=== PATIENT | male | born 1960 | race Caucasian/White ===

== ENCOUNTER 2024-06-04 14:09 | Observation (INO) | payer MEDICARE, MEDICAID, SELFPAY ==
[2024-06-04] VITALS (9 sets, daily range): BP systolic 122–136; BP diastolic 70–78; PULSE 68–94; TEMP 36.4–36.7; O2SAT 66–99; BMI 31.4; BMI 32.5
--- NOTE | 2024-06-04 14:24 | US_ITS ---
The [address] [address] Patient Name: ROD KAYE MRN: [id number] date: 1960 Sex: M Assigned Patient Location: ED.MAIN Current Patient Location: ER Accession/Order Number: [id number] Exam Date: 06/04/2024 14:30 Report Date: 06/04/2024 15:52 At the request of: FANNIE PEDRO Procedure: US renal bladder EXAMINATION: US renal bladder HISTORY: kidney stone hx flank pain us kidney and bladder COMPARISON: No relevant comparison available. TECHNIQUE: Ultrasound examination was performed of the kidneys and urinary bladder. FINDINGS: RIGHT KIDNEY: Moderate hydronephrosis. Moderate cortical thinning, 6 mm in thickness. Contain several nonobstructing small stones. Thinly septated, slightly complex 4.1 cm cyst projecting from mid body. Color Doppler demonstrates blood flow within the kidney. Kidney: 12.4 x 5.1 x 7.0 cm LEFT KIDNEY: Contains a nonobstructing 3 mm stone. Normal parenchymal echogenicity. Color Doppler demonstrates blood flow within the kidney. Kidney: 11.2 x 4.8 x 6.0 cm BLADDER: No visible wall thickening, mass, or calculi. URETERAL JETS: No right ureteral jet. Visualized on left. US/US renal bladder IMPRESSION: 1. Moderate right hydronephrosis and absence of a right ureteral jet within the urinary bladder suggests ureteral obstruction. 2. Bilateral nephrolithiasis. Electronically authenticated by: ALFREDO LEWIS Date: 06/04/2024 15:52
[2024-06-04] MEDS: KETOROLAC TROMETHAMINE 30 MG/ML VIAL IVP (14:33)
[2024-06-04] MEDS: ONDANSETRON PF 4 MG/2 ML VIAL IV (14:34)
[2024-06-04] MEDS: FAMOTIDINE/PF 20 MG/2 ML VIAL IV (14:34)
[2024-06-04] MEDS: 0.9 % SODIUM CHLORIDE 1,000 ML 1000 ML IV (14:34)
[2024-06-04 14:43] LABS: Basophils Percent Auto 0.3 % (0.2-2.0); Eosinophils Absolute Auto 0.1 10^3/uL (0.0-0.7); Eosinophils Percent Auto 0.6 % (0.9-7.0); Hematocrit 45.5 % (42.0-54.0); Hemoglobin 14.9 g/dL (14.0-18.0); Immature Granulocytes Abs Auto 0.04 10^3/uL (0.00-0.03); Immature Granulocytes Pct Auto 0.3 % (0.0-0.5); Lymphocytes Absolute Auto 1.9 10^3/uL (1.2-3.8); Lymphocytes Percent Auto 13.8 % (20.5-60.0); Mean Corpuscular HGB Conc 32.7 g/dL (29.9-35.2); Mean Corpuscular Hemoglobin 30.3 pg (25.9-34.0); Mean Corpuscular Volume 92.7 fL (80.0-94.0); Monocytes Absolute Auto 1.2 10^3/uL (0.3-0.8); Monocytes Percent Auto 8.2 % (1.7-12.0); Neutrophils Absolute Auto 10.7 10^3/uL (1.4-6.5); Neutrophils Percent Auto 76.8 % (43.0-75.0); Platelet Count 256 10^3/uL (150-450); Red Blood Count 4.91 10^6/uL (4.70-6.10); Red Cell Distribution Width 14.2 % (11.0-15.0)
--- NOTE | 2024-06-04 14:44 | ED.GENADUL1 ---
HPI HPI - General Adult General Chief complaint: Abdominal Pain Stated complaint: LOWER BACK PAIN Time Seen by Provider: 06/04/24 14:13 Source: patient Mode of arrival: ambulance Limitations: no limitations History of Present Illness HPI narrative: Patient is coming to the ER with 3 days history of right lower back pain as well as flank pain that radiating to the front of his abdomen. Patient mentioned that he have a history of kidney stone he usually follow-up with Dr. Heath but this been a while He denies any blood in urine, he mentioned he have some nausea denying any vomiting No history of trauma or fall Related Data Home Medications ?Medication ?Instructions ?Recorded ?Confirmed alprazolam 0.5 mg tablet 0.5 mg PO TID PRN anxiety 06/04/24 06/04/24 amlodipine 5 mg tablet 5 mg PO DAILY 06/04/24 06/04/24 aspirin 81 mg tablet,delayed 81 mg PO DAILY 06/04/24 06/04/24 release canagliflozin 100 mg tablet 100 mg PO DAILY 06/04/24 06/04/24 (Invokana) ergocalciferol (vitamin D2) 1,250 1,250 mcg PO QWEEK 06/04/24 06/04/24 mcg (50,000 unit) capsule glimepiride 1 mg tablet 1 mg PO DAILY 06/04/24 06/04/24 hydrocodone 5 mg-acetaminophen 325 1 tab PO Q4H PRN pain 06/04/24 06/04/24 mg tablet losartan 100 mg tablet 100 mg PO DAILY 06/04/24 06/04/24 omeprazole 20 mg capsule,delayed 20 mg PO DAILY 06/04/24 06/04/24 release propranolol 80 mg capsule,24 80 mg PO Q24H 06/04/24 06/04/24 hr,extended release semaglutide 14 mg tablet (Rybelsus) 14 mg PO DAILY 06/04/24 06/04/24 Allergies Allergy/AdvReac Type Severity Reaction Status Date / Time No Known Drug Allergies Allergy Verified 06/04/24 14:12 Opioid HPI Opioid Management Most Recent Opioid Data: Last Pain Scale 8 06/04/24 16:53 Last MAR Pain Assessment 06/04/24 16:53 Review of Systems ROS Status of ROS 10 or more systems reviewed and unremarkable except as noted in history and below [facility] Medical History (Updated 06/04/24 @ 16:38 by Amy Pelaez MD) History of diabetes mellitus ?Z86.39 - Personal history of other endocrine, nutritional and metabolic disease (ICD-10) History of hypertension ?Z86.79 - Personal history of other diseases of the circulatory system (ICD-10) History of kidney stones ?Z87.442 - Personal history of urinary calculi (ICD-10) Exam Narrative Exam Narrative: Nurses notes and vital signs reviewed and patient is not hypoxic. General: Well-appearing and in no apparent distress. Skin: Warm, dry, no pallor noted. No rash. Head: Normocephalic, atraumatic. Neck: Supple, non-tender. Eye: Pupils are equal, round and EOMI. No scleral icterus. Ears, Nose, Mouth, and Throat: TM are clear, no nasal mucosal hypertrophy. Oral mucosa is moist, no posterior oropharynx erythema, uvula is mid-line Cardiovascular: Regular Rate and Rhythm without murmur, gallop or rub. Respiratory: No accessory muscle use or respiratory distress. Lungs are clear to auscultation, no wheezing, rales or rhonchi Chest Wall: no tenderness Back: No midline thoracic or lumbar vertebral tenderness. Right CVA tenderness Musculoskeletal: normal ROM, no calf or popliteal tenderness, no lower extremity edema/swelling GI: Abdomen is soft, non-distended. Normal bowel sounds. No masses appreciated. No tenderness to palpation. No rebound, guarding, or rigidity noted. Neurological: A&O x4. No cranial nerve dysfunction observed. No truncal ataxia. Moves all extremities. Sensation intact. Psychiatric: Cooperative and interactive. Normal mood and affect. Constitutional Vital Signs, click to edit/add: Last Vital Signs Temp 98.1 F 06/04/24 14:12 Pulse 77 06/04/24 16:55 Resp 16 06/04/24 16:55 BP 131/70 06/04/24 16:55 Pulse Ox 97 06/04/24 16:55 O2 Del Method Room Air 06/04/24 16:55 Course Vital Signs Vital signs: Vital Signs Temperature 98.1 F 06/04/24 14:12 Pulse Rate 79 06/04/24 14:12 Respiratory Rate 20 06/04/24 14:12 Blood Pressure 136/70 06/04/24 14:12 Pulse Oximetry 96 06/04/24 14:12 Oxygen Delivery Method Room Air 06/04/24 14:12 Temperature 98.1 F 06/04/24 14:12 Pulse Rate 77 06/04/24 16:55 Respiratory Rate 16 06/04/24 16:55 Blood Pressure 131/70 06/04/24 16:55 Pulse Oximetry 97 06/04/24 16:55 Oxygen Delivery Method Room Air 06/04/24 16:55 Medical Decision Making MDM Narrative Medical decision making narrative: The patient CBC shows mild leukocytosis mostly is reactive Chemistry shows a chronic kidney disease although the patient mentioned that he does have a history of chronic kidney disease with no specific stage The patient pain was controlled with morphine 4 mg IV but it not enough and we have to give him Dilaudid 0.5 mg Ultrasound of the kidney that was done because the CAT scan is down shows hydronephrosis moderate on the right side I spoke with Dr. Shi after obtaining an ultrasound and explained to him that the patient have intractable pain specially that he was using Percocet at home with no effect of that on his pain In addition to the patient history of chronic kidney disease we want to make sure that there is no further damage with an immediate evaluation by urology And the plan was to admit under the hospitalist care Patient case was discussed with Dr. Ordaz and he agreed on admitting the patient Lab Data Labs: Lab Results 06/04/24 06/04/24 Range/Units 14:35 15:48 WBC 14.0 H (4.0-11.0) 10^3/uL RBC 4.91 (4.70-6.10) 10^6/uL Hgb 14.9 (14.0-18.0) g/dL Hct 45.5 (42.0-54.0) % MCV 92.7 (80.0-94.0) fL MCH 30.3 (25.9-34.0) pg MCHC 32.7 (29.9-35.2) g/dL RDW 14.2 (11.0-15.0) % Plt Count 256 (150-450) 10^3/uL MPV 10.0 (9.5-13.5) fL Neut % (Auto) 76.8 H (43.0-75.0) % Lymph % (Auto) 13.8 L (20.5-60.0) % [place] % (Auto) 8.2 (1.7-12.0) % Eos % (Auto) 0.6 L (0.9-7.0) % Baso % (Auto) 0.3 (0.2-2.0) % Neut # (Auto) 10.7 H (1.4-6.5) 10^3/uL Lymph # (Auto) 1.9 (1.2-3.8) 10^3/uL [place] # (Auto) 1.2 H (0.3-0.8) 10^3/uL Eos # (Auto) 0.1 (0.0-0.7) 10^3/uL Baso # (Auto) 0.0 (0.0-0.1) 10^3/uL Abs Immat Gran (auto) 0.04 H (0.00-0.03) 10^3/uL Imm/Tot Granulo (auto) 0.3 (0.0-0.5) % Sodium 141 (136-145) mmol/L Potassium 4.1 (3.5-5.1) mmol/L Chloride 108 H (98-107) mmol/L Carbon Dioxide 16.9 L (21.0-32.0) mmol/L Anion Gap 20.2 BUN 24.0 H (7.0-18.0) mg/dL Creatinine 1.91 H (0.70-1.30) mg/dL Est GFR ( Amer) 43 L (>=60) Est GFR (Non-Af Amer) 36 L (>=60) BUN/Creatinine Ratio 12.6 Glucose 153 H (74-106) mg/dL Calcium 9.1 (8.5-10.1) mg/dL Total Bilirubin 0.6 (0.2-1.0) mg/dL AST 16 (15-37) U/L ALT 31 (16-63) U/L Alkaline Phosphatase 112 (46-116) U/L Total Protein 7.3 (6.4-8.2) g/dL Albumin 3.7 (3.4-5.0) g/dL Globulin 3.6 g/dL Albumin/Globulin Ratio 1.0 Urine Color Yellow (YELLOW) Urine Clarity Clear (CLEAR) Urine pH 5.5 (5.0-9.0) Ur Specific [place] 1.025 (1.005-1.025) Urine Protein Trace (NEG/TRACE) mg/dL Urine Glucose (UA) >=1000 A (NEGATIVE) mg/dL Urine Ketones Negative (NEGATIVE) mg/dL Urine Occult Blood Moderate A (NEGATIVE) Urine Nitrite Negative (NEGATIVE) Urine Bilirubin Negative (NEGATIVE) Urine Urobilinogen 1.0 (0.2-1.0) EU/dL Ur Leukocyte Esterase Negative (NEGATIVE) Urine RBC 10-20 A (0-2) #/HPF Urine WBC 0-2 A (NONE SEEN) #/HPF Ur Squamous Epith Cells Rare (NONE/RARE) #/LPF Urine Crystals None seen (None Seen) #/HPF Urine Bacteria Trace A (NONE SEEN) #/HPF Urine Casts Seen A (NONE SEEN) #/LPF Hyaline Casts Rare Urine Mucus Trace A (NONE SEEN) Ur Culture Indicated? No Discharge Plan Discharge Chief Complaint: Abdominal Pain Clinical Impression: Intractable abdominal pain Hydronephrosis Qualifiers: Hydronephrosis type: with renal calculous obstruction Qualified Code(s): N13.2 - Hydronephrosis with renal and ureteral calculous obstruction CKD (chronic kidney disease) Qualifiers: Chronic kidney disease stage: unspecified stage Qualified Code(s): N18.9 - Chronic kidney disease, unspecified Patient Disposition: Admitted As Inpatient Time of Disposition Decision: 16:38
[2024-06-04 15:05] LABS: Alanine Aminotransferase 31 U/L (16-63); Albumin Level 3.7 g/dL (3.4-5.0); Alkaline Phosphatase 112 U/L (46-116); Anion Gap 20.2; Aspartate Amino Transferase 16 U/L (15-37); BUN Creatinine Ratio 12.6; Bilirubin Total 0.6 mg/dL (0.2-1.0); Calcium 9.1 mg/dL (8.5-10.1); Carbon Dioxide 16.9 mmol/L (21.0-32.0); Chloride 108 mmol/L (98-107); Estimated GFR (African America 43 (>=60); Estimated GFR (Non-African Ame 36 (>=60); Globulin 3.6 g/dL; Glucose 153 mg/dL (74-106); Potassium 4.1 mmol/L (3.5-5.1); Sodium 141 mmol/L (136-145); Total Protein 7.3 g/dL (6.4-8.2)
[2024-06-04] MEDS: MORPHINE SULFATE 4 MG/ML VIAL IV (15:13)
[2024-06-04 15:55] LABS: Bilirubin Urine NEGATIVE (NEGATIVE); Blood Urine MODERATE (NEGATIVE); Clarity Urine CLEAR (CLEAR); Color Urine YELLOW (YELLOW); Glucose Urine UA >=1000 mg/dL (NEGATIVE); Ketones Urine NEGATIVE (NEGATIVE); Leukocyte Esterase Urine NEGATIVE (NEGATIVE); Nitrite Urine NEGATIVE (NEGATIVE); Protein Urine TRACE mg/dL (NEG/TRACE); Specific Gravity Urine 1.025 (1.005-1.025); pH Urine 5.5 (5.0-9.0)
[2024-06-04 15:56] LABS: Urine Microscopic Indicated YES
[2024-06-04 16:11] LABS: Bacteria Urine TRACE #/HPF (NONE SEEN); Crystals Seen? None Seen #/HPF (None Seen); Mucus Urine TRACE (NONE SEEN); Squamous Epithelial Cell Urine RARE #/LPF (NONE/RARE); WBC Urine 0-2 #/HPF (NONE SEEN)
[2024-06-04 16:12] LABS: Cast Seen? SEEN #/LPF (NONE SEEN); Hyaline Casts Urine RARE; Urine Culture Indicated NO
[2024-06-04] MEDS: HYDROMORPHONE HCL 0.5 MG/0.5 ML SYRINGE IV ×2 (16:53→21:02)
--- NOTE | 2024-06-04 18:19 | P.HP_ITS ---
HPI H&P: HPI History of Present Illness Chief complaint: Low Back Pain,Rt Hydronephoris,Chronic Kidney Dis Narrative: Patient presented to the emergency room with right flank pain. He does have a history of nephrolithiasis. He has had lithotripsy on the left side in the past. He had a known stone in the right side. Started having increasing pain consistent with his passing a kidney stone. He states the kidney stone on the right side is 13 mm in size. In ER patient had ultrasound, unable to do CT due to equipment malfunction, ultrasound does confirm the hydronephrosis which is likely result of him trying to pass the large kidney stone. Patient admitted for surgical intervention tomorrow. When I saw patient in the emergency room, he was fairly comfortable and but had already been medicated with significant pain medications. Described his long history of nephrolithiasis. Also has a history of chronic kidney disease stage IV-his creatinine in ER really not too bad for stage IV. Patient will be admitted for workup and treatment of the nephrolithiasis. Opioid HPI Opioid Management Most Recent Pain and Opioid Data: Last Pain Scale 8 06/04/24 16:53 Last MAR Pain Assessment 06/04/24 16:53 Last ORT Total Score 6 06/04/24 18:31 Last ORT Risk Category Moderate Risk 06/04/24 18:31 Review of Systems ROS Status of ROS 10 or more systems reviewed and unremark able except as noted in history and below PFSH PFSH Medical History (Updated 06/04/24 @ 18:22 by Marisol Lacey) Hyperlipidemia ?E78.5 - Hyperlipidemia, unspecified (ICD-10) Chronic kidney disease (CKD) ?N18.9 - Chronic kidney disease, unspecified (ICD-10) CVA (cerebral vascular accident) ?I63.9 - Cerebral infarction, unspecified (ICD-10) History of diabetes mellitus ?Z86.39 - Personal history of other endocrine, nutritional and metabolic disease (ICD-10) History of hypertension ?Z86.79 - Personal history of other diseases of the circulatory system (ICD-10) History of kidney stones ?Z87.442 - Personal history of urinary calculi (ICD-10) Surgical History (Updated 06/04/24 @ 18:22 by Marisol Lacey) H/O lithotripsy ?Z98.890 - Other specified postprocedural states (ICD-10) Family History (Updated 06/04/24 @ 18:24 by Marisol Lacey) Brother Family history of diabetes mellitus Social History (Updated 06/04/24 @ 18:25 by Marisol Lacey) Within the past year, how often did you have a drink containing alcohol: never Within the past year, how often did you have six or more drinks on one occasion: never Score interpretation: A score less than 4 is consistent with normal alcohol consumption. Smoking status: Former smoker Non-prescribed substance use: denies use Previous occupational history: disability Highest level of school completed/degree received: Bachelor's degree Are you now , , , , never or living with a partner: In a typical week, how many times do you talk on the telephone with family, friends, or neighbors: never How often do you get together with friends or relatives: never How often do you attend yazidi or yarsanism services: never Do you belong to any clubs or organizations such as yazidi groups unions, [email or web address] or athletic groups, or school groups: no Total score: 0 Score interpretation: A score of less than or equal to 1 indicates the most socially isolated. Little interest or pleasure in doing things: not at all Feeling down, depressed, or hopeless: not at all Feel stressed/tense/nervous/anxious/difficulty sleeping: not at all Gender Identity: male Meds Home Medications and Allergies Home Medications ?Medication ?Instructions ?Recorded ?Confirmed ?Type alprazolam 0.5 mg tablet 0.5 mg PO TID PRN anxiety 06/04/24 06/04/24 History amlodipine 5 mg tablet 5 mg PO DAILY 06/04/24 06/04/24 History aspirin 81 mg tablet,delayed 81 mg PO DAILY 06/04/24 06/04/24 History release atorvastatin 40 mg tablet 40 mg PO .qhs 06/04/24 06/04/24 History canagliflozin 100 mg tablet 100 mg PO DAILY 06/04/24 06/04/24 History (Invokana) ergocalciferol (vitamin D2) 1,250 1,250 mcg PO QWEEK 06/04/24 06/04/24 History mcg (50,000 unit) capsule glimepiride 1 mg tablet 1 mg PO DAILY 06/04/24 06/04/24 History hydrocodone 5 mg-acetaminophen 325 2 tab PO Q4H PRN pain 06/04/24 06/04/24 History mg tablet losartan 100 mg tablet 100 mg PO DAILY 06/04/24 06/04/24 History omeprazole 20 mg capsule,delayed 20 mg PO DAILY 06/04/24 06/04/24 History release propranolol 80 mg capsule,24 80 mg PO Q24H 06/04/24 06/04/24 History hr,extended release semaglutide 14 mg tablet (Rybelsus) 14 mg PO DAILY 06/04/24 06/04/24 History Allergies Allergy/AdvReac Type Severity Reaction Status Date / Time No Known Drug Allergies Allergy Verified 06/04/24 14:12 Exam Constitutional Vital Signs, click to edit/add: Last Vital Signs Temp 98.1 F 06/04/24 14:12 Pulse 77 06/04/24 16:55 Resp 16 06/04/24 16:55 BP 131/70 06/04/24 16:55 Pulse Ox 97 06/04/24 16:55 O2 Del Method Room Air 06/04/24 16:55 Documenting provider has reviewed patient's vital signs: yes Common normals: no apparent distress (No distress, he had been medicated already) Chest Common normals: inspection of chest normal Respiratory Common normals: normal respiratory effort and no retractions Cardio Common normals: regular rate, regular rhythm and S1 normal heart sound GI Common normals: Normal to inspection, nondistended, normoactive bowel sounds present Neuro Common normals: oriented x3, CN's II-XII intact bilaterally and moves all extremities Results Labs Labs: Short CBC 06/04/24 Range/Units 14:35 WBC 14.0 H (4.0-11.0) 10^3/uL Hgb 14.9 (14.0-18.0) g/dL Hct 45.5 (42.0-54.0) % Plt Count 256 (150-450) 10^3/uL BMP 06/04/24 14:35 Sodium 141 Potassium 4.1 Chloride 108 H Carbon Dioxide 16.9 L BUN 24.0 H Creatinine 1.91 H Glucose 153 H Calcium 9.1 Liver Function 06/04/24 Range/Units 14:35 Total Bilirubin 0.6 (0.2-1.0) mg/dL AST 16 (15-37) U/L ALT 31 (16-63) U/L Alkaline Phosphatase 112 (46-116) U/L Albumin 3.7 (3.4-5.0) g/dL Urine 06/04/24 Range/Units 15:48 Urine Color Yellow (YELLOW) Urine Clarity Clear (CLEAR) Urine pH 5.5 (5.0-9.0) Ur Specific [place] 1.025 (1.005-1.025) Urine Protein Trace (NEG/TRACE) mg/dL Urine Glucose (UA) >=1000 A (NEGATIVE) mg/dL Assessment and Plan Assessment and Plan (1) Intractable abdominal pain: (2) CKD (chronic kidney disease): Qualifiers: Chronic kidney disease stage: unspecified stage Qualified Code(s): N18.9 - Chronic kidney disease, unspecified (3) Hydronephrosis: Qualifiers: Hydronephrosis type: with renal calculous obstruction Qualified Code(s): N13.2 - Hydronephrosis with renal and ureteral calculous obstruction Plan Admission findings: Leukocytosis and elevated BUN and creatinine, probably at his baseline, intractable right flank pain secondary to nephrolithiasis which is resulted in moderate hydronephrosis-IV fluids, Levsin, Flomax, consultation to urology for likely intervention tomorrow. Nephrolithiasis-plan as outlined above Leukocytosis-this may be pain related, but with significant hydronephrosis will start patient on antibiotics pending blood and urine cultures. Check lactate Chronic kidney disease stage IV-his creatinine is actually pretty good for that. Monitor daily. Hypertension-continue with home medications NIDDM-insulin sliding scale holding diabetes medications tonight as he will be n.p.o. at midnight History of CVA with resultant right-sided weakness-much improved from previous this is about 5 years ago Admission status: Patient with current history of nephrolithiasis. Likely surgical intervention tomorrow. Likely discharge home tomorrow. With medically necessary treatment only spanning 1 midnight. Observation status.
[2024-06-04 18:40] LABS: Lactate/Lactic Acid 1.9 mmol/L (0.4-2.0)
[2024-06-04] MEDS: TRAMADOL HCL 50 MG TABLET PO (19:38)
[2024-06-04] MEDS: LACTATED RINGER'S SOLUTION 1,000 ML 100 ML IV (19:38)
[2024-06-04 20:18] LABS: Glucometer 126 mg/dL (74-106)
[2024-06-04] MEDS: CEFTRIAXONE 1,000 MG in 0.9 % SODIUM CHLORIDE 50 ML 100 MG IV (21:01)
[2024-06-04] MEDS: ALPRAZOLAM 0.5 MG TABLET PO (21:02)
[2024-06-04] MEDS: TAMSULOSIN HCL 0.4 MG CAPSULE PO (21:02)
[2024-06-04] MEDS: HYOSCYAMINE SULFATE 0.125 MG TAB.SUBL 0.25 MG SL (21:02)
[2024-06-04] MEDS: ATORVASTATIN CALCIUM 40 MG TABLET PO (21:02)
[2024-06-05] VITALS (20 sets, daily range): BP systolic 111–137; BP diastolic 66–87; PULSE 62–97; TEMP 36.6–36.8; O2SAT 91–97
--- NOTE | 2024-06-05 | FL_ITS ---
[address] [address] Patient Name: ROD KAYE MRN: [id number] date: 1960 Sex: M Assigned Patient Location: [place] Current Patient Location: [place] Accession/Order Number: [id number] Exam Date: 06/05/2024 12:30 Report Date: 06/16/2024 08:18 At the request of: LEXA ANAYA Procedure: FL fluoroscopy <1hr NON-READ EXAM: FL fluoroscopy <1hr NON-READ HISTORY: TECHNIQUE: FINDINGS: Please see Operative Report. Electronically authenticated by: RADIOLOGIST NO Date: 06/16/2024 08:18
[2024-06-05] MEDS: HYDROMORPHONE HCL 0.5 MG/0.5 ML SYRINGE IV ×2 (01:07→08:21)
[2024-06-05 05:41] LABS: Basophils Absolute Auto 0.1 10^3/uL (0.0-0.1); Basophils Percent Auto 0.5 % (0.2-2.0); Eosinophils Absolute Auto 0.2 10^3/uL (0.0-0.7); Eosinophils Percent Auto 1.7 % (0.9-7.0); Hematocrit 43.1 % (42.0-54.0); Hemoglobin 13.4 g/dL (14.0-18.0); Immature Granulocytes Abs Auto 0.02 10^3/uL (0.00-0.03); Immature Granulocytes Pct Auto 0.2 % (0.0-0.5); Lymphocytes Absolute Auto 2.7 10^3/uL (1.2-3.8); Lymphocytes Percent Auto 29.6 % (20.5-60.0); Mean Corpuscular HGB Conc 31.1 g/dL (29.9-35.2); Mean Corpuscular Hemoglobin 30.5 pg (25.9-34.0); Mean Platelet Volume 10.2 fL (9.5-13.5); Monocytes Percent Auto 10.5 % (1.7-12.0); Neutrophils Absolute Auto 5.3 10^3/uL (1.4-6.5); Neutrophils Percent Auto 57.5 % (43.0-75.0); Platelet Count 165 10^3/uL (150-450); Red Cell Distribution Width 14.4 % (11.0-15.0); White Blood Count 9.3 10^3/uL (4.0-11.0)
[2024-06-05 05:56] LABS: Alanine Aminotransferase 23 U/L (16-63); Albumin Globulin Ratio 0.9; Albumin Level 3.1 g/dL (3.4-5.0); Alkaline Phosphatase 92 U/L (46-116); Anion Gap 16.1; Aspartate Amino Transferase 14 U/L (15-37); BUN Creatinine Ratio 12.2; Bilirubin Total 0.3 mg/dL (0.2-1.0); Calcium 8.4 mg/dL (8.5-10.1); Carbon Dioxide 20.3 mmol/L (21.0-32.0); Chloride 110 mmol/L (98-107); Estimated GFR (African America 42 (>=60); Estimated GFR (Non-African Ame 34 (>=60); Globulin 3.3 g/dL; Glucose 110 mg/dL (74-106); Potassium 4.4 mmol/L (3.5-5.1); Sodium 142 mmol/L (136-145); Total Protein 6.4 g/dL (6.4-8.2)
[2024-06-05] MEDS: LACTATED RINGER'S SOLUTION 1,000 ML 100 ML IV (06:05)
[2024-06-05] MEDS: HYOSCYAMINE SULFATE 0.125 MG TAB.SUBL 0.25 MG SL (06:06)
[2024-06-05] MEDS: OMEPRAZOLE 20 MG CAPSULE.DR PO (06:06)
[2024-06-05] MEDS: ALPRAZOLAM 0.5 MG TABLET PO (06:10)
[2024-06-05 07:36] LABS: Glucometer 101 mg/dL (74-106)
--- NOTE | 2024-06-05 08:19 | P.DS_ITS ---
DS: Providers Provider Date of admission: 06/04/24 18:05 Primary care physician: GANGA HERNANDEZ Consults: 06/04/24 16:35 Consult to Urology Routine Consulting Provider: Norris Shi Reason for consultation: hydronephrosis Has provider been notified: Yes 06/04/24 18:13 Consult to Pharmacy Routine Consulting Provider: Reason for consultation: Please [place] me when Med Rec is Updated Has provider been notified: No Consult to Urology Routine Consulting Provider: Norris Shi Reason for consultation: Kidney stone Has provider been notified: Yes DS: Diagnosis Discharge Diagnosis (1) Intractable abdominal pain: (2) CKD (chronic kidney disease): Qualifiers: Chronic kidney disease stage: unspecified stage Qualified Code(s): N18.9 - Chronic kidney disease, unspecified (3) Hydronephrosis: Qualifiers: Hydronephrosis type: with renal calculous obstruction Qualified Code(s): N13.2 - Hydronephrosis with renal and ureteral calculous obstruction Plan Admission findings: Leukocytosis and elevated BUN and creatinine, probably at his baseline, intractable right flank pain secondary to nephrolithiasis which is resulted in moderate hydronephrosis-IV fluids, Levsin, Flomax, consultation to urology for likely intervention today Nephrolithiasis-plan as outlined above Leukocytosis-resolved at dc Chronic kidney disease stage IV-his creatinine is actually pretty good for that. Monitor daily. Hypertension-continue with home medications NIDDM-insulin sliding scale holding diabetes medications tonight as he will be n.p.o. at midnight History of CVA with resultant right-sided weakness-much improved from previous this is about 5 years ago Admission status: Patient with current history of nephrolithiasis. Likely surgical intervention tomorrow. Likely discharge home tomorrow. With medically necessary treatment only spanning 1 midnight. Observation status. DS: Summary Hospital Course Hospital Course: Admission findings: Leukocytosis and elevated BUN and creatinine, probably at his baseline, intractable right flank pain secondary to nephrolithiasis which is resulted in moderate hydronephrosis-treated overnight with IV fluids, we did start IV antibiotics secondary to the significant leukocytosis with left shift, he received Rocephin, CT scan today did show a 10 mm obstructing stone. Plan is for surgical intervention later today. If stable after that procedure and no further testing necessary from a urology standpoint, he will be discharged to home in improving condition. Medications see list. Follow-up with his PCP within the next week. Time Spent with Patient Time attestation: Total time spent providing and/or coordinating discharge services: Exam Constitutional Vital Signs, click to edit/add: Last Vital Signs Temp 98.2 F 06/05/24 07:36 Pulse 80 06/05/24 07:36 Resp 16 06/05/24 07:36 BP 137/81 06/05/24 07:36 Pulse Ox 96 06/05/24 07:36 O2 Del Method Room Air 06/05/24 07:36 Documenting provider has reviewed patient's vital signs: yes Common normals: no apparent distress (Received pain medications about 5 hours ago) Chest Common normals: inspection of chest normal Respiratory Common normals: normal respiratory effort and no retractions Cardio Common normals: regular rate, regular rhythm and S1 normal heart sound GI Common normals: Normal to inspection, nondistended, normoactive bowel sounds present Neuro Common normals: oriented x3, CN's II-XII intact bilaterally and moves all extremities DS: Data Data Completed and Pending Labs on day of discharge: Labs from last 24 hours 06/05/24 06/05/24 06/04/24 07:35 05:29 20:17 WBC 9.3 RBC 4.40 L Hgb 13.4 L Hct 43.1 MCV 98.0 H MCH 30.5 MCHC 31.1 RDW 14.4 Plt Count 165 MPV 10.2 Neut % (Auto) 57.5 Lymph % (Auto) 29.6 [place] % (Auto) 10.5 Eos % (Auto) 1.7 Baso % (Auto) 0.5 Neut # (Auto) 5.3 Lymph # (Auto) 2.7 [place] # (Auto) 1.0 H Eos # (Auto) 0.2 Baso # (Auto) 0.1 Abs Immat Gran (auto) 0.02 Imm/Tot Granulo (auto) 0.2 Sodium 142 Potassium 4.4 Chloride 110 H Carbon Dioxide 20.3 L Anion Gap 16.1 BUN 24.0 H Creatinine 1.96 H Est GFR ( Amer) 42 L Est GFR (Non-Af Amer) 34 L BUN/Creatinine Ratio 12.2 Glucose 110 H Lactate Calcium 8.4 L Total Bilirubin 0.3 AST 14 L ALT 23 Alkaline Phosphatase 92 Total Protein 6.4 Albumin 3.1 L Globulin 3.3 Albumin/Globulin Ratio 0.9 Urine Color Urine Clarity Urine pH Ur Specific [place] Urine Protein Urine Glucose (UA) Urine Ketones Urine Occult Blood Urine Nitrite Urine Bilirubin Urine Urobilinogen Ur Leukocyte Esterase Urine RBC Urine WBC Ur Squamous Epith Cells Urine Crystals Urine Bacteria Urine Casts Hyaline Casts Urine Mucus Ur Culture Indicated? POC Glucose 101 126 H 06/04/24 06/04/24 15:48 14:35 WBC 14.0 H RBC 4.91 Hgb 14.9 Hct 45.5 MCV 92.7 MCH 30.3 MCHC 32.7 RDW 14.2 Plt Count 256 MPV 10.0 Neut % (Auto) 76.8 H Lymph % (Auto) 13.8 L [place] % (Auto) 8.2 Eos % (Auto) 0.6 L Baso % (Auto) 0.3 Neut # (Auto) 10.7 H Lymph # (Auto) 1.9 [place] # (Auto) 1.2 H Eos # (Auto) 0.1 Baso # (Auto) 0.0 Abs Immat Gran (auto) 0.04 H Imm/Tot Granulo (auto) 0.3 Sodium 141 Potassium 4.1 Chloride 108 H Carbon Dioxide 16.9 L Anion Gap 20.2 BUN 24.0 H Creatinine 1.91 H Est GFR ( Amer) 43 L Est GFR (Non-Af Amer) 36 L BUN/Creatinine Ratio 12.6 Glucose 153 H Lactate 1.9 Calcium 9.1 Total Bilirubin 0.6 AST 16 ALT 31 Alkaline Phosphatase 112 Total Protein 7.3 Albumin 3.7 Globulin 3.6 Albumin/Globulin Ratio 1.0 Urine Color Yellow Urine Clarity Clear Urine pH 5.5 Ur Specific [place] 1.025 Urine Protein Trace Urine Glucose (UA) >=1000 A Urine Ketones Negative Urine Occult Blood Moderate A Urine Nitrite Negative Urine Bilirubin Negative Urine Urobilinogen 1.0 Ur Leukocyte Esterase Negative Urine RBC 10-20 A Urine WBC 0-2 A Ur Squamous Epith Cells Rare Urine Crystals None seen Urine Bacteria Trace A Urine Casts Seen A Hyaline Casts Rare Urine Mucus Trace A Ur Culture Indicated? No POC Glucose Discharge Plan Discharge Disposition: Home, Self-Care Discharge Medications: Continued alprazolam 0.5 mg tablet 0.5 mg PO TID PRN (Reason: anxiety) amlodipine 5 mg tablet 5 mg PO DAILY hydrocodone-acetaminophen 5-325 mg tablet 2 tab PO Q4H PRN (Reason: pain) glimepiride 1 mg tablet 1 mg PO DAILY omeprazole 20 mg capsule,delayed release(DR/EC) 20 mg PO DAILY Rybelsus 14 mg tablet 14 mg PO DAILY ergocalciferol (vitamin D2) 1,250 mcg (50,000 unit) capsule 1,250 mcg PO QWEEK Invokana 100 mg tablet 100 mg PO DAILY propranolol 80 mg capsule,extended release 24 hr 80 mg PO Q24H losartan 100 mg tablet 100 mg PO DAILY aspirin 81 mg tablet,delayed release (DR/EC) 81 mg PO DAILY atorvastatin 40 mg tablet 40 mg PO .[facility] Print Language: Hungarian Forms: Portal Instructions
--- NOTE | 2024-06-05 08:20 | CT_ITS ---
[address] [address] Patient Name: ROD KAYE MRN: [id number] date: 1960 Sex: M Assigned Patient Location: [place] Current Patient Location: Accession/Order Number: [id number] Exam Date: 06/05/2024 08:35 Report Date: 06/05/2024 09:09 At the request of: LEXA ANAYA Procedure: CT abdomen pelvis wo con EXAMINATION: CT abdomen pelvis wo con HISTORY: Dr Shi requested for kidney stone COMPARISON: No relevant comparison available. TECHNIQUE: Axial, Coronal, and Sagittal images were obtained without and/or with IV contrast as indicated by examination type. Dose reduction techniques were achieved by using automated exposure control and/or adjustment of mA and/or kV according to patient size and/or use of iterative reconstruction technique. FINDINGS: LUNG BASES: Thick curvilinear stranding within posterior left lung base favoring scarring or discoid atelectasis. LIVER: No enlargement, atrophy, suspicious density, or significant focal lesion. BILIARY: No dilatation or calcification. PANCREAS: No lesion, fluid collection, or abnormal duct dilatation. SPLEEN: No enlargement or focal lesion. ADRENALS: No mass or enlargement. KIDNEYS: Moderate dilation of right renal pelvis, calyces, and proximal ureter secondary to an obstructing 10 x 10 x 7 mm stone within mid ureter. Additional small nonobstructing stones bilaterally. Complex 4.7 cm cyst within right kidney. BOWEL/MESENTERY: No visible mass, obstruction, or bowel wall thickening. AORTA/VASCULAR: No aneurysm or dissection. RETROPERITONEUM: No mass or adenopathy. LYMPH NODES: No adenopathy. URINARY BLADDER: No visible focal wall thickening, lesion, or calculus. PELVIC ORGANS: No visible mass. Pelvic organs appropriate for patient age. ABDOMINAL WALL: No mass or hernia. BONES: No bony lesion or fracture. OTHER: Negative. CT/CT abdomen pelvis wo con IMPRESSION: 1. Moderate right hydronephrosis secondary to an obstructing 10 x 10 x 7 mm stone within the mid ureter. 2. Thinly septated complex cyst within right kidney, 4.4 cm. Consider follow-up CT abdomen with IV contrast for further evaluation. Electronically authenticated by: ALFREDO LEWIS Date: 06/05/2024 09:09
[2024-06-05] MEDS: PROPRANOLOL HCL 80 MG CAP.24H PO (08:21)
--- NOTE | 2024-06-05 08:43 | CM.NOTE ---
Rounds made with Dr. Ordaz, consult to Dr. Shi and planned OR today. Dr. Ordaz txt Dr. Shi for OR time and waiting response. Pt possible discharge this evening after procedure.
--- OUTSIDE RECORDS SUMMARY | 2024-06-05 08:47 | XMS_ITS | CCD ---
Author Organization [facility] Inform ion Partnership [facility] Care Team Providers Care Media Arts Professor Name Role Phone DR ALFREDO LEWIS Consulting Unavailable LISETTE, DR CHANG Attending Unavailable LISETTE, DR CHANG Admitting [facility] CULVER Primary Care Unavailable LISETTE, DR CHANG Consulting Unavailable DENIZ FAN Consulting Unavailable Mart Henry Unavailable [facility], . Primary Care Physician [phone] [facility] Primary Care Provider [phone] MD Mart Henry Attending Provider [phone] DO Terell Amor Jr Attending Provider DO César Arreaga Emergency Provider MD Ganga Hernandez Primary Care Provider MD Mark Anthony Heath Attending Provider MD Zheng Iraheta Attending Provider [facility] Primary Care Provider MD Mart Henry Attending Provider [phone] Brandon Castañeda Unavailable MD Ganga Hernandez Primary Care Provider MD Zheng Iraheta Attending Provider DO Spike Estrada Emergency Provider MD Shaila Bowen Admit Provider MD Shaila Bowen Attending Provider [phone] DO Mikey Rose Other Provider DO Terell Amor Jr Attending Provider MD Ganga Hernandez Primary Care Provider MD Mark Anthony Heath Attending Provider DO Spike Estrada Emergency Provider Unavailab Ganga Ramirez Unavailable MD Ganga Hernandez Primary Care Provider [phone] MD Deniz Lacey Emergency Provider MD Lilia Bowers Admit Provider MD Lilia Bowers Attending Provider MARIA EUGENIA Evans Other Provider Unavailable DO Lars Jefferson Other Provider MD Nilo Mcbride Other Provider MD Demarco Justin Other Provider MD Joann Hopson Other Provider MD Kenny Alexander Other Provider CYDNEY Balbuena Other Provider MD Sarita Johnson Other Provider MD Caitlin Doammed Naruht Other Provider MD Sandy Hamilton Other Provider Juan [facility] Jeanne Guzman Other Provider [phone] MD Roxy Sandoval Other Provider MD Mark Anthony Heath Attending Provider [phone] DEMARCO JEFFERSON Attending Unavailable Dr. Ganga Hernandez Primary Care Unavailab DEMARCO Sierra Attending Unavailable Dr. Ganga Hernandez Primary Care Unavailab Mark Anthony Still Attending Unavailable Mark Anthony HEATH Attending Unavailable Mark Anthony HEATH Attending Unavailable MD Ganga Hernandez Primary Care Provider MD Mark Anthony Heath Attending Provider DO César Arreaga Emergency Provider MD Shaila Bowen Admit Provider MD Shaila Bowen Attending Provider DO Mikey Rose Other Provider DO Jose Merino Emergency Provider David, Dr. Ganga Everett Primary Care Unavailab sanna Jefferson, Dr. Demarco Bauer Attending Wallowava ilchayito Hernandez, Dr. Ganga Everett Primary Care Unavailab sanna Jefferson, Dr. Demarco Bauer Attending Wall[place]ava ilchayito Hernandez, Dr. Ganga Everett Primary Care Unavailab sanna Jefferson, Dr. Demarco Bauer Referring Unava ilable Cook, Mark Anthony Child Admitting Unavailable Cook, Mark Anthony Child Attending Unavailable Hill, Ganga Primary Care Unavailable Cook, Mark Anthony P Admitting Unavailable Cook, Mark Anthony P Attending Unavailable [place], Ganga Primary Care Unavailable Jessi, Shaila Attending Unavailable [place], Ganga Primary Care Unavailable Mikey Rose Consulting Unavailable Wasnaseem, Shaila Admitting Unavailable Cook, Mark Anthony Child Admitting Unavailable Cook, Mark Anthony Child Attending Unavailable [place], Ganga Primary Care Unavailable Mary, Jose Caputo Admitting Unavailable Mary, Jose Caputo Attending Unavailable David, Ganga Primary Care Unavailable DAVID, GANGA Guzman Attending Unavailable GRAFTON, GANGA Guzman Referring Unavailable GRAFTON, GANGA Guzman Attending Unavailable GRAFTON, GANGA Guzman Attending Unavailable GRAFTON, GANGA Guzman Referring Unavailable Allergies Allergy Classification Reported Allergen(s) Allergy Type Date of Onset Reaction(s) Facility (1 source) No Known Medication Allergies; Translations: [No Known Medication Allergies] Propensity to adverse reactions (disorder) [facility] Repository Medications Current Medications Medication Drug Class(es) Dates Sig (Normalized) Sig (Original) acetaminophen 325 mg / HYDROcodone bitartrate 5 mg oral tablet (20 sources) Opioid Agonist Start: 10-02-2022 take 1 tablet by mouth twice daily Hydrocodone-Aceta minophen Active 1 TAB PO Twice daily October 02, 2022 12:00am Hip pain Start: 08-30-2022 take 1 tablet by macario th twice daily as needed HYDROcodone-Acetaminophen 5-325 MG 1 tab let as needed orally twice daily for 30 days G89.29 Chronic pain Aug, Active Start: 07-26-2022 End: 10-02-2022 take 1 tablet by mouth every six hours Hydrocodone-Acetaminophen Discontinued 1 TAB PO Q6H 28 7 July 26, 2022 October 02, 2022 1:11pm Start: 05-19-2022 End: 10-01-2022 take 1 tablet by mouth every four to six hours Hydrocodone-Acetaminophen Discontinued 1 TAB PO EVERY 4-6 HOURS 10 3 May 24, 2022 June 15, 2022 11:56am acetaminophen 325 mg / oxyCODONE hydrochloride 5 mg oral tablet (1 source) Opioid Agonist Start: 05-22-2022 End: 05-25-2022 take 1 tablet by mouth every four hours for pain acetaminophen-oxycodone 325 mg-5 mg oral tablet 1 tab(s), Oral, q4hr for pain for 3 day(s), 12 tab(s), Refill(s) 0, N20.0, [facility] [id number], 182, cm, 05/22/22 11:13:00 EDT, Height/Length Dosing, 114, kg, 05/22/22 11:13:00 EDT, Weight Dosing Start Date: 05/22/22 Stop Date: 05/25/22 Status: Ordered ALPRAZolam 0.5 mg oral tablet (3 sources) Benzodiazepine Start: 06-07-2023 take 0.5 mg by mouth every eight hours Alprazolam Active 0.5 MG PO Q8H June 07, 2023 12:00am amitriptyline hydrochloride 25 mg oral tablet (6 sources) Tricyclic Antidepressant Amitriptyline HCl 25 MG Oral for 30 Active amLODIPine 5 mg oral tablet (20 sources) Dihydropyridine Calcium Channel Irena Start: 02-22-2021 take 5 mg by mouth once daily in the morning Amlodipine Active 5 MG PO Every morning February 22, 2021 12:00am aspirin 81 mg oral tablet (20 sources) Platelet Aggregation Inhibitor, Nonsteroidal Anti-inflammatory Drug Start: 10-02-2022 take 81 mg by mouth once daily in the morning Aspirin Active 81 MG PO Every morning October 02, 2022 1:00am Start: 10-31-2020 take 1 tablet by macario th once daily aspirin 81 mg oral tablet 1 tab, Oral, Daily, Blood Thinner Start Date: 10/31/20 Status: Ordered Start: 11-06-2018 End: 05-24-2022 take 81 mg by mouth once daily Aspirin Discontinued 81 MG PO Daily November 06, 2018 1:00am May 24, 2022 1:00pm atorvastatin 40 mg oral tablet (20 sources) HMG-CoA Reductase Inhibitor Start: 11-06-2018 End: 07-12-2022 take 1 tablet by mouth once daily in the evening Atorvastatin (Lipitor) 40 mg tablet Active 40 MG PO Every evening July 12, 2022 1:24pm Start: 11-04-2018 End: 11-06-2018 take 10 mg by mouth once daily Atorvastatin Discontinu ed 10 MG PO Daily November 04, 2018 1:00am November 06, 2018 2:03pm busPIRone hydrochloride 15 mg oral tablet (4 sources) Start: 06-07-2023 take 15 mg by mouth twice daily Buspirone Active 15 MG PO Twice daily June 07, 2023 12:00am take 1 tablet by mouth twice michaela ly busPIRone HCl - 7.5 MG Oral Tablet Take 1 tablet twice daily Quantity: 0 Refills: 0 Ordered: 11-Apr-2023 DO Active Celebrate Multivitamin oral capsule (1 source) Start: 10-31-2020 take 1 capsule by mouth once daily Celebrate Multivitamin oral capsule 1 cap(s), Oral, Daily, Prophylaxis Start Date: 10/31/20 Status: Ordered methylPREDNISolone 4 mg oral tablet (2 sources) Corticosteroid Start: 04-19-2022 Medrol (Luis Miguel) 4 MG as directed Orally for 6 days Mar, Active 24 hr propranolol hydrochloride 80 mg extended release oral capsule (5 sources) beta-Adrenergic Irena Start: 07-13-2023 End: 07-24-2023 take 80 mg by mouth once daily Propranolol Active 80 MG PO Daily July 24, 2023 12:00am Rybelsus (1 source) Rybelsus Active semaglutide 7 mg oral tablet (5 sources) Start: 02-05-2023 take 1 tablet by mouth once daily Semaglutide (Rybelsus) 7 mg Tablet Active 7 MG PO Daily February 05, 2023 12:00am Completed/Discontinued Medications Medication Drug Class(es) Dates Sig (Normalized) Sig (Original) acetaminophen 500 mg oral tablet (15 sources) Start: 11-08-2018 End: 05-11-2019 take 1000 mg by mouth every six hours Acetaminophen Discontinued 1000 MG PO Q6H 0 November 08, 2018 1:00am May 11, 2019 5:35pm canagliflozin 100 mg oral tablet (20 sources) Sodium-Glucose Cotransporter 2 Inhibitor Start: 05-07-2022 End: 06-07-2023 Canagliflozin (Invokana) 100 mg tablet Discontinued MG TABLET June 07, 2023 12:00am June 07, 2023 1:49pm cephalexin 500 mg oral capsule (20 sources) Cephalosporin Antibacterial Start: 05-19-2022 End: 06-15-2022 take 500 mg by mouth twice daily Cephalexin Discontinued 500 MG PO Twice daily 14 7 May 19, 2022 12:00am June 15, 2022 11:56am Start: 03-16-2021 End: 05-07-2022 take 500 mg by mouth three times daily Cephalexin Discontinued 500 MG PO Three times daily March 16, 2021 12:00am May 07, 2022 1:33pm ciprofloxacin 500 mg oral tablet (20 sources) Quinolone Antimicrobial Start: 06-15-2022 End: 07-12-2022 take 1 tablet by mouth every two hours Ciprofloxacin Hcl (Cipro) 500 mg tablet Discontinued 500 MG PO Q12H June 15, 2022 12:00am July 12, 2022 1:24pm administer dose at least 2 hrs before/6 hrs after dairy products, calcium, zinc, and/or iron-containing products Start: 06-15-2022 take 1 tablet by macario th every two hours Ciprofloxacin Hcl (Cipro) 500 mg tablet Active 500 MG PO Q12H June 15, 2022 12:00am administer dose at least 2 hrs before/6 hrs after dairy products, calcium, zinc, and/or iron-containing products Start: 06-15-2022 take 1 tablet by macario th every two hours Ciprofloxacin Hcl (Cipro) 500 mg tablet Active 500 MG PO Q12H June 15, 2022 12:00am administer dose at least 2 hrs before/6 hrs after dairy products, calcium, zinc, and/or iron-containing products Start: 06-15-2022 take 1 tablet by macario th every two hours Ciprofloxacin Hcl (Cipro) 500 mg tablet Active 500 MG PO Q12H June 15, 2022 12:00am administer dose at least 2 hrs before/6 hrs after dairy products, calcium, zinc, and/or iron-containing products Start: 05-24-2022 End: 06-15-2022 take 1 tablet by mouth every two hours Ciprofloxacin Hcl (Cipro) 500 mg tablet Discontinued 500 MG PO Q12H May 24, 2022 12:00am June 15, 2022 11:56am administer dose at least 2 hrs before/6 hrs after dairy products, calcium, zinc, and/or iron-containing products cyclobenzaprine hydrochloride 10 mg oral tablet (20 sources) Muscle Relaxant Start: 03-16-2021 End: 05-07-2022 take 10 mg by mouth three times daily Cyclobenzaprine Discontinued 10 MG PO Three times daily March 16, 2021 12:00am May 07, 2022 1:34pm Start: 02-22-2021 End: 02-23-2021 take 5 mg by mouth once daily at bedtime Cyclobenzaprine Discontinued 5 MG PO Daily at bedtime February 22, 2021 12:00am February 23, 2021 1:02pm escitalopram 20 mg oral tablet (1 source) Serotonin Reuptake Inhibitor take 1 tablet by mouth once daily Lexapro 20 MG Oral Tablet TAKE 1 TABLET DAILY. Quantity: 0 Refills: 0 Ordered: 11-Apr-2023 DO Active ketorolac tromethamine 10 mg oral tablet (15 sources) Nonsteroidal Anti-inflammatory Drug, Cyclooxygenase Inhibitor Start: 05-19-20 End: 06-15-20 take 10 mg by mouth every eight hours Ketorolac Discontinued 10 MG PO Q8H May 19, 2022 12:00am June 15, 2022 11:56am LORazepam 0.5 mg oral tablet (1 source) Benzodiazepine take 1-2 tablets by mouth every eight hours LORazepam 0.5 MG Oral Tablet TAKE 1 - 2 TABLETS EVERY 8 HOURS Quantity: 0 Refills: 0 Ordered: 11-Apr-2023 DO Active losartan potassium 100 mg oral tablet (20 sources) Angiotensin 2 Receptor Irena Start: 10-19-20 End: 06-07-20 take 100 mg by mouth once daily in the morning Losartan Discontinued 100 MG PO Every morning October 02, 2022 1:00am June 07, 2023 1:48pm Start: 11-08-2018 End: 10-02-2022 take 100 mg by mouth once daily Losartan Discontinued 100 MG PO Daily May 07, 2022 1:35pm October 02, 2022 1:11pm Start: 11-04-2018 End: 11-08-2018 take 50 mg by mouth once daily Losartan Discontinued 5 0 MG PO Daily November 04, 2018 1:00am November 08, 2018 11:07am Magnesium (15 sources) Start: 03-09-2021 End: 05-07-2022 take 250 mg by mouth once daily Magnesium Discontinued 250 MG PO Daily March 08, 2021 11:00pm May 07, 2022 12:34pm Start: 03-09-2021 End: 05-07-2022 take 250 mg by mouth once daily Magnesium Discontinued 250 MG PO Daily March 09, 2021 12:00am May 07, 2022 1:34pm meloxicam 15 mg oral tablet (15 sources) Nonsteroidal Anti-inflammatory Drug Start: 05-11-2019 End: 02-22-2021 take 15 mg by mouth once daily Meloxicam Discontinued 15 MG PO Daily May 11, 2019 12:00am February 22, 2021 10:02pm metFORMIN hydrochloride 500 mg oral tablet (20 sources) Biguanide Start: 05-07-2022 End: 05-07-2022 take 1000 mg by mouth twice daily Metformin Discontinued 1000 MG PO Twice daily May 07, 2022 1:35pm May 07, 2022 1:36pm Start: 05-07-2022 End: 02-05-2023 take 1000 mg by mouth once daily in the morning Metformin Discontinued 1000 MG PO Every morning May 07, 2022 12:00am February 05, 2023 6:51pm Start: 05-07-2022 take 1000 mg by mout h twice daily Metformin Active 1000 MG PO Twice daily May 06, 2022 11:00pm Start: 11-04-2018 End: 05-07-2022 take 500 mg by mouth twice daily Metformin Discontinued 500 MG PO Twice daily 60 November 08, 2018 11:06am May 07, 2022 1:35pm Multivitamin preparation (15 sources) Start: 03-09-2021 End: 10-02-2022 take 1 tablet by mouth once daily Multivitamin Discontinued 1 TAB PO Daily March 09, 2021 12:00am October 02, 2022 1:12pm Start: 03-09-2021 End: 10-02-2022 take 1 tablet by mouth once daily Multivitamin Discontinued 1 TAB PO Daily March 08, 2021 11:00pm October 02, 2022 12:12pm Start: 03-09-2021 take 1 tablet by macario th once daily Multivitamin Active 1 TAB PO Daily March 08, 2021 11:00pm Start: 03-09-2021 take 1 tablet by macario th once daily Multivitamin Active 1 TAB PO Daily March 09, 2021 12:00am ondansetron 4 mg oral tablet (15 sources) Serotonin-3 Receptor Antagonist Start: 05-19-2022 End: 07-12-2022 Ondansetron Hcl Discontinued 4 MG PO every 6 to 8 hours May 19, 2022 12:00am July 12, 2022 1:25pm oxybutynin chloride 5 mg oral tablet (15 sources) Cholinergic Muscarinic Antagonist Start: 05-24-2022 End: 07-12-2022 take 5 mg by mouth twice daily Oxybutynin Chloride Discontinued 5 MG PO Twice daily May 24, 2022 12:00am July 12, 2022 1:25pm Start: 05-24-2022 take 5 mg by mouth twice daily Oxybutynin Chloride Active 5 MG PO Twice daily May 24, 2022 12:00am oxyCODONE hydrochloride 5 mg oral capsule (15 sources) Opioid Agonist Start: 03-16-2021 End: 07-12-2022 take 5-10 mg by mouth every six hours Oxycodone Discontinued 5 - 10 MG PO Q6H 40 March 16, 2021 July 12, 2022 1:25pm pramipexole dihydrochloride 0.125 mg oral tablet (15 sources) Nonergot Dopamine Agonist Start: 02-23-2021 End: 05-07-2022 take 0.125 mg by mouth once daily at bedtime Pramipexole Discontinued 0.125 MG PO Daily at bedtime February 23, 2021 12:00am May 07, 2022 1:35pm Prednisone (15 sources) Start: 03-16-2021 End: 05-07-2022 Prednisone Discontinued 1 dose pk PO per package directions March 15, 2021 11:00pm May 07, 2022 12:35pm take 4 tabs for 3 days then take 3 tabs for 3 days then take 2 tabs for 3 days then take 1 tab for 3 days Start: 03-16-2021 End: 05-07-2022 Prednisone Discontinued 1 do se pk PO per package directions March 16, 2021 12:00am May 07, 2022 1:35pm take 4 tabs for 3 days then take 3 tabs for 3 days then take 2 tabs for 3 days then take 1 tab for 3 days pregabalin 25 mg oral capsule (7 sources) Start: 10-02-2022 End: 02-05-2023 take 25 mg by mouth at bedtime Pregabalin Discontinued 25 MG PO Bedtime October 02, 2022 1:00am February 05, 2023 6:51pm tamsulosin hydrochloride 0.4 mg oral capsule (15 sources) alpha-Adrenerg ic Irena Start: 05-19-2022 End: 05-24-2022 take 1 capsule by mouth once Tamsulosin (Flomax) 0.4 mg capsule Discontinued 0.4 MG PO Once May 19, 2022 12:00am May 24, 2022 10:34am Problems Active Problems Problem Classification Problem Date Documented Date Episodic/Chronic Abdominal pain (16 sources) Flank pain; Translations: [Unspecified abdominal pain] 10-19-2020 Episodic Acute cerebrovascular disease (1 source) Cerebrovascular accident 10-31-2020 Chronic Chronic kidney disease (16 sources) Chronic kidney disease; Translations: [Chronic kidney disease, unspecified] Onset: 07-11-2023 02-23-2022 Chronic Conditions associated with dizziness or vertigo (20 sources) Benign paroxysmal positional vertigo; Translations: [Benign paroxysmal vertigo, unspecified ear] 02-23-2021 Episodic Diabetes mellitus without complication (20 sources) Diabetes mellitus; Translations: [Type 2 diabetes mellitus] Onset: 02-13-2023 10-19-2020 Chronic Disorders of lipid metabolism (20 sources) Hyperlipidemia; Translations: [Hyperlipidemia, unspecified] Onset: 02-13-2023 10-19-2020 Chronic Epilepsy; convulsions (15 sources) Seizure; Translations: [Unspecified convulsions] 11-06-2018 Episodic Essential hypertension (20 sources) Hypertensive disorder; Translations: [Essential (primary) hypertension] Onset: 02-13-2023 10-31-2020 Chronic Genitourinary symptoms and ill-defined conditions (2 sources) Microscopic hematuria; Translations: [Asymptomatic microscopic hematuria] Onset: 05-22-2022 Episodic Headache; including migraine (3 sources) Migraine; Translations: [Migraine without aura, not intractable, without status migrainosus] Onset: 07-11-2023 07-13-2023 Chronic Headache; including migraine (20 sources) Frequent headache; Translations: [Headache] 10-19-2020 Episodic Nonspecific chest pain (20 sources) Chest pain; Translations: [Chest pain, unspecified] Onset: 02-13-2023 02-23-2022 Episodic Osteoarthritis (8 sources) Arthropathy of left hip joint; Translations: [Unilateral primary osteoarthritis, left hip] Chronic Other aftercare (1 source) Long-term current use of anticoagulant; Translations: [detention (current) use of anticoagulants] Onset: 05-22-2022 Episodic Other circulatory disease (15 sources) History of transient ischemic attack; Translations: [Personal history of transient ischemic attack (TIA), and cerebral infarction without residual deficits] 02-22-2021 Episodic Other circulatory disease (1 source) Personal history of transient ischemic attack (TIA), and cerebral infarction without residual deficits; Translations: [Personal history of transient ischemic attack (TIA), and cerebral infarction without residual deficits] 02-06-2023 Episodic Other connective tissue disease (15 sources) Monoparesis - leg; Translations: [Other symptoms and signs involving the musculoskeletal system] 02-22-2021 Episodic Other fractures (5 sources) Compression fracture of lumbar spine; Translations: [Wedge compression fracture of first lumbar vertebra, initial encounter for closed fracture] Episodic Other nervous system disorders (3 sources) Chronic pain; Translations: [Other chronic pain] Chronic Other nervous system disorders (2 sources) Other chronic pain Chronic Other nervous system disorders (15 sources) Difficulty talking; Translations: [Unspecified speech disturbances] 05-11-2019 Episodic Other nervous system disorders (9 sources) Acute postoperative pain; Translations: [Other acute postprocedural pain] 07-26-2022 Episodic Other nervous system disorders (4 sources) Unspecified speech disturbances; Translations: [Other speech disturbance] 10-01-2022 Episodic Other non-traumatic joint disorders (4 sources) Pain in left hip; Translations: [PAIN IN LEFT HIP] Onset: 08-29-2021 Episodic Other non-traumatic joint disorders (1 source) Other specified joint disorders, left hip; Translations: [OTHER SPECIFIED JOINT D/O LEFT HIP] Onset: 09-04-2021 Episodic Other nutritional; endocrine; and metabolic disorders (1 source) Obesity; Translations: [Obesity, unspecified] Chronic Residual codes; unclassified (17 sources) Altered mental status; Translations: [Altered mental status, unspecified] 05-11-2019 Episodic Residual codes; unclassified (8 sources) Confusional state; Translations: [Disorientation, unspecified] 10-01-2022 Episodic Residual codes; unclassified (4 sources) Disorientation, unspecified; Translations: [Unspecified psychosis] 10-01-2022 Episodic Screening and history of mental health and substance abuse codes (2 sources) Ex-smoker; Translations: [Personal history of tobacco use] 10-19-2020 Episodic Comment on above: Quit 1999; Spondylosis; intervertebral disc disorders; other back problems (20 sources) Inflammation of sacroiliac joint; Translations: [Sacroiliitis, not elsewhere classified] Onset: 09-26-2021 Resolved: 04-19-2022 Chronic Spondylosis; intervertebral disc disorders; other back problems (14 sources) Lumbago with sciatica; Translations: [Lumbago with sciatica, left side] Onset: 04-19-2022 Resolved: 04-19-2022 Episodic Transient cerebral ischemia (20 sources) Transient cerebral ischemia; Translations: [Transient cerebral ischemic attack, unspecified] Onset: 07-11-2023 11-05-2018 Chronic Unclassified (1 source) Asymptomatic microscopic hematuria 10-19-2020 Unclassified (1 source) Encounter for preprocedural laboratory examination; Translations: [Encounter for preprocedural laboratory examination] Onset: 06-07-2023 Past or Other Problems Problem Classification Problem Date Documented Da te Episodic/Chronic Calculus of urinary tract (20 sources) Kidney stone; Translations: [Calculus of kidney] Onset: 05-22-2022 Episodic Other fractures (1 source) Wedge compression fracture of first lumbar vertebra, initial encounter for closed fracture Onset: 04-19-2022 Resolved: 04-19-2022 Episodic Residual codes; unclassified (8 sources) Altered mental status, unspecified; Translations: [Altered mental status] Onset: 07-24-2023 10-01-2022 Episodic Syncope (9 sources) Syncope; Translations: [Syncope and collapse] Onset: 07-11-2023 07-11-2023 Episodic Unclassified (1 source) Left-sided low back pain without sciatica, unspecified chronicity M54.50 Onset: 06-08-2022 Resolved: 06-08-2022 Results Test Name Value Interpretation Reference Range Facility Activated partial thrombopla stin time (aPTT) in platelet poor plasma by coagulation aOrdered By: Jose Merino on 07-24-2023 aPTT Coag (PPP) [Time] 28.7 s 25.1-36.5 [facility] Comment on above: A hematocrit value g reater than 55% may lead to inaccurate results in coagulation testing. Patients having hematocrit values >55% require a special collection tube for coagulation studies. Please contact the laboratory at [phone] for redraw instructions. Alanine aminotransferase [En zymatic activity/volume] in Serum or PlasmaOrdered By: Jose Merino on 07-24-2023 ALT [Catalytic activity/Vol] 15 U/L 7-52 [facility] Albumin [Mass/volume] in Ser um or Plasma by Bromocresol green (BCG) dye binding methoOrdered By: Jose Merino on 07-24-2023 Albumin BCG dye [Mass/Vol] 4.2 g/dL 3.5-5.7 [facility] Alkaline phosphatase [Enzyma tic activity/volume] in Serum or PlasmaOrdered By: Jose Merino on 07-24-2023 ALP [Catalytic activity/Vol] 91 U/L 34-104 [facility] Ammoniaon 07-24-2023 Ammonia (P) [Moles/Vol] 31 umol/L Normal 11-35 [facility] Comment on above: Result Comment: PERF ORMED BY: [place] [address] PATHOLOGIST [employer] RADHA CARR M.D. Performed By: #### L IPID, BMP, LDLD, MG, CBCNO #### [address] Ammonia [Moles/volume] in Pl asmaOrdered By: Jose Merino on 07-24-2023 Ammonia (P) [Moles/Vol] 31 umol/L 11-35 [facility] Aspartate aminotransferase [ Enzymatic activity/volume] in Serum or PlasmaOrdered By: Jose Merino on 07-24-2023 AST [Catalytic activity/Vol] 12 U/L 13-39 [facility] Basophils Auto (Bld) [#/Vol] Ordered By: Jose Merino on 07-24-2023 Basophils (Bld) [#/Vol] 0.0 10*3/uL 0.0-0.2 [facility] Basophils/100 WBC Auto (Bld) Ordered By: Jose Merino on 07-24-2023 Basophils/100 WBC (Bld) 0.5 % . [facility] Bilirubin Test strip Ql (U)O rdered By: Jose Merino on 07-24-2023 Bilirubin Ql (U) Negative Negative [facility] [facility] Bil[facility].total [Mass/volume ] in Serum or PlasmaOrdered By: Jose Merino on 07-24-2023 Bilirubin [Mass/Vol] 0.5 mg/dL 0.3-1.[address] [facility] [address] head/brain wo conon 07-24 CT head/brain wo con [facility] [place] [address] CT Scan Report Signed Patient: Rod Mathias MR#: [id number] 1426 : 1960 Acct:[id number] Age/Sex: 62 / M ADM Date: 07/24/23 Loc: ER Room: Type: PRE ER Attending Dr: Copies to: Jose Merino DO Ordering Provider: Jose Merino DO Date of Service: 07/24/23 CT/CT head/brain wo con: altered mental status CT BRAIN WITHOUT CONTRAST: CLINICAL HISTORY: Altered mental status. Headache. Fall 3 days in a row. COMPARISON: None TECHNIQUE: Contiguous axial unenhanced images were obtained through the brain. This CT exam was performed using one or more following dose reduction techniques: Automated exposure control, adjustment of the mA and/or kV according to patient size, or use of iterative reconstruction technique. FINDINGS: There is no evidence of midline shift, intra or extra-axial fluid collection, hemorrhage or CT evidence of stroke. Posterior fossa appears unremarkable. Visualized intraorbital contents demonstrate no acute findings. Visualized paranasal sinuses are clear. The surrounding soft tissues are normal. CT/CT head/brain wo con IMPRESSION: NO ACUTE INTRACRANIAL ABNORMALITY. Impression dictated by: Gwyn Fischer Jr., D.O.07/24/2023 9:06 AM Dictation Location: [place] [address] Transcribed By: [facility] 07/24/23905 Dictated By: Gwyn Fischer Jr, DO 07/24/23901 Signed By: 07/24/23905 Normal [facility] Calcium [Mass/volume] in Ser um or PlasmaOrdered By: Jose Merino on 07-24-2023 Calcium [Mass/Vol] 9.2 mg/dL 8.6-10.3 [facility] Carbon dioxide, total [Moles /volume] in Serum or PlasmaOrdered By: Jose Merino on 07-24-2023 CO2 [Moles/Vol] 18.5 mmol/L 21.0-31.0 [facility] Chloride [Moles/volume] in S ayanna or PlasmaOrdered By: Jose Merino on 07-24-2023 Chloride [Moles/Vol] 113 mmol/L 98-107 [facility] Color Auto (U)Ordered By: Newton Merino on 07-24-2023 Color (U) Yellow Yellow [facility] Complete Blood Count Auto Di ffon 07-24-2023 Basophils (Bld) [#/Vol] 0.0 10*3/uL Normal 0.0-0.2 [facility] Comment on above: Result Comment: PERF ORMED BY: [place] [address] PATHOLOGIST [employer] RADHA CARR M.D. Performed By: #### L IPID, BMP, LDLD, MG, CBCNO #### [facility] [address] [place] [address] [place] Basophils/100 WBC (Bld) 0.5 % Normal . [facility] Comment on above: Performed By: #### L IPID, BMP, LDLD, MG, CBCNO #### [facility] [address] [place] [address] [place] Eosinophils (Bld) [#/Vol] 0.1 10*3/uL Normal 0.0-0.45 [facility] Comment on above: Performed By: #### L IPID, BMP, LDLD, MG, CBCNO #### [address] Eosinophils/100 WBC (Bld) 1.2 % Normal . [facility] Comment on above: Performed By: #### L IPID, BMP, LDLD, MG, CBCNO #### [address] Erythrocyte distribution width (RBC) [Ratio] 13.7 % Normal 12.0-14.8 [facility] Comment on above: Performed By: #### L IPID, BMP, LDLD, MG, CBCNO #### [address] Hematocrit (Bld) [Volume fraction] 40.4 % Normal 38.8-50.0 [facility] Comment on above: Performed By: #### L IPID, BMP, LDLD, MG, CBCNO #### [address] Hemoglobin (Bld) [Mass/Vol] 13.6 g/dL Normal 13.0-17.0 [facility] Comment on above: Performed By: #### L IPID, BMP, LDLD, MG, CBCNO #### [address] Lymphocytes (Bld) [#/Vol] 3.2 10*3/uL Normal 1.00-4.8 [facility] Comment on above: Performed By: #### L IPID, BMP, LDLD, MG, CBCNO #### [address] Lymphocytes/100 WBC (Bld) 38.5 % Normal . [facility] Comment on above: Performed By: #### L IPID, BMP, LDLD, MG, CBCNO #### [address] MCH (RBC) [Entitic mass] 30.8 pg Normal 27.5-35.2 [facility] Comment on above: Performed By: #### L IPID, BMP, LDLD, MG, CBCNO #### [address] MCV (RBC) [Entitic vol] 91.6 fL Normal 83.5-101 [facility] Comment on above: Performed By: #### L IPID, BMP, LDLD, MG, CBCNO #### [address] Mean Corpuscular HGB Conc 33.7 g/dL Normal 32.5-35.6 [facility] Comment on above: Performed By: #### L IPID, BMP, LDLD, MG, CBCNO #### [address] Monocytes (Bld) [#/Vol] 0.8 10*3/uL Normal 0.0-0.8 [facility] Comment on above: Performed By: #### L IPID, BMP, LDLD, MG, CBCNO #### [address] Monocytes/100 WBC (Bld) 18.16 % Normal 0.00-20.00 [facility] Comment on above: Performed By: #### L IPID, BMP, LDLD, MG, CBCNO #### [address] Monocytes/100 WBC (Bld) 9.7 % Normal . [facility] Comment on above: Performed By: #### L IPID, BMP, LDLD, MG, CBCNO #### [address] Neutrophils (Bld) [#/Vol] 4.2 10*3/uL Normal 1.8-7.7 [facility] Comment on above: Performed By: #### L IPID, BMP, LDLD, MG, CBCNO #### [address] Neutrophils/100 WBC (Bld) 50.1 % Normal . [facility] Comment on above: Performed By: #### L IPID, BMP, LDLD, MG, CBCNO #### [address] NRBC% 0.0 /100{WBC} Normal 0-0.5 [facility] Comment on above: Performed By: #### L IPID, BMP, LDLD, MG, CBCNO #### [address] Platelet mean volume (Bld) [Entitic vol] 8.5 fL Normal 6.6-10.1 [facility] Comment on above: Performed By: #### L IPID, BMP, LDLD, MG, CBCNO #### [address] Platelets (Bld) [#/Vol] 222 10*3/uL Normal 150-450 [facility] Comment on above: Performed By: #### L IPID, BMP, LDLD, MG, CBCNO #### [address] RBC (Bld) [#/Vol] 4.41 10*6/uL Normal 3.90-5.60 [facility] Comment on above: Performed By: #### L IPID, BMP, LDLD, MG, CBCNO #### [address] WBC (Bld) [#/Vol] 8.4 10*3/uL Normal 4.1-10.5 [facility] Comment on above: Performed By: #### L IPID, BMP, LDLD, MG, CBCNO #### [address] Comprehensive Metabolic Pane jerrod 07-24-2023 Albumin [Mass/Vol] 4.2 g/dL Normal 3.5-5.7 [facility] Comment on above: Performed By: #### L IPID, BMP, LDLD, MG, CBCNO #### [address] Albumin/Globulin [Mass ratio] 1.5 {ratio} Normal [facility] Comment on above: Performed By: #### L IPID, BMP, LDLD, MG, CBCNO #### [facility] [address] [place] [address] ALP [Catalytic activity/Vol] 91 U/L Normal 34-104 [facility] Comment on above: Performed By: #### L IPID, BMP, LDLD, MG, CBCNO #### [address] ALT [Catalytic activity/Vol] 15 U/L Normal 7-52 [facility] Comment on above: Performed By: #### L IPID, BMP, LDLD, MG, CBCNO #### [address] Anion gap [Moles/Vol] 11.5 mmol/L Normal 6.0-15.0 [facility] Comment on above: Performed By: #### L IPID, BMP, LDLD, MG, CBCNO #### [address] AST [Catalytic activity/Vol] 12 U/L Low 13-39 [facility] Comment on above: Performed By: #### L IPID, BMP, LDLD, MG, CBCNO #### [address] Bilirubin [Mass/Vol] 0.5 mg/dL Normal 0.3-1.0 [facility] Comment on above: Performed By: #### L IPID, BMP, LDLD, MG, CBCNO #### [address] Calcium [Mass/Vol] 9.2 mg/dL Normal 8.6-10.3 [facility] Comment on above: Performed By: #### L IPID, BMP, LDLD, MG, CBCNO #### [place] [address] [place] Chloride [Moles/Vol] 113 mmol/L High 98-107 [facility] Comment on above: Performed By: #### L IPID, BMP, LDLD, MG, CBCNO #### [place] [address] [place] CO2 [Moles/Vol] 18.5 mmol/L Low 21.0-31.0 [facility] Comment on above: Performed By: #### L IPID, BMP, LDLD, MG, CBCNO #### [address] Creatinine [Mass/Vol] 1.46 mg/dL High 0.70-1.30 [facility] Comment on above: Performed By: #### L IPID, BMP, LDLD, MG, CBCNO #### [place] [address] [place] Creatinine Clr Calc Pharmacy 62.55 Normal [facility] Comment on above: Performed By: #### L IPID, BMP, LDLD, MG, CBCNO #### [address] GFR/1.73 sq M.predicted MDRD (S/P/Bld) [Vol rate/Area] 53.370 mL/min/{1.73_m2} Normal [facility] Comment on above: Performed By: #### L IPID, BMP, LDLD, MG, CBCNO #### [address] Globulin (S) [Mass/Vol] 2.8 g/dL Normal [facility] Comment on above: Performed By: #### L IPID, BMP, LDLD, MG, CBCNO #### [address] Glucose [Mass/Vol] 182 mg/dL High 70-100 [facility] Comment on above: Result Comment: [facility] Glucose Reference Range is dependent on time and content of last meal. Glucose of more than 200 mg/dL in a nonstressed, ambulatory subject supports the diagnosis of Diabetes Mellitus. ADA recommended reference range Performed By: #### L IPID, BMP, LDLD, MG, CBCNO #### [address] Potassium [Moles/Vol] 4.0 mmol/L Normal 3.5-5.1 [facility] Comment on above: Performed By: #### L IPID, BMP, LDLD, MG, CBCNO #### [facility] [address] [place] [address] [place] Protein [Mass/Vol] 7.0 g/dL Normal 6.4-8.9 [facility] Comment on above: Performed By: #### L IPID, BMP, LDLD, MG, CBCNO #### [facility] [address] [place] [address] [place] Sodium [Moles/Vol] 139 mmol/L Normal 136-145 [facility] Comment on above: Performed By: #### L IPID, BMP, LDLD, MG, CBCNO #### [address] Urea nitrogen [Mass/Vol] 24 mg/dL Normal 7-25 [facility] Comment on above: Performed By: #### L IPID, BMP, LDLD, MG, CBCNO #### [address] Creatine Kinaseon 07-24-2023 CK [Catalytic activity/Vol] 73 U/L Normal 30-223 [facility] Comment on above: Performed By: #### L IPID, BMP, LDLD, MG, CBCNO #### [address] Creatine kinase [Enzymatic a ctivity/volume] in Serum or PlasmaOrdered By: Jose Merino on 07-24-2023 CK [Catalytic activity/Vol] 73 U/L 30-223 [facility] Creatinine [Mass/volume] in Serum or PlasmaOrdered By: Jose Merino on 07-24-2023 Creatinine [Mass/Vol] 1.46 mg/dL 0.70-1.30 [facility] ECG 12 lead ECGon 07-24-2023 ECG 12 lead ECG [facility] [place] [address] Electrocardiograph Report Signed Patient: Rod Mathias MR#: [id number] 1426 : 1960 Acct:[id number] Age/Sex: 62 / M ADM Date: 07/24/23 Loc: ER Room: Type: DEP ER Attending Dr: Ordering Provider: Jose Merino DO Date of Service: 07/24/2302/10/818 ECG/ECG 12 lead ECG: Altered Mental Status Copies to: Test Reason : Blood Pressure : 162/075 mmHG Vent. Rate : 064 BPM Atrial Rate : 064 BPM P-R Int : 186 ms QRS Dur : 090 ms QT Int : 390 ms P-R-T Axes : 056 032 043 degrees QTc Int : 402 ms Normal sinus rhythm Confirmed by Jose MERINO DO ([id number]) on 07/24/2023 1:16:48 PM Referred By: Electronically Signed By:Jose MERINO DO Transcribed By: MUS Signed By Jose Merino DO 1 1316 Normal [facility] Eosinophils Auto (Bld) [#/Vo l]Ordered By: Jose Merino on 07-24-2023 Eosinophils (Bld) [#/Vol] 0.1 10*3/uL 0.0-0.45 [facility] Eosinophils/100 WBC Auto (Bl d)Ordered By: Jose Merino on 07-24-2023 Eosinophils/100 WBC (Bld) 1.2 % . [facility] Erythrocyte distribution wid th Auto (RBC) [Ratio]Ordered By: Jose Merino on 07-24-2023 Erythrocyte distribution width (RBC) [Ratio] 13.7 % 12.0-14.8 [facility] Ethanol [Mass/volume] in Ser um or PlasmaOrdered By: Jose Merino on 07-24-2023 Ethanol [Mass/Vol] mg/dL [facility] Ethanol [Mass/Vol] TNP [facility] Comment on above: Test not performed Ethyl Alcohol Profileon Ethanol [Mass/Vol] mg/dL Normal [facility] Comment on above: Performed By: #### L IPID, BMP, LDLD, MG, CBCNO #### [address] Percent Ethanol Not performed Normal [facility] Comment on above: Result Comment: PERF ORMED BY: [place] [address] PATHOLOGIST [employer] LEAD RADHA CARR M.D. Performed By: #### L IPID, BMP, LDLD, MG, CBCNO #### [address] Globulin Calc (S) [Mass/Vol] Ordered By: Jose Merino on 07-24-2023 Globulin (S) [Mass/Vol] 2.8 g/dL [facility] Glucose Glucometer (BldC) [M ass/Vol]Ordered By: Jose Merino on 07-24-2023 Glucose [Mass/Vol] 220 mg/dL [facility] Comment on above: Random Glucose Refer ence Range is dependent on time and content of last meal. Glucose of more than 200 mg/dL in a nonstressed, ambulatory subject supports the diagnosis of Diabetes Mellitus. Glucose Poct Glucometerson 1 Commemt1 Glu2: Cleaned Meter Normal [facility] Comment on above: Result Comment: PERF ORMED BY: [place] [address] PATHOLOGIST [employer] LEAD RADHA CARR M.D. Performed By: #### G LULS #### Point of Care testing , Glucose [Mass/Vol] 220 mg/dL Normal [facility] Comment on above: Result Comment: [facility] om Glucose Reference Range is dependent on time and content of last meal. Glucose of more than 200 mg/dL in a nonstressed, ambulatory subject supports the diagnosis of Diabetes Mellitus. Performed By: #### G LULS #### Point of Care testing , Glucose [Mass/volume] in Ser um or PlasmaOrdered By: Jose Merino on 07-24-2023 Glucose [Mass/Vol] 182 mg/dL 70-100 [facility] Comment on above: ADA recommended refe rence rangeRandom Glucose Reference Range is dependent on time and content of last meal. Glucose of more than 200 mg/dL in a nonstressed, ambulatory subject supports the diagnosis of Diabetes Mellitus. Hematocrit Auto (Bld) [Volum e fraction]Ordered By: Jose Merino on 07-24-2023 Hematocrit (Bld) [Volume fraction] 40.4 % 38.8-50.0 [facility] Hemoglobin [Mass/volume] in BloodOrdered By: Jose Merino on 07-24-2023 Hemoglobin (Bld) [Mass/Vol] 13.6 g/dL 13.0-17.0 [facility] INR in Platelet poor plasma by Coagulation assayOrdered By: Jose Merino on 07-24-2023 INR Coag (PPP) [Relative time] 0.9 {INR} [facility] Comment on above: INR Therapeutic Rang e A) Pre- and Peroperative OAT started two weeks before surgery. NOT HIP SURGERY: 1.5 - 2.5 HIP SURGERY: 2 - 3B) Primary and secondary prevention of venous THROMBOSIS: 2 - 3C) Active venous thrombosis, pulmonary embolismand prevention of recurrent venous thrombosis: 2 - 3D) Prevention of arterial thromboembolismincluding patients with mechanical heart valves: 3 - 4.5 Ketones Auto test strip (U) [Mass/Vol]Ordered By: Jose Merino on 07-24-2023 Ketones (U) [Mass/Vol] Negative Negative Fi [facility] - Chemistry and C hemistry - challengeOrdered By: Jose Merino on 07-24-2023 CO2 [Moles/Vol] 23.4 mmol/L 24.0-29.0 [facility] HCO3 (Bld) [Moles/Vol] 21.9 mmol/L 23.0-29.0 [facility] Leukocytes [#/volume] correc deesan for nucleated erythrocytes in Blood by Automated counOrdered By: Jose Merino on 07-24-2023 WBC corrected for nucl RBC Auto (Bld) [#/Vol] 8.4 10*3/uL 4.1-10.5 [facility] Lymphocytes Auto (Bld) [#/Vo l]Ordered By: Jose Merino on 07-24-2023 Lymphocytes (Bld) [#/Vol] 3.2 10*3/uL 1.00-4.8 [facility] Lymphocytes/100 WBC Auto (Bl d)Ordered By: Jose Merino on 07-24-2023 Lymphocytes/100 WBC (Bld) 38.5 % . [facility] MCH Auto (RBC) [Entitic mass ]Ordered By: Jose Merino on 07-24-2023 MCH (RBC) [Entitic mass] 30.8 pg 27.5-35.2 [facility] MCHC Auto (RBC) [Mass/Vol]Or dered By: Jose Merino on 07-24-2023 MCHC (RBC) [Mass/Vol] 33.7 g/dL 32.5-35.6 [facility] MCV Auto (RBC) [Entitic vol] Ordered By: Jose Merino on 07-24-2023 MCV (RBC) [Entitic vol] 91.6 fL 83.5-101 [facility] Monocyte distribution width [Entitic volume] in Blood by AutomatedOrdered By: Jose Merino on 07-24-2023 Monocyte distribution width Auto (Bld) [Entitic vol] 18.16 % 0.00-20.00 [facility] Monocytes Auto (Bld) [#/Vol] Ordered By: Jose Merino on 07-24-2023 Monocytes (Bld) [#/Vol] 0.8 10*3/uL 0.0-0.8 [facility] Monocytes/100 WBC Auto (Bld) Ordered By: Jose Merino on 07-24-2023 Monocytes/100 WBC (Bld) 9.7 % . [facility] Neutrophils Auto (Bld) [#/Vo l]Ordered By: Jose Merino on 07-24-2023 Neutrophils (Bld) [#/Vol] 4.2 10*3/uL 1.8-7.7 [facility] Neutrophils/100 WBC Auto (Bl d)Ordered By: Jose Merino on 07-24-2023 Neutrophils/100 WBC (Bld) 50.1 % . [facility] Nitrite Test strip Ql (U)Ord ered By: Jose Merino on 07-24-2023 Nitrite Ql (U) Negative Negative [facility] No Panel InformationOrdered By: Jose Merino on 07-24-2023 Blood Gas Critical Value See comment [facility] Comment on above: Critical Value mcdowell d on: 07/24/2023 at 10:43 Blood Gas Sample Site Venous [facility] FiO2 na % [facility] Venous Blood Base Excess -5.4 mmol/L -3.0-3.0 [facility] Venous Blood Oxygen Saturation 35.3 % 73.0-76.0 [facility] Venous Blood Partial Pressure CO2 48.8 mm[Hg] 38.0-50.0 [facility] Venous Blood Partial Pressure O2 22.5 mm[Hg] 35.0-45.0 [facility] Venous Blood pH 7.27 7.32-7.43 [facility] Estimated GFR (CKD-EPI) 53.370 mL/Min [facility] Creatinine Clearance (Chem 62.55 [facility] Bedside Glucose Comment Glu2: cleaned meter [facility] Nucleated erythrocytes [Pres ence] in Blood by Automated countOrdered By: Jose Merino on 07-24-2023 Nucleated RBC Auto Ql (Bld) 0.0 /100{WBC} 0-0.5 [facility] Partial Thromboplastin Timeo n 07-24-2023 aPTT Coag (Bld) [Time] 28.7 s Normal 25.1-36.5 [facility] Comment on above: Result Comment: A he matocrit value greater than 55% may lead to inaccurate results in coagulation testing. Patients having hematocrit values >55% require a special collection tube for coagulation studies. Please contact the laboratory at [phone] for redraw instructions. PERFORMED BY: [place] [address] PATHOLOGIST [employer] RADHA CARR M.D. Performed By: #### L IPID, BMP, LDLD, MG, CBCNO #### [facility] [address] [place] [address] Platelet mean volume Auto (B ld) [Entitic vol]Ordered By: Jose Merino on 07-24-2023 Platelet mean volume (Bld) [Entitic vol] 8.5 fL 6.6-10.1 [facility] Platelets Auto (Bld) [#/Vol] Ordered By: Jose Merino on 07-24-2023 Platelets (Bld) [#/Vol] 222 10*3/uL 150-450 [facility] Potassium [Moles/volume] in Serum or PlasmaOrdered By: Jose Merino on 07-24-2023 Potassium [Moles/Vol] 4.0 mmol/L 3.5-5.1 [facility] Prolactinon 07-24-2023 Prolactin 5.59 ng/mL Normal 2.64-13.13 [facility] Comment on above: Result Comment: PERF ORMED BY: [facility] [address] [place] [address] PATHOLOGIST [employer] RADHA CARR M.D. Performed By: #### L IPID, BMP, LDLD, MG, CBCNO #### [facility] [address] [place] [id number] [facility] Prolactin [Mass/volume] in S ayanna or PlasmaOrdered By: Jose Merino on 07-24-2023 Prolactin [Mass/Vol] 5.59 ng/mL 2.64-13.13 [facility] Protein Auto test strip (U) [Mass/Vol]Ordered By: Jose Merino on 07-24-2023 Protein (U) [Mass/Vol] Negative Negative Fi [facility] Protein [Mass/volume] in Ser um or PlasmaOrdered By: Jose Merino on 07-24-2023 Protein [Mass/Vol] 7.0 g/dL 6.4-8.9 [facility] Prothrombin Time INRon 07-24 INR Coag (PPP) [Relative time] 0.9 {INR} Normal [facility] Comment on above: Result Comment: INR Therapeutic Range A) Pre- and Peroperative OAT started two weeks before surgery. NOT HIP SURGERY: 1.5 - 2.5 HIP SURGERY: 2 - 3 B) Primary and secondary prevention of venous THROMBOSIS: 2 - 3 C) Active venous thrombosis, pulmonary embolism and prevention of recurrent venous thrombosis: 2 - 3 D) Prevention of arterial thromboembolism including patients with mechanical heart valves: 3 - 4.5 Performed By: #### L IPID, BMP, LDLD, MG, CBCNO #### [facility] [address] [place] [address] [facility] PT Coag (PPP) [Time] 11.3 s Normal 9.0-12.9 [facility] Comment on above: Result Comment: A he matocrit value greater than 55% may lead to inaccurate results in coagulation testing. Patients having hematocrit values >55% require a special collection tube for coagulation studies. Please contact the laboratory at [phone] for redraw instructions. Performed By: #### L IPID, BMP, LDLD, MG, CBCNO #### [facility] [address] Prothrombin time (PT)Ordered By: Jose Merino on 07-24-2023 PT Coag (PPP) [Time] 11.3 s 9.0-12.9 [facility] Comment on above: A hematocrit value g reater than 55% may lead to inaccurate results in coagulation testing. Patients having hematocrit values >55% require a special collection tube for coagulation studies. Please contact the laboratory at [phone] for redraw instructions. RBC Auto (Bld) [#/Vol]Ordere d By: Jose Merino on 07-24-2023 RBC (Bld) [#/Vol] 4.41 10*6/uL 3.90-5.60 [facility] Serum or plasma albumin/glob ulin mass ratioOrdered By: Jose Merino on 07-24-2023 Albumin/Globulin [Mass ratio] 1.5 {ratio} [facility] Serum or plasma anion gap de terminationOrdered By: Jose Merino on 07-24-2023 Anion gap [Moles/Vol] 11.5 mmol/L 6.0-15.0 [facility] Sodium [Moles/volume] in Ser um or PlasmaOrdered By: Jose Merino on 07-24-2023 Sodium [Moles/Vol] 139 mmol/L 136-145 [facility] Specific gravity Auto test s trip (U) [Rel density]Ordered By: Jose Merino on 07-24-2023 Specific gravity (U) [Rel density] 1.025 1.001-1.030 [facility] Thyroid Stimulating Hormoneo n 07-24-2023 TSH Qn 1.75 m[IU]/L Normal 0.45-5.33 [facility] Comment on above: Result Comment: PERF ORMED BY: [facility] [address] [place] [address] PATHOLOGIST [employer] RADHA CARR M.D. Performed By: #### L IPID, BMP, LDLD, MG, CBCNO #### [facility] [address] [place] [address] Thyrotropin [Units/volume] i n Serum or PlasmaOrdered By: Jose Merino on 07-24-2023 TSH Qn 1.75 m[IU]/L 0.45-5.33 [facility] Troponin I High Sensitivityo n 07-24-2023 Troponin I High Sensitivity 4.0 pg/mL Normal 0.0-20.0 [facility] Comment on above: Result Comment: PERF ORMED BY: [place] [address] PATHOLOGIST [employer] RADHA CARR M.D. Performed By: #### L IPID, BMP, LDLD, MG, CBCNO #### [address] Troponin I.cardiac [Mass/vol ume] in Serum or Plasma by Detection limit <= 0.01 ng/Ordered By: Jose Merino on 07-24-2023 Troponin I.cardiac DL <= 0.01 ng/mL [Mass/Vol] 4.0 pg/mL 0.0-20.0 [facility] Urea nitrogen [Mass/volume] in Serum or PlasmaOrdered By: Jose Merino on 07-24-2023 Urea nitrogen [Mass/Vol] 24 mg/dL 05-14 [facility] Urinalysison 07-24-2023 Appearance (U) Clear Normal Clear [facility] Comment on above: Order Comment: Name Collection Type:: Clean-Voided Midstream Performed By: #### U A #### [address] Bilirubin,Urine Negative Normal Negative [facility] Comment on above: Order Comment: Name Collection Type:: Clean-Voided Midstream Performed By: #### U A #### [address] Color (U) Yellow Normal Yellow [facility] Comment on above: Order Comment: Name Collection Type:: Clean-Voided Midstream Performed By: #### U A #### [address] Glucose Ql (U) >=1000 High Normal [facility] Comment on above: Order Comment: Name Collection Type:: Clean-Voided Midstream Performed By: #### U A #### [address] Ketones Ql (U) Negative Normal Negative [facility] Comment on above: Order Comment: Name Collection Type:: Clean-Voided Midstream Performed By: #### U A #### [address] Leukocyte esterase Test strip Ql (U) Negative Normal Negative [facility] Comment on above: Order Comment: Name Collection Type:: Clean-Voided Midstream Performed By: #### U A #### [address] Nitrite,Urine Negative Normal Negative [facility] Comment on above: Order Comment: Name Collection Type:: Clean-Voided Midstream Performed By: #### U A #### [address] Occult Blood,Urine Negative Normal Negative [facility] Comment on above: Order Comment: Name Collection Type:: Clean-Voided Midstream Result Comment: PERF ORMED BY: [place] [address] PATHOLOGIST [employer] LEAD RADHA CARR M.D. Performed By: #### U A #### [address] pH (U) 5.5 [pH] Normal 5.0-9.0 [facility] Comment on above: Order Comment: Name Collection Type:: Clean-Voided Midstream Performed By: #### U A #### [address] Protein,Urine Negative Normal Negative [facility] Comment on above: Order Comment: Name Collection Type:: Clean-Voided Midstream Performed By: #### U A #### [address] Specificy [place],Urine 1.025 Normal 1.001-1.030 [facility] Comment on above: Order Comment: Name Collection Type:: Clean-Voided Midstream Performed By: #### U A #### [facility] [address] [place] [address] Urobilinogen,Urine Normal Normal Normal [facility] Comment on above: Order Comment: Name Collection Type:: Clean-Voided Midstream Performed By: #### U A #### [facility] [address] [place] [address] Urine clarity by refractomet ry automatedOrdered By: Jose Merino on 07-24-2023 Clarity Refractometry automated (U) Clear Clear [facility] Urine glucose measurement by automated test strip (mass/volume)Ordered By: Jose Merino on 07-24-2023 Glucose Auto test strip (U) [Mass/Vol] >=1000 mg/dL Normal [facility] Urine hemoglobin detection b y automated test stripOrdered By: Jose Merino on 07-24-2023 Hemoglobin Auto test strip Ql (U) Negative Negative [facility] Urine leukocyte esterase det ection by automated test stripOrdered By: Jose Merino on 07-24-2023 Leukocyte esterase Auto test strip Ql (U) Negative Negative [facility] Urobilinogen Auto test strip (U) [Mass/Vol]Ordered By: Jose Merino on 07-24-2023 Urobilinogen (U) [Mass/Vol] Normal mg/dL Normal [facility] Venous Blood Gason CO2 [Moles/Vol] 23.4 mmol/L Low 24.0-29.0 [facility] Comment on above: Performed By: #### U A #### [facility] [address] [place] [address] HCO3 (Bld) [Moles/Vol] 21.9 mmol/L Low 23.0-29.0 [facility] Comment on above: Performed By: #### U A #### [address] Respiratory Critical Normal [facility] Comment on above: Result Comment: Crit ical Value called on: 07/24/2023 at 10:43 PERFORMED BY: [place] [address] PATHOLOGIST [employer] LEAD RADHA CARR M.D. Performed By: #### U A #### [address] VBG Base Excess -5.4 mmol/L Low -3.0-3.0 [facility] Comment on above: Performed By: #### U A #### [address] VBG Draw Site Venous Normal [facility] Comment on above: Performed By: #### U A #### [address] VBG Frac Inspired O2 Normal [facility] Comment on above: Performed By: #### U A #### [address] VBG Oxygen Saturation 35.3 % Off scale low 73.0-76.0 [facility] Comment on above: Performed By: #### U A #### [address] VBG PCO2 48.8 mm[Hg] Normal 38.0-50.0 [facility] Comment on above: Performed By: #### U A #### [address] VBG PH Venous PH 7.27 Low 7.32-7.43 [facility] Comment on above: Performed By: #### U A #### [address] VBG PO2 22.5 mm[Hg] Low 35.0-45.0 [facility] Comment on above: Performed By: #### U A #### [address] WBC Auto (Bld) [#/Vol]Ordere d By: Jose Merino on 07-24-2023 WBC (Bld) [#/Vol] 8.4 10*3/uL 4.1-10.5 [facility] XR chest 2V*on 07-24-2023 XR chest 2V* [facility] [place] [address] [place] [id number] XRay Report Signed Patient: Rod Mathias MR#: [id number] 1426 : 1960 Acct:[id number] Age/Sex: 62 / M ADM Date: 07/24/23 Loc: ER Room: Type: PRE ER Attending Dr: Copies to: Jose Merino DO Ordering Provider: Jose Merino DO Date of Service: 07/24/23 XR/XR chest 2V*: Altered Mental Status Chest 2 views CLINICAL HISTORY: Headache and confusion unsteadiness COMPARISON: Chest 07/11/2023 FINDINGS: Heart normal size. Lungs are clear. No free air. XR/XR chest 2V* IMPRESSION: NO ACUTE CARDIOPULMONARY ABNORMALITY. Impression dictated by: Gwyn Fischer Jr., D.O.07/24/2023 9:07 AM Dictation Location: [place] [address] Transcribed By: [facility] 07/24/23906 Dictated By: Gwyn Fischer Jr, DO 07/24/23906 Signed By: 07/24/23906 Normal [facility] pH Auto test strip (U)Ordere d By: Jose Merino on 07-24-2023 pH (U) 5.5 [pH] 5.0-9.0 [facility] Basic Metabolic Panelon 09-2 Anion gap [Moles/Vol] 11.8 mmol/L Normal 6.0-15.0 [facility] Comment on above: Performed By: #### L IPID, BMP, LDLD, MG, CBCNO #### [facility] [address] [place] [address] [place] Calcium [Mass/Vol] 8.8 mg/dL Normal 8.6-10.3 [facility] Comment on above: Performed By: #### L IPID, BMP, LDLD, MG, CBCNO #### [facility] [address] [place] [id number] [place] Chloride [Moles/Vol] 111 mmol/L High 98-107 [facility] Comment on above: Performed By: #### L IPID, BMP, LDLD, MG, CBCNO #### [address] CO2 [Moles/Vol] 21.3 mmol/L Normal 21.0-31.0 [facility] Comment on above: Performed By: #### L IPID, BMP, LDLD, MG, CBCNO #### [address] Creatinine [Mass/Vol] 1.61 mg/dL High 0.70-1.30 [facility] Comment on above: Performed By: #### L IPID, BMP, LDLD, MG, CBCNO #### [address] Creatinine Clr Calc Pharmacy 57.55 Normal [facility] Comment on above: Result Comment: PERF ORMED BY: [place] [address] PATHOLOGIST [employer] LEAD RADHA CARR M.D. Performed By: #### L IPID, BMP, LDLD, MG, CBCNO #### [address] GFR/1.73 sq M.predicted MDRD (S/P/Bld) [Vol rate/Area] 47.459 mL/min/{1.73_m2} Normal [facility] Comment on above: Performed By: #### L IPID, BMP, LDLD, MG, CBCNO #### [address] Glucose [Mass/Vol] 146 mg/dL High 70-100 [facility] Comment on above: Result Comment: [facility] Glucose Reference Range is dependent on time and content of last meal. Glucose of more than 200 mg/dL in a nonstressed, ambulatory subject supports the diagnosis of Diabetes Mellitus. ADA recommended reference range Performed By: #### L IPID, BMP, LDLD, MG, CBCNO #### [place] [address] [place] Potassium [Moles/Vol] 4.1 mmol/L Normal 3.5-5.1 [facility] Comment on above: Performed By: #### L IPID, BMP, LDLD, MG, CBCNO #### [facility] [address] [place] [address] [place] Sodium [Moles/Vol] 140 mmol/L Normal 136-145 [facility] Comment on above: Performed By: #### L IPID, BMP, LDLD, MG, CBCNO #### [facility] [address] [place] [address] [place] Urea nitrogen [Mass/Vol] 18 mg/dL Normal 7-25 [facility] Comment on above: Performed By: #### L IPID, BMP, LDLD, MG, CBCNO #### [facility] [address] [place] [address] [place] Calcium [Mass/volume] in Ser um or PlasmaOrdered By: Shaila Bowen on 07-13-2023 Calcium [Mass/Vol] 8.8 mg/dL 8.6-10.3 [facility] Carbon dioxide, total [Moles /volume] in Serum or PlasmaOrdered By: Shaila Bowen on 07-13-2023 CO2 [Moles/Vol] 21.3 mmol/L 21.0-31.0 [facility] Chloride [Moles/volume] in S ayanna or PlasmaOrdered By: Shaila Bowen on 07-13-2023 Chloride [Moles/Vol] 111 mmol/L 98-107 [facility] Creatinine [Mass/volume] in Serum or PlasmaOrdered By: Shaila Bowen on 07-13-2023 Creatinine [Mass/Vol] 1.61 mg/dL 0.70-1.30 [facility] Erythrocyte distribution wid th Auto (RBC) [Ratio]Ordered By: Shaila Bowen on 07-13-2023 Erythrocyte distribution width (RBC) [Ratio] 14.2 % 12.0-14.8 [facility] Glucose Glucometer (BldC) [M ass/Vol]Ordered By: Shaila Bowen on 07-13-2023 Glucose [Mass/Vol] 200 mg/dL [facility] Comment on above: Random Glucose Refer ence Range is dependent on time and content of last meal. Glucose of more than 200 mg/dL in a nonstressed, ambulatory subject supports the diagnosis of Diabetes Mellitus. Glucose Poct Glucometerson 0 07-13-2023 Commemt1 Glu2: Cleaned Meter Normal [facility] Comment on above: Result Comment: PERF ORMED BY: [place] [address] PATHOLOGIST [employer] LEAD RADHA CARR M.D. Performed By: #### U A #### [place] [address] [place] Glucose [Mass/Vol] 200 mg/dL Normal [facility] Comment on above: Result Comment: [facility] om Glucose Reference Range is dependent on time and content of last meal. Glucose of more than 200 mg/dL in a nonstressed, ambulatory subject supports the diagnosis of Diabetes Mellitus. Performed By: #### U A #### [address] Commemt1 Glu2: Cleaned Meter Normal [facility] Comment on above: Result Comment: PERF ORMED BY: [place] [address] PATHOLOGIST [employer] LE[employer] RADHA CARR M.D. Performed By: #### L IPID, BMP, LDLD, MG, CBCNO #### [place] [address] [place] Glucose [Mass/Vol] 200 mg/dL Normal [facility] Comment on above: Result Comment: [facility] om Glucose Reference Range is dependent on time and content of last meal. Glucose of more than 200 mg/dL in a nonstressed, ambulatory subject supports the diagnosis of Diabetes Mellitus. Performed By: #### L IPID, BMP, LDLD, MG, CBCNO #### [facility] [address] [place] [id number] [place] Glucose [Mass/volume] in Ser um or PlasmaOrdered By: Shaila Bowen on 07-13-2023 Glucose [Mass/Vol] 146 mg/dL 70-100 [facility] Comment on above: ADA recommended refe rence rangeRandom Glucose Reference Range is dependent on time and content of last meal. Glucose of more than 200 mg/dL in a nonstressed, ambulatory subject supports the diagnosis of Diabetes Mellitus. Hematocrit Auto (Bld) [Volum e fraction]Ordered By: Shaila Bowen on 07-13-2023 Hematocrit (Bld) [Volume fraction] 39.9 % 38.8-50.0 [facility] Hemoglobin [Mass/volume] in BloodOrdered By: Shaila Bowen on 07-13-2023 Hemoglobin (Bld) [Mass/Vol] 13.5 g/dL 13.0-17.0 [facility] Hemogram CBC Without Diffon 07-13-2023 Erythrocyte distribution width (RBC) [Ratio] 14.2 % Normal 12.0-14.8 [facility] Comment on above: Performed By: #### L IPID, BMP, LDLD, MG, CBCNO #### [address] Hematocrit (Bld) [Volume fraction] 39.9 % Normal 38.8-50.0 [facility] Comment on above: Performed By: #### L IPID, BMP, LDLD, MG, CBCNO #### [address] Hemoglobin (Bld) [Mass/Vol] 13.5 g/dL Normal 13.0-17.0 [facility] Comment on above: Performed By: #### L IPID, BMP, LDLD, MG, CBCNO #### [address] MCH (RBC) [Entitic mass] 31.4 pg Normal 27.5-35.2 [facility] Comment on above: Performed By: #### L IPID, BMP, LDLD, MG, CBCNO #### [address] MCV (RBC) [Entitic vol] 92.7 fL Normal 83.5-101 [facility] Comment on above: Performed By: #### L IPID, BMP, LDLD, MG, CBCNO #### [address] Mean Corpuscular HGB Conc 33.9 g/dL Normal 32.5-35.6 [facility] Comment on above: Performed By: #### L IPID, BMP, LDLD, MG, CBCNO #### [address] Platelet mean volume (Bld) [Entitic vol] 7.8 fL Normal 6.6-10.1 [facility] Comment on above: Result Comment: PERF ORMED BY: [place] [address] PATHOLOGIST [employer] LE[employer] RADHA CARR M.D. Performed By: #### L IPID, BMP, LDLD, MG, CBCNO #### [address] Platelets (Bld) [#/Vol] 194 10*3/uL Normal 150-450 [facility] Comment on above: Performed By: #### L IPID, BMP, LDLD, MG, CBCNO #### [address] RBC (Bld) [#/Vol] 4.31 10*6/uL Normal 3.90-5.60 [facility] Comment on above: Performed By: #### L IPID, BMP, LDLD, MG, CBCNO #### [address] WBC (Bld) [#/Vol] 6.6 10*3/uL Normal 4.1-10.5 [facility] Comment on above: Performed By: #### L IPID, BMP, LDLD, MG, CBCNO #### [address] Leukocytes [#/volume] correc desean for nucleated erythrocytes in Blood by Automated counOrdered By: Shaila Bowen on 07-13-2023 WBC corrected for nucl RBC Auto (Bld) [#/Vol] 6.6 10*3/uL 4.1-10.5 [facility] MCH Auto (RBC) [Entitic mass ]Ordered By: Shaila Bowen on 07-13-2023 MCH (RBC) [Entitic mass] 31.4 pg 27.5-35.2 [facility] MCHC Auto (RBC) [Mass/Vol]Or dered By: Shaila Bowen on 07-13-2023 MCHC (RBC) [Mass/Vol] 33.9 g/dL 32.5-35.6 [facility] MCV Auto (RBC) [Entitic vol] Ordered By: Shaila Bowen on 07-13-2023 MCV (RBC) [Entitic vol] 92.7 fL 83.5-101 [facility] No Panel InformationOrdered By: Shaila Bowen on 07-13-2023 Bedside Glucose Comment Glu2: cleaned meter [facility] Estimated GFR (CKD-EPI) 47.459 mL/Min [facility] Creatinine Clearance (Chem 57.55 [facility] Platelet mean volume Auto (B ld) [Entitic vol]Ordered By: Shaila Bowen on 07-13-2023 Platelet mean volume (Bld) [Entitic vol] 7.8 fL 6.6-10.1 [facility] Platelets Auto (Bld) [#/Vol] Ordered By: Shaila Bowen on 07-13-2023 Platelets (Bld) [#/Vol] 194 10*3/uL 150-450 [facility] Potassium [Moles/volume] in Serum or PlasmaOrdered By: Shaila Bowen on 07-13-2023 Potassium [Moles/Vol] 4.1 mmol/L 3.5-5.1 [facility] RBC Auto (Bld) [#/Vol]Ordere d By: Shaila Bowen on 07-13-2023 RBC (Bld) [#/Vol] 4.31 10*6/uL 3.90-5.60 [facility] Serum or plasma anion gap de terminationOrdered By: Shaila Bowen on 07-13-2023 Anion gap [Moles/Vol] 11.8 mmol/L 6.0-15.0 [facility] Sodium [Moles/volume] in Ser um or PlasmaOrdered By: Shaila Bowen on 07-13-2023 Sodium [Moles/Vol] 140 mmol/L 136-145 [facility] Urea nitrogen [Mass/volume] in Serum or PlasmaOrdered By: Shaila Bowen on 07-13-2023 Urea nitrogen [Mass/Vol] 18 mg/dL 7-25 [facility] Ammoniaon 07-12-2023 Ammonia (P) [Moles/Vol] 27 umol/L Normal [facility] Comment on above: Result Comment: PERF ORMED BY: [place] [address] PATHOLOGIST [employer] LE[employer] RADHA CARR M.D. Performed By: #### L IPID, BMP, LDLD, MG, CBCNO #### [facility] [address] [place] [address] [place] Ammonia [Moles/volume] in Pl asmaOrdered By: Leydimelchor Melanievicente on 07-12-2023 Ammonia (P) [Moles/Vol] 27 umol/L [facility] Basic Metabolic Panelon 06-22 Anion gap [Moles/Vol] 10.5 mmol/L Normal 6.0-15.0 [facility] Comment on above: Performed By: #### L IPID, BMP, LDLD, MG, CBCNO #### [facility] [address] [place] [address] [place] Calcium [Mass/Vol] 8.7 mg/dL Normal 8.6-10.3 [facility] Comment on above: Performed By: #### L IPID, BMP, LDLD, MG, CBCNO #### [facility] [address] [place] [address] [place] Chloride [Moles/Vol] 111 mmol/L High 98-107 [facility] Comment on above: Performed By: #### L IPID, BMP, LDLD, MG, CBCNO #### [facility] [address] [place] [address] [place] CO2 [Moles/Vol] 22.5 mmol/L Normal 21.0-31.0 [facility] Comment on above: Performed By: #### L IPID, BMP, LDLD, MG, CBCNO #### [address] Creatinine [Mass/Vol] 1.58 mg/dL High 0.70-1.30 [facility] Comment on above: Performed By: #### L IPID, BMP, LDLD, MG, CBCNO #### [place] [address] [place] Creatinine Clr Calc Pharmacy 58.64 Normal [facility] Comment on above: Performed By: #### L IPID, BMP, LDLD, MG, CBCNO #### [place] [address] [place] GFR/1.73 sq M.predicted MDRD (S/P/Bld) [Vol rate/Area] 48.543 mL/min/{1.73_m2} Normal [facility] Comment on above: Performed By: #### L IPID, BMP, LDLD, MG, CBCNO #### [address] Glucose [Mass/Vol] 203 mg/dL High 70-100 [facility] Comment on above: Result Comment: [facility] Glucose Reference Range is dependent on time and content of last meal. Glucose of more than 200 mg/dL in a nonstressed, ambulatory subject supports the diagnosis of Diabetes Mellitus. ADA recommended reference range Performed By: #### L IPID, BMP, LDLD, MG, CBCNO #### [address] Potassium [Moles/Vol] 4.0 mmol/L Normal 3.5-5.1 [facility] Comment on above: Performed By: #### L IPID, BMP, LDLD, MG, CBCNO #### [place] [address] [place] Sodium [Moles/Vol] 140 mmol/L Normal 136-145 [facility] Comment on above: Performed By: #### L IPID, BMP, LDLD, MG, CBCNO #### [facility] [address] [place] [address] [place] Urea nitrogen [Mass/Vol] 17 mg/dL Normal 7-25 [facility] Comment on above: Performed By: #### L IPID, BMP, LDLD, MG, CBCNO #### [facility] [address] Cholesterol [Mass/volume] in Serum or PlasmaOrdered By: Shaila Bowen on 07-12-2023 Cholesterol [Mass/Vol] 197 mg/dL 140-200 [facility] Comment on above: Chol less than 200 m g/dl low riskChol 201-239 mg/dl borderline riskChol 240 mg/dl and greater high risk Cholesterol in LDL Calc [Mas s/Vol]Ordered By: Shaila Bowen on 07-12-2023 Cholesterol in LDL [facility]Mass/Vol] [facility] on [facility]: Test not performed Cholesterol in LDL [Mass/vol ume] in Serum or PlasmaOrdered By: Shaila Bowen on 07-12-2023 Cholesterol in LDL [Mass/Vol] 117 mg/dL 0-100 [facility] Comment on above: LDL ATP III CLASSIFI CATIONLDL less than 100 mg/dL OptimalLDL 100-129 mg/dL Near or above optimalLDL 130-159 mg/dL Borderline highLDL 160-189 mg/dL HighLDL greater than 189 mg/dL Very high Cholesterol in VLDL Calc [Ma ss/Vol]Ordered By: Shaila Bowen on 07-12-2023 Cholesterol in VLDL [Mass/Vol] 87 mg/dL [facility] ECH echo transthoracicon ECH echo transthoracic [facility] [address] [place] [address] [place] [address] Echocardiogram Signed Patient: Rod Mathias MR#: [id number] 1426 : 1960 Acct:[id number] Age/Sex: 62 / M ADM Date: 07/11/23 Loc: Room: [address] [place] [address] Type: ADM INOo Attending Dr: Shaila Bowen MD Ordering Provider: Shaila Bowen MD Date of Service: 07/11/23 ECH/ECH echo transthoracic: with agitated saline Copies to: Nilo Mcbride MD, [facility] Shaila Bowen MD Weight: 235 lb Performed By: Wanda Oconnell RDCS BSA: 2.3 m2 BP: 105/60 mmHg HR: 73 Reason For Study: AMS. History: CKD. DM. CVA. TIA. HTN. HLD. Interpretation Summary Ejection Fraction = 55-60%. The left ventricular size, thickness and function are normal The left ventricular wall motion is normal. Normal transthoracic echocardiogram. Procedure/Quality: A two-dimensional transthoracic echocardiogram with color flow and Doppler was performed. The study was technically good in quality. Left Ventricle: The left ventricular size, thickness and function are normal. Ejection Fraction = 55-60%. The left ventricular wall motion is normal. Left Atrium: The left atrium appears normal in size. The atrial septum appears normal. Right Atrium: The right atrium appears normal in size. Right Ventricle: The right ventricular size, thickness and function are normal. Aortic Valve: The aortic valve is normal in structure and function. No aortic regurgitation is present. Mitral Valve: The mitral valve is normal in structure and function. There is no mitral regurgitation noted. Tricuspid Valve: The tricuspid valve is normal in structure and function. No tricuspid regurgitation. Pulmonic Valve: The pulmonic valve is normal in structure and function. Arteries: The aortic root is normal size. Pericardium/Pleura: No pericardial effusion seen. There is no pleural effusion. IVC/Hepatic Viens: The inferior vena cava is normal in size, with a normal collapsibility index. Miscellaneous: No thrombus, vegetation or mass is seen. Measurements with Normals IVSd: 1.4 cm (0.7-1.1 cm)LVIDd: 4.1 cm (3.7-5.4 cm) LVPWd: 1.1 cm (0.7-1.1 cm)LVIDs: 2.6 cm (2.3-3.6 cm) LA dimension: 4.3 cm (2.3-4.0 cm)Ao root diam: 3.6 cm(2.0-3.6 cm) asc Aorta Diam: 3.1 cm(2.1-3.4cm) Doppler with Normals LV V1 max: 89.5 cm/sec (0.7-1.7m/s)MV E max lamar: 104.0 cm/sec(0.8-1.3m/s) MV A max lamar: 99.0 cm/sec(0.0-0.0m/s) MV E/A: 1.1 (<1.5) MMode/2D Measurements Calculations TAPSE: 2.9 cm FS: 36.4 % Ao root area: LVOT diam: 2.2 cm RV S Lamar: EDV(Teich): 9.9 cm2 LVOT area: 3.7 cm2 19.3 cm/sec 73.4 ml ESV(Teich): 24.5 ml EF(Teich): 66.7 % __ LVLd ap4: 8.0 cm SV(MOD-sp4): LAV(MOD-sp4): LA A2 area: 17.6 cm2 EDV(MOD-sp4): 53.5 ml 40.7 ml 96.7 ml LAV(MOD-sp2): LA A4 area: 15.8 cm2 LVLs ap4: 6.6 cm 46.2 ml LA length (vol): ESV(MOD-sp4): 4.8 cm 43.2 ml LA vol: 49.4 ml EF(MOD-sp4): 55.3 % LA vol index: 21.9 ml/m2 Doppler Measurements Calculations MV dec time: E/E' lat: 11.9 MV dec slope: Ao V2 max: 0.18 sec E/E' med: 11.1 127.9 cm/sec 589.4 cm/sec2 Ao max P.5 mmHg Ao mean P.0 mmHg Ao V2 mean: 95.9 cm/sec Ao V2 VTI: 25.3 cm ARCHIE(I,D): 2.7 cm2 ARCHIE(V,D): 2.6 cm2 __ LV V1 max PG: RAP systole: 3.2 mmHg 3.0 mmHg LV V1 mean P.0 mmHg LV V1 mean: 67.8 cm/sec LV V1 VTI: 18.1 cm Electronically signed by: NILO MCBRIDE MD, [facility] on 07/12/2023 02:06 PM Transcribed By: VERÓNICA Performed At: 07/12/23 0912 Signed By: Nilo Mcbride MD, [facility] 07/12/23 1406 Normal [facility] Glucose Poct Glucometerson 0 07-12-2023 Glucose [Mass/Vol] 160 mg/dL Normal [facility] Comment on above: Result Comment: [facility] om Glucose Reference Range is dependent on time and content of last meal. Glucose of more than 200 mg/dL in a nonstressed, ambulatory subject supports the diagnosis of Diabetes Mellitus. PERFORMED BY: [place] [address] PATHOLOGIST [employer] LEAD RADHA CARR M.D. Performed By: #### G LULS #### Point of Care testing , Commemt1 Glu2: Cleaned Meter Normal [facility] Comment on above: Result Comment: PERF ORMED BY: [place] [address] PATHOLOGIST [employer] LEAD RADHA CARR M.D. Performed By: #### G LULS #### Point of Care testing , Glucose [Mass/Vol] 158 mg/dL Normal [facility] Comment on above: Result Comment: [facility] Glucose Reference Range is dependent on time and content of last meal. Glucose of more than 200 mg/dL in a nonstressed, ambulatory subject supports the diagnosis of Diabetes Mellitus. Performed By: #### G LULS #### Point of Care testing , Commemt1 Glu2: Cleaned Meter Normal [facility] Comment on above: Result Comment: PERF ORMED BY: [place] [id number] PATHOLOGIST [employer] LEAD RADHA CARR M.D. Performed By: #### G LULS #### Point of Care testing , Performed By: #### L IPID, BMP, LDLD, MG, CBCNO #### [address] Glucose [Mass/Vol] 219 mg/dL Normal [facility] Comment on above: Result Comment: [facility] om Glucose Reference Range is dependent on time and content of last meal. Glucose of more than 200 mg/dL in a nonstressed, ambulatory subject supports the diagnosis of Diabetes Mellitus. Performed By: #### G ANAMIKA #### Point of Care testing , Glucose [Mass/Vol] 207 mg/dL Normal [facility] Comment on above: Result Comment: [facility] om Glucose Reference Range is dependent on time and content of last meal. Glucose of more than 200 mg/dL in a nonstressed, ambulatory subject supports the diagnosis of Diabetes Mellitus. Performed By: #### L IPID, BMP, LDLD, MG, CBCNO #### [address] Hemogram CBC Without Diffon 07-12-2023 Erythrocyte distribution width (RBC) [Ratio] 14.0 % Normal 12.0-14.8 [facility] Comment on above: Performed By: #### L IPID, BMP, LDLD, MG, CBCNO #### [address] Hematocrit (Bld) [Volume fraction] 40.7 % Normal 38.8-50.0 [facility] Comment on above: Performed By: #### L IPID, BMP, LDLD, MG, CBCNO #### [address] Hemoglobin (Bld) [Mass/Vol] 13.3 g/dL Normal 13.0-17.0 [facility] Comment on above: Performed By: #### L IPID, BMP, LDLD, MG, CBCNO #### [place] [address] [place] MCH (RBC) [Entitic mass] 30.6 pg Normal 27.5-35.2 [facility] Comment on above: Performed By: #### L IPID, BMP, LDLD, MG, CBCNO #### [place] [address] [place] MCV (RBC) [Entitic vol] 93.5 fL Normal 83.5-101 [facility] Comment on above: Performed By: #### L IPID, BMP, LDLD, MG, CBCNO #### [address] Mean Corpuscular HGB Conc 32.7 g/dL Normal 32.5-35.6 [facility] Comment on above: Performed By: #### L IPID, BMP, LDLD, MG, CBCNO #### [address] Platelet mean volume (Bld) [Entitic vol] 8.0 fL Normal 6.6-10.1 [facility] Comment on above: Result Comment: PERF ORMED BY: [place] [address] PATHOLOGIST [employer] LEAD RADHA CARR M.D. Performed By: #### L IPID, BMP, LDLD, MG, CBCNO #### [address] Platelets (Bld) [#/Vol] 192 10*3/uL Normal 150-450 [facility] Comment on above: Performed By: #### L IPID, BMP, LDLD, MG, CBCNO #### [address] RBC (Bld) [#/Vol] 4.35 10*6/uL Normal 3.90-5.60 [facility] Comment on above: Performed By: #### L IPID, BMP, LDLD, MG, CBCNO #### [address] WBC (Bld) [#/Vol] 6.8 10*3/uL Normal 4.1-10.5 [facility] Comment on above: Performed By: #### L IPID, BMP, LDLD, MG, CBCNO #### [address] LDL Cholesterol Measuredon 0 07-12-2023 LDL Cholesterol Measured 117 mg/dL High 0-100 [facility] Comment on above: Result Comment: LDL ATP III CLASSIFICATION LDL less than 100 mg/dL Optimal LDL 100-129 mg/dL Near or above optimal LDL 130-159 mg/dL Borderline high LDL 160-189 mg/dL High LDL greater than 189 mg/dL Very high PERFORMED BY: [place] [address] PATHOLOGIST [employer] LEAD RADHA CARR M.D. Performed By: #### L IPID, BMP, LDLD, MG, CBCNO #### [place] [id number] [facility] Lipid Panelon 07-12-2023 Cholesterol [Mass/Vol] 197 mg/dL Normal 140-200 [facility] Comment on above: Result Comment: Chol less than 200 mg/dl low risk Chol 201-239 mg/dl borderline risk Chol 240 mg/dl and greater high risk Performed By: #### L IPID, BMP, LDLD, MG, CBCNO #### [address] Cholesterol in HDL [Mass/Vol] 41 mg/dL Normal 23-92 [facility] Comment on above: Result Comment: HDL CHOL ATP-III CLASSIFICATION Cardiovascular Risk HDL > or equal to 60 mg/dL LOW HDL < 40 mg/dL HIGH Performed By: #### L IPID, BMP, LDLD, MG, CBCNO #### [address] Cholesterol.total/Chol esterol in HDL [Mass ratio] 4.8 {ratio} Normal <5.0 [facility] Comment on above: Result Comment: PERF ORMED BY: [place] [address] PATHOLOGIST [employer] LEAD RADHA CARR M.D. Performed By: #### L IPID, BMP, LDLD, MG, CBCNO #### [place] [id number] [place] LDL Cholesterol,Calculated Not performed Normal 0-100 [facility] Comment on above: Performed By: #### L IPID, BMP, LDLD, MG, CBCNO #### [facility] [address] Triglyceride w/Reflex 438 mg/dL High 0-149 [facility] Comment on above: Result Comment: TRIG ATP III CLASSIFICATION TRIG less than 150 mg/dL Normal TRIG 150-199 mg/dL Borderline high TRIG 200-500 mg/dL High TRIG greater than 500 mg/dL Very high Standard traceable to the Center for Disease Conrtrol and Prevention (CDC) test method. If the triglyceride result is greater than 400, LDLC and related calculations cannot be calculated and resulted. Performed By: #### L IPID, BMP, LDLD, MG, CBCNO #### [facility] [address] VLDL CHOLESTEROL 87 mg/dL Normal [facility] Comment on above: Performed By: #### L IPID, BMP, LDLD, MG, CBCNO #### [facility] [address] MR head/brain wo/w conon MR head/brain wo/w con [facility] [place] [address] [place] [address] MRI Report Signed Patient: Rod Mathias MR#: [id number] 1426 : 1960 Acct:[id number] Age/Sex: 62 / M ADM Date: 07/11/23 Loc: Room: [address] [place] [address] Type: ADM INOo Attending Dr: Shaila Bowen MD Copies to: DO Shaila Ovalle MD Ordering Provider: Mikey Rose DO Date of Service: 07/12/23 MR/MR head/brain wo/w con: syncope, right hemiparesis, brain fog MRI BRAIN WITHOUT AND WITH INTRAVENOUS CONTRAST CLINICAL DATA: Patient woke up on the floor yesterday. Syncope and confusion. Loss of balance, memory issues and right-sided numbness. COMPARISON: CT 07/11/2023 and MRI 10/02/2022 Multiecho, multiplanar imaging of the brain was performed before and after intravenous administration of 20 mL of ProHance. There is mild atrophy. The ventricles are normal in size and position. A few tiny foci of increased T2 and FLAIR signal are again seen within the white matter, unchanged from the comparison. There are no developing areas of abnormal signal intensity or enhancement within the supra or infratentorial brain. There is no restricted diffusion to suggest a recent ischemic event. No extra-axial collections or mass effect are seen. No midline abnormalities are noted. The imaged paranasal sinuses are clear. MR/MR head/brain wo/w con IMPRESSION: MINIMAL NONSPECIFIC WHITE MATTER CHANGE, SIMILAR TO THE PRIOR. NO ACUTE INTRACRANIAL FINDINGS. Impression dictated by: Angelica Bar M.D.07/12/2023 8:10 PM Dictation Location: [place] [address] Transcribed By: [facility] 07/12/232009 Dictated By: Angelica Bar MD 07/12/231958 Signed By: 07/12/232009 Normal [facility] Magnesiumon 07-12-2023 Magnesium [Mass/Vol] 2.1 mg/dL Normal 1.9-2.7 [facility] Comment on above: Performed By: #### L IPID, BMP, LDLD, MG, CBCNO #### [facility] [address] Magnesium [Mass/volume] in S ayanna or PlasmaOrdered By: Shaila Bowen on 07-12-2023 Magnesium [Mass/Vol] 2.1 mg/dL 1.9-2.7 [facility] Serum or plasma high density lipoprotein (HDL) cholesterol measurementOrdered By: Shaila Bowen on 07-12-2023 Cholesterol in HDL [Mass/Vol] 41 mg/dL [facility] Comment on above: HDL CHOL ATP-III CLA SSIFICATION Cardiovascular RiskHDL > or equal to 60 mg/dL LOWHDL < 40 mg/dL HIGH Serum or plasma total choles terol/high density lipoprotein (HDL) cholesterol mass ratOrdered By: Shaila Bowen on 07-12-2023 Cholesterol.total/Chol esterol in HDL [Mass ratio] 4.8 {ratio} <5.0 [facility] Triglyceride [Mass/volume] i n Serum or PlasmaOrdered By: Shaila Bowen on 07-12-2023 Triglyceride [Mass/Vol] 438 mg/dL 0-149 [facility] Comment on above: If the triglyceride result is greater than 400, LDLC and related calculations cannot be calculated and resulted.TRIG ATP III CLASSIFICATIONTRIG less than 150 mg/dL NormalTRIG 150-199 mg/dL Borderline highTRIG 200-500 mg/dL High TRIG greater than 500 mg/dL Very highStandard traceable to the Center for Disease Conrtrol and Prevention (CDC) test method. US carotid doppler BIon 06-22 US carotid doppler BI [facility] [place] [address] [place] [address] Ultrasound Report Signed Patient: Rod Mathias MR#: [id number] 1426 : 1960 Acct:[id number] Age/Sex: 62 / M ADM Date: 07/11/23 Loc: Room: [address] [place] [address] Type: ADM INOo Attending Dr: Shaila Bowen MD Ordering Provider: Shaila Bowen MD Date of Service: 07/11/23 US/US carotid doppler BI: syncope Copies to: Shaila Bowen MD CAROTID DUPLEX INDICATION: Syncope numbness and tingling. PROCEDURE: Color-flow duplex scanning is used to interrogate the extracranial carotid arterial system, as well as both vertebral arteries. The proximal right internal carotid artery shows a highest peak systolic velocity of 91.8 cm/s with an end-diastolic velocity of 21.7 cm/s . The mid internal carotid artery measures 88.3 cm/s peak systolic with an end-diastolic velocity of 22.4 cm/s . The distal segment measures 42.7 cm/s peak systolic with an end diastolic velocity of 13 cm/s . The velocities of the right common carotid artery are 131 cm/s peak systolic and 18 cm/s end- diastolic proximally and 92.5 cm/s peak systolic and 17.5 cm/s end-diastolic distally. The peak systolic velocity ratio of the internal to the common carotid artery is 0.99 . The right external carotid artery measures 117 cm/s peak systolic. The right vertebral artery is patent at 34.1 cm/s peak systolic and with antegrade flow. The proximal left internal carotid artery shows a highest peak systolic velocity of 77.7 cm/s with an end-diastolic velocity of 16.8 cm/s . The mid internal carotid artery measures 59 cm/s peak systolic with an end-diastolic velocity of 19.9 cm/s . The distal segment measures 55.3 cm/s peak systolic with an end diastolic velocity of 13.7 cm/s . The velocities of the left common carotid artery are 113 cm/s peak systolic and 18.9 cm/s end-diastolic proximally and 93.9 cm/s peak systolic and 15.4 cm/s end-diastolic distally. The peak systolic velocity ratio of the internal to the common carotid artery is 0.83 . The left external carotid artery measures 160 cm/s peak systolic. The left vertebral artery is patent at 35.1 cm/s peak systolic with antegrade flow. US/US carotid doppler BI IMPRESSION: NO HEMODYNAMICALLY SIGNIFICANT STENOSIS OF EITHER EXTRACRANIAL INTERNAL CAROTID ARTERY. BOTH VERTEBRAL ARTERIES ARE PATENT WITH ANTEGRADE FLOW. Impression dictated by: Arun Collier MD07/12/2023 10:17 AM Dictation Location: [facility] Tech: Candy Chatterjee Transcribed By: [facility] 07/12/23 1017 Dictated By: Arun Collier MD 07/12/23 1017 Signed By: 07/12/23 1017 Normal [facility] Activated partial thrombopla stin time (aPTT) in platelet poor plasma by coagulation aOrdered By: César Arreaga on 07-11-2023 aPTT Coag (PPP) [Time] 28.5 s 25.1-36.5 [facility] Comment on above: A hematocrit value g reater than 55% may lead to inaccurate results in coagulation testing. Patients having hematocrit values >55% require a special collection tube for coagulation studies. Please contact the laboratory at [phone] for redraw instructions. Alanine aminotransferase [En zymatic activity/volume] in Serum or PlasmaOrdered By: César Arreaga on 07-11-2023 ALT [Catalytic activity/Vol] 18 U/L 7-52 [facility] Albumin [Mass/volume] in Ser um or Plasma by Bromocresol green (BCG) dye binding methoOrdered By: César Arreaga on 07-11-2023 Albumin BCG dye [Mass/Vol] 4.7 g/dL 3.5-5.7 [facility] Alkaline phosphatase [Enzyma tic activity/volume] in Serum or PlasmaOrdered By: César Arreaga on 07-11-2023 ALP [Catalytic activity/Vol] 94 U/L 34-104 [facility] Arterial Blood Gason 023 ABG Base Excess -4.6 mmol/L Low -3.0-3.0 [facility] Comment on above: Performed By: #### A BG #### Point of Care testing , ABG Frac Inspired O2 21 % Normal [facility] Comment on above: Performed By: #### A BG #### Point of Care testing , ABG Oxygen Content 8.7 mmol/L Normal 6.6-9.7 [facility] Comment on above: Performed By: #### A BG #### Point of Care testing , ABG Oxygen Saturation 95.7 % Normal 95.0-100.0 [facility] Comment on above: Performed By: #### A BG #### Point of Care testing , ABG PCO2 33.2 mm[Hg] Low 35.0-45.0 [facility] Comment on above: Performed By: #### A BG #### Point of Care testing , ABG PH 7.39 Normal 7.35-7.45 [facility] Comment on above: Performed By: #### A BG #### Point of Care testing , ABG PO2 77.1 mm[Hg] Low 80.0-100.0 [facility] Comment on above: Performed By: #### A BG #### Point of Care testing , CO2 [Moles/Vol] 20.4 mmol/L Low 23.0-27.0 [facility] Comment on above: Performed By: #### A BG #### Point of Care testing , HCO3 (Bld) [Moles/Vol] 19.4 mmol/L Low 23.0-29.0 [facility] Comment on above: Performed By: #### A BG #### Point of Care testing , Respiratory Critical Normal [facility] Comment on above: Result Comment: Crit ical Value called on: 07/11/2023 at 18:36 PERFORMED BY: [place] [address] PATHOLOGIST [employer] LEAD RADHA CARR M.D. Performed By: #### A BG #### Point of Care testing , VBG Draw Site Left Radial Normal [facility] Comment on above: Performed By: #### A BG #### Point of Care testing , Aspartate aminotransferase [ Enzymatic activity/volume] in Serum or PlasmaOrdered By: César Arreaga on 07-11-2023 AST [Catalytic activity/Vol] 15 U/L 13-39 [facility] B-Type Natriuretic Peptideon 07-11-2023 Natriuretic peptide B (Bld) [Mass/Vol] 10.0 pg/mL Normal 5-100 [facility] Comment on above: Result Comment: PERF ORMED BY: [place] [address] PATHOLOGIST [employer] LEAD RADHA CARR M.D. Performed By: #### U A #### [address] Bacterial blood cultureOrder ed By: César Arreaga on 07-11-2023 Bacteria identified Cx Nom (Bld) NO GROWTH 5 DAYS [facility] Basic Metabolic Panelon 06-22 Anion gap [Moles/Vol] 15.1 mmol/L High 6.0-15.0 [facility] Comment on above: Performed By: #### L IPID, BMP, LDLD, MG, CBCNO #### [facility] [address] [place], [place] [id number] [facility] Calcium [Mass/Vol] 9.7 mg/dL Normal 8.6-10.3 [facility] Comment on above: Performed By: #### L IPID, BMP, LDLD, MG, CBCNO #### [facility] [address] [place] [address] [place] Chloride [Moles/Vol] 107 mmol/L Normal 98-107 [facility] Comment on above: Performed By: #### L IPID, BMP, LDLD, MG, CBCNO #### [address] CO2 [Moles/Vol] 23.0 mmol/L Normal 21.0-31.0 [facility] Comment on above: Performed By: #### L IPID, BMP, LDLD, MG, CBCNO #### [place] [address] [place] Creatinine [Mass/Vol] 1.50 mg/dL High 0.70-1.30 [facility] Comment on above: Performed By: #### L IPID, BMP, LDLD, MG, CBCNO #### [place] [address] [place] Creatinine Clr Calc Pharmacy 61.83 Normal [facility] Comment on above: Result Comment: PERF ORMED BY: [place] [address] PATHOLOGIST [employer] LEAD RADHA CARR M.D. Performed By: #### L IPID, BMP, LDLD, MG, CBCNO #### [place] [address] [place] GFR/1.73 sq M.predicted MDRD (S/P/Bld) [Vol rate/Area] 51.666 mL/min/{1.73_m2} Normal [facility] Comment on above: Performed By: #### L IPID, BMP, LDLD, MG, CBCNO #### [place] [address] [place] Glucose [Mass/Vol] 172 mg/dL High 70-100 [facility] Comment on above: Result Comment: [facility] Glucose Reference Range is dependent on time and content of last meal. Glucose of more than 200 mg/dL in a nonstressed, ambulatory subject supports the diagnosis of Diabetes Mellitus. ADA recommended reference range Performed By: #### L IPID, BMP, LDLD, MG, CBCNO #### [place] [address] [place] Potassium [Moles/Vol] 4.1 mmol/L Normal 3.5-5.1 [facility] Comment on above: Performed By: #### L IPID, BMP, LDLD, MG, CBCNO #### [facility] [address] Sodium [Moles/Vol] 141 mmol/L Normal 136-145 [facility] Comment on above: Performed By: #### L IPID, BMP, LDLD, MG, CBCNO #### [facility] [address] Urea nitrogen [Mass/Vol] 15 mg/dL Normal 7-25 [facility] Comment on above: Performed By: #### L IPID, BMP, LDLD, MG, CBCNO #### [facility] [address] Basophils Auto (Bld) [#/Vol] Ordered By: César Arreaga on 07-11-2023 Basophils (Bld) [#/Vol] 0.1 10*3/uL 0.0-0.2 [facility] Basophils/100 WBC Auto (Bld) Ordered By: César Arreaga on 07-11-2023 Basophils/100 WBC (Bld) 0.7 % . [facility] Bilirubin Test strip Ql (U)O rdered By: César Arreaga on 07-11-2023 Bilirubin Ql (U) Negative Negative [facility] Bilirubin.direct [Mass/volum e] in Serum or PlasmaOrdered By: César Arreaga on 07-11-2023 Bilirubin.direct [Mass/Vol] 0.10 mg/dL 0.03-0.18 [facility] Bilirubin.total [Mass/volume ] in Serum or PlasmaOrdered By: César Arreaga on 07-11-2023 Bilirubin [Mass/Vol] 0.6 mg/dL 0.3-1.0 [facility] Blood Cultureon 07-11-2023 Bacteria identified Cx Nom (Bld) MARIA EUGENIA Rosa Notified AB 2048 NO GROWTH 5 DAYS PERFORMED BY: [place] [address] PATHOLOGIST [employer] LEAD RADHA CARR M.D. Normal [facility] Comment on above: Performed By: #### L IPID, BMP, LDLD, MG, CBCNO #### [facility] [address] Bacteria identified Cx Nom (Bld) NO GROWTH 5 DAYS PERFORMED BY: [place] [address] PATHOLOGIST SAL[employer] LEAD RADHA Choi [facility] Comment on above: Performed By: #### L IPID, BMP, LDLD, MG, CBCNO #### [facility] [address] COVID CepheidOrdered By: Ashley Arreaga on 07-11-2023 SARS-CoV-2 (COVID-19) Ab IA Ql Negative Negative [facility] Comment on above: This is a duplicate Cepheid Xpert Xpress CoV-2/Flu/RSV Plus RNA by RT-PCR result to be used for statistical tracking purpose only. SARS-CoV-2 (COVID-19) RNA ANGÉLICA+probe Ql (Unsp spec) [facility] COVID-19 / Flu A/B / RSV PCR on 07-11-2023 SARS-CoV-2 (COVID-19) RNA ANGÉLICA+probe Ql (Unsp spec) COVID-19 Cepheid Result Negative for SARS-CoV-2 RNA by RT-PCR Flu A Cepheid Result Negative for Flu A RNA by RT-PCR Flu B Cepheid Result Negative for Flu B RNA by RT-PCR RSV Cepheid Result Negative for RSV RNA by RT-PCR COVID19 Blank Space -- Reference: Negative COVID19 Blank Space -- Cepheid Disclaimer The Cepheid Xpert Xpress CoV-2/Flu/RSV Plus has Cepheid Disclaimer not been FDA cleared or approved; this test has Cepheid Disclaimer been authorized by FDA under an EUA for use by Cepheid Disclaimer authorized laboratories; this test has been Cepheid Disclaimer authorized only for the simultaneous qualitative Cepheid Disclaimer detection and differentiation of nucleic acids from Cepheid Disclaimer SARS-CoV-2, influenza A, influenza B, and Cepheid Disclaimer respiratory syncytial virus (RSV), and not for any Cepheid Disclaimer other viruses or pathogens; and this test is only Cepheid Disclaimer authorized for the duration of the declaration that Cepheid Disclaimer circumstances exist justifying the authorization of Cepheid Disclaimer emergency use of in vitro diagnostic tests for Cepheid Disclaimer detection and/or diagnosis of COVID-19 under Cepheid Disclaimer Section 564(b)(1) of the Act, 21 U.S.C. 360bbb- Cepheid Disclaimer 3(b)(1), unless the authorization is terminated or Cepheid Disclaimer revoked sooner. PERFORMED BY: [place] [address] PATHOLOGIST SAL[employer] LEAD RADHA CARR M.D. [place] [facility] Comment on above: Performed By: #### L IPID, BMP, LDLD, MG, CBCNO #### [address] head/brain wo conon 07-11 CT head/brain wo con [facility] [place] [address] CT Scan Report Signed Patient: Rod Mathias MR#: [id number] 1426 : 1960 Acct:[id number] Age/Sex: 62 / M ADM Date: 07/11/23 Loc: ER Room: Type: [facility] ER Attending Dr: Copies to: César Arreaga DO Ordering Provider: César Arreaga DO Date of Service: 07/11/23 CT/CT head/brain wo con: syncope CT head/brain wo con 07/11/2023 4:39 PM SIGNS AND SYMPTOMS: Found down, headache, confusion TECHNIQUE:Multi-detector CT axial slices of the brain were obtained without IV contrast. CT was performed with one or more of the following dose reduction techniques: Automated exposure control, adjustment of the mA and/or kV according to patient size, or use of iterative reconstruction technique. COMPARISON: 10/01/2022. FINDINGS: There is no shift of the midline structures, acute intracranial bleeding, mass effects, or evidence of acute ischemia. The ventricular system is normal in size. The brainstem and the cerebellum are unremarkable. The visualized intraorbital contents, the visualized paranasal sinuses, and the infratemporal soft tissues show no acute abnormality. The osseous structures in the skull base and the calvarium show no abnormality. CT/CT head/brain wo con IMPRESSION: No acute intracranial pathology. No significant interval change. Impression dictated by: Darien Roldan M.D.07/11/2023 5:32 PM Dictation Location: [place] [address] Transcribed By: THADDEUS 07/11/231731 Dictated By: Darien Roldan II, MD 07/11/231727 Signed By: 07/11/231731 Normal [facility] Cepheid COVID PCR Negativeon 07-11-2023 SARS-CoV-2 (COVID-19) RNA ANGÉLICA+probe Ql (Unsp spec) Negative Normal Negative [facility] Comment on above: Result Comment: This is a duplicate CepMapMyIDid Xpert Xpress CoV-2/Flu/RSV Plus RNA by RT-PCR result to be used for statistical tracking purpose only. PERFORMED BY: [place] [address] PATHOLOGIST [employer] LEAD RADHA CARR M.D. Performed By: #### L IPID, BMP, LDLD, MG, CBCNO #### [address] Color Auto (U)Ordered By: Luis Arreaga on 07-11-2023 Color (U) Yellow Yellow [facility] Complete Blood Count Auto Di ffon 07-11-2023 Basophils (Bld) [#/Vol] 0.1 10*3/uL Normal 0.0-0.2 [facility] Comment on above: Result Comment: PERF ORMED BY: [place] [address] PATHOLOGIST [employer] LE[employer] RADHA CARR M.D. Performed By: #### U A #### [place] [address] [place] Basophils/100 WBC (Bld) 0.7 % Normal . [facility] Comment on above: Performed By: #### U A #### [address] Eosinophils (Bld) [#/Vol] 0.1 10*3/uL Normal 0.0-0.45 [facility] Comment on above: Performed By: #### U A #### [address] Eosinophils/100 WBC (Bld) 1.0 % Normal . [facility] Comment on above: Performed By: #### U A #### [address] Erythrocyte distribution width (RBC) [Ratio] 14.3 % Normal 12.0-14.8 [facility] Comment on above: Performed By: #### U A #### [address] Hematocrit (Bld) [Volume fraction] 44.8 % Normal 38.8-50.0 [facility] Comment on above: Performed By: #### U A #### [address] Hemoglobin (Bld) [Mass/Vol] 14.9 g/dL Normal 13.0-17.0 [facility] Comment on above: Performed By: #### U A #### [place] [address] [place] Lymphocytes (Bld) [#/Vol] 2.4 10*3/uL Normal 1.00-4.8 [facility] Comment on above: Performed By: #### U A #### [place] [address] [place] Lymphocytes/100 WBC (Bld) 27.5 % Normal . [facility] Comment on above: Performed By: #### U A #### [place] [address] MCH (RBC) [Entitic mass] 30.8 pg Normal 27.5-35.2 [facility] Comment on above: Performed By: #### U A #### [address] MCV (RBC) [Entitic vol] 92.8 fL Normal 83.5-101 [facility] Comment on above: Performed By: #### U A #### [address] Mean Corpuscular HGB Conc 33.2 g/dL Normal 32.5-35.6 [facility] Comment on above: Performed By: #### U A #### [address] Monocytes (Bld) [#/Vol] 0.7 10*3/uL Normal 0.0-0.8 [facility] Comment on above: Performed By: #### U A #### [address] Monocytes/100 WBC (Bld) 16.92 % Normal 0.00-20.00 [facility] Comment on above: Performed By: #### U A #### [address] Monocytes/100 WBC (Bld) 8.1 % Normal . [facility] Comment on above: Performed By: #### U A #### [address] Neutrophils (Bld) [#/Vol] 5.6 10*3/uL Normal 1.8-7.7 [facility] Comment on above: Performed By: #### U A #### [address] Neutrophils/100 WBC (Bld) 62.7 % Normal . [facility] Comment on above: Performed By: #### U A #### [address] NRBC% 0.1 /100{WBC} Normal 0-0.5 [facility] Comment on above: Performed By: #### U A #### [facility] [address] Platelet mean volume (Bld) [Entitic vol] 8.5 fL Normal 6.6-10.1 [facility] Comment on above: Performed By: #### U A #### [facility] [address] [place] [address] [place] Platelets (Bld) [#/Vol] 222 10*3/uL Normal 150-450 [facility] Comment on above: Performed By: #### U A #### [facility] [address] [place] [address] [place] RBC (Bld) [#/Vol] 4.83 10*6/uL Normal 3.90-5.60 [facility] Comment on above: Performed By: #### U A #### [address] WBC (Bld) [#/Vol] 8.9 10*3/uL Normal 4.1-10.5 [facility] Comment on above: Performed By: #### U A #### [place] [address] [place] Creatine Kinaseon 07-11-2023 CK [Catalytic activity/Vol] 69 U/L Normal 30-223 [facility] Comment on above: Performed By: #### U A #### [address] Creatine kinase [Enzymatic a ctivity/volume] in Serum or PlasmaOrdered By: César Arreaga on 07-11-2023 CK [Catalytic activity/Vol] 69 U/L 30-223 [facility] ECG 12 lead ECGon 07-11-2023 ECG 12 lead ECG [facility] [place] [address] Electrocardiograph Report Signed Patient: Rod Mathias MR#: [id number] 1426 : 1960 Acct:[id number] Age/Sex: 62 / M ADM Date: 07/11/23 Loc: Room: [address] [place] [address] Type: ADM INOo Attending Dr: Shaila Bowen MD Ordering Provider: César Arreaga DO Date of Service: 07/11/23 ECG/ECG 12 lead ECG: CHEST PAIN Copies to: Test Reason : Blood Pressure : 147/079 mmHG Vent. Rate : 081 BPM Atrial Rate : 081 BPM P-R Int : 154 ms QRS Dur : 084 ms QT Int : 364 ms P-R-T Axes : 039 033 057 degrees QTc Int : 422 ms Normal sinus rhythm Cannot rule out Anterior infarct , age undetermined Abnormal ECG When compared with ECG of 06-FEB-2023 07:04, Nonspecific T wave abnormality now evident in Anterior leads Confirmed by César Arreaga DO ([id number]) on 07/11/2023 7:47:31 PM Referred By: Electronically Signed By:César Arreaga DO Transcribed By: MUS Signed By César Arreaga DO 1948 Normal [facility] Eosinophils Auto (Bld) [#/Vo l]Ordered By: César Arreaga on 07-11-2023 Eosinophils (Bld) [#/Vol] 0.1 10*3/uL 0.0-0.45 [facility] Eosinophils/100 WBC Auto (Bl d)Ordered By: César Arreaga on 07-11-2023 Eosinophils/100 WBC (Bld) 1.0 % . [facility] Folate [Mass/volume] in Seru m or PlasmaOrdered By: Shaila Bowen on 07-11-2023 Folate [Mass/Vol] 20.1 ng/mL >5.9 [facility] Comment on above: Folate reference ran ge: >5.9 ng/mlThe WHO technical consultation on folate and vitamin [id number] has determined that folate concentrations lessthan 4 ng/ml are considered deficient. Globulin Calc (S) [Mass/Vol] Ordered By: César Arreaga on 07-11-2023 Globulin (S) [Mass/Vol] 3.1 g/dL [facility] Glucose Poct Glucometerson 0 07-11-2023 Commemt1 Glu2: Cleaned Meter Normal [facility] Comment on above: Result Comment: PERF ORMED BY: [place] [address] PATHOLOGIST [employer] LEAD RADHA CARR M.D. Performed By: #### G ANAMIKA #### Point of Care testing , Glucose [Mass/Vol] 181 mg/dL Normal [facility] Comment on above: Result Comment: [facility] Glucose Reference Range is dependent on time and content of last meal. Glucose of more than 200 mg/dL in a nonstressed, ambulatory subject supports the diagnosis of Diabetes Mellitus. Performed By: #### G ANAMIKA #### Point of Care testing , Hepatic Panelon 07-11-2023 Albumin [Mass/Vol] 4.7 g/dL Normal 3.5-5.7 [facility] Comment on above: Performed By: #### L IPID, BMP, LDLD, MG, CBCNO #### [place] [address] [place] Albumin/Globulin [Mass ratio] 1.5 {ratio} Normal [facility] Comment on above: Performed By: #### L IPID, BMP, LDLD, MG, CBCNO #### [place] [address] [place] ALP [Catalytic activity/Vol] 94 U/L Normal 34-104 [facility] Comment on above: Performed By: #### L IPID, BMP, LDLD, MG, CBCNO #### [place] [address] [place] ALT [Catalytic activity/Vol] 18 U/L Normal 7-52 [facility] Comment on above: Performed By: #### L IPID, BMP, LDLD, MG, CBCNO #### [place] [address] [place] AST [Catalytic activity/Vol] 15 U/L Normal 13-39 [facility] Comment on above: Performed By: #### L IPID, BMP, LDLD, MG, CBCNO #### [place] [address] [place] Bilirubin [Mass/Vol] 0.6 mg/dL Normal 0.3-1.0 [facility] Comment on above: Performed By: #### L IPID, BMP, LDLD, MG, CBCNO #### [facility] [address] Bilirubin,Indirect 0.5 mg/dL Normal [facility] Comment on above: Performed By: #### L IPID, BMP, LDLD, MG, CBCNO #### [address] Bilirubin.indirect [Mass/Vol] 0.10 mg/dL Normal 0.03-0.18 [facility] Comment on above: Performed By: #### L IPID, BMP, LDLD, MG, CBCNO #### [address] Globulin (S) [Mass/Vol] 3.1 g/dL Normal [facility] Comment on above: Performed By: #### L IPID, BMP, LDLD, MG, CBCNO #### [address] Protein [Mass/Vol] 7.8 g/dL Normal 6.4-8.9 [facility] Comment on above: Performed By: #### L IPID, BMP, LDLD, MG, CBCNO #### [address] INR in Platelet poor plasma by Coagulation assayOrdered By: César Arreaga on 07-11-2023 INR Coag (PPP) [Relative time] 0.9 {INR} [facility] Comment on above: INR Therapeutic Rang e A) Pre- and Peroperative OAT started two weeks before surgery. NOT HIP SURGERY: 1.5 - 2.5 HIP SURGERY: 2 - 3B) Primary and secondary prevention of venous THROMBOSIS: 2 - 3C) Active venous thrombosis, pulmonary embolismand prevention of recurrent venous thrombosis: 2 - 3D) Prevention of arterial thromboembolismincluding patients with mechanical heart valves: 3 - 4.5 Ketones Auto test strip (U) [Mass/Vol]Ordered By: César Arreaga on 07-11-2023 Ketones (U) [Mass/Vol] Negative Negative [facility] - Chemistry and C hemistry - challengeOrdered By: César Arreaga on 07-11-2023 CO2 [Moles/Vol] 20.4 mmol/L 23.0-27.0 [facility] HCO3 (Bld) [Moles/Vol] 19.4 mmol/L 23.0-29.0 [facility] Lactate [Moles/volume] in Se rum or PlasmaOrdered By: César Arreaga on 07-11-2023 Lactate [Moles/Vol] 1.7 mmol/L 0.5-2.2 [facility] Lactic Acidon 07-11-2023 Lactate [Moles/Vol] 1.7 mmol/L Normal 0.5-2.2 [facility] Comment on above: Result Comment: PERF ORMED BY: [facility] [address] [place] [address] PATHOLOGIST [employer] LEAD RADHA CARR M.D. Performed By: #### L IPID, BMP, LDLD, MG, CBCNO #### [facility] [address] Lymphocytes Auto (Bld) [#/Vo l]Ordered By: César Arreaga on 07-11-2023 Lymphocytes (Bld) [#/Vol] 2.4 10*3/uL 1.00-4.8 [facility] Lymphocytes/100 WBC Auto (Bl d)Ordered By: César Arreaga on 07-11-2023 Lymphocytes/100 WBC (Bld) 27.5 % . [facility] Monocyte distribution width [Entitic volume] in Blood by AutomatedOrdered By: César Arreaga on 07-11-2023 Monocyte distribution width Auto (Bld) [Entitic vol] 16.92 % 0.00-20.00 [facility] Monocytes Auto (Bld) [#/Vol] Ordered By: César Arreaga on 07-11-2023 Monocytes (Bld) [#/Vol] 0.7 10*3/uL 0.0-0.8 [facility] Monocytes/100 WBC Auto (Bld) Ordered By: César Arreaga on 07-11-2023 Monocytes/100 WBC (Bld) 8.1 % . [facility] Natriuretic peptide B [Mass/ Vol]Ordered By: César Arreaga on 07-11-2023 Natriuretic peptide B (Bld) [Mass/Vol] 10.0 pg/mL 5-100 [facility] Neutrophils Auto (Bld) [#/Vo l]Ordered By: César Arreaga on 07-11-2023 Neutrophils (Bld) [#/Vol] 5.6 10*3/uL 1.8-7.7 [facility] Neutrophils/100 WBC Auto (Bl d)Ordered By: César Arreaga on 07-11-2023 Neutrophils/100 WBC (Bld) 62.7 % . [facility] Nitrite Test strip Ql (U)Ord ered By: César Arreaga on 07-11-2023 Nitrite Ql (U) Negative Negative [facility] No Panel InformationOrdered By: César Arreaga on 07-11-2023 Arterial Blood Base Excess -4.6 mmol/L -3.0-3.0 [facility] Arterial Blood Oxygen Content 8.7 mmol/L 6.6-9.7 [facility] Arterial Blood Oxygen Saturation 95.7 % 95.0-100.0 [facility] Arterial Blood Partial Pressure CO2 33.2 mm[Hg] 35.0-45.0 [facility] Arterial Blood Partial Pressure O2 77.1 mm[Hg] 80.0-100.0 [facility] Arterial Blood pH 7.39 7.35-7.45 [facility] Blood Gas Critical Value See comment [facility] Comment on above: Critical Value mcdowell d on: 07/11/2023 at 18:36 Blood Gas Sample Site Left radial [facility] FiO2 21 % [facility] Nucleated erythrocytes [Pres ence] in Blood by Automated countOrdered By: César Arreaga on 07-11-2023 Nucleated RBC Auto Ql (Bld) 0.1 /100{WBC} 0-0.5 [facility] Partial Thromboplastin Timeo n 07-11-2023 aPTT Coag (Bld) [Time] 28.5 s Normal 25.1-36.5 [facility] Comment on above: Result Comment: A he matocrit value greater than 55% may lead to inaccurate results in coagulation testing. Patients having hematocrit values >55% require a special collection tube for coagulation studies. Please contact the laboratory at [phone] for redraw instructions. PERFORMED BY: [address] [address] PATHOLOGIST [employer] LEAD RADHA CARR M.D. Performed By: #### U A #### [facility] [address] [place] [address] Protein Auto test strip (U) [Mass/Vol]Ordered By: César Arreaga on 07-11-2023 Protein (U) [Mass/Vol] Negative Negative [facility] Protein [Mass/volume] in Ser um or PlasmaOrdered By: César Arreaga on 07-11-2023 Protein [Mass/Vol] 7.8 g/dL 6.4-8.9 [facility] Prothrombin Time INRon 07-11 INR Coag (PPP) [Relative time] 0.9 {INR} Normal [facility] Comment on above: Result Comment: INR Therapeutic Range A) Pre- and Peroperative OAT started two weeks before surgery. NOT HIP SURGERY: 1.5 - 2.5 HIP SURGERY: 2 - 3 B) Primary and secondary prevention of venous THROMBOSIS: 2 - 3 C) Active venous thrombosis, pulmonary embolism and prevention of recurrent venous thrombosis: 2 - 3 D) Prevention of arterial thromboembolism including patients with mechanical heart valves: 3 - 4.5 Performed By: #### U A #### [facility] [address] [place], [place] [id number] [facility] PT Coag (PPP) [Time] 10.8 s Normal 9.0-12.9 [facility] Comment on above: Result Comment: A he matocrit value greater than 55% may lead to inaccurate results in coagulation testing. Patients having hematocrit values >55% require a special collection tube for coagulation studies. Please contact the laboratory at [phone] for redraw instructions. Performed By: #### U A #### [address] [address] [facility] Prothrombin time (PT)Ordered By: César Arreaga on 07-11-2023 PT Coag (PPP) [Time] 10.8 s 9.0-12.9 [facility] Comment on above: A hematocrit value g reater than 55% may lead to inaccurate results in coagulation testing. Patients having hematocrit values >55% require a special collection tube for coagulation studies. Please contact the laboratory at [phone] for redraw instructions. Serum or plasma albumin/glob ulin mass ratioOrdered By: César Arreaga on 07-11-2023 Albumin/Globulin [Mass ratio] 1.5 {ratio} [facility] Serum or plasma non-glucuron idated bilirubin measurement (mass/volume)Ordered By: César Arreaga on 07-11-2023 Bilirubin.indirect [Mass/Vol] 0.5 mg/dL [facility] Specific gravity Auto test s trip (U) [Rel density]Ordered By: César Arreaga on 07-11-2023 Specific gravity (U) [Rel density] 1.025 1.001-1.030 [facility] Thyroid Stimulating Hormoneo n 07-11-2023 TSH Qn 1.15 m[IU]/L Normal 0.45-5.33 [facility] Comment on above: Order Comment: Comme nt add on Comment Add on Result Comment: PERF ORMED BY: [place] [address] PATHOLOGIST [employer] RADHA CARR M.D. Performed By: #### L IPID, BMP, LDLD, MG, CBCNO #### [facility] [address] [place] [address] Thyrotropin [Units/volume] i n Serum or PlasmaOrdered By: Shaila Bowen on 07-11-2023 TSH Qn 1.15 m[IU]/L 0.45-5.33 [facility] Troponin I High Sensitivityo n 07-11-2023 Troponin I High Sensitivity 7.9 pg/mL Normal 0.0-20.0 [facility] Comment on above: Result Comment: PERF ORMED BY: [facility] [address] [place] [address] PATHOLOGIST [employer] LE[employer] RADHA CARR M.D. Performed By: #### U A #### [address] Troponin I.cardiac [Mass/vol ume] in Serum or Plasma by Detection limit <= 0.01 ng/Ordered By: César Arreaga on 07-11-2023 Troponin I.cardiac DL <= 0.01 ng/mL [Mass/Vol] 7.9 pg/mL 0.0-20.0 [facility] Urinalysison 07-11-2023 Appearance (U) Clear Normal Clear [facility] Comment on above: Order Comment: Name Collection Type:: Clean-Voided Midstream Performed By: #### L IPID, BMP, LDLD, MG, CBCNO #### [address] Bilirubin,Urine Negative Normal Negative [facility] Comment on above: Order Comment: Name Collection Type:: Clean-Voided Midstream Performed By: #### L IPID, BMP, LDLD, MG, CBCNO #### [address] Color (U) Yellow Normal Yellow [facility] Comment on above: Order Comment: Name Collection Type:: Clean-Voided Midstream Performed By: #### L IPID, BMP, LDLD, MG, CBCNO #### [address] Glucose Ql (U) >=1000 High Normal [facility] Comment on above: Order Comment: Name Collection Type:: Clean-Voided Midstream Performed By: #### L IPID, BMP, LDLD, MG, CBCNO #### [address] Ketones Ql (U) Negative Normal Negative [facility] Comment on above: Order Comment: Name Collection Type:: Clean-Voided Midstream Performed By: #### L IPID, BMP, LDLD, MG, CBCNO #### [address] Leukocyte esterase Test strip Ql (U) Negative Normal Negative [facility] Comment on above: Order Comment: Name Collection Type:: Clean-Voided Midstream Performed By: #### L IPID, BMP, LDLD, MG, CBCNO #### [address] Nitrite,Urine Negative Normal Negative [facility] Comment on above: Order Comment: Name Collection Type:: Clean-Voided Midstream Performed By: #### L IPID, BMP, LDLD, MG, CBCNO #### [address] Occult Blood,Urine Negative Normal Negative [facility] Comment on above: Order Comment: Name Collection Type:: Clean-Voided Midstream Result Comment: PERF ORMED BY: [place] [address] PATHOLOGIST [employer] RADHA CARR M.D. Performed By: #### L IPID, BMP, LDLD, MG, CBCNO #### [address] pH (U) 5.5 [pH] Normal 5.0-9.0 [facility] Comment on above: Order Comment: Name Collection Type:: Clean-Voided Midstream Performed By: #### L IPID, BMP, LDLD, MG, CBCNO #### [address] Protein,Urine Negative Normal Negative [facility] Comment on above: Order Comment: Name Collection Type:: Clean-Voided Midstream Performed By: #### L IPID, BMP, LDLD, MG, CBCNO #### [address] Specificy [place],Urine 1.025 Normal 1.001-1.030 [facility] Comment on above: Order Comment: Name Collection Type:: Clean-Voided Midstream Performed By: #### L IPID, BMP, LDLD, MG, CBCNO #### [address] Urobilinogen,Urine Normal Normal Normal [facility] Comment on above: Order Comment: Name Collection Type:: Clean-Voided Midstream Performed By: #### L IPID, BMP, LDLD, MG, CBCNO #### [facility] [address] Urine clarity by refractomet ry automatedOrdered By: César Arreaga on 07-11-2023 Clarity Refractometry automated (U) Clear Clear [facility] Urine glucose measurement by automated test strip (mass/volume)Ordered By: César Arreaga on 07-11-2023 Glucose Auto test strip (U) [Mass/Vol] >=1000 mg/dL Normal [facility] Urine hemoglobin detection b y automated test stripOrdered By: César Arreaga on 07-11-2023 Hemoglobin Auto test strip Ql (U) Negative Negative [facility] Urine leukocyte esterase det ection by automated test stripOrdered By: César Arreaga on 07-11-2023 Leukocyte esterase Auto test strip Ql (U) Negative Negative [facility] Urobilinogen Auto test strip (U) [Mass/Vol]Ordered By: César Arreaga on 07-11-2023 Urobilinogen (U) [Mass/Vol] Normal mg/dL Normal [facility] Vit. B12/Folate Profileon Cobalamin (Vitamin B12) [Mass/Vol] 206 pg/mL Normal 180-914 [facility] Comment on above: Order Comment: Trang nt add on Comment Add on Performed By: #### L IPID, BMP, LDLD, MG, CBCNO #### [facility] [address] Folate 20.1 ng/mL Normal >5.9 [facility] Comment on above: Order Comment: Commsudhir nt add on Comment Add on Result Comment: Lavern te reference range: >5.9 ng/ml The WHO technical consultation on folate and vitamin b12 deficiencies has determined that folate concentrations less than 4 ng/ml are considered deficient. Performed By: #### L IPID, BMP, LDLD, MG, CBCNO #### [facility] [address] [place] [address] [place] Vitamin B12 ser/plasOrdered By: Shaila Bowen on 07-11-2023 Cobalamin (Vitamin B12) [Mass/Vol] 206 pg/mL 180-914 [facility] WBC Auto (Bld) [#/Vol]Ordere d By: César Arreaga on 07-11-2023 WBC (Bld) [#/Vol] 8.9 10*3/uL 4.1-10.5 [facility] XR chest 1V portableon 07-11 XR chest 1V portable [facility] Main [address] [address] XRay Report Signed Patient: Rod Mathias MR#: [id number] 1426 : 1960 Acct:[id number] Age/Sex: 62 / M ADM Date: 07/11/23 Loc: Room: [address] [place] [address] Type: ADM INOo Attending Dr: Shaila Bowen MD Copies to: DO Shaila Parr MD Ordering Provider: César Arreaga DO Date of Service: 07/11/23 XR/XR chest 1V portable: CHEST PAIN XR chest 1V portable 07/11/2023 5:54 PM SIGNS AND SYMPTOMS: Confusion, found down, shortness of breath PROTOCOL: Frontal radiograph of the chest COMPARISON: 02/05/2023 FINDINGS: The trachea is midline. There is cardiomegaly. There is mild perihilar vascular prominence. There is no focal consolidation. There is anterior fusion of the lower cervical spine. The bony thorax is intact. XR/XR chest 1V portable IMPRESSION: There is cardiomegaly. There is mild perihilar vascular prominence. This may represent sequelae of congestive heart failure or volume overload. There is no focal consolidation. Impression dictated by: Darien Roldan M.D.07/11/2023 8:41 PM Dictation Location: [place] [address] Transcribed By: [facility] 07/11/232040 Dictated By: Darien Roldan II, MD 07/11/232038 Signed By: 07/11/232040 Normal [facility] pH Auto test strip (U)Ordere d By: César Arreaga on 07-11-2023 pH (U) 5.5 [pH] 5.0-9.0 [facility] Lab Reportson 06-10-2023 Lab Reports [id number]:127 Normal [facility] Lab Reports [id number]:127 Normal [facility] Activated partial thrombopla stin time (aPTT) in platelet poor plasma by coagulation aOrdered By: Mark Anthony Heath on 06-07-2023 aPTT Coag (PPP) [Time] 30.6 s 25.1-36.5 [facility] Basic Metabolic Panelon 05-21 Anion gap [Moles/Vol] 15.0 mmol/L Normal 6.0-15.0 [facility] Comment on above: Performed By: #### L IPID, BMP, LDLD, MG, CBCNO #### [address] Calcium [Mass/Vol] 9.6 mg/dL Normal 8.6-10.3 [facility] Comment on above: Result Comment: PERF ORMED BY: [place] [address] PATHOLOGIST [employer] LEAD RADHA CARR M.D. Performed By: #### L IPID, BMP, LDLD, MG, CBCNO #### [facility] [address] [place] [address] [place] Chloride [Moles/Vol] 106 mmol/L Normal 98-107 [facility] Comment on above: Performed By: #### L IPID, BMP, LDLD, MG, CBCNO #### [facility] [address] [place] [id number] [place] CO2 [Moles/Vol] 22.5 mmol/L Normal 21.0-31.0 [facility] Comment on above: Performed By: #### L IPID, BMP, LDLD, MG, CBCNO #### [facility] [address] [place] [address] [place] Creatinine [Mass/Vol] 1.52 mg/dL High 0.70-1.30 [facility] Comment on above: Performed By: #### L IPID, BMP, LDLD, MG, CBCNO #### [address] GFR/1.73 sq M.predicted MDRD (S/P/Bld) [Vol rate/Area] 50.852 mL/min/{1.73_m2} Normal [facility] Comment on above: Performed By: #### L IPID, BMP, LDLD, MG, CBCNO #### [address] Glucose [Mass/Vol] 185 mg/dL High 70-100 [facility] Comment on above: Result Comment: [facility] Glucose Reference Range is dependent on time and content of last meal. Glucose of more than 200 mg/dL in a nonstressed, ambulatory subject supports the diagnosis of Diabetes Mellitus. ADA recommended reference range Performed By: #### L IPID, BMP, LDLD, MG, CBCNO #### [address] Potassium [Moles/Vol] 4.5 mmol/L Normal 3.5-5.1 [facility] Comment on above: Performed By: #### L IPID, BMP, LDLD, MG, CBCNO #### [address] Sodium [Moles/Vol] 139 mmol/L Normal 136-145 [facility] Comment on above: Performed By: #### L IPID, BMP, LDLD, MG, CBCNO #### [address] Urea nitrogen [Mass/Vol] 16 mg/dL Normal 7-25 [facility] Comment on above: Performed By: #### L IPID, BMP, LDLD, MG, CBCNO #### [address] Basophils Auto (Bld) [#/Vol] Ordered By: Mark Anthony Heath on 06-07-2023 Basophils (Bld) [#/Vol] 0.1 10*3/uL 0.0-0.2 [facility] Basophils/100 WBC Auto (Bld) Ordered By: Mark Anthony Heath on 06-07-2023 Basophils/100 WBC (Bld) 0.5 % . [facility] Calcium [Mass/volume] in Ser um or PlasmaOrdered By: Mark Anthony Heath on 06-07-2023 Calcium [Mass/Vol] 9.6 mg/dL 8.6-10.3 [facility] Carbon dioxide, total [Moles /volume] in Serum or PlasmaOrdered By: Mark Anthony Heath on 06-07-2023 CO2 [Moles/Vol] 22.5 mmol/L 21.0-31.0 [facility] Chloride [Moles/volume] in S ayanna or PlasmaOrdered By: Mark Anthony Heath on 06-07-2023 Chloride [Moles/Vol] 106 mmol/L 98-107 [facility] Complete Blood Count Auto Di ffon 06-07-2023 Basophils (Bld) [#/Vol] 0.1 10*3/uL Normal 0.0-0.2 [facility] Comment on above: Result Comment: PERF ORMED BY: [place] [address] PATHOLOGIST [employer] RADHA CARR M.D. Performed By: #### L IPID, BMP, LDLD, MG, CBCNO #### [address] Basophils/100 WBC (Bld) 0.5 % Normal . [facility] Comment on above: Performed By: #### L IPID, BMP, LDLD, MG, CBCNO #### [facility] [address] Eosinophils (Bld) [#/Vol] 0.1 10*3/uL Normal 0.0-0.45 [facility] Comment on above: Performed By: #### L IPID, BMP, LDLD, MG, CBCNO #### [facility] [address] [place] [address] [place] Eosinophils/100 WBC (Bld) 0.5 % Normal . [facility] Comment on above: Performed By: #### L IPID, BMP, LDLD, MG, CBCNO #### [address] Erythrocyte distribution width (RBC) [Ratio] 13.8 % Normal 12.0-14.8 [facility] Comment on above: Performed By: #### L IPID, BMP, LDLD, MG, CBCNO #### [address] Hematocrit (Bld) [Volume fraction] 43.2 % Normal 38.8-50.0 [facility] Comment on above: Performed By: #### L IPID, BMP, LDLD, MG, CBCNO #### [address] Hemoglobin (Bld) [Mass/Vol] 14.5 g/dL Normal 13.0-17.0 [facility] Comment on above: Performed By: #### L IPID, BMP, LDLD, MG, CBCNO #### [address] Lymphocytes (Bld) [#/Vol] 2.2 10*3/uL Normal 1.00-4.8 [facility] Comment on above: Performed By: #### L IPID, BMP, LDLD, MG, CBCNO #### [address] Lymphocytes/100 WBC (Bld) 18.4 % Normal . [facility] Comment on above: Performed By: #### L IPID, BMP, LDLD, MG, CBCNO #### [address] MCH (RBC) [Entitic mass] 30.8 pg Normal 27.5-35.2 [facility] Comment on above: Performed By: #### L IPID, BMP, LDLD, MG, CBCNO #### [address] MCV (RBC) [Entitic vol] 92.0 fL Normal 83.5-101 [facility] Comment on above: Performed By: #### L IPID, BMP, LDLD, MG, CBCNO #### [address] Mean Corpuscular HGB Conc 33.5 g/dL Normal 32.5-35.6 [facility] Comment on above: Performed By: #### L IPID, BMP, LDLD, MG, CBCNO #### [address] Monocytes (Bld) [#/Vol] 0.7 10*3/uL Normal 0.0-0.8 [facility] Comment on above: Performed By: #### L IPID, BMP, LDLD, MG, CBCNO #### [address] Monocytes/100 WBC (Bld) 5.9 % Normal . [facility] Comment on above: Performed By: #### L IPID, BMP, LDLD, MG, CBCNO #### [address] Neutrophils (Bld) [#/Vol] 9.0 10*3/uL High 1.8-7.7 [facility] Comment on above: Performed By: #### L IPID, BMP, LDLD, MG, CBCNO #### [address] Neutrophils/100 WBC (Bld) 74.7 % Normal . [facility] Comment on above: Performed By: #### L IPID, BMP, LDLD, MG, CBCNO #### [address] NRBC% 0.1 /100{WBC} Normal 0-0.5 [facility] Comment on above: Performed By: #### L IPID, BMP, LDLD, MG, CBCNO #### [address] Platelet mean volume (Bld) [Entitic vol] 8.5 fL Normal 6.6-10.1 [facility] Comment on above: Performed By: #### L IPID, BMP, LDLD, MG, CBCNO #### [address] [address] [place] Platelets (Bld) [#/Vol] 232 10*3/uL Normal 150-450 [facility] Comment on above: Performed By: #### L IPID, BMP, LDLD, MG, CBCNO #### [facility] [address] RBC (Bld) [#/Vol] 4.70 10*6/uL Normal 3.90-5.60 [facility] Comment on above: Performed By: #### L IPID, BMP, LDLD, MG, CBCNO #### [facility] [address] WBC (Bld) [#/Vol] 12.0 10*3/uL High 4.1-10.5 [facility] Comment on above: Performed By: #### L IPID, BMP, LDLD, MG, CBCNO #### [facility] [address] Creatinine [Mass/volume] in Serum or PlasmaOrdered By: Mark Anthony Heath on 06-07-2023 Creatinine [Mass/Vol] 1.52 mg/dL 0.70-1.30 [facility] Eosinophils Auto (Bld) [#/Vo l]Ordered By: Mark Anthony Heath on 06-07-2023 Eosinophils (Bld) [#/Vol] 0.1 10*3/uL 0.0-0.45 [facility] Eosinophils/100 WBC Auto (Bl d)Ordered By: Mark Anthony Heath on 06-07-2023 Eosinophils/100 WBC (Bld) 0.5 % . [facility] Erythrocyte distribution wid th Auto (RBC) [Ratio]Ordered By: Mark Anthony Heath on 06-07-2023 Erythrocyte distribution width (RBC) [Ratio] 13.8 % 12.0-14.8 [facility] Glucose [Mass/volume] in Ser um or PlasmaOrdered By: Mark Anthony Heath on 06-07-2023 Glucose [Mass/Vol] 185 mg/dL 70-100 [facility] Comment on above: ADA recommended refe rence rangeRandom Glucose Reference Range is dependent on time and content of last meal. Glucose of more than 200 mg/dL in a nonstressed, ambulatory subject supports the diagnosis of Diabetes Mellitus. Hematocrit Auto (Bld) [Volum e fraction]Ordered By: Mark Anthony Heath on 06-07-2023 Hematocrit (Bld) [Volume fraction] 43.2 % 38.8-50.0 [facility] Hemoglobin [Mass/volume] in BloodOrdered By: Mark Anthony Heath on 06-07-2023 Hemoglobin (Bld) [Mass/Vol] 14.5 g/dL 13.0-17.0 [facility] INR in Platelet poor plasma by Coagulation assayOrdered By: Mark Anthony Heath on 06-07-2023 INR Coag (PPP) [Relative time] 1.0 {INR} [facility] Comment on above: INR Therapeutic Rang e A) Pre- and Peroperative OAT started two weeks before surgery. NOT HIP SURGERY: 1.5 - 2.5 HIP SURGERY: 2 - 3B) Primary and secondary prevention of venous THROMBOSIS: 2 - 3C) Active venous thrombosis, pulmonary embolismand prevention of recurrent venous thrombosis: 2 - 3D) Prevention of arterial thromboembolismincluding patients with mechanical heart valves: 3 - 4.5 Laboratory - CoagulationOrde red By: Mark Anthony Heath on 06-07-2023 PT Coag (PPP) [Time] 11.3 s 9.0-12.9 [facility] Leukocytes [#/volume] correc desean for nucleated erythrocytes in Blood by Automated counOrdered By: Mark Anthony Heath on 06-07-2023 WBC corrected for nucl RBC Auto (Bld) [#/Vol] 12.0 10*3/uL 4.1-10.5 [facility] Lymphocytes Auto (Bld) [#/Vo l]Ordered By: Mark Anthony Heath on 06-07-2023 Lymphocytes (Bld) [#/Vol] 2.2 10*3/uL 1.00-4.8 [facility] Lymphocytes/100 WBC Auto (Bl d)Ordered By: Mark Anthony Heath on 06-07-2023 Lymphocytes/100 WBC (Bld) 18.4 % . [facility] MCH Auto (RBC) [Entitic mass ]Ordered By: Mark Anthony Heath on 06-07-2023 MCH (RBC) [Entitic mass] 30.8 pg 27.5-35.2 [facility] MCHC Auto (RBC) [Mass/Vol]Or dered By: Mark Anthony Heath on 06-07-2023 MCHC (RBC) [Mass/Vol] 33.5 g/dL 32.5-35.6 [facility] MCV Auto (RBC) [Entitic vol] Ordered By: Mark Anthony Heath on 06-07-2023 MCV (RBC) [Entitic vol] 92.0 fL 83.5-101 [facility] Monocytes Auto (Bld) [#/Vol] Ordered By: Mark Anthony Heath on 06-07-2023 Monocytes (Bld) [#/Vol] 0.7 10*3/uL 0.0-0.8 [facility] Monocytes/100 WBC Auto (Bld) Ordered By: Mark Anthony Heath on 06-07-2023 Monocytes/100 WBC (Bld) 5.9 % . [facility] Neutrophils Auto (Bld) [#/Vo l]Ordered By: Mark Anthony Heath on 06-07-2023 Neutrophils (Bld) [#/Vol] 9.0 10*3/uL 1.8-7.7 [facility] Neutrophils/100 WBC Auto (Bl d)Ordered By: Mark Anthony Heath on 06-07-2023 Neutrophils/100 WBC (Bld) 74.7 % . [facility] No Panel InformationOrdered By: Mark Anthony Heath on 06-07-2023 Estimated GFR (CKD-EPI) 50.852 mL/Min [facility] Creatinine Clearance (Chem N/A [facility] Nucleated erythrocytes [Pres ence] in Blood by Automated countOrdered By: Mark Anthony Heath on 06-07-2023 Nucleated RBC Auto Ql (Bld) 0.1 /100{WBC} 0-0.5 [facility] Partial Thromboplastin Timeo n 06-07-2023 aPTT Coag (Bld) [Time] 30.6 s Normal 25.1-36.5 [facility] Comment on above: Result Comment: PERF ORMED BY: [facility] [address] [place] [address] PATHOLOGIST [employer] LEAD RADHA CARR M.D. Performed By: #### L IPID, BMP, LDLD, MG, CBCNO #### [facility] [address] Platelet mean volume Auto (B ld) [Entitic vol]Ordered By: Mark Anthony Heath on 06-07-2023 Platelet mean volume (Bld) [Entitic vol] 8.5 fL 6.6-10.1 [facility] Platelets Auto (Bld) [#/Vol] Ordered By: Mark Anthony Heath on 06-07-2023 Platelets (Bld) [#/Vol] 232 10*3/uL 150-450 [facility] Potassium [Moles/volume] in Serum or PlasmaOrdered By: Mark Anthony Heath on 06-07-2023 Potassium [Moles/Vol] 4.5 mmol/L 3.5-5.1 [facility] Prothrombin Time INRon 06-07 INR Coag (PPP) [Relative time] 1.0 {INR} Normal [facility] Comment on above: Result Comment: INR Therapeutic Range A) Pre- and Peroperative OAT started two weeks before surgery. NOT HIP SURGERY: 1.5 - 2.5 HIP SURGERY: 2 - 3 B) Primary and secondary prevention of venous THROMBOSIS: 2 - 3 C) Active venous thrombosis, pulmonary embolism and prevention of recurrent venous thrombosis: 2 - 3 D) Prevention of arterial thromboembolism including patients with mechanical heart valves: 3 - 4.5 Performed By: #### L IPID, BMP, LDLD, MG, CBCNO #### [facility] [address] PT Coag (PPP) [Time] 11.3 s Normal 9.0-12.9 [facility] Comment on above: Performed By: #### L IPID, BMP, LDLD, MG, CBCNO #### [facility] [address] RBC Auto (Bld) [#/Vol]Ordere d By: Mark Anthony Heath on 06-07-2023 RBC (Bld) [#/Vol] 4.70 10*6/uL 3.90-5.60 [facility] Serum or plasma anion gap de terminationOrdered By: Mark Anthony Heath on 06-07-2023 Anion gap [Moles/Vol] 15.0 mmol/L 6.0-15.0 [facility] Sodium [Moles/volume] in Ser um or PlasmaOrdered By: Mark Anthony Heath on 06-07-2023 Sodium [Moles/Vol] 139 mmol/L 136-145 [facility] Urea nitrogen [Mass/volume] in Serum or PlasmaOrdered By: Mark Anthony Heath on 06-07-2023 Urea nitrogen [Mass/Vol] 16 mg/dL 7-25 [facility] WBC Auto (Bld) [#/Vol]Ordere d By: Mark Anthony Heath on 06-07-2023 WBC (Bld) [#/Vol] 12.0 10*3/uL 4.1-10.5 [facility] Office Visit (Cardiology)on 04-11-2023 Follow-up visit Diagnoses/Problems Assessed Chest pain (786.50) (R07.9) Normal cardiac stress test (V72.85) HTN (hypertension) (401.9) (I10) Mixed hyperlipidemia (272.2) (E78.2) Diabetes (250.00) (E11.9) Former smoker (V15.82) (Z87.891) Quit 1999 Class 1 obesity with body mass index (BMI) of 31.0 to 31.9 in adult (278.00,V85.31) (E66.9,Z68.31) Orders Class 1 obesity with body mass index (BMI) of 31.0 to 31.9 in adult Healthy Weight Tips; Status:Complete; Done: [id number] Some eating tips that can help you lose weight.; Status:Complete; Done: [id number] SocHx: Former smoker Tobacco Use Screening; Status:Complete; Done: [id number] Patient Instructions Please bring all medicines, vitamins, and herbal supplements with you when you come to the office. Prescriptions will not be filled unless you are compliant with your follow up appointments or have a follow up appointment scheduled as per instruction of your physician. Refills should be requested at the time of your visit. Follow up as needed only Chief Complaint ROD MATHIAS is being seen for mpx results/[facility] d/c 02/06. Patient is a 62-year-old gentleman here for follow-up following recent stress testing. He was seen in consultation in the hospital in January, ruled out for NV, had low CATHERINE risk score; has underlying comorbidities that include hypertension, hyperlipidemia and diabetes. Stress perfusion imaging was normal. He feels a lot better now with appropriate antianxiety therapy Recommendations: Continue primary prevention, will follow-up as needed Surgical History Problems History of Cyst excision History of Hernia repair History of Lithotripsy History of Neck surgery History of Tonsillectomy Current Meds Medication NameInstruction amLODIPine Besylate 5 MG Oral TabletTAKE 1 TABLET DAILY. Aspirin 81 MG Oral Tablet Delayed ReleaseTAKE 1 TABLET DAILY. Atorvastatin Calcium 40 MG Oral TabletTAKE 1 TABLET AT BEDTIME. busPIRone HCl - 7.5 MG Oral TabletTake 1 tablet twice daily Invokana 100 MG Oral TabletTAKE 1 TABLET BY MOUTH ONCE DAILY 30 MINS BEFORE BREAKFAST Lexapro 20 MG Oral TabletTAKE 1 TABLET DAILY. LORazepam 0.5 MG Oral TabletTAKE 1 - 2 TABLETS EVERY 8 HOURS Losartan Potassium 100 MG Oral TabletTAKE 1 TABLET DAILY. Rybelsus 7 MG Oral TabletTake 1 tablet daily Updated medications with list from Marion Nuno MA Allergies Medication No Known Drug Allergies Recorded By: Nu Nuno; 04/11/2023 11:20:19 AM Social History Problems Caffeine use (V49.89) (Z78.9) Occasional coffee Former smoker (V15.82) (Z87.891) Quit 1999 No alcohol use No illicit drug use Review of Systems Constitutional: not feeling tired. Cardiovascular: no intermittent leg claudication and as noted in HPI. Respiratory: no cough and no shortness of breath. Gastrointestinal: no change in bowel habits and no blood in stools. Integumentary: no skin rashes. Neurological: no seizures and no frequent falls. All other systems have been reviewed and are negative for complaint. Vitals Vital Signs Recorded: 11Apr2023 11:24AM Heart Rate66, L Radial Urykzldk729, LUE, Sitting Mrndctbwl11, LUE, Sitting Height5 ft 10.5 in Tirjis281 lb BMI Ustocydyca13.4 kg/m2 BSA Calculated2.19 Tobacco Useb) No PHQ-2 #1. Over the last 2 weeks have you felt down, depressed or hopeless? (If yes, answer PHQ-9 below)No PHQ-2 #2. Over the last 2 weeks have you felt little interest or pleasure in doing things? (If yes, answer PHQ-9 below)No Falls Screening (Age 18+)a) No falls within the last year Physical Exam Constitutional: alert and in no acute distress. Neck: neck is supple, symmetric, trachea midline, no masses and no thyromegaly . Pulmonary: no increased work of breathing or signs of respiratory distress and lungs clear to auscultation. Cardiovascular: carotid pulses 2+ bilaterally with no bruit , JVP was normal, no thrills , regular rhythm, normal S1 and S2, no murmurs , pedal pulses 2+ bilaterally and no edema . Abdomen: abdomen non-tender, no masses and no hepatomegaly . Skin: skin warm and dry, normal skin turgor . Psychiatric judgment and insight is normal and oriented to person, place and time . Signatures Electronically signed by : Demarco Jefferson DO; Apr 11 2023 12:32PM EST (Author) Normal [facility] Tobacco Screening.on 023 Adult depression screening assessment [facility] Work Phone: Fall risk assessment a) No falls within the last year [facility] [employer] julianne 250 DO Work Phone: Tobacco use status [facility] b) No [facility] [employer] julianne 250 DO Work Phone: RAD - CT Reporton 04-08-2023 RAD - CT Report [id number]:127 Normal [facility] CT abdomen pelvis wo conon 0 04-04-2023 CT abdomen pelvis wo con [facility] [place] [address] [place] [address] CT Scan Report Signed Patient: Rod Mathias MR#: [id number] : 1960 Acct:[id number] Age/Sex: 62 / M ADM Date: 04/04/23 Loc: [facility] Room: Type: [facility] Attending Dr: Mark Anthony Heath MD Copies to: Mark Anthony Heath MD Ordering Provider: Mark Anthony Heath MD Date of Service: 04/04/23 CT/CT abdomen pelvis wo con: KIDNEY STONE ABDOMEN AND PELVIS WITHOUT CONTRAST COMPARISON: 05/19/2022 CLINICAL DATA: Follow-up kidney stones. Spiral images were obtained through the abdomen and pelvis without contrast. This CT exam was performed using one or more following dose reduction techniques: Automated exposure control, a djustment of the mA and/or kV according to patient size, or use of iterative reconstruction technique. Limited cuts through the lung bases show no contributory findings. Assessment of the intra-abdominal organs is slightly limited by the absence of contrast. No calcified gallstones are visualized. No intrahepatic masses are seen. The spleen, pancreas and adrenal glands show no acute findings. There is bilateral perinephric fibrofatty stranding. There are renal hypodensities measuring up to 3.5 cm in size which are not fully evaluated without contrast though are probably cysts. There is a nodule with associated calcification at the anterior left kidney which is unchanged. A cyst seen adjacent to it previously has resolved. A punctate stone is present at the midpole of the left kidney. There are 3 punctate stones at the right kidney and a larger stone within the renal pelvis on that side measuring 9 mm. No hydronephrosis is visualized. No ureteral dilatation or stones are noted. There is atherosclerotic plaque at the aorta and iliac arteries. Tiny lymph nodes are seen. No ascites is visualized. The small bowel loops are not distended. Stool is seen throughout the co jerrod. Degenerative changes are visualized at the spine and SI joints. Images through the pelvis show normal caliber small bowel loops. No appendiceal inflammation is present. There is a small amount of distal colonic stool. There is still an under distended segment of rectosigmoid colon with apparent wall thickening. No diverticular disease is noted. The urinary bladder is not well-distended and the wall appears thickened. The prostate is mildly prominent and contains calcification. There is a patulous left inguinal ring containing fat. No ascites is noted. CT/CT abdomen pelvis wo con IMPRESSION: BILATERAL NEPHROLITHIASIS. NO OBSTRUCTIVE UROPATHY. BILATERAL SIMPLE CYSTS AND A STABLE CYST WITH CALCIFIED WALL OF THE LEFT. UNDER DISTENDED BLADDER, LIMITING EVALUATION. MILD PROSTATE HYPERTROPHY. Impression dictated by: Angelica Bar M.D.04/04/2023 12:03 PM Dictation Location: [place] [address] Transcribed By: [facility] 04/04/23 1203 Dictated By: Angelica Bar MD 04/04/23 1153 Signed By: 04/04/23 1203 Normal [facility] [place] 03-13-2023 Screens [id number]:127 Normal [facility] Patient Educationon 03-12-20 Patient Education Nephrology Dietary Guidelines to Help Prevent Kidney Stones Kidney stones are deposits of minerals and salts that form inside your kidneys. Your risk of developing kidney stones may be greater depending on your diet, your lifestyle, the medicines you take, and whether you have certain medical conditions. Most people can lower their chances of developing kidney stones by following the instructions below. Your dietitian may give you more specific instructions depending on your overall health and the type of kidney stones you tend to develop. What are tips for following this plan? Reading food labels ? Choose foods with no salt added or low-salt labels. Limit your salt (sodium) intake to less than 1,500 mg a day. ? Choose foods with calcium for each meal and snack. Try to eat about 300 mg of calcium at each meal. Foods that contain 200?500 mg of calcium a serving include: ? 8 oz (237 mL) of milk, [id number] milk, and calcium-fortifiedfruit juice. Calcium-fortified means that calcium has been added to these drinks. ? 8 oz (237 mL) of kefir, yogurt, and soy yogurt. ? 4 oz (114 g) of tofu. ? 1 oz (28 g) of cheese. ? 1 cup (150 g) of dried figs. ? 1 cup (91 g) of cooked broccoli. ? One 3 oz (85 g) can of sardines or mackerel. Most people need 1,000?1,500 mg of calcium a day. Talk to your dietitian about how much calcium is recommended for you. Shopping ? Buy plenty of fresh fruits and vegetables. Most people do not need to avoid fruits and vegetables, even if these foods contain nutrients that may contribute to kidney stones. ? When shopping for convenience foods, choose: ? Whole pieces of fruit. ? Pre-made salads with dressing on the side. ? Low-fat fruit and yogurt smoothies. ? Avoid buying frozen meals or prepared deli foods. These can be high in sodium. ? Look for foods with live cultures, such as yogurt and kefir. ? Choose high-fiber grains, such as whole-wheat breads, oat bran, and wheat cereals. Cooking ? Do not add salt to food when cooking. Place a salt shaker on the table and allow each person to add his or her own salt to taste. ? Use vegetable protein, such as beans, textured vegetable protein (TVP), or tofu, instead of meat in pasta, casseroles, and soups. Meal planning ? Eat less salt, if told by your dietitian. To do this: ? Avoid eating processed or pre-made food. ? Avoid eating fast food. ? Eat less animal protein, including cheese, meat, poultry, or fish, if told by your dietitian. To do this: ? Limit the number of times you have meat, poultry, fish, or cheese each week. Eat a diet free of meat at least 2 days a week. ? Eat only one serving each day of meat, poultry, fish, or seafood. ? When you prepare animal protein, cut pieces into small portion sizes. For most meat and fish, one serving is about the size of the palm of your hand. ? Eat at least five servings of fresh fruits and vegetables each day. To do this: ? Keep fruits and vegetables on hand for snacks. ? Eat one piece of fruit or a handful of berries with breakfast. ? Have a salad and fruit at lunch. ? Have two kinds of vegetables at dinner. ? Limit foods that are high in a substance called oxalate. These include: ? Spinach (cooked), rhubarb, beets, sweet potatoes, and [place] chard. ? Peanuts. ? Potato chips, [place] of [place] fries, and baked potatoes with skin on. ? Nuts and nut products. ? Chocolate. ? If you regularly take a diuretic medicine, make sure to eat at least 1 or 2 servings of fruits or vegetables that are high in potassium each day. These include: ? Avocado. ? Banana. ? Sevier, prune, carrot, or tomato juice. ? Baked potato. ? Cabbage. ? Beans and split peas. Lifestyle ? Drink enough fluid to keep your urine pale yellow. This is the most important thing you can do. Spread your fluid intake throughout the day. ? If you drink alcohol: ? Limit how much you use to: ? 0?1 drink a day for women who are not . ? 0?2 drinks a day for men. ? Be aware of how much alcohol is in your drink. In the [place] one drink equals one 12 oz bottle of beer (355 mL), one 5 oz glass of wine (148 mL), or one 1? oz glass of hard liquor (44 mL). ? Lose weight if told by your health care provider. Work with your dietitian to find an eating plan and weight loss strategies that work best for you. General information ? Talk to your health care provider and dietitian about taking daily supplements. You may be told the following depending on your health and the cause of your kidney stones: ? Not to take supplements with vitamin C. ? To take a calcium supplement. ? To take a daily probiotic supplement. ? To take other supplements such as magnesium, fish oil, or vitamin B6. ? Take bhmq-xwf-mmuohyu and prescription medicines only as told by your health care provider. These include supplements. What foods should I limit? Limit your in (more content not included)... Normal [facility] Urology Office/Clinic Noteon 03-12-2023 Urology Office/Clinic Note Chief Complaint 5m f/u with [facility] Staff Rod is a 62 y/o male here for a 6 month f/u w/Renal US. Renal US done 12/12/2022 showed Anechoic cyst are noted measuring up to 3 cm in the greatest dimension. There is a hypoechoic focus in the superior pole measuring up to 1 cm which may represent a fat-containing lesion in the supratentorial prior CT. Cysto/ Lt retrograde pyelogram/Lt double J stent placement under fluoroscopic guidance/ESWL Lt ureteral calculus done 05/24/22. Previous DX: asymptomatic microscopic hematuria, flank pain, frequent urination, kidney stone, weak urinary stream. Dysuria: denies Incomplete bladder emptying: denies- pt feels he empties well Hematuria: _ Frequency: _ Urgency: _ Nocturia: _ Stream: weak stream in morning, ongoing for a long time. imrpoves throughout the day Leaking: pt denies Post void dripping: pt denies Wearing pads/ Depends: _ Urge incontinence: _pt denies Stress incontinence: _ Incontinence without Sensory Awareness: _ Abdominal pain: _ Flank pain: _ Sexual complaints: _ History of Present Illness Tests reviewed: reviewed UA, ANDRE. I have reviewed the previous health record information and history for this patient from Dr. Heath. I have reviewed and verified the staff HPI to be accurate for this encounter. There have been no associated fever, chills, flank pain, or blood in the urine. Denies any urinary infections since last encounter. Review of Systems ROS - Provider Constitutional: denies weight loss, denies hot flashes. Eyes: denies eye problems. Gastrointestinal: denies nausea, denies vomiting. Cardiovascular: denies chest pain or angina. Integumentary: no dryness Musculoskeletal: denies musculoskeletal symptoms. ENMT: denies otolaryngeal symptoms. Respiratory: no shortness of breath. Heme/Lymph: denies easy bleeding tendency, denies easy bruising tendency. Psychiatric: no confusion, no anxiety. Genitourinary: See HPI. Physical Exam Vitals & Measurements BP: 132/78 HT: 72 in HT: 182 cm WT: 101.4 kg WT: 223.08 lb BMI: 30.61 General Appearance: alert, no distress, well nourished, well developed male. Genitourinary: normal scrotum, normal testes, normal urethra, normal epididymis, normal vas deferens/spermatic cord. Flank Pain: none. Bladder: nonpalpable. Assessment/Plan 1. Kidney stone (N20.0: Calculus of kidney) CT AP wo con 05/19/22 - Obstructing 8 x 5 mm proximal left ureteral stone w/moderate hydronephrosis. 14 x 9 mm R renal pelvis calculus is slightly larger from prior exam. Bilateral punctate nonobstructing renal caluli. KUB 05/21/22 - 8 mm left mid ureteral stone, right renal calculus and bilateral nephrolithiasis. Cysto, L RGP, L stent placement, L ESWL 05/24/22. KUB 06/04/22 - Adequate position of L renal stent. Similar R renal calculus. Cysto, L stent removal, L URS, L RGP 06/15/22. KUB 06/15/22 - L Sided ureteral stent is in place with questionable calculus involving the proximal aspect of the L ureteral stent measuring 4 mm. R renal calculus unchanged. Moderate stool. ANDRE 12/12/22 - No stones noted. Reviewed US findings with pt. Explained that typically USs will visualize stones that large thought it is possible for them to miss large stones. Discussed CT to check for stone since previous image noted large stone. Pt agrees to proceed with CT. Follow up after CT AP wo con or sooner if needed. Pt understands and agrees with plan. 2. BPH with obstruction/lower urinary tract symptoms (N40.1: Benign prostatic hyperplasia with lower urinary tract symptoms) UA today negative for blood and infection. IPSS 6 (3 straining). Not taking any BPH meds. Most bothersome sx is weak stream in the morning. Discussed oral medications management which would be a lifelong maintenance drug vs outlet obstruction procedure. Pt not interested in starting alpha irena due to possible SE of retrograde ejaculation. Discussed different treatment options for bladder outlet obstruction including operative interventions such as TURP, versus less invasive options such as Rezum or Urolift, depending on prostate size and shape. Educational pamphlets provided. 3. Renal cyst (N28.1: Cyst of kidney, acquired) CT AP wo con 05/19/22 - Stable 3.8 cm R renal cyst. Stable 3 cm L renal cyst with region of wall calcification. KUB 05/24/22 - Calcified cyst of the midpole of the left kidney. ANDRE 12/12/22 - Right: Anechoic cyst are noted measuring up to 3 cm in the greatest dimension. There is a hypoechoic focus in the superior pole measuring up to 1 cm which may represent a fat-containing lesion in the supratentorial prior CT. Left: There is a shadowing echogenic focus near the inferior pole collecting system which may represent the previous partially calcified cortical cyst. Reviewed US findings with pt. Overall this patient has the history of kidney stones. The ultrasound obtained in November of this year demonstrated the complex cyst on the left and this needs ariana (more content not included)... Normal [facility] Comment on above: Result Comment: Elec tronically Signed By: Mark Anthony HEATH MD\.br\Date and Time Signed: 03/12/23 10:25 EDT\.br\Electronically Co-Signed By: Nathalie Edwards\.br\Date and Time Co-Signed: 03/12/23 10:23 EDT [facility] CARDIAC STRESS/REST INJE CTIONon 02-13-2023 [facility] CARDIAC STRESS/REST INJECTION Patient Name: ROD CUELLAR STUDY: MYOCARDIAL PERFUSION STRESS TEST WITH EXERCISE CONVERTED TO LEXISCAN Performing facility: [facility], [address] [place] [address], [address], [address] Provider: Teresa Jefferson DO, [facility] PCP: Dr. Zi Hernandez Supervising provider: Joann Hopson MD INDICATION: Chest Pain; Diabetes HTN Hyperlipidemia HISTORY: Gender: M; Age: 62 y/o ; Height: 0 cm; Weight: 0 kg. High Cholesterol; HTN; Diabetes; Chest Pain; Currently smoking. COMPARISON: No comparison. ACCESSION NUMBER(S): [id number]; [id number]; [id number] ORDERING CLINICIAN: DEMARCO JEFFERSON TECHNIQUE: TWO DAY protocol. Stress injection: Date: 02-13-23, 35.6 mCi of Myoview IV at 20 seconds after rapid injection of Lexiscan. Rest injection: Date: 02-14-23, 35.6 mCi of Myoview IV at rest. The patient had a rapid injection of 0.4mg of Lexiscan IV over 10 seconds. Imaging was performed by gated tomographic technique. STRESS TEST DATA: Resting heart rate was 74 BPM. Resting blood pressure was 124/76 mmHg. The patient exercised using a Esteban exercise protocol. 3:00 minutes exercised. 75% of MPHR achieved for age. 4.60 METS achieved. Maximum heart rate was 115 BPM. Maximum blood pressure was 144/82 mmHg. DTS 3. TREADMILL TEST TERMINATED DUE TO: Dyspnea. Test converted to Lexiscan. TEST TERMINATED DUE TO: Protocol completed. FINDINGS: STRESS TEST RESULTS: Resting electrocardiogram revealed normal sinus rhythm. The patient had no significant ECG changes with maximal stress. The patient did not have chest pains/symptoms during the procedure. There was a normal recovery phase. There were no significant dysrhythmias. Patient did not achieve 85% MPHR so test was immediately converted to Lexiscan. LEXISCAN INFUSION: The patient had a rapid injection of 0.4 mg of Lexiscan IV over 10 seconds. Resting electrocardiogram revealed normal sinus rhythm. The patient had no significant ECG changes with maximal stress. The patient did not have chest pains/symptoms during the procedure. There was a normal recovery phase. There were no significant dysrhythmias. IMAGING RESULTS: Image quality was good. Rest and stress tomographic images were reviewed and revealed normal perfusion without evidence of ischemia, myocardial infarction, or left ventricular dilatation with stress. Overall left ventricular systolic function appeared to be normal without regional wall motion abnormalities. LV ejection fraction was 78 %. TID is 0.8 and is normal. There was no evidence of attenuation artifact. IMPRESSION: Normal combined limited exercise/Lexiscan Myoview cardiac perfusion imaging stress test. No evidence of ischemia or myocardial infarction by perfusion imaging. Normal left ventricular systolic function, ejection fraction 78 %. No exercise provoked significant ischemic ECG changes or chest pain symptoms. No previous studies are available for comparison. Electronically signed by: NILO MCBRIDE MD Normal [facility] No Panel Informationon 02-13 Normal -[facility] Heart-Sandu julianne 250 DO Work Phone: Basophils Auto (Bld) [#/Vol] Ordered By: Lilia Bowers on 02-06-2023 Basophils (Bld) [#/Vol] 0.0 10*3/uL 0.0-0.2 [facility] Basophils/100 WBC Auto (Bld) Ordered By: Lilia Bowers on 02-06-2023 Basophils/100 WBC (Bld) 0.5 % . [facility] Calcium [Mass/volume] in Ser um or PlasmaOrdered By: Lilia Bowers on 02-06-2023 Calcium [Mass/Vol] 8.4 mg/dL 8.6-10.3 [facility] Carbon dioxide, total [Moles /volume] in Serum or PlasmaOrdered By: Lilia Bowers on 02-06-2023 CO2 [Moles/Vol] 21.0 mmol/L 21.0-31.0 [facility] Chloride [Moles/volume] in S ayanna or PlasmaOrdered By: Lilia Hoe on 02-06-2023 Chloride [Moles/Vol] 110 mmol/L 98-107 [facility] Cholesterol [Mass/volume] in Serum or PlasmaOrdered By: Lilia Bowers on 02-06-2023 Cholesterol [Mass/Vol] 146 mg/dL 140-200 [facility] Comment on above: Chol less than 200 m g/dl low riskChol 201-239 mg/dl borderline riskChol 240 mg/dl and greater high risk Cholesterol in LDL Calc [Mas s/Vol]Ordered By: Lilia Bowers on 02-06-2023 Cholesterol in LDL [Mass/Vol] 66 mg/dL 0-100 [facility] Comment on above: LDL ATP III CLASSIFI CATIONLDL less than 100 mg/dL OptimalLDL 100-129 mg/dL Near or above optimalLDL 130-159 mg/dL Borderline highLDL 160-189 mg/dL HighLDL greater than 189 mg/dL Very high Cholesterol in VLDL Calc [Ma ss/Vol]Ordered By: Lilia Bowers on 02-06-2023 Cholesterol in VLDL [Mass/Vol] 43 mg/dL [facility] Creatinine [Mass/volume] in Serum or PlasmaOrdered By: Lilia Bowers on 02-06-2023 Creatinine [Mass/Vol] 1.43 mg/dL 0.70-1.30 [facility] Eosinophils Auto (Bld) [#/Vo l]Ordered By: Lilia Bowers on 02-06-2023 Eosinophils (Bld) [#/Vol] 0.1 10*3/uL 0.0-0.45 [facility] Eosinophils/100 WBC Auto (Bl d)Ordered By: Lilia Bowers on 02-06-2023 Eosinophils/100 WBC (Bld) 1.0 % . [facility] Erythrocyte distribution wid th Auto (RBC) [Ratio]Ordered By: Lilia Bowers on 02-06-2023 Erythrocyte distribution width (RBC) [Ratio] 14.0 % 12.0-14.8 [facility] Glucose Glucometer (BldC) [M ass/Vol]Ordered By: Lilia Bowers on 02-06-2023 Glucose [Mass/Vol] 136 mg/dL [facility] Comment on above: Random Glucose Refer ence Range is dependent on time and content of last meal. Glucose of more than 200 mg/dL in a nonstressed, ambulatory subject supports the diagnosis of Diabetes Mellitus. Glucose [Mass/volume] in Ser um or PlasmaOrdered By: Lilia Bowers on 02-06-2023 Glucose [Mass/Vol] 123 mg/dL 70-100 [facility] Comment on above: ADA recommended refe rence rangeRandom Glucose Reference Range is dependent on time and content of last meal. Glucose of more than 200 mg/dL in a nonstressed, ambulatory subject supports the diagnosis of Diabetes Mellitus. Hematocrit Auto (Bld) [Volum e fraction]Ordered By: Lilia Bowers on 02-06-2023 Hematocrit (Bld) [Volume fraction] 40.0 % 38.8-50.0 [facility] Hemoglobin [Mass/volume] in BloodOrdered By: Lilia Bowers on 02-06-2023 Hemoglobin (Bld) [Mass/Vol] 13.3 g/dL 13.0-17.0 [facility] Leukocytes [#/volume] correc desean for nucleated erythrocytes in Blood by Automated counOrdered By: Lilia Bowers on 02-06-2023 WBC corrected for nucl RBC Auto (Bld) [#/Vol] 8.4 10*3/uL 4.1-10.5 [facility] Lymphocytes Auto (Bld) [#/Vo l]Ordered By: Lilia Bowers on 02-06-2023 Lymphocytes (Bld) [#/Vol] 3.4 10*3/uL 1.00-4.8 [facility] Lymphocytes/100 WBC Auto (Bl d)Ordered By: Lilia Bowers on 02-06-2023 Lymphocytes/100 WBC (Bld) 40.8 % . [facility] MCH Auto (RBC) [Entitic mass ]Ordered By: Lilia Bowers on 02-06-2023 MCH (RBC) [Entitic mass] 30.0 pg 27.5-35.2 [facility] MCHC Auto (RBC) [Mass/Vol]Or dered By: Lilia Bowers on 02-06-2023 MCHC (RBC) [Mass/Vol] 33.3 g/dL 32.5-35.6 [facility] MCV Auto (RBC) [Entitic vol] Ordered By: Lilia Bowers on 02-06-2023 MCV (RBC) [Entitic vol] 90.1 fL 83.5-101 [facility] Monocytes Auto (Bld) [#/Vol] Ordered By: Lilia Bowers on 02-06-2023 Monocytes (Bld) [#/Vol] 0.8 10*3/uL 0.0-0.8 [facility] Monocytes/100 WBC Auto (Bld) Ordered By: Lilia Bowers on 02-06-2023 Monocytes/100 WBC (Bld) 9.0 % . [facility] Neutrophils Auto (Bld) [#/Vo l]Ordered By: Lilia Bowers on 02-06-2023 Neutrophils (Bld) [#/Vol] 4.1 10*3/uL 1.8-7.7 [facility] Neutrophils/100 WBC Auto (Bl d)Ordered By: Lilia Bowers on 02-06-2023 Neutrophils/100 WBC (Bld) 48.7 % . [facility] No Panel InformationOrdered By: Lilia Bowers on 02-06-2023 Bedside Glucose Comment Glu2: cleaned meter [facility] Estimated GFR (CKD-EPI) 54.715 mL/Min [facility] Creatinine Clearance (Chem 63.51 [facility] Nucleated erythrocytes [Pres ence] in Blood by Automated countOrdered By: Lilia Bowers on 02-06-2023 Nucleated RBC Auto Ql (Bld) 0.1 /100{WBC} 0-0.5 [facility] Platelet mean volume Auto (B ld) [Entitic vol]Ordered By: Lilia Bowers on 02-06-2023 Platelet mean volume (Bld) [Entitic vol] 8.2 fL 6.6-10.1 [facility] Platelets Auto (Bld) [#/Vol] Ordered By: Lilia Bowers on 02-06-2023 Platelets (Bld) [#/Vol] 207 10*3/uL 150-450 [facility] Potassium [Moles/volume] in Serum or PlasmaOrdered By: Lilia Bowers on 02-06-2023 Potassium [Moles/Vol] 4.0 mmol/L 3.5-5.1 [facility] RBC Auto (Bld) [#/Vol]Ordere d By: Lilia Bowers on 02-06-2023 RBC (Bld) [#/Vol] 4.44 10*6/uL 3.90-5.60 [facility] Serum or plasma anion gap de terminationOrdered By: Lilia Bowers on 02-06-2023 Anion gap [Moles/Vol] TNP [facility] Comment on above: Test not performed Serum or plasma high density lipoprotein (HDL) cholesterol measurementOrdered By: Lilia Bowers on 02-06-2023 Cholesterol in HDL [Mass/Vol] 36 mg/dL 29-71 [facility] Comment on above: HDL CHOL ATP-III CLA SSIFICATION Cardiovascular RiskHDL > or equal to 60 mg/dL LOWHDL < 40 mg/dL HIGH Serum or plasma total choles terol/high density lipoprotein (HDL) cholesterol mass ratOrdered By: Lilia Bowers on 02-06-2023 Cholesterol.total/Chol esterol in HDL [Mass ratio] 4.1 {ratio} <5.0 [facility] Sodium [Moles/volume] in Ser um or PlasmaOrdered By: Lilia Bowers on 02-06-2023 Sodium [Moles/Vol] 138 mmol/L 136-145 [facility] Triglyceride [Mass/volume] i n Serum or PlasmaOrdered By: Lilia Bowers on 02-06-2023 Triglyceride [Mass/Vol] 218 mg/dL 0-149 [facility] Comment on above: TRIG ATP III CLASSIF ICATIONTRIG less than 150 mg/dL NormalTRIG 150-199 mg/dL Borderline highTRIG 200-500 mg/dL High TRIG greater than 500 mg/dL Very highStandard traceable to the Center for Disease Conrtrol and Prevention (CDC) test method. Troponin I.cardiac [Mass/vol ume] in Serum or Plasma by Detection limit <= 0.01 ng/Ordered By: Lilia Bowers on 02-06-2023 Troponin I.cardiac DL <= 0.01 ng/mL [Mass/Vol] 5.6 pg/mL 0.0-20.0 [facility] Urea nitrogen [Mass/volume] in Serum or PlasmaOrdered By: Lilia Bowers on 02-06-2023 Urea nitrogen [Mass/Vol] 15 mg/dL 7-25 [facility] WBC Auto (Bld) [#/Vol]Ordere d By: Lilia Bowers on 02-06-2023 WBC (Bld) [#/Vol] 8.4 10*3/uL 4.1-10.5 [facility] Alanine aminotransferase [En zymatic activity/volume] in Serum or PlasmaOrdered By: Deniz Lacey on 02-05-2023 ALT [Catalytic activity/Vol] 18 U/L 7-52 [facility] Albumin [Mass/volume] in Ser um or Plasma by Bromocresol green (BCG) dye binding methoOrdered By: Deniz Lacey on 02-05-2023 Albumin BCG dye [Mass/Vol] 4.9 g/dL 3.5-5.7 [facility] Alkaline phosphatase [Enzyma tic activity/volume] in Serum or PlasmaOrdered By: Deniz Lacey on 02-05-2023 ALP [Catalytic activity/Vol] 72 U/L 34-104 [facility] Aspartate aminotransferase [ Enzymatic activity/volume] in Serum or PlasmaOrdered By: Deniz Lacey on 02-05-2023 AST [Catalytic activity/Vol] 16 U/L 13-39 [facility] Bilirubin.total [Mass/volume ] in Serum or PlasmaOrdered By: Deniz Lacey on 02-05-2023 Bilirubin [Mass/Vol] 0.9 mg/dL 0.3-1.0 [facility] Creatine kinase [Enzymatic a ctivity/volume] in Serum or PlasmaOrdered By: Deniz Lacey on 02-05-2023 CK [Catalytic activity/Vol] 64 U/L 30-223 [facility] Globulin Calc (S) [Mass/Vol] Ordered By: Deniz Lacey on 02-05-2023 Globulin (S) [Mass/Vol] 3.2 g/dL [facility] Magnesium [Mass/volume] in S ayanna or PlasmaOrdered By: Lilia Bowers on 02-05-2023 Magnesium [Mass/Vol] 1.9 mg/dL 1.9-2.7 [facility] Monocyte distribution width [Entitic volume] in Blood by AutomatedOrdered By: Deniz Lacey on 02-05-2023 Monocyte distribution width Auto (Bld) [Entitic vol] 20.55 % 0.00-20.00 [facility] Comment on above: For adults in ED, MD W > 20.0 may be associated with a higher risk of sepsis during the first 12 hrs of hospital admission Natriuretic peptide B [Mass/ Vol]Ordered By: Deniz Lacey on 02-05-2023 Natriuretic peptide B (Bld) [Mass/Vol] 15.0 pg/mL 5-100 [facility] Protein [Mass/volume] in Ser um or PlasmaOrdered By: Deniz Lacey on 02-05-2023 Protein [Mass/Vol] 8.1 g/dL 6.4-8.9 [facility] Serum or plasma albumin/glob ulin mass ratioOrdered By: Deniz Lacey on 02-05-2023 Albumin/Globulin [Mass ratio] 1.5 {ratio} [facility] RAD - Ultrasound Reporton RAD - Ultrasound Report [id number] Normal [facility] Reminderson 12-14-2022 Reminders - From: Lisandra Garcia MA (EU - Recallperla Heath) To: [employer]la Heath; Sent: 06/28/2022 15:33:44 EDT Show up: 06/28/2022 15:34:00 EDT Subject: Ambulatory Reminder Reminder/Recall From: Bonita Ruiz To: SafetyWebperla Heath; Sent: 06/28/2022 11:22:57 EDT Subject: Recall: Renal US Nov 2022 Due Date/Time: 11/21/2022 11:22:00 EST Caller Name: LEYDI MATHIASLOIsabelle Alcantar; Caller Number: Anthony , M Schedule repeat testing. Test: Renal ultrasound Test due in: 6 months( Needs prior to office appt 12/11/22 ) Tried to call patient, phone went right to a VM that was not sat up yet. tried to contact patient again, no VM sat up From: Bonita Ruiz (ZAC - Esthela Heath) To: Lisandra Garcia MA; Sent: 12/04/2022 15:42:17 EST ! Show up: 12/04/2022 15:42:00 EST Tried calling patient phone went right to VM that has not been sat up yet. letter sent. renal us in patients chart Normal [facility] Provider Letteron 12-07-2022 Provider Letter (Inserted Image. Anya ble to display) December 07, 2022 [address] [place] [address] ROD MATHIAS 1960 Dear Kristi BustamanteMey, We have been trying to reach you with no success. It is important that you return our call regarding your upcoming appointment with Dr. Heath and the need to have a renal us before that visit upon receiving this letter. Also, at the time of your call, please provide us with your current information. Thank you for your prompt attention to this matter. Sincerely, [facility] [address], [address] [place] [address] Normal [facility] XR Spine Lumbar 4+ Views*on 11-02-2022 XR Spine Lumbar 4+ Views* HISTORY: Low back pain with radiculopathy. COMPARISON: None available TECHNIQUE: AP, lateral, bilateral oblique views of the lumbar spine and AP and lateral coned-down views of the lumbosacral junction FINDINGS: Lumbar vertebral body heights are maintained. Mild intervertebral disc height loss at L5-S1. Facet arthropathy of the mid and lower lumbar spine with suspected neuroforaminal stenosis at L4-5 and L5-S1. Mild multilevel degenerative endplate spurring. No spondylolysis or spondylolisthesis. No acute fracture or malalignment. Sacroiliac joints appear normal. IMPRESSION: Degenerative changes of the lumbar spine. Report reported and signed by Ganga Olsen on 11/02/2022 1158 Normal [facility] Glucose mean value [Mass/vol ume] in Blood Estimated from glycated hemoglobinOrdered By: Terell Amor on 10-08-2022 Average glucose Estimated from glycated hemoglobin (Bld) [Mass/Vol] 194 mg/dL [facility] Hemoglobin A1c percentageOrd ered By: Terell Amor on 10-08-2022 HbA1c (Bld) [Mass fraction] 8.4 % 4.3-5.6 [facility] Comment on above: Increased risk for d iabetes: 5.7 - 6.4diabetes: >6.4glycemic control for adults with diabetes: <7.0 Basophils Auto (Bld) [#/Vol] Ordered By: Pam Singh on 10-03-2022 Basophils (Bld) [#/Vol] 0.0 10*3/uL 0.0-0.2 [facility] Basophils/100 WBC Auto (Bld) Ordered By: Pam Singh on 10-03-2022 Basophils/100 WBC (Bld) 0.3 % . [facility] Creatinine and Glomerular fi ltration rate.predicted panel (S/P/Bld)Ordered By: Pam Singh on 10-03-2022 Creatinine [Mass/Vol] 1.48 mg/dL 0.64-1.27 [facility] Eosinophils Auto (Bld) [#/Vo l]Ordered By: Pam Singh on 10-03-2022 Eosinophils (Bld) [#/Vol] 0.2 10*3/uL 0.0-0.45 [facility] Eosinophils/100 WBC Auto (Bl d)Ordered By: Pam Singh on 10-03-2022 Eosinophils/100 WBC (Bld) 1.5 % . [facility] Erythrocyte distribution wid th Auto (RBC) [Ratio]Ordered By: Pam Singh on 10-03-2022 Erythrocyte distribution width (RBC) [Ratio] 14.8 % 12.0-14.8 [facility] Estimated glomerular filtrat ion rate (GFR) non- AmericanOrdered By: Pam Singh on 10-03-2022 GFR/1.73 sq M.predicted among non-blacks MDRD (S/P/Bld) [Vol rate/Area] 48 mL/Min [facility] Glucose Glucometer (BldC) [M ass/Vol]Ordered By: Shaila Bowen on 10-03-2022 Glucose [Mass/Vol] 171 mg/dL [facility] Comment on above: Random Glucose Refer ence Range is dependent on time and content of last meal. Glucose of more than 200 mg/dL in a nonstressed, ambulatory subject supports the diagnosis of Diabetes Mellitus. Hematocrit Auto (Bld) [Volum e fraction]Ordered By: Pam Singh on 10-03-2022 Hematocrit (Bld) [Volume fraction] 42.1 % 38.8-50.0 [facility] Hemoglobin [Mass/volume] in BloodOrdered By: Pam Singh on 10-03-2022 Hemoglobin (Bld) [Mass/Vol] 14.2 g/dL 13.0-17.0 [facility] Leukocytes [#/volume] correc desean for nucleated erythrocytes in Blood by Automated counOrdered By: Pam Singh on 10-03-2022 WBC corrected for nucl RBC Auto (Bld) [#/Vol] 10.1 10*3/uL 4.1-10.5 [facility] Lymphocytes Auto (Bld) [#/Vo l]Ordered By: Pam Singh on 10-03-2022 Lymphocytes (Bld) [#/Vol] 2.9 10*3/uL 1.00-4.8 [facility] Lymphocytes/100 WBC Auto (Bl d)Ordered By: Pam Singh on 10-03-2022 Lymphocytes/100 WBC (Bld) 28.4 % . [facility] MCH Auto (RBC) [Entitic mass ]Ordered By: Pam Singh on 10-03-2022 MCH (RBC) [Entitic mass] 30.3 pg 27.5-35.2 [facility] MCHC Auto (RBC) [Mass/Vol]Or dered By: Pam Singh on 10-03-2022 MCHC (RBC) [Mass/Vol] 33.6 g/dL 32.5-35.6 [facility] MCV Auto (RBC) [Entitic vol] Ordered By: Pam Singh on 10-03-2022 MCV (RBC) [Entitic vol] 90.0 fL 83.5-101 [facility] Monocytes Auto (Bld) [#/Vol] Ordered By: Pam Singh on 10-03-2022 Monocytes (Bld) [#/Vol] 0.9 10*3/uL 0.0-0.8 [facility] Monocytes/100 WBC Auto (Bld) Ordered By: Pam Singh on 10-03-2022 Monocytes/100 WBC (Bld) 8.6 % . [facility] Neutrophils Auto (Bld) [#/Vo l]Ordered By: Pam Singh on 10-03-2022 Neutrophils (Bld) [#/Vol] 6.2 10*3/uL 1.8-7.7 [facility] Neutrophils/100 WBC Auto (Bl d)Ordered By: Pam Singh on 10-03-2022 Neutrophils/100 WBC (Bld) 61.2 % . [facility] No Panel InformationOrdered By: Pam Singh on 10-03-2022 Estimated GFR () 58 mL/Min [facility] Comment on above: GFR estimated refere nce range: According to KDOQI guidelines, <60 ml/min/1.73m2 is sufficient to diagnose a patient with chronic kidney disease. Pharmacy Creatinine Clearance (Chem 61.84 [facility] Nucleated erythrocytes [Pres ence] in Blood by Automated countOrdered By: Pam Singh on 10-03-2022 Nucleated RBC Auto Ql (Bld) 0.2 /100{WBC} 0-0.5 [facility] Platelet mean volume Auto (B ld) [Entitic vol]Ordered By: Pam Singh on 10-03-2022 Platelet mean volume (Bld) [Entitic vol] 8.5 fL 6.6-10.1 [facility] Platelets Auto (Bld) [#/Vol] Ordered By: Pam Singh on 10-03-2022 Platelets (Bld) [#/Vol] 249 10*3/uL 150-450 [facility] RBC Auto (Bld) [#/Vol]Ordere d By: Pam Singh on 10-03-2022 RBC (Bld) [#/Vol] 4.68 10*6/uL 3.90-5.60 [facility] Serum or plasma anion gap de terminationOrdered By: Pam Singh on 10-03-2022 Anion gap [Moles/Vol] 10.8 mmol/L 6.0-15.0 [facility] Serum or plasma calcium lucius urement (mass/volume)Ordered By: Pam Singh on 10-03-2022 Calcium [Mass/Vol] 9.2 mg/dL 8.2-10.2 [facility] Serum or plasma chloride shira surement (moles/volume)Ordered By: Pam Singh on 10-03-2022 Chloride [Moles/Vol] 108 mmol/L 95-114 [facility] Serum or plasma glucose lucius urement (mass/volume)Ordered By: Pam Singh on 10-03-2022 Glucose [Mass/Vol] 152 mg/dL 70-100 [facility] Comment on above: ADA recommended refe rence rangeRandom Glucose Reference Range is dependent on time and content of last meal. Glucose of more than 200 mg/dL in a nonstressed, ambulatory subject supports the diagnosis of Diabetes Mellitus. Serum or plasma potassium me asurement (moles/volume)Ordered By: Pam Singh on 10-03-2022 Potassium [Moles/Vol] 4.0 mmol/L 3.5-5.1 [facility] Serum or plasma sodium measu rement (moles/volume)Ordered By: Pam Singh on 10-03-2022 Sodium [Moles/Vol] 136 mmol/L 136-146 [facility] Serum or plasma total carbon dioxide measurement (moles/volume)Ordered By: Pam Singh on 10-03-2022 CO2 [Moles/Vol] 21.2 mmol/L 22.0-30.0 [facility] Serum or plasma urea nitroge n measurement (mass/volume)Ordered By: Pam Singh on 10-03-2022 Urea nitrogen [Mass/Vol] 23 mg/dL 9-23 [facility] Urine culture routineOrdered By: Spike Estrada on 10-03-2022 Bacteria identified Cx Nom (U) No Growth 2 Days [facility] WBC Auto (Bld) [#/Vol]Ordere d By: Pam Singh on 10-03-2022 WBC (Bld) [#/Vol] 10.1 10*3/uL 4.1-10.5 [facility] Cholesterol [Mass/volume] in Serum or PlasmaOrdered By: Pam Singh on 10-02-2022 Cholesterol [Mass/Vol] 156 mg/dL 140-200 [facility] Comment on above: Chol less than 200 m g/dl low riskChol 201-239 mg/dl borderline riskChol 240 mg/dl and greater high risk Cholesterol in LDL Calc [Mas s/Vol]Ordered By: Pam Singh on 10-02-2022 Cholesterol in LDL [Mass/Vol] 78 mg/dL 0-100 [facility] Comment on above: LDL ATP III CLASSIFI CATIONLDL less than 100 mg/dL OptimalLDL 100-129 mg/dL Near or above optimalLDL 130-159 mg/dL Borderline highLDL 160-189 mg/dL HighLDL greater than 189 mg/dL Very high Cholesterol in VLDL Calc [Ma ss/Vol]Ordered By: Pam Singh on 10-02-2022 Cholesterol in VLDL [Mass/Vol] 37 mg/dL [facility] Glucose Glucometer (BldC) [M ass/Vol]Ordered By: Shaila Bowen on 10-02-2022 Glucose [Mass/Vol] 122 mg/dL [facility] Comment on above: Random Glucose Refer ence Range is dependent on time and content of last meal. Glucose of more than 200 mg/dL in a nonstressed, ambulatory subject supports the diagnosis of Diabetes Mellitus. Serum or plasma high density lipoprotein (HDL) cholesterol measurementOrdered By: Pam Singh on 10-02-2022 Cholesterol in HDL [Mass/Vol] 41 mg/dL 29-71 [facility] Comment on above: HDL CHOL ATP-III CLA SSIFICATION Cardiovascular RiskHDL > or equal to 60 mg/dL LOWHDL < 40 mg/dL HIGH Serum or plasma total choles terol/high density lipoprotein (HDL) cholesterol mass ratOrdered By: Pam Singh on 10-02-2022 Cholesterol.total/Chol esterol in HDL [Mass ratio] 3.8 {ratio} <5.0 [facility] Triglyceride [Mass/volume] i n Serum or PlasmaOrdered By: Pam Singh on 10-02-2022 Triglyceride [Mass/Vol] 187 mg/dL 35-149 [facility] Comment on above: TRIG ATP III CLASSIF ICATIONTRIG less than 150 mg/dL NormalTRIG 150-199 mg/dL Borderline highTRIG 200-500 mg/dL High TRIG greater than 500 mg/dL Very highStandard traceable to the Center for Disease Conrtrol and Prevention (CDC) test method. Troponin I.cardiac [Mass/vol ume] in Serum or Plasma by High sensitivity methodOrdered By: Shaila Bowen on 10-02-2022 Troponin I.cardiac High sensitivity method [Mass/Vol] 6 pg/mL 0-20 [facility] Amphetamine Screen Ql (U)Ord ered By: Spike Estrada on 10-01-2022 Amphetamines Ql (U) Negative Negative [facility] Automated erythrocytes count in urine sediment (number/area)Ordered By: Spike Estrada on 10-01-2022 RBC Auto (Urine sed) [#/Area] None seen [HPF] 0-4 [facility] Automated leukocytes count i n urine sediment (number/area)Ordered By: Spike Estrada on 10-01-2022 WBC Auto (Urine sed) [#/Area] 0-1 [HPF] 0-4 [facility] Barbiturates [Presence] in U rineOrdered By: Spike Estrada on 10-01-2022 Barbiturates Ql (U) Negative Negative [facility] Basophils Auto (Bld) [#/Vol] Ordered By: Spike Estrada on 10-01-2022 Basophils (Bld) [#/Vol] 0.1 10*3/uL 0.0-0.2 [facility] Basophils/100 WBC Auto (Bld) Ordered By: Spike Estrada on 10-01-2022 Basophils/100 WBC (Bld) 0.6 % . [facility] Benzodiazepines [Presence] i n UrineOrdered By: Spike Estrada on 10-01-2022 Benzodiazepines Ql (U) Positive Negative [facility] Bilirubin Test strip Ql (U)O rdered By: Spike Estrada on 10-01-2022 Bilirubin Ql (U) Negative Negative [facility] Body fluid albumin measureme nt (mass/volume)Ordered By: Spike Estrada on 10-01-2022 Albumin (Body fld) [Mass/Vol] 4.3 g/dL 3.2-5.5 [facility] COVID CepheidOrdered By: Lorna Estrada on 10-01-2022 SARS-CoV-2 (COVID-19) Ab IA Ql Negative Negative [facility] Comment on above: This is a duplicate [employer] Xpert Xpress CoV-2/Flu/RSV Plus RNA by RT-PCR result to be used for statistical tracking purpose only. SARS-CoV-2 (COVID-19) RNA ANGÉLICA+probe Ql (Unsp spec) [facility] SARS-CoV-2 (COVID-19) RNA ANGÉLICA+probe Ql (Unsp spec) [facility] Cannabinoids [Presence] in U rine by Screen methodOrdered By: Spike Estrada on 10-01-2022 Cannabinoids Screen Ql (U) Negative Negative [facility] Comment on above: These are unconfirme d results and should not be used for legal purposes. Drug Cut-Off Concentration: AMPH 1000 ng/mL CAMI 200 ng/mL AAMIR 200 ng/mL COCM 300 ng/mL OP 300 ng/mL PCP 25 ng/mL THC 20 ng/mL Color Auto (U)Ordered By: Meir Estrada on 10-01-2022 Color (U) Yellow Yellow [facility] Creatinine and Glomerular fi ltration rate.predicted panel (S/P/Bld)Ordered By: Spike Estrada on 10-01-2022 Creatinine [Mass/Vol] 1.56 mg/dL 0.64-1.27 [facility] Eosinophils Auto (Bld) [#/Vo l]Ordered By: Spike Estrada on 10-01-2022 Eosinophils (Bld) [#/Vol] 0.1 10*3/uL 0.0-0.45 [facility] Eosinophils/100 WBC Auto (Bl d)Ordered By: Spike Estrada on 10-01-2022 Eosinophils/100 WBC (Bld) 0.4 % . [facility] Erythrocyte distribution wid th Auto (RBC) [Ratio]Ordered By: Spike Estrada on 10-01-2022 Erythrocyte distribution width (RBC) [Ratio] 15.2 % 12.0-14.8 [facility] Estimated glomerular filtrat ion rate (GFR) non- AmericanOrdered By: Spike Estrada on 10-01-2022 GFR/1.73 sq M.predicted among non-blacks MDRD (S/P/Bld) [Vol rate/Area] 45 mL/Min [facility] Folate [Mass/volume] in Seru m or PlasmaOrdered By: Shaila Bowen on 10-01-2022 Folate [Mass/Vol] ng/mL >5.9 [facility] Comment on above: Folate reference ran ge: >5.9 ng/mlThe WHO technical consultation on folate and vitamin [id number] has determined that folate concentrations lessthan 4 ng/ml are considered deficient. Globulin Calc (S) [Mass/Vol] Ordered By: Spike Estrada on 10-01-2022 Globulin (S) [Mass/Vol] 4.4 g/dL [facility] Hematocrit Auto (Bld) [Volum e fraction]Ordered By: Spike Estrada on 10-01-2022 Hematocrit (Bld) [Volume fraction] 44.6 % 38.8-50.0 [facility] Hemoglobin [Mass/volume] in BloodOrdered By: Spike Estrada on 10-01-2022 Hemoglobin (Bld) [Mass/Vol] 14.6 g/dL 13.0-17.0 [facility] Ketones Auto test strip (U) [Mass/Vol]Ordered By: Spike Estrada on 10-01-2022 Ketones (U) [Mass/Vol] Negative Negative [facility] Laboratory - Chemistry and C hemistry - challengeOrdered By: Shaila Bowen on 10-01-2022 Cobalamin (Vitamin B12) [Mass/Vol] 358 pg/mL 180-914 [facility] - Drug toxicology Ordered By: Spike Estrada on 10-01-2022 Opiates Ql (U) Positive Negative [facility] - UrinalysisOrder ed By: Spike Estrada on 10-01-2022 Hyaline casts LM Ql (Urine sed) 0-8 [LPF] 0-8 [facility] Leukocytes [#/volume] correc desean for nucleated erythrocytes in Blood by Automated counOrdered By: Spike Estrada on 10-01-2022 WBC corrected for nucl RBC Auto (Bld) [#/Vol] 11.3 10*3/uL 4.1-10.5 [facility] Lymphocytes Auto (Bld) [#/Vo l]Ordered By: Spike Estrada on 10-01-2022 Lymphocytes (Bld) [#/Vol] 2.2 10*3/uL 1.00-4.8 [facility] Lymphocytes/100 WBC Auto (Bl d)Ordered By: Spike Estrada on 10-01-2022 Lymphocytes/100 WBC (Bld) 19.6 % . [facility] MCH Auto (RBC) [Entitic mass ]Ordered By: Spike Estrada on 10-01-2022 MCH (RBC) [Entitic mass] 29.7 pg 27.5-35.2 [facility] MCHC Auto (RBC) [Mass/Vol]Or dered By: Spike Estrada on 10-01-2022 MCHC (RBC) [Mass/Vol] 32.7 g/dL 32.5-35.6 [facility] MCV Auto (RBC) [Entitic vol] Ordered By: Spike Estrada on 10-01-2022 MCV (RBC) [Entitic vol] 90.8 fL 83.5-101 [facility] Monocyte distribution width [Entitic volume] in Blood by AutomatedOrdered By: Spike Estrada on 10-01-2022 Monocyte distribution width Auto (Bld) [Entitic vol] 20.76 % 0.00-20.00 [facility] Comment on above: For adults in ED, MD W > 20.0 may be associated with a higher risk of sepsis during the first 12 hrs of hospital admission Monocytes Auto (Bld) [#/Vol] Ordered By: Spike Estrada on 10-01-2022 Monocytes (Bld) [#/Vol] 0.6 10*3/uL 0.0-0.8 [facility] Monocytes/100 WBC Auto (Bld) Ordered By: Spike Estrada on 10-01-2022 Monocytes/100 WBC (Bld) 5.4 % . [facility] Neutrophils Auto (Bld) [#/Vo l]Ordered By: Spike Estrada on 10-01-2022 Neutrophils (Bld) [#/Vol] 8.3 10*3/uL 1.8-7.7 [facility] Neutrophils/100 WBC Auto (Bl d)Ordered By: Spike Estrada on 10-01-2022 Neutrophils/100 WBC (Bld) 74.0 % . [facility] Nitrite Test strip Ql (U)Ord ered By: Spike Estarda on 10-01-2022 Nitrite Ql (U) Negative Negative [facility] No Panel InformationOrdered By: Spike Estrada on 10-01-2022 Estimated GFR () 54 mL/Min [facility] Comment on above: GFR estimated refere nce range: According to KDOQI guidelines, <60 ml/min/1.73m2 is sufficient to diagnose a patient with chronic kidney disease. Pharmacy Creatinine Clearance (Chem N/A [facility] Bedside Glucose Comment Glu2: cleaned meter [facility] Nucleated erythrocytes [Pres ence] in Blood by Automated countOrdered By: Spike Estrada on 10-01-2022 Nucleated RBC Auto Ql (Bld) 0.1 /100{WBC} 0-0.5 [facility] Phencyclidine Screen Ql (U)O rdered By: Spike Estrada on 10-01-2022 Phencyclidine Ql (U) Negative Negative [facility] Platelet mean volume Auto (B ld) [Entitic vol]Ordered By: Spike Estrada on 10-01-2022 Platelet mean volume (Bld) [Entitic vol] 8.2 fL 6.6-10.1 [facility] Platelets Auto (Bld) [#/Vol] Ordered By: Spike Estrada on 10-01-2022 Platelets (Bld) [#/Vol] 285 10*3/uL 150-450 [facility] Protein Auto test strip (U) [Mass/Vol]Ordered By: Spike Estrada on 10-01-2022 Protein (U) [Mass/Vol] Trace mg/dL Negative [facility] Protein [Mass/volume] in Ser um or PlasmaOrdered By: Spike Estrada on 10-01-2022 Protein [Mass/Vol] 8.7 g/dL 6.1-7.9 [facility] RBC Auto (Bld) [#/Vol]Ordere d By: Spike Estrada on 10-01-2022 RBC (Bld) [#/Vol] 4.91 10*6/uL 3.90-5.60 [facility] Serum or plasma alanine padilla otransferase measurement without P-5'-P (enzymatic activiOrdered By: Spike Estrada on 10-01-2022 ALT No additional P-5'-P [Catalytic activity/Vol] 27 U/L 1060 [facility] Serum or plasma albumin/glob ulin mass ratioOrdered By: Spike Estrada on 10-01-2022 Albumin/Globulin [Mass ratio] 1.0 {ratio} [facility] Serum or plasma alkaline stefani sphatase measurement (enzymatic activity/volume)Ordered By: Spike Estrada on 10-01-2022 ALP [Catalytic activity/Vol] 87 U/L 32-92 [facility] Serum or plasma anion gap de terminationOrdered By: Spike Estrada on 10-01-2022 Anion gap [Moles/Vol] 15.0 mmol/L 6.0-15.0 [facility] Serum or plasma aspartate am inotransferase measurement (enzymatic activity/volume)Ordered By: Spike Estrada on 10-01-2022 AST [Catalytic activity/Vol] 21 U/L 10-42 [facility] Serum or plasma calcium lucius urement (mass/volume)Ordered By: Spike Estrada on 10-01-2022 Calcium [Mass/Vol] 10.0 mg/dL 8.2-10.2 [facility] Serum or plasma chloride shira surement (moles/volume)Ordered By: Spike Estrada on 10-01-2022 Chloride [Moles/Vol] 104 mmol/L 95-114 [facility] Serum or plasma ethanol lucius urement (mass/volume)Ordered By: Spike Estrada on 10-01-2022 Ethanol [Mass/Vol] mg/dL [facility] Ethanol [Mass/Vol] TNP [facility] Comment on above: Test not performed Serum or plasma glucose lucius urement (mass/volume)Ordered By: Spike Estrada on 10-01-2022 Glucose [Mass/Vol] 152 mg/dL 70-100 [facility] Comment on above: ADA recommended refe rence rangeRandom Glucose Reference Range is dependent on time and content of last meal. Glucose of more than 200 mg/dL in a nonstressed, ambulatory subject supports the diagnosis of Diabetes Mellitus. Serum or plasma potassium me asurement (moles/volume)Ordered By: Spike Estrada on 10-01-2022 Potassium [Moles/Vol] 4.4 mmol/L 3.5-5.1 [facility] Serum or plasma sodium measu rement (moles/volume)Ordered By: Spike Estrada on 10-01-2022 Sodium [Moles/Vol] 136 mmol/L 136-146 [facility] Serum or plasma total biliru bin measurement (mass/volume)Ordered By: Spike Estrada on 10-01-2022 Bilirubin [Mass/Vol] 0.8 mg/dL 0.3-1.2 [facility] Serum or plasma total carbon dioxide measurement (moles/volume)Ordered By: Spike Estrada on 10-01-2022 CO2 [Moles/Vol] 21.4 mmol/L 22.0-30.0 [facility] Serum or plasma urea nitroge n measurement (mass/volume)Ordered By: Spike Estrada on 10-01-2022 Urea nitrogen [Mass/Vol] 22 mg/dL 9-23 [facility] Specific gravity Auto test s trip (U) [Rel density]Ordered By: Spike Estrada on 10-01-2022 Specific gravity (U) [Rel density] 1.026 1.001-1.030 [facility] Squamous epithelial cells de tection in urine sediment by light microscopyOrdered By: Spike Estrada on 10-01-2022 Epithelial cells.squamous LM Ql (Urine sed) None seen [HPF] 0-2 [facility] TSH DL <= 0.005 mIU/L QnOrde red By: Shaila Bowen on 10-01-2022 TSH Qn 0.91 m[IU]/L 0.45-5.33 [facility] Troponin I.cardiac [Mass/vol ume] in Serum or Plasma by High sensitivity methodOrdered By: Pam Singh on 10-01-2022 Troponin I.cardiac High sensitivity method [Mass/Vol] 5 pg/mL 0-20 [facility] Urine bacteria detection by automated methodOrdered By: Spike Estrada on 10-01-2022 Bacteria Auto Ql (U) None seen None Seen [facility] Urine clarity by refractomet ry automatedOrdered By: Spike Estrada on 10-01-2022 Clarity Refractometry automated (U) Clear Clear [facility] Urine cocaine detectionOrder ed By: Spike Estrada on 10-01-2022 Cocaine Ql (U) Negative Negative [facility] Urine culture routineOrdered By: Spike Estrada on 10-01-2022 Bacteria identified Cx Nom (U) No Growth 2 Days [facility] Urine glucose measurement by automated test strip (mass/volume)Ordered By: Spike Estrada on 10-01-2022 Glucose Auto test strip (U) [Mass/Vol] >=1000 mg/dL Normal [facility] Urine hemoglobin detection b y automated test stripOrdered By: Spike Estrada on 10-01-2022 Hemoglobin Auto test strip Ql (U) Negative Negative [facility] Urine leukocyte esterase det ection by automated test stripOrdered By: Spike Estrada on 10-01-2022 Leukocyte esterase Auto test strip Ql (U) Negative Negative [facility] Urobilinogen Auto test strip (U) [Mass/Vol]Ordered By: Spike Estrada on 10-01-2022 Urobilinogen (U) [Mass/Vol] Normal mg/dL Normal [facility] WBC Auto (Bld) [#/Vol]Ordere d By: Spike Estrada on 10-01-2022 WBC (Bld) [#/Vol] 11.3 10*3/uL 4.1-10.5 [facility] pH Auto test strip (U)Ordere d By: Spike Estrada on 10-01-2022 pH (U) 5.5 [pH] 5.0-9.0 [facility] Glucose Glucometer (BldC) [M ass/Vol]Ordered By: Zheng Iraheta on 07-26-2022 Glucose [Mass/Vol] 135 mg/dL [facility] Comment on above: Random Glucose Refer ence Range is dependent on time and content of last meal. Glucose of more than 200 mg/dL in a nonstressed, ambulatory subject supports the diagnosis of Diabetes Mellitus. No Panel InformationOrdered By: Zheng Iraheta on 07-26-2022 Bedside Glucose Comment Glu2: cleaned meter [facility] COVID-19 Positive/NegativeOr dered By: Zheng Iraheta on 07-24-2022 SARS-CoV-2 (COVID-19) N gene ANGÉLICA+probe Ql (Resp) Negative Negative [facility] Comment on above: Testing for SARS-CoV -2 by RT-PCRThis test was developed and its performance characteristics determined by [facility] [employer] and validated at the [facility]. This test has not been FDA cleared or approved. This test has been authorized by FDA under an Emergency Use Authorization (EUA). This test has been validated in accordance with the FDA's Guidance Document (Policy for Diagnostics Testing in Laboratories Certified to Perform High Complexity Testing under CLIA prior to Emergency Use Authorization for Coronavirus Disease-2019 during the Public Health Emergency) issued on January 21, 2020. This test is only authorized for the duration of time the declaration that circumstances exist justifying the authorization of the emergency use of in vitro diagnostic tests for detection of SARS-CoV-2 virus and/or diagnosis of COVID-19 infection under section 564(b)(1) of the Act, 21 U.S.C. 360bbb-3(b)(1), unless the authorization is terminated or revoked sooner. Basophils Auto (Bld) [#/Vol] Ordered By: Zheng Iraheta on 07-12-2022 Basophils (Bld) [#/Vol] 0.1 10*3/uL 0.0-0.2 [facility] Basophils/100 WBC Auto (Bld) Ordered By: Zheng Iraheta on 07-12-2022 Basophils/100 WBC (Bld) 0.5 % . [facility] Blood hemoglobin measurement (mass/volume)Ordered By: Zheng Iraheta on 07-12-2022 Hemoglobin (Bld) [Mass/Vol] 14.3 g/dL 13.0-17.0 [facility] Blood leukocytes automated c ount (number/volume)Ordered By: Zheng Iraheta on 07-12-2022 WBC (Bld) [#/Vol] 11.4 10*3/uL 4.5-11.0 [facility] Creatinine and Glomerular fi ltration rate.predicted panel (S/P/Bld)Ordered By: Zheng Iraheta on 07-12-2022 Creatinine [Mass/Vol] 1.56 mg/dL 0.64-1.27 [facility] Eosinophils Auto (Bld) [#/Vo l]Ordered By: Zheng Iraheta on 07-12-2022 Eosinophils (Bld) [#/Vol] 0.1 10*3/uL 0.0-0.45 [facility] Eosinophils/100 WBC Auto (Bl d)Ordered By: Zheng Iraheta on 07-12-2022 Eosinophils/100 WBC (Bld) 1.1 % . [facility] Erythrocyte distribution wid th Auto (RBC) [Ratio]Ordered By: Zhneg Iraheta on 07-12-2022 Erythrocyte distribution width (RBC) [Ratio] 14.5 % 12.0-14.8 [facility] Estimated glomerular filtrat ion rate (GFR) non- AmericanOrdered By: Zheng Iraheta on 07-12-2022 GFR/1.73 sq M.predicted among non-blacks MDRD (S/P/Bld) [Vol rate/Area] 45 mL/Min [facility] Hematocrit Auto (Bld) [Volum e fraction]Ordered By: Zheng Iraheta on 07-12-2022 Hematocrit (Bld) [Volume fraction] 43.4 % 38.8-50.0 [facility] Laboratory - Hematology and Cell countsOrdered By: Zheng Iraheta on 07-12-2022 Nucleated RBC/100 WBC (Bld) [Ratio] 0.1 % 0-0.5 [facility] Lymphocytes Auto (Bld) [#/Vo l]Ordered By: Zheng Iraheta on 07-12-2022 Lymphocytes (Bld) [#/Vol] 2.6 10*3/uL 1.00-4.8 [facility] Lymphocytes/100 WBC Auto (Bl d)Ordered By: Zheng Iraheta on 07-12-2022 Lymphocytes/100 WBC (Bld) 22.9 % . [facility] MCH Auto (RBC) [Entitic mass ]Ordered By: Zheng Iraheta on 07-12-2022 MCH (RBC) [Entitic mass] 30.1 pg 27.5-35.2 [facility] MCHC Auto (RBC) [Mass/Vol]Or dered By: Zheng Iraheta on 07-12-2022 MCHC (RBC) [Mass/Vol] 33.0 g/dL 32.5-35.6 [facility] MCV Auto (RBC) [Entitic vol] Ordered By: Zheng Iraheta on 07-12-2022 MCV (RBC) [Entitic vol] 91.1 fL 83.5-101 [facility] Monocytes Auto (Bld) [#/Vol] Ordered By: Zheng Iraheta on 07-12-2022 Monocytes (Bld) [#/Vol] 0.9 10*3/uL 0.0-0.8 [facility] Monocytes/100 WBC Auto (Bld) Ordered By: Zheng Iraheta on 07-12-2022 Monocytes/100 WBC (Bld) 8.0 % . [facility] Neutrophils Auto (Bld) [#/Vo l]Ordered By: Zheng Iraheta on 07-12-2022 Neutrophils (Bld) [#/Vol] 7.7 10*3/uL 1.8-7.7 [facility] Neutrophils/100 WBC Auto (Bl d)Ordered By: Zheng Iraheta on 07-12-2022 Neutrophils/100 WBC (Bld) 67.5 % . [facility] No Panel InformationOrdered By: Zheng Iraheta on 07-12-2022 Estimated GFR () 55 mL/Min [facility] Comment on above: GFR estimated refere nce range: According to KDOQI guidelines, <60 ml/min/1.73m2 is sufficient to diagnose a patient with chronic kidney disease. Pharmacy Creatinine Clearance (Chem N/A [facility] Platelet mean volume Auto (B ld) [Entitic vol]Ordered By: Zheng Iraheta on 07-12-2022 Platelet mean volume (Bld) [Entitic vol] 8.4 fL 6.6-10.1 [facility] Platelets Auto (Bld) [#/Vol] Ordered By: Zheng Iraheta on 07-12-2022 Platelets (Bld) [#/Vol] 314 10*3/uL 150-450 [facility] RBC Auto (Bld) [#/Vol]Ordere d By: Zheng Iraheta on 07-12-2022 RBC (Bld) [#/Vol] 4.76 10*6/uL 3.90-5.60 [facility] Serum or plasma anion gap de terminationOrdered By: Zheng Iraheta on 07-12-2022 Anion gap [Moles/Vol] 15.8 mmol/L 6.0-15.0 [facility] Serum or plasma calcium lucius urement (mass/volume)Ordered By: Zheng Iraheta on 07-12-2022 Calcium [Mass/Vol] 10.0 mg/dL 8.2-10.2 [facility] Serum or plasma chloride shira surement (moles/volume)Ordered By: Zheng Iraheta on 07-12-2022 Chloride [Moles/Vol] 106 mmol/L 95-114 [facility] Serum or plasma glucose lucius urement (mass/volume)Ordered By: Zheng Iraheta on 07-12-2022 Glucose [Mass/Vol] 120 mg/dL 70-100 [facility] Comment on above: ADA recommended refe rence range Random Glucose Reference Range is dependent on time and content of last meal. Glucose of more than 200 mg/dL in a nonstressed, ambulatory subject supports the diagnosis of Diabetes Mellitus. ADA recommended refe rence rangeRandom Glucose Reference Range is dependent on time and content of last meal. Glucose of more than 200 mg/dL in a nonstressed, ambulatory subject supports the diagnosis of Diabetes Mellitus. Serum or plasma potassium me asurement (moles/volume)Ordered By: Zheng Iraheta on 07-12-2022 Potassium [Moles/Vol] 5.5 mmol/L 3.5-5.1 [facility] Serum or plasma sodium measu rement (moles/volume)Ordered By: Zheng Iraheta on 07-12-2022 Sodium [Moles/Vol] 139 mmol/L 136-146 [facility] Serum or plasma total carbon dioxide measurement (moles/volume)Ordered By: Zheng Iraheta on 07-12-2022 CO2 [Moles/Vol] 22.7 mmol/L 22.0-30.0 [facility] Serum or plasma urea nitroge n measurement (mass/volume)Ordered By: Zheng Iraheta on 07-12-2022 Urea nitrogen [Mass/Vol] 21 mg/dL 07-13 [facility] Reminderson 06-28-2022 Reminders - From: Lisandra Garcia MA (EU - Recalls Kumar) To: EU - Recalls Kumar; Sent: 06/28/2022 15:32:50 EDT Show up: 06/28/2022 15:33:00 EDT Subject: Ambulatory Reminder Reminder/Recall From: Bonita Ruiz To: EU - Recallperla Heath; Sent: 06/28/2022 11:22:57 EDT Subject: Recall: Renal US Nov 2022 Due Date/Time: 11/21/2022 11:22:00 EST Caller Name: ROD MATHIAS; Caller Number: Anthony , Arley Schedule repeat testing. Test: Renal ultrasound Test due in: 6 months( Needs prior to office appt 12/11/22 ) Normal [facility] Operative Reporton Operative Report [id number]#[id number]:127 Normal [facility] RAD - MISCon 06-18-2022 RAD - MISC [id number]#[id number]:127 Normal [facility] RAD - MISCon 06-17-2022 RAD - MISC [id number]#[id number]:127 Normal [facility] Glucose Glucometer (BldC) [M ass/Vol]Ordered By: Mark Anthony Heath on 06-15-2022 Glucose [Mass/Vol] 121 mg/dL [facility] Comment on above: Random Glucose Refer ence Range is dependent on time and content of last meal. Glucose of more than 200 mg/dL in a nonstressed, ambulatory subject supports the diagnosis of Diabetes Mellitus. No Panel InformationOrdered By: Mark Anthony Heath on 06-15-2022 Bedside Glucose Comment Glu2: cleaned meter [facility] Lab Reportson 06-14-2022 Lab Reports [id number]#[id number]:127 Normal [facility] COVID-19 Positive/NegativeOr dered By: Mark Anthony Heath on 06-13-2022 SARS-CoV-2 (COVID-19) N gene ANGÉLICA+probe Ql (Resp) Negative Negative [facility] Comment on above: Testing for SARS-CoV -2 by RT-PCR This test was developed and its performance characteristics determined by [employer] ([employer] and validated at the [facility]. This test has not been FDA cleared or approved. This test has been authorized by FDA under an Emergency Use Authorization (EUA). This test has been validated in accordance with the FDA's Guidance Document (Policy for Diagnostics Testing in Laboratories Certified to Perform High Complexity Testing under CLIA prior to Emergency Use Authorization for Coronavirus Disease-2019 during the Public Health Emergency) issued on January 21, 2020. This test is only authorized for the duration of time the declaration that circumstances exist justifying the authorization of the emergency use of in vitro diagnostic tests for detection of SARS-CoV-2 virus and/or diagnosis of COVID-19 infection under section 564(b)(1) of the Act, 21 U.S.C. 360bbb-3(b)(1), unless the authorization is terminated or revoked sooner. Testing for SARS-CoV -2 by RT-PCRThis test was developed and its performance characteristics determined by [employer] ([employer] and validated at the [facility]. This test has not been FDA cleared or approved. This test has been authorized by FDA under an Emergency Use Authorization (EUA). This test has been validated in accordance with the FDA's Guidance Document (Policy for Diagnostics Testing in Laboratories Certified to Perform High Complexity Testing under CLIA prior to Emergency Use Authorization for Coronavirus Disease-2019 during the Public Health Emergency) issued on January 21, 2020. This test is only authorized for the duration of time the declaration that circumstances exist justifying the authorization of the emergency use of in vitro diagnostic tests for detection of SARS-CoV-2 virus and/or diagnosis of COVID-19 infection under section 564(b)(1) of the Act, 21 U.S.C. 360bbb-3(b)(1), unless the authorization is terminated or revoked sooner. Glucose Glucometer (BldC) [M ass/Vol]Ordered By: Mark Anthony Heath on 05-24-2022 Glucose [Mass/Vol] 128 mg/dL [facility] Comment on above: Random Glucose Refer ence Range is dependent on time and content of last meal. Glucose of more than 200 mg/dL in a nonstressed, ambulatory subject supports the diagnosis of Diabetes Mellitus. COVID-19 Positive/NegativeOr dered By: Mark Anthony Heath on 05-22-2022 SARS-CoV-2 (COVID-19) N gene ANGÉLICA+probe Ql (Resp) Negative Negative [facility] Comment on above: Testing for SARS-CoV -2 by RT-PCR This test was developed and its performance characteristics determined by [employer] ([employer] and validated at the [facility]. This test has not been FDA cleared or approved. This test has been authorized by FDA under an Emergency Use Authorization (EUA). This test has been validated in accordance with the FDA's Guidance Document (Policy for Diagnostics Testing in Laboratories Certified to Perform High Complexity Testing under CLIA prior to Emergency Use Authorization for Coronavirus Disease-2019 during the Public Health Emergency) issued on January 21, 2020. This test is only authorized for the duration of time the declaration that circumstances exist justifying the authorization of the emergency use of in vitro diagnostic tests for detection of SARS-CoV-2 virus and/or diagnosis of COVID-19 infection under section 564(b)(1) of the Act, 21 U.S.C. 360bbb-3(b)(1), unless the authorization is terminated or revoked sooner. Testing for SARS-CoV -2 by RT-PCRThis test was developed and its performance characteristics determined by [employer] ([employer] and validated at the [facility]. This test has not been FDA cleared or approved. This test has been authorized by FDA under an Emergency Use Authorization (EUA). This test has been validated in accordance with the FDA's Guidance Document (Policy for Diagnostics Testing in Laboratories Certified to Perform High Complexity Testing under CLIA prior to Emergency Use Authorization for Coronavirus Disease-2019 during the Public Health Emergency) issued on January 21, 2020. This test is only authorized for the duration of time the declaration that circumstances exist justifying the authorization of the emergency use of in vitro diagnostic tests for detection of SARS-CoV-2 virus and/or diagnosis of COVID-19 infection under section 564(b)(1) of the Act, 21 U.S.C. 360bbb-3(b)(1), unless the authorization is terminated or revoked sooner. Albumin [Mass/volume] in Ser um or PlasmaOrdered By: César Arreaga on 05-19-2022 Albumin [Mass/Vol] 4.1 g/dL 3.2-5.5 [facility] Automated epithelial cells c ount in urine sediment (number/area)Ordered By: César Arreaga on 05-19-2022 Epithelial cells Auto (Urine sed) [#/Area] 1-2 [HPF] 0-2 [facility] Automated erythrocytes count in urine sediment (number/area)Ordered By: César Arreaga on 05-19-2022 RBC Auto (Urine sed) [#/Area] 3-4 [HPF] 0-4 [facility] Automated leukocytes count i n urine sediment (number/area)Ordered By: César Arreaga on 05-19-2022 WBC Auto (Urine sed) [#/Area] None seen [HPF] 0-4 [facility] Basophils Auto (Bld) [#/Vol] Ordered By: César Arreaga on 05-19-2022 Basophils (Bld) [#/Vol] 0.1 10*3/uL 0.0-0.2 [facility] Basophils/100 WBC Auto (Bld) Ordered By: César Arreaga on 05-19-2022 Basophils/100 WBC (Bld) 0.5 % . [facility] Bilirubin Auto test strip Ql (U)Ordered By: César Arreaga on 05-19-2022 Bilirubin Ql (U) Negative Negative [facility] Blood hemoglobin measurement (mass/volume)Ordered By: César Arreaga on 05-19-2022 Hemoglobin (Bld) [Mass/Vol] 14.2 g/dL 13.0-17.0 [facility] Blood leukocytes automated c ount (number/volume)Ordered By: César Arreaga on 05-19-2022 WBC (Bld) [#/Vol] 10.4 10*3/uL 4.5-11.0 [facility] Creatinine and Glomerular fi ltration rate.predicted panel (S/P/Bld)Ordered By: César Arreaga on 05-19-2022 Creatinine [Mass/Vol] 1.62 mg/dL 0.64-1.27 [facility] Eosinophils Auto (Bld) [#/Vo l]Ordered By: César Arreaga on 05-19-2022 Eosinophils (Bld) [#/Vol] 0.1 10*3/uL 0.0-0.45 [facility] Eosinophils/100 WBC Auto (Bl d)Ordered By: César Arreaga on 05-19-2022 Eosinophils/100 WBC (Bld) 1.3 % . [facility] Erythrocyte distribution wid th Auto (RBC) [Ratio]Ordered By: César Arreaga on 05-19-2022 Erythrocyte distribution width (RBC) [Ratio] 15.2 % 12.0-14.8 [facility] Estimated glomerular filtrat ion rate (GFR) non- AmericanOrdered By: César Arreaga on 05-19-2022 GFR/1.73 sq M.predicted among non-blacks MDRD (S/P/Bld) [Vol rate/Area] 43 mL/Min [facility] Globulin Calc (S) [Mass/Vol] Ordered By: César Arreaga on 05-19-2022 Globulin (S) [Mass/Vol] 3.2 g/dL [facility] Hematocrit Auto (Bld) [Volum e fraction]Ordered By: César Arreaga on 05-19-2022 Hematocrit (Bld) [Volume fraction] 42.6 % 38.8-50.0 [facility] Ketones Auto test strip (U) [Mass/Vol]Ordered By: César Arreaga on 05-19-2022 Ketones (U) [Mass/Vol] Trace Negative [facility] Laboratory - Hematology and Cell countsOrdered By: César Arreaga on 05-19-2022 Nucleated RBC/100 WBC (Bld) [Ratio] 0.0 % 0-0.5 [facility] Lymphocytes Auto (Bld) [#/Vo l]Ordered By: César Arreaga on 05-19-2022 Lymphocytes (Bld) [#/Vol] 4.3 10*3/uL 1.00-4.8 [facility] Lymphocytes/100 WBC Auto (Bl d)Ordered By: César Arreaga on 05-19-2022 Lymphocytes/100 WBC (Bld) 40.8 % . [facility] MCH Auto (RBC) [Entitic mass ]Ordered By: César Arreaga on 05-19-2022 MCH (RBC) [Entitic mass] 30.4 pg 27.5-35.2 [facility] MCHC Auto (RBC) [Mass/Vol]Or dered By: César Arreaga on 05-19-2022 MCHC (RBC) [Mass/Vol] 33.3 g/dL 32.5-35.6 [facility] MCV Auto (RBC) [Entitic vol] Ordered By: César Arreaga on 05-19-2022 MCV (RBC) [Entitic vol] 91.3 fL 83.5-101 [facility] Monocytes Auto (Bld) [#/Vol] Ordered By: César Arreaga on 05-19-2022 Monocytes (Bld) [#/Vol] 0.8 10*3/uL 0.0-0.8 [facility] Monocytes/100 WBC Auto (Bld) Ordered By: César Arreaga on 05-19-2022 Monocytes/100 WBC (Bld) 7.8 % . [facility] Neutrophils Auto (Bld) [#/Vo l]Ordered By: César Arreaga on 05-19-2022 Neutrophils (Bld) [#/Vol] 5.2 10*3/uL 1.8-7.7 [facility] Neutrophils/100 WBC Auto (Bl d)Ordered By: César Arreaga on 05-19-2022 Neutrophils/100 WBC (Bld) 49.6 % . [facility] No Panel InformationOrdered By: César Arreaga on 05-19-2022 Estimated GFR () 52 mL/Min [facility] Comment on above: GFR estimated refere nce range: According to KDOQI guidelines, <60 ml/min/1.73m2 is sufficient to diagnose a patient with chronic kidney disease. Pharmacy Creatinine Clearance (Chem 55.27 [facility] Platelet mean volume Auto (B ld) [Entitic vol]Ordered By: César Arreaga on 05-19-2022 Platelet mean volume (Bld) [Entitic vol] 8.3 fL 6.6-10.1 [facility] Platelets Auto (Bld) [#/Vol] Ordered By: César Arreaga on 05-19-2022 Platelets (Bld) [#/Vol] 287 10*3/uL 150-450 [facility] Protein Auto test strip (U) [Mass/Vol]Ordered By: César Arreaga on 05-19-2022 Protein (U) [Mass/Vol] Trace mg/dL Negative [facility] Protein [Mass/volume] in Ser um or PlasmaOrdered By: César Arreaga on 05-19-2022 Protein [Mass/Vol] 7.3 g/dL 6.1-7.9 [facility] RBC Auto (Bld) [#/Vol]Ordere d By: César Arreaga on 05-19-2022 RBC (Bld) [#/Vol] 4.66 10*6/uL 3.90-5.60 [facility] Serum or plasma alanine padilla otransferase measurement without P-5'-P (enzymatic activiOrdered By: César Arreaga on 05-19-2022 ALT No additional P-5'-P [Catalytic activity/Vol] 23 U/L 10-60 [facility] Serum or plasma albumin/glob ulin mass ratioOrdered By: César Arreaga on 05-19-2022 Albumin/Globulin [Mass ratio] 1.3 {ratio} [facility] Serum or plasma alkaline stefani sphatase measurement (enzymatic activity/volume)Ordered By: César Arreaga on 05-19-2022 ALP [Catalytic activity/Vol] 80 U/L 32-92 [facility] Serum or plasma aspartate am inotransferase measurement (enzymatic activity/volume)Ordered By: César Arreaga on 05-19-2022 AST [Catalytic activity/Vol] 22 U/L 10-42 [facility] Serum or plasma calcium lucius urement (mass/volume)Ordered By: César Arreaga on 05-19-2022 Calcium [Mass/Vol] 9.6 mg/dL 8.2-10.2 [facility] Serum or plasma chloride shira surement (moles/volume)Ordered By: César Arreaga on 05-19-2022 Chloride [Moles/Vol] 102 mmol/L 95-114 [facility] Serum or plasma glucose lucius urement (mass/volume)Ordered By: César Arreaga on 05-19-2022 Glucose [Mass/Vol] 150 mg/dL 70-100 [facility] Comment on above: ADA recommended refe rence range Random Glucose Reference Range is dependent on time and content of last meal. Glucose of more than 200 mg/dL in a nonstressed, ambulatory subject supports the diagnosis of Diabetes Mellitus. ADA recommended refe rence rangeRandom Glucose Reference Range is dependent on time and content of last meal. Glucose of more than 200 mg/dL in a nonstressed, ambulatory subject supports the diagnosis of Diabetes Mellitus. Serum or plasma potassium me asurement (moles/volume)Ordered By: César Arreaga on 05-19-2022 Potassium [Moles/Vol] 3.7 mmol/L 3.5-5.1 [facility] Serum or plasma sodium measu rement (moles/volume)Ordered By: César Arreaga on 05-19-2022 Sodium [Moles/Vol] 139 mmol/L 136-146 [facility] Serum or plasma total biliru bin measurement (mass/volume)Ordered By: César Arreaga on 05-19-2022 Bilirubin [Mass/Vol] 0.8 mg/dL 0.3-1.2 [facility] Serum or plasma total carbon dioxide measurement (moles/volume)Ordered By: César Arreaga on 05-19-2022 CO2 [Moles/Vol] 22.8 mmol/L 22.0-30.0 [facility] Serum or plasma urea nitroge n measurement (mass/volume)Ordered By: César Arreaga on 05-19-2022 Urea nitrogen [Mass/Vol] 17 mg/dL 9 [facility] Urine appearanceOrdered By: César Arreaga on 05-19-2022 Appearance (U) Clear Clear [facility] Urine bacteria detection by automated methodOrdered By: César Arreaga on 05-19-2022 Bacteria Auto Ql (U) Rare None Seen [facility] Urine colorOrdered By: César Arreaga on 05-19-2022 Color (U) Yellow Yellow [facility] Urine glucose measurement by automated test strip (mass/volume)Ordered By: César Arreaga on 05-19-2022 Glucose Auto test strip (U) [Mass/Vol] >=1000 mg/dL Normal [facility] Urine hemoglobin detection b y automated test stripOrdered By: César Arreaga on 05-19-2022 Hemoglobin Auto test strip Ql (U) 2+ Negative [facility] Urine leukocyte esterase det ection by automated test stripOrdered By: César Arreaga on 05-19-2022 Leukocyte esterase Auto test strip Ql (U) Negative Negative [facility] Urine nitrite detection by a utomated test stripOrdered By: César Arreaga on 05-19-2022 Nitrite Auto test strip Ql (U) Negative Negative [facility] Urobilinogen Auto test strip (U) [Mass/Vol]Ordered By: César Arreaga on 05-19-2022 Urobilinogen (U) [Mass/Vol] Normal mg/dL Normal [facility] pH Auto test strip (U)Ordere d By: César Arreaga on 05-19-2022 pH (U) 1.025 [pH] 1.001-1.030 [facility] pH (U) 5.5 [pH] 5.0-9.0 [facility] Automated erythrocytes count in urine sediment (number/area)Ordered By: Terell Amor on 05-07-2022 RBC Auto (Urine sed) [#/Area] 0-1 [HPF] 0-4 [facility] Automated leukocytes count i n urine sediment (number/area)Ordered By: Terell Amor on 05-07-2022 WBC Auto (Urine sed) [#/Area] 0-1 [HPF] 0-4 [facility] Basophils Auto (Bld) [#/Vol] Ordered By: Terell Amor on 05-07-2022 Basophils (Bld) [#/Vol] 0.0 10*3/uL 0.0-0.2 [facility] Basophils/100 WBC Auto (Bld) Ordered By: Terell Amor on 05-07-2022 Basophils/100 WBC (Bld) 0.3 % . [facility] Bilirubin Test strip Ql (U)O rdered By: Terell Amor on 05-07-2022 Bilirubin Ql (U) Negative Negative [facility] Blood hemoglobin measurement (mass/volume)Ordered By: Terell Amor on 05-07-2022 Hemoglobin (Bld) [Mass/Vol] 14.3 g/dL 13.0-17.0 [facility] Blood leukocytes automated c ount (number/volume)Ordered By: Terell Amor on 05-07-2022 WBC (Bld) [#/Vol] 12.1 10*3/uL 4.5-11.0 [facility] Color Auto (U)Ordered By: Valeriano Amor on 05-07-2022 Color (U) Yellow Yellow [facility] Creatinine and Glomerular fi ltration rate.predicted panel (S/P/Bld)Ordered By: Terell Amor on 05-07-2022 Creatinine [Mass/Vol] 1.50 mg/dL 0.64-1.27 [facility] Eosinophils Auto (Bld) [#/Vo l]Ordered By: Terell Amor on 05-07-2022 Eosinophils (Bld) [#/Vol] 0.1 10*3/uL 0.0-0.45 [facility] Eosinophils/100 WBC Auto (Bl d)Ordered By: Terell Amor on 05-07-2022 Eosinophils/100 WBC (Bld) 0.5 % . [facility] Erythrocyte distribution wid th Auto (RBC) [Ratio]Ordered By: Terell Amor on 05-07-2022 Erythrocyte distribution width (RBC) [Ratio] 15.1 % 12.0-14.8 [facility] Estimated glomerular filtrat ion rate (GFR) non- AmericanOrdered By: Terell Amor on 05-07-2022 GFR/1.73 sq M.predicted among non-blacks MDRD (S/P/Bld) [Vol rate/Area] 47 mL/Min [facility] Glucose mean value [Mass/vol ume] in Blood Estimated from glycated hemoglobinOrdered By: Terell Amor on 05-07-2022 Average glucose Estimated from glycated hemoglobin (Bld) [Mass/Vol] 154 mg/dL [facility] Hematocrit Auto (Bld) [Volum e fraction]Ordered By: Terell Amor on 05-07-2022 Hematocrit (Bld) [Volume fraction] 44.1 % 38.8-50.0 [facility] Hemoglobin A1c percentageOrd ered By: Terell Amor on 05-07-2022 HbA1c (Bld) [Mass fraction] 7.0 % 4.3-5.6 [facility] Comment on above: Increased risk for d iabetes: 5.7 - 6.4 diabetes: >6.4 glycemic control for adults with diabetes: <7.0 Increased risk for d iabetes: 5.7 - 6.4diabetes: >6.4glycemic control for adults with diabetes: <7.0 Ketones Auto test strip (U) [Mass/Vol]Ordered By: Terell Amor on 05-07-2022 Ketones (U) [Mass/Vol] 1+ Negative [facility] Laboratory - Hematology and Cell countsOrdered By: Terell Amor on 05-07-2022 Nucleated RBC/100 WBC (Bld) [Ratio] 0.1 % 0-0.5 [facility] Laboratory - UrinalysisOrder ed By: Terell Amor on 05-07-2022 Hyaline casts LM Ql (Urine sed) 0-8 [LPF] 0-8 [facility] Lymphocytes Auto (Bld) [#/Vo l]Ordered By: Terell Amor on 05-07-2022 Lymphocytes (Bld) [#/Vol] 2.5 10*3/uL 1.00-4.8 [facility] Lymphocytes/100 WBC Auto (Bl d)Ordered By: Terell Amor on 05-07-2022 Lymphocytes/100 WBC (Bld) 20.6 % . [facility] MCH Auto (RBC) [Entitic mass ]Ordered By: Terell Amor on 05-07-2022 MCH (RBC) [Entitic mass] 29.8 pg 27.5-35.2 [facility] MCHC Auto (RBC) [Mass/Vol]Or dered By: Terell Amor on 05-07-2022 MCHC (RBC) [Mass/Vol] 32.5 g/dL 32.5-35.6 [facility] MCV Auto (RBC) [Entitic vol] Ordered By: Terell Amor on 05-07-2022 MCV (RBC) [Entitic vol] 91.6 fL 83.5-101 [facility] Monocytes Auto (Bld) [#/Vol] Ordered By: Terell Amor on 05-07-2022 Monocytes (Bld) [#/Vol] 0.9 10*3/uL 0.0-0.8 [facility] Monocytes/100 WBC Auto (Bld) Ordered By: Terell Amor on 05-07-2022 Monocytes/100 WBC (Bld) 7.4 % . [facility] Neutrophils Auto (Bld) [#/Vo l]Ordered By: Terell Amor on 05-07-2022 Neutrophils (Bld) [#/Vol] 8.6 10*3/uL 1.8-7.7 [facility] Neutrophils/100 WBC Auto (Bl d)Ordered By: Terell Amor on 05-07-2022 Neutrophils/100 WBC (Bld) 71.2 % . [facility] Nitrite Test strip Ql (U)Ord ered By: Terell Amor on 05-07-2022 Nitrite Ql (U) Negative Negative [facility] No Panel InformationOrdered By: Terell Amor on 05-07-2022 Estimated GFR () 57 mL/Min [facility] Comment on above: GFR estimated refere nce range: According to KDOQI guidelines, <60 ml/min/1.73m2 is sufficient to diagnose a patient with chronic kidney disease. Pharmacy Creatinine Clearance (Chem N/A [facility] Platelet mean volume Auto (B ld) [Entitic vol]Ordered By: Terell Amor on 05-07-2022 Platelet mean volume (Bld) [Entitic vol] 8.9 fL 6.6-10.1 [facility] Platelets Auto (Bld) [#/Vol] Ordered By: Terell Amor on 05-07-2022 Platelets (Bld) [#/Vol] 233 10*3/uL 150-450 [facility] Protein Auto test strip (U) [Mass/Vol]Ordered By: Terell Amor on 05-07-2022 Protein (U) [Mass/Vol] 30 mg/dL Negative [facility] RBC Auto (Bld) [#/Vol]Ordere d By: Terell Amor on 05-07-2022 RBC (Bld) [#/Vol] 4.81 10*6/uL 3.90-5.60 [facility] Serum or plasma calcium lucius urement (mass/volume)Ordered By: Terell Amor on 05-07-2022 Calcium [Mass/Vol] 9.7 mg/dL 8.2-10.2 [facility] Serum or plasma chloride shira surement (moles/volume)Ordered By: Terell Amor on 05-07-2022 Chloride [Moles/Vol] 104 mmol/L 95-114 [facility] Serum or plasma glucose lucius urement (mass/volume)Ordered By: Terell Amor on 05-07-2022 Glucose [Mass/Vol] 99 mg/dL 70-100 [facility] Comment on above: ADA recommended refe rence range Random Glucose Reference Range is dependent on time and content of last meal. Glucose of more than 200 mg/dL in a nonstressed, ambulatory subject supports the diagnosis of Diabetes Mellitus. ADA recommended refe rence rangeRandom Glucose Reference Range is dependent on time and content of last meal. Glucose of more than 200 mg/dL in a nonstressed, ambulatory subject supports the diagnosis of Diabetes Mellitus. Serum or plasma potassium me asurement (moles/volume)Ordered By: Terell Amor on 05-07-2022 Potassium [Moles/Vol] 4.5 mmol/L 3.5-5.1 [facility] Serum or plasma sodium measu rement (moles/volume)Ordered By: Terell Amor on 05-07-2022 Sodium [Moles/Vol] 134 mmol/L 136-146 [facility] Serum or plasma total carbon dioxide measurement (moles/volume)Ordered By: Terell Amor on 05-07-2022 CO2 [Moles/Vol] 17.6 mmol/L 22.0-30.0 [facility] Serum or plasma urea nitroge n measurement (mass/volume)Ordered By: Terell Amor on 05-07-2022 Urea nitrogen [Mass/Vol] 19 mg/dL 9-23 [facility] Specific gravity Auto test s trip (U) [Rel density]Ordered By: Terell Amor on 05-07-2022 Specific gravity (U) [Rel density] 1.027 1.001-1.030 [facility] Squamous epithelial cells de tection in urine sediment by light microscopyOrdered By: Terell Amor on 05-07-2022 Epithelial cells.squamous LM Ql (Urine sed) None seen [HPF] 0-2 [facility] Urine bacteria detection by automated methodOrdered By: Terell Amor on 05-07-2022 Bacteria Auto Ql (U) None seen None Seen [facility] Urine clarity by refractomet ry automatedOrdered By: Terell Amor on 05-07-2022 Clarity Refractometry automated (U) Clear Clear [facility] Urine glucose measurement by automated test strip (mass/volume)Ordered By: Terell Amor on 05-07-2022 Glucose Auto test strip (U) [Mass/Vol] >=1000 mg/dL Normal [facility] Urine hemoglobin detection b y automated test stripOrdered By: Terell Amor on 05-07-2022 Hemoglobin Auto test strip Ql (U) Negative Negative [facility] Urine leukocyte esterase det ection by automated test stripOrdered By: Terell Amor on 05-07-2022 Leukocyte esterase Auto test strip Ql (U) Negative Negative [facility] Urobilinogen Auto test strip (U) [Mass/Vol]Ordered By: Terell Amor on 05-07-2022 Urobilinogen (U) [Mass/Vol] Normal mg/dL Normal [facility] pH Auto test strip (U)Ordere d By: Terell Amor on 05-07-2022 pH (U) 5.0 [pH] 5.0-9.0 [facility] MRI HIP LT WO CONon 08-30-20 MRI HIP LT WO CON EXAM: MRI LEFT HIP W ITH CONTRAST/MRI ARTHROGRAM LEFT HIP. COMPARISON: Pelvis and hip x-rays from 07/31/2021. HISTORY: Left hip impingement syndrome and left hip pain. TECHNIQUE: Multiplanar and multisequence imaging of the pelvis and left hip was performed after administration of intra-articular dilute gadolinium into the left hip joint. FINDINGS: The left hip joint is distended with dilute gadolinium. There is some contrast within the soft tissues anteriorly related to arthrogram technique. There is no sacral fracture. The pelvic bones are intact including the pubic rami. There is no MRI evidence of avascular necrosis involving the femoral heads. No femoral stress fracture is identified. Mild to moderate degenerative change/osteoarthritis involves the articular cartilage loss, joint space narrowing and spurring. There is a focal tear of the anterosuperior labrum on the left with a probable tear of the superior labrum on the right seen on the large rdwrp-so-ablu STIR images. No paralabral cyst is evident. The hamstring tendon origin from the ischial tuberosity appears intact bilaterally. The iliopsoas tendons insert normally onto the lesser trochanter bilaterally. The gluteal tendon attachment onto the greater trochanter is intact bilaterally. No acute abnormality is identified involving visualized intrapelvic structures. There is moderate to severe degenerative disc disease at L5-S1 with the lumbar spine incompletely evaluated on this study. IMPRESSION: 1. No acute bony abnormality involving the pelvis or hips. 2. Mild to moderate degenerative change/osteoarthritis involves the hips bilaterally. 3. There is a focal tear of the anterosuperior labrum on the left and a probable small tear of the superior labrum on the right. No paralabral cyst is evident. 4. There is moderate to severe degenerative disc disease at L5-S1 with the lumbar spine incompletely evaluated on this study. Electronically authenticated by: DENIZ FAN Date: 2021-08-30 14:51 Normal [facility] XR ARTHRO HIP LT EXPon 08-30 XR ARTHRO HIP LT EXP EXAMINATION: XR ART HRO HIP LT EXP HISTORY: Disorder of hip joint COMPARISON: No relevant comparison available. TECHNIQUE: An arthrogram was performed under fluoroscopic guidance using non-ionic contrast material in the usual sterile manner after obtaining informed consent. Standard level fluoroscopic mode of operation utilized. FINDINGS: JOINT: Left hip NEEDLE: 25 gauge, 3.5 spinal needle. MEDICATION: Approximately 10 mL injected into joint space consisting of a mixture of 5 cc normal saline, 5 cc Omnipaque-300, 5 cc 1% Xylocaine and 0.2 cc Dotarem. TECHNIQUE: Anterior approach under fluoroscopic guidance. CLINICAL: Decreased pain following the injection (8/10 preinjection; 4/10 post injection). COMPLICATIONS: None. BONES: No fracture, significant osseous degenerative changes, or visible bone lesion. BURSA: No visible extension of contrast into the subacromial-subdeltoid bursa at this time. OTHER: Negative. IMPRESSION: 1. Technically successful arthrogram without complication. 2. Please see separate MRI arthrogram report. Electronically authenticated by: ALFREDO LEWIS Date: 2021-08-30 08:29 Normal [facility] Vital Signs Date Time Vital Sign Value Performing Clinician Facility 07-24-2023 11:45-0400 Diastolic blood pressure 86 mm[Hg] MD Ganga Hernandez Work Phone: [facility] 07-24-2023 11:45-0400 Heart rate 65 /min MD Ganga Hernandez Work Phone: [facility] 07-24-2023 11:45-0400 Respiratory rate 20 /min MD Ganga Hernandez Work Phone: [facility] 07-24-2023 11:45-0400 SaO2% (BldA) [Mass fraction] 97 % MD Ganga Hernandez Work Phone: [facility] 07-24-2023 11:45-0400 Systolic blood pressure 147 mm[Hg] MD Ganga Hernandez Work Phone: [facility] 07-24-2023 08:17-0400 Body height 177.8 cm MD Ganga Hernandez Work Phone: [facility] 07-24-2023 08:17-0400 Body temperature 97.2 [degF] MD Ganga Hernandez Work Phone: [facility] 07-24-2023 08:17-0400 Body weight 106.8 kg MD Ganga Hernandez Work Phone: [facility] 07-13-2023 15:13-0400 Body temperature 97.8 [degF] MD Ganga Hernandez Work Phone: [facility] 07-13-2023 15:13-0400 Diastolic blood pressure 83 mm[Hg] MD Ganga Hernandez Work Phone: [facility] 07-13-2023 15:13-0400 Heart rate 77 /min MD Ganga Hernandez Work Phone: [facility] 07-13-2023 15:13-0400 Respiratory rate 16 /min MD Ganga Hernandez Work Phone: [facility] 07-13-2023 15:13-0400 SaO2% (BldA) [Mass fraction] 95 % MD Ganga Hernandez Work Phone: [facility] 07-13-2023 15:13-0400 Systolic blood pressure 132 mm[Hg] MD Ganga Hernandez Work Phone: [facility] 07-12-2023 11:15-0400 Body height 180.34 cm MD Ganga Hernandez Work Phone: [facility] 07-12-2023 05:57-0400 Body weight 106.5 kg MD Ganga Hernandez Work Phone: [facility] 06-07-2023 13:17-0400 Body height 180.34 cm MD Ganga Hernandez Work Phone: [facility] 06-07-2023 13:17-0400 Body temperature 98.5 [degF] MD Ganga Hernadnez Work Phone: [facility] 06-07-2023 13:17-0400 Body weight 106 kg MD Ganga Hernandez Work Phone: [facility] 06-07-2023 13:17-0400 Diastolic blood pressure 81 mm[Hg] MD Ganga Hernandez Work Phone: [facility] 06-07-2023 13:17-0400 Heart rate 72 /min MD Ganga Hernandez Work Phone: [facility] 06-07-2023 13:17-0400 SaO2% (BldA) [Mass fraction] 99 % MD Ganga Hernandez Work Phone: [facility] 06-07-2023 13:17-0400 Systolic blood pressure 132 mm[Hg] MD Ganga Hernandez Work Phone: [facility] 04-11-2023 11:24-0400 Body height 179.07 cm Ganga Thomas Hernandez Work Phone: [facility] [address] DO Work Phone: 04-11-2023 11:24-0400 Body mass index (BMI) [Ratio] 31.4 kg/m2 Ganga Guzman David Work Phone: [facility] [address] DO Work Phone: 04-11-2023 11:24-0400 Body surface area Derived from formula 2.19 m2 Ganga Thomas Hernandez Work Phone: [facility] [address] DO Work Phone: 04-11-2023 11:24-0400 Body weight 100.7 kg Ganga Thomas Hernandez Work Phone: [facility] [address] DO Work Phone: 04-11-2023 11:24-0400 Diastolic blood pressure 72 mm[Hg] Ganga Hernandez Work Phone: [facility] [facility] DO Work Phone: 04-11-2023 11:24-0400 Heart rate 66 /min Ganga Hernandez Work Phone: [facility] [address] DO Work Phone: 04-11-2023 11:24-0400 Systolic blood pressure 122 mm[Hg] Ganga Hernandez Work Phone: [facility] [facility] DO Work Phone: 02-06-2023 16:00-0400 Diastolic blood pressure 77 mm[Hg] MD Ganga Hernandez Work Phone: [facility] 02-06-2023 16:00-0400 Heart rate 71 /min MD Ganga Hernandez Work Phone: [facility] 02-06-2023 16:00-0400 Respiratory rate 18 /min MD Ganga Hernandez Work Phone: [facility] 02-06-2023 16:00-0400 SaO2% (BldA) [Mass fraction] 94 % MD Ganga Hernandez Work Phone: [facility] 02-06-2023 16:00-0400 Systolic blood pressure 131 mm[Hg] MD Ganga Hernandez Work Phone: [facility] 02-06-2023 11:44-0400 Body temperature 98.1 [degF] MD Ganga Hernandez Work Phone: [facility] 02-06-2023 03:28-0400 Body weight 105.6 kg MD Ganga Hernandez Work Phone: [facility] 02-05-2023 21:02-0400 Body height 177.8 cm MD Ganga Hernandez Work Phone: [facility] 10-11-2022 16:00-0500 Body height 180.34 cm Brandon Castañeda Other [facility] [employer] Other 10-11-2022 16:00-0500 Body mass index (BMI) [Ratio] 33.05 kg/m2 Brandon Castañeda Other [facility] [employer] Other 10-11-2022 16:00-0500 Body weight 107.5 kg Brandon Castañeda Other [facility] [employer] Other 10-11-2022 16:00-0500 Diastolic blood pressure 70 mm[Hg] Brandon Castañeda Other [employer] Other 10-11-2022 16:00-0500 SaO2% (BldA) [Mass fraction] 96 % Brandon Castañeda Other [facility] [employer] Other 10-11-2022 16:00-0500 Systolic blood pressure 132 mm[Hg] Brandon Castañeda Other [facility] [employer] Other 10-08-2022 10:33-0500 Body height 180.34 cm MD Ganga Hernandez Work Phone: [facility] 10-08-2022 10:33-0500 Body weight 108.3 kg MD Ganga Hernandez Work Phone: [facility] 10-08-2022 10:33-0500 Diastolic blood pressure 75 mm[Hg] MD Ganga Hernandez Work Phone: [facility] 10-08-2022 10:33-0500 Heart rate 68 /min MD Ganga Hernandez Work Phone: [facility] 10-08-2022 10:33-0500 Respiratory rate 18 /min MD Gagna Hernandez Work Phone: [facility] 10-08-2022 10:33-0500 SaO2% (BldA) [Mass fraction] 96 % MD Ganga Hernandez Work Phone: [facility] 10-08-2022 10:33-0500 Systolic blood pressure 123 mm[Hg] MD Ganga Hernandez Work Phone: [facility] 10-03-2022 19:57-0500 Body temperature 97.8 [degF] MD Ganga Hernandez Work Phone: [facility] 10-03-2022 19:57-0500 Diastolic blood pressure 90 mm[Hg] MD Ganga Hernandez Work Phone: [facility] 10-03-2022 19:57-0500 Heart rate 76 /min MD Ganga Hernandez Work Phone: [facility] 10-03-2022 19:57-0500 Respiratory rate 16 /min MD Ganga Hernandez Work Phone: [facility] 10-03-2022 19:57-0500 SaO2% (BldA) [Mass fraction] 98 % MD Ganga Hernandez Work Phone: [facility] 10-03-2022 19:57-0500 Systolic blood pressure 159 mm[Hg] MD Ganga Hernandez Work Phone: [facility] 10-03-2022 05:44-0500 Body weight 103.8 kg MD Ganga Hernandez Work Phone: [facility] 10-02-2022 15:59-0500 Body height 180.34 cm MD Ganga Hernandez Work Phone: [facility] 10-02-2022 01:52-0500 Body height 180.34 cm MD Ganga Hernandez Work Phone: [facility] 10-02-2022 01:52-0500 Body temperature 97.6 [degF] MD Ganga Hernandez Work Phone: [facility] 10-02-2022 01:52-0500 Body weight 105.9 kg MD Ganga Hernandez Work Phone: [facility] 10-02-2022 01:52-0500 Diastolic blood pressure 89 mm[Hg] MD Ganga Hernandez Work Phone: [facility] 10-02-2022 01:52-0500 Heart rate 77 /min MD Ganga Hernandez Work Phone: [facility] 10-02-2022 01:52-0500 Respiratory rate 16 /min MD Ganga Hernandez Work Phone: [facility] 10-02-2022 01:52-0500 SaO2% (BldA) [Mass fraction] 98 % MD Ganga Hernandez Work Phone: [facility] 10-02-2022 01:52-0500 Systolic blood pressure 169 mm[Hg] MD Ganga Hernandez Work Phone: [facility] 08-29-2022 14:00-0500 Body height 180.34 cm Brandon Castañeda Other [facility] [employer] Other 08-29-2022 14:00-0500 Body mass index (BMI) [Ratio] 32.35 kg/m2 Brandondaniel Castañeda Other [employer] Other 08-29-2022 14:00-0500 Body weight 105.24 kg Brandon Castañeda Other [employer] Other 08-29-2022 14:00-0500 Diastolic blood pressure 70 mm[Hg] Brandon Castañeda Other [employer] Other 08-29-2022 14:00-0500 SaO2% (BldA) [Mass fraction] 98 % Brandon Castañeda Other [employer] Other 08-29-2022 14:00-0500 Systolic blood pressure 110 mm[Hg] Brandon Castañeda Other [employer] Other 07-26-2022 12:25-0400 Diastolic blood pressure 85 mm[Hg] Services [employer] Work Phone: [facility] 07-26-2022 12:25-0400 Heart rate 79 /min Services [facility] [employer] Work Phone: [facility] 07-26-2022 12:25-0400 Respiratory rate 14 /min [facility] Work Phone: [facility] 07-26-2022 12:25-0400 SaO2% (BldA) [Mass fraction] 95 % [facility] Work Phone: [facility] 07-26-2022 12:25-0400 Systolic blood pressure 139 mm[Hg] [facility] Work Phone: [facility] 07-26-2022 10:54-0400 Body temperature 97.9 [degF] [facility] Work Phone: [facility] 07-26-2022 10:54-0400 Inhaled oxygen flow rate 10 L/min [facility] Work Phone: [facility] 07-26-2022 08:34-0400 Body height 180.34 cm [facility] Work Phone: [facility] 07-26-2022 08:34-0400 Body mass index (BMI) [Ratio] 30.7 kg/m2 [facility] Work Phone: [facility] 07-26-2022 08:34-0400 Body weight 99.79 kg [facility] Work Phone: [facility] 06-15-2022 15:15-0400 Diastolic blood pressure 75 mm[Hg] [facility] Work Phone: [facility] 06-15-2022 15:15-0400 Heart rate 82 /min [facility] Work Phone: [facility] 06-15-2022 15:15-0400 Respiratory rate 20 /min [facility] Work Phone: [facility] 06-15-2022 15:15-0400 SaO2% (BldA) [Mass fraction] 95 % [facility] Work Phone: [facility] 06-15-2022 15:15-0400 Systolic blood pressure 115 mm[Hg] [facility] Work Phone: [facility] 06-15-2022 14:49-0400 Body height 177.8 cm [facility] Work Phone: [facility] 06-15-2022 14:49-0400 Body mass index (BMI) [Ratio] 31.5 kg/m2 [facility] Work Phone: [facility] 06-15-2022 14:49-0400 Body weight 99.79 kg [facility] Work Phone: [facility] 06-15-2022 14:45-0400 Inhaled oxygen flow rate 8 L/min Services [facility] Work Phone: [facility] 06-15-2022 11:59-0400 Body temperature 98.1 [degF] [facility] [employer] Work Phone: [facility] 06-08-2022 10:20-0400 Body height 180.34 cm Mart Henry Other [employer] Other 06-08-2022 10:20-0400 Body mass index (BMI) [Ratio] 33.89 kg/m2 Mart Henry Other [employer] Other 06-08-2022 10:20-0400 Body weight 110.22 kg Mart Henry Other [employer] Other 05-24-2022 13:38-0400 Diastolic blood pressure 80 mm[Hg] Services [facility] [facility] Work Phone: [facility] 05-24-2022 13:38-0400 Heart rate 70 /min Services [facility] Work Phone: [facility] 05-24-2022 13:38-0400 Respiratory rate 16 /min Services [employer] [facility] Work Phone: [facility] 05-24-2022 13:38-0400 SaO2% (BldA) [Mass fraction] 95 % [facility] Work Phone: [facility] 05-24-2022 13:38-0400 Systolic blood pressure 130 mm[Hg] Services [employer] [facility] Work Phone: [facility] 05-24-2022 12:27-0400 Body height 182.88 cm [facility] [employer] Work Phone: [facility] 05-24-2022 12:27-0400 Body mass index (BMI) [Ratio] 30.2 kg/m2 [facility] Work Phone: [facility] 05-24-2022 12:27-0400 Body weight 101 kg [facility] Work Phone: [facility] 05-24-2022 10:23-0400 Body temperature 98.3 [degF] [facility] [employer] Work Phone: [facility] 05-22-2022 11:10-0400 Blood Pressure Location [facility] 05-22-2022 11:10-0400 Diastolic blood pressure 81 mm[Hg] Mark Anthony [facility] [facility] 05-22-2022 11:10-0400 Heart rate 71 /min Mark Anthony [facility] [facility] 05-22-2022 11:10-0400 Systolic blood pressure 141 mm[Hg] Mark Anthony [employer] [facility] 05-19-2022 09:14-0400 Diastolic blood pressure 70 mm[Hg] [facility] Work Phone: [facility] 05-19-2022 09:14-0400 Heart rate 66 /min [facility] [employer] Work Phone: [facility] 05-19-2022 09:14-0400 Respiratory rate 18 /min [facility] [employer] Work Phone: [facility] 05-19-2022 09:14-0400 SaO2% (BldA) [Mass fraction] 95 % [facility] [employer] Work Phone: [facility] 05-19-2022 09:14-0400 Systolic blood pressure 136 mm[Hg] [facility] [employer] Work Phone: [facility] 05-19-2022 07:28-0400 Body height 177.8 cm [facility] [employer] Work Phone: [facility] 05-19-2022 07:28-0400 Body weight 99.79 kg [facility] [employer] Work Phone: [facility] 05-19-2022 07:27-0400 Body temperature 97.5 [degF] [facility] [employer] Work Phone: [facility] 04-19-2022 11:40-0400 Body height 180.34 cm Mart Henry Other [employer] Other 04-19-2022 11:40-0400 Body mass index (BMI) [Ratio] 33.94 kg/m2 Mart Henry Other [employer] Other 04-19-2022 11:40-0400 Body weight 110.41 kg Mart Henry Other [employer] Other 09-26-2021 15:40-0500 Body height 180.34 cm Mart Henry Other [facility] Other 09-26-2021 15:40-0500 Body mass index (BMI) [Ratio] 33.47 kg/m2 Mart Henry Other [employer] Other 09-26-2021 15:40-0500 Body weight 108.86 kg Mart Henry Other [facility] Other 09-26-2021 15:40-0500 Diastolic blood pressure 68 mm[Hg] Mart Henry Other [employer] Other 09-26-2021 15:40-0500 Systolic blood pressure 129 mm[Hg] Mart Henry Other [employer] Other Encounters Encounter Date Encounter Type Care Provider Facility Start: 03-04-2024 End: 03-04-2024 ambulatory GANGA HERNANDEZ Not Available Start: 02-20-2024 End: 02-20-2024 ambulatory GANGA HERNANDEZ Not Available Start: 11-11-2023 End: 11-11-2023 ambulatory GANGA HERNANDEZ Not Available Start: 07-24-2023 End: 07-24-2023 Emergency department patient visit Jose Merino Facility:[facility] Start: 07-24-2023 End: 07-24-2023 Emergency department patient visit MD Ganga Hernandez Work Phone: [facility] Work Phone: Start: 07-11-[address] Ganga Hernandez Facility:[id number] Start: 07-11-2023 End: 07-13-2023 ambulatory Shaila Bowen Facility:[facility] Start: 07-11-2023 End: 07-13-2023 Evaluation and management of inpatient MD Ganga Hernandez Work Phone: [facility] [place] [address] Surgical Work Phone: Start: 07-11-2023 End: 07-13-2023 observation encounter MD Ganga Hernandez Work Phone: [facility] Work Phone: Start: 06-21-2023 End: 06-21-2023 ambulatory Mark Anthony HEATH Facility:[facility] Start: 06-21-2023 End: 06-21-2023 Departed Referred MD Ganga Hernandez Work Phone: [facility] [place] Start: 06-07-2023 End: 06-07-2023 ambulatory Mark Anthony Heath Facility:[facility] Start: 06-07-2023 End: 06-07-2023 Patient encounter procedure MD Ganga Hernandez Work Phone: [id number] Work Phone: Start: 04-11-2023 Office outpatient vi sit 15 minutes Ganga Hernandez Work Phone: [facility] [address] DO Work Phone: Start: 04-11-[address] Demarco Jefferson Facility: Start: 04-04-2023 End: 04-04-2023 ambulatory Mark Anthony Heath Facility:[facility] Start: 04-04-2023 End: 04-04-2023 ambulatory MD Ganga Hernandez Work Phone: [facility] Work Phone: Start: 04-04-2023 End: 04-04-2023 Patient encounter procedure MD Ganga Hernandez Work Phone: [facility]-CT [address] Work Phone: Start: 03-12-2023 End: 03-13-2023 ambulatory Mark Anthony Mateusz HEATH Facility: [place] Start: 02-15-2023 Chart Update Ganga Hernandez Work Phone: [facility]-[place] 250 DO Work Phone: Start: 02-14-2023 ambulatory DEMARCO JEFFERSON Facilit y:[id number] Start: 02-13-2023 ambulatory DEMARCO JEFFERSON Facilit y:[id number] Start: 02-08-2023 Telephone encounter Demarco magallon DO Work Phone: [facility]-[place] 250 DO Work Phone: Start: 02-06-[address] Ganga Hernandez Facility:[id number] Start: 02-05-2023 End: 02-06-2023 Evaluation and management of inpatient MD Ganga Hernandez Work Phone: [facility]-3 [place] [facility] Work Phone: Start: 12-12-2022 End: 12-12-2022 ambulatory MD Ganga Hernandez Work Phone: [facility] Work Phone: Start: 12-12-2022 End: 12-12-2022 Patient encounter procedure MD Ganga Hernandez Work Phone: [facility]-Ultrasound [place] Work Phone: Start: 10-25-2022 End: 10-25-2022 ambulatory MD Ganga Hernandez Work Phone: [facility] Work Phone: Start: 10-25-2022 End: 10-25-2022 Departed Referred MD Ganga Hernandez Work Phone: [facility]-Surgery Center [place] Start: 10-11-2022 End: 10-11-2022 ambulatory Brandon Castañeda Other [employer] Other Start: 10-11-2022 Office outpatient vi sit 25 minutes Brandon Castañeda [facility] Start: 10-08-2022 End: 10-08-2022 ambulatory MD Ganga Hernandez Work Phone: [facility] Work Phone: Start: 10-08-2022 End: 10-08-2022 Patient encounter procedure MD Ganga Hernandez Work Phone: [facility] Start: 10-01-[address] Ganga Hernandez Facilit y:[id number] Start: 10-01-2022 End: 10-03-2022 Evaluation and management of inpatient MD Ganga Hernandez Work Phone: [facility]-3 [place] [facility] Start: 08-30-2022 End: 08-30-2022 ambulatory Brandon Castañeda Other [employer] Other Start: 08-30-2022 Telephone encounter Brandon Castañeda [facility] Start: 08-29-2022 End: 08-29-2022 ambulatory Brandon Castañeda Other [employer] Other Start: 08-29-2022 Office consultation new/estab patient 60 min Brandon Castañeda [facility] Start: 07-26-2022 End: 07-26-2022 Admission to same day surgery center Services [place] Work Phone: [facility]Surgery [facility] [place] Start: 07-26-2022 End: 07-26-2022 ambulatory Services [place] Work Phone: [facility] [employer] Work Phone: Start: 07-24-2022 End: 07-24-2022 ambulatory Services [place] Work Phone: [facility] [employer] Work Phone: Start: 07-24-2022 End: 07-24-2022 Patient encounter procedure Services [place] Work Phone: [facility]-Surgical Testing Start: 07-12-2022 End: 07-12-2022 Patient encounter procedure Services [place] Work Phone: [facility]-Surgical Testing Start: 06-15-2022 End: 06-16-2022 ambulatory Mark Anthony HEATH Facility::[id number] Start: 06-15-2022 End: 06-15-2022 Admission to same day surgery center Services [place] Work Phone: [facility]-Surgery [facility] Start: 06-13-2022 End: 06-13-2022 Patient encounter procedure Services Family [place] Work Phone: [facility]-Surgical Testing Start: 06-08-2022 End: 06-08-2022 ambulatory Mart Henry Other [employer] [employer] Other Start: 06-08-2022 Office outpatient vi sit 15 minutes Mart Henry [facility] Neurosurgery Start: 06-04-2022 End: 06-04-2022 Patient encounter procedure Services [place] Work Phone: [facility]-XRay [facility] Start: 05-24-2022 End: 05-24-2022 Admission to same day surgery center Services [place] Work Phone: [facility]-Surgery Center [facility] Start: 05-22-2022 End: 05-22-2022 Patient encounter procedure Services [place] Work Phone: [facility]-Surgical Testing Start: 05-22-2022 End: 05-22-2022 Patient encounter procedure Mark Anthony Child KUMAR [facility] [place] Start: 05-21-2022 End: 05-21-2022 Patient encounter procedure Services [place] Phone: [facility] Start: 05-19-2022 End: 05-19-2022 Emergency department patient visit Services [place] Phone: [facility]-Emergency Room Start: 05-07-2022 End: 05-07-2022 Patient encounter procedure Services [place] Phone: [facility]-Surgical Testing Start: 05-02-2022 End: 05-02-2022 Patient encounter procedure Services [place] Phone: [facility]-MRI [address] Start: 04-19-2022 End: 04-19-2022 ambulatory Mart Henry Other [employer] Other Start: 04-19-2022 Office outpatient vi sit 15 minutes Mart Henry [facility] Neurosurgery Start: 04-19-2022 End: 04-19-2022 Patient encounter procedure Services [place] Phone: [facility] Start: 09-26-2021 End: 09-26-2021 ambulatory Mart Henry Other [employer] [employer] Other Start: 09-26-2021 Office outpatient vi sit 15 minutes Mart Carl [facility] Neurosurgery Start: 08-29-2021 End: 08-29-[address] ALFREDO LEWIS Facility:H1 Cardiovascular stres s test abnormal Ganga Hernandez Work Phone: -[facility] 250 DO Work Phone: Procedures Date Procedure Procedure Detail Performing Clinician Start: 07-24-2023 CT of head without contrast MD Ganga Hernandez Work Phone: Start: 07-24-2023 Plain chest X-ray MD Quiana Hernandez Work Phone: Start: 07-12-2023 MRI of head MD Ganga Hernandez Work Phone: Start: 07-11-2023 Plain chest X-ray MD Quiana Hernandez Work Phone: Start: 07-11-2023 CT of head without contrast MD Ganga Hernandez Work Phone: Start: 07-11-2023 Blood culture for ba cteria, including anaerobic screen MD Ganga Hernandez Work Phone: Start: 07-11-2023 SARS-CoV-2, Influenz a & RSV (PCR) MD Ganga Hernandez Work Phone: Start: 07-11-2023 Doppler ultrasonogra phy of bilateral carotid arteries MD Ganga Hernandez Work Phone: Start: 04-04-2023 CT of abdomen and pe lvis without contrast MD Ganga Hernandez Work Phone: Start: 02-05-2023 Plain chest X-ray MD Quiana Hernandez Work Phone: Start: 12-12-2022 Ultrasonography of b ilateral kidneys MD Ganga Hernandez Work Phone: Start: 10-08-2022 Plain X-ray of left hip MD Ganga Hernandez Work Phone: Start: 10-02-2022 MR angiography of he ad with contrast MD Ganga Hernandez Work Phone: Start: 10-02-2022 Magnetic resonance angiography of neck without contrast MD Ganga Hernandez Work Phone: Start: 10-01-2022 Doppler ultrasonogra phy of bilateral carotid arteries MD Ganga Hernandez Work Phone: Start: 10-01-2022 CT of head without contrast MD Ganag Hernandez Work Phone: Start: 10-01-2022 Plain chest X-ray MD Quiana Hernandez Work Phone: Start: 10-01-2022 SARS-CoV-2, Influenz a & RSV (PCR) MD Ganga Hernandez Work Phone: Start: 10-01-2022 Urine culture MD Ganga Hernandez Work Phone: Start: 07-26-2022 Local excision Services [place] Phone: Start: 07-26-2022 Repair of umbilical hernia Services [place] Phone: Start: 06-15-2022 Cystoscopy Services [facility] [place] Work Phone: Start: 06-15-2022 Diagnostic radiograp hy of abdomen Services [place] Phone: Start: 06-04-2022 Diagnostic radiograp hy of abdomen Services [place] Phone: Start: 05-24-2022 Extracorporeal shock wave lithotripsy Services [place] Phone: Start: 05-24-2022 Diagnostic radiograp hy of abdomen Services [place] Work Phone: Start: 05-21-2022 Diagnostic radiograp hy of abdomen Services [place] Phone: Start: 05-19-2022 CT of abdomen and pe lvis without contrast Services [place] Phone: Start: 05-02-2022 MR lumbar spine wo con Services [place] Phone: Start: 04-19-2022 X-ray of lumbar spin e, four views Services [place] Phone: Start: 10-21-2016 Extracorporeal shock wave lithotripsy of calculus of kidney Mark Anthony HEATH Excision of cyst Ganga artis Work Phone: Hernia repair Ganga Hernandez Work Phone: Lithotripsy Ganga Hernandez Work Phone: Procedure on neck Ganga feliciano Work Phone: Tonsillectomy Ganga Hernandez Work Phone: Urine culture Ganga David Work Phone: Plan of Treatment Date Care Activity Detail Author Start: 07-13-2023 [facility] Start: 07-11-2023 Referral to neurologist [facility] Start: 07-11-2023 Hospital admission [facility] Start: 07-11-2023 Blood culture for ba cteria, including anaerobic screen Blood Culture [facility] Start: 06-21-2023 Extracorporeal shock wave lithotripsy OR Kidney ECSWL Single W/Cysto/Retro (Right) [facility] Start: 04-11-2023 FUV, Provider: Demarco Jefferson, Status: Pen, Time: 11:20 AM FUV, Provider: Demarco Jefferson, Status: Pen, Time: 11:20 AM [facility] 250 DO Work Phone: Start: 02-14-2023 REST ONLY, Provider: VIBHA PRESTONI NUCLEAR 01,[id number], Status: Pen, Time: 12:30 PM REST ONLY, Provider: VIBHA HHVI NUCLEAR 01,[id number], Status: Pen, Time: 12:30 PM [facility] 250 DO Work Phone: Start: 02-13-2023 STRESSNUC2, Provider : VIBHA HHVI NUCLEAR 01,[id number], Status: Pen, Time: 1:00 PM STRESSNUC2, Provider: VIBHA HHVI NUCLEAR 01,[id number], Status: Pen, Time: 1:00 PM [facility] 250 DO Work Phone: Start: 02-06-2023 [facility] Start: 02-05-2023 Referral to filling winder [facility] Start: 02-05-2023 Hospital admission [facility] Start: 10-25-2022 Revision of left tot al hip arthroplasty OR Total Hip Arthro MIS/Revision (Left) [facility] Start: 10-03-2022 Blood chemistry [facility] Start: 10-03-2022 End: 10-03-2022 [facility] Start: 10-02-2022 MR angiography of he ad with contrast MR angio MR brain wo/w con [facility] Start: 10-02-2022 MRI of neck vessels MR angio neck w con [facility] Start: 10-02-2022 Blood chemistry [facility] Start: 10-02-2022 [facility] Start: 10-01-2022 Physical therapy procedure [facility] Start: 10-01-2022 Referral to occupati onal therapist [facility] Start: 10-01-2022 Referral to speech a nd language therapy service [facility] Start: 10-01-2022 Doppler ultrasonogra phy of bilateral carotid arteries US carotid doppler BI [facility] Start: 10-01-2022 US.doppler Carotid a rteries - bilateral [facility] Start: 10-01-2022 Referral to neurologist [facility] Start: 07-26-2022 [facility] Start: 07-26-2022 End: 07-26-2022 [facility] Start: 07-24-2022 [facility] Start: 06-15-2022 End: 06-15-2022 [facility] Start: 06-15-2022 Cystoscopy OR Cysto/Retro/Stent/St one/Holmium Laser (Left) [facility] Start: 06-15-2022 Diagnostic radiograp hy of abdomen XR KUB [facility] Start: 06-15-2022 End: 06-15-2022 Admission to same day surgery center Departed Surgical Day Care [facility]-Surgery Center [place] Start: 06-13-2022 End: 06-13-2022 Patient encounter procedure Departed Clinical [facility] Start: 06-04-2022 Diagnostic radiograp hy of abdomen XR KUB [facility] Start: 06-04-2022 End: 06-04-2022 Patient encounter procedure Departed Clinical [facility] Ctr-XRay [facility] Start: 05-24-2022 [facility] Start: 05-24-2022 Extracorporeal shock wave lithotripsy OR Kidney ECSWL Single W/Cysto/Retro (Left) [facility] Start: 05-24-2022 Revision of left tot al hip arthroplasty OR Total Hip Arthro MIS/Revision (Left) [facility] Start: 05-24-2022 Diagnostic radiograp hy of abdomen XR KUB [facility] Start: 05-24-2022 End: 05-24-2022 Admission to same day surgery center Departed Surgical Day Care [facility] Anion gap measurement [facility] Work Phone: Bacteria identified in Urine by Culture [facility] Basophils [#/volume] in Blood by Automated count [facility] Work Phone: Basophils/100 leukoc ytes in Blood by Automated count [facility] Work Phone: Calcium [Mass/volume ] in Serum or Plasma [facility] Work Phone: Calculated LDL pelon sterol level [facility] Work Phone: Carbon dioxide, tota l [Moles/volume] in Serum or Plasma [facility] Work Phone: Chloride [Moles/volu me] in Serum or Plasma [facility] Work Phone: Cholesterol [Mass/vo lume] in Serum or Plasma [facility] Work Phone: Cholesterol in HDL [Mass/volume] in Serum or Plasma [facility] Work Phone: Cholesterol.total/Ch olester ol in HDL [Mass Ratio] in Serum or Plasma [facility] Work Phone: Creatinine and Glome rular filtration rate.predicted panel - Serum, Plasma or Blood [facility] Work Phone: Eosinophils [#/volum e] in Blood [facility] Work Phone: Eosinophils/100 leuk ocytes in Blood by Automated count [facility] Work Phone: Erythrocyte distribu tion width [Ratio] by Automated count [facility] Work Phone: Erythrocytes [#/volu me] in Blood [facility] Work Phone: Glucose [Mass/volume ] in Serum or Plasma [facility] Work Phone: Hematocrit [Volume Fraction] of Blood [facility] Work Phone: Hemoglobin [Mass/vol ume] in Blood [facility] Work Phone: Leukocytes [#/volume ] corrected for nucleated erythrocytes in Blood by Automated coun [facility] Work Phone: Leukocytes [#/volume ] in Blood [facility] Work Phone: Lymphocytes [#/volum e] in Blood by Automated count [facility] Work Phone: Lymphocytes/100 leuk ocytes in Blood by Automated count [facility] Work Phone: MCH [Entitic mass] b y Automated count [facility] Work Phone: MCHC [Mass/volume] b y Automated count [facility] Work Phone: MCV [Entitic volume] by Automated count [facility] Work Phone: Measurement of renal function [facility] Work Phone: Monocytes [#/volume] in Blood by Automated count [facility] Work Phone: Monocytes/100 leukoc ytes in Blood by Automated count [facility] Work Phone: Neutrophils [#/volum e] in Blood by Automated count [facility] Work Phone: Neutrophils/100 leuk ocytes in Blood by Automated count [facility] Work Phone: Nucleated erythrocyt es [Presence] in Blood by Automated count [facility] Work Phone: Patient Education [facility] Work Phone: Patient referral [facility] Work Phone: Platelet mean volume [Entitic volume] in Blood by Automated count [facility] Work Phone: Platelets [#/volume] in Blood [facility] Work Phone: Potassium [Moles/vol ume] in Serum or Plasma [facility] Work Phone: SARS-CoV-2 (COVID-19 ) N gene [Presence] in Respiratory specimen by ANGÉLICA with probe detection [facility] Work Phone: Sodium [Moles/volume ] in Serum or Plasma [facility] Work Phone: Triglyceride [Mass/v olume] in Serum or Plasma [facility] Work Phone: Troponin I.cardiac [Mass/volume] in Serum or Plasma by High sensitivity method [facility] Work Phone: Urea nitrogen [Mass/ volume] in Serum or Plasma [facility] Work Phone: VLDL cholesterol measurement [facility] Work Phone: Immunizations Immunization Date Immunization Notes Care Provider Fa maryana 09-20-2021 COVID-19 mRNA, Comirnaty (Pfizer) Services [facility] Work Phone: [facility] 03-23-2021 COVID-19 mRNA-1273 (Moderna) Services [facility] Work Phone: [facility] 02-23-2021 COVID-19 mRNA-1273 (Moderna) Services [facility] Work Phone: [facility] 10-21-2020 SARS-CoV-2 (COVID-19 ) [id number] vaccine Mark Anthony HEATH [facility] Comment on above: Result Comment: 3 [facility] Payers Date Payer Category Payer Medicare [id number] 2023 Self-pay [id number] 1961 Medicaid [id number] 1961 Medicare [id number] 1960 Unknown [id number] 2.16.84 [id number] 1958 Unknown [id number] 2.16.8 [id number] 1958 Unknown [id number] 2.16.8 [id number] 1958 Unknown [id number] 2.16.8 40.1.556247.3.579.2.727 1958 Unknown [id number] 2.16.8 40.1.303362.3.579.2.727 1958 Unknown [id number] 2.16. 840.1.554306.3.579.2.356 1958 Unknown [id number] 2.16. 840.1.594366.3.579.2.356 1958 Unknown [id number] 2.16. 840.1.890363.3.579.2.356 1958 Unknown [id number] 2.16. 840.1.625870.3.579.2.356 1958 Unknown [id number] 2.16.84 0.1.620422.3.579.2.1259 1958 Unknown [id number] 2.16.84 0.1.373468.3.579.2.1259 1958 Unknown [id number] 2.16.84 0.1.174297.3.579.2.1259 Medicaid [place] [employer] [id number] Medicaid Unknown MMO [id number] Unknown [place] BC/BS [id number] Unknown [id number] Unknown Unknown [id number] 2.16.8 40.1.288931.3.579.2.531 Unknown [id number] 2.16.8 40.1.088798.3.579.2.531 Unknown [id number] 2.16.8 40.1.277924.3.579.2.531 Unknown [id number] 2.16.8 40.1.092744.3.579.2.531 Unknown [id number] 2.16.8 40.1.510965.3.579.2.531 Social History Date Type Detail Facility Sex Assigned At [facility] Other Start: 10-19-2020 End: 02-06-2023 Tobacco smoking status Ex-smoker (finding) [facility] Work Phone: Tobacco smoking status Never [facility] [place] Start: 1960 Sex Assigned At Male [facility] Start: 10-01-2022 End: 07-24-2023 Tobacco smoking status NHIS Never smoked tobacco (finding) [facility] No alcohol use No alcohol use [facility]-[place] 250 DO Work Phone: Comment on above: Occasional coffee; Quit 1999; Medical Equipment Procedure Code Equipment Code Equipment Original Text Equipment Identifier Dates Repair, hernia, umbilical Abdominal hernia surgical mesh, composite-polymer ()[id number] FDA Start: 07-26-2022 Extracorporeal shockwave lithotripsy (ESWL) with cystoscopic insertion of urinary glenn Polymeric ureteral stent ()[id number] FDA Start: 05-24-2022 Spinal fixation plate, non-bioabsorbable ()[id number] FDA Start: 03-15-2021 Spinal fixation plate, non-bioabsorbable ()[id number] FDA Start: 03-15-2021 Spinal fixation plate, non-bioabsorbable ()[id number] FDA Start: 03-15-2021 Intervertebral-b o dy internal spinal fixation system ()[id number] FDA Start: 03-15-2021 Goals Date Patient Goal Desired Activity /State Functional Status Date Assessment Result Facility 07-13-2023 Functional status Patient at [facility] Work Phone: 02-06-2023 Functional status Patient at [facility] Work Phone: 10-03-2022 Functional status Patient at [facility] Work Phone: 10-02-2022 Functional status Patient at [facility] Work Phone: 05-22-2022 Functional Status N/A [facility] Mental Status Date Assessment Result Facility 07-13-2023 Cognitive function Cognitive Sta tus Patient at Baseline [facility] Work Phone: 02-06-2023 Cognitive function Cognitive Sta tus Patient at Baseline [facility] Work Phone: 10-03-2022 Cognitive function Cognitive Sta tus Patient at Baseline [facility] Work Phone: 10-02-2022 Cognitive function Cognitive Sta tus Patient Not at Baseline [facility] Work Phone: Clinical Notes 09-26-2021 to 07-13-2023 Note Date & Type Note Facility 07-13-2023 Progress note Note Date/Time July 13, 2023 12:02pm [facility] [address] [place], [place] [id number] Neurology Progress Note Signed Patient: Rod Mathias MR#: [id number] : 1960 Acct:[id number] Age/Sex: 62 / M Adm Date: 3 Loc: 4N Room: [address] [place] [address] Type: ADM INOo Attending Dr: Shaila Bowen MD Copies to: ~ Date of Service: 07/13/2023 Exam Physical Exam Vital Signs: Temp Pulse Resp BP Pulse Ox O2 Del Method 98.2 F 75 14 121/76 95 Room Air 07/13/23 07:47 07/13/23 07:47 07/13/23 07:47 07/13/23 07:47 07/13/23 07:47 07/13/23 03:19 Objective Vital Signs Vital Signs: Vital Signs - 24 hr 07/12/23 16:37 07/12/23 19:45 07/12/23 23:24 Temperature 98.1 F 97.8 F 98.3 F Pulse Rate 76 73 70 Respiratory Rate 14 18 17 Blood Pressure 135/77 121/74 151/78 H 02 Sat by Pulse Oximetry 95 95 94 L Oxygen Delivery Method Room Air Room Air Room Air 07/13/23 03:19 07/13/23 07:47 Temperature 98.2 F 98.2 F Pulse Rate 70 75 Respiratory Rate 17 14 Blood Pressure 111/67 121/76 02 Sat by Pulse Oximetry 97 95 Oxygen Delivery Method Room Air Labs 07/13/23 04:51 07/13/23 04:51 Therapy Recommendations Therapy Recommendations: OT Recommendations OT Recommended Discharge Home,Home with Outpatient Location OT Recommended Services at Physical Therapy Discharge PT Recommendations PT Recommended Discharge Home Location Assessment/Plan (1) TIA (transient ischemic attack): Assessment/Problem Details: CONSULT REASON: Possible syncope SUBJECTIVE: He is feeling much better on his feet since yesterday. Is able to ambulate without much difficulty. No presyncope. Right side of his body still feels different than his left, but same as it chronically does. No significant headaches. He feels much better and says he is ready to get out of here. He isfrustrated with the lack of any definitive diagnosis. I told him to do some Internet searching about atypical migraine auras because I think that may be themost likely sort of issue left that could contribute to prolonged episodes of brain fog, during which she complains of headaches. Otherwise he does not get headaches. EXAMINATION: Well-kempt. No distress. No deformities or trauma. Normal spinal curvature. Limbs seem well-perfused. No significant edema. Normal work of breathing. Visualized skin is generally intact and without lesions. Affect normal. Patient is alert and generally oriented. Attention seems mildly impaired. Speech is fluent and nondysarthric. Pupils are equal and reactive. Ocular motility is full. No nystagmus. Facial sensation is normal. Hearing is normal. Facial strength is normal. Tongue is midline. Muscle bulk, tone, and strength are normal. No tremors. Reflexes mildly hyperactive throughout and hehas bilateral Cece signs. Vibratory sensation is diminished in the right upper and right lower extremity. No limb dysmetria with [id number] testing. DATA REVIEW: -CT head without any acute intracranial process -EKG normal sinus rhythm 81 bpm -Labs reviewed -MRI brain from October 02, 2022 shows no evidence of any acute or chronic or remote ischemia, same with February 23, 2021, November 18, 2020. MRA with normal vertebrobasilar system -MRI from November 05, 2018 for facial droop showed a tiny nonacute possible chronic lacunar infarction in right thalamus. He presented at that time with headache, abnormal speech, right-sided leg weakness, left-sided facial numbness. -Orthostatic vital signs are negative -Routine EEG July 12, 2023 normal -Carotid Doppler study is normal -MRI brain with and without contrast from July 12, 2023 unremarkable for any acute process ASSESSMENT: 1. Syncope? Unwitnessed. He does not remember what happened, just came to on the floor with his trying to wake him up. Has a lot of other potentially associated symptoms. Feels foggy or like he is having trouble thinking or conversing. Had a severe posterior throbbing headache. Continues to feel off balance when upright. EEG is normal, as it was before. I do not suspect he hasa seizure disorder. 2. He says he has a history of stroke based on an MRI from October 2018 that showed a punctate focus of FLAIR hyperintensity in the right thalamus. I am notsure if that represents a minuscule chronic lacunar infarction or is just a nonspecific white matter change. That thalamus looks unremarkable in later studies. He says he has persistent right-sided hemiparesis since that stroke, which anatomically does not make sense, and objectively I cannot find any strength deficits on that right side. Some of his symptoms may have an elusive cause, such as atypical migraine auras, and I would give consideration to some functional symptoms as well. 3. Imbalance has resolved. Yesterday when he was symptomatic, his Romberg is negative despite a lot of swaying that might be somewhat exaggerated. 3. Episodes of fogginess or difficulty thinking, sometimes with throbbing headaches. Complicated migraine auras? PLAN: 1. We discussed options for migraine preventative medications. We decided on propranolol 80 mg extended release daily. Side effects were discussed. 2. Follow-up in outpatient neurology clinic for ongoing management of what seems like might be an atypical migraine aura issue 3. Okay for discharge Code(s): G45.9 - Transient cerebral ischemic attack, unspecified Status: Acute Documented By: Mikey Rose DO 07/13/23 1200 Signed By: <Electronically signed by Mikey Rose DO> 07/13/23 1401 [facility] Work Phone: 1(786) 728-481809-22-2023 Progress note Author Shaila Bowen [facility] July 12, 2023 6:48pm Note Date/Time July 12, 2023 6:42pm [facility] [address] [place] [address] Hospitalist Progress Note Signed Patient: Rod Mathias MR#: [id number] : 1960 Acct:[id number] Age/Sex: 62 / M Adm Date: 3 Loc: 4N Room: 4F9491-0 Type: ADM INOo Attending Dr: Shaila Bowen MD Copies to: ~ Date of Service: 07/12/2023 Subjective Subjective Narrative: Assessment And Plan 62M with PMH of HTN, DM, HLD, CVA/TIA, CKD, chronic back pain, h/o Suspected atypical migraine, bilateral nephrolithiasis. who presented with AMS and admitted for the evaluation and treatment Acute Encephalopathy he still feel little bit confused the patient presents with acute confusional state after syncope. ABG shows no hypercapnia urinalysis is not suggestive for UTI CXR suggestive for HF but no focal consolidation. No sign of infection CT brain shows no acute intracranial process Ammonia wnl Lipid panel ( LDL 117, Triglyceride 438 ) EEG is normal Unclear cause. Agree with MRI neurology recommendation appreciated supportive and treatment of the underlying condition Syncopal episode the characteristic of the syncope is unclear . he was found on the floor by his . basilar migraine is possibility. other causes can't be ruled out EKG ED shows NSR@ 81 bpm no acute changes Echocardiography is Normal carotid duplex ultrasound shows no significant stenosis in both extracranial internal carotid artery Orthostatic vitals negative for Orthostatic hypotension Telemetry DM sliding scale insulin and accuchecks. A1c 8.4 last year Invokana hypoglycemia protocol. INTERVAL HPI:?As Above, Pt resting in bed. feeling little better but he still feel confused with headache Chronic diseases:?Unless mentioned Above, Essential home medications have been continued.? DVT Px:?Addressed Disposition:?To be determined Plan of care Discussed with:?the medical team, the patient Exam Physical Exam Vital Signs: Temp Pulse Resp BP Pulse Ox O2 Del Method 36.7 C 76 14 135/77 95 Room Air 07/12/23 16:37 07/12/23 16:37 07/12/23 16:37 07/12/23 16:37 07/12/23 16:37 07/12/23 16:37 Narrative: GEN: Pleasant, Cooperative, Not in acute distress. LUNGS: CTA CV: S1S2 nl, ? M/R/G ABD: Soft, ND, NT, + BS EXT: No edema in LE bilaterally, no calf muscle tenderness. NEURO: ? FND PSYCH: nl affect, AOx3. Objective Lab Results 07/12/23 05:46 07/12/23 05:45 Microbiology Results Microbiology 07/11/23 16:53 Blood - Left Antecubital Blood Culture - Preliminary No Growth 1 Day 07/11/23 16:53 Nasopharyngeal SARS-CoV-2, Influenza & RSV (PCR) - Final Meds Allergies and Active Meds Allergies No Known Allergies Allergy (Verified 07/11/23 16:48) Active Meds: Active Medications Generic Name Dose Route Start Last Admin Trade Name Freq PRN Reason Stop Dose Admin Acetaminophen 650 mg 07/11/23 20:05 07/12/23 11:10 Acetaminophen 325 Mg Tablet PO 07/10/24 20:04 650 mg Q6H PRN Administration Pain 1-5 or fever Hydrocodone Bitart/Acetaminophen 1 - 2 tab 07/11/23 20:04 07/12/23 18:07 Hydrocodone/Acetaminophen 5-325 Mg Tablet PO 2 tab Q4H PRN Administration Pain Alprazolam 0.5 mg 07/11/23 20:04 07/12/23 18:17 Alprazolam 0.5 Mg Tablet PO 01/07/24 20:03 0.5 mg Q8H PRN Administration Anxiety Amlodipine Besylate 5 mg 07/12/23 09:00 07/12/23 09:14 Amlodipine 5 Mg Tablet PO 07/11/24 08:59 5 mg QAM PEEWEE Administration Aspirin 81 mg 07/12/23 09:00 07/12/23 09:14 Aspirin 81 Mg Tablet. PO 07/11/24 08:59 81 mg QAM PEEWEE Administration Atorvastatin Calcium 40 mg 07/11/23 21:00 07/11/23 21:48 Atorvastatin 40 Mg Tablet PO 07/10/24 20:59 40 mg QPM PEEWEE Administration Buspirone HCl 15 mg 07/11/23 21:00 07/12/23 09:14 Buspirone 15 Mg Tablet PO 07/10/24 20:59 15 mg BID PEEWEE Administration Canagliflozin 100 mg 07/12/23 09:00 07/12/23 09:14 Canagliflozin 100 Mg Tablet PO 07/11/24 08:59 100 mg QAM PEEWEE Administration Dextrose 0 gm 07/12/23 00:27 Dextrose 50% In Water 25 Gm/50 Ml Syringe IV-PUSH 07/11/24 00:26 PRN PRN Hypoglycemia Glucose 0 gm 07/12/23 00:27 Dextrose 40% Gel 15 Gm Tube PO 07/11/24 00:26 PRN PRN Hypoglycemia Heparin Sodium (Porcine) 5,000 unit 07/11/23 09:00 07/12/23 09:14 Heparin 5,000 Unit/Ml Vial SUBCUT 07/10/24 08:59 5,000 unit BID PEEWEE Administration Insulin Aspart 0 units 07/12/23 08:00 07/12/23 16:49 Insulin Aspart 300 Units/3 Ml Insuln.Pen SUBCUT 07/11/24 07:59 1 units TID.WM.HS PEEWEE Administration Protocol Losartan Potassium 100 mg 07/12/23 09:00 07/12/23 09:14 Losartan 50 Mg Tablet PO 07/11/24 08:59 100 mg DAILY PEEWEE Administration Ondansetron HCl 4 mg 07/11/23 20:05 Ondansetron 4 Mg/2 Ml Vial IV-PUSH 07/10/24 20:04 Q6H PRN Nausea And Vomiting Potassium Chloride 40 meq 07/11/23 20:05 Potassium Chloride Er 20 Meq Tab.Er.Prt PO 07/10/24 20:04 DAILY PRN Hypokalemia Sodium Chloride 0 ml 07/11/23 16:47 07/11/23 18:47 Sodium Chloride 0.9 % 10 Ml Syringe IV-PUSH 07/10/24 16:46 10 ml PRN PRN Administration Flush Documented By: Shaila Bowen MD 07/12/23 1836 Signed By: <Electronically signed by Shaila Bowen MD> 07/12/[address] [facility] Work Phone: 1(840) 774-381509-22-2023 Consult note Author Mikey Rose [facility] July 12, 2023 3:35pm Note Date/Time July 12, 2023 12:20pm [facility] [address] [place] [address] Neurology Consult Note Signed Patient: Amadou Mathiasn Ortiz MR#: [id number] : 1960 Acct:[id number] Age/Sex: 62 / M Adm Date: 3 Loc: 4N Room: 8Y8420-9 Type: ADM INOo Attending Dr: Shaila Bowen MD Copies to: DO Shaila Ovalle MD Robert L Hill, MD~ HPI Consult Date: 07/12/23 Reproduction Machine Loader: Mikey Rose DO 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 History of TIA (transient ischemic attack) Hx of renal calculi Hyperlipidemia Hypertension Numbness and tingling of leg janice Restless legs Surgical History H/O hernia repair Hx of cervical spine surgery anterior Hx of cystoscopy stone basket Hx of lithotripsy Family History Brother Diabetes Mother HTN (hypertension) Father Medical history unknown Social History Smoking Status: Never smoker Tobacco Type: cigarettes Substance Use Type: None Substance Abuse Comment: occasional social alcohol use Meds Medications and Allergies Allergies No Known Allergies Allergy (Verified 07/11/23 16:48) Home Medications amlodipine 5 mg tablet 5 mg PO QAM htn 02/22/21 [History Confirmed 07/11/23] canagliflozin 100 mg tablet (Invokana) 100 mg PO QAM DM 05/07/22 [History Confirmed 07/11/23] atorvastatin 40 mg tablet (Lipitor) 40 mg PO QPM hyperlipidemia 07/12/22 [History Confirmed 07/11/23] aspirin 81 mg capsule 81 mg PO QAM 10/02/22 [History Confirmed 07/11/23] hydrocodone 5 mg-acetaminophen 325 mg tablet 1 - 2 tab PO Q4-6H PRN Pain 10/02/22 [History Confirmed 07/11/23] semaglutide 7 mg tablet (Rybelsus) 7 mg PO DAILY DM 02/05/23 [History Confirmed 07/11/23] alprazolam 0.5 mg tablet 0.5 mg PO Q8H PRN Anxiety 06/07/23 [History Confirmed 07/11/23] buspirone 15 mg tablet 15 mg PO BID 06/07/23 [History Confirmed 07/11/23] losartan 100 mg tablet 100 mg PO DAILY 06/07/23 [History Confirmed 07/11/23] Exam Physical Exam Vital Signs: Temp Pulse Resp BP Pulse Ox O2 Del Method 97.5 F L 73 14 132/74 95 Room Air 07/12/23 11:29 07/12/23 11:29 07/12/23 11:29 07/12/23 11:29 07/12/23 11:29 07/12/23 11:29 Results Laboratory Findings 07/12/23 05:46 07/12/23 05:45 Lab Results: Ammonia 27 umol/L (11-35) 07/12/23 05:46 Diagnostic Findings Imaging/Impressions: ITS Impressions Carotid Doppler Study 07/11/23 05:00 IMPRESSION: NO HEMODYNAMICALLY SIGNIFICANT STENOSIS OF EITHER EXTRACRANIAL INTERNAL CAROTID ARTERY. BOTH VERTEBRAL ARTERIES ARE PATENT WITH ANTEGRADE FLOW. Impression dictated by: Arun Coliler MD07/12/2023 10:17 AM Dictation Location: [facility] 07/11/23 16:38 IMPRESSION: No acute intracranial pathology. No significant interval change. Impression dictated by: Darien Roldan M.D.07/11/2023 5:32 PM Dictation Location: [place] [address] Chest X-Ray 07/11/23 16:39 IMPRESSION: There is cardiomegaly. There is mild perihilar vascular prominence. This may represent sequelae of congestive heart failure or volume overload. There is no focal consolidation. Impression dictated by: Darien Roldan M.D.07/11/2023 8:41 PM Dictation Location: [place] [address] Assessment/Plan (1) TIA (transient ischemic attack): Assessment/Problem Details: CONSULT REASON: Possible syncope HPI: 62-year-old man with history of stroke with residual right hemiparesis and atypical migraine. Came to the emergency department yesterday complaining of possible syncope. He says he simply woke up on the floor. He says he was confused and not oriented to the events of earlier in the day. He had a bilateral throbbing headache. Home medications include aspirin 81 mg daily. Hestill feels foggy. Feels like he is having a hard time participating in conversation. Feels very off balance when upright. Feels like he needs to holdonto things. He was evaluated by neurology back in October 2018 for acute onset of confusion,left facial paresthesias, right-sided weakness, lightheadedness, and blurred vision. He reported confusional spells. MRI was without explanatory lesion. There was a minuscule focus of hyperintensity in the right thalamus that was thought to possibly represent a tiny chronic lacunar infarction. Routine EEG was normal. He was evaluated by neurology back in February 2021 for room spinning vertigo and right lower extremity weakness. MRI of the brain was without any explanatory findings. I evaluated him back in September 2022 for persistent left face and left hemibodyparesthesias suspected to be cerebral in origin, but without any causative lesion on MRI. Imaging at that time appeared to show a tiny chronic right thalamic lacunar infarction that his symptoms could not be attributed to (too minuscule to cause his symptoms and appeared chronic while his symptoms were acute). At that time he was also having confusion or fogginess. EXAMINATION: Well-kempt. No distress. No deformities or trauma. Normal spinal curvature. Limbs seem well-perfused. No significant edema. Normal work of breathing. Visualized skin is generally intact and without lesions. Affect normal. Patient is alert and generally oriented. Attention seems mildly impaired. Speech is fluent and nondysarthric. Pupils are equal and reactive. Ocular motility is full. No nystagmus. Facial sensation is normal. Hearing is normal. Facial strength is normal. Tongue is midline. Muscle bulk, tone, and strength are normal. No tremors. Reflexes mildly hyperactive throughout and hehas bilateral Cece signs. Vibratory sensation is diminished in the right upper and right lower extremity. No limb dysmetria with [id number] testing. Romberg negative but he has exaggerating swaying. DATA REVIEW: -CT head without any acute intracranial process -EKG normal sinus rhythm 81 bpm -Labs reviewed -MRI brain from October 02, 2022 shows no evidence of any acute or chronic or remote ischemia, same with February 23, 2021, November 18, 2020. MRA with normal vertebrobasilar system -MRI from November 05, 2018 for facial droop showed a tiny nonacute possible chronic lacunar infarction in right thalamus. He presented at that time with headache, abnormal speech, right-sided leg weakness, left-sided facial numbness. -Orthostatic vital signs are negative -Routine EEG July 12, 2023 normal -Carotid Doppler study is normal ASSESSMENT: 1. Syncope? Unwitnessed. He does not remember what happened, just came to on the floor with his trying to wake him up. Has a lot of other potentially associated symptoms. Feels foggy or like he is having trouble thinking or conversing. Had a severe posterior throbbing headache. Continues to feel off balance when upright. EEG is normal, as it was before. I do not suspect he hasa seizure disorder. 2. He says he has a history of stroke based on an MRI from October 2018 that showed a punctate focus of FLAIR hyperintensity in the right thalamus. I am notsure if that represents a minuscule chronic lacunar infarction or is just a nonspecific white matter change. That thalamus looks unremarkable in later studies. He says he has persistent right-sided hemiparesis since that stroke, which anatomically does not make sense, and objectively I cannot find any strength deficits on that right side. Some of his symptoms may have an elusive cause, such as atypical migraine auras, and I would give consideration to some functional symptoms as well. 3. Imbalance. Romberg is negative despite a lot of swaying that might be somewhat exaggerated. 3. Episodes of fogginess or difficulty thinking, sometimes with throbbing headaches. Complicated migraine auras? PLAN: 1. I feel like we are unlikely to have a definitive answer as to what happened at his home, or why he has intermittent brain fog, subjective hemiparesis despite any explanatory brain lesion, or intermittent focal paresthesias. 2. MRI brain with and without contrast 3. Further recommendations to follow Code(s): G45.9 - Transient cerebral ischemic attack, unspecified Status: Acute Documented By: Mikey Rose DO 07/12/23 1215 Signed By: <Electronically signed by Mikey Rose DO> 07/12/23 3129 [facility] Work Phone: 1(151) 898-136609-22-2023 History and physical note Author Shaila Bowen [facility] July 12, 2023 12:47am Note Date/Time July 11, 2023 8:11pm [facility] [address] [place] [address] Hospitalist H&P Signed Patient: Rod Mathias MR#: [id number] : 1960 Acct:[id number] Age/Sex: 62 / M Adm Date: 3 Loc: 4N Room: [address] [place] [address] Type: ADM INOo Attending Dr: Shaila Bowen MD Copies to: MD Ganga Thomas MD~ HPI DATE OF EXAMINATION: 07/11/23 HISTORY OF PRESENT ILLNESS: This is a pleasant 62M with PMH of HTN, DM, HLD, CVA/TIA, CKD, chronic back pain, h/o Suspected atypical migraine, bilateral nephrolithiasis. who presentedwith AMS and admitted for the evaluation and treatment The patient reported that he does not recall the specifics of his incident, but believes he may have fallen. He experienced a bilateral throbbing headache, which has since improved. He denies having any chest pain, vision changes, weakness, numbness, slurred speech, fever, or chills. He was discovered on the floor by his . At that time, he was confused but his mental status has sincereturned to a state closely resembling his baseline. ROS: Ten Systems reviewed with the patient, all negative except what stated above and chronic back pain Assessment And Plan Acute Encephalopathy the patient presents with acute confusional state after syncope that resolved now ABG shows no hypercapnia urinalysis is not suggestive for UTI CXR suggestive for HF but no focal consolidation. No sign of infection CT brain shows no acute intracranial process Ammonia Unclear cause. basilar migraine is possibility . favor consulting neurology supportive and treatment of the underlying condition Syncopal episode the characteristic of the syncope is unclear . he was found on the floor by his . basilar migraine is possibility. other causes can't be ruled out EKG ED (i personally reviewed it) shows NSR@ 81 bpm no acute changes Echocardiography Telemetry Orthostatic vitals carotid duplex ultrasound neurology eval DM sliding scale insulin and accuchecks. A1c 8.4 last year Invokana hypoglycemia protocol. Chronic diseases:?Unless mentioned Above, Essential home medications have been continued.? DVT Px:?Addressed Code Status: FULL, discussed with patient Plan of care Discussed with:?the medical team, the patient 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 History of TIA (transient ischemic attack) Hx of renal calculi Hyperlipidemia Hypertension Numbness and tingling of leg janice Restless legs Surgical History H/O hernia repair Hx of cervical spine surgery anterior Hx of cystoscopy stone basket Hx of lithotripsy Family History Brother Diabetes Mother HTN (hypertension) Father Medical history unknown Social History Smoking Status: Never smoker Tobacco Type: cigarettes Substance Use Type: None Substance Abuse Comment: occasional social alcohol use Meds Medications and Allergies Allergies No Known Allergies Allergy (Verified 07/11/23 16:48) Home Medications amlodipine 5 mg tablet 5 mg PO QAM htn 02/22/21 [History Confirmed 07/11/23] canagliflozin 100 mg tablet (Invokana) 100 mg PO QAM DM 05/07/22 [History Confirmed 07/11/23] atorvastatin 40 mg tablet (Lipitor) 40 mg PO QPM hyperlipidemia 07/12/22 [History Confirmed 07/11/23] aspirin 81 mg capsule 81 mg PO QAM 10/02/22 [History Confirmed 07/11/23] hydrocodone 5 mg-acetaminophen 325 mg tablet 1 - 2 tab PO Q4-6H PRN Pain 10/02/22 [History Confirmed 07/11/23] semaglutide 7 mg tablet (Rybelsus) 7 mg PO DAILY DM 02/05/23 [History Confirmed 07/11/23] alprazolam 0.5 mg tablet 0.5 mg PO Q8H PRN Anxiety 06/07/23 [History Confirmed 07/11/23] buspirone 15 mg tablet 15 mg PO BID 06/07/23 [History Confirmed 07/11/23] losartan 100 mg tablet 100 mg PO DAILY 06/07/23 [History Confirmed 07/11/23] Exam Physical Exam Vital Signs: Temp Pulse Resp BP Pulse Ox O2 Del Method 36.6 C 80 24 138/81 94 L Room Air 07/11/23 19:58 07/11/23 19:58 07/11/23 19:58 07/11/23 19:58 07/11/23 19:58 07/11/23 19:58 Narrative: GEN: Pleasant, Cooperative, Not in acute distress. NECK: Supple, ? JVD LUNGS: CTA. normal respiratory effort. CV: S1S2 nl, ? M/R/G ABD: Soft, ND, NT, + BS, ? rebound/guarding, ?CVA tenderness, ? HSM EXT: No edema in LE bilaterally, no calf muscle tenderness. NEURO: ? FND, CN II-XII (intact), Motor Strength (5/5 RUE, 5/5 LUE, 5/5 RLE, 5/5LLE) , Sensation (Intact to soft touch), rapid alternating movements and finger to nose test normal and symmetric. PSYCH: nl affect, ? hallucinations, nl speech, AOx3. Results Lab Results Labs: Laboratory Last Values Corrected WBC 8.9 X10E3/uL (4.1-10.5) 07/11/23 16:53 Uncorrected WBC Count 8.9 x10E3/uL (4.1-10.5) 07/11/23 16:53 RBC 4.83 X10E6/uL (3.90-5.60) 07/11/23 16:53 Hgb 14.9 g/dL (13.0-17.0) 07/11/23 16:53 Hct 44.8 % (38.8-50.0) 07/11/23 16:53 MCV 92.8 fl (83.5-101) 07/11/23 16:53 MCH 30.8 pg (27.5-35.2) 07/11/23 16:53 MCHC 33.2 g/dL (32.5-35.6) 07/11/23 16:53 RDW 14.3 % (12.0-14.8) 07/11/23 16:53 Plt Count 222 x10E3/uL (150-450) 07/11/23 16:53 MPV 8.5 fl (6.6-10.1) 07/11/23 16:53 Neut % (Auto) 62.7 % (.) 07/11/23 16:53 Lymph % (Auto) 27.5 % (.) 07/11/23 16:53 [place] % (Auto) 8.1 % (.) 07/11/23 16:53 Eos % (Auto) 1.0 % (.) 07/11/23 16:53 Baso % (Auto) 0.7 % (.) 07/11/23 16:53 Nucleat RBC Rel Count 0.1 /100 WBC (0-0.5) 07/11/23 16:53 Neut # (Auto) 5.6 x10E3/uL (1.8-7.7) 07/11/23 16:53 Lymph # (Auto) 2.4 x10E3/uL (1.00-4.8) 07/11/23 16:53 [place] # (Auto) 0.7 x10E3/uL (0.0-0.8) 07/11/23 16:53 Eos # (Auto) 0.1 x10E3/uL (0.0-0.45) 07/11/23 16:53 Baso # (Auto) 0.1 x10E3/uL (0.0-0.2) 07/11/23 16:53 Monocyte Dist Width 16.92 % (0.00-20.00) 07/11/23 16:53 PT 10.8 Seconds (9.0-12.9) 07/11/23 16:53 INR 0.9 07/11/23 16:53 APTT 28.5 Seconds (25.1-36.5) 07/11/23 16:53 Sample Site Left radial 07/11/23 18:34 ABG pH 7.39 (7.35-7.45) 07/11/23 18:34 ABG pCO2 33.2 mmHg (35.0-45.0) L 07/11/23 18:34 ABG pO2 77.1 mmHg (80.0-100.0) L 07/11/23 18:34 ABG HCO3 19.4 mmol/L (23.0-29.0) L 07/11/23 18:34 ABG Total CO2 20.4 mmol/L (23.0-27.0) L 07/11/23 18:34 ABG O2 Saturation 95.7 % (95.0-100.0) 07/11/23 18:34 ABG O2 Content 8.7 mmol/L (6.6-9.7) 07/11/23 18:34 ABG Base Excess -4.6 mmol/L (-3.0-3.0) L 07/11/23 18:34 FiO2 21 % 07/11/23 18:34 Critical Value 07/11/23 18:34 PHA Creatinine Clear 61.83 07/11/23 16:53 Sodium 141 mmol/L (136-145) 07/11/23 16:53 Potassium 4.1 mmol/L (3.5-5.1) 07/11/23 16:53 Chloride 107 mmol/L (98-107) 07/11/23 16:53 Carbon Dioxide 23.0 mmol/L (21.0-31.0) 07/11/23 16:53 Anion Gap 15.1 mEq/L (6.0-15.0) H 07/11/23 16:53 BUN 15 mg/dL (7-25) 07/11/23 16:53 Creatinine 1.50 mg/dL (0.70-1.30) H 07/11/23 16:53 Est GFR (CKD-EPI) 51.666 mL/Min 07/11/23 16:53 Glucose 172 mg/dL (70-100) H 07/11/23 16:53 POC Glucose 181 mg/dl 07/11/23 16:48 POC Glucose Comment Glu2: cleaned meter 07/11/23 16:48 Lactic Acid 1.7 mmol/L (0.5-2.2) 07/11/23 16:53 Calcium 9.7 mg/dL (8.6-10.3) 07/11/23 16:53 Total Bilirubin 0.6 mg/dl (0.3-1.0) 07/11/23 16:53 Direct Bilirubin 0.10 mg/dL (0.03-0.18) 07/11/23 16:53 Indirect Bilirubin 0.5 mg/dL 07/11/23 16:53 AST 15 U/L (13-39) 07/11/23 16:53 ALT 18 U/L (7-52) 07/11/23 16:53 Alkaline Phosphatase 94 U/L (34-104) 07/11/23 16:53 Total Creatine Kinase 69 U/L (30-223) 07/11/23 16:53 Troponin I High Sens 7.9 pg/mL (0.0-20.0) 07/11/23 16:53 B-Natriuretic Peptide 10.0 pg/mL (5-100) 07/11/23 16:53 Total Protein 7.8 gm/dL (6.4-8.9) 07/11/23 16:53 Albumin 4.7 gm/dL (3.5-5.7) 07/11/23 16:53 Globulin 3.1 gm/dL 07/11/23 16:53 Albumin/Globulin Ratio 1.5 07/11/23 16:53 SARS-CoV-2 Rap RNA(RT-PCR) Negative (Negative) 07/11/23 16:53 Microbiology Results Micro: Microbiology - Results from entire visit 07/11/23 16:53 Nasopharyngeal SARS-CoV-2, Influenza & RSV (PCR) - Final ABG Interpretation ABG results: 07/11/23 18:34 ABG pH 7.39 ABG pCO2 33.2 L ABG pO2 77.1 L ABG HCO3 19.4 L ABG Total CO2 20.4 L ABG O2 Saturation 95.7 ABG O2 Content 8.7 ABG Base Excess -4.6 L Assessment & Plan IP vs OBS Justification Based on differential dx, clinical care plan, and risk of adverse events, if untreated, in my clinical judgement this patient requires an acute care setting as: OBSERVATION because of an expectation of an under 2 midnight stay. Estimated length of stay (# of days): 1 Documented By: Shaila Bowen MD 07/11/232009 Signed By: <Electronically signed by Shaila Bowen MD> 07/12/23 0047 [facility] [facility] Work Phone: 1(232) 554-963312-22-2022 Evaluation note* Encounter Date Diagnosis Assessment Notes Treatment Notes Treatment Clinical Notes Sep, Arthritis of lumbosacral spine (ICD-10 - M47.817) 62 year old male here for follow up to discuss chronic pain. He voices complaints of left hip pain. He rates his pain 10/10 today. He states his pain has significantly increased in the last 3 weeks. He feels his pain is negatively impacting his activities of daily living. He continues taking Winters and is requesting a refill of this today. He states he was scheduled for hip replacement surgery next month, however this may need to be re-scheduled depending on his blood glucose levels. Anatomy of spine as well as different treatment options were discussed in detail with patient in regards to patients condition. Patient feels low back pain is tolerable in comparison to his left hip pain and does not wish to proceed with injections for low back pain at this time. I encouraged the patient to continue taking medications as prescribed and I will refill his Winters as he feels this provides an element of relief. Sep, Arthropathy of left hip (ICD-10 - M16.12) Proceed with left hip replacement if applicable. In the meantime, he can continue with medications as prescribed. Sep, Lumbar radiculopathy (ICD-10 - M54.16) If his pain persists or worsens, we can consider other interventional options in the future as patient is unable to proceed with steroid injections at this time. Sep, Lumbar degenerative disc disease (ICD-10 - M51.36) Continue with current treatment plan. Sep, Other chronic pain (ICD-10 - G89.29) Patient has continued need for Winters. OARRS report processed and reviewed and shows no violations. Patient was educated on the risks and benefits of long term care administrator opioid use. Winters was refilled today, opioid risk assessment was done as well as pill count. Patient is compliant with opioid medication. The patient denies any opioid related side effects. [facility] Other 11-10-2022 Evaluation note* Encounter Date Diagnosis Assessment Notes Treatment Notes Treatment Clinical Notes Aug, Arthritis of lumbosacral spine (ICD-10 - M47.817) [facility] Other 11-09-2022 Evaluation note* Encounter Date Diagnosis Assessment Notes Treatment Notes Treatment Clinical Notes Aug, Arthritis of lumbosacral spine (ICD-10 - M47.817) 61 y/o male here with complaints of left hip pain with radiation into the groin. He states his pain started at least 1 year ago. He notes he was scheduled for a left hip replacement last year however it has been postponed due to other family issues. He notes he is now scheduled for the left hip replacement on October 25 and is unable to proceed with any steroid injections 3 months prior to surgery. He also voices complaints of low back pain with radiation down the left lower extremity to the foot. He states low back pain is secondary to a fracture which he states he is to follow up with Dr Henry for after treating his hip with Dr Amor. He feels pain negatively impacts his daily activities and sleeping pattern. Prior to examining the patient, I independently reviewed office notes from referring provider, Dr Amor. Pertinent imaging were reviewed and discussed in detail with the patient which showed degenerative disc disease and arthritis in the lower back. Anatomy of spine as well as different treatment options were discussed in detail with patient in regards to patients condition. If his pain persists or worsens, we can consider a bilateral lumbar facet medial branch nerve block under fluoroscopic guidance to treat his low back pain as he is unable to proceed with steroids at this time. Risks and benefits of procedure explained to patient; patient verbalizes understanding. Naida feels low back pain is tolerable in comparison to his left hip pain and does not wish to proceed at this time. In the meantime, I will prescribe Winters twice daily as he feels this provides an element of relief. Aug, Arthropathy of left hip (ICD-10 - M16.12) Proceed with left hip replacement. In the meantime, he can continue with medications as prescribed. Aug, Lumbar radiculopathy (ICD-10 - M54.16) If his pain persists or worsens, we can consider other interventional options in the future as patient is unable to proceed with steroid injections at this time. Aug, Lumbar degenerative disc disease (ICD-10 - M51.36) Continue with current treatment plan. Aug, Other chronic pain (ICD-10 - G89.29) Patient has continued need for Winters. OARRS report processed and reviewed and shows no violations. Patient was educated on the risks and benefits of long term care administrator opioid use. Winters was prescribed today. Opioid contract was signed with Dr Castañeda and explained to the patient in detail, patient verbalizes an understanding. Opioid risk assessment was done. The patient denies any opioid related side effects in the past. UDS performed through [facility] today, will await confirmatory results. Aug, Other Medical deci keaton making shows a new problem to me with further workup planned or suggested with the potential for extensive treatment options that were considered with the most applicable given this patient's situation as noted above. Treatment options considered include a combination of physical therapy approaches, pharmacologic management, and interventional procedures. Those most applicable to the patient were discussed at this time. Risk of complications and/or morbidity and mortality is high given that acute and chronic pain poses a threat to life and bodily function if undertreated, poorly treated or with failure to maintain adequate treatment and timely followup. Given the serious and fluctuating nature of pain with extensive consideration for whenever pain changes, there always remains the possibility of prolonged functional impairment requiring constant patient reassessment and high-level medical decision making. The amount and complexity of data reviewed is high given that patient labs, radiology reports, and other test were obtained, reviewed and summarized as applicable from the physician portal and/or outside medical records. Pertinent positive and negative findings were considered in medical decision-making. [facility] Other 10-01-2022 History general Narrative - Reported* Type Description Date Medical History Hypertension Medical History hyperlipidemia Medical History diabetes mallitus Surgical History Kidneys Surgical History ACDF-Doctor Henry Surgical History umbilical hernia repair 07/2022 Hospitalization History See Above Hospitalization History TIA, HTN, HPL, DMII 050 03/10 [facility] Other 10-01-2022 History general Narrative - Reported* Type Description Date Medical History Hypertension Medical History hyperlipidemia Medical History diabetes mallitus Surgical History Kidneys Surgical History ACDF-Doctor Henry Surgical History umbilical hernia repair 07/2022 Hospitalization History See Above Hospitalization History TIA, HTN, HPL, DMII 050 03/10 Hospitalization History TIA 09/2022 [facility] Other 09-22-2022 NoteHISTORY: Bone density screening COMPARISON: None. PROCEDURE: Imaging of the lumbar spine and bilateral hips was obtained for bone density evaluation. FINDINGS: REGION BMD (g/cm??) YOUNG ADULT T-SCORE AGE-MATCHED Z-SCORE LEFT NECK 0.969 0.3 1.3 RIGHT NECK 1.035 0.8 1.8 LUMBAR (L1-L4) 1.3 1.9 2.6 The mean BMD and corresponding T-score listed above indicates: Normal Bone Mass and places the patient at no significant risk for fracture. This information can serve as a baseline with which to compare future studies. Recommend follow-up exam in 2 years, sooner as clinically necessary. FRAX score not reported due to normal bone density. Comment: The T-score is the primary focus of the interpretation of a patient???s bone mineral density measurement. The T-score is the number of standard deviations and individual is above or below the mean value for a young female having normal bone mass. The WHO defines osteoporosis based on the T-score value: +1.0 to -0.9 : Normal bone mass -1.0 to -2.5 : Osteopenia and thus may be at future risk of fracture. -2.6 to -5.0 : Osteoporosis and at significantly increased risk of fracture. IMPRESSION: NORMAL BONE MASS : TWO YEAR FOLLOW-UP RECOMMENDED Report reported and signed by Amol Vogt on 07/12/2022 [facility]19-[facility] Evaluation note* Encounter Date Diagnosis Assessment Notes Treatment Notes Treatment Clinical Notes May, Left-sided low back pain without sciatica, unspecified chronicity (ICD-10 - M54.50) The brace did not help this patient with his pain and an MRI was independently reviewed and subsequently shows no bone edema whatsoever around L1, meaning there is probably no acute fracture. His back has gotten better overall but still bothers him on occasion. Normally we would recommend pain management at this time but because of his ongoing nephrolithiasis and stenting is not a good idea to proceed with pain management at the moment. If his renal issues clear and he desires pain management in the future I will gladly give him a referral, I told him just to call the office and we will send a referral for him.. [facility] Other 08-02-2022 Hospital Discharge instructions Patient Education 05/22/2022 11:25:55 Dietary Guidelines to Help Prevent Kidney Stones Dietary Guidelines to Help Prevent Kidney Stones Kidney stones are deposits of minerals and salts that form inside your kidneys. Your risk of developing kidney stones may be greater depending on your diet, your lifestyle, the medicines you take, and whether you have certain medical conditions. Most people can reduce their chances of developing kidney stones by following the instructions below. Depending on your overall health and the type of kidney stones you tend to develop, your dietitian may give you more specific instructions. What are tips for following this plan? Reading food labels Choose foods with no salt added or low-salt labels. Limit your sodium intake to less than 1500 mg per day. Choose foods with calcium for each meal and snack. Try to eat about 300 mg of calcium at each meal.Foods that contain 200 500 mg of calcium per serving include: ?8 oz (237 ml) of milk, fortified nondairy milk, and fortified fruit juice. ?8 oz (237 ml) of kefir, yogurt, and soy yogurt. ?4 oz (118 ml) of tofu. ?1 oz of cheese. ?1 cup (300 g) of dried figs. ?1 cup (91 g) of cooked broccoli. ?1 3 oz can of sardines or mackerel. Most people need 1000 to 1500 mg of calcium each day. Talk to your dietitian about how much calciumis recommended for you. Shopping Buy plenty of fresh fruits and vegetables. Most people do not need to avoid fruits and vegetables, even if they contain nutrients that may contribute to kidney stones. When shopping for convenience foods, choose: ?Whole pieces of fruit. ?Premade salads with dressing on the side. ?Low-fat fruit and yogurt smoothies. Avoid buying frozen meals or prepared deli foods. Look for foods with live cultures, such as yogurt and kefir. Cooking Do not add salt to food when cooking. Place a salt shaker on the table and allow each person to addhis or her own salt to taste. Use vegetable protein, such as beans, textured vegetable protein (TVP), or tofu instead of meat in pasta, casseroles, and soups. Meal planning Eat less salt, if told by your dietitian. To do this: ?Avoid eating processed or premade food. ?Avoid eating fast food. Eat less animal protein, including cheese, meat, poultry, or fish, if told by your dietitian. To dothis: ?Limit the number of times you have meat, poultry, fish, or cheese each week. Eat a diet free of meat at least 2 days a week. ?Eat only one serving each day of meat, poultry, fish, or seafood. ?When you prepare animal protein, cut pieces into small portion sizes. For most meat and fish, one serving is about the size of one deck of cards. Eat at least 5 servings of fresh fruits and vegetables each day. To do this: ?Keep fruits and vegetables on hand for snacks. ?Eat 1 piece of fruit or a handful of berries with breakfast. ?Have a salad and fruit at lunch. ?Have two kinds of vegetables at dinner. Limit foods that are high in a substance called oxalate. These include: ?Spinach. ?Rhubarb. ?Beets. ?Potato chips and [place] fries. ?Nuts. If you regularly take a diuretic medicine, make sure to eat at least 1 2 fruits or vegetables high in potassium each day. These include: ?Avocado. ?Banana. ?Sevier, prune, carrot, or tomato juice. ?Baked potato. ?Cabbage. ?Beans and split peas. General instructions Drink enough fluid to keep your urine clear or pale yellow. This is the most important thing you can do. Talk to your health care provider and dietitian about taking daily supplements. Depending on your health and the cause of your kidney stones, you may be advised: ?Not to take supplements with vitamin C. ?To take a calcium supplement. ?To take a daily probiotic supplement. ?To take other supplements such as magnesium, fish oil, or vitamin B6. Take all medicines and supplements as told by your health care provider. Limit alcohol intake to no more than 1 drink a day for non women and 2 drinks a day for men. One drink equals 12 oz of beer, 5 oz of wine, or 1 oz of hard liquor. Lose weight if told by your health care provider. Work with your dietitian to find strategies and an eating plan that works best for you. What foods are not recommended? Limit your intake of the following foods, or as told by your dietitian. Talk to your dietitian about specific foods you should avoid based on the type of kidney stones and your overall health. Grains Breads. Bagels. Rolls. Baked goods. Salted crackers. Cereal. Pasta. Vegetables Spinach. Rhubarb. Beets. Canned vegetables. Pickles. Olives. Meats and other protein foods Nuts. Nut butters. Large portions of meat, poultry, or fish. Salted or cured meats. Deli meats. Hotdogs. Sausages. Dairy Cheese. Beverages Regular soft drinks. Regular vegetable juice. Seasonings and other foods Seasoning blends with salt. Salad dressings. Canned soups. Soy sauce. Ketchup. Barbecue sauce. Canned pasta sauce. Casseroles. Pizza. Lasagna. Frozen meals. Potato chips. Ukrainian fries. Summary You can reduce your risk of kidney stones by making changes to your diet. The most important thing you can do is drink enough fluid. You should drink enough fluid to keep your urine clear or pale yellow. Ask your health care provider or dietitian how much protein from animal sources you should eat eachday, and also how much salt and calcium you should have each day. This information is not intended to replace advice given to you by your health care provider. Make sure you discuss any questions you have with your health care provider. Document Released: 02/01/2012 Document Revised: 01/27/2020 Document Reviewed: 09/17/2017 [employer] Patient Education 2020 [employer]. Follow Up Care 05/21/2022 14:04:05 With:KUMAR HAYS, Mark Anthony Child, URL Address: [address] [place] [address]- When: Unknown [facility] 06-30-2022 Evaluation note* Encounter Date Diagnosis Assessment Notes Treatment Notes Treatment Clinical Notes Mar, Cervical disc disorder at C5-C6 level with myelopathy (ICD-10 - M50.022) Mar, Lumbago with sciatica, right side (ICD-10 - M54.41) This gentleman has percussible pain in the upper lumbar or thoracolumbar region. I have ordered an AP and lateral lumbar x-ray he should be getting that shortly we will let him know what it shows I have also started him on a Medrol Dosepak. It is possible this patient has a compression fracture. Follow-up will be determined by the x-ray. I did follow-up with this x-ray which shows a possible compression fracture at L1 or L2 when compared to the previous CT. I think this patient should be fitted with a TLSO brace and undergo an MRI of the lumbar spine and then follow-up with me. The TLSO brace will be dispensed to reduce pain by restricting mobility of the trunk and to support the spinal muscles and/or spine. The brace will be needed for atleast 3 months and is needed so that patient may be up and around so that he may accomplish his ADL's and remain in an upright position, without the risk of leaning forward and risk of increased falls. Mar, Lumbago with sciatica, left side (ICD-10 - M54.42) Mar, Compression fracture of L1 vertebra, initial encounter (ICD-10 - S32.010A) [facility] Other 12-07-2021 Evaluation note* Encounter Date Diagnosis Assessment Notes Treatment Notes Treatment Clinical Notes Sep, Cervical disc disorder at C5-C6 level with myelopathy (ICD-10 - M50.022) I have independently reviewed his most recent x-ray of the cervical spine with flexion-extension views and compared it to the x-ray of the cervical spine on 05/02/2021 there has been slight subsidence and collapse of the graft he appears to have a cervical fusion at that level. The patient has had a good surgical outcome he is happy with his course he will follow up with me on an as-needed basis in the future. [facility] Other evaluation + Plan note No data available for this section [facility] Evaluation noteNo assessment information available [facility] Work Phone: Evaluation note* Diagnosis Onset Date Resolution Status Altered mental status acute Chest pain acute Confusion acute Dizziness acute Headache acute Speaking difficulty acute [facility] Work Phone: Evaluation note* Diagnosis Onset Date Resolution Status Altered mental status acute Chest pain acute Confusion acute Dizziness acute Headache acute Speaking difficulty acute TIA (transient ischemic attack) acute [facility] Work Phone: Evaluation note* Diagnosis Onset Date Resolution Status Chest pain acute Diabetes mellitus, type II a cute History of TIAs acute Hyperlipidemia acute Hypertension acute [facility] Work Phone: Evaluation note* Diagnosis Onset Date Resolution Status Altered mental status acute Syncope acute TIA (transient ischemic attack) acute [facility] Work Phone: History general Narrative - Reported* Type Description Date Medical History Hypertension Medical History hyperlipidemia Medical History diabetes mallitus Surgical History Kidneys Surgical History ACDF-Doctor Henry Hospitalization History See Above Hospitalization History TIA, HTN, HPL, DMII 05/0 03/10 [facility] Other Hospital Discharge instructions Additional Instructions 1. No driving if taking narcotic pain medication. 2. No lifting more than 20 pounds for 3 weeks. 3. After 2 days, can remove top dressing and may shower.[facility] Work Phone: Hospital Discharge instructions Additional Instructions If your symptoms return/worsen or you develop any further concerns or symptoms please see your doctor or return to the emergency department immediately.[facility] Work Phone: Progress note No data available for this section [facility] Summary Purpose Family History No Family History Records Found Relationship Condition Age at Onset Recorded Date/T bailey brother Diabetes mellitus Unknown Not Specified Hypertension Unknown Relationship Condition Age at Onset Recorded Date/T bailey brother Diabetes mellitus Unknown Not Specified Hypertension Unknown father Medical history unknown Unknown Advance Directives No Advanced Directives Records Found Advance Directive Response Recorded Date/ Time Advance Directives No November 04, 2018 10:35pm Advance Directive Response Recorded Date/ Time Advance Directives No November 04, 2018 9:35pm Reason for Referral Reason TLSO Diagnosis 1 Compression fracture of L1 vertebra, initial encounter (S32.010A) Referral Organization [facility] u[facility]urgery Referring Provider First Name Mart Referring Provider Last Name Carl Referring Provider Specialty Neurologica l Surgery [facility]. Referred Address [address] [place], [place],[address] Referred Provider Specialty DME Referral Priority Routine Chief Complaint and Reason for Visit Chief Complaint M54.41 M54.42 s32.010a DJD back and groin pain nausea kidney stones DJD DJD n20.0 Urethral Stone Urethral Stone Chief Complaint M54.41 M54.42 s32.010a DJD back and groin pain nausea kidney stones DJD DJD n20.0 Urethral Stone Urethral Stone Umbilical Hernia, Right Shoulder Mass Chief Complaint s32.010a DJD back and groin pain nausea kidney stones DJD DJD n20.0 Urethral Stone Urethral Stone Umbilical Hernia, Right Shoulder Mass Umbilical Hernia, Right Shoulder Mass Chief Complaint s32.010a DJD back and groin pain nausea kidney stones DJD DJD n20.0 Urethral Stone Urethral Stone Umbilical Hernia, Right Shoulder Mass Umbilical Hernia, Right Shoulder Mass Umbilical Hernia, Right Shoulder Mass Chief Complaint Umbilical Hernia, Ri ght Shoulder Mass Umbilical Hernia, Right Shoulder Mass Umbilical Hernia, Right Shoulder Mass dizzy confused Reason for Visit Altered mental statu s Chest pain Confusion Dizziness Headache Speaking difficulty Chief Complaint Umbilical Hernia, Ri ght Shoulder Mass Umbilical Hernia, Right Shoulder Mass Umbilical Hernia, Right Shoulder Mass dizzy confused DJD Reason for Visit Altered mental statu s Chest pain Confusion Dizziness Headache Speaking difficulty TIA (transient ischemic attack) Chief Complaint dizzy confused DJD Kidney stones Reason for Visit Altered mental statu s Chest pain Confusion Dizziness Headache Speaking difficulty TIA (transient ischemic attack) Chief Complaint dizzy confused DJD DJD Kidney stones Reason for Visit Altered mental statu s Chest pain Confusion Dizziness Headache Speaking difficulty TIA (transient ischemic attack) Chief Complaint sob n20.0 Reason for Visit Chest pain Diabetes mellitus, type II History of TIAs Hyperlipidemia Hypertension Chief Complaint Kidney Stone Syncope Reason for Visit Altered mental statu s Syncope TIA (transient ischemic attack) Chief Complaint Kidney Stone Syncope ams Reason for Visit Altered mental statu s Syncope TIA (transient ischemic attack) Chief Complaint Kidney Stone Kidney Stone Syncope ams Reason for Visit Altered mental statu s Syncope TIA (transient ischemic attack) Chief Complaint * ROD MATHIAS is being seen for mpx results/[facility]. * Patient is a 62-year-old gentleman here for follow-up following recent stress testing. He was seen in consultation in the hospital in January, ruled out for NV, had low CATHERINE risk score; has underlying comorbidities that include hypertension, hyperlipidemia and diabetes. Stress perfusion imaging was no rmal. He feels a lot better now with appropriate antianxiety therapy * Recommendations: Continue primary prevention, will follow-up as needed Additional Source Comments (unrecognized sect ion and content) No Status Records FoundNo Status Records FoundNo Status Records FoundNo Status Records FoundNo Status Records FoundNo Status Records FoundNo Status Records FoundNo Status Records Found INFORMATION SOURCE (unrecogn ized section and content) DATE CREATED AUTHOR 09/04/2021 [facility] DATE CREATED AUTHOR AUTHOR'S ORGANIZ ATION 11/02/2022 [facility] dical Specialist DATE CREATED AUTHOR AUTHOR'S ORGANIZ ATION 04/12/2023 [employer] DATE CREATED AUTHOR AUTHOR'S ORGANIZ ATION 04/27/2023 [facility] DATE CREATED AUTHOR AUTHOR'S ORGANIZ ATION 06/10/[address] [facility] Center DATE CREATED AUTHOR AUTHOR'S ORGANIZ ATION 08/02/2023 [facility] DATE CREATED AUTHOR AUTHOR'S ORGANIZ ATION 02/20/2024 [facility] DATE CREATED AUTHOR AUTHOR'S ORGANIZ ATION 03/06/2024 [facility] dical Specialists EPIC REASON FOR VISIT (unrecogniz ed section and content) 6 months po ACDFback painMRI L/S resultsREF BY DR AMOR FOR LEFT HIP OSTEOARTHRITISNo Informationincrease hip pain Care Team (unrecognized sect ion and content) Team Status: Inactive Member Role Status Eloy Hernandez MD Primary Care Provider Active Makr Anthony Heath MD Attending Provider Active Team Status: Inactive Member Role Status [facility] Primary Care Provider Active Terell Amor Jr, DO Attending Provider Active Team Status: Inactive Member Role Status [facility] Primary Care Provider Active César Arreaga DO Emergency Provider Active Team Status: Inactive Member Role Status [facility] Primary Care Provider Active Mart Henry MD Attending Provider Active Team Status: Active Member Role Status Eloy Hernandez MD Primary Care Provider Active Team Status: Inactive Member Role Status Eloy Hernandez MD Primary Care Provider Active Zheng Iraheta MD Attending Provider Active Team Status: Active Member Role Status Eloy Hernandez MD Primary Care Provider Active Spike Estrada , DO Emergency Provider Active Sayra Hutchinson , DO RES Active Shaila Bowen MD Admit Provider, Attending Provider Active Team Status: Inactive Member Role Status Eloy Hernandez MD Primary Care Provider Active Spike Estrada , DO Emergency Provider Active Sayra Hutchinson , DO RES Active Shaila Bowen MD Admit Provider, Attending Provider Active Mikey Rose , DO Other Provider Active Team Status: Inactive Member Role Status Eloy Hernandez MD Primary Care Provider Active Terell Amor Jr DO Attending Provider Active Team Status: Inactive Member Role Status Eloy Hernandez MD Primary Care Provider Active Deniz Lacey MD Emergency Provider Active Lilia Bowers MD Admit Provider, Attending Provide r Active Ingrid Evans RN Other Provider Active Lars Jefferson DO Other Provider Active Nilo Mcbride MD Other Provider Active Demarco Justin MD Other Provider Active Joann Hopson MD Other Provider Active Kenny Alexander MD Other Provider Active Crystal Lacey APRN Other Provider Active Sarita Johnson MD Other Provider Active Ira Do MD Other Provider Active Sandy Hamilton MD Other Provider Active Jeanne Martinez [facility] Other Provider Active Roxy Sandoval MD Other Provider Active Team Status: Inactive Member Role Status Eloy Arreaga , Emergency Provider Active Ganga Hernandez MD Primary Care Provider Active Shaila Bowen MD Admit Provider, Attending Provider Active Mikey Rose , Other Provider Active Team Status: Inactive Member Role Status Eloy Hernandez MD Primary Care Provider Active Jose Merino DO Emergency Provider Active FOR RECORDS PERTAINING TO PATIENTS WHO ARE OR HAVE BEEN ENROLLED IN A CHEMICAL DEPENDENCY/SUBSTANCEABUSE PROGRAM, SOME INFORMATION MAY BE OMITTED. This clinical summary was aggregated from multiple sources. Caution should be exercised in using it in the provision of clinical care. This summary normalizes information from multiple sources, and as a consequence, information in this document may materially change the coding, format and clinical context of patient data. In addition, data may be omitted in some cases. CLINICAL DECISIONS SHOULD BE BASED ON THE PRIMARY CLINICAL RECORDS. [facility] provides no warranty or guarantee of the accuracy or completeness of information in this document.
--- NOTE | 2024-06-05 09:13 | CM.NOTE ---
Medicare Outpatient Observation Notice discussed with pt, pt verbalizes understanding and signs paper. Original given to pt and copy placed on pt's chart.
--- NOTE | 2024-06-05 09:41 | ECG_ITS ---
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
[2024-06-05 11:23] LABS: Glucometer 100 mg/dL (74-106)
[2024-06-05] MEDS: FAMOTIDINE/PF 20 MG/2 ML VIAL IV (12:06)
--- NOTE | 2024-06-05 12:41 | PM.CN ---
Consult Note: HPI Data of Consult Patient: known to practice within the last 3 years Consult date: 06/05/24 Requesting Physician: Max Ordaz MD Primary Care Provider: GANGA HERNANDEZ Consult Narrative Reason for consult: Obstructing right ureteral calculus Narrative: This gentleman has a history of stones and he began experiencing acute right flank pain 4 days ago. It radiated across his right side down to his right sided testicle. Initially it was mild to moderate. It came and went for the next few days until yesterday it became severe. He also experienced gross hematuria. He did not experience any shaking chills or fevers at home. He had a renal ultrasound which showed right hydronephrosis. He then had a CT scan which showed a 1 cm right mid to proximal ureteral calculus with ipsilateral hydronephrosis. His white count was mildly elevated at 14,000. He was put on antibiotics. Overnight his white count has normalized. His creatinine is 1.9. I do not have a prior baseline but I presume this is elevated. Urology was consulted for the above reasons. Upon questioning him further he states that he has passed numerous stones over the years. He had left sided ESWL done with Dr. Heath in the past. He knew he had a right sided stone within the kidney but decided not to do anything about it. He denies having completed a full stone metabolic workup in the past. cc:: CC: Max Ordaz MD Review of Systems ROS Status of ROS 10 or more systems reviewed and unremarkable except as noted in history and below PFSH PFS Medical History Hyperlipidemia ?E78.5 - Hyperlipidemia, unspecified (ICD-10) Chronic kidney disease (CKD) ?N18.9 - Chronic kidney disease, unspecified (ICD-10) CVA (cerebral vascular accident) ?I63.9 - Cerebral infarction, unspecified (ICD-10) History of diabetes mellitus ?Z86.39 - Personal history of other endocrine, nutritional and metabolic disease (ICD-10) History of hypertension ?Z86.79 - Personal history of other diseases of the circulatory system (ICD-10) History of kidney stones ?Z87.442 - Personal history of urinary calculi (ICD-10) Surgical History H/O lithotripsy ?Z98.890 - Other specified postprocedural states (ICD-10) Family History Brother Family history of diabetes mellitus Social History Within the past year, how often did you have a drink containing alcohol: never Within the past year, how often did you have six or more drinks on one occasion: never Score interpretation: A score less than 4 is consistent with normal alcohol consumption. Smoking status: Former smoker Non-prescribed substance use: denies use Previous occupational history: disability Highest level of school completed/degree received: Bachelor's degree Are you now , , , , never or living with a partner: In a typical week, how many times do you talk on the telephone with family, friends, or neighbors: never How often do you get together with friends or relatives: never How often do you attend congregational or hinduism services: never Do you belong to any clubs or organizations such as congregational groups unions, [employer] or athletic groups, or school groups: no Total score: 0 Score interpretation: A score of less than or equal to 1 indicates the most socially isolated. Little interest or pleasure in doing things: not at all Feeling down, depressed, or hopeless: not at all Feel stressed/tense/nervous/anxious/difficulty sleeping: not at all Gender Identity: male Meds Home Medications and Allergies Home Medications ?Medication ?Instructions ?Recorded ?Confirmed ?Type alprazolam 0.5 mg tablet 0.5 mg PO TID PRN anxiety 06/04/24 06/04/24 History amlodipine 5 mg tablet 5 mg PO DAILY 06/04/24 06/04/24 History aspirin 81 mg tablet,delayed 81 mg PO DAILY 06/04/24 06/04/24 History release atorvastatin 40 mg tablet 40 mg PO .qhs 06/04/24 06/04/24 History canagliflozin 100 mg tablet 100 mg PO DAILY 06/04/24 06/04/24 History (Invokana) ergocalciferol (vitamin D2) 1,250 1,250 mcg PO QWEEK 06/04/24 06/04/24 History mcg (50,000 unit) capsule glimepiride 1 mg tablet 1 mg PO DAILY 06/04/24 06/04/24 History hydrocodone 5 mg-acetaminophen 325 2 tab PO Q4H PRN pain 06/04/24 06/04/24 History mg tablet losartan 100 mg tablet 100 mg PO DAILY 06/04/24 06/04/24 History omeprazole 20 mg capsule,delayed 20 mg PO DAILY 06/04/24 06/04/24 History release propranolol 80 mg capsule,24 80 mg PO Q24H 06/04/24 06/04/24 History hr,extended release semaglutide 14 mg tablet (Rybelsus) 14 mg PO DAILY 06/04/24 06/04/24 History Allergies Allergy/AdvReac Type Severity Reaction Status Date / Time No Known Drug Allergies Allergy Verified 06/04/24 14:12 Exam Narrative Exam Narrative: He is resting comfortably in bed. He is in no acute distress. Afebrile vital signs are stable. Abdomen is obese soft and tender in the right CVA and right lower quadrant. No masses are palpable. External genitalia are unremarkable. Constitutional Vital Signs, click to edit/add: Last Vital Signs Temp 98.2 F 06/05/24 07:36 Pulse 80 06/05/24 07:36 Resp 16 06/05/24 07:36 BP 137/81 06/05/24 07:36 Pulse Ox 96 06/05/24 10:05 O2 Del Method Room Air 06/05/24 10:05 Results Labs Labs: Short CBC 06/04/24 06/05/24 Range/Units 14:35 05:29 WBC 14.0 H 9.3 (4.0-11.0) 10^3/uL Hgb 14.9 13.4 L (14.0-18.0) g/dL Hct 45.5 43.1 (42.0-54.0) % Plt Count 256 165 (150-450) 10^3/uL BMP 06/04/24 06/05/24 14:35 05:29 Sodium 141 142 Potassium 4.1 4.4 Chloride 108 H 110 H Carbon Dioxide 16.9 L 20.3 L BUN 24.0 H 24.0 H Creatinine 1.91 H 1.96 H Glucose 153 H 110 H Calcium 9.1 8.4 L Liver Function 06/04/24 06/05/24 Range/Units 14:35 05:29 Total Bilirubin 0.6 0.3 (0.2-1.0) mg/dL AST 16 14 L (15-37) U/L ALT 31 23 (16-63) U/L Alkaline Phosphatase 112 92 (46-116) U/L Albumin 3.7 3.1 L (3.4-5.0) g/dL Urine 06/04/24 Range/Units 15:48 Urine Color Yellow (YELLOW) Urine Clarity Clear (CLEAR) Urine pH 5.5 (5.0-9.0) Ur Specific [place] 1.025 (1.005-1.025) Urine Protein Trace (NEG/TRACE) mg/dL Urine Glucose (UA) >=1000 A (NEGATIVE) mg/dL Assessment and Plan Assessment and Plan (1) Ureteral calculus, right: Assessment and Plan: This diabetic gentleman has a 1 cm right mid to proximal ureteral calculus causing pain, leukocytosis and possible WILD. He needs to get unobstructed. I am semiurgently adding him onto the OR schedule this afternoon. He has signed an informed consent for cystoscopy and right stent placement. After he cools down and decompresses for a week or 2 we will bring him back and he will undergo ureteroscopic laser lithotripsy and possible stent removal. Over 30 minutes of clinical time was spent talking with the ER doctor, the nursing staff, the patient and reviewing his films and chart. Thank you for letting me take part in his care. (2) Hydronephrosis concurrent with and due to calculi of kidney and ureter: Assessment and Plan: His hydronephrosis should resolve once he gets stented. (3) History of kidney stones: Assessment and Plan: He has passed many over the years.
--- NOTE | 2024-06-05 12:51 | PM.URSON ---
Urology Surgery Operative Note Operative Note Procedure Date: 06/05/24 Time Out Performed: yes Pre-op Diagnosis: Obstructing right ureteral calculus Post-op Diagnosis: same as pre-op Procedures performed: 1. Cystoscopy. 2. Right stent placement 6 Macanese variable length. Anesthesia: GETA Primary Surgeon: Norris Shi Complications: None Findings: Faintly visible large right proximal ureteral calculus. Specimens: None Drains: 6 Macanese variable length right ureteral stent Indications for Procedures: This gentleman has a 1 cm obstructing mid to proximal right ureteral calculus causing leukocytosis, pain and possible WILD. He is diabetic. He now presents for cystoscopy and right stent placement. He has signed an informed consent for these procedures after risks were explained. Detailed description of Procedure: The patient was brought to the operating room and placed on the operating room table in the supine position. SCDs were placed on the lower extremities and turned on and functioning during the entire case. Timeout was done by all parties in the room. We all agreed upon the patient's identification and the planned procedures for this patient. Genn. anesthesia was then administered. The patient was then repositioned into the modified dorsal lithotomy position. All pressure points were satisfactorily padded. Genitalia were sterilely prepped and draped in usual fashion. I started by passing a 22 Macanese Olympus cystoscope per urethra and into the bladder. The anterior urethra was normal. The prostatic urethra showed bilobar obstruction. Panendoscopy in the bladder revealed moderate trabeculation. No evidence of any tumors or stones were noted. While using fluoroscopy I could barely see a stone in the mid to proximal right ureter region. I then passed a Glidewire through the scope and cannulated the right ureter and was able to get the wire beyond the stone into the kidney. There was an E flux of cloudy urine coming down from the ureter into the bladder. I then slid a 6 Macanese variable length ureteral stent over the wire up the ureter and into the right kidney. The wire was removed and there were good curls in the kidney and in the bladder. There was a high-pressure E flux of cloudy urine now coming down through and around the stent into the bladder. The bladder was drained of its contents and the scope was then removed. The anesthetic was then reversed. [facility] and wheeled to PACU in stable condition.
--- NOTE | 2024-06-05 13:19 | PC.NURSE ---
upon transferring patient back to the med surg floor... patient states he needed to go to the bathroom so we are maksim n the bathroom.[id number]
--- NOTE | 2024-06-08 14:36 | CM.DCFOLLOWU ---
1st attempt 06/08/24
--- NOTE | 2024-06-09 14:48 | CM.DCFOLLOWU ---
Person spoke with: Vickey How are you feeling? Much better How is your pain? still having a little pain Did you understand your discharge instructions? Yes Do you have any questions about your discharge instructions? No Were you given any prescriptions at discharge? Yes Were you able to get your prescriptions filled? Yes Do you understand how to take your medications as ordered? Yes Do you have any questions about your follow up appointment and do you plan to keep your follow up appointment? Dr. Nascimento's office did not call me for appt. I called them and left a message this AM waiting call back Is there anything else that you would like to discuss? No Questions/Comments/Concerns/Other:
== END 2024-06-05 15:20 | disposition home or self-care (01) ==
LOC: ER 16:38 → MS 06-05 08:38
PROVIDERS: Urology; Admitting Provider Family Medicine; Emergency Provider Emergency Medicine; PCP Internal Medicine; Visit Provider Family Medicine
PROC: (CPT 52332; principal; 2024-06-05 12:00)
DX: N13.2 Hydronephrosis with renal and ureteral calculous obstruction (principal); E11.22 Type 2 diabetes mellitus with diabetic chronic kidney disease; N18.4 Chronic kidney disease, stage 4 (severe); D72.829 Elevated white blood cell count, unspecified; I12.9 Hypertensive chronic kidney disease with stage 1 through stage 4 chronic kidney disease, or unspecified chronic kidney disease; I69.351 Hemiplegia and hemiparesis following cerebral infarction affecting right dominant side; Z87.442 Personal history of urinary calculi; Z87.891 Personal history of nicotine dependence; E66.9 Obesity, unspecified; Z68.32 Body mass index [BMI] 32.0-32.9, adult
CPT/HCPCS: 52332; 36415; 74176; 76000; 76770; 80053; 81001; 82948; 83605; 85025; 87086; 87150; 87186; 93005; 94761; 96365; 96375; 96376; 99285; G0378; J0696; J1100; J1170; J1885; J2250; J2270; J2405; J2704; J3010

== ENCOUNTER 2024-06-18 04:23 | Emergency (ER) | payer MEDICARE, MEDICAID, SELFPAY ==
[2024-06-18 04:23] VITALS: BP 158/96; PULSE 69; TEMP 36.4; O2SAT 97; BMI 33.5
--- NOTE | 2024-06-18 05:21 | CT_ITS ---
[address] [address] Patient Name: ROD KAYE MRN: [facility]:[id number] date: 1960 Sex: M Assigned Patient Location: ER Current Patient Location: ED.MAIN Accession/Order Number: [id number] Exam Date: 06/18/2024 05:30 Report Date: 06/18/2024 06:42 At the request of: ZAIDA KING Procedure: CT abdomen pelvis wo con EXAM: CT abdomen pelvis wo con HISTORY: right flank pain/stent in place COMPARISON: CT abdomen/pelvis dated 06/05/2024. TECHNIQUE: Routine CT abdomen/pelvis without intravenous contrast. Dose reduction techniques were achieved by using automated exposure control and/or adjustment of mA and/or kV according to patient size and/or use of iterative reconstruction technique. FINDINGS: Right kidney: There is a right ureteral double-J stent extending from the right renal pelvis to the urinary bladder. Stable 9.1 x 9.0 cm calculus within the mid right ureter (L5 level). The pelvocaliectasis and hydroureter seen on the previous examination are no longer present. Stable nonobstructive calculi within the right renal pelvis measuring 2.9 mm, 3.4 mm and 1.5 mm. Stable 4.1 cm right renal cyst measuring 2 Hounsfield units. Stable mild cortical scarring along the contour of the right kidney. Mild stranding density within the right perinephric space, stable to slightly less prominent. Left kidney: Stable moderate cortical scarring along the contour of the left kidney. Stable 1 cm peripherally calcified nodule projecting from the anterolateral margin lower pole of the left kidney. Stable 2.2 mm nonobstructive left renal calculus. Urinary bladder: Ureteral stent however otherwise unremarkable. Lung bases: No acute findings. Solid organs: The liver, gallbladder, biliary tree, pancreas, spleen and bilateral adrenal glands are unremarkable. Bowel: Nonobstructive bowel gas pattern with a large amount of stool within the colon. The colon and appendix are unremarkable. The distal esophagus, stomach and small bowel are unremarkable. Inflammation: There is no free air, free fluid or abscess. Vasculature: Moderate atheromatous calcification abdominal aorta and iliac arteries. Mild atheromatous calcification distal descending thoracic aorta. Moderate atheromatous calcification splenic artery. Mild atheromatous calcification origin of both main renal arteries. The IVC is unremarkable. Lymphadenopathy: There are no pathologically enlarged lymph nodes. Pelvis: The prostate gland is mildly to moderately enlarged. There are a few pelvic phleboliths. Small amount of fat extending into the left inguinal canal. Musculoskeletal: Degenerative changes spine and bilateral hips. CT/CT abdomen pelvis wo con IMPRESSION: There is a right ureteral double-J stent extending from the right renal pelvis to the urinary bladder. Stable 9.1 x 9.0 cm calculus within the mid right ureter (L5 level). The pelvocaliectasis and hydroureter seen on the previous examination are no longer present. Stable nonobstructive calculi within the right renal pelvis measuring 2.9 mm, 3.4 mm and 1.5 mm. Stable 4.1 cm right renal cyst measuring 2 Hounsfield units. Stable 1 cm peripherally calcified nodule projecting from the anterolateral margin lower pole of the left kidney. Stable 2.2 mm nonobstructive left renal calculus. There is no free air, free fluid or abscess. Nonobstructive bowel gas pattern with a large amount of stool within the colon. Atherosclerotic disease as described in the body the report. The prostate gland is mildly to moderately enlarged. Correlate with the clinical exam and PSA level. Electronically authenticated by: DAMIEN CYO Date: 06/18/2024 06:42
--- NOTE | 2024-06-18 05:22 | ED_ITS ---
HPI - Abdominal Pain General Chief Complaint: Abdominal Pain Stated Complaint: flank pain Time Seen by Provider: 06/18/24 05:01 Source: patient Mode of arrival: ambulance Limitations: no limitations History of Present Illness HPI narrative: right ureteral stent placed 06/05. Now presents complaining of increased pain right CVA to his right testes. Also starting to have some pain on the left side. No fever, nausea, vomiting or hematuria lithotripsy reportedly scheduled for 06/25/24 Related Data Home Medications ?Medication ?Instructions ?Recorded ?Confirmed alprazolam 0.5 mg tablet 0.5 mg PO TID PRN anxiety 06/04/24 06/04/24 amlodipine 5 mg tablet 5 mg PO DAILY 06/04/24 06/04/24 aspirin 81 mg tablet,delayed 81 mg PO DAILY 06/04/24 06/04/24 release atorvastatin 40 mg tablet 40 mg PO .qhs 06/04/24 06/04/24 canagliflozin 100 mg tablet 100 mg PO DAILY 06/04/24 06/04/24 (Invokana) ergocalciferol (vitamin D2) 1,250 1,250 mcg PO QWEEK 06/04/24 06/04/24 mcg (50,000 unit) capsule glimepiride 1 mg tablet 1 mg PO DAILY 06/04/24 06/04/24 hydrocodone 5 mg-acetaminophen 325 2 tab PO Q4H PRN pain 06/04/24 06/04/24 mg tablet losartan 100 mg tablet 100 mg PO DAILY 06/04/24 06/04/24 omeprazole 20 mg capsule,delayed 20 mg PO DAILY 06/04/24 06/04/24 release propranolol 80 mg capsule,24 80 mg PO Q24H 06/04/24 06/04/24 hr,extended release semaglutide 14 mg tablet (Rybelsus) 14 mg PO DAILY 06/04/24 06/04/24 Previous Rx's ?Medication ?Instructions ?Recorded cephalexin 500 mg capsule 500 mg PO BID 7 days #14 caps 06/05/24 solifenacin 10 mg tablet (Vesicare) 10 mg PO DAILY #30 tabs 06/05/24 Allergies Allergy/AdvReac Type Severity Reaction Status Date / Time No Known Drug Allergies Allergy Verified 06/18/24 04:25 Review of Systems ROS Status of ROS 10 or more systems reviewed and unremark able except as noted in history and below PFSH PFSH Medical History Hyperlipidemia ?E78.5 - Hyperlipidemia, unspecified (ICD-10) Chronic kidney disease (CKD) ?N18.9 - Chronic kidney disease, unspecified (ICD-10) CVA (cerebral vascular accident) ?I63.9 - Cerebral infarction, unspecified (ICD-10) History of diabetes mellitus ?Z86.39 - Personal history of other endocrine, nutritional and metabolic disease (ICD-10) History of hypertension ?Z86.79 - Personal history of other diseases of the circulatory system (ICD- 10) History of kidney stones ?Z87.442 - Personal history of urinary calculi (ICD-10) Surgical History H/O lithotripsy ?Z98.890 - Other specified postprocedural states (ICD-10) Family History Brother Family history of diabetes mellitus Social History Within the past year, how often did you have a drink containing alcohol: never Within the past year, how often did you have six or more drinks on one occasion: never Score interpretation: A score less than 4 is consistent with normal alcohol consumption. Smoking status: Former smoker Non-prescribed substance use: denies use Previous occupational history: disability Highest level of school completed/degree received: Bachelor's degree Are you now , , , , never or living with a partner: In a typical week, how many times do you talk on the telephone with family, friends, or neighbors: never How often do you get together with friends or relatives: never How often do you attend samaritan or faith services: never Do you belong to any clubs or organizations such as samaritan groups unions, fraternal or athletic groups, or school groups: no Total score: 0 Score interpretation: A score of less than or equal to 1 indicates the most socially isolated. Little interest or pleasure in doing things: not at all Feeling down, depressed, or hopeless: not at all Feel stressed/tense/nervous/anxious/difficulty sleeping: not at all Gender Identity: male Exam Constitutional Vital Signs, click to edit/add: Last Vital Signs Temp 97.6 F 06/18/24 04:23 Pulse 69 06/18/24 04:23 Resp 18 06/18/24 04:23 BP 158/96 H 06/18/24 04:23 Pulse Ox 97 06/18/24 04:23 O2 Del Method Room Air 06/18/24 04:23 Common normals: no apparent distress, average body habitus, oriented x3, no limitations, healthy appearing, alert and well nourished [facility] Common normals: normocephalic and head/scalp atraumatic Eye Common normals: EOMs intact bilaterally and conjunctivae normal Respiratory Common normals: normal respiratory effort, no retractions, no use of accessory muscles and clear to auscultation bilaterally Cardio Common normals: regular rate, regular rhythm, S1 normal heart sound and S2 nor mal heart sound GI Common normals: Normal to inspection, nondistended, normoactive bowel sounds present, soft to palpation and non-tender Other: testes normal and nontender Extremity Common normals: normal to inspection and full ROM Neuro Common normals: oriented x3, moves all extremities and no focal motor deficits Psych Appearance: grossly normal Course Vital Signs Vital signs: Vital Signs Temperature 97.6 F 06/18/24 04:23 Pulse Rate 69 06/18/24 04:23 Respiratory Rate 18 06/18/24 04:23 Blood Pressure 158/96 H 06/18/24 04:23 Pulse Oximetry 97 06/18/24 04:23 Oxygen Delivery Method Room Air 06/18/24 04:23 Temperature 97.6 F 06/18/24 04:23 Pulse Rate 69 06/18/24 04:23 Respiratory Rate 18 06/18/24 04:23 Blood Pressure 158/96 H 06/18/24 04:23 Pulse Oximetry 97 06/18/24 04:23 Oxygen Delivery Method Room Air 06/18/24 04:23 MDM - Abdominal Pain MDM Narrative Medical decision making narrative: patient presents complaining or pain right CVA radiating into his right testes. more pain of the testes than his back. Had a stent placed 06/05/[address] Shi. No systemic symptoms. Exam of genitalia unremarkable. Patient medicated with Toradol and baclofen. Labs and CT ordered . CT with findings of stent in place and no hydronephrosis. Pyridium also added to see if it helps his pain. Care transferred to oncoming physician at change of shift Lab Data Labs: Lab Results 06/18/24 06/18/24 Range/Units 04:39 04:45 WBC 10.2 (4.0-11.0) 10^3/uL RBC 4.85 (4.70-6.10) 10^6/uL Hgb 15.0 (14.0-18.0) g/dL Hct 45.9 (42.0-54.0) % MCV 94.6 H (80.0-94.0) fL MCH 30.9 (25.9-34.0) pg MCHC 32.7 (29.9-35.2) g/dL RDW 14.5 (11.0-15.0) % Plt Count 256 (150-450) 10^3/uL MPV 10.0 (9.5-13.5) fL Neut % (Auto) 44.1 (43.0-75.0) % Lymph % (Auto) 44.4 (20.5-60.0) % [place] % (Auto) 9.1 (1.7-12.0) % Eos % (Auto) 1.7 (0.9-7.0) % Baso % (Auto) 0.4 (0.2-2.0) % Neut # (Auto) 4.5 (1.4-6.5) 10^3/uL Lymph # (Auto) 4.5 H (1.2-3.8) 10^3/uL [place] # (Auto) 0.9 H (0.3-0.8) 10^3/uL Eos # (Auto) 0.2 (0.0-0.7) 10^3/uL Baso # (Auto) 0.0 (0.0-0.1) 10^3/uL Abs Immat Gran (auto) 0.03 (0.00-0.03) 10^3/uL Imm/Tot Granulo (auto) 0.3 (0.0-0.5) % Sodium 141 (136-145) mmol/L Potassium 3.7 (3.5-5.1) mmol/L Chloride 105 (98-107) mmol/L Carbon Dioxide 24.6 (21.0-32.0) mmol/L Anion Gap 15.1 BUN 21.0 H (7.0-18.0) mg/dL Creatinine 1.83 H (0.70-1.30) mg/dL Est GFR ( Amer) 45 L (>=60) Est GFR (Non-Af Amer) 37 L (>=60) BUN/Creatinine Ratio 11.5 Glucose 145 H (74-106) mg/dL Calcium 8.8 (8.5-10.1) mg/dL Urine Color Lt. yellow (YELLOW) Urine Clarity Clear (CLEAR) Urine pH 5.5 (5.0-9.0) Ur Specific [place] 1.025 (1.005-1.025) Urine Protein Trace (NEG/TRACE) mg/dL Urine Glucose (UA) >=1000 A (NEGATIVE) mg/dL Urine Ketones Negative (NEGATIVE) mg/dL Urine Occult Blood Small A (NEGATIVE) Urine Nitrite Negative (NEGATIVE) Urine Bilirubin Negative (NEGATIVE) Urine Urobilinogen 1.0 (0.2-1.0) EU/dL Ur Leukocyte Esterase Negative (NEGATIVE) Urine RBC 10-20 A (0-2) #/HPF Urine WBC 5-10 A (NONE SEEN) #/HPF Ur Squamous Epith Cells Rare (NONE/RARE) #/LPF Urine Crystals None seen (None Seen) #/HPF Urine Bacteria Trace A (NONE SEEN) #/HPF Urine Casts None seen (NONE SEEN) #/LPF Urine Mucus None seen (NONE SEEN) Ur Culture Indicated? Yes Imaging Data Abdominal x-ray: Radiologist's impression: ITS Impressions Abdomen/Pelvis CT 06/18/24 05:21 IMPRESSION: There is a right ureteral double-J stent extending from the right renal pelvis to the urinary bladder. Stable 9.1 x 9.0 cm calculus within the mid right ureter (L5 level). The pelvocaliectasis and hydroureter seen on the previous examination are no longer present. Stable nonobstructive calculi within the right renal pelvis measuring 2.9 mm, 3.4 mm and 1.5 mm. Stable 4.1 cm right renal cyst measuring 2 Hounsfield units. Stable 1 cm peripherally calcified nodule projecting from the anterolateral margin lower pole of the left kidney. Stable 2.2 mm nonobstructive left renal calculus. There is no free air, free fluid or abscess. Nonobstructive bowel gas pattern with a large amount of stool within the colon. Atherosclerotic disease as described in the body the report. The prostate gland is mildly to moderately enlarged. Correlate with the clinical exam and PSA level. Electronically authenticated by: DAMIEN COY Date: 06/18/2024 06:42 Discharge Plan Discharge Patient Disposition: Still a Patient
[2024-06-18 05:27] LABS: Basophils Percent Auto 0.4 % (0.2-2.0); Eosinophils Absolute Auto 0.2 10^3/uL (0.0-0.7); Eosinophils Percent Auto 1.7 % (0.9-7.0); Hematocrit 45.9 % (42.0-54.0); Immature Granulocytes Abs Auto 0.03 10^3/uL (0.00-0.03); Immature Granulocytes Pct Auto 0.3 % (0.0-0.5); Lymphocytes Absolute Auto 4.5 10^3/uL (1.2-3.8); Lymphocytes Percent Auto 44.4 % (20.5-60.0); Mean Corpuscular HGB Conc 32.7 g/dL (29.9-35.2); Mean Corpuscular Hemoglobin 30.9 pg (25.9-34.0); Mean Corpuscular Volume 94.6 fL (80.0-94.0); Monocytes Absolute Auto 0.9 10^3/uL (0.3-0.8); Monocytes Percent Auto 9.1 % (1.7-12.0); Neutrophils Absolute Auto 4.5 10^3/uL (1.4-6.5); Neutrophils Percent Auto 44.1 % (43.0-75.0); Platelet Count 256 10^3/uL (150-450); Red Blood Count 4.85 10^6/uL (4.70-6.10); Red Cell Distribution Width 14.5 % (11.0-15.0); White Blood Count 10.2 10^3/uL (4.0-11.0)
[2024-06-18 05:28] LABS: Bilirubin Urine NEGATIVE (NEGATIVE); Blood Urine SMALL (NEGATIVE); Clarity Urine CLEAR (CLEAR); Color Urine LT. YELLOW (YELLOW); Glucose Urine UA >=1000 mg/dL (NEGATIVE); Ketones Urine NEGATIVE (NEGATIVE); Leukocyte Esterase Urine NEGATIVE (NEGATIVE); Nitrite Urine NEGATIVE (NEGATIVE); Protein Urine TRACE mg/dL (NEG/TRACE); Specific Gravity Urine 1.025 (1.005-1.025); Urine Microscopic Indicated YES; pH Urine 5.5 (5.0-9.0)
[2024-06-18 05:32] LABS: Anion Gap 15.1; BUN Creatinine Ratio 11.5; Calcium 8.8 mg/dL (8.5-10.1); Carbon Dioxide 24.6 mmol/L (21.0-32.0); Chloride 105 mmol/L (98-107); Estimated GFR (African America 45 (>=60); Estimated GFR (Non-African Ame 37 (>=60); Glucose 145 mg/dL (74-106); Potassium 3.7 mmol/L (3.5-5.1); Sodium 141 mmol/L (136-145)
[2024-06-18 05:35] LABS: Bacteria Urine TRACE #/HPF (NONE SEEN); Cast Seen? NONE SEEN #/LPF (NONE SEEN); Crystals Seen? None Seen #/HPF (None Seen); Mucus Urine NONE SEEN (NONE SEEN); Squamous Epithelial Cell Urine RARE #/LPF (NONE/RARE); Urine Culture Indicated YES
[2024-06-18] MEDS: ONDANSETRON PF 4 MG/2 ML VIAL IV (05:39)
[2024-06-18] MEDS: KETOROLAC TROMETHAMINE 30 MG/ML VIAL IVP (05:39)
--- OUTSIDE RECORDS SUMMARY | 2024-06-18 06:21 | XMS_ITS | CCD ---
Author Organization 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 Primary Care Physician [phone] [facility] Primary Care Provider MD Mart Henry Attending Provider [phone] DO Terell Amor Jr Attending Provider DO César Arreaga Emergency Provider MD Ganga Hernandez Primary Care Provider MD Mark Anthony Naylor Attending Provider [phone] MD Zheng Iraheta Attending Provider [facility] Primary Care Provider MD Mart Henry Attending Provider GarryBrandon Unavailable MD Ganga Hernandez Primary Care Provider [phone] MD Zheng Iraheta Attending Provider DO Spike Estrada Emergency Provider [phone] MD Shaila Bowen Admit Provider [phone] MD Shaila Bowen Attending Provider [phone] DO Mikey Rose Other Provider DO Terell Amor Jr Attending Provider MD Ganga Hernandez Primary Care Provider MD Mark Anthony Naylor Attending Provider DO Spike Estrada Emergency Provider Unavailab Ganga Ramirez Unavailable MD Ganga Hernandez Primary Care Provider MD Deniz Lacey Emergency Provider MD Lilia Bowers Admit Provider MD Lilia Bowers Attending Provider [phone] MARIA EUGENIA Evans Other Provider Unavailable DO Lars Galicia Other Provider MD Nilo Roach Other Provider MD Demarco Justinrick Other Provider MD Joann Hopson Other Provider MD Kenny Alexander Other Provider CYDNEY Balbuena Other Provider MD Sarita Johnson Other Provider MD Ira Do Najerodríguez Other Provider MD Sandy Hamilton Other Provider Juan [facility] Jeanne Guzman Other Provider MD Roxy Sandoval Other Provider MD Mark Anthony Naylor Attending Provider [phone] DEMARCO GALICIA Attending Unavailable Dr. Ganga Hernandez Primary Care Unavailab DEMARCO Sierra Attending Unavailable Dr. Ganga Hernandez Primary Care Unavailab MD Ganga Ramirez Primary Care Provider MD Mark Anthony Naylor Attending Provider [phone] DO César Arreaga Emergency Provider [phone] MD Shaila Bowen Admit Provider MD Shaila Bowen Attending Provider DO Mikey Rose Other Provider DO Jose Hernandez Emergency Provider [phone] Ganga Everett Primary Care Unavailab sanna Galicia, Dr. Demarco Bauer Attending [place] ilable David, Dr. Ganga Everett Primary Care Unavailab sanna Galicia, Dr. Demarco Bauer Attending [place] il[place] David, Dr. Ganga Everett Primary Care Unavailab sanna Galicia, Dr. Demarco Bauer Referring Unava ilable Cook, Mark Anthony Child Admitting Unavailable Cook, Mark Anthony Child Attending Unavailable Hill, Ganga Primary Care Unavailable Cook, Mark Anthony P Admitting Unavailable Cook, Mark Anthony P Attending Unavailable Hill, Ganga Primary Care Unavailable Wasnaseem, Shaila Attending Unavailable Hill, Ganga Primary Care Unavailable Mikey Rose Consulting Unavailable Wassovicente, Shaila Admitting Unavailable Cook, Mark Anthony P Admitting Unavailable Cook, Mark Anthony P Attending Unavailable Hill, Ganga Primary Care Unavailable Kecat, Jose Caputo Admitting Unavailable Keister, Jose Caputo Attending Unavailable Hill, Ganga Primary Care Unavailable HILL, GANGA Guzman Attending Unavailable HILL, GANGA Guzman Referring Unavailable HILL, GANGA Guzman Attending Unavailable HILL, GANGA Guzman Attending Unavailable HILL, GANGA Guzman Referring Unavailable COOK, Mark Anthony Child Attending Unavailable CARLTON, Norris Street Attending Unavailable VINCENT, Norris Street Attending Unavailable VINCENT, Norris Street Referring Unavailable Allergies Allergy Classification Reported Allergen(s) Allergy Type Date of Onset Reaction(s) Facility (1 source) No Known Medication Allergies; Translations: [No Known Medication Allergies] Propensity to adverse reactions (disorder) [facility] Repository Medications Current Medications Medication Drug Class(es) [...] 3 day(s), 12 tab(s), Refill(s) 0, N20.0, [facility] [id number], 182, cm, 05/22/22 11:13:00 EDT, Height/Length Dosing, [...] oral tablet (20 sources) Dihydropyridine Calcium Channel Ada Start: 02-22-2021 take 5 mg by mouth [...] extended release oral capsule (5 sources) beta-Adrenergic Ada Start: 07-13-2023 End: 07-24-2023 take 80 mg [...] oral tablet (20 sources) Angiotensin 2 Receptor Ada Start: 10-19-20 End: 06-07-20 take 100 mg [...] mg oral capsule (15 sources) alpha-Adrenerg ic Ada Start: 05-19-2022 End: 05-24-2022 take 1 capsule [...] source) Long-term current use of anticoagulant; 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 Patients having hematocrit values >55% require a special collection tube for coagulation studies. Please contact the laboratory at [phone] for redraw instructions. Alanine aminotransferase [En zymatic activity/volume] in Serum or PlasmaOrdered By: Jose Hernandez on 07-24-2023 ALT [Catalytic activity/Vol] 15 U/L 7-[address] [facility] Albumin [Mass/volume] in Ser um or Plasma by Bromocresol green (BCG) dye binding methoOrdered By: Jose Hernandez on 07-24-2023 Albumin BCG dye [Mass/Vol] 4.2 g/dL 3.5-5.[address] [facility] Alkaline phosphatase [Enzyma tic activity/volume] in Serum or PlasmaOrdered By: Jose Hernandez on 07-24-2023 ALP [Catalytic activity/Vol] 91 U/L 34-[address] [facility] Ammoniaon 07-24-2023 Ammonia (P) [Moles/Vol] 31 umol/L Normal 11-35 [facility] Comment on above: Result Comment: PERF ORMED BY: [place] [address] PATHOLOGIST SOFT WORK CIGAR MACHINE OPERATOR RADHA ACRR M.D. Performed By: #### L IPID, BMP, LDLD, MG, CBCNO #### [address] Ammonia [Moles/volume] in Pl asmaOrdered By: Jose Hernandez on 07-24-2023 Ammonia (P) [Moles/Vol] 31 umol/L 11-[address] [facility] Aspartate aminotransferase [ Enzymatic activity/volume] in Serum or PlasmaOrdered By: Jose Hernandez on 07-24-2023 AST [Catalytic activity/Vol] 12 U/L 13-[address] [facility] Basophils Auto (Bld) [#/Vol] Ordered By: Jose Hernandez on 07-24-2023 Basophils (Bld) [#/Vol] 0.0 10*3/uL 0.0-0.[address] [facility] Basophils/100 WBC Auto (Bld) Ordered By: Jose Hernandez on 07-24-2023 Basophils/100 WBC (Bld) 0.5 % . [facility] Bilirubin Test strip Ql (U)O rdered By: Jose Hernandez on 07-24-2023 Bilirubin Ql (U) Negative Negative [facility] Bilirubin.total [Mass/volume ] in Serum or PlasmaOrdered By: Jose Hernandez on 07-24-2023 Bilirubin [Mass/Vol] 0.5 mg/dL 0.3-1.0 [facility] CT head/brain wo conon 07-24 CT head/brain wo [place] [address] CT Scan Report Signed Patient: Rod Mathias MR#: [id number] : 1960 Acct:[id number] Age/Sex: 62 / M ADM Date: 07/24/23 Loc: ER Room: Type: PRE ER Attending Dr: Copies to: Jose Hernandez DO Ordering Provider: Jose Hernandez DO Date of Service: 07/24/23 CT/CT head/brain [...] Fischer Jr., D.O.07/24/2023 9:06 AM Dictation Location: [place] [address] Transcribed By: [facility] 07/24/23905 Dictated By: Gwyn Fischer Jr, DO 07/24/23901 Signed By: 07/24/23905 Normal [facility] Calcium [Mass/volume] in Ser um or PlasmaOrdered By: Jose Hernandez on 07-24-2023 Calcium [Mass/Vol] 9.2 mg/dL 8.6-10.3 [facility] Carbon dioxide, total [Moles /volume] in Serum or PlasmaOrdered By: Jose Hernandez on 07-24-2023 CO2 [Moles/Vol] 18.5 mmol/L 21.0-31.0 [facility] Chloride [Moles/volume] in S ayanna or PlasmaOrdered By: Jose Hernandez on 07-24-2023 Chloride [Moles/Vol] 113 mmol/L 98-107 [facility] Color Auto (U)Ordered By: Newton Hernandez on 07-24-2023 Color (U) Yellow Yellow [facility] Complete Blood Count Auto Di ffon 07-24-2023 Basophils (Bld) [#/Vol] 0.0 10*3/uL Normal 0.0-0.2 [facility] Comment on above: Result Comment: PERF ORMED BY: [place] [address] PATHOLOGIST SOFT WORK CIGAR MACHINE OPERATOR RADHA CARR M.D. Performed By: #### L IPID, BMP, LDLD, MG, CBCNO #### [facility] [address] [place] [address] [place] Basophils/100 WBC (Bld) 0.5 % Normal . [facility] Comment on above: Performed By: #### L IPID, BMP, LDLD, MG, CBCNO #### [facility] [address] [place] [address] [place] Eosinophils (Bld) [#/Vol] 0.1 10*3/uL Normal 0.0-0.45 [facility] Comment on above: Performed By: #### L IPID, BMP, LDLD, MG, CBCNO #### [address] Eosinophils/100 WBC (Bld) 1.2 % Normal . [facility] Comment on above: Performed By: #### L IPID, BMP, LDLD, MG, CBCNO #### [address] Erythrocyte distribution width (RBC) [Ratio] 13.7 % Normal 12.0-14.8 [facility] Comment on above: Performed By: #### L IPID, BMP, LDLD, MG, CBCNO #### [address] Hematocrit (Bld) [Volume fraction] 40.4 % Normal 38.8-50.0 [facility] Comment on above: Performed By: #### L IPID, BMP, LDLD, MG, CBCNO #### [address] Hemoglobin (Bld) [Mass/Vol] 13.6 g/dL Normal 13.0-17.0 [facility] Comment on above: Performed By: #### L IPID, BMP, LDLD, MG, CBCNO #### [address] Lymphocytes (Bld) [#/Vol] 3.2 10*3/uL Normal 1.00-4.8 [facility] Comment on above: Performed By: #### L IPID, BMP, LDLD, MG, CBCNO #### [address] Lymphocytes/100 WBC (Bld) 38.5 % Normal . [facility] Comment on above: Performed By: #### L IPID, BMP, LDLD, MG, CBCNO #### [address] MCH (RBC) [Entitic mass] 30.8 pg Normal 27.5-35.2 [facility] Comment on above: Performed By: #### L IPID, BMP, LDLD, MG, CBCNO #### [address] MCV (RBC) [Entitic vol] 91.6 fL Normal 83.5-101 [facility] Comment on above: Performed By: #### L IPID, BMP, LDLD, MG, CBCNO #### [address] Mean Corpuscular HGB Conc 33.7 g/dL Normal 32.5-35.6 [facility] Comment on above: Performed By: #### L IPID, BMP, LDLD, MG, CBCNO #### [address] Monocytes (Bld) [#/Vol] 0.8 10*3/uL Normal 0.0-0.8 [facility] Comment on above: Performed By: #### L IPID, BMP, LDLD, MG, CBCNO #### [address] Monocytes/100 WBC (Bld) 18.16 % Normal 0.00-20.00 [facility] Comment on above: Performed By: #### L IPID, BMP, LDLD, MG, CBCNO #### [address] Monocytes/100 WBC (Bld) 9.7 % Normal . [facility] Comment on above: Performed By: #### L IPID, BMP, LDLD, MG, CBCNO #### [address] Neutrophils (Bld) [#/Vol] 4.2 10*3/uL Normal 1.8-7.7 [facility] Comment on above: Performed By: #### L IPID, BMP, LDLD, MG, CBCNO #### [address] Neutrophils/100 WBC (Bld) 50.1 % Normal . [facility] Comment on above: Performed By: #### L IPID, BMP, LDLD, MG, CBCNO #### [address] NRBC% 0.0 /100{WBC} Normal 0-0.5 [facility] Comment on above: Performed By: #### L IPID, BMP, LDLD, MG, CBCNO #### [address] Platelet mean volume (Bld) [Entitic vol] 8.5 fL Normal 6.6-10.1 [facility] Comment on above: Performed By: #### L IPID, BMP, LDLD, MG, CBCNO #### [address] Platelets (Bld) [#/Vol] 222 10*3/uL Normal 150-450 [facility] Comment on above: Performed By: #### L IPID, BMP, LDLD, MG, CBCNO #### [address] RBC (Bld) [#/Vol] 4.41 10*6/uL Normal 3.90-5.60 [facility] Comment on above: Performed By: #### L IPID, BMP, LDLD, MG, CBCNO #### [address] WBC (Bld) [#/Vol] 8.4 10*3/uL Normal 4.1-10.5 [facility] Comment on above: Performed By: #### L IPID, BMP, LDLD, MG, CBCNO #### [address] Comprehensive Metabolic Pane jerrod 07-24-2023 Albumin [Mass/Vol] 4.2 g/dL Normal 3.5-5.7 [facility] Comment on above: Performed By: #### L IPID, BMP, LDLD, MG, CBCNO #### [address] Albumin/Globulin [Mass ratio] 1.5 {ratio} Normal [facility] Comment on above: Performed By: #### L IPID, BMP, LDLD, MG, CBCNO #### [address] ALP [Catalytic activity/Vol] 91 U/L Normal 34-104 [facility] Comment on above: Performed By: #### L IPID, BMP, LDLD, MG, CBCNO #### [address] ALT [Catalytic activity/Vol] 15 U/L Normal 7-52 [facility] Comment on above: Performed By: #### L IPID, BMP, LDLD, MG, CBCNO #### [address] Anion gap [Moles/Vol] 11.5 mmol/L Normal 6.0-15.0 [facility] Comment on above: Performed By: #### L IPID, BMP, LDLD, MG, CBCNO #### [address] AST [Catalytic activity/Vol] 12 U/L Low 13-39 [facility] Comment on above: Performed By: #### L IPID, BMP, LDLD, MG, CBCNO #### [address] Bilirubin [Mass/Vol] 0.5 mg/dL Normal 0.3-1.0 [facility] Comment on above: Performed By: #### L IPID, BMP, LDLD, MG, CBCNO #### [address] Calcium [Mass/Vol] 9.2 mg/dL Normal 8.6-10.3 [facility] Comment on above: Performed By: #### L IPID, BMP, LDLD, MG, CBCNO #### [place] [address] [place] Chloride [Moles/Vol] 113 mmol/L High 98-107 [facility] Comment on above: Performed By: #### L IPID, BMP, LDLD, MG, CBCNO #### [place] [address] [place] CO2 [Moles/Vol] 18.5 mmol/L Low 21.0-31.0 [facility] Comment on above: Performed By: #### L IPID, BMP, LDLD, MG, CBCNO #### [address] Creatinine [Mass/Vol] 1.46 mg/dL High 0.70-1.30 [facility] Comment on above: Performed By: #### L IPID, BMP, LDLD, MG, CBCNO #### [place] [address] [place] Creatinine Clr Calc Pharmacy 62.55 Normal [facility] Comment on above: Performed By: #### L IPID, BMP, LDLD, MG, CBCNO #### [place] [address] [place] GFR/1.73 sq M.predicted MDRD (S/P/Bld) [Vol rate/Area] 53.370 mL/min/{1.73_m2} Normal [facility] Comment on above: Performed By: #### L IPID, BMP, LDLD, MG, CBCNO #### [address] Globulin (S) [Mass/Vol] 2.8 g/dL Normal [facility] Comment on above: Performed By: #### L IPID, BMP, LDLD, MG, CBCNO #### [address] Glucose [Mass/Vol] 182 mg/dL High 70-100 [facility] Comment on above: Result Comment: [place] Glucose Reference Range is dependent on time and content of last meal. Glucose of more than 200 mg/dL in a nonstressed, ambulatory subject supports the diagnosis of Diabetes Mellitus. ADA recommended reference range Performed By: #### L IPID, BMP, LDLD, MG, CBCNO #### [address] Potassium [Moles/Vol] 4.0 mmol/L Normal 3.5-5.1 [facility] Comment on above: Performed By: #### L IPID, BMP, LDLD, MG, CBCNO #### [facility] [address] [place] [address] [place] Protein [Mass/Vol] 7.0 g/dL Normal 6.4-8.9 [facility] Comment on above: Performed By: #### L IPID, BMP, LDLD, MG, CBCNO #### [place] [address] [place] Sodium [Moles/Vol] 139 mmol/L Normal 136-145 [facility] Comment on above: Performed By: #### L IPID, BMP, LDLD, MG, CBCNO #### [address] Urea nitrogen [Mass/Vol] 24 mg/dL Normal 7-25 [facility] Comment on above: Performed By: #### L IPID, BMP, LDLD, MG, CBCNO #### [place] [address] [place] Creatine Kinaseon 07-24-2023 CK [Catalytic activity/Vol] 73 U/L Normal 30-223 [facility] Comment on above: Performed By: #### L IPID, BMP, LDLD, MG, CBCNO #### [address] Creatine kinase [Enzymatic a ctivity/volume] in Serum or PlasmaOrdered By: Jose Hernandez on 07-24-2023 CK [Catalytic activity/Vol] 73 U/L 30-[address] [facility] Creatinine [Mass/volume] in Serum or PlasmaOrdered By: Jose Hernandez on 07-24-2023 Creatinine [Mass/Vol] 1.46 mg/dL 0.70-1.30 [facility] ECG 12 lead ECGon 07-24-2023 ECG 12 lead ECG [facility] [place] [address] Electrocardiograph Report Signed Patient: Rod Mathias MR#: [id number] : 1960 Acct:[id number] Age/Sex: 62 / M ADM Date: 07/24/23 Loc: ER Room: Type: DEP ER Attending Dr: Ordering Provider: Jose Hernandez DO Date of Service: 07/24/2302/10/818 ECG/ECG 12 [...] ms Normal sinus rhythm Confirmed by Jose HERNANDEZ DO ([id number]) on 07/24/2023 1:16:48 PM Referred By: Electronically Signed By:Jose HERNANDEZ DO Transcribed By: MUS Signed By Jose Hernandez DO 1 1316 Normal [facility] Eosinophils Auto (Bld) [#/Vo l]Ordered By: Jose Hernandez on 07-24-2023 Eosinophils (Bld) [#/Vol] 0.1 10*3/uL 0.0-0.[address] [facility] Eosinophils/100 WBC Auto (Bl d)Ordered By: Jose Hernandez on 07-24-2023 Eosinophils/100 WBC (Bld) 1.2 % . [facility] Erythrocyte distribution wid th Auto (RBC) [Ratio]Ordered By: Jose Hernandez on 07-24-2023 Erythrocyte distribution width (RBC) [Ratio] 13.7 % 12.0-14.[address] [facility] Ethanol [Mass/volume] in Ser um or PlasmaOrdered By: Jose Hernandez on 07-24-2023 Ethanol [Mass/Vol] mg/dL [facility] Ethanol [Mass/Vol] TNP [facility] Comment on above: Test not performed Ethyl Alcohol Profileon Ethanol [Mass/Vol] mg/dL Normal [facility] Comment on above: Performed By: #### L IPID, BMP, LDLD, MG, CBCNO #### [address] Percent Ethanol Not performed Normal [facility] Comment on above: Result Comment: PERF ORMED BY: [place] [address] PATHOLOGIST SOFT WORK CIGAR MACHINE OPERATOR RADHA CARR M.D. Performed By: #### L IPID, BMP, LDLD, MG, CBCNO #### [address] Globulin Calc (S) [Mass/Vol] Ordered By: Jose Hernandez on 07-24-2023 Globulin (S) [Mass/Vol] 2.8 g/dL [facility] Glucose Glucometer (BldC) [M ass/Vol]Ordered By: Jose Hernandez on 07-24-2023 Glucose [Mass/Vol] 220 mg/dL [facility] Comment on above: Random Glucose Refer ence Range is dependent on time and content of last meal. Glucose of more than 200 mg/dL in a nonstressed, ambulatory subject supports the diagnosis of Diabetes Mellitus. Glucose Poct Glucometerson 1 Commemt1 Glu2: Cleaned Meter Normal [facility] Comment on above: Result Comment: PERF ORMED BY: [place] [address] PATHOLOGIST SOFT WORK CIGAR MACHINE OPERATOR RADHA CARR M.D. Performed By: #### G LULS #### Point of Care testing , Glucose [Mass/Vol] 220 mg/dL Normal [facility] Comment on above: Result Comment: [place] om Glucose Reference Range is dependent on time and content of last meal. Glucose of more than 200 mg/dL in a nonstressed, ambulatory subject supports the diagnosis of Diabetes Mellitus. Performed By: #### G LULS #### Point of Care testing , Glucose [Mass/volume] in Ser um or PlasmaOrdered By: Jose Hernandez on 07-24-2023 Glucose [Mass/Vol] 182 mg/dL 70-100 [facility] Comment on above: ADA recommended refe rence rangeRandom Glucose Reference Range is dependent on time and content of last meal. Glucose of more than 200 mg/dL in a nonstressed, ambulatory subject supports the diagnosis of Diabetes Mellitus. Hematocrit Auto (Bld) [Volum e fraction]Ordered By: Jose Hernandez on 07-24-2023 Hematocrit (Bld) [Volume fraction] 40.4 % 38.8-50.[address] [facility] Hemoglobin [Mass/volume] in BloodOrdered By: Jose Hernandez on 07-24-2023 Hemoglobin (Bld) [Mass/Vol] 13.6 g/dL 13.0-17.[address] [facility] INR in Platelet poor plasma by Coagulation assayOrdered By: Jose Hernandez on 07-24-2023 INR Coag (PPP) [Relative time] 0.9 {INR} [facility] Comment on above: INR Therapeutic Rang [...] Auto test strip (U) [Mass/Vol]Ordered By: Jose Hernandez on 07-24-2023 Ketones (U) [Mass/Vol] Negative Negative Fi [facility] - Chemistry and C hemistry - challengeOrdered By: Jose Hernandez on 07-24-2023 CO2 [Moles/Vol] 23.4 mmol/L 24.0-29.0 [facility] HCO3 (Bld) [Moles/Vol] 21.9 mmol/L 23.0-29.0 [facility] Leukocytes [#/volume] correc desean for nucleated erythrocytes in Blood by Automated counOrdered By: Jose Hernandez on 07-24-2023 WBC corrected for nucl RBC Auto (Bld) [#/Vol] 8.4 10*3/uL 4.1-10.[address] [facility] Lymphocytes Auto (Bld) [#/Vo l]Ordered By: Jose Hernandez on 07-24-2023 Lymphocytes (Bld) [#/Vol] 3.2 10*3/uL 1.00-4.[address] [facility] Lymphocytes/100 WBC Auto (Bl d)Ordered By: Jose Hernandez on 07-24-2023 Lymphocytes/100 WBC (Bld) 38.5 % . [facility] MCH Auto (RBC) [Entitic mass ]Ordered By: Jose Hernandez on 07-24-2023 MCH (RBC) [Entitic mass] 30.8 pg 27.5-35.[address] [facility] MCHC Auto (RBC) [Mass/Vol]Or dered By: Jose Hernandez on 07-24-2023 MCHC (RBC) [Mass/Vol] 33.7 g/dL 32.5-35.6 [facility] MCV Auto (RBC) [Entitic vol] Ordered By: Jose Hernandez on 07-24-2023 MCV (RBC) [Entitic vol] 91.6 fL 83.5-[address] [facility] Monocyte distribution width [Entitic volume] in Blood by AutomatedOrdered By: Jose Hernandez on 07-24-2023 Monocyte distribution width Auto (Bld) [Entitic vol] 18.16 % 0.00-20.[address] [facility] Monocytes Auto (Bld) [#/Vol] Ordered By: Jose Hernandez on 07-24-2023 Monocytes (Bld) [#/Vol] 0.8 10*3/uL 0.0-0.[address] [facility] Monocytes/100 WBC Auto (Bld) Ordered By: Jose Hernandez on 07-24-2023 Monocytes/100 WBC (Bld) 9.7 % . [facility] Neutrophils Auto (Bld) [#/Vo l]Ordered By: Jose Hernandez on 07-24-2023 Neutrophils (Bld) [#/Vol] 4.2 10*3/uL 1.8-7.[address] [facility] Neutrophils/100 WBC Auto (Bl d)Ordered By: Jose Hernandez on 07-24-2023 Neutrophils/100 WBC (Bld) 50.1 % . [facility] Nitrite Test strip Ql (U)Ord ered By: Jose Hernandez on 07-24-2023 Nitrite Ql (U) Negative Negative [facility] No Panel InformationOrdered By: Jose Hernandez on 07-24-2023 Blood Gas Critical Value See comment [facility] Comment on above: Critical Value mcdowell d on: 07/24/2023 at 10:43 Blood Gas Sample Site Venous [facility] FiO2 na % [facility] Venous Blood Base Excess -5.4 mmol/L -3.0-3.[address] [facility] Venous Blood Oxygen Saturation 35.3 % 73.0-76.[address] [facility] Venous Blood Partial Pressure CO2 48.8 mm[Hg] 38.0-50.[address] [facility] Venous Blood Partial Pressure O2 22.5 mm[Hg] 35.0-45.[address] [facility] Venous Blood pH 7.27 7.32-7.[address] [facility] Estimated GFR (CKD-EPI) 53.370 mL/Min [facility] Creatinine Clearance (Chem 62.[address] [facility] Bedside Glucose Comment Glu2: cleaned meter [facility] Nucleated erythrocytes [Pres ence] in Blood by Automated countOrdered By: Jose Hernandez on 07-24-2023 Nucleated RBC Auto Ql (Bld) 0.0 /100{WBC} 0-0.[address] [facility] Partial Thromboplastin Timeo n 07-24-2023 aPTT Coag (Bld) [Time] 28.7 s Normal 25.1-36.5 [facility] Comment on above: Result Comment: A he matocrit value greater than 55% may lead to inaccurate results in coagulation testing. Patients having hematocrit values >55% require a special collection tube for coagulation studies. Please contact the laboratory at [phone] for redraw instructions. PERFORMED BY: [place] [address] PATHOLOGIST SOFT WORK CIGAR MACHINE OPERATOR RADHA CARR M.D. Performed By: #### L IPID, BMP, LDLD, MG, CBCNO #### [address] Platelet mean volume Auto (B ld) [Entitic vol]Ordered By: Jose Hernandez on 07-24-2023 Platelet mean volume (Bld) [Entitic vol] 8.5 fL 6.6-10.[address] [facility] Platelets Auto (Bld) [#/Vol] Ordered By: Jose Hernandez on 07-24-2023 Platelets (Bld) [#/Vol] 222 10*3/uL 150-[address] [facility] Potassium [Moles/volume] in Serum or PlasmaOrdered By: Jose Hernandez on 07-24-2023 Potassium [Moles/Vol] 4.0 mmol/L 3.5-5.1 [facility] Prolactinon 10-04-2023 Prolactin 5.59 ng/mL Normal 2.64-13.13 [facility] Comment on above: Result Comment: PERF ORMED BY: [facility] [address] [place] [address] PATHOLOGIST SOFT WORK CIGAR MACHINE OPERATOR RADHA CARR M.D. Performed By: #### L IPID, BMP, LDLD, MG, CBCNO #### [facility] [address] [place] [id number] [facility] Prolactin [Mass/volume] in S ayanna or PlasmaOrdered By: Jose Hernandez on 07-24-2023 Prolactin [Mass/Vol] 5.59 ng/mL 2.64-13.13 [facility] Protein Auto test strip (U) [Mass/Vol]Ordered By: Jose Hernandez on 07-24-2023 Protein (U) [Mass/Vol] Negative Negative Fi [facility] Protein [Mass/volume] in Ser um or PlasmaOrdered By: Jose Hernandez on 07-24-2023 Protein [Mass/Vol] 7.0 g/dL 6.4-8.9 [facility] Prothrombin Time INRon 07-24 INR Coag (PPP) [Relative time] 0.9 {INR} Normal [facility] Comment on above: Result Comment: [...] L IPID, BMP, LDLD, MG, CBCNO #### [facility] [address] [place] [id number] [facility] PT Coag (PPP) [Time] 11.3 s Normal 9.0-12.9 [facility] Comment on above: Result Comment: A he matocrit value greater than 55% may lead to inaccurate results in coagulation testing. Patients having hematocrit values >55% require a special collection tube for coagulation studies. Please contact the laboratory at [phone] for redraw instructions. Performed By: #### L IPID, BMP, LDLD, MG, CBCNO #### [place] [id number] [facility] Prothrombin time (PT)Ordered By: Jose Hernandez on 07-24-2023 PT Coag (PPP) [Time] 11.3 s 9.0-12.9 [facility] Comment on above: A hematocrit value g reater than 55% may lead to inaccurate results in coagulation testing. Patients having hematocrit values >55% require a special collection tube for coagulation studies. Please contact the laboratory at [phone] for redraw instructions. RBC Auto (Bld) [#/Vol]Ordere d By: Jose Hernandez on 07-24-2023 RBC (Bld) [#/Vol] 4.41 10*6/uL 3.90-5.60 [facility] Serum or plasma albumin/glob ulin mass ratioOrdered By: Jose Hernandez on 07-24-2023 Albumin/Globulin [Mass ratio] 1.5 {ratio} [facility] Serum or plasma anion gap de terminationOrdered By: Jose Hernandez on 07-24-2023 Anion gap [Moles/Vol] 11.5 mmol/L 6.0-15.0 [facility] Sodium [Moles/volume] in Ser um or PlasmaOrdered By: Jose Hernandez on 07-24-2023 Sodium [Moles/Vol] 139 mmol/L 136-145 [facility] Specific gravity Auto test s trip (U) [Rel density]Ordered By: Jose Hernandez on 07-24-2023 Specific gravity (U) [Rel density] 1.025 1.001-1.[address] [facility] Thyroid Stimulating Hormoneo n 07-24-2023 TSH Qn 1.75 m[IU]/L Normal 0.45-5.33 [facility] Comment on above: Result Comment: PERF ORMED BY: [facility] [address] [place] [address] PATHOLOGIST SOFT WORK CIGAR MACHINE OPERATOR RADHA CARR M.D. Performed By: #### L IPID, BMP, LDLD, MG, CBCNO #### [facility] [address] Thyrotropin [Units/volume] i n Serum or PlasmaOrdered By: Jose Hernandez on 07-24-2023 TSH Qn 1.75 m[IU]/L 0.45-5.[address] [facility] Troponin I High Sensitivityo n 07-24-2023 Troponin I High Sensitivity 4.0 pg/mL Normal 0.0-20.0 [facility] Comment on above: Result Comment: PERF ORMED BY: [place] [address] PATHOLOGIST SOFT WORK CIGAR MACHINE OPERATOR RADHA CARR M.D. Performed By: #### L IPID, BMP, LDLD, MG, CBCNO #### [address] Troponin I.cardiac [Mass/vol ume] in Serum or Plasma by Detection limit <= 0.01 ng/Ordered By: Jose Hernandez on 07-24-2023 Troponin I.cardiac DL <= 0.01 ng/mL [Mass/Vol] 4.0 pg/mL 0.0-20.[address] [facility] Urea nitrogen [Mass/volume] in Serum or PlasmaOrdered By: Jose Hernandez on 07-24-2023 Urea nitrogen [Mass/Vol] 24 mg/dL 05-[address] [facility] Urinalysison 07-24-2023 Appearance (U) Clear Normal Clear [facility] Comment on above: Order Comment: Name Collection Type:: Clean-Voided Midstream Performed By: #### U A #### [address] Bilirubin,Urine Negative Normal Negative [facility] Comment on above: Order Comment: Name Collection Type:: Clean-Voided Midstream Performed By: #### U A #### [address] Color (U) Yellow Normal Yellow [facility] Comment on above: Order Comment: Name Collection Type:: Clean-Voided Midstream Performed By: #### U A #### [place] [address] [place] Glucose Ql (U) >=1000 High Normal [facility] Comment on above: Order Comment: Name Collection Type:: Clean-Voided Midstream Performed By: #### U A #### [address] Ketones Ql (U) Negative Normal Negative [facility] Comment on above: Order Comment: Name Collection Type:: Clean-Voided Midstream Performed By: #### U A #### [address] Leukocyte esterase Test strip Ql (U) Negative Normal Negative [facility] Comment on above: Order Comment: Name Collection Type:: Clean-Voided Midstream Performed By: #### U A #### [address] Nitrite,Urine Negative Normal Negative [facility] Comment on above: Order Comment: Name Collection Type:: Clean-Voided Midstream Performed By: #### U A #### [address] Occult Blood,Urine Negative Normal Negative [facility] Comment on above: Order Comment: Name Collection Type:: Clean-Voided Midstream Result Comment: PERF ORMED BY: [place] [address] PATHOLOGIST SOFT WORK CIGAR MACHINE OPERATOR RADHA CARR M.D. Performed By: #### U A #### [address] pH (U) 5.5 [pH] Normal 5.0-9.0 [facility] Comment on above: Order Comment: Name Collection Type:: Clean-Voided Midstream Performed By: #### U A #### [address] Protein,Urine Negative Normal Negative [facility] Comment on above: Order Comment: Name Collection Type:: Clean-Voided Midstream Performed By: #### U A #### [address] [place],Urine 1.025 Normal 1.001-1.030 [facility] Comment on above: Order Comment: Name Collection Type:: Clean-Voided Midstream Performed By: #### U A #### [facility] [address] [place] [address] Urobilinogen,Urine Normal Normal Normal [facility] Comment on above: Order Comment: Name Collection Type:: Clean-Voided Midstream Performed By: #### U A #### [facility] [address] [place] [address] Urine clarity by refractomet ry automatedOrdered By: Jose Hernandez on 07-24-2023 Clarity Refractometry automated (U) Clear Clear [facility] Urine glucose measurement by automated test strip (mass/volume)Ordered By: Jose Hernandez on 07-24-2023 Glucose Auto test strip (U) [Mass/Vol] >=1000 mg/dL Normal [facility] Urine hemoglobin detection b y automated test stripOrdered By: Jose Hernandez on 07-24-2023 Hemoglobin Auto test strip Ql (U) Negative Negative [facility] Urine leukocyte esterase det ection by automated test stripOrdered By: Jose Hernandez on 07-24-2023 Leukocyte esterase Auto test strip Ql (U) Negative Negative [facility] Urobilinogen Auto test strip (U) [Mass/Vol]Ordered By: Jose Hernandez on 07-24-2023 Urobilinogen (U) [Mass/Vol] Normal mg/dL Normal [facility] Venous Blood Gason CO2 [Moles/Vol] 23.4 mmol/L Low 24.0-29.0 [facility] Comment on above: Performed By: #### U A #### [facility] [address] [place] [address] HCO3 (Bld) [Moles/Vol] 21.9 mmol/L Low 23.0-29.0 [facility] Comment on above: Performed By: #### U A #### [address] Respiratory Critical Normal [facility] Comment on above: Result Comment: Crit ical Value called on: 07/24/2023 at 10:43 PERFORMED BY: [place] [address] PATHOLOGIST SOFT WORK CIGAR MACHINE OPERATOR RADHA CARR M.D. Performed By: #### U A #### [address] VBG Base Excess -5.4 mmol/L Low -3.0-3.0 [facility] Comment on above: Performed By: #### U A #### [address] VBG Draw Site Venous Normal [facility] Comment on above: Performed By: #### U A #### [address] VBG Frac Inspired O2 Normal [facility] Comment on above: Performed By: #### U A #### [address] VBG Oxygen Saturation 35.3 % Off scale low 73.0-76.0 [facility] Comment on above: Performed By: #### U A #### [address] VBG PCO2 48.8 mm[Hg] Normal 38.0-50.0 [facility] Comment on above: Performed By: #### U A #### [address] VBG PH Venous PH 7.27 Low 7.32-7.43 [facility] Comment on above: Performed By: #### U A #### [address] VBG PO2 22.5 mm[Hg] Low 35.0-45.0 [facility] Comment on above: Performed By: #### U A #### [address] WBC Auto (Bld) [#/Vol]Ordere d By: Jose Hernandez on 07-24-2023 WBC (Bld) [#/Vol] 8.4 10*3/uL 4.1-10.5 [facility] XR chest 2V*on 07-24-2023 XR chest 2V* [facility] [place] [address] [place] [id number] XRay Report Signed Patient: Rod Mathias MR#: [id number] : 1960 Acct:[id number] Age/Sex: 62 / M ADM Date: 07/24/23 Loc: ER Room: Type: PRE ER Attending Dr: Copies to: Jose Hernandez DO Ordering Provider: Jose Hernandez DO Date of Service: 07/24/23 XR/XR chest 2V*: Altered Mental Status Chest 2 views CLINICAL HISTORY: Headache and confusion unsteadiness COMPARISON: Chest 07/11/2023 FINDINGS: Heart normal size. Lungs are clear. No free air. XR/XR chest 2V* IMPRESSION: NO ACUTE CARDIOPULMONARY ABNORMALITY. Impression dictated by: Gwyn Fischer Jr., D.O.07/24/2023 9:07 AM Dictation Location: [place] [address] Transcribed By: [facility] 07/24/23906 Dictated By: Gwyn Fischer Jr, DO 07/24/23906 Signed By: 07/24/23 09 Normal [facility] pH Auto test strip (U)Ordere d By: Jose Hernandez on 07-24-2023 pH (U) 5.5 [pH] 5.0-9.[address] [facility] Basic Metabolic Panelon 09-2 Anion gap [Moles/Vol] 11.8 mmol/L Normal 6.0-15.0 [facility] e [facility] Comment on above: Performed By: #### L IPID, BMP, LDLD, MG, CBCNO #### [facility] [address] [place] [address] [place] Calcium [Mass/Vol] 8.8 mg/dL Normal 8.6-10.3 [facility] Comment on above: Performed By: #### L IPID, BMP, LDLD, MG, CBCNO #### [facility] [address] [place] [id number] [place] Chloride [Moles/Vol] 111 mmol/L High 98-107 [facility] Comment on above: Performed By: #### L IPID, BMP, LDLD, MG, CBCNO #### [address] CO2 [Moles/Vol] 21.3 mmol/L Normal 21.0-31.0 [facility] Comment on above: Performed By: #### L IPID, BMP, LDLD, MG, CBCNO #### [address] Creatinine [Mass/Vol] 1.61 mg/dL High 0.70-1.30 [facility] Comment on above: Performed By: #### L IPID, BMP, LDLD, MG, CBCNO #### [address] Creatinine Clr Calc Pharmacy 57.55 Normal [facility] Comment on above: Result Comment: PERF ORMED BY: [place] [address] PATHOLOGIST SOFT WORK CIGAR MACHINE OPERATOR RADHA CARR M.D. Performed By: #### L IPID, BMP, LDLD, MG, CBCNO #### [address] GFR/1.73 sq M.predicted MDRD (S/P/Bld) [Vol rate/Area] 47.459 mL/min/{1.73_m2} Normal [facility] Comment on above: Performed By: #### L IPID, BMP, LDLD, MG, CBCNO #### [address] Glucose [Mass/Vol] 146 mg/dL High 70-100 [facility] Comment on above: Result Comment: [place] Glucose Reference Range is dependent on time and content of last meal. Glucose of more than 200 mg/dL in a nonstressed, ambulatory subject supports the diagnosis of Diabetes Mellitus. ADA recommended reference range Performed By: #### L IPID, BMP, LDLD, MG, CBCNO #### [place] [address] [place] Potassium [Moles/Vol] 4.1 mmol/L Normal 3.5-5.1 [facility] Comment on above: Performed By: #### L IPID, BMP, LDLD, MG, CBCNO #### [facility] [address] Sodium [Moles/Vol] 140 mmol/L Normal 136-145 [facility] Comment on above: Performed By: #### L IPID, BMP, LDLD, MG, CBCNO #### [facility] [address] Urea nitrogen [Mass/Vol] 18 mg/dL Normal 7-25 [facility] Comment on above: Performed By: #### L IPID, BMP, LDLD, MG, CBCNO #### [facility] [address] Calcium [Mass/volume] in Ser um or PlasmaOrdered By: Shaila Bowen on 07-13-2023 Calcium [Mass/Vol] 8.8 mg/dL 8.6-10.3 [facility] Carbon dioxide, total [Moles /volume] in Serum or PlasmaOrdered By: Shaila Bowen on 07-13-2023 CO2 [Moles/Vol] 21.3 mmol/L 21.0-31.0 [facility] Chloride [Moles/volume] in S ayanna or PlasmaOrdered By: Shaila Bowen on 07-13-2023 Chloride [Moles/Vol] 111 mmol/L 98-107 [facility] Creatinine [Mass/volume] in Serum or PlasmaOrdered By: Shaila Bowen on 07-13-2023 Creatinine [Mass/Vol] 1.61 mg/dL 0.70-1.30 [facility] Erythrocyte distribution wid th Auto (RBC) [Ratio]Ordered By: Shaila Bowen on 07-13-2023 Erythrocyte distribution width (RBC) [Ratio] 14.2 % 12.0-14.[address] [facility] Glucose Glucometer (BldC) [M ass/Vol]Ordered By: Shaila Bowen on 07-13-2023 Glucose [Mass/Vol] 200 mg/dL [facility] Comment on above: Random Glucose Refer ence Range is dependent on time and content of last meal. Glucose of more than 200 mg/dL in a nonstressed, ambulatory subject supports the diagnosis of Diabetes Mellitus. Glucose Poct Glucometerson 0 07-13-2023 Commemt1 Glu2: Cleaned Meter Normal [facility] Comment on above: Result Comment: PERF ORMED BY: [place] [address] PATHOLOGIST SOFT WORK CIGAR MACHINE OPERATOR RADHA CARR M.D. Performed By: #### U A #### [place] [address] [place] Glucose [Mass/Vol] 200 mg/dL Normal [facility] Comment on above: Result Comment: [place] om Glucose Reference Range is dependent on time and content of last meal. Glucose of more than 200 mg/dL in a nonstressed, ambulatory subject supports the diagnosis of Diabetes Mellitus. Performed By: #### U A #### [address] Commemt1 Glu2: Cleaned Meter Normal [facility] Comment on above: Result Comment: PERF ORMED BY: [place] [address] PATHOLOGIST SOFT WORK CIGAR MACHINE OPERATOR RADHA CARR M.D. Performed By: #### L IPID, BMP, LDLD, MG, CBCNO #### [place] [id number] [place] Glucose [Mass/Vol] 200 mg/dL Normal [facility] Comment on above: Result Comment: [place] Glucose Reference Range is dependent on time and content of last meal. Glucose of more than 200 mg/dL in a nonstressed, ambulatory subject supports the diagnosis of Diabetes Mellitus. Performed By: #### L IPID, BMP, LDLD, MG, CBCNO #### [facility] [address] [place] [id number] [place] Glucose [Mass/volume] in Ser um or PlasmaOrdered By: Shaila Bowen on 07-13-2023 Glucose [Mass/Vol] 146 mg/dL 70-100 [facility] Comment on above: ADA recommended refe rence rangeRandom Glucose Reference Range is dependent on time and content of last meal. Glucose of more than 200 mg/dL in a nonstressed, ambulatory subject supports the diagnosis of Diabetes Mellitus. Hematocrit Auto (Bld) [Volum e fraction]Ordered By: Shaila Bowen on 07-13-2023 Hematocrit (Bld) [Volume fraction] 39.9 % 38.8-50.[address] [facility] Hemoglobin [Mass/volume] in BloodOrdered By: hSaila Bowen on 07-13-2023 Hemoglobin (Bld) [Mass/Vol] 13.5 g/dL 13.0-17.[address] [facility] Hemogram CBC Without Diffon 07-13-2023 Erythrocyte distribution width (RBC) [Ratio] 14.2 % Normal 12.0-14.8 [facility] Comment on above: Performed By: #### L IPID, BMP, LDLD, MG, CBCNO #### [address] Hematocrit (Bld) [Volume fraction] 39.9 % Normal 38.8-50.0 [facility] Comment on above: Performed By: #### L IPID, BMP, LDLD, MG, CBCNO #### [address] Hemoglobin (Bld) [Mass/Vol] 13.5 g/dL Normal 13.0-17.0 [facility] Comment on above: Performed By: #### L IPID, BMP, LDLD, MG, CBCNO #### [address] MCH (RBC) [Entitic mass] 31.4 pg Normal 27.5-35.2 [facility] Comment on above: Performed By: #### L IPID, BMP, LDLD, MG, CBCNO #### [address] MCV (RBC) [Entitic vol] 92.7 fL Normal 83.5-101 [facility] Comment on above: Performed By: #### L IPID, BMP, LDLD, MG, CBCNO #### [address] Mean Corpuscular HGB Conc 33.9 g/dL Normal 32.5-35.6 [facility] Comment on above: Performed By: #### L IPID, BMP, LDLD, MG, CBCNO #### [address] Platelet mean volume (Bld) [Entitic vol] 7.8 fL Normal 6.6-10.1 [facility] Comment on above: Result Comment: PERF ORMED BY: [place] [address] PATHOLOGIST SOFT WORK CIGAR MACHINE OPERATOR RADHA CARR M.D. Performed By: #### L IPID, BMP, LDLD, MG, CBCNO #### [address] Platelets (Bld) [#/Vol] 194 10*3/uL Normal 150-450 [facility] Comment on above: Performed By: #### L IPID, BMP, LDLD, MG, CBCNO #### [address] RBC (Bld) [#/Vol] 4.31 10*6/uL Normal 3.90-5.60 [facility] Comment on above: Performed By: #### L IPID, BMP, LDLD, MG, CBCNO #### [address] WBC (Bld) [#/Vol] 6.6 10*3/uL Normal 4.1-10.5 [facility] Comment on above: Performed By: #### L IPID, BMP, LDLD, MG, CBCNO #### [address] Leukocytes [#/volume] correc desean for nucleated erythrocytes in Blood by Automated counOrdered By: Shaila Bowen on 07-13-2023 WBC corrected for nucl RBC Auto (Bld) [#/Vol] 6.6 10*3/uL 4.1-10.[address] [facility] MCH Auto (RBC) [Entitic mass ]Ordered By: Shaila Bowen on 07-13-2023 MCH (RBC) [Entitic mass] 31.4 pg 27.5-35.[address] [facility] MCHC Auto (RBC) [Mass/Vol]Or dered By: Shaila Bowen on 07-13-2023 MCHC (RBC) [Mass/Vol] 33.9 g/dL 32.5-35.6 [facility] MCV Auto (RBC) [Entitic vol] Ordered By: Shaila Bowen on 07-13-2023 MCV (RBC) [Entitic vol] 92.7 fL 83.5-[address] [facility] No Panel InformationOrdered By: Shaila Bowen on 07-13-2023 Bedside Glucose Comment Glu2: cleaned meter [facility] Estimated GFR (CKD-EPI) 47.459 mL/Min [facility] Creatinine Clearance (Chem 57.[address] [facility] Platelet mean volume Auto (B ld) [Entitic vol]Ordered By: Shaila Bowen on 07-13-2023 Platelet mean volume (Bld) [Entitic vol] 7.8 fL 6.6-10.[address] [facility] Platelets Auto (Bld) [#/Vol] Ordered By: Shaila Bowen on 07-13-2023 Platelets (Bld) [#/Vol] 194 10*3/uL 150-[address] [facility] Potassium [Moles/volume] in Serum or PlasmaOrdered By: Shaila Bowen on 07-13-2023 Potassium [Moles/Vol] 4.1 mmol/L 3.5-5.1 [facility] RBC Auto (Bld) [#/Vol]Ordere d By: Shaila Bowen on 07-13-2023 RBC (Bld) [#/Vol] 4.31 10*6/uL 3.90-5.60 [facility] Serum or plasma anion gap de terminationOrdered By: Shaila Bowen on 07-13-2023 Anion gap [Moles/Vol] 11.8 mmol/L 6.0-15.0 [facility] Sodium [Moles/volume] in Ser um or PlasmaOrdered By: Ashleybarbiekenroy Bowen on 07-13-2023 Sodium [Moles/Vol] 140 mmol/L 136-145 [facility] Urea nitrogen [Mass/volume] in Serum or PlasmaOrdered By: Shaila Bowen on 07-13-2023 Urea nitrogen [Mass/Vol] 18 mg/dL 7-[address] [facility] Ammoniaon 07-12-2023 Ammonia (P) [Moles/Vol] 27 umol/L Normal [facility] Comment on above: Result Comment: PERF ORMED BY: [place] [address] PATHOLOGIST SOFT WORK CIGAR MACHINE OPERATOR RADHA CARR M.D. Performed By: #### L IPID, BMP, LDLD, MG, CBCNO #### [facility] [address] [place] [address] [place] Ammonia [Moles/volume] in Pl asmaOrdered By: Ashleymelchor Melanievicente on 07-12-2023 Ammonia (P) [Moles/Vol] 27 umol/L [facility] Basic Metabolic Panelon 06-22 Anion gap [Moles/Vol] 10.5 mmol/L Normal 6.0-15.0 [facility] Comment on above: Performed By: #### L IPID, BMP, LDLD, MG, CBCNO #### [facility] [address] [place] [address] [place] Calcium [Mass/Vol] 8.7 mg/dL Normal 8.6-10.3 [facility] Comment on above: Performed By: #### L IPID, BMP, LDLD, MG, CBCNO #### [facility] [address] [place] [address] [place] Chloride [Moles/Vol] 111 mmol/L High 98-107 [facility] Comment on above: Performed By: #### L IPID, BMP, LDLD, MG, CBCNO #### [facility] [address] [place] [address] [place] CO2 [Moles/Vol] 22.5 mmol/L Normal 21.0-31.0 [facility] Comment on above: Performed By: #### L IPID, BMP, LDLD, MG, CBCNO #### [address] Creatinine [Mass/Vol] 1.58 mg/dL High 0.70-1.30 [facility] Comment on above: Performed By: #### L IPID, BMP, LDLD, MG, CBCNO #### [place] [address] [place] Creatinine Clr Calc Pharmacy 58.64 Normal [facility] Comment on above: Performed By: #### L IPID, BMP, LDLD, MG, CBCNO #### [place] [address] [place] GFR/1.73 sq M.predicted MDRD (S/P/Bld) [Vol rate/Area] 48.543 mL/min/{1.73_m2} Normal [facility] Comment on above: Performed By: #### L IPID, BMP, LDLD, MG, CBCNO #### [address] Glucose [Mass/Vol] 203 mg/dL High 70-100 [facility] Comment on above: Result Comment: [place] Glucose Reference Range is dependent on time and content of last meal. Glucose of more than 200 mg/dL in a nonstressed, ambulatory subject supports the diagnosis of Diabetes Mellitus. ADA recommended reference range Performed By: #### L IPID, BMP, LDLD, MG, CBCNO #### [address] Potassium [Moles/Vol] 4.0 mmol/L Normal 3.5-5.1 [facility] Comment on above: Performed By: #### L IPID, BMP, LDLD, MG, CBCNO #### [place] [address] [place] Sodium [Moles/Vol] 140 mmol/L Normal 136-145 [facility] Comment on above: Performed By: #### L IPID, BMP, LDLD, MG, CBCNO #### [facility] [address] [place] [address] [place] Urea nitrogen [Mass/Vol] 17 mg/dL Normal 7-25 [facility] Comment on above: Performed By: #### L IPID, BMP, LDLD, MG, CBCNO #### [facility] [address] Cholesterol [Mass/volume] in Serum or PlasmaOrdered By: Shaila Bowen on 07-12-2023 Cholesterol [Mass/Vol] 197 mg/dL 140-200 [facility] Comment on above: Chol less than 200 m g/dl low riskChol 201-239 mg/dl borderline riskChol 240 mg/dl and greater high risk Cholesterol in LDL Calc [Mas s/Vol]Ordered By: Shaila Bowen on 07-12-2023 Cholesterol in [facility]Mass[facility]Vol] [facility] Test not performed Cholesterol in LDL [Mass/vol ume] in Serum or PlasmaOrdered By: Shaila Bowen on 07-12-2023 Cholesterol in LDL [Mass/Vol] 117 mg/dL 0-[address] [facility] Comment on above: LDL ATP III CLASSIFI CATIONLDL less than 100 mg/dL OptimalLDL 100-129 mg/dL Near or above optimalLDL 130-159 mg/dL Borderline highLDL 160-189 mg/dL HighLDL greater than 189 mg/dL Very high Cholesterol in VLDL Calc [Ma ss/Vol]Ordered By: Shaila Bowen on 07-12-2023 Cholesterol in VLDL [Mass/Vol] 87 mg/dL [facility] ECH echo transthoracicon ECH echo transthoracic [facility] Main [place] [address] [place] [address] Echocardiogram Signed Patient: Rod Mathias MR#: [id number] 1426 : 1960 Acct:[id number] Age/Sex: 62 / M ADM Date: 07/11/23 Loc: Room: [address] [place] [address] Type: ADM INOo Attending Dr: Shaila Bowen MD Ordering Provider: Shaila Bowen MD Date of Service: 07/11/23 ECH/ECH echo transthoracic: with agitated saline Copies to: Nilo Roach MD, [facility] Shaila Bowen MD Weight: 235 lb Performed [...] 67.8 cm/sec LV V1 VTI: 18.1 cm Transcribed By: VERÓNICA Performed At: 07/12/23 0912 Signed By: Nilo Roach MD, [facility] 07/12/23 1406 Normal [facility] Glucose Poct Glucometerson 0 07-12-2023 Glucose [Mass/Vol] 160 mg/dL Normal [facility] Comment on above: Result Comment: [place] Glucose Reference Range is dependent on time and content of last meal. Glucose of more than 200 mg/dL in a nonstressed, ambulatory subject supports the diagnosis of Diabetes Mellitus. PERFORMED BY: [place] [address] PATHOLOGIST SOFT WORK CIGAR MACHINE OPERATOR RADHA CARR M.D. Performed By: #### G LULS #### Point of Care testing , Commemt1 Glu2: Cleaned Meter Normal [facility] Comment on above: Result Comment: PERF ORMED BY: [place] [address] PATHOLOGIST SOFT WORK CIGAR MACHINE OPERATOR RADHA CARR M.D. Performed By: #### G LULS #### Point of Care testing , Glucose [Mass/Vol] 158 mg/dL Normal [facility] Comment on above: Result Comment: [place] Glucose Reference Range is dependent on time and content of last meal. Glucose of more than 200 mg/dL in a nonstressed, ambulatory subject supports the diagnosis of Diabetes Mellitus. Performed By: #### G LULS #### Point of Care testing , Commemt1 Glu2: Cleaned Meter Normal [facility] Comment on above: Result Comment: PERF ORMED BY: [place] [id number] PATHOLOGIST SOFT WORK CIGAR MACHINE OPERATOR RADHA CARR M.D. Performed By: #### G LULS #### Point of Care testing , Performed By: #### L IPID, BMP, LDLD, MG, CBCNO #### [address] Glucose [Mass/Vol] 219 mg/dL Normal [facility] Comment on above: Result Comment: [place] om Glucose Reference Range is dependent on time and content of last meal. Glucose of more than 200 mg/dL in a nonstressed, ambulatory subject supports the diagnosis of Diabetes Mellitus. Performed By: #### G ANAMIKA #### Point of Care testing , Glucose [Mass/Vol] 207 mg/dL Normal [facility] Comment on above: Result Comment: [place] om Glucose Reference Range is dependent on time and content of last meal. Glucose of more than 200 mg/dL in a nonstressed, ambulatory subject supports the diagnosis of Diabetes Mellitus. Performed By: #### L IPID, BMP, LDLD, MG, CBCNO #### [address] Hemogram CBC Without Diffon 07-12-2023 Erythrocyte distribution width (RBC) [Ratio] 14.0 % Normal 12.0-14.8 [facility] Comment on above: Performed By: #### L IPID, BMP, LDLD, MG, CBCNO #### [address] Hematocrit (Bld) [Volume fraction] 40.7 % Normal 38.8-50.0 [facility] Comment on above: Performed By: #### L IPID, BMP, LDLD, MG, CBCNO #### [address] Hemoglobin (Bld) [Mass/Vol] 13.3 g/dL Normal 13.0-17.0 [facility] Comment on above: Performed By: #### L IPID, BMP, LDLD, MG, CBCNO #### [place] [address] [place] MCH (RBC) [Entitic mass] 30.6 pg Normal 27.5-35.2 [facility] Comment on above: Performed By: #### L IPID, BMP, LDLD, MG, CBCNO #### [place] [address] [place] MCV (RBC) [Entitic vol] 93.5 fL Normal 83.5-101 [facility] Comment on above: Performed By: #### L IPID, BMP, LDLD, MG, CBCNO #### [address] Mean Corpuscular HGB Conc 32.7 g/dL Normal 32.5-35.6 [facility] Comment on above: Performed By: #### L IPID, BMP, LDLD, MG, CBCNO #### [address] Platelet mean volume (Bld) [Entitic vol] 8.0 fL Normal 6.6-10.1 [facility] Comment on above: Result Comment: PERF ORMED BY: [place] [address] PATHOLOGIST SOFT WORK CIGAR MACHINE OPERATOR RADHA CARR M.D. Performed By: #### L IPID, BMP, LDLD, MG, CBCNO #### [address] Platelets (Bld) [#/Vol] 192 10*3/uL Normal 150-450 [facility] Comment on above: Performed By: #### L IPID, BMP, LDLD, MG, CBCNO #### [address] RBC (Bld) [#/Vol] 4.35 10*6/uL Normal 3.90-5.60 [facility] Comment on above: Performed By: #### L IPID, BMP, LDLD, MG, CBCNO #### [address] WBC (Bld) [#/Vol] 6.8 10*3/uL Normal 4.1-10.5 [facility] Comment on above: Performed By: #### L IPID, BMP, LDLD, MG, CBCNO #### [address] LDL Cholesterol Measuredon 0 07-12-2023 LDL Cholesterol Measured 117 mg/dL High 0-100 [facility] Comment on above: Result Comment: LDL ATP III CLASSIFICATION LDL less than 100 mg/dL Optimal LDL 100-129 mg/dL Near or above optimal LDL 130-159 mg/dL Borderline high LDL 160-189 mg/dL High LDL greater than 189 mg/dL Very high PERFORMED BY: [address] [address] PATHOLOGIST SOFT WORK CIGAR MACHINE OPERATOR RADHA CARR M.D. Performed By: #### L IPID, BMP, LDLD, MG, CBCNO #### [place] [id number] [facility] Lipid Panelon 07-12-2023 Cholesterol [Mass/Vol] 197 mg/dL Normal 140-200 [facility] Comment on above: Result Comment: Chol less than 200 mg/dl low risk Chol 201-239 mg/dl borderline risk Chol 240 mg/dl and greater high risk Performed By: #### L IPID, BMP, LDLD, MG, CBCNO #### [address] Cholesterol in HDL [Mass/Vol] 41 mg/dL Normal 23-92 [facility] Comment on above: Result Comment: HDL CHOL ATP-III CLASSIFICATION Cardiovascular Risk HDL > or equal to 60 mg/dL LOW HDL < 40 mg/dL HIGH Performed By: #### L IPID, BMP, LDLD, MG, CBCNO #### [place] [id number] [facility] Cholesterol.total/Chol esterol in HDL [Mass ratio] 4.8 {ratio} Normal <5.0 [facility] Comment on above: Result Comment: PERF ORMED BY: [place] [address] PATHOLOGIST SOFT WORK CIGAR MACHINE OPERATOR RADHA CARR M.D. Performed By: #### L IPID, BMP, LDLD, MG, CBCNO #### [place] [id number] [facility] LDL Cholesterol,Calculated Not performed Normal 0-100 [facility] Comment on above: Performed By: #### L IPID, BMP, LDLD, MG, CBCNO #### [facility] [address] Triglyceride w/Reflex 438 mg/dL High 0-149 [facility] Comment on above: Result Comment: [...] L IPID, BMP, LDLD, MG, CBCNO #### [facility] [address] VLDL CHOLESTEROL 87 mg/dL Normal [facility] Comment on above: Performed By: #### L IPID, BMP, LDLD, MG, CBCNO #### [facility] [address] MR head/brain wo/w conon MR head/brain wo/w con [facility] Main [place] [address] [place] [address] MRI Report Signed Patient: Rod Mathias MR#: [id number] 1426 : 1960 Acct:[id number] Age/Sex: 62 / M ADM Date: 07/11/23 Loc: Room: [address] [place] [address] Type: ADM INOo Attending Dr: Shaila Bowen [...] Angelica Bar M.D.07/12/2023 8:10 PM Dictation Location: [place] [address] Transcribed By: [facility] 07/12/232009 Dictated By: Angelica Bar MD 07/12/231958 Signed By: 07/12/232009 Normal [facility] Magnesiumon 07-12-2023 Magnesium [Mass/Vol] 2.1 mg/dL Normal 1.9-2.7 [facility] Comment on above: Performed By: #### L IPID, BMP, LDLD, MG, CBCNO #### [facility] [address] [place] [address] Magnesium [Mass/volume] in S ayanna or PlasmaOrdered By: Shaila Bowen on 07-12-2023 Magnesium [Mass/Vol] 2.1 mg/dL 1.9-2.7 [facility] Serum or plasma high density lipoprotein (HDL) cholesterol measurementOrdered By: Shaila Bowen on 07-12-2023 Cholesterol in HDL [Mass/Vol] 41 mg/dL [facility] Comment on above: HDL CHOL ATP-III CLA SSIFICATION Cardiovascular RiskHDL > or equal to 60 mg/dL LOWHDL < 40 mg/dL HIGH Serum or plasma total choles terol/high density lipoprotein (HDL) cholesterol mass ratOrdered By: Shaila Bowen on 07-12-2023 Cholesterol.total/Chol esterol in HDL [Mass ratio] 4.8 {ratio} <5.[address] [facility] Triglyceride [Mass/volume] i n Serum or PlasmaOrdered By: Shaila Bowen on 07-12-2023 Triglyceride [Mass/Vol] 438 mg/dL 0-[address] [facility] Comment on above: If the triglyceride [...] doppler BIon 06-22 US carotid doppler BI [facility] Main [place] [address] [place] [address] Ultrasound Report Signed Patient: Rod Mathias MR#: [id number] 1426 : 1960 Acct:[id number] Age/Sex: 62 / M ADM Date: 07/11/23 Loc: 4N Room: 4T9514-0 Type: ADM INOo Attending Dr: Shaila Bowen [...] Arun Collier MD07/12/2023 10:17 AM Dictation Location: [place] [address] Tech: Candy Chatterjee Transcribed By: [facility] 07/12/23 1017 Dictated By: Arun Collier MD 07/12/23 1017 Signed By: 07/12/23 1017 Normal [facility] Activated partial thrombopla stin time (aPTT) in platelet poor plasma by coagulation aOrdered By: César Arreaga on 07-11-2023 aPTT Coag (PPP) [Time] 28.5 s 25.1-36.5 [facility] Comment on above: A hematocrit value g reater than 55% may lead to inaccurate results in coagulation testing. Patients having hematocrit values >55% require a special collection tube for coagulation studies. Please contact the laboratory at [phone] for redraw instructions. Alanine aminotransferase [En zymatic activity/volume] in Serum or PlasmaOrdered By: César Arreaga on 07-11-2023 ALT [Catalytic activity/Vol] 18 U/L 7-[address] [facility] Albumin [Mass/volume] in Ser um or Plasma by Bromocresol green (BCG) dye binding methoOrdered By: César Arreaga on 07-11-2023 Albumin BCG dye [Mass/Vol] 4.7 g/dL 3.5-5.[address] [facility] Alkaline phosphatase [Enzyma tic activity/volume] in Serum or PlasmaOrdered By: César Arreaga on 07-11-2023 ALP [Catalytic activity/Vol] 94 U/L 34-[address] [facility] Arterial Blood Gason 023 ABG Base Excess -4.6 mmol/L Low -3.0-3.0 [facility] Comment on above: Performed By: #### A BG #### Point of Care testing , ABG Frac Inspired O2 21 % Normal [facility] Comment on above: Performed By: #### A BG #### Point of Care testing , ABG Oxygen Content 8.7 mmol/L Normal 6.6-9.7 [facility] Comment on above: Performed By: #### A BG #### Point of Care testing , ABG Oxygen Saturation 95.7 % Normal 95.0-100.0 [facility] Comment on above: Performed By: #### A BG #### Point of Care testing , ABG PCO2 33.2 mm[Hg] Low 35.0-45.0 [facility] Comment on above: Performed By: #### A BG #### Point of Care testing , ABG PH 7.39 Normal 7.35-7.45 [facility] Comment on above: Performed By: #### A BG #### Point of Care testing , ABG PO2 77.1 mm[Hg] Low 80.0-100.0 [facility] Comment on above: Performed By: #### A BG #### Point of Care testing , CO2 [Moles/Vol] 20.4 mmol/L Low 23.0-27.0 [facility] Comment on above: Performed By: #### A BG #### Point of Care testing , HCO3 (Bld) [Moles/Vol] 19.4 mmol/L Low 23.0-29.0 [facility] Comment on above: Performed By: #### A BG #### Point of Care testing , Respiratory Critical Normal [facility] Comment on above: Result Comment: Crit ical Value called on: 07/11/2023 at 18:36 PERFORMED BY: [place] [address] PATHOLOGIST SOFT WORK CIGAR MACHINE OPERATOR RADHA CARR M.D. Performed By: #### A BG #### Point of Care testing , VBG Draw Site Left Radial Normal [facility] Comment on above: Performed By: #### A BG #### Point of Care testing , Aspartate aminotransferase [ Enzymatic activity/volume] in Serum or PlasmaOrdered By: César Arreaga on 07-11-2023 AST [Catalytic activity/Vol] 15 U/L 13-[address] [facility] B-Type Natriuretic Peptideon 07-11-2023 Natriuretic peptide B (Bld) [Mass/Vol] 10.0 pg/mL Normal 5-100 [facility] Comment on above: Result Comment: PERF ORMED BY: [place] [address] PATHOLOGIST SOFT WORK CIGAR MACHINE OPERATOR RADHA CARR M.D. Performed By: #### U A #### [address] Bacterial blood cultureOrder ed By: César Arreaga on 07-11-2023 Bacteria identified Cx Nom (Bld) NO GROWTH [address] [facility] Basic Metabolic Panelon 06-22 Anion gap [Moles/Vol] 15.1 mmol/L High 6.0-15.0 [facility] Comment on above: Performed By: #### L IPID, BMP, LDLD, MG, CBCNO #### [facility] [address] [place] [address] Calcium [Mass/Vol] 9.7 mg/dL Normal 8.6-10.3 [facility] Comment on above: Performed By: #### L IPID, BMP, LDLD, MG, CBCNO #### [place] [id number] [facility] Chloride [Moles/Vol] 107 mmol/L Normal 98-107 [facility] Comment on above: Performed By: #### L IPID, BMP, LDLD, MG, CBCNO #### [place] [address] [place] CO2 [Moles/Vol] 23.0 mmol/L Normal 21.0-31.0 [facility] Comment on above: Performed By: #### L IPID, BMP, LDLD, MG, CBCNO #### [place] [address] [place] Creatinine [Mass/Vol] 1.50 mg/dL High 0.70-1.30 [facility] Comment on above: Performed By: #### L IPID, BMP, LDLD, MG, CBCNO #### [place] [address] [place] Creatinine Clr Calc Pharmacy 61.83 Normal [facility] Comment on above: Result Comment: PERF ORMED BY: [place] [address] PATHOLOGIST SOFT WORK CIGAR MACHINE OPERATOR RADHA CARR M.D. Performed By: #### L IPID, BMP, LDLD, MG, CBCNO #### [place] [address] [place] GFR/1.73 sq M.predicted MDRD (S/P/Bld) [Vol rate/Area] 51.666 mL/min/{1.73_m2} Normal [facility] Comment on above: Performed By: #### L IPID, BMP, LDLD, MG, CBCNO #### [place] [address] [place] Glucose [Mass/Vol] 172 mg/dL High 70-100 [facility] Comment on above: Result Comment: [place] Glucose Reference Range is dependent on time and content of last meal. Glucose of more than 200 mg/dL in a nonstressed, ambulatory subject supports the diagnosis of Diabetes Mellitus. ADA recommended reference range Performed By: #### L IPID, BMP, LDLD, MG, CBCNO #### [facility] [address] [place] [address] [place] Potassium [Moles/Vol] 4.1 mmol/L Normal 3.5-5.1 [facility] Comment on above: Performed By: #### L IPID, BMP, LDLD, MG, CBCNO #### [facility] [address] Sodium [Moles/Vol] 141 mmol/L Normal 136-145 [facility] Comment on above: Performed By: #### L IPID, BMP, LDLD, MG, CBCNO #### [facility] [address] Urea nitrogen [Mass/Vol] 15 mg/dL Normal 7-25 [facility] Comment on above: Performed By: #### L IPID, BMP, LDLD, MG, CBCNO #### [facility] [address] Basophils Auto (Bld) [#/Vol] Ordered By: César Arreaga on 07-11-2023 Basophils (Bld) [#/Vol] 0.1 10*3/uL 0.0-0.[address] [facility] Basophils/100 WBC Auto (Bld) Ordered By: César Arreaga on 07-11-2023 Basophils/100 WBC (Bld) 0.7 % . [facility] Bilirubin Test strip Ql (U)O rdered By: César Arreaga on 07-11-2023 Bilirubin Ql (U) Negative Negative [facility] Bilirubin.direct [Mass/volum e] in Serum or PlasmaOrdered By: César Arreaga on 07-11-2023 Bilirubin.direct [Mass/Vol] 0.10 mg/dL 0.03-0.[address] [facility] Bilirubin.total [Mass/volume ] in Serum or PlasmaOrdered By: César Arreaga on 07-11-2023 Bilirubin [Mass/Vol] 0.6 mg/dL 0.3-1.0 [facility] Blood Cultureon 07-11-2023 Bacteria identified Cx Nom (Bld) MARIA EUGENIA Rosa Notified AB 2048 NO GROWTH 5 DAYS PERFORMED BY: [place] [address] PATHOLOGIST SOFT WORK CIGAR MACHINE OPERATOR RADHA CARR M.D. Normal [facility] Comment on above: Performed By: #### L IPID, BMP, LDLD, MG, CBCNO #### [facility] [address] Bacteria identified Cx Nom (Bld) NO GROWTH 5 DAYS PERFORMED BY: [facility] [address] [facility] [place] [address] PATHOLOGIST SOFT WORK CIGAR MACHINE OPERATOR RADHA Choi [facility] Comment on above: Performed By: #### L IPID, BMP, LDLD, MG, CBCNO #### [facility] [address] COVID CepheidOrdered By: Ashley Arreaga on 07-11-2023 SARS-CoV-2 (COVID-19) Ab IA Ql Negative Negative [facility] Comment on above: This is a duplicate Cepheid Xpert Xpress CoV-2/Flu/RSV Plus RNA by RT-PCR result to be used for statistical tracking purpose only. SARS-CoV-2 (COVID-19) RNA ANGÉLICA+probe Ql (Unsp spec) [facility] COVID-19 / Flu A/B / RSV [...] or Cepheid Disclaimer revoked sooner. PERFORMED BY: [place] [address] PATHOLOGIST SOFT WORK CIGAR MACHINE OPERATOR RADHA CARR M.D. [place] [facility] Comment on above: Performed By: #### L IPID, BMP, LDLD, MG, CBCNO #### [address] head/brain wo conon 07-11 CT head/brain wo [place] [address] CT Scan Report Signed Patient: Rod Mathias MR#: [id number] 1426 : 1960 Acct:[id number] Age/Sex: 62 / M ADM Date: 07/11/23 Loc: ER Room: Type: [facility] ER Attending Dr: Copies to: César [...] Darien Roldan M.D.07/11/2023 5:32 PM Dictation Location: [place] [address] Transcribed By: THADDEUS 07/11/23 173 Dictated By: Darien Roldan II, MD 07/11/231727 Signed By: 07/11/23 173 Normal [facility] Cepheid COVID PCR Negativeon 07-11-2023 SARS-CoV-2 (COVID-19) RNA ANGÉLICA+probe Ql (Unsp spec) Negative Normal Negative [facility] Comment on above: Result Comment: This is a duplicate CepRollerscootid Xpert Xpress CoV-2/Flu/RSV Plus RNA by RT-PCR result to be used for statistical tracking purpose only. PERFORMED BY: [place] [address] PATHOLOGIST SOFT WORK CIGAR MACHINE OPERATOR RADHA CARR M.D. Performed By: #### L IPID, BMP, LDLD, MG, CBCNO #### [address] Color Auto (U)Ordered By: Luis Arreaga on 07-11-2023 Color (U) Yellow Yellow [facility] Complete Blood Count Auto Di ffon 07-11-2023 Basophils (Bld) [#/Vol] 0.1 10*3/uL Normal 0.0-0.2 [facility] Comment on above: Result Comment: PERF ORMED BY: [place] [address] PATHOLOGIST SOFT WORK CIGAR MACHINE OPERATOR RADHA CARR M.D. Performed By: #### U A #### [place] [address] [place] Basophils/100 WBC (Bld) 0.7 % Normal . [facility] Comment on above: Performed By: #### U A #### [address] Eosinophils (Bld) [#/Vol] 0.1 10*3/uL Normal 0.0-0.45 [facility] Comment on above: Performed By: #### U A #### [address] Eosinophils/100 WBC (Bld) 1.0 % Normal . [facility] Comment on above: Performed By: #### U A #### [address] Erythrocyte distribution width (RBC) [Ratio] 14.3 % Normal 12.0-14.8 [facility] Comment on above: Performed By: #### U A #### [address] Hematocrit (Bld) [Volume fraction] 44.8 % Normal 38.8-50.0 [facility] Comment on above: Performed By: #### U A #### [address] Hemoglobin (Bld) [Mass/Vol] 14.9 g/dL Normal 13.0-17.0 [facility] Comment on above: Performed By: #### U A #### [place] [address] [place] Lymphocytes (Bld) [#/Vol] 2.4 10*3/uL Normal 1.00-4.8 [facility] Comment on above: Performed By: #### U A #### [place] [address] [place] Lymphocytes/100 WBC (Bld) 27.5 % Normal . [facility] Comment on above: Performed By: #### U A #### [address] [address] [place] MCH (RBC) [Entitic mass] 30.8 pg Normal 27.5-35.2 [facility] Comment on above: Performed By: #### U A #### [address] MCV (RBC) [Entitic vol] 92.8 fL Normal 83.5-101 [facility] Comment on above: Performed By: #### U A #### [address] Mean Corpuscular HGB Conc 33.2 g/dL Normal 32.5-35.6 [facility] Comment on above: Performed By: #### U A #### [address] Monocytes (Bld) [#/Vol] 0.7 10*3/uL Normal 0.0-0.8 [facility] Comment on above: Performed By: #### U A #### [address] Monocytes/100 WBC (Bld) 16.92 % Normal 0.00-20.00 [facility] Comment on above: Performed By: #### U A #### [address] Monocytes/100 WBC (Bld) 8.1 % Normal . [facility] Comment on above: Performed By: #### U A #### [address] Neutrophils (Bld) [#/Vol] 5.6 10*3/uL Normal 1.8-7.7 [facility] Comment on above: Performed By: #### U A #### [address] Neutrophils/100 WBC (Bld) 62.7 % Normal . [facility] Comment on above: Performed By: #### U A #### [address] NRBC% 0.1 /100{WBC} Normal 0-0.5 [facility] Comment on above: Performed By: #### U A #### [facility] [address] [place] [id number] [place] Platelet mean volume (Bld) [Entitic vol] 8.5 fL Normal 6.6-10.1 [facility] Comment on above: Performed By: #### U A #### [facility] [address] [place] [id number] [place] Platelets (Bld) [#/Vol] 222 10*3/uL Normal 150-450 [facility] Comment on above: Performed By: #### U A #### [facility] [address] [place] [address] [place] RBC (Bld) [#/Vol] 4.83 10*6/uL Normal 3.90-5.60 [facility] Comment on above: Performed By: #### U A #### [facility] [address] [place] [address] [place] WBC (Bld) [#/Vol] 8.9 10*3/uL Normal 4.1-10.5 [facility] Comment on above: Performed By: #### U A #### [facility] [address] [place] [address] [place] Creatine Kinaseon 07-11-2023 CK [Catalytic activity/Vol] 69 U/L Normal 30-223 [facility] Comment on above: Performed By: #### U A #### [place] [address] [place] Creatine kinase [Enzymatic a ctivity/volume] in Serum or PlasmaOrdered By: César Arreaga on 07-11-2023 CK [Catalytic activity/Vol] 69 U/L 30-[address] [facility] ECG 12 lead ECGon 07-11-2023 ECG 12 lead ECG [facility] [place] [address] [place] [address] Electrocardiograph Report Signed Patient: Rod Mathias MR#: [id number] 1426 : 1960 Acct:[id number] Age/Sex: 62 / M ADM Date: 07/11/23 Loc: Room: [address] [place] [address] Type: ADM INOo Attending Dr: Shaila Bowen [...] Anterior leads Confirmed by César Arreaga DO ([id number]) on 07/11/2023 7:47:31 PM Referred By: Electronically Signed By:César Arreaga DO Transcribed By: MUS Signed By César Arreaga DO 1946 Normal [facility] Eosinophils Auto (Bld) [#/Vo l]Ordered By: César Arreaga on 07-11-2023 Eosinophils (Bld) [#/Vol] 0.1 10*3/uL 0.0-0.[address] [facility] Eosinophils/100 WBC Auto (Bl d)Ordered By: César Arreaga on 07-11-2023 Eosinophils/100 WBC (Bld) 1.0 % . [facility] Folate [Mass/volume] in Seru m or PlasmaOrdered By: Shaila Bowen on 07-11-2023 Folate [Mass/Vol] 20.1 ng/mL >5.9 [facility] Comment on above: Folate reference ran ge: >5.9 ng/mlThe WHO technical consultation on folate and vitamin [id number] has determined that folate concentrations lessthan 4 ng/ml are considered deficient. Globulin Calc (S) [Mass/Vol] Ordered By: César Arreaga on 07-11-2023 Globulin (S) [Mass/Vol] 3.1 g/dL [facility] Glucose Poct Glucometerson 0 07-11-2023 Commemt1 Glu2: Cleaned Meter Normal [facility] Comment on above: Result Comment: PERF ORMED BY: [place] [address] PATHOLOGIST SOFT WORK CIGAR MACHINE OPERATOR RADHA CARR M.D. Performed By: #### G ANAMIKA #### Point of Care testing , Glucose [Mass/Vol] 181 mg/dL Normal [facility] Comment on above: Result Comment: [facility] Glucose Reference Range is dependent on time and content of last meal. Glucose of more than 200 mg/dL in a nonstressed, ambulatory subject supports the diagnosis of Diabetes Mellitus. Performed By: #### G ANAMIKA #### Point of Care testing , Hepatic Panelon 07-11-2023 Albumin [Mass/Vol] 4.7 g/dL Normal 3.5-5.7 [facility] Comment on above: Performed By: #### L IPID, BMP, LDLD, MG, CBCNO #### [place] [address] [place] Albumin/Globulin [Mass ratio] 1.5 {ratio} Normal [facility] Comment on above: Performed By: #### L IPID, BMP, LDLD, MG, CBCNO #### [place] [address] [place] ALP [Catalytic activity/Vol] 94 U/L Normal 34-104 [facility] Comment on above: Performed By: #### L IPID, BMP, LDLD, MG, CBCNO #### [place] [address] [place] ALT [Catalytic activity/Vol] 18 U/L Normal 7-52 [facility] Comment on above: Performed By: #### L IPID, BMP, LDLD, MG, CBCNO #### [place] [address] [place] AST [Catalytic activity/Vol] 15 U/L Normal 13-39 [facility] Comment on above: Performed By: #### L IPID, BMP, LDLD, MG, CBCNO #### [place] [address] [place] Bilirubin [Mass/Vol] 0.6 mg/dL Normal 0.3-1.0 [facility] Comment on above: Performed By: #### L IPID, BMP, LDLD, MG, CBCNO #### [address] Bilirubin,Indirect 0.5 mg/dL Normal [facility] Comment on above: Performed By: #### L IPID, BMP, LDLD, MG, CBCNO #### [facility] [address] Bilirubin.indirect [Mass/Vol] 0.10 mg/dL Normal 0.03-0.18 [facility] Comment on above: Performed By: #### L IPID, BMP, LDLD, MG, CBCNO #### [address] Globulin (S) [Mass/Vol] 3.1 g/dL Normal [facility] Comment on above: Performed By: #### L IPID, BMP, LDLD, MG, CBCNO #### [address] Protein [Mass/Vol] 7.8 g/dL Normal 6.4-8.9 [facility] Comment on above: Performed By: #### L IPID, BMP, LDLD, MG, CBCNO #### [address] INR in Platelet poor plasma by Coagulation assayOrdered By: César Arreaga on 07-11-2023 INR Coag (PPP) [Relative time] 0.9 {INR} [facility] Comment on above: INR Therapeutic Rang [...] on 07-11-2023 Ketones (U) [Mass/Vol] Negative Negative [facility] Laboratory - Chemistry and C hemistry - challengeOrdered By: César Arreaga on 07-11-2023 CO2 [Moles/Vol] 20.4 mmol/L 23.0-27.0 [facility] HCO3 (Bld) [Moles/Vol] 19.4 mmol/L 23.0-29.0 [facility] Lactate [Moles/volume] in Se rum or PlasmaOrdered By: César Arreaga on 07-11-2023 Lactate [Moles/Vol] 1.7 mmol/L 0.5-2.2 [facility] Lactic Acidon 07-11-2023 Lactate [Moles/Vol] 1.7 mmol/L Normal 0.5-2.2 [facility] Comment on above: Result Comment: PERF ORMED BY: [facility] [address] [place] [address] PATHOLOGIST SOFT WORK CIGAR MACHINE OPERATOR RADHA CARR M.D. Performed By: #### L IPID, BMP, LDLD, MG, CBCNO #### [facility] [address] Lymphocytes Auto (Bld) [#/Vo l]Ordered By: César Arreaga on 07-11-2023 Lymphocytes (Bld) [#/Vol] 2.4 10*3/uL 1.00-4.[address] [facility] Lymphocytes/100 WBC Auto (Bl d)Ordered By: César Arreaga on 07-11-2023 Lymphocytes/100 WBC (Bld) 27.5 % . [facility] Monocyte distribution width [Entitic volume] in Blood by AutomatedOrdered By: César Arreaga on 07-11-2023 Monocyte distribution width Auto (Bld) [Entitic vol] 16.92 % 0.00-20.[address] [facility] Monocytes Auto (Bld) [#/Vol] Ordered By: César Arreaga on 07-11-2023 Monocytes (Bld) [#/Vol] 0.7 10*3/uL 0.0-0.[address] [facility] Monocytes/100 WBC Auto (Bld) Ordered By: César Arreaga on 07-11-2023 Monocytes/100 WBC (Bld) 8.1 % . [facility] Natriuretic peptide B [Mass/ Vol]Ordered By: César Arreaga on 07-11-2023 Natriuretic peptide B (Bld) [Mass/Vol] 10.0 pg/mL 5-[address] [facility] Neutrophils Auto (Bld) [#/Vo l]Ordered By: César Arreaga on 07-11-2023 Neutrophils (Bld) [#/Vol] 5.6 10*3/uL 1.8-7.[address] [facility] Neutrophils/100 WBC Auto (Bl d)Ordered By: César Arreaga on 07-11-2023 Neutrophils/100 WBC (Bld) 62.7 % . [facility] Nitrite Test strip Ql (U)Ord ered By: César Arreaga on 07-11-2023 Nitrite Ql (U) Negative Negative [facility] No Panel InformationOrdered By: César Arreaga on 07-11-2023 Arterial Blood Base Excess -4.6 mmol/L -3.0-3.[address] [facility] Arterial Blood Oxygen Content 8.7 mmol/L 6.6-9.[address] [facility] Arterial Blood Oxygen Saturation 95.7 % 95.0-100.[address] [facility] Arterial Blood Partial Pressure CO2 33.2 mm[Hg] 35.0-45.[address] [facility] Arterial Blood Partial Pressure O2 77.1 mm[Hg] 80.0-100.[address] [facility] Arterial Blood pH 7.39 7.35-7.45 [facility] Blood Gas Critical Value See comment [facility] Comment on above: Critical Value mcdowell d on: 07/11/2023 at 18:36 Blood Gas Sample Site Left radial [facility] FiO2 21 % [facility] Nucleated erythrocytes [Pres ence] in Blood by Automated countOrdered By: César Arreaga on 07-11-2023 Nucleated RBC Auto Ql (Bld) 0.1 /100{WBC} 0-0.[address] [facility] Partial Thromboplastin Timeo n 07-11-2023 aPTT Coag (Bld) [Time] 28.5 s Normal 25.1-36.5 [facility] Comment on above: Result Comment: A he matocrit value greater than 55% may lead to inaccurate results in coagulation testing. Patients having hematocrit values >55% require a special collection tube for coagulation studies. Please contact the laboratory at [phone] for redraw instructions. PERFORMED BY: [address] [address] PATHOLOGIST SOFT WORK CIGAR MACHINE OPERATOR RADHA CARR M.D. Performed By: #### U A #### [facility] [address] [place] [address] Protein Auto test strip (U) [Mass/Vol]Ordered By: César Arreaga on 07-11-2023 Protein (U) [Mass/Vol] Negative Negative [facility] Protein [Mass/volume] in Ser um or PlasmaOrdered By: César Arreaga on 07-11-2023 Protein [Mass/Vol] 7.8 g/dL 6.4-8.9 [facility] Prothrombin Time INRon 07-11 INR Coag (PPP) [Relative time] 0.9 {INR} Normal [facility] Comment on above: Result Comment: [...] 4.5 Performed By: #### U A #### [facility] [address] [place], [place] [id number] [facility] PT Coag (PPP) [Time] 10.8 s Normal 9.0-12.9 [facility] Comment on above: Result Comment: A he matocrit value greater than 55% may lead to inaccurate results in coagulation testing. Patients having hematocrit values >55% require a special collection tube for coagulation studies. Please contact the laboratory at [phone] for redraw instructions. Performed By: #### U A #### [address] [address] [facility] Prothrombin time (PT)Ordered By: César Arreaga on 07-11-2023 PT Coag (PPP) [Time] 10.8 s 9.0-12.9 [facility] Comment on above: A hematocrit value g reater than 55% may lead to inaccurate results in coagulation testing. Patients having hematocrit values >55% require a special collection tube for coagulation studies. Please contact the laboratory at [phone] for redraw instructions. Serum or plasma albumin/glob ulin mass ratioOrdered By: César Arreaga on 07-11-2023 Albumin/Globulin [Mass ratio] 1.5 {ratio} [facility] Serum or plasma non-glucuron idated bilirubin measurement (mass/volume)Ordered By: César Arreaga on 07-11-2023 Bilirubin.indirect [Mass/Vol] 0.5 mg/dL [facility] Specific gravity Auto test s trip (U) [Rel density]Ordered By: César Arreaga on 07-11-2023 Specific gravity (U) [Rel density] 1.025 1.001-1.[address] [facility] Thyroid Stimulating Hormoneo n 07-11-2023 TSH Qn 1.15 m[IU]/L Normal 0.45-5.33 [facility] Comment on above: Order Comment: Comme nt add on Comment Add on Result Comment: PERF ORMED BY: [place] [address] PATHOLOGIST SOFT WORK CIGAR MACHINE OPERATOR RADHA CARR M.D. Performed By: #### L IPID, BMP, LDLD, MG, CBCNO #### [facility] [address] [place], [place] [address] [facility] Thyrotropin [Units/volume] i n Serum or PlasmaOrdered By: Shaila Bowen on 07-11-2023 TSH Qn 1.15 m[IU]/L 0.45-5.[address] [facility] Troponin I High Sensitivityo n 07-11-2023 Troponin I High Sensitivity 7.9 pg/mL Normal 0.0-20.0 [facility] Comment on above: Result Comment: PERF ORMED BY: [address] [address] PATHOLOGIST SOFT WORK CIGAR MACHINE OPERATOR RADHA CARR M.D. Performed By: #### U A #### [facility] [address] Troponin I.cardiac [Mass/vol ume] in Serum or Plasma by Detection limit <= 0.01 ng/Ordered By: César Arreaga on 07-11-2023 Troponin I.cardiac DL <= 0.01 ng/mL [Mass/Vol] 7.9 pg/mL 0.0-20.[address] [facility] Urinalysison 07-11-2023 Appearance (U) Clear Normal Clear [facility] Comment on above: Order Comment: Name Collection Type:: Clean-Voided Midstream Performed By: #### L IPID, BMP, LDLD, MG, CBCNO #### [address] Bilirubin,Urine Negative Normal Negative [facility] Comment on above: Order Comment: Name Collection Type:: Clean-Voided Midstream Performed By: #### L IPID, BMP, LDLD, MG, CBCNO #### [address] Color (U) Yellow Normal Yellow [facility] Comment on above: Order Comment: Name Collection Type:: Clean-Voided Midstream Performed By: #### L IPID, BMP, LDLD, MG, CBCNO #### [address] Glucose Ql (U) >=1000 High Normal [facility] Comment on above: Order Comment: Name Collection Type:: Clean-Voided Midstream Performed By: #### L IPID, BMP, LDLD, MG, CBCNO #### [address] Ketones Ql (U) Negative Normal Negative [facility] Comment on above: Order Comment: Name Collection Type:: Clean-Voided Midstream Performed By: #### L IPID, BMP, LDLD, MG, CBCNO #### [address] Leukocyte esterase Test strip Ql (U) Negative Normal Negative [facility] Comment on above: Order Comment: Name Collection Type:: Clean-Voided Midstream Performed By: #### L IPID, BMP, LDLD, MG, CBCNO #### [address] Nitrite,Urine Negative Normal Negative [facility] Comment on above: Order Comment: Name Collection Type:: Clean-Voided Midstream Performed By: #### L IPID, BMP, LDLD, MG, CBCNO #### [address] Occult Blood,Urine Negative Normal Negative [facility] Comment on above: Order Comment: Name Collection Type:: Clean-Voided Midstream Result Comment: PERF ORMED BY: [place] [address] PATHOLOGIST SOFT WORK CIGAR MACHINE OPERATOR RADHA CARR M.D. Performed By: #### L IPID, BMP, LDLD, MG, CBCNO #### [address] pH (U) 5.5 [pH] Normal 5.0-9.0 [facility] Comment on above: Order Comment: Name Collection Type:: Clean-Voided Midstream Performed By: #### L IPID, BMP, LDLD, MG, CBCNO #### [address] Protein,Urine Negative Normal Negative [facility] Comment on above: Order Comment: Name Collection Type:: Clean-Voided Midstream Performed By: #### L IPID, BMP, LDLD, MG, CBCNO #### [address] [place],Urine 1.025 Normal 1.001-1.030 [facility] Comment on above: Order Comment: Name Collection Type:: Clean-Voided Midstream Performed By: #### L IPID, BMP, LDLD, MG, CBCNO #### [address] Urobilinogen,Urine Normal Normal Normal [facility] Comment on above: Order Comment: Name Collection Type:: Clean-Voided Midstream Performed By: #### L IPID, BMP, LDLD, MG, CBCNO #### [facility] [address] Urine clarity by refractomet ry automatedOrdered By: César Arreaga on 07-11-2023 Clarity Refractometry automated (U) Clear Clear [facility] Urine glucose measurement by automated test strip (mass/volume)Ordered By: César Arreaga on 07-11-2023 Glucose Auto test strip (U) [Mass/Vol] >=1000 mg/dL Normal [facility] Urine hemoglobin detection b y automated test stripOrdered By: César Arreaga on 07-11-2023 Hemoglobin Auto test strip Ql (U) Negative Negative [facility] Urine leukocyte esterase det ection by automated test stripOrdered By: César Arreaga on 07-11-2023 Leukocyte esterase Auto test strip Ql (U) Negative Negative [facility] Urobilinogen Auto test strip (U) [Mass/Vol]Ordered By: César Arreaga on 07-11-2023 Urobilinogen (U) [Mass/Vol] Normal mg/dL Normal [facility] Vit. B12/Folate Profileon Cobalamin (Vitamin B12) [Mass/Vol] 206 pg/mL Normal 180-914 [facility] Comment on above: Order Comment: Commsudhir nt add on Comment Add on Performed By: #### L IPID, BMP, LDLD, MG, CBCNO #### [facility] [address] Folate 20.1 ng/mL Normal >5.9 [facility] Comment on above: Order Comment: Commsudhir nt add on Comment Add on Result Comment: Lavern te reference range: >5.9 ng/ml The WHO technical consultation on folate and vitamin b12 deficiencies has determined that folate concentrations less than 4 ng/ml are considered deficient. Performed By: #### L IPID, BMP, LDLD, MG, CBCNO #### [facility] [address] [place] [address] [place] Vitamin B12 ser/plasOrdered By: Shaila Bowen on 07-11-2023 Cobalamin (Vitamin B12) [Mass/Vol] 206 pg/mL 180-[address] [facility] WBC Auto (Bld) [#/Vol]Ordere d By: César Arreaga on 07-11-2023 WBC (Bld) [#/Vol] 8.9 10*3/uL 4.1-10.5 [facility] XR chest 1V portableon 07-11 XR chest 1V portable [facility] [place] [address] [place] [id number] XRay Report Signed Patient: Rod Mathias MR#: [id number] 1426 : 1960 Acct:[id number] Age/Sex: 62 / M ADM Date: 07/11/23 Loc: Room: [address] [place] [address] Type: ADM INOo Attending Dr: Shaila oBwen MD Copies to: DO Shaila Parr MD [...] Darien Roldan M.D.07/11/2023 8:41 PM Dictation Location: [place] [address] Transcribed By: [facility] 07/11/232040 Dictated By: Darien Roldan II, MD 07/11/232038 Signed By: 07/11/232040 Normal [facility] pH Auto test strip (U)Ordere d By: César Arreaga on 07-11-2023 pH (U) 5.5 [pH] 5.0-9.[address] [facility] Activated partial thrombopla stin time (aPTT) in platelet poor plasma by coagulation aOrdered By: Mark Anthony Naylor on 06-07-2023 aPTT Coag (PPP) [Time] 30.6 s 25.1-36.5 [facility] Basic Metabolic Panelon 05-21 Anion gap [Moles/Vol] 15.0 mmol/L Normal 6.0-15.0 [facility] Comment on above: Performed By: #### L IPID, BMP, LDLD, MG, CBCNO #### [address] Calcium [Mass/Vol] 9.6 mg/dL Normal 8.6-10.3 [facility] Comment on above: Result Comment: PERF ORMED BY: [place] [address] PATHOLOGIST SOFT WORK CIGAR MACHINE OPERATOR RADHA CARR M.D. Performed By: #### L IPID, BMP, LDLD, MG, CBCNO #### [address] Chloride [Moles/Vol] 106 mmol/L Normal 98-107 [facility] Comment on above: Performed By: #### L IPID, BMP, LDLD, MG, CBCNO #### [address] CO2 [Moles/Vol] 22.5 mmol/L Normal 21.0-31.0 [facility] Comment on above: Performed By: #### L IPID, BMP, LDLD, MG, CBCNO #### [address] Creatinine [Mass/Vol] 1.52 mg/dL High 0.70-1.30 [facility] Comment on above: Performed By: #### L IPID, BMP, LDLD, MG, CBCNO #### [place] [address] [place] GFR/1.73 sq M.predicted MDRD (S/P/Bld) [Vol rate/Area] 50.852 mL/min/{1.73_m2} Normal [facility] Comment on above: Performed By: #### L IPID, BMP, LDLD, MG, CBCNO #### [facility] [address] [place] [address] [place] Glucose [Mass/Vol] 185 mg/dL High 70-100 [facility] Comment on above: Result Comment: [facility] Glucose Reference Range is dependent on time and content of last meal. Glucose of more than 200 mg/dL in a nonstressed, ambulatory subject supports the diagnosis of Diabetes Mellitus. ADA recommended reference range Performed By: #### L IPID, BMP, LDLD, MG, CBCNO #### [facility] [address] Potassium [Moles/Vol] 4.5 mmol/L Normal 3.5-5.1 [facility] Comment on above: Performed By: #### L IPID, BMP, LDLD, MG, CBCNO #### [facility] [address] [place] [address] [place] Sodium [Moles/Vol] 139 mmol/L Normal 136-145 [facility] Comment on above: Performed By: #### L IPID, BMP, LDLD, MG, CBCNO #### [facility] [address] [place] [address] [place] Urea nitrogen [Mass/Vol] 16 mg/dL Normal 7-25 [facility] Comment on above: Performed By: #### L IPID, BMP, LDLD, MG, CBCNO #### [facility] [address] [place] [address] [place] Basophils Auto (Bld) [#/Vol] Ordered By: Mark Anthony Naylor on 06-07-2023 Basophils (Bld) [#/Vol] 0.1 10*3/uL 0.0-0.[address] [facility] Basophils/100 WBC Auto (Bld) Ordered By: Mark Anthony Naylor on 06-07-2023 Basophils/100 WBC (Bld) 0.5 % . [facility] Calcium [Mass/volume] in Ser um or PlasmaOrdered By: Mark Anthony Naylro on 06-07-2023 Calcium [Mass/Vol] 9.6 mg/dL 8.6-10.3 [facility] Carbon dioxide, total [Moles /volume] in Serum or PlasmaOrdered By: Mark Anthony Naylor on 06-07-2023 CO2 [Moles/Vol] 22.5 mmol/L 21.0-31.0 [facility] Chloride [Moles/volume] in S ayanna or PlasmaOrdered By: Mark Anthony Naylor on 06-07-2023 Chloride [Moles/Vol] 106 mmol/L 98-107 [facility] Complete Blood Count Auto Di ffon 06-07-2023 Basophils (Bld) [#/Vol] 0.1 10*3/uL Normal 0.0-0.2 [facility] Comment on above: Result Comment: PERF ORMED BY: [place] [address] PATHOLOGIST SOFT WORK CIGAR MACHINE OPERATOR RADHA CARR M.D. Performed By: #### L IPID, BMP, LDLD, MG, CBCNO #### [address] Basophils/100 WBC (Bld) 0.5 % Normal . [facility] Comment on above: Performed By: #### L IPID, BMP, LDLD, MG, CBCNO #### [address] Eosinophils (Bld) [#/Vol] 0.1 10*3/uL Normal 0.0-0.45 [facility] Comment on above: Performed By: #### L IPID, BMP, LDLD, MG, CBCNO #### [address] Eosinophils/100 WBC (Bld) 0.5 % Normal . [facility] Comment on above: Performed By: #### L IPID, BMP, LDLD, MG, CBCNO #### [address] Erythrocyte distribution width (RBC) [Ratio] 13.8 % Normal 12.0-14.8 [facility] Comment on above: Performed By: #### L IPID, BMP, LDLD, MG, CBCNO #### [address] [place] [address] [place] Hematocrit (Bld) [Volume fraction] 43.2 % Normal 38.8-50.0 [facility] Comment on above: Performed By: #### L IPID, BMP, LDLD, MG, CBCNO #### [address] Hemoglobin (Bld) [Mass/Vol] 14.5 g/dL Normal 13.0-17.0 [facility] Comment on above: Performed By: #### L IPID, BMP, LDLD, MG, CBCNO #### [address] Lymphocytes (Bld) [#/Vol] 2.2 10*3/uL Normal 1.00-4.8 [facility] Comment on above: Performed By: #### L IPID, BMP, LDLD, MG, CBCNO #### [address] Lymphocytes/100 WBC (Bld) 18.4 % Normal . [facility] Comment on above: Performed By: #### L IPID, BMP, LDLD, MG, CBCNO #### [address] MCH (RBC) [Entitic mass] 30.8 pg Normal 27.5-35.2 [facility] Comment on above: Performed By: #### L IPID, BMP, LDLD, MG, CBCNO #### [address] MCV (RBC) [Entitic vol] 92.0 fL Normal 83.5-101 [facility] Comment on above: Performed By: #### L IPID, BMP, LDLD, MG, CBCNO #### [address] Mean Corpuscular HGB Conc 33.5 g/dL Normal 32.5-35.6 [facility] Comment on above: Performed By: #### L IPID, BMP, LDLD, MG, CBCNO #### [place] [address] [place] Monocytes (Bld) [#/Vol] 0.7 10*3/uL Normal 0.0-0.8 [facility] Comment on above: Performed By: #### L IPID, BMP, LDLD, MG, CBCNO #### [facility] [address] Monocytes/100 WBC (Bld) 5.9 % Normal . [facility] Comment on above: Performed By: #### L IPID, BMP, LDLD, MG, CBCNO #### [address] Neutrophils (Bld) [#/Vol] 9.0 10*3/uL High 1.8-7.7 [facility] Comment on above: Performed By: #### L IPID, BMP, LDLD, MG, CBCNO #### [address] Neutrophils/100 WBC (Bld) 74.7 % Normal . [facility] Comment on above: Performed By: #### L IPID, BMP, LDLD, MG, CBCNO #### [place] [address] [place] NRBC% 0.1 /100{WBC} Normal 0-0.5 [facility] Comment on above: Performed By: #### L IPID, BMP, LDLD, MG, CBCNO #### [place] [address] [place] Platelet mean volume (Bld) [Entitic vol] 8.5 fL Normal 6.6-10.1 [facility] Comment on above: Performed By: #### L IPID, BMP, LDLD, MG, CBCNO #### [place] [address] [place] Platelets (Bld) [#/Vol] 232 10*3/uL Normal 150-450 [facility] Comment on above: Performed By: #### L IPID, BMP, LDLD, MG, CBCNO #### [place] [address] [place] RBC (Bld) [#/Vol] 4.70 10*6/uL Normal 3.90-5.60 [facility] Comment on above: Performed By: #### L IPID, BMP, LDLD, MG, CBCNO #### [facility] [address] WBC (Bld) [#/Vol] 12.0 10*3/uL High 4.1-10.5 [facility] Comment on above: Performed By: #### L IPID, BMP, LDLD, MG, CBCNO #### [facility] [address] Creatinine [Mass/volume] in Serum or PlasmaOrdered By: Mark Anthony Naylor on 06-07-2023 Creatinine [Mass/Vol] 1.52 mg/dL 0.70-1.30 [facility] Eosinophils Auto (Bld) [#/Vo l]Ordered By: Mark Anthony Naylor on 06-07-2023 Eosinophils (Bld) [#/Vol] 0.1 10*3/uL 0.0-0.[address] [facility] Eosinophils/100 WBC Auto (Bl d)Ordered By: Mark Anthony Naylor on 06-07-2023 Eosinophils/100 WBC (Bld) 0.5 % . [facility] Erythrocyte distribution wid th Auto (RBC) [Ratio]Ordered By: Mark Anthony Naylor on 06-07-2023 Erythrocyte distribution width (RBC) [Ratio] 13.8 % 12.0-14.[address] [facility] Glucose [Mass/volume] in Ser um or PlasmaOrdered By: Mark Anthony Naylor on 06-07-2023 Glucose [Mass/Vol] 185 mg/dL 70-100 [facility] Comment on above: ADA recommended refe rence rangeRandom Glucose Reference Range is dependent on time and content of last meal. Glucose of more than 200 mg/dL in a nonstressed, ambulatory subject supports the diagnosis of Diabetes Mellitus. Hematocrit Auto (Bld) [Volum e fraction]Ordered By: Mark Anthony Naylor on 06-07-2023 Hematocrit (Bld) [Volume fraction] 43.2 % 38.8-50.[address] [facility] Hemoglobin [Mass/volume] in BloodOrdered By: Mark Anthony Naylor on 06-07-2023 Hemoglobin (Bld) [Mass/Vol] 14.5 g/dL 13.0-17.[address] [facility] INR in Platelet poor plasma by Coagulation assayOrdered By: Mark Anthony Naylor on 06-07-2023 INR Coag (PPP) [Relative time] 1.0 {INR} [facility] Comment on above: INR Therapeutic Rang [...] Laboratory - CoagulationOrde red By: Mark Anthony Naylor on 06-07-2023 PT Coag (PPP) [Time] 11.3 s 9.0-12.9 [facility] Leukocytes [#/volume] correc desean for nucleated erythrocytes in Blood by Automated counOrdered By: Mark Anthony Naylor on 06-07-2023 WBC corrected for nucl RBC Auto (Bld) [#/Vol] 12.0 10*3/uL 4.1-10.[address] [facility] Lymphocytes Auto (Bld) [#/Vo l]Ordered By: Mark Anthony Naylor on 06-07-2023 Lymphocytes (Bld) [#/Vol] 2.2 10*3/uL 1.00-4.[address] [facility] Lymphocytes/100 WBC Auto (Bl d)Ordered By: Mark Anthony Naylor on 06-07-2023 Lymphocytes/100 WBC (Bld) 18.4 % . [facility] MCH Auto (RBC) [Entitic mass ]Ordered By: Mark Anthony Naylor on 06-07-2023 MCH (RBC) [Entitic mass] 30.8 pg 27.5-35.[address] [facility] MCHC Auto (RBC) [Mass/Vol]Or dered By: Mark Anthony Naylor on 06-07-2023 MCHC (RBC) [Mass/Vol] 33.5 g/dL 32.5-35.6 [facility] MCV Auto (RBC) [Entitic vol] Ordered By: Mark Anthony Naylro on 06-07-2023 MCV (RBC) [Entitic vol] 92.0 fL 83.5-[address] [facility] Monocytes Auto (Bld) [#/Vol] Ordered By: Mark Anthony Naylor on 06-07-2023 Monocytes (Bld) [#/Vol] 0.7 10*3/uL 0.0-0.[address] [facility] Monocytes/100 WBC Auto (Bld) Ordered By: Mark Anthony Naylor on 06-07-2023 Monocytes/100 WBC (Bld) 5.9 % . [facility] Neutrophils Auto (Bld) [#/Vo l]Ordered By: Mark Anthony Naylor on 06-07-2023 Neutrophils (Bld) [#/Vol] 9.0 10*3/uL 1.8-7.[address] [facility] Neutrophils/100 WBC Auto (Bl d)Ordered By: Mark Anthony Naylor on 06-07-2023 Neutrophils/100 WBC (Bld) 74.7 % . [facility] No Panel InformationOrdered By: Mark Anthony Naylor on 06-07-2023 Estimated GFR (CKD-EPI) 50.852 mL/Min [facility] Creatinine Clearance (Chem N/A [facility] Nucleated erythrocytes [Pres ence] in Blood by Automated countOrdered By: Mark Anthony Naylor on 06-07-2023 Nucleated RBC Auto Ql (Bld) 0.1 /100{WBC} 0-0.[address] [facility] Partial Thromboplastin Timeo n 06-07-2023 aPTT Coag (Bld) [Time] 30.6 s Normal 25.1-36.5 [facility] Comment on above: Result Comment: PERF ORMED BY: [place] [address] PATHOLOGIST SOFT WORK CIGAR MACHINE OPERATOR RADHA CARR M.D. Performed By: #### L IPID, BMP, LDLD, MG, CBCNO #### [address] Platelet mean volume Auto (B ld) [Entitic vol]Ordered By: Mark Anthony Naylor on 06-07-2023 Platelet mean volume (Bld) [Entitic vol] 8.5 fL 6.6-10.[address] [facility] Platelets Auto (Bld) [#/Vol] Ordered By: Mark Anthony Naylor on 06-07-2023 Platelets (Bld) [#/Vol] 232 10*3/uL 150-[address] [facility] Potassium [Moles/volume] in Serum or PlasmaOrdered By: Mark Anthony Naylor on 06-07-2023 Potassium [Moles/Vol] 4.5 mmol/L 3.5-5.1 [facility] Prothrombin Time INRon 06-07 INR Coag (PPP) [Relative time] 1.0 {INR} Normal [facility] Comment on above: Result Comment: [...] L IPID, BMP, LDLD, MG, CBCNO #### [facility] [address] PT Coag (PPP) [Time] 11.3 s Normal 9.0-12.9 [facility] Comment on above: Performed By: #### L IPID, BMP, LDLD, MG, CBCNO #### [facility] [address] RBC Auto (Bld) [#/Vol]Ordere d By: Mark Anthony Naylor on 06-07-2023 RBC (Bld) [#/Vol] 4.70 10*6/uL 3.90-5.60 [facility] Serum or plasma anion gap de terminationOrdered By: Mark Anthony Naylor on 06-07-2023 Anion gap [Moles/Vol] 15.0 mmol/L 6.0-15.0 [facility] Sodium [Moles/volume] in Ser um or PlasmaOrdered By: Mark Anthony Naylor on 06-07-2023 Sodium [Moles/Vol] 139 mmol/L 136-145 [facility] Urea nitrogen [Mass/volume] in Serum or PlasmaOrdered By: Mark Anthony Naylor on 06-07-2023 Urea nitrogen [Mass/Vol] 16 mg/dL 7-[address] [facility] WBC Auto (Bld) [#/Vol]Ordere d By: Mark Anthony Naylor on 06-07-2023 WBC (Bld) [#/Vol] 12.0 10*3/uL 4.1-10.5 [facility] Office Visit (Cardiology)on 04-11-2023 Follow-up visit Diagnoses/Problems [...] in adult Healthy Weight Tips; Status:Complete; Done: [id number] Some eating tips that can help you lose weight.; Status:Complete; Done: [id number] SocHx: Former smoker Tobacco Use Screening; Status:Complete; Done: [id number] Patient Instructions Please bring all medicines, vitamins, [...] ROD MATHIAS is being seen for mpx results/[facility] d/c 02/06. Patient is a 62-year-old gentleman here for follow-up following recent stress testing. He was seen in consultation in the hospital in January, ruled out for NM, had low CATHERINE risk score; has underlying [...] Recorded: 11Apr2023 11:24AM Heart Rate66, L Radial Iwnxgfde782, LUE, Sitting Lszhehhby87, LUE, Sitting Height5 ft 10.5 in Cctmex485 lb BMI Uzfaxvkabu15.4 kg/m2 BSA Calculated2.19 Tobacco Useb) No PHQ-2 [...] . Signatures Electronically signed by : Demarco Galicia DO; Apr 11 2023 12:32PM EST (Author) Normal [employer] Tobacco Screening.on 023 Adult depression screening assessment No -[facility]-Feedsky[employer] julianne 250 DO Work Phone: Fall risk assessment a) No falls within the last year [facility] [employer] julianne 250 DO Work Phone: Tobacco use status CPHS b) No -[facility]-Sandu julianne 250 DO Work Phone: CT abdomen pelvis wo conon 0 04-04-2023 CT abdomen pelvis wo con [facility] [place] [address] [place] [address] CT Scan Report Signed Patient: Rod Mathias MR#: [id number] : 1960 Acct:[id number] Age/Sex: 62 / M ADM Date: 04/04/23 Loc: [facility] Room: Type: [facility] Attending Dr: Mark Anthony Naylor MD Copies to: Mark Anthony Naylor MD Ordering Provider: Mark Anthony Naylor MD Date of Service: 04/04/23 CT/CT abdomen [...] Angelica Bar M.D.04/04/2023 12:03 PM Dictation Location: [place] [address] Transcribed By: [facility] 04/04/23 1203 Dictated By: Angelica Bar MD 04/04/23 1153 Signed By: 04/04/23 1203 Normal [facility] CARDIAC STRESS/REST INJE CTIONon 02-13-2023 [facility] CARDIAC STRESS/REST INJECTION Patient Name: ROD CUELLAR STUDY: MYOCARDIAL PERFUSION STRESS TEST WITH EXERCISE CONVERTED TO LEXISCAN Performing facility: [facility], [address] [place] [address], [address], [place], [place] [address] Provider: Teresa Galicia DO, FACC PCP: Dr. Zi Hernandez Supervising provider: Joann Hopson MD INDICATION: Chest Pain; Diabetes HTN Hyperlipidemia HISTORY: Gender: M; Age: 62 y/o ; Height: 0 cm; Weight: 0 kg. High Cholesterol; HTN; Diabetes; Chest Pain; Currently smoking. COMPARISON: No comparison. ACCESSION NUMBER(S): [id number]; [id number]; [id number] ORDERING CLINICIAN: DEMARCO GALICIA TECHNIQUE: TWO DAY protocol. Stress injection: Date: [...] available for comparison. Electronically signed by: NILO ROACH MD Normal [facility] No Panel Informationon 02-13 Normal [facility] Heart-Sandu julianne 250 DO Work Phone: Basophils Auto (Bld) [#/Vol] Ordered By: Lilia Bowers on 02-06-2023 Basophils (Bld) [#/Vol] 0.0 10*3/uL 0.0-0.[address] [facility] Basophils/100 WBC Auto (Bld) Ordered By: iLlia Bowers on 02-06-2023 Basophils/100 WBC (Bld) 0.5 % . [facility] Calcium [Mass/volume] in Ser um or PlasmaOrdered By: Lilia Bowers on 02-06-2023 Calcium [Mass/Vol] 8.4 mg/dL 8.6-10.3 [facility] Carbon dioxide, total [Moles /volume] in Serum or PlasmaOrdered By: Lilia Bowers on 02-06-2023 CO2 [Moles/Vol] 21.0 mmol/L 21.0-31.0 [facility] Chloride [Moles/volume] in S ayanna or PlasmaOrdered By: Lilia Bowers on 02-06-2023 Chloride [Moles/Vol] 110 mmol/L 98-107 [facility] Cholesterol [Mass/volume] in Serum or PlasmaOrdered By: Lilia Bowers on 02-06-2023 Cholesterol [Mass/Vol] 146 mg/dL 140-200 [facility] Comment on above: Chol less than 200 m g/dl low riskChol 201-239 mg/dl borderline riskChol 240 mg/dl and greater high risk Cholesterol in LDL Calc [Mas s/Vol]Ordered By: Lilia Bowers on 02-06-2023 Cholesterol in LDL [Mass/Vol] 66 mg/dL 0-[address] [facility] Comment on above: LDL ATP III CLASSIFI CATIONLDL less than 100 mg/dL OptimalLDL 100-129 mg/dL Near or above optimalLDL 130-159 mg/dL Borderline highLDL 160-189 mg/dL HighLDL greater than 189 mg/dL Very high Cholesterol in VLDL Calc [Ma ss/Vol]Ordered By: Lilia Bowers on 02-06-2023 Cholesterol in VLDL [Mass/Vol] 43 mg/dL [facility] Creatinine [Mass/volume] in Serum or PlasmaOrdered By: Lilia Bowers on 02-06-2023 Creatinine [Mass/Vol] 1.43 mg/dL 0.70-1.30 [facility] Eosinophils Auto (Bld) [#/Vo l]Ordered By: Lilia Bowers on 02-06-2023 Eosinophils (Bld) [#/Vol] 0.1 10*3/uL 0.0-0.[address] [facility] Eosinophils/100 WBC Auto (Bl d)Ordered By: Lilia Bowers on 02-06-2023 Eosinophils/100 WBC (Bld) 1.0 % . [facility] Erythrocyte distribution wid th Auto (RBC) [Ratio]Ordered By: Lilia Bowers on 02-06-2023 Erythrocyte distribution width (RBC) [Ratio] 14.0 % 12.0-14.[address] [facility] Glucose Glucometer (BldC) [M ass/Vol]Ordered By: Lilia Bowers on 02-06-2023 Glucose [Mass/Vol] 136 mg/dL [facility] Comment on above: Random Glucose Refer ence Range is dependent on time and content of last meal. Glucose of more than 200 mg/dL in a nonstressed, ambulatory subject supports the diagnosis of Diabetes Mellitus. Glucose [Mass/volume] in Ser um or PlasmaOrdered By: Lliia Bowers on 02-06-2023 Glucose [Mass/Vol] 123 mg/dL 70-100 [facility] Comment on above: ADA recommended refe rence rangeRandom Glucose Reference Range is dependent on time and content of last meal. Glucose of more than 200 mg/dL in a nonstressed, ambulatory subject supports the diagnosis of Diabetes Mellitus. Hematocrit Auto (Bld) [Volum e fraction]Ordered By: Lilia Bowers on 02-06-2023 Hematocrit (Bld) [Volume fraction] 40.0 % 38.8-50.[address] [facility] Hemoglobin [Mass/volume] in BloodOrdered By: Lilia Bowers on 02-06-2023 Hemoglobin (Bld) [Mass/Vol] 13.3 g/dL 13.0-17.[address] [facility] Leukocytes [#/volume] correc desean for nucleated erythrocytes in Blood by Automated counOrdered By: Lilia Bowers on 02-06-2023 WBC corrected for nucl RBC Auto (Bld) [#/Vol] 8.4 10*3/uL 4.1-10.[address] [facility] Lymphocytes Auto (Bld) [#/Vo l]Ordered By: Lilia Bowers on 02-06-2023 Lymphocytes (Bld) [#/Vol] 3.4 10*3/uL 1.00-4.[address] [facility] Lymphocytes/100 WBC Auto (Bl d)Ordered By: Lilia Bowers on 02-06-2023 Lymphocytes/100 WBC (Bld) 40.8 % . [facility] MCH Auto (RBC) [Entitic mass ]Ordered By: Lilia Bowers on 02-06-2023 MCH (RBC) [Entitic mass] 30.0 pg 27.5-35.[address] [facility] MCHC Auto (RBC) [Mass/Vol]Or dered By: Lilia Bowers on 02-06-2023 MCHC (RBC) [Mass/Vol] 33.3 g/dL 32.5-35.6 [facility] MCV Auto (RBC) [Entitic vol] Ordered By: Lilia Bowers on 02-06-2023 MCV (RBC) [Entitic vol] 90.1 fL 83.5-[address] [facility] Monocytes Auto (Bld) [#/Vol] Ordered By: Lilia Bowers on 02-06-2023 Monocytes (Bld) [#/Vol] 0.8 10*3/uL 0.0-0.[address] [facility] Monocytes/100 WBC Auto (Bld) Ordered By: Lilia Bowers on 02-06-2023 Monocytes/100 WBC (Bld) 9.0 % . [facility] Neutrophils Auto (Bld) [#/Vo l]Ordered By: Lilia Bowers on 02-06-2023 Neutrophils (Bld) [#/Vol] 4.1 10*3/uL 1.8-7.[address] [facility] Neutrophils/100 WBC Auto (Bl d)Ordered By: Lilia Bowers on 02-06-2023 Neutrophils/100 WBC (Bld) 48.7 % . [facility] No Panel InformationOrdered By: Lilia Bowers on 02-06-2023 Bedside Glucose Comment Glu2: cleaned meter [facility] Estimated GFR (CKD-EPI) 54.715 mL/Min [facility] Creatinine Clearance (Chem 63.[address] [facility] Nucleated erythrocytes [Pres ence] in Blood by Automated countOrdered By: Lilia Bowers on 02-06-2023 Nucleated RBC Auto Ql (Bld) 0.1 /100{WBC} 0-0.[address] [facility] Platelet mean volume Auto (B ld) [Entitic vol]Ordered By: Lilia Bowers on 02-06-2023 Platelet mean volume (Bld) [Entitic vol] 8.2 fL 6.6-10.[address] [facility] Platelets Auto (Bld) [#/Vol] Ordered By: Lilia Bowers on 02-06-2023 Platelets (Bld) [#/Vol] 207 10*3/uL 150-[address] [facility] Potassium [Moles/volume] in Serum or PlasmaOrdered By: Lilia Bowers on 02-06-2023 Potassium [Moles/Vol] 4.0 mmol/L 3.5-5.1 [facility] RBC Auto (Bld) [#/Vol]Ordere d By: Lilia Bowers on 02-06-2023 RBC (Bld) [#/Vol] 4.44 10*6/uL 3.90-5.60 [facility] [facility] Serum or plasma anion gap de terminationOrdered By: Lilia Bowers on 02-06-2023 Anion gap [Moles/Vol] TNP [facility] Comment on above: Test not performed Serum or plasma high density lipoprotein (HDL) cholesterol measurementOrdered By: Lilia Bowers on 02-06-2023 Cholesterol in HDL [Mass/Vol] 36 mg/dL 29-[address] [facility] Comment on above: HDL CHOL ATP-III CLA SSIFICATION Cardiovascular RiskHDL > or equal to 60 mg/dL LOWHDL < 40 mg/dL HIGH Serum or plasma total choles terol/high density lipoprotein (HDL) cholesterol mass ratOrdered By: Lilia Bowers on 02-06-2023 Cholesterol.total/Chol esterol in HDL [Mass ratio] 4.1 {ratio} <5.[address] [facility] Sodium [Moles/volume] in Ser um or PlasmaOrdered By: Lilia Bowers on 02-06-2023 Sodium [Moles/Vol] 138 mmol/L 136-145 [facility] Triglyceride [Mass/volume] i n Serum or PlasmaOrdered By: Lilia Bowers on 02-06-2023 Triglyceride [Mass/Vol] 218 mg/dL 0-[address] [facility] Comment on above: TRIG ATP III [...] ng/mL [Mass/Vol] 5.6 pg/mL 0.0-20.[address] [facility] Urea nitrogen [Mass/volume] in Serum or PlasmaOrdered By: Lilia Bowers on 02-06-2023 Urea nitrogen [Mass/Vol] 15 mg/dL 7-[address] [facility] WBC Auto (Bld) [#/Vol]Ordere d By: Lilia Bowers on 02-06-2023 WBC (Bld) [#/Vol] 8.4 10*3/uL 4.1-10.5 [facility] Alanine aminotransferase [En zymatic activity/volume] in Serum or PlasmaOrdered By: Deniz Lacey on 02-05-2023 ALT [Catalytic activity/Vol] 18 U/L 7-[address] [facility] Albumin [Mass/volume] in Ser um or Plasma by Bromocresol green (BCG) dye binding methoOrdered By: Deniz Lacey on 02-05-2023 Albumin BCG dye [Mass/Vol] 4.9 g/dL 3.5-5.[address] [facility] Alkaline phosphatase [Enzyma tic activity/volume] in Serum or PlasmaOrdered By: Deniz Lacey on 02-05-2023 ALP [Catalytic activity/Vol] 72 U/L 34-[address] [facility] Aspartate aminotransferase [ Enzymatic activity/volume] in Serum or PlasmaOrdered By: Deniz Lacey on 02-05-2023 AST [Catalytic activity/Vol] 16 U/L 13-[address] [facility] Bilirubin.total [Mass/volume ] in Serum or PlasmaOrdered By: Deniz Lacey on 02-05-2023 Bilirubin [Mass/Vol] 0.9 mg/dL 0.3-1.0 [facility] Creatine kinase [Enzymatic a ctivity/volume] in Serum or PlasmaOrdered By: Deniz Lacey on 02-05-2023 CK [Catalytic activity/Vol] 64 U/L 30-[address] [facility] Globulin Calc (S) [Mass/Vol] Ordered By: Deniz Lacey on 02-05-2023 Globulin (S) [Mass/Vol] 3.2 g/dL [facility] Magnesium [Mass/volume] in S ayanna or PlasmaOrdered By: Lilia Bowers on 02-05-2023 Magnesium [Mass/Vol] 1.9 mg/dL 1.9-2.7 [facility] Monocyte distribution width [Entitic volume] in Blood by AutomatedOrdered By: Deniz Lacey on 02-05-2023 Monocyte distribution width Auto (Bld) [Entitic vol] 20.55 % 0.00-20.[address] [facility] Comment on above: For adults in ED, MD W > 20.0 may be associated with a higher risk of sepsis during the first 12 hrs of hospital admission Natriuretic peptide B [Mass/ Vol]Ordered By: Deniz Lacey on 02-05-2023 Natriuretic peptide B (Bld) [Mass/Vol] 15.0 pg/mL 5-[address] [facility] Protein [Mass/volume] in Ser um or PlasmaOrdered By: Deniz Lacey on 02-05-2023 Protein [Mass/Vol] 8.1 g/dL 6.4-8.9 [facility] Serum or plasma albumin/glob ulin mass ratioOrdered By: Deniz Lacey on 02-05-2023 Albumin/Globulin [Mass ratio] 1.5 {ratio} [facility] XR Spine Lumbar 4+ Views*on 11-02-2022 XR [...] by Ganga Olsen on 11/02/2022 1158 Normal [facility] Glucose mean value [Mass/vol ume] in Blood Estimated from glycated hemoglobinOrdered By: Terell Amor on 10-08-2022 Average glucose Estimated from glycated hemoglobin (Bld) [Mass/Vol] 194 mg/dL [facility] Hemoglobin A1c percentageOrd ered By: Terell Amor on 10-08-2022 HbA1c (Bld) [Mass fraction] 8.4 % 4.3-5.[address] [facility] Comment on above: Increased risk for d iabetes: 5.7 - 6.4diabetes: >6.4glycemic control for adults with diabetes: <7.0 Basophils Auto (Bld) [#/Vol] Ordered By: Pam Singh on 10-03-2022 Basophils (Bld) [#/Vol] 0.0 10*3/uL 0.0-0.[address] [facility] Basophils/100 WBC Auto (Bld) Ordered By: Pam Singh on 10-03-2022 Basophils/100 WBC (Bld) 0.3 % . [facility] Creatinine and Glomerular fi ltration rate.predicted panel (S/P/Bld)Ordered By: Pam Singh on 10-03-2022 Creatinine [Mass/Vol] 1.48 mg/dL 0.64-1.27 [facility] Eosinophils Auto (Bld) [#/Vo l]Ordered By: Pam Singh on 10-03-2022 Eosinophils (Bld) [#/Vol] 0.2 10*3/uL 0.0-0.[address] [facility] Eosinophils/100 WBC Auto (Bl d)Ordered By: Pam Singh on 10-03-2022 Eosinophils/100 WBC (Bld) 1.5 % . [facility] Erythrocyte distribution wid th Auto (RBC) [Ratio]Ordered By: Pam Singh on 10-03-2022 Erythrocyte distribution width (RBC) [Ratio] 14.8 % 12.0-14.[address] [facility] Estimated glomerular filtrat ion rate (GFR) non- AmericanOrdered By: Pam Singh on 10-03-2022 GFR/1.73 sq M.predicted among non-blacks MDRD (S/P/Bld) [Vol rate/Area] 48 mL/Min [facility] Glucose Glucometer (BldC) [M ass/Vol]Ordered By: Shaila Bowen on 10-03-2022 Glucose [Mass/Vol] 171 mg/dL [facility] Comment on above: Random Glucose Refer ence Range is dependent on time and content of last meal. Glucose of more than 200 mg/dL in a nonstressed, ambulatory subject supports the diagnosis of Diabetes Mellitus. Hematocrit Auto (Bld) [Volum e fraction]Ordered By: Pam Singh on 10-03-2022 Hematocrit (Bld) [Volume fraction] 42.1 % 38.8-50.[address] [facility] Hemoglobin [Mass/volume] in BloodOrdered By: Pam Singh on 10-03-2022 Hemoglobin (Bld) [Mass/Vol] 14.2 g/dL 13.0-17.[address] [facility] Leukocytes [#/volume] correc desean for nucleated erythrocytes in Blood by Automated counOrdered By: Pam Singh on 10-03-2022 WBC corrected for nucl RBC Auto (Bld) [#/Vol] 10.1 10*3/uL 4.1-10.[address] [facility] Lymphocytes Auto (Bld) [#/Vo l]Ordered By: Pam Singh on 10-03-2022 Lymphocytes (Bld) [#/Vol] 2.9 10*3/uL 1.00-4.[address] [facility] Lymphocytes/100 WBC Auto (Bl d)Ordered By: Pam Singh on 10-03-2022 Lymphocytes/100 WBC (Bld) 28.4 % . [facility] MCH Auto (RBC) [Entitic mass ]Ordered By: Pam Singh on 10-03-2022 MCH (RBC) [Entitic mass] 30.3 pg 27.5-35.[address] [facility] MCHC Auto (RBC) [Mass/Vol]Or dered By: Pam Singh on 10-03-2022 MCHC (RBC) [Mass/Vol] 33.6 g/dL 32.5-35.6 [facility] MCV Auto (RBC) [Entitic vol] Ordered By: Pam Singh on 10-03-2022 MCV (RBC) [Entitic vol] 90.0 fL 83.5-[address] [facility] Monocytes Auto (Bld) [#/Vol] Ordered By: Pam Singh on 10-03-2022 Monocytes (Bld) [#/Vol] 0.9 10*3/uL 0.0-0.[address] [facility] Monocytes/100 WBC Auto (Bld) Ordered By: Pam Singh on 10-03-2022 Monocytes/100 WBC (Bld) 8.6 % . [facility] Neutrophils Auto (Bld) [#/Vo l]Ordered By: Pam Singh on 10-03-2022 Neutrophils (Bld) [#/Vol] 6.2 10*3/uL 1.8-7.[address] [facility] Neutrophils/100 WBC Auto (Bl d)Ordered By: Pam Singh on 10-03-2022 Neutrophils/100 WBC (Bld) 61.2 % . [facility] No Panel InformationOrdered By: Pam Singh on 10-03-2022 Estimated GFR () 58 mL/Min [facility] Comment on above: GFR estimated refere nce range: According to KDOQI guidelines, <60 ml/min/1.73m2 is sufficient to diagnose a patient with chronic kidney disease. Pharmacy Creatinine Clearance (Chem 61.[address] [facility] Nucleated erythrocytes [Pres ence] in Blood by Automated countOrdered By: Pam Singh on 10-03-2022 Nucleated RBC Auto Ql (Bld) 0.2 /100{WBC} 0-0.[address] [facility] Platelet mean volume Auto (B ld) [Entitic vol]Ordered By: Pam Singh on 10-03-2022 Platelet mean volume (Bld) [Entitic vol] 8.5 fL 6.6-10.[address] [facility] Platelets Auto (Bld) [#/Vol] Ordered By: Pam Singh on 10-03-2022 Platelets (Bld) [#/Vol] 249 10*3/uL 150-[address] [facility] RBC Auto (Bld) [#/Vol]Ordere d By: Pam Singh on 10-03-2022 RBC (Bld) [#/Vol] 4.68 10*6/uL 3.90-5.60 [facility] Serum or plasma anion gap de terminationOrdered By: Pam Singh on 10-03-2022 Anion gap [Moles/Vol] 10.8 mmol/L 6.0-15.0 [facility] Serum or plasma calcium lucius urement (mass/volume)Ordered By: Pam Singh on 10-03-2022 Calcium [Mass/Vol] 9.2 mg/dL 8.2-10.2 [facility] Serum or plasma chloride shira surement (moles/volume)Ordered By: Pam Singh on 10-03-2022 Chloride [Moles/Vol] 108 mmol/L 95-114 [facility] Serum or plasma glucose lucius urement (mass/volume)Ordered By: Pam Singh on 10-03-2022 Glucose [Mass/Vol] 152 mg/dL 70-100 [facility] Comment on above: ADA recommended refe rence rangeRandom Glucose Reference Range is dependent on time and content of last meal. Glucose of more than 200 mg/dL in a nonstressed, ambulatory subject supports the diagnosis of Diabetes Mellitus. Serum or plasma potassium me asurement (moles/volume)Ordered By: Pam Singh on 10-03-2022 Potassium [Moles/Vol] 4.0 mmol/L 3.5-5.1 [facility] Serum or plasma sodium measu rement (moles/volume)Ordered By: Pam Singh on 10-03-2022 Sodium [Moles/Vol] 136 mmol/L 136-146 [facility] Serum or plasma total carbon dioxide measurement (moles/volume)Ordered By: Pam Singh on 10-03-2022 CO2 [Moles/Vol] 21.2 mmol/L 22.0-30.0 [facility] Serum or plasma urea nitroge n measurement (mass/volume)Ordered By: Pam Singh on 10-03-2022 Urea nitrogen [Mass/Vol] 23 mg/dL 9-[address] [facility] Urine culture routineOrdered By: Spike Estrada on 10-03-2022 Bacteria identified Cx Nom (U) No Growth [address] [facility] WBC Auto (Bld) [#/Vol]Ordere d By: Pam Singh on 10-03-2022 WBC (Bld) [#/Vol] 10.1 10*3/uL 4.1-10.5 [facility] Cholesterol [Mass/volume] in Serum or PlasmaOrdered By: Pam Singh on 10-02-2022 Cholesterol [Mass/Vol] 156 mg/dL 140-200 [facility] Comment on above: Chol less than 200 m g/dl low riskChol 201-239 mg/dl borderline riskChol 240 mg/dl and greater high risk Cholesterol in LDL Calc [Mas s/Vol]Ordered By: Pam Singh on 10-02-2022 Cholesterol in LDL [Mass/Vol] 78 mg/dL 0-[address] [facility] Comment on above: LDL ATP III CLASSIFI CATIONLDL less than 100 mg/dL OptimalLDL 100-129 mg/dL Near or above optimalLDL 130-159 mg/dL Borderline highLDL 160-189 mg/dL HighLDL greater than 189 mg/dL Very high Cholesterol in VLDL Calc [Ma ss/Vol]Ordered By: Pam Singh on 10-02-2022 Cholesterol in VLDL [Mass/Vol] 37 mg/dL [facility] Glucose Glucometer (BldC) [M ass/Vol]Ordered By: Shaila Bowen on 10-02-2022 Glucose [Mass/Vol] 122 mg/dL [facility] Comment on above: Random Glucose Refer ence Range is dependent on time and content of last meal. Glucose of more than 200 mg/dL in a nonstressed, ambulatory subject supports the diagnosis of Diabetes Mellitus. Serum or plasma high density lipoprotein (HDL) cholesterol measurementOrdered By: Pam Singh on 10-02-2022 Cholesterol in HDL [Mass/Vol] 41 mg/dL 29-[address] [facility] Comment on above: HDL CHOL ATP-III CLA SSIFICATION Cardiovascular RiskHDL > or equal to 60 mg/dL LOWHDL < 40 mg/dL HIGH Serum or plasma total choles terol/high density lipoprotein (HDL) cholesterol mass ratOrdered By: Pam Singh on 10-02-2022 Cholesterol.total/Chol esterol in HDL [Mass ratio] 3.8 {ratio} <5.[address] [facility] Triglyceride [Mass/volume] i n Serum or PlasmaOrdered By: Pam Singh on 10-02-2022 Triglyceride [Mass/Vol] 187 mg/dL 35-[address] [facility] Comment on above: TRIG ATP III [...] method [Mass/Vol] 6 pg/mL 0-[address] [facility] Amphetamine Screen Ql (U)Ord ered By: Spike Estrada on 10-01-2022 Amphetamines Ql (U) Negative Negative [facility] Automated erythrocytes count in urine sediment (number/area)Ordered By: Spike Estrada on 10-01-2022 RBC Auto (Urine sed) [#/Area] None seen [HPF] 0-[address] [facility] Automated leukocytes count i n urine sediment (number/area)Ordered By: Spike Estrada on 10-01-2022 WBC Auto (Urine sed) [#/Area] 0-1 [HPF] 0-[address] [facility] Barbiturates [Presence] in U rineOrdered By: Spike Estrada on 10-01-2022 Barbiturates Ql (U) Negative Negative [facility] Basophils Auto (Bld) [#/Vol] Ordered By: Spike Estrada on 10-01-2022 Basophils (Bld) [#/Vol] 0.1 10*3/uL 0.0-0.[address] [facility] Basophils/100 WBC Auto (Bld) Ordered By: Spike Estrada on 10-01-2022 Basophils/100 WBC (Bld) 0.6 % . [facility] Benzodiazepines [Presence] i n UrineOrdered By: Spike Estrada on 10-01-2022 Benzodiazepines Ql (U) Positive Negative [facility] Bilirubin Test strip Ql (U)O rdered By: Spike Estrada on 10-01-2022 Bilirubin Ql (U) Negative Negative [facility] Body fluid albumin measureme nt (mass/volume)Ordered By: Spike Estrada on 10-01-2022 Albumin (Body fld) [Mass/Vol] 4.3 g/dL 3.2-5.[address] [facility] COVID CepheidOrdered By: Meiro mary beth Estrada on 10-01-2022 SARS-CoV-2 (COVID-19) Ab IA Ql Negative Negative [facility] Comment on above: This is a duplicate CepRollerscootid Xpert Xpress CoV-2/Flu/RSV Plus RNA by RT-PCR result to be used for statistical tracking purpose only. SARS-CoV-2 (COVID-19) RNA ANGÉLICA+probe Ql (Unsp spec) [facility] SARS-CoV-2 (COVID-19) RNA ANGÉLICA+probe Ql (Unsp spec) [facility] Cannabinoids [Presence] in U rine by Screen methodOrdered By: Spike Estrada on 10-01-2022 Cannabinoids Screen Ql (U) Negative Negative [facility] Comment on above: These are unconfirme d results and should not be used for legal purposes. Drug Cut-Off Concentration: AMPH 1000 ng/mL CAMI 200 ng/mL AAMIR 200 ng/mL COCM 300 ng/mL OP 300 ng/mL PCP 25 ng/mL THC 20 ng/mL Color Auto (U)Ordered By: Meir Estrada on 10-01-2022 Color (U) Yellow Yellow [facility] Creatinine and Glomerular fi ltration rate.predicted panel (S/P/Bld)Ordered By: Spike Estrada on 10-01-2022 Creatinine [Mass/Vol] 1.56 mg/dL 0.64-1.27 [facility] Eosinophils Auto (Bld) [#/Vo l]Ordered By: Spike Estrada on 10-01-2022 Eosinophils (Bld) [#/Vol] 0.1 10*3/uL 0.0-0.[address] [facility] Eosinophils/100 WBC Auto (Bl d)Ordered By: Spike Estrada on 10-01-2022 Eosinophils/100 WBC (Bld) 0.4 % . [facility] Erythrocyte distribution wid th Auto (RBC) [Ratio]Ordered By: Spike Estrada on 10-01-2022 Erythrocyte distribution width (RBC) [Ratio] 15.2 % 12.0-14.[address] [facility] Estimated glomerular filtrat ion rate (GFR) non- AmericanOrdered By: Spike Estrada on 10-01-2022 GFR/1.73 sq M.predicted among non-blacks MDRD (S/P/Bld) [Vol rate/Area] 45 mL/Min [facility] Folate [Mass/volume] in Seru m or PlasmaOrdered By: Shaila Bowen on 10-01-2022 Folate [Mass/Vol] ng/mL >5.9 [facility] Comment on above: Folate reference ran ge: >5.9 ng/mlThe WHO technical consultation on folate and vitamin [id number] has determined that folate concentrations lessthan 4 ng/ml are considered deficient. Globulin Calc (S) [Mass/Vol] Ordered By: Spike Estrada on 10-01-2022 Globulin (S) [Mass/Vol] 4.4 g/dL [facility] Hematocrit Auto (Bld) [Volum e fraction]Ordered By: Spike Estrada on 10-01-2022 Hematocrit (Bld) [Volume fraction] 44.6 % 38.8-50.[address] [facility] Hemoglobin [Mass/volume] in BloodOrdered By: Spike Estrada on 10-01-2022 Hemoglobin (Bld) [Mass/Vol] 14.6 g/dL 13.0-17.[address] [facility] Ketones Auto test strip (U) [Mass/Vol]Ordered By: Spike Estrada on 10-01-2022 Ketones (U) [Mass/Vol] Negative Negative [facility] Laboratory - Chemistry and C hemistry - challengeOrdered By: Shaila Bowen on 10-01-2022 Cobalamin (Vitamin B12) [Mass/Vol] 358 pg/mL 180-[address] [facility] Laboratory - Drug toxicology Ordered By: Spike Estrada on 10-01-2022 Opiates Ql (U) Positive Negative [facility] Laboratory - UrinalysisOrder ed By: Spike Estrada on 10-01-2022 Hyaline casts LM Ql (Urine sed) 0-8 [LPF] 0-[address] [facility] Leukocytes [#/volume] correc desean for nucleated erythrocytes in Blood by Automated counOrdered By: Spike Estrada on 10-01-2022 WBC corrected for nucl RBC Auto (Bld) [#/Vol] 11.3 10*3/uL 4.1-10.[address] [facility] Lymphocytes Auto (Bld) [#/Vo l]Ordered By: Spike Estrada on 10-01-2022 Lymphocytes (Bld) [#/Vol] 2.2 10*3/uL 1.00-4.[address] [facility] Lymphocytes/100 WBC Auto (Bl d)Ordered By: Spike Estrada on 10-01-2022 Lymphocytes/100 WBC (Bld) 19.6 % . [facility] MCH Auto (RBC) [Entitic mass ]Ordered By: Spike Estrada on 10-01-2022 MCH (RBC) [Entitic mass] 29.7 pg 27.5-35.[address] [facility] MCHC Auto (RBC) [Mass/Vol]Or dered By: Spike Estrada on 10-01-2022 MCHC (RBC) [Mass/Vol] 32.7 g/dL 32.5-35.6 [facility] MCV Auto (RBC) [Entitic vol] Ordered By: Spike Estrada on 10-01-2022 MCV (RBC) [Entitic vol] 90.8 fL 83.5-[address] [facility] Monocyte distribution width [Entitic volume] in Blood by AutomatedOrdered By: Spike Estrada on 10-01-2022 Monocyte distribution width Auto (Bld) [Entitic vol] 20.76 % 0.00-20.[address] [facility] Comment on above: For adults in ED, MD W > 20.0 may be associated with a higher risk of sepsis during the first 12 hrs of hospital admission Monocytes Auto (Bld) [#/Vol] Ordered By: Spike Estrada on 10-01-2022 Monocytes (Bld) [#/Vol] 0.6 10*3/uL 0.0-0.[address] [facility] Monocytes/100 WBC Auto (Bld) Ordered By: Spike Estrada on 10-01-2022 Monocytes/100 WBC (Bld) 5.4 % . [facility] Neutrophils Auto (Bld) [#/Vo l]Ordered By: Spike Estrada on 10-01-2022 Neutrophils (Bld) [#/Vol] 8.3 10*3/uL 1.8-7.[address] [facility] Neutrophils/100 WBC Auto (Bl d)Ordered By: Spike Esrtada on 10-01-2022 Neutrophils/100 WBC (Bld) 74.0 % . [facility] Nitrite Test strip Ql (U)Ord ered By: Spike Estrada on 10-01-2022 Nitrite Ql (U) Negative Negative [facility] No Panel InformationOrdered By: Spike Estrada on 10-01-2022 Estimated GFR () 54 mL/Min [facility] Comment on above: GFR estimated refere nce range: According to KDOQI guidelines, <60 ml/min/1.73m2 is sufficient to diagnose a patient with chronic kidney disease. Pharmacy Creatinine Clearance (Chem N/A [facility] Bedside Glucose Comment Glu2: cleaned meter [facility] Nucleated erythrocytes [Pres ence] in Blood by Automated countOrdered By: Spike Estrada on 10-01-2022 Nucleated RBC Auto Ql (Bld) 0.1 /100{WBC} 0-0.[address] [facility] Phencyclidine Screen Ql (U)O rdered By: Spike Estrada on 10-01-2022 Phencyclidine Ql (U) Negative Negative [facility] Platelet mean volume Auto (B ld) [Entitic vol]Ordered By: Spike Estrada on 10-01-2022 Platelet mean volume (Bld) [Entitic vol] 8.2 fL 6.6-10.[address] [facility] Platelets Auto (Bld) [#/Vol] Ordered By: Spike Estrada on 10-01-2022 Platelets (Bld) [#/Vol] 285 10*3/uL 150-[address] [facility] Protein Auto test strip (U) [Mass/Vol]Ordered By: Spike Etsrada on 10-01-2022 Protein (U) [Mass/Vol] Trace mg/dL Negative [facility] Protein [Mass/volume] in Ser um or PlasmaOrdered By: Spike Estrada on 10-01-2022 Protein [Mass/Vol] 8.7 g/dL 6.1-7.9 [facility] RBC Auto (Bld) [#/Vol]Ordere d By: Spike Estrada on 10-01-2022 RBC (Bld) [#/Vol] 4.91 10*6/uL 3.90-5.60 [facility] Serum or plasma alanine padilla otransferase measurement without P-5'-P (enzymatic activiOrdered By: Spike Estrada on 10-01-2022 ALT No additional P-5'-P [Catalytic activity/Vol] 27 U/L 10-[address] [facility] Serum or plasma albumin/glob ulin mass ratioOrdered By: Spike Estrada on 10-01-2022 Albumin/Globulin [Mass ratio] 1.0 {ratio} [facility] Serum or plasma alkaline stefani sphatase measurement (enzymatic activity/volume)Ordered By: Spike Estrada on 10-01-2022 ALP [Catalytic activity/Vol] 87 U/L 32-[address] [facility] Serum or plasma anion gap de terminationOrdered By: Spike Estrada on 10-01-2022 Anion gap [Moles/Vol] 15.0 mmol/L 6.0-15.0 [facility] Serum or plasma aspartate am inotransferase measurement (enzymatic activity/volume)Ordered By: Spike Estrada on 10-01-2022 AST [Catalytic activity/Vol] 21 U/L 10-[address] [facility] Serum or plasma calcium lucius urement (mass/volume)Ordered By: Spike Estrada on 10-01-2022 Calcium [Mass/Vol] 10.0 mg/dL 8.2-10.2 [facility] Serum or plasma chloride shira surement (moles/volume)Ordered By: Spike Estrada on 10-01-2022 Chloride [Moles/Vol] 104 mmol/L 95-114 [facility] Serum or plasma ethanol lucius urement (mass/volume)Ordered By: Spike Estrada on 10-01-2022 Ethanol [Mass/Vol] mg/dL [facility] Ethanol [Mass/Vol] TNP [facility] Comment on above: Test not performed Serum or plasma glucose lucius urement (mass/volume)Ordered By: Spike Estrada on 10-01-2022 Glucose [Mass/Vol] 152 mg/dL 70-100 [facility] Comment on above: ADA recommended refe rence rangeRandom Glucose Reference Range is dependent on time and content of last meal. Glucose of more than 200 mg/dL in a nonstressed, ambulatory subject supports the diagnosis of Diabetes Mellitus. Serum or plasma potassium me asurement (moles/volume)Ordered By: Spike Estrada on 10-01-2022 Potassium [Moles/Vol] 4.4 mmol/L 3.5-5.1 [facility] Serum or plasma sodium measu rement (moles/volume)Ordered By: Spike Estrada on 10-01-2022 Sodium [Moles/Vol] 136 mmol/L 136-146 [facility] Serum or plasma total biliru bin measurement (mass/volume)Ordered By: Spike Estrada on 10-01-2022 Bilirubin [Mass/Vol] 0.8 mg/dL 0.3-1.2 [facility] Serum or plasma total carbon dioxide measurement (moles/volume)Ordered By: Spike Estrada on 10-01-2022 CO2 [Moles/Vol] 21.4 mmol/L 22.0-30.0 [facility] [facility] Serum or plasma urea nitroge n measurement (mass/volume)Ordered By: Spike Estrada on 10-01-2022 Urea nitrogen [Mass/Vol] 22 mg/dL 9- [facility] Specific gravity Auto test s trip (U) [Rel density]Ordered By: Spike Estrada on 10-01-2022 Specific gravity (U) [Rel density] 1.026 1.001-1.[address] [facility] Squamous epithelial cells de tection in urine sediment by light microscopyOrdered By: Spike Estrada on 10-01-2022 Epithelial cells.squamous LM Ql (Urine sed) None seen [HPF] 0-[address] [facility] TSH DL <= 0.005 mIU/L QnOrde red By: Shaila Bowen on 10-01-2022 TSH Qn 0.91 m[IU]/L 0.45-5.[address] [facility] Troponin I.cardiac [Mass/vol ume] in Serum or Plasma by High sensitivity methodOrdered By: Pam Singh on 10-01-2022 Troponin I.cardiac High sensitivity method [Mass/Vol] 5 pg/mL 0-[address] [facility] Urine bacteria detection by automated methodOrdered By: Spike Estrada on 10-01-2022 Bacteria Auto Ql (U) None seen None Seen [facility] [place] Urine clarity by refractomet ry automatedOrdered By: Spike Estrada on 10-01-2022 Clarity Refractometry automated (U) Clear Clear [facility] Urine cocaine detectionOrder ed By: Spike Estrada on 10-01-2022 Cocaine Ql (U) Negative Negative [facility] Urine culture routineOrdered By: Spike Estrada on 10-01-2022 Bacteria identified Cx Nom (U) No Growth [address] [facility] Urine glucose measurement by automated test strip (mass/volume)Ordered By: Spike Estrada on 10-01-2022 Glucose Auto test strip (U) [Mass/Vol] >=1000 mg/dL Normal [facility] Urine hemoglobin detection b y automated test stripOrdered By: Spike Estrada on 10-01-2022 Hemoglobin Auto test strip Ql (U) Negative Negative [facility] Urine leukocyte esterase det ection by automated test stripOrdered By: Spike Estrada on 10-01-2022 Leukocyte esterase Auto test strip Ql (U) Negative Negative [facility] Urobilinogen Auto test strip (U) [Mass/Vol]Ordered By: Spike Estrada on 10-01-2022 Urobilinogen (U) [Mass/Vol] Normal mg/dL Normal [facility] WBC Auto (Bld) [#/Vol]Ordere d By: Spike Estrada on 10-01-2022 WBC (Bld) [#/Vol] 11.3 10*3/uL 4.1-10.5 [facility] pH Auto test strip (U)Ordere d By: Spike Estrada on 10-01-2022 pH (U) 5.5 [pH] 5.0-9.[address] [facility] Glucose Glucometer (BldC) [M ass/Vol]Ordered By: Zheng Iraheta on 07-26-2022 Glucose [Mass/Vol] 135 mg/dL [facility] Comment on above: Random Glucose Refer ence Range is dependent on time and content of last meal. Glucose of more than 200 mg/dL in a nonstressed, ambulatory subject supports the diagnosis of Diabetes Mellitus. No Panel InformationOrdered By: Zheng Iraheta on 07-26-2022 Bedside Glucose Comment Glu2: cleaned meter [facility] COVID-19 Positive/NegativeOr dered By: Zheng Iraheta on 07-24-2022 SARS-CoV-2 (COVID-19) N gene ANGÉLICA+probe Ql (Resp) Negative Negative [facility] Comment on above: Testing for SARS-CoV -2 by RT-PCRThis test was developed and its performance characteristics determined by [employer] ([employer]) and validated at the [facility]. This test has not been FDA [...] (Bld) [#/Vol] 0.1 10*3/uL 0.0-0.[address] [facility] Basophils/100 WBC Auto (Bld) Ordered By: Zheng Iraheta on 07-12-2022 Basophils/100 WBC (Bld) 0.5 % . [facility] Blood hemoglobin measurement (mass/volume)Ordered By: Zheng Iraheta on 07-12-2022 Hemoglobin (Bld) [Mass/Vol] 14.3 g/dL 13.0-17.[address] [facility] Blood leukocytes automated c ount (number/volume)Ordered By: Zheng Iraheta on 07-12-2022 WBC (Bld) [#/Vol] 11.4 10*3/uL 4.5-11.0 [facility] Creatinine and Glomerular fi ltration rate.predicted panel (S/P/Bld)Ordered By: Zheng Iraheta on 07-12-2022 Creatinine [Mass/Vol] 1.56 mg/dL 0.64-1.27 [facility] Eosinophils Auto (Bld) [#/Vo l]Ordered By: Zheng Iraheta on 07-12-2022 Eosinophils (Bld) [#/Vol] 0.1 10*3/uL 0.0-0.[address] [facility] Eosinophils/100 WBC Auto (Bl d)Ordered By: Zheng Iraheta on 07-12-2022 Eosinophils/100 WBC (Bld) 1.1 % . [facility] Erythrocyte distribution wid th Auto (RBC) [Ratio]Ordered By: Zheng Iraheta on 07-12-2022 Erythrocyte distribution width (RBC) [Ratio] 14.5 % 12.0-14.[address] [facility] Estimated glomerular filtrat ion rate (GFR) non- AmericanOrdered By: Zheng Iraheta on 07-12-2022 GFR/1.73 sq M.predicted among non-blacks MDRD (S/P/Bld) [Vol rate/Area] 45 mL/Min [facility] Hematocrit Auto (Bld) [Volum e fraction]Ordered By: Zheng Iraheta on 07-12-2022 Hematocrit (Bld) [Volume fraction] 43.4 % 38.8-50.[address] [facility] Laboratory - Hematology and Cell countsOrdered By: Zheng Iraheta on 07-12-2022 Nucleated RBC/100 WBC (Bld) [Ratio] 0.1 % 0-0.[address] [facility] Lymphocytes Auto (Bld) [#/Vo l]Ordered By: Zheng Iraheta on 07-12-2022 Lymphocytes (Bld) [#/Vol] 2.6 10*3/uL 1.00-4.[address] [facility] Lymphocytes/100 WBC Auto (Bl d)Ordered By: Zheng Iraheta on 07-12-2022 Lymphocytes/100 WBC (Bld) 22.9 % . [facility] MCH Auto (RBC) [Entitic mass ]Ordered By: Zheng Iraheta on 07-12-2022 MCH (RBC) [Entitic mass] 30.1 pg 27.5-35.[address] [facility] MCHC Auto (RBC) [Mass/Vol]Or dered By: Zheng Iraheta on 07-12-2022 MCHC (RBC) [Mass/Vol] 33.0 g/dL 32.5-35.6 [facility] MCV Auto (RBC) [Entitic vol] Ordered By: Zheng Iraheta on 07-12-2022 MCV (RBC) [Entitic vol] 91.1 fL 83.5-[address] [facility] Monocytes Auto (Bld) [#/Vol] Ordered By: Zheng Iraheta on 07-12-2022 Monocytes (Bld) [#/Vol] 0.9 10*3/uL 0.0-0.[address] [facility] Monocytes/100 WBC Auto (Bld) Ordered By: Zheng Iraheta on 07-12-2022 Monocytes/100 WBC (Bld) 8.0 % . [facility] Neutrophils Auto (Bld) [#/Vo l]Ordered By: Zheng Iraheta on 07-12-2022 Neutrophils (Bld) [#/Vol] 7.7 10*3/uL 1.8-7.[address] [facility] Neutrophils/100 WBC Auto (Bl d)Ordered By: Zheng Iraheta on 07-12-2022 Neutrophils/100 WBC (Bld) 67.5 % . [facility] No Panel InformationOrdered By: Zheng Iraehta on 07-12-2022 Estimated GFR () 55 mL/Min [facility] Comment on above: GFR estimated refere nce range: According to KDOQI guidelines, <60 ml/min/1.73m2 is sufficient to diagnose a patient with chronic kidney disease. Pharmacy Creatinine Clearance (Chem N/A [facility] Platelet mean volume Auto (B ld) [Entitic vol]Ordered By: Zheng Iraheta on 07-12-2022 Platelet mean volume (Bld) [Entitic vol] 8.4 fL 6.6-10.[address] [facility] Platelets Auto (Bld) [#/Vol] Ordered By: Zheng Iraheta on 07-12-2022 Platelets (Bld) [#/Vol] 314 10*3/uL 150-[address] [facility] RBC Auto (Bld) [#/Vol]Ordere d By: Zheng Iraheta on 07-12-2022 RBC (Bld) [#/Vol] 4.76 10*6/uL 3.90-5.60 [facility] Serum or plasma anion gap de terminationOrdered By: Zheng Iraheta on 07-12-2022 Anion gap [Moles/Vol] 15.8 mmol/L 6.0-15.0 [facility] Serum or plasma calcium lucius urement (mass/volume)Ordered By: Zheng Iraheta on 07-12-2022 Calcium [Mass/Vol] 10.0 mg/dL 8.2-10.2 [facility] Serum or plasma chloride shira surement (moles/volume)Ordered By: Zheng Iraheta on 07-12-2022 Chloride [Moles/Vol] 106 mmol/L 95-114 [facility] Serum or plasma glucose lucius urement (mass/volume)Ordered By: Zheng Iraheta on 07-12-2022 Glucose [Mass/Vol] 120 mg/dL 70-100 [facility] Comment on above: ADA recommended refe [...] on 07-12-2022 Potassium [Moles/Vol] 5.5 mmol/L 3.5-5.1 [facility] Serum or plasma sodium measu rement (moles/volume)Ordered By: Zheng Iraheta on 07-12-2022 Sodium [Moles/Vol] 139 mmol/L 136-146 [facility] Serum or plasma total carbon dioxide measurement (moles/volume)Ordered By: Zheng rIaheta on 07-12-2022 CO2 [Moles/Vol] 22.7 mmol/L 22.0-30.0 [facility] Serum or plasma urea nitroge n measurement (mass/volume)Ordered By: Zheng Iraheta on 07-12-2022 Urea nitrogen [Mass/Vol] 21 mg/dL 07-[address] [facility] Glucose Glucometer (BldC) [M ass/Vol]Ordered By: Mark Anthony Naylor on 06-15-2022 Glucose [Mass/Vol] 121 mg/dL [facility] Comment on above: Random Glucose Refer ence Range is dependent on time and content of last meal. Glucose of more than 200 mg/dL in a nonstressed, ambulatory subject supports the diagnosis of Diabetes Mellitus. No Panel InformationOrdered By: Mark Anthony Kumar on 06-15-2022 Bedside Glucose Comment Glu2: cleaned meter [facility] COVID-19 Positive/NegativeOr dered By: Mark Anthony Kumar on 06-13-2022 SARS-CoV-2 (COVID-19) N gene ANGÉLICA+probe Ql (Resp) Negative Negative [facility] Comment on above: Testing for SARS-CoV -2 by RT-PCR This test was developed and its performance characteristics determined by [employer] ([employer]) and validated at the [facility]. This test has not been FDA [...] developed and its performance characteristics determined by [employer] ([employer]) and validated at the [facility]. This test has not been FDA [...] Glucometer (BldC) [M ass/Vol]Ordered By: Mark Anthony Kumar on 05-24-2022 Glucose [Mass/Vol] 128 mg/dL [facility] Comment on above: Random Glucose Refer ence Range is dependent on time and content of last meal. Glucose of more than 200 mg/dL in a nonstressed, ambulatory subject supports the diagnosis of Diabetes Mellitus. COVID-19 Positive/NegativeOr dered By: Mark Anthony Naylor on 05-22-2022 SARS-CoV-2 (COVID-19) N gene ANGÉLICA+probe Ql (Resp) Negative Negative [facility] Comment on above: Testing for SARS-CoV -2 by RT-PCR This test was developed and its performance characteristics determined by [employer] ([employer]) and validated at the [facility]. This test has not been FDA [...] developed and its performance characteristics determined by [employer] ([employer]) and validated at the [facility]. This test has not been FDA [...] on 05-19-2022 Albumin [Mass/Vol] 4.1 g/dL 3.2-5.5 [facility] Automated epithelial cells c ount in urine sediment (number/area)Ordered By: César Arreaga on 05-19-2022 Epithelial cells Auto (Urine sed) [#/Area] 1-2 [HPF] 0-[address] [facility] Automated erythrocytes count in urine sediment (number/area)Ordered By: César Arreaga on 05-19-2022 RBC Auto (Urine sed) [#/Area] 3-4 [HPF] 0-[address] [facility] Automated leukocytes count i n urine sediment (number/area)Ordered By: César Arreaga on 05-19-2022 WBC Auto (Urine sed) [#/Area] None seen [HPF] 0-[address] [facility] Basophils Auto (Bld) [#/Vol] Ordered By: César Arreaga on 05-19-2022 Basophils (Bld) [#/Vol] 0.1 10*3/uL 0.0-0.[address] [facility] Basophils/100 WBC Auto (Bld) Ordered By: César Arreaga on 05-19-2022 Basophils/100 WBC (Bld) 0.5 % . [facility] Bilirubin Auto test strip Ql (U)Ordered By: César Arreaga on 05-19-2022 Bilirubin Ql (U) Negative Negative [facility] Blood hemoglobin measurement (mass/volume)Ordered By: César Arreaga on 05-19-2022 Hemoglobin (Bld) [Mass/Vol] 14.2 g/dL 13.0-17.[address] [facility] Blood leukocytes automated c ount (number/volume)Ordered By: César Arreaga on 05-19-2022 WBC (Bld) [#/Vol] 10.4 10*3/uL 4.5-11.0 [facility] Creatinine and Glomerular fi ltration rate.predicted panel (S/P/Bld)Ordered By: César Arreaga on 05-19-2022 Creatinine [Mass/Vol] 1.62 mg/dL 0.64-1.27 [facility] Eosinophils Auto (Bld) [#/Vo l]Ordered By: César Arreaga on 05-19-2022 Eosinophils (Bld) [#/Vol] 0.1 10*3/uL 0.0-0.[address] [facility] Eosinophils/100 WBC Auto (Bl d)Ordered By: César Arreaga on 05-19-2022 Eosinophils/100 WBC (Bld) 1.3 % . [facility] Erythrocyte distribution wid th Auto (RBC) [Ratio]Ordered By: César Arreaga on 05-19-2022 Erythrocyte distribution width (RBC) [Ratio] 15.2 % 12.0-14.[address] [facility] Estimated glomerular filtrat ion rate (GFR) non- AmericanOrdered By: César Arreaga on 05-19-2022 GFR/1.73 sq M.predicted among non-blacks MDRD (S/P/Bld) [Vol rate/Area] 43 mL/Min [facility] Globulin Calc (S) [Mass/Vol] Ordered By: César Arreaga on 05-19-2022 Globulin (S) [Mass/Vol] 3.2 g/dL [facility] Hematocrit Auto (Bld) [Volum e fraction]Ordered By: César Arreaga on 05-19-2022 Hematocrit (Bld) [Volume fraction] 42.6 % 38.8-50.[address] [facility] Ketones Auto test strip (U) [Mass/Vol]Ordered By: César Arreaga on 05-19-2022 Ketones (U) [Mass/Vol] Trace [facility] and Cell countsOrdered By: César Arreaga on 05-19-2022 Nucleated RBC/100 WBC (Bld) [Ratio] 0.0 % 0-0.[address] [facility] Lymphocytes Auto (Bld) [#/Vo l]Ordered By: César Arreaga on 05-19-2022 Lymphocytes (Bld) [#/Vol] 4.3 10*3/uL 1.00-4.[address] [facility] Lymphocytes/100 WBC Auto (Bl d)Ordered By: César Arreaga on 05-19-2022 Lymphocytes/100 WBC (Bld) 40.8 % . [facility] MCH Auto (RBC) [Entitic mass ]Ordered By: César Arreaga on 05-19-2022 MCH (RBC) [Entitic mass] 30.4 pg 27.5-35.[address] [facility] MCHC Auto (RBC) [Mass/Vol]Or dered By: César Arreaga on 05-19-2022 MCHC (RBC) [Mass/Vol] 33.3 g/dL 32.5-35.6 [facility] MCV Auto (RBC) [Entitic vol] Ordered By: César Arreaga on 05-19-2022 MCV (RBC) [Entitic vol] 91.3 fL 83.5-[address] [facility] Monocytes Auto (Bld) [#/Vol] Ordered By: César Arreaga on 05-19-2022 Monocytes (Bld) [#/Vol] 0.8 10*3/uL 0.0-0.[address] [facility] Monocytes/100 WBC Auto (Bld) Ordered By: César Arreaga on 05-19-2022 Monocytes/100 WBC (Bld) 7.8 % . [facility] Neutrophils Auto (Bld) [#/Vo l]Ordered By: César Arreaga on 05-19-2022 Neutrophils (Bld) [#/Vol] 5.2 10*3/uL 1.8-7.[address] [facility] Neutrophils/100 WBC Auto (Bl d)Ordered By: César Arreaga on 05-19-2022 Neutrophils/100 WBC (Bld) 49.6 % . [facility] No Panel InformationOrdered By: César Arreaga on 05-19-2022 Estimated GFR () 52 mL/Min [facility] Comment on above: GFR estimated refere nce range: According to KDOQI guidelines, <60 ml/min/1.73m2 is sufficient to diagnose a patient with chronic kidney disease. Pharmacy Creatinine Clearance (Chem 55.[address] [facility] Platelet mean volume Auto (B ld) [Entitic vol]Ordered By: César Arreaga on 05-19-2022 Platelet mean volume (Bld) [Entitic vol] 8.3 fL 6.6-10.[address] [facility] Platelets Auto (Bld) [#/Vol] Ordered By: César Arreaga on 05-19-2022 Platelets (Bld) [#/Vol] 287 10*3/uL 150-[address] [facility] Protein Auto test strip (U) [Mass/Vol]Ordered By: César Arreaga on 05-19-2022 Protein (U) [Mass/Vol] Trace mg/dL Negative [facility] Protein [Mass/volume] in Ser um or PlasmaOrdered By: César Arreaga on 05-19-2022 Protein [Mass/Vol] 7.3 g/dL 6.1-7.9 [facility] RBC Auto (Bld) [#/Vol]Ordere d By: César Arreaga on 05-19-2022 RBC (Bld) [#/Vol] 4.66 10*6/uL 3.90-5.60 [facility] Serum or plasma alanine padilla otransferase measurement without P-5'-P (enzymatic activiOrdered By: César Arreaga on 05-19-2022 ALT No additional P-5'-P [Catalytic activity/Vol] 23 U/L 10-[address] [facility] Serum or plasma albumin/glob ulin mass ratioOrdered By: César Arreaga on 05-19-2022 Albumin/Globulin [Mass ratio] 1.3 {ratio} [facility] Serum or plasma alkaline stefani sphatase measurement (enzymatic activity/volume)Ordered By: César Arreaga on 05-19-2022 ALP [Catalytic activity/Vol] 80 U/L 32-[address] [facility] Serum or plasma aspartate am inotransferase measurement (enzymatic activity/volume)Ordered By: César Arreaga on 05-19-2022 AST [Catalytic activity/Vol] 22 U/L 10-[address] [facility] Serum or plasma calcium lucius urement (mass/volume)Ordered By: César Arreaga on 05-19-2022 Calcium [Mass/Vol] 9.6 mg/dL 8.2-10.2 [facility] Serum or plasma chloride shira surement (moles/volume)Ordered By: César Arreaga on 05-19-2022 Chloride [Moles/Vol] 102 mmol/L 95-114 [facility] Serum or plasma glucose lucius urement (mass/volume)Ordered By: César Arreaga on 05-19-2022 Glucose [Mass/Vol] 150 mg/dL 70-100 [facility] Comment on above: ADA recommended refe [...] on 05-19-2022 Potassium [Moles/Vol] 3.7 mmol/L 3.5-5.1 [facility] Serum or plasma sodium measu rement (moles/volume)Ordered By: César Arreaga on 05-19-2022 Sodium [Moles/Vol] 139 mmol/L 136-146 [facility] Serum or plasma total biliru bin measurement (mass/volume)Ordered By: César Arreaga on 05-19-2022 Bilirubin [Mass/Vol] 0.8 mg/dL 0.3-1.2 [facility] Serum or plasma total carbon dioxide measurement (moles/volume)Ordered By: César Arreaga on 05-19-2022 CO2 [Moles/Vol] 22.8 mmol/L 22.0-30.0 [facility] Serum or plasma urea nitroge n measurement (mass/volume)Ordered By: César Arreaga on 05-19-2022 Urea nitrogen [Mass/Vol] 17 mg/dL 9-[address] [facility] Urine appearanceOrdered By: César Arreaga on 05-19-2022 Appearance (U) Clear Clear [facility] Urine bacteria detection by automated methodOrdered By: César Arreaga on 05-19-2022 Bacteria Auto Ql (U) Rare None Seen [facility] Urine colorOrdered By: César Arreaga on 05-19-2022 Color (U) Yellow Yellow [facility] Urine glucose measurement by automated test strip (mass/volume)Ordered By: César Arreaga on 05-19-2022 Glucose Auto test strip (U) [Mass/Vol] >=1000 mg/dL Normal [facility] Urine hemoglobin detection b y automated test stripOrdered By: César Arreaga on 05-19-2022 Hemoglobin Auto test strip Ql (U) 2+ Negative [facility] Urine leukocyte esterase det ection by automated test stripOrdered By: César Arreaga on 05-19-2022 Leukocyte esterase Auto test strip Ql (U) Negative Negative [facility] Urine nitrite detection by a utomated test stripOrdered By: César Arreaga on 05-19-2022 Nitrite Auto test strip Ql (U) Negative Negative [facility] Urobilinogen Auto test strip (U) [Mass/Vol]Ordered By: César Arreaga on 05-19-2022 Urobilinogen (U) [Mass/Vol] Normal mg/dL Normal [facility] pH Auto test strip (U)Ordere d By: César Arreaga on 05-19-2022 pH (U) 1.025 [pH] 1.001-1.[address] [facility] pH (U) 5.5 [pH] 5.0-9.[address] [facility] Automated erythrocytes count in urine sediment (number/area)Ordered By: Terell Amor on 05-07-2022 RBC Auto (Urine sed) [#/Area] 0-1 [HPF] 0-[address] [facility] Automated leukocytes count i n urine sediment (number/area)Ordered By: Terell Amor on 05-07-2022 WBC Auto (Urine sed) [#/Area] 0-1 [HPF] 0-[address] [facility] Basophils Auto (Bld) [#/Vol] Ordered By: Terell Amor on 05-07-2022 Basophils (Bld) [#/Vol] 0.0 10*3/uL 0.0-0.[address] [facility] Basophils/100 WBC Auto (Bld) Ordered By: Terell Amor on 05-07-2022 Basophils/100 WBC (Bld) 0.3 % . [facility] Bilirubin Test strip Ql (U)O rdered By: Terell Amor on 05-07-2022 Bilirubin Ql (U) Negative Negative [facility] Blood hemoglobin measurement (mass/volume)Ordered By: Terell Amor on 05-07-2022 Hemoglobin (Bld) [Mass/Vol] 14.3 g/dL 13.0-17.[address] [facility] Blood leukocytes automated c ount (number/volume)Ordered By: Terell Amor on 05-07-2022 WBC (Bld) [#/Vol] 12.1 10*3/uL 4.5-11.0 [facility] Color Auto (U)Ordered By: Valeriano Amor on 05-07-2022 Color (U) Yellow Yellow [facility] Creatinine and Glomerular fi ltration rate.predicted panel (S/P/Bld)Ordered By: Terell Amor on 05-07-2022 Creatinine [Mass/Vol] 1.50 mg/dL 0.64-1.27 [facility] Eosinophils Auto (Bld) [#/Vo l]Ordered By: Terell Amor on 05-07-2022 Eosinophils (Bld) [#/Vol] 0.1 10*3/uL 0.0-0.[address] [facility] Eosinophils/100 WBC Auto (Bl d)Ordered By: Terell Amor on 05-07-2022 Eosinophils/100 WBC (Bld) 0.5 % . [facility] Erythrocyte distribution wid th Auto (RBC) [Ratio]Ordered By: Terell Amor on 05-07-2022 Erythrocyte distribution width (RBC) [Ratio] 15.1 % 12.0-14.[address] [facility] Estimated glomerular filtrat ion rate (GFR) non- AmericanOrdered By: Terell Amor on 05-07-2022 GFR/1.73 sq M.predicted among non-blacks MDRD (S/P/Bld) [Vol rate/Area] 47 mL/Min [facility] Glucose mean value [Mass/vol ume] in Blood Estimated from glycated hemoglobinOrdered By: Terell Amor on 05-07-2022 Average glucose Estimated from glycated hemoglobin (Bld) [Mass/Vol] 154 mg/dL [facility] Hematocrit Auto (Bld) [Volum e fraction]Ordered By: Terell Amor on 05-07-2022 Hematocrit (Bld) [Volume fraction] 44.1 % 38.8-50.[address] [facility] Hemoglobin A1c percentageOrd ered By: Terell Amor on 05-07-2022 HbA1c (Bld) [Mass fraction] 7.0 % 4.3-5.[address] [facility] Comment on above: Increased risk for d iabetes: 5.7 - 6.4 diabetes: >6.4 glycemic control for adults with diabetes: <7.0 Increased risk for d iabetes: 5.7 - 6.4diabetes: >6.4glycemic control for adults with diabetes: <7.0 Ketones Auto test strip (U) [Mass/Vol]Ordered By: Terell Amor on 05-07-2022 Ketones (U) [Mass/Vol] 1+ Negative [facility] - Hematology and Cell countsOrdered By: Terell Amor on 05-07-2022 Nucleated RBC/100 WBC (Bld) [Ratio] 0.1 % 0-0.[address] [facility] Laboratory - UrinalysisOrder ed By: Terell Amor on 05-07-2022 Hyaline casts LM Ql (Urine sed) 0-8 [LPF] 0-[address] [facility] Lymphocytes Auto (Bld) [#/Vo l]Ordered By: Terell Amor on 05-07-2022 Lymphocytes (Bld) [#/Vol] 2.5 10*3/uL 1.00-4.[address] [facility] Lymphocytes/100 WBC Auto (Bl d)Ordered By: Terell Amor on 05-07-2022 Lymphocytes/100 WBC (Bld) 20.6 % . [facility] MCH Auto (RBC) [Entitic mass ]Ordered By: Terell Amor on 05-07-2022 MCH (RBC) [Entitic mass] 29.8 pg 27.5-35.[address] [facility] MCHC Auto (RBC) [Mass/Vol]Or dered By: Terell Amor on 05-07-2022 MCHC (RBC) [Mass/Vol] 32.5 g/dL 32.5-35.6 [facility] MCV Auto (RBC) [Entitic vol] Ordered By: Terell Amor on 05-07-2022 MCV (RBC) [Entitic vol] 91.6 fL 83.5-[address] [facility] Monocytes Auto (Bld) [#/Vol] Ordered By: Terell Amor on 05-07-2022 Monocytes (Bld) [#/Vol] 0.9 10*3/uL 0.0-0.[address] [facility] Monocytes/100 WBC Auto (Bld) Ordered By: Terell Amor on 05-07-2022 Monocytes/100 WBC (Bld) 7.4 % . [facility] Neutrophils Auto (Bld) [#/Vo l]Ordered By: Terell Amor on 05-07-2022 Neutrophils (Bld) [#/Vol] 8.6 10*3/uL 1.8-7.[address] [facility] Neutrophils/100 WBC Auto (Bl d)Ordered By: Terell Amor on 05-07-2022 Neutrophils/100 WBC (Bld) 71.2 % . [facility] Nitrite Test strip Ql (U)Ord ered By: Terell Amor on 05-07-2022 Nitrite Ql (U) Negative Negative [facility] No Panel InformationOrdered By: Terell Amor on 05-07-2022 Estimated GFR () 57 mL/Min [facility] Comment on above: GFR estimated refere nce range: According to KDOQI guidelines, <60 ml/min/1.73m2 is sufficient to diagnose a patient with chronic kidney disease. Pharmacy Creatinine Clearance (Chem N/A [facility] Platelet mean volume Auto (B ld) [Entitic vol]Ordered By: Terell Amor on 05-07-2022 Platelet mean volume (Bld) [Entitic vol] 8.9 fL 6.6-10.[address] [facility] Platelets Auto (Bld) [#/Vol] Ordered By: Terell Amor on 05-07-2022 Platelets (Bld) [#/Vol] 233 10*3/uL 150-[address] [facility] Protein Auto test strip (U) [Mass/Vol]Ordered By: Terell Amor on 05-07-2022 Protein (U) [Mass/Vol] 30 mg/dL Negative [facility] RBC Auto (Bld) [#/Vol]Ordere d By: Terell Amor on 05-07-2022 RBC (Bld) [#/Vol] 4.81 10*6/uL 3.90-5.60 [facility] Serum or plasma calcium lucius urement (mass/volume)Ordered By: Terell Amor on 05-07-2022 Calcium [Mass/Vol] 9.7 mg/dL 8.2-10.2 [facility] Serum or plasma chloride shira surement (moles/volume)Ordered By: Terell Amor on 05-07-2022 Chloride [Moles/Vol] 104 mmol/L 95-114 [facility] Serum or plasma glucose lucius urement (mass/volume)Ordered By: Terell Amor on 05-07-2022 Glucose [Mass/Vol] 99 mg/dL 70-100 [facility] Comment on above: ADA recommended refe [...] on 05-07-2022 Potassium [Moles/Vol] 4.5 mmol/L 3.5-5.1 [facility] Serum or plasma sodium measu rement (moles/volume)Ordered By: Terell Amor on 05-07-2022 Sodium [Moles/Vol] 134 mmol/L 136-146 [facility] Serum or plasma total carbon dioxide measurement (moles/volume)Ordered By: Terell Amor on 05-07-2022 CO2 [Moles/Vol] 17.6 mmol/L 22.0-30.0 [facility] Serum or plasma urea nitroge n measurement (mass/volume)Ordered By: Terell Amor on 05-07-2022 Urea nitrogen [Mass/Vol] 19 mg/dL 9-[address] [facility] Specific gravity Auto test s trip (U) [Rel density]Ordered By: Terell Amor on 05-07-2022 Specific gravity (U) [Rel density] 1.027 1.001-1.[address] [facility] Squamous epithelial cells de tection in urine sediment by light microscopyOrdered By: Terell Amor on 05-07-2022 Epithelial cells.squamous LM Ql (Urine sed) None seen [HPF] 0-[address] [facility] Urine bacteria detection by automated methodOrdered By: Terell Amor on 05-07-2022 Bacteria Auto Ql (U) None seen None Seen [facility] Urine clarity by refractomet ry automatedOrdered By: Terell Amor on 05-07-2022 Clarity Refractometry automated (U) Clear Clear [facility] Urine glucose measurement by automated test strip (mass/volume)Ordered By: Terell Amor on 05-07-2022 Glucose Auto test strip (U) [Mass/Vol] >=1000 mg/dL Normal [facility] Urine hemoglobin detection b y automated test stripOrdered By: Terell Amor on 05-07-2022 Hemoglobin Auto test strip Ql (U) Negative Negative [facility] Urine leukocyte esterase det ection by automated test stripOrdered By: Terell Amor on 05-07-2022 Leukocyte esterase Auto test strip Ql (U) Negative Negative [facility] Urobilinogen Auto test strip (U) [Mass/Vol]Ordered By: Terell Amor on 05-07-2022 Urobilinogen (U) [Mass/Vol] Normal mg/dL Normal [facility] pH Auto test strip (U)Ordere d By: Terell Amor on 05-07-2022 pH (U) 5.0 [pH] 5.0-9.[address] [facility] MRI HIP LT WO CONon 08-30-20 21 MRI HIP LT WO CON EXAM: MRI [...] on the right seen on the large [id number] STIR images. No paralabral cyst is evident. [...] by: DENIZ FAN Date: 2021-08-30 14:51 Normal [facility] XR ARTHRO HIP LT EXPon 08-30 XR [...] by: ALFREDO LEWIS Date: 2021-08-30 08:29 Normal [facility] Vital Signs Date Time Vital Sign Value Performing Clinician Facility 07-24-2023 11:45-0400 Diastolic blood pressure 86 mm[Hg] MD Ganga Hernandez Work Phone: [facility] 07-24-2023 11:45-0400 Heart rate 65 /min MD Ganga Hernandez Work Phone: [facility] 07-24-2023 11:45-0400 Respiratory rate 20 /min MD Ganga Hernandez Work Phone: [facility] 07-24-2023 11:45-0400 SaO2% (BldA) [Mass fraction] 97 % MD Ganga Hernandez Work Phone: [facility] 07-24-2023 11:45-0400 Systolic blood pressure 147 mm[Hg] MD Ganga Hernandez Work Phone: [facility] 07-24-2023 08:17-0400 Body height 177.8 cm MD Ganga Hernandez Work Phone: [facility] 07-24-2023 08:17-0400 Body temperature 97.2 [degF] MD Ganga Hernandez Work Phone: [facility] 07-24-2023 08:17-0400 Body weight 106.8 kg MD Ganga Hernandez Work Phone: [facility] 07-13-2023 15:13-0400 Body temperature 97.8 [degF] MD Ganga Hernandez Work Phone: [facility] 07-13-2023 15:13-0400 Diastolic blood pressure 83 mm[Hg] MD Ganga Hernandez Work Phone: [facility] 07-13-2023 15:13-0400 Heart rate 77 /min MD Ganga Hernandez Work Phone: [facility] 07-13-2023 15:13-0400 Respiratory rate 16 /min MD Ganga Hernandez Work Phone: [facility] 07-13-2023 15:13-0400 SaO2% (BldA) [Mass fraction] 95 % MD Ganga Hernandez Work Phone: [facility] 07-13-2023 15:13-0400 Systolic blood pressure 132 mm[Hg] MD Ganga Hernandez Work Phone: [facility] 07-12-2023 11:15-0400 Body height 180.34 cm MD Ganga Hernandez Work Phone: [facility] 07-12-2023 05:57-0400 Body weight 106.5 kg MD Ganga Hernandez Work Phone: [facility] 06-07-2023 13:17-0400 Body height 180.34 cm MD Ganga Hernandez Work Phone: [facility] 06-07-2023 13:17-0400 Body temperature 98.5 [degF] MD Ganga Hernandez Work Phone: [facility] 06-07-2023 13:17-0400 Body weight 106 kg MD Ganga Hernandez Work Phone: [facility] 06-07-2023 13:17-0400 Diastolic blood pressure 81 mm[Hg] MD Ganga Hernandez Work Phone: [facility] 06-07-2023 13:17-0400 Heart rate 72 /min MD Ganga Hernandez Work Phone: [facility] 06-07-2023 13:17-0400 SaO2% (BldA) [Mass fraction] 99 % MD Ganga Hernandez Work Phone: [facility] 06-07-2023 13:17-0400 Systolic blood pressure 132 mm[Hg] MD Ganga Hernandez Work Phone: [facility] 04-11-2023 11:24-0400 Body height 179.07 cm Ganga Guzman David Work Phone: [facility] [address] DO Work Phone: 04-11-2023 11:24-0400 Body mass index (BMI) [Ratio] 31.4 kg/m2 Ganga Hernandez Work Phone: [facility] [address] DO Work Phone: 04-11-2023 11:24-0400 Body surface area Derived from formula 2.19 m2 Ganga Guzman David Work Phone: [facility] [address] DO Work Phone: 04-11-2023 11:24-0400 Body weight 100.7 kg Ganga Hernandez Work Phone: [facility] [address] DO Work Phone: 04-11-2023 11:24-0400 Diastolic blood pressure 72 mm[Hg] Ganga Guzman David Work Phone: [facility] [address] DO Work Phone: 04-11-2023 11:24-0400 Heart rate 66 /min Ganga Guzman David Work Phone: [facility] [address] DO Work Phone: 04-11-2023 11:24-0400 Systolic blood pressure 122 mm[Hg] Ganga Hernandez Work Phone: [facility] [address] DO Work Phone: 02-06-2023 16:00-0400 Diastolic blood pressure 77 mm[Hg] MD Ganga Hernandez Work Phone: [facility] 02-06-2023 16:00-0400 Heart rate 71 /min MD Ganga Hernandez Work Phone: [facility] 02-06-2023 16:00-0400 Respiratory rate 18 /min MD Ganga Hernandez Work Phone: [facility] 02-06-2023 16:00-0400 SaO2% (BldA) [Mass fraction] 94 % MD Ganga Hernandez Work Phone: [facility] 02-06-2023 16:00-0400 Systolic blood pressure 131 mm[Hg] MD Ganga Hernandez Work Phone: [facility] 02-06-2023 11:44-0400 Body temperature 98.1 [degF] MD Ganga Hernandez Work Phone: [facility] 02-06-2023 03:28-0400 Body weight 105.6 kg MD Ganga Hernandez Work Phone: [facility] 02-05-2023 21:02-0400 Body height 177.8 cm MD Ganga Hernandez Work Phone: [facility] 10-11-2022 16:00-0500 Body height 180.34 cm Brandon Castañeda Other [employer] [facility] [employer] Other 10-11-2022 16:00-0500 Body mass index (BMI) [Ratio] 33.05 kg/m2 Brandon Castañeda Other [employer] Other 10-11-2022 16:00-0500 Body weight 107.5 kg Brandon Castañeda Other [employer] Other 10-11-2022 16:00-0500 Diastolic blood pressure 70 mm[Hg] Brandon Castañeda Other [employer] Other 10-11-2022 16:00-0500 SaO2% (BldA) [Mass fraction] 96 % Brandon Castañeda Other [facility] [employer] Other 10-11-2022 16:00-0500 Systolic blood pressure 132 mm[Hg] Brandon Castañeda Other [facility] [employer] Other 10-08-2022 10:33-0500 Body height 180.34 cm MD Ganga Hernandez Work Phone: [facility] 10-08-2022 10:33-0500 Body weight 108.3 kg MD Ganga Hernandze Work Phone: [facility] 10-08-2022 10:33-0500 Diastolic blood pressure 75 mm[Hg] MD Ganga Hernandez Work Phone: [facility] 10-08-2022 10:33-0500 Heart rate 68 /min MD Ganga Hernandez Work Phone: [facility] 10-08-2022 10:33-0500 Respiratory rate 18 /min MD Ganga Hernandez Work Phone: [facility] 10-08-2022 10:33-0500 SaO2% (BldA) [Mass fraction] 96 % MD Ganga Hernandez Work Phone: [facility] 10-08-2022 10:33-0500 Systolic blood pressure 123 mm[Hg] MD Ganga Hernandez Work Phone: [facility] 10-03-2022 19:57-0500 Body temperature 97.8 [degF] MD Ganga Hernandez Work Phone: [facility] 10-03-2022 19:57-0500 Diastolic blood pressure 90 mm[Hg] MD Ganga Hernandez Work Phone: [facility] 10-03-2022 19:57-0500 Heart rate 76 /min MD Ganga Hernandez Work Phone: [facility] 10-03-2022 19:57-0500 Respiratory rate 16 /min MD Ganga Hernandez Work Phone: [facility] 10-03-2022 19:57-0500 SaO2% (BldA) [Mass fraction] 98 % MD Ganga Hernandez Work Phone: [facility] 10-03-2022 19:57-0500 Systolic blood pressure 159 mm[Hg] MD Ganga Hernandez Work Phone: [facility] 10-03-2022 05:44-0500 Body weight 103.8 kg MD Ganga Hernandez Work Phone: [facility] 10-02-2022 15:59-0500 Body height 180.34 cm MD Ganga Hernandez Work Phone: [facility] 10-02-2022 01:52-0500 Body height 180.34 cm MD Ganga Hernandez Work Phone: [facility] 10-02-2022 01:52-0500 Body temperature 97.6 [degF] MD Ganga Hernandez Work Phone: [facility] 10-02-2022 01:52-0500 Body weight 105.9 kg MD Ganga Hernandez Work Phone: [facility] 10-02-2022 01:52-0500 Diastolic blood pressure 89 mm[Hg] MD Ganga Hernandez Work Phone: [facility] 10-02-2022 01:52-0500 Heart rate 77 /min MD Ganga Hernandez Work Phone: [facility] 10-02-2022 01:52-0500 Respiratory rate 16 /min MD Ganga Hernandez Work Phone: [facility] 10-02-2022 01:52-0500 SaO2% (BldA) [Mass fraction] 98 % MD Ganga Hernandez Work Phone: [facility] 10-02-2022 01:52-0500 Systolic blood pressure 169 mm[Hg] MD Ganga Hernandez Work Phone: [facility] 08-29-2022 14:00-0500 Body height 180.34 cm Brandon Castañeda Other [employer] Other 08-29-2022 14:00-0500 Body mass index (BMI) [Ratio] 32.35 kg/m2 Brandon Castañeda Other [employer] Other 08-29-2022 14:00-0500 Body weight 105.24 kg Brandon Castañeda Other [employer] Other 08-29-2022 14:00-0500 Diastolic blood pressure 70 mm[Hg] Brandon Castañeda Other [employer] Other 08-29-2022 14:00-0500 SaO2% (BldA) [Mass fraction] 98 % Brandon Castañeda Other [employer] Other 08-29-2022 14:00-0500 Systolic blood pressure 110 mm[Hg] Brandon Castañeda Other [employer] Other 07-26-2022 12:25-0400 Diastolic blood pressure 85 mm[Hg] [facility] [employer] Work Phone: [facility] 07-26-2022 12:25-0400 Heart rate 79 /min [facility] Work Phone: [facility] 07-26-2022 12:25-0400 Respiratory rate 14 /min [facility] [employer] [facility] Work Phone: [facility] 07-26-2022 12:25-0400 SaO2% (BldA) [Mass fraction] 95 % [facility] Work Phone: [facility] 07-26-2022 12:25-0400 Systolic blood pressure 139 mm[Hg] [facility] Work Phone: [facility] 07-26-2022 10:54-0400 Body temperature 97.9 [degF] [facility] Work Phone: [facility] 07-26-2022 10:54-0400 Inhaled oxygen flow rate 10 L/min [facility] Work Phone: [facility] 07-26-2022 08:34-0400 Body height 180.34 cm [facility] Work Phone: [facility] 07-26-2022 08:34-0400 Body mass index (BMI) [Ratio] 30.7 kg/m2 [facility] Work Phone: [facility] 07-26-2022 08:34-0400 Body weight 99.79 kg [facility] Work Phone: [facility] 06-15-2022 15:15-0400 Diastolic blood pressure 75 mm[Hg] [facility] Work Phone: [facility] 06-15-2022 15:15-0400 Heart rate 82 /min [facility] Work Phone: [facility] 06-15-2022 15:15-0400 Respiratory rate 20 /min [facility] Work Phone: [facility] 06-15-2022 15:15-0400 SaO2% (BldA) [Mass fraction] 95 % [facility] Work Phone: [facility] 06-15-2022 15:15-0400 Systolic blood pressure 115 mm[Hg] [facility] Work Phone: [facility] 06-15-2022 14:49-0400 Body height 177.8 cm [facility] Work Phone: [facility] 06-15-2022 14:49-0400 Body mass index (BMI) [Ratio] 31.5 kg/m2 [facility] Work Phone: [facility] 06-15-2022 14:49-0400 Body weight 99.79 kg [facility] Work Phone: [facility] 06-15-2022 14:45-0400 Inhaled oxygen flow rate 8 L/min [facility] [employer] [facility] Work Phone: [facility] 06-15-2022 11:59-0400 Body temperature 98.1 [degF] Services [employer] Work Phone: [facility] 06-08-2022 10:20-0400 Body height 180.34 cm Mart Henry Other [employer] Other 06-08-2022 10:20-0400 Body mass index (BMI) [Ratio] 33.89 kg/m2 Mart Henry Other [employer] Other 06-08-2022 10:20-0400 Body weight 110.22 kg Mart Henry Other [employer] Other 05-24-2022 13:38-0400 Diastolic blood pressure 80 mm[Hg] Services [employer] [facility] Work Phone: [facility] 05-24-2022 13:38-0400 Heart rate 70 /min [facility] [employer] Work Phone: [facility] 05-24-2022 13:38-0400 Respiratory rate 16 /min [facility] [employer] Work Phone: [facility] 05-24-2022 13:38-0400 SaO2% (BldA) [Mass fraction] 95 % Services [facility] Work Phone: [facility] 05-24-2022 13:38-0400 Systolic blood pressure 130 mm[Hg] Services [employer] [facility] Work Phone: [facility] 05-24-2022 12:27-0400 Body height 182.88 cm [facility] [employer] Work Phone: [facility] 05-24-2022 12:27-0400 Body mass index (BMI) [Ratio] 30.2 kg/m2 [facility] [employer] Work Phone: [facility] 05-24-2022 12:27-0400 Body weight 101 kg [facility] Work Phone: [facility] 05-24-2022 10:23-0400 Body temperature 98.3 [degF] [facility] Work Phone: [facility] 05-22-2022 11:10-0400 Blood Pressure Location Mark Anthony NAYLOR [facility] 05-22-2022 11:10-0400 Diastolic blood pressure 81 mm[Hg] Mark Anthony NAYLOR [facility] 05-22-2022 11:10-0400 Heart rate 71 /min Mark Anthony NAYLOR [facility] 05-22-2022 11:10-0400 Systolic blood pressure 141 mm[Hg] Mark Anthony NAYLOR [facility] 05-19-2022 09:14-0400 Diastolic blood pressure 70 mm[Hg] [facility] Work Phone: [facility] 05-19-2022 09:14-0400 Heart rate 66 /min [facility] Work Phone: [facility] 05-19-2022 09:14-0400 Respiratory rate 18 /min [facility] Work Phone: [facility] 05-19-2022 09:14-0400 SaO2% (BldA) [Mass fraction] 95 % [facility] Work Phone: [facility] 05-19-2022 09:14-0400 Systolic blood pressure 136 mm[Hg] [facility] [employer] Work Phone: [facility] 05-19-2022 07:28-0400 Body height 177.8 cm [facility] [employer] Work Phone: [facility] 05-19-2022 07:28-0400 Body weight 99.79 kg [facility] [employer] Work Phone: [facility] 05-19-2022 07:27-0400 Body temperature 97.5 [degF] Services [employer] Work Phone: [facility] 04-19-2022 11:40-0400 Body height 180.34 cm Mart Henry Other [employer] Other 04-19-2022 11:40-0400 Body mass index (BMI) [Ratio] 33.94 kg/m2 Mart Henry Other [employer] Other 04-19-2022 11:40-0400 Body weight 110.41 kg Mart Henry Other [employer] Other 09-26-2021 15:40-0500 Body height 180.34 cm Mart Henry Other [employer] Other 09-26-2021 15:40-0500 Body mass index (BMI) [Ratio] 33.47 kg/m2 Mart Henry Other [employer] Other 09-26-2021 15:40-0500 Body weight 108.86 kg Mart Henry Other [employer] Other 09-26-2021 15:40-0500 Diastolic blood pressure 68 mm[Hg] Mart Henry Other [employer] Other 09-26-2021 15:40-0500 Systolic blood pressure 129 mm[Hg] Mart Henry Other [employer] Other Encounters Encounter Date Encounter Type Care Provider Facility Start: 07-02-2024 ambulatory Norris VINCENT Facili ty:[id number] Start: 06-05-2024 End: 06-05-2024 ambulatory Norris VINCENT Facility:[id number] Start: 03-04-2024 End: 03-04-2024 ambulatory GANGA HERNANDEZ Not Available Start: 02-20-2024 End: 02-20-2024 ambulatory GANGA Thomas DAVID Not Available Start: 11-11-2023 End: 11-11-2023 ambulatory GANGA Guzman DAVID Not Available Start: 07-24-2023 End: 07-24-2023 Emergency department patient visit Jose Hernandez Facility:[facility] Start: 07-24-2023 End: 07-24-2023 Emergency department patient visit MD Ganga Hernandez Work Phone: [facility] Work Phone: Start: 07-11-[address] Ganga Hernandez Facility:[id number] Start: 07-11-2023 End: 07-13-2023 ambulatory Shaila Sandeepnaseem Facility:[facility] Start: 07-11-2023 End: 07-13-2023 Evaluation and management of inpatient MD Ganga Hernandez Work Phone: [address] [facility] Work Phone: Start: 07-11-2023 End: 07-13-2023 observation encounter MD Ganga Hernandez Work Phone: [facility] Work Phone: Start: 06-21-2023 End: 06-21-2023 ambulatory MD Ganga Hernandez Work Phone: [facility] Work Phone: Start: 06-21-2023 End: 06-21-2023 Departed Referred MD Ganga Hernandez Work Phone: [facility] [place] [address] [place] Start: 06-21-2023 ambulatory Mark Anthony NAYLOR Facility :[facility] Start: 06-07-2023 End: 06-07-2023 ambulatory Mark Anthony Naylor Facility:[facility] Start: 06-07-2023 End: 06-07-2023 Patient encounter procedure MD Ganga Hernandez Work Phone: [facility] Work Phone: Start: 04-11-2023 Office outpatient vi sit 15 minutes Ganga Hernandez Work Phone: [facility] [address] DO Work Phone: Start: 04-11-[address] Demarco Galicia Facility: Start: 04-04-2023 End: 04-04-2023 ambulatory Mark Anthony Naylor Facility:[facility] Start: 04-04-2023 End: 04-04-2023 ambulatory MD Ganga Hernandez Work Phone: [facility] Work Phone: Start: 04-04-2023 End: 04-04-2023 Patient encounter procedure MD Ganga Hernandez Work Phone: [facility] [address] Work Phone: Start: 02-15-2023 Chart Update Ganga Hernandez Work Phone: [facility] [address] DO Work Phone: Start: 02-14-2023 ambulatory DEMARCO GALICIA Facilit y:[id number] Start: 02-13-2023 ambulatory DEMARCO GALICIA Facilit y:[id number] Start: 02-08-2023 Telephone encounter Demarco magallon DO Work Phone: [facility] [address] DO Work Phone: Start: 02-06-[address] Ganga Hernandez Facility:[id number] Start: 02-05-2023 End: 02-06-2023 Evaluation and management of inpatient MD Ganga Hernandez Work Phone: [facility] Work Phone: Start: 12-12-2022 End: 12-12-2022 ambulatory MD Ganga Hernandez Work Phone: [facility] Work Phone: Start: 12-12-2022 End: 12-12-2022 Patient encounter procedure MD Ganga Hernandez Work Phone: [facility]Ul[facility]ound [place] Work Phone: Start: 10-25-2022 End: 10-25-2022 ambulatory MD Ganga Hernandez Work Phone: [facility] Work Phone: Start: 10-25-2022 End: 10-25-2022 Departed Referred MD Ganga Hernandez Work Phone: [facility] [place] Start: 10-11-2022 End: 10-11-2022 ambulatory Brandon Castañeda Other [employer] Other Start: 10-11-2022 Office outpatient vi sit 25 minutes Brandondaniel Castañeda [facility] Start: 10-08-2022 End: 10-08-2022 ambulatory MD Ganga Hernandez Work Phone: [facility] Work Phone: Start: 10-08-2022 End: 10-08-2022 Patient encounter procedure MD Ganga Hernandez Work Phone: [facility]-Swb-Vehjlrjx Testing Start: 10-01-[address] Ganga Hernandez Facilit [id number] Start: 10-01-2022 End: 10-03-2022 Evaluation and management of inpatient MD Ganga Hernandez Work Phone: [facility] Start: 08-30-2022 End: 08-30-2022 ambulatory Brandon Castañeda Other [employer] Other Start: 08-30-2022 Telephone encounter Brandondaniel Castañeda [facility] Start: 08-29-2022 End: 08-29-2022 ambulatory Brandondaniel Castañeda Other [employer] Other Start: 08-29-2022 Office consultation new/estab patient 60 min Brandon Castañeda [facility] Start: 07-26-2022 End: 07-26-2022 Admission to same day surgery center Services [facility] Work Phone: [facility]Surgery [place] Start: 07-26-2022 End: 07-26-2022 ambulatory Services [facility] Work Phone: [facility] Work Phone: Start: 07-24-2022 End: 07-24-2022 ambulatory Services [facility] Work Phone: [facility] Work Phone: Start: 07-24-2022 End: 07-24-2022 Patient encounter procedure Services [facility] Work Phone: [facility]-Pre-Surgical Testing Start: 07-12-2022 End: 07-12-2022 Patient encounter procedure Services [facility] Work Phone: [facility] Ygx-Kcu-Amgtccrl Testing Start: 06-15-2022 End: 06-15-2022 Admission to same day surgery center [facility] Start: 06-13-2022 End: 06-13-2022 Patient encounter procedure Services [facility] Work Phone: [facility]-Pre-Surgical Testing Start: 06-08-2022 End: 06-08-2022 ambulatory Mart Henry Other [facility] [employer] Other Start: 06-08-2022 Office outpatient vi sit 15 minutes Mart Henry [facility] Start: 06-04-2022 End: 06-04-2022 Patient encounter procedure Services [facility] Work Phone: [facility]-XRay [place] Start: 05-24-2022 End: 05-24-2022 Admission to same day surgery center Services [facility] [place] Start: 05-22-2022 End: 05-22-2022 Patient encounter procedure Services [facility] Work Phone: [facility]-Pre-Surgical Testing Start: 05-22-2022 End: 05-22-2022 Patient encounter procedure Mark Anthony NAYLOR [facility] Start: 05-21-2022 End: 05-21-2022 Patient encounter procedure Services [facility] Work Phone: [facility]XRay [place] Start: 05-19-2022 End: 05-19-2022 Emergency department patient visit Services [facility] Work Phone: [facility]-Emergency Room Start: 05-07-2022 End: 05-07-2022 Patient encounter procedure Services [employer] Phone: [facility]-Pre-Surgical Testing Start: 05-02-2022 End: 05-02-2022 Patient encounter procedure Services [facility] Work Phone: [facility]-MRI [address] Start: 04-19-2022 End: 04-19-2022 ambulatory Mart Henry Other [facility] [employer] Other Start: 04-19-2022 Office outpatient vi sit 15 minutes Mart Henry [facility] Neurosurgery Start: 04-19-2022 End: 04-19-2022 Patient encounter procedure Services [facility] Work Phone: [facility]XRay [facility] Start: 09-26-2021 End: 09-26-2021 ambulatory Mart Henry Other [facility] [employer] Other Start: 09-26-2021 Office outpatient vi sit 15 minutes Mart Henry [facility] Neurosurgery Start: 08-29-2021 End: 08-29-[address] ALFREDO LEWIS Facility:H1 Cardiovascular stres s test abnormal Ganga Hernandez Work Phone: [facility] Heart-[facility] 250 DO Work Phone: Procedures Date Procedure [...] 10-01-2022 CT of head without contrast MD Ganga Hernandez Work Phone: Start: 10-01-2022 Plain chest X-ray MD Quiana Hernandez Work Phone: Start: 10-01-2022 SARS-CoV-2, Influenz a & RSV (PCR) MD Ganga Hernandez Work Phone: Start: 10-01-2022 Urine culture MD Ganga Hernandez Work Phone: Start: 07-26-2022 Local excision Services [facility] Work Phone: Start: 07-26-2022 Repair of umbilical hernia Services [facility] Work Phone: Start: 06-15-2022 Cystoscopy Services [facility] Work Phone: Start: 06-15-2022 Diagnostic radiograp hy of abdomen Services [employer] Phone: Start: 06-04-2022 Diagnostic radiograp hy of abdomen Services [employer] Phone: Start: 05-24-2022 Extracorporeal shock wave lithotripsy Services [facility] Work Phone: Start: 05-24-2022 Diagnostic radiograp hy of abdomen Services [employer] Phone: Start: 05-21-2022 Diagnostic radiograp hy of abdomen Services [employer] Phone: Start: 05-19-2022 CT of abdomen and pe lvis without contrast Services [employer] Phone: Start: 05-02-2022 MR lumbar spine wo con Services [facility] Work Phone: Start: 04-19-2022 X-ray of lumbar spin e, four views Services [employer] Phone: Start: 10-21-2016 Extracorporeal shock wave lithotripsy of calculus of kidney Mark Anthony NAYLOR Excision of cyst Ganga artis Work Phone: Hernia repair Ganga Hernandez Work Phone: Lithotripsy Ganga Hernandez Work Phone: Procedure on neck Ganga feliciano Work Phone: Tonsillectomy Ganga Hernandez Work Phone: Urine culture MD Ganga Hernandez Work Phone: Plan of Treatment Date Care Activity Detail Author Start: 07-13-[address] [facility] Start: 07-11-2023 Referral to neurologist [facility] Start: 07-11-2023 Hospital admission [facility] Start: 07-11-2023 Blood culture for ba cteria, including anaerobic screen Blood Culture [facility] Start: 06-21-2023 Extracorporeal shock wave lithotripsy OR Kidney ECSWL Single W/Cysto/Retro (Right) [facility] Start: 04-11-2023 FUV, Provider: Demarco Galicia, Status: Pen, Time: 11:20 AM FUV, Provider: Demarco Galicia, Status: Pen, Time: 11:20 AM [facility] [employer] 250 DO Work Phone: Start: 02-14-2023 REST ONLY, Provider: VIBHA HHVI NUCLEAR 01,[id number], Status: Pen, Time: 12:30 PM REST ONLY, Provider: VIBHA HHVI NUCLEAR 01,[id number], Status: Pen, Time: 12:30 PM [facility] 250 DO Work Phone: Start: 02-13-2023 STRESSNUC2, Provider : VIBHA HHVI NUCLEAR 01,[id number], Status: Pen, Time: 1:00 PM STRESSNUC2, Provider: VIBHA HHVI NUCLEAR 01,[id number], Status: Pen, Time: 1:00 PM [facility] 250 DO Work Phone: Start: 02-06-[address] [facility] Start: 02-05-2023 Referral to microbiology supervisor [facility] Start: 02-05-2023 Hospital admission [facility] Start: 10-25-2022 Revision of left tot al hip arthroplasty OR Total Hip Arthro MIS/Revision (Left) [facility] Start: 10-03-2022 Blood chemistry [facility] Start: 10-03-2022 End: 10-03-[address] [facility] Start: 10-02-2022 MR angiography of he ad with contrast MR angio MR brain wo/w con [facility] Start: 10-02-2022 MRI of neck vessels MR angio neck w con [facility] Start: 10-02-2022 Blood chemistry [facility] Start: 10-02-[address] [facility] Start: 10-01-2022 Physical therapy procedure [facility] Start: 10-01-2022 Referral to occupati onal therapist [facility] Start: 10-01-2022 Referral to speech a nd language therapy service [facility] Start: 10-01-2022 Doppler ultrasonogra phy of bilateral carotid arteries US carotid doppler BI [facility] Start: 10-01-2022 US.doppler Carotid a rteries - bilateral [facility] Start: 10-01-2022 Referral to neurologist [facility] Start: 07-26-[address] [facility] Start: 07-26-2022 End: 07-26-[address] [facility] Start: 07-24-[address] [facility] Start: 06-15-2022 End: 06-15-[address] [facility] Start: 06-15-2022 Cystoscopy OR Cysto/Retro/Stent/St one/Holmium Laser (Left) [facility] Start: 06-15-2022 Diagnostic radiograp hy of abdomen XR [facility] Start: 06-15-2022 End: 06-15-2022 Admission to same day surgery center Departed Surgical Day Care [facility] [place] Start: 06-13-2022 End: 06-13-2022 Patient encounter procedure Departed Clinical [facility] Testing Start: 06-04-2022 Diagnostic radiograp hy of abdomen XR [facility] Start: 06-04-2022 End: 06-04-2022 Patient encounter procedure Departed Clinical [facility]XRay [place] Start: 05-24-[address] [facility] Start: 05-24-2022 Extracorporeal shock wave lithotripsy OR Kidney ECSWL Single W/Cysto/Retro (Left) [facility] Start: 05-24-2022 Revision of left tot al hip arthroplasty OR Total Hip Arthro MIS/Revision (Left) [facility] Start: 05-24-2022 Diagnostic radiograp hy of abdomen XR KUB [facility] Start: 05-24-2022 End: 05-24-2022 Admission to same day surgery center Departed Surgical Day Care [facility] [place] Anion gap measurement [facility] Work Phone: Bacteria identified in Urine by Culture [facility] Basophils [#/volume] in Blood by Automated count [facility] Work Phone: Basophils/100 leukoc ytes in Blood by Automated count [facility] Work Phone: Calcium [Mass/volume ] in Serum or Plasma [facility] Work Phone: Calculated LDL pelon sterol level [facility] Work Phone: Carbon dioxide, tota l [Moles/volume] in Serum or Plasma [facility] Work Phone: Chloride [Moles/volu me] in Serum or Plasma [facility] Work Phone: Cholesterol [Mass/vo lume] in Serum or Plasma [facility] Work Phone: Cholesterol in HDL [Mass/volume] in Serum or Plasma [facility] Work Phone: Cholesterol.total/Ch olester ol in HDL [Mass Ratio] in Serum or Plasma [facility] Work Phone: Creatinine and Glome rular filtration rate.predicted panel - Serum, Plasma or Blood [facility] Work Phone: Eosinophils [#/volum e] in Blood [facility] Work Phone: Eosinophils/100 leuk ocytes in Blood by Automated count [facility] Work Phone: Erythrocyte distribu tion width [Ratio] by Automated count [facility] Work Phone: Erythrocytes [#/volu me] in Blood [facility] Work Phone: Glucose [Mass/volume ] in Serum or Plasma [facility] Work Phone: Hematocrit [Volume Fraction] of Blood [facility] Work Phone: Hemoglobin [Mass/vol ume] in Blood [facility] Work Phone: Leukocytes [#/volume ] corrected for nucleated erythrocytes in Blood by Automated coun [facility] Work Phone: Leukocytes [#/volume ] in Blood [facility] Work Phone: Lymphocytes [#/volum e] in Blood by Automated count [facility] Work Phone: Lymphocytes/100 leuk ocytes in Blood by Automated count [facility] Work Phone: MCH [Entitic mass] b y Automated count [facility] Work Phone: MCHC [Mass/volume] b y Automated count [facility] Work Phone: MCV [Entitic volume] by Automated count [facility] Work Phone: Measurement of renal function [facility] Work Phone: Monocytes [#/volume] in Blood by Automated count [facility] Work Phone: Monocytes/100 leukoc ytes in Blood by Automated count [facility] Work Phone: Neutrophils [#/volum e] in Blood by Automated count [facility] Work Phone: Neutrophils/100 leuk ocytes in Blood by Automated count [facility] Work Phone: Nucleated erythrocyt es [Presence] in Blood by Automated count [facility] Work Phone: Patient Education [facility] Work Phone: Patient referral [facility] Work Phone: Platelet mean volume [Entitic volume] in Blood by Automated count [facility] Work Phone: Platelets [#/volume] in Blood [facility] Work Phone: Potassium [Moles/vol ume] in Serum or Plasma [facility] Work Phone: SARS-CoV-2 (COVID-19 ) N gene [Presence] in Respiratory specimen by ANGÉLICA with probe detection [facility] Work Phone: Sodium [Moles/volume ] in Serum or Plasma [facility] Work Phone: Triglyceride [Mass/v olume] in Serum or Plasma [facility] Work Phone: Troponin I.cardiac [Mass/volume] in Serum or Plasma by High sensitivity method [facility] Work Phone: Urea nitrogen [Mass/ volume] in Serum or Plasma [facility] Work Phone: VLDL cholesterol measurement [facility] Work Phone: Immunizations Immunization Date Immunization Notes Care Provider Sohan mijares 09-20-2021 COVID-19 mRNA, Comirnaty (Pfizer) [facility] Work Phone: [facility] 03-23-2021 COVID-19 mRNA-1273 (Moderna) [facility] Work Phone: [facility] 02-23-2021 COVID-19 mRNA-1273 (Moderna) [facility] Work Phone: [facility] 10-21-2020 SARS-CoV-2 (COVID-19 ) mRNA-1273 vaccine Mark Anthony NAYLOR [facility] [place] Comment on above: Result Comment: 3 hi ccines Payers Date Payer Category Payer Medicare [id number] 2023 Self-pay [id number] 1961 Medicaid [id number] 1961 Medicare [id number] 1960 Unknown [id number] 2.16.84 [id number] 1958 Unknown [id number] 2.16.8 [id number] 1958 Unknown [id number] 2.16.8 40.1.043973.3.579.2.1068 1958 Unknown [id number] 2.16. 840.1.521090.3.579.2.356 1958 Unknown [id number] 2.16. 840.1.490581.3.579.2.356 1958 Unknown [id number] 2.16. 840.1.126085.3.579.2.356 1958 Unknown [id number] 2.16. 840.1.872756.3.579.2.356 1958 Unknown [id number] 2.16.84 0.1.667818.3.579.2.1259 1958 Unknown [id number] 2.16.84 0.1.694891.3.579.2.1259 1958 Unknown [id number] 2.16.84 0.1.409793.3.579.2.1259 1958 Unknown [id number] 2.16.8 40.1.577806.3.579.2.727 Medicaid [place] [employer] [id number] Medicaid Unknown MMO [id number] Unknown [place] BC/BS [id number] Unknown [id number] Unknown Unknown [id number] 2.16.8 40.1.909572.3.579.2.531 Unknown [id number] 2.16.8 40.1.040400.3.579.2.531 Unknown [id number] 2.16.8 40.1.165502.3.579.2.531 Unknown [id number] 2.16.8 40.1.624076.3.579.2.531 Unknown [id number] 2.16.8 40.1.579558.3.579.2.531 Social History Date Type Detail Facility Sex Assigned At [facility] [employer] Other Start: 10-19-2020 End: 02-06-2023 Tobacco smoking status Ex-smoker (finding) [facility] Work Phone: Tobacco smoking status Never [facility] Start: 1960 Sex Assigned At Male F [facility] Start: 10-01-2022 End: 07-24-2023 Tobacco smoking status NHIS Never smoked tobacco (finding) [facility] No alcohol use No alcohol use [facility] 250 DO Work Phone: Comment on above: Occasional coffee; Quit 1999; Medical Equipment Procedure Code Equipment Code Equipment Original Text Equipment Identifier Dates Repair, hernia, umbilical Abdominal hernia surgical mesh, composite-polymer ()[id number] FDA Start: 07-26-2022 Extracorporeal shockwave lithotripsy (ESWL) with cystoscopic insertion of urinary glenn Polymeric ureteral stent ()[id number] FDA Start: 05-24-2022 Spinal fixation plate, non-bioabsorbable ()[id number] FDA Start: 03-15-2021 Spinal fixation plate, non-bioabsorbable ()[id number] FDA Start: 03-15-2021 Spinal fixation plate, non-bioabsorbable ()[id number] FDA Start: 03-15-2021 Intervertebral-b o dy internal spinal fixation system ()[id number] FDA Start: 03-15-2021 Goals Date Patient Goal Desired Activity /State Functional Status Date Assessment Result Facility 07-13-2023 Functional status Patient at Baseline [facility] Work Phone: 02-06-2023 Functional status Patient at Baseline [facility] Work Phone: 10-03-2022 Functional status Patient at Baseline [facility] Work Phone: 10-02-2022 Functional status Patient at Baseline [facility] Work Phone: 05-22-2022 Functional Status N/A [facility] Mental Status Date Assessment Result Facility 07-13-2023 Cognitive function Cognitive Sta tus Patient at Baseline [facility] Work Phone: 02-06-2023 Cognitive function Cognitive Sta tus Patient at Baseline [facility] Work Phone: 10-03-2022 Cognitive function Cognitive Sta tus Patient at Baseline [facility] Work Phone: 10-02-2022 Cognitive function Cognitive Sta tus Patient Not at Baseline [facility] Work Phone: Clinical Notes 09-26-2021 to 07-13-2023 Note Date & Type Note Facility 07-13-2023 Progress note Note Date/Time July 13, 2023 12:02pm [facility] [address] [place] [address] Neurology Progress Note Signed Patient: Rod Mathias MR#: [id number] : 1960 Acct:[id number] Age/Sex: 62 / M Adm Date: 3 Loc: 4N Room: 9R9682-6 Type: ADM INOo Attending Dr: Shaila Bowen [...] right lower extremity. No limb dysmetria with ahvweu-dyda-qmjxlg testing. DATA REVIEW: -CT head without any [...] signed by Mikey Rose DO> 07/13/23 1401 [facility] Work Phone: 1(552) 841-210409-22-2023 Progress note Author Shaila Bowen [facility] July 12, 2023 6:48pm Note Date/Time July 12, 2023 6:42pm [facility] [address] [place] [address] Hospitalist Progress Note Signed Patient: Rod Mathias MR#: [id number] : 1960 Acct:[id number] Age/Sex: 62 / M Adm Date: 3 Loc: 4N Room: [address] [place] [address] Type: ADM INOo Attending Dr: Shaila Bowen [...] Dose Route Start Last Admin Trade Name Oscar PRN Reason Stop Dose Admin Acetaminophen 650 [...] Flush Documented By: Shaila Bowen MD 07/12/23 183 Signed By: <Electronically signed by Shaila Bwoen MD> 07/12/23 1848 [facility] Work Phone: 1(243) 701-205009-22-2023 Consult note Author Mikey Rose [facility] July 12, 2023 3:35pm Note Date/Time July 12, 2023 12:20pm [facility] [address] [place] [address] Neurology Consult Note Signed Patient: Rod Mathias MR#: [id number] : 1960 Acct:[id number] Age/Sex: 62 / M Adm Date: 3 Loc: 4N Room: [address] [place] [address] Type: ADM INOo Attending Dr: Shaila Bowen MD Copies to: DO Shaila Ovalle MD Robert L Hill, MD~ HPI Consult Date: 07/12/23 Desizing Machine Back Tender: Mikey Rose DO [facility] Medical History Arthritis hips Back pain was [...] Arun Collier MD07/12/2023 10:17 AM Dictation Location: [facility] 07/11/23 16:38 IMPRESSION: No acute intracranial pathology. No significant interval change. Impression dictated by: Darien Roldan M.D.07/11/2023 5:32 PM Dictation Location: [place] [address] Chest X-Ray 07/11/23 16:39 IMPRESSION: There is cardiomegaly. There is mild perihilar vascular prominence. This may represent sequelae of congestive heart failure or volume overload. There is no focal consolidation. Impression dictated by: Darien Roldan M.D.07/11/2023 8:41 PM Dictation Location: [place] [address] Assessment/Plan (1) TIA (transient ischemic attack): Assessment/Problem [...] right lower extremity. No limb dysmetria with aksjbq-pits-guhgpq testing. Romberg negative but he has exaggerating [...] <Electronically signed by Mikey Rose DO> 07/12/23 1535 [facility] Work Phone: 1(595) 563-476709-22-2023 History and physical note Author Shaila Bowen [facility] July 12, 2023 12:47am Note Date/Time July 11, 2023 8:11pm [facility] [address] [place] [address] Hospitalist H&P Signed Patient: Rod Mathias MR#: [id number] : 1960 Acct:[id number] Age/Sex: 62 / M Adm Date: 3 Loc: 4N Room: [address] [place] [address] Type: ADM INOo Attending Dr: Shaila Bowen [...] care Discussed with:?the medical team, the patient [facility] Medical History Arthritis hips Back pain was [...] % (Auto) 27.5 % (.) 07/11/23 16:53 [place] % (Auto) 8.1 % (.) 07/11/23 16:53 Eos % (Auto) 1.0 % (.) 07/11/23 16:53 Baso % (Auto) 0.7 % (.) 07/11/23 16:53 Nucleat RBC Rel Count 0.1 /100 WBC (0-0.5) 07/11/23 16:53 Neut # (Auto) 5.6 x10E3/uL (1.8-7.7) 07/11/23 16:53 Lymph # (Auto) 2.4 x10E3/uL (1.00-4.8) 07/11/23 16:53 [place] # (Auto) 0.7 x10E3/uL (0.0-0.8) 07/11/23 16:53 [...] signed by Shaila Bowen MD> 07/12/23 0047 [facility] Work Phone: 1(382) 127-472512-22-2022 Evaluation note* Encounter Date Diagnosis Assessment Notes [...] activities of daily living. He continues taking Beulah and is requesting a refill of this [...] as prescribed and I will refill his Beulah as he feels this provides an element [...] - G89.29) Patient has continued need for Beulah. OARRS report processed and reviewed and shows no violations. Patient was educated on the risks and benefits of detention opioid use. Beulah was refilled today, opioid risk assessment was done as well as pill count. Patient is compliant with opioid medication. The patient denies any opioid related side effects. [employer] Other 11-10-2022 Evaluation note* Encounter Date Diagnosis Assessment Notes Treatment Notes Treatment Clinical Notes Aug, Arthritis of lumbosacral spine (ICD-10 - M47.817) [employer] Other 11-09-2022 Evaluation note* Encounter Date Diagnosis [...] time. In the meantime, I will prescribe Beulah twice daily as he feels this provides [...] - G89.29) Patient has continued need for Beulah. OARRS report processed and reviewed and shows no violations. 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 Beulah was prescribed today. Opioid contract was signed with Dr Castañeda and explained to the patient in detail, patient verbalizes an understanding. Opioid risk assessment was done. The patient denies any opioid related side effects in the past. UDS performed through [facility] today, will await confirmatory results. Aug, Other [...] negative findings were considered in medical decision-making. [employer] Other 10-01-2022 History general Narrative - Reported* Type Description Date Medical History Hypertension Medical History hyperlipidemia Medical History diabetes mallitus Surgical History Kidneys Surgical History ACDF-Doctor Henry Surgical History umbilical hernia repair 07/2022 Hospitalization History See Above Hospitalization History TIA, HTN, HPL, DMII 05/0 03/10 [facility] Other 10-01-2022 History general Narrative - Reported* Type Description Date Medical History Hypertension Medical History hyperlipidemia Medical History diabetes mallitus Surgical History Kidneys Surgical History ACDF-Doctor Henry Surgical History umbilical hernia repair 07/2022 Hospitalization History See Above Hospitalization History TIA, HTN, HPL, DMII 050 03/10 Hospitalization History TIA 09/2022 [facility] Other 09-22-2022 NoteHISTORY: Bone density screening COMPARISON: [...] and signed by Amol Vogt on 07/12/2022 [id number] Evaluation note* Encounter Date Diagnosis Assessment Notes [...] we will send a referral for him.. [facility] Other 08-02-2022 Hospital Discharge instructions Patient Education [...] include: ?Spinach. ?Rhubarb. ?Beets. ?Potato chips and yakut fries. ?Nuts. If you regularly take a diuretic medicine, make sure to eat at least 1 2 fruits or vegetables high in potassium each day. These include: ?Avocado. ?Banana. ?[place], prune, carrot, or tomato juice. ?Baked potato. [...] Casseroles. Pizza. Lasagna. Frozen meals. Potato chips. [place] Citizen fries. Summary You can reduce your risk [...] 02/01/2012 Document Revised: 01/27/2020 Document Reviewed: 09/17/2017 [employer] Patient Education 2020 [employer]. Follow Up Care 05/21/2022 14:04:05 With:KUMAR HAYS, Mark Anthony Child, URL Address: [facility] [address] [place] [address]- When: Unknown [facility] [id number] Evaluation note* Encounter Date Diagnosis Assessment Notes [...] L1 vertebra, initial encounter (ICD-10 - S32.010A) [facility] Other 12-07-2021 Evaluation note* Encounter Date Diagnosis [...] on an as-needed basis in the future. [facility] Other evaluation + Plan note No data available for this section [facility] Evaluation noteNo assessment information available [facility] Work Phone: Evaluation note* Diagnosis Onset Date Resolution Status Altered mental status acute Chest pain acute Confusion acute Dizziness acute Headache acute Speaking difficulty acute [facility] Work Phone: Evaluation note* Diagnosis Onset Date Resolution Status Altered mental status acute Chest pain acute Confusion acute Dizziness acute Headache acute Speaking difficulty acute TIA (transient ischemic attack) acute [facility] Work Phone: Evaluation note* Diagnosis Onset Date Resolution Status Chest pain acute Diabetes mellitus, type II a cute History of TIAs acute Hyperlipidemia acute Hypertension acute [facility] Work Phone: Evaluation note* Diagnosis Onset Date Resolution Status Altered mental status acute Syncope acute TIA (transient ischemic attack) acute [facility] Work Phone: History general Narrative - Reported* Type Description Date Medical History Hypertension Medical History hyperlipidemia Medical History diabetes mallitus Surgical History Kidneys Surgical History ACDF-Doctor Henry Hospitalization History See Above Hospitalization History TIA, HTN, HPL, DMII 050 03/10 [facility] [employer] Other Hospital Discharge instructions Additional Instructions 1. No driving if taking narcotic pain medication. 2. No lifting more than 20 pounds for 3 weeks. 3. After 2 days, can remove top dressing and may shower.[facility] Work Phone: Hospital Discharge instructions Additional Instructions If your symptoms return/worsen or you develop any further concerns or symptoms please see your doctor or return to the emergency department immediately.[facility] Work Phone: Progress note No data available for this section [facility] Summary Purpose Family History No Family History [...] L1 vertebra, initial encounter (S32.010A) Referral Organization [facility] Referring Provider First Name Mart Referring Provider Last Name Carl Referring Provider Specialty Neurologica l Surgery [facility] Referred Address [address] [place], [place],[address] Referred Provider Specialty DME Referral Priority Routine [...] ROD MATHIAS is being seen for mpx results/[facility] [place] d/c 02/06. * Patient is a 62-year-old gentleman here for follow-up following recent stress testing. He was seen in consultation in the hospital in January, ruled out for NM, had low CATHERINE risk score; has underlying [...] DATE CREATED AUTHOR AUTHOR'S ORGANIZ ATION 11/02/2022 [facility] Special[facility] DATE CREATED AUTHOR AUTHOR'S ORGANIZ ATION 04/12/2023 [employer] DATE CREATED AUTHOR AUTHOR'S ORGANIZ ATION 04/27/2023 [facility] DATE CREATED AUTHOR AUTHOR'S ORGANIZ ATION 08/02/2023 [facility] DATE CREATED AUTHOR AUTHOR'S ORGANIZ ATION 02/20/[address] [facility] DATE CREATED AUTHOR AUTHOR'S ORGANIZ ATION 03/06/2024 [facility] Specialists EPIC DATE CREATED AUTHOR AUTHOR'S ORGANIZ ATION 06/13/2024 [facility] REASON FOR VISIT (unrecogniz ed section and content) 6 months po ACDFback painMRI L/S resultsREF BY DR AMOR FOR LEFT HIP OSTEOARTHRITISNo Informationincrease hip pain Care Team (unrecognized sect ion and content) Team Status: Inactive Member Role Status Eloy Hernandez MD Primary Care Provider Active Mark Anthony Naylor MD Attending Provider Active Team Status: Inactive Member Role Status On License Of [facility] Primary Care Provider Active Terell Amor Jr, DO Attending Provider Active Team Status: Inactive Member Role Status On License Of [facility] Primary Care Provider Active César Arreaga DO Emergency Provider Active Team Status: Inactive Member Role Status On License Of [facility] Primary Care Provider Active Mart Henry MD Attending Provider Active Team Status: Active Member Role Status Eloy Hernandez MD Primary Care Provider Active Team Status: Inactive Member Role Status Eloy Hernandez MD Primary Care Provider Active Zheng Iraheta MD Attending Provider Active Team Status: Active Member Role Status Eloy Hernandez MD Primary Care Provider Active Spike Estrada DO Emergency Provider Active Sayra Hutchinson DO RES Active Shaila Bowen MD Admit Provider, Attending Provider Active Team Status: Inactive Member Role Status Eloy Hernandez MD Primary Care Provider Active Spike Estrada DO Emergency Provider Active Sayra Hutchinson DO RES Active Shaila Bowen MD Admit Provider, Attending Provider Active Mikey Rose , DO Other Provider Active Team Status: Inactive Member Role Status Eloy Hernandez MD Primary Care Provider Active Terell Amor Jr, DO Attending Provider Active Team Status: Inactive Member Role Status Eloy Hernandez MD Primary Care Provider Active Deniz Lacey MD Emergency Provider Active Lilia Bowers MD Admit Provider, Attending Provide r Active Ingrid Evans RN Other Provider Active Lars Galicia , DO Other Provider Active Nilo Roach MD Other Provider Active Demarco Justin MD Other Provider Active Joann Hopson MD Other Provider Active Kenny Alexander MD Other Provider Active Crystal Lacey APRN Other Provider Active Sarita Johnson MD Other Provider Active Ira Do MD Other Provider Active Sandy Hamilton MD Other Provider Active Jeanne Martinez , [facility] Other Provider Active Roxy Sandoval MD Other Provider Active Team Status: Inactive Member Role Status Dates César Arreaga , DO Emergency Provider Active Ganga Hernandez MD Primary Care Provider Active Shaila Bowen MD Admit Provider, Attending Provider Active Mikey Rose , DO Other Provider Active Team Status: Inactive Member Role Status Eloy Hernandez MD Primary Care Provider Active Jose Hernandez , DO Emergency Provider Active FOR RECORDS PERTAINING [...] BE BASED ON THE PRIMARY CLINICAL RECORDS. [facility] [employer] provides no warranty or guarantee of the accuracy or completeness of information in this document.
[2024-06-18] MEDS: BACLOFEN 10 MG TABLET 20 MG PO (07:00)
[2024-06-18] MEDS: PHENAZOPYRIDINE 100 MG TABLET 200 MG PO (07:00)
[2024-06-18 07:03] VITALS: BP 132/74; PULSE 59; O2SAT 94
[2024-06-18 07:33] LABS: Amphetamine Screen Urine NEGATIVE (NEGATIVE); Barbiturates Screen Urine NEGATIVE (NEGATIVE); Benzodiazepines Screen Urine POSITIVE (NEGATIVE); Cannabinoid Screen Urine NEGATIVE (NEGATIVE); Cocaine Screen Urine NEGATIVE (NEGATIVE); Methadone Screen Urine NEGATIVE (NEGATIVE); Methamphetamines Screen Urine NEGATIVE (NEGATIVE); Opiate Screen Urine POSITIVE (NEGATIVE); Oxycodone Screen Urine NEGATIVE (NEGATIVE); Phencyclidine Screen Urine NEGATIVE (NEGATIVE); Tricyclic Antidepressant Urine NEGATIVE (NEGATIVE)
[2024-06-18 07:34] LABS: Buprenorphine Screen Urine NEGATIVE (NEGATIVE)
[2024-06-18] MEDS: MORPHINE SULFATE 2 MG/ML SYRINGE IV (07:58)
== END 2024-06-18 09:14 | disposition home or self-care (01) ==
PROVIDERS: Emergency Medicine; Emergency Provider Internal Medicine; PCP Internal Medicine
DX: N20.0 Calculus of kidney (principal); M54.9 Dorsalgia, unspecified; G89.29 Other chronic pain; Z87.891 Personal history of nicotine dependence; Z96.0 Presence of urogenital implants
CPT/HCPCS: 36415; 74176; 80048; 80307; 81001; 85025; 87086; 87150; 87186; 96374; 96375; 99284; J1885; J2270; J2405

== ENCOUNTER 2024-06-24 14:41 | Outpatient (OUT) | payer MEDICARE, MEDICAID, SELFPAY | END 2024-06-24 14:42 | disposition home or self-care (01) | LOC: PST 14:42 | PROVIDERS: PCP Internal Medicine; Visit Provider Urology | DX: Z01.818 Encounter for other preprocedural examination (principal); N20.1 Calculus of ureter ==

== ENCOUNTER 2024-06-30 07:14 | Day surgery (SDC) | payer MEDICARE, MEDICAID, SELFPAY ==
[2024-06-30] VITALS (9 sets, daily range): BP systolic 130–168; BP diastolic 76–95; PULSE 71–103; TEMP 36.2; O2SAT 93–97; BMI 33.3
--- OUTSIDE RECORDS SUMMARY | 2024-06-30 07:20 | XMS_ITS | CCD ---
Author Organization [facility] [place] [facility] Care Team Providers Care Research Spec Name Role Phone DR ALFREDO LEWIS Consulting Unavailable LISETTE, DR CHANG Attending Unavailable LISETTE, DR CHANG Admitting [facility] CULVER Primary Care Unavailable LISETTE, DR CHANG Consulting Unavailable DENIZ FAN Consulting Unavailable Mart Henry Unavailable [facility], . Primary Care Physician [phone] [facility] Primary Care Provider [phone] MD Mart Henry Attending Provider DO Terell Amor Jr Attending Provider DO César Arreaga Emergency Provider MD Ganga Hernandez Primary Care Provider [phone] MD Mark Anthony Naylor Attending Provider MD Zheng Iraheta Attending Provider [facility] Primary Care Provider MD Mart Henry Attending Provider GarryBrandon Unavailable MD Ganga Hernandez Primary Care Provider MD Zheng Iraheta Attending Provider DO Spike Estrada Emergency Provider [phone] MD Shaila Bowen Admit Provider MD Shaila Bowen Attending Provider DO Mikey Rose Other Provider DO Terell Amor Jr Attending Provider MD Ganga Hernandez Primary Care Provider MD Mark Anthony Naylor Attending Provider [phone] DO Spike Estrada Emergency Provider Unavailab Ganga Ramirez Unavailable MD Ganga Hernandez Primary Care Provider [phone] MD Deniz Lacey Emergency Provider MD Lilia [...] Provider MD Sandy Hamilton Other Provider [facility] Jeanne Guzman Other Provider MD Roxy Sandoval Other Provider MD Mark Anthony Naylor Attending Provider DEMARCO GALICIA Attending Unavailable Dr. Ganga Hernandez Primary Care Unavailab DEMARCO Sierra Attending Unavailable Dr. Ganga Hernandez Primary Care Unavailab MD Ganga Ramirez Primary Care Provider MD Mark Anthony Naylor Attending Provider [phone] DO César Arreaga Emergency Provider [phone] MD Shaila Bowen Admit Provider MD Shaila Bowen Attending Provider [phone] DO Mikey Rose Other Provider DO Jose Hernandez Emergency Provider Edil Dr. Ganga Everett Primary Care Unavailab sanna Galicia, Dr. Demarco Bauer Attending Sullivanva ilable Edil, Dr. Ganga Everett Primary Care Unavailab sanna Galicia, Dr. Demarco Bauer Attending Sullivanva waable Edil, Dr. Ganga Everett Primary Care Unavailab sanna Galicia, Dr. Demarco Bauer Referring Unava ilable Kumar, Mark Anthony Child Admitting Unavailable Cook, Mark Anthony Child Attending Unavailable Hill, Ganga Primary Care Unavailable Cook, Mark Anthony P Admitting Unavailable Cook, Mark Anthony P Attending Unavailable Hill, Ganga Primary Care Unavailable Wasnaseem, Shaila Attending Unavailable Hill, Ganga Primary Care Unavailable Mikey Rose Consulting Unavailable Wassouf, Shaila Admitting Unavailable Cook, Mark Anthony P Admitting Unavailable Cook, Mark Anthony P Attending Unavailable Hill, Ganga Primary Care Unavailable Kecat, Jose Caputo Admitting Unavailable Kecat, Jose Caputo Attending Unavailable Hill, Ganga Primary Care Unavailable HILL, GANGA Guzman Attending Unavailable HILL, GANGA Guzman Referring Unavailable HILL, GANGA Guzman Attending Unavailable HILL, GANGA Guzman Attending Unavailable HILL, GANGA Guzman Referring Unavailable ANUJ HAWK Attending Unavailable KUMAR, Mark Anthony Child Attending Unavailable VINCENT, Norris Street Attending Unavailable VINCENT, Norris Street Attending Unavailable VINCENT, Norris R Referring Unavailable Allergies Allergy Classification Reported Allergen(s) Allergy Type Date of Onset Reaction(s) Facility (1 source) No Known Medication Allergies; Translations: [No Known Medication Allergies] Propensity to adverse reactions (disorder) [facility] Repository Medications Current Medications Medication [...] Hydrocodone-Acetaminophen Discontinued 1 TAB PO Q6H 28 July 26, 2022 October 02, 2022 1:11pm Start: 05-19-2022 End: 10-01-2022 take 1 tablet by mouth every four to six hours Hydrocodone-Acetaminophen Discontinued 1 TAB PO EVERY 4-6 HOURS 10 May 24, 2022 June 15, 2022 11:56am acetaminophen 325 mg / oxyCODONE hydrochloride 5 mg oral tablet (1 source) Opioid Agonist Start: 05-22-2022 End: 05-25-2022 take 1 tablet by mouth every four hours for pain acetaminophen-oxycodone 325 mg-5 mg oral tablet 1 tab(s), Oral, q4hr for pain for 3 day(s), 12 tab(s), Refill(s) 0, N20.0, [facility] [id number], 182, cm, 05/22/22 11:13:00 EDT, Height/Length Dosing, [...] source) Long-term current use of anticoagulant; Translations: [gem cutter (current) use of anticoagulants] Onset: 05-22-2022 Episodic [...] use] 10-19-2020 Episodic Comment on above: Quit 2000; Spondylosis; intervertebral disc disorders; other back problems [...] aPTT Coag (PPP) [Time] 28.7 s 25.1-36.5 [facility] Comment on above: A hematocrit value g reater than 55% may lead to inaccurate results in coagulation testing. Patients having hematocrit values >55% require a special collection tube for coagulation studies. Please contact the laboratory at [phone] for redraw instructions. Alanine aminotransferase [En zymatic activity/volume] in Serum or PlasmaOrdered By: Jose Hernandez on 07-24-2023 ALT [Catalytic activity/Vol] 15 U/L 7-52 [facility] Albumin [Mass/volume] in Ser um or Plasma by Bromocresol green (BCG) dye binding methoOrdered By: Jose Hernandez on 07-24-2023 Albumin BCG dye [Mass/Vol] 4.2 g/dL 3.5-5.7 [facility] Alkaline phosphatase [Enzyma tic activity/volume] in Serum or PlasmaOrdered By: Jose Hernandez on 07-24-2023 ALP [Catalytic activity/Vol] 91 U/L 34-104 [facility] Ammoniaon 07-24-2023 Ammonia (P) [Moles/Vol] 31 umol/L Normal 11-35 [facility] Comment on above: Result Comment: PERF ORMED BY: [place] [address] PATHOLOGIST DIRECTOR [employer]CHIT[employer]URE RADHA CARR M.D. Performed By: #### L IPID, BMP, LDLD, MG, CBCNO #### [address] Ammonia [Moles/volume] in Pl asmaOrdered By: Jose Hernandez on 07-24-2023 Ammonia (P) [Moles/Vol] 31 umol/L 11-35 [facility] Aspartate aminotransferase [ Enzymatic activity/volume] in Serum or PlasmaOrdered By: Jose Hernandez on 07-24-2023 AST [Catalytic activity/Vol] 12 U/L 13-39 [facility] Basophils Auto (Bld) [#/Vol] Ordered By: Jose Hernandez on 07-24-2023 Basophils (Bld) [#/Vol] 0.0 10*3/uL 0.0-0.2 [facility] Basophils/100 WBC Auto (Bld) Ordered By: Jose Hernandez on 07-24-2023 Basophils/100 WBC (Bld) 0.5 % . [facility] Bilirubin Test strip Ql (U)O rdered By: Jose Hernandez on 07-24-2023 Bilirubin Ql (U) Negative Negative [facility] Bilirubin.total [Mass/volume ] in Serum or PlasmaOrdered By: Jose Hernandez on 07-24-2023 Bilirubin [Mass/Vol] 0.5 mg/dL 0.3-1.[address] [facility] CT head/brain wo conon 07-24 CT head/[place] [address] CT Scan Report Signed Patient: Rod Mathias MR#: [id number] 1426 : 1960 Acct:[id number] Age/Sex: 62 / M ADM Date: 07/24/23 [...] Fischer Jr., D.O.07/24/2023 9:06 AM Dictation Location: [place] [address] Transcribed By: [facility] 07/24/23905 Dictated By: Gwyn Fischer Jr, DO 07/24/23901 Signed By: 07/24/23905 Normal [facility] Calcium [Mass/volume] in Ser um or PlasmaOrdered By: Jose Hernandez on 07-24-2023 Calcium [Mass/Vol] 9.2 mg/dL 8.6-10.3 [facility] Carbon dioxide, total [Moles /volume] in Serum or PlasmaOrdered By: Jose Hernandez on 07-24-2023 CO2 [Moles/Vol] 18.5 mmol/L 21.0-31.0 [facility] Chloride [Moles/volume] in S ayanna or PlasmaOrdered By: Jose Hernandez on 07-24-2023 Chloride [Moles/Vol] 113 mmol/L 98-107 [facility] Color Auto (U)Ordered By: Newton Hernandez on 07-24-2023 Color (U) Yellow Yellow [facility] Complete Blood Count Auto Di ffon 07-24-2023 Basophils (Bld) [#/Vol] 0.0 10*3/uL Normal 0.0-0.2 [facility] Comment on above: Result Comment: PERF ORMED BY: [place] [address] PATHOLOGIST DIRECTOR [employer] ARCHITECTURE RADHA CARR M.D. Performed By: #### L IPID, BMP, LDLD, MG, CBCNO #### [facility] [address] [place] [address] [place] Basophils/100 WBC (Bld) 0.5 % Normal . [facility] Comment on above: Performed By: #### L IPID, BMP, LDLD, MG, CBCNO #### [facility] [address] [place] [address] [place] Eosinophils (Bld) [#/Vol] 0.1 10*3/uL Normal 0.0-0.45 [facility] Comment on above: Performed By: #### L IPID, BMP, LDLD, MG, CBCNO #### [address] Eosinophils/100 WBC (Bld) 1.2 % Normal . [facility] Comment on above: Performed By: #### L IPID, BMP, LDLD, MG, CBCNO #### [address] Erythrocyte distribution width (RBC) [Ratio] 13.7 % Normal 12.0-14.8 [facility] Comment on above: Performed By: #### L IPID, BMP, LDLD, MG, CBCNO #### [address] Hematocrit (Bld) [Volume fraction] 40.4 % Normal 38.8-50.0 [facility] Comment on above: Performed By: #### L IPID, BMP, LDLD, MG, CBCNO #### [address] Hemoglobin (Bld) [Mass/Vol] 13.6 g/dL Normal 13.0-17.0 [facility] Comment on above: Performed By: #### L IPID, BMP, LDLD, MG, CBCNO #### [address] Lymphocytes (Bld) [#/Vol] 3.2 10*3/uL Normal 1.00-4.8 [facility] Comment on above: Performed By: #### L IPID, BMP, LDLD, MG, CBCNO #### [address] Lymphocytes/100 WBC (Bld) 38.5 % Normal . [facility] Comment on above: Performed By: #### L IPID, BMP, LDLD, MG, CBCNO #### [address] MCH (RBC) [Entitic mass] 30.8 pg Normal 27.5-35.2 [facility] Comment on above: Performed By: #### L IPID, BMP, LDLD, MG, CBCNO #### [address] MCV (RBC) [Entitic vol] 91.6 fL Normal 83.5-101 [facility] Comment on above: Performed By: #### L IPID, BMP, LDLD, MG, CBCNO #### [address] Mean Corpuscular HGB Conc 33.7 g/dL Normal 32.5-35.6 [facility] Comment on above: Performed By: #### L IPID, BMP, LDLD, MG, CBCNO #### [address] Monocytes (Bld) [#/Vol] 0.8 10*3/uL Normal 0.0-0.8 [facility] Comment on above: Performed By: #### L IPID, BMP, LDLD, MG, CBCNO #### [address] Monocytes/100 WBC (Bld) 18.16 % Normal 0.00-20.00 [facility] Comment on above: Performed By: #### L IPID, BMP, LDLD, MG, CBCNO #### [address] Monocytes/100 WBC (Bld) 9.7 % Normal . [facility] Comment on above: Performed By: #### L IPID, BMP, LDLD, MG, CBCNO #### [address] Neutrophils (Bld) [#/Vol] 4.2 10*3/uL Normal 1.8-7.7 [facility] Comment on above: Performed By: #### L IPID, BMP, LDLD, MG, CBCNO #### [address] Neutrophils/100 WBC (Bld) 50.1 % Normal . [facility] Comment on above: Performed By: #### L IPID, BMP, LDLD, MG, CBCNO #### [address] NRBC% 0.0 /100{WBC} Normal 0-0.5 [facility] Comment on above: Performed By: #### L IPID, BMP, LDLD, MG, CBCNO #### [address] Platelet mean volume (Bld) [Entitic vol] 8.5 fL Normal 6.6-10.1 [facility] Comment on above: Performed By: #### L IPID, BMP, LDLD, MG, CBCNO #### [address] Platelets (Bld) [#/Vol] 222 10*3/uL Normal 150-450 [facility] Comment on above: Performed By: #### L IPID, BMP, LDLD, MG, CBCNO #### [address] RBC (Bld) [#/Vol] 4.41 10*6/uL Normal 3.90-5.60 [facility] Comment on above: Performed By: #### L IPID, BMP, LDLD, MG, CBCNO #### [address] WBC (Bld) [#/Vol] 8.4 10*3/uL Normal 4.1-10.5 [facility] Comment on above: Performed By: #### L IPID, BMP, LDLD, MG, CBCNO #### [address] Comprehensive Metabolic Pane jerrod 07-24-2023 Albumin [Mass/Vol] 4.2 g/dL Normal 3.5-5.7 [facility] Comment on above: Performed By: #### L IPID, BMP, LDLD, MG, CBCNO #### [address] Albumin/Globulin [Mass ratio] 1.5 {ratio} Normal [facility] Comment on above: Performed By: #### L IPID, BMP, LDLD, MG, CBCNO #### [address] ALP [Catalytic activity/Vol] 91 U/L Normal 34-104 [facility] Comment on above: Performed By: #### L IPID, BMP, LDLD, MG, CBCNO #### [address] ALT [Catalytic activity/Vol] 15 U/L Normal 7-52 [facility] Comment on above: Performed By: #### L IPID, BMP, LDLD, MG, CBCNO #### [address] Anion gap [Moles/Vol] 11.5 mmol/L Normal 6.0-15.0 [facility] Comment on above: Performed By: #### L IPID, BMP, LDLD, MG, CBCNO #### [address] AST [Catalytic activity/Vol] 12 U/L Low 13-39 [facility] Comment on above: Performed By: #### L IPID, BMP, LDLD, MG, CBCNO #### [address] Bilirubin [Mass/Vol] 0.5 mg/dL Normal 0.3-1.0 [facility] Comment on above: Performed By: #### L IPID, BMP, LDLD, MG, CBCNO #### [address] Calcium [Mass/Vol] 9.2 mg/dL Normal 8.6-10.3 [facility] Comment on above: Performed By: #### L IPID, BMP, LDLD, MG, CBCNO #### [address] Chloride [Moles/Vol] 113 mmol/L High 98-107 [facility] Comment on above: Performed By: #### L IPID, BMP, LDLD, MG, CBCNO #### [address] [address] [place] CO2 [Moles/Vol] 18.5 mmol/L Low 21.0-31.0 [facility] Comment on above: Performed By: #### L IPID, BMP, LDLD, MG, CBCNO #### [address] Creatinine [Mass/Vol] 1.46 mg/dL High 0.70-1.30 [facility] Comment on above: Performed By: #### L IPID, BMP, LDLD, MG, CBCNO #### [address] Creatinine Clr Calc Pharmacy 62.55 Normal [facility] Comment on above: Performed By: #### L IPID, BMP, LDLD, MG, CBCNO #### [address] GFR/1.73 sq M.predicted MDRD (S/P/Bld) [Vol rate/Area] 53.370 mL/min/{1.73_m2} Normal [facility] Comment on above: Performed By: #### L IPID, BMP, LDLD, MG, CBCNO #### [address] Globulin (S) [Mass/Vol] 2.8 g/dL Normal [facility] Comment on above: Performed By: #### L IPID, BMP, LDLD, MG, CBCNO #### [address] Glucose [Mass/Vol] 182 mg/dL High 70-100 [facility] Comment on above: Result Comment: [place] Glucose Reference Range is dependent on time and content of last meal. Glucose of more than 200 mg/dL in a nonstressed, ambulatory subject supports the diagnosis of Diabetes Mellitus. ADA recommended reference range Performed By: #### L IPID, BMP, LDLD, MG, CBCNO #### [address] Potassium [Moles/Vol] 4.0 mmol/L Normal 3.5-5.1 [facility] Comment on above: Performed By: #### L IPID, BMP, LDLD, MG, CBCNO #### [place] [address] [place] Protein [Mass/Vol] 7.0 g/dL Normal 6.4-8.9 [facility] Comment on above: Performed By: #### L IPID, BMP, LDLD, MG, CBCNO #### [place] [address] [place] Sodium [Moles/Vol] 139 mmol/L Normal 136-145 [facility] Comment on above: Performed By: #### L IPID, BMP, LDLD, MG, CBCNO #### [place] [address] [place] Urea nitrogen [Mass/Vol] 24 mg/dL Normal 7-25 [facility] Comment on above: Performed By: #### L IPID, BMP, LDLD, MG, CBCNO #### [address] Creatine Kinaseon 07-24-2023 CK [Catalytic activity/Vol] 73 U/L Normal 30-223 [facility] Comment on above: Performed By: #### L IPID, BMP, LDLD, MG, CBCNO #### [address] Creatine kinase [Enzymatic a ctivity/volume] in Serum or PlasmaOrdered By: Jose Hernandez on 07-24-2023 CK [Catalytic activity/Vol] 73 U/L 30-223 [facility] Creatinine [Mass/volume] in Serum or PlasmaOrdered By: Jose Hernandez on 07-24-2023 Creatinine [Mass/Vol] 1.46 mg/dL 0.70-1.30 [facility] ECG 12 lead ECGon 07-24-2023 ECG 12 lead ECG [facility] [place] [address] [place] [address] Electrocardiograph Report Signed Patient: Rod Mathias MR#: [id number] 1426 : 1960 Acct:[id number] Age/Sex: 62 / M ADM Date: 07/24/23 Loc: ER Room: Type: [facility] ER Attending Dr: Ordering Provider: Jose Hernandez [...] sinus rhythm Confirmed by Jose HERNANDEZ DO ([id number]) on 07/24/2023 1:16:48 PM Referred By: Electronically Signed By:Jose HERNANDEZ DO Transcribed By: MUS Signed By Jose Hernandez DO 1 1316 Normal [facility] Eosinophils Auto (Bld) [#/Vo l]Ordered By: Jose Hernandez on 07-24-2023 Eosinophils (Bld) [#/Vol] 0.1 10*3/uL 0.0-0.45 [facility] Eosinophils/100 WBC Auto (Bl d)Ordered By: Jose Hernandez on 07-24-2023 Eosinophils/100 WBC (Bld) 1.2 % . [facility] Erythrocyte distribution wid th Auto (RBC) [Ratio]Ordered By: Jose Hernandez on 07-24-2023 Erythrocyte distribution width (RBC) [Ratio] 13.7 % 12.0-14.8 [facility] Ethanol [Mass/volume] in Ser um or PlasmaOrdered By: Jose Hernandez on 07-24-2023 Ethanol [Mass/Vol] mg/dL [facility] Ethanol [Mass/Vol] TNP [facility] Comment on above: Test not performed Ethyl Alcohol Profileon Ethanol [Mass/Vol] mg/dL Normal [facility] Comment on above: Performed By: #### L IPID, BMP, LDLD, MG, CBCNO #### [address] Percent Ethanol Not performed Normal [facility] Comment on above: Result Comment: PERF ORMED BY: [place] [address] PATHOLOGIST DIRECTOR [employer] ARCHITECTURE RADHA CARR M.D. Performed By: #### L IPID, BMP, LDLD, MG, CBCNO #### [address] Globulin Calc (S) [Mass/Vol] Ordered By: Jose Hernandez on 07-24-2023 Globulin (S) [Mass/Vol] 2.8 g/dL [facility] Glucose Glucometer (BldC) [M ass/Vol]Ordered By: Jose Hernandez on 07-24-2023 Glucose [Mass/Vol] 220 mg/dL [facility] Comment on above: Random Glucose Refer ence Range is dependent on time and content of last meal. Glucose of more than 200 mg/dL in a nonstressed, ambulatory subject supports the diagnosis of Diabetes Mellitus. Glucose Poct Glucometerson 1 Commemt1 Glu2: Cleaned Meter Normal [facility] Comment on above: Result Comment: PERF ORMED BY: [place] [address] PATHOLOGIST DIRECTOR [employer]TER[employer] DATA ARCHITECTURE RADHA CARR M.D. Performed By: #### G LULS #### Point of Care testing , Glucose [Mass/Vol] 220 mg/dL Normal [facility] Comment on above: Result Comment: [place] om Glucose Reference Range is dependent on time and content of last meal. Glucose of more than 200 mg/dL in a nonstressed, ambulatory subject supports the diagnosis of Diabetes Mellitus. Performed By: #### G LULS #### Point of Care testing , Glucose [Mass/volume] in Ser um or PlasmaOrdered By: Jose Hernandez on 07-24-2023 Glucose [Mass/Vol] 182 mg/dL 70-100 [facility] Comment on above: ADA recommended refe rence rangeRandom Glucose Reference Range is dependent on time and content of last meal. Glucose of more than 200 mg/dL in a nonstressed, ambulatory subject supports the diagnosis of Diabetes Mellitus. Hematocrit Auto (Bld) [Volum e fraction]Ordered By: Jose Hernandez on 07-24-2023 Hematocrit (Bld) [Volume fraction] 40.4 % 38.8-50.0 [facility] Hemoglobin [Mass/volume] in BloodOrdered By: Jose Hernandez on 07-24-2023 Hemoglobin (Bld) [Mass/Vol] 13.6 g/dL 13.0-17.0 [facility] INR in Platelet poor plasma by Coagulation assayOrdered By: Jose Hernandez on 07-24-2023 INR Coag (PPP) [Relative time] 0.9 {INR} [facility] Comment on above: INR Therapeutic Rang e [...] 07-24-2023 Ketones (U) [Mass/Vol] Negative Negative Fi [facility] Laboratory - Chemistry and C hemistry - challengeOrdered By: Jose Hernandez on 07-24-2023 CO2 [Moles/Vol] 23.4 mmol/L 24.0-29.0 [facility] HCO3 (Bld) [Moles/Vol] 21.9 mmol/L 23.0-29.0 [facility] Leukocytes [#/volume] correc desean for nucleated erythrocytes in Blood by Automated counOrdered By: Jose Hernandez on 07-24-2023 WBC corrected for nucl RBC Auto (Bld) [#/Vol] 8.4 10*3/uL 4.1-10.5 [facility] Lymphocytes Auto (Bld) [#/Vo l]Ordered By: Jose Hernandez on 07-24-2023 Lymphocytes (Bld) [#/Vol] 3.2 10*3/uL 1.00-4.8 [facility] Lymphocytes/100 WBC Auto (Bl d)Ordered By: Jose Hernandez on 07-24-2023 Lymphocytes/100 WBC (Bld) 38.5 % . [facility] MCH Auto (RBC) [Entitic mass ]Ordered By: Jose Hernandez on 07-24-2023 MCH (RBC) [Entitic mass] 30.8 pg 27.5-35.2 [facility] MCHC Auto (RBC) [Mass/Vol]Or dered By: Jose Hernandez on 07-24-2023 MCHC (RBC) [Mass/Vol] 33.7 g/dL 32.5-35.6 [facility] MCV Auto (RBC) [Entitic vol] Ordered By: Jose Hernandez on 07-24-2023 MCV (RBC) [Entitic vol] 91.6 fL 83.5-101 [facility] Monocyte distribution width [Entitic volume] in Blood by AutomatedOrdered By: Jose Hernandez on 07-24-2023 Monocyte distribution width Auto (Bld) [Entitic vol] 18.16 % 0.00-20.00 [facility] Monocytes Auto (Bld) [#/Vol] Ordered By: Jose Hernandez on 07-24-2023 Monocytes (Bld) [#/Vol] 0.8 10*3/uL 0.0-0.8 [facility] Monocytes/100 WBC Auto (Bld) Ordered By: Jose Hernandez on 07-24-2023 Monocytes/100 WBC (Bld) 9.7 % . [facility] Neutrophils Auto (Bld) [#/Vo l]Ordered By: Jose Hernandez on 07-24-2023 Neutrophils (Bld) [#/Vol] 4.2 10*3/uL 1.8-7.7 [facility] Neutrophils/100 WBC Auto (Bl d)Ordered By: Jose Hernandez on 07-24-2023 Neutrophils/100 WBC (Bld) 50.1 % . [facility] Nitrite Test strip Ql (U)Ord ered By: Jose Hernandez on 07-24-2023 Nitrite Ql (U) Negative Negative [facility] No Panel InformationOrdered By: Jose Hernandez on 07-24-2023 Blood Gas Critical Value See comment [facility] Comment on above: Critical Value mcdowell d on: 07/24/2023 at 10:43 Blood Gas Sample Site Venous [facility] FiO2 na % [facility] Venous Blood Base Excess -5.4 mmol/L -3.0-3.0 [facility] Venous Blood Oxygen Saturation 35.3 % 73.0-76.0 [facility] Venous Blood Partial Pressure CO2 48.8 mm[Hg] 38.0-50.0 [facility] Venous Blood Partial Pressure O2 22.5 mm[Hg] 35.0-45.0 [facility] Venous Blood pH 7.27 7.32-7.43 [facility] Estimated GFR (CKD-EPI) 53.370 mL/Min [facility] Creatinine Clearance (Chem 62.55 [facility] Bedside Glucose Comment Glu2: cleaned meter [facility] Nucleated erythrocytes [Pres ence] in Blood by Automated countOrdered By: Jose Hernandez on 07-24-2023 Nucleated RBC Auto Ql (Bld) 0.0 /100{WBC} 0-0.5 [facility] Partial Thromboplastin Timeo n 07-24-2023 aPTT Coag (Bld) [Time] 28.7 s Normal 25.1-36.5 [facility] Comment on above: Result Comment: A he matocrit value greater than 55% may lead to inaccurate results in coagulation testing. Patients having hematocrit values >55% require a special collection tube for coagulation studies. Please contact the laboratory at [phone] for redraw instructions. PERFORMED BY: [place] [address] PATHOLOGIST DIRECTOR [employer] ARCHITECTURE RADHA CARR M.D. Performed By: #### L IPID, BMP, LDLD, MG, CBCNO #### [address] Platelet mean volume Auto (B ld) [Entitic vol]Ordered By: Jose Hernandez on 07-24-2023 Platelet mean volume (Bld) [Entitic vol] 8.5 fL 6.6-10.1 [facility] Platelets Auto (Bld) [#/Vol] Ordered By: Jose Hernandez on 07-24-2023 Platelets (Bld) [#/Vol] 222 10*3/uL 150-450 [facility] Potassium [Moles/volume] in Serum or PlasmaOrdered By: Jose Hernandez on 07-24-2023 Potassium [Moles/Vol] 4.0 mmol/L 3.5-5.1 [facility] Prolactinon 07-24-2023 Prolactin 5.59 ng/mL Normal 2.64-13.13 [facility] Comment on above: Result Comment: PERF ORMED BY: [place] [address] PATHOLOGIST DIRECTOR [employer]TER[employer] DATA ARCHITECTURE RADHA CARR M.D. Performed By: #### L IPID, BMP, LDLD, MG, CBCNO #### [facility] [address] Prolactin [Mass/volume] in S ayanna or PlasmaOrdered By: Jose Hernandez on 07-24-2023 Prolactin [Mass/Vol] 5.59 ng/mL 2.64-13.13 [facility] Protein Auto test strip (U) [Mass/Vol]Ordered By: Jose Hernandez on 07-24-2023 Protein (U) [Mass/Vol] Negative Negative Fi [facility] Protein [Mass/volume] in Ser um or PlasmaOrdered By: Jose Hernandez on 07-24-2023 Protein [Mass/Vol] 7.0 g/dL 6.4-8.9 [facility] Prothrombin Time INRon 07-24 INR Coag (PPP) [Relative time] 0.9 {INR} Normal [facility] Comment on above: Result Comment: [...] L IPID, BMP, LDLD, MG, CBCNO #### [facility] [address] [place] [id number] [place] PT Coag (PPP) [Time] 11.3 s Normal 9.0-12.9 [facility] Comment on above: Result Comment: A he matocrit value greater than 55% may lead to inaccurate results in coagulation testing. Patients having hematocrit values >55% require a special collection tube for coagulation studies. Please contact the laboratory at [phone] for redraw instructions. Performed By: #### L IPID, BMP, LDLD, MG, CBCNO #### [place] [id number] [facility] Prothrombin time (PT)Ordered By: Jose Hernandez on 07-24-2023 PT Coag (PPP) [Time] 11.3 s 9.0-12.9 [facility] Comment on above: A hematocrit value g reater than 55% may lead to inaccurate results in coagulation testing. Patients having hematocrit values >55% require a special collection tube for coagulation studies. Please contact the laboratory at [phone] for redraw instructions. RBC Auto (Bld) [#/Vol]Ordere d By: Jose Hernandez on 07-24-2023 RBC (Bld) [#/Vol] 4.41 10*6/uL 3.90-5.60 [facility] Serum or plasma albumin/glob ulin mass ratioOrdered By: Jose Hernandez on 07-24-2023 Albumin/Globulin [Mass ratio] 1.5 {ratio} [facility] Serum or plasma anion gap de terminationOrdered By: Jose Hernandez on 07-24-2023 Anion gap [Moles/Vol] 11.5 mmol/L 6.0-15.0 [facility] Sodium [Moles/volume] in Ser um or PlasmaOrdered By: Jose Hernandez on 07-24-2023 Sodium [Moles/Vol] 139 mmol/L 136-145 [facility] Specific gravity Auto test s trip (U) [Rel density]Ordered By: Jose Hernandez on 07-24-2023 Specific gravity (U) [Rel density] 1.025 1.001-1.030 [facility] Thyroid Stimulating Hormoneo n 07-24-2023 TSH Qn 1.75 m[IU]/L Normal 0.45-5.33 [facility] Comment on above: Result Comment: PERF ORMED BY: [facility] [address] [place] [address] PATHOLOGIST DIRECTOR [employer]TER[employer] ARCHITECTURE RADHA CARR M.D. Performed By: #### L IPID, BMP, LDLD, MG, CBCNO #### [address] Thyrotropin [Units/volume] i n Serum or PlasmaOrdered By: Jose Hernandez on 07-24-2023 TSH Qn 1.75 m[IU]/L 0.45-5.33 [facility] Troponin I High Sensitivityo n 07-24-2023 Troponin I High Sensitivity 4.0 pg/mL Normal 0.0-20.0 [facility] Comment on above: Result Comment: PERF ORMED BY: [place] [address] PATHOLOGIST DIRECTOR ENTER[employer]ISE DATA ARCHITECTURE RADHA CARR M.D. Performed By: #### L IPID, BMP, LDLD, MG, CBCNO #### [place] [address] [place] Troponin I.cardiac [Mass/vol ume] in Serum or Plasma by Detection limit <= 0.01 ng/Ordered By: Jose Hernandez on 07-24-2023 Troponin I.cardiac DL <= 0.01 ng/mL [Mass/Vol] 4.0 pg/mL 0.0-20.0 [facility] Urea nitrogen [Mass/volume] in Serum or PlasmaOrdered By: Jose Hernandez on 07-24-2023 Urea nitrogen [Mass/Vol] 24 mg/dL 7 [facility] Urinalysison 07-24-2023 Appearance (U) Clear Normal Clear [facility] Comment on above: Order Comment: Name Collection Type:: Clean-Voided Midstream Performed By: #### U A #### [address] Bilirubin,Urine Negative Normal Negative [facility] Comment on above: Order Comment: Name Collection Type:: Clean-Voided Midstream Performed By: #### U A #### [address] Color (U) Yellow Normal Yellow [facility] Comment on above: Order Comment: Name Collection Type:: Clean-Voided Midstream Performed By: #### U A #### [address] Glucose Ql (U) >=1000 High Normal [facility] Comment on above: Order Comment: Name Collection Type:: Clean-Voided Midstream Performed By: #### U A #### [address] Ketones Ql (U) Negative Normal Negative [facility] Comment on above: Order Comment: Name Collection Type:: Clean-Voided Midstream Performed By: #### U A #### [address] Leukocyte esterase Test strip Ql (U) Negative Normal Negative [facility] Comment on above: Order Comment: Name Collection Type:: Clean-Voided Midstream Performed By: #### U A #### [place] [address] [place] Nitrite,Urine Negative Normal Negative [facility] Comment on above: Order Comment: Name Collection Type:: Clean-Voided Midstream Performed By: #### U A #### [place] [address] [place] Occult Blood,Urine Negative Normal Negative [facility] Comment on above: Order Comment: Name Collection Type:: Clean-Voided Midstream Result Comment: PERF ORMED BY: [place] [address] PATHOLOGIST DIRECTOR ENTER[employer] DATA ARCHITECTURE RADHA CARR M.D. Performed By: #### U A #### [place] [address] [place] pH (U) 5.5 [pH] Normal 5.0-9.0 [facility] Comment on above: Order Comment: Name Collection Type:: Clean-Voided Midstream Performed By: #### U A #### [place] [address] [place] Protein,Urine Negative Normal Negative [facility] Comment on above: Order Comment: Name Collection Type:: Clean-Voided Midstream Performed By: #### U A #### [place] [address] [place] Specificy [place],Urine 1.025 Normal 1.001-1.030 [facility] Comment on above: Order Comment: Name Collection Type:: Clean-Voided Midstream Performed By: #### U A #### [address] Urobilinogen,Urine Normal Normal Normal [facility] Comment on above: Order Comment: Name Collection Type:: Clean-Voided Midstream Performed By: #### U A #### [address] Urine clarity by refractomet ry automatedOrdered By: Jose Hernandez on 07-24-2023 Clarity Refractometry automated (U) Clear Clear [facility] Urine glucose measurement by automated test strip (mass/volume)Ordered By: Jose Hernandez on 07-24-2023 Glucose Auto test strip (U) [Mass/Vol] >=1000 mg/dL Normal [facility] Urine hemoglobin detection b y automated test stripOrdered By: Jose Hernandez on 07-24-2023 Hemoglobin Auto test strip Ql (U) Negative Negative [facility] Urine leukocyte esterase det ection by automated test stripOrdered By: Jose Hernandez on 07-24-2023 Leukocyte esterase Auto test strip Ql (U) Negative Negative [facility] Urobilinogen Auto test strip (U) [Mass/Vol]Ordered By: Jose Hernandez on 07-24-2023 Urobilinogen (U) [Mass/Vol] Normal mg/dL Normal [facility] Venous Blood Gason CO2 [Moles/Vol] 23.4 mmol/L Low 24.0-29.0 [facility] Comment on above: Performed By: #### U A #### [address] HCO3 (Bld) [Moles/Vol] 21.9 mmol/L Low 23.0-29.0 [facility] Comment on above: Performed By: #### U A #### [address] Respiratory Critical Normal [facility] Comment on above: Result Comment: Crit ical Value called on: 07/24/2023 at 10:43 PERFORMED BY: [place] [address] PATHOLOGIST DIRECTOR ENTER[employer] DATA ARCHITECTURE RADHA CARR M.D. Performed By: #### U A #### [address] VBG Base Excess -5.4 mmol/L Low -3.0-3.0 [facility] Comment on above: Performed By: #### U A #### [address] VBG Draw Site Venous Normal [facility] Comment on above: Performed By: #### U A #### [address] VBG Frac Inspired O2 Normal [facility] Comment on above: Performed By: #### U A #### [address] VBG Oxygen Saturation 35.3 % Off scale low 73.0-76.0 [facility] Comment on above: Performed By: #### U A #### [address] VBG PCO2 48.8 mm[Hg] Normal 38.0-50.0 [facility] Comment on above: Performed By: #### U A #### [address] VBG PH Venous PH 7.27 Low 7.32-7.43 [facility] Comment on above: Performed By: #### U A #### [address] VBG PO2 22.5 mm[Hg] Low 35.0-45.0 [facility] Comment on above: Performed By: #### U A #### [address] WBC Auto (Bld) [#/Vol]Ordere d By: Jose Hernandez on 07-24-2023 WBC (Bld) [#/Vol] 8.4 10*3/uL 4.1-10.5 [facility] XR chest 2V*on 07-24-2023 XR chest 2V* [facility] [place] [address] [place], [place] [id number] XRay Report Signed Patient: Rod Mathias MR#: [id number] 1426 : 1960 Acct:[id number] Age/Sex: 62 / M ADM Date: 07/24/23 [...] Fischer Jr., D.O.07/24/2023 9:07 AM Dictation Location: [place] [address] Transcribed By: [facility] 07/24/23906 Dictated By: Gwyn Fischer Jr, DO 07/24/23906 Signed By: 07/24/23 09 Normal [facility] pH Auto test strip (U)Ordere d By: Jose Hernandez on 07-24-2023 pH (U) 5.5 [pH] 5.0-9.0 [facility] Basic Metabolic Panelon - Anion gap [Moles/Vol] 11.8 mmol/L Normal 6.0-15.0 [facility] Comment on above: Performed By: #### L IPID, BMP, LDLD, MG, CBCNO #### [facility] [address] [place] [id number] [place] Calcium [Mass/Vol] 8.8 mg/dL Normal 8.6-10.3 [facility] Comment on above: Performed By: #### L IPID, BMP, LDLD, MG, CBCNO #### [facility] [address] [place] [id number] [place] Chloride [Moles/Vol] 111 mmol/L High 98-107 [facility] Comment on above: Performed By: #### L IPID, BMP, LDLD, MG, CBCNO #### [address] CO2 [Moles/Vol] 21.3 mmol/L Normal 21.0-31.0 [facility] Comment on above: Performed By: #### L IPID, BMP, LDLD, MG, CBCNO #### [address] Creatinine [Mass/Vol] 1.61 mg/dL High 0.70-1.30 [facility] Comment on above: Performed By: #### L IPID, BMP, LDLD, MG, CBCNO #### [address] Creatinine Clr Calc Pharmacy 57.55 Normal [facility] Comment on above: Result Comment: PERF ORMED BY: [place] [address] PATHOLOGIST DIRECTOR ENTERPRISE DATA ARCHITECTURE RADHA CARR M.D. Performed By: #### L IPID, BMP, LDLD, MG, CBCNO #### [address] GFR/1.73 sq M.predicted MDRD (S/P/Bld) [Vol rate/Area] 47.459 mL/min/{1.73_m2} Normal [facility] Comment on above: Performed By: #### L IPID, BMP, LDLD, MG, CBCNO #### [address] Glucose [Mass/Vol] 146 mg/dL High 70-100 [facility] Comment on above: Result Comment: [place] Glucose Reference Range is dependent on time and content of last meal. Glucose of more than 200 mg/dL in a nonstressed, ambulatory subject supports the diagnosis of Diabetes Mellitus. ADA recommended reference range Performed By: #### L IPID, BMP, LDLD, MG, CBCNO #### [address] Potassium [Moles/Vol] 4.1 mmol/L Normal 3.5-5.1 [facility] Comment on above: Performed By: #### L IPID, BMP, LDLD, MG, CBCNO #### [facility] [address] Sodium [Moles/Vol] 140 mmol/L Normal 136-145 [facility] Comment on above: Performed By: #### L IPID, BMP, LDLD, MG, CBCNO #### [facility] [address] Urea nitrogen [Mass/Vol] 18 mg/dL Normal 7-25 [facility] Comment on above: Performed By: #### L IPID, BMP, LDLD, MG, CBCNO #### [facility] [address] Calcium [Mass/volume] in Ser um or PlasmaOrdered By: Shaila Bowen on 07-13-2023 Calcium [Mass/Vol] 8.8 mg/dL 8.6-10.3 [facility] Carbon dioxide, total [Moles /volume] in Serum or PlasmaOrdered By: Shaila Bowen on 07-13-2023 CO2 [Moles/Vol] 21.3 mmol/L 21.0-31.0 [facility] Chloride [Moles/volume] in S ayanna or PlasmaOrdered By: Shaila Bowen on 07-13-2023 Chloride [Moles/Vol] 111 mmol/L 98-107 [facility] Creatinine [Mass/volume] in Serum or PlasmaOrdered By: Shaila Bowen on 07-13-2023 Creatinine [Mass/Vol] 1.61 mg/dL 0.70-1.30 [facility] Erythrocyte distribution wid th Auto (RBC) [Ratio]Ordered By: Shaila Bowen on 07-13-2023 Erythrocyte distribution width (RBC) [Ratio] 14.2 % 12.0-14.8 [facility] Glucose Glucometer (BldC) [M ass/Vol]Ordered By: Shaila Bowen on 07-13-2023 Glucose [Mass/Vol] 200 mg/dL [facility] Comment on above: Random Glucose Refer ence Range is dependent on time and content of last meal. Glucose of more than 200 mg/dL in a nonstressed, ambulatory subject supports the diagnosis of Diabetes Mellitus. Glucose Poct Glucometerson 0 07-13-2023 Commemt1 Glu2: Cleaned Meter Normal [facility] Comment on above: Result Comment: PERF ORMED BY: [place] [address] PATHOLOGIST DIRECTOR ENTERPRISE DATA ARCHITECTURE RADHA CARR M.D. Performed By: #### U A #### [place] [address] [place] Glucose [Mass/Vol] 200 mg/dL Normal [facility] Comment on above: Result Comment: [place] om Glucose Reference Range is dependent on time and content of last meal. Glucose of more than 200 mg/dL in a nonstressed, ambulatory subject supports the diagnosis of Diabetes Mellitus. Performed By: #### U A #### [place] [id number] [facility] Commemt1 Glu2: Cleaned Meter Normal [facility] Comment on above: Result Comment: PERF ORMED BY: [place] [address] PATHOLOGIST DIRECTOR ENTERPRISE DATA ARCHITECTURE RADHA CARR M.D. Performed By: #### L IPID, BMP, LDLD, MG, CBCNO #### [place] [id number] [place] Glucose [Mass/Vol] 200 mg/dL Normal [facility] Comment on above: Result Comment: [place] om Glucose Reference Range is dependent on time and content of last meal. Glucose of more than 200 mg/dL in a nonstressed, ambulatory subject supports the diagnosis of Diabetes Mellitus. Performed By: #### L IPID, BMP, LDLD, MG, CBCNO #### [facility] [address] [place] [id number] [place] Glucose [Mass/volume] in Ser um or PlasmaOrdered By: Shaila Bowen on 07-13-2023 Glucose [Mass/Vol] 146 mg/dL 70-100 [facility] Comment on above: ADA recommended refe rence rangeRandom Glucose Reference Range is dependent on time and content of last meal. Glucose of more than 200 mg/dL in a nonstressed, ambulatory subject supports the diagnosis of Diabetes Mellitus. Hematocrit Auto (Bld) [Volum e fraction]Ordered By: Shaila Bowen on 07-13-2023 Hematocrit (Bld) [Volume fraction] 39.9 % 38.8-50.0 [facility] Hemoglobin [Mass/volume] in BloodOrdered By: Shaila Bowen on 07-13-2023 Hemoglobin (Bld) [Mass/Vol] 13.5 g/dL 13.0-17.0 [facility] Hemogram CBC Without Diffon 07-13-2023 Erythrocyte distribution width (RBC) [Ratio] 14.2 % Normal 12.0-14.8 [facility] Comment on above: Performed By: #### L IPID, BMP, LDLD, MG, CBCNO #### [address] Hematocrit (Bld) [Volume fraction] 39.9 % Normal 38.8-50.0 [facility] Comment on above: Performed By: #### L IPID, BMP, LDLD, MG, CBCNO #### [address] Hemoglobin (Bld) [Mass/Vol] 13.5 g/dL Normal 13.0-17.0 [facility] Comment on above: Performed By: #### L IPID, BMP, LDLD, MG, CBCNO #### [address] MCH (RBC) [Entitic mass] 31.4 pg Normal 27.5-35.2 [facility] Comment on above: Performed By: #### L IPID, BMP, LDLD, MG, CBCNO #### [address] MCV (RBC) [Entitic vol] 92.7 fL Normal 83.5-101 [facility] Comment on above: Performed By: #### L IPID, BMP, LDLD, MG, CBCNO #### [address] Mean Corpuscular HGB Conc 33.9 g/dL Normal 32.5-35.6 [facility] Comment on above: Performed By: #### L IPID, BMP, LDLD, MG, CBCNO #### [address] Platelet mean volume (Bld) [Entitic vol] 7.8 fL Normal 6.6-10.1 [facility] Comment on above: Result Comment: PERF ORMED BY: [place] [address] PATHOLOGIST DIRECTOR ENTERPRISE DATA ARCHITECTURE RADHA CARR M.D. Performed By: #### L IPID, BMP, LDLD, MG, CBCNO #### [address] Platelets (Bld) [#/Vol] 194 10*3/uL Normal 150-450 [facility] Comment on above: Performed By: #### L IPID, BMP, LDLD, MG, CBCNO #### [address] RBC (Bld) [#/Vol] 4.31 10*6/uL Normal 3.90-5.60 [facility] Comment on above: Performed By: #### L IPID, BMP, LDLD, MG, CBCNO #### [address] WBC (Bld) [#/Vol] 6.6 10*3/uL Normal 4.1-10.5 [facility] Comment on above: Performed By: #### L IPID, BMP, LDLD, MG, CBCNO #### [address] Leukocytes [#/volume] correc desean for nucleated erythrocytes in Blood by Automated counOrdered By: Shaila Bowen on 07-13-2023 WBC corrected for nucl RBC Auto (Bld) [#/Vol] 6.6 10*3/uL 4.1-10.5 [facility] MCH Auto (RBC) [Entitic mass ]Ordered By: Shaila Bowen on 07-13-2023 MCH (RBC) [Entitic mass] 31.4 pg 27.5-35.2 [facility] MCHC Auto (RBC) [Mass/Vol]Or dered By: Shaila Bowen on 07-13-2023 MCHC (RBC) [Mass/Vol] 33.9 g/dL 32.5-35.6 [facility] MCV Auto (RBC) [Entitic vol] Ordered By: Shaila Bowen on 07-13-2023 MCV (RBC) [Entitic vol] 92.7 fL 83.5-101 [facility] No Panel InformationOrdered By: Shaila Bowen on 07-13-2023 Bedside Glucose Comment Glu2: cleaned meter [facility] Estimated GFR (CKD-EPI) 47.459 mL/Min [facility] Creatinine Clearance (Chem 57.55 [facility] Platelet mean volume Auto (B ld) [Entitic vol]Ordered By: Shaila Bowen on 07-13-2023 Platelet mean volume (Bld) [Entitic vol] 7.8 fL 6.6-10.1 [facility] Platelets Auto (Bld) [#/Vol] Ordered By: Shaila Bowen on 07-13-2023 Platelets (Bld) [#/Vol] 194 10*3/uL 150-450 [facility] Potassium [Moles/volume] in Serum or PlasmaOrdered By: Shaila Bowen on 07-13-2023 Potassium [Moles/Vol] 4.1 mmol/L 3.5-5.1 [facility] RBC Auto (Bld) [#/Vol]Ordere d By: Shaila Bowen on 07-13-2023 RBC (Bld) [#/Vol] 4.31 10*6/uL 3.90-5.60 [facility] Serum or plasma anion gap de terminationOrdered By: Shaila Bowen on 07-13-2023 Anion gap [Moles/Vol] 11.8 mmol/L 6.0-15.0 [facility] Sodium [Moles/volume] in Ser um or PlasmaOrdered By: Ashleymelchor Sandeepsovicente on 07-13-2023 Sodium [Moles/Vol] 140 mmol/L 136-145 [facility] Urea nitrogen [Mass/volume] in Serum or PlasmaOrdered By: Ashleywakenroy Wassovicente on 07-13-2023 Urea nitrogen [Mass/Vol] 18 mg/dL 7-25 [facility] Ammoniaon 07-12-2023 Ammonia (P) [Moles/Vol] 27 umol/L Normal [facility] Comment on above: Result Comment: PERF ORMED BY: [place] [address] PATHOLOGIST DIRECTOR ENTERPRISE DATA ARCHITECTURE RADHA CARR M.D. Performed By: #### L IPID, BMP, LDLD, MG, CBCNO #### [facility] [address] [place] [address] [place] Ammonia [Moles/volume] in Pl asmaOrdered By: Shaila Melanievicente on 07-12-2023 Ammonia (P) [Moles/Vol] 27 umol/L [facility] Basic Metabolic Panelon 06-22 Anion gap [Moles/Vol] 10.5 mmol/L Normal 6.0-15.0 [facility] Comment on above: Performed By: #### L IPID, BMP, LDLD, MG, CBCNO #### [facility] [address] [place] [address] [place] Calcium [Mass/Vol] 8.7 mg/dL Normal 8.6-10.3 [facility] Comment on above: Performed By: #### L IPID, BMP, LDLD, MG, CBCNO #### [facility] [address] [place] [address] [place] Chloride [Moles/Vol] 111 mmol/L High 98-107 [facility] Comment on above: Performed By: #### L IPID, BMP, LDLD, MG, CBCNO #### [place] [address] [place] CO2 [Moles/Vol] 22.5 mmol/L Normal 21.0-31.0 [facility] Comment on above: Performed By: #### L IPID, BMP, LDLD, MG, CBCNO #### [address] Creatinine [Mass/Vol] 1.58 mg/dL High 0.70-1.30 [facility] Comment on above: Performed By: #### L IPID, BMP, LDLD, MG, CBCNO #### [place] [address] [place] Creatinine Clr Calc Pharmacy 58.64 Normal [facility] Comment on above: Performed By: #### L IPID, BMP, LDLD, MG, CBCNO #### [place] [address] [place] GFR/1.73 sq M.predicted MDRD (S/P/Bld) [Vol rate/Area] 48.543 mL/min/{1.73_m2} Normal [facility] Comment on above: Performed By: #### L IPID, BMP, LDLD, MG, CBCNO #### [address] Glucose [Mass/Vol] 203 mg/dL High 70-100 [facility] Comment on above: Result Comment: [facility] Glucose Reference Range is dependent on time and content of last meal. Glucose of more than 200 mg/dL in a nonstressed, ambulatory subject supports the diagnosis of Diabetes Mellitus. ADA recommended reference range Performed By: #### L IPID, BMP, LDLD, MG, CBCNO #### [address] Potassium [Moles/Vol] 4.0 mmol/L Normal 3.5-5.1 [facility] Comment on above: Performed By: #### L IPID, BMP, LDLD, MG, CBCNO #### [place] [address] [place] Sodium [Moles/Vol] 140 mmol/L Normal 136-145 [facility] Comment on above: Performed By: #### L IPID, BMP, LDLD, MG, CBCNO #### [facility] [address] [place] [address] [place] Urea nitrogen [Mass/Vol] 17 mg/dL Normal 7-25 [facility] Comment on above: Performed By: #### L IPID, BMP, LDLD, MG, CBCNO #### [facility] [address] [place] [address] [place] Cholesterol [Mass/volume] in Serum or PlasmaOrdered By: Shaila Bowen on 07-12-2023 Cholesterol [Mass/Vol] 197 mg/dL 140-200 [facility] Comment on above: Chol less than 200 m g/dl low riskChol 201-239 mg/dl borderline riskChol 240 mg/dl and greater high risk Cholesterol in LDL Calc [Mas s/Vol]Ordered By: Shaila Bowen on 07-12-2023 Cholesterol in LDL [Mass/Vol] TNP [facility] Comment on above: Test not performed Cholesterol in LDL [Mass/vol ume] in Serum or PlasmaOrdered By: Shaila Bowen on 07-12-2023 Cholesterol in LDL [Mass/Vol] 117 mg/dL 0-100 [facility] Comment on above: LDL ATP III CLASSIFI CATIONLDL less than 100 mg/dL OptimalLDL 100-129 mg/dL Near or above optimalLDL 130-159 mg/dL Borderline highLDL 160-189 mg/dL HighLDL greater than 189 mg/dL Very high Cholesterol in VLDL Calc [Ma ss/Vol]Ordered By: Shaila Bowen on 07-12-2023 Cholesterol in VLDL [Mass/Vol] 87 mg/dL [facility] ECH echo transthoracicon ECH echo transthoracic [facility] [place] [address] [place] [address] Echocardiogram Signed Patient: Rod Mathias MR#: [id number] 1426 : 1960 Acct:[id number] Age/Sex: 62 / M ADM Date: 07/11/23 Loc: Room: [address] [place] [address] Type: ADM INOo Attending Dr: Shaila Bowen MD Ordering Provider: Shaila Bowen MD Date of Service: 07/11/23 ECH/ECH echo transthoracic: with agitated saline Copies to: Nilo Roach MD, [facility] Shaila Bowen MD Weight: 235 lb Performed By: Wanda Oconnell DMITRIY BSA: 2.3 m2 BP: 105/60 mmHg HR: [...] V2 VTI: 25.3 cm ARCHIE(I,D): 2.7 cm2 ARCHEI(V,D): 2.6 cm2 __ LV V1 max PG: RAP systole: 3.2 mmHg 3.0 mmHg LV V1 mean P.0 mmHg LV V1 mean: 67.8 cm/sec LV V1 VTI: 18.1 cm Transcribed By: VERÓNICA Performed At: 07/12/23 0912 Signed By: Nilo Roach MD, [facility] 07/12/23 1406 Normal [facility] Glucose Poct Glucometerson 0 07-12-2023 Glucose [Mass/Vol] 160 mg/dL Normal [facility] Comment on above: Result Comment: [place] om Glucose Reference Range is dependent on time and content of last meal. Glucose of more than 200 mg/dL in a nonstressed, ambulatory subject supports the diagnosis of Diabetes Mellitus. PERFORMED BY: [place] [address] PATHOLOGIST DIRECTOR [employer]TERPRISE DATA ARCHITECTURE RADHA CARR M.D. Performed By: #### G LULS #### Point of Care testing , Commemt1 Glu2: Cleaned Meter Normal [facility] Comment on above: Result Comment: PERF ORMED BY: [place] [address] PATHOLOGIST DIRECTOR ENTERPRISE DATA ARCHITECTURE RADHA CARR M.D. Performed By: #### G LULS #### Point of Care testing , Glucose [Mass/Vol] 158 mg/dL Normal [facility] Comment on above: Result Comment: [place] Glucose Reference Range is dependent on time and content of last meal. Glucose of more than 200 mg/dL in a nonstressed, ambulatory subject supports the diagnosis of Diabetes Mellitus. Performed By: #### G LULS #### Point of Care testing , Commemt1 Glu2: Cleaned Meter Normal [facility] Comment on above: Result Comment: PERF ORMED BY: [place] [address] PATHOLOGIST DIRECTOR ENTERPRISE DATA ARCHITECTURE RADHA CARR M.D. Performed By: #### G LULS #### Point of Care testing , Performed By: #### L IPID, BMP, LDLD, MG, CBCNO #### [address] Glucose [Mass/Vol] 219 mg/dL Normal [facility] Comment on above: Result Comment: [place] om Glucose Reference Range is dependent on time and content of last meal. Glucose of more than 200 mg/dL in a nonstressed, ambulatory subject supports the diagnosis of Diabetes Mellitus. Performed By: #### G LULS #### Point of Care testing , Glucose [Mass/Vol] 207 mg/dL Normal [facility] Comment on above: Result Comment: [place] om Glucose Reference Range is dependent on time and content of last meal. Glucose of more than 200 mg/dL in a nonstressed, ambulatory subject supports the diagnosis of Diabetes Mellitus. Performed By: #### L IPID, BMP, LDLD, MG, CBCNO #### [address] Hemogram CBC Without Diffon 07-12-2023 Erythrocyte distribution width (RBC) [Ratio] 14.0 % Normal 12.0-14.8 [facility] Comment on above: Performed By: #### L IPID, BMP, LDLD, MG, CBCNO #### [address] Hematocrit (Bld) [Volume fraction] 40.7 % Normal 38.8-50.0 [facility] Comment on above: Performed By: #### L IPID, BMP, LDLD, MG, CBCNO #### [address] Hemoglobin (Bld) [Mass/Vol] 13.3 g/dL Normal 13.0-17.0 [facility] Comment on above: Performed By: #### L IPID, BMP, LDLD, MG, CBCNO #### [address] MCH (RBC) [Entitic mass] 30.6 pg Normal 27.5-35.2 [facility] Comment on above: Performed By: #### L IPID, BMP, LDLD, MG, CBCNO #### [address] [address] [place] MCV (RBC) [Entitic vol] 93.5 fL Normal 83.5-101 [facility] Comment on above: Performed By: #### L IPID, BMP, LDLD, MG, CBCNO #### [address] Mean Corpuscular HGB Conc 32.7 g/dL Normal 32.5-35.6 [facility] Comment on above: Performed By: #### L IPID, BMP, LDLD, MG, CBCNO #### [address] Platelet mean volume (Bld) [Entitic vol] 8.0 fL Normal 6.6-10.1 [facility] Comment on above: Result Comment: PERF ORMED BY: [place] [address] PATHOLOGIST DIRECTOR ENTERPRISE DATA ARCHITECTURE RADHA CARR M.D. Performed By: #### L IPID, BMP, LDLD, MG, CBCNO #### [address] Platelets (Bld) [#/Vol] 192 10*3/uL Normal 150-450 [facility] Comment on above: Performed By: #### L IPID, BMP, LDLD, MG, CBCNO #### [address] RBC (Bld) [#/Vol] 4.35 10*6/uL Normal 3.90-5.60 [facility] Comment on above: Performed By: #### L IPID, BMP, LDLD, MG, CBCNO #### [address] WBC (Bld) [#/Vol] 6.8 10*3/uL Normal 4.1-10.5 [facility] Comment on above: Performed By: #### L IPID, BMP, LDLD, MG, CBCNO #### [address] LDL Cholesterol Measuredon 0 07-12-2023 LDL Cholesterol Measured 117 mg/dL High 0-100 [facility] Comment on above: Result Comment: LDL ATP III CLASSIFICATION LDL less than 100 mg/dL Optimal LDL 100-129 mg/dL Near or above optimal LDL 130-159 mg/dL Borderline high LDL 160-189 mg/dL High LDL greater than 189 mg/dL Very high PERFORMED BY: [place] [address] PATHOLOGIST DIRECTOR ENTERPRISE DATA ARCHITECTURE RADHA CARR M.D. Performed By: #### L IPID, BMP, LDLD, MG, CBCNO #### [facility] [address] [place] [address] [facility] Lipid Panelon 07-12-2023 Cholesterol [Mass/Vol] 197 mg/dL Normal 140-200 [facility] Comment on above: Result Comment: Chol less than 200 mg/dl low risk Chol 201-239 mg/dl borderline risk Chol 240 mg/dl and greater high risk Performed By: #### L IPID, BMP, LDLD, MG, CBCNO #### [facility] [address] [place] [id number] [facility] Cholesterol in HDL [Mass/Vol] 41 mg/dL Normal 23-92 [facility] Comment on above: Result Comment: HDL CHOL ATP-III CLASSIFICATION Cardiovascular Risk HDL > or equal to 60 mg/dL LOW HDL < 40 mg/dL HIGH Performed By: #### L IPID, BMP, LDLD, MG, CBCNO #### [place] [id number] [facility] Cholesterol.total/Chol esterol in HDL [Mass ratio] 4.8 {ratio} Normal <5.0 [facility] Comment on above: Result Comment: PERF ORMED BY: [place] [address] PATHOLOGIST DIRECTOR ENTERPRISE DATA ARCHITECTURE RADHA CARR M.D. Performed By: #### L IPID, BMP, LDLD, MG, CBCNO #### [facility] [address] [place] [address] [place] LDL Cholesterol,Calculated Not performed Normal 0-100 [facility] Comment on above: Performed By: #### L IPID, BMP, LDLD, MG, CBCNO #### [facility] [address] Triglyceride w/Reflex 438 mg/dL High 0-149 [facility] Comment on above: Result Comment: [...] L IPID, BMP, LDLD, MG, CBCNO #### [facility] [address] VLDL CHOLESTEROL 87 mg/dL Normal [facility] Comment on above: Performed By: #### L IPID, BMP, LDLD, MG, CBCNO #### [facility] [address] MR head/brain wo/w conon MR head/brain wo/w con [facility] Main [place] [address] [place] [address] MRI Report Signed Patient: Rod Mathias MR#: [id number] 1426 : 1960 Acct:[id number] Age/Sex: 62 / M ADM Date: 07/11/23 Loc: Room: [address] [place] [address] Type: ADM INOo Attending Dr: Shaila Bowen [...] Angelica Bar M.D.07/12/2023 8:10 PM Dictation Location: [place] [address] Transcribed By: [facility] 07/12/232009 Dictated By: Angelica Bar MD 07/12/231958 Signed By: 07/12/232009 Normal [facility] Magnesiumon 07-12-2023 Magnesium [Mass/Vol] 2.1 mg/dL Normal 1.9-2.7 [facility] Comment on above: Performed By: #### L IPID, BMP, LDLD, MG, CBCNO #### [address] Magnesium [Mass/volume] in S ayanna or PlasmaOrdered By: Shaila Bowen on 07-12-2023 Magnesium [Mass/Vol] 2.1 mg/dL 1.9-2.7 [facility] Serum or plasma high density lipoprotein (HDL) cholesterol measurementOrdered By: Shaila Bowen on 07-12-2023 Cholesterol in HDL [Mass/Vol] 41 mg/dL 23- [facility] Comment on above: HDL CHOL ATP-III CLA SSIFICATION Cardiovascular RiskHDL > or equal to 60 mg/dL LOWHDL < 40 mg/dL HIGH Serum or plasma total choles terol/high density lipoprotein (HDL) cholesterol mass ratOrdered By: Shaila Bowen on 07-12-2023 Cholesterol.total/Chol esterol in HDL [Mass ratio] 4.8 {ratio} <5.0 [facility] Triglyceride [Mass/volume] i n Serum or PlasmaOrdered By: Shaila Bowen on 07-12-2023 Triglyceride [Mass/Vol] 438 mg/dL 0-149 [facility] Comment on above: If the triglyceride result is greater than 400, LDLC and related calculations cannot be calculated and resulted.TRIG ATP III CLASSIFICATIONTRIG less than 150 mg/dL NormalTRIG 150-199 mg/dL Borderline highTRIG 200-500 mg/dL High TRIG greater than 500 mg/dL Very highStandard traceable to the Center for Disease Conrtrol and Prevention (CDC) test method. US carotid doppler BIon 06-22 US carotid doppler BI [facility] Main [place] [address] [place] [address] Ultrasound Report Signed Patient: Rod Mathias MR#: [id number] 1426 : 1960 Acct:[id number] Age/Sex: 62 / M ADM Date: 07/11/23 Loc: Room: [address] [place] [address] Type: ADM INOo Attending Dr: Shaila Bowen [...] Arun Collier MD07/12/2023 10:17 AM Dictation Location: [facility]- Tech: Candy Chatterjee Transcribed By: [facility] 07/12/23 1017 Dictated By: Arun Collier MD 07/12/23 1017 Signed By: 07/12/23 1017 Normal [facility] Activated partial thrombopla stin time (aPTT) in platelet poor plasma by coagulation aOrdered By: César Arreaga on 07-11-2023 aPTT Coag (PPP) [Time] 28.5 s 25.1-36.5 [facility] Comment on above: A hematocrit value g reater than 55% may lead to inaccurate results in coagulation testing. Patients having hematocrit values >55% require a special collection tube for coagulation studies. Please contact the laboratory at [phone] for redraw instructions. Alanine aminotransferase [En zymatic activity/volume] in Serum or PlasmaOrdered By: César Arreaga on 07-11-2023 ALT [Catalytic activity/Vol] 18 U/L 7-52 [facility] Albumin [Mass/volume] in Ser um or Plasma by Bromocresol green (BCG) dye binding methoOrdered By: César Arreaga on 07-11-2023 Albumin BCG dye [Mass/Vol] 4.7 g/dL 3.5-5.7 [facility] Alkaline phosphatase [Enzyma tic activity/volume] in Serum or PlasmaOrdered By: César Arreaga on 07-11-2023 ALP [Catalytic activity/Vol] 94 U/L 34-104 [facility] Arterial Blood Gason 023 ABG Base Excess -4.6 mmol/L Low -3.0-3.0 [facility] Comment on above: Performed By: #### A BG #### Point of Care testing , ABG Frac Inspired O2 21 % Normal [facility] Comment on above: Performed By: #### A BG #### Point of Care testing , ABG Oxygen Content 8.7 mmol/L Normal 6.6-9.7 [facility] Comment on above: Performed By: #### A BG #### Point of Care testing , ABG Oxygen Saturation 95.7 % Normal 95.0-100.0 [facility] Comment on above: Performed By: #### A BG #### Point of Care testing , ABG PCO2 33.2 mm[Hg] Low 35.0-45.0 [facility] Comment on above: Performed By: #### A BG #### Point of Care testing , ABG PH 7.39 Normal 7.35-7.45 [facility] Comment on above: Performed By: #### A BG #### Point of Care testing , ABG PO2 77.1 mm[Hg] Low 80.0-100.0 [facility] Comment on above: Performed By: #### A BG #### Point of Care testing , CO2 [Moles/Vol] 20.4 mmol/L Low 23.0-27.0 [facility] Comment on above: Performed By: #### A BG #### Point of Care testing , HCO3 (Bld) [Moles/Vol] 19.4 mmol/L Low 23.0-29.0 [facility] Comment on above: Performed By: #### A BG #### Point of Care testing , Respiratory Critical Normal [facility] Comment on above: Result Comment: Crit ical Value called on: 07/11/2023 at 18:36 PERFORMED BY: [place] [id number] PATHOLOGIST DIRECTOR ENTERPRISE DATA ARCHITECTURE RADHA CARR M.D. Performed By: #### A BG #### Point of Care testing , VBG Draw Site Left Radial Normal [facility] Comment on above: Performed By: #### A BG #### Point of Care testing , Aspartate aminotransferase [ Enzymatic activity/volume] in Serum or PlasmaOrdered By: César Arreaga on 07-11-2023 AST [Catalytic activity/Vol] 15 U/L 13-39 [facility] B-Type Natriuretic Peptideon 07-11-2023 Natriuretic peptide B (Bld) [Mass/Vol] 10.0 pg/mL Normal 5-100 [facility] Comment on above: Result Comment: PERF ORMED BY: [place] [address] PATHOLOGIST DIRECTOR ENTERPRISE DATA ARCHITECTURE RADHA CARR M.D. Performed By: #### U A #### [address] Bacterial blood cultureOrder ed By: César Arreaga on 07-11-2023 Bacteria identified Cx Nom (Bld) NO GROWTH 5 DAYS [facility] Basic Metabolic Panelon 06-22 Anion gap [Moles/Vol] 15.1 mmol/L High 6.0-15.0 [facility] Comment on above: Performed By: #### L IPID, BMP, LDLD, MG, CBCNO #### [facility] [address] [place] [address] [place] Calcium [Mass/Vol] 9.7 mg/dL Normal 8.6-10.3 [facility] Comment on above: Performed By: #### L IPID, BMP, LDLD, MG, CBCNO #### [facility] [address] [place] [id number] [place] Chloride [Moles/Vol] 107 mmol/L Normal 98-107 [facility] Comment on above: Performed By: #### L IPID, BMP, LDLD, MG, CBCNO #### [facility] [address] [place] [address] [place] CO2 [Moles/Vol] 23.0 mmol/L Normal 21.0-31.0 [facility] Comment on above: Performed By: #### L IPID, BMP, LDLD, MG, CBCNO #### [place] [address] [place] Creatinine [Mass/Vol] 1.50 mg/dL High 0.70-1.30 [facility] Comment on above: Performed By: #### L IPID, BMP, LDLD, MG, CBCNO #### [place] [address] [place] Creatinine Clr Calc Pharmacy 61.83 Normal [facility] Comment on above: Result Comment: PERF ORMED BY: [place] [address] PATHOLOGIST DIRECTOR ENTERPRISE DATA ARCHITECTURE RADHA CARR M.D. Performed By: #### L IPID, BMP, LDLD, MG, CBCNO #### [place] [address] [place] GFR/1.73 sq M.predicted MDRD (S/P/Bld) [Vol rate/Area] 51.666 mL/min/{1.73_m2} Normal [facility] Comment on above: Performed By: #### L IPID, BMP, LDLD, MG, CBCNO #### [place] [address] [place] Glucose [Mass/Vol] 172 mg/dL High 70-100 [facility] Comment on above: Result Comment: [place] Glucose Reference Range is dependent on time and content of last meal. Glucose of more than 200 mg/dL in a nonstressed, ambulatory subject supports the diagnosis of Diabetes Mellitus. ADA recommended reference range Performed By: #### L IPID, BMP, LDLD, MG, CBCNO #### [place] [address] [place] Potassium [Moles/Vol] 4.1 mmol/L Normal 3.5-5.1 [facility] Comment on above: Performed By: #### L IPID, BMP, LDLD, MG, CBCNO #### [facility] [address] Sodium [Moles/Vol] 141 mmol/L Normal 136-145 [facility] Comment on above: Performed By: #### L IPID, BMP, LDLD, MG, CBCNO #### [facility] [address] Urea nitrogen [Mass/Vol] 15 mg/dL Normal 7-25 [facility] Comment on above: Performed By: #### L IPID, BMP, LDLD, MG, CBCNO #### [facility] [address] Basophils Auto (Bld) [#/Vol] Ordered By: César Arreaga on 07-11-2023 Basophils (Bld) [#/Vol] 0.1 10*3/uL 0.0-0.2 [facility] Basophils/100 WBC Auto (Bld) Ordered By: César Arreaga on 07-11-2023 Basophils/100 WBC (Bld) 0.7 % . [facility] Bilirubin Test strip Ql (U)O rdered By: César Arreaga on 07-11-2023 Bilirubin Ql (U) Negative Negative [facility] Bilirubin.direct [Mass/volum e] in Serum or PlasmaOrdered By: César Arreaga on 07-11-2023 Bilirubin.direct [Mass/Vol] 0.10 mg/dL 0.03-0.18 [facility] Bilirubin.total [Mass/volume ] in Serum or PlasmaOrdered By: César Arreaga on 07-11-2023 Bilirubin [Mass/Vol] 0.6 mg/dL 0.3-1.0 [facility] Blood Cultureon 07-11-2023 Bacteria identified Cx Nom (Bld) MARIA EUGENIA Rosa Notified AB 2048 NO GROWTH 5 DAYS PERFORMED BY: [place] [address] PATHOLOGIST DIRECTOR ENTERPRISE DATA ARCHITECTURE RADHA CARR M.D. Normal [facility] Comment on above: Performed By: #### L IPID, BMP, LDLD, MG, CBCNO #### [facility] [address] Bacteria identified Cx Nom (Bld) NO GROWTH 5 DAYS PERFORMED BY: [place] [address] PATHOLOGIST DIRECTOR ENTERPRISE DATA ARCHITECTURE RADHA CARR M.D. Normal [facility] Comment on above: Performed By: #### L IPID, BMP, LDLD, MG, CBCNO #### [facility] [address] COVID CepheidOrdered By: Ashley Arreaga on 07-11-2023 SARS-CoV-2 (COVID-19) Ab IA Ql Negative Negative [facility] Comment on above: This is a duplicate Cepheid Xpert Xpress CoV-2/Flu/RSV Plus RNA by RT-PCR result to be used for statistical tracking purpose only. SARS-CoV-2 (COVID-19) RNA ANGÉLICA+probe Ql (Unsp spec) [facility] COVID-19 / Flu A/B / RSV PCR [...] or Cepheid Disclaimer revoked sooner. PERFORMED BY: [place] [address] PATHOLOGIST DIRECTOR ENTERPRISE DATA ARCHITECTURE RADHA CARR M.D. [place] [facility] Comment on above: Performed By: #### L IPID, BMP, LDLD, MG, CBCNO #### [address] head/brain wo conon 07-11 CT head/brain wo con [facility] [address] CT Scan Report Signed Patient: Rod Mathias MR#: [id number] 1426 : 1960 Acct:[id number] Age/Sex: 62 / M ADM Date: 07/11/23 Loc: ER Room: Type: [facility] ER Attending Dr: Copies to: César [...] Darien Roldan M.D.07/11/2023 5:32 PM Dictation Location: [place] [address] Transcribed By: [facility] 07/11/23 173 Dictated By: Darien Roldan II, MD 07/11/23 1728 Signed By: 07/11/23 173 Normal [facility] Cepheid COVID PCR Negativeon 07-11-2023 SARS-CoV-2 (COVID-19) RNA ANGÉLICA+probe Ql (Unsp spec) Negative Normal Negative [facility] Comment on above: Result Comment: This is a duplicate CepZhou Heiyaid Xpert Xpress CoV-2/Flu/RSV Plus RNA by RT-PCR result to be used for statistical tracking purpose only. PERFORMED BY: [place] [address] PATHOLOGIST DIRECTOR ENTERPRISE DATA ARCHITECTURE RADHA CARR M.D. Performed By: #### L IPID, BMP, LDLD, MG, CBCNO #### [place] [id number] [facility] Color Auto (U)Ordered By: Luis Arreaga on 07-11-2023 Color (U) Yellow Yellow [facility] Complete Blood Count Auto Di ffon 07-11-2023 Basophils (Bld) [#/Vol] 0.1 10*3/uL Normal 0.0-0.2 [facility] Comment on above: Result Comment: PERF ORMED BY: [place] [address] PATHOLOGIST DIRECTOR ENTERPRISE DATA ARCHITECTURE RADHA CARR M.D. Performed By: #### U A #### [place] [address] [place] Basophils/100 WBC (Bld) 0.7 % Normal . [facility] Comment on above: Performed By: #### U A #### [place] [address] [place] Eosinophils (Bld) [#/Vol] 0.1 10*3/uL Normal 0.0-0.45 [facility] Comment on above: Performed By: #### U A #### [address] Eosinophils/100 WBC (Bld) 1.0 % Normal . [facility] Comment on above: Performed By: #### U A #### [address] Erythrocyte distribution width (RBC) [Ratio] 14.3 % Normal 12.0-14.8 [facility] Comment on above: Performed By: #### U A #### [address] Hematocrit (Bld) [Volume fraction] 44.8 % Normal 38.8-50.0 [facility] Comment on above: Performed By: #### U A #### [address] Hemoglobin (Bld) [Mass/Vol] 14.9 g/dL Normal 13.0-17.0 [facility] Comment on above: Performed By: #### U A #### [place] [address] [place] Lymphocytes (Bld) [#/Vol] 2.4 10*3/uL Normal 1.00-4.8 [facility] Comment on above: Performed By: #### U A #### [place] [address] [place] Lymphocytes/100 WBC (Bld) 27.5 % Normal . [facility] Comment on above: Performed By: #### U A #### [address] MCH (RBC) [Entitic mass] 30.8 pg Normal 27.5-35.2 [facility] Comment on above: Performed By: #### U A #### [address] MCV (RBC) [Entitic vol] 92.8 fL Normal 83.5-101 [facility] Comment on above: Performed By: #### U A #### [address] Mean Corpuscular HGB Conc 33.2 g/dL Normal 32.5-35.6 [facility] Comment on above: Performed By: #### U A #### [address] Monocytes (Bld) [#/Vol] 0.7 10*3/uL Normal 0.0-0.8 [facility] Comment on above: Performed By: #### U A #### [address] Monocytes/100 WBC (Bld) 16.92 % Normal 0.00-20.00 [facility] Comment on above: Performed By: #### U A #### [address] Monocytes/100 WBC (Bld) 8.1 % Normal . [facility] Comment on above: Performed By: #### U A #### [address] Neutrophils (Bld) [#/Vol] 5.6 10*3/uL Normal 1.8-7.7 [facility] Comment on above: Performed By: #### U A #### [address] Neutrophils/100 WBC (Bld) 62.7 % Normal . [facility] Comment on above: Performed By: #### U A #### [address] NRBC% 0.1 /100{WBC} Normal 0-0.5 [facility] Comment on above: Performed By: #### U A #### [facility] [address] Platelet mean volume (Bld) [Entitic vol] 8.5 fL Normal 6.6-10.1 [facility] Comment on above: Performed By: #### U A #### [facility] [address] [place] [address] [place] Platelets (Bld) [#/Vol] 222 10*3/uL Normal 150-450 [facility] Comment on above: Performed By: #### U A #### [address] RBC (Bld) [#/Vol] 4.83 10*6/uL Normal 3.90-5.60 [facility] Comment on above: Performed By: #### U A #### [address] WBC (Bld) [#/Vol] 8.9 10*3/uL Normal 4.1-10.5 [facility] Comment on above: Performed By: #### U A #### [place] [address] [place] Creatine Kinaseon 07-11-2023 CK [Catalytic activity/Vol] 69 U/L Normal 30-223 [facility] Comment on above: Performed By: #### U A #### [place] [address] [place] Creatine kinase [Enzymatic a ctivity/volume] in Serum or PlasmaOrdered By: César Arreaga on 07-11-2023 CK [Catalytic activity/Vol] 69 U/L 30-223 [facility] ECG 12 lead ECGon 07-11-2023 ECG 12 lead ECG [facility] [place] [address] [place] [address] Electrocardiograph Report Signed Patient: Rod Mathias MR#: [id number] 1426 : 1960 Acct:[id number] Age/Sex: 62 / M ADM Date: 07/11/23 Loc: Room: 3A7150-4 Type: ADM INOo Attending Dr: Shaila Bowen [...] Anterior leads Confirmed by César Arreaga DO ([id number]) on 07/11/2023 7:47:31 PM Referred By: Electronically Signed By:César Arreaga DO Transcribed By: MUS Signed By César Arreaga DO 1946 Normal [facility] Eosinophils Auto (Bld) [#/Vo l]Ordered By: César Arreaga on 07-11-2023 Eosinophils (Bld) [#/Vol] 0.1 10*3/uL 0.0-0.45 [facility] Eosinophils/100 WBC Auto (Bl d)Ordered By: César Arreaga on 07-11-2023 Eosinophils/100 WBC (Bld) 1.0 % . [facility] Folate [Mass/volume] in Seru m or PlasmaOrdered By: Shaila Bowen on 07-11-2023 Folate [Mass/Vol] 20.1 ng/mL >5.9 [facility] Comment on above: Folate reference ran ge: >5.9 ng/mlThe WHO technical consultation on folate and vitamin [id number] has determined that folate concentrations lessthan 4 ng/ml are considered deficient. Globulin Calc (S) [Mass/Vol] Ordered By: César Arreaga on 07-11-2023 Globulin (S) [Mass/Vol] 3.1 g/dL [facility] Glucose Poct Glucometerson 0 07-11-2023 Commemt1 Glu2: Cleaned Meter Normal [facility] Comment on above: Result Comment: PERF ORMED BY: [place] [address] PATHOLOGIST DIRECTOR ENTERPRISE DATA ARCHITECTURE RADHA CARR M.D. Performed By: #### G ANAMIKA #### Point of Care testing , Glucose [Mass/Vol] 181 mg/dL Normal [facility] Comment on above: Result Comment: [facility] Glucose Reference Range is dependent on time and content of last meal. Glucose of more than 200 mg/dL in a nonstressed, ambulatory subject supports the diagnosis of Diabetes Mellitus. Performed By: #### G ANAMIKA #### Point of Care testing , Hepatic Panelon 07-11-2023 Albumin [Mass/Vol] 4.7 g/dL Normal 3.5-5.7 [facility] Comment on above: Performed By: #### L IPID, BMP, LDLD, MG, CBCNO #### [place] [address] [place] Albumin/Globulin [Mass ratio] 1.5 {ratio} Normal [facility] Comment on above: Performed By: #### L IPID, BMP, LDLD, MG, CBCNO #### [place] [address] [place] ALP [Catalytic activity/Vol] 94 U/L Normal 34-104 [facility] Comment on above: Performed By: #### L IPID, BMP, LDLD, MG, CBCNO #### [place] [address] [place] ALT [Catalytic activity/Vol] 18 U/L Normal 7-52 [facility] Comment on above: Performed By: #### L IPID, BMP, LDLD, MG, CBCNO #### [place] [address] [place] AST [Catalytic activity/Vol] 15 U/L Normal 13-39 [facility] Comment on above: Performed By: #### L IPID, BMP, LDLD, MG, CBCNO #### [place] [address] [place] Bilirubin [Mass/Vol] 0.6 mg/dL Normal 0.3-1.0 [facility] Comment on above: Performed By: #### L IPID, BMP, LDLD, MG, CBCNO #### [address] Bilirubin,Indirect 0.5 mg/dL Normal [facility] Comment on above: Performed By: #### L IPID, BMP, LDLD, MG, CBCNO #### [address] Bilirubin.indirect [Mass/Vol] 0.10 mg/dL Normal 0.03-0.18 [facility] Comment on above: Performed By: #### L IPID, BMP, LDLD, MG, CBCNO #### [address] Globulin (S) [Mass/Vol] 3.1 g/dL Normal [facility] Comment on above: Performed By: #### L IPID, BMP, LDLD, MG, CBCNO #### [address] Protein [Mass/Vol] 7.8 g/dL Normal 6.4-8.9 [facility] Comment on above: Performed By: #### L IPID, BMP, LDLD, MG, CBCNO #### [address] INR in Platelet poor plasma by Coagulation assayOrdered By: César Arreaga on 07-11-2023 INR Coag (PPP) [Relative time] 0.9 {INR} [facility] Comment on above: INR Therapeutic Rang e [...] on 07-11-2023 Ketones (U) [Mass/Vol] Negative Negative [facility] Laboratory - Chemistry and C hemistry - challengeOrdered By: César Arreaga on 07-11-2023 CO2 [Moles/Vol] 20.4 mmol/L 23.0-27.0 [facility] HCO3 (Bld) [Moles/Vol] 19.4 mmol/L 23.0-29.0 [facility] Lactate [Moles/volume] in Se rum or PlasmaOrdered By: César Arreaga on 07-11-2023 Lactate [Moles/Vol] 1.7 mmol/L 0.5-2.2 [facility] Lactic Acidon 07-11-2023 Lactate [Moles/Vol] 1.7 mmol/L Normal 0.5-2.2 [facility] Comment on above: Result Comment: PERF ORMED BY: [place] [address] PATHOLOGIST DIRECTOR [employer]CH[employer] RADHA CARR M.D. Performed By: #### L IPID, BMP, LDLD, MG, CBCNO #### [address] Lymphocytes Auto (Bld) [#/Vo l]Ordered By: César Arreaga on 07-11-2023 Lymphocytes (Bld) [#/Vol] 2.4 10*3/uL 1.00-4.8 [facility] Lymphocytes/100 WBC Auto (Bl d)Ordered By: César Arreaga on 07-11-2023 Lymphocytes/100 WBC (Bld) 27.5 % . [facility] Monocyte distribution width [Entitic volume] in Blood by AutomatedOrdered By: César Arreaga on 07-11-2023 Monocyte distribution width Auto (Bld) [Entitic vol] 16.92 % 0.00-20.00 [facility] Monocytes Auto (Bld) [#/Vol] Ordered By: César Arreaga on 07-11-2023 Monocytes (Bld) [#/Vol] 0.7 10*3/uL 0.0-0.8 [facility] Monocytes/100 WBC Auto (Bld) Ordered By: César Arreaga on 07-11-2023 Monocytes/100 WBC (Bld) 8.1 % . [facility] Natriuretic peptide B [Mass/ Vol]Ordered By: César Arreaga on 07-11-2023 Natriuretic peptide B (Bld) [Mass/Vol] 10.0 pg/mL 5-100 [facility] Neutrophils Auto (Bld) [#/Vo l]Ordered By: César Arreaga on 07-11-2023 Neutrophils (Bld) [#/Vol] 5.6 10*3/uL 1.8-7.7 [facility] Neutrophils/100 WBC Auto (Bl d)Ordered By: César Arreaga on 07-11-2023 Neutrophils/100 WBC (Bld) 62.7 % . [facility] Nitrite Test strip Ql (U)Ord ered By: César Arreaga on 07-11-2023 Nitrite Ql (U) Negative Negative [facility] No Panel InformationOrdered By: César Arreaga on 07-11-2023 Arterial Blood Base Excess -4.6 mmol/L -3.0-3.0 [facility] Arterial Blood Oxygen Content 8.7 mmol/L 6.6-9.7 [facility] Arterial Blood Oxygen Saturation 95.7 % 95.0-100.0 [facility] Arterial Blood Partial Pressure CO2 33.2 mm[Hg] 35.0-45.0 [facility] Arterial Blood Partial Pressure O2 77.1 mm[Hg] 80.0-100.0 [facility] Arterial Blood pH 7.39 7.35-7.45 [facility] Blood Gas Critical Value See comment [facility] Comment on above: Critical Value mcdowell d on: 07/11/2023 at 18:36 Blood Gas Sample Site Left radial [facility] FiO2 21 % [facility] Nucleated erythrocytes [Pres ence] in Blood by Automated countOrdered By: César Arreaga on 07-11-2023 Nucleated RBC Auto Ql (Bld) 0.1 /100{WBC} 0-0.5 [facility] Partial Thromboplastin Timeo n 07-11-2023 aPTT Coag (Bld) [Time] 28.5 s Normal 25.1-36.5 [facility] Comment on above: Result Comment: A he matocrit value greater than 55% may lead to inaccurate results in coagulation testing. Patients having hematocrit values >55% require a special collection tube for coagulation studies. Please contact the laboratory at [phone] for redraw instructions. PERFORMED BY: [place] [id number] PATHOLOGIST DIRECTOR [employer]CH[employer] RADHA CARR M.D. Performed By: #### U A #### [place] [id number] [facility] Protein Auto test strip (U) [Mass/Vol]Ordered By: César Arreaga on 07-11-2023 Protein (U) [Mass/Vol] Negative Negative [facility] Protein [Mass/volume] in Ser um or PlasmaOrdered By: César Arreaga on 07-11-2023 Protein [Mass/Vol] 7.8 g/dL 6.4-8.9 [facility] Prothrombin Time INRon 07-11 INR Coag (PPP) [Relative time] 0.9 {INR} Normal [facility] Comment on above: Result Comment: [...] 4.5 Performed By: #### U A #### [place] [id number] [facility] PT Coag (PPP) [Time] 10.8 s Normal 9.0-12.9 [facility] Comment on above: Result Comment: A he matocrit value greater than 55% may lead to inaccurate results in coagulation testing. Patients having hematocrit values >55% require a special collection tube for coagulation studies. Please contact the laboratory at [phone] for redraw instructions. Performed By: #### U A #### [address] [address] [facility] Prothrombin time (PT)Ordered By: César Arreaga on 07-11-2023 PT Coag (PPP) [Time] 10.8 s 9.0-12.9 [facility] Comment on above: A hematocrit value g reater than 55% may lead to inaccurate results in coagulation testing. Patients having hematocrit values >55% require a special collection tube for coagulation studies. Please contact the laboratory at [phone] for redraw instructions. Serum or plasma albumin/glob ulin mass ratioOrdered By: César Arreaga on 07-11-2023 Albumin/Globulin [Mass ratio] 1.5 {ratio} [facility] Serum or plasma non-glucuron idated bilirubin measurement (mass/volume)Ordered By: César Arreaga on 07-11-2023 Bilirubin.indirect [Mass/Vol] 0.5 mg/dL [facility] Specific gravity Auto test s trip (U) [Rel density]Ordered By: César Arreaga on 07-11-2023 Specific gravity (U) [Rel density] 1.025 1.001-1.030 [facility] Thyroid Stimulating Hormoneo n 07-11-2023 TSH Qn 1.15 m[IU]/L Normal 0.45-5.33 [facility] Comment on above: Order Comment: Comme nt add on Comment Add on Result Comment: PERF ORMED BY: [place] [address] PATHOLOGIST DIRECTOR [employer]CH[employer]URE RADHA CARR M.D. Performed By: #### L IPID, BMP, LDLD, MG, CBCNO #### [address] Thyrotropin [Units/volume] i n Serum or PlasmaOrdered By: Shaila Bowen on 07-11-2023 TSH Qn 1.15 m[IU]/L 0.45-5.33 [facility] Troponin I High Sensitivityo n 07-11-2023 Troponin I High Sensitivity 7.9 pg/mL Normal 0.0-20.0 [facility] Comment on above: Result Comment: PERF ORMED BY: [facility] [address] [place] [address] PATHOLOGIST DIRECTOR [employer]CH[employer] RADHA CARR M.D. Performed By: #### U A #### [address] Troponin I.cardiac [Mass/vol ume] in Serum or Plasma by Detection limit <= 0.01 ng/Ordered By: César Arreaga on 07-11-2023 Troponin I.cardiac DL <= 0.01 ng/mL [Mass/Vol] 7.9 pg/mL 0.0-20.0 [facility] Urinalysison 07-11-2023 Appearance (U) Clear Normal Clear [facility] Comment on above: Order Comment: Name Collection Type:: Clean-Voided Midstream Performed By: #### L IPID, BMP, LDLD, MG, CBCNO #### [address] Bilirubin,Urine Negative Normal Negative [facility] Comment on above: Order Comment: Name Collection Type:: Clean-Voided Midstream Performed By: #### L IPID, BMP, LDLD, MG, CBCNO #### [address] Color (U) Yellow Normal Yellow [facility] Comment on above: Order Comment: Name Collection Type:: Clean-Voided Midstream Performed By: #### L IPID, BMP, LDLD, MG, CBCNO #### [address] Glucose Ql (U) >=1000 High Normal [facility] Comment on above: Order Comment: Name Collection Type:: Clean-Voided Midstream Performed By: #### L IPID, BMP, LDLD, MG, CBCNO #### [address] Ketones Ql (U) Negative Normal Negative [facility] Comment on above: Order Comment: Name Collection Type:: Clean-Voided Midstream Performed By: #### L IPID, BMP, LDLD, MG, CBCNO #### [address] Leukocyte esterase Test strip Ql (U) Negative Normal Negative [facility] Comment on above: Order Comment: Name Collection Type:: Clean-Voided Midstream Performed By: #### L IPID, BMP, LDLD, MG, CBCNO #### [address] Nitrite,Urine Negative Normal Negative [facility] Comment on above: Order Comment: Name Collection Type:: Clean-Voided Midstream Performed By: #### L IPID, BMP, LDLD, MG, CBCNO #### [address] Occult Blood,Urine Negative Normal Negative [facility] Comment on above: Order Comment: Name Collection Type:: Clean-Voided Midstream Result Comment: PERF ORMED BY: [place] [address] PATHOLOGIST DIRECTOR [employer] ARCHITECTURE RADHA CARR M.D. Performed By: #### L IPID, BMP, LDLD, MG, CBCNO #### [address] pH (U) 5.5 [pH] Normal 5.0-9.0 [facility] Comment on above: Order Comment: Name Collection Type:: Clean-Voided Midstream Performed By: #### L IPID, BMP, LDLD, MG, CBCNO #### [address] Protein,Urine Negative Normal Negative [facility] Comment on above: Order Comment: Name Collection Type:: Clean-Voided Midstream Performed By: #### L IPID, BMP, LDLD, MG, CBCNO #### [address] Specificy [place],Urine 1.025 Normal 1.001-1.030 [facility] Comment on above: Order Comment: Name Collection Type:: Clean-Voided Midstream Performed By: #### L IPID, BMP, LDLD, MG, CBCNO #### [address] Urobilinogen,Urine Normal Normal Normal [facility] Comment on above: Order Comment: Name Collection Type:: Clean-Voided Midstream Performed By: #### L IPID, BMP, LDLD, MG, CBCNO #### [facility] [address] Urine clarity by refractomet ry automatedOrdered By: César Arreaga on 07-11-2023 Clarity Refractometry automated (U) Clear Clear [facility] Urine glucose measurement by automated test strip (mass/volume)Ordered By: César Arreaga on 07-11-2023 Glucose Auto test strip (U) [Mass/Vol] >=1000 mg/dL Normal [facility] Urine hemoglobin detection b y automated test stripOrdered By: César Arreaga on 07-11-2023 Hemoglobin Auto test strip Ql (U) Negative Negative [facility] Urine leukocyte esterase det ection by automated test stripOrdered By: César Arreaga on 07-11-2023 Leukocyte esterase Auto test strip Ql (U) Negative Negative [facility] Urobilinogen Auto test strip (U) [Mass/Vol]Ordered By: César Arreaga on 07-11-2023 Urobilinogen (U) [Mass/Vol] Normal mg/dL Normal [facility] Vit. B12/Folate Profileon Cobalamin (Vitamin B12) [Mass/Vol] 206 pg/mL Normal 180-914 [facility] Comment on above: Order Comment: Trang dietz add on Comment Add on Performed By: #### L IPID, BMP, LDLD, MG, CBCNO #### [facility] [address] Folate 20.1 ng/mL Normal >5.9 [facility] Comment on above: Order Comment: Trang nt add on Comment Add on Result Comment: [place] te reference range: >5.9 ng/ml The WHO technical consultation on folate and vitamin b12 deficiencies has determined that folate concentrations less than 4 ng/ml are considered deficient. Performed By: #### L IPID, BMP, LDLD, MG, CBCNO #### [facility] [address] Vitamin B12 ser/plasOrdered By: Shaila Bowen on 07-11-2023 Cobalamin (Vitamin B12) [Mass/Vol] 206 pg/mL 180-914 [facility] WBC Auto (Bld) [#/Vol]Ordere d By: César Arreaga on 07-11-2023 WBC (Bld) [#/Vol] 8.9 10*3/uL 4.1-10.5 [facility] XR chest 1V portableon 07-11 XR chest 1V portable [place] [address] XRay Report Signed Patient: Rod Mathias MR#: [id number] : 1960 Acct:[id number] Age/Sex: 62 / M ADM Date: 07/11/23 Loc: Room: [address] [place] [address] Type: ADM INOo Attending Dr: Shaila Bowen [...] Darien Roldan M.D.07/11/2023 8:41 PM Dictation Location: [place] [address] Transcribed By: [facility] 07/11/232040 Dictated By: Darien Roldan II, MD 07/11/232038 Signed By: 07/11/232040 Normal [facility] pH Auto test strip (U)Ordere d By: César Arreaga on 07-11-2023 pH (U) 5.5 [pH] 5.0-9.0 [facility] Activated partial thrombopla stin time (aPTT) in platelet poor plasma by coagulation aOrdered By: Mark Anthony Naylor on 06-07-2023 aPTT Coag (PPP) [Time] 30.6 s 25.1-36.5 [facility] Basic Metabolic Panelon 05-21 Anion gap [Moles/Vol] 15.0 mmol/L Normal 6.0-15.0 [facility] Comment on above: Performed By: #### L IPID, BMP, LDLD, MG, CBCNO #### [address] Calcium [Mass/Vol] 9.6 mg/dL Normal 8.6-10.3 [facility] Comment on above: Result Comment: PERF ORMED BY: [place] [address] PATHOLOGIST DIRECTOR [employer] ARCHITECTURE RADHA CARR M.D. Performed By: #### L IPID, BMP, LDLD, MG, CBCNO #### [address] Chloride [Moles/Vol] 106 mmol/L Normal 98-107 [facility] Comment on above: Performed By: #### L IPID, BMP, LDLD, MG, CBCNO #### [address] CO2 [Moles/Vol] 22.5 mmol/L Normal 21.0-31.0 [facility] Comment on above: Performed By: #### L IPID, BMP, LDLD, MG, CBCNO #### [place] [address] [place] Creatinine [Mass/Vol] 1.52 mg/dL High 0.70-1.30 [facility] Comment on above: Performed By: #### L IPID, BMP, LDLD, MG, CBCNO #### [place] [address] [place] GFR/1.73 sq M.predicted MDRD (S/P/Bld) [Vol rate/Area] 50.852 mL/min/{1.73_m2} Normal [facility] Comment on above: Performed By: #### L IPID, BMP, LDLD, MG, CBCNO #### [facility] [address] Glucose [Mass/Vol] 185 mg/dL High 70-100 [facility] Comment on above: Result Comment: [place] Glucose Reference Range is dependent on time and content of last meal. Glucose of more than 200 mg/dL in a nonstressed, ambulatory subject supports the diagnosis of Diabetes Mellitus. ADA recommended reference range Performed By: #### L IPID, BMP, LDLD, MG, CBCNO #### [facility] [address] Potassium [Moles/Vol] 4.5 mmol/L Normal 3.5-5.1 [facility] Comment on above: Performed By: #### L IPID, BMP, LDLD, MG, CBCNO #### [facility] [address] [place] [address] [place] Sodium [Moles/Vol] 139 mmol/L Normal 136-145 [facility] Comment on above: Performed By: #### L IPID, BMP, LDLD, MG, CBCNO #### [facility] [address] Urea nitrogen [Mass/Vol] 16 mg/dL Normal 7-25 [facility] Comment on above: Performed By: #### L IPID, BMP, LDLD, MG, CBCNO #### [facility] [address] [place] [address] [place] Basophils Auto (Bld) [#/Vol] Ordered By: Mark Anthony Naylor on 06-07-2023 Basophils (Bld) [#/Vol] 0.1 10*3/uL 0.0-0.2 [facility] Basophils/100 WBC Auto (Bld) Ordered By: Mark Anthony Naylor on 06-07-2023 Basophils/100 WBC (Bld) 0.5 % . [facility] Calcium [Mass/volume] in Ser um or PlasmaOrdered By: Mark Anthony Naylor on 06-07-2023 Calcium [Mass/Vol] 9.6 mg/dL 8.6-10.3 [facility] Carbon dioxide, total [Moles /volume] in Serum or PlasmaOrdered By: Mark Anthony Naylor on 06-07-2023 CO2 [Moles/Vol] 22.5 mmol/L 21.0-31.0 [facility] Chloride [Moles/volume] in S ayanna or PlasmaOrdered By: Mark Anthony Naylor on 06-07-2023 Chloride [Moles/Vol] 106 mmol/L 98-107 [facility] Complete Blood Count Auto Di ffon 06-07-2023 Basophils (Bld) [#/Vol] 0.1 10*3/uL Normal 0.0-0.2 [facility] Comment on above: Result Comment: PERF ORMED BY: [place] [address] PATHOLOGIST DIRECTOR [employer]TER[employer] ARCHITECTURE RADHA CARR M.D. Performed By: #### L IPID, BMP, LDLD, MG, CBCNO #### [address] Basophils/100 WBC (Bld) 0.5 % Normal . [facility] Comment on above: Performed By: #### L IPID, BMP, LDLD, MG, CBCNO #### [address] Eosinophils (Bld) [#/Vol] 0.1 10*3/uL Normal 0.0-0.45 [facility] Comment on above: Performed By: #### L IPID, BMP, LDLD, MG, CBCNO #### [address] Eosinophils/100 WBC (Bld) 0.5 % Normal . [facility] Comment on above: Performed By: #### L IPID, BMP, LDLD, MG, CBCNO #### [address] Erythrocyte distribution width (RBC) [Ratio] 13.8 % Normal 12.0-14.8 [facility] Comment on above: Performed By: #### L IPID, BMP, LDLD, MG, CBCNO #### [address] Hematocrit (Bld) [Volume fraction] 43.2 % Normal 38.8-50.0 [facility] Comment on above: Performed By: #### L IPID, BMP, LDLD, MG, CBCNO #### [address] Hemoglobin (Bld) [Mass/Vol] 14.5 g/dL Normal 13.0-17.0 [facility] Comment on above: Performed By: #### L IPID, BMP, LDLD, MG, CBCNO #### [address] Lymphocytes (Bld) [#/Vol] 2.2 10*3/uL Normal 1.00-4.8 [facility] Comment on above: Performed By: #### L IPID, BMP, LDLD, MG, CBCNO #### [address] Lymphocytes/100 WBC (Bld) 18.4 % Normal . [facility] Comment on above: Performed By: #### L IPID, BMP, LDLD, MG, CBCNO #### [address] MCH (RBC) [Entitic mass] 30.8 pg Normal 27.5-35.2 [facility] Comment on above: Performed By: #### L IPID, BMP, LDLD, MG, CBCNO #### [address] MCV (RBC) [Entitic vol] 92.0 fL Normal 83.5-101 [facility] Comment on above: Performed By: #### L IPID, BMP, LDLD, MG, CBCNO #### [address] Mean Corpuscular HGB Conc 33.5 g/dL Normal 32.5-35.6 [facility] Comment on above: Performed By: #### L IPID, BMP, LDLD, MG, CBCNO #### [address] Monocytes (Bld) [#/Vol] 0.7 10*3/uL Normal 0.0-0.8 [facility] Comment on above: Performed By: #### L IPID, BMP, LDLD, MG, CBCNO #### [address] Monocytes/100 WBC (Bld) 5.9 % Normal . [facility] Comment on above: Performed By: #### L IPID, BMP, LDLD, MG, CBCNO #### [address] Neutrophils (Bld) [#/Vol] 9.0 10*3/uL High 1.8-7.7 [facility] Comment on above: Performed By: #### L IPID, BMP, LDLD, MG, CBCNO #### [address] Neutrophils/100 WBC (Bld) 74.7 % Normal . [facility] Comment on above: Performed By: #### L IPID, BMP, LDLD, MG, CBCNO #### [address] NRBC% 0.1 /100{WBC} Normal 0-0.5 [facility] Comment on above: Performed By: #### L IPID, BMP, LDLD, MG, CBCNO #### [address] Platelet mean volume (Bld) [Entitic vol] 8.5 fL Normal 6.6-10.1 [facility] Comment on above: Performed By: #### L IPID, BMP, LDLD, MG, CBCNO #### [place] [address] [place] Platelets (Bld) [#/Vol] 232 10*3/uL Normal 150-450 [facility] Comment on above: Performed By: #### L IPID, BMP, LDLD, MG, CBCNO #### [place] [address] [place] RBC (Bld) [#/Vol] 4.70 10*6/uL Normal 3.90-5.60 [facility] Comment on above: Performed By: #### L IPID, BMP, LDLD, MG, CBCNO #### [facility] [address] WBC (Bld) [#/Vol] 12.0 10*3/uL High 4.1-10.5 [facility] Comment on above: Performed By: #### L IPID, BMP, LDLD, MG, CBCNO #### [facility] [address] Creatinine [Mass/volume] in Serum or PlasmaOrdered By: Mark Anthony Naylor on 06-07-2023 Creatinine [Mass/Vol] 1.52 mg/dL 0.70-1.30 [facility] Eosinophils Auto (Bld) [#/Vo l]Ordered By: Mark Anthony Naylor on 06-07-2023 Eosinophils (Bld) [#/Vol] 0.1 10*3/uL 0.0-0.45 [facility] Eosinophils/100 WBC Auto (Bl d)Ordered By: Mark Anthony Naylor on 06-07-2023 Eosinophils/100 WBC (Bld) 0.5 % . [facility] Erythrocyte distribution wid th Auto (RBC) [Ratio]Ordered By: Mark Anthony Naylor on 06-07-2023 Erythrocyte distribution width (RBC) [Ratio] 13.8 % 12.0-14.8 [facility] Glucose [Mass/volume] in Ser um or PlasmaOrdered By: Mark Anthony Naylor on 06-07-2023 Glucose [Mass/Vol] 185 mg/dL 70-100 [facility] Comment on above: ADA recommended refe rence rangeRandom Glucose Reference Range is dependent on time and content of last meal. Glucose of more than 200 mg/dL in a nonstressed, ambulatory subject supports the diagnosis of Diabetes Mellitus. Hematocrit Auto (Bld) [Volum e fraction]Ordered By: Mark Anthony Naylor on 06-07-2023 Hematocrit (Bld) [Volume fraction] 43.2 % 38.8-50.0 [facility] Hemoglobin [Mass/volume] in BloodOrdered By: Mark Anthony Naylor on 06-07-2023 Hemoglobin (Bld) [Mass/Vol] 14.5 g/dL 13.0-17.0 [facility] INR in Platelet poor plasma by Coagulation assayOrdered By: Mark Anthony Naylor on 06-07-2023 INR Coag (PPP) [Relative time] 1.0 {INR} [facility] Comment on above: INR Therapeutic Rang e [...] PT Coag (PPP) [Time] 11.3 s 9.0-12.9 [facility] Leukocytes [#/volume] correc desean for nucleated erythrocytes in Blood by Automated counOrdered By: Mark Anthony Naylor on 06-07-2023 WBC corrected for nucl RBC Auto (Bld) [#/Vol] 12.0 10*3/uL 4.1-10.5 [facility] Lymphocytes Auto (Bld) [#/Vo l]Ordered By: Mark Anthony Naylor on 06-07-2023 Lymphocytes (Bld) [#/Vol] 2.2 10*3/uL 1.00-4.8 [facility] Lymphocytes/100 WBC Auto (Bl d)Ordered By: Mark Anthony Naylor on 06-07-2023 Lymphocytes/100 WBC (Bld) 18.4 % . [facility] MCH Auto (RBC) [Entitic mass ]Ordered By: Mark Anthony Naylor on 06-07-2023 MCH (RBC) [Entitic mass] 30.8 pg 27.5-35.2 [facility] MCHC Auto (RBC) [Mass/Vol]Or dered By: Mark Anthony Naylor on 06-07-2023 MCHC (RBC) [Mass/Vol] 33.5 g/dL 32.5-35.6 [facility] MCV Auto (RBC) [Entitic vol] Ordered By: Mark Anthony Naylor on 06-07-2023 MCV (RBC) [Entitic vol] 92.0 fL 83.5-101 [facility] Monocytes Auto (Bld) [#/Vol] Ordered By: Mark Anthony Kumar on 06-07-2023 Monocytes (Bld) [#/Vol] 0.7 10*3/uL 0.0-0.8 [facility] Monocytes/100 WBC Auto (Bld) Ordered By: Mark Anthony Naylor on 06-07-2023 Monocytes/100 WBC (Bld) 5.9 % . [facility] Neutrophils Auto (Bld) [#/Vo l]Ordered By: Mark Anthony Naylor on 06-07-2023 Neutrophils (Bld) [#/Vol] 9.0 10*3/uL 1.8-7.7 [facility] Neutrophils/100 WBC Auto (Bl d)Ordered By: Mark Anthony Naylor on 06-07-2023 Neutrophils/100 WBC (Bld) 74.7 % . [facility] No Panel InformationOrdered By: Mark Anthony Naylor on 06-07-2023 Estimated GFR (CKD-EPI) 50.852 mL/Min [facility] Creatinine Clearance (Chem N/A [facility] Nucleated erythrocytes [Pres ence] in Blood by Automated countOrdered By: Mark Anthonymarquise Naylor on 06-07-2023 Nucleated RBC Auto Ql (Bld) 0.1 /100{WBC} 0-0.5 [facility] Partial Thromboplastin Timeo n 06-07-2023 aPTT Coag (Bld) [Time] 30.6 s Normal 25.1-36.5 Th e [facility] Comment on above: Result Comment: PERF ORMED BY: [place] [address] PATHOLOGIST DIRECTOR [employer]CHITECTURE RADHA CARR M.D. Performed By: #### L IPID, BMP, LDLD, MG, CBCNO #### [address] Platelet mean volume Auto (B ld) [Entitic vol]Ordered By: Mark Anthony Naylor on 06-07-2023 Platelet mean volume (Bld) [Entitic vol] 8.5 fL 6.6-10.1 [facility] Platelets Auto (Bld) [#/Vol] Ordered By: Mark Anthony Naylor on 06-07-2023 Platelets (Bld) [#/Vol] 232 10*3/uL 150-450 [facility] Potassium [Moles/volume] in Serum or PlasmaOrdered By: Mark Anthony Naylor on 06-07-2023 Potassium [Moles/Vol] 4.5 mmol/L 3.5-5.1 [facility] Prothrombin Time INRon 06-07 INR Coag (PPP) [Relative time] 1.0 {INR} Normal [facility] Comment on above: Result Comment: [...] L IPID, BMP, LDLD, MG, CBCNO #### [facility] [address] PT Coag (PPP) [Time] 11.3 s Normal 9.0-12.9 [facility] Comment on above: Performed By: #### L IPID, BMP, LDLD, MG, CBCNO #### [facility] [address] RBC Auto (Bld) [#/Vol]Ordere d By: Mark Anthony Naylor on 06-07-2023 RBC (Bld) [#/Vol] 4.70 10*6/uL 3.90-5.60 [facility] Serum or plasma anion gap de terminationOrdered By: Mark Anthony Naylor on 06-07-2023 Anion gap [Moles/Vol] 15.0 mmol/L 6.0-15.0 [facility] Sodium [Moles/volume] in Ser um or PlasmaOrdered By: Mark Anthony Naylor on 06-07-2023 Sodium [Moles/Vol] 139 mmol/L 136-145 [facility] Urea nitrogen [Mass/volume] in Serum or PlasmaOrdered By: Mark Anthony Naylor on 06-07-2023 Urea nitrogen [Mass/Vol] 16 mg/dL 7-25 [facility] WBC Auto (Bld) [#/Vol]Ordere d By: Mark Anthony Naylor on 06-07-2023 WBC (Bld) [#/Vol] 12.0 10*3/uL 4.1-10.5 [facility] Office Visit (Cardiology)on 04-11-2023 Follow-up visit Diagnoses/Problems [...] in adult Healthy Weight Tips; Status:Complete; Done: [id number] Some eating tips that can help you lose weight.; Status:Complete; Done: [id number] SocHx: Former smoker Tobacco Use Screening; Status:Complete; Done: [id number] Patient Instructions Please bring all medicines, vitamins, [...] ROD MATHIAS is being seen for mpx results/[facility] d/c 02/06. Patient is a 62-year-old gentleman here for follow-up following recent stress testing. He was seen in consultation in the hospital in January, ruled out for DE, had low CATHERINE risk score; has underlying [...] Recorded: 11Apr2023 11:24AM Heart Rate66, L Radial Nkfqvyne012, LUE, Sitting Mymecoqbz85, LUE, Sitting Height5 ft 10.5 in Vgavlj271 lb BMI Jpwqzrdcrh11.4 kg/m2 BSA Calculated2.19 Tobacco Useb) No PHQ-2 [...] Apr 11 2023 12:32PM EST (Author) Normal [facility] Tobacco Screening.on 023 Adult depression screening assessment No [facility] LS9 julianne 250 DO Work Phone: Fall risk assessment a) No falls within the last year [facility] Jingdongy 250 DO Work Phone: Tobacco use status [facility] b) No [facility] julianne 250 DO Work Phone: CT abdomen pelvis wo conon 0 04-04-2023 CT abdomen pelvis wo con [facility] [place] [address] [place] [address] CT Scan Report Signed Patient: Rod Mathias MR#: [id number] : 1960 Acct:[id number] Age/Sex: 62 / M ADM Date: 04/04/23 Loc: [facility] Room: Type: [facility] Attending Dr: Mark Anthony Naylor MD Copies [...] Angelica Bar M.D.04/04/2023 12:03 PM Dictation Location: [place] [address] Transcribed By: [facility] 04/04/23 1203 Dictated By: Angelica Bar MD 04/04/23 1153 Signed By: 04/04/23 1203 Normal [facility] CARDIAC STRESS/REST INJE CTIONon 02-13-2023 [facility] CARDIAC STRESS/REST INJECTION Patient Name: ROD CUELLAR STUDY: MYOCARDIAL PERFUSION STRESS TEST WITH EXERCISE CONVERTED TO LEXISCAN Performing facility: [facility], [address] [place] [address], [address], [address] Provider: [facility] Galicia [facility] PCP: Dr. Zi Hernandez Supervising provider: Joann Hopson MD INDICATION: Chest Pain; Diabetes HTN Hyperlipidemia HISTORY: Gender: M; Age: 62 y/o ; Height: 0 cm; Weight: 0 kg. High Cholesterol; HTN; Diabetes; Chest Pain; Currently smoking. COMPARISON: No comparison. ACCESSION NUMBER(S): [id number]; [id number]; [id number] ORDERING CLINICIAN: DEMARCO GALICIA TECHNIQUE: TWO DAY [...] Electronically signed by: NILO ROACH MD Normal [facility] No Panel Informationon 02-13 Normal [facility] julianne 250 DO Work Phone: Basophils Auto (Bld) [#/Vol] Ordered By: Lilia Bowers on 02-06-2023 Basophils (Bld) [#/Vol] 0.0 10*3/uL 0.0-0.2 [facility] Basophils/100 WBC Auto (Bld) Ordered By: Lilia Bowers on 02-06-2023 Basophils/100 WBC (Bld) 0.5 % . [facility] Calcium [Mass/volume] in Ser um or PlasmaOrdered By: Lilia Bowers on 02-06-2023 Calcium [Mass/Vol] 8.4 mg/dL 8.6-10.3 [facility] Carbon dioxide, total [Moles /volume] in Serum or PlasmaOrdered By: Lilia Bowers on 02-06-2023 CO2 [Moles/Vol] 21.0 mmol/L 21.0-31.0 [facility] Chloride [Moles/volume] in S ayanna or PlasmaOrdered By: Lilia Bowers on 02-06-2023 Chloride [Moles/Vol] 110 mmol/L 98-107 [facility] Cholesterol [Mass/volume] in Serum or PlasmaOrdered By: Lilia Bowers on 02-06-2023 Cholesterol [Mass/Vol] 146 mg/dL 140-200 [facility] Comment on above: Chol less than 200 m g/dl low riskChol 201-239 mg/dl borderline riskChol 240 mg/dl and greater high risk Cholesterol in LDL Calc [Mas s/Vol]Ordered By: Lilia Bowers on 02-06-2023 Cholesterol in LDL [Mass/Vol] 66 mg/dL 0-100 [facility] Comment on above: LDL ATP III CLASSIFI CATIONLDL less than 100 mg/dL OptimalLDL 100-129 mg/dL Near or above optimalLDL 130-159 mg/dL Borderline highLDL 160-189 mg/dL HighLDL greater than 189 mg/dL Very high Cholesterol in VLDL Calc [Ma ss/Vol]Ordered By: Lilia Bowers on 02-06-2023 Cholesterol in VLDL [Mass/Vol] 43 mg/dL [facility] Creatinine [Mass/volume] in Serum or PlasmaOrdered By: Lilia Bowers on 02-06-2023 Creatinine [Mass/Vol] 1.43 mg/dL 0.70-1.30 [facility] Eosinophils Auto (Bld) [#/Vo l]Ordered By: Lilia Bowers on 02-06-2023 Eosinophils (Bld) [#/Vol] 0.1 10*3/uL 0.0-0.45 [facility] Eosinophils/100 WBC Auto (Bl d)Ordered By: Lilia Bowers on 02-06-2023 Eosinophils/100 WBC (Bld) 1.0 % . [facility] Erythrocyte distribution wid th Auto (RBC) [Ratio]Ordered By: Lilia Bowers on 02-06-2023 Erythrocyte distribution width (RBC) [Ratio] 14.0 % 12.0-14.8 [facility] Glucose Glucometer (BldC) [M ass/Vol]Ordered By: Lilia Bowers on 02-06-2023 Glucose [Mass/Vol] 136 mg/dL [facility] Comment on above: Random Glucose Refer ence Range is dependent on time and content of last meal. Glucose of more than 200 mg/dL in a nonstressed, ambulatory subject supports the diagnosis of Diabetes Mellitus. Glucose [Mass/volume] in Ser um or PlasmaOrdered By: Lilia Bowers on 02-06-2023 Glucose [Mass/Vol] 123 mg/dL 70-100 [facility] Comment on above: ADA recommended refe rence rangeRandom Glucose Reference Range is dependent on time and content of last meal. Glucose of more than 200 mg/dL in a nonstressed, ambulatory subject supports the diagnosis of Diabetes Mellitus. Hematocrit Auto (Bld) [Volum e fraction]Ordered By: Lilia Bowers on 02-06-2023 Hematocrit (Bld) [Volume fraction] 40.0 % 38.8-50.0 [facility] Hemoglobin [Mass/volume] in BloodOrdered By: Lilia Bowers on 02-06-2023 Hemoglobin (Bld) [Mass/Vol] 13.3 g/dL 13.0-17.0 [facility] Leukocytes [#/volume] correc desean for nucleated erythrocytes in Blood by Automated counOrdered By: Lilia Bowers on 02-06-2023 WBC corrected for nucl RBC Auto (Bld) [#/Vol] 8.4 10*3/uL 4.1-10.5 [facility] Lymphocytes Auto (Bld) [#/Vo l]Ordered By: Lilia Bowers on 02-06-2023 Lymphocytes (Bld) [#/Vol] 3.4 10*3/uL 1.00-4.8 [facility] Lymphocytes/100 WBC Auto (Bl d)Ordered By: Lilia Boewrs on 02-06-2023 Lymphocytes/100 WBC (Bld) 40.8 % . [facility] MCH Auto (RBC) [Entitic mass ]Ordered By: Lilia Bowers on 02-06-2023 MCH (RBC) [Entitic mass] 30.0 pg 27.5-35.2 [facility] MCHC Auto (RBC) [Mass/Vol]Or dered By: Lilia Bowers on 02-06-2023 MCHC (RBC) [Mass/Vol] 33.3 g/dL 32.5-35.6 [facility] MCV Auto (RBC) [Entitic vol] Ordered By: Lilia Bowers on 02-06-2023 MCV (RBC) [Entitic vol] 90.1 fL 83.5-101 [facility] Monocytes Auto (Bld) [#/Vol] Ordered By: Lilia Bowers on 02-06-2023 Monocytes (Bld) [#/Vol] 0.8 10*3/uL 0.0-0.8 [facility] Monocytes/100 WBC Auto (Bld) Ordered By: Lilia Bowers on 02-06-2023 Monocytes/100 WBC (Bld) 9.0 % . [facility] Neutrophils Auto (Bld) [#/Vo l]Ordered By: Lilia Bowers on 02-06-2023 Neutrophils (Bld) [#/Vol] 4.1 10*3/uL 1.8-7.7 [facility] Neutrophils/100 WBC Auto (Bl d)Ordered By: Lilia Bowers on 02-06-2023 Neutrophils/100 WBC (Bld) 48.7 % . [facility] No Panel InformationOrdered By: Lilia Bowers on 02-06-2023 Bedside Glucose Comment Glu2: cleaned meter [facility] Estimated GFR (CKD-EPI) 54.715 mL/Min [facility] Creatinine Clearance (Chem 63.51 [facility] Nucleated erythrocytes [Pres ence] in Blood by Automated countOrdered By: Lilia Bowers on 02-06-2023 Nucleated RBC Auto Ql (Bld) 0.1 /100{WBC} 0-0.5 [facility] Platelet mean volume Auto (B ld) [Entitic vol]Ordered By: Lilia Bowers on 02-06-2023 Platelet mean volume (Bld) [Entitic vol] 8.2 fL 6.6-10.1 [facility] Platelets Auto (Bld) [#/Vol] Ordered By: Lilia Bowers on 02-06-2023 Platelets (Bld) [#/Vol] 207 10*3/uL 150-450 [facility] Potassium [Moles/volume] in Serum or PlasmaOrdered By: Lilia Bowers on 02-06-2023 Potassium [Moles/Vol] 4.0 mmol/L 3.5-5.1 [facility] RBC Auto (Bld) [#/Vol]Ordere d By: Lilia Bowers on 02-06-2023 RBC (Bld) [#/Vol] 4.44 10*6/uL 3.90-5.60 [facility] Serum or plasma anion gap de terminationOrdered By: Lilia Bowers on 02-06-2023 Anion gap [Moles/Vol] TNP [facility] Comment on above: Test not performed Serum or plasma high density lipoprotein (HDL) cholesterol measurementOrdered By: Lilia Bowers on 02-06-2023 Cholesterol in HDL [Mass/Vol] 36 mg/dL 29-71 [facility] Comment on above: HDL CHOL ATP-III CLA SSIFICATION Cardiovascular RiskHDL > or equal to 60 mg/dL LOWHDL < 40 mg/dL HIGH Serum or plasma total choles terol/high density lipoprotein (HDL) cholesterol mass ratOrdered By: Lilia Bowers on 02-06-2023 Cholesterol.total/Chol esterol in HDL [Mass ratio] 4.1 {ratio} <5.0 [facility] Sodium [Moles/volume] in Ser um or PlasmaOrdered By: Lilia Bowers on 02-06-2023 Sodium [Moles/Vol] 138 mmol/L 136-145 [facility] Triglyceride [Mass/volume] i n Serum or PlasmaOrdered By: Lilia Bowers on 02-06-2023 Triglyceride [Mass/Vol] 218 mg/dL 0-149 [facility] Comment on above: TRIG ATP III CLASSIF [...] <= 0.01 ng/mL [Mass/Vol] 5.6 pg/mL 0.0-20.0 [facility] Urea nitrogen [Mass/volume] in Serum or PlasmaOrdered By: Lilia Bowers on 02-06-2023 Urea nitrogen [Mass/Vol] 15 mg/dL 7-25 [facility] WBC Auto (Bld) [#/Vol]Ordere d By: Lilia Bowers on 02-06-2023 WBC (Bld) [#/Vol] 8.4 10*3/uL 4.1-10.5 [facility] Alanine aminotransferase [En zymatic activity/volume] in Serum or PlasmaOrdered By: Deniz Lacey on 02-05-2023 ALT [Catalytic activity/Vol] 18 U/L 7-52 [facility] Albumin [Mass/volume] in Ser um or Plasma by Bromocresol green (BCG) dye binding methoOrdered By: Deniz Lacey on 02-05-2023 Albumin BCG dye [Mass/Vol] 4.9 g/dL 3.5-5.7 [facility] Alkaline phosphatase [Enzyma tic activity/volume] in Serum or PlasmaOrdered By: Deniz Lacey on 02-05-2023 ALP [Catalytic activity/Vol] 72 U/L 34-104 [facility] Aspartate aminotransferase [ Enzymatic activity/volume] in Serum or PlasmaOrdered By: Deniz Lacey on 02-05-2023 AST [Catalytic activity/Vol] 16 U/L 13-39 [facility] Bilirubin.total [Mass/volume ] in Serum or PlasmaOrdered By: Deniz Lacey on 02-05-2023 Bilirubin [Mass/Vol] 0.9 mg/dL 0.3-1.0 [facility] Creatine kinase [Enzymatic a ctivity/volume] in Serum or PlasmaOrdered By: Deniz Lacey on 02-05-2023 CK [Catalytic activity/Vol] 64 U/L 30-223 [facility] Globulin Calc (S) [Mass/Vol] Ordered By: Deniz Lacey on 02-05-2023 Globulin (S) [Mass/Vol] 3.2 g/dL [facility] Magnesium [Mass/volume] in S ayanna or PlasmaOrdered By: Lilia Bowers on 02-05-2023 Magnesium [Mass/Vol] 1.9 mg/dL 1.9-2.7 [facility] Monocyte distribution width [Entitic volume] in Blood by AutomatedOrdered By: Deniz Lacey on 02-05-2023 Monocyte distribution width Auto (Bld) [Entitic vol] 20.55 % 0.00-20.00 [facility] Comment on above: For adults in ED, MD W > 20.0 may be associated with a higher risk of sepsis during the first 12 hrs of hospital admission Natriuretic peptide B [Mass/ Vol]Ordered By: Deniz Lacey on 02-05-2023 Natriuretic peptide B (Bld) [Mass/Vol] 15.0 pg/mL 5-100 [facility] Protein [Mass/volume] in Ser um or PlasmaOrdered By: Deniz Lacey on 02-05-2023 Protein [Mass/Vol] 8.1 g/dL 6.4-8.9 [facility] Serum or plasma albumin/glob ulin mass ratioOrdered By: Deniz Lacey on 02-05-2023 Albumin/Globulin [Mass ratio] 1.5 {ratio} [facility] XR Spine Lumbar 4+ Views*on [...] by Ganga Olsen on 11/02/2022 1158 Normal [facility] Specialist Glucose mean value [Mass/vol ume] in Blood Estimated from glycated hemoglobinOrdered By: Terell Amor on 10-08-2022 Average glucose Estimated from glycated hemoglobin (Bld) [Mass/Vol] 194 mg/dL [facility] Hemoglobin A1c percentageOrd ered By: Terell Amor on 10-08-2022 HbA1c (Bld) [Mass fraction] 8.4 % 4.3-5.6 [facility] Comment on above: Increased risk for d iabetes: 5.7 - 6.4diabetes: >6.4glycemic control for adults with diabetes: <7.0 Basophils Auto (Bld) [#/Vol] Ordered By: Pam Singh on 10-03-2022 Basophils (Bld) [#/Vol] 0.0 10*3/uL 0.0-0.2 [facility] Basophils/100 WBC Auto (Bld) Ordered By: Pam Singh on 10-03-2022 Basophils/100 WBC (Bld) 0.3 % . [facility] Creatinine and Glomerular fi ltration rate.predicted panel (S/P/Bld)Ordered By: Pam Singh on 10-03-2022 Creatinine [Mass/Vol] 1.48 mg/dL 0.64-1.27 [facility] Eosinophils Auto (Bld) [#/Vo l]Ordered By: Pam Singh on 10-03-2022 Eosinophils (Bld) [#/Vol] 0.2 10*3/uL 0.0-0.45 [facility] Eosinophils/100 WBC Auto (Bl d)Ordered By: Pam Singh on 10-03-2022 Eosinophils/100 WBC (Bld) 1.5 % . [facility] Erythrocyte distribution wid th Auto (RBC) [Ratio]Ordered By: Pam Singh on 10-03-2022 Erythrocyte distribution width (RBC) [Ratio] 14.8 % 12.0-14.8 [facility] Estimated glomerular filtrat ion rate (GFR) non- AmericanOrdered By: Pam Singh on 10-03-2022 GFR/1.73 sq M.predicted among non-blacks MDRD (S/P/Bld) [Vol rate/Area] 48 mL/Min [facility] Glucose Glucometer (BldC) [M ass/Vol]Ordered By: Shaila Bowen on 10-03-2022 Glucose [Mass/Vol] 171 mg/dL [facility] Comment on above: Random Glucose Refer ence Range is dependent on time and content of last meal. Glucose of more than 200 mg/dL in a nonstressed, ambulatory subject supports the diagnosis of Diabetes Mellitus. Hematocrit Auto (Bld) [Volum e fraction]Ordered By: Pam Singh on 10-03-2022 Hematocrit (Bld) [Volume fraction] 42.1 % 38.8-50.0 [facility] Hemoglobin [Mass/volume] in BloodOrdered By: Pam Singh on 10-03-2022 Hemoglobin (Bld) [Mass/Vol] 14.2 g/dL 13.0-17.0 [facility] Leukocytes [#/volume] correc desean for nucleated erythrocytes in Blood by Automated counOrdered By: Pam Singh on 10-03-2022 WBC corrected for nucl RBC Auto (Bld) [#/Vol] 10.1 10*3/uL 4.1-10.5 [facility] Lymphocytes Auto (Bld) [#/Vo l]Ordered By: Pam Singh on 10-03-2022 Lymphocytes (Bld) [#/Vol] 2.9 10*3/uL 1.00-4.8 [facility] Lymphocytes/100 WBC Auto (Bl d)Ordered By: Pam Singh on 10-03-2022 Lymphocytes/100 WBC (Bld) 28.4 % . [facility] MCH Auto (RBC) [Entitic mass ]Ordered By: Pam Singh on 10-03-2022 MCH (RBC) [Entitic mass] 30.3 pg 27.5-35.2 [facility] MCHC Auto (RBC) [Mass/Vol]Or dered By: Pam Singh on 10-03-2022 MCHC (RBC) [Mass/Vol] 33.6 g/dL 32.5-35.6 [facility] MCV Auto (RBC) [Entitic vol] Ordered By: Pam Singh on 10-03-2022 MCV (RBC) [Entitic vol] 90.0 fL 83.5-101 [facility] Monocytes Auto (Bld) [#/Vol] Ordered By: Pam Singh on 10-03-2022 Monocytes (Bld) [#/Vol] 0.9 10*3/uL 0.0-0.8 [facility] Monocytes/100 WBC Auto (Bld) Ordered By: Pam Singh on 10-03-2022 Monocytes/100 WBC (Bld) 8.6 % . [facility] Neutrophils Auto (Bld) [#/Vo l]Ordered By: Pam Singh on 10-03-2022 Neutrophils (Bld) [#/Vol] 6.2 10*3/uL 1.8-7.7 [facility] Neutrophils/100 WBC Auto (Bl d)Ordered By: Pam Singh on 10-03-2022 Neutrophils/100 WBC (Bld) 61.2 % . [facility] No Panel InformationOrdered By: Pam Singh on 10-03-2022 Estimated GFR () 58 mL/Min [facility] Comment on above: GFR estimated refere nce range: According to KDOQI guidelines, <60 ml/min/1.73m2 is sufficient to diagnose a patient with chronic kidney disease. Pharmacy Creatinine Clearance (Chem 61.84 [facility] Nucleated erythrocytes [Pres ence] in Blood by Automated countOrdered By: Pam Singh on 10-03-2022 Nucleated RBC Auto Ql (Bld) 0.2 /100{WBC} 0-0.5 [facility] Platelet mean volume Auto (B ld) [Entitic vol]Ordered By: Pam Singh on 10-03-2022 Platelet mean volume (Bld) [Entitic vol] 8.5 fL 6.6-10.1 [facility] Platelets Auto (Bld) [#/Vol] Ordered By: Pam Singh on 10-03-2022 Platelets (Bld) [#/Vol] 249 10*3/uL 150-450 [facility] RBC Auto (Bld) [#/Vol]Ordere d By: Pam Singh on 10-03-2022 RBC (Bld) [#/Vol] 4.68 10*6/uL 3.90-5.60 [facility] Serum or plasma anion gap de terminationOrdered By: Pam Singh on 10-03-2022 Anion gap [Moles/Vol] 10.8 mmol/L 6.0-15.0 [facility] Serum or plasma calcium lucius urement (mass/volume)Ordered By: Pam Singh on 10-03-2022 Calcium [Mass/Vol] 9.2 mg/dL 8.2-10.2 [facility] Serum or plasma chloride shira surement (moles/volume)Ordered By: Pam iSngh on 10-03-2022 Chloride [Moles/Vol] 108 mmol/L 95-114 [facility] Serum or plasma glucose lucius urement (mass/volume)Ordered By: Pam Singh on 10-03-2022 Glucose [Mass/Vol] 152 mg/dL 70-100 [facility] Comment on above: ADA recommended refe rence rangeRandom Glucose Reference Range is dependent on time and content of last meal. Glucose of more than 200 mg/dL in a nonstressed, ambulatory subject supports the diagnosis of Diabetes Mellitus. Serum or plasma potassium me asurement (moles/volume)Ordered By: Pam Singh on 10-03-2022 Potassium [Moles/Vol] 4.0 mmol/L 3.5-5.1 [facility] Serum or plasma sodium measu rement (moles/volume)Ordered By: Pam Singh on 10-03-2022 Sodium [Moles/Vol] 136 mmol/L 136-146 [facility] Serum or plasma total carbon dioxide measurement (moles/volume)Ordered By: Pam Singh on 10-03-2022 CO2 [Moles/Vol] 21.2 mmol/L 22.0-30.0 [facility] Serum or plasma urea nitroge n measurement (mass/volume)Ordered By: Pam Singh on 10-03-2022 Urea nitrogen [Mass/Vol] 23 mg/dL 9-23 [facility] Urine culture routineOrdered By: Spike Estrada on 10-03-2022 Bacteria identified Cx Nom (U) No Growth 2 Days [facility] WBC Auto (Bld) [#/Vol]Ordere d By: Pam Singh on 10-03-2022 WBC (Bld) [#/Vol] 10.1 10*3/uL 4.1-10.5 [facility] Cholesterol [Mass/volume] in Serum or PlasmaOrdered By: Pam Singh on 10-02-2022 Cholesterol [Mass/Vol] 156 mg/dL 140-200 [facility] Comment on above: Chol less than 200 m g/dl low riskChol 201-239 mg/dl borderline riskChol 240 mg/dl and greater high risk Cholesterol in LDL Calc [Mas s/Vol]Ordered By: Pam Singh on 10-02-2022 Cholesterol in LDL [Mass/Vol] 78 mg/dL 0-100 [facility] Comment on above: LDL ATP III CLASSIFI CATIONLDL less than 100 mg/dL OptimalLDL 100-129 mg/dL Near or above optimalLDL 130-159 mg/dL Borderline highLDL 160-189 mg/dL HighLDL greater than 189 mg/dL Very high Cholesterol in VLDL Calc [Ma ss/Vol]Ordered By: Pma Singh on 10-02-2022 Cholesterol in VLDL [Mass/Vol] 37 mg/dL [facility] Glucose Glucometer (BldC) [M ass/Vol]Ordered By: Shaila Bowen on 10-02-2022 Glucose [Mass/Vol] 122 mg/dL [facility] Comment on above: Random Glucose Refer ence Range is dependent on time and content of last meal. Glucose of more than 200 mg/dL in a nonstressed, ambulatory subject supports the diagnosis of Diabetes Mellitus. Serum or plasma high density lipoprotein (HDL) cholesterol measurementOrdered By: Pam Singh on 10-02-2022 Cholesterol in HDL [Mass/Vol] 41 mg/dL 29-71 [facility] Comment on above: HDL CHOL ATP-III CLA SSIFICATION Cardiovascular RiskHDL > or equal to 60 mg/dL LOWHDL < 40 mg/dL HIGH Serum or plasma total choles terol/high density lipoprotein (HDL) cholesterol mass ratOrdered By: Pam Singh on 10-02-2022 Cholesterol.total/Chol esterol in HDL [Mass ratio] 3.8 {ratio} <5.0 [facility] Triglyceride [Mass/volume] i n Serum or PlasmaOrdered By: Pam Singh on 10-02-2022 Triglyceride [Mass/Vol] 187 mg/dL 35-149 [facility] Comment on above: TRIG ATP III CLASSIF [...] High sensitivity method [Mass/Vol] 6 pg/mL 0-20 [facility] Amphetamine Screen Ql (U)Ord ered By: Spike Estrada on 10-01-2022 Amphetamines Ql (U) Negative Negative [facility] Automated erythrocytes count in urine sediment (number/area)Ordered By: Spike Estrada on 10-01-2022 RBC Auto (Urine sed) [#/Area] None seen [HPF] 0-4 [facility] Automated leukocytes count i n urine sediment (number/area)Ordered By: Spike Estrada on 10-01-2022 WBC Auto (Urine sed) [#/Area] 0-1 [HPF] 0-4 [facility] Barbiturates [Presence] in U rineOrdered By: Spike Estrada on 10-01-2022 Barbiturates Ql (U) Negative Negative [facility] Basophils Auto (Bld) [#/Vol] Ordered By: Spike Estrada on 10-01-2022 Basophils (Bld) [#/Vol] 0.1 10*3/uL 0.0-0.2 [facility] Basophils/100 WBC Auto (Bld) Ordered By: Spike Estrada on 10-01-2022 Basophils/100 WBC (Bld) 0.6 % . [facility] Benzodiazepines [Presence] i n UrineOrdered By: Spike Estrada on 10-01-2022 Benzodiazepines Ql (U) Positive Negative [facility] Bilirubin Test strip Ql (U)O rdered By: Spike Estrada on 10-01-2022 Bilirubin Ql (U) Negative Negative [facility] Body fluid albumin measureme nt (mass/volume)Ordered By: Spike Estrada on 10-01-2022 Albumin (Body fld) [Mass/Vol] 4.3 g/dL 3.2-5.5 [facility] COVID CepheidOrdered By: oLrna Estrada on 10-01-2022 SARS-CoV-2 (COVID-19) Ab IA Ql Negative Negative [facility] Comment on above: This is a duplicate [employer] Xpert Xpress CoV-2/Flu/RSV Plus RNA by RT-PCR result to be used for statistical tracking purpose only. SARS-CoV-2 (COVID-19) RNA ANGÉLICA+probe Ql (Unsp spec) [facility] SARS-CoV-2 (COVID-19) RNA ANGÉLICA+probe Ql (Unsp spec) [facility] Cannabinoids [Presence] in U rine by Screen methodOrdered By: Spike Estrada on 10-01-2022 Cannabinoids Screen Ql (U) Negative Negative [facility] Comment on above: These are unconfirme d results and should not be used for legal purposes. Drug Cut-Off Concentration: AMPH 1000 ng/mL CAMI 200 ng/mL AAMIR 200 ng/mL COCM 300 ng/mL OP 300 ng/mL PCP 25 ng/mL THC 20 ng/mL Color Auto (U)Ordered By: Meir Estrada on 10-01-2022 Color (U) Yellow Yellow [facility] Creatinine and Glomerular fi ltration rate.predicted panel (S/P/Bld)Ordered By: Spike Estrada on 10-01-2022 Creatinine [Mass/Vol] 1.56 mg/dL 0.64-1.27 [facility] Eosinophils Auto (Bld) [#/Vo l]Ordered By: Spike Estrada on 10-01-2022 Eosinophils (Bld) [#/Vol] 0.1 10*3/uL 0.0-0.45 [facility] Eosinophils/100 WBC Auto (Bl d)Ordered By: Spike Estrada on 10-01-2022 Eosinophils/100 WBC (Bld) 0.4 % . [facility] Erythrocyte distribution wid th Auto (RBC) [Ratio]Ordered By: Spike Estrada on 10-01-2022 Erythrocyte distribution width (RBC) [Ratio] 15.2 % 12.0-14.8 [facility] Estimated glomerular filtrat ion rate (GFR) non- AmericanOrdered By: Spike Estrada on 10-01-2022 GFR/1.73 sq M.predicted among non-blacks MDRD (S/P/Bld) [Vol rate/Area] 45 mL/Min [facility] Folate [Mass/volume] in Seru m or PlasmaOrdered By: Shaila Bowen on 10-01-2022 Folate [Mass/Vol] ng/mL >5.9 [facility] Comment on above: Folate reference ran ge: >5.9 ng/mlThe WHO technical consultation on folate and vitamin [id number] has determined that folate concentrations lessthan 4 ng/ml are considered deficient. Globulin Calc (S) [Mass/Vol] Ordered By: Spike Estrada on 10-01-2022 Globulin (S) [Mass/Vol] 4.4 g/dL [facility] Hematocrit Auto (Bld) [Volum e fraction]Ordered By: Spike Estrada on 10-01-2022 Hematocrit (Bld) [Volume fraction] 44.6 % 38.8-50.0 [facility] Hemoglobin [Mass/volume] in BloodOrdered By: Spike Estrada on 10-01-2022 Hemoglobin (Bld) [Mass/Vol] 14.6 g/dL 13.0-17.0 [facility] Ketones Auto test strip (U) [Mass/Vol]Ordered By: Spike Estrada on 10-01-2022 Ketones (U) [Mass/Vol] Negative Negative Fi [facility] Laboratory - Chemistry and C hemistry - challengeOrdered By: Shaila Bowen on 10-01-2022 Cobalamin (Vitamin B12) [Mass/Vol] 358 pg/mL 180-914 [facility] Laboratory - Drug toxicology Ordered By: Spike Estrada on 10-01-2022 Opiates Ql (U) Positive Negative [facility] Laboratory - UrinalysisOrder ed By: Spike Estrada on 10-01-2022 Hyaline casts LM Ql (Urine sed) 0-8 [LPF] 0-8 [facility] Leukocytes [#/volume] correc desean for nucleated erythrocytes in Blood by Automated counOrdered By: Spike Estrada on 10-01-2022 WBC corrected for nucl RBC Auto (Bld) [#/Vol] 11.3 10*3/uL 4.1-10.5 [facility] Lymphocytes Auto (Bld) [#/Vo l]Ordered By: Spike Estrada on 10-01-2022 Lymphocytes (Bld) [#/Vol] 2.2 10*3/uL 1.00-4.8 [facility] Lymphocytes/100 WBC Auto (Bl d)Ordered By: Spike Estrada on 10-01-2022 Lymphocytes/100 WBC (Bld) 19.6 % . [facility] MCH Auto (RBC) [Entitic mass ]Ordered By: Spike Estrada on 10-01-2022 MCH (RBC) [Entitic mass] 29.7 pg 27.5-35.2 [facility] MCHC Auto (RBC) [Mass/Vol]Or dered By: Spike Estrada on 10-01-2022 MCHC (RBC) [Mass/Vol] 32.7 g/dL 32.5-35.6 [facility] MCV Auto (RBC) [Entitic vol] Ordered By: Spike Estrada on 10-01-2022 MCV (RBC) [Entitic vol] 90.8 fL 83.5-101 [facility] Monocyte distribution width [Entitic volume] in Blood by AutomatedOrdered By: Spike Estrada on 10-01-2022 Monocyte distribution width Auto (Bld) [Entitic vol] 20.76 % 0.00-20.00 [facility] Comment on above: For adults in ED, MD W > 20.0 may be associated with a higher risk of sepsis during the first 12 hrs of hospital admission Monocytes Auto (Bld) [#/Vol] Ordered By: Spike Estrada on 10-01-2022 Monocytes (Bld) [#/Vol] 0.6 10*3/uL 0.0-0.8 [facility] Monocytes/100 WBC Auto (Bld) Ordered By: Spike Estrada on 10-01-2022 Monocytes/100 WBC (Bld) 5.4 % . [facility] Neutrophils Auto (Bld) [#/Vo l]Ordered By: Spike Estrada on 10-01-2022 Neutrophils (Bld) [#/Vol] 8.3 10*3/uL 1.8-7.7 [facility] Neutrophils/100 WBC Auto (Bl d)Ordered By: Spike Estrada on 10-01-2022 Neutrophils/100 WBC (Bld) 74.0 % . [facility] Nitrite Test strip Ql (U)Ord ered By: Spike Estrada on 10-01-2022 Nitrite Ql (U) Negative Negative [facility] No Panel InformationOrdered By: Spike Estrada on 10-01-2022 Estimated GFR () 54 mL/Min [facility] Comment on above: GFR estimated refere nce range: According to KDOQI guidelines, <60 ml/min/1.73m2 is sufficient to diagnose a patient with chronic kidney disease. Pharmacy Creatinine Clearance (Chem N/A [facility] Bedside Glucose Comment Glu2: cleaned meter [facility] Nucleated erythrocytes [Pres ence] in Blood by Automated countOrdered By: Spike Estrada on 10-01-2022 Nucleated RBC Auto Ql (Bld) 0.1 /100{WBC} 0-0.5 [facility] Phencyclidine Screen Ql (U)O rdered By: Spike Estrada on 10-01-2022 Phencyclidine Ql (U) Negative Negative [facility] Platelet mean volume Auto (B ld) [Entitic vol]Ordered By: Spike Estrada on 10-01-2022 Platelet mean volume (Bld) [Entitic vol] 8.2 fL 6.6-10.1 [facility] Platelets Auto (Bld) [#/Vol] Ordered By: Spike Estrada on 10-01-2022 Platelets (Bld) [#/Vol] 285 10*3/uL 150-450 [facility] Protein Auto test strip (U) [Mass/Vol]Ordered By: Spike Estrada on 10-01-2022 Protein (U) [Mass/Vol] Trace mg/dL Negative [facility] Protein [Mass/volume] in Ser um or PlasmaOrdered By: Spike Estrada on 10-01-2022 Protein [Mass/Vol] 8.7 g/dL 6.1-7.9 [facility] RBC Auto (Bld) [#/Vol]Ordere d By: Spike Estrada on 10-01-2022 RBC (Bld) [#/Vol] 4.91 10*6/uL 3.90-5.60 [facility] Serum or plasma alanine padilla otransferase measurement without P-5'-P (enzymatic activiOrdered By: Spike Estrada on 10-01-2022 ALT No additional P-5'-P [Catalytic activity/Vol] 27 U/L 10-60 [facility] Serum or plasma albumin/glob ulin mass ratioOrdered By: Spike Estrada on 10-01-2022 Albumin/Globulin [Mass ratio] 1.0 {ratio} [facility] Serum or plasma alkaline setfani sphatase measurement (enzymatic activity/volume)Ordered By: Spike Estrada on 10-01-2022 ALP [Catalytic activity/Vol] 87 U/L 32-92 [facility] Serum or plasma anion gap de terminationOrdered By: Spike Estrada on 10-01-2022 Anion gap [Moles/Vol] 15.0 mmol/L 6.0-15.0 [facility] Serum or plasma aspartate am inotransferase measurement (enzymatic activity/volume)Ordered By: Spike Estrada on 10-01-2022 AST [Catalytic activity/Vol] 21 U/L 10-42 [facility] Serum or plasma calcium lucius urement (mass/volume)Ordered By: Spike Estrada on 10-01-2022 Calcium [Mass/Vol] 10.0 mg/dL 8.2-10.2 [facility] Serum or plasma chloride shira surement (moles/volume)Ordered By: Spike Estrada on 10-01-2022 Chloride [Moles/Vol] 104 mmol/L 95-114 [facility] Serum or plasma ethanol lucius urement (mass/volume)Ordered By: Spike Estrada on 10-01-2022 Ethanol [Mass/Vol] mg/dL [facility] Ethanol [Mass/Vol] TNP [facility] Comment on above: Test not performed Serum or plasma glucose lucius urement (mass/volume)Ordered By: Spike Estrada on 10-01-2022 Glucose [Mass/Vol] 152 mg/dL 70-100 [facility] Comment on above: ADA recommended refe rence rangeRandom Glucose Reference Range is dependent on time and content of last meal. Glucose of more than 200 mg/dL in a nonstressed, ambulatory subject supports the diagnosis of Diabetes Mellitus. Serum or plasma potassium me asurement (moles/volume)Ordered By: Spike Estrada on 10-01-2022 Potassium [Moles/Vol] 4.4 mmol/L 3.5-5.1 [facility] Serum or plasma sodium measu rement (moles/volume)Ordered By: Spike Estrada on 10-01-2022 Sodium [Moles/Vol] 136 mmol/L 136-146 [facility] Serum or plasma total biliru bin measurement (mass/volume)Ordered By: Spike Estrada on 10-01-2022 Bilirubin [Mass/Vol] 0.8 mg/dL 0.3-1.2 [facility] Serum or plasma total carbon dioxide measurement (moles/volume)Ordered By: Spike Estrada on 10-01-2022 CO2 [Moles/Vol] 21.4 mmol/L 22.0-30.0 [facility] Serum or plasma urea nitroge n measurement (mass/volume)Ordered By: Spike Estrada on 10-01-2022 Urea nitrogen [Mass/Vol] 22 mg/dL 9- [facility] Specific gravity Auto test s trip (U) [Rel density]Ordered By: Spike Estrada on 10-01-2022 Specific gravity (U) [Rel density] 1.026 1.001-1.030 [facility] Squamous epithelial cells de tection in urine sediment by light microscopyOrdered By: Spike Estrada on 10-01-2022 Epithelial cells.squamous LM Ql (Urine sed) None seen [HPF] 0-2 [facility] TSH DL <= 0.005 mIU/L QnOrde red By: Shaila Bowen on 10-01-2022 TSH Qn 0.91 m[IU]/L 0.45-5.33 [facility] Troponin I.cardiac [Mass/vol ume] in Serum or Plasma by High sensitivity methodOrdered By: Pam Singh on 10-01-2022 Troponin I.cardiac High sensitivity method [Mass/Vol] 5 pg/mL 0-20 [facility] Urine bacteria detection by automated methodOrdered By: Spike Estrada on 10-01-2022 Bacteria Auto Ql (U) None seen None Seen [facility] Urine clarity by refractomet ry automatedOrdered By: Spike Estrada on 10-01-2022 Clarity Refractometry automated (U) Clear Clear [facility] Urine cocaine detectionOrder ed By: Spike Estrada on 10-01-2022 Cocaine Ql (U) Negative Negative [facility] Urine culture routineOrdered By: Spike Estrada on 10-01-2022 Bacteria identified Cx Nom (U) No Growth 2 Days [facility] Urine glucose measurement by automated test strip (mass/volume)Ordered By: Spike Estrada on 10-01-2022 Glucose Auto test strip (U) [Mass/Vol] >=1000 mg/dL Normal [facility] Urine hemoglobin detection b y automated test stripOrdered By: Spike Estrada on 10-01-2022 Hemoglobin Auto test strip Ql (U) Negative Negative [facility] Urine leukocyte esterase det ection by automated test stripOrdered By: Spike Estrada on 10-01-2022 Leukocyte esterase Auto test strip Ql (U) Negative Negative [facility] Urobilinogen Auto test strip (U) [Mass/Vol]Ordered By: Spike Estrada on 10-01-2022 Urobilinogen (U) [Mass/Vol] Normal mg/dL Normal [facility] WBC Auto (Bld) [#/Vol]Ordere d By: Spike Estrada on 10-01-2022 WBC (Bld) [#/Vol] 11.3 10*3/uL 4.1-10.5 [facility] pH Auto test strip (U)Ordere d By: Spike Estrada on 10-01-2022 pH (U) 5.5 [pH] 5.0-9.0 [facility] Glucose Glucometer (BldC) [M ass/Vol]Ordered By: Zheng Iraheta on 07-26-2022 Glucose [Mass/Vol] 135 mg/dL [facility] Comment on above: Random Glucose Refer ence Range is dependent on time and content of last meal. Glucose of more than 200 mg/dL in a nonstressed, ambulatory subject supports the diagnosis of Diabetes Mellitus. No Panel InformationOrdered By: Zheng Iraheta on 07-26-2022 Bedside Glucose Comment Glu2: cleaned meter [facility] COVID-19 Positive/NegativeOr dered By: Zheng Iraheta on 07-24-2022 SARS-CoV-2 (COVID-19) N gene ANGÉLICA+probe Ql (Resp) Negative Negative [facility] Comment on above: Testing for SARS-CoV -2 by RT-PCRThis test was developed and its performance characteristics determined by [employer] ([employer]) and validated at the [facility]. This test has not been FDA cleared [...] 07-12-2022 Basophils (Bld) [#/Vol] 0.1 10*3/uL 0.0-0.2 [facility] Basophils/100 WBC Auto (Bld) Ordered By: Zheng Iraheta on 07-12-2022 Basophils/100 WBC (Bld) 0.5 % . [facility] Blood hemoglobin measurement (mass/volume)Ordered By: Zheng Iraheta on 07-12-2022 Hemoglobin (Bld) [Mass/Vol] 14.3 g/dL 13.0-17.0 [facility] Blood leukocytes automated c ount (number/volume)Ordered By: Zheng Iraheta on 07-12-2022 WBC (Bld) [#/Vol] 11.4 10*3/uL 4.5-11.0 [facility] Creatinine and Glomerular fi ltration rate.predicted panel (S/P/Bld)Ordered By: Zheng Iraheta on 07-12-2022 Creatinine [Mass/Vol] 1.56 mg/dL 0.64-1.27 [facility] Eosinophils Auto (Bld) [#/Vo l]Ordered By: Zheng Iraheta on 07-12-2022 Eosinophils (Bld) [#/Vol] 0.1 10*3/uL 0.0-0.45 [facility] Eosinophils/100 WBC Auto (Bl d)Ordered By: Zheng Iraheta on 07-12-2022 Eosinophils/100 WBC (Bld) 1.1 % . [facility] Erythrocyte distribution wid th Auto (RBC) [Ratio]Ordered By: Zheng Iraheta on 07-12-2022 Erythrocyte distribution width (RBC) [Ratio] 14.5 % 12.0-14.8 [facility] Estimated glomerular filtrat ion rate (GFR) non- AmericanOrdered By: Zheng Iraheta on 07-12-2022 GFR/1.73 sq M.predicted among non-blacks MDRD (S/P/Bld) [Vol rate/Area] 45 mL/Min [facility] Hematocrit Auto (Bld) [Volum e fraction]Ordered By: Zheng Iraheta on 07-12-2022 Hematocrit (Bld) [Volume fraction] 43.4 % 38.8-50.0 [facility] Laboratory - Hematology and Cell countsOrdered By: Zheng Iraheta on 07-12-2022 Nucleated RBC/100 WBC (Bld) [Ratio] 0.1 % 0-0.5 [facility] Lymphocytes Auto (Bld) [#/Vo l]Ordered By: Zheng Iraheta on 07-12-2022 Lymphocytes (Bld) [#/Vol] 2.6 10*3/uL 1.00-4.8 [facility] Lymphocytes/100 WBC Auto (Bl d)Ordered By: Zheng Iraheta on 07-12-2022 Lymphocytes/100 WBC (Bld) 22.9 % . [facility] MCH Auto (RBC) [Entitic mass ]Ordered By: Zheng Iraheta on 07-12-2022 MCH (RBC) [Entitic mass] 30.1 pg 27.5-35.2 [facility] MCHC Auto (RBC) [Mass/Vol]Or dered By: Zheng Iraheta on 07-12-2022 MCHC (RBC) [Mass/Vol] 33.0 g/dL 32.5-35.6 [facility] MCV Auto (RBC) [Entitic vol] Ordered By: Zheng Iraheta on 07-12-2022 MCV (RBC) [Entitic vol] 91.1 fL 83.5-101 [facility] Monocytes Auto (Bld) [#/Vol] Ordered By: Zheng Iraheta on 07-12-2022 Monocytes (Bld) [#/Vol] 0.9 10*3/uL 0.0-0.8 [facility] Monocytes/100 WBC Auto (Bld) Ordered By: Zheng Iraheta on 07-12-2022 Monocytes/100 WBC (Bld) 8.0 % . [facility] Neutrophils Auto (Bld) [#/Vo l]Ordered By: Zheng Iraheta on 07-12-2022 Neutrophils (Bld) [#/Vol] 7.7 10*3/uL 1.8-7.7 [facility] Neutrophils/100 WBC Auto (Bl d)Ordered By: Zheng Iraheta on 07-12-2022 Neutrophils/100 WBC (Bld) 67.5 % . [facility] No Panel InformationOrdered By: Zheng Iraheta on 07-12-2022 Estimated GFR () 55 mL/Min [facility] Comment on above: GFR estimated refere nce range: According to KDOQI guidelines, <60 ml/min/1.73m2 is sufficient to diagnose a patient with chronic kidney disease. Pharmacy Creatinine Clearance (Chem N/A [facility] Platelet mean volume Auto (B ld) [Entitic vol]Ordered By: Zheng Iraheta on 07-12-2022 Platelet mean volume (Bld) [Entitic vol] 8.4 fL 6.6-10.1 [facility] Platelets Auto (Bld) [#/Vol] Ordered By: Zheng Iraheta on 07-12-2022 Platelets (Bld) [#/Vol] 314 10*3/uL 150-450 [facility] RBC Auto (Bld) [#/Vol]Ordere d By: Zheng Iraheta on 07-12-2022 RBC (Bld) [#/Vol] 4.76 10*6/uL 3.90-5.60 [facility] Serum or plasma anion gap de terminationOrdered By: Zheng Iraheta on 07-12-2022 Anion gap [Moles/Vol] 15.8 mmol/L 6.0-15.0 [facility] Serum or plasma calcium lucius urement (mass/volume)Ordered By: Zheng Iraheta on 07-12-2022 Calcium [Mass/Vol] 10.0 mg/dL 8.2-10.2 [facility] Serum or plasma chloride shira surement (moles/volume)Ordered By: Zheng Iraheta on 07-12-2022 Chloride [Moles/Vol] 106 mmol/L 95-114 [facility] Serum or plasma glucose lucius urement (mass/volume)Ordered By: Zheng Iraheta on 07-12-2022 Glucose [Mass/Vol] 120 mg/dL 70-100 [facility] Comment on above: ADA recommended refe rence [...] on 07-12-2022 Potassium [Moles/Vol] 5.5 mmol/L 3.5-5.1 [facility] Serum or plasma sodium measu rement (moles/volume)Ordered By: Zheng Iraheta on 07-12-2022 Sodium [Moles/Vol] 139 mmol/L 136-146 [facility] Serum or plasma total carbon dioxide measurement (moles/volume)Ordered By: Zheng Iraheta on 07-12-2022 CO2 [Moles/Vol] 22.7 mmol/L 22.0-30.0 [facility] Serum or plasma urea nitroge n measurement (mass/volume)Ordered By: Zheng Iraheta on 07-12-2022 Urea nitrogen [Mass/Vol] 21 mg/dL 9-23 [facility] Glucose Glucometer (BldC) [M ass/Vol]Ordered By: Mark Anthony Naylor on 06-15-2022 Glucose [Mass/Vol] 121 mg/dL [facility] Comment on above: Random Glucose Refer ence Range is dependent on time and content of last meal. Glucose of more than 200 mg/dL in a nonstressed, ambulatory subject supports the diagnosis of Diabetes Mellitus. No Panel InformationOrdered By: Mark Anthony Naylor on 06-15-2022 Bedside Glucose Comment Glu2: cleaned meter [facility] COVID-19 Positive/NegativeOr dered By: Mark Anthonymarquise Naylor on 06-13-2022 SARS-CoV-2 (COVID-19) N gene ANGÉLICA+probe Ql (Resp) Negative Negative [facility] Comment on above: Testing for SARS-CoV -2 by RT-PCR This test was developed and its performance characteristics determined by [employer] ([employer]) and validated at the [facility]. This test has not been FDA cleared [...] developed and its performance characteristics determined by [employer] ([employer]) and validated at the [facility]. This test has not been FDA cleared [...] [M ass/Vol]Ordered By: Mark Anthony Naylor on 05-24-2022 Glucose [Mass/Vol] 128 mg/dL [facility] Comment on above: Random Glucose Refer ence Range is dependent on time and content of last meal. Glucose of more than 200 mg/dL in a nonstressed, ambulatory subject supports the diagnosis of Diabetes Mellitus. COVID-19 Positive/NegativeOr dered By: Mark Anthony Naylor on 05-22-2022 SARS-CoV-2 (COVID-19) N gene ANGÉLICA+probe Ql (Resp) Negative Negative [facility] Comment on above: Testing for SARS-CoV -2 by RT-PCR This test was developed and its performance characteristics determined by [employer] ([employer]) and validated at the [facility]. This test has not been FDA cleared [...] developed and its performance characteristics determined by [employer] ([employer]) and validated at the [facility]. This test has not been FDA cleared [...] on 05-19-2022 Albumin [Mass/Vol] 4.1 g/dL 3.2-5.5 [facility] Automated epithelial cells c ount in urine sediment (number/area)Ordered By: César Arreaga on 05-19-2022 Epithelial cells Auto (Urine sed) [#/Area] 1-2 [HPF] 0-2 [facility] Automated erythrocytes count in urine sediment (number/area)Ordered By: César Arreaga on 05-19-2022 RBC Auto (Urine sed) [#/Area] 3-4 [HPF] 0-4 [facility] Automated leukocytes count i n urine sediment (number/area)Ordered By: César Arreaga on 05-19-2022 WBC Auto (Urine sed) [#/Area] None seen [HPF] 0-4 [facility] Basophils Auto (Bld) [#/Vol] Ordered By: César Arreaga on 05-19-2022 Basophils (Bld) [#/Vol] 0.1 10*3/uL 0.0-0.2 [facility] Basophils/100 WBC Auto (Bld) Ordered By: César Arreaga on 05-19-2022 Basophils/100 WBC (Bld) 0.5 % . [facility] Bilirubin Auto test strip Ql (U)Ordered By: César Arreaga on 05-19-2022 Bilirubin Ql (U) Negative Negative [facility] Blood hemoglobin measurement (mass/volume)Ordered By: César Arreaga on 05-19-2022 Hemoglobin (Bld) [Mass/Vol] 14.2 g/dL 13.0-17.0 [facility] Blood leukocytes automated c ount (number/volume)Ordered By: César Arreaga on 05-19-2022 WBC (Bld) [#/Vol] 10.4 10*3/uL 4.5-11.0 [facility] Creatinine and Glomerular fi ltration rate.predicted panel (S/P/Bld)Ordered By: César Arreaga on 05-19-2022 Creatinine [Mass/Vol] 1.62 mg/dL 0.64-1.27 [facility] Eosinophils Auto (Bld) [#/Vo l]Ordered By: César Arreaga on 05-19-2022 Eosinophils (Bld) [#/Vol] 0.1 10*3/uL 0.0-0.45 [facility] Eosinophils/100 WBC Auto (Bl d)Ordered By: César Arreaga on 05-19-2022 Eosinophils/100 WBC (Bld) 1.3 % . [facility] Erythrocyte distribution wid th Auto (RBC) [Ratio]Ordered By: César Arreaga on 05-19-2022 Erythrocyte distribution width (RBC) [Ratio] 15.2 % 12.0-14.8 [facility] Estimated glomerular filtrat ion rate (GFR) non- AmericanOrdered By: César Arreaga on 05-19-2022 GFR/1.73 sq M.predicted among non-blacks MDRD (S/P/Bld) [Vol rate/Area] 43 mL/Min [facility] Globulin Calc (S) [Mass/Vol] Ordered By: César Arreaga on 05-19-2022 Globulin (S) [Mass/Vol] 3.2 g/dL [facility] Hematocrit Auto (Bld) [Volum e fraction]Ordered By: César Arreaga on 05-19-2022 Hematocrit (Bld) [Volume fraction] 42.6 % 38.8-50.0 [facility] Ketones Auto test strip (U) [Mass/Vol]Ordered By: César Arreaga on 05-19-2022 Ketones (U) [Mass/Vol] Trace Negative [facility] and Cell countsOrdered By: César Arreaga on 05-19-2022 Nucleated RBC/100 WBC (Bld) [Ratio] 0.0 % 0-0.5 [facility] Lymphocytes Auto (Bld) [#/Vo l]Ordered By: César Arreaga on 05-19-2022 Lymphocytes (Bld) [#/Vol] 4.3 10*3/uL 1.00-4.8 [facility] Lymphocytes/100 WBC Auto (Bl d)Ordered By: César Arreaga on 05-19-2022 Lymphocytes/100 WBC (Bld) 40.8 % . [facility] MCH Auto (RBC) [Entitic mass ]Ordered By: César Arreaga on 05-19-2022 MCH (RBC) [Entitic mass] 30.4 pg 27.5-35.2 [facility] MCHC Auto (RBC) [Mass/Vol]Or dered By: César Arreaga on 05-19-2022 MCHC (RBC) [Mass/Vol] 33.3 g/dL 32.5-35.6 [facility] MCV Auto (RBC) [Entitic vol] Ordered By: César Arreaga on 05-19-2022 MCV (RBC) [Entitic vol] 91.3 fL 83.5-101 [facility] Monocytes Auto (Bld) [#/Vol] Ordered By: César Arreaga on 05-19-2022 Monocytes (Bld) [#/Vol] 0.8 10*3/uL 0.0-0.8 [facility] Monocytes/100 WBC Auto (Bld) Ordered By: César Arreaga on 05-19-2022 Monocytes/100 WBC (Bld) 7.8 % . [facility] Neutrophils Auto (Bld) [#/Vo l]Ordered By: César Arreaga on 05-19-2022 Neutrophils (Bld) [#/Vol] 5.2 10*3/uL 1.8-7.7 [facility] Neutrophils/100 WBC Auto (Bl d)Ordered By: César Arreaga on 05-19-2022 Neutrophils/100 WBC (Bld) 49.6 % . [facility] No Panel InformationOrdered By: César Arreaga on 05-19-2022 Estimated GFR () 52 mL/Min [facility] Comment on above: GFR estimated refere nce range: According to KDOQI guidelines, <60 ml/min/1.73m2 is sufficient to diagnose a patient with chronic kidney disease. Pharmacy Creatinine Clearance (Chem 55.27 [facility] Platelet mean volume Auto (B ld) [Entitic vol]Ordered By: César Arreaga on 05-19-2022 Platelet mean volume (Bld) [Entitic vol] 8.3 fL 6.6-10.1 [facility] Platelets Auto (Bld) [#/Vol] Ordered By: César Arreaga on 05-19-2022 Platelets (Bld) [#/Vol] 287 10*3/uL 150-450 [facility] Protein Auto test strip (U) [Mass/Vol]Ordered By: César Arreaga on 05-19-2022 Protein (U) [Mass/Vol] Trace mg/dL Negative [facility] [facility] Protein [Mass/volume] in Ser um or PlasmaOrdered By: César Arreaga on 05-19-2022 Protein [Mass/Vol] 7.3 g/dL 6.1-7.9 [facility] RBC Auto (Bld) [#/Vol]Ordere d By: César Arreaga on 05-19-2022 RBC (Bld) [#/Vol] 4.66 10*6/uL 3.90-5.60 [facility] Serum or plasma alanine padilla otransferase measurement without P-5'-P (enzymatic activiOrdered By: César Arreaga on 05-19-2022 ALT No additional P-5'-P [Catalytic activity/Vol] 23 U/L 10-60 [facility] Serum or plasma albumin/glob ulin mass ratioOrdered By: César Arreaga on 05-19-2022 Albumin/Globulin [Mass ratio] 1.3 {ratio} [facility] Serum or plasma alkaline stefani sphatase measurement (enzymatic activity/volume)Ordered By: César Arreaga on 05-19-2022 ALP [Catalytic activity/Vol] 80 U/L 32-92 [facility] Serum or plasma aspartate am inotransferase measurement (enzymatic activity/volume)Ordered By: César Arreaga on 05-19-2022 AST [Catalytic activity/Vol] 22 U/L 10-42 [facility] Serum or plasma calcium lucius urement (mass/volume)Ordered By: César Arreaga on 05-19-2022 Calcium [Mass/Vol] 9.6 mg/dL 8.2-10.2 [facility] Serum or plasma chloride shira surement (moles/volume)Ordered By: César Arreaga on 05-19-2022 Chloride [Moles/Vol] 102 mmol/L 95-114 [facility] Serum or plasma glucose lucius urement (mass/volume)Ordered By: César Arreaga on 05-19-2022 Glucose [Mass/Vol] 150 mg/dL 70-100 [facility] Comment on above: ADA recommended refe rence [...] on 05-19-2022 Potassium [Moles/Vol] 3.7 mmol/L 3.5-5.1 [facility] Serum or plasma sodium measu rement (moles/volume)Ordered By: César Arreaga on 05-19-2022 Sodium [Moles/Vol] 139 mmol/L 136-146 [facility] Serum or plasma total biliru bin measurement (mass/volume)Ordered By: César Arreaga on 05-19-2022 Bilirubin [Mass/Vol] 0.8 mg/dL 0.3-1.2 [facility] Serum or plasma total carbon dioxide measurement (moles/volume)Ordered By: César Arreaga on 05-19-2022 CO2 [Moles/Vol] 22.8 mmol/L 22.0-30.0 [facility] Serum or plasma urea nitroge n measurement (mass/volume)Ordered By: César Arreaga on 05-19-2022 Urea nitrogen [Mass/Vol] 17 mg/dL 9-23 [facility] Urine appearanceOrdered By: César Arreaga on 05-19-2022 Appearance (U) Clear Clear [facility] Urine bacteria detection by automated methodOrdered By: César Arreaga on 05-19-2022 Bacteria Auto Ql (U) Rare None Seen [facility] Urine colorOrdered By: César Arreaga on 05-19-2022 Color (U) Yellow Yellow [facility] Urine glucose measurement by automated test strip (mass/volume)Ordered By: César Arreaga on 05-19-2022 Glucose Auto test strip (U) [Mass/Vol] >=1000 mg/dL Normal [facility] Urine hemoglobin detection b y automated test stripOrdered By: César Arreaga on 05-19-2022 Hemoglobin Auto test strip Ql (U) 2+ Negative [facility] Urine leukocyte esterase det ection by automated test stripOrdered By: César Arreaga on 05-19-2022 Leukocyte esterase Auto test strip Ql (U) Negative Negative [facility] Urine nitrite detection by a utomated test stripOrdered By: César Arreaga on 05-19-2022 Nitrite Auto test strip Ql (U) Negative Negative [facility] Urobilinogen Auto test strip (U) [Mass/Vol]Ordered By: César Arreaga on 05-19-2022 Urobilinogen (U) [Mass/Vol] Normal mg/dL Normal [facility] pH Auto test strip (U)Ordere d By: César Arreaga on 05-19-2022 pH (U) 1.025 [pH] 1.001-1.030 [facility] pH (U) 5.5 [pH] 5.0-9.0 [facility] Automated erythrocytes count in urine sediment (number/area)Ordered By: Terell Amor on 05-07-2022 RBC Auto (Urine sed) [#/Area] 0-1 [HPF] 0-4 [facility] Automated leukocytes count i n urine sediment (number/area)Ordered By: Terell Amor on 05-07-2022 WBC Auto (Urine sed) [#/Area] 0-1 [HPF] 0-4 [facility] Basophils Auto (Bld) [#/Vol] Ordered By: Terell Amor on 05-07-2022 Basophils (Bld) [#/Vol] 0.0 10*3/uL 0.0-0.2 [facility] Basophils/100 WBC Auto (Bld) Ordered By: Terell Amor on 05-07-2022 Basophils/100 WBC (Bld) 0.3 % . [facility] Bilirubin Test strip Ql (U)O rdered By: Terell Amor on 05-07-2022 Bilirubin Ql (U) Negative Negative [facility] Blood hemoglobin measurement (mass/volume)Ordered By: Terell Amor on 05-07-2022 Hemoglobin (Bld) [Mass/Vol] 14.3 g/dL 13.0-17.0 [facility] Blood leukocytes automated c ount (number/volume)Ordered By: Terell Amor on 05-07-2022 WBC (Bld) [#/Vol] 12.1 10*3/uL 4.5-11.0 [facility] Color Auto (U)Ordered By: Valeriano Amor on 05-07-2022 Color (U) Yellow Yellow [facility] Creatinine and Glomerular fi ltration rate.predicted panel (S/P/Bld)Ordered By: Terell Amor on 05-07-2022 Creatinine [Mass/Vol] 1.50 mg/dL 0.64-1.27 [facility] Eosinophils Auto (Bld) [#/Vo l]Ordered By: Terell Amor on 05-07-2022 Eosinophils (Bld) [#/Vol] 0.1 10*3/uL 0.0-0.45 [facility] Eosinophils/100 WBC Auto (Bl d)Ordered By: Terell Amor on 05-07-2022 Eosinophils/100 WBC (Bld) 0.5 % . [facility] Erythrocyte distribution wid th Auto (RBC) [Ratio]Ordered By: Terell Amor on 05-07-2022 Erythrocyte distribution width (RBC) [Ratio] 15.1 % 12.0-14.8 [facility] Estimated glomerular filtrat ion rate (GFR) non- AmericanOrdered By: Terell Amor on 05-07-2022 GFR/1.73 sq M.predicted among non-blacks MDRD (S/P/Bld) [Vol rate/Area] 47 mL/Min [facility] Glucose mean value [Mass/vol ume] in Blood Estimated from glycated hemoglobinOrdered By: Terell Amor on 05-07-2022 Average glucose Estimated from glycated hemoglobin (Bld) [Mass/Vol] 154 mg/dL [facility] Hematocrit Auto (Bld) [Volum e fraction]Ordered By: Terell Amor on 05-07-2022 Hematocrit (Bld) [Volume fraction] 44.1 % 38.8-50.0 [facility] Hemoglobin A1c percentageOrd ered By: Terell Amor on 05-07-2022 HbA1c (Bld) [Mass fraction] 7.0 % 4.3-5.6 [facility] Comment on above: Increased risk for d iabetes: 5.7 - 6.4 diabetes: >6.4 glycemic control for adults with diabetes: <7.0 Increased risk for d iabetes: 5.7 - 6.4diabetes: >6.4glycemic control for adults with diabetes: <7.0 Ketones Auto test strip (U) [Mass/Vol]Ordered By: Terell Amor on 05-07-2022 Ketones (U) [Mass/Vol] 1+ Negative [facility] Laboratory - Hematology and Cell countsOrdered By: Terell Amor on 05-07-2022 Nucleated RBC/100 WBC (Bld) [Ratio] 0.1 % 0-0.5 [facility] Laboratory - UrinalysisOrder ed By: Terell Amor on 05-07-2022 Hyaline casts LM Ql (Urine sed) 0-8 [LPF] 0-8 [facility] Lymphocytes Auto (Bld) [#/Vo l]Ordered By: Terell Amor on 05-07-2022 Lymphocytes (Bld) [#/Vol] 2.5 10*3/uL 1.00-4.8 [facility] Lymphocytes/100 WBC Auto (Bl d)Ordered By: Terell Amor on 05-07-2022 Lymphocytes/100 WBC (Bld) 20.6 % . [facility] MCH Auto (RBC) [Entitic mass ]Ordered By: Terell Amor on 05-07-2022 MCH (RBC) [Entitic mass] 29.8 pg 27.5-35.2 [facility] MCHC Auto (RBC) [Mass/Vol]Or dered By: Terell Amor on 05-07-2022 MCHC (RBC) [Mass/Vol] 32.5 g/dL 32.5-35.6 [facility] MCV Auto (RBC) [Entitic vol] Ordered By: Terell Amor on 05-07-2022 MCV (RBC) [Entitic vol] 91.6 fL 83.5-101 [facility] Monocytes Auto (Bld) [#/Vol] Ordered By: Terell Amor on 05-07-2022 Monocytes (Bld) [#/Vol] 0.9 10*3/uL 0.0-0.8 [facility] Monocytes/100 WBC Auto (Bld) Ordered By: Terell Amor on 05-07-2022 Monocytes/100 WBC (Bld) 7.4 % . [facility] Neutrophils Auto (Bld) [#/Vo l]Ordered By: Terell Amor on 05-07-2022 Neutrophils (Bld) [#/Vol] 8.6 10*3/uL 1.8-7.7 [facility] Neutrophils/100 WBC Auto (Bl d)Ordered By: Terell Amor on 05-07-2022 Neutrophils/100 WBC (Bld) 71.2 % . [facility] Nitrite Test strip Ql (U)Ord ered By: Terell Amor on 05-07-2022 Nitrite Ql (U) Negative Negative [facility] No Panel InformationOrdered By: Terell Amor on 05-07-2022 Estimated GFR () 57 mL/Min [facility] Comment on above: GFR estimated refere nce range: According to KDOQI guidelines, <60 ml/min/1.73m2 is sufficient to diagnose a patient with chronic kidney disease. Pharmacy Creatinine Clearance (Chem N/A [facility] Platelet mean volume Auto (B ld) [Entitic vol]Ordered By: Terell Amor on 05-07-2022 Platelet mean volume (Bld) [Entitic vol] 8.9 fL 6.6-10.1 [facility] Platelets Auto (Bld) [#/Vol] Ordered By: Terell Amor on 05-07-2022 Platelets (Bld) [#/Vol] 233 10*3/uL 150-450 [facility] Protein Auto test strip (U) [Mass/Vol]Ordered By: Terell Amor on 05-07-2022 Protein (U) [Mass/Vol] 30 mg/dL Negative [facility] RBC Auto (Bld) [#/Vol]Ordere d By: Terell Amor on 05-07-2022 RBC (Bld) [#/Vol] 4.81 10*6/uL 3.90-5.60 [facility] Serum or plasma calcium lucius urement (mass/volume)Ordered By: Terell Amor on 05-07-2022 Calcium [Mass/Vol] 9.7 mg/dL 8.2-10.2 [facility] Serum or plasma chloride shira surement (moles/volume)Ordered By: Terell Amor on 05-07-2022 Chloride [Moles/Vol] 104 mmol/L 95-114 [facility] Serum or plasma glucose lucius urement (mass/volume)Ordered By: Terell Amor on 05-07-2022 Glucose [Mass/Vol] 99 mg/dL 70-100 [facility] Comment on above: ADA recommended refe rence [...] on 05-07-2022 Potassium [Moles/Vol] 4.5 mmol/L 3.5-5.1 [facility] Serum or plasma sodium measu rement (moles/volume)Ordered By: Terell Amor on 05-07-2022 Sodium [Moles/Vol] 134 mmol/L 136-146 [facility] Serum or plasma total carbon dioxide measurement (moles/volume)Ordered By: Terell Amor on 05-07-2022 CO2 [Moles/Vol] 17.6 mmol/L 22.0-30.0 [facility] Serum or plasma urea nitroge n measurement (mass/volume)Ordered By: Terell Amor on 05-07-2022 Urea nitrogen [Mass/Vol] 19 mg/dL 9-23 [facility] Specific gravity Auto test s trip (U) [Rel density]Ordered By: Terell Amor on 05-07-2022 Specific gravity (U) [Rel density] 1.027 1.001-1.030 [facility] Squamous epithelial cells de tection in urine sediment by light microscopyOrdered By: Terell Amor on 05-07-2022 Epithelial cells.squamous LM Ql (Urine sed) None seen [HPF] 0-2 [facility] Urine bacteria detection by automated methodOrdered By: Terell Amor on 05-07-2022 Bacteria Auto Ql (U) None seen None Seen [facility] Urine clarity by refractomet ry automatedOrdered By: Terell Amor on 05-07-2022 Clarity Refractometry automated (U) Clear Clear [facility] Urine glucose measurement by automated test strip (mass/volume)Ordered By: Terell Amor on 05-07-2022 Glucose Auto test strip (U) [Mass/Vol] >=1000 mg/dL Normal [facility] Urine hemoglobin detection b y automated test stripOrdered By: Terell Amor on 05-07-2022 Hemoglobin Auto test strip Ql (U) Negative Negative [facility] Urine leukocyte esterase det ection by automated test stripOrdered By: Terell Amor on 05-07-2022 Leukocyte esterase Auto test strip Ql (U) Negative Negative [facility] Urobilinogen Auto test strip (U) [Mass/Vol]Ordered By: Terell Amor on 05-07-2022 Urobilinogen (U) [Mass/Vol] Normal mg/dL Normal [facility] pH Auto test strip (U)Ordere d By: Terell Amor on 05-07-2022 pH (U) 5.0 [pH] 5.0-9.0 [facility] MRI HIP LT WO CONon 08-30-20 21 [...] on the right seen on the large bwgin-me-xdro STIR images. No paralabral cyst is evident. [...] by: DENIZ FAN Date: 2021-08-30 14:51 Normal [facility] XR ARTHRO HIP LT EXPon 08-30 XR [...] by: ALFREDO LEWIS Date: 2021-08-30 08:29 Normal [facility] Vital Signs Date Time Vital Sign Value Performing Clinician Facility 07-24-2023 11:45-0400 Diastolic blood pressure 86 mm[Hg] MD Ganga Hernandez Work Phone: [facility] 07-24-2023 11:45-0400 Heart rate 65 /min MD Ganga Hernandez Work Phone: [facility] 07-24-2023 11:45-0400 Respiratory rate 20 /min MD Ganga Hernandez Work Phone: [facility] 07-24-2023 11:45-0400 SaO2% (BldA) [Mass fraction] 97 % MD Ganga Hernandez Work Phone: [facility] 07-24-2023 11:45-0400 Systolic blood pressure 147 mm[Hg] MD Ganga Hernandez Work Phone: [facility] 07-24-2023 08:17-0400 Body height 177.8 cm MD Ganga Hernandez Work Phone: [facility] 07-24-2023 08:17-0400 Body temperature 97.2 [degF] MD Ganga Hernandez Work Phone: [facility] 07-24-2023 08:17-0400 Body weight 106.8 kg MD Ganga Hernandez Work Phone: [facility] 07-13-2023 15:13-0400 Body temperature 97.8 [degF] MD Ganga Hernandez Work Phone: [facility] 07-13-2023 15:13-0400 Diastolic blood pressure 83 mm[Hg] MD Ganga Hernandez Work Phone: [facility] 07-13-2023 15:13-0400 Heart rate 77 /min MD Ganga Hernandez Work Phone: [facility] 07-13-2023 15:13-0400 Respiratory rate 16 /min MD Ganga Hernandez Work Phone: [facility] 07-13-2023 15:13-0400 SaO2% (BldA) [Mass fraction] 95 % MD Ganga Hernandez Work Phone: [facility] 07-13-2023 15:13-0400 Systolic blood pressure 132 mm[Hg] MD Ganga Hernandez Work Phone: [facility] 07-12-2023 11:15-0400 Body height 180.34 cm MD Ganga Hernandez Work Phone: [facility] 07-12-2023 05:57-0400 Body weight 106.5 kg MD Ganga Hernandez Work Phone: [facility] 06-07-2023 13:17-0400 Body height 180.34 cm MD Ganga Hernandez Work Phone: [facility] 06-07-2023 13:17-0400 Body temperature 98.5 [degF] MD Ganga Hernandez Work Phone: [facility] 06-07-2023 13:17-0400 Body weight 106 kg MD Ganga Hernandez Work Phone: [facility] 06-07-2023 13:17-0400 Diastolic blood pressure 81 mm[Hg] MD Ganga Hernandez Work Phone: [facility] 06-07-2023 13:17-0400 Heart rate 72 /min MD Ganga Hernandze Work Phone: [facility] 06-07-2023 13:17-0400 SaO2% (BldA) [Mass fraction] 99 % MD Ganga Hernandez Work Phone: [facility] 06-07-2023 13:17-0400 Systolic blood pressure 132 mm[Hg] MD Ganga Hernandez Work Phone: [facility] 04-11-2023 11:24-0400 Body height 179.07 cm Ganga Guzman Edil Work Phone: [facility] [address] DO Work Phone: 04-11-2023 11:24-0400 Body mass index (BMI) [Ratio] 31.4 kg/m2 Ganga Guzman Edil Work Phone: [facility] 250 DO Work Phone: 04-11-2023 11:24-0400 Body surface area Derived from formula 2.19 m2 Ganga Guzman Edil Work Phone: [facility] 250 DO Work Phone: 04-11-2023 11:24-0400 Body weight 100.7 kg Ganga Hernandez Work Phone: [facility] 250 DO Work Phone: 04-11-2023 11:24-0400 Diastolic blood pressure 72 mm[Hg] Ganga Guzman Edil Work Phone: [facility] 250 DO Work Phone: 04-11-2023 11:24-0400 Heart rate 66 /min Ganga Guzman Edil Work Phone: [facility] [facility] DO Work Phone: 04-11-2023 11:24-0400 Systolic blood pressure 122 mm[Hg] Ganga Hernandez Work Phone: [facility] DO Work Phone: 02-06-2023 16:00-0400 Diastolic blood pressure 77 mm[Hg] MD Ganga Hernandez Work Phone: [facility] 02-06-2023 16:00-0400 Heart rate 71 /min MD Ganga Hernandez Work Phone: [facility] 02-06-2023 16:00-0400 Respiratory rate 18 /min MD Ganga Hernandez Work Phone: [facility] 02-06-2023 16:00-0400 SaO2% (BldA) [Mass fraction] 94 % MD Ganga Hernandez Work Phone: [facility] 02-06-2023 16:00-0400 Systolic blood pressure 131 mm[Hg] MD Ganga Hernandez Work Phone: [facility] 02-06-2023 11:44-0400 Body temperature 98.1 [degF] MD Ganga Hernandez Work Phone: [facility] 02-06-2023 03:28-0400 Body weight 105.6 kg MD Ganga Hernandez Work Phone: [facility] 02-05-2023 21:02-0400 Body height 177.8 cm MD Ganga Hernandez Work Phone: [facility] 10-11-2022 16:00-0500 Body height 180.34 cm Brandon Castañeda Other [employer] [facility] [employer] Other 10-11-2022 16:00-0500 Body mass index (BMI) [Ratio] 33.05 kg/m2 Brandon Castañeda Other [employer] Other 10-11-2022 16:00-0500 Body weight 107.5 kg Brandon Castañeda Other [employer] Other 10-11-2022 16:00-0500 Diastolic blood pressure 70 mm[Hg] Brandon Castañeda Other [employer] Other 10-11-2022 16:00-0500 SaO2% (BldA) [Mass fraction] 96 % Brandon Castañeda Other [facility] [employer] Other 10-11-2022 16:00-0500 Systolic blood pressure 132 mm[Hg] Brandon Castañeda Other [facility] [employer] Other 10-08-2022 10:33-0500 Body height 180.34 cm MD Ganga Hernandez Work Phone: [facility] 10-08-2022 10:33-0500 Body weight 108.3 kg MD Ganga Hernandez Work Phone: [facility] 10-08-2022 10:33-0500 Diastolic blood pressure 75 mm[Hg] MD Ganga Hernandez Work Phone: [facility] 10-08-2022 10:33-0500 Heart rate 68 /min MD Ganga Hernandez Work Phone: [facility] 10-08-2022 10:33-0500 Respiratory rate 18 /min MD Ganga Hernandez Work Phone: [facility] 10-08-2022 10:33-0500 SaO2% (BldA) [Mass fraction] 96 % MD Ganga Hernandez Work Phone: [facility] 10-08-2022 10:33-0500 Systolic blood pressure 123 mm[Hg] MD Ganga Hernandez Work Phone: [facility] 10-03-2022 19:57-0500 Body temperature 97.8 [degF] MD Ganga Hernandez Work Phone: [facility] 10-03-2022 19:57-0500 Diastolic blood pressure 90 mm[Hg] MD Ganga Hernandez Work Phone: [facility] 10-03-2022 19:57-0500 Heart rate 76 /min MD Ganga Hernandez Work Phone: [facility] 10-03-2022 19:57-0500 Respiratory rate 16 /min MD Ganga Hernandez Work Phone: [facility] 10-03-2022 19:57-0500 SaO2% (BldA) [Mass fraction] 98 % MD Ganga Hernandez Work Phone: [facility] 10-03-2022 19:57-0500 Systolic blood pressure 159 mm[Hg] MD Ganga Hernandez Work Phone: [facility] 10-03-2022 05:44-0500 Body weight 103.8 kg MD Ganga Hernandez Work Phone: [facility] 10-02-2022 15:59-0500 Body height 180.34 cm MD Ganga Hernandez Work Phone: [facility] 10-02-2022 01:52-0500 Body height 180.34 cm MD Ganga Hernandez Work Phone: [facility] 10-02-2022 01:52-0500 Body temperature 97.6 [degF] MD Ganga Hernandez Work Phone: [facility] 10-02-2022 01:52-0500 Body weight 105.9 kg MD Ganga Hernandez Work Phone: [facility] 10-02-2022 01:52-0500 Diastolic blood pressure 89 mm[Hg] MD Ganga Hernandez Work Phone: [facility] 10-02-2022 01:52-0500 Heart rate 77 /min MD Ganga Hernandez Work Phone: [facility] 10-02-2022 01:52-0500 Respiratory rate 16 /min MD Ganga Hernandez Work Phone: [facility] 10-02-2022 01:52-0500 SaO2% (BldA) [Mass fraction] 98 % MD Ganga Hernandez Work Phone: [facility] 10-02-2022 01:52-0500 Systolic blood pressure 169 mm[Hg] MD Ganga Hernandez Work Phone: [facility] 08-29-2022 14:00-0500 Body height 180.34 cm Brandon Castañeda Other [employer] Other 08-29-2022 14:00-0500 Body mass index (BMI) [Ratio] 32.35 kg/m2 Brandon Castañeda Other [employer] Other 08-29-2022 14:00-0500 Body weight 105.24 kg Brandon Castañeda Other [employer] Other 08-29-2022 14:00-0500 Diastolic blood pressure 70 mm[Hg] Brandon Castañeda Other [employer] Other 08-29-2022 14:00-0500 SaO2% (BldA) [Mass fraction] 98 % Brandon Castañeda Other [employer] Other 08-29-2022 14:00-0500 Systolic blood pressure 110 mm[Hg] Brandon Castañeda Other [employer] Other 07-26-2022 12:25-0400 Diastolic blood pressure 85 mm[Hg] [facility] Work Phone: [facility] 07-26-2022 12:25-0400 Heart rate 79 /min [facility] Work Phone: [facility] 07-26-2022 12:25-0400 Respiratory rate 14 /min [facility] Work Phone: [facility] 07-26-2022 12:25-0400 SaO2% (BldA) [Mass fraction] 95 % [facility] Work Phone: [facility] 07-26-2022 12:25-0400 Systolic blood pressure 139 mm[Hg] [facility] Work Phone: [facility] 07-26-2022 10:54-0400 Body temperature 97.9 [degF] [facility] Work Phone: [facility] 07-26-2022 10:54-0400 Inhaled oxygen flow rate 10 L/min [facility] Work Phone: [facility] 07-26-2022 08:34-0400 Body height 180.34 cm [facility] Work Phone: [facility] 07-26-2022 08:34-0400 Body mass index (BMI) [Ratio] 30.7 kg/m2 [facility] Work Phone: [facility] 07-26-2022 08:34-0400 Body weight 99.79 kg [facility] Work Phone: [facility] 06-15-2022 15:15-0400 Diastolic blood pressure 75 mm[Hg] [facility] Work Phone: [facility] 06-15-2022 15:15-0400 Heart rate 82 /min [facility] Work Phone: [facility] 06-15-2022 15:15-0400 Respiratory rate 20 /min [facility] Work Phone: [facility] 06-15-2022 15:15-0400 SaO2% (BldA) [Mass fraction] 95 % [facility] Work Phone: [facility] 06-15-2022 15:15-0400 Systolic blood pressure 115 mm[Hg] [facility] Work Phone: [facility] 06-15-2022 14:49-0400 Body height 177.8 cm [facility] Work Phone: [facility] 06-15-2022 14:49-0400 Body mass index (BMI) [Ratio] 31.5 kg/m2 [facility] Work Phone: [facility] 06-15-2022 14:49-0400 Body weight 99.79 kg [facility] Work Phone: [facility] 06-15-2022 14:45-0400 Inhaled oxygen flow rate 8 L/min [facility] Work Phone: [facility] 06-15-2022 11:59-0400 Body temperature 98.1 [degF] [facility] Work Phone: [facility] 06-08-2022 10:20-0400 Body height 180.34 cm Mart Henry Other [employer] Other 06-08-2022 10:20-0400 Body mass index (BMI) [Ratio] 33.89 kg/m2 Mart Henry Other [employer] Other 06-08-2022 10:20-0400 Body weight 110.22 kg Mart Henry Other [employer] Other 05-24-2022 13:38-0400 Diastolic blood pressure 80 mm[Hg] [facility] Work Phone: [facility] 05-24-2022 13:38-0400 Heart rate 70 /min [facility] [employer] Work Phone: [facility] 05-24-2022 13:38-0400 Respiratory rate 16 /min [facility] [employer] Work Phone: [facility] 05-24-2022 13:38-0400 SaO2% (BldA) [Mass fraction] 95 % [facility] [employer] Work Phone: [facility] 05-24-2022 13:38-0400 Systolic blood pressure 130 mm[Hg] [facility] [employer] Work Phone: [facility] 05-24-2022 12:27-0400 Body height 182.88 cm [facility] [employer] Work Phone: [facility] 05-24-2022 12:27-0400 Body mass index (BMI) [Ratio] 30.2 kg/m2 [facility] [employer] Work Phone: [facility] 05-24-2022 12:27-0400 Body weight 101 kg [facility] Work Phone: [facility] 05-24-2022 10:23-0400 Body temperature 98.3 [degF] [facility] Work Phone: [facility] 05-22-2022 11:10-0400 Blood Pressure Location Mark Anthony NAYLOR [facility] 05-22-2022 11:10-0400 Diastolic blood pressure 81 mm[Hg] Mark Anthony NAYLOR [facility] 05-22-2022 11:10-0400 Heart rate 71 /min [facility] 05-22-2022 11:10-0400 Systolic blood pressure 141 mm[Hg] Mark Anthony NAYLOR [facility] 05-19-2022 09:14-0400 Diastolic blood pressure 70 mm[Hg] Services [employer] Work Phone: [facility] 05-19-2022 09:14-0400 Heart rate 66 /min Services [facility] Work Phone: [facility] 05-19-2022 09:14-0400 Respiratory rate 18 /min [facility] Work Phone: [facility] 05-19-2022 09:14-0400 SaO2% (BldA) [Mass fraction] 95 % Services [facility] Work Phone: [facility] 05-19-2022 09:14-0400 Systolic blood pressure 136 mm[Hg] Services [facility] Work Phone: [facility] 05-19-2022 07:28-0400 Body height 177.8 cm [facility] Work Phone: [facility] 05-19-2022 07:28-0400 Body weight 99.79 kg Services [facility] Work Phone: [facility] 05-19-2022 07:27-0400 Body temperature 97.5 [degF] Services [facility] Work Phone: [facility] 04-19-2022 11:40-0400 Body height 180.34 cm Mart Henry Other [employer] Other 04-19-2022 11:40-0400 Body mass index (BMI) [Ratio] 33.94 kg/m2 Mart Henry Other [employer] Other 04-19-2022 11:40-0400 Body weight 110.41 kg Mart Henry Other [employer] Other 09-26-2021 15:40-0500 Body height 180.34 cm Mart Henry Other [employer] Other 09-26-2021 15:40-0500 Body mass index (BMI) [Ratio] 33.47 kg/m2 Mart Henry Other [employer] Other 09-26-2021 15:40-0500 Body weight 108.86 kg Mart Henry Other [employer] Other 09-26-2021 15:40-0500 Diastolic blood pressure 68 mm[Hg] Mart Henry Other [employer] Other 09-26-2021 15:40-0500 Systolic blood pressure 129 mm[Hg] Mart Henry Other [employer] Other Encounters Encounter Date Encounter Type Care Provider Facility Start: 07-02-2024 ambulatory Norris VINCENT Facili ty:[id number] Start: 06-17-2024 End: 06-17-2024 ambulatory ANUJ HAWK Not Available Start: 06-05-2024 End: 06-05-2024 ambulatory Norris VINCENT Facility:[id number] Start: 03-04-2024 End: 03-04-2024 ambulatory GANGA HERNANDEZ Not Available Start: 02-20-2024 End: 02-20-2024 ambulatory GANGA HERNANDEZ Not Available Start: 11-11-2023 End: 11-11-2023 ambulatory GANGA HERNANDEZ Not Available Start: 07-24-2023 End: 07-24-2023 Emergency department patient visit Jose Hernandez Facility:[facility] Start: 07-24-2023 End: 07-24-2023 Emergency department patient visit MD Ganga Hernandez Work Phone: [facility]-Emergency Room Work Phone: Start: 07-11-[address] Ganga Hernandez Facility:[id number] Start: 07-11-2023 End: 07-13-2023 ambulatory Shaila Bowen Facility:[facility] Start: 07-11-2023 End: 07-13-2023 Evaluation and management of inpatient MD Ganga Hernandez Work Phone: [facility]-[address] [place] [address] Surgical Work Phone: Start: 07-11-2023 End: 07-13-2023 observation encounter MD Ganga Hernandez Work Phone: [facility] Ctr Work Phone: Start: 06-21-2023 End: 06-21-2023 ambulatory MD Ganga Hernandez Work Phone: [facility] Work Phone: Start: 06-21-2023 End: 06-21-2023 Departed Referred MD Ganga Hernandez Work Phone: [facility]-Surgery [facility] [place] Start: 06-21-2023 ambulatory Mark Anthony NAYLOR Facility :[facility] Start: 06-07-2023 End: 06-07-2023 ambulatory Mark Anthonymarquise Naylor Facility:[facility] Start: 06-07-2023 End: 06-07-2023 Patient encounter procedure MD Ganga Hernandez Work Phone: [facility] Ylb-Oyc-Prgbbzig Testing Work Phone: Start: 04-11-2023 Office outpatient vi sit 15 minutes Ganga Hernandez Work Phone: [facility]-[place] 250 DO Work Phone: Start: 04-11-[address] Demarco Galicia Facility: Start: 04-04-2023 End: 04-04-2023 ambulatory Mark Anthony Naylor Facility:[facility] Start: 04-04-2023 End: 04-04-2023 ambulatory MD Ganga Hernandez Work Phone: [facility] Ctr Work Phone: Start: 04-04-2023 End: 04-04-2023 Patient encounter procedure MD Ganga Hernandez Work Phone: [facility] Ctr-[address] Work Phone: Start: 02-15-2023 Chart Update Ganga Hernandez Work Phone: [facility] 250 DO Work Phone: Start: 02-14-2023 ambulatory DEMARCO GALICIA Facilit y:[id number] Start: 02-13-2023 ambulatory DEMARCO GALCIIA Facilit y:[id number] Start: 02-08-2023 Telephone encounter Demarco magallon DO Work Phone: [facility] 250 DO Work Phone: Start: 02-06-[address] Ganga Hernandez Facility:[id number] Start: 02-05-2023 End: 02-06-2023 Evaluation and management of inpatient MD Ganga Hernandez Work Phone: [facility]-[address] [place] [facility] Work Phone: Start: 12-12-2022 End: 12-12-2022 ambulatory MD Ganga Hernandez Work Phone: [facility] Work Phone: Start: 12-12-2022 End: 12-12-2022 Patient encounter procedure MD Ganga Hernandez Work Phone: [facility]-Ultrasound [place] Work Phone: Start: 10-25-2022 End: 10-25-2022 ambulatory MD Ganga Hernandez Work Phone: [facility] Work Phone: Start: 10-25-2022 End: 10-25-2022 Departed Referred MD Ganga Hernandez Work Phone: [facility]-Surgery [facility] [place] Start: 10-11-2022 End: 10-11-2022 ambulatory Brandon Castañeda Other [employer] Other Start: 10-11-2022 Office outpatient vi sit 25 minutes Brandon Castañeda [facility] Start: 10-08-2022 End: 10-08-2022 ambulatory MD Ganga Hernandez Work Phone: [facility] Work Phone: Start: 10-08-2022 End: 10-08-2022 Patient encounter procedure MD Ganga Hernandez Work Phone: [facility] Ggp-Scp-Xkeldsos Testing Start: 10-01-[address] Ganga Hernandez Facilit y:[id number] Start: 10-01-2022 End: 10-03-2022 Evaluation and management of inpatient MD Ganga Hernandez Work Phone: [facility] Start: 08-30-2022 End: 08-30-2022 ambulatory Brandon Castañeda Other [employer] Other Start: 08-30-2022 Telephone encounter Brandon Castañeda [facility] Start: 08-29-2022 End: 08-29-2022 ambulatory Brandon Castañeda Other [facility] [employer] Other Start: 08-29-2022 Office consultation new/estab patient 60 min Brandon Castañeda [facility] Start: 07-26-2022 End: 07-26-2022 Admission to same day surgery center [facility] [employer] Work Phone: [facility]-Surgery [facility] [place] Start: 07-26-2022 End: 07-26-2022 ambulatory [facility] Work Phone: [facility] Work Phone: Start: 07-24-2022 End: 07-24-2022 ambulatory [facility] Work Phone: [facility] Work Phone: Start: 07-24-2022 End: 07-24-2022 Patient encounter procedure [facility] Work Phone: [facility] Tjt-Jen-Xmgcbyfa Testing Start: 07-12-2022 End: 07-12-2022 Patient encounter procedure [facility] Work Phone: [facility] Hlv-Aap-Etbloudh Testing Start: 06-15-2022 End: 06-15-2022 Admission to same day surgery center Services [employer] Phone: [facility]-Surgery [facility] Start: 06-13-2022 End: 06-13-2022 Patient encounter procedure [facility] Work Phone: [facility] Lod-Irg-Fwghlqcr Testing Start: 06-08-2022 End: 06-08-2022 ambulatory Mart Henry Other [employer] Other Start: 06-08-2022 Office outpatient vi sit 15 minutes Mart Henry [facility] Neurosurgery Start: 06-04-2022 End: 06-04-2022 Patient encounter procedure [facility] Work Phone: [facility] Ctr-XRay [place] Start: 05-24-2022 End: 08-04-2022 Admission to same day surgery center [facility] Work Phone: [facility]-Surgery [facility] [place] Start: 05-22-2022 End: 05-22-2022 Patient encounter procedure Services [employer] Phone: [facility]-Pre-Surgical Testing Start: 05-22-2022 End: 05-22-2022 Patient encounter procedure Mark Anthony Mateusz KUMAR [facility] Start: 05-21-2022 End: 05-21-2022 Patient encounter procedure [facility] [employer] [place] [facility] Start: 05-19-2022 End: 05-19-2022 Emergency department patient visit Services [employer] Phone: [facility]-Emergency Room Start: 05-07-2022 End: 05-07-2022 Patient encounter procedure Services [employer] Phone: [facility]-Pre-Surgical Testing Start: 05-02-2022 End: 05-02-2022 Patient encounter procedure Services [employer] Phone: [facility]-MRI [address] Start: 04-19-2022 End: 04-19-2022 ambulatory Mart Henry Other [employer] Other Start: 04-19-2022 Office outpatient vi sit 15 minutes Mart Henry [facility] Start: 04-19-2022 End: 04-19-2022 Patient encounter procedure [facility] [employer] [place] [facility] Start: 09-26-2021 End: 09-26-2021 ambulatory Mart Henry Other [employer] Other Start: 09-26-2021 Office outpatient vi sit 15 minutes Mart Henry [facility] Neurosurgery Start: 08-29-2021 End: 08-29-[address] ALFREDO LEWIS Facility:H1 Cardiovascular stres s test abnormal Ganga L Hill Work Phone: [facility] 250 DO Work Phone: Procedures Date Procedure [...] Work Phone: Start: 07-26-2022 Local excision [facility] Work Phone: Start: 07-26-2022 Repair of umbilical hernia Services [employer] Phone: Start: 06-15-2022 Cystoscopy Services [facility] Work Phone: Start: 06-15-2022 Diagnostic radiograp hy of abdomen [facility] [employer] Phone: Start: 06-04-2022 Diagnostic radiograp hy of abdomen [facility] [employer] Phone: Start: 05-24-2022 Extracorporeal shock wave lithotripsy [facility] [employer] [place] Phone: Start: 05-24-2022 Diagnostic radiograp hy of abdomen [facility] [employer] Phone: Start: 05-21-2022 Diagnostic radiograp hy of abdomen [facility] [employer] Phone: Start: 05-19-2022 CT of abdomen and pe lvis without contrast [facility] [employer] Phone: Start: 05-02-2022 MR lumbar spine wo con [facility] [employer] Phone: Start: 04-19-2022 X-ray of lumbar spin e, four views [facility] [employer] Phone: Start: 10-21-2016 Extracorporeal shock wave lithotripsy of calculus of kidney Mark Anthony NAYLOR Excision of cyst Ganga artis Work Phone: Hernia repair Ganga Hernandez Work Phone: Lithotripsy Ganga Hernandez Work Phone: Procedure on neck Ganga feliciano Work Phone: Tonsillectomy Ganga Hernandez Work Phone: Urine culture Ganga Edil Work Phone: Plan of Treatment Date Care Activity Detail Author Start: 07-13-2023 [facility] Start: 07-11-2023 Referral to neurologist [facility] Start: 07-11-2023 Hospital admission [facility] Start: 07-11-2023 Blood culture for ba cteria, including anaerobic screen Blood Culture [facility] Start: 06-21-2023 Extracorporeal shock wave lithotripsy OR Kidney ECSWL Single W/Cysto/Retro (Right) [facility] Start: 04-11-2023 FUV, Provider: Demarco Galicia, Status: Pen, Time: 11:20 AM FUV, Provider: Demarco Galicia, Status: Pen, Time: 11:[address] [facility] Q-go-[place] 250 DO Work Phone: Start: 02-14-2023 REST ONLY, Provider: VIBHA HHVI NUCLEAR 01,[id number], Status: Pen, Time: 12:30 PM REST ONLY, Provider: VIBHA HHVI NUCLEAR 01,[id number], Status: Pen, Time: 12:[address] [facility] 250 DO Work Phone: Start: 02-13-2023 STRESSNUC2, Provider : VIBHA HHVI NUCLEAR 01,[id number], Status: Pen, Time: 1:00 PM STRESSNUC2, Provider: VIBHA HHVI NUCLEAR 01,[id number], Status: Pen, Time: 1:[address] 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 [facility] Start: 02-05-2023 Hospital admission [facility] Start: 10-25-2022 Revision of left tot al hip arthroplasty OR Total Hip Arthro MIS/Revision (Left) [facility] Start: 10-03-2022 Blood chemistry [facility] Start: 10-03-2022 End: 10-03-2022 [facility] Start: 10-02-2022 MR angiography of he ad with contrast MR angio MR brain wo/w con [facility] Start: 10-02-2022 MRI of neck vessels MR angio neck w con [facility] Start: 10-02-2022 Blood chemistry [facility] Start: 10-02-2022 [facility] Start: 10-01-2022 Physical therapy procedure [facility] Start: 10-01-2022 Referral to occupati onal therapist [facility] Start: 10-01-2022 Referral to speech a nd language therapy service [facility] Start: 10-01-2022 Doppler ultrasonogra phy of bilateral carotid arteries US carotid doppler BI [facility] Start: 10-01-2022 US.doppler Carotid a rteries - bilateral [facility] Start: 10-01-2022 Referral to neurologist [facility] Start: 07-26-2022 [facility] Start: 07-26-2022 End: 07-26-2022 [facility] Start: 07-24-2022 [facility] Start: 06-15-2022 End: 06-15-2022 [facility] Start: 06-15-2022 Cystoscopy OR Cysto/Retro/Stent/St one/Holmium Laser (Left) [facility] Start: 06-15-2022 Diagnostic radiograp hy of abdomen XR [facility] Start: 06-15-2022 End: 06-15-2022 Admission to same day surgery center Departed Surgical Day Care [facility] C[facility]-Surgery [facility] [place] Start: 06-13-2022 End: 06-13-2022 Patient encounter procedure Departed Clinical [facility] Hsk-Knq-Nzepdkra Testing Start: 06-04-2022 Diagnostic radiograp hy of abdomen XR KUB [facility] Start: 06-04-2022 End: 06-04-2022 Patient encounter procedure Departed Clinical [facility] Ctr-XRay [place] Start: 05-24-2022 [facility] Start: 05-24-2022 Extracorporeal shock wave lithotripsy OR Kidney ECSWL Single W/Cysto/Retro (Left) [facility] Start: 05-24-2022 Revision of left tot al hip arthroplasty OR Total Hip Arthro MIS/Revision (Left) [facility] Start: 05-24-2022 Diagnostic radiograp hy of abdomen XR KUB [facility] Start: 05-24-2022 End: 05-24-2022 Admission to same day surgery center Departed Surgical Day Care [facility] Ctr-Surgery Center [facility] Anion gap measurement [facility] Work Phone: Bacteria identified in Urine by Culture [facility] Basophils [#/volume] in Blood by Automated count [facility] Work Phone: Basophils/100 leukoc ytes in Blood by Automated count [facility] Work Phone: Calcium [Mass/volume ] in Serum or Plasma [facility] Work Phone: Calculated LDL pelon sterol level [facility] Work Phone: Carbon dioxide, tota l [Moles/volume] in Serum or Plasma [facility] Work Phone: Chloride [Moles/volu me] in Serum or Plasma [facility] Work Phone: Cholesterol [Mass/vo lume] in Serum or Plasma [facility] Work Phone: Cholesterol in HDL [Mass/volume] in Serum or Plasma [facility] Work Phone: Cholesterol.total/Ch olester ol in HDL [Mass Ratio] in Serum or Plasma [facility] Work Phone: Creatinine and Glome rular filtration rate.predicted panel - Serum, Plasma or Blood [facility] Work Phone: Eosinophils [#/volum e] in Blood [facility] Work Phone: Eosinophils/100 leuk ocytes in Blood by Automated count [facility] Work Phone: Erythrocyte distribu tion width [Ratio] by Automated count [facility] Work Phone: Erythrocytes [#/volu me] in Blood [facility] Work Phone: Glucose [Mass/volume ] in Serum or Plasma [facility] Work Phone: Hematocrit [Volume Fraction] of Blood [facility] Work Phone: Hemoglobin [Mass/vol ume] in Blood [facility] Work Phone: Leukocytes [#/volume ] corrected for nucleated erythrocytes in Blood by Automated coun [facility] Work Phone: Leukocytes [#/volume ] in Blood [facility] Work Phone: Lymphocytes [#/volum e] in Blood by Automated count [facility] Work Phone: Lymphocytes/100 leuk ocytes in Blood by Automated count [facility] Work Phone: MCH [Entitic mass] b y Automated count [facility] Work Phone: MCHC [Mass/volume] b y Automated count [facility] Work Phone: MCV [Entitic volume] by Automated count [facility] Work Phone: Measurement of renal function [facility] Work Phone: Monocytes [#/volume] in Blood by Automated count [facility] Work Phone: Monocytes/100 leukoc ytes in Blood by Automated count [facility] Work Phone: Neutrophils [#/volum e] in Blood by Automated count [facility] Work Phone: Neutrophils/100 leuk ocytes in Blood by Automated count [facility] Work Phone: Nucleated erythrocyt es [Presence] in Blood by Automated count [facility] Work Phone: Patient Education [facility] Work Phone: Patient referral [facility] Work Phone: Platelet mean volume [Entitic volume] in Blood by Automated count [facility] Work Phone: Platelets [#/volume] in Blood [facility] Work Phone: Potassium [Moles/vol ume] in Serum or Plasma [facility] Work Phone: SARS-CoV-2 (COVID-19 ) N gene [Presence] in Respiratory specimen by ANGÉLICA with probe detection [facility] Work Phone: Sodium [Moles/volume ] in Serum or Plasma [facility] Work Phone: Triglyceride [Mass/v olume] in Serum or Plasma [facility] Work Phone: Troponin I.cardiac [Mass/volume] in Serum or Plasma by High sensitivity method [facility] Work Phone: Urea nitrogen [Mass/ volume] in Serum or Plasma [facility] Work Phone: VLDL cholesterol measurement [facility] Work Phone: Immunizations Immunization Date Immunization Notes Care Provider Sohan mijares 09-20-2021 COVID-19 mRNA, Comirnaty (Pfizer) Services [facility] Work Phone: [facility] 03-23-2021 COVID-19 mRNA-1273 (Moderna) Services [facility] Work Phone: [facility] 02-23-2021 COVID-19 mRNA-1273 (Moderna) Services [facility] Work Phone: [facility] 10-21-2020 SARS-CoV-2 (COVID-19 ) mRNA-1273 vaccine Mark Anthony NAYLOR [facility] [place] Comment on above: Result Comment: 3 [facility] Payers Date Payer Category Payer Medicare [id number] 2023 Self-pay [id number] 1961 Medicaid [id number] 1961 Medicare [id number] 1960 Unknown [id number] 2.16.84 [id number] 1958 Unknown [id number] 2.16.8 [id number] 1958 Unknown [id number] 2.16.8 40.1.442960.3.579.2.1068 1958 Unknown [id number] 2.16. 840.1.353021.3.579.2.356 1958 Unknown [id number] 2.16. 840.1.421855.3.579.2.356 1958 Unknown [id number] 2.16. 840.1.839900.3.579.2.356 1958 Unknown [id number] 2.16. 840.1.204240.3.579.2.356 1958 Unknown [id number] 2.16.84 0.1.196325.3.579.2.1259 1958 Unknown [id number] 2.16.84 0.1.409073.3.579.2.1259 1958 Unknown [id number] 2.16.84 0.1.168696.3.579.2.1259 1958 Unknown [id number] 2.16.84 0.1.938680.3.579.2.1259 1958 Unknown [id number] 2.16.8 40.1.944302.3.579.2.727 Medicaid [facility] [id number] [facility] [id number] Medicaid Unknown MMO [id number] Unknown [place] BC/BS [id number] Unknown [id number] Unknown Unknown [id number] 2.16.8 40.1.175420.3.579.2.531 Unknown [id number] 2.16.8 40.1.073212.3.579.2.531 Unknown [id number] 2.16.8 40.1.496604.3.579.2.531 Unknown [id number] 2.16.8 40.1.471845.3.579.2.531 Unknown [id number] 2.16.8 40.1.488876.3.579.2.531 Social History Date Type Detail Facility Sex Assigned At [facility] [employer] Other Start: 10-19-2020 End: 02-06-2023 Tobacco smoking status Ex-smoker (finding) [facility] Work Phone: Tobacco smoking status Never [facility] Start: 1960 Sex Assigned At Male F [facility] Start: 10-01-2022 End: 07-24-2023 Tobacco smoking status NHIS Never smoked tobacco (finding) [facility] No alcohol use No alcohol use [facility] [facility] DO Work Phone: Comment on above: Occasional coffee; Quit 1999; Medical Equipment Procedure Code Equipment Code Equipment Original Text Equipment Identifier Dates Repair, hernia, umbilical Abdominal hernia surgical mesh, composite-polymer ()[id number] FDA Start: 07-26-2022 Extracorporeal shockwave lithotripsy (ESWL) with cystoscopic insertion of urinary glenn Polymeric ureteral stent ()[id number] FDA Start: 05-24-2022 Spinal fixation plate, non-bioabsorbable ()[id number] FDA Start: 03-15-2021 Spinal fixation plate, non-bioabsorbable ()[id number] FDA Start: 03-15-2021 Spinal fixation plate, non-bioabsorbable ()[id number] FDA Start: 03-15-2021 Intervertebral-b o dy internal spinal fixation system ()[id number] FDA Start: 03-15-2021 Goals Date Patient Goal Desired Activity /State Functional Status Date Assessment Result Facility 07-13-2023 Functional status Patient at Baseline [facility] Work Phone: 02-06-2023 Functional status Patient at Baseline [facility] Work Phone: 10-03-2022 Functional status Patient at Baseline [facility] Work Phone: 10-02-2022 Functional status Patient at Baseline [facility] Work Phone: 05-22-2022 Functional Status N/A [facility] Mental Status Date Assessment Result Facility 07-13-2023 Cognitive function Cognitive Sta tus Patient at Baseline [facility] Work Phone: 02-06-2023 Cognitive function Cognitive Sta tus Patient at Baseline [facility] Work Phone: 10-03-2022 Cognitive function Cognitive Sta tus Patient at Baseline [facility] Work Phone: 10-02-2022 Cognitive function Cognitive Sta tus Patient Not at Baseline [facility] Work Phone: Clinical Notes 09-26-2021 to 07-13-2023 Note Date & Type Note Facility 07-13-2023 Progress note Note Date/Time July 13, 2023 12:02pm [facility] [address] [place] [address] Neurology Progress Note Signed Patient: Rod Mathias MR#: [id number] : 1960 Acct:[id number] Age/Sex: 62 / M Adm Date: 3 Loc: Room: [address] [place] [address] Type: ADM INOo Attending Dr: Shaila Bowen [...] right lower extremity. No limb dysmetria with qbhuxk-wfpd-lemmyj testing. DATA REVIEW: -CT head without any [...] ischemic attack, unspecified Status: Acute Documented By: Mkiey Rose DO 07/13/23 1200 Signed By: <Electronically signed by Mikey Rose DO> 07/13/23 1401 [facility] Work Phone: [phone] [id number] Progress note Author Shaila Bowen [facility] July 12, 2023 6:48pm Note Date/Time July 12, 2023 6:42pm [facility] [address] [place] [address] Hospitalist Progress Note Signed Patient: Rod Mathias MR#: [id number] : 1960 Acct:[id number] Age/Sex: 62 / M Adm Date: 3 Loc: 4N Room: [address] [place] [address] Type: ADM Mckeon Attending Dr: Shaila Bowen MD Copies to: [...] Administration Flush Documented By: Shaila Bowen MD 07/12/231835 Signed By: <Electronically signed by Shaila Bowen MD> 07/12/238 [facility] Work Phone: 1(197) 827-443309-22-2023 Consult note Author Mikey Rose [facility] July 12, 2023 3:35pm Note Date/Time July 12, 2023 12:20pm [facility] [address] [place] [address] Neurology Consult Note Signed Patient: Rod Mathias MR#: [id number] : 1960 Acct:[id number] Age/Sex: 62 / M Adm Date: 3 Loc: 4N Room: [address] [place] [address] Type: ADM INOo Attending Dr: Shaila Bowen MD Copies to: DO Shaila Ovalle MD Robert L Hill, MD~ HPI Consult Date: 07/12/23 Manager Background: Mikey Rose DO [facility] Medical History Arthritis hips Back pain was [...] Arun Collier MD07/12/2023 10:17 AM Dictation Location: [place] [address] 07/11/23 16:38 IMPRESSION: No acute intracranial pathology. No significant interval change. Impression dictated by: Darien Roldan M.D.07/11/2023 5:32 PM Dictation Location: [place] [address] Chest X-Ray 07/11/23 16:39 IMPRESSION: There is cardiomegaly. There is mild perihilar vascular prominence. This may represent sequelae of congestive heart failure or volume overload. There is no focal consolidation. Impression dictated by: Darien Roldan M.D.07/11/2023 8:41 PM Dictation Location: [place] [address] Assessment/Plan (1) TIA (transient ischemic attack): Assessment/Problem [...] right lower extremity. No limb dysmetria with avstfr-ggkd-xrswtf testing. Romberg negative but he has exaggerating [...] signed by Mikey Rose DO> 07/12/23 1535 [facility] Work Phone: 1(443) 554-576209-22-2023 History and physical note Author Shaila Bowen [facility] July 12, 2023 12:47am Note Date/Time July 11, 2023 8:11pm [facility] [address] [place] [address] Hospitalist H&P Signed Patient: Rod Mathias MR#: [id number] : 1960 Acct:[id number] Age/Sex: 62 / M Adm Date: 3 Loc: 4N Room: 8D6395-1 Type: ADM INOo Attending Dr: Shaila Bowen [...] care Discussed with:?the medical team, the patient [facility] Medical History Arthritis hips Back pain was [...] % (Auto) 27.5 % (.) 07/11/23 16:53 Stafford % (Auto) 8.1 % (.) 07/11/23 16:53 Eos % (Auto) 1.0 % (.) 07/11/23 16:53 Baso % (Auto) 0.7 % (.) 07/11/23 16:53 Nucleat RBC Rel Count 0.1 /100 WBC (0-0.5) 07/11/23 16:53 Neut # (Auto) 5.6 x10E3/uL (1.8-7.7) 07/11/23 16:53 Lymph # (Auto) 2.4 x10E3/uL (1.00-4.8) 07/11/23 16:53 Stafford # (Auto) 0.7 x10E3/uL (0.0-0.8) 07/11/23 16:53 [...] signed by Shaila Bowen MD> 07/12/23 0047 [facility] Work Phone: 1(373) 363-914112-22-2022 Evaluation note* Encounter Date Diagnosis Assessment Notes [...] activities of daily living. He continues taking [place] and is requesting a refill of this [...] as prescribed and I will refill his [place] as he feels this provides an element [...] - G89.29) Patient has continued need for [place]. OARRS report processed and reviewed and shows no violations. Patient was educated on the risks and benefits of half-way opioid use. [place] was refilled today, opioid risk assessment was done as well as pill count. Patient is compliant with opioid medication. The patient denies any opioid related side effects. [employer] Other 11-10-2022 Evaluation note* Encounter Date Diagnosis Assessment Notes Treatment Notes Treatment Clinical Notes Aug, Arthritis of lumbosacral spine (ICD-10 - M47.817) [employer] Other 11-09-2022 Evaluation note* Encounter Date Diagnosis [...] time. In the meantime, I will prescribe [place] twice daily as he feels this provides [...] - G89.29) Patient has continued need for [place]. OARRS report processed and reviewed and shows no violations. Patient was educated on the risks and benefits of half-way opioid use. [place] was prescribed today. Opioid contract was signed with Dr Castañeda and explained to the patient in detail, patient verbalizes an understanding. Opioid risk assessment was done. The patient denies any opioid related side effects in the past. UDS performed through [employer] today, will await confirmatory results. Aug, Other [...] negative findings were considered in medical decision-making. [employer] Other 10-01-2022 History general Narrative - Reported* Type Description Date Medical History Hypertension Medical History hyperlipidemia Medical History diabetes mallitus Surgical History Kidneys Surgical History ACDF-Doctor Henry Surgical History umbilical hernia repair 07/2022 Hospitalization History See Above Hospitalization History TIA, HTN, HPL, DMII 05/0 03/10 [employer] Other 10-01-2022 History general Narrative - Reported* Type Description Date Medical History Hypertension Medical History hyperlipidemia Medical History diabetes mallitus Surgical History Kidneys Surgical History ACDF-Doctor Henry Surgical History umbilical hernia repair 07/2022 Hospitalization History See Above Hospitalization History TIA, HTN, HPL, DMII 05/0 03/10 Hospitalization History TIA 09/2022 [employer] Other 09-22-2022 NoteHISTORY: Bone density screening COMPARISON: [...] and signed by Amol Vogt on 07/12/2022 1336[facility]08-19-2022 Evaluation note* Encounter Date Diagnosis Assessment [...] we will send a referral for him.. [employer] Other 08-02-2022 Hospital Discharge instructions Patient Education [...] include: ?Spinach. ?Rhubarb. ?Beets. ?Potato chips and turkish fries. ?Nuts. If you regularly take a diuretic medicine, make sure to eat at least 1 2 fruits or vegetables high in potassium each day. These include: ?Avocado. ?Banana. ?[place], prune, carrot, or tomato juice. ?Baked potato. [...] Casseroles. Pizza. Lasagna. Frozen meals. Potato chips. Malaysian fries. Summary You can reduce your risk [...] 02/01/2012 Document Revised: 01/27/2020 Document Reviewed: 09/17/2017 [employer] Patient Education 2020 [employer]. Follow Up Care 05/21/2022 14:04:05 With:KUMAR HAYS, Mark Anthony Child, URL Address: [address] [place], [place] [id number]- When: Unknown [facility] [id number] Evaluation note* Encounter Date Diagnosis Assessment Notes [...] L1 vertebra, initial encounter (ICD-10 - S32.010A) [employer] Other 12-07-2021 Evaluation note* Encounter Date Diagnosis [...] on an as-needed basis in the future. [employer] Other evaluation + Plan note No data available for this section [facility] Evaluation noteNo assessment information available [facility] Work Phone: Evaluation note* Diagnosis Onset Date Resolution Status Altered mental status acute Chest pain acute Confusion acute Dizziness acute Headache acute Speaking difficulty acute [facility] Work Phone: Evaluation note* Diagnosis Onset Date Resolution Status Altered mental status acute Chest pain acute Confusion acute Dizziness acute Headache acute Speaking difficulty acute TIA (transient ischemic attack) acute [facility] Work Phone: Evaluation note* Diagnosis Onset Date Resolution Status Chest pain acute Diabetes mellitus, type II a cute History of TIAs acute Hyperlipidemia acute Hypertension acute [facility] Work Phone: Evaluation note* Diagnosis Onset Date Resolution Status Altered mental status acute Syncope acute TIA (transient ischemic attack) acute [facility] Work Phone: History general Narrative - Reported* Type Description Date Medical History Hypertension Medical History hyperlipidemia Medical History diabetes mallitus Surgical History Kidneys Surgical History ACDF-Doctor Carl Hospitalization History See Above Hospitalization History TIA, HTN, HPL, DMII 03/10 [facility] [employer] Other Hospital Discharge instructions Additional Instructions 1. No driving if taking narcotic pain medication. 2. No lifting more than 20 pounds for 3 weeks. 3. After 2 days, can remove top dressing and may shower.[facility] Work Phone: Hospital Discharge instructions Additional Instructions If your symptoms return/worsen or you develop any further concerns or symptoms please see your doctor or return to the emergency department immediately.[facility] Work Phone: Progress note No data available for this section [facility] Summary Purpose Family History No Family History [...] L1 vertebra, initial encounter (S32.010A) Referral Organization [facility] Ne urosurgery Referring Provider First Name Mart Referring Provider Last Name Carl Referring Provider Specialty Neurologica l Surgery Referred Organization [facility] [employer]. Referred Address [address] [place], [place],[address] Referred Provider Specialty DME Referral Priority Routine [...] ROD MATHIAS is being seen for mpx results/[facility] d/c 02/06. * Patient is a 62-year-old gentleman here for follow-up following recent stress testing. He was seen in consultation in the hospital in January, ruled out for DE, had low CATHERINE risk score; has underlying [...] and content) DATE CREATED AUTHOR 09/04/2021 [facility] DATE CREATED AUTHOR AUTHOR'S ORGANIZ ATION 11/02/2022 [facility] dical Specialist DATE CREATED AUTHOR AUTHOR'S ORGANIZ ATION 04/12/2023 [employer] DATE CREATED AUTHOR AUTHOR'S ORGANIZ ATION 04/27/2023 [facility] DATE CREATED AUTHOR AUTHOR'S ORGANIZ ATION 08/02/2023 [facility] DATE CREATED AUTHOR AUTHOR'S ORGANIZ ATION 02/20/[address] [facility] DATE CREATED AUTHOR AUTHOR'S ORGANIZ ATION 06/19/2024 [facility] dical Specialists EPIC DATE CREATED AUTHOR AUTHOR'S ORGANIZ ATION 06/20/2024 [facility] REASON FOR VISIT (unrecogniz ed section and content) 6 months po ACDFback painMRI L/S resultsREF BY DR AMOR FOR LEFT HIP OSTEOARTHRITISNo Informationincrease hip pain Care Team (unrecognized sect ion and content) Team Status: Inactive Member Role Status Eloy Hernandez MD Primary Care Provider Active Mark Anthony Naylor MD Attending Provider Active Team Status: Inactive Member Role Status [facility] Primary Care Provider Active Terell Amor Jr, DO Attending Provider Active Team Status: Inactive Member Role Status [facility] Primary Care Provider Active César Arreaga DO Emergency Provider Active Team Status: Inactive Member Role Status [facility] Primary Care Provider Active Mart Henry MD Attending Provider Active Team Status: Active Member Role Status Eloy Hernandez MD Primary Care Provider Active Team Status: Inactive Member Role Status Eloy Hernandez MD Primary Care Provider Active Zheng Iraheta MD Attending Provider Active Team Status: Active Member Role Status Eloy Hernandez MD Primary Care Provider Active Spike J Estrada , DO Emergency Provider Active Sayra [...] Hernandez MD Primary Care Provider Active Deniz Lacye MD Emergency Provider Active Lilia Bowers MD Admit Provider, Attending Provide r Active Ingrid Evans RN Other Provider Active Lars Galicia , Other Provider Active Nilo Roach MD Other Provider Active Demarco Justin MD Other Provider Active Joann Hopson MD Other Provider Active Kenny Alexander MD Other Provider Active Crystal Lacey APRN Other Provider Active Sarita Johnson MD Other Provider Active Ira Do MD Other Provider Active Sandy Hamilton MD Other Provider Active Jeanne Martinez , [facility] Other Provider Active Roxy Sandoval MD Other Provider Active Team Status: Inactive Member Role Status Eloy Arreaga , DO Emergency Provider Active Ganga Hernandez MD Primary Care Provider Active Shaila Bowen MD Admit Provider, Attending Provider Active Mikey Rose , DO Other Provider Active Team Status: Inactive Member Role Status Eloy Hernandez MD Primary Care Provider Active Jose Hernandez , Emergency Provider Active FOR RECORDS PERTAINING TO [...] BE BASED ON THE PRIMARY CLINICAL RECORDS. [facility]. provides no warranty or guarantee of the accuracy or completeness of information in this document.
[2024-06-30 07:42] LABS: INR 1.02; Prothrombin Time 10.8 sec (9.0-11.6)
[2024-06-30] MEDS: LACTATED RINGER'S SOLUTION 1,000 ML 50 ML IV (07:57)
[2024-06-30] MEDS: CEFAZOLIN SODIUM 1 GM/50 ML D5W PREMIX IV (07:58)
--- NOTE | 2024-06-30 09:18 | P.URON_ITS ---
Urology Surgery Operative Note Operative Note Procedure Date: 06/30/24 Time Out Performed: yes Pre-op Diagnosis: Right ureteral calculus; status post right stent placement Post-op Diagnosis: same as pre-op Procedures performed: 1. Cystoscopy. 2. Right stent change to 6 Guamanian variable length. 3. Right ureteroscopy. 4. Thulium laser lithotripsy of a large right ureteral calculus. 5. Stone fragment basket extraction. Anesthesia: General-LMA Primary Surgeon: Norris Shi Complications: None Estimated blood loss (mL): 5 Findings: Large right ureteral calculus at L5. Specimens: Right ureteral calculus fragments Drains: 6 Guamanian variable length right ureteral stent Indications for Procedures: This gentleman had a large right ureteral calculus obstructing him. He was stented several weeks ago. He now presents for definitive ureteroscopic stone manipulation and possible right stent change. He has signed an informed consent after risks were explained. Detailed description of Procedure: The patient was brought to the operating room and placed on the operating room table in the supine position. SCDs were placed on the lower extremities and turned on and functioning during the entire case. Timeout was done by all parties in the room. We all agreed upon the patient's identification and the planned procedures for this patient. Genn. anesthesia was then administered. The patient was then repositioned into the modified dorsal lithotomy position. All pressure points were satisfactorily padded. Genitalia were sterilely prepped and draped in usual fashion. I started by passing a 22 Guamanian Olympus cystoscope per urethra and into the bladder. Anterior urethra was normal. Prostatic urethra showed trilobar obstruction. Panendoscopy in the bladder revealed no tumors. The stent was not encrusted. Flexible grasping forceps was passed and the end of the stent was grasped. The end of the stent was brought out the urethral meatus. I then slid a Glidewire through the stent up into the kidney and remove the old stent. I then passed a 10/12 ureteral access sheath over the wire and up to the L5 position. I could feel the stone grinding on the tip of the access sheath. The wire and stylette were then removed. I then passed a flexible ureteroscope through the access sheath and right into the ureter and got right to this very large stone. A 270 ? laser fiber was used and passed through the scope and made contact with the stone. The thulium laser was placed at the first 6 W then 8 W in the fragmenting mode. I steadily fragmented this large stone. A 0 tip nitinol basket was used to extract pieces and these were all sent for analysis. I went up and down the ureter numerous times until it was free of stone. The Glidewire was passed up the access sheath into the kidney and the scope and access sheath were then removed. The cystoscope was backloaded over the wire and passed into the bladder. A new 6 Guamanian variable length stent was passed over the wire up to the kidney. The wire was removed and there were good curls in the kidney and in the bladder. T he bladder was drained of its contents and the scope was then removed. He was then transferred to a rla fayette bed and wheeled to PACU in stable condition.
[2024-07-09 16:11] LABS: Calcium Oxalate Monohydrate 60 % (.); Size 5x3 mm (.); Uric Acid 40 % (.)
== END 2024-06-30 10:36 | disposition home or self-care (01) ==
PROVIDERS: PCP Internal Medicine; Visit Provider Urology
PROC: (CPT 00918; principal; 2024-06-30 08:00)
DX: N20.1 Calculus of ureter (principal); Z86.73 Personal history of transient ischemic attack (TIA), and cerebral infarction without residual deficits; E78.5 Hyperlipidemia, unspecified; Z79.84 Long term (current) use of oral hypoglycemic drugs; Z87.891 Personal history of nicotine dependence; N18.9 Chronic kidney disease, unspecified; I12.9 Hypertensive chronic kidney disease with stage 1 through stage 4 chronic kidney disease, or unspecified chronic kidney disease; E11.22 Type 2 diabetes mellitus with diabetic chronic kidney disease
CPT/HCPCS: 00918; 52356; 36415; 74420; 82365; 85610; 85730; 99999; J0690; J2405; J2704; J3010

== ENCOUNTER 2025-08-13 20:07 | Emergency (ER) | payer MEDICARE, MEDICAID, SELFPAY ==
--- OUTSIDE RECORDS SUMMARY | 2024-03-27 11:00 | XMS_ITS ---
Author Organization [facility] Address [address] [place] [address] Care Team Providers Care Personal Financial Representative Name Role Phone Brady Mederos Primary Care Provider [phone] Eugenia Matthew [phone] REASON FOR VISIT PROPHY / EXAM / BWX Encounters Encounter Location Date Provider Diagnosis [facility] [address] [place] [address] 03/27/2024 Eugenia Romo Plan Of Treatment No Information Progress Notes * ROD KAYE KDOB: [birth year] (64 yo M)Acc No.[id number]:03/27/2024 Patient:?MIKKI ROD Alcantar :?Eugenia RomoDOB:1960???Age:63 Y???Sex:Male Date:03/27/2024hone:[phone]:[id number] [address] [id number] Pcp:Brady Mederos Subjective: * Chief Complaints: * P ROPHY / EXAM / BWX * Electronic signature of Eugenia Romo on 08/13/2025 at 08:19 PM EDTSign off status: Pending * Provider: Ortiz Romo Date: 0 03/27/2024 Generated for Printing/Faxing/eTransmitting on:?08/13/2025 08:19 PM EDT
--- OUTSIDE RECORDS SUMMARY | 2024-06-11 10:00 | XMS_ITS ---
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 Name Role Phone None, Unknown or Primary Care Provider Unavailab Sofya Cummings Unavailable [phone] REASON FOR VISIT bm bm 6mo fbse Encounters Encounter Location Date Provider Diagnosis [facility] [place] [address] 06/11/2024 Sofya James Plan Of Treatment No Information Progress Notes * MIKKIAshleyamaDOB: 8 (64 yo M)Acc No.[id number]:06/11/2024 UNLOCKED PROGRESS NOTE Established Patient: Mary ZHENG :?Sofya James DNP, JULIANE-CDOB:1960???Age: 63 Y???Sex:MaleDate:06/11/2024hone:[phone]:[place], [place]-[id number]:Unknown or None Subjective: * Chief Complaints: * 1 . Bm bm 6mo fbse. * Medical History: Objective: * Vitals: Assessment: Plan: * Treatment: * * Electronic signature of Sofya James DNP on 08/13/2025 at 08:17 PM EDTSign off status: PendingVisit Status:?N/S (No-Show) * Provider: Anthony James DNP, JULIANE-C Date: 0 06/11/2024 Generated for Printing/Faxing/eTransmitting on:?08/13/2025 08:17 PM EDT
--- OUTSIDE RECORDS SUMMARY | 2024-07-10 05:45 | XMS_ITS ---
Author Organization [facility] Servic es Address [address] [place] [address] Care Team Providers Care Fig Washer Name Role Phone Brady Mederos Primary Care Provider Soo Monson [phone] REASON FOR VISIT CHIPPED TEETH Encounters Encounter Location Date Provider Diagnosis [facility] [address] [place] [address] 07/10/2024 Soo Monson Plan Of Treatment No Information Progress Notes * ROD KAYE KDOB: [birth year] (64 yo M)Acc No.[id number]:07/10/2024 Patient:?ROD KAYE :?Soo Monson DDSDOB:1960???Age:63 Y ???Sex:MaleDate:07/10/2024hone:[phone]:[address]OLDAN [id number]:Brady Mederos Subjective: * Chief Complaints: * C HIPPED TEETH Billing Information: * Procedure Codes: * Electronic signature of Soo Monson DDS on 08/13/2025 at 08:17 PM EDTSign off status: Pending * Provider: Patito Monson DDS Date: 0 07/10/2024 Generated for Printing/Faxing/eTransmitting on:?08/13/2025 08:17 PM EDT
--- OUTSIDE RECORDS SUMMARY | 2024-08-10 10:15 | XMS_ITS ---
Author Organization [facility] Serv[facility] es Address [address] [place] [address] Care Team Providers Care Duck Operator Name Role Phone Brady Mederos Primary Care Provider Soo Monson [phone] REASON FOR VISIT CHIPPED TEETH Encounters Encounter Location Date Provider Diagnosis [facility] [address] [place] [address] 08/10/2024 Soo Monson Plan Of Treatment No Information Progress Notes * ROD KAYE KDOB: [birth year] (64 yo M)Acc No.[id number]:08/10/2024 Patient:?ROD KAYE :?Soo Monson DDSDOB:1960???Age:63 Y ???Sex:MaleDate:08/10/2024hone:[phone]:159 [address] ROLDAN [id number]:Brady Mederos Subjective: * Chief Complaints: * C HIPPED TEETH Billing Information: * Procedure Codes: * Electronic signature of Soo Monson DDS on 08/13/2025 at 08:18 PM EDTSign off status: Pending * Provider: Patito Monson DDS Date: Generated for Printing/Faxing/eTransmitting on:?08/13/2025 08:18 PM EDT
[2025-08-13 20:08] VITALS: BP 107/66; PULSE 71; TEMP 36.6; O2SAT 97; BMI 32.1
--- NOTE | 2025-08-13 20:14 | CT_ITS ---
The [address] [address] Patient Name: ROD KAYE MRN: [facility]:[id number] date: 1960 Sex: M Assigned Patient Location: ER Current Patient Location: .MAIN Accession/Order Number: [id number] Exam Date: 08/13/2025 20:24 Report Date: 08/13/2025 20:51 At the request of: ZAIDA KING MD Procedure: CT abdomen pelvis wo con CT ABDOMEN AND PELVIS WITHOUT INTRAVENOUS CONTRAST: CLINICAL HISTORY: right renal colic COMPARISON: 06/18/2024 TECHNIQUE: Spiral images were obtained through the abdomen and pelvis without intravenous contrast. This CT exam was performed using one or more following dose reduction techniques: Automated exposure control, adjustment of the mA and/or kV according to patient size, or use of iterative reconstruction technique. FINDINGS: Lung Bases: [Hypoventilatory changes. Trace pericardial fluid versus pericardial thickening.] Organs:Mildly distended gallbladder 5 cm. Otherwise liver, spleen, adrenals and pancreas are unremarkable. Right-sided hydroureter noted likely caused by a right ureteral vesicle junction calculus which measures 4 x 3 mm. Additional right-sided calculi up to 1 cm size, nonobstructive. Left-sided calculi noted up to 2 mm in size, nonobstructive. No left-sided hydronephrosis. Otherwise bilateral renal cystic lesions.[ GI: Mild to moderate in stool the colon. No bowel obstruction. No CT findings acute appendicitis. Distal colonic diverticulosis noted.[ Pelvis:[Minimal bladder wall thickening. Right ureterovesical junction calculus noted. Small fat-containing inguinal hernias.] Peritoneum/Retroperitoneum:Moderate plaque involving the nonaneurysmal aorta. No free air. No free fluid.[ Abd wall/Bones:Degenerative changes lumbar spine and both hips. No suspicious osseous lesion.[Prior umbilical herniorrhaphy noted. CT/CT abdomen pelvis wo con IMPRESSION: Right-sided hydroureter caused by a 4 mm calculus at level of the right ureterovesical junction/trigone. Additional bilateral calculi identified nonobstructive up to one centimeters in greatest size on the right. Impression dictated by: Ruiz Man M.D. 08/13/2025 8:51 PM Dictation Location: [place] [address] Electronically authenticated by: [id number] Y Date: 08/13/2025 20:51
--- NOTE | 2025-08-13 20:14 | ED.ABDPAIN1 ---
HPI - Abdominal Pain General Chief Complaint: Abdominal Pain Stated Complaint: Flank Pain Time Seen by Provider: 08/13/25 20:08 Source: patient Mode of arrival: ambulance History of Present Illness HPI narrative: past history kidney stones. Acute onset of pain right flank. Pain associated with recurrent nausea and vomiting. Pain lasted a couple of hours and then resolved by the time Squad arrived to his home. He wanted to come in and get checked out. No symptoms currently. No fever, dysuria or hematuria Related Data Home Medications ?Medication ?Instructions ?Recorded ?Confirmed alprazolam 0.5 mg tablet 0.5 mg PO TID PRN anxiety 06/04/24 08/13/25 amlodipine 5 mg tablet 5 mg PO DAILY 06/04/24 08/13/25 aspirin 81 mg tablet,delayed 81 mg PO DAILY 06/04/24 08/13/25 release canagliflozin 100 mg tablet 100 mg PO DAILY 06/04/24 06/30/24 (Invokana) glimepiride 1 mg tablet 1 mg PO DAILY 06/04/24 08/13/25 hydrocodone 5 mg-acetaminophen 325 2 tab PO Q4H PRN pain 06/04/24 08/13/25 mg tablet losartan 100 mg tablet 100 mg PO DAILY 06/04/24 08/13/25 semaglutide 14 mg tablet (Rybelsus) 14 mg PO DAILY 06/04/24 08/13/25 rosuvastatin 10 mg tablet 10 mg PO QPM 08/13/25 08/13/25 Allergies Allergy/AdvReac Type Severity Reaction Status Date / Time No Known Drug Allergies Allergy Verified 06/29/24 14:12 Review of Systems ROS Status of ROS 10 or more systems reviewed and unremarkable except as noted in history and below [facility] Medical History (Updated 08/13/25 @ 22:28 by Isma Red MD) Kidney stones ?N20.0 - Calculus of kidney (ICD-10) Diabetes ?E11.9 - Type 2 diabetes mellitus without complications (ICD-10) Intractable abdominal pain ?R10.9 - Unspecified abdominal pain (ICD-10) CKD (chronic kidney disease) ?N18.9 - Chronic kidney disease, unspecified (ICD-10) Hydronephrosis ?N13.30 - Unspecified hydronephrosis (ICD-10) Hyperlipidemia ?E78.5 - Hyperlipidemia, unspecified (ICD-10) Chronic kidney disease (CKD) ?N18.9 - Chronic kidney disease, unspecified (ICD-10) CVA (cerebral vascular accident) ?I63.9 - Cerebral infarction, unspecified (ICD-10) History of diabetes mellitus ?Z86.39 - Personal history of other endocrine, nutritional and metabolic disease (ICD-10) History of hypertension ?Z86.79 - Personal history of other diseases of the circulatory system (ICD-10) History of kidney stones ?Z87.442 - Personal history of urinary calculi (ICD-10) Surgical History (Updated 06/24/24 @ 14:50 by Gissel Singleton RN) H/O cystoscopy ?Z98.890 - Other specified postprocedural states (ICD-10) H/O umbilical hernia repair ?Z98.890 - Other specified postprocedural states (ICD-10) ?Z87.19 - Personal history of other diseases of the digestive system (ICD-10) H/O neck surgery ?Z98.890 - Other specified postprocedural states (ICD-10) H/O lithotripsy ?Z98.890 - Other specified postprocedural states (ICD-10) Family History (Updated 06/24/24 @ 14:51 by Gissel Singleton RN) Brother Family history of diabetes mellitus Other Family history of hypertension Social History Within the past year, how often did you have a drink containing alcohol: never Within the past year, how often did you have six or more drinks on one occasion: never Score interpretation: A score less than 4 is consistent with normal alcohol consumption. Smoking status: Former smoker Non-prescribed substance use: denies use Previous occupational history: disability Highest level of school completed/degree received: Bachelor's degree Are you now , , , , never or living with a partner: In a typical week, how many times do you talk on the telephone with family, friends, or neighbors: never How often do you get together with friends or relatives: never How often do you attend sabianist or methodist services: never Do you belong to any clubs or organizations such as sabianist groups unions, fraternal or athletic groups, or school groups: no Total score: 0 Score interpretation: A score of less than or equal to 1 indicates the most socially isolated. Little interest or pleasure in doing things: not at all Feeling down, depressed, or hopeless: not at all Feel stressed/tense/nervous/anxious/difficulty sleeping: not at all Gender Identity: male Exam Constitutional Vital Signs, click to edit/add: Last Vital Signs Temp 97.8 F 08/13/25 20:08 Pulse 71 08/13/25 20:08 Resp 16 08/13/25 20:08 BP 107/66 08/13/25 20:08 Pulse Ox 97 08/13/25 20:08 O2 Del Method Room Air 08/13/25 20:08 Common normals: no apparent distress, average body habitus, oriented x3, no limitations, healthy appearing, alert and well nourished HENMT Common normals: normocephalic and head/scalp atraumatic Eye Common normals: PERRL and EOMs intact bilaterally Respiratory Common normals: normal respiratory effort, no retractions, no use of accessory muscles and clear to auscultation bilaterally Cardio Common normals: regular rate, regular rhythm, S1 normal heart sound and S2 normal heart sound GI Common normals: Normal to inspection, nondistended, normoactive bowel sounds present and soft to palpation Extremity Common normals: normal to inspection and full ROM Neuro Common normals: oriented x3, CN's II-XII intact bilaterally, moves all extremities and no focal motor deficits Psych Appearance: grossly normal Course Vital Signs Vital signs: Vital Signs Temperature 97.8 F 08/13/25 20:08 Pulse Rate 71 08/13/25 20:08 Respiratory Rate 16 08/13/25 20:08 Blood Pressure 107/66 08/13/25 20:08 Pulse Oximetry 97 08/13/25 20:08 Oxygen Delivery Method Room Air 08/13/25 20:08 Temperature 97.8 F 08/13/25 20:08 Pulse Rate 71 08/13/25 20:08 Respiratory Rate 16 08/13/25 20:08 Blood Pressure 107/66 08/13/25 20:08 Pulse Oximetry 97 08/13/25 20:08 Oxygen Delivery Method Room Air 08/13/25 20:08 MDM - Abdominal Pain MDM Narrative Medical decision making narrative: patient presents with acute right renal colic. asymptomatic by the time he arrived to the ER. Known history of CKD stage III. CT with evidence of right hydronephrosis and 4mm stone at right UVJ. Patient did pass the stone while in the department. Labs return with mildly elevated lactic at 2.3. UA with evidence of dehydration and trace leukocytes and moderate bacteria. nursing not able to establish IV. patient afebrile in no distress. Advised to drink plenty of fluids and to follow up with his doctor regarding his known renal disease. Provided a prescription of keflex and urine culture pending. Discharged home asymptomatic Lab Data Labs: Lab Results 08/13/25 08/13/25 Range/Units 20:28 20:35 WBC 12.1 H (4.0-11.0) 10^3/uL RBC 4.64 L (4.70-6.10) 10^6/uL Hgb 15.3 (14.0-18.0) g/dL Hct 46.4 (42.0-54.0) % MCV 100.0 H (80.0-94.0) fL MCH 33.0 (25.9-34.0) pg MCHC 33.0 (29.9-35.2) g/dL RDW 14.3 (11.0-15.0) % Plt Count 273 (150-450) 10^3/uL MPV 9.6 (9.5-13.5) fL Neut % (Auto) 73.2 (43.0-75.0) % Lymph % (Auto) 19.0 L (20.5-60.0) % [place] % (Auto) 6.5 (1.7-12.0) % Eos % (Auto) 0.7 L (0.9-7.0) % Baso % (Auto) 0.3 (0.2-2.0) % Neut # (Auto) 8.8 H (1.4-6.5) 10^3/uL Lymph # (Auto) 2.3 (1.2-3.8) 10^3/uL [place] # (Auto) 0.8 (0.3-0.8) 10^3/uL Eos # (Auto) 0.1 (0.0-0.7) 10^3/uL Baso # (Auto) 0.0 (0.0-0.1) 10^3/uL Abs Immat Gran (auto) 0.04 H (0.00-0.03) 10^3/uL Imm/Tot Granulo (auto) 0.3 (0.0-0.5) % Sodium 135 L (136-145) mmol/L Potassium 4.3 (3.5-5.1) mmol/L Chloride 103 (98-107) mmol/L Carbon Dioxide 19.6 L (21.0-32.0) mmol/L Anion Gap 16.7 BUN 24.0 H (7.0-18.0) mg/dL Creatinine 2.05 H (0.70-1.30) mg/dL Est GFR ( Amer) 40 L (>=60 mL/min/1.73m^2) Est GFR (Non-Af Amer) 33 L (>=60 mL/min/1.73m^2) BUN/Creatinine Ratio 11.7 Glucose 158 H (74-106) mg/dL Lactate 2.3 H* (0.4-2.0) mmol/L Calcium 9.2 (8.5-10.1) mg/dL Total Bilirubin 0.6 (0.2-1.0) mg/dL AST 15 (15-37) U/L ALT 23 (16-63) U/L Alkaline Phosphatase 138 H (46-116) U/L Troponin I High Sens 4.9 (4.0-76.1) pg/mL Total Protein 8.2 (6.4-8.2) g/dL Albumin 3.9 (3.4-5.0) g/dL Globulin 4.3 g/dL Albumin/Globulin Ratio 0.9 Lipase 74.0 (16.0-77.0) U/L Urine Color Dk. yellow (YELLOW) Urine Clarity Cloudy A (CLEAR) Urine pH 5.5 (5.0-9.0) Ur Specific [place] 1.025 (1.005-1.025) Urine Protein 100 A (NEG/TRACE) mg/dL Urine Glucose (UA) Negative (NEGATIVE) mg/dL Urine Ketones Trace A (NEGATIVE) mg/dL Urine Occult Blood Large A (NEGATIVE) Urine Nitrite Negative (NEGATIVE) Urine Bilirubin Moderate A (NEGATIVE) Urine Urobilinogen 1.0 (0.2-1.0) EU/dL Ur Leukocyte Esterase Trace A (NEGATIVE) Urine RBC >100 A (0-2) #/HPF Urine WBC 2-5 A (NONE SEEN) #/HPF Ur Squamous Epith Cells Rare (NONE/RARE) #/LPF Urine Crystals None seen (None Seen) #/HPF Urine Bacteria Moderate A (NONE SEEN) #/HPF Urine Casts Seen A (NONE SEEN) #/LPF Hyaline Casts Rare Urine Mucus Trace A (NONE SEEN) Ur Culture Indicated? [place]-[facility] [place] Plan Discharge Chief Complaint: Abdominal Pain Clinical Impression: Ureteral calculus, right, Acute UTI, Chronic kidney disease (CKD) Patient Disposition: Home, Self-Care Prescriptions / Home Meds: No Action rosuvastatin 10 mg tablet 10 mg PO QPM alprazolam 0.5 mg tablet 0.5 mg PO TID PRN (Reason: anxiety) amlodipine 5 mg tablet 5 mg PO DAILY hydrocodone-acetaminophen 5-325 mg tablet 2 tab PO Q4H PRN (Reason: pain) glimepiride 1 mg tablet 1 mg PO DAILY Rybelsus 14 mg tablet 14 mg PO DAILY Invokana 100 mg tablet 100 mg PO DAILY losartan 100 mg tablet 100 mg PO DAILY aspirin 81 mg tablet,delayed release (DR/EC) 81 mg PO DAILY Print Language: Korean Instructions: Urinary Tract Infection in Men (ED), Renal Colic (ED), Diabetic Kidney Disease (ED) Additional Instructions: drink plenty of fluids and follow up with your doctor next week for recheck Referrals: GANGA HERNANDEZ [Primary Care Provider, Internal Medicine] - 1 week
--- OUTSIDE RECORDS SUMMARY | 2025-08-13 20:18 | XMS_ITS | Clinical Summary ---
Author Organization [facility] Address [address] [place] [address] Phone Care Team Providers Care Hybrid Technologist Name Role Phone Kamron Solo MD Primary Care Provider Social History Tobacco UseTypesPacks/DayYears UsedDateSmoking Tobacco: Never AssessedSex and Gender InformationValueDate RecordedSex Assigned at BirthNot on fileLegal Sex Male09/15/2022 3:22 AM ESTGender IdentityNot on fileSexual OrientationNot on file Last Filed Vital Signs Vital SignReadingTime TakenCommentsBlood Gxbmhkun776/7206 11:24 AM EDT Xeqfi5158 11:24 AM EDTTemperature--Respiratory Rate--Oxygen Saturation-- Inhaled Oxygen Concentration--Jtiiau500 kg (222 lb)04/11/2023 11:24 AM EDTHeight 179.1 cm (5' 10.5 )04/11/2023 11:24 AM EDTBody Mass Index31.406 11:24 AM EDT Plan of Treatment Health MaintenanceDue DateLast DoneCommentsCT Wwvtvsbsztkg1958Colonoscopy 1958Colorectal Cancer Pptwkvsnv1958FIT-DNA (Cologuard)1958FIT 1958Lipid Panel1958 1422Zpagexcuksejo1958Yearly Adult Physical 1958MMR Vaccines (1 of 1 - Standard series)1959Hepatitis C Screening 1976DTaP/Tdap/Td Vaccines (1 - Tdap)1980PSA Prostate Cancer Qoiwemros48/21/2008Pneumococcal Vaccine (1 of 1 - PCV)2008Zoster Vaccines (1 of 2)2008Influenza Vaccine (#1)2025OVID-19 Vaccine ( - 2024- season)2025RSV High Risk: (Elderly (60+) or Population) (1 - 1- dose 75+ series)2033HIB VaccinesAged OutNo longer eligible based on patient's age to complete this topicHPV VaccinesAged OutNo longer eligible based on patient's age to complete this topicHepatitis A VaccinesAged OutNo longer eligible based on patient's age to complete this topicHepatitis B VaccinesAged OutNo longer eligible based on patient's age to complete this topicIPV Vaccines Aged OutNo longer eligible based on patient's age to complete this topic Meningococcal VaccineAged OutNo longer eligible based on patient's age to complete this topicRotavirus VaccinesAged OutNo longer eligible based on patient's age to complete this topic Care Teams Team MemberRelationshipSpecialtyStart DateEnd Kamron Solo MD [address] [place] [address] [facility]02/13/23
--- OUTSIDE RECORDS SUMMARY | 2025-08-13 20:18 | XMS_ITS | Patient Health Record ---
Author Organization [facility] [place] Address [address] [place] [address] Care Team Providers Care Harness Tier Name Role Phone None, Unknown or Primary Care Provider Unavailab le Reason For Referral No Information Problems Problem Type SNOMED Code ICD Code Onset Dates Problem Status W/U Status Risk Notes Problem Leukocytosis (523854505) Leukocytosis (D7 2.829) ActiveconfirmedProblemEssential hypertension (36381077)BP (high blood pressure) (I10)ActiveconfirmedProblemDiabetes mellitus (68825691)Diabetes mellitus (E11.9) ActiveconfirmedProblemChronic kidney disease stage 4 (945447983)Acute worsening of stage 4 chronic kidney disease (N18.4)Activeconfirmed Plan Of Treatment No Information Insurance Providers Payer Name Payer Address Payer Phone Subscriber Number Group Number Insured Name Patient Relationship to Insured Coverage Start Date Coverage End Date [employer] ADV PLAN [address] [place] [phone] [id number] [facility] Mathias Self - patient is the insured 4 MEDICAID [place] [address] OFF[place], [place] [id number] [id number], MarlinSelf - patient is the insured
--- OUTSIDE RECORDS SUMMARY | 2025-08-13 20:18 | XMS_ITS | Encounter Summary ---
Author Organization [facility] Address [address] [place] [address] Care Team Providers Care Territory Supervisor Name Role Phone Kamron Solo MD Primary Care Provider Jeanne Perdue Unavailable Mart Henry MD Unavailable Jr. Terell Amor DO Unavailable Kamron Solo MD Unavailable [phone] Mark Anthony Heath MD Unavailable [phone] Reason for Visit * ReasonOnset DateCommentsMed Fscefj5308/12/2025 Encounter Details DateTypeDepartmentCare Team (Latest Contact Info)Svycxqexieh19/23/2025Telephone [facility] [address] [place] [address] Jeanne Perdue LSW [address] [place] [address] Med Refill Social History Tobacco UseTypesPacks/DayYears UsedDateSmoking Tobacco: FormerCigarettes 10/21/1979 - 10/21/1999Smokeless Tobacco: NeverAlcohol UseStandard Drinks/Week CommentsNot Currently0 (1 standard drink = 0.6 oz pure alcohol)caffeine: coffee 1 cup a dayAUDIT-CAnswerDate RecordedQ1: How often do you have a drink containing alcohol?Never05/02/2024Q2: How many drinks containing alcohol do you have on a typical day when you are drinking?Patient does not drink02/20/2024Q3: How often do you have six or more drinks on one occasion?Never02/20/2024HQ-2 AnswerDate RecordedPatient Health Questionnaire-2 Foypc808Sex and Gender InformationValueDate RecordedSex Assigned at HhnduSsdk68/07/2023 11:31 AM EDT Legal BlfPptm1501/02/2023 11:19 PM EDTGender WskgqslpWxfr51/07/2023 11:31 AM EDT Sexual ZildrnelwpvGtcoiqn52/07/2023 11:31 AM EDTdocumented as of this encounter Progress Notes * SHEBA Ernst - 08/12/2025 3:16 PM EDT Pt requesting refill order on Xanax. Next visit is 08/18. documented in this encounter Plan of Treatment DateTypeDepartmentCare Team (Latest Contact Info)Bumwokpypjg14/29/2025 1:00 PM EDTOffice Visit [facility] [address] [place] [address] documented as of this encounter Visit Diagnoses Not on filedocumented in this encounter Care Teams Team MemberRelationshipSpecialtyStart DateEnd Date Kamron Solo MD [address] [place] [address] PCP - GeneralInternal Medicine04/29/23 Kamron Solo MD [address] [place] [address] PCP - Carlos SMITH/11/13 Jeanne Perdue LSW [address] [place] [address] Social WorkerFamily Mfpesjhx20/12/23 Mart Henry MD [address] [place] [address], [address] [place] [address] Referring PhysicianNeurosurgery02/20/24 Jr. Terell Amor DO [address] [facility] [address] [place] [address] Referring PhysicianOrthopaedic Surgery02/20/24 Mark Anthony Heath MD [address] [place] [address] Referring PhysicianUrology06/17/24 [facility] Ophthalmology02/20/24documented as of this encounter
--- OUTSIDE RECORDS SUMMARY | 2025-08-13 20:18 | XMS_ITS | Encounter Summary ---
Author Organization [facility] Address [address] [place] [address] Care Team Providers Care Health Sanitarian Name Role Phone Kamron Solo MD Primary Care Provider Jeanne Perdue Unavailable Mart Henry MD Unavailable Jr. Terell Amor DO Unavailable [phone] Kamron Solo MD Unavailable [phone] Mark Anthony Heath MD Unavailable [phone] Encounter Details DateTypeDepartmentCare Team (Latest Contact Info)Dyueitpikdg97/17/2025Patient Outreach [facility] [address] [place] [address] Jeanne Perdue, [employer] [address] [facility] [address] [place] [address] Social History Tobacco UseTypesPacks/DayYears UsedDateSmoking Tobacco: FormerCigarettes 10/21/1979 - 10/21/1999Smokeless Tobacco: NeverAlcohol UseStandard Drinks/Week CommentsNot Currently0 (1 standard drink = 0.6 oz pure alcohol)caffeine: coffee 1 cup a dayAUDIT-CAnswerDate RecordedQ1: How often do you have a drink containing alcohol?Never02/20/2024Q2: How many drinks containing alcohol do you have on a typical day when you are drinking?Patient does not drink02/20/2024Q3: How often do you have six or more drinks on one occasion?Never4PHQ-2 AnswerDate RecordedPatient Health Questionnaire-2 Phgze768Sex and Gender InformationValueDate RecordedSex Assigned at QumfrElyd84/07/2023 11:31 AM EDT Legal QkhRkvn9601/02/2023 11:19 PM EDTGender UlsgjrxdNoqn40/07/2023 11:31 AM EDT Sexual CuxaioxbmcaQjhywfn95/07/2023 11:31 AM EDTdocumented as of this encounter Progress Notes * SHEBA Ernst - 08/06/2025 3:17 PM EDT Call received from pt who is currently at [facility] to have lab work completed. microbiology quality control technician is with him in the background. She advised they need clarification on 2 of his Lab orders. The GEORGE and the Immunoglobin free. She also advised they need verbal to do the labs, as they are ordered for [facility].Will reach out to nurse for assistance and call back. Requesting some call his cell phone. <August 06, 2025, 15:27 - SHEBA Ernst> Pt calls again. States he as to leave and cannot wait any longer. He has a lunch truck driver waiting on him. Pt will call again next week (will be out of town until ). We will try to get this clarified before his appt. <August 11, 2025, 09:06 - SHEBA Ernst> Spoke with Maryjane at [facility] lab to discuss the 2 labs that need clarified. The GEORGE and the Immunoglobulin free. These 2 lab orders dont fully translate into their system. The choices for the GEORGE are: - Screen IFA with Reflex to Tite and Pattern -GEORGE Multiplex with Reflex to 11 Antibody [place] -GEORGE [place] (GEORGE, IFA with Reflex to Titer and Pattern, and Reflex to 11 Ab [place]) Choice for the Immunoglobulin are: -Raymer/Lambda Light Chains, Free with Ratio <August 11, 2025, 10:28 - SHEBA Ernst>new orders faxed to [facility]. * Kamron Solo MD - 08/06/2025 3:17 PM EDT I just reordered for [facility] so see if it went through electronically to them or if we need to fax the paper copy. Thanks! * SHEBA Ernst - 08/06/2025 3:17 PM EDT Call from pt regarding lab orders. Notified him all orders have been re-ordered to [facility]. Pt plans to have these completed tomorrow. Discussed upcoming appt on Saturday. Pt requests a refill order on Xanax. Will create encounter for Dr. Solo. No other concerns noted. Spoke with Maryjane at [facility] to confirm all lab orders are good. documented in this encounter Plan of Treatment DateTypeDepartmentCare Team (Latest Contact Info)Bybepporocb54/29/2025 1:00 PM EDTOffice Visit [facility] [address] [place] [address] NameTypePriorityAssociated DiagnosesOrder ScheduleC-reactive proteinLabRoutine Arthritis Expected: 08/12/2025 (Approximate), Expires: 11/10/2025omprehensive metabolic panelLabRoutine Stage 3a chronic kidney disease ([facility]) Expected: 08/12/2025 (Approximate), Expires: 11/10/2025Hemoglobin a1c with eag LabRoutine Type 2 diabetes mellitus with diabetic nephropathy, without long-term current use of insulin (HCC) Expected: 08/12/2025 (Approximate), Expires: 11/10/2025Lipid panelLabRoutine Pure hypercholesterolemia Expected: 08/12/2025 (Approximate), Expires: 11/10/2025PSALabRoutine Prostate cancer screening Expected: 08/12/2025 (Approximate), Expires: 11/10/2025Rheumatoid factorLab Routine Arthritis Expected: 08/12/2025 (Approximate), Expires: 11/10/2025Sedimentation rate, automatedLabRoutine Arthritis Expected: 08/12/2025 (Approximate), Expires: 11/10/2025Immunoglobulin free LT chains bloodLabRoutine Stage 3a chronic kidney disease ([facility]) Monoclonal paraproteinemia Expected: 08/12/2025 (Approximate), Expires: 11/10/2025Protein, total and protein electrophoresis with immunofixationLabRoutine Stage 3a chronic kidney disease ([facility]) Monoclonal paraproteinemia Expected: 08/12/2025 (Approximate), Expires: 11/10/2025TSHLabRoutine Fatigue, unspecified type Expected: 08/12/2025 (Approximate), Expires: 11/10/2025NALabRoutine Stage 3a chronic kidney disease ([facility]-HCC) Expected: 08/12/2025 (Approximate), Expires: 11/10/2025documented as of this encounter Visit Diagnoses Diagnosis Stage 3a chronic kidney disease ([facility])- Primary Type 2 diabetes mellitus with diabetic nephropathy, without long-term current use of insulin (HCC) Arthritis Unspecified arthropathy, site unspecified Pure hypercholesterolemia Prostate cancer screening Special screening for malignant neoplasm of prostate Fatigue, unspecified type Monoclonal paraproteinemia documented in this encounter Care Teams Team MemberRelationshipSpecialtyStart DateEnd Date Kamron Solo MD [address] [place] [address] PCP - GeneralInternal Medicine04/29/23 Kamron Solo MD [address] [place] [address] PCP - Carlos SMITH01/20/24 Jeanne Perdue LSW [address] [place] [address] Social WorkerFamily Dkgxummq72/12/23 Mart Henry MD [address] [place] [address], [address] [place] [address] Referring PhysicianNeurosurgery02/20/24 Jr. Terell Amor DO [address] [facility] [address] [place] [address] Referring PhysicianOrthopaedic Surgery02/20/24 Mark Anthony Heath MD [address] [place] [address] Referring PhysicianUrology06/17/24 [facility] Ophthalmology02/20/24documented as of this encounter
--- OUTSIDE RECORDS SUMMARY | 2025-08-13 20:18 | XMS_ITS | Clinical Summary ---
Author Organization [facility] Address [address] [place] [address] Care Team Providers Care [employer] Fitness Instructor Name Role Phone Kamron Solo MD Primary Care Provider Jeanne PerdueW Unavailable [phone] Mart Henry MD Unavailable Jr. Terell Amor DO Unavailable [phone] Kamron Solo MD Unavailable [phone] Mark Anthony Heath MD Unavailable [phone] Allergies Active AllergyReactionsCriticalityNoted UjsxMhbgaluzWrjzbxxdsSkqhcQto75/02/2024 Lower extremity edema Lisinopril-RrzvdbwktewrtymswzoWemawc18/27/2018 Other Reaction(s): Other foggy-headed , out of sorts MikjyqjtaFcr34/07/2023 Other Reaction(s): fatigue Medications MedicationSigDispense QuantityRefillsLast FilledStart DateEnd DateStatus ASPIRIN 81 MG chewable tablet 1 (one) time each day at the same time.Active propranolol LA (Inderal LA) 80 MG 24 hr capsule Indications:Atypical migraineTake 1 capsule (80 mg) by mouth in the morning. 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)Take 1 tablet (14 mg) by mouth in the morning. Take before meals. 90 tablet 5Active rosuvastatin (Crestor) 10 MG tablet Indications:History of TIA (transient ischemic attack)Take 1 tablet (10 mg) by mouth Daily At bedtime. 90 tablet 5Active HYDROcodone-acetaminophen ([place]) 5-325 MG tablet Indications:Primary osteoarthritis involving multiple jointsTake 1-2 tablets by mouth every 4 (four) hours if needed for severe pain 120 tablet 5Active ALPRAZolam (Xanax) 0.5 MG tablet Indications:MEGAN (generalized anxiety disorder),AnxietyTake 1 tablet (0.5 mg) by mouth every 8 (eight) hours if needed for anxiety 90 tablet 5Active ALPRAZolam (Xanax) 0.5 MG tablet Indications:MEGAN (generalized anxiety disorder),AnxietyTake 1 tablet (0.5 mg) by mouth every 8 (eight) hours if needed for anxiety 90 tablet /Discontinued(Reorder) HYDROcodone-acetaminophen ([place]) 5-325 MG tablet Indications:Primary osteoarthritis involving multiple jointsTake 1-2 tablets by mouth every 4 (four) hours if needed for severe pain 120 tablet /Discontinued(Reorder) Active Problems ProblemNoted DateDiagnosed DateGastroesophageal reflux disease without drpcepbvtfw61/07/2025Hyperparathyroidism, acqqmmtmbvs45/01/2024ervical sjousqduvk05/01/2024History of migraine zvtlufekz11/19/2024enal cyst07/31/2023 Benign prostatic hyperplasia without urinary gumcmvmanjd93/24/2023rimary /24/2023eripheral neuropathy due to metabolic awsuhxdi23/24/2023 Primary osteoarthritis involving multiple bdbprm7207/14/2023History of kidney mmrrqd6907/14/2023History of TIA (transient ischemic attack)07/14/2023AD (generalized anxiety disorder)07/14/2023Type 2 diabetes mellitus with diabetic hdyabcrepmd22/10/2023Stage 3a chronic kidney kaflwyq1304/17/2023Restless legs 04/17/2023Monoclonal /28/2023ure hypercholesterolemia 04/17/2023Essential jzkrgipsbhbw33/28/2023egeneration of intervertebral disc of lumbar idhejp7104/17/2023 Resolved Problems ProblemNoted DateDiagnosed DateResolved RnnnTwszqmrujdtjyi75/11/202310/11/2023 Spasm of back rzhlohl99 Encounters DateTypeDepartmentCare WshbZkgvcsnlxfy19/23/2025Refill [facility] [address] [place] [address] Kimberly Olivier LPN MEGAN (generalized anxiety disorder); Urkhznt3108/12/2025Telephone [facility] [address] [place] [address] Jeanne Perdue LSW Med Takujv5708/10/2025Refill [facility] [address] [place] [place] [address] Kamron Solo MD Primary osteoarthritis involving multiple tvtpmx8908/06/2025Patient Outreach [facility] [address] [place] [address] Jeanne Perdue LSW 08/05/2025Patient Outreach [facility] [address] [place] [place] [address] Jeanne Perdue LSW 07/13/[facility] [address] [place] [place] [address] Kamron Solo MD History of TIA (transient ischemic attack)07/13/[facility] [address] [place] [address] Kamron Solo MD Primary osteoarthritis involving multiple umcyxt4207/13/2025[facility] [address] [place] [address] Kamron Solo MD Type 2 diabetes mellitus with diabetic nephropathy, without long-term current use of insulin ([facility])07/09/2025Patient Outreach [facility] [address] [place] [place] [address] Jeanne Perdue, [facility] 06/17/2025Patient Outreach [facility] [address] [place] [address] Jeanne Perdue, [facility] 06/11/2025[facility] [address] [place] [place] [address] Kamron Solo MD History of TIA (transient ischemic attack)06/11/2025[facility] [address] [place] [address] Kamron Solo MD Type 2 diabetes mellitus with diabetic nephropathy, without long-term current use of insulin ([facility]); Primary osteoarthritis involving multiple mrxplm8805/17/2025Patient Outreach [facility] [address] [place] [place] [address] Jeanne Perdue, [facility] 05/16/2025[facility] [address] [place] [address] Kamron Solo MD MEGAN (generalized anxiety disorder) ; Nhxhrwe6605/15/2025[facility] [address] [place] [address] Soraya Soriano NP MEGAN (generalized anxiety disorder)05/15/2025[facility] [address] [facility] [address] [place] [address] Kamron Solo MD Type 2 diabetes mellitus with diabetic nephropathy, without long-term current use of insulin ([facility])05/15/2025[facility] [address] [facility] [address] [place] [address] Kamron Solo MD Primary osteoarthritis involving multiple lnkkkf8505/14/2025[facility] [address] [facility] [address] [place] [address] Kamron Solo MD MEGAN (generalized anxiety disorder) ; Anxietyfrom Last 3 Months Family History Medical HistoryRelationNameCommentsDiabetesBrotherBrotherHypertensionBrother BrotherNo Known ProblemsDaughterNo Known ProblemsFatherHypertensionMotherMother OmtphxwvFbjaEhtluqMhlcihtzIqqajsuOsvrfbvPnnkrbnb7OfgtkjQjqvexojCutrvvWkgkli Social History Tobacco UseTypesPacks/DayYears UsedDateSmoking Tobacco: FormerCigarettes [...] on one occasion?Never02/20/2024HQ-2 AnswerDate RecordedPatient Health Questionnaire-2 Gxcio902Sex and Gender InformationValueDate RecordedSex Assigned at PpzalKuxo67/07/2023 11:31 AM EDT Legal NryMysz8901/02/2023 11:19 PM EDTGender KxepmetaAlqn83/07/2023 11:31 AM EDT Sexual GnbussfdfzwGtzoxqb96/07/2023 11:31 AM EDT Last Filed Vital Signs Vital SignReadingTime TakenCommentsBlood Zibcbcta051/78002/08/2025 1:09 PM EDT Shixh190202/08/2025 1:09 PM POUMhnokixdddf51.3 ??C (97.3 ??F)07/22/2024 2:00 PM EDTRespiratory Rate--Oxygen Dpgiucynek57%02/08/2025 1:09 PM EDTInhaled Oxygen Concentration--Flebhd015 kg (232 lb)02/08/2025 1:09 PM UVIItpjvs874.8 cm (5' 10 )02/08/2025 1:09 PM EDTBody Mass Index33.29002/08/2025 1:09 PM EDT Plan of Treatment DateTypeDepartmentCare Team (Latest Contact Info)Sxkznnknvea84/29/2025 1:00 PM EDTOffice Visit [facility] [address] [place] [address] Health MaintenanceDue DateLast DoneCommentsCT Ncrpmpbgsvog1958Colonoscopy 1958Colorectal Cancer Pgahxqgdh1958FIT-DNA1958FIT1958 FOBT1958Medicare Annual Wellness (AWV)1960 7472Vkrolkxiyfzoh1958 Diabetes: Hemoglobin A1C, 10/28/2024, 08/10/2024, Additional history existsDiabetes: Retinopathy Lonuzlgeg74/04/800694/01/2023, 05/15/2021 Influenza Vaccine (#1)2025Pneumococcal Vaccine: 65+ Years (1 of 2 - PCV) 08/20/2025Postponed from 1977 (Patient Refused)Diabetes: Urine Protein Flcuvdfgl10, 07/26/2023, 07/17/2022, Additional history exists Procedures Procedure NamePriorityDate/TimeAssociated DiagnosisCommentsMICROALBUMIN / CREATININE URINE YYOIECkkebou32/17/2025 9:29 AM EDT HEMOGLOBIN Y1NWwlnuat91/17/2025 9:09 AM EDT COLOR FUNDUS PHOTOGRAPHY - OU - BOTH UJRPHzrrxfl00/26/2021 12:00 PM EDT from Last 3 Months or Most Recently Relevant to Health Maintenance Results * Microalbumin / creatinine urine ratio (02/04/2025 9:29 AM EDT)ComponentValue Ref RangeTest MethodAnalysis TimePerformed AtPathologist SignatureCREATININE, RANDOM ZGSTP40199 - 320 mg/dLQUESTALBUMIN, URINE3.6See Note: mg/dLQUEST Comment: Reference Range: Reference Range Not established ALBUMIN/CREATININE RATIO, RANDOM URINE21<30 mg/g creatQUESTComment: The ADA defines abnormalities in albumin excretion as follows: Albuminuria Category ?Result (mg/g creatinine) Normal to Mildly increased <30 Moderately increased ? 30-299 Severely increased > OR = 300 The ADA recommends that at least two of three specimens collected within a 3-6 month period be abnormal before considering a patient to be within a diagnostic category. Specimen (Source)Anatomical Location / LateralityCollection Method / Volume Collection TimeReceived Time02/04/2025 9:29 AM EDT02/04/2025 2:37 PM EDT Narrative [facility] - 02/05/2025 9:54 AM EDT SPLIT 02/04/2025 FROM [id number] Resulting Agency Comment Performing Organization Information ?Site ID: QPT ?Name: [facility] ?Address: [address] [place] [id number] ?Director: Ji Gutierrez MD Authorizing ProviderResult TypeResult StatusSoraya Soriano NPTIFFANIE URINE ORDERABLESFinal ResultPerforming OrganizationAddressCity/State/ZIP CodePhone Number [facility] * (ABNORMAL) Hemoglobin A1c (02/04/2025 9:09 AM EDT)ComponentValueRef RangeTest MethodAnalysis TimePerformed AtPathologist SignatureHemoglobin A1C6.9(H)<5.7 % QUESTComment: For someone without known diabetes, a hemoglobin A1c value of 6.5% or greater indicates that they may have diabetes and this should be confirmed with a follow-up test. For someone with known diabetes, a value <7% indicates that their diabetes is well controlled and a value greater than or equal to 7% indicates suboptimal control. A1c targets should be individualized based on duration of diabetes, age, comorbid conditions, and other considerations. Currently, no consensus exists regarding use of hemoglobin A1c for diagnosis of diabetes for children. Specimen (Source)Anatomical Location / LateralityCollection Method / Volume Collection TimeReceived Time02/04/2025 9:09 AM EDT02/04/2025 9:13 AM EDT Narrative [facility] - 02/08/2025 12:54 PM EDT PATIENT UNABLE TO VOID; ADVISED TO RETURN FOR COLLECTION. Resulting Agency Comment Performing Organization Information ?Site ID: QPT ?Name: [facility] ?Address: [address] [place] [address], [address] [place] [phone] ?Director: Ji Gutierrez MD Authorizing ProviderResult TypeResult Ines Soriano [facility] BLOOD ORDERABLESFinal ResultPerforming OrganizationAddressCity/State/ZIP CodePhone Number [facility] * Color Fundus Photography - OU - Both Eyes (05/15/2021 12:00 PM EDT)Anatomical RegionLateralityModalityHeadFundus PhotographySpecimen (Source)Anatomical Location / LateralityCollection Method / VolumeCollection TimeReceived Time 05/15/2021 12:00 PM EDT Narrative 05/15/2021 12:00 PM EDT PERFORMED AT [facility] LOCATION:[id number] [facility] Procedure Note CONVERSION, GENERIC - 03/06/2023 PERFORMED AT [facility] LOCATION:[id number] [facility] Authorizing ProviderResult TypeResult J Carlos Solo MDOPHTH PHOTOGRAPHY Final Result from Last 3 Months or Most Recently Relevant to Health Maintenance Insurance Care Teams Team MemberRelationshipSpecialtyStart DateEnd Kamron Solo MD [address] [place] [address] PCP - GeneralInternal Medicine04/29/23 Kamron Solo MD [address] [place] [address] PCP - [place]01/20/24 Jeanne Perdue LSW [address] [place] [address] Social WorkerFamily Oyehnxfj91/12/23 Mart Henry MD [address] [place] [address], [address] [place] [address] Referring PhysicianNeurosurgery02/20/24 Jr. Terell Amor DO [address] [facility] [address] [place] [address] Referring PhysicianOrthopaedic Surgery02/20/24 Mark Anthony Heath MD [address] [place] [address] Referring PhysicianUrology06/17/24 [facility] Ophthalmology02/20/24
--- OUTSIDE RECORDS SUMMARY | 2025-08-13 20:18 | XMS_ITS | Encounter Summary ---
Author Organization [facility] Address [address] [place] [address] Care Team Providers Care Wool Fleece Grader Name Role Phone Kamron Solo MD Primary Care Provider Jeanne Perdue Unavailable Mart Henry MD Unavailable Jr. Terell Amor DO Unavailable [phone] Kamron Solo MD Unavailable [phone] Mark Anthony Heath MD Unavailable [phone] Encounter Details DateTypeDepartmentCare Team (Latest Contact Info)Jxmmqtcbkns94/16/2025Patient Outreach [facility] [address] [address] Jeanne Perdue, WASTE/MATERIALS EXCHANGE SPECIALIST [address] [facility] [address] [place] [address] Social History Tobacco UseTypesPacks/DayYears UsedDateSmoking Tobacco: FormerCigarettes [...] on one occasion?Never02/20/2024HQ-2 AnswerDate RecordedPatient Health Questionnaire-2 Xmoqv844Sex and Gender InformationValueDate RecordedSex Assigned at HgyasQdop72/07/2023 11:31 AM EDT Legal DzpZdlw5801/02/2023 11:19 PM EDTGender LfcifhanNllp48/07/2023 11:31 AM EDT Sexual TzgsdmmqkyfCmkxkwi66/07/2023 11:31 AM EDTdocumented as of this encounter Progress Notes * SHEBA Ernst - 08/05/2025 10:27 AM EDT Monthly outreach completed. Pt reports he has been doing okay. Reports good days and bad days. Admits to feeling more off balance lately and reports some stumbling. Pt reports he did have a fall a month or so ago when getting out of bed too quickly. He now sits for a few minutes before rising. Discussed physical therapy, but pt states he has done this before. Pt also feels he forgets a little more than he did a year ago. He is not concerned about his safety, just says he sometimes forgets hisnighttime meds. Overall he feels he managing well, and he denies any significant changes. Reminded pt of upcoming ov 08/18. He is aware of lab orders, and he would like to have these done at [facility]. Will fax orders. Pt plans to have these done tomorrow morning. He is appreciative of the call. documented in this encounter Plan of Treatment DateTypeDepartmentCare Team (Latest Contact Info)Vyuzbnikhlf64/29/2025 1:00 PM EDTOffice Visit [facility] [place] [facility] [address] [place] [address] documented as of this encounter Visit Diagnoses Diagnosis Stage 3a chronic kidney disease ([facility])- Primary Type 2 diabetes mellitus with diabetic nephropathy, without long-term current use of insulin ([facility]) documented in this encounter Care Teams Team MemberRelationshipSpecialtyStart DateEnd Kamron Solo MD [address] [place] [place] [address] PCP - GeneralInternal Medicine04/29/23 Kamron Solo MD [address] [place] [address] PCP - [place]01/20/24 Jeanne Perdue, WASTE/MATERIALS EXCHANGE SPECIALIST [address] [place] [address] Social WorkerFasaint margaret's hospital for [facility] Xxvfvzsx35/12/23 Mart Henry MD [address] [place] [address], [address] [place] [address] Referring PhysicianNeurosurgery02/20/24 Jr. Terell Aomr DO [address] [facility] [address] [place] [address] Referring PhysicianOrthopaedic Surgery02/20/24 Mark Anthony Heath MD [address] [place] [address] Referring PhysicianUrology06/17/24 Eye Center [facility] Ophthalmology02/20/24documented as of this encounter
--- OUTSIDE RECORDS SUMMARY | 2025-08-13 20:18 | XMS_ITS | Encounter Summary ---
Author Organization [facility] Address [address] [place] [address] Care Team Providers Care Cabin Crew Name Role Phone Kamron Solo MD Primary Care Provider [phone] Jeanne Perdue Unavailable Mart Henry MD Unavailable Jr. Terell Amor DO Unavailable Kamron Solo MD Unavailable [phone] Mark Anthony Heath MD Unavailable [phone] Reason for Visit * ReasonOnset DateCommentsMed Qmpdst2708/12/2025 Encounter Details DateTypeDepartmentCare Team (Latest Contact Info)Bvcnedphjvm48/23/2025Refill [facility] [address] [place] [address] Kimberly Olivier LPN [address] [facility] [address] [place] [address] MEGAN (generalized anxiety disorder); Anxiety Social History Tobacco UseTypesPacks/DayYears UsedDateSmoking Tobacco: FormerCigarettes [...] on one occasion?Never02/20/2024HQ-2 AnswerDate RecordedPatient Health Questionnaire-2 Pkqzl919Sex and Gender InformationValueDate RecordedSex Assigned at QizkwTicr62/07/2023 11:31 AM EDT Legal QjgLndi7401/02/2023 11:19 PM EDTGender RiqocvouJbew40/07/2023 11:31 AM EDT Sexual PnwbyvgwzqcJvscvzr17/07/2023 11:31 AM EDTdocumented as of this encounter Progress Notes * Kimberly Olivier LPN - 08/12/2025 3:32 PM EDT Refill request for Xanax. Last filled 05/17. Next office visit is 08/18. Medication is loaded. documented in this encounter Plan of Treatment DateTypeDepartmentCare Team (Latest Contact Info)Uwyoxcvupvd85/29/2025 1:00 PM EDTOffice Visit [facility] [place] [facility] [address] [facility] [address] [place] [address] documented as of this encounter Visit Diagnoses Diagnosis MEGAN (generalized anxiety disorder) Generalized anxiety disorder Anxiety Anxiety state, unspecified documented in this encounter Care Teams Team MemberRelationshipSpecialtyStart DateEnd Kamron Solo MD [address] [place] [address] PCP - GeneralInternal Medicine04/29/23 Kmaron Solo MD [address] [facility] [address] [place] [address] PCP - Carlos SMITH01/20/24 Jeanne Perdue LSW [address] [facility] [address] [place] [address] Social WorkerFamily Vnbyrknt14/12/23 Mart Henry MD [address] [place] [address], [address] [place] [address] Referring PhysicianNeurosurgery02/20/24 Jr. Terell Amor DO [address] [place] [address] [address] [place] [address] Referring PhysicianOrthopaedic Surgery02/20/24 Mark Anthony Heath MD [address] [place] [address] Referring PhysicianUrology06/17/24 Eye [facility] Ophthalmology02/20/24documented as of this encounter
--- OUTSIDE RECORDS SUMMARY | 2025-08-13 20:18 | XMS_ITS | Encounter Summary ---
Author Organization [facility] Address [address] [place] [address] Care Team Providers Care Embroidery Finisher Name Role Phone Kamron Solo MD Primary Care Provider Jeanne Perdue Unavailable Mart Henry MD Unavailable Jr. Terell Amor DO Unavailable Kamron Solo MD Unavailable [phone] Mark Anthony Heath MD Unavailable [phone] Reason for Visit * ReasonOnset DateCommentsMed Qlvgwi6908/10/2025 Encounter Details DateTypeDepartmentCare Team (Latest Contact Info)Pzohaquojvv51/21/2025Refill [facility] [address] [place] [address] Kamron Solo MD [address] [facility] [address] [place] [address] Primary osteoarthritis involving multiple joints Social History Tobacco UseTypesPacks/DayYears UsedDateSmoking Tobacco: FormerCigarettes [...] on one occasion?Never02/20/2024HQ-2 AnswerDate RecordedPatient Health Questionnaire-2 Urkst337Sex and Gender InformationValueDate RecordedSex Assigned at UlspgLxgo83/07/2023 11:31 AM EDT Legal EjjGcpv5301/02/2023 11:19 PM EDTGender DntrbyzoYaup06/07/2023 11:31 AM EDT Sexual SzmumfwpyurDffwjbf72/07/2023 11:31 AM EDTdocumented as of this encounter Plan of Treatment DateTypeDepartmentCare Team (Latest Contact Info)Cbkyxvnwyeo29/29/2025 1:00 PM EDTOffice Visit [facility] [place] [facility] [address] [place] [address] documented as of this encounter Visit Diagnoses Diagnosis Primary osteoarthritis involving multiple joints documented in this encounter Care Teams Team MemberRelationshipSpecialtyStart DateEnd Date Kamron Solo MD [address] [place] [place] [address] PCP - GeneralInternal Medicine04/29/23 Kamron Solo MD [address] [place] [address] PCP - [place]01/20/24 Jeanne Perdue LSW [address] [place] [address] Social WorkerFaboston home for incurables Okcwvwtb14/12/23 Mart Henry MD [address] [place] [address], [address] [place] [address] Referring PhysicianNeurosurgery02/20/24 Jr. Terell Amor DO [address] [facility] [address] [place] [address] Referring PhysicianOrthopaedic Surgery02/20/24 Mark Anthony Heath MD [address] [place] [address] Referring PhysicianUrology06/17/[address] [facility] Ophthalmology02/20/24documented as of this encounter
--- OUTSIDE RECORDS SUMMARY | 2025-08-13 20:19 | XMS_ITS | CCD ---
Author Organization [facility] Inform ion Partnership [facility] Care Team Providers Care Dementia Program Director Name Role Phone JOSHUA, DR ALFREDO Street Consulting Unavailable LISETTE, DR CHANG Attending Unavailable LISETTE, DR CHANG Admitting Unavailable LUIS, DR CULVER Primary Care Unavailable LISETTE, DR CHANG Consulting Unavailable DENIZ FAN Consulting Unavailable Mart Henry Unavailable [facility], . Primary Care Physician [phone] [facility] Primary Care Provider MD Mart Henry Attending Provider DO Terell Amor Jr Attending Provider DO César Arreaga Emergency Provider [phone] MD Ganga Hernandez Primary Care Provider MD Mark Anthony Heath Attending Provider [phone] MD Zheng Iraheta Attending Provider [facility] Primary Care Provider [phone] MD Mart Henry Attending Provider Brandon Castañeda Unavailable MD Ganga Hernandez Primary Care Provider MD Zheng Iraheta Attending Provider DO Spike Estrada Emergency Provider MD Shaila Bowen Admit Provider MD Shaila Bowen Attending Provider DO Mikey Rose Other Provider DO Terell Amor Jr Attending Provider MD Ganga Hernandez Primary Care Provider [phone] MD Mark Anthony Heath Attending Provider DO Spike Estrada Emergency Provider Unavailab Ganga Ramirez Unavailable MD Ganga Hernandez Primary Care Provider MD Deniz Lacey Emergency Provider [phone] MD Lilia Bowers Admit Provider MD Lilia Bowers Attending Provider MARIA EUGENIA Evans Other Provider Unavailable DO Lars Jefferson Other Provider MD Nilo Roach Other Provider MD Demarco Justinrick Other Provider MD Joann Hopson Other Provider MD Kenny Alexander Other Provider CYDNEY Balbuena Other Provider MD Sarita Johnson Other Provider MD Ira Do Najeeb Other Provider MD Sandy Hamilton Other Provider Juan [facility] Jeanne Guzman Other Provider MD Roxy Sandoval Other Provider MD Mark Anthony Heath Attending Provider DEMARCO JEFFERSON Attending Unavailable Dr. Ganga Hernandez Primary Care Unavailab DEMARCO Sierra Attending Unavailable Dr. Ganga Hernandez Primary Care Unavailab MD Ganga Ramirez Primary Care Provider MD Mark Anthony Heath Attending Provider DO César Arreaga Emergency Provider MD Shaila Bowen Admit Provider MD Shaila Bowen Attending Provider DO Mikey Rose Other Provider DO Jose Hernandez Emergency Provider [phone] Dr. Ganga Hernandez Primary Care Unavailab sanna Jefferson, Dr. Demarco Bauer Attending Anyaco eze Hernandez, [facility], Dr. Demarco Bauer Attending Kim Hernandez, Dr. [facility], Dr. Demarco Bauer Referring MD Ganga Kline Primary Care Provider CYDNEY Mccracken Emergency Provider MD Sen Neri Admit Provider MD Norris Vincent Other Provider MD Mark Anthony Heath Other Provider [phone] MD Rina Henry Other Provider MD Perez Rivera Other Provider [phone] MD Norris Massey Other Provider [phone] MD Hao Coughlin Other Provider MD Kevan Mckee Other Provider [phone] TARA Mabry-C Cynthia Silverio Other Provider [facility]- Zainab Other Provider MD Jonnie Wright P Attending Provider [phone] MD Shaniqua Castro Other Provider MD Ganga Hernandez Primary Care Provider DO Marnie Mccormick Attending Provider [phone] GANGA HERNANDEZ Primary Care Physician Ganga Hernandez MD Primary Care Provider [phone] Jeanne Shukla Unavailable [phone] Mart Henry MD Unavailable Jr. Terell Amor DO Unavailable Ganga Hernandez MD Unavailable Ganga Hernandez MD Unavailable Mark Anthony Heath MD Unavailable MD Shaniqua Duarte Emergency Provider DO Amrik Rojas Admit Provider DO Amrik Rojas Attending Provider Carl HAYS, Mart Unavailable MD [employer] Cadena Attending Provider HILL, YUE C Referring Unavailable HILL, YUE C Primary Care Unavailable HILL, YUE C Referring Unavailable HILL, YUE C Primary Care Unavailable HILL, YUE C Referring Unavailable HILL, YUE C Primary Care Unavailable HILL, YUE C Referring Unavailable HILL, YUE C Primary Care Unavailable HILL, YUE C Referring Unavailable HILL, YUE C Primary Care Unavailable HILL, YUE C Referring Unavailable HILL, YUE C Primary Care Unavailable HILL, YUE C Referring Unavailable HILL, YUE C Primary Care Unavailable HILL, YUE C Referring Unavailable HILL, YUE C Primary Care Unavailable HILL, YUE C Referring Unavailable HILL, YUE C Primary Care Unavailable HILL, YUE C Referring Unavailable HILL, YUE C Primary Care Unavailable HILL, YUE C Referring Unavailable HILL, YUE C Primary Care Unavailable HILL, YUE C Referring Unavailable HILL, YUE C Primary Care Unavailable HILL, YUE C Referring Unavailable HILL, YUE C Primary Care Unavailable HILL, YUE C Referring Unavailable HILL, YUE C Primary Care Unavailable HILL, YUE C Referring Unavailable HILL, YUE C Primary Care Unavailable HILL, YUE C Referring Unavailable HILL, YUE C Primary Care Unavailable HILL, YUE C Referring Unavailable HILL, YUE C Primary Care Unavailable HILL, YUE C Referring Unavailable HILL, YUE C Primary Care Unavailable HILL, YUE C Referring Unavailable HILL, YUE C Primary Care Unavailable HILL, YUE C Referring Unavailable HILL, YUE C Primary Care Unavailable HILL, YUE C Referring Unavailable HILL, YUE C Primary Care Unavailable HILL, YUE C Referring Unavailable HILL, YUE C Primary Care Unavailable HILL, YUE C Referring Unavailable HILL, YUE C Primary Care Unavailable Hill MOI, Yue C Primary Care Provider Carl HAYS, Mart Unavailable Ganga Hernandez MD Unavailable Ganga Hernandez MD Primary Care Provider [phone] Olesya Hutton MD Emergency Provider Qamar HAYS, Maurice Admit Provider Qamar HAYS, Maurice Attending Provider Mikey Rose DO Other Provider Ryan HAYS, Krystle Other Provider Gwyn Dia MD Other Provider Kandy Khalil APRN Other Provider Brian Corado DO Other Provider Amrit Fleming MD Other Provider Norris Vincent Consulting Unavailable Jonnie Wright Attending Unavailable Sen Neri Admitting Unavailable Renfrew, Ganga Primary Care Unavailable Mark Anthony Heath Consulting Unavailable Rina Henry Consulting Unavailable Perez Rivera Consulting Unavailable Norris Massey Consulting Unavailable Hao Coughlin Consulting Unavailable Abel-Kevan Parmar Consulting Unavail able Cynthia Mabry Consulting Unavailable Zainab Gorman Consulting Unavailable Shaniqua Castro Consulting Unavailable Amrik Rojas Admitting UnavailTaqueria Du Attending Unavailable Renfrew, Ganga Primary Care Unavailable Mikey Rose Consulting Unavailable Maurice Foote Admitting Unavailable Maurice Foote Attending Unavailable Renfrew, Ganga Primary Care Unavailable Krystle Davis Consulting Unavailable Gwyn Dia Consulting Unavailable Kandy Khalil Consulting Unavailable Brian Corado Jr Consulting UnavailAmrit Russo Consulting Unavaila ble Ly, Marnie L Admitting Unavailable Ly, Marnie L Attending Unavailable Renfrew, Ganga Primary Care Unavailable Mart Henry MD Unavailable GANGA HERNANDEZ Attending Unavailable GANGA HERNANDEZ Attending Unavailable GANGA HERNANDEZ Attending Unavailable GANGA HERNANDEZ Referring Unavailable SORAYA HAWK Attending Unavailable GANGA HERNANDEZ Referring Unavailable TANJA SULLIVAN Attending Unavailable VAMSHI JIMÉNEZ Attending Unavailable SORAYA HAWK Attending Unavailable GANGA HERNANDEZ Referring Unavailable Jeanne Shukla Unavailable [phone] Mark Anthony HEATH Attending Unavailable Ganga Hernandez MD Primary Care Provider [phone] Mart Henry MD Unavailable Jr. Terell Amor DO Unavailable Mark Anthony Heath MD Unavailable [phone] Allergies Allergy ClassificationReported Allergen(s)Allergy TypeDate of OnsetReaction(s) Facility (20 sources)busPIRoneDrug [id number] Work Phone: (20 sources)hydroCHLOROthiazide / LisinoprilDrug Shyddiv22-27-2025[facility] (20 sources)metFORMINDrug [id number] (1 source)No Known Medication Allergies; Translations: [No Known Medication Allergies]Propensity to adverse reactions (disorder)[facility] Medications Current Medications MedicationDrug Class(es)DatesSig (Normalized)Sig (Original)acetaminophen 325 mg / HYDROcodone bitartrate 5 mg oral tablet (20 sources)Opioid AgonistStart: 79-11-6949qcpm 1-2 tablets by mouth every four hours for painHYDROcodone-acetaminophen (Fortine) 5-325 MG tablet Indications: Primary osteoarthritis involving multiple joints Take 1-2 tablets by mouth every 4 (four) hours if needed for severe pain 120 tablet 08/12/2025 ActiveStart: 05-17-2025 End: 40-57-0980kjmh 1-2 tablets by mouth every four hours for painHYDROcodone- acetaminophen (Fortine) 5-325 MG tablet Indications: Primary osteoarthritis involving multiple joints Take 1-2 tablets by mouth every 4 (four) hours if needed for severe pain 120 tablet 07/13/2025 08/10/2025 Discontinued (Reorder) Start: 04-19-2025 End: 65-89-2505estx 1-2 tablets by mouth every four hours for painHYDROcodone- acetaminophen (Fortine) 5-325 MG tablet Indications: Primary osteoarthritis involving multiple joints Take 1-2 tablets by mouth every 4 (four) hours if needed for severe pain 120 tablet 05/17/2025 ActiveStart: 03-11-2025 End: 27-59-0801evsz 1-2 tablets by mouth every four hours for painHYDROcodone- acetaminophen (Fortine) 5-325 MG tablet Indications: Primary osteoarthritis involving multiple joints Take 1-2 tablets by mouth every 4 (four) hours if needed for severe pain 120 tablet 03/11/2025 04/16/2025 Discontinued (Reorder) Start: 01-08-2025 End: 82-68-1543dpkp 1-2 tablets by mouth every four hours for painHYDROcodone- acetaminophen (Fortine) 5-325 MG tablet Indications: Primary osteoarthritis involving multiple joints Take 1-2 tablets by mouth every 4 (four) hours if needed for severe pain 120 tablet 02/08/2025 ActiveStart: 06-10-2024 End: 65-47-3757bakq 1-2 tablets by mouth every four hours for painHYDROcodone- acetaminophen (Fortine) 5-325 MG tablet Indications: Primary osteoarthritis involving multiple joints Take 1-2 tablets by mouth every 4 (four) hours if needed for severe pain 120 tablet 12/11/2024 ActiveStart: 99-70-2417lnqi 1 tablet by mouth every six hoursacetaminophen-hydrocodone 325 mg-5 mg oral tablet tab(s), Oral, q6hr, Refill(s) 0 Start Date: 03/12/23 Status: OrderedStart: 15-71-7451uqiu 1 tablet by mouth twice dailyHydrocodone-Acetaminophen Active 1 TAB PO Twice daily October 02, 2022 12:00am Hip painStart: 36-46-6527sqwl 1 tablet by mouth twice daily as neededHYDROcodone-Acetaminophen 5-325 MG 1 tablet as needed orally twice daily for 30 days G89.29 Chronicpain Aug, Active Start: 07-26-2022 End: 46-49-1597tfqw 1 tablet by mouth every six hours as needed for pain Hydrocodone-Acetaminophen 5-325 mg tablet Discontinued 1 TAB PO Q6H as needed for pain 28 2021October 02, 2022 1:11pmStart: 05-19-2022 End: 06-33-3379njlr 1 tablet by mouth every four to six hours as needed for pain Hydrocodone-Acetaminophen 5-325 mg tablet Active 1 - 2 TAB PO EVERY 4-6 HOURS as needed for Pain December 31etaminophen 325 mg / oxyCODONE hydrochloride 5 mg oral tablet (1 source)Opioid AgonistStart: 05-22-2022 End: 38-35-4139gybk 1 tablet by mouth every four hours for painacetaminophen- oxycodone 325 mg-5 mg oral tablet 1 tab(s), Oral, q4hr for pain for 3 day(s), 12 tab(s), Refill(s) 0, N20.0, [facility] [id number], 182, cm, 05/22/22 11:13:00 EDT, Height/Length Dosing, 114, kg, 05/22/22 11:13:00 EDT, Weight Dosing Start Date: 05/22/22 Stop Date: 05/25/22 Status: OrderedALPRAZolam 0.5 mg oral tablet (20 sources)BenzodiazepineStart: 01-11-2025 End: 86-59-5597hwub 1 tablet by mouth every eight hours for anxietyALPRAZolam (Xanax) 0.5 MG tablet Indications: MEGAN (generalized anxiety disorder) , Anxiety Take 1 tablet (0.5 mg) by mouth every 8 (eight) hours if needed for anxiety 90 tablet 2 08/12/2025 ActiveStart: 06-07-2023 End: 48-62-7974urjt 1 tablet by mouth every eight hours as needed for anxiety Alprazolam 0.5 mg tablet Active 0.5 MG PO Q8H as needed for Anxiety 9 3 December 31, 2024 2:30pmamitriptyline hydrochloride 25 mg oral tablet (6 sources)Tricyclic AntidepressantAmitriptyline HCl 25 MG Oral for 30 Active amLODIPine 5 mg oral tablet (20 sources)Dihydropyridine Calcium Channel BlockerStart: 87-90-6033udrz 1 tablet by mouth once dailyamLODIPine (Norvasc) 5 MG tablet Indications: Essential hypertension Take 1 tablet (5 mg) by mouth Daily 90 tablet 3 09/15/2024 Activeaspirin 81 mg oral tablet (20 sources)Platelet Aggregation Inhibitor, Nonsteroidal Anti-inflammatory Drug Start: 24-88-0254jrsg 1 capsule by mouth once daily in the morningAspirin 81 mg Capsule Active 81 MG PO Every morning October 02, 2022 1:00amStart: 11-06-2018 End: 73-04-8713hbpz 1 tablet by mouth once dailyAspirin 81 mg Tablet,Delayed Release (Dr/Ec) Discontinued 81 MG PO Daily 30 Brittanie 17th, 2019 1:00am May 24, 2022 1:00pmASPIRIN 81 MG chewable tablet 1 (one) time each day at the same time. Activeatorvastatin 40 mg oral tablet (20 sources)HMG-CoA Reductase InhibitorStart: 69-37-6811jvvi 1 tablet by mouth at bedtimeatorvastatin (Lipitor) 40 MG tablet Indications: Pure hypercholesterolemia (CMS/HCC) Take 1 tablet (40 mg) by mouth at bedtime 90 tablet 3 09/07/2024 ActiveStart: 11-06-2018 End: 97-79-3778tozu 1 tablet by mouth once daily in the eveningAtorvastatin (Lipitor) 40 mg tablet Active 40 MG PO Every evening July 12, 2022 1:24pm Start: 11-04-2018 End: 80-62-4554nmtb 1 tablet by mouth once dailyAtorvastatin 10 mg Tablet Discontinued 10 MG PO Daily November 04, 2018 1:00am November 06, 2018 2:03pm Celebrate Multivitamin oral capsule (4 sources)Start: 70-54-6752aiyx 1 capsule by mouth once dailyCelebrate Multivitamin oral capsule 1 cap(s), Oral, Daily, Prophylaxis Start Date: 10/31/20 Status: Orderedcephalexin 500 mg oral capsule (20 sources)Cephalosporin AntibacterialStart: 06-05-2024 End: 61-10-3182qqys 1 capsule by mouth in the morningcephalexin (Keflex) 500 MG capsule Take 500 mg by mouth in the morning and 500 mg before bedtime. 06/17/2024 DiscontinuedStart: 05-19-2022 End: 68-15-2311hjyz 1 capsule by mouth twice dailyCephalexin 500 mg capsule Discontinued 500 MG PO Twice daily 14 May 19, 2022 12:00am June 15, 2022 11:56amStart: 03-16-2021 End: 84-52-9415sbta 1 capsule by mouth three times dailyCephalexin 500 mg capsule Discontinued 500 MG PO Three times daily March 16, 2021 12:00am May 07, 2022 1:33pmciprofloxacin 500 mg oral tablet (20 sources)Quinolone AntimicrobialStart: 31-29-7661Sxmff 500 mg Tab See Instructions, Take 1 tab day prior to procedure and 1 tab day of procdure - aft erwards, # 2 tab(s), Refills(s) 0, Pharmacy: [id number], 180, cm, 07/21/24 11:26:00EDT, Height/Length Dosing, 111.5, kg, 07/21/24 11:26:00 EDT, Weight Dosing Start Date: 07/30/24 Status: OrderedStart: 06-15-2022 End: 93-82-1824xrsz 1 tablet by mouth every two hoursCiprofloxacin Hcl (Cipro) 500 mg tablet Discontinued 500 MG PO Q12H June 15, 2022 12:00am July 12, 2022 1:24pm administer dose at least 2 hrs before/6 hrs after dairy products, calcium,zinc, and/or iron-containing productsStart: 80-11-5949kxms 1 tablet by mouth every two hoursCiprofloxacin Hcl (Cipro) 500 mg tablet Active 500 MG PO Q12H June 15, 2022 12:00am administer dose at least 2 hrs before/6 hrs after dairy products, calcium, zinc, and/or iron-containing produ ctsStart: 38-12-0788bzaf 1 tablet by mouth every two hoursCiprofloxacin Hcl (Cipro) 500 mg tablet Active 500 MG PO Q12H June 15, 2022 12:00am administer dose at least 2 hrs before/6 hrs after dairy products, calcium, zinc, and/or iron-containing productsStart: 00-32-3655folp 1 tablet by mouth every two hoursCiprofloxacin Hcl (Cipro) 500 mg tablet Active 500 MG PO Q12H June 15, 2022 12:00am administer dose at least 2 hrs before/6 hrs after dairy products, calcium, zinc, and/or iron-containing productsStart: 05-24-2022 End: 73-71-4007abkz 1 tablet by mouth every two hoursCiprofloxacin Hcl (Cipro) 500 mg tablet Discontinued 500 MG PO Q12H May 24, 2022 12:00am June 15, 2022 11:56am administer dose at least 2 hrs before/6 hrs after dairy products, calcium, zinc, and/or iron-containing productsDULoxetine 30 mg delayed release oral capsule (20 sources)Serotonin and Norepinephrine Reuptake InhibitorStart: 10-28-2024 End: 09-04-7731lcdn 1 capsule by mouth once dailyDULoxetine (Cymbalta) [address] capsule Indications: MEGAN (generalized anxiety disorder) TAKE 1 CAPSULE BY MOUTH EVERY DAY; DO NOT CRUSH OR CHEW 30 capsule 3 05/17/2025 Activeergocalciferol 1.25 mg oral capsule (20 sources)Provitamin D2 CompoundStart: 91-74-7216Jwqtymscsmgqns (Vitamin D2) (Vitamin D2) 1,250 mcg (50,000 unit) capsule Active 21830 UNIT PO everyweek August 10, 2024 12:00amStart: 07-15-2024 End: 27-88-1006vqcw 1 capsule by mouth every weekergocalciferol (Vitamin D-2) 1.25 MG (40930 UT) capsule Indications: Vitamin D deficiency Take 1 capsule (1.25 mg) by mouth 1 (one) time per week 12 capsule 2 10/28/2024 ActiveStart: 34-73-6241bqbm 1 capsule by mouth every weekergocalciferol (Vitamin D-2) 1.25 MG (81251 UT) capsule Indications: Vitamin D deficiency Take 1 capsule (1.25 mg) by mouth 1 (one) time per week 12 capsule 2 10/01/2023 Activeescitalopram 20 mg oral tablet (4 sources)Serotonin Reuptake InhibitorStart: 06-09-8134xuob 1 tablet by mouth once dailyLexapro 20 mg Tab 20 mg = 1 tab(s), Oral, Daily, # 30 tab(s), Refills(s) 0 Start Date: 03/12/23 Status: Orderedglimepiride 1 mg oral tablet (20 sources)SulfonylureaStart: 05-07-2024 End: 73-15-4195ttmb 1 tablet by mouth once daily at mealtimeglimepiride (Amaryl) 1 MG tablet Indications: Type 2 diabetes mellitus with diabetic nephropathy, 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) TAKE 1 TABLET BY MOUTH EVERY MORNING WITH A MEAL 270 tablet 05/17/2025 ActiveLORazepam 0.5 mg oral tablet (4 sources)BenzodiazepineStart: 16-74-1260ngeu 2 tablets by mouth every eight hoursAtivan 0.5 mg Tab mg tab(s), Oral, q8hr, Refills(s) 0 Start Date: 03/12/23 Status: Orderedtake 1-2 tablets by mouth every eight hoursLORazepam 0.5 MG Oral Tablet TAKE 1 - 2 TABLETS EVERY 8 HOURS Quantity: 0 Refills: 0 Ordered: 2022 DO Activelosartan potassium 100 mg oral tablet (20 sources)Angiotensin 2 Receptor BlockerStart: 02-13-2231srdm 1 tablet by mouth once daily in the morninglosartan (Cozaar) 100 MG tablet Indications: Essential hypertension TAKE 1 TABLET BY MOUTH EVERY MORNING 100 tablet 3 10/07/2024 ActiveStart: 10-19-2020 End: 42-83-6354mhhd 1 tablet by mouth once daily in the morningLosartan 100 mg tablet Discontinued 100 MG PO Every morning October 02, 2022 1:00am May 1:48pmStart: 11-08-2018 End: 06-94-4604unjd 2 tablets by mouth once dailyLosartan 50 mg tablet Discontinued 100 MG PO Daily May 07, 2022 1:35pm October 02, 2022 1:11pm Start: 11-08-2018 End: 46-63-8931sbln 100 mg by mouth once dailyLosartan Discontinued 100 MG PO Daily May 07, 2022 1:35pm October 02, 2022 1:11pmStart: 11-04-2018 End: 86-38-2221pirz 1 tablet by mouth once dailyLosartan 50 mg Tablet Discontinued 50 MG PO Daily November 04, 2018 1:00am November 08, 2018 11:07am methylPREDNISolone 4 mg oral tablet (2 sources)CorticosteroidStart: 59-35-2193Bwfzct (Luis Miguel) 4 MG as directed Orally for 6 days Mar, Activemultivitamin (THERAGRAN) tablet (20 sources)Start: 97-94-0167elfxfcvygqic (THERAGRAN) tablet Take by mouth. 10/31/2020 Activeomeprazole 20 mg delayed release oral capsule (20 sources)Proton Pump InhibitorStart: 04-21-2024 End: 33-09-3902kujc 1 capsule by mouth once dailyomeprazole (PriLOSEC) [address] capsule Indications: Nausea Take 1 capsule (20 mg) by mouth Daily Donot crush or chew. 30 capsule 5 04/21/2024 10/28/2024 Discontinued (Therapy completed) promethazine hydrochloride 25 mg oral tablet (2 sources)PhenothiazineStart: 07-22-2024 End: 84-15-5470myen 1 tablet by mouth every eight hours for nauseapromethazine (Phenergan) 25 MG tablet Indications: Nausea and vomiting, unspecified vomiting type Take 1 tablet (25 mg) by mouth every 8 (eight) hours if needed for nausea or vomiting for up to 5 days 15 tablet 07/22/2024 07/27/2024 Zcfgcg73 hr propranolol hydrochloride 80 mg extended release oral capsule (20 sources)beta-Adrenergic BlockerStart: 24-58-3707jzdk 1 capsule by mouth every twenty-four hours in the morningpropranolol LA (Inderal LA) 80 MG 24 hr capsule Indications: Atypical migraine Take 1 capsule (80 mg) by mouth in the morning. 90 capsule 3 08/05/2023 ActiveStart: 09-59-3701rpyn 1 tablet by mouth in the morningpropranoloL (INDERAL) 80 mg tablet Take 1 tablet (80 mg total) by mouth in the morning. 07/24/2023 ActiveStart: 07-13-2023 End: 92-07-2624iagp 1 capsule by mouth once dailyPropranolol 80 mg Capsule,Extended Release 24hr Active 80 MG PO Daily July 24, 2023 12:00am rosuvastatin calcium 10 mg oral tablet (11 sources)HMG-CoA Reductase InhibitorStart: 03-31-2025 End: 64-38-4281coud 1 tablet by mouth once daily at bedtimerosuvastatin (Crestor) 10 MG tablet Indications: History of TIA (transient ischemic attack) Take 1 tablet (10 mg) by mouth Daily At bedtime. 90 tablet 3 07/13/2025 Active Rybelsus (1 source)Rybelsus Activesemaglutide 14 mg oral tablet (20 sources)Start: 07-58-7935djqz 1 tablet by mouth before mealtimesemaglutide (Rybelsus) 14 MG tablet Indications: Type 2 diabetes mellitus with diabetic nephropathy, without long-term current use of insulin (HCC) Take 1 tablet (14 mg) by mouth in the morning. Takebefore meals. 90 tablet 3 07/13/2025 Active Start: 84-30-1582sjpz 1 tablet by mouth before mealtimesemaglutide (Rybelsus) 14 MG tablet Indications: Type 2 diabetes mellitus with diabetic nephropathy, without long-term current use of insulin (HCC) Take 1 tablet (14 mg) by mouth in the morning. Takebefore meals. 90 tablet 3 06/11/2025 ActiveStart: 01-21-2025 End: 89-44-7792vbkt 1 tablet by mouth once daily before mealtimeRybelsus 14 MG tablet Indications: Type 2 diabetes mellitus with diabetic nephropathy, without long-term current use of insulin (HCC) TAKE 1 TABLET BY MOUTH EVERY MORNING BEFORE MEALS 210 tablet 01/21/2025 06/11/2025 Discontinued (Reorder)Start: 16-51-4262urrw 1 tablet by mouth before mealtimesemaglutide (Rybelsus) 14 MG tablet Indications: Type 2 diabetes mellitus with diabetic nephropathy, without long-term current use of insulin (CMS/HCC) Take 1 tablet (14 mg) by mouth in the morning. Take before meals. 90 tablet 3 02/10/2024 ActiveStart: 86-85-0545zuqw 1 tablet by mouth once dailyRybelsus 7 mg oral tablet take 1 tablet by mouth once daily for 30 DAYS Start Date: 03/12/23 Status:OrderedSemaglutide (Rybelsus) 7 mg Tablet (6 sources)Start: 02-77-8491ywgk 1 tablet by mouth once dailySemaglutide (Rybelsus) 7 mg Tablet Active 14 MG PO Daily February 05, 2023 12:00amsolifenacin succinate 10 mg oral tablet (8 sources)Cholinergic Muscarinic AntagonistStart: 83-66-7097eblk 1 tablet by mouth once dailysolifenacin (VESIcare) 10 MG tablet Take 10 mg by mouth Daily 06/05/2024 Activevitamin b12 1 mg oral tablet (1 source)Vitamin V96Wgtfi: 68-75-8083tiku 1 tablet by mouth every 30 days Cyanocobalamin (Vitamin B-12) (Vitamin B-12) 1,000 mcg tablet Active 1000 MCG PO Q30D 2 60 December 31, 2024 12:00am Completed/Discontinued Medications MedicationDrug Class(es)DatesSig (Normalized)Sig (Original)acetaminophen 500 mg oral tablet (20 sources)Start: 11-08-2018 End: 01-70-8979Uvqshpnxwjthb 500 mg Tablet Discontinued 1000 MG PO Q6H as needed for Fever > 100.4 F 0 November 08, 2018 1:00am May 11, 2019 5:35pmStart: 11-08-2018 End: 76-26-2710yplt 1000 mg by mouth every six hoursAcetaminophen Discontinued 1000 MG PO Q6H 0 November 08, 2018 1:00am May 11, 2019 5:35pmbusPIRone hydrochloride 15 mg oral tablet (10 sources)Start: 06-07-2023 End: 92-40-3207rivx 1 tablet by mouth twice dailyBuspirone 15 mg tablet Discontinued 15 MG PO Twice daily June 07, 2023 12:00am December 29, 2024 7:12pmtake 1 tablet by mouth twice dailybusPIRone HCl - 7.5 MG Oral Tablet Take 1 tablet twice daily Quantity: 0 Refills: 0 Ordered: 11-Apr-2023 DO Active canagliflozin 100 mg oral tablet (20 sources)Sodium-Glucose Cotransporter 2 InhibitorStart: 05-07-2022 End: 22-67-9064Xaujfbonxfgoc (Invokana) 100 mg tablet Discontinued MG TABLET June 07, 2023 12:00am June 07, 2023 1:49pmcyclobenzaprine hydrochloride 10 mg oral tablet (20 sources)Muscle RelaxantStart: 03-16-2021 End: 09-73-9866ppeo 1 tablet by mouth three times daily as needed for muscle spasmsCyclobenzaprine 10 mg tablet Discontinued 10 MG PO Three times daily as needed for back spasms 40 March 16, 2021 12:00am May 07, 2022 1:34pmStart: 02-22-2021 End: 33-04-8387gglp 1 tablet by mouth once daily at bedtimeCyclobenzaprine 5 mg tablet Discontinued 5 MG PO Daily at bedtime February 22, 2021 12:00am February 23, 2021 1:02pmertapenem 1000 mg injection (11 sources)Penem AntibacterialStart: 07-13-2024 End: 41-34-3152agov 1 g intravenously every twenty-four hoursErtapenem 1 gram Recon Soln Discontinued 1 GM IV Q24H 08 03August 13, 2024 12:00am December 29, 2024 7:13pm End: 83-82-9566ovyt 1 g intravenously once dailyERTAPENEM SODIUM IV Infuse 1 g into a venous catheter Daily 07/23/2024 Expiredertapenem (INVanz) 1,000 mg in sodium chloride 0.9 % 50 mL IVPB (20 sources)Start: 09-03-2024 End: ,000 mg, intravenous, at 120 mL/hr, Administer over 30 Minutes, Once, On Latoya 09/03/24 at 0900, For1 dose, Do not mix with any solutions containing dextrose, Pathogen: ESBL organism, Approved Indication: UTI, Authorizing Service: No ID or personal security specialist at hospital, I acknowledge that anappropriate consult is REQUIRED to use this drug at [facility], [facility] and [facility] per [facility]-approved policy # MM 1.15: YesStart: 09-01-2024 End: ,000 mg, intravenous, at 120 mL/hr, Administer over 30 Minutes, Once, On Sat09/01/24 at 0900, For1 dose, Do not mix with any solutions containing dextrose, Pathogen: ESBL organism, Approved Indication: UTI, Authorizing Service: No ID or personal security specialist at hospital, I acknowledge that anappropriate consult is REQUIRED to use this drug at [facility], [facility] and [facility] per [facility]-approved policy # MM 1.15: YesStart: 08-31-2024 End: ,000 mg, intravenous, at 120 mL/hr, Administer over 30 Minutes, Once, On Sat08/31/24 at 0915, For1 dose, Do not mix with any solutions containing dextrose, Pathogen: ESBL organism, Approved Indication: UTI, Authorizing Service: No ID or personal security specialist at hospital, I acknowledge that anappropriate consult is REQUIRED to use this drug at [facility], [facility] and [facility] per [facility]-approved policy # MM 1.15: YesStart: 08-28-2024 End: ,000 mg, intravenous, at 120 mL/hr, Administer over 30 Minutes, Once, On Sat08/28/24 at 0945, For 1 dose, Do not mix with any solutions containing dextrose, Pathogen: ESBL organism, Approved Indication: UTI, Authorizing Service: No ID or personal security specialist at hospital, I acknowledge that an appropriate consult is REQUIRED to use this drug at [facility], [facility] and [facility] per [facility]-approved policy # MM 1.15: YesStart: 08-27-2024 End: ,000 mg, intravenous, at 120 mL/hr, Administer over 30 Minutes, Once, On Sat08/27/24 at 0900, For 1 dose, Do not mix with any solutions containing dextrose, Pathogen: ESBL organism, Approved Indication: UTI, Authorizing Service: No ID or personal security specialist at hospital, I acknowledge that an appropriate consult is REQUIRED to use this drug at [facility], [facility] and [facility] per [facility]-approved policy # MM 1.15: YesStart: 08-26-2024 End: ,000 mg, intravenous, at 120 mL/hr, Administer over 30 Minutes, Once, On Sat08/26/24 at 0915, For 1 dose, Do not mix with any solutions containing dextrose, Pathogen: ESBL organism, Approved Indication: UTI, Authorizing Service: No ID or personal security specialist at hospital, I acknowledge that an appropriate consult is REQUIRED to use this drug at [facility], [facility] and [facility] per [facility]-approved policy # MM 1.15: YesStart: 08-25-2024 End: ,000 mg, intravenous, at 120 mL/hr, Administer over 30 Minutes, Once, On Sat08/25/24 at 0915, For 1 dose, Do not mix with any solutions containing dextrose, Pathogen: ESBL organism, Approved Indication: UTI, Authorizing Service: No ID or personal security specialist at hospital, I acknowledge that an appropriate consult is REQUIRED to use this drug at [facility], [facility] and [facility] per [facility]-approved policy # MM 1.15: YesStart: 08-24-2024 End: ,000 mg, intravenous, at 120 mL/hr, Administer over 30 Minutes, Once, On Sat08/24/24 at 0930, For 1 dose, Do not mix with any solutions containing dextrose, Pathogen: ESBL organism, Approved Indication: UTI, Authorizing Service: No ID or personal security specialist at hospital, I acknowledge that an appropriate consult is REQUIRED to use this drug at [facility] and [facility] per [facility]-approved policy # MM 1.15: YesStart: 08-21-2024 End: ,000 mg, intravenous, at 120 mL/hr, Administer over 30 Minutes, Once, On Sat08/21/24 at 0900, For 1 dose, Do not mix with any solutions containing dextrose, Pathogen: ESBL organism, Approved Indication: UTI, Authorizing Service: No ID or personal security specialist at hospital, I acknowledge that an appropriate consult is REQUIRED to use this drug at [facility], [facility] and [facility] per [facility]-approved policy # MM 1.15: YesStart: 08-20-2024 End: ,000 mg, intravenous, at 120 mL/hr, Administer over 30 Minutes, Once, On Sat08/20/24 at 0900, For1 dose, Do not mix with any solutions containing dextrose, Pathogen: ESBL organism, Approved Indication: UTI, Authorizing Service: No ID or personal security specialist at hospital, I acknowledge that anappropriate consult is REQUIRED to use this drug at [facility], [facility] and [facility] per [facility]-approved policy # MM 1.15: YesStart: 08-19-2024 End: ,000 mg, intravenous, at 120 mL/hr, Administer over 30 Minutes, Once, On Sat08/19/24 at 0900, For1 dose, Do not mix with any solutions containing dextrose, Pathogen: ESBL organism, Approved Indication: UTI, Authorizing Service: No ID or personal security specialist at hospital, I acknowledge that anappropriate consult is REQUIRED to use this drug at [facility], [facility] and [facility] per [facility]-approved policy # MM 1.15: YesStart: 08-18-2024 End: ,000 mg, intravenous, at 120 mL/hr, Administer over 30 Minutes, Once, On Sat08/18/24 at 0915, For1 dose, Do not mix with any solutions containing dextrose, Pathogen: ESBL organism, Approved Indication: UTI, Authorizing Service: No ID or personal security specialist at hospital, I acknowledge that anappropriate consult is REQUIRED to use this drug at [facility], [facility] and [facility] per [facility]-approved policy # MM 1.15: YesStart: 08-17-2024 End: ,000 mg, intravenous, at 120 mL/hr, Administer over 30 Minutes, Once, On Sat08/17/24 at 0930, For1 dose, Do not mix with any solutions containing dextrose, Pathogen: ESBL organism, Approved Indication: UTI, Authorizing Service: No ID or personal security specialist at hospital, I acknowledge that anappropriate consult is REQUIRED to use this drug at [facility], [facility] and [facility] per [facility]-approved policy # MM 1.15: YesStart: 07-23-2024 End: ,000 mg, intravenous, at 120 mL/hr, Administer over 30 Minutes, Once, On Sat07/23/24 at 0800, For 1 dose, Do not mix with any solutions containing dextrose, Pathogen: ESBL organism, Approved Indication: UTI, Authorizing Service: [facility] 07-22-[facility]24 End: ,000 mg, intravenous, at 120 mL/hr, Administer over 30 Minutes, Once, On Sat07/22/24 at 0900, For 1 dose, Do not mix with any solutions containing dextrose, Pathogen: ESBL organism, Approved Indication: UTI, Authorizing Service: [facility]: 07-21-2024 End: ,000 mg, intravenous, at 120 mL/hr, Administer over 30 Minutes, Once, On Sat07/21/24 at 0900, For 1 dose, Do not mix with any solutions containing dextrose, Pathogen: ESBL organism, Approved Indication: UTI, Authorizing Service: [facility]: 07-20-2024 End: ,000 mg, intravenous, at 120 mL/hr, Administer over 30 Minutes, Once, On Sat07/20/24 at 0845, For 1 dose, Do not mix with any solutions containing dextrose, Pathogen: ESBL organism, Approved Indication: UTI, Authorizing Service: [facility] 07-17-[facility]24 End: ,000 mg, intravenous, at 120 mL/hr, Administer over 30 Minutes, Once, On Sat07/17/24 at 0745, For 1 dose, Do not mix with any solutions containing dextrose, Pathogen: ESBL organism, Approved Indication: UTI, Authorizing Service: [facility]: 07-16-2024 End: ,000 mg, intravenous, at 120 mL/hr, Administer over 30 Minutes, Once, On Sat07/16/24 at 0900, For 1 dose, Do not mix with any solutions containing dextrose, Pathogen: ESBL organism, Approved Indication: UTI, Authorizing Service: [facility]: 07-15-2024 End: ,000 mg, intravenous, at 120 mL/hr, Administer over 30 Minutes, Once, On Sat07/15/24 at 1030, For 1 dose, Do not mix with any solutions containing dextrose, Pathogen: ESBL organism, Approved Indication: UTI, Authorizing Service: [facility] tromethamine 10 mg oral tablet (20 sources)Nonsteroidal Anti-inflammatory Drug, Cyclooxygenase InhibitorStart: 05-19-2022 End: 32-30-4675zyvt 1 tablet by mouth every eight hours as needed for pain Ketorolac 10 mg tablet Discontinued 10 MG PO Q8H as needed for pain May 19, 2022 12:00am June 15, 2022 11:56amMagnesium (20 sources)Start: 03-09-2021 End: 66-13-2531mghu 1 tablet by mouth once dailyMagnesium 250 mg Tablet Discontinued 250 MG PO Daily March 09, 2021 12:00am May 07, 2022 1:34pmStart: 03-09-2021 End: 91-10-9572bbiy 250 mg by mouth once dailyMagnesium Discontinued 250 MG PO Daily March 08, 2021 11:00pm May 07, 2022 12:34pmStart: 03-09-2021 End: 66-36-2209xhgk 250 mg by mouth once dailyMagnesium Discontinued 250 MG PO Daily March 09, 2021 12:00am May 07, 2022 1:34pmmeloxicam 15 mg oral tablet (20 sources)Nonsteroidal Anti-inflammatory DrugStart: 05-11-2019 End: 13-75-0533misf 1 tablet by mouth once dailyMeloxicam 15 mg tablet Discontinued 15 MG PO Daily May 11, 2019 12:00am February 22, 2021 10:02pm metFORMIN hydrochloride 500 mg oral tablet (20 sources)BiguanideStart: 05-07-2022 End: 50-56-1456zguj 2 tablets by mouth twice dailyMetformin 500 mg tablet Discontinued 1000 MG PO Twice daily May 07, 2022 1:35pm May 07, 2022 1 :36pmStart: 05-07-2022 End: 33-60-9454yzsu 1000 mg by mouth twice dailyMetformin Discontinued 1000 MG PO Twice daily May 07, 2022 1:35pm May 07, 2022 1:36pmStart: 05-07-2022 End: 57-47-0673lxok 1 tablet by mouth once daily in the morningMetformin 1,000 mg tablet Discontinued 1000 MG PO Every morning May 07, 2022 12:00am January 6:51pmStart: 71-61-8378yzsn 1000 mg by mouth twice dailyMetformin Active 1000 MG PO Twice daily May 06, 2022 11:00pmStart: 11-04-2018 End: 54-42-2590rdef 1 tablet by mouth twice dailyMetformin 500 mg tablet Discontinued 500 MG PO Twice daily 60 November 08, 2018 11:06am April 1:35pmMultivitamin preparation (19 sources)Start: 03-09-2021 End: 72-15-1636mafz 1 tablet by mouth once dailyMultivitamin Discontinued 1 TAB PO Daily March 09, 2021 12:00am October 02, 2022 1:12pmStart: 03-09-2021 End: 78-42-3803bjtj 1 tablet by mouth once dailyMultivitamin Discontinued 1 TAB PO Daily March 08, 2021 11:00pm October 02, 2022 12:12pmStart: 69-51-6459zmya 1 tablet by mouth once dailyMultivitamin Active 1 TAB PO Daily March 08, 2021 11:00pmStart: 07-74-4580refk 1 tablet by mouth once dailyMultivitamin Active 1 TAB PO Daily March 09, 2021 12:00amMultivitamin Tablet (2 sources)Start: 03-09-2021 End: 73-00-4193apuq 1 tablet by mouth once dailyMultivitamin Tablet Discontinued 1 TAB PO Daily March 09, 2021 12:00am October 02, 2022 1:12pmondansetron 4 mg oral tablet (20 sources)Serotonin-3 Receptor AntagonistStart: 05-19-2022 End: 08-87-7189Hoxmbanxppi Hcl 4 mg tablet Discontinued 4 MG PO every 6 to 8 hours as needed for nausea and vomiting May 19, 2022 12:00am July 12, 2022 1:25pmoxybutynin chloride 5 mg oral tablet (20 sources)Cholinergic Muscarinic AntagonistStart: 05-24-2022 End: 26-08-6031jbgk 1 tablet by mouth twice daily as needed for muscle spasms Oxybutynin Chloride 5 mg tablet Discontinued 5 MG PO Twice daily as needed for bladder spasms May 24, 2022 12:00am July 12, 2022 1:25pmStart: 18-67-7372mbum 5 mg by mouth twice dailyOxybutynin Chloride Active 5 MG PO Twice daily May 24, 2022 12:00amoxyCODONE hydrochloride 5 mg oral capsule (20 sources)Opioid AgonistStart: 03-16-2021 End: 08-33-9009zskz 5-10 mg by mouth every six hours as needed for painOxycodone 5 mg capsule Discontinued 5 - 10 MG PO Q6H as needed for pain 40 March 16, 2021 July 12, 2022 1:25pmpolyethylene glycol 3350 44499 mg powder for oral solution (12 sources)Osmotic LaxativeStart: 07-13-2024 End: 10-22-9931Uysepvqonbbw Glycol 3350 (Healthylax) 17 gram Powder In Packet Discontinued 17 GM PO Daily July 13, 2024 12:00am August 09, 2024 10:08pmpramipexole dihydrochloride 0.125 mg oral tablet (20 sources)Nonergot Dopamine AgonistStart: 02-23-2021 End: 61-40-2725vxaa 1 tablet by mouth once daily at bedtimePramipexole 0.125 mg Tablet Discontinued 0.125 MG PO Daily at bedtime February 23, 2021 12:00am 2021 1:35pmpredniSONE 10 mg oral tablet (20 sources)Start: 03-16-2021 End: 74-95-9261Wujivgjxlp 10 mg tablets,dose pack Discontinued 1 dose pk PO per package directions March 16, 2021 12:00am May 07, 2022 1:35pm take 4 tabs for 3 days then take 3 tabs for 3 days then take 2 tabs for 3 days then take 1 tab for 3 daysStart: 03-16-2021 End: 01-34-4871Wygsrztbiq Discontinued 1 dose pk PO per package directions March 15, 2021 11:00pm May 07, 2022 12:35pm take 4 tabs for 3 days then take 3 tabs for 3 days then take 2 tabs for 3 days then take 1 tab for 3 daysStart: 03-16-2021 End: 91-22-4395Jjeiaglsqz Discontinued 1 dose pk PO per package directions March 16, 2021 12:00am May 07, 2022 1:35pm take 4 tabs for 3 days then take 3 tabs for 3 days then take 2 tabs for 3 days then take 1tab for 3 dayspregabalin 25 mg oral capsule (13 sources)Start: 10-02-2022 End: 27-90-4723pgvk 1 capsule by mouth at bedtime as needed for painPregabalin 25 mg capsule Discontinued 25 MG PO Bedtime as needed for Pain October 02, 2022 1:00am February 05, 2023 6:51pmsaccharomyces boulardii 250 mg oral capsule (3 sources)Start: 08-14-2024 End: 39-64-9820csyc 1 capsule by mouth twice daily at mealtimeSaccharomyces Boulardii 250 mg Capsule Discontinued 250 MG PO Twice daily with meals August 14, 2024 12:00am December 29, 2024 7:39fm250 ml sodium chloride 9 mg/ml prefilled syringe (20 sources)Start: 09-03-2024 End: mL, intravenous, As needed, line care, to lumen(s) as needed before and after each use., Starting on Sat09/03/24 at 0858Start: 08-31-2024 End: mL, intravenous, As needed, port line care, Starting on Sat09/01/24 at 0854Start: mL, intravenous, As needed, line care, to lumen(s) as needed before and after each use., Starting on Sat08/28/24 at 1006 Start: 08-20-2024 End: mL, intravenous, As needed, line care, to lumen(s) as needed before and after each use., Starting on Sat08/21/24 at 0848Start: 08-18-2024 End: mL, intravenous, As needed, port line care, Starting on Sat08/18/24 at 0939Start: 07-21-2024 End: mL, intravenous, As needed, port line care, Starting on Sat07/23/24 at 0752Start: mL, intravenous, As needed, port line care, Starting on Sat07/17/24 at 0736Start: 07-13-2024 End: 37-79-2197fjjs 1 mL intravenously once dailySodium Chloride 0.9 % (Flush) (Normal Saline Flush) syringe Discontinued 10 ML IV Daily 80 July 13, 2024 12:00am August 14, 2024 12:02pmStart: 81-03-4971dvam 1 mL intravenously once dailySodium Chloride 0.9 % (Flush) (Normal Saline Flush) syringe Active 10 ML IV Daily July 13, 2024 12:00amtamsulosin hydrochloride 0.4 mg oral capsule (20 sources)alpha-Adrenergic BlockerStart: 07-13-2024 End: 94-76-9853bfxe 1 capsule by mouth once dailyTamsulosin 0.4 mg Capsule Discontinued 0.4 MG PO Daily July 13, 2024 12:00am December 29, 2024 7:14pmStart: 05-19-2022 End: 96-49-6961wbgg 1 capsule by mouth onceTamsulosin (Flomax) 0.4 mg capsule Discontinued 0.4 MG PO Once May 19, 2022 12:00am May 24, 2022 10:34am Problems Active Problems Problem ClassificationProblemDateDocumented DateEpisodic/ChronicAbdominal pain (20 sources)Flank pain; Translations: [Unspecified abdominal pain]Onset: [id number] on above:Problem List clean-up per request of Phys. EHR CmteAcute cerebrovascular disease (4 sources)Cerebrovascular wdlbuwbu38-55-5643NgpvrohTdkzrjzmqbjumi/social admission (3 sources)Impaired mobility; Translations: [Other reduced mobility]Onset: 255943-61-3687EzrtlzgdQgaklzv disorders (20 sources)Generalized anxiety disorder; Translations: [Generalized anxiety disorder]Onset: 361208-13-8905OadvlvvVjsybnu kidney disease (20 sources)Chronic kidney disease; Translations: [Chronic kidney disease, unspecified]Onset: 383886-88-6381RkyvecrRpuvvpu on above:Problem List clean-up per request of Phys. EHR Cmtestage 3Problem List clean-up per request of Phys. EHR CmteChronic kidney disease (1 source)Chronic kidney disease; Translations: [Chronic kidney disease, stage 3a]Onset: 06-64-7607Hbpfoaiwvy associated with dizziness or vertigo (20 sources)Benign paroxysmal positional vertigo; Translations: [Benign paroxysmal vertigo, unspecified ear]76-68-8530GqkmyisrNllfcrl on above:Problem List clean-up per request of Phys. EHR CmteDiabetes mellitus with complications (20 sources)Renal disorder due to type 2 diabetes mellitus; Translations: [Type 2 diabetes mellitus with diabetic nephropathy]Onset: 842773-07-4876Zevzqqa Diabetes mellitus without complication (20 sources)Diabetes mellitus; Translations: [Type 2 diabetes mellitus]Onset: 924551-17-8078RonxlkdTwdcrkq on above:Problem List clean-up per request of Phys. EHR CmteDisorders of lipid metabolism (20 sources)Hyperlipidemia; Translations: [Hyperlipidemia, unspecified]Onset: 02-13-2023 Resolved: [id number]ob on above:Problem List clean-up per request of Phys. EHR CmteEpilepsy; convulsions (20 sources)Seizure; Translations: [Unspecified convulsions]86-55-4305Xytkbarx Comment on above:Possible seizure activity due to negative MRI. We have performed a EEG in the morning and will await interpretation in the afternoon. Patient continues to have small periods of confusion which are new for him at this time.Problem List clean-up per request of Phys. EHR CmteEsophageal disorders (20 sources)Gastroesophageal reflux disease without esophagitis; Translations: [Gastro-esophageal reflux disease without esophagitis]Onset: 10-27-2024 39-40-8001HibinvrQqfydiqgd hypertension (20 sources)Hypertensive disorder; Translations: [Essential (primary) hypertension]Onset: 230205-06-2855PdmiopzLkahila on above:Problem List clean-up per request of Phys. EHR CmteGenitourinary symptoms and ill-defined conditions (16 sources)Microscopic hematuria; Translations: [Asymptomatic microscopic hematuria]Onset: 72-62-1736MzfwgmjsYfxqwrwq; including migraine (8 sources)Migraine; Translations: [Migraine without aura, not intractable, without status migrainosus]94-01-3893TvubebdWzmxiuv on above:Problem List clean- up per request of Phys. EHR CmteHeadache; including migraine (20 sources)Frequent headache; Translations: [Headache]06-71-1073XsrhsgrmFlbmmlt on above:Problem List clean-up per request of Phys. EHR CmteHyperplasia of prostate (20 sources)Benign prostatic hyperplasia; Translations: [Benign prostatic hyperplasia without lower urinary tract symptoms]Onset: 992927-81-0493 ChronicMalaise and fatigue (11 sources)Fatigue; Translations: [Other fatigue]Onset: EpisodicMiscellaneous mental health disorders (20 sources)Primary insomnia; Translations: [Primary insomnia]Onset: 07-14-2023 42-77-6971DclwkaiJampwx and vomiting (2 sources)Nausea and vomiting; Translations: [Nausea with vomiting, unspecified]50-18-6430BsqailpoTccmewivc of unspecified nature or uncertain behavior (20 sources)Immunosecretory disorder; Translations: [Monoclonal gammopathy] Onset: 076984-34-5509UedazttRegkrhordtf chest pain (20 sources)Chest pain; Translations: [Chest pain, unspecified]Onset: 02-13-2023 22-79-5485JvwucdhwGaxotlo on above:Problem List clean-up per request of Phys. EHR CmteNutritional deficiencies (2 sources)Vitamin D deficiency; Translations: [Vitamin D deficiency, unspecified]97-45-8955KsxtldrIezwiiwxvav deficiencies (3 sources)Cobalamin deficiency; Translations: [Deficiency of other specified B group vitamins]Onset: 716363-74-6078CrqmnkbzMssutjlfoxbbaj (20 sources)Arthropathy of left hip joint; Translations: [Unilateral primary osteoarthritis, left hip]Onset: 16-10-6080QeuyvsaAaofu aftercare (1 source)Long-term current use of anticoagulant; Translations: [parts counterman (current) use of anticoagulants]Onset: 11-35-7041DqlbmujjLjpms aftercare (1 source)Encounter for adjustment and management of vascular access device; Translations: [Encounter for adjustment and management of vascular access device]Onset: 24-68-9739UzdnwmonPwbbq aftercare (20 sources)Patient encounter status; Translations: [Encounter for adjustment and management of vascular accessdevice]Onset: 482536-41-3257TrvwxtamTqbha circulatory disease (4 sources)History of cerebrovascular accident; Translations: [Personal history of transient ischemic attack (TIA), and cerebral infarction without residual deficits]55-74-9663DqbdzhmePyjkzla on above:RIGHT SIDE WEAKERProblem List clean- up per request of Phys. EHR CmteOther connective tissue disease (20 sources)Monoparesis - leg; Translations: [Other symptoms and signs involving the musculoskeletal system]45-87-4942NfskkzfuVydtlfi on above:Problem List clean-up per request of Phys. EHR CmteOther diseases of kidney and ureters (3 sources)Complex renal ncmk78-46-2494QolndrelOkjnj diseases of kidney and ureters (1 source)Urinary tract obstruction; Translations: [Hydronephrosis with renal and ureteral calculous obstruction]Onset: 87-48-2352SgjgmcomRyquw diseases of kidney and ureters (1 source)Acquired renal cyst without neoplastic change; Translations: [Cyst of kidney, acquired]Onset: 03-88-3070RzvfgjrlVlzcz endocrine disorders (20 sources)Hyperparathyroidism; Translations: [Hyperparathyroidism, unspecified]Onset: 206604-56-7389AygxcvxMgzyt fractures (5 sources)Compression fracture of lumbar spine; Translations: [Wedge compression fracture of first lumbar vertebra, initial encounter for closed fracture]EpisodicOther hereditary and degenerative nervous system conditions (20 sources)Restless legs; Translations: [Restless legs syndrome]Onset: 991864-68-6816QxgzrveTvgdq injuries and conditions due to external causes (1 source)Foreign body in bladder; Translations: [Foreign body in bladder, initial encounter]Onset: 05-88-9544NwhafyxcXniek liver diseases (2 sources)Fatty (change of) liver, not elsewhere classified; Translations: [Other chronic nonalcoholic liver disease]82-19-8360ParhcauJqowa nervous system disorders (3 sources)Chronic pain; Translations: [Other chronic pain]ChronicOther nervous system disorders (2 sources)Other chronic painChronicOther nervous system disorders (20 sources)Cervical myelopathy; Translations: [Disease of spinal cord, unspecified]Onset: [id number] nervous system disorders (2 sources)Spinal cord disease; Translations: [Disease of spinal cord, unspecified]30-19-0629MsecyzzQkqjo nervous system disorders (20 sources)Difficulty talking; Translations: [Unspecified speech disturbances] 79-13-5663WgqbtmpnZjwamvt on above:Problem List clean-up per request of Phys. EHR CmteOther nervous system disorders (15 sources)Acute postoperative pain; Translations: [Other acute postprocedural pain]55-12-7563TpkzkosuHozrbjp on above:Problem List clean-up per request of Phys. EHR CmteOther nervous system disorders (4 sources)Unspecified speech disturbances; Translations: [Other speech disturbance]72-73-3489NkcjgvopUnrse non-traumatic joint disorders (4 sources)Pain in left hip; Translations: [PAIN IN LEFT HIP]Onset: 08-29-2021 EpisodicOther non-traumatic joint disorders (1 source)Other specified joint disorders, left hip; Translations: [OTHER SPECIFIED JOINT D/O LEFT HIP]Onset: 87-38-3311PlovdflkHuvmd non-traumatic joint disorders (1 source)Pain in unspecified hip; Translations: [Pain in unspecified hip]Onset: 08-25-0913BghhfnavGfwxw nutritional; endocrine; and metabolic disorders (1 source)Obesity; Translations: [Obesity, unspecified]ChronicOther nutritional; endocrine; and metabolic disorders (20 sources)Peripheral neuropathy due to metabolic disorder; Translations: [Metabolic disorder, unspecified]Onset: 960933-27-2743PmddtxsIozbqwcjzd and visceral atherosclerosis (1 source)Atherosclerosis of aorta; Translations: [Atherosclerosis of aorta] 11-52-6857EpylxjzNjncstrx codes; unclassified (20 sources)Altered mental status; Translations: [Altered mental status, unspecified]50-94-5588ZqbqitqtEjfyrol on above:Problem List clean-up per request of Phys. EHR CmteResidual codes; unclassified (14 sources)Confusional state; Translations: [Disorientation, unspecified] 51-62-1088BtlxijptEsgjmut on above:Problem List clean-up per request of Phys. EHR CmteResidual codes; unclassified (7 sources)Altered mental status, unspecified; Translations: [Altered mental status]22-03-2403BsyxqpodTmtbaxeg codes; unclassified (4 sources)Disorientation, unspecified; Translations: [Unspecified psychosis] 60-16-0438YkwqalivGlckxoyk codes; unclassified (2 sources)Cognitive perceptual pattern; Translations: [Unspecified symptoms and signs involving general sensations and perceptions]84-88-6393XdiclnqlYiemsrde codes; unclassified (2 sources)Unspecified symptoms and signs involving general sensations and perceptions; Translations: [Other symptoms involving nervous and musculoskeletal systems]87-32-5976BqluicqrHggxygwff and history of mental health and substance abuse codes (5 sources)Ex-smoker; Translations: [Personal history of tobacco use]10-19-2020 EpisodicComment on above:Quit 2000;Spondylosis; intervertebral disc disorders; other back problems (20 sources)Inflammation of sacroiliac joint; Translations: [Sacroiliitis, not elsewhere classified]Onset: 09-26-2021 Resolved: 41-88-4207NsqxhewZrvgaja on above:Problem List clean-up per request of Phys. EHR CmteSyncope (20 sources)Syncope; Translations: [Syncope and collapse]87-18-0032Wxcswcuy Comment on above:Problem List clean-up per request of Phys. EHR CmteTransient cerebral ischemia (20 sources)Transient cerebral ischemia; Translations: [Transient cerebral ischemic attack, unspecified]17-38-3251XvrgxsmMgqpfio on above:Problem List clean-up per request of Phys. EHR CmteUnclassified (1 source)Outpatient InfusionOnset: 75-52-1115Jdssnqctlgqk (2 sources)Metabolic dysfunction-associated steatotic liver disease (MASLD) 02-08-2025 Past or Other Problems Problem ClassificationProblemDateDocumented DateEpisodic/ChronicAcute and unspecified renal failure (12 sources)Acute renal failure syndrome; Translations: [Acute kidney failure, unspecified]Onset: 873471-07-5148WmyuyyjjDnpgxambl infection; unspecified site (13 sources)Infection due to ESBL Escherichia coli; Translations: [Other bacterial infections of unspecified site]Onset: 738094-67-1750Rgwdctwr Calculus of urinary tract (20 sources)Kidney stone; Translations: [Calculus of kidney]Onset: 05-22-2022 EpisodicComment on above:Problem List clean-up per request of Phys. EHR Cmte Other circulatory disease (20 sources)History of transient ischemic attack; Translations: [Personal history of transient ischemic attack (TIA), and cerebral infarction without residual deficits]Onset: 522657-37-6386MjpilvkbDxbyiiq on above:Problem List clean-up per request of Phys. EHR CmteOther circulatory disease (4 sources)Personal history of transient ischemic attack (TIA), and cerebral infarction without residual deficits; Translations: [Personal history of transient ischemic attack (TIA), and cerebral infarction without residual deficits]Onset: 681994-76-6001QnfjuyboKllgh diseases of kidney and ureters (20 sources)Cyst of kidney; Translations: [Cyst of kidney, acquired]Onset: 289744-81-9809SosnymidKynsq fractures (1 source)Wedge compression fracture of first lumbar vertebra, initial encounter for closed fractureOnset: 04-19-2022 Resolved: 95-47-0541EhzfdxkiBajxy nervous system disorders (20 sources)H/O: migraine; Translations: [Personal history of other diseases of the nervous system and sense organs]Onset: 534068-65-6614Rbftyjso Septicemia (except in labor) (11 sources)Sepsis; Translations: [Sepsis, unspecified organism]Onset: 476934-58-8327AkchduyvKxrtsenlbwa; intervertebral disc disorders; other back problems (20 sources)Lumbago with sciatica; Translations: [Lumbago with sciatica, left side]Onset: 07-11-2021 Resolved: 41-89-9171DwspttafUtnwlbkvrjrr (4 sources)Asymptomatic microscopic niyypbppt07-93-0306Vrdserkgsanc (1 source)Left-sided low back pain without sciatica, unspecified chronicity M54.50Onset: 06-08-2022 Resolved: 37-33-0971Iprynaxcqgnm (3 sources)Obstructive grvirubrlbuwyk50-19-8079Roqbird tract infections (20 sources)Urinary tract infectious disease; Translations: [Urinary tract infection, site not specified]Onset: 076118-99-8353Hlzxtwew Results Test NameValueInterpretationReference YduccJwcrgfeo00-ayypsqdavqbbdo D3 [Mass/Vol]on 91-09-638432480774-lcoxsiqrzwlwhn D [Mass/Vol]85 ng/mL30 - 100 ng/mLNOMS HealthcareComment on above:Vitamin D Status 25-OH Vitamin D: Deficiency: <20 ng/mL Insufficiency: 20 - 29 ng/mL Optimal: > or = 30 ng/mL For 25-OH Vitamin D testing on patients on D2-supplementation and patients for whom quantitation of D2 and D3 fractions is required, the QuestAssureD() 25-OH VIT D, (D2,D3), LC/MS/MS is recommended: order code 09658 (patients >2yrs). See Note 1 Note 1 For additional information, please refer to http://education.AddMyBest/faq/SHR923 (This link is being provided for informational/ educational purposes only.) CBC W Auto Differential panel (Bld)on 37-64-6710Uqhczmmzq (Bld) [#/Vol]60 10*3/uLNOMS HealthcareBasophils/100 WBC (Bld)0.6 %[facility] HealthcareEosinophils (Bld) [#/Vol]150 10*3/uLNOMS HealthcareEosinophils/100 WBC (Bld)1.5 %[facility] HealthcareErythrocyte distribution width (RBC) [Ratio]13.5 %11.0 - 15.0 %[facility] SystemHematocrit (Bld) [Volume fraction]41.3 %38.5 - 50.0 %[facility] Hemoglobin (Bld) [Mass/Vol]13.9 g/dL13.2 - 17.1 g/dLSaint Luke's Health SystemLymphocytes (Bld) [#/Vol]3390 10*3/uLNOMS HealthcareLymphocytes/100 WBC (Bld)33.9 %[facility] SystemMCH (RBC) [Entitic mass]32 pg27.0 - 33.0 pgNOSaint John's HospitalMCHC (RBC) [Mass/Vol]33.7 g/dL32.0 - 36.0 g/dLNOWI HealthcareComment on above:For adults, a slight decrease in the calculated MCHC value (in the range of 30 to 32 g/dL) is most likely not clinically significant; however, it should be interpreted with caution in correlation with other red cell parameters and the patient's clinical condition. MCV (RBC) [Entitic vol]94.9 fL80.0 - 100.0 fLNOMS HealthcareMonocytes (Bld) [#/Vol]620 10*3/uLNOMS HealthcareMonocytes/100 WBC (Bld)6.2 %[facility] Neutrophils (Bld) [#/Vol]5780 10*3/uLNOMS HealthcareNeutrophils/100 WBC (Bld) 57.8 %NOMS HealthcarePlatelet mean volume (Bld) [Entitic vol]10 fL7.5 - 12.5 fL NOMS HealthcarePlatelets (Bld) [#/Vol]304 10*3/uLNOMS HealthcareRBC (Bld) [#/Vol]4.35 10*6/uLNOMS HealthcareWBC (Bld) [#/Vol]10 10*3/uLNOMS Healthcare Comprehensive metabolic panelon 16-72-4198Dnhcrhr [Mass/Vol]4.4 g/dL3.6 - 5.1 g/dLNOMS HealthcareAlbumin/Globulin [Mass ratio]1.6 {ratio}NOMS HealthcareALP [Catalytic activity/Vol]97 U/L35 - 144 U/LNOMS HealthcareALT [Catalytic activity/Vol]29 U/L9 - 46 U/LNOMS HealthcareAST [Catalytic activity/Vol]23 U/L10 - 35 U/LNOMS HealthcareBilirubin [Mass/Vol]0.8 mg/dL0.2 - 1.2 mg/dLNOMS HealthcareChloride [Moles/Vol]106 mmol/L98 - 110 mmol/LNOMS HealthcareCO2 [Moles/Vol]24 mmol/L20 - 32 mmol/LNOMS HealthcareCreatinine [Mass/Vol]1.39 mg/dL High0.70 - 1.35 mg/dLNOWI HealthcareGFR/1.73 sq M.predicted among non-blacks MDRD (S/P/Bld) [Vol rate/Area]56 mL/min/{1.73_m2}Low> OR = 60 mL/min/1.00q3HAZV HealthcareGlobulin (S) [Mass/Vol]2.7 g/dLNOMS HealthcareGlucose [Mass/Vol]127 mg/gGCodh48 - 99 mg/dLNOWI HealthcareComment on above: Fasting reference interval For someone without known diabetes, a glucose value >125 mg/dL indicates that they may have diabetes and this should be confirmed with a follow-up test. Potassium [Moles/Vol]4.6 mmol/L3.5 - 5.3 mmol/LNOMS HealthcareSodium [Moles/Vol] 139 mmol/L135 - 146 mmol/LNOMS HealthcareUrea nitrogen [Mass/Vol]20 mg/dL7 - 25 mg/dLNOSaint John's HospitalUrea nitrogen/Creatinine [Mass ratio]14 mg/mgSaint Luke's Health System Hemoglobin A1con 85-48-7419WhB3w (Bld) [Mass fraction]6.9 %HighNINF - 5.7 %[facility] SystemComment on above:For someone without known diabetes, a hemoglobin A1c [...] A1c for diagnosis of diabetes for children. Laboratory - Chemistry and Chemistry - challengeon 12-44-2752Hrwypln [Mass/Vol] 9.3 mg/dL8.6 - 10.3 mg/dLACADIA HEALTHCARE HealthcareProtein [Mass/Vol]7.1 g/dL6.1 - 8.1 g/dL [facility] SystemNo Panel Informationon 20-02-2472Dohkfwvbqppfex and review of laboratory resultsAbHenry Ford Macomb HospitalPATIENT UNABLE TO VOID; ADVISED TO RETURN FOR COLLECTION.Bonfire.comSage Memorial HospitalHashCube Organization Information Site ID: QPT Name: [facility] Address: [address] [place] [address], [address] [place] [id number] Director: Ji Gutierrez MDFirstHealthParathyrin.intact and Calcium panelon 05-07-0231Efgrcxlqzl.intact [Mass/Vol]85 pg/lIQpfz04 - 77 pg/mL [facility] SystemComment on above: Interpretive Guide Intact PTH Calcium ------- Normal Parathyroid Normal Normal Hypoparathyroidism Low or Low Normal Low Hyperparathyroidism Primary Normal or High High Secondary High Normal or Low Tertiary High High Non-Parathyroid Hypercalcemia Low or Low Normal High Phosphate [Moles/Vol]on 29-40-7616Xufdwzvhn [Mass/Vol]3.9 mg/dL2.1 - 4.3 mg/dL [facility] SystemProtein, total and protein electrophoresis with immunofixationon 32-20-8918Qmccsfk [Mass/Vol]4.1 g/dL3.8 - 4.8 g/dLSaint Luke's Health SystemAlpha 1 globulin Elph [Mass/Vol]0.3 g/dL0.2 - 0.3 g/dLSaint Luke's Health SystemAlpha 2 globulin Elph [Mass/Vol]1 g/dLHigh0.5 - 0.9 g/dLSaint Luke's Health SystemBeta 1 globulin Elph [Mass/Vol]0.4 g/dL0.4 - 0.6 g/dLSaint Luke's Health SystemBeta 2 globulin Elph [Mass/Vol] 0.4 g/dL0.2 - 0.5 g/dLSaint Luke's Health SystemGamma globulin Elph [Mass/Vol]0.9 g/dL0.8 - 1.7 g/dLSaint Luke's Health SystemInterpretation Immunofixation [Interp][facility] Comment on above:IgG kappa monoclonal band present.Protein Fractions [Interp] [facility] SystemComment on above: Evaluation reveals a restricted band (M-spike) migrating in the gamma globulin region. If not already requested, Immunofixation should be considered. Protein.monoclonal band 1 Elph [Mass/Vol]0.2 g/dLHighNONE DETECTEDSaint Luke's Health SystemMicroalbumin/Creatinine ratio panel (U)on 15-23-0015Jvbkqgx DL <= 20 mg/L (U) [Mass/Vol]3.6 mg/dLSee Note:[facility] SystemComment on above:Reference Range: Reference Range Not established Albumin/Creatinine (U) [Mass ratio]21NINFSaint Luke's Health SystemComment on above: The ADA defines abnormalities in albumin excretion as follows: Albuminuria Category Result (mg/g creatinine) Normal to Mildly increased <30 Moderately increased 30-299 Severely increased > OR = 300 The ADA recommends that at least two of three specimens collected within a 3-6 month period be abnormal before considering a patient to be within a diagnostic category. Creatinine (U) [Mass/Vol]175 mg/dL20 - 320 mg/dLACADIA HEALTHCARE HealthcarePerforming Organization Information Site ID: QPT Name: [facility] Address: [address] , [address] [place] [id number] Director: Ji Gutierrez MDACADIA HEALTHCARE HealthcareNo Panel Informationon 36-84-5617JZLAS 02/04/2025 FROM [id number] HealthcareURINALYSIS MICROSCOPICon 02-05-2025 Epithelial cells.squamous LM.HPF (Urine sed) [#/Area]6-10Abnormal< OR = 5 /HPF NOMS HealthcareInterpretation and review of laboratory resultsAbnormalSaint Luke's Health SystemRB LM.HPF (Urine sed) [#/Area]3-10Abnormal< OR = 2 /HPFACADIA HEALTHCARE HealthcareService comment (Unsp spec) [Interp]NOMS HealthcareComment on above: This urine was analyzed for the presence of WBC, RBC, bacteria, casts, and other formed elements. Only those elements seen were reported. Transitional cells LM.HPF (Urine sed) [#/Area]0-5< OR = 5 /HPFNOWI HealthcareWBC LM.HPF (Urine sed) [#/Area]6-10Abnormal< OR = 5 /HPFACADIA HEALTHCARE HealthcarePerphoenixville hospitalg Organization Information Site ID: QTW Name: [facility] Address: [address] [place] [id number] Director: Selene Street [facility] HealthAlanine aminotransferase [Enzymatic activity/volume] in Serum or PlasmaOrdered By: Maurice Foote on 48-55-7166QZZ [Catalytic activity/Vol]Alanine aminotransferase [Enzymatic activity/volume] in Serum or Plasma7-52[facility] HospitalAlbumin [Mass/volume] in Serum or Plasma by Bromocresol green (BCG) dye binding methoOrdered By: Maurice Foote on 85-47-2514Nkbemba BCG dye [Mass/Vol]Albumin [Mass/volume] in Serum or Plasma by Bromocresol green (BCG) dye binding metho3.5-5.7FUniversity Hospitals TriPoint Medical CenterAlkaline phosphatase [Enzymatic activity/volume] in Serum or PlasmaOrdered By: Maurice Foote on 48-93-3790WOL [Catalytic activity/Vol]Alkaline phosphatase [Enzymatic activity/volume] in Serum or Ayfwpq79-039YdlfnlmngToledo HospitalAspartate aminotransferase [Enzymatic activity/volume] in Serum or PlasmaOrdered By: Maurice Foote on 27-49-1831ELK [Catalytic activity/Vol] Aspartate aminotransferase [Enzymatic activity/volume] in Serum or Lcakhy48-49 [facility] HospitalBasophils Auto (Bld) [#/Vol]Ordered By: Maurice Foote on 42-21-2386Sysaymxce (Bld) [#/Vol]Automated basophil count0.0-0.2 [facility] HospitalBasophils/100 WBC Auto (Bld)Ordered By: Maurice Foote on 51-85-8131Rwffrbjvk/100 WBC (Bld)Automated basophil %.[facility] HospitalBilirubin.total [Mass/volume] in Serum or PlasmaOrdered By: Maurice Foote on 55-73-6518Fbbaildtk [Mass/Vol]Bilirubin.total [Mass/volume] in Serum or Plasma0.3-1.0[facility] HospitalCalcium [Mass/volume] in Serum or PlasmaOrdered By: Maurice Foote on 66-15-4389Tcrvvzu [Mass/Vol]Calcium [Mass/volume] in Serum or PlasmaLow8.6-10.3FUniversity Hospitals TriPoint Medical Center Carbon dioxide, total [Moles/volume] in Serum or PlasmaOrdered By: Maurice Foote on 90-11-8653AW9 [Moles/Vol]Carbon dioxide, total [Moles/volume] in Serum or YplpyfCgk31.0-31.0[facility] HospitalChloride [Moles/volume] in Serum or PlasmaOrdered By: Maurice Foote on 44-77-2238Pjzvdrwg [Moles/Vol]Chloride [Moles/volume] in Serum or YmgyrlIysq20-266SnkxdjxfeToledo Hospital Complete Blood Count Auto Diffon 20-58-4619Kfqqelrxm (Bld) [#/Vol]0.1 10*3/uL Normal0.0-0.2The [facility] Physician GroupComment on above:Result Comment: PERFORMED BY: [facility] [place] [address] PATHOLOGIST MEDICAL LABORATORY SPECIALIST GRACIE OLMOS M.D.Performed By: #### GLULS #### Point of Care testing ,Basophils/100 WBC (Bld)0.7 %Normal.The [facility] Physician GroupComment on above:Performed By: #### GLULS #### Point of Care testing ,Eosinophils (Bld) [#/Vol]0.1 10*3/uLNormal0.0-0.45The [facility] Comment on above:Performed By: #### GLULS #### Point of Care testing ,Eosinophils/100 WBC (Bld)1.7 %Normal.The [facility] Physician GroupComment on above:Performed By: #### GLULS #### Point of Care testing ,Erythrocyte distribution width (RBC) [Ratio]14.1 %Xwtjkb54.0-14.8The [facility] Physician GroupComment on above:Performed By: #### GLULS #### Point of Care testing ,Hematocrit (Bld) [Volume fraction]40.0 %Xainpt32.8-50.0The [facility] Physician GroupComment on above:Performed By: #### GLULS #### Point of Care testing ,Hemoglobin (Bld) [Mass/Vol]13.4 g/uRXexjkl79.0-17.0The [facility] Physician GroupComment on above:Performed By: #### GLULS #### Point of Care testing ,Lymphocytes (Bld) [#/Vol]3.5 10*3/uLNormal1.00-4.8The [facility] Comment on above:Performed By: #### GLULS #### Point of Care testing ,Lymphocytes/100 WBC (Bld)41.4 %Normal.The [facility] Physician GroupComment on above:Performed By: #### GLULS #### Point of Care testing ,MCH (RBC) [Entitic mass]31.5 svIcbuur68.5-35.2The [facility] Comment on above:Performed By: #### GLULS #### Point of Care testing ,MCV (RBC) [Entitic vol]94.2 rPUtzkoq66.5-101The [facility] Comment on above:Performed By: #### GLULS #### Point of Care testing ,Mean Corpuscular HGB Conc33.4 g/pREqkczg98.5-35.6The [facility] Comment on above:Performed By: #### GLULS #### Point of Care testing ,Monocytes (Bld) [#/Vol]0.7 10*3/uLNormal0.0-0.8The [facility] Comment on above:Performed By: #### GLULS #### Point of Care testing ,Monocytes/100 WBC (Bld)7.9 %Normal.The [facility] Physician GroupComment on above:Performed By: #### GLULS #### Point of Care testing ,Neutrophils (Bld) [#/Vol]4.1 10*3/uLNormal1.8-7.7The [facility] Comment on above:Performed By: #### GLULS #### Point of Care testing ,Neutrophils/100 WBC (Bld)48.3 %Normal.The [facility] Physician GroupComment on above:Performed By: #### GLULS #### Point of Care testing ,NRBC%0.1 /100{WBC}Normal0-0.5The [facility] Physician GroupComment on above: Performed By: #### GLULS #### Point of Care testing ,Platelet mean volume (Bld) [Entitic vol]8.0 fLNormal6.6-10.1The [facility] Physician GroupComment on above:Performed By: #### GLULS #### Point of Care testing ,Platelets (Bld) [#/Vol]211 10*3/bIKubebb240-758Ouo [facility] Comment on above:Performed By: #### GLULS #### Point of Care testing ,RBC (Bld) [#/Vol]4.25 10*6/uLNormal3.90-5.60The [facility] Comment on above:Performed By: #### GLULS #### Point of Care testing ,WBC (Bld) [#/Vol]8.5 10*3/uLNormal4.1-10.5The [facility] Physician GroupComment on above:Performed By: #### GLULS #### Point of Care testing ,Comprehensive Metabolic Panelon 27-70-8885Lsdqktu [Mass/Vol]3.8 g/dLNormal 3.5-5.7The [facility] Physician GroupComment on above:Performed By: #### GLULS #### Point of Care testing ,Albumin/Globulin [Mass ratio]1.5 {ratio}NormalThe [facility] Comment on above:Performed By: #### GLULS #### Point of Care testing ,ALP [Catalytic activity/Vol]84 U/NRalycp41-635Xex [facility] Comment on above:Performed By: #### GLULS #### Point of Care testing ,ALT [Catalytic activity/Vol]29 U/LNormal7-52The [facility] Comment on above:Performed By: #### GLULS #### Point of Care testing ,Anion gap [Moles/Vol]10.6 mmol/LNormal6.0-15.0The [facility] Comment on above:Performed By: #### GLULS #### Point of Care testing ,AST [Catalytic activity/Vol]21 U/LHsjxsw11-51Sno [facility] Comment on above:Performed By: #### GLULS #### Point of Care testing ,Bilirubin [Mass/Vol]0.6 mg/dLNormal0.3-1.0The [facility] Physician GroupComment on above:Performed By: #### GLULS #### Point of Care testing ,Calcium [Mass/Vol]8.4 mg/dLLow8.6-10.3The [facility] Physician GroupComment on above:Performed By: #### GLULS #### Point of Care testing ,Chloride [Moles/Vol]114 mmol/HTwxc01-839Lbs [facility] Phys[facility] GroupComment on above:Performed By: #### GLULS #### Point of Care testing ,CO2 [Moles/Vol]19.4 mmol/LLow21.0-31.0The [facility] Physician GroupComment on above:Performed By: #### GLULS #### Point of Care testing ,Creatinine [Mass/Vol]1.46 mg/dLHigh0.70-1.30The [facility] Comment on above:Performed By: #### GLULS #### Point of Care testing ,Creatinine Clr Calc Gjomatwm59.64NoFormerly [facility] Physician GroupComment on above:Result Comment: PERFORMED BY: [facility] [place] [address] PATHOLOGIST MEDICAL LABORATORY SPECIALIST GRACIE OLMOS M.D.Performed By: #### GLULS #### Point of Care testing ,Estimated GFR52.710 mL/MinNoFormerly [facility] Physician GroupComment on above: Performed By: #### GLULS #### Point of Care testing ,Globulin (S) [Mass/Vol]2.6 g/dLUF Health Shands Hospital Physician GroupComment on above:Performed By: #### GLULS #### Point of Care testing ,Glucose [Mass/Vol]108 mg/eQQjdc19-282Wid [facility] Physician GroupComment on above:Result Comment: Random Glucose Reference Range is dependent on time and content of last meal. Glucose of more than 200 mg/dL in a nonstressed, ambulatory subject supports the diagnosis of Diabetes Mellitus. ADA recommended reference rangePerformed By: #### GLULS #### Point of Care testing ,Potassium [Moles/Vol]4.0 mmol/LNormal3.5-5.1The [facility] Comment on above:Performed By: #### GLULS #### Point of Care testing ,Protein [Mass/Vol]6.4 g/dLNormal6.4-8.9The [facility] Physician GroupComment on above:Performed By: #### GLULS #### Point of Care testing ,Sodium [Moles/Vol]140 mmol/VDspakt209-228Hlv [facility] Physician GroupComment on above:Performed By: #### GLULS #### Point of Care testing ,Urea nitrogen [Mass/Vol]20 mg/dLNormal7-25The [facility] Physician GroupComment on above:Performed By: #### GLULS #### Point of Care testing ,Creatinine [Mass/volume] in Serum or PlasmaOrdered By: Maurice Foote on 46-24-5579Wzhlksahau [Mass/Vol]Creatinine [Mass/volume] in Serum or PlasmaHigh 0.70-1.30[facility] HospitalECH echo transthoracicon 49-89-4174UWT echo transthoracicTHE [facility] [place] [address] [place], [place] [id number] Echocardiogram Signed Patient: Rod Mathias MR#: [id number] 1426 : 1960 Acct:[id number] Age/Sex: 64 / M ADM Date: 12/29/24 Loc: Room: [address] [place] [address] Type: ADM INOo Attending Dr: Maurice Foote MD Ordering Provider: Maurice Foote MD Date of Service: 12/29/2409/14/1713 ECH/ECH echo transthoracic: Neuro Symptoms/Deficit Copies to: MD Terell Patel MD Marlon K 12:00 PM Patient Location: : 1960 Gender: Male (MM/DD/YYYY) Age: 64 Years Ordering Physician: Maurice Foote Height: 70.87 in Weight: 241.38 lb Performed By: Wanda Oconnell RDCS BSA: 2.28 m2 BP: 117 / 68 mmHg HR: 60 bpm Reason For Study: Neuro Symptoms/Deficit History: CKD. DM. CVA. TIA. HTN. HLD. + + Interpretation Summary Ejection Fraction = 55-60%. Moderate concentric left ventricular hypertrophy. The left ventricular wall motion is normal. A variety of Doppler measurements indicate normal left ventricular diastolic function. Compared to prior study, changes are noted. LVH is now noted. Procedure/Quality: A two-dimensional transthoracic echocardiogram with color flow, Doppler and injection of contrast agent Definity was performed. The study was technically fair in quality. Left Ventricle: The left ventricular size is normal. Moderate concentric left ventricular hypertrophy. Ejection Fraction = 55-60%. A variety of Doppler measurements indicate normal left ventricular diastolic function. The left ventricular wall motion is normal. Left Atrium: The left atrium appears normal in size. Right Atrium: The right atrium appears normal in size. Right Ventricle: The right ventricle is normal in size and function. Aortic Valve: The aortic valve is normal in structure. No hemodynamically significant valvular aortic stenosis. No aortic regurgitation is present. Mitral Valve: The mitral valve is normal in structure. No significant mitral valve stenosis. There is no mitral regurgitation noted. Tricuspid Valve: The tricuspid valve is not well visualized. No tricuspid regurgitation. Pulmonic Valve: The pulmonic valve is not well visualized. Arteries: The aortic root is normal size. Borderline dilated ascending aorta. Pericardium/Pleura: No pericardial effusion seen. IVC/Hepatic Veins: The inferior vena cava was not visualized during the exam. MMode/2D Measurements Calculations IVSd (0.7-1.1 cm): 1.52 cm LVIDd (3.7-5.4 cm): 3.4 cm LVPWd (0.7-1.1 cm): 1.41 cm LVIDs (2.3-3.6 cm): 2.25 cm LA dimension (2.3-4.0 cm): 4.0 Ao root diam (2.0-3.2 cm): 3.2 cm cm FS: 34.7 % Ao root area: 8.3 cm2 EDV(Teich): 49.1 ml LVOT diam: 1.97 cm ESV(Teich): 17.2 ml LVOT area: 3.0 cm2 EF(Teich): 65.0 % LAV(MOD-sp2): 38.9 ml LAV(MOD-sp4): 47.0 ml LA A2 area: 15.3 cm2 LA A4 area: 18.9 cm2 LA length (vol): 6.3 cm LA vol: 39.1 ml LA vol index: 17.1 ml/m2 Doppler Measurements Calculations MV E max lamar: 79.7 cm/sec Ao V2 max: 108.6 cm/sec MV A max lamar: 68.1 cm/sec Ao max P.7 mmHg MV dec time: 0.16 sec Ao mean P.0 mmHg MV dec slope: 486.7 cm/sec?? Ao V2 mean: 83.6 cm/sec E/E' lat: 10.1 Ao V2 VTI: 21.4 cm E/E' med: 10.5 ARCHIE(I,D): 2.23 cm2 ARCHIE(V,D): 2.11 cm2 LV V1 max: 75.4 cm/sec LV V1 max P.27 mmHg LV V1 mean: 49.4 cm/sec LV V1 mean P.13 mmHg LV V1 VTI: 15.7 cm + + + + + + + : Electronically : : signed by: Terell : : : : Adi : : : : : : on: 12/31/2024, : : 2:24 PM : Transcribed By: VERÓNICA Performed At: 12/31/24 1200 Signed By: Terell Joshi MD 12/31/[address] [place] [address] Physician GroupEosinophils Auto (Bld) [#/Vol]Ordered By: Maurice Foote on 68-13-6777Mhqdfoleygj (Bld) [#/Vol]Automated eosinophil count0.0-0.45[facility] HospitalEosinophils/100 WBC Auto (Bld)Ordered By: Maurice Foote on 62-64-8975Upbgstbwggl/100 WBC (Bld)Automated eosinophil %.[facility] HospitalErythrocyte distribution width Auto (RBC) [Ratio]Ordered By: Maurice Foote on 56-07-1868Cpjibhrykyp distribution width (RBC) [Ratio]Erythrocyte distribution width [Ratio] by Automated count12.0-14.8[facility] HospitalGlobulin Calc (S) [Mass/Vol]Ordered By: Maurice Foote on 92-74-3039Alnjrnhj (S) [Mass/Vol]Serum globulin measurement by calculation (mass/volume)[facility] HospitalGlucose Glucometer (BldC) [Mass/Vol]Ordered By: Maurice Foote on 67-91-9316Iamxouv [Mass/Vol]Capillary blood glucose measurement by glucometer (mass/volume)[facility] HospitalComment on above:Random Glucose Reference Range is dependent on time and content of last meal. Glucose of more than 200 mg/dL in a nonstressed, ambulatory subject supports the diagnosis of Diabetes Mellitus.Glucose Poct Glucometerson 53-98-3517Avryetk [Mass/Vol]137 mg/dLNoFormerly [facility] Physician GroupComment on above:Result Comment: Random Glucose Reference Range is dependent on time and content of last meal. Glucose of more than 200 mg/dL in a nonstressed, ambulatory subject supports the diagnosis of Diabetes Mellitus. PERFORMED BY: [address] [place] [address] PATHOLOGIST MEDICAL LABORATORY SPECIALIST GRACIE OLMOS M.D.Performed By: #### GLULS #### Point of Care testing ,Glucose [Mass/Vol]110 mg/dLNoFormerly [facility] Physician GroupComment on above: Result Comment: Random Glucose Reference Range is dependent on time and content of last meal. Glucose of more than 200 mg/dL in a nonstressed, ambulatory subject supports the diagnosis of Diabetes Mellitus. PERFORMED BY: [facility] [address] [place] [address] PATHOLOGIST MEDICAL LABORATORY SPECIALIST GRACIE OLMOS M.D.Performed By: #### GLULS #### Point of Care testing ,Glucose [Mass/volume] in Serum or PlasmaOrdered By: Maurice Foote on 12-31-2024 Glucose [Mass/Vol]Glucose [Mass/volume] in Serum or FaucdtHdtn90-312ZacgjrcwkToledo HospitalComment on above:ADA recommended reference rangeRandom Glucose Reference Range is dependent on time and content of last meal. Glucose of more than 200 mg/dL in a nonstressed, ambulatory subject supports the diagnosisof Diabetes Mellitus.Hematocrit Auto (Bld) [Volume fraction]Ordered By: Maurice Foote on 70-51-5512Fjeeufxrdg (Bld) [Volume fraction]Hematocrit [Volume Fraction] of Blood by Automated count38.8-50.0[facility] Hemoglobin [Mass/volume] in BloodOrdered By: Maurice Foote on 32-44-0750Hccimhaexe (Bld) [Mass/Vol]Hemoglobin [Mass/volume] in Blood13.0-17.0[facility] HospitalLeukocytes [#/volume] corrected for nucleated erythrocytes in Blood by Automated counOrdered By: Maurice Foote on 89-56-0943QRR corrected for nucl RBC Auto (Bld) [#/Vol]Leukocytes [#/volume] corrected for nucleated erythrocytes in Blood by Automated coun4.1-10.5FUniversity Hospitals TriPoint Medical Center Lymphocytes Auto (Bld) [#/Vol]Ordered By: Maurice Foote on 05-36-8605Nrfkuvgdivv (Bld) [#/Vol]Lymphocytes [#/volume] in Blood by Automated count1.00-4.8[facility] HospitalLymphocytes/100 WBC Auto (Bld)Ordered By: Maurice Foote on 00-25-0849Itlzmffftzm/100 WBC (Bld)Lymphocytes/100 leukocytes in Blood by Automated count.[facility]H Auto (RBC) [Entitic mass] Ordered By: Maurice Foote on 48-87-9060PDO (RBC) [Entitic mass]MCH [Entitic mass] by Automated count27.5-35.2FUniversity Hospitals TriPoint Medical CenterMCHC Auto (RBC) [Mass/Vol]Ordered By: Maurice Foote on 19-07-3838CGCT (RBC) [Mass/Vol]MCHC [Mass/volume] by Automated count32.5-35.6FSt. Charles HospitalV Auto (RBC) [Entitic vol]Ordered By: Maurice Foote on 89-89-9721DWM (RBC) [Entitic vol]MCV [Entitic volume] by Automated count83.5-101T[facility] HospitalMonocytes Auto (Bld) [#/Vol]Ordered By: Maurice Foote on 12-20-1736Saonaheqv (Bld) [#/Vol]Automated blood monocyte count0.0-0.8[facility] HospitalMonocytes/100 WBC Auto (Bld)Ordered By: Maurice Foote on 12-31-2024 Monocytes/100 WBC (Bld)Automated monocyte %.[facility] Neutrophils Auto (Bld) [#/Vol]Ordered By: Maurice Foote on 67-93-9208Frwgtnsjzag (Bld) [#/Vol]Neutrophils [#/volume] in Blood by Automated count1.8-7.7FUniversity Hospitals TriPoint Medical CenterNeutrophils/100 WBC Auto (Bld)Ordered By: Maurice Foote on 02-59-5549Juvziponbkr/100 WBC (Bld)Automated neutrophil %.[facility]edo HospitalNo Panel InformationOrdered By: Maurice Foote on 01-63-2430Kxzkugrxc GFR (CKD-EPI)52.710 mL/MinToledo HospitalPharmacy Creatinine Clearance (Chem62.64T[facility]edo HospitalNucleated erythrocytes [Presence] in Blood by Automated countOrdered By: Maurice Foote on 12-31-2024 Nucleated RBC Auto Ql (Bld)Nucleated erythrocytes [Presence] in Blood by Automated count0-0.5FUniversity Hospitals TriPoint Medical CenterPlatelet mean volume Auto (Bld) [Entitic vol]Ordered By: Maurice Foote on 02-74-6542Oofgfyqu mean volume (Bld) [Entitic vol]Platelet mean volume [Entitic volume] in Blood by Automated count6.6-10.1FUniversity Hospitals TriPoint Medical CenterPlatelets Auto (Bld) [#/Vol] Ordered By: Maurice Foote on 58-23-8459Rcrckcjie (Bld) [#/Vol]Platelets [#/volume] in Blood by Automated gaoaz661-467SjpshpthgToledo HospitalPotassium [Moles/volume] in Serum or PlasmaOrdered By: Maurice Foote on 82-33-3502Xprckdsxx [Moles/Vol]Potassium [Moles/volume] in Serum or Plasma3.5-5.1FUniversity Hospitals TriPoint Medical CenterProtein [Mass/volume] in Serum or PlasmaOrdered By: Maurice Foote on 53-33-2010Uxavpzo [Mass/Vol]Protein [Mass/volume] in Serum or Plasma6.4-8.9 [facility] HospitalRBC Auto (Bld) [#/Vol]Ordered By: aMurice Foote on 78-11-0752HDR (Bld) [#/Vol]Erythrocytes [#/volume] in Blood by Automated count3.90-5.60[facility]ultman Hospitalerum or plasma albumin/globulin mass ratioOrdered By: Maurice Foote on 91-85-8971Bqjhneo/Globulin [Mass ratio] Serum or plasma albumin/globulin mass ratioToledo Hospital Serum or plasma anion gap determinationOrdered By: Maurice Foote on 12-31-2024 Anion gap [Moles/Vol]Serum or plasma anion gap determination6.0-15.0[facility]ultman Hospitalodium [Moles/volume] in Serum or PlasmaOrdered By: Maurice Foote on 19-09-3379Khcnjs [Moles/Vol]Sodium [Moles/volume] in Serum or Plasma 136-145[facility] HospitalUrea nitrogen [Mass/volume] in Serum or PlasmaOrdered By: Maurice Foote on 32-15-0751Ozad nitrogen [Mass/Vol]Urea nitrogen [Mass/volume] in Serum or Plasma7-25[facility] HospitalWBC Auto (Bld) [#/Vol]Ordered By: Maurice Foote on 59-04-7760PRV (Bld) [#/Vol]Leukocytes [#/volume] in Blood by Automated count4.1-10.5FUniversity Hospitals TriPoint Medical Center A1C with Estimated Average Gluon 64-03-3203Vvqbapn [Mass/Vol]148 mg/dLNoFormerly [facility] Physician GroupComment on above:Result Comment: PERFORMED BY: [place] [address] [place] [address] PATHOLOGIST MEDICAL LABORATORY SPECIALIST GRACIE OLMOS M.D.Performed By: #### SCAN CBC, CK, CMP, PT, PTT, HS TROP #### [facility] [address] [place] [address] XZYVxQ1r (Bld) [Mass fraction]6.8 %High4.3-5.6The [facility] Physician GroupComment on above:Result Comment: Increased risk for diabetes: 5.7 - 6.4 diabetes: >6.4 glycemic control for adults with diabetes: <7.0Performed By: #### SCAN CBC, CK, CMP, PT, PTT, HS TROP #### [facility] [address] [place] [id number] USABlood estimated average glucose determination by estimation from glycated hemoglobinOrdered By: Maurice Foote on 86-65-4639Tkqvnfw glucose Estimated from glycated hemoglobin (Bld) [Mass/Vol]Glucose mean value [Mass/volume] in Blood Estimated from glycated hemoglobinToledo HospitalCholesterol [Mass/volume] in Serum or PlasmaOrdered By: Maurice Foote on 85-85-1595Zxbnyqnirjk [Mass/Vol]Cholesterol [Mass/volume] in Serum or Xhktic151-298DweoczrtiToledo HospitalComment on above:Chol less than 200 mg/dl low riskChol 201-239 mg/dl borderline riskChol 240 mg/dl and greater high riskCholesterol in HDL [Mass/volume] in Serum or PlasmaOrdered By: Maurice Foote on 75-94-1542Sxtrtvhxrgt in HDL [Mass/Vol]Serum or plasma high density lipoprotein (HDL) cholesterol cfwqpjvvebf72-75EchwqhaeaToledo Hospital Comment on above:HDL CHOL ATP-III CLASSIFICATION Cardiovascular RiskHDL > or equal to 60 mg/dL LOWHDL < 40 mg/dL HIGHCholesterol in LDL Calc [Mass/Vol] Ordered By: Maurice Foote on 79-00-0657Atazxyzidyr in LDL [Mass/Vol]Cholesterol in LDL [Mass/volume] in Serum or Plasma by calculation0-100T[facility] HospitalComment on above:LDL ATP III CLASSIFICATIONLDL less than 100 mg/dL OptimalLDL 100-129 mg/dL Near or above itfygesLFZ000-783 mg/dL Borderline highLDL 160-189 mg/dL HighLDL greater than 189 mg/dL Very highCholesterol in VLDL Calc [Mass/Vol]Ordered By: Maurice Foote on 72-13-9876Wzoxypuqale in VLDL [Mass/Vol]Cholesterol in VLDL [Mass/volume] in Serum or Plasma by calculation [facility] HospitalComplete Blood Count Auto Diffon 12-30-2024 Basophils (Bld) [#/Vol]0.0 10*3/uLNormal0.0-0.2The [facility] Comment on above:Result Comment: PERFORMED BY: [place] [address] PATHOLOGIST MEDICAL LABORATORY SPECIALIST GRACIE OLMOS M.D.Performed By: #### SCAN CBC, CK, CMP, PT, PTT, HS TROP #### [place] [address] USABasophils/100 WBC (Bld)0.6 %Normal.The [facility] Physician GroupComment on above:Performed By: #### SCAN CBC, CK, CMP, PT, PTT, HS TROP #### [place] [address] USAEosinophils (Bld) [#/Vol]0.1 10*3/uLNormal0.0-0.45The [facility] Physician GroupComment on above:Performed By: #### SCAN CBC, CK, CMP, PT, PTT, HS TROP #### [place] [address] USAEosinophils/100 WBC (Bld)1.8 %Normal.The [facility] Physician GroupComment on above:Performed By: #### SCAN CBC, CK, CMP, PT, PTT, HS TROP #### [place] [address] USAErythrocyte distribution width (RBC) [Ratio]14.5 %Normal 12.0-14.8The [facility] Physician GroupComment on above:Performed By: #### SCAN CBC, CK, CMP, PT, PTT, HS TROP #### [place] [address] USAHematocrit (Bld) [Volume fraction]38.4 %Low38.8-50.0The [facility] Physician GroupComment on above:Performed By: #### SCAN CBC, CK, CMP, PT, PTT, HS TROP #### [place] [address] USAHemoglobin (Bld) [Mass/Vol]13.0 g/qUPortjc28.0-17.0The [facility] Physician GroupComment on above:Performed By: #### SCAN CBC, CK, CMP, PT, PTT, HS TROP #### [place] [address] USALymphocytes (Bld) [#/Vol]3.2 10*3/uLNormal1.00-4.8The [facility] Physician GroupComment on above:Performed By: #### SCAN CBC, CK, CMP, PT, PTT, HS TROP #### [place] [address] USALymphocytes/100 WBC (Bld)41.9 %Normal.The [facility] Physician GroupComment on above:Performed By: #### SCAN CBC, CK, CMP, PT, PTT, HS TROP #### [place] [address] USAMCH (RBC) [Entitic mass]31.5 muHduyuc50.5-35.2The [facility] Physician GroupComment on above:Performed By: #### SCAN CBC, CK, CMP, PT, PTT, HS TROP #### [place] [address] USAMCV (RBC) [Entitic vol]93.0 tJFlgzsi00.5-101The [facility] Physician GroupComment on above:Performed By: #### SCAN CBC, CK, CMP, PT, PTT, HS TROP #### [place] [address] USAMean Corpuscular HGB Conc33.8 g/oWNfdmyw39.5-35.6The [facility] Physician GroupComment on above:Performed By: #### SCAN CBC, CK, CMP, PT, PTT, HS TROP #### [place] [address] USAMonocytes (Bld) [#/Vol]0.6 10*3/uLNormal0.0-0.8The [facility] Physician GroupComment on above:Performed By: #### SCAN CBC, CK, CMP, PT, PTT, HS TROP #### [place] [address] USAMonocytes/100 WBC (Bld)8.3 %Normal.The [facility] Physician GroupComment on above:Performed By: #### SCAN CBC, CK, CMP, PT, PTT, HS TROP #### [place] [address] USANeutrophils (Bld) [#/Vol]3.7 10*3/uLNormal1.8-7.7The [facility] Physician GroupComment on above:Performed By: #### SCAN CBC, CK, CMP, PT, PTT, HS TROP #### [place] [address] USANeutrophils/100 WBC (Bld)47.4 %Normal.The [facility] Physician GroupComment on above:Performed By: #### SCAN CBC, CK, CMP, PT, PTT, HS TROP #### [place] [address] USANRBC%0.1 /100{WBC}Normal0-0.5The [facility] Comment on above:Performed By: #### SCAN CBC, CK, CMP, PT, PTT, HS TROP #### [place] [address] USAPlatelet mean volume (Bld) [Entitic vol]8.2 fLNormal 6.6-10.1The [facility] Physician GroupComment on above:Performed By: #### SCAN CBC, CK, CMP, PT, PTT, HS TROP #### [place] [address] USAPlatelets (Bld) [#/Vol]220 10*3/mZBblrou959-393Yea [facility] Physician GroupComment on above:Performed By: #### SCAN CBC, CK, CMP, PT, PTT, HS TROP #### [place] [id number] USARBC (Bld) [#/Vol]4.13 10*6/uLNormal3.90-5.60The [facility] Physician GroupComment on above:Performed By: #### SCAN CBC, CK, CMP, PT, PTT, HS TROP #### [place] [address] USAWBC (Bld) [#/Vol]7.7 10*3/uLNormal4.1-10.5The [facility] Physician GroupComment on above:Performed By: #### SCAN CBC, CK, CMP, PT, PTT, HS TROP #### [place] [address] USAComprehensive Metabolic Panelon 11-91-1632Jbopaxy [Mass/Vol]3.9 g/dLNormal3.5-5.7The [facility] Physician GroupComment on above: Performed By: #### SCAN CBC, CK, CMP, PT, PTT, HS TROP #### [place] [address] USAAlbumin/Globulin [Mass ratio]1.5 {ratio}NormalThe [facility] Physician GroupComment on above:Performed By: #### SCAN CBC, CK, CMP, PT, PTT, HS TROP #### [place] [address] USAALP [Catalytic activity/Vol]88 U/VAfabqn81-652Ztr [facility] Physician GroupComment on above:Performed By: #### SCAN CBC, CK, CMP, PT, PTT, HS TROP #### [place] [address] USAALT [Catalytic activity/Vol]28 U/LNormal7-52The [facility] Physician GroupComment on above:Performed By: #### SCAN CBC, CK, CMP, PT, PTT, HS TROP #### [place] [address] USAAnion gap [Moles/Vol]10.9 mmol/LNormal6.0-15.0The [facility] Physician GroupComment on above:Performed By: #### SCAN CBC, CK, CMP, PT, PTT, HS TROP #### [facility] [address] [place] [address] USAAST [Catalytic activity/Vol]21 U/NYmkzey35-66Tdr [facility] Physician GroupComment on above:Performed By: #### SCAN CBC, CK, CMP, PT, PTT, HS TROP #### [facility] [address] [place] [address] USABilirubin [Mass/Vol]0.7 mg/dLNormal0.3-1.0The [facility] Physician GroupComment on above:Performed By: #### SCAN CBC, CK, CMP, PT, PTT, HS TROP #### [place] [address] USACalcium [Mass/Vol]8.6 mg/dLNormal8.6-10.3The [facility] Physician GroupComment on above:Performed By: #### SCAN CBC, CK, CMP, PT, PTT, HS TROP #### [place] [address] USAChloride [Moles/Vol]113 mmol/ACwsq41-981Ijb [facility] Physician GroupComment on above:Performed By: #### SCAN CBC, CK, CMP, PT, PTT, HS TROP #### [place] [address] USACO2 [Moles/Vol]20.0 mmol/LLow21.0-31.0The [facility] Physician GroupComment on above:Performed By: #### SCAN CBC, CK, CMP, PT, PTT, HS TROP #### [place] [address] USACreatinine [Mass/Vol]1.47 mg/dLHigh0.70-1.30The [facility] Physician GroupComment on above:Performed By: #### SCAN CBC, CK, CMP, PT, PTT, HS TROP #### [facility] [address] [place] [address] USACreatinine Clr Calc Snnvpjss03.21NormalThe [facility] Physician GroupComment on above:Performed By: #### SCAN CBC, CK, CMP, PT, PTT, HS TROP #### [facility] [address] [place] [address] USAEstimated GFR52.280 mL/MinNormalThe [facility] Physician GroupComment on above:Performed By: #### SCAN CBC, CK, CMP, PT, PTT, HS TROP #### [facility] [address] [place] [address] USAGlobulin (S) [Mass/Vol]2.6 g/dLNormalThe [facility] Physician GroupComment on above:Performed By: #### SCAN CBC, CK, CMP, PT, PTT, HS TROP #### [facility] [address] [place] [address] USAGlucose [Mass/Vol]81 mg/pRXtnozn91-379Mlt [facility] Physician GroupComment on above:Result Comment: Random Glucose Reference Range is dependent on time and content of last meal. Glucose of more than 200 mg/dL in a nonstressed, ambulatory subject supports the diagnosis of Diabetes Mellitus. ADA recommended reference rangePerformed By: #### SCAN CBC, CK, CMP, PT, PTT, HS TROP #### [facility] [address] [place] [address] USAPotassium [Moles/Vol]3.9 mmol/LNormal3.5-5.1The [facility] Physician GroupComment on above:Performed By: #### SCAN CBC, CK, CMP, PT, PTT, HS TROP #### [facility] [address] [place] [address] USAProtein [Mass/Vol]6.5 g/dLNormal6.4-8.9The [facility] Physician GroupComment on above:Performed By: #### SCAN CBC, CK, CMP, PT, PTT, HS TROP #### [facility] [address] [place] [address] USASodium [Moles/Vol]140 mmol/WGbrjdp273-509Eyd [facility] Physician GroupComment on above:Performed By: #### SCAN CBC, CK, CMP, PT, PTT, HS TROP #### [facility] [address] [place] [address] USAUrea nitrogen [Mass/Vol]20 mg/dLNormal7-25The [facility] Physician GroupComment on above:Performed By: #### SCAN CBC, CK, CMP, PT, PTT, HS TROP #### [place] [address] USAGlucose Poct Glucometerson 21-81-9289Ubpthhl [Mass/Vol]111 mg/dLNoFormerly [facility] Physician GroupComment on above:Result Comment: Random Glucose Reference Range is dependent on time and content of last meal. Glucose of more than 200 mg/dL in a nonstressed, ambulatory subject supports the diagnosis of Diabetes Mellitus. PERFORMED BY: [place] [address] PATHOLOGIST MEDICAL LABORATORY SPECIALIST GRACIE OLMOS M.D.Performed By: #### SCAN CBC, CK, CMP, PT, PTT, HS TROP #### [place] [address] USAGlucose [Mass/Vol]140 mg/dLNormHCA Florida Trinity Hospital Physician GroupComment on above:Result Comment: Random Glucose Reference Range is dependent on time and content of last meal. Glucose of more than 200 mg/dL in a nonstressed, ambulatory subject supports the diagnosis of Diabetes Mellitus. PERFORMED BY: [place] [address] PATHOLOGIST MEDICAL LABORATORY SPECIALIST GRACIE OLMOS M.D.Performed By: #### SCAN CBC, CK, CMP, PT, PTT, HS TROP #### [place] [address] USAGlucose [Mass/Vol]138 mg/dLNoFormerly [facility] Physician GroupComment on above:Result Comment: Random Glucose Reference Range is dependent on time and content of last meal. Glucose of more than 200 mg/dL in a nonstressed, ambulatory subject supports the diagnosis of Diabetes Mellitus. PERFORMED BY: [place] [address] PATHOLOGIST MEDICAL LABORATORY SPECIALIST GRACIE OLMOS M.D.Performed By: #### SCAN CBC, CK, CMP, PT, PTT, HS TROP #### [place] [address] USAHemoglobin A1c/Hemoglobin.total in BloodOrdered By: Maurice Foote on 62-88-2203QrZ8h (Bld) [Mass fraction]Hemoglobin A1c percentageHigh 4.3-5.6FUniversity Hospitals TriPoint Medical CenterComment on above:Increased risk for diabetes: 5.7 - 6.4diabetes: >6.4glycemic control for adults with diabetes: &l t;7.0Lipid Panelon 02-80-3734Daacnmxnvzp [Mass/Vol]140 mg/pPToinyy176-432Juf [facility] Physician GroupComment on above:Result Comment: Chol less than 200 mg/dl low risk Chol 201-239 mg/dl borderline risk Chol 240 mg/dl and greater high riskPerformed By: #### SCAN CBC, CK, CMP, PT, PTT, HS TROP #### [facility] [address] [place] [address] USACholesterol in HDL [Mass/Vol]42 mg/eBYegloh46-59Nzo [facility] Physician GroupComment on above:Result Comment: HDL CHOL ATP-III CLASSIFICATION Cardiovascular Risk HDL > or equal to 60 mg/dL LOW HDL < 40 mg/dL HIGHPerformed By: #### SCAN CBC, CK, CMP, PT, PTT, HS TROP #### [facility] [address] [place] [id number] USACholesterol.total/Cholesterol in HDL [Mass ratio]3.3 {ratio}Normal<5.0The Reading HospitalComment on above:Result Comment: PERFORMED BY: [place] [address] PATHOLOGIST MEDICAL LABORATORY SPECIALIST GRACIE OLMOS M.D.Performed By: #### SCAN CBC, CK, CMP, PT, PTT, HS TROP #### [facility] [address] [place] [id number] USALDL Cholesterol,Grhcavqmqb82 mg/dLNormal0-100The [facility] Physician [facility] WesleyComment on above:Result Comment: LDL ATP III CLASSIFICATION LDL less than 100 mg/dL Optimal LDL 100-129 mg/dL Near or above optimal LDL 130-159 mg/dL Borderline high LDL 160-189 mg/dL High LDL greater than 189 mg/dL Very highPerformed By: #### SCAN CBC, CK, CMP, PT, PTT, HS TROP #### [facility] [address] [place] [address] USATriglyceride w/Oretan248 mg/dLHigh0-149The [facility] Physician GroupComment on above:Result Comment: TRIG ATP III CLASSIFICATION TRIG less than 150 mg/dL Normal TRIG 150-199 mg/dL Borderline high TRIG 200-500 mg/dL High TRIG greater than 500 mg/dL Very high Standard traceable to the Center for Disease Conrtrol and Prevention (CDC) test method.Performed By: #### SCAN CBC, CK, CMP, PT, PTT, HS TROP #### [facility] [address] [place] [address] USAVLDL UNFRXCEOXMS81 mg/dLNormalThe [facility] Physician GroupComment on above:Performed By: #### SCAN CBC, CK, CMP, PT, PTT, HS TROP #### [facility] [address] [place] [address] USAMR cervical spine wo conon 76-65-1747RE cervical spine wo [facility] [place] [address] [place] [address] MRI Report Signed Patient: Rod Mathias MR#: [id number] : 1960 Acct:[id number] Age/Sex: 64 / M ADM Date: 12/29/24 Loc: Room: [address] [place] [address] Type: ADM INO Attending Dr: Maurice Foote MD Copies to: DO Maurice Ovalle MD Ordering Provider: Mikey Rose DO Date of Service: 12/30/24 MR/MR cervical spine wo con: hx cerv spinal stenosis w compressive myelopathy MRI Cervical Spine without contrast TECHNIQUE: Multiplanar T1 and T2-weighted imaging of the cervical spine obtained. HISTORY: Worsening right leg weakness. COMPARISON: 12/20/2020 BONY ALIGNMENT: Adequate BONY LESION: None CERVICAL CORD: No significant demyelination. SKULL BASE: unremarkable. PREVERTEBRAL SOFT TISSUES: Unremarkable NASOPHARYNGEAL REGION: unremarkable. VERTEBRAL ARTERIES: unremarkable. POSTSURGICAL CHANGES: None CERVICAL SOFT TISSUES: Unremarkable C1-2 LEVEL: Unremarkable C2-3: Mild midline disc protrusion. Patent central canal and neural foramen. C3-4: Mild disc space narrowing. The midline disc protrusion. The myocardial cord. No cord edema or hemorrhage. Patent neural foramen C4-5: Into space narrowing. Midline disc protrusion. Mild crowding of the cord. C5-6: Cervical spine fusion changes. Patent central canal and neural foramen, focal myelomalacia similar to prior examination. C6-7: Disc space narrowing. Mild diffuse disc bulge. Mild bilateral neural foraminal narrowing. C7-T1: Mild disc space narrowing. Patent central canal and neural foramen. MR/MR cervical spine wo con IMPRESSION: C5-6 postsurgical fusion without complication. 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 Multilevel discovertebral degenerative changes. Patent central canal. No developing new regions of cord edema or hemorrhage. Impression dictated by: Steve Thurston M.D.12/30/2024 9:39 PM Dictation Location: [place] [address] Transcribed By: [facility] 12/30/242138 Dictated By: Steve Thurston DO 12/30/242131 Signed By: 12/30/242138NormHCA Florida Trinity Hospital Physician GroupMagnesiumon 78-49-8806Ntdpmbnhs [Mass/Vol]1.9 mg/dLNormal1.9-2.7The [facility] Physician GroupComment on above: Performed By: #### SCAN CBC, CK, CMP, PT, PTT, HS TROP #### [place] [address] USAMagnesium [Mass/volume] in Serum or PlasmaOrdered By: Maurice Foote on 82-90-8707Ofsyxefhu [Mass/Vol]Magnesium [Mass/volume] in Serum or Plasma1.9-2.7FUniversity Hospitals TriPoint Medical CenterMagnetic resonance imaging report Ordered By: Steve Thurston on 24-97-0534Bjtqk reportTHE [facility]LEVUE [facility] Main [place] [address] [place], [place] [id number] MRI Report Signed Patient: Rod Mathias MR#: [id number] : 1960 Acct:[id number] Age/Sex: 64 / M ADM Date: 5 Loc: 3T Room: [address] [place] [address] Type: ADM INOo Attending Dr: Maurice Foote MD Copies to: DO Maurice Ovalle MD~ Ordering Provider: Mikey Rose DO Date of Service: 12/30/24 MR/MR cervical spine wo con: hx cerv spinal stenosis w compressive myelopathy MRI Cervical Spine without contrast TECHNIQUE: Multiplanar T1 and T2-weighted imaging of the cervical spine obtained. HISTORY: Worsening right leg weakness. COMPARISON: 12/20/2020 BONY ALIGNMENT: Adequate BONY LESION: None CERVICAL CORD: No significant demyelination. SKULL BASE: unremarkable. PREVERTEBRAL SOFT TISSUES: Unremarkable NASOPHARYNGEAL REGION: unremarkable. VERTEBRAL ARTERIES: unremarkable. POSTSURGICAL CHANGES: None CERVICAL SOFT TISSUES: Unremarkable C1-2 LEVEL: Unremarkable C2-3: Mild midline disc protrusion. Patent central canal and neural foramen. C3-4: Mild disc space narrowing. The midline disc protrusion. The myocardial cord. No cord edema orhemorrhage. Patent neural foramen C4-5: Into space narrowing. Midline disc protrusion. Mild crowding of the cord. C5-6: Cervical spine fusion changes. Patent central canal and neural foramen, focal myelomalacia similar to prior examination. C6-7: Disc space narrowing. Mild diffuse disc bulge. Mild bilateral neural foraminal narrowing. C7-T1: Mild disc space narrowing. Patent central canal and neural foramen. MR/MR cervical spine wo con IMPRESSION: C5-6 postsurgical fusion without complication. 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 Multilevel discovertebral degenerative changes. Patent central canal. No developing new regions of cord edema or hemorrhage. Impression dictated by: Steve Thurston M.D.12/30/2024 9:39 PM Dictation Location: [place] [address] Transcribed By: [facility] 12/30/242138 Dictated By: Steve Thurston DO 12/30/242131 Signed By: 12/30/242138 [facility] HospitalPhosphate [Mass/volume] in Serum or Plasma Ordered By: Maurice Foote on 26-34-5124Yqjmjkgcf [Mass/Vol]Phosphate [Mass/volume] in Serum or Plasma2.5-4.5FUniversity Hospitals TriPoint Medical CenterPhosphoruson 93-24-9355Gqjgrzevf [Mass/Vol]3.7 mg/dLNormal2.5-4.5The [facility] Physician GroupComment on above:Performed By: #### SCAN CBC, CK, CMP, PT, PTT, HS TROP #### [facility] [address] [place] [address] USASerum or plasma total cholesterol/high density lipoprotein (HDL) cholesterol mass ratOrdered By: Maurice Foote on 12-30-2024 Cholesterol.total/Cholesterol in HDL [Mass ratio]Serum or plasma total cholesterol/high density lipoprotein (HDL) cholesterol mass rat<5.0T[facility] HospitalThyroid Stimulating Hormoneon 22-44-1811PEJ Qn1.52 m[IU]/LNormal0.45-5.33The [facility] Physician [facility] WesleyComment on above:Result Comment: PERFORMED BY: [address] [place] [id number] PATHOLOGIST MEDICAL LABORATORY SPECIALIST GRACIE OLMOS M.D.Performed By: #### SCAN CBC, CK, CMP, PT, PTT, HS TROP #### [facility] [address] [place] [id number] USAThyrotropin [Units/volume] in Serum or PlasmaOrdered By: Mikey Rose on 87-69-3817QVS QnThyrotropin [Units/volume] in Serum or Plasma 0.45-5.33[facility] HospitalTriglyceride [Mass/volume] in Serum or PlasmaOrdered By: Maurice Foote on 19-37-1330Eezkvyuoeifk [Mass/Vol]Triglyceride [Mass/volume] in Serum or PlasmaHigh0-149[facility] Comment on above:TRIG ATP III CLASSIFICATIONTRIG less than 150 mg/dL NormalTRIG 150-199 mg/dL Borderline highTRIG 200-500 mg/dL High TRIG greater than 500 mg/dL Very highStandard traceable to the Center for Disease Conrtrol and Prevention (CDC) test method.Vitamin B12on 05-95-2473Rwjeqxmdm (Vitamin B12) [Mass/Vol]175 pg/fXJdx426-080Hul [facility] Physician [facility] WesleyComment on above:Performed By: #### SCAN CBC, CK, CMP, PT, PTT, HS TROP #### [facility] [address] [place], [place] [id number] [facility]ICAL CENTERVitamin B12 ser/plasOrdered By: Mikey Rose on 12-30-2024 Cobalamin (Vitamin B12) [Mass/Vol]Vitamin B12 ser/htpvWib450-531XxdnlqbddToledo HospitalAlanine aminotransferase [Enzymatic activity/volume] in Serum or PlasmaOrdered By: Olesya Hutton on 64-09-4516JYZ [Catalytic activity/Vol]Alanine aminotransferase [Enzymatic activity/volume] in Serum or Plasma7-52T[facility] HospitalAlbumin [Mass/volume] in Serum or Plasma by Bromocresol green (BCG) dye binding methoOrdered By: Olesya Hutton on 90-47-1344Gephsba BCG dye [Mass/Vol]Albumin [Mass/volume] in Serum or Plasma by Bromocresol green (BCG) dye binding metho3.5-5.7FUniversity Hospitals TriPoint Medical CenterAlkaline phosphatase [Enzymatic activity/volume] in Serum or PlasmaOrdered By: Olesya Hutton on 45-49-7062TBE [Catalytic activity/Vol]Alkaline phosphatase [Enzymatic activity/volume] in Serum or Crybcc38-789ArfdvutbuToledo HospitalAmphetamine Screen Ql (U)Ordered By: Maurice Foote on 12-86-4091Apdzvpwhgyrx Ql (U)Amphetamines screenNegativeToledo HospitalAspartate aminotransferase [Enzymatic activity/volume] in Serum or PlasmaOrdered By: Olesya Hutton on 95-94-8022MQA [Catalytic activity/Vol]Aspartate aminotransferase [Enzymatic activity/volume] in Serum or Euvpsq55-03JijarlwbnToledo HospitalBarbiturates [Presence] in Urine by Screen methodOrdered By: Maurice Foote on 75-08-5880Hkblvdtlilsq Screen Ql (U)Barbiturates [Presence] in Urine by Screen methodNegativeToledo HospitalBasophils Auto (Bld) [#/Vol]Ordered By: Olesya Hutton on 66-32-5033Twizwgpkr (Bld) [#/Vol] Automated basophil count0.0-0.2FUniversity Hospitals TriPoint Medical CenterBasophils/100 WBC Auto (Bld)Ordered By: Olesya Hutton on 23-26-3205Mtavezjtl/100 WBC (Bld) Automated basophil %.T[facility]edo HospitalBenzodiazepines Screen Ql (U)Ordered By: Maurice Foote on 96-64-0767Slflqknltwpleoc Ql (U)Benzodiazepines [Presence] in Urine by Screen methodHighNegativeToledo HospitalBenzoylecgonine [Presence] in Urine by Screen methodOrdered By: Maurice Foote on 13-10-1032Kuuvzqtfbsniqam Screen Ql (U)Benzoylecgonine [Presence] in Urine by Screen methodNegativeToledo HospitalBilirubin.total [Mass/volume] in Serum or PlasmaOrdered By: Olesya Hutton on 12-29-2024 Bilirubin [Mass/Vol]Bilirubin.total [Mass/volume] in Serum or Plasma0.3-1.0 [facility] HospitalBlood carbon dioxide, total measurement by calculation (moles/volume)Ordered By: Maurice Foote on 96-64-9918XO6 Calc (Bld) [Moles/Vol]Blood carbon dioxide, total measurement by calculation (moles/volume) -T[facility]edo HospitalCOVID Cepheid NegativeOrdered By: Olesya Hutton on 81-69-3369HMMX-CoV-2 (COVID-19) Ab IA QlCOVID CepheidNegative [facility] HospitalComment on above:This is a duplicate Cepheid Xpert Xpress CoV-2/Flu/RSV Plus RNA by RT-PCR result to be used for statistical tracking purpose only.COVID-19 / Flu A/B / RSV PCRon 95-74-9459HQMW-CoV-2 (COVID-19) RNA ANGÉLICA+probe Ql (Unsp spec)COVID-19 Cepheid Result Negative for SARS-CoV-2 RNA by RT-PCR Flu A Cepheid Result Negative for Flu A RNA by RT-PCR Flu B Cepheid Result Negative for Flu B RNA by RT-PCR RSV Cepheid Result Negative for RSV RNA by RT-PCR COVID19 Blank Space Reference: Negative COVID19 Blank Space Cepheid Disclaimer The Cepheid Xpert Xpress CoV-2/Flu/RSV [...] or Cepheid Disclaimer revoked sooner. PERFORMED BY: [place] [address] PATHOLOGIST MEDICAL LABORATORY SPECIALIST GRACIE OLMOS M.D.[facility] Physician GroupComment on above: Performed By: #### GLULS #### Point of Care testing ,CT angio neckon 02-78-0985OF angio neckTHE [place] [address] CT Scan Report Signed Patient: Rod Mathias MR#: [id number] 1426 : 1960 Acct:[id number] Age/Sex: 64 / M ADM Date: 12/29/24 Loc: ER Room: Type: PRE ER Attending Dr: Copies to: Olesya Hutton MD Ordering Provider: Olesya Hutton MD Date of Service: 12/29/24 CT/CT angio head: R sided weakness, lkw 12/28/24 0800 ([id number]) CT/CT angio neck: R sided weakness, lkw 12/28/24 0800 CTA Head and Neck TECHNIQUE: Axial imaging of the head and neck with 2-D and 3-D reconstruction. 90cc of Isovue-370. The CT exam was performed using one or more the following dose reduction techniques: Automated exposure control, adjustment of the MA and/or Kv according to patient size, or use of the iterative reconstruction technique. Stenoses were measured using the NASCET criteria. COMPARISON: None HISTORY: Acute confusion. Right-sided weakness. The visualized aortic arch and great vessels are unremarkable. Subclavian arteries are patent No carotid dissection, critical stenosis or occlusion identified. No vertebral dissection, occlusion or abrupt cut off identified. The carotid siphons and vertebral basilar systems are patent. No intracranial aneurysm, dissection, abrupt cut off or critical stenosis identified.. . 14 mm left thyroid nodule. Additional smaller nodules suspected. C5-6 fixation. Degenerative change of the cervical spine. CT/CT angio head IMPRESSION: No occlusion, critical stenosis or dissection of the extracranial or intracranial circulation. Thyroid nodules measuring up to 14 mm. Impression dictated by: Steve Thurston M.D.12/29/2024 4:29 PM Dictation Location: [place] [address] Transcribed By: [facility] 12/29/24 1629 Dictated By: Steve Thurston DO 12/29/24 1622 Signed By: 12/29/[address] [place] [address] Physician GroupCT head stroke alert [place] 69-55-8977SP head stroke alert wo [facility] [place] [address] [place] [address] CT Scan Report Signed Patient: Rod Mathias MR#: [id number] 1426 : 1960 Acct:[id number] Age/Sex: 64 / M ADM Date: 12/29/24 Loc: ER Room: Type: PRE ER Attending Dr: Copies to: Olesya Hutton MD Ordering Provider: Olesya Hutton MD Date of Service: 12/29/24 CT/CT head stroke alert wo con: stroke Unenhanced head CTstroke standby TECHNIQUE: Contiguous axial imaging of the head. The CT exam was performed using one or more the following dose reduction techniques: Automated exposure control, adjustment of the MA and/or Kv according to patient size, or use of the iterative reconstruction technique. COMPARISON: 07/24/2023 HISTORY: Confusion. Right-sided weakness. VENTRICLES: Within normal limits ATROPHY: None BRAIN PARENCHYMA: Adequate daniels-white matter differentiation identified. HEMORRHAGE: None HERNIATION: No mass effect or herniation INFARCTION: No recent vascular distribution infarction is seen. EXTRA-AXIAL FLUID COLLECTIONS None MIDBRAIN: Unremarkable MARIO: Unremarkable MEDULLA: Unremarkable SINUSES: Unremarkable ORBITS: Grossly unremarkable MASTOIDS: Unremarkable BONY STRUCTURES Intact ADDITIONAL FINDINGS: CT/CT head stroke alert wo con IMPRESSION: No acute findings. Preliminary 3:45 PM 12/29/2024 Impression dictated by: Steve Thurston M.D.12/29/2024 3:48 PM Dictation Location: [place] [address] Transcribed By: [facility] 12/29/24 1548 Dictated By: Steve Thurston DO 12/29/24 1542 Signed By: 12/29/24 1548[facility] Physician GroupCalcium [Mass/volume] in Serum or PlasmaOrdered By: Olesya Hutton on 25-90-8144Ltjrobw [Mass/Vol]Calcium [Mass/volume] in Serum or Plasma8.6-10.3FUniversity Hospitals TriPoint Medical Center Cannabinoids [Presence] in Urine by Screen methodOrdered By: Maurice Foote on 43-90-3106Iipfrbbhidmr Screen Ql (U)Cannabinoids [Presence] in Urine by Screen methodNegativeToledo HospitalComment on above:These are unconfirmed results and should not be used for legal purposes. Drug Cut-Off Concentration: AMPH 1000 ng/mL CAMI 200 ng/mL AAMIR 200 ng/mL COCM 300 ng/mL OP 300 ng/mL PCP 25 ng/mL THC 20 ng/mLCarbon dioxide, total [Moles/volume] in Serum or PlasmaOrdered By: Olesya Hutton on 47-60-4827KD9 [Moles/Vol]Carbon dioxide, total [Moles/volume] in Serum or Rfhmoy06.0-31.0T[facility] HospitalCepheid COVID PCR Negativeon 58-92-3738PTBC-CoV-2 (COVID-19) RNA ANGÉLICA+probe Ql (Unsp spec)NegativeNormalNegativeThe [facility] Physician GroupComment on above:Result Comment: This is a duplicate CepMedicAnimal.comid Xpert Xpress CoV-2/Flu/RSV Plus RNA by RT-PCR result to be used for statistical tracking purpose only. PERFORMED BY: [place] [address] PATHOLOGIST MEDICAL LABORATORY SPECIALIST GRACIE OLMOS M.D.Performed By: #### GLULS #### Point of Care testing ,Chloride (Bld) [Moles/Vol]Ordered By: Maurice Foote on 62-50-2445Brmkvqfl [Moles/Vol]Whole blood chloride ypoddlbfoqo90-841TjckxlgfxToledo HospitalChloride [Moles/volume] in Serum or PlasmaOrdered By: Olesya Hutton on 15-57-2117Cnasaavy [Moles/Vol]Chloride [Moles/volume] in Serum or PlasmaHigh 98-107T[facility] HospitalComprehensive Metabolic Panelon 46-97-6270Exhbktg [Mass/Vol]4.5 g/dLNormal3.5-5.7The [facility] Comment on above:Performed By: #### SCAN CBC, CK, CMP, PT, PTT, HS TROP #### [facility] [address] [place] [address] USAAlbumin/Globulin [Mass ratio]1.4 {ratio}NormalThe [facility] Physician GroupComment on above:Performed By: #### SCAN CBC, CK, CMP, PT, PTT, HS TROP #### [facility] [address] [place] [address] USAALP [Catalytic activity/Vol]96 U/IMcyyfs24-781Pdu [facility] Physician GroupComment on above:Performed By: #### SCAN CBC, CK, CMP, PT, PTT, HS TROP #### [facility] [address] [place] [id number] USAALT [Catalytic activity/Vol]36 U/LNormal7-52The [facility] Physician GroupComment on above:Performed By: #### SCAN CBC, CK, CMP, PT, PTT, HS TROP #### [address] [place] [address] USAAnion gap [Moles/Vol]12.0 mmol/LNormal6.0-15.0The [facility] Physician GroupComment on above:Performed By: #### SCAN CBC, CK, CMP, PT, PTT, HS TROP #### [place] [address] USAAST [Catalytic activity/Vol]25 U/ZDejfpy11-68Nca [facility] Physician GroupComment on above:Performed By: #### SCAN CBC, CK, CMP, PT, PTT, HS TROP #### [place] [address] USABilirubin [Mass/Vol]0.7 mg/dLNormal0.3-1.0The [facility] Physician GroupComment on above:Performed By: #### SCAN CBC, CK, CMP, PT, PTT, HS TROP #### [place] [address] USACalcium [Mass/Vol]9.4 mg/dLNormal8.6-10.3The [facility] Physician GroupComment on above:Performed By: #### SCAN CBC, CK, CMP, PT, PTT, HS TROP #### [place] [address] USAChloride [Moles/Vol]110 mmol/OBimx47-738Duy [facility] Physician GroupComment on above:Performed By: #### SCAN CBC, CK, CMP, PT, PTT, HS TROP #### [place] [address] USACO2 [Moles/Vol]22.2 mmol/MByvygo97.0-31.0The [facility] Physician GroupComment on above:Performed By: #### SCAN CBC, CK, CMP, PT, PTT, HS TROP #### [place] [address] USACreatinine [Mass/Vol]1.74 mg/dLHigh0.70-1.30The [facility] Physician GroupComment on above:Performed By: #### SCAN CBC, CK, CMP, PT, PTT, HS TROP #### [place] [address] USACreatinine Clr Calc Fjpxmuou67.00NoFormerly [facility] Physician GroupComment on above:Result Comment: PERFORMED BY: [place] [address] PATHOLOGIST MEDICAL LABORATORY SPECIALIST GRACIE OLMOS M.D.Performed By: #### SCAN CBC, CK, CMP, PT, PTT, HS TROP #### [place] [address] USAEstimated GFR42.703 mL/MinNoFormerly [facility] Physician [facility] WesleyComment on above:Performed By: #### SCAN CBC, CK, CMP, PT, PTT, HS TROP #### [place] [address] USAGlobulin (S) [Mass/Vol]3.2 g/dLNoFormerly [facility] Physician [facility] WesleyComment on above:Performed By: #### SCAN CBC, CK, CMP, PT, PTT, HS TROP #### [place] [address] USAGlucose [Mass/Vol]136 mg/cTPhrx63-891Uup [facility] Physician GroupComment on above:Result Comment: Random Glucose Reference Range is dependent on time and content of last meal. Glucose of more than 200 mg/dL in a nonstressed, ambulatory subject supports the diagnosis of Diabetes Mellitus. ADA recommended reference rangePerformed By: #### SCAN CBC, CK, CMP, PT, PTT, HS TROP #### [place] [address] USAPotassium [Moles/Vol]4.2 mmol/LNormal3.5-5.1The [facility] Physician GroupComment on above:Performed By: #### SCAN CBC, CK, CMP, PT, PTT, HS TROP #### [place] [address] USAProtein [Mass/Vol]7.7 g/dLNormal6.4-8.9The [facility] Physician GroupComment on above:Performed By: #### SCAN CBC, CK, CMP, PT, PTT, HS TROP #### [address] [place] [address] USASodium [Moles/Vol]140 mmol/DLtrcts000-623Civ [facility] Physician GroupComment on above:Performed By: #### SCAN CBC, CK, CMP, PT, PTT, HS TROP #### [facility] [address] [place] [address] USAUrea nitrogen [Mass/Vol]20 mg/dLNormal7-25The [facility] Physician GroupComment on above:Performed By: #### SCAN CBC, CK, CMP, PT, PTT, HS TROP #### [facility] [address] [place] [address] USACreatine Kinaseon 63-43-0660MR [Catalytic activity/Vol]76 U/ONvvboa34-337Oqv [facility] Physician GroupComment on above:Performed By: #### SCAN CBC, CK, CMP, PT, PTT, HS TROP #### [facility] [address] [place] [address] USACreatine kinase [Enzymatic activity/volume] in Serum or PlasmaOrdered By: Olesya Hutton on 84-23-8627UT [Catalytic activity/Vol] Creatine kinase [Enzymatic activity/volume] in Serum or Jhiruz23-662YgdizixufToledo HospitalCreatinine (Bld) [Mass/Vol]Ordered By: Maurice Foote on 89-59-6968Ivuasfbfgb [Mass/Vol]Whole blood creatinine measurementHigh0.6-1.3 [facility] HospitalComment on above:ER/ESD physician is notified/shown all ISTAT results.Critical values may be confirmed by laboratory testing ifdeemed necessary by ER attending doctor.Creatinine [Mass/volume] in Serum or PlasmaOrdered By: Olesya Hutton on 62-78-6956Dholrvjmbf [Mass/Vol] Creatinine [Mass/volume] in Serum or PlasmaHigh0.70-1.30T[facility] HospitalDrug Screen,Urineon 56-90-4865Aezpvwqtrzt Screen,UrineNegative NormalNegativeThe [facility] Physician GroupComment on above:Performed By: #### SCAN CBC, CK, CMP, PT, PTT, HS TROP #### [facility] [address] [place] [address] USABarbiturate Screen,UrineNegativeNormalNegativeThe [facility] Physician GroupComment on above:Performed By: #### SCAN CBC, CK, CMP, PT, PTT, HS TROP #### [place] [address] USABenzodiazepines Screen,UrinePositiveHighNegativeTri-[facility] Physician GroupComment on above:Performed By: #### SCAN CBC, CK, CMP, PT, PTT, HS TROP #### [place] [address] USACannabinoid Screen,UrineNegativeNormalNegativeThe [facility] Physician GroupComment on above:Result Comment: These are unconfirmed results and should not be used for legal purposes. Drug Cut-Off Concentration: AMPH 1000 ng/mL CAMI 200 ng/mL AAMIR 200 ng/mL COCM 300 ng/mL OP 300 ng/mL PCP 25 ng/mL THC 20 ng/mL PERFORMED BY: [place] [address] PATHOLOGIST MEDICAL LABORATORY SPECIALIST GRACIE OLMOS M.D.Performed By: #### SCAN CBC, CK, CMP, PT, PTT, HS TROP #### [place] [address] USACocaine Screen,UrineNegativeNormalNegativeThe [facility] Physician GroupComment on above:Performed By: #### SCAN CBC, CK, CMP, PT, PTT, HS TROP #### [place] [address] USAOpiate Screen,UrinePositiveHighNegativeThe [facility] Physician GroupComment on above:Performed By: #### SCAN CBC, CK, CMP, PT, PTT, HS TROP #### [place] [address] USAPhencyclidine Screen,UrineNegativeNormalNegativeThe [facility] Physician GroupComment on above:Performed By: #### SCAN CBC, CK, CMP, PT, PTT, HS TROP #### [place] [address] USAECG 12 lead ECGon 68-54-7093LDL 12 lead [facility]GTHE [facility] [place] [address] [place] [address] Electrocardiograph Report Signed Patient: Rod Mathias MR#: [id number] 1426 : 1960 Acct:[id number] Age/Sex: 64 / M ADM Date: 12/29/24 Loc: Room: [address] [place] [address] Type: ADM INOo Attending Dr: Maurice Foote MD Ordering Provider: Olesya Hutton MD Date of Service: 12/29/2409/14/1523 ECG/ECG 12 lead ECG: Neuro Symptoms/Deficit Copies to: Test Reason : Blood Pressure : */* mmHG Vent. Rate : 76 BPM Atrial Rate : 76 BPM P-R Int : 170 ms QRS Dur : 92 ms QT Int : 368 ms P-R-T Axes : 63 35 54 degrees QTcB Int : 414 ms Normal sinus rhythm Incomplete right bundle branch block Nonspecific T wave abnormality Confirmed by Olesya Hutton MD ([id number]) on 12/29/2024 7:14:06 PM Referred By: Electronically Signed By: Olesya Hutton MD Transcribed By: MUS Signed By Olesya Hutton MD 12/19 11/[address] [place] [address] Physician GroupEosinophils Auto (Bld) [#/Vol] Ordered By: Olesya Hutton on 14-17-8605Ofiydgsgual (Bld) [#/Vol]Automated eosinophil count0.0-0.45T[facility]edo HospitalEosinophils/100 WBC Auto (Bld)Ordered By: Olesya Hutton on 98-20-2669Wxvjyghljai/100 WBC (Bld) Automated eosinophil %.T[facility]edo HospitalErythrocyte distribution width Auto (RBC) [Ratio]Ordered By: Oelsya Hutton on 24-06-2590Yqjwqryijqx distribution width (RBC) [Ratio]Erythrocyte distribution width [Ratio] by Automated count12.0-14.8T[facility]edo HospitalErythrocyte morphology finding [Identifier] in BloodOrdered By: Olesya Hutton on 12-15-8386LFA morphology finding Nom (Bld)RBC morphologyNormalToledo HospitalGlobulin Calc (S) [Mass/Vol]Ordered By: Olesya Hutton on 12-29-2024 Globulin (S) [Mass/Vol]Serum globulin measurement by calculation (mass/volume) [facility] HospitalGlucose Glucometer (BldC) [Mass/Vol]Ordered By: Maurice Foote on 49-18-7750Emnsvym [Mass/Vol]Capillary blood glucose measurement by glucometer (mass/volume)Dyft73-492AyukkwclxToledo HospitalGlucose Glucometer (BldC) [Mass/Vol]Ordered By: Olesya Hutton on 40-96-8463Zuyvphr [Mass/Vol]Capillary blood glucose measurement by glucometer (mass/volume) [facility] HospitalComment on above:Random Glucose Reference Range is dependent on time and content of last meal. Glucose of more than 200 mg/dL in a nonstressed, ambulatory subject supports the diagnosis of Diabetes Mellitus.Glucose Poct Glucometerson 13-34-4388Ayjyfam [Mass/Vol]101 mg/dLNormal The [facility] Physician GroupComment on above:Result Comment: Random Glucose Reference Range is dependent on time and content of last meal. Glucose of more than 200 mg/dL in a nonstressed, ambulatory subject supports the diagnosis of Diabetes Mellitus. PERFORMED BY: [address] [place] [address] PATHOLOGIST MEDICAL LABORATORY SPECIALIST GRACIE OLMOS M.D.Performed By: #### GLULS #### Point of Care testing ,Ymfwgst5Vms8: Cleaned MeterNoFormerly [facility] Physician GroupComment on above: Result Comment: PERFORMED BY: [facility] [address] [place] [address] PATHOLOGIST MEDICAL LABORATORY SPECIALIST GRACIE OLMOS M.D.Performed By: #### GLULS #### Point of Care testing ,Glucose [Mass/Vol]134 mg/dLUF Health Shands Hospital Physician GroupComment on above: Result Comment: Random Glucose Reference Range is dependent on time and content of last meal. Glucose of more than 200 mg/dL in a nonstressed, ambulatory subject supports the diagnosis of Diabetes Mellitus.Performed By: #### GLULS #### Point of Care testing ,Glucose [Mass/volume] in Serum or PlasmaOrdered By: Olesya Hutton on 24-82-2894Bfuvadz [Mass/Vol]Glucose [Mass/volume] in Serum or DqtxfcRiha55-271 [facility] HospitalComment on above:ADA recommended reference rangeRandom Glucose Reference Range is dependent on time and content of last meal. Glucose of more than 200 mg/dL in a nonstressed, ambulatory subject supports the diagnosisof Diabetes Mellitus.Hematocrit Auto (Bld) [Volume fraction]Ordered By: Olesya Hutton on 31-93-3416Myohnvhqxv (Bld) [Volume fraction]Hematocrit [Volume Fraction] of Blood by Automated count38.8-50.0 [facility] HospitalHemoglobin Calc (Bld) [Mass/Vol]Ordered By: Maurice Foote on 92-30-1403Lfplcdnjrr (Bld) [Mass/Vol]Blood hemoglobin measurement by calculation (mass/volume)12.0-17.0[facility] Hemoglobin [Mass/volume] in BloodOrdered By: Olesya Hutton on 12-29-2024 Hemoglobin (Bld) [Mass/Vol]Hemoglobin [Mass/volume] in Blood13.0-17.0T[facility] HospitalINR in Platelet poor plasma by Coagulation assayOrdered By: Olesya Hutton on 43-29-9916QXU Coag (PPP) [Relative time]INR in Platelet poor plasma by Coagulation assayToledo HospitalComment on above:INR Therapeutic Range A) Pre- and Peroperative OAT started two weeks before surgery. NOT HIP SURGERY: 1.5 - 2.5 HIP SURGERY: 2 - 3B) Primary and secondary prevention of venous THROMBOSIS: 2 - 3C) Active venous thrombosis, pulmonary embolismand prevention of recurrent venous thrombosis: 2 - 3D) Preve ntion of arterial thromboembolismincluding patients with mechanical heart valves: 3 - 4.5ISTAT ER Chem8+ Panelon 47-82-2795Tarqqoxy [Moles/Vol]109.0 mmol/GQxlukk52-912Ikk [facility] Physician GroupComment on above:Performed By: #### GLULS #### Point of Care testing ,CO2 [Moles/Vol]25 mmol/NTejkwj12-81Mqh [facility] Physician GroupComment on above:Performed By: #### GLULS #### Point of Care testing ,Creatinine [Mass/Vol]1.9 mg/dLHigh0.6-1.3The [facility] Physician GroupComment on above:Result Comment: ER/ESD physician is notified/shown all ISTAT results. Critical values may be confirmed by laboratory testing if deemed necessary by ER attending doctor.Performed By: #### GLULS #### Point of Care testing ,Glucose [Mass/Vol]133 mg/hUKnud23-732Tsy [facility] Physician GroupComment on above:Result Comment: PERFORMED BY: [facility] [place] [address] PATHOLOGIST MEDICAL LABORATORY SPECIALIST GRACIE OLMOS M.D.Performed By: #### GLULS #### Point of Care testing ,Hemoglobin (Bld) [Mass/Vol]15.6 g/cKEjbqrn37.0-17.0The [facility] Physician GroupComment on above:Performed By: #### GLULS #### Point of Care testing ,ISTAT Ionized Calcium1.25 mol/LNormal1.12-1.32The [facility] Comment on above:Performed By: #### GLULS #### Point of Care testing ,Potassium [Moles/Vol]4.4 mmol/LNormal3.5-4.9The [facility] Comment on above:Performed By: #### GLULS #### Point of Care testing ,Sodium [Moles/Vol]144 mmol/KAdwzif956-400Blf [facility] Physician GroupComment on above:Performed By: #### GLULS #### Point of Care testing ,Urea nitrogen [Mass/Vol]25 mg/dLNormal8-26The [facility] Physician GroupComment on above:Performed By: #### GLULS #### Point of Care testing ,ISTAT ER Chem8+ PanelOrdered By: Maurice Foote on 66-70-3844Bmhevmiwcl (Bld) [Volume fraction]46.0 %Khqjrz65.0-51.0[facility]edo HospitalComment on above:Performed By: #### GLULS #### Point of Care testing ,Leukocytes [#/volume] corrected for nucleated erythrocytes in Blood by Automated counOrdered By: Olesya Hutton on 73-22-6765RFB corrected for nucl RBC Auto (Bld) [#/Vol]Leukocytes [#/volume] corrected for nucleated erythrocytes in Blood by Automated counHigh4.1-10.5FUniversity Hospitals TriPoint Medical CenterLymphocytes Auto (Bld) [#/Vol]Ordered By: Olesya Hutton on 17-87-2875Ekjtvyyyzui (Bld) [#/Vol]Lymphocytes [#/volume] in Blood by Automated count1.00-4.8[facility] HospitalLymphocytes/100 WBC Auto (Bld)Ordered By: Olesya Hutton on 11-71-2943Fyxfidxuqqx/100 WBC (Bld)Lymphocytes/100 leukocytes in Blood by Automated count.[facility] HospitalH Auto (RBC) [Entitic mass] Ordered By: Olesya Hutotn on 48-28-8722SPY (RBC) [Entitic mass]MCH [Entitic mass] by Automated count27.5-35.2FUniversity Hospitals TriPoint Medical CenterMCHC Auto (RBC) [Mass/Vol]Ordered By: Olesya Hutton on 04-82-0709BDRB (RBC) [Mass/Vol] MCHC [Mass/volume] by Automated count32.5-35.6FUniversity Hospitals TriPoint Medical Center MCV Auto (RBC) [Entitic vol]Ordered By: Olesya Hutton on 90-01-5088MGB (RBC) [Entitic vol]MCV [Entitic volume] by Automated count83.5-101T[facility]edo HospitalMR head/brain wo conon 38-34-3252ID head/brain wo [facility] [place] [address] MRI Report Signed Patient: Rod Mathias MR#: [id number] : 1960 Acct:[id number] Age/Sex: 64 / M ADM Date: 12/29/24 Loc: 3T Room: [address] [place] [address] Type: ADM INOo Attending Dr: Maurice Foote MD Copies to: Maurice Foote MD Ordering Provider: Maurice Foote MD Date of Service: 12/29/24 MR/MR head/brain wo con: WOrsening Rt sided weakness MRI the Brain without contrast TECHNIQUE: Multiplanar T1 and T2-weighted imaging of the brain. HISTORY: Prior history of stroke. Chronic right-sided deficit. Worsening right- sided weakness. COMPARISON: Unenhanced head CT 12/29/2024 VENTRICLES: Unremarkable BRAIN VOLUME: Adequate volume of brain parenchyma identified. BRAIN PARENCHYMAL SIGNAL INTENSITY: Scattered foci of increased T2/FLAIR signal intensity of the brain parenchyma is consistent with chronic small vessel ischemic changes. BLEED: None MASS EFFECT: No mass effect DIFFUSION RESTRICTION: None GRADIENT ECHO PARENCHYMAL SIGNAL LOSS: None MIDBRAIN: The midbrain structures are unremarkable. MARIO: Unremarkable MEDULLA: Unremarkable INTERNAL AUDITORY CANALS: Unremarkable SINUSES: Unremarkable ORBITS: Grossly unremarkable MASTOIDS: Unremarkable ENHANCEMENT: No contrast enhancement given MR/MR head/brain wo con IMPRESSION: No acute intracranial process. Mild chronic small vessel ischemic changes. Impression dictated by: Steve Thurston M.D.12/29/2024 10:47 PM Dictation Location: [place] [address] Transcribed By: [facility] 12/29/242246 Dictated By: Steve Thurston DO 12/29/242244 Signed By: 12/29/24 2247U[facility] Hospital Physician GroupMagnetic resonance imaging reportOrdered By: Steve Thurston on 44-73-8416Dkrju reportTHE BELLEVUE [facility] Main [place] [address] [place] [address] MRI Report Signed Patient: Rod Mathias MR#: [id number] : 1960 Acct:[id number] Age/Sex: 64 / M ADM Date: 5 Loc: 3T Room: [address] [place] [address] Type: ADM INOo Attending Dr: Maurice Foote MD Copies to: Maurice Foote MD~ Ordering Provider: Maurice Foote MD Date of Service: 12/29/24 MR/MR head/brain wo con: WOrsening Rt sided weakness MRI the Brain without contrast TECHNIQUE: Multiplanar T1 and T2-weighted imaging of the brain. HISTORY: Prior history of stroke. Chronic right-sided deficit. Worsening right- sided weakness. COMPARISON: Unenhanced head CT 12/29/2024 VENTRICLES: Unremarkable BRAIN VOLUME: Adequate volume of brain parenchyma identified. BRAIN PARENCHYMAL SIGNAL INTENSITY: Scattered foci of increased T2/FLAIR signal intensity of the brain parenchyma is consistent with chronic small vessel ischemic changes. BLEED: None MASS EFFECT: No mass effect DIFFUSION RESTRICTION: None GRADIENT ECHO PARENCHYMAL SIGNAL LOSS: None MIDBRAIN: The midbrain structures are unremarkable. MARIO: Unremarkable MEDULLA: Unremarkable INTERNAL AUDITORY CANALS: Unremarkable SINUSES: Unremarkable ORBITS: Grossly unremarkable MASTOIDS: Unremarkable ENHANCEMENT: No contrast enhancement given MR/MR head/brain wo con IMPRESSION: No acute intracranial process. Mild chronic small vessel ischemic changes. Impression dictated by: Steve Thurston M.D.12/29/2024 10:47 PM Dictation Location: [place] [address] Transcribed By: [facility] 12/29/242246 Dictated By: Steve Thurston DO 12/29/242244 Signed By: 12/29/242246 [facility] HospitalMonocyte distribution width [Entitic volume] in Blood by AutomatedOrdered By: Olesya Hutton on 84-10-9451Rumgowji distribution width Auto (Bld) [Entitic vol]Monocyte distribution width [Entitic volume] in Blood by Automated0.00-20.00[facility] HospitalMonocytes Auto (Bld) [#/Vol]Ordered By: Olesya Hutton on 36-71-8280Lwkhscsuh (Bld) [#/Vol] Automated blood monocyte count0.0-0.8[facility] Monocytes/100 WBC Auto (Bld)Ordered By: Olesya Hutton on 12-29-2024 Monocytes/100 WBC (Bld)Automated monocyte %.[facility] Neutrophils Auto (Bld) [#/Vol]Ordered By: Olesya Hutton on 12-29-2024 Neutrophils (Bld) [#/Vol]Neutrophils [#/volume] in Blood by Automated countHigh 1.8-7.7FUniversity Hospitals TriPoint Medical CenterNeutrophils/100 WBC Auto (Bld)Ordered By: Olesya Hutton on 08-83-6580Xhzcfsfvski/100 WBC (Bld)Automated neutrophil %. [facility] HospitalNo Panel InformationOrdered By: Olesya Hutton on 48-95-7780Qvoiuxxiq GFR (CKD-EPI)42.703 mL/MinToledo HospitalPharmacy Creatinine Clearance (Chem53.00[facility] Bedside Glucose CommentGlu2: cleaned meterToledo Hospital Nucleated erythrocytes [Presence] in Blood by Automated countOrdered By: Olesya Hutton on 59-42-8532Dvbuxfdta RBC Auto Ql (Bld)Nucleated erythrocytes [Presence] in Blood by Automated count0-0.5FUniversity Hospitals TriPoint Medical Center Opiates [Presence] in Urine by Screen methodOrdered By: Maurice Foote on 04-59-7732Xnzltii Screen Ql (U)Opiates [Presence] in Urine by Screen methodHigh NegativeToledo HospitalPartial Thromboplastin Timeon 19-07-4705eLBN Coag (Bld) [Time]23.2 sLow25.1-36.5The [facility] Comment on above:Result Comment: A hematocrit value greater than 55% may lead to inaccurate results in coagulation testing. Patients having hematocrit values >55% require a special collection tube for coagulation studies. Please contact the laboratory at [phone] for redraw instructions. PERFORMED BY: [place] [address] PATHOLOGIST MEDICAL LABORATORY SPECIALIST GRACIE OLMOS M.D.Performed By: #### SCAN CBC, CK, CMP, PT, PTT, HS TROP #### [facility] [address] [place] [address] USAPhencyclidine Screen Ql (U)Ordered By: Maurice Foote on 45-71-8272Jabnkgmcfgkno Ql (U)Phencyclidine [Presence] in Urine by Screen method NegativeToledo HospitalPlatelet adequacy [Presence] in Blood by Light microscopyOrdered By: Olesya Hutton on 63-37-5864Iamxehsiv LM Ql (Bld) Platelet adequacy [Presence] in Blood by Light microscopyNoOhioHealth Shelby HospitalPlatelet mean volume Auto (Bld) [Entitic vol]Ordered By: Olesya Hutton on 59-83-0604Rvcjsvvv mean volume (Bld) [Entitic vol]Platelet mean volume [Entitic volume] in Blood by Automated count6.6-10.1FUniversity Hospitals TriPoint Medical CenterPlatelet morphology finding [Identifier] in BloodOrdered By: Olesya Hutton on 82-99-6693Jyhaxipb morphology finding Nom (Bld)Platelet morphology finding [Identifier] in BloodNoOhioHealth Shelby Hospital Platelets Auto (Bld) [#/Vol]Ordered By: Olesya Hutton on 26-11-6127Ludixhmsq (Bld) [#/Vol]Platelets [#/volume] in Blood by Automated rfxoq667-460DvkkfywyaToledo HospitalPotassium (Bld) [Moles/Vol]Ordered By: Maurice Foote on 67-62-7729Oblkrlrny [Moles/Vol]Whole blood potassium measurement3.5-4.9[facility] HospitalPotassium [Moles/volume] in Serum or PlasmaOrdered By: Olesya Hutton on 65-82-6423Nhtvopumd [Moles/Vol]Potassium [Moles/volume] in Serum or Plasma3.5-5.1FUniversity Hospitals TriPoint Medical CenterProtein [Mass/volume] in Serum or PlasmaOrdered By: Olesya Hutton on 61-63-8754Xqmrcsf [Mass/Vol]Protein [Mass/volume] in Serum or Plasma6.4-8.9[facility] Prothrombin Time INRon 27-54-3823DYO Coag (PPP) [Relative time]1.0 {INR}Normal The [facility] Physician GroupComment on above:Result Comment: INR Therapeutic Range A) Pre- and [...] patients with mechanical heart valves: 3 - 4.5Performed By: #### SCAN CBC, CK, CMP, PT, PTT, HS TROP #### [facility] [address] [place] [address] USAPT Coag (PPP) [Time]11.7 sNormal9.0-12.9The [facility] Physician GroupComment on above:Result Comment: A hematocrit value greater than 55% may lead to inaccurate results in coagulation testing. Patients having hematocrit values >55% require a special collection tube for coagulation studies. Please contact the laboratory at [phone] for redraw instructions.Performed By: #### SCAN CBC, CK, CMP, PT, PTT, HS TROP #### [facility] [address] [place] [address] USAProthrombin time (PT)Ordered By: Olesya Hutton on 68-51-0550AX Coag (PPP) [Time]Prothrombin time (PT)9.0-12.9[facility] HospitalComment on above:A hematocrit value greater than 55% may lead to inaccurate results in coagulation testing. Patientshaving hematocrit values >55% require a special collection tube for coagulation studies. Please contact the laboratory at [phone] for redraw instructions.RBC Auto (Bld) [#/Vol]Ordered By: Olesya Hutton on 08-37-0392PIX (Bld) [#/Vol]Erythrocytes [#/volume] in Blood by Automated count3.90-5.60[facility] HospitalRespiratory specimen influenza A virus, influenza B virus, respiratory syncytical virOrdered By: Olesya Hutton on 72-49-6152CTPG-CoV-2 (COVID-19) RNA ANGÉLICA+probe Ql (Unsp spec)Respiratory specimen influenza A virus, influenza B virus, respiratory syncytical virAultman Hospitalcan and CBCon 12-29-2024 Basophils (Bld) [#/Vol]0.1 10*3/uLNormal0.0-0.2The [facility] Comment on above:Performed By: #### SCAN CBC, CK, CMP, PT, PTT, HS TROP #### [facility] [address] [place] [id number] USABasophils/100 WBC (Bld)0.5 %Normal.The [facility] Physician GroupComment on above:Performed By: #### SCAN CBC, CK, CMP, PT, PTT, HS TROP #### [facility] [address] [place] [id number] USAEosinophils (Bld) [#/Vol]0.1 10*3/uLNormal0.0-0.45The [facility] Physician GroupComment on above:Performed By: #### SCAN CBC, CK, CMP, PT, PTT, HS TROP #### [facility] [address] [place] [address] USAEosinophils/100 WBC (Bld)0.6 %Normal.The [facility] Physician GroupComment on above:Performed By: #### SCAN CBC, CK, CMP, PT, PTT, HS TROP #### [place] [address] USAErythrocyte distribution width (RBC) [Ratio]14.3 %Normal 12.0-14.8The [facility] Physician GroupComment on above:Performed By: #### SCAN CBC, CK, CMP, PT, PTT, HS TROP #### [place] [address] USAHematocrit (Bld) [Volume fraction]43.7 %Lutxfu87.8-50.0The [facility] Physician GroupComment on above:Performed By: #### SCAN CBC, CK, CMP, PT, PTT, HS TROP #### [place] [address] USAHemoglobin (Bld) [Mass/Vol]14.5 g/fIWanehs07.0-17.0The [facility] Physician GroupComment on above:Performed By: #### SCAN CBC, CK, CMP, PT, PTT, HS TROP #### [place] [address] USALymphocytes (Bld) [#/Vol]3.2 10*3/uLNormal1.00-4.8The [facility] Physician GroupComment on above:Performed By: #### SCAN CBC, CK, CMP, PT, PTT, HS TROP #### [place] [address] USALymphocytes/100 WBC (Bld)24.4 %Normal.The [facility] Physician GroupComment on above:Performed By: #### SCAN CBC, CK, CMP, PT, PTT, HS TROP #### [place] [address] USAMCH (RBC) [Entitic mass]31.2 cmYyjtpq89.5-35.2The [facility] Physician GroupComment on above:Performed By: #### SCAN CBC, CK, CMP, PT, PTT, HS TROP #### [place] [address] USAMCV (RBC) [Entitic vol]93.9 kVToidiz63.5-101The [facility] Physician GroupComment on above:Performed By: #### SCAN CBC, CK, CMP, PT, PTT, HS TROP #### [place] [address] USAMean Corpuscular HGB Conc33.3 g/xPIgidzi54.5-35.6The [facility] Physician GroupComment on above:Performed By: #### SCAN CBC, CK, CMP, PT, PTT, HS TROP #### [place] [address] USAMonocytes (Bld) [#/Vol]0.8 10*3/uLNormal0.0-0.8The [facility] Physician GroupComment on above:Performed By: #### SCAN CBC, CK, CMP, PT, PTT, HS TROP #### [place] [address] USAMonocytes/100 WBC (Bld)18.13 %Normal0.00-20.00The [facility] Physician GroupComment on above:Performed By: #### SCAN CBC, CK, CMP, PT, PTT, HS TROP #### [place] [address] USAMonocytes/100 WBC (Bld)6.3 %Normal.The [facility] Physician GroupComment on above:Performed By: #### SCAN CBC, CK, CMP, PT, PTT, HS TROP #### [place] [address] USANeutrophils (Bld) [#/Vol]8.9 10*3/uLHigh1.8-7.7The [facility] Physician GroupComment on above:Performed By: #### SCAN CBC, CK, CMP, PT, PTT, HS TROP #### [place] [address] USANeutrophils/100 WBC (Bld)68.2 %Normal.The [facility] Physician GroupComment on above:Performed By: #### SCAN CBC, CK, CMP, PT, PTT, HS TROP #### [address] [address] USANRBC%0.1 /100{WBC}Normal0-0.5The [facility] Comment on above:Performed By: #### SCAN CBC, CK, CMP, PT, PTT, HS TROP #### [place] [address] USAPlatelet EstimateNormalNormalNormHCA Florida Trinity Hospital Physician GroupComment on above:Performed By: #### SCAN CBC, CK, CMP, PT, PTT, HS TROP #### [place] [address] USAPlatelet mean volume (Bld) [Entitic vol]8.3 fLNormal 6.6-10.1The [facility] Physician GroupComment on above:Performed By: #### SCAN CBC, CK, CMP, PT, PTT, HS TROP #### [place] [address] USAPlatelet MorphologyNormalNormalUF Health Shands Hospital Physician [facility] Health WesleyComment on above:Result Comment: PERFORMED BY: [place] [address] PATHOLOGIST MEDICAL LABORATORY SPECIALIST GRACIE OLMOS M.D.Performed By: #### SCAN CBC, CK, CMP, PT, PTT, HS TROP #### [place] [address] USAPlatelets (Bld) [#/Vol]261 10*3/aOVeszwi701-476Zsi [facility] Physician GroupComment on above:Performed By: #### SCAN CBC, CK, CMP, PT, PTT, HS TROP #### [place] [address] USARBC (Bld) [#/Vol]4.66 10*6/uLNormal3.90-5.60The [facility] Physician [facility] WesleyComment on above:Performed By: #### SCAN CBC, CK, CMP, PT, PTT, HS TROP #### [place] [address] USARBC morphology finding Nom (Bld)NormalNormalUF Health Shands Hospital Physician GroupComment on above:Performed By: #### SCAN CBC, CK, CMP, PT, PTT, HS TROP #### [facility] [address] [place] [address] USAWBC (Bld) [#/Vol]13.0 10*3/uLHigh4.1-10.5The [facility] Physician GroupComment on above:Performed By: #### SCAN CBC, CK, CMP, PT, PTT, HS TROP #### [facility] [address] [place] [address] USASerum or plasma albumin/globulin mass ratioOrdered By: Olesya Hutton on 67-30-1203Rrvkjiy/Globulin [Mass ratio]Serum or plasma albumin/globulin mass ratioAultman Hospitalerum or plasma anion gap determinationOrdered By: Olesya Hutton on 57-72-5585Orlbg gap [Moles/Vol]Serum or plasma anion gap determination6.0-15.0Aultman Hospitalodium (Bld) [Moles/Vol]Ordered By: Maurice Foote on 12-29-2024 Sodium [Moles/Vol]Whole blood sodium vlzmgtyudth863-895KtzkgswneAultman Hospitalodium [Moles/volume] in Serum or PlasmaOrdered By: Olesya Hutton on 53-84-1740Pphexd [Moles/Vol]Sodium [Moles/volume] in Serum or Brelwr337-646 [facility] HospitalTroponin I High Sensitivityon 12-29-2024 Troponin I High Kjgdwonrrsl1Htlrjz1-11Htp [facility] Physician GroupComment on above:Result Comment: The Troponin units of report have been changed to meet the Chest Pain Accreditation requirement, element EC5.M1l2. Troponin units are changed from pg/ml to ng/L. Also, the decimal is removed and results are in whole numbers. PERFORMED BY: [place] [address] PATHOLOGIST MEDICAL LABORATORY SPECIALIST GRACIE OLMOS M.D.Performed By: #### SCAN CBC, CK, CMP, PT, PTT, HS TROP #### [facility] [address] [place] [address] USATroponin I.cardiac [Mass/volume] in Serum or Plasma by Detection limit <= 0.01 ng/Ordered By: Olesya Hutton on 78-07-6224Otdrcjit I.cardiac DL <= 0.01 ng/mL [Mass/Vol]Troponin I.cardiac [Mass/volume] in Serum or Plasma by Detection limit <= 0.01 ng/0-20[facility] Comment on above:The Troponin units of report have been changed to meet the Chest Pain Accreditation requirement, element EC5.M1l2. Troponin units are changed from pg/ml to ng/L. Also, the decimal is removed and results are in whole numbers.Urea nitrogen (Bld) [Mass/Vol]Ordered By: Maurice Foote on 88-33-3355Isfa nitrogen [Mass/Vol]Blood urea nitrogen (BUN) measurement in whole blood (mass/volume)8T[facility]edo HospitalUrea nitrogen [Mass/volume] in Serum or PlasmaOrdered By: Olesya Hutton on 58-12-3789Sxcn nitrogen [Mass/Vol]Urea nitrogen [Mass/volume] in Serum or Plasma7T[facility] HospitalWBC Auto (Bld) [#/Vol]Ordered By: Olesya Hutton on 41-09-0099VFU (Bld) [#/Vol]Leukocytes [#/volume] in Blood by Automated countHigh 4.1-10.5FUniversity Hospitals TriPoint Medical CenterWhole blood ionized calcium measurement (moles/volume)Ordered By: Maurice Foote on 47-98-2082Tmzdmio.ionized (Bld) [Moles/Vol]Whole blood ionized calcium measurement (moles/volume)1.12-1.32 [facility] HospitalaPTT in Platelet poor plasma by Coagulation assayOrdered By: Olesya Hutton on 36-85-9328tRQP Coag (PPP) [Time]Activated partial thromboplastin time (aPTT) in platelet poor plasma by coagulation aLow 25.1-36.5FUniversity Hospitals TriPoint Medical CenterComment on above:A hematocrit value greater than 55% may lead to inaccurate results in coagulation testing. Patients having hematocrit values >55% require a special collection tube for coagulation studies. Please contact the laboratory at [phone] for redraw instructions. Laboratory - Hematology and Cell countson 15-01-7059MnF5g (Bld) [Mass fraction] 6.6 %[facility] Informationon 41-42-4812Thctikyebdthxi and review of laboratory resultsNormalMosaic Life Care at St. Joseph HealthcareAutomated basophil % Ordered By: Amrik Rojas on 80-95-2430Xdasobjhv/100 WBC (Bld)0.4 %Normal .[facility] HospitalComment on above:Performed By: #### GLULS #### Point of Care testing ,Automated basophil countOrdered By: Amrik Rojas on 82-87-8203Qobtzmnfa (Bld) [#/Vol]0.0 10*3/uLNormal0.0-0.2FUniversity Hospitals TriPoint Medical CenterComment on above:Result Comment: PERFORMED BY: [facility] [place] [address] PATHOLOGIST MEDICAL LABORATORY SPECIALIST RADHA CARR M.D.Performed By: #### GLULS #### Point of Care testing ,Automated blood monocyte countOrdered By: Amrik Rojas on 08-14-2024 Monocytes (Bld) [#/Vol]1.1 10*3/uLHigh0.0-0.8[facility] Comment on above:Performed By: #### GLULS #### Point of Care testing ,Automated eosinophil %Ordered By: Amrik Rojas on 08-14-2024 Eosinophils/100 WBC (Bld)1.7 %Normal.[facility] HospitalComment on above:Performed By: #### GLULS #### Point of Care testing ,Automated eosinophil countOrdered By: Amrik Rojas on 08-14-2024 Eosinophils (Bld) [#/Vol]0.2 10*3/uLNormal0.0-0.45[facility] HospitalComment on above:Performed By: #### GLULS #### Point of Care testing ,Automated monocyte %Ordered By: Amrik Rojas on 66-48-8896Sdrnfdcix/100 WBC (Bld)11.7 %Normal.[facility] HospitalComment on above: Performed By: #### GLULS #### Point of Care testing ,Automated neutrophil %Ordered By: Amrki Rojas on 08-14-2024 Neutrophils/100 WBC (Bld)54.6 %Normal.[facility] HospitalComment on above:Performed By: #### GLULS #### Point of Care testing ,Basic Metabolic Panelon 19-81-2861Lvskkvxqrz Clr Calc Uxouhcgq56.63NoFormerly [facility] Physician GroupComment on above:Result Comment: PERFORMED BY: [facility] [address] [facility] [place] [address] PATHOLOGIST MEDICAL LABORATORY SPECIALIST RADHA CARR M.D.Performed By: #### GLULS #### Point of Care testing ,GFR/1.73 sq M.predicted MDRD (S/P/Bld) [Vol rate/Area]50.938 mL/min/{1.73_m2} NormalThe [facility] Physician [facility] WesleyComment on above:Performed By: #### GLULS #### Point of Care testing ,Calcium [Mass/volume] in Serum or PlasmaOrdered By: Amrik Rojas on 16-98-9094Nqwqfbd [Mass/Vol]9.5 mg/dLPitman8.6-10.3FUniversity Hospitals TriPoint Medical CenterComment on above:Performed By: #### GLULS #### Point of Care testing ,Capillary blood glucose measurement by glucometer (mass/volume)Ordered By: [employer] on 59-63-7721Lekzyxg [Mass/Vol]129 mg/dLNoOhioHealth Shelby HospitalComment on above:Random Glucose Reference Range is dependent on time and content of last meal. Glucose of more than 200 mg/dL in a nonstressed, ambulatory subject supports the diagnosis of Diabetes Mellitus.Result Comment: Random Glucose Reference Range is dependent on time and content of last meal. Glucose of more than 200 mg/dL in a nonstressed, ambulatory subject supports the diagnosis of Diabetes Mellitus. PERFORMED BY: [facility] [address] [place] [address] PATHOLOGIST MEDICAL LABORATORY SPECIALIST RADHA CARR M.D.Performed By: #### SCAN CBC, CK, CMP, PT, PTT, HS TROP #### [facility] [address] [place] [address] USACarbon dioxide, total [Moles/volume] in Serum or Plasma Ordered By: Amrik Rojas on 68-75-4440QA6 [Moles/Vol]22.0 mmol/LNormal 21.0-31.0T[facility]edo HospitalComment on above:Performed By: #### GLULS #### Point of Care testing ,Chloride [Moles/volume] in Serum or PlasmaOrdered By: Amrik Rojas on 28-38-4950Qrsmsnzg [Moles/Vol]108 mmol/JXlln21-046UgcsnigwjToledo HospitalComment on above:Performed By: #### GLULS #### Point of Care testing ,Complete Blood Count Auto Diffon 04-04-7256Plgn Corpuscular HGB Conc33.4 g/dL Omamaq37.5-35.6The [facility] Physician GroupComment on above:Performed By: #### GLULS #### Point of Care testing ,NRBC%0.1 /100{WBC}Normal0-0.5The [facility] Physician [facility] WesleyComment on above: Performed By: #### GLULS #### Point of Care testing ,Creatinine [Mass/volume] in Serum or PlasmaOrdered By: Amrik Rojas on 55-26-5908Xskqcvowrv [Mass/Vol]1.51 mg/dLHigh0.70-1.30T[facility]edo HospitalComment on above:Performed By: #### GLULS #### Point of Care testing ,Erythrocyte distribution width [Ratio] by Automated countOrdered By: Amrik Rojas on 96-79-2856Okzzyyajyig distribution width (RBC) [Ratio]15.2 %High 12.0-14.8T[facility]edo HospitalComment on above:Performed By: #### GLULS #### Point of Care testing ,Erythrocytes [#/volume] in Blood by Automated countOrdered By: Amrik Rojas on 76-88-7118MGG (Bld) [#/Vol]4.79 10*6/uLNormal3.90-5.60T[facility]edo HospitalComment on above:Performed By: #### GLULS #### Point of Care testing ,Glucose Poct Glucometerson 48-85-3399Fvxlefq [Mass/Vol]112 mg/dLUF Health Shands Hospital Physician GroupComment on above:Result Comment: Random Glucose Reference Range is dependent on time and content of last meal. Glucose of more than 200 mg/dL in a nonstressed, ambulatory subject supports the diagnosis of Diabetes Mellitus. PERFORMED BY: [facility] [address] [place] [address] PATHOLOGIST MEDICAL LABORATORY SPECIALIST RADHA CARR M.D.Performed By: #### GLULS #### Point of Care testing ,Glucose [Mass/volume] in Serum or PlasmaOrdered By: Amrik Rojas on 08-77-1732Cjvoxlp [Mass/Vol]107 mg/bKNrab32-836HrexuvsudToledo Hospital Comment on above:ADA recommended reference rangeRandom Glucose Reference Range is dependent on time and content of last meal. Glucose of more than 200 mg/dL in a nonstressed, ambulatory subject supports the diagnosisof Diabetes Mellitus. Result Comment: Random Glucose Reference Range is dependent on time and content of last meal. Glucose of more than 200 mg/dL in a nonstressed, ambulatory subject supports the diagnosis of Diabetes Mellitus. ADA recommended reference rangePerformed By: #### GLULS #### Point of Care testing ,Hematocrit [Volume Fraction] of Blood by Automated countOrdered By: Amrik Rojas on 12-91-0035Sxnzwdsbcg (Bld) [Volume fraction]43.7 %Dihfqb63.8-50.0 [place] HospitalComment on above:Performed By: #### GLULS #### Point of Care testing ,Hemoglobin [Mass/volume] in BloodOrdered By: Amrik Rojas on 08-14-2024 Hemoglobin (Bld) [Mass/Vol]14.6 g/cIMcaxhr51.0-17.0T[facility]edo HospitalComment on above:Performed By: #### GLULS #### Point of Care testing ,Leukocytes [#/volume] corrected for nucleated erythrocytes in Blood by Automated counOrdered By: Amrik Rojas on 71-57-0887ORG corrected for nucl RBC Auto (Bld) [#/Vol]9.1 10*3/uL4.1-10.5FUniversity Hospitals TriPoint Medical Center Leukocytes [#/volume] in Blood by Automated countOrdered By: Amrik Rojas on 79-02-4305KLU (Bld) [#/Vol]9.1 10*3/uLNormal4.1-10.5FUniversity Hospitals TriPoint Medical CenterComment on above:Performed By: #### GLULS #### Point of Care testing ,Lymphocytes [#/volume] in Blood by Automated countOrdered By: Amrik Rojas on 43-52-5104Pzdcozlmcqp (Bld) [#/Vol]2.9 10*3/uLNormal1.00-4.8 [facility] HospitalComment on above:Performed By: #### GLULS #### Point of Care testing ,Lymphocytes/100 leukocytes in Blood by Automated countOrdered By: Amrik Rojas on 88-81-7538Thbcggczwdj/100 WBC (Bld)31.6 %Normal.T[place]edo HospitalComment on above:Performed By: #### GLULS #### Point of Care testing ,MCH [Entitic mass] by Automated countOrdered By: Amrik Rojas on 24-37-2974ESC (RBC) [Entitic mass]30.5 unIzkilp86.5-35.2FUniversity Hospitals TriPoint Medical CenterComment on above:Performed By: #### GLULS #### Point of Care testing ,MCHC Auto (RBC) [Mass/Vol]Ordered By: Amrik Rojas on 19-02-9194JPPL (RBC) [Mass/Vol]33.4 g/dL32.5-35.6FUniversity Hospitals TriPoint Medical CenterMCV [Entitic volume] by Automated countOrdered By: Amrik Rojas on 02-40-0781FPT (RBC) [Entitic vol]91.3 mXShfjhh15.5-101Firelands Regional Medical CenterComment on above:Performed By: #### GLULS #### Point of Care testing ,Neutrophils [#/volume] in Blood by Automated countOrdered By: Amrik Rojas on 41-82-6917Jpgvneciyba (Bld) [#/Vol]5.0 10*3/uLNormal1.8-7.7 [facility] HospitalComment on above:Performed By: #### GLULS #### Point of Care testing ,No Panel InformationOrdered By: Amrik Rojas on 44-28-5857Wddqrbqjk GFR (CKD-EPI)50.938 mL/MinToledo HospitalPharmacy Creatinine Clearance (Chem59.63Toledo HospitalNucleated erythrocytes [Presence] in Blood by Automated countOrdered By: Amrik Rojas on 41-94-9549Lmbvnirrn RBC Auto Ql (Bld)0.1 /100{WBC}0-0.5FUniversity Hospitals TriPoint Medical CenterPlatelet mean volume [Entitic volume] in Blood by Automated count Ordered By: Amrik Rojas on 47-23-4122Csjrqoot mean volume (Bld) [Entitic vol]8.1 fLNormal6.6-10.1FUniversity Hospitals TriPoint Medical CenterComment on above:Performed By: #### GLULS #### Point of Care testing ,Platelets [#/volume] in Blood by Automated countOrdered By: Amrik Rojas on 06-85-3547Zgykmaura (Bld) [#/Vol]292 10*3/cNDnxusb754-375WbjcoyysfToledo HospitalComment on above:Performed By: #### GLULS #### Point of Care testing ,Potassium [Moles/volume] in Serum or PlasmaOrdered By: Amrik Rojas on 28-38-8432Nidosaiol [Moles/Vol]3.9 mmol/LNormal3.5-5.1FUniversity Hospitals TriPoint Medical CenterComment on above:Performed By: #### GLULS #### Point of Care testing ,Serum or plasma anion gap determinationOrdered By: Amrik Rojas on 74-30-3558Hjvrh gap [Moles/Vol]12.9 mmol/LNormal6.0-15.0T[place]edo HospitalComment on above:Performed By: #### GLULS #### Point of Care testing ,Sodium [Moles/volume] in Serum or PlasmaOrdered By: Amrik Rojas on 94-94-0066Gyjprp [Moles/Vol]139 mmol/IVwtbfn712-998RgdbphmvsToledo HospitalComment on above:Performed By: #### GLULS #### Point of Care testing ,Urea nitrogen [Mass/volume] in Serum or PlasmaOrdered By: Amrik Rojas on 20-55-2847Swlg nitrogen [Mass/Vol]24 mg/dLNormal7-25T[place] HospitalComment on above:Performed By: #### GLULS #### Point of Care testing ,Activated partial thromboplastin time (aPTT) in platelet poor plasma by coagulation aOrdered By: Taqueria Cadena on 90-48-1594qBUY Coag (PPP) [Time]36.1 s 25.1-36.5FUniversity Hospitals TriPoint Medical CenterComment on above:A hematocrit value greater than 55% may lead to inaccurate results in coagulation testing. Patients having hematocrit values >55% require a special collection tube for coagulation studies. Please contact the laboratory at [phone] for redraw instructions. Basic Metabolic Panelon 44-75-0089Cmsro gap [Moles/Vol]12.1 mmol/LNormal6.0-15.0 The [facility] Physician GroupComment on above:Performed By: #### SCAN CBC, CK, CMP, PT, PTT, HS TROP #### [facility] [address] [place] [address] USACalcium [Mass/Vol]9.1 mg/dLNormal8.6-10.3The [facility] Physician GroupComment on above:Performed By: #### SCAN CBC, CK, CMP, PT, PTT, HS TROP #### [facility] [address] [place] [address] USAChloride [Moles/Vol]108 mmol/MJklo09-235Vtk [facility] Physician GroupComment on above:Performed By: #### SCAN CBC, CK, CMP, PT, PTT, HS TROP #### [place] [address] USACO2 [Moles/Vol]23.1 mmol/NJbidkx57.0-31.0The [facility] Physician GroupComment on above:Performed By: #### SCAN CBC, CK, CMP, PT, PTT, HS TROP #### [facility] [address] [place] [address] USACreatinine [Mass/Vol]1.64 mg/dLHigh0.70-1.30The [facility] Physician GroupComment on above:Performed By: #### SCAN CBC, CK, CMP, PT, PTT, HS TROP #### [facility] [address] [place] [address] USACreatinine Clr Calc Nddzxqic01.57NormalThe [facility] Health Physician GroupComment on above:Result Comment: PERFORMED BY: [place] [address] PATHOLOGIST MEDICAL LABORATORY SPECIALIST RADHA CARR M.D.Performed By: #### SCAN CBC, CK, CMP, PT, PTT, HS TROP #### [place] [address] USAGFR/1.73 sq M.predicted MDRD (S/P/Bld) [Vol rate/Area] 46.132 mL/min/{1.73_m2}NormalThe [facility] Physician [facility] WesleyComment on above: Performed By: #### SCAN CBC, CK, CMP, PT, PTT, HS TROP #### [facility] [address] [place] [address] USAGlucose [Mass/Vol]103 mg/aRIqyb96-069Plb [facility] Physician GroupComment on above:Result Comment: Random Glucose Reference Range is dependent on time and content of last meal. Glucose of more than 200 mg/dL in a nonstressed, ambulatory subject supports the diagnosis of Diabetes Mellitus. ADA recommended reference rangePerformed By: #### SCAN CBC, CK, CMP, PT, PTT, HS TROP #### [place] [address] USAPotassium [Moles/Vol]4.2 mmol/LNormal3.5-5.1The [facility] Physician GroupComment on above:Performed By: #### SCAN CBC, CK, CMP, PT, PTT, HS TROP #### [place] [address] USASodium [Moles/Vol]139 mmol/OMheavc638-023Rmw [facility] Physician GroupComment on above:Performed By: #### SCAN CBC, CK, CMP, PT, PTT, HS TROP #### [place] [address] USAUrea nitrogen [Mass/Vol]25 mg/dLNormal7-25The [facility] Physician GroupComment on above:Performed By: #### SCAN CBC, CK, CMP, PT, PTT, HS TROP #### [place] [address] USACoagulation Profileon 68-66-8490mUCT Coag (Bld) [Time]36.1 vGykwdp36.1-36.5The [facility] Physician GroupComment on above:Result Comment: A hematocrit value greater than 55% may lead to inaccurate results in coagulation testing. Patients having hematocrit values >55% require a special collection tube for coagulation studies. Please contact the laboratory at [phone] for redraw instructions. PERFORMED BY: [place] [address] PATHOLOGIST MEDICAL LABORATORY SPECIALIST RADHA CARR M.D.Performed By: #### SCAN CBC, CK, CMP, PT, PTT, HS TROP #### [place] [address] USAComplete Blood Count Auto Diffon 82-21-4070Qerxnaeue (Bld) [#/Vol]0.0 10*3/uLNormal0.0-0.2The [facility] Physician [facility] WesleyComment on above: Result Comment: PERFORMED BY: [place] [address] PATHOLOGIST MEDICAL LABORATORY SPECIALIST RADHA CARR M.D.Performed By: #### BMP, CBC #### [facility] [address] [place] [id number] USABasophils/100 WBC (Bld)0.6 %Normal.The [facility] Physician GroupComment on above:Performed By: #### BMP, CBC #### [place] [address] USAEosinophils (Bld) [#/Vol]0.1 10*3/uLNormal0.0-0.45The [facility] Physician GroupComment on above:Performed By: #### BMP, CBC #### [place] [address] USAEosinophils/100 WBC (Bld)1.7 %Normal.The [facility] Physician GroupComment on above:Performed By: #### BMP, CBC #### [place] [address] USAErythrocyte distribution width (RBC) [Ratio]15.3 %High 12.0-14.8The [facility] Physician GroupComment on above:Performed By: #### BMP, CBC #### [place] [address] USAHematocrit (Bld) [Volume fraction]40.8 %Malxrs37.8-50.0The [facility] Physician GroupComment on above:Performed By: #### BMP, CBC #### [place] [address] USAHemoglobin (Bld) [Mass/Vol]13.7 g/tFOcekbv67.0-17.0The [facility] Physician GroupComment on above:Performed By: #### BMP, CBC #### [place] [id number] USALymphocytes (Bld) [#/Vol]2.8 10*3/uLNormal1.00-4.8The [facility] Physician GroupComment on above:Performed By: #### BMP, CBC #### [place] [id number] USALymphocytes/100 WBC (Bld)38.3 %Normal.The [facility] Physician GroupComment on above:Performed By: #### BMP, CBC #### [facility] [address] (RBC) [Entitic mass]31.1 cfNldccy60.5-35.2The [facility] Physician GroupComment on above:Performed By: #### BMP, CBC #### [facility] [address] [place] [address] USAMCV (RBC) [Entitic vol]92.6 xSQzyzud25.5-101The [facility] Physician GroupComment on above:Performed By: #### BMP, CBC #### [facility] [address] [place] [address] USAMean Corpuscular HGB Conc33.6 g/rUVadzbo66.5-35.6The [facility] Physician GroupComment on above:Performed By: #### BMP, CBC #### [place] [address] USAMonocytes (Bld) [#/Vol]1.3 10*3/uLHigh0.0-0.8The [facility] Physician GroupComment on above:Performed By: #### BMP, CBC #### [facility] [address] [place] [address] USAMonocytes/100 WBC (Bld)17.2 %Normal.The [facility] Physician GroupComment on above:Performed By: #### BMP, CBC #### [place] [address] USANeutrophils (Bld) [#/Vol]3.1 10*3/uLNormal1.8-7.7The [facility] Physician GroupComment on above:Performed By: #### BMP, CBC #### [place] [address] USANeutrophils/100 WBC (Bld)42.2 %Normal.The [facility] Physician GroupComment on above:Performed By: #### BMP, CBC #### [facility] [address] [place] [address] USANRBC%0.1 /100{WBC}Normal0-0.5The [facility] Group Comment on above:Performed By: #### BMP, CBC #### [place] [address] USAPlatelet mean volume (Bld) [Entitic vol]8.2 fLNormal 6.6-10.1The [facility] Physician GroupComment on above:Performed By: #### BMP, CBC #### [place] [address] USAPlatelets (Bld) [#/Vol]252 10*3/bOQugkch140-366Tpl [facility] Physician GroupComment on above:Performed By: #### BMP, CBC #### [place] [address] USARBC (Bld) [#/Vol]4.40 10*6/uLNormal3.90-5.60The [facility] Physician GroupComment on above:Performed By: #### BMP, CBC #### [place] [address] USAWBC (Bld) [#/Vol]7.4 10*3/uLNormal4.1-10.5The [facility] Physician GroupComment on above:Performed By: #### BMP, CBC #### [place] [address] USAGlucose Poct Glucometerson 62-99-3197Zaxpfow [Mass/Vol]127 mg/dLNoFormerly [facility] Physician [facility] WesleyComment on above:Result Comment: Random Glucose Reference Range is dependent on time and content of last meal. Glucose of more than 200 mg/dL in a nonstressed, ambulatory subject supports the diagnosis of Diabetes Mellitus. PERFORMED BY: [place] [address] PATHOLOGIST MEDICAL LABORATORY SPECIALIST RADHA CARR M.D.Performed By: #### GLULS #### Point of Care testing ,Bextgwq2Sym1: Cleaned MeterNoFormerly [facility] Physician [facility] WesleyComment on above: Result Comment: PERFORMED BY: [place] [address] PATHOLOGIST MEDICAL LABORATORY SPECIALIST RADHA CARR M.D.Performed By: #### GLULS #### Point of Care testing ,Glucose [Mass/Vol]159 mg/dLUF Health Shands Hospital Physician GroupComment on above: Result Comment: Random Glucose Reference Range is dependent on time and content of last meal. Glucose of more than 200 mg/dL in a nonstressed, ambulatory subject supports the diagnosis of Diabetes Mellitus.Performed By: #### GLULS #### Point of Care testing ,Paayzjc6Fey6: Cleaned MeterNoFormerly [facility] Physician GroupComment on above: Result Comment: PERFORMED BY: [place] [address] PATHOLOGIST MEDICAL LABORATORY SPECIALIST RADHA CARR M.D.Performed By: #### SCAN CBC, CK, CMP, PT, PTT, HS TROP #### [address] [address] USAGlucose [Mass/Vol]115 mg/dLNoFormerly [facility] Physician GroupComment on above:Result Comment: Random Glucose Reference Range is dependent on time and content of last meal. Glucose of more than 200 mg/dL in a nonstressed, ambulatory subject supports the diagnosis of Diabetes Mellitus.Performed By: #### SCAN CBC, CK, CMP, PT, PTT, HS TROP #### [address] [address] USAGlucose [Mass/Vol]102 mg/dLUF Health Shands Hospital Physician GroupComment on above:Result Comment: Random Glucose Reference Range is dependent on time and content of last meal. Glucose of more than 200 mg/dL in a nonstressed, ambulatory subject supports the diagnosis of Diabetes Mellitus. PERFORMED BY: [address] [address] PATHOLOGIST MEDICAL LABORATORY SPECIALIST RADHA CARR M.D.Performed By: #### SCAN CBC, CK, CMP, PT, PTT, HS TROP #### [address] [address] USAINR in Platelet poor plasma by Coagulation assayOrdered By: Taqueria Cadena on 35-00-2631EAG Coag (PPP) [Relative time]1.1 {INR}Normal [facility] HospitalComment on above:INR Therapeutic Range A) Pre- and Peroperative OAT started two weeks before surgery. NOT HIP SURGERY: 1.5 - 2.5 HIP SURGERY: 2 - 3B) Primary and secondary prevention of venous THROMBOSIS: 2 - 3C) Active venous thrombosis, pulmonary embolismand prevention of recurrent venous thrombosis: 2 - 3D) Prevention of arterial thromboembolismincluding patients with mechanical heart valves: 3 - 4.5Result Comment: INR Therapeutic Range A) Pre- and [...] patients with mechanical heart valves: 3 - 4.5Performed By: #### SCAN CBC, CK, CMP, PT, PTT, HS TROP #### [facility] [address] [place] [address] USANo Panel InformationOrdered By: Taqueria Cadena on 96-61-2637Mjuemvs Glucose CommentGlu2: cleaned meterToledo HospitalProthrombin time (PT)Ordered By: Taqueria Cdaena on 58-66-4911CS Coag (PPP) [Time]12.6 sNormal9.0-12.9T[facility] HospitalComment on above:A hematocrit value greater than 55% may lead to inaccurate results in coagulation testing. Patientshaving hematocrit values >55% require a special collection tube for coagulation studies. Please contact the laboratory at [phone] for redraw instructions.Result Comment: A hematocrit value greater than 55% may lead to inaccurate results in coagulation testing. Patients having hematocrit values >55% require a special collection tube for coagulation studies. Please contact the laboratory at [phone] for redraw instructions.Performed By: #### SCAN CBC, CK, CMP, PT, PTT, HS TROP #### [facility] [address] [place] [address] USAXR chest 1V portableon 79-50-1188DO chest 1V portable [facility] [address] [place] [address] [place] [id number] XRay Report Signed Patient: Rod Mathias MR#: [id number] : 1960 Acct:[id number] Age/Sex: 63 / M ADM Date: 08/09/24 Loc: Room: [address] [place] [address] Type: ADM IN Attending Dr: Taqueria Cadena MD Copies to: Taqueria Cadena MD Ordering Provider: Taqueria Cadena MD Date of Service: 08/13/24 XR/XR chest 1V portable: verify PICC line placement PORTABLE AP ERECT CHEST 1555 hours CLINICAL HISTORY: Right-sided PICC line placement COMPARISON: 07/14/2024 There is a new right-sided PICC line with tip at the cavoatrial junction. There is shallow inspiration. The heart is within normal limits. There is no vascular congestion. The lungs, as visualized, are clear. There is no effusion or pneumothorax. The osseous structures are intact. XR/XR chest 1V portable IMPRESSION: PICC LINE PLACEMENT, DESCRIBED. NO ACUTE FINDINGS Impression dictated by: Angelica Bar M.D.08/13/2024 6:02 PM Dictation Location: [place] [address] Transcribed By: [facility] 08/13/241801 Dictated By: Angelica Bar MD 08/13/241800 Signed By: 08/13/241801NoFormerly [facility] Physician [facility] WesleyBasi Metabolic Panelon 70-93-6422Ffdtf gap [Moles/Vol]12.5 mmol/LNormal6.0-15.0The [facility] Physician GroupComment on above:Performed By: #### SCAN CBC, CK, CMP, PT, PTT, HS TROP #### [facility] [address] [place] [address] USACalcium [Mass/Vol]9.1 mg/dLNormal8.6-10.3The Reading HospitalComment on above:Performed By: #### SCAN CBC, CK, CMP, PT, PTT, HS TROP #### [facility] [address] [place] [address] USAChloride [Moles/Vol]109 mmol/SQgdh38-030Zlk [facility] Physician GroupComment on above:Performed By: #### SCAN CBC, CK, CMP, PT, PTT, HS TROP #### [place] [address] USACO2 [Moles/Vol]22.2 mmol/GOhksrm82.0-31.0The [facility] Physician GroupComment on above:Performed By: #### SCAN CBC, CK, CMP, PT, PTT, HS TROP #### [facility] [address] [place] [address] USACreatinine [Mass/Vol]1.78 mg/dLHigh0.70-1.30The [facility] Physician GroupComment on above:Performed By: #### SCAN CBC, CK, CMP, PT, PTT, HS TROP #### [place] [address] USACreatinine Clr Calc Kcrzaxlv23.87NormalThe [facility] Physician [facility] WesleyComment on above:Result Comment: PERFORMED BY: [place] [address] PATHOLOGIST MEDICAL LABORATORY SPECIALIST RADHA CARR M.D.Performed By: #### SCAN CBC, CK, CMP, PT, PTT, HS TROP #### [place] [address] USAGFR/1.73 sq M.predicted MDRD (S/P/Bld) [Vol rate/Area] 41.813 mL/min/{1.73_m2}NormalThe [facility] Physician [facility] WesleyComment on above: Performed By: #### SCAN CBC, CK, CMP, PT, PTT, HS TROP #### [facility] [address] [place] [address] USAGlucose [Mass/Vol]125 mg/rHGiul37-856Mpv [facility] Physician [facility] WesleyComment on above:Result Comment: Random Glucose Reference Range is dependent on time and content of last meal. Glucose of more than 200 mg/dL in a nonstressed, ambulatory subject supports the diagnosis of Diabetes Mellitus. ADA recommended reference rangePerformed By: #### SCAN CBC, CK, CMP, PT, PTT, HS TROP #### [facility] [address] [place] [address] USAPotassium [Moles/Vol]4.7 mmol/LNormal3.5-5.1The [facility] Physician GroupComment on above:Performed By: #### SCAN CBC, CK, CMP, PT, PTT, HS TROP #### [facility] [address] [place] [address] USASodium [Moles/Vol]139 mmol/RAnxoyr794-392Hnl [facility] Physician GroupComment on above:Performed By: #### SCAN CBC, CK, CMP, PT, PTT, HS TROP #### [facility] [address] [place] [address] USAUrea nitrogen [Mass/Vol]26 mg/dLHigh7-25The [facility] Physician GroupComment on above:Performed By: #### SCAN CBC, CK, CMP, PT, PTT, HS TROP #### [place] [address] USAC reactive protein [Mass/volume] in Serum or PlasmaOrdered By: Taqueria Cadena on 35-28-3222ZSW [Mass/Vol]5.2 mg/dLHigh0.0-0.5FUniversity Hospitals TriPoint Medical CenterC-Reactive Proteinon 48-23-8738G-Reactive Protein5.2 mg/dLHigh0.0-0.5The [facility] Physician GroupComment on above:Result Comment: PERFORMED BY: [place] [address] PATHOLOGIST MEDICAL LABORATORY SPECIALIST RADHA CARR M.D.Performed By: #### GLULS #### Point of Care testing ,Complete Blood Count Auto Diffon 44-88-5022Glewnsxsl (Bld) [#/Vol]0.0 10*3/uL Normal0.0-0.2The [facility] Physician [facility] WesleyComment on above:Result Comment: PERFORMED BY: [place] [address] PATHOLOGIST MEDICAL LABORATORY SPECIALIST RADHA CARR M.D.Performed By: #### SCAN CBC, CK, CMP, PT, PTT, HS TROP #### [place] [address] USABasophils/100 WBC (Bld)0.4 %Normal.The [facility] Physician GroupComment on above:Performed By: #### SCAN CBC, CK, CMP, PT, PTT, HS TROP #### [place] [address] USAEosinophils (Bld) [#/Vol]0.1 10*3/uLNormal0.0-0.45The [facility] Physician GroupComment on above:Performed By: #### SCAN CBC, CK, CMP, PT, PTT, HS TROP #### [place] [address] USAEosinophils/100 WBC (Bld)1.2 %Normal.The [facility] Physician GroupComment on above:Performed By: #### SCAN CBC, CK, CMP, PT, PTT, HS TROP #### [place] [address] USAErythrocyte distribution width (RBC) [Ratio]15.5 %High 12.0-14.8The [facility] Physician GroupComment on above:Performed By: #### SCAN CBC, CK, CMP, PT, PTT, HS TROP #### [place] [address] USAHematocrit (Bld) [Volume fraction]40.4 %Ynixdh02.8-50.0The [facility] Physician GroupComment on above:Performed By: #### SCAN CBC, CK, CMP, PT, PTT, HS TROP #### [place] [address] USAHemoglobin (Bld) [Mass/Vol]13.3 g/iRYbwgyf57.0-17.0The [facility] Physician GroupComment on above:Performed By: #### SCAN CBC, CK, CMP, PT, PTT, HS TROP #### [place] [address] USALymphocytes (Bld) [#/Vol]2.0 10*3/uLNormal1.00-4.8The [facility] Physician GroupComment on above:Performed By: #### SCAN CBC, CK, CMP, PT, PTT, HS TROP #### [facility] [address] [place] [address] USALymphocytes/100 WBC (Bld)22.4 %Normal.The [facility] Physician GroupComment on above:Performed By: #### SCAN CBC, CK, CMP, PT, PTT, HS TROP #### [facility] [address] (RBC) [Entitic mass]30.7 zpIvklxf09.5-35.2The [facility] Physician GroupComment on above:Performed By: #### SCAN CBC, CK, CMP, PT, PTT, HS TROP #### [facility] [address] (RBC) [Entitic vol]93.4 uYQqeqyx87.5-101The [facility] Physician GroupComment on above:Performed By: #### SCAN CBC, CK, CMP, PT, PTT, HS TROP #### [facility] [address] [place] [address] USAMean Corpuscular HGB Conc32.9 g/bEBodgyc13.5-35.6The [facility] Physician GroupComment on above:Performed By: #### SCAN CBC, CK, CMP, PT, PTT, HS TROP #### [place] [address] USAMonocytes (Bld) [#/Vol]1.4 10*3/uLHigh0.0-0.8The [facility] Physician GroupComment on above:Performed By: #### SCAN CBC, CK, CMP, PT, PTT, HS TROP #### [place] [address] USAMonocytes/100 WBC (Bld)15.6 %Normal.The [facility] Physician GroupComment on above:Performed By: #### SCAN CBC, CK, CMP, PT, PTT, HS TROP #### [place] [address] USANeutrophils (Bld) [#/Vol]5.3 10*3/uLNormal1.8-7.7The [facility] Physician GroupComment on above:Performed By: #### SCAN CBC, CK, CMP, PT, PTT, HS TROP #### [place] [address] USANeutrophils/100 WBC (Bld)60.4 %Normal.The [facility] Physician GroupComment on above:Performed By: #### SCAN CBC, CK, CMP, PT, PTT, HS TROP #### [place] [address] USANRBC%0.0 /100{WBC}Normal0-0.5The [facility] Comment on above:Performed By: #### SCAN CBC, CK, CMP, PT, PTT, HS TROP #### [place] [address] USAPlatelet mean volume (Bld) [Entitic vol]8.3 fLNormal 6.6-10.1The [facility] Physician GroupComment on above:Performed By: #### SCAN CBC, CK, CMP, PT, PTT, HS TROP #### [place] [address] USAPlatelets (Bld) [#/Vol]233 10*3/dNPrzugp509-243Xek [facility] Physician GroupComment on above:Performed By: #### SCAN CBC, CK, CMP, PT, PTT, HS TROP #### [place] [address] USARBC (Bld) [#/Vol]4.32 10*6/uLNormal3.90-5.60The [facility] Physician GroupComment on above:Performed By: #### SCAN CBC, CK, CMP, PT, PTT, HS TROP #### [place] [address] USAWBC (Bld) [#/Vol]8.8 10*3/uLNormal4.1-10.5The [facility] Physician GroupComment on above:Performed By: #### SCAN CBC, CK, CMP, PT, PTT, HS TROP #### [place] [address] USAGlucose Poct Glucometerson 46-03-8662Rrpecni [Mass/Vol]130 mg/dLNoFormerly [facility] Physician GroupComment on above:Result Comment: Random Glucose Reference Range is dependent on time and content of last meal. Glucose of more than 200 mg/dL in a nonstressed, ambulatory subject supports the diagnosis of Diabetes Mellitus. PERFORMED BY: [place] [address] PATHOLOGIST MEDICAL LABORATORY SPECIALIST RADHA CARR M.D.Performed By: #### GLULS #### Point of Care testing ,Glucose [Mass/Vol]130 mg/dLUF Health Shands Hospital Physician GroupComment on above: Result Comment: Random Glucose Reference Range is dependent on time and content of last meal. Glucose of more than 200 mg/dL in a nonstressed, ambulatory subject supports the diagnosis of Diabetes Mellitus. PERFORMED BY: [place] [address] PATHOLOGIST MEDICAL LABORATORY SPECIALIST RADHA CARR M.D.Performed By: #### GLULS #### Point of Care testing ,Glucose [Mass/Vol]117 mg/dLNoFormerly [facility] Physician GroupComment on above: Result Comment: Random Glucose Reference Range is dependent on time and content of last meal. Glucose of more than 200 mg/dL in a nonstressed, ambulatory subject supports the diagnosis of Diabetes Mellitus. PERFORMED BY: [place] [address] PATHOLOGIST MEDICAL LABORATORY SPECIALIST RADHA CARR M.D.Performed By: #### GLULS #### Point of Care testing ,Zywoflc4Ynh8: Cleaned MeterNoFormerly [facility] Physician GroupComment on above: Result Comment: PERFORMED BY: [place] [address] PATHOLOGIST MEDICAL LABORATORY SPECIALIST RADHA CARR M.D.Performed By: #### SCAN CBC, CK, CMP, PT, PTT, HS TROP #### [place] [address] USAGlucose [Mass/Vol]116 mg/dLNoFormerly [facility] Physician GroupComment on above:Result Comment: Random Glucose Reference Range is dependent on time and content of last meal. Glucose of more than 200 mg/dL in a nonstressed, ambulatory subject supports the diagnosis of Diabetes Mellitus.Performed By: #### SCAN CBC, CK, CMP, PT, PTT, HS TROP #### [place] [address] USABasic Metabolic Panelon 90-40-5524Rdlqq gap [Moles/Vol] 12.7 mmol/LNormal6.0-15.0The [facility] Physician GroupComment on above:Performed By: #### GLULS #### Point of Care testing ,Calcium [Mass/Vol]8.6 mg/dLNormal8.6-10.3The [facility] Physician GroupComment on above:Performed By: #### GLULS #### Point of Care testing ,Chloride [Moles/Vol]109 mmol/ICmjk59-128Hxy [facility] Physician GroupComment on above:Performed By: #### GLULS #### Point of Care testing ,CO2 [Moles/Vol]23.5 mmol/YTgthmr48.0-31.0The [facility] Physician GroupComment on above:Performed By: #### GLULS #### Point of Care testing ,Creatinine [Mass/Vol]1.79 mg/dLHigh0.70-1.30The [facility]ician [facility] Comment on above:Performed By: #### GLULS #### Point of Care testing ,Creatinine Clr Calc Pdetnila63.58NormalThe [facility] Physician [facility] WesleyComment on above:Result Comment: PERFORMED BY: [place] [address] PATHOLOGIST MEDICAL LABORATORY SPECIALIST RADHA CARR M.D.Performed By: #### GLULS #### Point of Care testing ,GFR/1.73 sq M.predicted MDRD (S/P/Bld) [Vol rate/Area]41.532 mL/min/{1.73_m2} NormalTri-County Hospital - [facility]iston Physician GroupComment on above:Performed By: #### GLULS #### Point of Care testing ,Glucose [Mass/Vol]117 mg/kPNvfd05-483Eez [facility] Physician GroupComment on above:Result Comment: Random Glucose Reference Range is dependent on time and content of last meal. Glucose of more than 200 mg/dL in a nonstressed, ambulatory subject supports the diagnosis of Diabetes Mellitus. ADA recommended reference rangePerformed By: #### GLULS #### Point of Care testing ,Potassium [Moles/Vol]4.2 mmol/LNormal3.5-5.1The [facility] Comment on above:Performed By: #### GLULS #### Point of Care testing ,Sodium [Moles/Vol]141 mmol/BYugueb519-331Tht [facility] Physician GroupComment on above:Performed By: #### GLULS #### Point of Care testing ,Urea nitrogen [Mass/Vol]28 mg/dLHigh7-25The [facility] Physician GroupComment on above:Performed By: #### GLULS #### Point of Care testing ,Complete Blood Count Auto Diffon [id number] (Bld) [#/Vol]0.0 10*3/uL Normal0.0-0.2The [facility] Physician GroupComment on above:Result Comment: PERFORMED BY: [address] [place] [address] PATHOLOGIST MEDICAL LABORATORY SPECIALIST RADHA CARR M.D.Performed By: #### GLULS #### Point of Care testing ,Basophils/100 WBC (Bld)0.4 %Normal.The [facility] Physician GroupComment on above:Performed By: #### GLULS #### Point of Care testing ,Eosinophils (Bld) [#/Vol]0.1 10*3/uLNormal0.0-0.45The [facility] Comment on above:Performed By: #### GLULS #### Point of Care testing ,Eosinophils/100 WBC (Bld)1.3 %Normal.The [facility] Physician GroupComment on above:Performed By: #### GLULS #### Point of Care testing ,Erythrocyte distribution width (RBC) [Ratio]15.7 %High12.0-14.8The [facility] Physician GroupComment on above:Performed By: #### GLULS #### Point of Care testing ,Hematocrit (Bld) [Volume fraction]40.2 %Yzlzpv38.8-50.0The [facility] Physician GroupComment on above:Performed By: #### GLULS #### Point of Care testing ,Hemoglobin (Bld) [Mass/Vol]13.2 g/aFMaveie09.0-17.0The [facility] Physician GroupComment on above:Performed By: #### GLULS #### Point of Care testing ,Lymphocytes (Bld) [#/Vol]1.6 10*3/uLNormal1.00-4.8The [facility] Comment on above:Performed By: #### GLULS #### Point of Care testing ,Lymphocytes/100 WBC (Bld)14.3 %Normal.The [facility] Physician GroupComment on above:Performed By: #### GLULS #### Point of Care testing ,MCH (RBC) [Entitic mass]30.7 zbNxbzlw07.5-35.2The [facility] Comment on above:Performed By: #### GLULS #### Point of Care testing ,MCV (RBC) [Entitic vol]93.5 xUActcxq33.5-101The [facility] Comment on above:Performed By: #### GLULS #### Point of Care testing ,Mean Corpuscular HGB Conc32.8 g/rEHeicft18.5-35.6The [facility] Comment on above:Performed By: #### GLULS #### Point of Care testing ,Monocytes (Bld) [#/Vol]1.4 10*3/uLHigh0.0-0.8The [facility] Comment on above:Performed By: #### GLULS #### Point of Care testing ,Monocytes/100 WBC (Bld)12.8 %Normal.The [facility] Physician GroupComment on above:Performed By: #### GLULS #### Point of Care testing ,Neutrophils (Bld) [#/Vol]7.7 10*3/uLNormal1.8-7.7The [facility] Comment on above:Performed By: #### GLULS #### Point of Care testing ,Neutrophils/100 WBC (Bld)71.2 %Normal.The [facility] Physician GroupComment on above:Performed By: #### GLULS #### Point of Care testing ,NRBC%0.0 /100{WBC}Normal0-0.5The [facility] Physician GroupComment on above: Performed By: #### GLULS #### Point of Care testing ,Platelet mean volume (Bld) [Entitic vol]8.5 fLNormal6.6-10.1The [facility] Physician GroupComment on above:Performed By: #### GLULS #### Point of Care testing ,Platelets (Bld) [#/Vol]210 10*3/jMAdcmyx050-768Hgz [facility] Comment on above:Performed By: #### GLULS #### Point of Care testing ,RBC (Bld) [#/Vol]4.30 10*6/uLNormal3.90-5.60The [facility] Comment on above:Performed By: #### GLULS #### Point of Care testing ,WBC (Bld) [#/Vol]10.8 10*3/uLHigh4.1-10.5The [facility] Physician GroupComment on above:Performed By: #### GLULS #### Point of Care testing ,Glucose Poct Glucometerson 73-93-7582Vpmvavn8Itb1: Cleaned MeterNoFormerly [facility] Physician GroupComment on above:Result Comment: PERFORMED BY: [place] [address] PATHOLOGIST MEDICAL LABORATORY SPECIALIST RADHA CARR M.D.Performed By: #### BMP, CBC #### [place] [address] USAGlucose [Mass/Vol]133 mg/dLUF Health Shands Hospital Physician GroupComment on above:Result Comment: Random Glucose Reference Range is dependent on time and content of last meal. Glucose of more than 200 mg/dL in a nonstressed, ambulatory subject supports the diagnosis of Diabetes Mellitus.Performed By: #### BMP, CBC #### [place] [address] USAGlucose [Mass/Vol]110 mg/dLNoFormerly [facility] Physician GroupComment on above:Result Comment: Random Glucose Reference Range is dependent on time and content of last meal. Glucose of more than 200 mg/dL in a nonstressed, ambulatory subject supports the diagnosis of Diabetes Mellitus. PERFORMED BY: [place] [address] PATHOLOGIST MEDICAL LABORATORY SPECIALIST RADHA CARR M.D.Performed By: #### SCAN CBC, CK, CMP, PT, PTT, HS TROP #### [place] [address] USAGlucose [Mass/Vol]115 mg/dLNoFormerly [facility] Physician GroupComment on above:Result Comment: Random Glucose Reference Range is dependent on time and content of last meal. Glucose of more than 200 mg/dL in a nonstressed, ambulatory subject supports the diagnosis of Diabetes Mellitus. PERFORMED BY: [place] [address] PATHOLOGIST MEDICAL LABORATORY SPECIALIST RADHA CARR M.D.Performed By: #### SCAN CBC, CK, CMP, PT, PTT, HS TROP #### [place] [address] USAGlucose [Mass/Vol]120 mg/dLNoFormerly [facility] Physician GroupComment on above:Result Comment: Random Glucose Reference Range is dependent on time and content of last meal. Glucose of more than 200 mg/dL in a nonstressed, ambulatory subject supports the diagnosis of Diabetes Mellitus. PERFORMED BY: [place] [address] PATHOLOGIST MEDICAL LABORATORY SPECIALIST RADHA CARR M.D.Performed By: #### SCAN CBC, CK, CMP, PT, PTT, HS TROP #### [place] [address] USABasic Metabolic Panelon 77-73-5457Fdvyz gap [Moles/Vol] 13.5 mmol/LNormal6.0-15.0The [facility] Physician GroupComment on above:Performed By: #### BMP, CBC #### [place] [address] USACalcium [Mass/Vol]9.1 mg/dLNormal8.6-10.3The [facility] Physician GroupComment on above:Performed By: #### BMP, CBC #### [place] [address] USAChloride [Moles/Vol]108 mmol/KInpx54-104Vqt [facility] Physician GroupComment on above:Performed By: #### BMP, CBC #### [place] [address] USACO2 [Moles/Vol]21.1 mmol/CDksghv85.0-31.0The [facility] Physician GroupComment on above:Performed By: #### BMP, CBC #### [place] [address] USACreatinine [Mass/Vol]1.73 mg/dLHigh0.70-1.30The [facility] Physician GroupComment on above:Performed By: #### BMP, CBC #### [place] [address] USACreatinine Clr Calc Xxziybsy11.34NormalThe [facility] Physician GroupComment on above:Result Comment: PERFORMED BY: [place] [address] PATHOLOGIST MEDICAL LABORATORY SPECIALIST RADHA CARR M.D.Performed By: #### BMP, CBC #### [place] [address] USAGFR/1.73 sq M.predicted MDRD (S/P/Bld) [Vol rate/Area] 43.266 mL/min/{1.73_m2}NormalThe [facility] Physician GroupComment on above: Performed By: #### BMP, CBC #### [place] [address] USAGlucose [Mass/Vol]154 mg/lZYbwc27-238Coe [facility] Physician GroupComment on above:Result Comment: Random Glucose Reference Range is dependent on time and content of last meal. Glucose of more than 200 mg/dL in a nonstressed, ambulatory subject supports the diagnosis of Diabetes Mellitus. ADA recommended reference rangePerformed By: #### BMP, CBC #### [facility] [address] [place] [address] USAPotassium [Moles/Vol]4.6 mmol/LNormal3.5-5.1The [facility] Physician GroupComment on above:Performed By: #### BMP, CBC #### [facility] [address] [place] [address] USASodium [Moles/Vol]138 mmol/ZKytmlc300-872Tly [facility] Physician GroupComment on above:Performed By: #### BMP, CBC #### [facility] [address] [place] [address] USAUrea nitrogen [Mass/Vol]24 mg/dLNormal7-25The [facility] Physician GroupComment on above:Performed By: #### BMP, CBC #### [facility] [address] [place] [address] USACT abdomen pelvis wo conon [id number] abdomen pelvis wo [facility] [place] [address] [place] [address] CT Scan Report Signed Patient: Rod Mathias MR#: [id number] : 1960 Acct:[id number] Age/Sex: 63 / M ADM Date: 08/09/24 Loc: Room: [address] [place] [address] Type: ADM IN Attending Dr: Amrik Rojas DO Copies to: Amrik Rojas DO Ordering Provider: Amrik Rojas DO Date of Service: 08/09/24 CT/CT abdomen pelvis wo con: left flank pain CT Abdomen and Pelvis withoutcontrast TECHNIQUE: Axial imaging with 2-D reconstruction. . The CT exam was performed using one or more the following dose reduction techniques: Automated exposure control, adjustment of the MA and/or Kv according to patient size, or use of the iterative reconstruction technique. COMPARISON: 07/09/24 History: LEFT flank pain. Constipation. Dizziness. Shortness of breath. LIMITATIONS: None LOWER THORAX coronary artery calcification. Mild atelectasis. LIVER: Hepatic steatosis. GALLBLADDER: No gallbladder abnormality identified. BILE DUCTS: No dilatation SPLEEN: Unremarkable PANCREAS: Unremarkable ADRENAL GLANDS: Unremarkable KIDNEYS:The punctate bilateral nonobstructing renal calculi. No hydronephrosis. Similar RIGHT renal cyst. Stable partially calcified nodule LEFT renal lesion. AORTA: No abdominal aortic aneurysm identified. Atherosclerosis. RETROPERITONEUM: No significant retroperitoneal abnormalities identified. MESENTERY:Unremarkable SMALL BOWEL: The small bowel loops are nondistended. APPENDIX: The appendix is not seen. No pericecal inflammatory changes identified. COLON: Moderate constipation URINARY BLADDER: Urinary bladder wall thickening. May represent outflow obstruction. No bladder stone. May also consider cystitis. REPRODUCTIVE SYSTEM: Reproductive structures are unremarkable. PNEUMOPERITONEUM: None PERITONEAL FLUID:None BONY STRUCTURES: Unremarkable ABDOMINAL WALL: Unremarkable CT/CT abdomen pelvis wo con IMPRESSION: Nonobstructing nephrolithiasis. No obstructive uropathy. Moderate constipation. Urinary bladder wall thickening. Consider outflow obstruction. May represent cystitis. Impression dictated by: Steve Thurston M.D.08/10/2024 6:25 AM Dictation Location: [place] [address] Transcribed By: [facility] 08/10/[address] Dictated By: Steve Thurston DO 08/10/2420 Signed By: 08/10/24 0625NoFormerly [facility] Physician GroupComplete Blood Count Auto Diffon [id number] (Bld) [#/Vol]0.0 10*3/uLNormal0.0-0.2The [facility] Physician GroupComment on above:Result Comment: PERFORMED BY: [place] [address] PATHOLOGIST MEDICAL LABORATORY SPECIALIST RADHA CARR M.D.Performed By: #### BMP, CBC #### [facility] [address] [place] [address] USABasophils/100 WBC (Bld)0.2 %Normal.The [facility] Physician GroupComment on above:Performed By: #### BMP, CBC #### [facility] [address] [place] [address] USAEosinophils (Bld) [#/Vol]0.0 10*3/uLNormal0.0-0.45The [facility] Physician GroupComment on above:Performed By: #### BMP, CBC #### [place] [id number] USAEosinophils/100 WBC (Bld)0.0 %Normal.The [facility] Physician GroupComment on above:Performed By: #### BMP, CBC #### [place] [address] USAErythrocyte distribution width (RBC) [Ratio]15.5 %High 12.0-14.8The [facility] Physician GroupComment on above:Performed By: #### BMP, CBC #### [place] [address] USAHematocrit (Bld) [Volume fraction]39.6 %Tbcepj73.8-50.0The [facility] Physician GroupComment on above:Performed By: #### BMP, CBC #### [place] [address] USAHemoglobin (Bld) [Mass/Vol]13.1 g/fYNktzfg21.0-17.0The [facility] Physician GroupComment on above:Performed By: #### BMP, CBC #### [place] [address] USALymphocytes (Bld) [#/Vol]0.8 10*3/uLLow1.00-4.8The [facility] Physician GroupComment on above:Performed By: #### BMP, CBC #### [place] [address] USALymphocytes/100 WBC (Bld)5.0 %Normal.The [facility] Physician GroupComment on above:Performed By: #### BMP, CBC #### [place] [address] USAMCH (RBC) [Entitic mass]30.2 cgExghni44.5-35.2The [facility] Physician GroupComment on above:Performed By: #### BMP, CBC #### [place] [address] USAMCV (RBC) [Entitic vol]91.8 lHTtdfvx70.5-101The [facility] Physician GroupComment on above:Performed By: #### BMP, CBC #### [facility] [address] [place] [address] USAMean Corpuscular HGB Conc32.9 g/nPTlfdue38.5-35.6The [facility] Physician GroupComment on above:Performed By: #### BMP, CBC #### [facility] [address] [place] [address] USAMonocytes (Bld) [#/Vol]1.7 10*3/uLHigh0.0-0.8The [facility] Physician GroupComment on above:Performed By: #### BMP, CBC #### [place] [address] USAMonocytes/100 WBC (Bld)10.9 %Normal.The [facility] Physician GroupComment on above:Result Comment: Absolute monocytosis is commonly reactive in nature. However, if unexplained, recommend follow-up CBC in 3 months to evaluate for persistence.Performed By: #### BMP, CBC #### [facility] [address] [place] [address] USANeutrophils (Bld) [#/Vol]12.8 10*3/uLHigh1.8-7.7The [facility] Physician GroupComment on above:Performed By: #### BMP, CBC #### [place] [address] USANeutrophils/100 WBC (Bld)83.9 %Normal.The [facility] Physician GroupComment on above:Performed By: #### BMP, CBC #### [facility] [address] [place] [address] USANRBC%0.0 /100{WBC}Normal0-0.5The [facility] Comment on above:Performed By: #### BMP, CBC #### [place] [address] USAPlatelet mean volume (Bld) [Entitic vol]8.5 fLNormal 6.6-10.1The [facility] Physician GroupComment on above:Performed By: #### BMP, CBC #### [address] [address] USAPlatelets (Bld) [#/Vol]194 10*3/fEOqnbea257-511Mph [facility] Physician GroupComment on above:Performed By: #### BMP, CBC #### [place] [address] USARBC (Bld) [#/Vol]4.32 10*6/uLNormal3.90-5.60The [facility] Physician GroupComment on above:Performed By: #### BMP, CBC #### [place] [address] USAWBC (Bld) [#/Vol]15.3 10*3/uLHigh4.1-10.5The [facility] Physician GroupComment on above:Performed By: #### BMP, CBC #### [place] [address] USAGlucose Poct Glucometerson 16-93-3679Weumqcj [Mass/Vol]181 mg/dLNoFormerly [facility] Physician GroupComment on above:Result Comment: Random Glucose Reference Range is dependent on time and content of last meal. Glucose of more than 200 mg/dL in a nonstressed, ambulatory subject supports the diagnosis of Diabetes Mellitus. PERFORMED BY: [place] [address] PATHOLOGIST MEDICAL LABORATORY SPECIALIST RADHA CARR M.D.Performed By: #### GLULS #### Point of Care testing ,Glucose [Mass/Vol]126 mg/dLNoFormerly [facility] Physician [facility] on above: Result Comment: Random Glucose Reference Range is dependent on time and content of last meal. Glucose of more than 200 mg/dL in a nonstressed, ambulatory subject supports the diagnosis of Diabetes Mellitus. PERFORMED BY: [place] [address] PATHOLOGIST MEDICAL LABORATORY SPECIALIST RADHA CARR M.D.Performed By: #### SCAN CBC, CK, CMP, PT, PTT, HS TROP #### [place] [address] USAGlucose [Mass/Vol]138 mg/dLNoFormerly [facility] Physician GroupComment on above:Result Comment: Random Glucose Reference Range is dependent on time and content of last meal. Glucose of more than 200 mg/dL in a nonstressed, ambulatory subject supports the diagnosis of Diabetes Mellitus. PERFORMED BY: [place] [address] PATHOLOGIST MEDICAL LABORATORY SPECIALIST RADHA CARR M.D.Performed By: #### SCAN CBC, CK, CMP, PT, PTT, HS TROP #### [facility] [address] [place] [address] USAGlucose [Mass/Vol]148 mg/dLNoFormerly [facility] Physician GroupComment on above:Result Comment: Random Glucose Reference Range is dependent on time and content of last meal. Glucose of more than 200 mg/dL in a nonstressed, ambulatory subject supports the diagnosis of Diabetes Mellitus. PERFORMED BY: [place] [address] PATHOLOGIST MEDICAL LABORATORY SPECIALIST RADHA CARR M.D.Performed By: #### GLULS #### Point of Care testing ,Result Comment: PERFORMED BY: [place] [address] PATHOLOGIST MEDICAL LABORATORY SPECIALIST RADHA CARR M.D.Performed By: #### BMP, CBC #### [facility] [address] [place] [address] USAGlucose mean value [Mass/volume] in Blood Estimated from glycated hemoglobinOrdered By: Amrik Rojas on 17-95-4293Uvofrxv glucose Estimated from glycated hemoglobin (Bld) [Mass/Vol]148 mg/dLToledo HospitalHemoglobin A1c percentageOrdered By: Amrik Rojas on 88-74-9008JaR3d (Bld) [Mass fraction]6.8 %High4.3-5.6FUniversity Hospitals TriPoint Medical CenterComment on above:Increased risk for diabetes: 5.7 - 6.4diabetes: >6.4glycemic control for adults with diabetes: <7.0Result Comment: Increased risk for diabetes: 5.7 - 6.4 diabetes: >6.4 glycemic control for adults with diabetes: <7.0Performed By: #### BMP, CBC #### [facility] [address] [place] [address] USAAlanine aminotransferase [Enzymatic activity/volume] in Serum or PlasmaOrdered By: Shaniqua Duarte on 75-61-3813JUI [Catalytic activity/Vol]16 U/LNormal7-52Toledo HospitalComment on above: Performed By: #### BMP, CBC #### [facility] [address] [place] [address] USAAlbumin [Mass/volume] in Serum or Plasma by Bromocresol green (BCG) dye binding methoOrdered By: Shaniqua Duarte on 08-70-3929Oxaejlv BCG dye [Mass/Vol]4.3 g/dL3.5-5.7FUniversity Hospitals TriPoint Medical CenterAlkaline phosphatase [Enzymatic activity/volume] in Serum or PlasmaOrdered By: Shaniqua Duarte on 03-20-2432WVV [Catalytic activity/Vol]134 U/RGdzm10-025HtevqedheToledo HospitalComment on above:Performed By: #### BMP, CBC #### [facility] [address] [place] [address] USAAspartate aminotransferase [Enzymatic activity/volume] in Serum or PlasmaOrdered By: Shaniqua Duarte on 82-21-2905PQC [Catalytic activity/Vol]15 U/GBhuykw15-26PzwlabksfToledo HospitalComment on above: Performed By: #### BMP, CBC #### [place] [address] USAAutomated basophil %Ordered By: Shaniqua Duarte on 32-58-3092Lovlwpncs/100 WBC (Bld)0.2 %Normal.[facility] Comment on above:Performed By: #### BMP, CBC #### [place] [address] USAAutomated basophil countOrdered By: Shaniqua Duarte on 00-31-0191Kdihnkftb (Bld) [#/Vol]0.0 10*3/uLNormal0.0-0.2FUniversity Hospitals TriPoint Medical CenterComment on above:Result Comment: PERFORMED BY: [facility] [place] [address] PATHOLOGIST MEDICAL LABORATORY SPECIALIST RADHA CARR M.D.Performed By: #### BMP, CBC #### [place] [address] USAAutomated blood monocyte countOrdered By: Shaniqua Duarte on 82-76-2281Klhziecjn (Bld) [#/Vol]1.3 10*3/uLHigh0.0-0.8Toledo HospitalComment on above:Performed By: #### BMP, CBC #### [place] [address] USAAutomated eosinophil %Ordered By: Shaniqua Duarte on 50-11-0601Qtxudxdamgm/100 WBC (Bld)0.3 %Normal.[facility] Comment on above:Performed By: #### BMP, CBC #### [place] [address] USAAutomated eosinophil countOrdered By: Shaniqua Duarte on 93-23-2037Fyytmircyrv (Bld) [#/Vol]0.0 10*3/uLNormal0.0-0.45Toledo HospitalComment on above:Performed By: #### BMP, CBC #### [place] [address] USAAutomated monocyte %Ordered By: Shanqiua Duarte on 56-80-2413Hpfelhurl/100 WBC (Bld)9.6 %Normal.[facility] Comment on above:Performed By: #### BMP, CBC #### [place] [address] USAAutomated neutrophil %Ordered By: Shaniqua Duarte on 91-48-7674Lbjgrlycywz/100 WBC (Bld)80.3 %Normal.Toledo HospitalComment on above:Performed By: #### BMP, CBC #### [place] [address] USABacteria [Presence] in Urine by AutomatedOrdered By: Shaniqua Duarte on 27-28-6959Okicuafx Auto Ql (U)1+ [HPF]HighNone SeenToledo HospitalBilirubin Test strip Ql (U)Ordered By: Shaniqua Duarte on 29-35-7298Depmikklo Ql (U)NegativeNegativeToledo Hospital Bilirubin.total [Mass/volume] in Serum or PlasmaOrdered By: Shaniqua Duarte on 29-82-9369Tdqhedyih [Mass/Vol]0.6 mg/dLNormal0.3-1.0Toledo HospitalComment on above:Performed By: #### BMP, CBC #### [place] [address] USABlood Cultureon 17-69-0256Oyasugmk identified Cx Nom (Bld) NO GROWTH 5 DAYS PERFORMED BY: [place] [address] PATHOLOGIST MEDICAL LABORATORY SPECIALIST RADHA CARR M.D.[facility] Physician GroupComment on above:Performed By: #### BMP, CBC #### [place] [address] USABacteria identified Cx Nom (Bld)NO GROWTH 5 DAYS PERFORMED BY: [place] [address] PATHOLOGIST MEDICAL LABORATORY SPECIALIST RADHA CARR M.D.[facility] Physician [facility] WesleyComment on above:Performed By: #### BMP, CBC #### [place] [address] USACalcium [Mass/volume] in Serum or PlasmaOrdered By: Shaniqua Duarte on 45-45-9624Vpkpzch [Mass/Vol]9.8 mg/dLNormal8.6-10.3FUniversity Hospitals TriPoint Medical CenterComment on above:Performed By: #### BMP, CBC #### [place] [address] USACarbon dioxide, total [Moles/volume] in Serum or Plasma Ordered By: Shaniqua Duarte on 60-31-9971XU0 [Moles/Vol]18.3 mmol/LLow21.0-31.0 Toledo HospitalComment on above:Performed By: #### BMP, CBC #### [place] [address] USAChloride [Moles/volume] in Serum or PlasmaOrdered By: Shaniqua Duarte on 40-63-8171Fdyslkgb [Moles/Vol]107 mmol/FCwxsrv60-068LiqunaannToledo HospitalComment on above:Performed By: #### BMP, CBC #### [facility] [address] [place] [address] USAColor of Urine by AutoOrdered By: Shaniqua Duarte on 14-24-3776Deznc (U)Light-yellowNormalYPaulding County Hospital Comment on above:Order Comment: Name Collection Type:: VoidedPerformed By: #### SCAN CBC, CK, CMP, PT, PTT, HS TROP #### [facility] [address] [place] [address] USAComplete Blood Count Auto Diffon 19-52-3545Ndxe Corpuscular HGB Conc33.1 g/vFOwinbn55.5-35.6The [facility] Physician GroupComment on above:Performed By: #### BMP, CBC #### [place] [address] USAMonocytes/100 WBC (Bld)17.70 %Normal0.00-20.00The [facility] Physician [facility] WesleyComment on above:Performed By: #### BMP, CBC #### [place] [address] USANRBC%0.1 /100{WBC}Normal0-0.5The [facility] Comment on above:Performed By: #### BMP, CBC #### [place] [address] USAComprehensive Metabolic Panelon 53-76-5613Amgzncs [Mass/Vol]4.3 g/dLNormal3.5-5.7The [facility] Physician GroupComment on above: Performed By: #### BMP, CBC #### [place] [address] USACreatinine Clr Calc Cebuhbeg89.75NormalThe [facility] Physician GroupComment on above:Result Comment: PERFORMED BY: [place] [address] PATHOLOGIST MEDICAL LABORATORY SPECIALIST RADHA CARR M.D.Performed By: #### BMP, CBC #### [place] [address] USAGFR/1.73 sq M.predicted MDRD (S/P/Bld) [Vol rate/Area] 46.132 mL/min/{1.73_m2}NormalTri-County Hospital - Williston Physician GroupComment on above: Performed By: #### BMP, CBC #### [place] [address] USACreatinine [Mass/volume] in Serum or PlasmaOrdered By: Shaniqua Duarte on 96-92-3330Pzsharpavd [Mass/Vol]1.64 mg/dLHigh0.70-1.30 Toledo HospitalComment on above:Performed By: #### BMP, CBC #### [place] [address] USADipstick and Microscopicon 91-04-8034Ukpdijsj,Urine1+High None SeenThe [facility] Physician GroupComment on above:Order Comment: Name Collection Type:: VoidedPerformed By: #### SCAN CBC, CK, CMP, PT, PTT, HS TROP #### [place] [address] USABilirubin,UrineNegativeNormalNegativeTri-County Hospital - Williston Physician GroupComment on above:Order Comment: Name Collection Type:: Voided Performed By: #### SCAN CBC, CK, CMP, PT, PTT, HS TROP #### [place] [address] USAGlucose Ql (U)>=1000HighNormalThe [facility] Physician [facility] WesleyComment on above:Order Comment: Name Collection Type:: VoidedPerformed By: #### SCAN CBC, CK, CMP, PT, PTT, HS TROP #### [place] [address] USAHyaline Casts,UrineNoneNormal0-8The [facility] Physician GroupComment on above:Order Comment: Name Collection Type:: VoidedPerformed By: #### SCAN CBC, CK, CMP, PT, PTT, HS TROP #### [place] [address] USAMucus,UrineRareNormalThe [facility] Physician GroupComment on above:Order Comment: Name Collection Type:: VoidedResult Comment: PERFORMED BY: [place] [address] PATHOLOGIST MEDICAL LABORATORY SPECIALIST RADHA CARR M.D.Performed By: #### SCAN CBC, CK, CMP, PT, PTT, HS TROP #### [place] [address] USANitrite,UrineNegativeNormalNegativeThe [facility] Physician GroupComment on above:Order Comment: Name Collection Type:: VoidedPerformed By: #### SCAN CBC, CK, CMP, PT, PTT, HS TROP #### [place] [address] USAOccult Blood,Urine1+HighNegativeThe [facility] Physician GroupComment on above:Order Comment: Name Collection Type:: VoidedResult Comment: PERFORMED BY: [place] [address] PATHOLOGIST MEDICAL LABORATORY SPECIALIST RADHA CARR M.D.Performed By: #### SCAN CBC, CK, CMP, PT, PTT, HS TROP #### [place] [address] USARBC,Igqgk1-1Rdyd6-2Zyy [facility] Physician GroupComment on above:Order Comment: Name Collection Type:: VoidedPerformed By: #### SCAN CBC, CK, CMP, PT, PTT, HS TROP #### [place] [address] USASpecificy [place],Urine1.591Sxduqa3.001-1.030The [facility] Physician GroupComment on above:Order Comment: Name Collection Type:: Voided Performed By: #### SCAN CBC, CK, CMP, PT, PTT, HS TROP #### [place] [address] USASquamous Epithelial Cell,Pnmdr9-9Uuuwjp2-2Lee [facility] Physician GroupComment on above:Order Comment: Name Collection Type:: Voided Performed By: #### SCAN CBC, CK, CMP, PT, PTT, HS TROP #### [facility] [address] [place] [address] USAUrobilinogen,UrineNormalNormalNormalThe [facility] Physician GroupComment on above:Order Comment: Name Collection Type:: Voided Performed By: #### SCAN CBC, CK, CMP, PT, PTT, HS TROP #### [facility] [address] [place] [address] USAWBC CLUMP, UrineManyHighNone SeenTri-County Hospital - Williston Physician GroupComment on above:Order Comment: Name Collection Type:: VoidedPerformed By: #### SCAN CBC, CK, CMP, PT, PTT, HS TROP #### [facility] [address] [place] [address] USAWBC,UrineInnumerableHigh0-4The [facility] Comment on above:Order Comment: Name Collection Type:: VoidedPerformed By: #### SCAN CBC, CK, CMP, PT, PTT, HS TROP #### [facility] [address] [place] [id number] USAECG 12 lead ECGon 68-23-0121ICE 12 lead [facility]GTHE [facility] [place] [address] [place] [address] Electrocardiograph Report Signed Patient: Rod Mathias MR#: [id number] : 1960 Acct:[id number] Age/Sex: 63 / M ADM Date: 08/09/24 Loc: Room: [address] [place] [address] Type: ADM IN Attending Dr: mArik Rojas DO Ordering Provider: Shaniqua Duarte MD Date of Service: 08/09/24 ECG/ECG 12 lead ECG: dizzy Copies to: Test Reason : Blood Pressure : 127/75 mmHG Vent. Rate : 123 BPM Atrial Rate : 123 BPM P-R Int : 146 ms QRS Dur : 84 ms QT Int : 298 ms P-R-T Axes : 61 86 53 degrees QTcB Int : 426 ms Sinus tachycardia Low voltage QRS Cannot rule out Anterior infarct (cited on or before 09-Jul-2024) Abnormal ECG When compared with ECG of 09-Jul-2024 16:36, No significant change was found Confirmed by SHANIQUA DUARTE MD ([id number]) on 08/10/2024 12:55:22 AM Referred By: Electronically Signed By: SHANIQUA DUARTE MD Transcribed By: MUS Signed By Shaniqua Duarte MD 07/22 11/[address] [place] [address] Physician GroupEpithelial cells.squamous [#/area] in Urine sediment by Automated countOrdered By: Shaniqua Duarte on 08-09-2024 Epithelial cells.squamous Auto (Urine sed) [#/Area]1-2 [HPF]0-2FUniversity Hospitals TriPoint Medical CenterErythrocyte distribution width [Ratio] by Automated count Ordered By: Shaniqua Duarte on 46-88-8073Teozbknlefz distribution width (RBC) [Ratio]15.5 %High12.0-14.8T[facility]edo HospitalComment on above: Performed By: #### BMP, CBC #### [facility] [address] [place] [id number] USAErythrocytes [#/area] in Urine sediment by Automated count Ordered By: Shaniqua Duarte on 43-75-8945SHQ Auto (Urine sed) [#/Area]5-9 [HPF] High0-4FUniversity Hospitals TriPoint Medical CenterErythrocytes [#/volume] in Blood by Automated countOrdered By: Shaniqua Duarte on 07-99-6860GOD (Bld) [#/Vol]4.73 10*6/uLNormal3.90-5.60T[facility] HospitalComment on above: Performed By: #### BMP, CBC #### [facility] [address] [place] [id number] USAGlucose [Mass/volume] in Serum or PlasmaOrdered By: Shaniqua Duarte on 21-45-6552Ahztdor [Mass/Vol]189 mg/vCLahi67-472VlkbioxbtToledo HospitalComment on above:ADA recommended reference rangeRandom Glucose Reference Range is dependent on time and content of last meal. Glucose of more than 200 mg/dL in a nonstressed, ambulatory subject supports the diagnosisof Diabetes Mellitus.Result Comment: Random Glucose Reference Range is dependent on time and content of last meal. Glucose of more than 200 mg/dL in a nonstressed, ambulatory subject supports the diagnosis of Diabetes Mellitus. ADA recommended reference rangePerformed By: #### BMP, CBC #### [facility] [address] [place] [address] USAGlucose [Mass/volume] in Urine by Test stripOrdered By: Shaniqua Duarte on 84-49-7230Rsmsvyk Test strip (U) [Mass/Vol]>=1000 mg/dLHigh NormalToledo HospitalHematocrit [Volume Fraction] of Blood by Automated countOrdered By: Shaniqua Duarte on 44-22-9500Jscyzokwxb (Bld) [Volume fraction]43.4 %Eamgvg76.8-50.0T[facility] HospitalComment on above: Performed By: #### BMP, CBC #### [place] [id number] USAHemoglobin Test strip Ql (U)Ordered By: Shaniqua Duarte on 22-94-7761Ajkdpjbgpw Ql (U)1+HighNegBarney Children's Medical Center Hemoglobin [Mass/volume] in BloodOrdered By: Shaniqua Duarte on 08-09-2024 Hemoglobin (Bld) [Mass/Vol]14.4 g/hVUbbdra48.0-17.0T[facility] HospitalComment on above:Performed By: #### BMP, CBC #### [place] [id number] USAHyaline casts [#/area] in Urine sediment by Automated countOrdered By: Shaniqua Duarte on 99-21-7721Wwxkzdn casts Auto (Urine sed) [#/Area]None [LPF]0-8T[facility]edo HospitalKetones [Presence] in Urine by Test stripOrdered By: Shaniqua Duarte on 99-30-8028Ytmdtla Ql (U) NegativeNormalNegBarney Children's Medical CenterComment on above:Order Comment: Name Collection Type:: VoidedPerformed By: #### SCAN CBC, CK, CMP, PT, PTT, HS TROP #### [address] [address] USALaboratory - Microbiology and Antimicrobial susceptibility Ordered By: Shaniqua Duarte on 83-54-4655Akdnlnlt identified Cx Nom (U) Escherichia coli (ESBL)AbnormalToledo HospitalLactate [Moles/volume] in Serum or PlasmaOrdered By: Shaniqua Duarte on 14-22-0674Viizpbx [Moles/Vol]2.1 mmol/LHigh0.5-2.2FUniversity Hospitals TriPoint Medical CenterComment on above:Critical Result : Called to and read back by: GABI VUONG at: 08/09/2024 23:28:31 by:DHLactate [Moles/Vol]2.1 mmol/LOff scale high0.5-2.2FUniversity Hospitals TriPoint Medical CenterComment on above:Critical Result : Called to and read back by: LORNA WINSLOW at: 08/09/2024 20:18:25 by:Melissa Comment: Critical Result : Called to and read back by: LORNA WINSLOW at: 08/09/2024 20:18:25 by:NENA PERFORMED BY: [place] [address] PATHOLOGIST MEDICAL LABORATORY SPECIALIST RADHA CARR M.D.Performed By: #### SCAN CBC, CK, CMP, PT, PTT, HS TROP #### [facility] [address] [place] [address] USALactic Acid Reflexon 36-19-6457Tikoqh Acid Reflex2.1 mmol/LOff scale high0.5-2.2The [facility] Physician GroupComment on above:Result Comment: Critical Result : Called to and read back by: GABI VUONG at: 08/09/2024 23:28:31 by:PATRICK PERFORMED BY: [place] [address] PATHOLOGIST MEDICAL LABORATORY SPECIALIST RADHA CARR M.D.Performed By: #### SCAN CBC, CK, CMP, PT, PTT, HS TROP #### [facility] [address] [place] [address] USALeukocyte clumps [Presence] in Urine by AutomatedOrdered By: Shaniqua Duarte on 34-39-9643Fujnihgaq clumps Auto Ql (U)Many [LPF]HighNone SeenToledo HospitalLeukocyte esterase [Presence] in Urine by Test stripOrdered By: Shaniqua Duarte on 96-65-8673Siyhdunvr esterase Test strip Ql (U)4+HighNegativeToledo HospitalComment on above:Order Comment: Name Collection Type:: VoidedPerformed By: #### SCAN CBC, CK, CMP, PT, PTT, HS TROP #### [facility] [address] [place] [address] USALeukocytes [#/area] in Urine sediment by Automated count Ordered By: Shaniqua Duarte on 51-32-2935PWR Auto (Urine sed) [#/Area]Innumerable [HPF]High0-4FUniversity Hospitals TriPoint Medical CenterLeukocytes [#/volume] corrected for nucleated erythrocytes in Blood by Automated counOrdered By: Shaniqua Duarte on 66-43-0301RET corrected for nucl RBC Auto (Bld) [#/Vol]14.1 10*3/uLHigh 4.1-10.5FUniversity Hospitals TriPoint Medical CenterLeukocytes [#/volume] in Blood by Automated countOrdered By: Shaniqua Duarte on 42-16-8447IKR (Bld) [#/Vol]14.1 10*3/uLHigh4.1-10.5FUniversity Hospitals TriPoint Medical CenterComment on above:Performed By: #### BMP, CBC #### [facility] [address] [place] [id number] USALymphocytes [#/volume] in Blood by Automated countOrdered By: Shaniqua Duarte on 65-68-8342Qmdsyjlqfqe (Bld) [#/Vol]1.4 10*3/uLNormal 1.00-4.8T[facility]edo HospitalComment on above:Performed By: #### BMP, CBC #### [facility] [address] [place] [address] USALymphocytes/100 leukocytes in Blood by Automated count Ordered By: Shaniqua Duarte on 05-61-6258Pnikykeyjum/100 WBC (Bld)9.6 %Normal. [facility] HospitalComment on above:Performed By: #### BMP, CBC #### [facility] [address] [place] [id number] USAMCH [Entitic mass] by Automated countOrdered By: Shaniqua Duarte on 40-26-5125ULC (RBC) [Entitic mass]30.4 zoSkszvh58.5-35.2FUniversity Hospitals TriPoint Medical CenterComment on above:Performed By: #### BMP, CBC #### [facility] [address] [place] [address] USAMCHC Auto (RBC) [Mass/Vol]Ordered By: Shaniqua Duarte on 96-17-2934BXCY (RBC) [Mass/Vol]33.1 g/dL32.5-35.6FUniversity Hospitals TriPoint Medical CenterMCV [Entitic volume] by Automated countOrdered By: Shaniqua Duarte on 15-71-2776WPU (RBC) [Entitic vol]91.7 lYMtwjuk21.5-101T[facility]edo HospitalComment on above:Performed By: #### BMP, CBC #### [facility] [address] [place] [address] USAMonocyte distribution width [Entitic volume] in Blood by AutomatedOrdered By: Shaniqua Duarte on 83-26-0691Yajfftgl distribution width Auto (Bld) [Entitic vol]17.70 %0.00-20.00T[facility]edo HospitalMucus [Presence] in Urine by AutomatedOrdered By: Shaniqua Duarte on 01-01-4059Xarif Auto Ql (U)Rare [LPF]T[facility]edo HospitalNeutrophils [#/volume] in Blood by Automated countOrdered By: Shaniqua Duarte on 83-96-2403Woqgkeeqyje (Bld) [#/Vol]11.3 10*3/uLHigh1.8-7.7FUniversity Hospitals TriPoint Medical CenterComment on above:Performed By: #### BMP, CBC #### [facility] [address] [place] [address] USANitrite Test strip Ql (U)Ordered By: Shaniqua Duarte on 18-21-2356Ktwnijq Ql (U)NegativeNegativeToledo HospitalNo Panel InformationOrdered By: Shaniqua Duarte on 47-40-0760Sgnfuwtxr GFR (CKD-EPI) 46.132 mL/MinToledo HospitalPharmacy Creatinine Clearance (Chem54.75T[facility]edo HospitalNucleated erythrocytes [Presence] in Blood by Automated countOrdered By: Shaniqua Duarte on 61-10-0323Pbhnhzfpm RBC Auto Ql (Bld)0.1 /100{WBC}0-0.5FUniversity Hospitals TriPoint Medical CenterPlatelet mean volume [Entitic volume] in Blood by Automated countOrdered By: Shaniqua Duarte on 13-35-0831Gzuhutov mean volume (Bld) [Entitic vol]8.4 fLNormal6.6-10.1FUniversity Hospitals TriPoint Medical CenterComment on above:Performed By: #### BMP, CBC #### [place] [address] USAPlatelets [#/volume] in Blood by Automated countOrdered By: Shaniqua Duarte on 30-64-8863Biyfembfk (Bld) [#/Vol]219 10*3/yAOnlgqz339-153 [facility] HospitalComment on above:Performed By: #### BMP, CBC #### [place] [address] USAPotassium [Moles/volume] in Serum or PlasmaOrdered By: Shaniqua Duarte on 47-08-2720Amoqitjom [Moles/Vol]4.3 mmol/LNormal3.5-5.1 [facility] HospitalComment on above:Hemolysis is present at a level that could interfere with the result.Contact lab if redraw is required Result Comment: Hemolysis is present at a level that could interfere with the result. Contact lab if redraw is requiredPerformed By: #### BMP, CBC #### [place] [address] USAProtein [Mass/volume] in Serum or PlasmaOrdered By: Shaniqua Duarte on 58-69-1349Jolhgdx [Mass/Vol]8.0 g/dLNormal6.4-8.9T[facility] HospitalComment on above:Performed By: #### BMP, CBC #### [place] [address] USAProtein [Mass/volume] in Urine by Test stripOrdered By: Shaniqua Duarte on 56-00-0102Txcwpea (U) [Mass/Vol]20 mg/dLHighNegativeToledo HospitalComment on above:Order Comment: Name Collection Type:: VoidedPerformed By: #### SCAN CBC, CK, CMP, PT, PTT, HS TROP #### [facility] [address] [place] [address] USASerum globulin measurement by calculation (mass/volume) Ordered By: Shaniqua Duarte on 83-91-7365Beaxiryk (S) [Mass/Vol]3.7 g/dLNormal [facility] HospitalComment on above:Performed By: #### BMP, CBC #### [place] [address] USASerum or plasma albumin/globulin mass ratioOrdered By: Shaniqua Duarte on 94-85-4851Dsljxbg/Globulin [Mass ratio]1.2 {ratio}Normal [facility] HospitalComment on above:Performed By: #### BMP, CBC #### [place] [address] USASerum or plasma anion gap determinationOrdered By: Shaniqua Duarte on 90-64-3118Kaofs gap [Moles/Vol]16.0 mmol/LHigh6.0-15.0T[facility] HospitalComment on above:Performed By: #### BMP, CBC #### [place] [address] USASodium [Moles/volume] in Serum or PlasmaOrdered By: Shaniqua Duarte on 84-51-4983Vuxoxq [Moles/Vol]137 mmol/OHwbrot162-727HskvylbosToledo HospitalComment on above:Performed By: #### BMP, CBC #### [place] [address] USASpecific gravity Test strip (U) [Rel density]Ordered By: Shaniqua Duarte on 54-35-3623Lhyrwmqg gravity (U) [Rel density]1.0191.001-1.030 [facility] HospitalUrea nitrogen [Mass/volume] in Serum or Plasma Ordered By: Shaniqua Duarte on 65-30-8031Ahtd nitrogen [Mass/Vol]25 mg/dLNormal 7-25T[facility]edo HospitalComment on above:Performed By: #### BMP, CBC #### [address] [place] [address] USAUrine Cultureon 96-80-8022Vougqeex identified Cx Nom (U) ORGANISM: Escherichia coli (ESBL) (O:ESCCOLESBL) Seminary Count >100,000 Aerobic ASTRID Charge (NMIC56) SUSCEPTIBILITY ORGANISM: O:ESCCOLESBL ANTIBIOTIC INTERPRETATION ASTRID Amikacin S <16 Amoxacillin/K Clavulanate I 1616/8 Ampicillin R* >16 Ampicillin/Sulbactam I 1616/8 Aztreonam ESBL 8 Cefazolin R* >16 Cefepime R* 8 Ceftazidime ESBL 4 Ceftazidime/Avibactam S <4 Ceftolozane/Tazobactam S <2 Ceftriaxone ESBL >32 Cefuroxime R* >16 Ciprofloxacin R >2 Ertapenem S <0.5 Gentamicin S <2 Levofloxacin R >4 Meropenem S <1 Meropenem/Vaborbactam S <2 Nitrofurantoin S <32 Piperacillin/Tazobactam S 16 Tetracycline S <4 Tigecycline S <2 Tobramycin R >8 Trimethoprim/Sulfamethoxazole R >2 S = SUSCEPTIBLE I = INTERMEDIATE R = RESISTANT BLANK = DATA NOT AVAILABLE, OR DRUG NOT ADVISABLE OR TESTED R* = RESISTANCE DUE TO EXTENDED SPECTRUM BETA-LACTAMASES ESBL = EXTENDED SPECTRUM BETA-LACTAMASE TFG = THYMIDINE-DEPENDENT STRAIN JOSE ENRIQUE = BETA-LACTAMASE POSITIVE IB = INDUCIBLE BETA-LACTAMASE. APPEARS IN PLACE OF 'S' WITH SPECIES KNOWN TO POSSESS INDUCIBLE BETA-LACTAMASES. POTENTIALLY THEY MAY BECOME RESISTANT TO ALL B-LACTAM DRUGS. PERFORMED BY: [place] [address] PATHOLOGIST MEDICAL LABORATORY SPECIALIST RADHA CARR M.D.NormalThe [facility]ant Health Physician GroupComment on above:Performed By: #### SCAN CBC, CK, CMP, PT, PTT, HS TROP #### [facility] [address] [place] [address] USAUrine appearanceOrdered By: Shaniqua Duarte on 08-09-2024 Appearance (U)CloudyCritically abnormalCleSouthview Medical Center Comment on above:Order Comment: Name Collection Type:: VoidedPerformed By: #### SCAN CBC, CK, CMP, PT, PTT, HS TROP #### [facility] [address] [place] [address] USAUrobilinogen Test strip (U) [Mass/Vol]Ordered By: Shaniqua Duarte on 83-63-1994Fdfhvgmclsjs (U) [Mass/Vol]Normal mg/dLNoOhioHealth Shelby HospitalpH of Urine by Test stripOrdered By: Shaniqua Duarte on 38-48-4637jR (U)5.5 [pH]Normal5.0-9.0[facility] HospitalComment on above:Order Comment: Name Collection Type:: VoidedPerformed By: #### SCAN CBC, CK, CMP, PT, PTT, HS TROP #### [address] [address] USACapillary blood glucose measurement by glucometer (mass/volume)Ordered By: Jonnie Wright on 12-93-1806Caflclp [Mass/Vol]124 mg/dL [facility] County HospitalComment on above:Random Glucose Reference Range is dependent on time and content of last meal. Glucose of more than 200 mg/dL in a nonstressed, ambulatory subject supports the diagnosis of Diabetes Mellitus.Result Comment: Random Glucose Reference Range is dependent on time and content of last meal. Glucose of more than 200 mg/dL in a nonstressed, ambulatory subject supports the diagnosis of Diabetes Mellitus. PERFORMED BY: [place] [address] PATHOLOGIST MEDICAL LABORATORY SPECIALIST RADHA CARR M.D.Performed By: #### SCAN CBC, CK, CMP, PT, PTT, HS TROP #### [facility] [address] [place], [place] [address] USAGlucose Poct Glucometerson 38-26-5328Ejvhigu [Mass/Vol]128 mg/dLUF Health Shands Hospital Physician GroupComment on above:Result Comment: Random Glucose Reference Range is dependent on time and content of last meal. Glucose of more than 200 mg/dL in a nonstressed, ambulatory subject supports the diagnosis of Diabetes Mellitus. PERFORMED BY: [place] [id number] PATHOLOGIST MEDICAL LABORATORY SPECIALIST RADHA CARR M.D.Performed By: #### SCAN CBC, CK, CMP, PT, PTT, HS TROP #### [address] [address] USAXR chest 1V portableon 63-77-7809NY chest 1V portable [facility] [place] [address] [place] [address] XRay Report Signed Patient: Rod Mathias MR#: [id number] 1426 : 1960 Acct:[id number] Age/Sex: 63 / M ADM Date: 07/09/24 Loc: Room: [address] [place] [address] Type: ADM IN Attending Dr: Jonnie Wright MD Copies to: Jonnie Wright MD Ordering Provider: Jonnie Wright MD Date of Service: 07/14/24 XR/XR chest 1V portable: midline PORTABLE AP ERECT CHEST 1850 hours CLINICAL HISTORY: Midline catheter placement right arm COMPARISON: 07/09/2024 There is shallow inspiration. The cardiac and mediastinal contours are similar. There is no vascular congestion. No developing consolidation is seen. There is no effusion or pneumothorax. The osseous structures are intact. There is a cervical fusion plate. No catheter is identified extending into the chest. XR/XR chest 1V portable IMPRESSION: NO ACUTE CARDIOPULMONARY FINDINGS. NONVISUALIZATION OF THE CATHETER WITHIN THE CHEST. Impression dictated by: Angelica Bar M.D.07/14/2024 2:17 PM Dictation Location: [place] [address] Transcribed By: [facility] 07/14/24 1417 Dictated By: Angelica Bar MD 07/14/24 1414 Signed By: 07/14/24 1417NoFormerly [facility] Physician GroupGlucose Poct Glucometerson 09-40-5011Esqrbqz [Mass/Vol]109 mg/dLNoFormerly [facility] Physician GroupComment on above:Result Comment: Random Glucose Reference Range is dependent on time and content of last meal. Glucose of more than 200 mg/dL in a nonstressed, ambulatory subject supports the diagnosis of Diabetes Mellitus. PERFORMED BY: [place] [address] PATHOLOGIST MEDICAL LABORATORY SPECIALIST RADHA CARR M.D.Performed By: #### BMP, CBC #### [place] [address] USAGlucose [Mass/Vol]143 mg/dLUF Health Shands Hospital Physician GroupComment on above:Result Comment: Random Glucose Reference Range is dependent on time and content of last meal. Glucose of more than 200 mg/dL in a nonstressed, ambulatory subject supports the diagnosis of Diabetes Mellitus. PERFORMED BY: [place] [address] PATHOLOGIST MEDICAL LABORATORY SPECIALIST RADHA CARR M.D.Performed By: #### BMP, CBC #### [place] [address] [id number]: Cleaned MeterNoFormerly [facility] Physician GroupComment on above:Result Comment: PERFORMED BY: [place] [address] PATHOLOGIST MEDICAL LABORATORY SPECIALIST RADHA CARR M.D.Performed By: #### SCAN CBC, CK, CMP, PT, PTT, HS TROP #### [place] [address] USAGlucose [Mass/Vol]137 mg/dLNoFormerly [facility] Physician GroupComment on above:Result Comment: Random Glucose Reference Range is dependent on time and content of last meal. Glucose of more than 200 mg/dL in a nonstressed, ambulatory subject supports the diagnosis of Diabetes Mellitus.Performed By: #### SCAN CBC, CK, CMP, PT, PTT, HS TROP #### [place] [address] USAGlucose [Mass/Vol]125 mg/dLUF Health Shands Hospital Physician GroupComment on above:Result Comment: Random Glucose Reference Range is dependent on time and content of last meal. Glucose of more than 200 mg/dL in a nonstressed, ambulatory subject supports the diagnosis of Diabetes Mellitus. PERFORMED BY: [address] [address] PATHOLOGIST MEDICAL LABORATORY SPECIALIST RADHA CARR M.D.Performed By: #### SCAN CBC, CK, CMP, PT, PTT, HS TROP #### [facility] [address] [place] [address] USANo Panel InformationOrdered By: Jonnie Wright on 07-13-2024 Bedside Glucose CommentGlu2: cleaned [facility] Glucose Poct Glucometerson 68-70-7992Afpzmvl [Mass/Vol]167 mg/dLNoFormerly [facility] Physician GroupComment on above:Result Comment: Random Glucose Reference Range is dependent on time and content of last meal. Glucose of more than 200 mg/dL in a nonstressed, ambulatory subject supports the diagnosis of Diabetes Mellitus. PERFORMED BY: [place] [address] PATHOLOGIST MEDICAL LABORATORY SPECIALIST RADHA CARR M.D.Performed By: #### SCAN CBC, CK, CMP, PT, PTT, HS TROP #### [address] [address] USAGlucose [Mass/Vol]115 mg/dLNoFormerly [facility] Physician GroupComment on above:Result Comment: Random Glucose Reference Range is dependent on time and content of last meal. Glucose of more than 200 mg/dL in a nonstressed, ambulatory subject supports the diagnosis of Diabetes Mellitus. PERFORMED BY: [address] [address] PATHOLOGIST MEDICAL LABORATORY SPECIALIST RADHA CARR M.D.Performed By: #### SCAN CBC, CK, CMP, PT, PTT, HS TROP #### [address] [address] [id number]: Cleaned MeterUF Health Shands Hospital Physician GroupComment on above:Result Comment: PERFORMED BY: [address] [address] PATHOLOGIST MEDICAL LABORATORY SPECIALIST RADHA CARR M.D.Performed By: #### SCAN CBC, CK, CMP, PT, PTT, HS TROP #### [address] [place] [address] USAGlucose [Mass/Vol]140 mg/dLUF Health Shands Hospital Physician GroupComment on above:Result Comment: Random Glucose Reference Range is dependent on time and content of last meal. Glucose of more than 200 mg/dL in a nonstressed, ambulatory subject supports the diagnosis of Diabetes Mellitus.Performed By: #### SCAN CBC, CK, CMP, PT, PTT, HS TROP #### [place] [address] [id number]: Cleaned MeterNoFormerly [facility] Physician GroupComment on above:Result Comment: PERFORMED BY: [place] [address] PATHOLOGIST MEDICAL LABORATORY SPECIALIST RADHA CARR M.D.Performed By: #### SCAN CBC, CK, CMP, PT, PTT, HS TROP #### [place] [address] USAGlucose [Mass/Vol]172 mg/dLNoFormerly [facility] Physician GroupComment on above:Result Comment: Random Glucose Reference Range is dependent on time and content of last meal. Glucose of more than 200 mg/dL in a nonstressed, ambulatory subject supports the diagnosis of Diabetes Mellitus.Performed By: #### SCAN CBC, CK, CMP, PT, PTT, HS TROP #### [place] [address] USAAutomated basophil %Ordered By: Sen Neri on 95-60-8036Xltsysjwe/100 WBC (Bld)0.1 %Normal.[facility] Comment on above:Performed By: #### SCAN CBC, CK, CMP, PT, PTT, HS TROP #### [place] [address] USAAutomated basophil countOrdered By: Sen Neri on 26-34-8738Txbmtugod (Bld) [#/Vol]0.0 10*3/uLNormal0.0-0.2FUniversity Hospitals TriPoint Medical CenterComment on above:Result Comment: PERFORMED BY: [facility] [address] [place] [address] PATHOLOGIST MEDICAL LABORATORY SPECIALIST RADHA CARR M.D.Performed By: #### SCAN CBC, CK, CMP, PT, PTT, HS TROP #### [facility] [address] [place] [address] USAAutomated blood monocyte countOrdered By: Sen Neri on 61-79-2503Ehduzkqai (Bld) [#/Vol]1.5 10*3/uLHigh0.0-0.8[facility] HospitalComment on above:Performed By: #### SCAN CBC, CK, CMP, PT, PTT, HS TROP #### [facility] [address] [place] [address] USAAutomated eosinophil %Ordered By: Sen Neri on 14-64-1527Azjmgcyojaa/100 WBC (Bld)0.1 %Normal.[facility] Comment on above:Performed By: #### SCAN CBC, CK, CMP, PT, PTT, HS TROP #### [facility] [address] [place] [address] USAAutomated eosinophil countOrdered By: Sen Neri on 09-00-7856Cpqppjtlcon (Bld) [#/Vol]0.0 10*3/uLNormal0.0-0.45[facility] HospitalComment on above:Performed By: #### SCAN CBC, CK, CMP, PT, PTT, HS TROP #### [facility] [address] [place] [address] USAAutomated monocyte %Ordered By: Sen Neri on 96-35-2585Kmjgkhkie/100 WBC (Bld)9.4 %Normal.[facility] Comment on above:Performed By: #### SCAN CBC, CK, CMP, PT, PTT, HS TROP #### [facility] [address] [place] [address] USAAutomated neutrophil %Ordered By: Sen Neri on 91-94-6821Hsnqhnqlodp/100 WBC (Bld)83.0 %Normal.[facility] HospitalComment on above:Performed By: #### SCAN CBC, CK, CMP, PT, PTT, HS TROP #### [place] [id number] USABasic Metabolic Panelon 42-96-4898Ozzsvnumtv Clr Calc Slnunurf45.20NormHCA Florida Trinity Hospital Physician GroupComment on above:Result Comment: PERFORMED BY: [place] [address] PATHOLOGIST MEDICAL LABORATORY SPECIALIST RADHA CARR M.D.Performed By: #### SCAN CBC, CK, CMP, PT, PTT, HS TROP #### [place] [address] USAGFR/1.73 sq M.predicted MDRD (S/P/Bld) [Vol rate/Area] 41.532 mL/min/{1.73_m2}NormalThe [facility] Physician GroupComment on above: Performed By: #### SCAN CBC, CK, CMP, PT, PTT, HS TROP #### [place] [address] USACalcium [Mass/volume] in Serum or PlasmaOrdered By: Sen Neri on 17-44-4091Yhewabm [Mass/Vol]8.7 mg/dLNormal8.6-10.3FUniversity Hospitals TriPoint Medical CenterComment on above:Performed By: #### SCAN CBC, CK, CMP, PT, PTT, HS TROP #### [place] [id number] USACarbon dioxide, total [Moles/volume] in Serum or Plasma Ordered By: Sen Neri on 62-29-6837AO2 [Moles/Vol]21.0 mmol/LNormal 21.0-31.0[facility] HospitalComment on above:Performed By: #### SCAN CBC, CK, CMP, PT, PTT, HS TROP #### [place] [id number] USAChloride [Moles/volume] in Serum or PlasmaOrdered By: Sen Neri on 06-65-5258Leyfayav [Moles/Vol]107 mmol/SArqryl93-543WlrkughczToledo HospitalComment on above:Performed By: #### SCAN CBC, CK, CMP, PT, PTT, HS TROP #### [place] [address] USAComplete Blood Count Auto Diffon 66-69-0909Jinr Corpuscular HGB Conc33.2 g/sJKiwifz47.5-35.6The [facility] Physician GroupComment on above:Performed By: #### SCAN CBC, CK, CMP, PT, PTT, HS TROP #### [place] [address] USANRBC%0.0 /100{WBC}Normal0-0.5The [facility] Comment on above:Performed By: #### SCAN CBC, CK, CMP, PT, PTT, HS TROP #### [place] [address] USACreatinine [Mass/volume] in Serum or PlasmaOrdered By: Sen Neri on 31-57-1310Npnjvojcdg [Mass/Vol]1.79 mg/dLHigh0.70-1.30 [facility] HospitalComment on above:Performed By: #### SCAN CBC, CK, CMP, PT, PTT, HS TROP #### [place] [address] USAErythrocyte distribution width [Ratio] by Automated count Ordered By: Sen Neri on 93-56-6379Wmpixgitotr distribution width (RBC) [Ratio]14.9 %High12.0-14.8[facility] HospitalComment on above: Performed By: #### SCAN CBC, CK, CMP, PT, PTT, HS TROP #### [place] [address] USAErythrocytes [#/volume] in Blood by Automated countOrdered By: Sen Neri on 10-42-1058NQP (Bld) [#/Vol]3.97 10*6/uLNormal3.90-5.60 [facility] HospitalComment on above:Performed By: #### SCAN CBC, CK, CMP, PT, PTT, HS TROP #### [place] [address] USAGlucose Poct Glucometerson 39-42-4929Kawbtdy [Mass/Vol]139 mg/dLNoFormerly [facility] Physician GroupComment on above:Result Comment: Random Glucose Reference Range is dependent on time and content of last meal. Glucose of more than 200 mg/dL in a nonstressed, ambulatory subject supports the diagnosis of Diabetes Mellitus. PERFORMED BY: [place] [address] PATHOLOGIST MEDICAL LABORATORY SPECIALIST RADHA CARR M.D.Performed By: #### SCAN CBC, CK, CMP, PT, PTT, HS TROP #### [place] [address] USAGlucose [Mass/Vol]134 mg/dLNoFormerly [facility] Physician GroupComment on above:Result Comment: Random Glucose Reference Range is dependent on time and content of last meal. Glucose of more than 200 mg/dL in a nonstressed, ambulatory subject supports the diagnosis of Diabetes Mellitus. PERFORMED BY: [place] [address] PATHOLOGIST MEDICAL LABORATORY SPECIALIST RADHA CARR M.D.Performed By: #### SCAN CBC, CK, CMP, PT, PTT, HS TROP #### [place] [address] USAGlucose [Mass/Vol]245 mg/dLNoFormerly [facility] Physician GroupComment on above:Result Comment: Random Glucose Reference Range is dependent on time and content of last meal. Glucose of more than 200 mg/dL in a nonstressed, ambulatory subject supports the diagnosis of Diabetes Mellitus. PERFORMED BY: [place] [address] PATHOLOGIST MEDICAL LABORATORY SPECIALIST RADHA CARR M.D.Performed By: #### SCAN CBC, CK, CMP, PT, PTT, HS TROP #### [place] [address] USAGlucose [Mass/Vol]163 mg/dLNoFormerly [facility] Physician GroupComment on above:Result Comment: Random Glucose Reference Range is dependent on time and content of last meal. Glucose of more than 200 mg/dL in a nonstressed, ambulatory subject supports the diagnosis of Diabetes Mellitus. PERFORMED BY: [place] [address] PATHOLOGIST MEDICAL LABORATORY SPECIALIST RADHA CARR M.D.Performed By: #### SCAN CBC, CK, CMP, PT, PTT, HS TROP #### [facility] [address] [place] [address] USAGlucose [Mass/volume] in Serum or PlasmaOrdered By: Sen Neri on 26-71-1967Ksyktif [Mass/Vol]159 mg/aKFane06-961QauvoyiqjToledo HospitalComment on above:ADA recommended reference rangeRandom Glucose Reference Range is dependent on time and content of last meal. Glucose of more than 200 mg/dL in a nonstressed, ambulatory subject supports the diagnosisof Diabetes Mellitus.Result Comment: Random Glucose Reference Range is dependent on time and content of last meal. Glucose of more than 200 mg/dL in a nonstressed, ambulatory subject supports the diagnosis of Diabetes Mellitus. ADA recommended reference rangePerformed By: #### SCAN CBC, CK, CMP, PT, PTT, HS TROP #### [place] [id number] USAHematocrit [Volume Fraction] of Blood by Automated count Ordered By: Sen Neri on 95-74-7222Aluddufuky (Bld) [Volume fraction]36.4 % Low38.8-50.0[facility] HospitalComment on above:Performed By: #### SCAN CBC, CK, CMP, PT, PTT, HS TROP #### [facility] [address] [place] [address] USAHemoglobin [Mass/volume] in BloodOrdered By: Sen Neri on 39-31-0184Noobuxrkiz (Bld) [Mass/Vol]12.1 g/dLLow13.0-17.0[facility] HospitalComment on above:Performed By: #### SCAN CBC, CK, CMP, PT, PTT, HS TROP #### [place] [id number] USALeukocytes [#/volume] corrected for nucleated erythrocytes in Blood by Automated counOrdered By: Sen Neri on 73-64-1476ITZ corrected for nucl RBC Auto (Bld) [#/Vol]16.5 10*3/uLHigh4.1-10.5FUniversity Hospitals TriPoint Medical CenterLeukocytes [#/volume] in Blood by Automated countOrdered By: Sen Neri on 02-21-8561RIN (Bld) [#/Vol]16.5 10*3/uLHigh4.1-10.5FUniversity Hospitals TriPoint Medical CenterComment on above:Performed By: #### SCAN CBC, CK, CMP, PT, PTT, HS TROP #### [facility] [address] [place] [address] USALymphocytes [#/volume] in Blood by Automated countOrdered By: Sen Neri on 82-35-3820Mqawvzujrsk (Bld) [#/Vol]1.2 10*3/uLNormal 1.00-4.8[facility] HospitalComment on above:Performed By: #### SCAN CBC, CK, CMP, PT, PTT, HS TROP #### [facility] [address] [place] [address] USALymphocytes/100 leukocytes in Blood by Automated count Ordered By: Sen Neri on 35-28-9079Myumcighfow/100 WBC (Bld)7.4 %Normal. [facility] HospitalComment on above:Performed By: #### SCAN CBC, CK, CMP, PT, PTT, HS TROP #### [facility] [address] [place] [id number] [facility] [Entitic mass] by Automated countOrdered By: Sen Neir on 55-49-0697WLF (RBC) [Entitic mass]30.5 ylWdtynx77.5-35.2FUniversity Hospitals TriPoint Medical CenterComment on above:Performed By: #### SCAN CBC, CK, CMP, PT, PTT, HS TROP #### [facility] [address] [place] [id number] [facility] Auto (RBC) [Mass/Vol]Ordered By: Sen Neri on 52-81-3294FXGS (RBC) [Mass/Vol]33.2 g/dL32.5-35.6FUniversity Hospitals TriPoint Medical CenterMCV [Entitic volume] by Automated countOrdered By: Sen Neri on 87-09-1907CNT (RBC) [Entitic vol]91.8 qMKmwczi12.5-101[facility] HospitalComment on above:Performed By: #### SCAN CBC, CK, CMP, PT, PTT, HS TROP #### [facility] [address] [place] [address] USANeutrophils [#/volume] in Blood by Automated countOrdered By: Sen Neri on 92-74-5319Qiyssbarnlz (Bld) [#/Vol]13.7 10*3/uLHigh1.8-7.7 [facility] HospitalComment on above:Performed By: #### SCAN CBC, CK, CMP, PT, PTT, HS TROP #### [facility] [address] [place] [address] USANo Panel InformationOrdered By: Sen Neri on 68-18-4130Bvzzruwkx GFR (CKD-EPI)41.532 mL/MinToledo Hospital Pharmacy Creatinine Clearance (Chem52.20[facility] Nucleated erythrocytes [Presence] in Blood by Automated countOrdered By: Sen Neri on 12-17-5087Vbwwrrhwv RBC Auto Ql (Bld)0.0 /100{WBC}0-0.5FUniversity Hospitals TriPoint Medical CenterPlatelet mean volume [Entitic volume] in Blood by Automated countOrdered By: Sen Neri on 25-87-0420Aywumyfi mean volume (Bld) [Entitic vol]8.5 fLNormal6.6-10.1FUniversity Hospitals TriPoint Medical CenterComment on above:Performed By: #### SCAN CBC, CK, CMP, PT, PTT, HS TROP #### [facility] [address] [place] [address] USAPlatelets [#/volume] in Blood by Automated countOrdered By: Sen Neri on 12-54-3851Vrfymvonf (Bld) [#/Vol]207 10*3/eUWuldld234-422 [facility] HospitalComment on above:Performed By: #### SCAN CBC, CK, CMP, PT, PTT, HS TROP #### [facility] [address] [place] [address] USAPotassium [Moles/volume] in Serum or PlasmaOrdered By: Sen Neri on 28-12-1156Mjaakwuso [Moles/Vol]4.0 mmol/LNormal3.5-5.1 [facility] HospitalComment on above:Performed By: #### SCAN CBC, CK, CMP, PT, PTT, HS TROP #### [facility] [address] [place] [address] USASerum or plasma anion gap determinationOrdered By: Sen Neri on 27-85-7954Edejw gap [Moles/Vol]13.0 mmol/LNormal6.0-15.0[facility] HospitalComment on above:Performed By: #### SCAN CBC, CK, CMP, PT, PTT, HS TROP #### [place] [address] USASodium [Moles/volume] in Serum or PlasmaOrdered By: Sen Neri on 13-42-8919Vrbhef [Moles/Vol]137 mmol/HUnhvcq649-494LzkwkcjiaToledo HospitalComment on above:Performed By: #### SCAN CBC, CK, CMP, PT, PTT, HS TROP #### [place] [address] USAUrea nitrogen [Mass/volume] in Serum or PlasmaOrdered By: Sen Neri on 51-93-3498Slac nitrogen [Mass/Vol]25 mg/dLNormal7-25[facility] HospitalComment on above:Performed By: #### SCAN CBC, CK, CMP, PT, PTT, HS TROP #### [facility] [address] [place] [address] USABasic Metabolic Panelon 67-32-5780Nwatz gap [Moles/Vol] 11.4 mmol/LNormal6.0-15.0The [facility] Physician GroupComment on above:Performed By: #### SCAN CBC, CK, CMP, PT, PTT, HS TROP #### [place] [address] USACalcium [Mass/Vol]8.4 mg/dLLow8.6-10.3The [facility] Physician GroupComment on above:Performed By: #### SCAN CBC, CK, CMP, PT, PTT, HS TROP #### [place] [address] USAChloride [Moles/Vol]111 mmol/CVupv34-786Oel [facility] Physician GroupComment on above:Performed By: #### SCAN CBC, CK, CMP, PT, PTT, HS TROP #### [place] [address] USACO2 [Moles/Vol]18.5 mmol/LLow21.0-31.0The [facility] Physician GroupComment on above:Performed By: #### SCAN CBC, CK, CMP, PT, PTT, HS TROP #### [place] [address] USACreatinine [Mass/Vol]1.73 mg/dLHigh0.70-1.30The [facility] Physician GroupComment on above:Performed By: #### SCAN CBC, CK, CMP, PT, PTT, HS TROP #### [place] [address] USACreatinine Clr Calc Mhlsfxjk55.87NormalThe [facility] Physician GroupComment on above:Result Comment: PERFORMED BY: [place] [address] PATHOLOGIST MEDICAL LABORATORY SPECIALIST RADHA CARR M.D.Performed By: #### SCAN CBC, CK, CMP, PT, PTT, HS TROP #### [place] [address] USAGFR/1.73 sq M.predicted MDRD (S/P/Bld) [Vol rate/Area] 43.266 mL/min/{1.73_m2}NormalThe [facility] Physician GroupComment on above: Performed By: #### SCAN CBC, CK, CMP, PT, PTT, HS TROP #### [place] [address] USAGlucose [Mass/Vol]109 mg/kQStpm53-847Mpt [facility] Physician GroupComment on above:Result Comment: Random Glucose Reference Range is dependent on time and content of last meal. Glucose of more than 200 mg/dL in a nonstressed, ambulatory subject supports the diagnosis of Diabetes Mellitus. ADA recommended reference rangePerformed By: #### SCAN CBC, CK, CMP, PT, PTT, HS TROP #### [place] [address] USAPotassium [Moles/Vol]3.9 mmol/LNormal3.5-5.1The [facility] Physician GroupComment on above:Performed By: #### SCAN CBC, CK, CMP, PT, PTT, HS TROP #### [place] [address] USASodium [Moles/Vol]137 mmol/EXrdonc497-082Orb [facility] Physician GroupComment on above:Performed By: #### SCAN CBC, CK, CMP, PT, PTT, HS TROP #### [place] [address] USAUrea nitrogen [Mass/Vol]22 mg/dLNormal7-25The [facility] Physician GroupComment on above:Performed By: #### SCAN CBC, CK, CMP, PT, PTT, HS TROP #### [place] [address] USAComplete Blood Count Auto Diffon 44-50-1307Rmikfblnc (Bld) [#/Vol]0.1 10*3/uLNormal0.0-0.2The [facility] Physician GroupComment on above: Result Comment: PERFORMED BY: [place] [address] PATHOLOGIST MEDICAL LABORATORY SPECIALIST RADHA CARR M.D.Performed By: #### SCAN CBC, CK, CMP, PT, PTT, HS TROP #### [place] [address] USABasophils/100 WBC (Bld)0.3 %Normal.The [facility] Physician GroupComment on above:Performed By: #### SCAN CBC, CK, CMP, PT, PTT, HS TROP #### [place] [address] USAEosinophils (Bld) [#/Vol]0.0 10*3/uLNormal0.0-0.45The [facility] Physician GroupComment on above:Performed By: #### SCAN CBC, CK, CMP, PT, PTT, HS TROP #### [place] [address] USAEosinophils/100 WBC (Bld)0.0 %Normal.The [facility] Physician GroupComment on above:Performed By: #### SCAN CBC, CK, CMP, PT, PTT, HS TROP #### [place] [address] USAErythrocyte distribution width (RBC) [Ratio]15.2 %High 12.0-14.8The [facility] Physician GroupComment on above:Performed By: #### SCAN CBC, CK, CMP, PT, PTT, HS TROP #### [place] [address] USAHematocrit (Bld) [Volume fraction]38.9 %Khdhdb42.8-50.0The [facility] Physician GroupComment on above:Performed By: #### SCAN CBC, CK, CMP, PT, PTT, HS TROP #### [place] [address] USAHemoglobin (Bld) [Mass/Vol]12.8 g/dLLow13.0-17.0The [facility] Physician GroupComment on above:Performed By: #### SCAN CBC, CK, CMP, PT, PTT, HS TROP #### [place] [address] USALymphocytes (Bld) [#/Vol]1.6 10*3/uLNormal1.00-4.8The [facility] Physician GroupComment on above:Performed By: #### SCAN CBC, CK, CMP, PT, PTT, HS TROP #### [place] [address] USALymphocytes/100 WBC (Bld)8.3 %Normal.The [facility] Physician GroupComment on above:Performed By: #### SCAN CBC, CK, CMP, PT, PTT, HS TROP #### [address] (RBC) [Entitic mass]30.2 yaJsqfgk57.5-35.2The [facility] Physician GroupComment on above:Performed By: #### SCAN CBC, CK, CMP, PT, PTT, HS TROP #### [address] (RBC) [Entitic vol]92.0 lISuhxwv46.5-101The [facility] Physician GroupComment on above:Performed By: #### SCAN CBC, CK, CMP, PT, PTT, HS TROP #### [place] [address] USAMean Corpuscular HGB Conc32.9 g/bOHvvmcp70.5-35.6The [facility] Physician GroupComment on above:Performed By: #### SCAN CBC, CK, CMP, PT, PTT, HS TROP #### [place] [address] USAMonocytes (Bld) [#/Vol]2.0 10*3/uLHigh0.0-0.8The [facility] Physician GroupComment on above:Performed By: #### SCAN CBC, CK, CMP, PT, PTT, HS TROP #### [place] [address] USAMonocytes/100 WBC (Bld)10.3 %Normal.The [facility] Physician GroupComment on above:Performed By: #### SCAN CBC, CK, CMP, PT, PTT, HS TROP #### [place] [address] USANeutrophils (Bld) [#/Vol]16.0 10*3/uLHigh1.8-7.7The [facility] Physician GroupComment on above:Performed By: #### SCAN CBC, CK, CMP, PT, PTT, HS TROP #### [address] [place] [address] USANeutrophils/100 WBC (Bld)81.1 %Normal.The [facility] Physician GroupComment on above:Performed By: #### SCAN CBC, CK, CMP, PT, PTT, HS TROP #### [place] [address] USANRBC%0.0 /100{WBC}Normal0-0.5The [facility] Comment on above:Performed By: #### SCAN CBC, CK, CMP, PT, PTT, HS TROP #### [place] [address] USAPlatelet mean volume (Bld) [Entitic vol]8.5 fLNormal 6.6-10.1The [facility] Physician GroupComment on above:Performed By: #### SCAN CBC, CK, CMP, PT, PTT, HS TROP #### [place] [address] USAPlatelets (Bld) [#/Vol]204 10*3/vTRkhkhp135-602Mjo [facility] Physician GroupComment on above:Performed By: #### SCAN CBC, CK, CMP, PT, PTT, HS TROP #### [place] [address] USARBC (Bld) [#/Vol]4.22 10*6/uLNormal3.90-5.60The [facility] Physician GroupComment on above:Performed By: #### SCAN CBC, CK, CMP, PT, PTT, HS TROP #### [place] [address] USAWBC (Bld) [#/Vol]19.7 10*3/uLHigh4.1-10.5The [facility] Physician GroupComment on above:Performed By: #### SCAN CBC, CK, CMP, PT, PTT, HS TROP #### [place] [address] USAGlucose Poct Glucometerson 97-68-2348Gckdmvr [Mass/Vol]140 mg/dLNormalThe [facility] Physician GroupComment on above:Result Comment: Random Glucose Reference Range is dependent on time and content of last meal. Glucose of more than 200 mg/dL in a nonstressed, ambulatory subject supports the diagnosis of Diabetes Mellitus. PERFORMED BY: [place] [address] PATHOLOGIST MEDICAL LABORATORY SPECIALIST RADHA CARR M.D.Performed By: #### SCAN CBC, CK, CMP, PT, PTT, HS TROP #### [place] [address] USAGlucose [Mass/Vol]180 mg/dLNoFormerly [facility] Physician GroupComment on above:Result Comment: Random Glucose Reference Range is dependent on time and content of last meal. Glucose of more than 200 mg/dL in a nonstressed, ambulatory subject supports the diagnosis of Diabetes Mellitus. PERFORMED BY: [place] [address] PATHOLOGIST MEDICAL LABORATORY SPECIALIST RADHA CARR M.D.Performed By: #### SCAN CBC, CK, CMP, PT, PTT, HS TROP #### [place] [id number] USAGlucose [Mass/Vol]151 mg/dLNoFormerly [facility] Physician GroupComment on above:Result Comment: Random Glucose Reference Range is dependent on time and content of last meal. Glucose of more than 200 mg/dL in a nonstressed, ambulatory subject supports the diagnosis of Diabetes Mellitus. PERFORMED BY: [place] [id number] PATHOLOGIST MEDICAL LABORATORY SPECIALIST RADHA CARR M.D.Performed By: #### SCAN CBC, CK, CMP, PT, PTT, HS TROP #### [place] [id number] USAGlucose [Mass/Vol]107 mg/dLNoFormerly [facility] Physician GroupComment on above:Result Comment: Random Glucose Reference Range is dependent on time and content of last meal. Glucose of more than 200 mg/dL in a nonstressed, ambulatory subject supports the diagnosis of Diabetes Mellitus. PERFORMED BY: [place] [id number] PATHOLOGIST MEDICAL LABORATORY SPECIALIST RADHA CARR M.D.Performed By: #### SCAN CBC, CK, CMP, PT, PTT, HS TROP #### [facility] [address] [place] [id number] USAAlanine aminotransferase [Enzymatic activity/volume] in Serum or PlasmaOrdered By: Rosa Mccracken on 44-92-6039ULZ [Catalytic activity/Vol]20 U/LNormal7-52Toledo HospitalComment on above: Performed By: #### SCAN CBC, CK, CMP, PT, PTT, HS TROP #### [facility] [address] [place] [id number] USAAlbumin [Mass/volume] in Serum or Plasma by Bromocresol green (BCG) dye binding methoOrdered By: Rosa Mccracken on 13-46-6349Zustccf BCG dye [Mass/Vol]4.4 g/dL3.5-5.7FUniversity Hospitals TriPoint Medical CenterAlkaline phosphatase [Enzymatic activity/volume] in Serum or PlasmaOrdered By: Rosa Mccracken on 16-52-1896PUY [Catalytic activity/Vol]85 U/ADjyhcj71-862ExbplnkdzToledo HospitalComment on above:Performed By: #### SCAN CBC, CK, CMP, PT, PTT, HS TROP #### [facility] [address] [place] [id number] USAAspartate aminotransferase [Enzymatic activity/volume] in Serum or PlasmaOrdered By: Rosa Mccracken on 57-99-3980AFM [Catalytic activity/Vol]13 U/KGkvhos10-35DbzrptffzToledo HospitalComment on above: Performed By: #### SCAN CBC, CK, CMP, PT, PTT, HS TROP #### [facility] [address] [place] [id number] USABacteria [Presence] in Urine by AutomatedOrdered By: Rosa Mccracken on 86-69-3925Knzbypza Auto Ql (U)1+ [HPF]HighNone [facility] CenterBacterial blood cultureOrdered By: Rosa Mccracken on 49-68-4971Ifndrotr identified Cx Nom (Bld)NO GROWTH 5 DAYSToledo HospitalBacteria identified Cx Nom (Bld)NO GROWTH 5 DAYSToledo HospitalBilirubin Test strip Ql (U)Ordered By: Rosa Mccracken on 69-63-6746Eoxmbabew Ql (U)NegativeNegativeToledo Hospital Bilirubin.total [Mass/volume] in Serum or PlasmaOrdered By: Rosa Mccracken on 72-79-6855Hxibmkyqt [Mass/Vol]1.2 mg/dLHigh0.3-1.0T[facility]edo HospitalComment on above:Performed By: #### SCAN CBC, CK, CMP, PT, PTT, HS TROP #### [facility] [address] [place] [address] USABlood Cultureon 64-51-5670Yhwicabu identified Cx Nom (Bld) NO GROWTH 5 DAYS PERFORMED BY: [place] [address] PATHOLOGIST MEDICAL LABORATORY SPECIALIST RADHA CARR M.D.NormalTri-County Hospital - Williston Physician GroupComment on above:Performed By: #### SCAN CBC, CK, CMP, PT, PTT, HS TROP #### [facility] [address] [place] [address] USABacteria identified Cx Nom (Bld)NO GROWTH 5 DAYS PERFORMED BY: [place] [address] PATHOLOGIST MEDICAL LABORATORY SPECIALIST RADHA CARR M.D.[facility] Physician GroupComment on above:Performed By: #### SCAN CBC, CK, CMP, PT, PTT, HS TROP #### [facility] [address] [place], [place] [id number] USACT abdomen pelvis wo conon 10-08-6134TK abdomen pelvis wo [facility] [place] [address] [place] [address] CT Scan Report Signed Patient: Rod Mathias MR#: [id number] 1426 : 1960 Acct:[id number] Age/Sex: 63 / M ADM Date: 07/09/24 Loc: ER Room: Type: PRE ER Attending Dr: Copies to: Rosa Mccracken APRN Ordering Provider: Rosa Mccracken APRN Date of Service: 07/09/24 CT/CT abdomen pelvis wo con: pain CT ABDOMEN AND PELVIS WITHOUT INTRAVENOUS CONTRAST: CLINICAL HISTORY: Blood in urine. History of stent removal yesterday. Nausea vomiting. COMPARISON: CT abdomen and pelvis 04/04/2023 TECHNIQUE: Spiral images were obtained through the abdomen and pelvis without intravenous contrast. This CT exam was performed using one or more following dose reduction techniques: Automated expos ure control, adjustment of the mA and/or kV according to patient size, or use of iterative reconstruction technique. FINDINGS: Lung Bases: [Minimal scarring.] Organs:Suboptimal evaluation due to lack of IV contrast. Hepatic steatosis. Gallbladder pancreas spleen and adrenal glands appear unremarkable. Right renal cysts. Bilateral nephrolithiasis, largest stone measuring 2 mm within the right kidney. Partially calcified lesion involving the right kidney, unchanged measuring 8 mm, too small for accurate characterization. Abdominal aorta demonstrates mild calcification without aneurysm.[ GI: Stomach is grossly unremarkable. Small bowel appears nondilated.[No acute colonic abnormality. Pelvis:[There is seen within the urinary bladder lumen. Prostatomegaly.] Peritoneum/Retroperitoneum:No free air, free fluid or lymphadenopathy. Mild right-sided periureteral fat stranding likely related to the patient's previous procedure.[ Abd wall/Bones:Abdominal wall demonstrates no acute findings. Osseous structures demonstrate degenerative change.[ CT/CT abdomen pelvis wo con IMPRESSION: No acute findings. Punctate bilateral nephrolithiasis. Impression dictated by: Gwyn Fischer Jr., SonyaOKristi07/09/2024 5:45 PM Dictation Location: [place] [address] Transcribed By: [facility] 07/09/241744 Dictated By: Gwyn Fischer Jr, DO 07/09/241741 Signed By: 07/09/24 1745[facility] Physician GroupColor of Urine by AutoOrdered By: Rosa Mccracken on 87-11-5199Hjyud (U)[facility]age Medical CenterComment on above:Order Comment: Name Collection Type:: Clean- Voided MidstreamPerformed By: #### SCAN CBC, CK, CMP, PT, PTT, HS TROP #### [place] [address] USAComprehensive Metabolic Panelon 60-50-2896Dpblpix [Mass/Vol]4.4 g/dLNormal3.5-5.7The [facility] Physician GroupComment on above: Performed By: #### SCAN CBC, CK, CMP, PT, PTT, HS TROP #### [place] [address] USAAnion gap [Moles/Vol]15.9 mmol/LHigh6.0-15.0The [facility] Physician GroupComment on above:Performed By: #### SCAN CBC, CK, CMP, PT, PTT, HS TROP #### [place] [address] USACalcium [Mass/Vol]9.3 mg/dLNormal8.6-10.3The [facility] Physician GroupComment on above:Performed By: #### SCAN CBC, CK, CMP, PT, PTT, HS TROP #### [place] [address] USAChloride [Moles/Vol]106 mmol/CDcwaok36-368Wgc [facility] Physician GroupComment on above:Performed By: #### SCAN CBC, CK, CMP, PT, PTT, HS TROP #### [place] [address] USACO2 [Moles/Vol]20.1 mmol/LLow21.0-31.0The [facility] Physician GroupComment on above:Performed By: #### SCAN CBC, CK, CMP, PT, PTT, HS TROP #### [place] [address] USACreatinine [Mass/Vol]1.93 mg/dLHigh0.70-1.30The [facility] Physician GroupComment on above:Performed By: #### SCAN CBC, CK, CMP, PT, PTT, HS TROP #### [place] [address] USACreatinine Clr Calc Synzofkg53.48NormalThe [facility] Physician GroupComment on above:Result Comment: PERFORMED BY: [place] [address] PATHOLOGIST MEDICAL LABORATORY SPECIALIST RADHA CARR M.D.Performed By: #### SCAN CBC, CK, CMP, PT, PTT, HS TROP #### [facility] [address] [place] [address] USAGFR/1.73 sq M.predicted MDRD (S/P/Bld) [Vol rate/Area] 37.944 mL/min/{1.73_m2}NormalThe [facility] Physician GroupComment on above: Performed By: #### SCAN CBC, CK, CMP, PT, PTT, HS TROP #### [facility] [address] [place] [address] USAGlucose [Mass/Vol]152 mg/eMSgyw28-327Ajl [facility] Physician GroupComment on above:Result Comment: Random Glucose Reference Range is dependent on time and content of last meal. Glucose of more than 200 mg/dL in a nonstressed, ambulatory subject supports the diagnosis of Diabetes Mellitus. ADA recommended reference rangePerformed By: #### SCAN CBC, CK, CMP, PT, PTT, HS TROP #### [facility] [address] [place] [address] USAPotassium [Moles/Vol]4.0 mmol/LNormal3.5-5.1The [facility] Physician GroupComment on above:Performed By: #### SCAN CBC, CK, CMP, PT, PTT, HS TROP #### [facility] [address] [place] [address] USASodium [Moles/Vol]138 mmol/FJywehr851-818Nmo [facility] Physician GroupComment on above:Performed By: #### SCAN CBC, CK, CMP, PT, PTT, HS TROP #### [facility] [address] [place] [address] USAUrea nitrogen [Mass/Vol]22 mg/dLNormal7-25The [facility] Physician GroupComment on above:Performed By: #### SCAN CBC, CK, CMP, PT, PTT, HS TROP #### [facility] [address] [place] [address] USADipstick and Microscopicon 23-02-0447Cqbngxwh,Urine1+High None SeenThe [facility] Physician GroupComment on above:Order Comment: Name Collection Type:: Clean-Voided MidstreamPerformed By: #### SCAN CBC, CK, CMP, PT, PTT, HS TROP #### [place] [address] USABilirubin,UrineNegativeNormalNegativeTri-County [facility] Physician GroupComment on above:Order Comment: Name Collection Type:: Clean- Voided MidstreamPerformed By: #### SCAN CBC, CK, CMP, PT, PTT, HS TROP #### [place] [address] USAGlucose Ql (U)>=1000HighNormalThSaint Alphonsus Medical Center [facility]ampa Physician GroupComment on above:Order Comment: Name Collection Type:: Clean-Voided MidstreamPerformed By: #### SCAN CBC, CK, CMP, PT, PTT, HS TROP #### [place] [address] USAHyaline Casts,UrineNoneNormal0-8The [facility] Physician GroupComment on above:Order Comment: Name Collection Type:: Clean-Voided MidstreamPerformed By: #### SCAN CBC, CK, CMP, PT, PTT, HS TROP #### [place] [address] USAMucus,UrineRareNormalTri-County Hospital [facility] Physician GroupComment on above:Order Comment: Name Collection Type:: Clean-Voided MidstreamResult Comment: PERFORMED BY: [place] [address] PATHOLOGIST MEDICAL LABORATORY SPECIALIST RADHA CARR M.D.Performed By: #### SCAN CBC, CK, CMP, PT, PTT, HS TROP #### [place] [address] USANitrite,UrinePositiveHighNegativeTri-County Hospital [facility] Physician GroupComment on above:Order Comment: Name Collection Type:: Clean-Voided MidstreamPerformed By: #### SCAN CBC, CK, CMP, PT, PTT, HS TROP #### [place] [address] USAOccult Blood,Urine2+HighNegativeThe [facility] Physician GroupComment on above:Order Comment: Name Collection Type:: Clean-Voided MidstreamResult Comment: PERFORMED BY: [place] [address] PATHOLOGIST MEDICAL LABORATORY SPECIALIST RADHA CARR M.D.Performed By: #### SCAN CBC, CK, CMP, PT, PTT, HS TROP #### [place] [address] USARBC,Apeuv87-69Hhic1-2Zny [facility] Physician GroupComment on above:Order Comment: Name Collection Type:: Clean-Voided MidstreamPerformed By: #### SCAN CBC, CK, CMP, PT, PTT, HS TROP #### [place] [address] USASpecificy [place],Urine1.908Pqyzzg6.001-1.030The [facility] Physician GroupComment on above:Order Comment: Name Collection Type:: Clean- Voided MidstreamPerformed By: #### SCAN CBC, CK, CMP, PT, PTT, HS TROP #### [place] [address] USAUrobilinogen,UrineNormalNormalNormalThe [facility] Physician GroupComment on above:Order Comment: Name Collection Type:: Clean- Voided MidstreamPerformed By: #### SCAN CBC, CK, CMP, PT, PTT, HS TROP #### [place] [address] USAWBC CLUMP, UrineManyHighNone SeenThe [facility] Physician GroupComment on above:Order Comment: Name Collection Type:: Clean-Voided MidstreamPerformed By: #### SCAN CBC, CK, CMP, PT, PTT, HS TROP #### [place] [address] USAWBC,UrineInnumerableHigh0-4The [facility] Comment on above:Order Comment: Name Collection Type:: Clean-Voided Midstream Performed By: #### SCAN CBC, CK, CMP, PT, PTT, HS TROP #### [place] [address] USAECG 12 lead ECGon 26-30-4870LAE 12 [facility] [place] [address] [place] [address] Electrocardiograph Report Signed Patient: Rod Mathias MR#: [id number] 1426 : 1960 Acct:[id number] Age/Sex: 63 / M ADM Date: 07/09/24 Loc: ER Room: Type: [facility] ER Attending Dr: Ordering Provider: Rosa Mccracken APRN Date of Service: 07/09/24 ECG/ECG 12 lead ECG: Fever Copies to: Test Reason : Blood Pressure : 138/72 mmHG Vent. Rate : 102 BPM Atrial Rate : 102 BPM P-R Int : 154 ms QRS Dur : 86 ms QT Int : 324 ms P-R-T Axes : 40 60 34 degrees QTcB Int : 422 ms Sinus tachycardia Cannot rule out Anterior infarct , age undetermined Abnormal ECG When compared with ECG of 24-Jul-2023 08:15, Vent. rate has increased by 38 bpm Minimal criteria for Anterior infarct are now present Confirmed by LEATHA HEMPHILL DO ([id number]) on 07/09/2024 7:39:34 PM Referred By: Electronically Signed By: LEATHA HEMPHILL DO Transcribed By: MUS Signed By Leatha Hemphill DO 07/09NoFormerly [facility] Physician GroupEpithelial cells.squamous [#/area] in Urine sediment by Automated countOrdered By: Rosa Mccracken on 07-09-2024 Epithelial cells.squamous Auto (Urine sed) [#/Area]N/[facility] HospitalErythrocytes [#/area] in Urine sediment by Automated countOrdered By: Rosa Mccracken on 51-34-1118IZJ Auto (Urine sed) [#/Area]10- [HPF]High0-4 [facility] HospitalGlucose Poct Glucometerson 23-91-2997Jwpktha [Mass/Vol]112 mg/dLNoFormerly [facility] Physician GroupComment on above:Result Comment: Random Glucose Reference Range is dependent on time and content of last meal. Glucose of more than 200 mg/dL in a nonstressed, ambulatory subject supports the diagnosis of Diabetes Mellitus. PERFORMED BY: [address] [address] PATHOLOGIST MEDICAL LABORATORY SPECIALIST RADHA CARR M.D.Performed By: #### SCAN CBC, CK, CMP, PT, PTT, HS TROP #### [address] [address] USAGlucose [Mass/volume] in Urine by Test stripOrdered By: Rosa Mccracken on 23-21-8791Iaaaidk Test strip (U) [Mass/Vol]>=1000 mg/dLHigh NormalToledo HospitalHemoglobin Test strip Ql (U)Ordered By: Rosa Mccracken on 95-14-9605Vxlyhomwlc Ql (U)2+HighNegativeToledo HospitalHyaline casts [#/area] in Urine sediment by Automated countOrdered By: Rosa Mccracken on 28-92-7138Rlfwmyp casts Auto (Urine sed) [#/Area]None [LPF]0-8T[facility]edo HospitalKetones [Presence] in Urine by Test stripOrdered By: Rosa Mccracken on 48-27-3481Wrlrjfk Ql (U)1+HighNegative [facility] HospitalComment on above:Order Comment: Name Collection Type:: Clean-Voided MidstreamPerformed By: #### SCAN CBC, CK, CMP, PT, PTT, HS TROP #### [facility] [address] [place] [address] USALactate [Moles/volume] in Serum or PlasmaOrdered By: Rosa Mccracken on 48-27-2620Enizxpg [Moles/Vol]1.9 mmol/L0.5-2.2FUniversity Hospitals TriPoint Medical CenterLactic Acidon 19-49-2258Bmtylne [Moles/Vol]2.2 mmol/LOff scale high0.5-2.2The [facility] Physician GroupComment on above:Result Comment: Critical Result : Called to and read back by: MARLENI BLANC at: 07/09/2024 19:04:18 by:SHAUNA PERFORMED BY: [place] [id number] PATHOLOGIST MEDICAL LABORATORY SPECIALIST RADHA CARR M.D.Performed By: #### GLULS #### Point of Care testing ,Lactic Acid Reflexon 45-64-9661Wilfuw Acid Reflex1.9 mmol/LNormal0.5-2.2The [facility] Physician GroupComment on above:Result Comment: PERFORMED BY: [place] [address] PATHOLOGIST MEDICAL LABORATORY SPECIALIST RADHA CARR M.D.Performed By: #### SCAN CBC, CK, CMP, PT, PTT, HS TROP #### [facility] [address] [place] [address] USALeukocyte clumps [Presence] in Urine by AutomatedOrdered By: Rosa Mccracken on 08-10-0877Hllnsqoze clumps Auto Ql (U)Many [LPF]HighFlagstaff Medical Centere SeenToledo HospitalLeukocyte esterase [Presence] in Urine by Test stripOrdered By: Rosa Mccracken on 56-44-9991Pevbhyqiz esterase Test strip Ql (U)4+HighNegativeToledo HospitalComment on above:Order Comment: Name Collection Type:: Clean-Voided MidstreamPerformed By: #### SCAN CBC, CK, CMP, PT, PTT, HS TROP #### [facility] [address] [place], [place] [address] USALeukocytes [#/area] in Urine sediment by Automated count Ordered By: Rosa Mccracken on 57-26-2701STZ Auto (Urine sed) [#/Area] Innumerable [HPF]High0-4FUniversity Hospitals TriPoint Medical CenterMonocyte distribution width [Entitic volume] in Blood by AutomatedOrdered By: Rosa Mccracken on 36-60-5169Kmxbogmo distribution width Auto (Bld) [Entitic vol]22.99 %High 0.00-20.00T[facility]edo HospitalComment on above:For adults in ED, MDW > 20.0 may be associated with a higher risk of sepsis during the first 12 h rs of hospital admissionMucus [Presence] in Urine by AutomatedOrdered By: Rosa Mccracken on 75-04-0827Cwvkk Auto Ql (U)Rare [LPF]T[facility]edo HospitalNitrite Test strip Ql (U)Ordered By: Rosa Mccracken on 07-09-2024 Nitrite Ql (U)PositiveHighNegBarney Children's Medical CenterPlatelet adequacy [Presence] in Blood by Light microscopyOrdered By: Rosa Vianeyelvi on 72-79-2728Msffgccyz LM Ql (Bld)NormalNormGrant Hospital Platelet morphology finding [Identifier] in BloodOrdered By: Rosa Vianeyelvi on 63-13-9134Njwbnkyk morphology finding Nom (Bld)NormalNoOhioHealth Shelby HospitalProtein [Mass/volume] in Serum or PlasmaOrdered By: Rosa Mccracken on 80-75-8407Dzlokcq [Mass/Vol]7.7 g/dLNormal6.4-8.9T[facility]edo HospitalComment on above:Performed By: #### SCAN CBC, CK, CMP, PT, PTT, HS TROP #### [place] [address] USAProtein [Mass/volume] in Urine by Test stripOrdered By: Rosa Mccracken on 93-43-4617Rbkojcl (U) [Mass/Vol]50 mg/dLHighNegBarney Children's Medical CenterComment on above:Order Comment: Name Collection Type:: Clean-Voided MidstreamPerformed By: #### SCAN CBC, CK, CMP, PT, PTT, HS TROP #### [place] [address] USARBC morphologyOrdered By: Rosa Mccracken on 46-07-3589HTI morphology finding Nom (Bld)NormalNormalDelaware County Hospital Comment on above:Performed By: #### SCAN CBC, CK, CMP, PT, PTT, HS TROP #### [facility] [address] [place] [address] USAScan and CBCon 77-28-5187Jqxrgfpjk (Bld) [#/Vol]0.0 10*3/uLNormal0.0-0.2The [facility] Physician GroupComment on above:Performed By: #### SCAN CBC, CK, CMP, PT, PTT, HS TROP #### [facility] [address] [place] [address] USABasophils/100 WBC (Bld)0.1 %Normal.The [facility] Physician GroupComment on above:Performed By: #### SCAN CBC, CK, CMP, PT, PTT, HS TROP #### [place] [address] USAEosinophils (Bld) [#/Vol]0.0 10*3/uLNormal0.0-0.45The [facility] Physician GroupComment on above:Performed By: #### SCAN CBC, CK, CMP, PT, PTT, HS TROP #### [place] [address] USAEosinophils/100 WBC (Bld)0.0 %Normal.The [facility] Physician GroupComment on above:Performed By: #### SCAN CBC, CK, CMP, PT, PTT, HS TROP #### [place] [address] USAErythrocyte distribution width (RBC) [Ratio]15.3 %High 12.0-14.8The [facility] Physician GroupComment on above:Performed By: #### SCAN CBC, CK, CMP, PT, PTT, HS TROP #### [place] [address] USAHematocrit (Bld) [Volume fraction]38.7 %Low38.8-50.0The [facility] Physician GroupComment on above:Performed By: #### SCAN CBC, CK, CMP, PT, PTT, HS TROP #### [place] [address] USAHemoglobin (Bld) [Mass/Vol]12.6 g/dLLow13.0-17.0The [facility] Physician GroupComment on above:Performed By: #### SCAN CBC, CK, CMP, PT, PTT, HS TROP #### [place] [address] USALymphocytes (Bld) [#/Vol]1.2 10*3/uLNormal1.00-4.8The [facility] Physician GroupComment on above:Performed By: #### SCAN CBC, CK, CMP, PT, PTT, HS TROP #### [facility] [address] [place] [address] USALymphocytes/100 WBC (Bld)5.9 %Normal.The [facility] Physician GroupComment on above:Performed By: #### SCAN CBC, CK, CMP, PT, PTT, HS TROP #### [facility] [address]H (RBC) [Entitic mass]30.1 ypVfpdeu46.5-35.2The [facility] Physician GroupComment on above:Performed By: #### SCAN CBC, CK, CMP, PT, PTT, HS TROP #### [facility] [address]V (RBC) [Entitic vol]92.6 uYMtgkzo26.5-101The [facility] Physician GroupComment on above:Performed By: #### SCAN CBC, CK, CMP, PT, PTT, HS TROP #### [place] [address] USAMean Corpuscular HGB Conc32.5 g/aAKycfzz54.5-35.6The [facility] Physician GroupComment on above:Performed By: #### SCAN CBC, CK, CMP, PT, PTT, HS TROP #### [place] [address] USAMonocytes (Bld) [#/Vol]2.1 10*3/uLHigh0.0-0.8The [facility] Physician GroupComment on above:Performed By: #### SCAN CBC, CK, CMP, PT, PTT, HS TROP #### [place] [address] USAMonocytes/100 WBC (Bld)22.99 %High0.00-20.00The [facility] Physician GroupComment on above:Result Comment: For adults in ED, MDW > 20.0 may be associated with a higher risk of sepsis during the first 12 hrs of hospital admissionPerformed By: #### SCAN CBC, CK, CMP, PT, PTT, HS TROP #### [place] [address] USAMonocytes/100 WBC (Bld)10.3 %Normal.The [facility] Physician GroupComment on above:Performed By: #### SCAN CBC, CK, CMP, PT, PTT, HS TROP #### [place] [address] USANeutrophils (Bld) [#/Vol]17.2 10*3/uLHigh1.8-7.7The [facility] Physician GroupComment on above:Performed By: #### SCAN CBC, CK, CMP, PT, PTT, HS TROP #### [place] [address] USANeutrophils/100 WBC (Bld)83.7 %Normal.The [facility] Physician GroupComment on above:Performed By: #### SCAN CBC, CK, CMP, PT, PTT, HS TROP #### [place] [address] USANRBC%0.0 /100{WBC}Normal0-0.5The [facility] Comment on above:Performed By: #### SCAN CBC, CK, CMP, PT, PTT, HS TROP #### [place] [address] USAPlatelet EstimateNormalNormalNormHCA Florida Trinity Hospital Physician GroupComment on above:Performed By: #### SCAN CBC, CK, CMP, PT, PTT, HS TROP #### [place] [address] USAPlatelet mean volume (Bld) [Entitic vol]8.3 fLNormal 6.6-10.1The [facility] Physician GroupComment on above:Performed By: #### SCAN CBC, CK, CMP, PT, PTT, HS TROP #### [place] [address] USAPlatelet MorphologyNormalNormalNormHCA Florida Trinity Hospital Physician GroupComment on above:Result Comment: PERFORMED BY: [place] [address] PATHOLOGIST MEDICAL LABORATORY SPECIALIST RADHA CARR M.D.Performed By: #### SCAN CBC, CK, CMP, PT, PTT, HS TROP #### [facility] [address] [place] [address] USAPlatelets (Bld) [#/Vol]210 10*3/aZBqwnot062-361Xpu [facility] Physician GroupComment on above:Performed By: #### SCAN CBC, CK, CMP, PT, PTT, HS TROP #### [place] [address] USARBC (Bld) [#/Vol]4.18 10*6/uLNormal3.90-5.60The [facility] Physician GroupComment on above:Performed By: #### SCAN CBC, CK, CMP, PT, PTT, HS TROP #### [place] [address] USAWBC (Bld) [#/Vol]20.6 10*3/uLHigh4.1-10.5The [facility] Physician GroupComment on above:Performed By: #### SCAN CBC, CK, CMP, PT, PTT, HS TROP #### [place] [address] USASerum globulin measurement by calculation (mass/volume) Ordered By: Rosa Mccracken on 92-41-9312Lhdwhsxg (S) [Mass/Vol]3.3 g/dLNormal [facility] HospitalComment on above:Performed By: #### SCAN CBC, CK, CMP, PT, PTT, HS TROP #### [place] [address] USASerum or plasma albumin/globulin mass ratioOrdered By: Rosa Mccracken on 37-88-1483Whahmzo/Globulin [Mass ratio]1.3 {ratio}Normal [facility] HospitalComment on above:Performed By: #### SCAN CBC, CK, CMP, PT, PTT, HS TROP #### [place] [address] USASpecific gravity Test strip (U) [Rel density]Ordered By: Rosa Mccracken on 43-84-0551Dbmpvenw gravity (U) [Rel density]1.0221.001-1.030 [facility] HospitalUrine Cultureon 26-30-7642Qlzhxaid identified Cx Nom (U)Results called at 0809 on 07/12/24 ORGANISM: Escherichia coli (ESBL) (O:ESCCOLESBL) Seminary Count >100,000 Aerobic ASTRID Charge (NMIC56) SUSCEPTIBILITY ORGANISM: O:ESCCOLESBL ANTIBIOTIC INTERPRETATION ASTRID Amikacin S <16 Amoxacillin/K Clavulanate I 1616/8 Ampicillin R* >16 Ampicillin/Sulbactam I 1616/8 Aztreonam ESBL 8 Cefazolin R* >16 Cefepime R* <2 Ceftazidime R* <1 Ceftazidime/Avibactam S <4 Ceftolozane/Tazobactam S <2 Ceftriaxone ESBL >32 Cefuroxime R* >16 Ciprofloxacin R >2 Ertapenem S <0.5 Gentamicin S <2 Levofloxacin R >4 Meropenem S <1 Meropenem/Vaborbactam S <2 Nitrofurantoin S <32 Piperacillin/Tazobactam S <8 Tetracycline S <4 Tigecycline S <2 Tobramycin R >8 Trimethoprim/Sulfamethoxazole R >2 S = SUSCEPTIBLE I = INTERMEDIATE R = RESISTANT BLANK = DATA NOT AVAILABLE, OR DRUG NOT ADVISABLE OR TESTED R* = RESISTANCE DUE TO EXTENDED SPECTRUM BETA-LACTAMASES ESBL = EXTENDED SPECTRUM BETA-LACTAMASE TFG = THYMIDINE-DEPENDENT STRAIN JOSE ENRIQUE = BETA-LACTAMASE POSITIVE IB = INDUCIBLE BETA-LACTAMASE. APPEARS IN PLACE OF 'S' WITH SPECIES KNOWN TO POSSESS INDUCIBLE BETA-LACTAMASES. POTENTIALLY THEY MAY BECOME RESISTANT TO ALL B-LACTAM DRUGS. PERFORMED BY: [facility] [address] [place] [address] PATHOLOGIST MEDICAL LABORATORY SPECIALIST RADHA CARR M.D.[facility] Physician GroupComment on above:Performed By: #### SCAN CBC, CK, CMP, PT, PTT, HS TROP #### [facility] [address] [place] [address] USAUrine appearanceOrdered By: Rosa Mccracken on 07-09-2024 Appearance (U)CloudyCritically abnormalClearFirelands Regional Medical Center Comment on above:Order Comment: Name Collection Type:: Clean-Voided Midstream Performed By: #### SCAN CBC, CK, CMP, PT, PTT, HS TROP #### [facility] [address] [place] [address] USAUrine culture routineOrdered By: Rosa Mccracken on 69-26-8486Kvkgsilv identified Cx Nom (U)Escherichia coli (ESBL)AbnormalToledo HospitalUrobilinogen Test strip (U) [Mass/Vol]Ordered By: Rosa Mccracken on 76-22-2074Jyixhlisaoin (U) [Mass/Vol]Normal mg/dLNormal [facility]edo HospitalXR chest 2V*on 41-40-4037VL chest 2V*[facility] [place] [address] [place] [address] XRay Report Signed Patient: Rod Mathias MR#: [id number] : 1960 Acct:[id number] Age/Sex: 63 / M ADM Date: 07/09/24 Loc: ER Room: Type: PRE ER Attending Dr: Copies to: Rosa Mccracken APRN Ordering Provider: Rosa Mccracken APRN Date of Service: 07/09/24 XR/XR chest 2V*: Fever Chest 2 views CLINICAL HISTORY: Recent lithotripsy and stent removal. Blood in urine. COMPARISON: Chest 07/24/2023 FINDINGS: Heart appears normal in size. Left basilar atelectasis. No consolidation pneumothorax pleural effusion or free air. XR/XR chest 2V* IMPRESSION: LEFT BASILAR ATELECTASIS. Impression dictated by: Gwyn Fischer Jr., D.OKristi07/09/2024 5:40 PM Dictation Location: [place] [address] Transcribed By: [facility] 07/09/24 174 Dictated By: Gwyn Fischer Jr, DO 07/09/24 173 Signed By: 07/09/24 1740[facility] Physician GrouppH of Urine by Test stripOrdered By: Rosa Mccracken on 91-44-0126qL (U)5.5 [pH]Normal5.0-9.0T[facility] HospitalComment on above:Order Comment: Name Collection Type:: Clean- Voided MidstreamPerformed By: #### SCAN CBC, CK, CMP, PT, PTT, HS TROP #### [facility] [address] [place] [address] NCIKfA5l (Bld) [Mass fraction]Ordered By: Nataly Celaya on 12-68-6914IUEU HealthcareLaboratory - Hematology and Cell countsOrdered By: Nataly Celaya on 55-74-7920KwH6g (Bld) [Mass fraction]6.8 %[facility] Activated partial thromboplastin time (aPTT) in platelet poor plasma by coagulation aOrdered By: Jose Hernandez on 92-41-2756tEFM Coag (PPP) [Time] 28.7 s25.1-36.5FUniversity Hospitals TriPoint Medical CenterComment on above:A hematocrit value greater than 55% may lead to inaccurate results in coagulation testing. Patientshaving hematocrit values >55% require a special collection tube for coagulation studies. Please contact the laboratory at [phone] for redraw instructions.Alanine aminotransferase [Enzymatic activity/volume] in Serum or PlasmaOrdered By: Jose Hernandez on 01-05-1561NQN [Catalytic activity/Vol]15 U/L7-52T[facility]edo HospitalAlbumin [Mass/volume] in Serum or Plasma by Bromocresol green (BCG) dye binding methoOrdered By: Jose Hernandez on 98-12-9216Difgcdv BCG dye [Mass/Vol]4.2 g/dL3.5-5.7FUniversity Hospitals TriPoint Medical CenterAlkaline phosphatase [Enzymatic activity/volume] in Serum or PlasmaOrdered By: Jose Hernandez on 45-41-9632GEI [Catalytic activity/Vol]91 U/L34-104 [facility] HospitalAmmonia [Moles/volume] in PlasmaOrdered By: Jose Hernandez on 37-63-3395Isrhvjt (P) [Moles/Vol]31 umol/F46-20DqlcfskkqToledo HospitalAspartate aminotransferase [Enzymatic activity/volume] in Serum or PlasmaOrdered By: Jose Hernandez on 84-08-2820VQO [Catalytic activity/Vol]12 U/U28-16TrwuluyfzToledo HospitalBasophils Auto (Bld) [#/Vol]Ordered By: Jose Hernandez on 27-92-6596Gwyatfojl (Bld) [#/Vol]0.0 10*3/uL0.0-0.2FUniversity Hospitals TriPoint Medical CenterBasophils/100 WBC Auto (Bld) Ordered By: Jose Hernandez on 30-51-1686Uzfypeuuz/100 WBC (Bld)0.5 %. [facility]edo HospitalBilirubin Test strip Ql (U)Ordered By: Jose Hernandez on 86-39-7058Jdsxwgqij Ql (U)NegativeNegativeToledo HospitalBilirubin.total [Mass/volume] in Serum or PlasmaOrdered By: Jose Hernandez on 37-20-0784Mhlouyujr [Mass/Vol]0.5 mg/dL0.3-1.0T[facility] HospitalCalcium [Mass/volume] in Serum or PlasmaOrdered By: Jose Hernandez on 79-43-7804Wlfneqf [Mass/Vol]9.2 mg/dL8.6-10.3FUniversity Hospitals TriPoint Medical CenterCarbon dioxide, total [Moles/volume] in Serum or Plasma Ordered By: Jose Hernandez on 06-59-7768TV6 [Moles/Vol]18.5 mmol/L21.0-31.0 [facility] HospitalChloride [Moles/volume] in Serum or Plasma Ordered By: Jose Hernandez on 08-48-2450Brznawly [Moles/Vol]113 mmol/L98-107 [facility] HospitalColor Auto (U)Ordered By: Jose Hernandez on 76-89-9357Icwvj (U)YellowYellowToledo HospitalCreatine kinase [Enzymatic activity/volume] in Serum or PlasmaOrdered By: Jose Hernandez 22-85-4492SR [Catalytic activity/Vol]73 U/W31-192MiebrgcrhToledo HospitalCreatinine [Mass/volume] in Serum or PlasmaOrdered By: Jose Hernandez on 10-84-2857Wbtfvflvqs [Mass/Vol]1.46 mg/dL0.70-1.30T[facility]edo HospitalEosinophils Auto (Bld) [#/Vol]Ordered By: Jose Hernandez on 07-24-2023 Eosinophils (Bld) [#/Vol]0.1 10*3/uL0.0-0.45[facility] Eosinophils/100 WBC Auto (Bld)Ordered By: Jose Hernandez on 07-24-2023 Eosinophils/100 WBC (Bld)1.2 %.T[facility]edo HospitalErythrocyte distribution width Auto (RBC) [Ratio]Ordered By: Jose Hernandez on 07-24-2023 Erythrocyte distribution width (RBC) [Ratio]13.7 %12.0-14.8T[facility]edo HospitalEthanol [Mass/volume] in Serum or PlasmaOrdered By: Jose Hernandez on 56-54-7672Lrugpop [Mass/Vol]mg/dLToledo Hospital Ethanol [Mass/Vol]TNPToledo HospitalComment on above:Test not performedGlobulin Calc (S) [Mass/Vol]Ordered By: Jose Hernandez on 07-24-2023 Globulin (S) [Mass/Vol]2.8 g/dLToledo HospitalGlucose Glucometer (BldC) [Mass/Vol]Ordered By: Jose Hernandez on 29-33-3028Iqsgjzl [Mass/Vol]220 mg/dLToledo HospitalComment on above:Random Glucose Reference Range is dependent on time and content of last meal. Glucose of more than 200 mg/dL in a nonstressed, ambulatory subject supports the diagnosis of Diabetes Mellitus.Glucose [Mass/volume] in Serum or PlasmaOrdered By: Jose Hernandez on 55-90-2126Zqvztxg [Mass/Vol]182 mg/wE35-066HtucovpnzToledo HospitalComment on above:ADA recommended reference rangeRandom Glucose Reference Range is dependent on time and content of last meal. Glucose of more than 200 mg/dL in a nonstressed, ambulatory subject supports the diagnosisof Diabetes Mellitus.Hematocrit Auto (Bld) [Volume fraction]Ordered By: Jose Hernandez on 68-58-2576Jfmdyssbju (Bld) [Volume fraction]40.4 %38.8-50.0 [facility] HospitalHemoglobin [Mass/volume] in BloodOrdered By: Jose Hernandez on 59-39-1237Xyoodpabun (Bld) [Mass/Vol]13.6 g/dL13.0-17.0 [facility] HospitalINR in Platelet poor plasma by Coagulation assayOrdered By: Jose Hernandez on 24-01-7117YUQ Coag (PPP) [Relative time] 0.9 {INR}T[facility]edo HospitalComment on above:INR Therapeutic Range A) Pre- and Peroperative OAT started two weeks before surgery. NOT HIP SURGERY: 1.5 - 2.5 HIP SURGERY: 2 - 3B) Primary and secondary prevention of venous THROMBOSIS: 2 - 3C) Active venous thrombosis, pulmonary embolismand prevention of recurrent venous thrombosis: 2 - 3D) Prevention of arterial thromboembolismincluding patients with mechanical heart valves: 3 - 4.5Ketones Auto test strip (U) [Mass/Vol]Ordered By: Jose Hernandez on 97-95-4672Lbjgnzw (U) [Mass/Vol]NegativeNegativeToledo HospitalLaboratory - Chemistry and Chemistry - challengeOrdered By: Jose Hernandez on 07-24-2023 CO2 [Moles/Vol]23.4 mmol/L24.0-29.0T[facility]edo HospitalHCO3 (Bld) [Moles/Vol]21.9 mmol/L23.0-29.0T[facility]edo HospitalLeukocytes [#/volume] corrected for nucleated erythrocytes in Blood by Automated coun Ordered By: Jose Hernandez on 32-39-9367GHV corrected for nucl RBC Auto (Bld) [#/Vol]8.4 10*3/uL4.1-10.5FUniversity Hospitals TriPoint Medical CenterLymphocytes Auto (Bld) [#/Vol]Ordered By: Jose Hernandez on 15-21-3643Xwoqdbxigel (Bld) [#/Vol]3.2 10*3/uL1.00-4.8T[facility]edo HospitalLymphocytes/100 WBC Auto (Bld)Ordered By: Jose Hernnadez on 65-74-6067Mzbpdvsfhxb/100 WBC (Bld) 38.5 %.[facility] Auto (RBC) [Entitic mass]Ordered By: Jose Hernandez on 11-28-9753PZR (RBC) [Entitic mass]30.8 pg27.5-35.2Fire[facility] Regional Medical CenterMCHC Auto (RBC) [Mass/Vol]Ordered By: Jose Hernandez on 53-28-3787ZOLB (RBC) [Mass/Vol]33.7 g/dL32.5-35.6FUniversity Hospitals TriPoint Medical CenterMCV Auto (RBC) [Entitic vol]Ordered By: Jose Hernandez on 86-90-2157OSE (RBC) [Entitic vol]91.6 fL83.5-101T[facility]edo HospitalMonocyte distribution width [Entitic volume] in Blood by AutomatedOrdered By: Jose Hernandez on 49-17-3811Vkgotvyo distribution width Auto (Bld) [Entitic vol]18.16 % 0.00-20.00T[facility]edo HospitalMonocytes Auto (Bld) [#/Vol]Ordered By: Jose Hernandez on 99-19-3266Wwvdjrynq (Bld) [#/Vol]0.8 10*3/uL0.0-0.8 [facility] HospitalMonocytes/100 WBC Auto (Bld)Ordered By: Jose Hernandez on 59-73-3845Khjanjlwb/100 WBC (Bld)9.7 %.T[facility]edo HospitalNeutrophils Auto (Bld) [#/Vol]Ordered By: Jose Hernandez on 34-12-3344Yqrxxfcxqjt (Bld) [#/Vol]4.2 10*3/uL1.8-7.7FUniversity Hospitals TriPoint Medical CenterNeutrophils/100 WBC Auto (Bld)Ordered By: Jose Hernandez on 07-24-2023 Neutrophils/100 WBC (Bld)50.1 %.T[facility]edo HospitalNitrite Test strip Ql (U)Ordered By: Jose Hernandez on 98-77-4838Bucepbp Ql (U)Negative NegativeToledo HospitalNo Panel InformationOrdered By: Jose Hernandez on 17-44-8440Ndyjn Gas Critical ValueSee commentToledo HospitalComment on above:Critical Value called on: 07/24/2023 at 10:43Blood Gas Sample SiteVenousToledo HospitalFiO2na % [facility]edo HospitalVentuba city regional health care corporation Blood Base Excess-5.4 mmol/L-3.0-3.0 [facility] HospitalVenous Blood Oxygen Ghutqwwbfv59.3 %73.0-76.0 [facility] HospitalVenous Blood Partial Pressure CO248.8 mm[Hg] 38.0-50.0T[facility]edo HospitalVenous Blood Partial Pressure O222.5 mm[Hg]35.0-45.0T[facility]edo HospitalVenous Blood pH7.277.32-7.43 [facility] HospitalEstimated GFR (CKD-EPI)53.370 mL/MinToledo HospitalPharmacy Creatinine Clearance (Chem62.55T[facility]edo HospitalBedside Glucose CommentGlu2: cleaned meterToledo HospitalNucleated erythrocytes [Presence] in Blood by Automated countOrdered By: Jose Hernandez on 48-15-7365Mjivluohd RBC Auto Ql (Bld)0.0 /100{WBC}0-0.5FUniversity Hospitals TriPoint Medical CenterPlatelet mean volume Auto (Bld) [Entitic vol]Ordered By: Jose Hernandez on 79-65-1367Xrhckckn mean volume (Bld) [Entitic vol]8.5 fL6.6-10.1FUniversity Hospitals TriPoint Medical CenterPlatelets Auto (Bld) [#/Vol]Ordered By: Jose Hernandez on 62-20-4087Kgihouifw (Bld) [#/Vol] 222 10*3/oY112-339NhafmstshToledo HospitalPotassium [Moles/volume] in Serum or PlasmaOrdered By: Jose Hernandez on 82-39-7769Qnefbzrew [Moles/Vol] 4.0 mmol/L3.5-5.1FUniversity Hospitals TriPoint Medical CenterProlactin [Mass/volume] in Serum or PlasmaOrdered By: Jose Hernandez on 73-50-9490Dyccazlok [Mass/Vol] 5.59 ng/mL2.64-13.13T[facility]edo HospitalProtein Auto test strip (U) [Mass/Vol]Ordered By: Jose Hernandez on 00-80-7262Gtltnxy (U) [Mass/Vol] NegativeNegativeToledo HospitalProtein [Mass/volume] in Serum or PlasmaOrdered By: Jose Hernandez on 62-09-2326Tktvgqw [Mass/Vol]7.0 g/dL 6.4-8.9T[facility]edo HospitalProthrombin time (PT)Ordered By: Jose Hernandez on 85-62-2577SY Coag (PPP) [Time]11.3 s9.0-12.9T[facility]edo HospitalComment on above:A hematocrit value greater than 55% may lead to inaccurate results in coagulation testing. Patientshaving hematocrit values >55% require a special collection tube for coagulation studies. Please c ontact the laboratory at [phone] for redraw instructions.RBC Auto (Bld) [#/Vol]Ordered By: Jose Hernandez on 45-55-3211BUV (Bld) [#/Vol]4.41 10*6/uL 3.90-5.60Aultman Hospitalerum or plasma albumin/globulin mass ratioOrdered By: Jose Hernandez on 45-82-9078Lqyrvnj/Globulin [Mass ratio]1.5 {ratio}[facility]ultman Hospitalerum or plasma anion gap determination Ordered By: Jose Hernandez on 41-34-2128Zlikg gap [Moles/Vol]11.5 mmol/L 6.0-15.0[facility]ultman Hospitalodium [Moles/volume] in Serum or PlasmaOrdered By: Jose Hernandez on 77-03-0748Glktlm [Moles/Vol]139 mmol/L 136-145Aultman Hospitalpecific gravity Auto test strip (U) [Rel density]Ordered By: Jose Hernandez on 63-53-3259Xonypvdo gravity (U) [Rel density]1.0251.001-1.030T[facility]edo HospitalThyrotropin [Units/volume] in Serum or PlasmaOrdered By: Jose Hernandez on 12-77-6521INJ Qn1.75 m[IU]/L0.45-5.33T[facility]edo HospitalTroponin I.cardiac [Mass/volume] in Serum or Plasma by Detection limit <= 0.01 ng/Ordered By: Jose Hernandez on 30-89-4024Clsasipw I.cardiac DL <= 0.01 ng/mL [Mass/Vol]4.0 pg/mL0.0-20.0T[facility] HospitalUrea nitrogen [Mass/volume] in Serum or PlasmaOrdered By: Jose Hernandez on 43-49-2741Oppp nitrogen [Mass/Vol]24 mg/dL7-25T[facility]edo HospitalUrine clarity by refractometry automatedOrdered By: Jose Hernandez on 14-16-3159Weyvslg Refractometry automated (U)ClearClearFUniversity Hospitals TriPoint Medical CenterUrine glucose measurement by automated test strip (mass/volume)Ordered By: Jose Hernandez on 30-36-0720Heqidmj Auto test strip (U) [Mass/Vol]>=1000 mg/dLNoal [facility]edo HospitalUrine hemoglobin detection by automated test stripOrdered By: Jose Hernandez on 60-55-2147Kihztcrjkt Auto test strip Ql (U)NegativeNegBarney Children's Medical CenterUrine leukocyte esterase detection by automated test stripOrdered By: Jose Hernandez on 07-24-2023 Leukocyte esterase Auto test strip Ql (U)NegativeNegBarney Children's Medical CenterUrobilinogen Auto test strip (U) [Mass/Vol]Ordered By: Jose Hernandez on 45-65-7944Molhhjinhnns (U) [Mass/Vol]Normal mg/dLNoOhioHealth Shelby HospitalWBC Auto (Bld) [#/Vol]Ordered By: Jose Hernandez on 59-95-2501RLH (Bld) [#/Vol]8.4 10*3/uL4.1-10.5FUniversity Hospitals TriPoint Medical Center pH Auto test strip (U)Ordered By: Jose Hernandez on 81-01-6659rZ (U)5.5 [pH] 5.0-9.0T[facility] HospitalCalcium [Mass/volume] in Serum or Plasma Ordered By: Shaila Bowen on 47-00-8134Emmdhuh [Mass/Vol]8.8 mg/dL8.6-10.3 [facility] HospitalCarbon dioxide, total [Moles/volume] in Serum or PlasmaOrdered By: Shaila Bowen on 37-86-9547AJ0 [Moles/Vol]21.3 mmol/L 21.0-31.0T[facility] HospitalChloride [Moles/volume] in Serum or PlasmaOrdered By: Shaila Bowen on 21-77-1597Lhhzbscr [Moles/Vol]111 mmol/L 98-107T[facility] HospitalCreatinine [Mass/volume] in Serum or PlasmaOrdered By: Shaila Bowen on 62-78-2882Taxkaskucl [Mass/Vol]1.61 mg/dL 0.70-1.30T[facility]edo HospitalErythrocyte distribution width Auto (RBC) [Ratio]Ordered By: Shaila Bowen on 02-08-0632Gwkyojbwicv distribution width (RBC) [Ratio]14.2 %12.0-14.8T[facility]edo HospitalGlucose Glucometer (BldC) [Mass/Vol]Ordered By: Shaila Bowen on 59-74-9011Fwxwfdw [Mass/Vol]200 mg/dLToledo HospitalComment on above:Random Glucose Reference Range is dependent on time and content of last meal. Glucose of more than 200 mg/dL in a nonstressed, ambulatory subject supports the diagnosis of Diabetes Mellitus.Glucose [Mass/volume] in Serum or PlasmaOrdered By: Shaila Bowen on 37-95-6848Uhsvgcj [Mass/Vol]146 mg/lQ68-543UfznweyniToledo HospitalComment on above:ADA recommended reference rangeRandom Glucose Reference Range is dependent on time and content of last meal. Glucose of more than 200 mg/dL in a nonstressed, ambulatory subject supports the diagnosisof Diabetes Mellitus.Hematocrit Auto (Bld) [Volume fraction]Ordered By: Shaila Bowen on 73-32-2144Umvqbjgjnj (Bld) [Volume fraction]39.9 %38.8-50.0 [facility] HospitalHemoglobin [Mass/volume] in BloodOrdered By: Shaila Bowen on 51-38-1404Tolwguzfmy (Bld) [Mass/Vol]13.5 g/dL13.0-17.0 [facility] HospitalLeukocytes [#/volume] corrected for nucleated erythrocytes in Blood by Automated counOrdered By: Shaila Bowen on 07-13-2023 WBC corrected for nucl RBC Auto (Bld) [#/Vol]6.6 10*3/uL4.1-10.5FUniversity Hospitals TriPoint Medical CenterMCH Auto (RBC) [Entitic mass]Ordered By: Shaila Bowen on 47-72-1245HDB (RBC) [Entitic mass]31.4 pg27.5-35.2FUniversity Hospitals TriPoint Medical CenterMCHC Auto (RBC) [Mass/Vol]Ordered By: Shaila Bowen on 72-60-9747ITRA (RBC) [Mass/Vol]33.9 g/dL32.5-35.6FUniversity Hospitals TriPoint Medical CenterMCV Auto (RBC) [Entitic vol]Ordered By: Shaila Bowen on 63-30-1927ITF (RBC) [Entitic vol]92.7 fL83.5-101T[facility]edo HospitalNo Panel InformationOrdered By: Shaila Bowen on 35-12-9258Zeatypv Glucose CommentGlu2: cleaned meter [facility] HospitalEstimated GFR (CKD-EPI)47.459 mL/MinToledo HospitalPharmacy Creatinine Clearance (Chem57.55T[facility]edo HospitalPlatelet mean volume Auto (Bld) [Entitic vol]Ordered By: Shaila Bowen on 15-89-5368Dyrolrjt mean volume (Bld) [Entitic vol]7.8 fL 6.6-10.1FUniversity Hospitals TriPoint Medical CenterPlatelets Auto (Bld) [#/Vol]Ordered By: Shaila Bowen on 70-15-8174Avnrognll (Bld) [#/Vol]194 10*3/aO195-407IdlovlebbToledo HospitalPotassium [Moles/volume] in Serum or PlasmaOrdered By: Shaila Bowen on 74-12-8207Vthmojbwd [Moles/Vol]4.1 mmol/L3.5-5.1FUniversity Hospitals TriPoint Medical CenterRBC Auto (Bld) [#/Vol]Ordered By: Shaila Bowen on 15-57-7095LMT (Bld) [#/Vol]4.31 10*6/uL3.90-5.60Aultman Hospitalerum or plasma anion gap determinationOrdered By: Shaila Bowen on 31-13-7369Kfpcx gap [Moles/Vol]11.8 mmol/L6.0-15.0Aultman Hospitalodium [Moles/volume] in Serum or PlasmaOrdered By: Shaila Bowen on 87-24-9798Iotlmf [Moles/Vol]140 mmol/Y547-453JlrzryiznToledo Hospital Urea nitrogen [Mass/volume] in Serum or PlasmaOrdered By: Shaila Bowen on 28-14-8231Uryt nitrogen [Mass/Vol]18 mg/dL7-25[facility] Ammonia [Moles/volume] in PlasmaOrdered By: Shaila Bowen on 11-24-7149Zyktogd (P) [Moles/Vol]27 umol/C01-31XfuuicfxnToledo HospitalCholesterol [Mass/volume] in Serum or PlasmaOrdered By: Shaila Bowen on 07-12-2023 Cholesterol [Mass/Vol]197 mg/jT213-825QsnggpvxfToledo HospitalComment on above:Chol less than 200 mg/dl low riskChol 201-239 mg/dl borderline riskChol 240 mg/dl and greater high riskCholesterol in LDL Calc [Mass/Vol]Ordered By: Shaila Bowen on 26-45-1094Iywejdldiqg in LDL [Mass/Vol]TNPToledo HospitalComment on above:Test not performedCholesterol in LDL [Mass/volume] in Serum or PlasmaOrdered By: Shaila Bowen on 07-12-2023 Cholesterol in LDL [Mass/Vol]117 mg/dL0-100[facility] Comment on above:LDL ATP III CLASSIFICATIONLDL less than 100 mg/dL OptimalLDL 100-129 mg/dL Near or above pjipvxmGFA110-579 mg/dL Borderline highLDL 160-189 mg/dL HighLDL greater than 189 mg/dL Very highCholesterol in VLDL Calc [Mass/Vol]Ordered By: Shaila Bowen on 70-05-6507Tzhbgpbnqua in VLDL [Mass/Vol] 87 mg/dLToledo HospitalMagnesium [Mass/volume] in Serum or PlasmaOrdered By: Shaila Bowen on 11-53-4989Sgocmsliq [Mass/Vol]2.1 mg/dL 1.9-2.7FCorey Hospitalerum or plasma high density lipoprotein (HDL) cholesterol measurementOrdered By: Shaila Bowen on 07-12-2023 Cholesterol in HDL [Mass/Vol]41 mg/mF14-38LzqvpsdcsToledo Hospital Comment on above:HDL CHOL ATP-III CLASSIFICATION Cardiovascular RiskHDL > or equal to 60 mg/dL LOWHDL < 40 mg/dL HIGHSerum or plasma total cholesterol/high density lipoprotein (HDL) cholesterol mass ratOrdered By: Shaila Bowen on 12-53-0573Xupgtcullir.total/Cholesterol in HDL [Mass ratio]4.8 {ratio}<5.0 [facility] HospitalTriglyceride [Mass/volume] in Serum or Plasma Ordered By: Shaila Bowen on 38-87-2107Lqrkcnosnpnc [Mass/Vol]438 mg/dL0-149 [facility] HospitalComment on above:If the triglyceride result is greater than 400, LDLC and related calculations cannot be calculated and resulted.TRIG ATP III CLASSIFICATIONTRIG less than 150 mg/dL NormalTRIG 150-199 mg/dL BorderlinehighTRIG 200-500 mg/dL High TRIG greater than 500 mg/dL Very highStandard traceable to the Center for Disease Conrtrol and Prevention (CDC) test method.Activated partial thromboplastin time (aPTT) in platelet poor plasma by coagulation aOrdered By: César Arreaga on 61-09-6068oOJA Coag (PPP) [Time]28.5 s25.1-36.5FUniversity Hospitals TriPoint Medical CenterComment on above:A hematocrit value greater than 55% may lead to inaccurate results in coagulation testing. Patients having hematocrit values >55% require a special collection tube for coagulation studies. Please contact the laboratory at [phone] for redraw instructions. Alanine aminotransferase [Enzymatic activity/volume] in Serum or PlasmaOrdered By: César Arreaga on 68-88-3704AUO [Catalytic activity/Vol]18 U/L7-52T[facility] HospitalAlbumin [Mass/volume] in Serum or Plasma by Bromocresol green (BCG) dye binding methoOrdered By: César Arreaga on 71-26-5501Yfccbin BCG dye [Mass/Vol]4.7 g/dL3.5-5.7FUniversity Hospitals TriPoint Medical CenterAlkaline phosphatase [Enzymatic activity/volume] in Serum or PlasmaOrdered By: César Arreaga on 66-16-8761ABQ [Catalytic activity/Vol]94 U/J08-593SacusqcjzToledo HospitalAspartate aminotransferase [Enzymatic activity/volume] in Serum or PlasmaOrdered By: César Arreaga on 77-04-4153ASS [Catalytic activity/Vol]15 U/L 13-39T[facility]edo HospitalBacterial blood cultureOrdered By: César Arreaga on 39-77-4907Fggvjgcj identified Cx Nom (Bld)NO GROWTH 5 DAYSToledo HospitalBasophils Auto (Bld) [#/Vol]Ordered By: César Arreaga on 53-62-3026Dxxkiulbq (Bld) [#/Vol]0.1 10*3/uL0.0-0.2FUniversity Hospitals TriPoint Medical CenterBasophils/100 WBC Auto (Bld)Ordered By: César Arreaga on 07-11-2023 Basophils/100 WBC (Bld)0.7 %.T[facility]edo HospitalBilirubin Test strip Ql (U)Ordered By: César Arreaga on 44-06-2673Yccaganbp Ql (U)Negative NegativeToledo HospitalBilirubin.direct [Mass/volume] in Serum or PlasmaOrdered By: César Arreaga on 31-40-9603Kegyzgghs.direct [Mass/Vol]0.10 mg/dL0.03-0.18FUniversity Hospitals TriPoint Medical CenterBilirubin.total [Mass/volume] in Serum or PlasmaOrdered By: César Arreaga on 13-34-1386Hjiunfirl [Mass/Vol]0.6 mg/dL0.3-1.0T[facility] HospitalCOVID CepheidOrdered By: César Arreaga on 36-07-5431LQVL-CoV-2 (COVID-19) Ab IA QlNegativeNegativeToledo HospitalComment on above:This is a duplicate Cepheid Xpert Xpress CoV-2/Flu/RSV Plus RNA by RT-PCR result to be used for statistical tracking purpose only.SARS-CoV-2 (COVID-19) RNA ANGÉLICA+probe Ql (Unsp spec)T[facility]edo HospitalColor Auto (U)Ordered By: César Arreaga on 08-01-5534Gggqj (U)YellowYellowToledo HospitalCreatine kinase [Enzymatic activity/volume] in Serum or PlasmaOrdered By: César Arreaga on 58-37-8862JO [Catalytic activity/Vol]69 U/M43-061KnkricinzToledo HospitalEosinophils Auto (Bld) [#/Vol]Ordered By: César Arreaga on 68-22-2822Xbybhofmkbr (Bld) [#/Vol] 0.1 10*3/uL0.0-0.45T[facility]edo HospitalEosinophils/100 WBC Auto (Bld)Ordered By: César Arreaga on 63-85-5534Jsruezesfkp/100 WBC (Bld)1.0 %. [facility] HospitalFolate [Mass/volume] in Serum or PlasmaOrdered By: Shaila Bowen on 28-07-0262Mjrzdz [Mass/Vol]20.1 ng/mL>5.9Toledo HospitalComment on above:Folate reference range: >5.9 ng/mlThe WHO technical consultation on folate and vitamin c90zyyhfjylkdqc has determined that folate concentrations lessthan 4 ng/ml are considered deficient.Globulin Calc (S) [Mass/Vol]Ordered By: César Arreaga on 36-26-9008Lfiwkqkk (S) [Mass/Vol] 3.1 g/dLToledo HospitalINR in Platelet poor plasma by Coagulation assayOrdered By: César Arreaga on 79-94-1850KGR Coag (PPP) [Relative time]0.9 {INR}[facility]edo HospitalComment on above:INR Therapeutic Range A) Pre- and Peroperative OAT started two weeks before surgery. NOT HIP SURGERY: 1.5 - 2.5 HIP SURGERY: 2 - 3B) Primary and secondary prevention of venous THROMBOSIS: 2 - 3C) Active venous thrombosis, pulmonary embolismand prevention of recurrent venous thrombosis: 2 - 3D) Prevention of arterial thromboembolismincluding patients with mechanical heart valves: 3 - 4.5Ketones Auto test strip (U) [Mass/Vol]Ordered By: César Arreaga on 98-54-9766Ljwerxi (U) [Mass/Vol]NegativeNegativeToledo HospitalLaboratory - Chemistry and Chemistry - challengeOrdered By: César Arreaga on 25-36-3686OA0 [Moles/Vol]20.4 mmol/L23.0-27.0[facility] HospitalHCO3 (Bld) [Moles/Vol]19.4 mmol/L23.0-29.0[facility] HospitalLactate [Moles/volume] in Serum or PlasmaOrdered By: César Arreaga on 49-74-8614Xrivqgp [Moles/Vol]1.7 mmol/L0.5-2.2FUniversity Hospitals TriPoint Medical CenterLymphocytes Auto (Bld) [#/Vol]Ordered By: César Arreaga on 74-17-9642Ywgfmhsvdna (Bld) [#/Vol]2.4 10*3/uL1.00-4.8[facility] HospitalLymphocytes/100 WBC Auto (Bld) Ordered By: César Arreaga on 75-09-7076Mhmyrhutzae/100 WBC (Bld)27.5 %.[facility] HospitalMonocyte distribution width [Entitic volume] in Blood by AutomatedOrdered By: César Arreaga on 73-70-1973Mhfigfqo distribution width Auto (Bld) [Entitic vol]16.92 %0.00-20.00T[facility] HospitalMonocytes Auto (Bld) [#/Vol]Ordered By: César Arreaga on 99-71-1012Hlnmkujxl (Bld) [#/Vol] 0.7 10*3/uL0.0-0.8[facility] HospitalMonocytes/100 WBC Auto (Bld) Ordered By: César Arreaga on 29-01-4123Wjjhsekfm/100 WBC (Bld)8.1 %.[facility] HospitalNatriuretic peptide B [Mass/Vol]Ordered By: César Arreaga on 18-63-2888Axwlktcsbfb peptide B (Bld) [Mass/Vol]10.0 pg/mL5-100T[facility]edo HospitalNeutrophils Auto (Bld) [#/Vol]Ordered By: César Arreaga on 96-06-7830Oywvqbxmars (Bld) [#/Vol]5.6 10*3/uL1.8-7.7FUniversity Hospitals TriPoint Medical CenterNeutrophils/100 WBC Auto (Bld)Ordered By: César Arreaga on 07-11-2023 Neutrophils/100 WBC (Bld)62.7 %.[facility] HospitalNitrite Test strip Ql (U)Ordered By: César Arreaga on 99-32-6217Cicytnl Ql (U)NegativeNegative [facility] HospitalNo Panel InformationOrdered By: César Arreaga on 24-16-3826Avalxrgs Blood Base Excess-4.6 mmol/L-3.0-3.0[facility] HospitalArterial Blood Oxygen Content8.7 mmol/L6.6-9.7FUniversity Hospitals TriPoint Medical CenterArterial Blood Oxygen Evwojwypya01.7 %95.0-100.0[facility] HospitalArterial Blood Partial Pressure CO233.2 mm[Hg]35.0-45.0[facility] HospitalArterial Blood Partial Pressure O277.1 mm[Hg]80.0-100.0 [facility] HospitalArterial Blood pH7.397.35-7.45[facility] HospitalBlood Gas Critical ValueSee commentToledo HospitalComment on above:Critical Value called on: 07/11/2023 at 18:36 Blood Gas Sample SiteLeft radialToledo HospitalFiO221 % [facility] HospitalNucleated erythrocytes [Presence] in Blood by Automated countOrdered By: César Arreaga on 83-16-0858Pbdbabsko RBC Auto Ql (Bld) 0.1 /100{WBC}0-0.5FUniversity Hospitals TriPoint Medical CenterProtein Auto test strip (U) [Mass/Vol]Ordered By: César Arreaga on 44-21-9195Npddatz (U) [Mass/Vol]Negative NegativeToledo HospitalProtein [Mass/volume] in Serum or PlasmaOrdered By: César Arreaga on 73-93-1148Ugorkdl [Mass/Vol]7.8 g/dL6.4-8.9 [facility] HospitalProthrombin time (PT)Ordered By: César Arreaga on 94-01-8056VU Coag (PPP) [Time]10.8 s9.0-12.9[facility] Comment on above:A hematocrit value greater than 55% may lead to inaccurate results in coagulation testing. Patientshaving hematocrit values >55% require a special collection tube for coagulation studies. Please contact the laboratory at [phone] for redraw instructions.Serum or plasma albumin/globulin mass ratioOrdered By: César Arreaga on 93-14-8094Flsigqs/Globulin [Mass ratio]1.5 {ratio}[facility]ultman Hospitalerum or plasma non-glucuronidated bilirubin measurement (mass/volume)Ordered By: César Arreaga on 07-11-2023 Bilirubin.indirect [Mass/Vol]0.5 mg/dLAultman Hospitalpecific gravity Auto test strip (U) [Rel density]Ordered By: César Arreaga on 07-11-2023 Specific gravity (U) [Rel density]1.0251.001-1.030T[facility] HospitalThyrotropin [Units/volume] in Serum or PlasmaOrdered By: Shaila Bowen on 04-62-9892DVQ Qn1.15 m[IU]/L0.45-5.33[facility] HospitalTroponin I.cardiac [Mass/volume] in Serum or Plasma by Detection limit <= 0.01 ng/Ordered By: César Arreaga on 38-98-0870Inxbgwrc I.cardiac DL <= 0.01 ng/mL [Mass/Vol]7.9 pg/mL0.0-20.0[facility] HospitalUrine clarity by refractometry automatedOrdered By: César Arreaga on 92-13-9139Ftcjohe Refractometry automated (U)ClearClearFUniversity Hospitals TriPoint Medical CenterUrine glucose measurement by automated test strip (mass/volume)Ordered By: César Arreaga on 83-37-4646Ccthcdk Auto test strip (U) [Mass/Vol]>=1000 mg/dLNormalToledo HospitalUrine hemoglobin detection by automated test stripOrdered By: César Arreaga on 51-74-4708Exvjmlvlkv Auto test strip Ql (U)NegativeNegativeToledo HospitalUrine leukocyte esterase detection by automated test stripOrdered By: César Arreaga on 27-69-1162Khnyauwhh esterase Auto test strip Ql (U)Negative NegativeToledo HospitalUrobilinogen Auto test strip (U) [Mass/Vol]Ordered By: César Arreaga on 43-14-1028Thxdvqrwiazy (U) [Mass/Vol]Normal mg/dLNormalToledo HospitalVitamin B12 ser/plasOrdered By: Shaila Bowen on 23-38-6652Yjmyswggu (Vitamin B12) [Mass/Vol]206 pg/mJ352-995 [facility] HospitalWBC Auto (Bld) [#/Vol]Ordered By: César Arreaga on 27-77-6860CRG (Bld) [#/Vol]8.9 10*3/uL4.1-10.5FUniversity Hospitals TriPoint Medical CenterpH Auto test strip (U)Ordered By: César Arreaga on 41-50-7151dY (U)5.5 [pH] 5.0-9.0[facility] HospitalActivated partial thromboplastin time (aPTT) in platelet poor plasma by coagulation aOrdered By: Mark Anthony Heath on 69-09-7536uPUE Coag (PPP) [Time]30.6 s25.1-36.5FUniversity Hospitals TriPoint Medical Center Basophils Auto (Bld) [#/Vol]Ordered By: Mark Anthony Heath on 75-82-8396Llbdlmvlk (Bld) [#/Vol]0.1 10*3/uL0.0-0.2FUniversity Hospitals TriPoint Medical CenterBasophils/100 WBC Auto (Bld)Ordered By: Mark Anthony Heath on 11-81-0481Efqtukznh/100 WBC (Bld)0.5 % .[facility] HospitalCalcium [Mass/volume] in Serum or Plasma Ordered By: Mark Anthony Heath on 62-20-6687Ovbsnoe [Mass/Vol]9.6 mg/dL8.6-10.3 [facility] HospitalCarbon dioxide, total [Moles/volume] in Serum or PlasmaOrdered By: Mark Anthony Heath on 55-62-0757LK7 [Moles/Vol]22.5 mmol/L 21.0-31.0[facility] HospitalChloride [Moles/volume] in Serum or PlasmaOrdered By: Mark Anthony Heath on 43-31-6436Etvlgagt [Moles/Vol]106 mmol/L98-107 [facility] HospitalCreatinine [Mass/volume] in Serum or Plasma Ordered By: Mark Anthony Heath on 90-22-9459Ikyzkdaokn [Mass/Vol]1.52 mg/dL0.70-1.30 [facility] HospitalEosinophils Auto (Bld) [#/Vol]Ordered By: Mark Anthony Heath on 06-53-9083Vcjbztmhjad (Bld) [#/Vol]0.1 10*3/uL0.0-0.45[facility] HospitalEosinophils/100 WBC Auto (Bld)Ordered By: Mark Anthony Heath on 30-98-7389Wnxdyzkjctv/100 WBC (Bld)0.5 %.[facility] Erythrocyte distribution width Auto (RBC) [Ratio]Ordered By: Mark Anthony Heath on 25-79-5454Ihfafzgmxvm distribution width (RBC) [Ratio]13.8 %12.0-14.8[facility] HospitalGlucose [Mass/volume] in Serum or PlasmaOrdered By: Mark Anthony Heath on 96-74-2933Mllzmbx [Mass/Vol]185 mg/nW53-051TclseobhxToledo HospitalComment on above:ADA recommended reference rangeRandom Glucose Reference Range is dependent on time and content of last meal. Glucose of more than 200 mg/dL in a nonstressed, ambulatory subject supports the diagnosisof Diabetes Mellitus.Hematocrit Auto (Bld) [Volume fraction]Ordered By: Mark Anthony Heath on 96-61-0362Bzjrbpqjng (Bld) [Volume fraction]43.2 %38.8-50.0[facility] HospitalHemoglobin [Mass/volume] in BloodOrdered By: Mark Anthony Heath on 07-90-7947Ywzmhvcwof (Bld) [Mass/Vol]14.5 g/dL13.0-17.0[facility] HospitalINR in Platelet poor plasma by Coagulation assayOrdered By: Mark Anthony Heath on 01-59-1796DJH Coag (PPP) [Relative time]1.0 {INR}[facility] HospitalComment on above:INR Therapeutic Range A) Pre- and Peroperative OAT started two weeks before surgery. NOT HIP SURGERY: 1.5 - 2.5 HIP SURGERY: 2 - 3B) Primary and secondary prevention of venous THROMBOSIS: 2 - 3C) Active venous thrombosis, pulmonary embolismand prevention of recurrent venous thrombosis: 2 - 3D) Prevention of arterial thromboembolismincluding patients with mechanical heart valves: 3 - 4.5Laboratory - CoagulationOrdered By: Mark Anthony Heath on 46-36-9509XI Coag (PPP) [Time]11.3 s9.0-12.9[facility] HospitalLeukocytes [#/volume] corrected for nucleated erythrocytes in Blood by Automated counOrdered By: Mark Anthony Heath on 27-86-2821DDT corrected for nucl RBC Auto (Bld) [#/Vol]12.0 10*3/uL4.1-10.5FUniversity Hospitals TriPoint Medical CenterLymphocytes Auto (Bld) [#/Vol]Ordered By: Mark Anthony Heath on 49-05-6780Dmyevrjumym (Bld) [#/Vol]2.2 10*3/uL1.00-4.8[facility] HospitalLymphocytes/100 WBC Auto (Bld)Ordered By: Mark Anthony Heath on 06-07-2023 Lymphocytes/100 WBC (Bld)18.4 %.[facility] HospitalH Auto (RBC) [Entitic mass]Ordered By: Mark Anthony Heath on 89-91-2269TNP (RBC) [Entitic mass]30.8 pg27.5-35.2FUniversity Hospitals TriPoint Medical CenterMCHC Auto (RBC) [Mass/Vol]Ordered By: Mark Anthony Heath on 27-02-6864WFDJ (RBC) [Mass/Vol]33.5 g/dL32.5-35.6FUniversity Hospitals TriPoint Medical CenterMCV Auto (RBC) [Entitic vol]Ordered By: Mark Anthony Heath on 54-24-3986ZVZ (RBC) [Entitic vol]92.0 fL83.5-101[facility] HospitalMonocytes Auto (Bld) [#/Vol]Ordered By: Mark Anthony Heath on 06-07-2023 Monocytes (Bld) [#/Vol]0.7 10*3/uL0.0-0.8[facility] Monocytes/100 WBC Auto (Bld)Ordered By: Mark Anthony Heath on 99-79-4290Aeoyobxbv/100 WBC (Bld)5.9 %.[facility] HospitalNeutrophils Auto (Bld) [#/Vol] Ordered By: Mark Anthony Heath on 29-88-2223Ivfcuvdtzgr (Bld) [#/Vol]9.0 10*3/uL 1.8-7.7FUniversity Hospitals TriPoint Medical CenterNeutrophils/100 WBC Auto (Bld)Ordered By: Mark Anthony Heath on 79-07-1914Xnwzlumjljn/100 WBC (Bld)74.7 %.[facility] HospitalNo Panel InformationOrdered By: Mark Anthony Heath on 06-07-2023 Estimated GFR (CKD-EPI)50.852 mL/MinToledo HospitalPharmacy Creatinine Clearance (ChemN/AFUniversity Hospitals TriPoint Medical CenterNucleated erythrocytes [Presence] in Blood by Automated countOrdered By: Mark Anthony Heath on 35-15-5656Kihthkapb RBC Auto Ql (Bld)0.1 /100{WBC}0-0.5FUniversity Hospitals TriPoint Medical CenterPlatelet mean volume Auto (Bld) [Entitic vol]Ordered By: Mark Anthony Heath on 15-14-2989Xqbwdjov mean volume (Bld) [Entitic vol]8.5 fL6.6-10.1 [facility] HospitalPlatelets Auto (Bld) [#/Vol]Ordered By: Mark Anthony Heath on 14-51-9879Uetpxtdtj (Bld) [#/Vol]232 10*3/nR657-237CakucpovgToledo HospitalPotassium [Moles/volume] in Serum or PlasmaOrdered By: Mark Anthony Heath on 19-98-8783Lqmbgrizw [Moles/Vol]4.5 mmol/L3.5-5.1FUniversity Hospitals TriPoint Medical CenterRBC Auto (Bld) [#/Vol]Ordered By: Mark Anthony Heath on 62-25-4641IFF (Bld) [#/Vol]4.70 10*6/uL3.90-5.60[facility] Hospitalerum or plasma anion gap determinationOrdered By: Mark Anthony Heath on 45-82-6399Ppomb gap [Moles/Vol]15.0 mmol/L6.0-15.0[facility]ult[facility] Hospitalodium [Moles/volume] in Serum or PlasmaOrdered By: Mark Anthony Heath on 49-47-4404Tlessf [Moles/Vol]139 mmol/Q868-888JetnzigxfToledo HospitalUrea nitrogen [Mass/volume] in Serum or PlasmaOrdered By: Mark Anthony Kumar on 45-02-4628Xujw nitrogen [Mass/Vol]16 mg/dL7-25T[facility] HospitalWBC Auto (Bld) [#/Vol]Ordered By: Mark Anthony Kumar on 61-23-9315AGL (Bld) [#/Vol]12.0 10*3/uL 4.1-10.5FUniversity Hospitals TriPoint Medical CenterOffice Visit (Cardiology)on 04-11-2023 Follow-up visitDiagnoses/Problems Assessed Chest pain (786.50) (R07.9) Normal cardiac stress test (V72.85) HTN (hypertension) (401.9) (I10) Mixed hyperlipidemia (272.2) (E78.2) Diabetes (250.00) (E11.9) Former smoker (V15.82) (Z87.891) Quit 1999 Class 1 obesity with body mass index (BMI) of 31.0 to 31.9 in adult (278.00,V85.31) (E66.9,Z68.31) Orders Class 1 obesity with body mass index (BMI) of 31.0 to 31.9 in adult Healthy Weight Tips; Status:Complete; Done: 25Sjv9358 Some eating tips that can help you lose weight.; Status:Complete; Done: 82Tfh1085 SocHx: Former smoker Tobacco Use Screening; Status:Complete; Done: 64Dlv5546 Patient Instructions Please bring all medicines, vitamins, [...] ROD MATHIAS is being seen for mpx results[place] [place]. Patient is a 62-year-old gentleman here for follow-up following recent stress testing. He was seen in consultation in the hospital in January, ruled out for AL, had low CATHERINE risk score; has underlying [...] Recorded: 11Apr2023 11:24AM Heart Rate66, L Radial Arvhdtzs323, LUE, Sitting Gfepehirh31, LUE, Sitting Height5 ft 10.5 in Yqwjzi890 lb BMI Oipmpqhcss10.4 kg/m2 BSA Calculated2.19 Tobacco Useb) No PHQ-2 #1. Over the last 2 weeks have you felt down, depressed or hopeless? (If yes, answer PHQ-9 below)No PHQ-2 #2. Over the last 2 weeks have you felt little interest or pleasure in doing things? (If yes,answer PHQ-9 below)No Falls Screening (Age 18+)a) No [...] DO; Apr 11 2023 12:32PM EST (Author) [facility] TouchworksTobacco Screening.on 18-31-2680Uooot depression screening assessmentNoUniversal [facility] [facility] Work Phone: Fall risk assessmenta) No falls within the last year [facility] 250 DO Work Phone: Tobacco use status CPHSb) NoMSt. [facility] [place] [facility] Work Phone: NO CARDIAC STRESS/REST INJECTIONon 15-04-7403KFL CARDIAC STRESS/REST INJECTIONMRN: [id number] Patient Name: ROD CUELLAR STUDY: MYOCARDIAL PERFUSION STRESS TEST WITH EXERCISE CONVERTED TO LEXISCAN Performing facility: [facility], [address] [place] [address] Provider: Teresa Jefferson DO, FACC PCP: Dr. Zi Hernandez Supervising provider: Joann Hopson MD INDICATION: Chest Pain; Diabetes HTN Hyperlipidemia HISTORY: Gender: M; Age: 62 y/o ; Height: 0 cm; Weight: 0 kg. High Cholesterol; HTN; Diabetes; Chest Pain; Currently smoking. COMPARISON: No comparison. ACCESSION NUMBER(S): [id number]; [id number]; [id number] ORDERING CLINICIAN: DEMARCO JEFFERSON TECHNIQUE: TWO DAY protocol. Stress injection: Date: 02-13-23, 35.6 mCi of Myoview IV at 20 seconds after rapid injection of Lexiscan. Rest injection: Date: 4-27-23, 35.6 mCi of Myoview IV at rest. [...] are available for comparison. Electronically signed by: Brittany ROCKTampa Shriners HospitalNo Panel Informationon 34-04-6148CkbyugUW-[facility] 250 DO Work Phone: Basophils Auto (Bld) [#/Vol]Ordered By: Lilia Bowers on 58-95-8078Xpxdtmqkh (Bld) [#/Vol]0.0 10*3/uL0.0-0.2FUniversity Hospitals TriPoint Medical CenterBasophils/100 WBC Auto (Bld)Ordered By: Lilia Bowers on 06-68-7416Tykokthnx/100 WBC (Bld)0.5 %.[facility] Calcium [Mass/volume] in Serum or PlasmaOrdered By: Lilia Bowers on 25-36-3682Jkuwwsz [Mass/Vol]8.4 mg/dL8.6-10.3FUniversity Hospitals TriPoint Medical Center Carbon dioxide, total [Moles/volume] in Serum or PlasmaOrdered By: Lilia Bowers on 44-72-6531PZ2 [Moles/Vol]21.0 mmol/L21.0-31.0[facility] HospitalChloride [Moles/volume] in Serum or PlasmaOrdered By: Lilia Bowers on 57-36-6944Zxuulxwv [Moles/Vol]110 mmol/F37-880CagqrthmaToledo HospitalCholesterol [Mass/volume] in Serum or PlasmaOrdered By: Liila Bowers on 62-64-6948Wiwecjqsquy [Mass/Vol]146 mg/rA512-431OymrmryjdToledo HospitalComment on above:Chol less than 200 mg/dl low riskChol 201-239 mg/dl borderline riskChol 240 mg/dl and greater high riskCholesterol in LDL Calc [Mass/Vol]Ordered By: Lilia Bowers on 22-59-2567Hvmsizznwnk in LDL [Mass/Vol]66 mg/dL0-100T[facility] HospitalComment on above:LDL ATP III CLASSIFICATIONLDL less than 100 mg/dL OptimalLDL 100-129 mg/dL Near or above jqfacxyIUJ714-007 mg/dL Borderline highLDL 160-189 mg/dL HighLDL greater than 189 mg/dL Very highCholesterol in VLDL Calc [Mass/Vol]Ordered By: Lilia Hoe on 92-97-8322Dhpaoflebha in VLDL [Mass/Vol]43 mg/dLToledo HospitalCreatinine [Mass/volume] in Serum or PlasmaOrdered By: Lilia Bowers on 31-49-7634Jjzahjhzbi [Mass/Vol]1.43 mg/dL0.70-1.30T[facility] HospitalEosinophils Auto (Bld) [#/Vol]Ordered By: Lilia Bowers on 24-32-7203Wmjlsdysiho (Bld) [#/Vol]0.1 10*3/uL0.0-0.45T[facility] HospitalEosinophils/100 WBC Auto (Bld)Ordered By: Lilia Bowers on 87-41-8830Ldlektthruo/100 WBC (Bld)1.0 %.[facility] Erythrocyte distribution width Auto (RBC) [Ratio]Ordered By: Lilia Bowers on 87-44-1488Mzoicpxbpgp distribution width (RBC) [Ratio]14.0 %12.0-14.8[facility] HospitalGlucose Glucometer (BldC) [Mass/Vol]Ordered By: Lilia Bowers on 27-71-3159Masyyvk [Mass/Vol]136 mg/dLToledo HospitalComment on above:Random Glucose Reference Range is dependent on time and content of last meal. Glucose of more than 200 mg/dL in a nonstressed, ambulatory subject supports the diagnosis of Diabetes Mellitus.Glucose [Mass/volume] in Serum or PlasmaOrdered By: Lilia Bowers on 60-61-8218Cuvgzld [Mass/Vol]123 mg/gZ63-855ElkblpjymToledo HospitalComment on above:ADA recommended reference rangeRandom Glucose Reference Range is dependent on time and content of last meal. Glucose of more than 200 mg/dL in a nonstressed, ambulatory subject supports the diagnosisof Diabetes Mellitus.Hematocrit Auto (Bld) [Volume fraction]Ordered By: Lilia Bowers on 22-65-2779Osdjevrzgr (Bld) [Volume fraction]40.0 %38.8-50.0[facility] HospitalHemoglobin [Mass/volume] in BloodOrdered By: Lilia Bowers on 93-56-3863Wlxaoytvfx (Bld) [Mass/Vol]13.3 g/dL13.0-17.0[facility] HospitalLeukocytes [#/volume] corrected for nucleated erythrocytes in Blood by Automated coun Ordered By: Lilia Bowers on 89-95-1977HSD corrected for nucl RBC Auto (Bld) [#/Vol]8.4 10*3/uL4.1-10.5FUniversity Hospitals TriPoint Medical CenterLymphocytes Auto (Bld) [#/Vol]Ordered By: Lilia Bowers on 02-77-0365Ifnohkjbzrg (Bld) [#/Vol] 3.4 10*3/uL1.00-4.8[facility] HospitalLymphocytes/100 WBC Auto (Bld)Ordered By: Lilia Bowers on 61-22-5337Ttujaqnmhzn/100 WBC (Bld)40.8 %. [facility] HospitalMCH Auto (RBC) [Entitic mass]Ordered By: Lilia Bowers on 51-17-0928DXT (RBC) [Entitic mass]30.0 pg27.5-35.2FUniversity Hospitals TriPoint Medical CenterMCHC Auto (RBC) [Mass/Vol]Ordered By: Lilia Bowers on 04-26-7881XEUU (RBC) [Mass/Vol]33.3 g/dL32.5-35.6FUniversity Hospitals TriPoint Medical CenterMCV Auto (RBC) [Entitic vol]Ordered By: Lilia Bowers on 72-15-2479NQY (RBC) [Entitic vol]90.1 fL83.5-101T[facility] HospitalMonocytes Auto (Bld) [#/Vol]Ordered By: Lilia Bowers on 08-00-1047Opkbvfpjr (Bld) [#/Vol]0.8 10*3/uL0.0-0.8[facility] HospitalMonocytes/100 WBC Auto (Bld)Ordered By: Lilia Bowers on 78-32-9319Bpucqesqs/100 WBC (Bld)9.0 %. [facility] HospitalNeutrophils Auto (Bld) [#/Vol]Ordered By: Lilia Bowers on 40-21-2190Fmxueqosfwi (Bld) [#/Vol]4.1 10*3/uL1.8-7.7FUniversity Hospitals TriPoint Medical CenterNeutrophils/100 WBC Auto (Bld)Ordered By: Lilia Bowers on 56-85-5164Wjslomjtbyj/100 WBC (Bld)48.7 %.[facility] No Panel InformationOrdered By: Lilia Bowers on 66-47-4934Twakqhc Glucose CommentGlu2: cleaned meterToledo HospitalEstimated GFR (CKD-EPI)54.715 mL/MinToledo HospitalPharmacy Creatinine Clearance (Chem63.51T[facility]edo HospitalNucleated erythrocytes [Presence] in Blood by Automated countOrdered By: Lilia Bowers on 02-06-2023 Nucleated RBC Auto Ql (Bld)0.1 /100{WBC}0-0.5FUniversity Hospitals TriPoint Medical Center Platelet mean volume Auto (Bld) [Entitic vol]Ordered By: Lilia Bowers on 36-82-2235Bqksvetu mean volume (Bld) [Entitic vol]8.2 fL6.6-10.1FUniversity Hospitals TriPoint Medical CenterPlatelets Auto (Bld) [#/Vol]Ordered By: Lilia Bowers on 71-76-4972Mwyzxfehl (Bld) [#/Vol]207 10*3/sC825-196NmgqiougzToledo HospitalPotassium [Moles/volume] in Serum or PlasmaOrdered By: Lilia Bowers on 25-93-6268Otbjbubus [Moles/Vol]4.0 mmol/L3.5-5.1FUniversity Hospitals TriPoint Medical CenterRBC Auto (Bld) [#/Vol]Ordered By: Lilia Bowers on 84-51-6574KIL (Bld) [#/Vol]4.44 10*6/uL3.90-5.60[facility]ultman Hospitalerum or plasma anion gap determinationOrdered By: Lilia Bowers on 50-15-9123Qhain gap [Moles/Vol][facility] CenterComment on above:Test not performedSerum or plasma high density lipoprotein (HDL) cholesterol measurement Ordered By: Lilia Bowers on 37-19-3398Xzxzmpmuwbt in HDL [Mass/Vol]36 mg/dL 29-71T[facility] HospitalComment on above:HDL CHOL ATP-III CLASSIFICATION Cardiovascular RiskHDL > or equal to 60 mg/dL LOWHDL < 40 mg/dL HIGHSerum or plasma total cholesterol/high density lipoprotein (HDL) cholesterol mass ratOrdered By: Liila Bowers on 34-78-7452Knijqhvortt.total/Cholesterol in HDL [Mass ratio]4.1 {ratio}<5.0[facility]ultman Hospitalodium [Moles/volume] in Serum or PlasmaOrdered By: Lilia Bowers on 65-53-8245Kftcod [Moles/Vol]138 mmol/Y591-065InunyzfvtToledo HospitalTriglyceride [Mass/volume] in Serum or PlasmaOrdered By: Lilia Bowers on 02-06-2023 Triglyceride [Mass/Vol]218 mg/dL0-149T[facility] HospitalComment on above:TRIG ATP III CLASSIFICATIONTRIG less than 150 mg/dL NormalTRIG 150-199 mg/dL Borderline highTRIG 200-500 mg/dL High TRIG greater than 500 mg/dL Very highStandard traceable to the Center for Disease Conrtrol and Prevention (CDC) test method.Troponin I.cardiac [Mass/volume] in Serum or Plasma by Detection limit <= 0.01 ng/Ordered By: Lilia Bowers on 56-79-7196Fpfyzvjn I.cardiac DL <= 0.01 ng/mL [Mass/Vol]5.6 pg/mL0.0-20.0[facility] HospitalUrea nitrogen [Mass/volume] in Serum or PlasmaOrdered By: Lilia Bowers on 43-41-5993Frwm nitrogen [Mass/Vol]15 mg/dL7-25[facility] WBC Auto (Bld) [#/Vol]Ordered By: Lilia Bowers on 94-75-8078GNF (Bld) [#/Vol] 8.4 10*3/uL4.1-10.5FUniversity Hospitals TriPoint Medical CenterAlanine aminotransferase [Enzymatic activity/volume] in Serum or PlasmaOrdered By: Deniz Lacey on 32-52-5831LIZ [Catalytic activity/Vol]18 U/L7-52T[facility] HospitalAlbumin [Mass/volume] in Serum or Plasma by Bromocresol green (BCG) dye binding methoOrdered By: Deniz Lacey on 16-40-7120Fqiguwa BCG dye [Mass/Vol]4.9 g/dL3.5-5.7FUniversity Hospitals TriPoint Medical CenterAlkaline phosphatase [Enzymatic activity/volume] in Serum or PlasmaOrdered By: Deniz Lacey on 26-40-9457DXM [Catalytic activity/Vol]72 U/T45-747EbiboufswToledo HospitalAspartate aminotransferase [Enzymatic activity/volume] in Serum or PlasmaOrdered By: Deniz Lacey on 96-04-3724STS [Catalytic activity/Vol]16 U/F15-70MuhljtlyhToledo HospitalBilirubin.total [Mass/volume] in Serum or PlasmaOrdered By: Deniz Lacey on 65-11-5008Ozfflwycs [Mass/Vol]0.9 mg/dL0.3-1.0[facility] HospitalCreatine kinase [Enzymatic activity/volume] in Serum or Plasma Ordered By: Deniz Lacey on 42-01-7687ZW [Catalytic activity/Vol]64 U/L30-223 [facility] HospitalGlobulin Calc (S) [Mass/Vol]Ordered By: Deniz Lacey on 31-94-8770Rqblblkb (S) [Mass/Vol]3.2 g/dLToledo HospitalMagnesium [Mass/volume] in Serum or PlasmaOrdered By: Lilia Bowers on 38-78-9259Goikrwfdr [Mass/Vol]1.9 mg/dL1.9-2.7FUniversity Hospitals TriPoint Medical Center Monocyte distribution width [Entitic volume] in Blood by AutomatedOrdered By: Deniz Lacey on 09-00-6479Fjgqsdve distribution width Auto (Bld) [Entitic vol] 20.55 %0.00-20.00[facility] HospitalComment on above:For adults in ED, MDW > 20.0 may be associated with a higher risk of sepsis during the first 12 hrs of hospital admissionNatriuretic peptide B [Mass/Vol]Ordered By: Deniz Lacey on 44-95-3134Phpyqsfprld peptide B (Bld) [Mass/Vol]15.0 pg/mL5-100 [facility] HospitalProtein [Mass/volume] in Serum or PlasmaOrdered By: Deniz Lacey on 95-43-5507Gwbqzvf [Mass/Vol]8.1 g/dL6.4-8.9Aultman Hospitalerum or plasma albumin/globulin mass ratioOrdered By: Deniz Lacey on 32-52-8911Jcotgmx/Globulin [Mass ratio]1.5 {ratio}Toledo HospitalXR Spine Lumbar 4+ Views*on [id number] Spine Lumbar 4+ Views*HISTORY: Low back pain with radiculopathy. COMPARISON: None [...] and signed by Ganga Olsen on 11/02/2022 1158NormalNorthu hu kam memorial hospitaln [facility] SpecialistGlucose mean value [Mass/volume] in Blood Estimated from glycated hemoglobinOrdered By: Terell Amor on [id number] glucose Estimated from glycated hemoglobin (Bld) [Mass/Vol]194 mg/dLToledo HospitalHemoglobin A1c percentageOrdered By: Terell Amor on 10-08-2022 HbA1c (Bld) [Mass fraction]8.4 %4.3-5.6FUniversity Hospitals TriPoint Medical CenterComment on above:Increased risk for diabetes: 5.7 - 6.4diabetes: >6.4glycemic control for adults with diabetes: <7.0Basophils Auto (Bld) [#/Vol]Ordered By: Pam Singh on 98-17-6474Irgcodfft (Bld) [#/Vol]0.0 10*3/uL0.0-0.2FUniversity Hospitals TriPoint Medical CenterBasophils/100 WBC Auto (Bld)Ordered By: Pam Singh on 10-03-2022 Basophils/100 WBC (Bld)0.3 %.[facility] CenterCreatinine and Glomerular filtration rate.predicted panel (S/P/Bld)Ordered By: Pam Singh on 40-73-9637Fnsjyniofu [Mass/Vol]1.48 mg/dL0.64-1.27[facility] HospitalEosinophils Auto (Bld) [#/Vol]Ordered By: Pam Singh on 10-03-2022 Eosinophils (Bld) [#/Vol]0.2 10*3/uL0.0-0.45[facility] Eosinophils/100 WBC Auto (Bld)Ordered By: Pam Singh on 10-03-2022 Eosinophils/100 WBC (Bld)1.5 %.[facility] HospitalErythrocyte distribution width Auto (RBC) [Ratio]Ordered By: Pam Singh on 10-03-2022 Erythrocyte distribution width (RBC) [Ratio]14.8 %12.0-14.8[facility] HospitalEstimated glomerular filtration rate (GFR) non- Ordered By: Pam Singh on 09-86-3430LHL/1.73 sq M.predicted among non-blacks MDRD (S/P/Bld) [Vol rate/Area]48 mL/MinToledo HospitalGlucose Glucometer (BldC) [Mass/Vol]Ordered By: Shaila Bowen on 73-33-7390Jjrdbnt [Mass/Vol]171 mg/dLToledo HospitalComment on above:Random Glucose Reference Range is dependent on time and content of last meal. Glucose of more than 200 mg/dL in a nonstressed, ambulatory subject supports the diagnosis of Diabetes Mellitus.Hematocrit Auto (Bld) [Volume fraction]Ordered By: Pam Singh on 85-66-7110Gwljzlijga (Bld) [Volume fraction]42.1 %38.8-50.0 [facility] HospitalHemoglobin [Mass/volume] in BloodOrdered By: Pam Singh on 92-86-3277Mntlhbbces (Bld) [Mass/Vol]14.2 g/dL13.0-17.0[facility] HospitalLeukocytes [#/volume] corrected for nucleated erythrocytes in Blood by Automated counOrdered By: Pam Singh on 45-18-0113ZRL corrected for nucl RBC Auto (Bld) [#/Vol]10.1 10*3/uL4.1-10.5FUniversity Hospitals TriPoint Medical CenterLymphocytes Auto (Bld) [#/Vol]Ordered By: Pam Singh on 55-36-5421Bmyaafmclnt (Bld) [#/Vol]2.9 10*3/uL1.00-4.8[facility] HospitalLymphocytes/100 WBC Auto (Bld)Ordered By: Pam Singh on 10-03-2022 Lymphocytes/100 WBC (Bld)28.4 %.[facility]H Auto (RBC) [Entitic mass]Ordered By: Pam Singh on 82-11-1923JRQ (RBC) [Entitic mass]30.3 pg27.5-35.2FUniversity Hospitals TriPoint Medical CenterMCHC Auto (RBC) [Mass/Vol]Ordered By: Pam Singh on 18-38-0020HDXH (RBC) [Mass/Vol]33.6 g/dL32.5-35.6FUniversity Hospitals TriPoint Medical CenterMCV Auto (RBC) [Entitic vol]Ordered By: Pam Singh on 26-20-5567VGE (RBC) [Entitic vol]90.0 fL83.5-101[facility] HospitalMonocytes Auto (Bld) [#/Vol]Ordered By: Pam Singh on 12-72-2946Xmyuooexq (Bld) [#/Vol]0.9 10*3/uL0.0-0.8[facility] HospitalMonocytes/100 WBC Auto (Bld)Ordered By: Pma Singh on 56-82-4599Pjuxluulf/100 WBC (Bld)8.6 %. [facility] HospitalNeutrophils Auto (Bld) [#/Vol]Ordered By: Pam Singh on 72-03-7178Rnuilledabe (Bld) [#/Vol]6.2 10*3/uL1.8-7.7FUniversity Hospitals TriPoint Medical CenterNeutrophils/100 WBC Auto (Bld)Ordered By: Pam Singh on 82-49-2049Utcacjewqla/100 WBC (Bld)61.2 %.[facility] HospitalNo Panel InformationOrdered By: Pam Singh on 08-20-9876Lzdqkgdxw GFR ()58 mL/MinToledo HospitalComment on above:GFR estimated reference range: According to KDOQI guidelines, <60 ml/min/1.73m2 is sufficient todiagnose a patient with chronic kidney disease.Pharmacy Creatinine Clearance (Chem61.84[facility] HospitalNucleated erythrocytes [Presence] in Blood by Automated countOrdered By: Pam Singh on 10-03-2022 Nucleated RBC Auto Ql (Bld)0.2 /100{WBC}0-0.5FUniversity Hospitals TriPoint Medical Center Platelet mean volume Auto (Bld) [Entitic vol]Ordered By: Pam Singh on 95-57-7932Srckiklo mean volume (Bld) [Entitic vol]8.5 fL6.6-10.1FUniversity Hospitals TriPoint Medical CenterPlatelets Auto (Bld) [#/Vol]Ordered By: Pam Singh on 71-17-0431Yvlocgwvq (Bld) [#/Vol]249 10*3/nG953-081QevtxicqtToledo HospitalRBC Auto (Bld) [#/Vol]Ordered By: Pam Singh on 07-57-6578HJL (Bld) [#/Vol]4.68 10*6/uL3.90-5.60[facility] Hospitalerum or plasma anion gap determinationOrdered By: Pam Singh on 78-89-7653Iibow gap [Moles/Vol]10.8 mmol/L6.0-15.0[facility] Hospitalerum or plasma calcium measurement (mass/volume)Ordered By: Pam Singh on 88-31-8352Cwfgtzz [Mass/Vol]9.2 mg/dL8.2-10.2FCorey Hospitalerum or plasma chloride measurement (moles/volume)Ordered By: Pam Singh on 32-04-0311Mpafewun [Moles/Vol]108 mmol/E42-506IloxscsoeAultman Hospitalerum or plasma glucose measurement (mass/volume)Ordered By: Pam Singh on 41-67-1431Fzwnxxt [Mass/Vol]152 mg/xX69-673ClepazzeaToledo HospitalComment on above:ADA recommended reference rangeRandom Glucose Reference Range is dependent on time and content of last meal. Glucose of more than 200 mg/dL in a nonstressed, ambulatory subject supports the diagnosisof Diabetes Mellitus.Serum or plasma potassium measurement (moles/volume)Ordered By: Pam Singh on 10-03-2022 Potassium [Moles/Vol]4.0 mmol/L3.5-5.1FCorey Hospitalerum or plasma sodium measurement (moles/volume)Ordered By: Pam Singh on 10-03-2022 Sodium [Moles/Vol]136 mmol/S377-822SxupfzczaAultman Hospitalerum or plasma total carbon dioxide measurement (moles/volume)Ordered By: Pam iSngh on 99-33-2045FC3 [Moles/Vol]21.2 mmol/L22.0-30.0[facility] Serum or plasma urea nitrogen measurement (mass/volume)Ordered By: Pam Singh on 68-33-8287Wfni nitrogen [Mass/Vol]23 mg/dL9-23[facility] HospitalUrine culture routineOrdered By: Spike Estrada on 48-39-2625Mxyhgfuo identified Cx Nom (U)No Growth 2 DaysToledo HospitalWBC Auto (Bld) [#/Vol]Ordered By: Pam Singh on 76-93-1286BPN (Bld) [#/Vol]10.1 10*3/uL 4.1-10.5FUniversity Hospitals TriPoint Medical CenterCholesterol [Mass/volume] in Serum or PlasmaOrdered By: Pam Singh on 05-88-5939Rkynhtbesab [Mass/Vol]156 mg/dL 140-200T[facility] HospitalComment on above:Chol less than 200 mg/dl low riskChol 201-239 mg/dl borderline riskChol 240 mg/dl and greater high riskCholesterol in LDL Calc [Mass/Vol]Ordered By: Pam Singh on 10-02-2022 Cholesterol in LDL [Mass/Vol]78 mg/dL0-100[facility] Comment on above:LDL ATP III CLASSIFICATIONLDL less than 100 mg/dL OptimalLDL 100-129 mg/dL Near or above icgvfmrTTA678-801 mg/dL Borderline highLDL 160-189 mg/dL HighLDL greater than 189 mg/dL Very highCholesterol in VLDL Calc [Mass/Vol]Ordered By: Pam Singh on 32-38-7891Piotrqhwdsk in VLDL [Mass/Vol]37 mg/dLToledo HospitalGlucose Glucometer (BldC) [Mass/Vol] Ordered By: Shaila Bowen on 78-57-4968Dxfiniy [Mass/Vol]122 mg/dLToledo HospitalComment on above:Random Glucose Reference Range is dependent on time and content of last meal. Glucose of more than 200 mg/dL in a nonstressed, ambulatory subject supports the diagnosis of Diabetes Mellitus. Serum or plasma high density lipoprotein (HDL) cholesterol measurementOrdered By: Pam Singh on 51-63-7963Eqyujhvoisl in HDL [Mass/Vol]41 mg/yW71-98IhfdwplorToledo HospitalComment on above:HDL CHOL ATP-III CLASSIFICATION Cardiovascular RiskHDL > or equal to 60 mg/dL LOWHDL < 40 mg/dL HIGHSerum or plasma total cholesterol/high density lipoprotein (HDL) cholesterol mass rat Ordered By: Pam Singh on 86-19-1370Aayvzjzwvkp.total/Cholesterol in HDL [Mass ratio]3.8 {ratio}<5.0[facility] HospitalTriglyceride [Mass/volume] in Serum or PlasmaOrdered By: Pam Singh on 61-11-6621Dvnoiutvmeza [Mass/Vol] 187 mg/wM44-962BkuarriwgToledo HospitalComment on above:TRIG ATP III CLASSIFICATIONTRIG less than 150 mg/dL NormalTRIG 150-199 mg/dL Borderline highTRIG 200-500 mg/dL High TRIG greater than 500 mg/dL Very highStandard traceable to the Center for Disease Conrtrol and Prevention (CDC) test method. Troponin I.cardiac [Mass/volume] in Serum or Plasma by High sensitivity method Ordered By: Shaila Bowen on 35-15-0264Gfouctnu I.cardiac High sensitivity method [Mass/Vol]6 pg/mL0-20[facility] HospitalAmphetamine Screen Ql (U)Ordered By: Spike Estrada on 07-99-1245Vxjdeihcwysr Ql (U)NegativeNegative [facility] HospitalAutomated erythrocytes count in urine sediment (number/area)Ordered By: Spike Estrada on 18-62-2131UEA Auto (Urine sed) [#/Area]None seen [HPF]0-4FUniversity Hospitals TriPoint Medical CenterAutomated leukocytes count in urine sediment (number/area)Ordered By: Spike Estrada on 05-64-0938VVF Auto (Urine sed) [#/Area]0-1 [HPF]0-4FUniversity Hospitals TriPoint Medical Center Barbiturates [Presence] in UrineOrdered By: Spike Estrada on 10-01-2022 Barbiturates Ql (U)NegativeNegativeToledo HospitalBasophils Auto (Bld) [#/Vol]Ordered By: Spike Estrada on 44-09-2611Vjluhikbz (Bld) [#/Vol] 0.1 10*3/uL0.0-0.2FUniversity Hospitals TriPoint Medical CenterBasophils/100 WBC Auto (Bld) Ordered By: Spike Estrada on 17-17-1286Xpczvhxed/100 WBC (Bld)0.6 %.[facility] HospitalBenzodiazepines [Presence] in UrineOrdered By: Spike Estrada on 48-55-2580Rmllsczrrpnlhxq Ql (U)PositiveNegBarney Children's Medical CenterBilirubin Test strip Ql (U)Ordered By: Spike Estrada on 10-01-2022 Bilirubin Ql (U)NegativeNegBarney Children's Medical CenterBody fluid albumin measurement (mass/volume)Ordered By: Spike Estrada on 76-72-3208Wvwszhj (Body fld) [Mass/Vol]4.3 g/dL3.2-5.5FUniversity Hospitals TriPoint Medical CenterCOVID CepheidOrdered By: Spike Estrada on 76-75-9641BJLU-CoV-2 (COVID-19) Ab IA Ql NegativeNegativeToledo HospitalComment on above:This is a duplicate Cepheid Xpert Xpress CoV-2/Flu/RSV Plus RNA by RT-PCR result to be used for statistical tracking purpose only.SARS-CoV-2 (COVID-19) RNA ANGÉLICA+probe Ql (Unsp spec)[facility] HospitalARS-CoV-2 (COVID-19) RNA ANGÉLICA+probe Ql (Unsp spec)[facility] HospitalCannabinoids [Presence] in Urine by Screen methodOrdered By: Spike Estrada on 70-03-9641Imwoicedxuxt Screen Ql (U)NegativeNegativeToledo HospitalComment on above: These are unconfirmed results and should not be used for legal purposes. Drug Cut-Off Concentration: AMPH 1000 ng/mL CAMI 200 ng/mL AAMIR 200 ng/mL COCM 300 ng/mL OP 300 ng/mL PCP 25 ng/mL THC 20 ng/mLColor Auto (U)Ordered By: Spike Estrada on 32-50-1067Vvrga (U)YellowYellowToledo Hospital Creatinine and Glomerular filtration rate.predicted panel (S/P/Bld)Ordered By: Spike Estrada on 75-03-8841Uyrlxhxsrs [Mass/Vol]1.56 mg/dL0.64-1.27[facility] HospitalEosinophils Auto (Bld) [#/Vol]Ordered By: Spike Estrada on 42-83-0034Tqydhijratk (Bld) [#/Vol]0.1 10*3/uL0.0-0.45[facility] HospitalEosinophils/100 WBC Auto (Bld)Ordered By: Spike Estrada on 63-98-3687Esbemsfyegb/100 WBC (Bld)0.4 %.[facility] Erythrocyte distribution width Auto (RBC) [Ratio]Ordered By: Spike Estrada on 62-50-6018Vjemnvkebsw distribution width (RBC) [Ratio]15.2 %12.0-14.8[facility] HospitalEstimated glomerular filtration rate (GFR) non- AmericanOrdered By: Spike Estrada on 15-95-1284TWH/1.73 sq M.predicted among non-blacks MDRD (S/P/Bld) [Vol rate/Area]45 mL/MinToledo HospitalFolate [Mass/volume] in Serum or PlasmaOrdered By: Shaila Bowen on 81-11-6173Kytpji [Mass/Vol]ng/mL>5.9[facility] HospitalComment on above:Folate reference range: >5.9 ng/mlThe WHO technical consultation on folate and vitamin x44xxcwpfulcvel has determined that folate concentrations lessthan 4 ng/ml are considered deficient.Globulin Calc (S) [Mass/Vol]Ordered By: Spike Estrada on 95-17-3934Fimmbnxs (S) [Mass/Vol]4.4 g/dLToledo HospitalHematocrit Auto (Bld) [Volume fraction]Ordered By: Spike Estrada on 84-67-4168Rdthsfnqsn (Bld) [Volume fraction]44.6 %38.8-50.0[facility] HospitalHemoglobin [Mass/volume] in BloodOrdered By: Spike Estrada on 30-76-6701Sdgglnaygq (Bld) [Mass/Vol]14.6 g/dL13.0-17.0[facility] HospitalKetones Auto test strip (U) [Mass/Vol]Ordered By: Spike Estrada on 33-50-6950Zuestol (U) [Mass/Vol]NegativeNegativeToledo HospitalLaboratory - Chemistry and Chemistry - challengeOrdered By: Shaila Bowen on 15-31-5749Jayprfrgg (Vitamin B12) [Mass/Vol]358 pg/nB370-194ApipzwhdsToledo HospitalLaboratory - Drug toxicologyOrdered By: Spike Estrada on 35-80-1890Jvhpknt Ql (U)PositiveNegativeToledo Hospital Laboratory - UrinalysisOrdered By: Spike Estrada on 53-49-2090Rtcdhvd casts LM Ql (Urine sed)0-8 [LPF]0-8[facility] HospitalLeukocytes [#/volume] corrected for nucleated erythrocytes in Blood by Automated counOrdered By: Spike Estrada on 60-25-3348SJJ corrected for nucl RBC Auto (Bld) [#/Vol]11.3 10*3/uL4.1-10.5FUniversity Hospitals TriPoint Medical CenterLymphocytes Auto (Bld) [#/Vol] Ordered By: Spike Estrada on 97-59-8943Xeoevogfqlb (Bld) [#/Vol]2.2 10*3/uL 1.00-4.8[facility] HospitalLymphocytes/100 WBC Auto (Bld)Ordered By: Spike Estrada on 52-73-3809Aoyoratmedt/100 WBC (Bld)19.6 %.[facility] HospitalH Auto (RBC) [Entitic mass]Ordered By: Spike Estrada on 30-75-4335CXR (RBC) [Entitic mass]29.7 pg27.5-35.2FUniversity Hospitals TriPoint Medical CenterMCHC Auto (RBC) [Mass/Vol]Ordered By: Spike Estrada on 74-38-9438NKEA (RBC) [Mass/Vol]32.7 g/dL32.5-35.6FUniversity Hospitals TriPoint Medical CenterMCV Auto (RBC) [Entitic vol]Ordered By: Spike Estrada on 54-70-1475HFA (RBC) [Entitic vol]90.8 fL83.5-101[facility] HospitalMonocyte distribution width [Entitic volume] in Blood by AutomatedOrdered By: Spike Estrada on 10-01-2022 Monocyte distribution width Auto (Bld) [Entitic vol]20.76 %0.00-20.00[facility] HospitalComment on above:For adults in ED, MDW > 20.0 may be associated with a higher risk of sepsis during the first 12 hrs of hospital admissionMonocytes Auto (Bld) [#/Vol]Ordered By: Spike Estrada on 10-01-2022 Monocytes (Bld) [#/Vol]0.6 10*3/uL0.0-0.8[facility] Monocytes/100 WBC Auto (Bld)Ordered By: Spike Estrada on 36-00-9667Aynxbnlhq/100 WBC (Bld)5.4 %.[facility] HospitalNeutrophils Auto (Bld) [#/Vol] Ordered By: Spike Estrada on 73-88-5133Ycvgluydkos (Bld) [#/Vol]8.3 10*3/uL 1.8-7.7FUniversity Hospitals TriPoint Medical CenterNeutrophils/100 WBC Auto (Bld)Ordered By: Spike Estrada on 62-75-8713Xpxnegvxbke/100 WBC (Bld)74.0 %.[facility] HospitalNitrite Test strip Ql (U)Ordered By: Spike Estrada on 87-29-9858Udelogx Ql (U)NegativeNegativeToledo HospitalNo Panel InformationOrdered By: Spike Estrada on 29-19-0221Flbbryaeq GFR ()54 mL/MinToledo HospitalComment on above:GFR estimated reference range: According to KDOQI guidelines, <60 ml/min/1.73m2 is sufficient todiagnose a patient with chronic kidney disease.Pharmacy Creatinine Clearance (ChemN/[facility] HospitalBedside Glucose CommentGlu2: cleaned meterToledo HospitalNucleated erythrocytes [Presence] in Blood by Automated countOrdered By: Spike Estrada on 39-73-4939Xcnwwoimx RBC Auto Ql (Bld)0.1 /100{WBC}0-0.5FUniversity Hospitals TriPoint Medical CenterPhencyclidine Screen Ql (U)Ordered By: Spike Estrada on 86-47-8029Szwueueytpqkd Ql (U)Negative NegativeToledo HospitalPlatelet mean volume Auto (Bld) [Entitic vol]Ordered By: Spike Estrada on 75-50-3967Zxvdkffd mean volume (Bld) [Entitic vol]8.2 fL6.6-10.1FUniversity Hospitals TriPoint Medical CenterPlatelets Auto (Bld) [#/Vol]Ordered By: Spike Estrada on 06-63-7938Kbqyzaaix (Bld) [#/Vol]285 10*3/uL 150-450T[facility] HospitalProtein Auto test strip (U) [Mass/Vol] Ordered By: Spike Estrada on 99-05-8228Uidjcih (U) [Mass/Vol]Trace mg/dLNegFayette County Memorial HospitalProtein [Mass/volume] in Serum or PlasmaOrdered By: Spike Estrada on 32-21-7307Xmbpdau [Mass/Vol]8.7 g/dL6.1-7.9[facility] HospitalRBC Auto (Bld) [#/Vol]Ordered By: Spike Estrada on 98-04-0822RIX (Bld) [#/Vol]4.91 10*6/uL3.90-5.60[facility] Hospitalerum or plasma alanine aminotransferase measurement without P-5'-P (enzymatic activiOrdered By: Spike Estrada on 57-82-4720JWN No additional P-5'-P [Catalytic activity/Vol]27 U/P64-01ZxgbgxmomAultman Hospitalerum or plasma albumin/globulin mass ratioOrdered By: Spike Estrada on 10-01-2022 Albumin/Globulin [Mass ratio]1.0 {ratio}[facility] Hospitalerum or plasma alkaline phosphatase measurement (enzymatic activity/volume)Ordered By: Spike Estrada on 17-20-9812DDG [Catalytic activity/Vol]87 U/I12-07KfrwbdxzmAultman Hospitalerum or plasma anion gap determinationOrdered By: Spike Estrada on 29-53-1171Rpcyt gap [Moles/Vol]15.0 mmol/L6.0-15.0[facility] Hospitalerum or plasma aspartate aminotransferase measurement (enzymatic activity/volume)Ordered By: Spike Estrada on 02-02-7007WJD [Catalytic activity/Vol]21 U/Q05-38XbfzgvxuxAultman Hospitalerum or plasma calcium measurement (mass/volume)Ordered By: Spike Estrada on 88-10-7570Dzzitos [Mass/Vol]10.0 mg/dL8.2-10.2FCorey Hospitalerum or plasma chloride measurement (moles/volume)Ordered By: Spike Estrada on 10-01-2022 Chloride [Moles/Vol]104 mmol/D01-815NavcozkmpAultman Hospitalerum or plasma ethanol measurement (mass/volume)Ordered By: Spike Estrada on 10-01-2022 Ethanol [Mass/Vol]mg/dLToledo HospitalEthanol [Mass/Vol]TNP [facility] HospitalComment on above:Test not performedSerum or plasma glucose measurement (mass/volume)Ordered By: Spike Estrada on 10-01-2022 Glucose [Mass/Vol]152 mg/yG12-092IsgnamzcmToledo HospitalComment on above:ADA recommended reference rangeRandom Glucose Reference Range is dependent on time and content of last meal. Glucose of more than 200 mg/dL in a nonstressed, ambulatory subject supports the diagnosisof Diabetes Mellitus.Serum or plasma potassium measurement (moles/volume)Ordered By: Spike Estrada on 31-61-8216Lnywbwnjv [Moles/Vol]4.4 mmol/L3.5-5.1FCorey Hospitalerum or plasma sodium measurement (moles/volume)Ordered By: Spike Estrada on 30-33-8817Yozcyi [Moles/Vol]136 mmol/V376-071OgsoitctlAultman Hospitalerum or plasma total bilirubin measurement (mass/volume)Ordered By: Spike Estrada on 72-16-6298Cwnoyojcr [Mass/Vol]0.8 mg/dL0.3-1.2FCorey Hospitalerum or plasma total carbon dioxide measurement (moles/volume)Ordered By: Spike Estrada on 64-74-8269TA7 [Moles/Vol]21.4 mmol/L 22.0-30.0[facility] Hospitalerum or plasma urea nitrogen measurement (mass/volume)Ordered By: Spike Estrada on 64-00-8089Pnke nitrogen [Mass/Vol]22 mg/dL9-23[facility] Hospitalpecific gravity Auto test strip (U) [Rel density]Ordered By: Spike Estrada on 48-96-7888Vczwsfvh gravity (U) [Rel density]1.0261.001-1.030[facility] Squamous epithelial cells detection in urine sediment by light microscopyOrdered By: Spike Estrada on 19-53-8726Eymqksuqup cells.squamous LM Ql (Urine sed)None seen [HPF]0-2FThe [facility] at [facility] DL <= 0.005 mIU/L QnOrdered By: Shaila Bowen on 96-14-4268FXF Qn0.91 m[IU]/L0.45-5.33[facility] HospitalTroponin I.cardiac [Mass/volume] in Serum or Plasma by High sensitivity methodOrdered By: Pam Singh on 20-08-8763Aarsyyvj I.cardiac High sensitivity method [Mass/Vol]5 pg/mL0-20[facility] HospitalUrine bacteria detection by automated methodOrdered By: Spike Estrada on 10-01-2022 Bacteria Auto Ql (U)None seenNone SeenToledo HospitalUrine clarity by refractometry automatedOrdered By: Spike Estrada on 45-04-3928Cookffy Refractometry automated (U)ClearClearFUniversity Hospitals TriPoint Medical CenterUrine cocaine detectionOrdered By: Spike Estrada on 79-27-9279Alrazga Ql (U)Negative NegativeToledo HospitalUrine culture routineOrdered By: Spike Estrada on 80-72-5883Fyhpmlpf identified Cx Nom (U)No Growth 2 DaysToledo HospitalUrine glucose measurement by automated test strip (mass/volume)Ordered By: Spike Estrada on 50-65-6338Jmvdlfn Auto test strip (U) [Mass/Vol]>=1000 mg/dLNoOhioHealth Shelby HospitalUrine hemoglobin detection by automated test stripOrdered By: Spike Estrada on 10-01-2022 Hemoglobin Auto test strip Ql (U)NegativeNegativeToledo HospitalUrine leukocyte esterase detection by automated test stripOrdered By: Spike Estrada on 89-31-9379Stfvgxqml esterase Auto test strip Ql (U)Negative [facility] HospitalUrobilinogen Auto test strip (U) [Mass/Vol]Ordered By: Spike Estrada on 34-20-3492Ndevhynaganq (U) [Mass/Vol] Normal mg/dLNoOhioHealth Shelby HospitalWBC Auto (Bld) [#/Vol]Ordered By: Spike Estrada on 15-37-6034GNL (Bld) [#/Vol]11.3 10*3/uL4.1-10.5FUniversity Hospitals TriPoint Medical CenterpH Auto test strip (U)Ordered By: Spike Estrada on 21-81-7993qQ (U)5.5 [pH]5.0-9.0[facility] HospitalGlucose Glucometer (BldC) [Mass/Vol]Ordered By: Zheng Iraheta on 60-68-9702Ukwocyw [Mass/Vol]135 mg/dLToledo HospitalComment on above:Random Glucose Reference Range is dependent on time and content of last meal. Glucose of more than 200 mg/dL in a nonstressed, ambulatory subject supports the diagnosis of Diabetes Mellitus.No Panel InformationOrdered By: Zheng Iraheta on 10-36-1244Hlxhmpb Glucose CommentGlu2: cleaned meterToledo HospitalCOVID-19 Positive/NegativeOrdered By: Zheng Iraheta on 07-24-2022 SARS-CoV-2 (COVID-19) N gene ANGÉLICA+probe Ql (Resp)NegativeNegativeToledo HospitalComment on above:Testing for SARS-CoV-2 by RT-PCRThis test was developed and its performance characteristics determined by [employer] ([employer]) and validated at the [facility]. This test has not been FDA [...] unless the authorization is terminated or revoked sooner.Basophils Auto (Bld) [#/Vol]Ordered By: Zheng Iraheta on 34-20-9056Rxsjriwad (Bld) [#/Vol]0.1 10*3/uL0.0-0.2FUniversity Hospitals TriPoint Medical CenterBasophils/100 WBC Auto (Bld)Ordered By: Zheng Iraheta on 07-12-2022 Basophils/100 WBC (Bld)0.5 %.[facility] HospitalBlood hemoglobin measurement (mass/volume)Ordered By: Zheng Iraheta on 90-38-4862Hsspjxhusn (Bld) [Mass/Vol]14.3 g/dL13.0-17.0[facility] HospitalBlood leukocytes automated count (number/volume)Ordered By: Zheng Iraheta on 06-17-5594KGO (Bld) [#/Vol]11.4 10*3/uL4.5-11.0[facility] HospitalCreatinine and Glomerular filtration rate.predicted panel (S/P/Bld)Ordered By: Zheng Iraheta on 46-45-0025Krqansuggx [Mass/Vol]1.56 mg/dL0.64-1.27T[facility] HospitalEosinophils Auto (Bld) [#/Vol]Ordered By: Zheng Iraheta on 07-12-2022 Eosinophils (Bld) [#/Vol]0.1 10*3/uL0.0-0.45[facility] Eosinophils/100 WBC Auto (Bld)Ordered By: Zheng Iraheta on 07-12-2022 Eosinophils/100 WBC (Bld)1.1 %.[facility] HospitalErythrocyte distribution width Auto (RBC) [Ratio]Ordered By: Zheng Iraheta on 07-12-2022 Erythrocyte distribution width (RBC) [Ratio]14.5 %12.0-14.8[facility] HospitalEstimated glomerular filtration rate (GFR) non- Ordered By: Zheng Iraheta on 51-90-2870AUT/1.73 sq M.predicted among non-blacks MDRD (S/P/Bld) [Vol rate/Area]45 mL/MinToledo Hospital Hematocrit Auto (Bld) [Volume fraction]Ordered By: Zheng Iraheta on 07-12-2022 Hematocrit (Bld) [Volume fraction]43.4 %38.8-50.0[facility] HospitalLaboratory - Hematology and Cell countsOrdered By: Zheng Iraheta on 48-00-5330Csaeyndpd RBC/100 WBC (Bld) [Ratio]0.1 %0-0.5FUniversity Hospitals TriPoint Medical CenterLymphocytes Auto (Bld) [#/Vol]Ordered By: Zheng Iraheta on 30-04-9535Pjpeiyhkrca (Bld) [#/Vol]2.6 10*3/uL1.00-4.8[facility] HospitalLymphocytes/100 WBC Auto (Bld)Ordered By: Zhneg Iraheta on 07-12-2022 Lymphocytes/100 WBC (Bld)22.9 %.[facility] HospitalH Auto (RBC) [Entitic mass]Ordered By: Zheng Iraheta on 02-23-0674EYJ (RBC) [Entitic mass] 30.1 pg27.5-35.2FUniversity Hospitals TriPoint Medical CenterMCHC Auto (RBC) [Mass/Vol] Ordered By: Zheng Iraheta on 02-12-4037VHXC (RBC) [Mass/Vol]33.0 g/dL32.5-35.6 [facility] HospitalMCV Auto (RBC) [Entitic vol]Ordered By: Zheng Iraheta on 53-45-4074VRG (RBC) [Entitic vol]91.1 fL83.5-101T[facility] HospitalMonocytes Auto (Bld) [#/Vol]Ordered By: Zheng Iraheta on 43-43-1488Uwqudbupj (Bld) [#/Vol]0.9 10*3/uL0.0-0.8[facility] HospitalMonocytes/100 WBC Auto (Bld)Ordered By: Zheng Iraheta on 07-12-2022 Monocytes/100 WBC (Bld)8.0 %.[facility] HospitalNeutrophils Auto (Bld) [#/Vol]Ordered By: Zheng Iraheta on 04-56-6434Uerakhuiiuo (Bld) [#/Vol]7.7 10*3/uL1.8-7.7FUniversity Hospitals TriPoint Medical CenterNeutrophils/100 WBC Auto (Bld) Ordered By: Zheng Iraheta on 48-68-5832Muqutttnxgz/100 WBC (Bld)67.5 %.[facility] HospitalNo Panel InformationOrdered By: Zheng Iraheta on 55-47-9381Adbxpymnz GFR ()55 mL/MinToledo HospitalComment on above:GFR estimated reference range: According to KDOQI guidelines, <60 ml/min/1.73m2 is sufficient todiagnose a patient with chronic kidney disease.Pharmacy Creatinine Clearance (ChemN/[facility] HospitalPlatelet mean volume Auto (Bld) [Entitic vol]Ordered By: Zheng Iraheta on 19-44-7813Chqybsxx mean volume (Bld) [Entitic vol]8.4 fL6.6-10.1FUniversity Hospitals TriPoint Medical CenterPlatelets Auto (Bld) [#/Vol]Ordered By: Zheng Iraheta on 18-41-7215Nenfrhpar (Bld) [#/Vol]314 10*3/sN432-574JvccdbprxToledo HospitalRBC Auto (Bld) [#/Vol]Ordered By: Zehng rIaheta on 56-07-1537CKI (Bld) [#/Vol]4.76 10*6/uL3.90-5.60[facility] Hospitalerum or plasma anion gap determinationOrdered By: Zheng Iraheta on 40-32-0116Nktpf gap [Moles/Vol]15.8 mmol/L6.0-15.0Aultman Hospitalerum or plasma calcium measurement (mass/volume)Ordered By: Zheng Iraheta on 60-23-3706Kbuclsu [Mass/Vol]10.0 mg/dL8.2-10.2FCorey Hospitalerum or plasma chloride measurement (moles/volume)Ordered By: Zheng Iraheta on 07-12-2022 Chloride [Moles/Vol]106 mmol/L75-699IppbtojrbAultman Hospitalerum or plasma glucose measurement (mass/volume)Ordered By: Zheng Iraheta on 07-12-2022 Glucose [Mass/Vol]120 mg/nX70-040HwliugbeeToledo HospitalComment on above:ADA recommended reference range Random Glucose Reference Range is dependent on time and content of last meal. Glucose of more than 200 mg/dL in a nonstressed, ambulatory subject supports the diagnosis of Diabetes Mellitus.ADA recommended reference rangeRandom Glucose Reference Range is dependent on time and content of last meal. Glucose of more than 200 mg/dL in a nonstressed, ambulatory subject supports the diagnosisof Diabetes Mellitus.Serum or plasma potassium measurement (moles/volume)Ordered By: Zheng Iraheta on 53-86-2889Xupkdnwzo [Moles/Vol]5.5 mmol/L3.5-5.1FCorey Hospitalerum or plasma sodium measurement (moles/volume)Ordered By: Zheng Iraheta on 92-67-3854Nadqdd [Moles/Vol]139 mmol/Z126-136WuvjerikxAultman Hospitalerum or plasma total carbon dioxide measurement (moles/volume)Ordered By: Zheng Iraheta on 77-88-4868BK0 [Moles/Vol]22.7 mmol/L 22.0-30.0[facility] Hospitalerum or plasma urea nitrogen measurement (mass/volume)Ordered By: Zheng Iraheta on 43-41-5784Jqee nitrogen [Mass/Vol]21 mg/dL9-23T[facility]edo HospitalGlucose Glucometer (BldC) [Mass/Vol]Ordered By: Mark Anthony Heath on 74-39-0717Dvqocle [Mass/Vol]121 mg/dL [facility] HospitalComment on above:Random Glucose Reference Range is dependent on time and content of last meal. Glucose of more than 200 mg/dL in a nonstressed, ambulatory subject supports the diagnosis of Diabetes Mellitus.No Panel InformationOrdered By: Mark Anthony Heath on 76-99-1295Nsatyju Glucose CommentGlu2: cleaned meterToledo HospitalCOVID-19 Positive/NegativeOrdered By: Mark Anthony Heath on 37-48-1159ATJJ-CoV-2 (COVID-19) N gene ANGÉLICA+probe Ql (Resp)NegativeNegativeToledo HospitalComment on above:Testing for SARS-CoV-2 by RT-PCR This test was developed and its performance characteristics determined by [employer] ([employer]) and validated at the [facility]. This test has not been FDA [...] of time the declaration that circumstances exist ju stifying the authorization of the emergency use of in vitro diagnostic tests for detection of SARS-CoV-2 virus and/or diagnosis of COVID-19 infection under section 564(b)(1) of the Act, 21 U.S.C. 360bbb-3(b)(1), unless the authorization is terminated or revoked sooner.Testing for SARS-CoV-2 by RT-PCRThis test was developed and its performance characteristics determined by [employer] ([employer]) and validated at the [facility]. This test has not been FDA [...] unless the authorization is terminated or revoked sooner.Glucose Glucometer (BldC) [Mass/Vol]Ordered By: Mark Anthony Heath on 25-96-8984Ejxtfbh [Mass/Vol]128 mg/dLToledo HospitalComment on above:Random Glucose Reference Range is dependent on time and content of last meal. Glucose of more than 200 mg/dL in a nonstressed, ambulatory subject supports the diagnosis of Diabetes Mellitus.COVID-19 Positive/NegativeOrdered By: Mark Anthony Heath on 15-37-2411CHVH-CoV-2 (COVID-19) N gene ANGÉLICA+probe Ql (Resp) NegativeNegativeToledo HospitalComment on above:Testing for SARS-CoV-2 by RT-PCR This test was developed and its performance characteristics determined by [employer] ([employer]) and validated at the [facility]. This test has not been FDA [...] of time the declaration that circumstances exist ju stifying the authorization of the emergency use of in vitro diagnostic tests for detection of SARS-CoV-2 virus and/or diagnosis of COVID-19 infection under section 564(b)(1) of the Act, 21 U.S.C. 360bbb-3(b)(1), unless the authorization is terminated or revoked sooner.Testing for SARS-CoV-2 by RT-PCRThis test was developed and its performance characteristics determined by [employer] ([employer]) and validated at the [facility]. This test has not been FDA [...] unless the authorization is terminated or revoked sooner.Albumin [Mass/volume] in Serum or PlasmaOrdered By: César Arreaga on 24-44-1350Dguvblx [Mass/Vol]4.1 g/dL3.2-5.5FUniversity Hospitals TriPoint Medical Center Automated epithelial cells count in urine sediment (number/area)Ordered By: César Arreaga on 16-54-2068Gmxvfkhmmh cells Auto (Urine sed) [#/Area]1-2 [HPF]0-2 [facility] HospitalAutomated erythrocytes count in urine sediment (number/area)Ordered By: César Arreaga on 17-16-2099OEF Auto (Urine sed) [#/Area] 3-4 [HPF]0-4FUniversity Hospitals TriPoint Medical CenterAutomated leukocytes count in urine sediment (number/area)Ordered By: César Arreaga on 07-58-0625CXI Auto (Urine sed) [#/Area]None seen [HPF]0-4FUniversity Hospitals TriPoint Medical CenterBasophils Auto (Bld) [#/Vol]Ordered By: César Arreaga on 80-76-0560Wxpbjebfx (Bld) [#/Vol]0.1 10*3/uL 0.0-0.2FUniversity Hospitals TriPoint Medical CenterBasophils/100 WBC Auto (Bld)Ordered By: César Arreaga on 16-61-9111Aetrpwtnu/100 WBC (Bld)0.5 %.[facility]edo HospitalBilirubin Auto test strip Ql (U)Ordered By: César Arreaga on 05-19-2022 Bilirubin Ql (U)NegativeNegativeToledo HospitalBlood hemoglobin measurement (mass/volume)Ordered By: César Arreaga on 05-19-2022 Hemoglobin (Bld) [Mass/Vol]14.2 g/dL13.0-17.0[facility] Blood leukocytes automated count (number/volume)Ordered By: César Arreaga on 57-36-7130JMT (Bld) [#/Vol]10.4 10*3/uL4.5-11.0[facility] Creatinine and Glomerular filtration rate.predicted panel (S/P/Bld)Ordered By: César Arreaga on 69-09-1884Vcidyeyygs [Mass/Vol]1.62 mg/dL0.64-1.27T[facility] HospitalEosinophils Auto (Bld) [#/Vol]Ordered By: César Arreaga on 92-33-1774Zfuzpschygo (Bld) [#/Vol]0.1 10*3/uL0.0-0.45[facility] HospitalEosinophils/100 WBC Auto (Bld)Ordered By: César Arreaga on 05-19-2022 Eosinophils/100 WBC (Bld)1.3 %.[facility] HospitalErythrocyte distribution width Auto (RBC) [Ratio]Ordered By: César Arreaga on 05-19-2022 Erythrocyte distribution width (RBC) [Ratio]15.2 %12.0-14.8[facility] HospitalEstimated glomerular filtration rate (GFR) non- Ordered By: César Arreaga on 05-59-4395ZGY/1.73 sq M.predicted among non-blacks MDRD (S/P/Bld) [Vol rate/Area]43 mL/MinToledo HospitalGlobulin Calc (S) [Mass/Vol]Ordered By: César Arreaga on 03-94-4410Jmbapqcm (S) [Mass/Vol] 3.2 g/dLToledo HospitalHematocrit Auto (Bld) [Volume fraction] Ordered By: César Arreaga on 81-10-6868Ymowvqojfg (Bld) [Volume fraction]42.6 % 38.8-50.0[facility] HospitalKetfranciscan health laf[facility] east Auto test strip (U) [Mass/Vol] Ordered By: César Arreaga on 62-18-8625Arqweyl (U) [Mass/Vol]TraceNegative [facility] HospitalLaboratory - Hematology and Cell countsOrdered By: César Arreaga on 35-94-4282Auvbjhepb RBC/100 WBC (Bld) [Ratio]0.0 %0-0.5 [facility] HospitalLymphocytes Auto (Bld) [#/Vol]Ordered By: César Arreaga on 90-03-8471Hjhkgrxosup (Bld) [#/Vol]4.3 10*3/uL1.00-4.8[facility] HospitalLymphocytes/100 WBC Auto (Bld)Ordered By: César Arreaga on 62-30-5461Lpwahiqztsf/100 WBC (Bld)40.8 %.[facility] Auto (RBC) [Entitic mass]Ordered By: César Arreaga on 55-75-8357CIP (RBC) [Entitic mass]30.4 pg27.5-35.2FUniversity Hospitals TriPoint Medical CenterMCHC Auto (RBC) [Mass/Vol]Ordered By: César Arreaga on 78-31-4574QVQV (RBC) [Mass/Vol]33.3 g/dL 32.5-35.6FUniversity Hospitals TriPoint Medical CenterMCV Auto (RBC) [Entitic vol]Ordered By: César Arreaga on 97-30-0997OYU (RBC) [Entitic vol]91.3 fL83.5-101T[facility] HospitalMonocytes Auto (Bld) [#/Vol]Ordered By: César Arreaga on 49-02-6372Pzfjqujen (Bld) [#/Vol]0.8 10*3/uL0.0-0.8T[facility] HospitalMonocytes/100 WBC Auto (Bld)Ordered By: César Arreaga on 05-19-2022 Monocytes/100 WBC (Bld)7.8 %.[facility] HospitalNeutrophils Auto (Bld) [#/Vol]Ordered By: César Arreaga on 42-65-4125Elprawsjwxz (Bld) [#/Vol]5.2 10*3/uL1.8-7.7FUniversity Hospitals TriPoint Medical CenterNeutrophils/100 WBC Auto (Bld) Ordered By: César Arreaga on 04-18-7543Lxaubjuhkjv/100 WBC (Bld)49.6 %.[facility] HospitalNo Panel InformationOrdered By: César Arreaga on 05-19-2022 Estimated GFR ()52 mL/MinToledo Hospital Comment on above:GFR estimated reference range: According to KDOQI guidelines, <60 ml/min/1.73m2 is sufficient todiagnose a patient with chronic kidney disease.Pharmacy Creatinine Clearance (Chem55.27T[facility] HospitalPlatelet mean volume Auto (Bld) [Entitic vol]Ordered By: César Arreaga on 46-80-1141Ohvpdiei mean volume (Bld) [Entitic vol]8.3 fL6.6-10.1FUniversity Hospitals TriPoint Medical CenterPlatelets Auto (Bld) [#/Vol]Ordered By: César Arreaga on 44-18-1145Pkyhtlsem (Bld) [#/Vol]287 10*3/pV843-289PxujxjjobToledo HospitalProtein Auto test strip (U) [Mass/Vol]Ordered By: César Arreaga on 08-64-2872Qaezdyj (U) [Mass/Vol]Trace mg/dLNegativeToledo HospitalProtein [Mass/volume] in Serum or PlasmaOrdered By: César Arreaga on 63-47-2923Gsfgntb [Mass/Vol]7.3 g/dL6.1-7.9T[facility] HospitalRBC Auto (Bld) [#/Vol]Ordered By: César Arreaga on 40-16-8218HEI (Bld) [#/Vol]4.66 10*6/uL3.90-5.60[facility]ultman Hospitalerum or plasma alanine aminotransferase measurement without P-5'-P (enzymatic activiOrdered By: César Arreaga on 01-63-3296ZAF No additional P-5'-P [Catalytic activity/Vol]23 U/L10-60 [facility] Hospitalerum or plasma albumin/globulin mass ratio Ordered By: César Arreaga on 70-07-5401Hhaaijw/Globulin [Mass ratio]1.3 {ratio} [facility] Hospitalerum or plasma alkaline phosphatase measurement (enzymatic activity/volume)Ordered By: César Arreaga on 58-81-9486PXY [Catalytic activity/Vol]80 U/X59-16HgxotlhgnAultman Hospitalerum or plasma aspartate aminotransferase measurement (enzymatic activity/volume)Ordered By: César Arreaga on 62-52-2436EYP [Catalytic activity/Vol]22 U/D63-09ZgothyfuwAultman Hospitalerum or plasma calcium measurement (mass/volume)Ordered By: César Arreaga on 55-98-0171Uskmbnh [Mass/Vol]9.6 mg/dL8.2-10.2FCorey Hospitalerum or plasma chloride measurement (moles/volume) Ordered By: César Arreaga on 51-65-2024Gacvcudo [Moles/Vol]102 mmol/L95-114 [facility] Hospitalerum or plasma glucose measurement (mass/volume)Ordered By: César Arreaga on 28-93-1423Bfyzdqn [Mass/Vol]150 mg/dL 70-100T[facility] HospitalComment on above:ADA recommended reference range Random Glucose Reference Range is dependent on time and content of last meal. Glucose of more than 200 mg/dL in a nonstressed, ambulatory subject supports the diagnosis of Diabetes Mellitus.ADA recommended reference rangeRandom Glucose Reference Range is dependent on time and content of last meal. Glucose of more than 200 mg/dL in a nonstressed, ambulatory subject supports the diagnosisof Diabetes Mellitus.Serum or plasma potassium measurement (moles/volume)Ordered By: César Arreaga on 02-63-0900Wplggmuga [Moles/Vol]3.7 mmol/L3.5-5.1FCorey Hospitalerum or plasma sodium measurement (moles/volume)Ordered By: César Arreaga on 12-15-0562Wqbtok [Moles/Vol]139 mmol/U851-254SybpufcdtAultman Hospitalerum or plasma total bilirubin measurement (mass/volume) Ordered By: César Arreaga on 08-07-3674Ttkbmtwdw [Mass/Vol]0.8 mg/dL0.3-1.2 [facility] Hospitalerum or plasma total carbon dioxide measurement (moles/volume)Ordered By: César Arreaga on 93-68-9256YK2 [Moles/Vol] 22.8 mmol/L22.0-30.0[facility] Hospitalerum or plasma urea nitrogen measurement (mass/volume)Ordered By: César Arreaga on 73-40-5967Vsxn nitrogen [Mass/Vol]17 mg/dL9-23T[facility] HospitalUrine appearance Ordered By: César Arreaga on 09-36-1193Uiyxuyrryv (U)ClearCleSouthview Medical CenterUrine bacteria detection by automated methodOrdered By: César Arreaga on 80-02-2617Ucaoukdn Auto Ql (U)RareNone SeenToledo HospitalUrine colorOrdered By: César Arreaga on 72-25-5423Kkuay (U)YellowYellow [facility] HospitalUrine glucose measurement by automated test strip (mass/volume)Ordered By: César Arreaga on 81-26-3892Cgcispr Auto test strip (U) [Mass/Vol]>=1000 mg/dLDelaware County HospitalUrine hemoglobin detection by automated test stripOrdered By: César Arreaga on 89-55-2294[place] Auto test strip Ql (U)2+NegativeToledo HospitalUrine leukocyte esterase detection by automated test stripOrdered By: César Arreaga on 13-24-9621Gjptyqrdl esterase Auto test strip Ql (U)Negative NegativeToledo HospitalUrine nitrite detection by automated test stripOrdered By: César Arreaga on 56-49-0484Qzxbpbs Auto test strip Ql (U) NegativeNegativeToledo HospitalUrobilinogen Auto test strip (U) [Mass/Vol]Ordered By: César Arreaga on 93-38-3062Zwfimdfkovnt (U) [Mass/Vol] Normal mg/dLNormalToledo HospitalpH Auto test strip (U)Ordered By: César Arreaga on 06-46-7032vT (U)1.025 [pH]1.001-1.030T[facility] HospitalpH (U)5.5 [pH]5.0-9.0[facility] HospitalAutomated erythrocytes count in urine sediment (number/area)Ordered By: Terell Amor on 74-38-6070VTI Auto (Urine sed) [#/Area]0-1 [HPF]0-4FUniversity Hospitals TriPoint Medical CenterAutomated leukocytes count in urine sediment (number/area)Ordered By: Terell Amor on 02-99-9873NTV Auto (Urine sed) [#/Area]0-1 [HPF]0-4FUniversity Hospitals TriPoint Medical CenterBasophils Auto (Bld) [#/Vol]Ordered By: Terell Amor on 50-78-3662Crwoexkmk (Bld) [#/Vol]0.0 10*3/uL0.0-0.2FUniversity Hospitals TriPoint Medical CenterBasophils/100 WBC Auto (Bld)Ordered By: Terell Amor on 05-07-2022 Basophils/100 WBC (Bld)0.3 %.[facility] HospitalBilirubin Test strip Ql (U)Ordered By: Terell Amor on 37-58-6778Gbsxiapvv Ql (U)Negative NegativeToledo HospitalBlood hemoglobin measurement (mass/volume)Ordered By: Terell Amor on 33-75-1729Efvfavxoga (Bld) [Mass/Vol]14.3 g/dL13.0-17.0[facility] HospitalBlood leukocytes automated count (number/volume)Ordered By: Terell Amor on 63-56-6458QAP (Bld) [#/Vol]12.1 10*3/uL4.5-11.0[facility] HospitalColor Auto (U) Ordered By: Terell Amor on 62-33-5295Nhhgl (U)YellowYellowToledo HospitalCreatinine and Glomerular filtration rate.predicted panel (S/P/Bld)Ordered By: Terell Amor on 16-02-7227Agzssfdaoz [Mass/Vol]1.50 mg/dL0.64-1.27[facility] HospitalEosinophils Auto (Bld) [#/Vol] Ordered By: Terell Amor on 40-61-3738Waecehrqufw (Bld) [#/Vol]0.1 10*3/uL 0.0-0.45[facility] HospitalEosinophils/100 WBC Auto (Bld)Ordered By: Terell Amor on 27-11-2493Ejzvxhgolwm/100 WBC (Bld)0.5 %.[facility] HospitalErythrocyte distribution width Auto (RBC) [Ratio]Ordered By: Terell Amor on 95-56-5454Dmjagpqjpvt distribution width (RBC) [Ratio] 15.1 %12.0-14.8[facility] HospitalEstimated glomerular filtration rate (GFR) non- AmericanOrdered By: Terell Amor on 17-85-0221YUH/1.73 sq M.predicted among non-blacks MDRD (S/P/Bld) [Vol rate/Area]47 mL/Min [facility] HospitalGlucose mean value [Mass/volume] in Blood Estimated from glycated hemoglobinOrdered By: Terell Amor on 05-07-2022 Average glucose Estimated from glycated hemoglobin (Bld) [Mass/Vol]154 mg/dL [facility] HospitalHematocrit Auto (Bld) [Volume fraction]Ordered By: Terell Amor on 30-64-6393Jbnljpgpnn (Bld) [Volume fraction]44.1 % 38.8-50.0[facility] HospitalHemoglobin A1c percentageOrdered By: Terell Amor on 43-20-3544QeZ2j (Bld) [Mass fraction]7.0 %4.3-5.6FUniversity Hospitals TriPoint Medical CenterComment on above:Increased risk for diabetes: 5.7 - 6.4 diabetes: >6.4 glycemic control for adults with diabetes: <7.0Increased risk for diabetes: 5.7 - 6.4diabetes: >6.4glycemic control for adults with diabetes: <7.0[place]et[place] Auto test strip (U) [Mass/Vol]Ordered By: Terell Amor on 33-26-7148Qatsqbm (U) [Mass/Vol]1+NegativeToledo HospitalLaboratory - Hematology and Cell countsOrdered By: Terell Amor on 40-69-8018Cgxjbcqaw RBC/100 WBC (Bld) [Ratio]0.1 %0-0.5FUniversity Hospitals TriPoint Medical CenterLaboratory - Urinalysis Ordered By: Terell Amor on 49-09-0131Meyugdv casts LM Ql (Urine sed)0-8 [LPF]0-8[facility] HospitalLymphocytes Auto (Bld) [#/Vol]Ordered By: Terell Amor on 45-04-9067Evgstodwycz (Bld) [#/Vol]2.5 10*3/uL1.00-4.8 [facility] HospitalLymphocytes/100 WBC Auto (Bld)Ordered By: Terell Amor on 32-41-7616Trppdqyqlho/100 WBC (Bld)20.6 %.[facility] Auto (RBC) [Entitic mass]Ordered By: Terell Amor on 70-39-1111AZG (RBC) [Entitic mass]29.8 pg27.5-35.2FUniversity Hospitals TriPoint Medical CenterMCHC Auto (RBC) [Mass/Vol]Ordered By: Terell Amor on 58-68-5301IZWF (RBC) [Mass/Vol]32.5 g/dL32.5-35.6FUniversity Hospitals TriPoint Medical CenterMCV Auto (RBC) [Entitic vol]Ordered By: Terell Amor on 50-35-8755QKP (RBC) [Entitic vol]91.6 fL83.5-101[facility] HospitalMonocytes Auto (Bld) [#/Vol] Ordered By: Terell Amor on 74-13-1991Hhquiluru (Bld) [#/Vol]0.9 10*3/uL 0.0-0.8[facility] HospitalMonocytes/100 WBC Auto (Bld)Ordered By: Terell Amor on 87-60-5575Eakazjeav/100 WBC (Bld)7.4 %.[facility] HospitalNeutrophils Auto (Bld) [#/Vol]Ordered By: Terell Amor on 27-67-6037Qtniheuqqxz (Bld) [#/Vol]8.6 10*3/uL1.8-7.7FUniversity Hospitals TriPoint Medical CenterNeutrophils/100 WBC Auto (Bld)Ordered By: Terell Amor on 05-07-2022 Neutrophils/100 WBC (Bld)71.2 %.[facility] HospitalNitrite Test strip Ql (U)Ordered By: Terell Amor on 78-58-2851Xkqkpgn Ql (U)Negative NegativeToledo HospitalNo Panel InformationOrdered By: Terell Amor on 54-23-0021Guveebllr GFR ()57 mL/MinToledo HospitalComment on above:GFR estimated reference range: According to KDOQI guidelines, <60 ml/min/1.73m2 is sufficient todiagnose a patient with chronic kidney disease.Pharmacy Creatinine Clearance (ChemN/[facility] HospitalPlatelet mean volume Auto (Bld) [Entitic vol]Ordered By: Terell Amor on 55-24-0982Imzpayvv mean volume (Bld) [Entitic vol]8.9 fL6.6-10.1 [facility] HospitalPlatelets Auto (Bld) [#/Vol]Ordered By: Terell Amor on 29-49-8045Vsuauxrcs (Bld) [#/Vol]233 10*3/lR733-274HhblhbakeToledo HospitalProtein Auto test strip (U) [Mass/Vol]Ordered By: Terell Amor on 85-82-6228Avjqdlh (U) [Mass/Vol]30 mg/dLNegativeToledo HospitalRBC Auto (Bld) [#/Vol]Ordered By: Terell Amor on 90-21-0881IKA (Bld) [#/Vol]4.81 10*6/uL3.90-5.60[facility] Hospitalerum or plasma calcium measurement (mass/volume)Ordered By: Terell Amor on 91-62-0102Kmqfelh [Mass/Vol]9.7 mg/dL8.2-10.2FUniversity Hospitals TriPoint Medical Center Serum or plasma chloride measurement (moles/volume)Ordered By: Terell Amor on 97-45-9461Acwpalcj [Moles/Vol]104 mmol/N70-583OqpycahwyAultman Hospitalerum or plasma glucose measurement (mass/volume)Ordered By: Terell Amor on 21-76-1343Pljalgi [Mass/Vol]99 mg/vN01-249PlsgnijheToledo HospitalComment on above:ADA recommended reference range Random Glucose Reference Range is dependent on time and content of last meal. Glucose of more than 200 mg/dL in a nonstressed, ambulatory subject supports the diagnosis of Diabetes Mellitus.ADA recommended reference rangeRandom Glucose Reference Range is dependent on time and content of last meal. Glucose of more than 200 mg/dL in a nonstressed, ambulatory subject supports the diagnosisof Diabetes Mellitus.Serum or plasma potassium measurement (moles/volume)Ordered By: Terell Amro on 73-10-4558Qtqzmrqfd [Moles/Vol]4.5 mmol/L3.5-5.1FCorey Hospitalerum or plasma sodium measurement (moles/volume)Ordered By: Terell Amor on 27-26-1097Odysjg [Moles/Vol]134 mmol/I039-583SbacytowrAultman Hospitalerum or plasma total carbon dioxide measurement (moles/volume)Ordered By: Terell Amor on 68-85-9017RE7 [Moles/Vol]17.6 mmol/L22.0-30.0[facility] Hospitalerum or plasma urea nitrogen measurement (mass/volume)Ordered By: Terell Amor on 36-99-6946Qftj nitrogen [Mass/Vol]19 mg/dL9-23[facility]man Hospitalpecific gravity Auto test strip (U) [Rel density]Ordered By: Terell Amor on 96-04-9506Wgxyfeow gravity (U) [Rel density]1.0271.001-1.030[facility] Squamous epithelial cells detection in urine sediment by light microscopyOrdered By: Terell Amor on 35-22-8611Gtkymiaxst cells.squamous LM Ql (Urine sed)None seen [HPF]0-2FUniversity Hospitals TriPoint Medical CenterUrine bacteria detection by automated methodOrdered By: Terell Amor on 86-42-9035Iedwuyss Auto Ql (U) None seenNone SeenToledo HospitalUrine clarity by refractometry automatedOrdered By: Terell Amor on 96-81-6395Nuhvosj Refractometry automated (U)ClearClearFUniversity Hospitals TriPoint Medical CenterUrine glucose measurement by automated test strip (mass/volume)Ordered By: Terell Amor on 79-66-8773Xvhkpfk Auto test strip (U) [Mass/Vol]>=1000 mg/dLNoLicking Memorial HospitalUrine hemoglobin detection by automated test stripOrdered By: Terell Amor on 38-90-7803Gtprxyatrz Auto test strip Ql (U) NegativeNegBarney Children's Medical CenterUrine leukocyte esterase detection by automated test stripOrdered By: Terell Amor on 05-07-2022 Leukocyte esterase Auto test strip Ql (U)NegativeNegativeToledo HospitalUrobilinogen Auto test strip (U) [Mass/Vol]Ordered By: Terell Amor on 50-61-5903Dhzeznrlipfv (U) [Mass/Vol]Normal mg/dLNoOhioHealth Shelby HospitalpH Auto test strip (U)Ordered By: Terell Amor on 51-76-9164cB (U)5.0 [pH]5.0-9.0[facility] HospitalMRI HIP LT WO CONon [id number] HIP LT WO CONEXAM: MRI LEFT HIP WITH CONTRAST/MRI ARTHROGRAM LEFT HIP. COMPARISON: Pelvis and [...] on the right seen on the large fjqwn-wi-nszt STIR images. No paralabral cyst is evident. [...] Electronically authenticated by: DENIZ FAN Date: 2021-08-30 14:51[facility]XR [facility] EXPon [id number] ARTHRO HIP LT EXP EXAMINATION: XR ARTHRO HIP LT EXP HISTORY: Disorder of hip [...] Electronically authenticated by: ALFREDO LEWIS Date: 2021-08-30 08:29[facility] Vital Signs Date TimeVital SignValuePerforming StpuynsgpFqvhgoem30-83-7958 13:09-0400Body wkrsot532.8 Ja Hernandez MD Work Phone: eZelleronSaint John's HospitalJqyhbdqges21-53-0325 13:09-0400Body mass index (BMI) [Ratio]33.29 kg/s4DyhkopGanga Hernandez MD Work Phone: [facility] SystemQlfezxdqdb04-63-8037 13:09-0400Body hbjtny293.23 kgGanga Hernandez MD Work Phone: [facility] SystemJcfqjzmzum73-55-9677 13:09-0400Diastolic blood xosqganc54 mm[Hg]Ganga Hernandez MD Work Phone: [facility] SystemUwheejdoun44-19-6769 13:09-0400Heart rate85 /min Ganga Hernandez MD Work Phone: [address] [place], [place] [address]Gjtbqccwin63-23-7804 13:09-3550SlZ3% (BldA) [Mass fraction]98 %Ganga Hernandez MD Work Phone: [facility] SystemCivsudxzqf27-65-0368 13:09-0400Systolic blood qrwsxivg369 mm[Hg]Ganga Hernandez MD Work Phone: [phone] [place], [place] [address]Rcmftcixns00-20-1042 15:46-0400Body temperature 98.1 [degF]Ganga Hernandez MD Work Phone: [phone] [place], [place] 9583003-13-2025 15:46-0400 Diastolic blood kiddmrzu75 mm[Hg]Ganga Hernandez MD Work Phone: [phone]03-13-2025 15:46-0400 Heart rate66 /minGanga Hernandez MD Work Phone: [phone] [place], [place] 9583003-13-2025 15:46-0400 Respiratory rate16 /minGanga Hernandez MD Work Phone: [phone] [place], [place] 9583003-13-2025 15:46-0400 SaO2% (BldA) [Mass fraction]95 %Ganga Hernandez MD Work Phone: [facility]03-13-2025 15:46-0400 Systolic blood pkacznmc837 mm[Hg]Ganga Hernandez MD Work Phone: [phone]03-13-2025 06:00-0400 Body scpkie479.5 kgGanga Hernandez MD Work Phone: [phone]03-11-2025 19:59-0400 Body hkzwad173.34 Ja Hernandez MD Work Phone: [address] [place], [place] 4104303-11-2025 19:59-0400 Body chrwjyvteof08.8 [degF]Ganga Hernandez MD Work Phone: [phone] [place], [place] 9583003-11-2025 19:59-0400 Body bupwfn738.5 kgGanga Hernandez MD Work Phone: [phone] [place], [place] 4104303-11-2025 19:59-0400 Diastolic blood mm[Hg]Ganga Hernandez MD Work Phone: [phone]03-11-2025 19:59-0400 Heart rate71 /minGanga Hernandez MD Work Phone: 1(939)[address]03-11-2025 19:59-0400 Respiratory rate18 /minGanga Hernandez MD Work Phone: 1(782)1-[address] [place], [place] 9583003-11-2025 19:59-0400 SaO2% (BldA) [Mass fraction]98 %Ganga Hernandez MD Work Phone: [address] [place], [place] 4104303-11-2025 19:59-0400 Systolic blood ahqpggqv919 mm[Hg]Ganga Hernandez MD Work Phone: 1(655)026-[address] [place], [place] 9583001-08-2025 12:59-0500 Body xatybe823.8 cmGina Garrickti [employer]ICKEL PLATER Work Phone: [facility]2754 12:59-0500Body mass index (BMI) [Ratio]34.87 kg/m2Gina Garrickti [employer]ICKEL PL[employer] Work Phone: [facility] HospitalPzoptdjfev16-49-8693 12:59-0500Body jzyjbn493.22 kgGina Garrickti NICKEL PLATER Work Phone: noSaint [facility] HospitalRonpeylxjq16-19-6075 12:59-0500Diastolic blood cnauuhhz29 mm[Hg]Soraya Garrickti NICKEL PLATER Work Phone: noSaint [facility] HospitalRipeeidsrz22-16-4208 12:59-0500Heart rate89 /min Sorayaana luisa Hawk NICKEL PLATER Work Phone: noSaint [facility] HospitalTjxtzgsrro91-12-1175 12:59-9432AsD5% (BldA) [Mass fraction]97 %Soraya Hawk NICKEL PLATER Work Phone: noSaint [facility] HospitalSeiydjbdgr50-01-7369 12:59-0500Systolic blood awsxlmkq899 mm[Hg]Soraya Hawk NICKEL PLATER Work Phone: noSaint [facility] HospitalOzpgzakqro04-17-9223 08:57-0500Body alxkkm164.3 [facility] [address] [place], [place] 5004911-14-2024 08:57-0500Body mass index (BMI) [Ratio] 33.18 kg/m2Pfo [address] [place], [place] 5004911-14-2024 08:57-0500Body okbnnydaccx23.5 [degF]Pfo [address] [place], [place] 5004911-14-2024 08:57-0500Body .[address] [place], [place] 5004911-14-2024 08:57-0500Diastolic blood yeacwkab37 mm[Hg] Pfo [address] [place], [place] 5004911-14-2024 08:57-0500Heart rate85 /minPfo [address] [place], [place] 5004911-14-2024 08:57-0500Respiratory rate16 /minPfo [address] [place], [place] 5004911-14-2024 08:57-7643TgX4% (BldA) [Mass fraction]94 %[address]11-14-2024 08:57-0500Systolic blood rdyhgiqn221 mm[Hg]Pfo [address] [place], [place] 5004911-12-2024 08:57-0500Body gbmwee767.3 [facility] [address] [place], [place] 9365311-12-2024 08:57-0500Body mass index (BMI) [Ratio]33.35 kg/m2Pfo 1 [facility]11-12-2024 08:57-0500Body jmsycnywgyp01.1 [degF]Pfo 1 [facility]11-12-2024 08:57-0500Body axnibo457.[address] [place], [place] 9365311-12-2024 08:57-0500Diastolic blood yjsieqfz85 mm[Hg]Pfo 1 [facility]11-12-2024 08:57-0500Heart rate78 /minPfo [address] [place], [place] 9365311-12-2024 08:57-0500Respiratory rate16 /minPfo [address] [place], [place] 9365311-12-2024 08:57-7657VcG9% (BldA) [Mass fraction]97 %Pfo [address] [place], [place] 9365311-12-2024 08:57-0500Systolic blood ljkasdwb268 mm[Hg]Pfo [address] [place], [place] 9365311-11-2024 09:10-0500Body pjtwnmecjfi87.7 [degF]Pfo [address] [place], [place] 9365311-11-2024 09:10-0500Diastolic blood yeqvvayd89 mm[Hg]Pfo 1 [facility]11-11-2024 09:10-0500Heart rate82 /minPfo [address] [place], [place] 9365311-11-2024 09:10-0500Respiratory rate16 /minPfo [address] [place], [place] 9365311-11-2024 09:10-5579RpH9% (BldA) [Mass fraction]96 %Pfo [address] [place], [place] 9365311-11-2024 09:10-0500Systolic blood mm[Hg]Pfo [address] [place], [place] 9365311-08-2024 09:51-0500Body .[address] [place], [place] 6056111-08-2024 09:51-0500Body mass index (BMI) [Ratio]33.65 kg/m2Pfo 5 [facility]11-08-2024 09:51-0500Body cuuoajqhrvr33.7 [degF]Pfo 5 [facility]11-08-2024 09:51-0500Body .[address] [place], [place] 6056111-08-2024 09:51-0500Diastolic blood qqxaecsg42 mm[Hg]Pfo 5 [facility]11-08-2024 09:51-0500Heart rate77 /minPfo [address] [place], [place] 6056111-08-2024 09:51-0500Respiratory rate16 /minPfo [address] [place], [place] 6056111-08-2024 09:51-4339AxK8% (BldA) [Mass fraction]98 %Pfo [address] [place], [place] 6056111-08-2024 09:51-0500Systolic blood xcmajxao882 mm[Hg]Pfo [address] [place], [place] 6056111-07-2024 08:58-0500Body qeqeoz735.3 [facility] [address] [place], [place] 5085411-07-2024 08:58-0500Body mass index (BMI) [Ratio]33.63 kg/m2Pfo 2 [facility]11-07-2024 08:58-0500Body kxasvgezvlo84.3 [degF]Pfo 2 [facility]11-07-2024 08:58-0500Body kzoqba702.[address] [place], [place] 5085411-07-2024 08:58-0500Diastolic blood wcduxlmt02 mm[Hg]Pfo 2 [facility]11-07-2024 08:58-0500Heart rate80 /minPfo [address] [place], [place] 5085411-07-2024 08:58-0500Respiratory rate16 /minPfo [address] [place], [place] 5085411-07-2024 08:58-7633XgA8% (BldA) [Mass fraction]98 %Pfo [address] [place], [place] 5085411-07-2024 08:58-0500Systolic blood mm[Hg]Pfo [address] [place], [place] 5085411-06-2024 09:10-0500Body mnhczu785.3 [facility] [address] [place], [place] 5085411-06-2024 09:10-0500Body mass index (BMI) [Ratio]33.63 kg/m2Pfo 2 [facility]11-06-2024 09:10-0500Body dmgtallkopm14.81 [degF]Pfo 2 [facility]11-06-2024 09:10-0500Body .[address] [place], [place] 5085411-06-2024 09:10-0500Diastolic blood hecqustk34 mm[Hg]Pfo 2 [facility]11-06-2024 09:10-0500Heart rate80 /minPfo [address] [place], [place] 5085411-06-2024 09:10-0500Respiratory rate16 /minfo [address] [place], [place] 5085411-06-2024 09:10-7928YfQ4% (BldA) [Mass fraction]99 %Pfo [address] [place], [place] 5085411-06-2024 09:10-0500Systolic blood fggviplw013 mm[Hg]Pfo [address] [place], [place] 5085411-05-2024 09:10-0500Body denfbs906.3 [facility] [address] [place], [place] 5085411-05-2024 09:10-0500Body mass index (BMI) [Ratio]33.63 kg/m2Pfo 2 [facility]11-05-2024 09:10-0500Body cjalcdbxqsh89.9 [degF]Pfo 2 [facility]11-05-2024 09:10-0500Body bfmyld730.[address] [place], [place] 5085411-05-2024 09:10-0500Diastolic blood vojpjfxz92 mm[Hg]Pfo 2 [facility]11-05-2024 09:10-0500Heart rate80 /minPfo [address] [place], [place] 5085411-05-2024 09:10-0500Respiratory rate18 /minPfo [address] [place], [place] 5085411-05-2024 09:10-9476TfA3% (BldA) [Mass fraction]98 %Pfo [address] [place], [place] 5085411-05-2024 09:10-0500Systolic blood tuklovhk368 mm[Hg]Pfo [address] [place], [place] 5085411-04-2024 09:26-0500Body adgfmc821.[address]11-04-2024 09:26-0500Body mass index (BMI) [Ratio]33.35 kg/m2Pfo 2 [facility]11-04-2024 09:26-0500Body .81 [degF]Pfo 2 [facility]11-04-2024 09:26-0500Body fuyncc331.[address] [place], [place] 5085411-04-2024 09:26-0500Diastolic blood mm[Hg]Pfo 2 [facility]11-04-2024 09:26-0500Heart rate89 /minPfo [address] [place], [place] 5085411-04-2024 09:26-0500Respiratory rate18 /minPfo [address] [place], [place] 5085411-04-2024 09:26-2979MkG9% (BldA) [Mass fraction]99 %[facility] 09:26-0500Systolic blood qmyijelo545 mm[Hg][facility]-01-2024 08:53-0400Body ytfwul249.[address] [place], [place] 9365311-01-2024 08:53-0400Body mass index (BMI) [Ratio]33.63 kg/m2Pfo 1 [facility]11-01-2024 08:53-0400Body fxgghzheeap69.5 [degF]Pfo 1 [facility]11-01-2024 08:53-0400Body nzxocp314.[address] [place], [place] 9365311-01-2024 08:53-0400Diastolic blood mwypsyza80 mm[Hg]Pfo 1 [facility]11-01-2024 08:53-0400Heart rate84 /minPfo [address] [place], [place] 9365311-01-2024 08:53-0400Respiratory rate16 /minPfo [address] [place], [place] 9365311-01-2024 08:53-4440FfG1% (BldA) [Mass fraction]100 %Pfo [address] [place], [place] 9365311-01-2024 08:53-0400Systolic blood iufydgzd823 mm[Hg]Pfo 1 [facility]10-31-2024 11:07-0400Body .8 cmSummclean southeast Workman PA Work Phone: [facility] SystemYwfwyewfqy35-09-0179 11:07-0400Body mass index (BMI) [Ratio]34.72 kg/z7Mtvhrs Workman PA Work Phone: [facility] SystemAheratrnax88-03-0748 11:07-0400Body ofosvu496.77 kgSummer Workman PA Work Phone: [facility] SystemOkjfnukcfn53-75-5432 11:07-0400Diastolic blood hzeokvbt12 mm[Hg]Summer Workman PA Work Phone: [facility] SystemJrwysmlaxp70-66-1405 11:07-0400Heart rate89 /min Summer Workman PA Work Phone: [facility] SystemCtfdtticjz02-51-2695 11:07-8234YcT1% (BldA) [Mass fraction]96 %Summer Workman PA Work Phone: [facility] SystemPvjjffagpd21-80-1622 11:07-0400Systolic blood pekzhpcj261 mm[Hg]Summer Workman PA Work Phone: [facility] SystemMsdgtyabrj59-60-2789 09:04-0400Body isrvph040.[address] [place], [place] 9365310-31-2024 09:04-0400Body mass index (BMI) [Ratio] 33.33 kg/m2Pfo [address] [place], [place] 9365310-31-2024 09:04-0400Body pdkypmrkaiw16.7 [degF]Pfo [address] [place], [place] 9365310-31-2024 09:04-0400Body hcyith426.[address] [place], [place] 9365310-31-2024 09:04-0400Diastolic blood mm[Hg] Pfo [address] [place], [place] 9365310-31-2024 09:04-0400Heart rate90 /minPfo [address] [place], [place] 9365310-31-2024 09:04-0400Respiratory rate16 /minPfo [address] [place], [place] 9365310-31-2024 09:04-4796NcL1% (BldA) [Mass fraction]98 %Pfo [address] [place], [place] 9365310-31-2024 09:04-0400Systolic blood dddrqlyl693 mm[Hg]Pfo [address] [place], [place] 9365310-30-2024 08:58-0400Body qztefv382.[address] [place], [place] 9365310-30-2024 08:58-0400Body mass index (BMI) [Ratio]33.35 kg/m2Pfo 1 [facility]10-30-2024 08:58-0400Body bnoshelknsb16.01 [degF]Pfo 1 [facility]10-30-2024 08:58-0400Body fbwuhv940.[address] [place], [place] 9365310-30-2024 08:58-0400Diastolic blood txbtigug33 mm[Hg]Pfo 1 [facility]10-30-2024 08:58-0400Heart rate88 /minPfo [address] [place], [place] 9365310-30-2024 08:58-0400Respiratory rate16 /minPfo [address] [place] 9365310-30-2024 08:58-0400Systolic blood nrvbgmer391 mm[Hg]Pfo [address] [place], [place] 9365310-29-2024 09:05-0400Body orqpvm470.[address] [place], [place] 9365310-29-2024 09:05-0400Body mass index (BMI) [Ratio]33.21 kg/m2Pfo 1 [facility]10-29-2024 09:05-0400Body njxlewziixn68.3 [degF]Pfo 1 [facility]10-29-2024 09:05-0400Body .[address] [place], [place] 9365310-29-2024 09:05-0400Diastolic blood hdlyguny79 mm[Hg]Pfo 1 [facility]10-29-2024 09:05-0400Heart rate74 /minPfo [address] [place], [place] 9365310-29-2024 09:05-0400Respiratory rate16 /minPfo [address] [place], [place] 9365310-29-2024 09:05-0512TgI1% (BldA) [Mass fraction]99 %Pfo [address] [place], [place] 9365310-29-2024 09:05-0400Systolic blood ednyeswe075 mm[Hg]Pfo [address] [place], [place] 9365310-28-2024 09:15-0400Body vhrseh882.[address] [place], [place] 9365310-28-2024 09:15-0400Body mass index (BMI) [Ratio]33.07 kg/m2Pfo 1 [facility]10-28-2024 09:15-0400Body ivbweuzcshp67.3 [degF]Pfo 1 [facility]10-28-2024 09:15-0400Body .[address] [place], [place] 9365310-28-2024 09:15-0400Diastolic blood huxvwbpr95 mm[Hg]Pfo 1 [facility]10-28-2024 09:15-0400Heart rate69 /minPfo [address] [place], [place] 9365310-28-2024 09:15-0400Respiratory rate18 /minPfo [address] [place], [place] 9365310-28-2024 09:15-2707QgD0% (BldA) [Mass fraction]99 %Pfo [address] [place], [place] 9365310-28-2024 09:15-0400Systolic blood jjsabrgs030 mm[Hg]Pfo [address] [place], [place] 9365310-25-2024 12:00-0400Body awjaqyzawni52.9 [degF]MD Ganga Hernandez Work Phone: [facility]10-25-2024 12:00-0400 Diastolic blood dibqfxqn87 mm[Hg]MD Ganga Hernandez Work Phone: [facility]10-25-2024 12:00-0400 Heart rate76 /minMD Ganga Hernandez Work Phone: [facility]10-25-2024 12:00-0400 Respiratory rate16 /minMD Ganga Hernandez Work Phone: [facility]10-25-2024 12:00-0400 SaO2% (BldA) [Mass fraction]98 %MD Ganga Hernandez Work Phone: [facility]10-25-2024 12:00-0400 Systolic blood qgepbhkd250 mm[Hg]MD Ganga Hernandez Work Phone: [facility]10-25-2024 05:09-0400 Body dgvune431.6 kgMD Ganga Hernandez Work Phone: [facility]10-22-2024 15:34-0400 Body juvgbq866.07 cmMD Ganga Hernandez Work Phone: [facility]10-20-2024 20:30-0400 Diastolic blood lbezgknh65 mm[Hg]MD Ganga Hernandez Work Phone: [facility]10-20-2024 20:30-0400 Heart jewc977 /minMD Ganga Hernandez Work Phone: [facility]10-20-2024 20:30-0400 Respiratory rate18 /minMD Ganga Hernandez Work Phone: [facility]10-20-2024 20:30-0400 SaO2% (BldA) [Mass fraction]97 %MD Ganga Hernandez Work Phone: [facility]10-20-2024 20:30-0400 Systolic blood zxitimfo350 mm[Hg]MD Ganga Hernandez Work Phone: [facility]10-20-2024 20:05-0400 Body olnvvfufxel61.8 [degF]MD Ganga Hernandez Work Phone: [facility]10-20-2024 18:13-0400 Body .07 cmMD Lundy Edil Work Phone: [facility]10-20-2024 18:13-0400 Body aphrsg529 kgGA Ganga Edil Work Phone: [facility]10-03-2024 08:14-0400 Body fzsfap333.[address] [place], [place] 5085410-03-2024 08:14-0400Body mass index (BMI) [Ratio]33.07 kg/m[address]10-03-2024 08:14-0400 Body ehjyledwfqi81.39 [degF][address]10-03-2024 08:14-0400 Body jsvtip522.[address]10-03-2024 08:14-0400Diastolic blood twrzbiwb46 mm[Hg][address]10-03-2024 08:14-0400Heart rate80 /minP[address]10-03-2024 08:14-0400Respiratory rate16 /minPfo [address] [place], [place] 5085410-03-2024 08:14-6032QlI1% (BldA) [Mass fraction]97 %[address]10-03-2024 08:14-0400Systolic blood oyktotgk214 mm[Hg][address]10-02-2024 14:00-0400Body mass index (BMI) [Ratio]33.86 kg/r3EwffuhhTanja Sullivan NP Work Phone: [facility] SystemMihsfulqne93-28-4421 14:00-0400Body temperature 97.3 [degF]Tanja Sullivan NICKEL PLATER Work Phone: [facility] SystemBlnjgdxuab25-68-0194 14:00-0400Body eixinq168.05 kgTanja Sullivan NICKEL PLATER Work Phone: [facility] SystemAdjnvwhonj23-92-2921 14:00-0400Diastolic blood hzceewpp39 mm[Hg]Tanja Sullivan NICKEL PLATER Work Phone: [facility] SystemAaxfvwykta58-08-2772 14:00-5270IbQ1% (BldA) [Mass fraction]96 %Tanja Sullivan NICKEL PLATER Work Phone: [facility] SystemZwlesztywq76-13-7651 14:00-0400Systolic blood lcpsqouy91 mm[Hg]Tanja Sullivan NICKEL PLATER Work Phone: [facility] SystemIastsiqruv90-73-7833 09:35-0400Body fzyvab031.[address] [place], [place] 6056110-02-2024 09:35-0400Body mass index (BMI) [Ratio] 33.07 kg/m2fo [address] [place], [place] 6056110-02-2024 09:35-0400Body temperature 97.81 [degF]Pf[address]10-02-2024 09:35-0400Body xnuyqp265.5 kg Pf[address]10-02-2024 09:35-0400Diastolic blood ugtablzl76 mm[Hg]Pfo [address] [place], [place] 6056110-02-2024 09:35-0400Heart rate80 /minPfo [address] [place], [place] [address]Xxgimzbvox82-66-1747 09:35-0400Respiratory rate16 /minPfo [address] [place], [place] 6056110-02-2024 09:35-7844EbI7% (BldA) [Mass fraction]94 %[address]10-02-2024 09:35-0400Systolic blood ivfnzxnr056 mm[Hg]Pfo [address] [place], [place] 7440110-01-2024 11:18-0400Blood Pressure LocationJEABRAZO [facility]10-01-2024 11:18-0400Diastolic blood kgxarabm87 mm[Hg]PHILIPPE HOU [facility]10-01-2024 11:18-0400Heart rate82 /minPHILIPPE HOU [facility]10-01-2024 11:18-0400Systolic blood qbnjcnev356 mm[Hg]PHILIPPE HOU [facility]10-01-2024 09:12-0400Body usgibw867.[address] 07-21-2024 09:12-0400Body mass index (BMI) [Ratio]32.93 kg/m[address]10-01-2024 09:12-0400Body cbvuqgirjfz35.01 [degF][address]10-01-2024 09:12-0400Body rceuup008.[address] [place], [place] 6056110-01-2024 09:12-0400Diastolic blood blpbypag35 mm[Hg][address]10-01-2024 09:12-0400Heart rate89 /minPfo [address] [place] [address] 07-21-2024 09:12-0400Respiratory rate16 /minPfo [address] [place] [address] 07-21-2024 09:12-2196JeC1% (BldA) [Mass fraction]95 %[address]10-01-2024 09:12-0400Systolic blood ycgovvql20 mm[Hg][address]09-30-2024 08:32-0400Body vdzdit493.[address] 07-20-2024 08:32-0400Body mass index (BMI) [Ratio]32.93 kg/m285 [address]09-30-2024 08:32-0400Body aapzfxzbbhm56.1 [degF][address]09-30-2024 08:32-0400Body .[address] [place], [place] 6056109-30-2024 08:32-0400Diastolic blood ddfjcytm98 mm[Hg]Pf[address]09-30-2024 08:32-0400Heart rate79 /minPfo [address] [place] [address] 07-20-2024 08:32-0400Respiratory rate18 /minPfo [address] [place] [address] 07-20-2024 08:32-4418EaI9% (BldA) [Mass fraction]97 %Pf[address]09-30-2024 08:32-0400Systolic blood hqdhppak483 mm[Hg][address]09-27-2024 07:58-0400Body lservt690.[address]09-27-2024 07:58-0400Body mass index (BMI) [Ratio]32.65 kg/m2fo [address] [place], [place] 7440109-27-2024 07:58-0400Body dodbykhblti38.39 [degF]Pfo [address] [place], [place] 7440109-27-2024 07:58-0400Body okzkrz055.[address] [place], [place] 6056109-27-2024 07:58-0400Diastolic blood anzbvltv29 mm[Hg]Pfo [address] [place], [place] 7440109-27-2024 07:58-0400Heart rate66 /minP[address]09-27-2024 07:58-0400Respiratory rate18 /minPfo [address] [place], [place] 6056109-27-2024 07:58-6599EwO6% (BldA) [Mass fraction]96 %[address]09-27-2024 07:58-0400Systolic blood mm[Hg][address]09-26-2024 08:48-0400Body vcgwid667.[address]09-26-2024 08:48-0400Body mass index (BMI) [Ratio]32.65 kg/m2fo [address] [place], [place] 7440109-26-2024 08:48-0400Body pjknylhspay60.7 [degF]Pfo 5 [facility]09-26-2024 08:48-0400Body .[address] [place], [place] 6056109-26-2024 08:48-0400Diastolic blood kncyekeq71 mm[Hg]Pfo 5 [facility]09-26-2024 08:48-0400Heart rate79 /minPfo [address] [place], [place] 6056109-26-2024 08:48-0400Respiratory rate18 /minPfo [address] [place], [place] 6056109-26-2024 08:48-0972AaZ3% (BldA) [Mass fraction]95 %Pfo [address] [place], [place] 6056109-26-2024 08:48-0400Systolic blood nqqclsyi790 mm[Hg]Pfo [address] [place], [place] 6056109-25-2024 10:11-0400Body byjwtu112.[address] [place], [place] 5004909-25-2024 10:11-0400Body mass index (BMI) [Ratio]32.92 kg/m2Pfo 4 [facility]09-25-2024 10:11-0400Body .01 [degF]Pfo 4 [facility]09-25-2024 10:11-0400Body viagsg959.[address] [place], [place] 5004909-25-2024 10:11-0400Diastolic blood xrgqmivn39 mm[Hg]Pfo 4 [facility]09-25-2024 10:11-0400Heart rate75 /minPfo [address] [place], [place] 5004909-25-2024 10:11-0400Respiratory rate18 /minPfo [address] [place], [place] 5004909-25-2024 10:11-9610YrS9% (BldA) [Mass fraction]95 %Pfo [address] [place], [place] 5004909-25-2024 10:11-0400Systolic blood tprpvyfo081 mm[Hg]Pfo [address] [place], [place] 5004909-24-2024 16:00-0400Body caetwsfsrqb22.3 [degF]MD Ganga Hernandez Work Phone: [facility]09-24-2024 16:00-0400 Diastolic blood mm[Hg]MD Ganga Hernandez Work Phone: [facility]09-24-2024 16:00-0400 Heart rate65 /minMD Ganga Hernandez Work Phone: [facility]09-24-2024 16:00-0400 Respiratory rate20 /minMD Ganga Hernandez Work Phone: [facility]09-24-2024 16:00-0400 SaO2% (BldA) [Mass fraction]96 %MD Ganga Hernandez Work Phone: [facility]09-24-2024 16:00-0400 Systolic blood xyrfmnys574 mm[Hg]MD Ganga Hernandez Work Phone: [facility]09-24-2024 05:20-0400 Body .6 kgGA Ganga Hernandez Work Phone: [facility]09-20-2024 11:58-0400 Body tmjogn180.34 cmGA Ganga Hernandez Work Phone: [facility]09-17-2024 13:03-0400 Blood Pressure LocationPatrick BayPackets [facility]09-17-2024 13:03-0400Diastolic blood sdkhguyh09 mm[Hg]Norris VINCENT [facility]09-17-2024 13:03-0400Heart rate69 /minPatrick VINCENT [facility]09-17-2024 13:03-0400Respiratory rate18 /minPatrick VINCENT [facility]09-17-2024 13:03-0400Systolic blood mm[Hg]Norris VINCENT [facility]08-28-2024 13:20-0400Body .8 cmGina Lettyaliti NICKEL PLATER Work Phone: [phone] [place], [place] [address]Ijnreqxdfp35-05-5276 13:20-0400Body mass index (BMI) [Ratio]34.44 kg/m2Gina Risaliti NICKEL PLATER Work Phone: [phone] [place], [place] [address]Efkpthjbhg37-12-3374 13:20-0400Body .86 kgGina Risaliti NICKEL PLATER Work Phone: [phone] [place], [place] 6773908-28-2024 13:20-0400Diastolic blood wumfmetm99 mm[Hg]Soraya Risaliti NICKEL PLATER Work Phone: [phone] [place], [place] 6773908-28-2024 13:20-0400Heart rate68 /min Soraya Risaliti NICKEL PLATER Work Phone: [phone] [place], [place] 6773908-28-2024 13:20-2340HuO9% (BldA) [Mass fraction]95 %Soraya Risaliti NICKEL PLATER Work Phone: [phone]08-28-2024 13:20-0400Systolic blood suuzrnch314 mm[Hg]Soraya Risaliti NICKEL PLATER Work Phone: [phone]07-16-2024 09:04-0400Body gcnkej534.34 cmMD Ganga Hernandez Work Phone: [facility]07-16-2024 09:04-0400 Body mishik191.41 kgMD Ganga Hernandez Work Phone: [facility]10-04-2023 11:45-0400 Diastolic blood hojjmylc70 mm[Hg]MD Ganga Hernandez Work Phone: [facility]10-04-2023 11:45-0400 Heart rate65 /minMD Ganga Hernandez Work Phone: [facility]10-04-2023 11:45-0400 Respiratory rate20 /minMD Ganga Hernandez Work Phone: [facility]10-04-2023 11:45-0400 SaO2% (BldA) [Mass fraction]97 %MD Ganga Hernandez Work Phone: [facility]10-04-2023 11:45-0400 Systolic blood fzjarbjs144 mm[Hg]MD Ganga Hernandez Work Phone: [phone]10-04-2023 08:17-0400 Body enjoxg538.8 cmMD Ganga Hernandez Work Phone: [phone] [place], [place] 9583010-04-2023 08:17-0400 Body spkrmozgzyd98.2 [degF]MD Ganga Hernandez Work Phone: [phone] [place], [place] 9583010-04-2023 08:17-0400 Body rveamo073.8 kgMD Ganga Hernandez Work Phone: [phone]09-23-2023 15:13-0400 Body haddwmzvqyz43.8 [degF]MD Ganga Hernandez Work Phone: [phone] [place], [place] 9583009-23-2023 15:13-0400 Diastolic blood uyizrszh82 mm[Hg]MD Ganga Hernandez Work Phone: [address] [place], [place] [id number] 15:13-0400 Heart rate77 /minMD Ganga Hernandez Work Phone: [phone] [place], [place] 9583009-23-2023 15:13-0400 Respiratory rate16 /minMD Ganga Hernandez Work Phone: [facility]09-23-2023 15:13-0400 SaO2% (BldA) [Mass fraction]95 %MD Ganga Hernandez Work Phone: [facility]09-23-2023 15:13-0400 Systolic blood mm[Hg]MD Ganga Hernandez Work Phone: [facility]09-22-2023 11:15-0400 Body dwlbev554.34 cmMD Ganga Hernandez Work Phone: [phone] [place], [place] 9583009-22-2023 05:57-0400 Body mausfx009.5 kgMD Ganga Hernandez Work Phone: [facility]08-18-2023 13:17-0400 Body gpesvr048.34 cmMD Ganga Hernandez Work Phone: [facility]08-18-2023 13:17-0400 Body azvfhwrxsfh22.5 [degF]MD Ganga Hernandez Work Phone: [facility]08-18-2023 13:17-0400 Body kgGA Ganga Hernandez Work Phone: [address] [place], [place] [id number] 13:17-0400 Diastolic blood ndugnuyd91 mm[Hg]MD Ganga Hernandez Work Phone: [facility]08-18-2023 13:17-0400 Heart rate72 /minGA Ganga Hernandez Work Phone: [facility]08-18-2023 13:17-0400 SaO2% (BldA) [Mass fraction]99 %MD Ganga Hernandez Work Phone: [facility]08-18-2023 13:17-0400 Systolic blood bioyqnfm046 mm[Hg]MD Ganga Hernandez Work Phone: [facility]06-22-2023 11:24-0400 Body ogovvl310.07 cmRobert [facility] Work Phone: [phone]-Ycmqk [facility] [address] DO Work Phone: 1(397) 332-908206-22-2023 11:24-0400Body mass index (BMI) [Ratio]31.4 kg/t9Isyptj Thomas Renfrew Work Phone: [phone]) [phone]-Rbqqc [facility] [address] DO Work Phone: 1(788) 943-688406-22-2023 11:24-0400Body surface area Derived from formula2.19 m2Tqnmce [facility] Work Phone: [phone]) [phone]-Hxxgw [facility] [address] DO Work Phone: 1(157) 403-754806-22-2023 11:24-0400Body eqpsym919.7 kgRobert L Hill Work Phone: [phone]-Kejxe [facility] [address] DO Work Phone: 1(933) 584-969406-22-2023 11:24-0400Diastolic blood tiotmmya76 mm[Hg] Ganga Hernandez Work Phone: [phone]-Srkmi [facility] [address] DO Work Phone: 1(227) 156-237806-22-2023 11:24-0400Heart rate66 /minRoberasmo Hernandez Work Phone: [phone]-Zuutb [facility] [address] DO Work Phone: 1([phone]) 268-576206-22-2023 11:24-0400Systolic blood xdapdekg702 mm[Hg] Ganga Hernandez Work Phone: [phone]-[facility] [address] DO Work Phone: 1(569) 265-310404-19-2023 16:00-0400Diastolic blood mm[Hg] MD Ganga Hernandez Work Phone: [facility]04-19-2023 16:00-0400 Heart rate71 /min Ganga Hernandez Work Phone: [facility]04-19-2023 16:00-0400 Respiratory rate18 /min Ganga Edil Work Phone: [facility]04-19-2023 16:00-0400 SaO2% (BldA) [Mass fraction]94 %MD Ganga Hernandez Work Phone: [facility]04-19-2023 16:00-0400 Systolic blood uxhuexze292 mm[Hg]MD Ganga Hernandez Work Phone: [facility]04-19-2023 11:44-0400 Body ubtdsqhkgdf79.1 [degF]MD Ganga Hernandez Work Phone: [facility]04-19-2023 03:28-0400 Body .6 kgMD Ganga Hernandez Work Phone: [facility]04-18-2023 21:02-0400 Body .8 cmMD Ganga Hernandez Work Phone: [facility]12-22-2022 16:00-0500 Body crmsfe112.34 cmSrangel Castañeda Other [facility]: [place] Other 12-22-2022 16:00-0500Body mass index (BMI) [Ratio] 33.05 kg/q4Anfapy Garry Other [place] [facility]: [place] Other 12-22-2022 16:00-0500Body mziiai097.5 kgShalexisleo Castañeda Other [facility]: [place] Other 12-22-2022 16:00-0500Diastolic blood ggkxajvc97 mm[Hg] Brandon Castañeda Other [place] [facility]: [place] Other 12-22-2022 16:00-7885ZwW3% (BldA) [Mass fraction]96 % Brandon Castañeda Other [place] [facility]: [place] Other 12-22-2022 16:00-0500Systolic blood ouanrbwy548 mm[Hg] Brandon Castañeda Other [facility]: [place] Other [id number] 10:33-0500Body ulaycc475.34 cmMD Ganga Hernandez Work Phone: [facility]12-19-2022 10:33-0500 Body fqiwmn251.3 kgMD Ganga Hernandez Work Phone: [facility]12-19-2022 10:33-0500 Diastolic blood wolxijgt73 mm[Hg] Ganga Hernandez Work Phone: [facility]12-19-2022 10:33-0500 Heart rate68 /minMD Ganga Hernandez Work Phone: [facility]12-19-2022 10:33-0500 Respiratory rate18 /min Ganga Hernandez Work Phone: [facility]12-19-2022 10:33-0500 SaO2% (BldA) [Mass fraction]96 %MD Ganga Hernandez Work Phone: [facility]12-19-2022 10:33-0500 Systolic blood nlgoztlw240 mm[Hg]MD Ganga Hernandez Work Phone: [facility]12-14-2022 19:57-0500 Body eqtdqoajtio65.8 [degF]MD Ganga Hernandez Work Phone: [facility]12-14-2022 19:57-0500 Diastolic blood wqehcyxg05 mm[Hg]MD Ganga Hernandez Work Phone: [facility]12-14-2022 19:57-0500 Heart rate76 /minMD Ganga Hernandez Work Phone: [facility]12-14-2022 19:57-0500 Respiratory rate16 /minMD Ganga Hernandez Work Phone: [facility]12-14-2022 19:57-0500 SaO2% (BldA) [Mass fraction]98 %MD Ganga Hernandez Work Phone: [facility]12-14-2022 19:57-0500 Systolic blood ixsoxudb455 mm[Hg]MD Ganga Hernandez Work Phone: [facility]12-14-2022 05:44-0500 Body dvxboy238.8 kgMD Ganga Hernandez Work Phone: [facility]12-13-2022 15:59-0500 Body kxonrz622.34 cmMD Ganga Hernandez Work Phone: [facility]12-13-2022 01:52-0500 Body ajfyeo364.34 cmMD Ganga Hernandez Work Phone: [facility]12-13-2022 01:52-0500 Body igofaavkhef94.6 [degF]MD Ganga Hernandez Work Phone: [facility]12-13-2022 01:52-0500 Body dvpzyq182.9 kgMD Ganga Hernandez Work Phone: [facility]12-13-2022 01:52-0500 Diastolic blood jfetcyyk72 mm[Hg]MD Ganga Hernandez Work Phone: [facility]12-13-2022 01:52-0500 Heart rate77 /minMD Ganga Hernandez Work Phone: [facility]12-13-2022 01:52-0500 Respiratory rate16 /minMD Ganga Hernandez Work Phone: [facility]12-13-2022 01:52-0500 SaO2% (BldA) [Mass fraction]98 %MD Ganga Hernandez Work Phone: [facility]12-13-2022 01:52-0500 Systolic blood mm[Hg]MD Ganga Hernandez Work Phone: [facility]11-09-2022 14:00-0500 Body .34 cmSrangel Castañeda Other [facility]: [place] Other 11-09-2022 14:00-0500Body mass index (BMI) [Ratio] 32.35 kg/b9MlgspoBrandon Castañeda Other [facility]: [place] Other 11-09-2022 14:00-0500Body .24 kgBrandon Castañeda Other [facility] [place] Other 11-09-2022 14:00-0500Diastolic blood ejaqunkj06 mm[Hg] Brandon Castañeda Other [place] [facility]: [place] Other 11-09-2022 14:00-7492ScF9% (BldA) [Mass fraction]98 % Brandon Castañeda Other [place] [facility]: [place] Other 11-09-2022 14:00-0500Systolic blood mm[Hg] Brandon Castañeda Other [place] [facility]: [place] Other 10-06-2022 12:25-0400Diastolic blood vmflhxer11 mm[Hg] [employer] Phone: [phone]-[facility]10-06-2022 12:25-0400 Heart rate79 /Infectious Phone: [phone] [place], [place] 3630310-06-2022 12:25-0400 Respiratory rate14 /Infectious Phone: [phone])428-[address] [place], [place] 3630310-06-2022 12:25-0400 SaO2% (BldA) [Mass fraction]95 %[employer] Phone: [phone] [place], [place] 3630310-06-2022 12:25-0400 Systolic blood bniryafp824 mm[Hg][employer] Phone: [phone] [address]10-06-2022 10:54-0400 Body hokuhkmezml62.9 [degF][employer] Phone: [phone])774-[address] [place], [place] 3630310-06-2022 10:54-0400 Inhaled oxygen flow rate10 L/Infectious Phone: [phone] [place], [place] 3630310-06-2022 08:34-0400 Body uuxozj820.34 cmSHELM [employer] Phone: [phone] [place], [place] 3630310-06-2022 08:34-0400 Body mass index (BMI) [Ratio]30.7 kg/w2Wshtwrdm [employer] Phone: [phone] [place], [place] 3630310-06-2022 08:34-0400 Body uhvsna56.79 kgSerchestnut hill hospital [employer] Work Phone: [phone] [place], [place] 3630308-26-2022 15:15-0400 Diastolic blood mm[Hg]Services [employer] Work Phone: [phone] [address]08-26-2022 15:15-0400 Heart rate82 /[facility] [employer] Work Phone: [phone] [address]08-26-2022 15:15-0400 Respiratory rate20 /[facility] [employer] Work Phone: [phone] [address]08-26-2022 15:15-0400 SaO2% (BldA) [Mass fraction]95 %Services [employer] Work Phone: [phone] [address]08-26-2022 15:15-0400 Systolic blood mm[Hg]Services [facility] [employer] Work Phone: [phone] [place], [place] 3630308-26-2022 14:49-0400 Body bjcvux481.8 cmSnewyork-pres[facility] [employer] Work Phone: [phone] [address]08-26-2022 14:49-0400 Body mass index (BMI) [Ratio]31.5 kg/y4Ppazgarj [employer] Work Phone: [phone] [place], [place] 3630308-26-2022 14:49-0400 Body .79 kgSerchestnut hill hospital [employer] Work Phone: [phone] [address]08-26-2022 14:45-0400 Inhaled oxygen flow rate8 L/[facility] [employer] Work Phone: [phone] [address]08-26-2022 11:59-0400 Body cclpbqhffuc30.1 [degF]Services [employer] Work Phone: [phone] [address]08-19-2022 10:20-0400 Body mmlfio810.34 cmDasanna Henry Other [place] [facility]: [place] Other 08-19-2022 10:20-0400Body mass index (BMI) [Ratio] 33.89 kg/m2Dale Henry Other [employer] Other 08-19-2022 10:20-0400Body tslbxi386.22 kgDale Henry Other [employer] Other 08-04-2022 13:38-0400Diastolic blood lwyucury68 mm[Hg] [employer] Phone: [facility]08-04-2022 13:38-0400 Heart rate70 /Infectious Phone: [phone]-[facility] [place] [facility]Med[facility]ive[facility]08-04-2022 13:38-0400 Respiratory rate16 /Infectious Phone: [phone])416-[facility] [place] [facility]Med[facility]ive[facility]08-04-2022 13:38-0400 SaO2% (BldA) [Mass fraction]95 %[employer] Phone: [phone] [place], [place] 3630308-04-2022 13:38-0400 Systolic blood fewxmeuf752 mm[Hg][employer] Phone: [phone] [place], [place] 3630308-04-2022 12:27-04[address] [facility]ary hospitalMadhouse Media Phone: [phone]-[facility] [place] [facility]Med[facility]iveT[facility]08-04-2022 12:27-0400 Body mass index (BMI) [Ratio]30.2 kg/z2BcwqgnqhCYTIMMUNE SCIENCES Phone: [phone]-[facility]08-04-2022 12:27-0400 Body vgzdal060 kgSerchestnut hill hospital [employer] Phone: [phone]-[facility] [place] [facility]ive[facility]08-04-2022 10:23-0400 Body ddjtdtzpsew41.3 [degF][employer] Phone: [phone]-[facility] [place] [facility]ive[facility]08-02-2022 11:10-0400 Blood Pressure [facility]Greghol[facility] 08-02-2022 11:10-0400Diastolic blood tczibrzf06 mm[Hg] Mark nAthony HEATH [facility] [place] 08-02-2022 11:10-0400Heart rate71 /minMark Anthony HEATH [facility] [place] 08-02-2022 11:10-0400Systolic blood mm[Hg] Mark Anthony HEATH [facility] [place] 07-30-2022 09:14-0400Diastolic blood tafdopuf73 mm[Hg] Services [employer] Work Phone: [phone]-[facility]-30-2022 09:14-0400 Heart rate66 /[employer] Work Phone: [phone]-[facility]07-30-2022 09:14-0400 Respiratory rate18 /minSWeOrder LTD Work Phone: 1([phone])818-[facility]07-30-2022 09:14-0400 SaO2% (BldA) [Mass fraction]95 %Services [employer] Work Phone: [facility]07-30-2022 09:14-0400 Systolic blood msqsezbz066 mm[Hg][employer] Phone: [facility]07-30-2022 07:28-0400 Body dnkwyh708.8 cmServices [employer] Work Phone: [facility]07-30-2022 07:28-0400 Body .79 kgServices [employer] Work Phone: [phone]-[facility]07-30-2022 07:27-0400 Body fuvwpceehkk00.5 [degF]Services [employer] Work Phone: [facility]06-30-2022 11:40-0400 Body .34 cmDale Henry Other [employer] Other 06-30-2022 11:40-0400Body mass index (BMI) [Ratio] 33.94 kg/m2Dale Henry Other [employer] Other 06-30-2022 11:40-0400Body iuaziv385.41 kgDale Henry Other [employer] Other 12-07-2021 15:40-0500Body jlcymw321.34 cmDale Henry Other [employer] Other 12-07-2021 15:40-0500Body mass index (BMI) [Ratio] 33.47 kg/m2Dale Carl Other [employer] Other 12-07-2021 15:40-0500Body jqgpya977.86 kgDale Henry Other [employer] Other 12-07-2021 15:40-0500Diastolic blood sfkxbtue45 mm[Hg] Mart Henry Other [employer] Other 12-07-2021 15:40-0500Systolic blood pwcjvqeo317 mm[Hg] Mart Henry Other [employer] Other Encounters Encounter DateEncounter TypeCare ProviderFacilityStart: 08-12-2025 End: 12-53-1435YujxxqUuvvhvln Savage LPN Work Phone: NOTC POPULATION HEALTHComment on above:MEGAN (generalized anxiety disorder); AnxietyStart: 08-10-2025 End: 55-20-4114NgucxdSzcjca L Hill MD Work Phone: noms POPULATION HEALTHComment on above:Primary osteoarthritis involving multiple jointsStart: 07-13-2025 End: 82-10-3356BgtezaKmgthg L Hill MD Work Phone: noms POPULATION HEALTHComment on above:History of TIA (transient ischemic attack)Primary osteoarthritis involving multiple joints Start: 06-11-2025 End: 20-83-3016AlvumdTjlyjy L Hill MD Work Phone: [facility] [place] [facility] MedicineComment on above:Type 2 diabetes mellitus with diabetic nephropathy, without long-term current use of insulin (HCC); Primary osteoarthritis involving multiple jointsStart: 05-16-2025 End: 36-29-2100MpxsdoUikbvn L Hill MD Work Phone: noms [place] [facility] MedicineComment on above:MEGAN (generalized anxiety disorder) ; AnxietyStart: 05-15-2025 End: 01-94-6094MwcwyoJqefei L Hill MD Work Phone: [facility] [place] [facility] MedicineComment on above: Primary osteoarthritis involving multiple jointsStart: 05-14-2025 End: 42-50-4601QohcrcBoapsn L Hill MD Work Phone: noms SWS IMComment on above:MEGAN (generalized anxiety disorder) ; AnxietyStart: 04-19-2025 End: 17-83-5897XbemyhVovbrh L Hill MD Work Phone: noms SWS IMComment on above:MEGAN (generalized anxiety disorder) ; AnxietyStart: 04-16-2025 End: 98-92-9276LzhawfWacadg L Hill MD Work Phone: noms SWS IMComment on above:Primary osteoarthritis involving multiple jointsStart: 03-18-2025 End: 03-76-2198LvwmgoIxjwpz L Hill MD Work Phone: noms SWS IMComment on above:Primary osteoarthritis involving multiple jointsStart: 03-17-2025 End: 04-94-6229PynywoYoldnm L Hill MD Work Phone: noms SWS IMComment on above:MEGAN (generalized anxiety disorder) (CMS/HCC); AnxietyStart: 02-14-2025 End: 70-40-3965KseyqoBuzajn L Hill MD Work Phone: noms SWS IMComment on above:MEGAN (generalized anxiety disorder) (CMS/HCC); AnxietyStart: 02-08-2025 End: 12-72-4804Ovhqvf outpatient visit 25 minutesGanga Hernandez MD Work Phone: noms SWS IMComment on above:Type 2 diabetes mellitus with diabetic nephropathy, without long-term current use of insulin (CMS/HCC) (Primary Dx); Stage 3a chronic kidney disease (HCC) (CMS/HCC); Essential hypertension (CMS/HCC); Primary osteoarthritis involving multiple joints; MEGAN (generalized anxiety disorder) (CMS/HCC); Primary insomnia; Monoclonal paraproteinemia; Restless legs; Microscopic hematuria; Metabolic dysfunction-associated steatotic liver disease (MASLD); Other fatigue; Pure hypercholesterolemia (CMS/HCC); Prostate cancer screeningStart: 02-08-2025 End: 99-07-4393EcgjscCugmog L Hill MD Work Phone: noms SWS IMComment on above:Primary osteoarthritis involving multiple jointsStart: 02-04-2025 End: 46-09-1840Bbzmvepy Result EncounterGina Jad Hawk [employer]ICKEL [employer]ATER Work Phone: noms External Department UnsolicitedStart: 02-04-2025 End: 60-55-4781Gndcdxrj Result EncounterGina Jad Hawk NICKEL PLATER Work Phone: noms External Department UnsolicitedStart: 12-30-2024 Non-patient / Non-visitGanga Hernandez MD Work Phone: [facility] Work Phone: Start: 12-29-2024 End: 67-81-2329extalawhpcJzvf M KaplerFacility:[facility] Start: 12-29-2024 End: 86-66-5396Hfkstcnzbn and management of inpatientGanga Hernandez MD Work Phone: [facility] [place] [facility] Work Phone: Start: 12-29-2024 End: 46-09-0032nesouqflrjo encounterGanga Hernandez MD Work Phone: [facility] Work Phone: Start: 12-15-2024 End: 51-47-7255XyfovjYsyzpc L Hill MD Work Phone: noms SWS IMComment on above:MEGAN (generalized anxiety disorder) (CMS/HCC); AnxietyStart: 12-11-2024 End: 53-32-0877FkudmrLwxvsj L Hill MD Work Phone: noms SWS IMComment on above:Primary osteoarthritis involving multiple jointsStart: 11-13-2024 End: 93-42-4266IyuqdcCjodeh L Hill MD Work Phone: noms SWS IMComment on above:MEGAN (generalized anxiety disorder) (CMS/HCC); AnxietyStart: 11-10-2024 End: 22-80-7728LtaklaKafbdq L Hill MD Work Phone: noms SWS IMComment on above:Primary osteoarthritis involving multiple jointsStart: 10-28-2024 End: 67-22-5583Mfvkix outpatient visit 25 minutesSoraya Hawk NP Work Phone: noms SWS IMComment on above:Type 2 diabetes mellitus with diabetic chronic kidney disease (CMS/HCC) (Primary Dx); Chronic kidney disease, stage 3a (HCC) (CMS/HCC); Essential hypertension (CMS/HCC); Pure hypercholesterolemia, unspecified (CMS/HCC); Hyperparathyroidism, unspecified (CMS/HCC); Disease of spinal cord, unspecified (CMS/HCC); Primary insomnia; Primary osteoarthritis involving multiple joints; MEGAN (generalized anxiety disorder) (CMS/HCC); Gastroesophageal reflux disease without esophagitis; Renal cyst; Monoclonal paraproteinemia; Peripheral neuropathy due to metabolic disorder (CMS/HCC); Vitamin D deficiency; History of kidney stones; History of pyelonephritisStart: 10-28-2024 End: 38-52-8300xhlrrlcmmiCWVN R RISALITINot AvailableStart: 10-15-2024 End: 39-89-0041sqjsescgaeRpbcckf P COOKFacility:EU [place]kyStart: 10-15-2024 End: 03-81-6449Ssufwri encounter procedureMark Anthony HEATH [facility] [place] Start: 10-09-2024 End: 13-04-2873DoddarOjbnqn Morelia WEI [facility] IMComment on above:Primary osteoarthritis involving multiple jointsStart: 09-08-2024 End: 72-04-3749veympdxsdlKtnjhzmz Miller GOLD [employer]IB GRINDER Work Phone: NOJZ POPULATION HEALTHStart: 09-03-2024 End: 59-03-6860raeckfdsexLIAZHavasu Regional Medical Center SystemComment on above: Urinary tract infection without hematuria, site unspecified (Primary Dx); PICC (peripherally inserted central catheter) flushStart: 09-01-2024 End: 04-39-5679epamesswdgPQVIHavasu Regional Medical Center SystemComment on above:PICC (peripherally inserted central catheter) flush (Primary Dx); Urinary tract infection without hematuria, site unspecifiedStart: 08-31-2024 End: 02-50-3344tkpodrfaubKXFPHavasu Regional Medical Center SystemComment on above: Urinary tract infection without hematuria, site unspecified (Primary Dx); PICC (peripherally inserted central catheter) flushStart: 08-28-2024 End: 03-97-2270idfrezmmhdXOFGHavasu Regional Medical Center SystemComment on above: Urinary tract infection without hematuria, site unspecified (Primary Dx); PICC (peripherally inserted central catheter) flushStart: 08-27-2024 End: 59-03-0209scwgqpcmapLMEHHavasu Regional Medical Center SystemComment on above: Urinary tract infection without hematuria, site unspecified (Primary Dx); PICC (peripherally inserted central catheter) flushStart: 08-26-2024 End: 66-22-9534sjjepjmyqhCMCMHavasu Regional Medical Center SystemComment on above: Urinary tract infection without hematuria, site unspecified (Primary Dx); PICC (peripherally inserted central catheter) flushStart: 08-25-2024 End: 16-62-2584lsixtbcwmgRLCUHavasu Regional Medical Center SystemComment on above: Urinary tract infection without hematuria, site unspecified (Primary Dx); PICC (peripherally inserted central catheter) flushStart: 08-24-2024 End: 24-08-8375tffvdkfapbGFXXHavasu Regional Medical Center SystemComment on above: Urinary tract infection without hematuria, site unspecified (Primary Dx)Start: 08-21-2024 End: 80-56-2024kchjhnlwbaQVSVMyrtue Medical CenterComment on above: Urinary tract infection without hematuria, site unspecified (Primary Dx); PICC (peripherally inserted central catheter) flushStart: 08-20-2024 End: 25-90-2195bsztmwzlatBKUYJI M WORKMANNot AvailableStart: 08-20-2024 End: 06-55-5954Zhnnqdmswzik care manage srvc 7 day dischargeScory GODDARD Work Phone: NOJY SWS IMComment on above:Acute pyelonephritis (Primary Dx); Stage 3a chronic kidney disease (HCC) ([facility]/HCC); Essential hypertension (CMS/HCC); Type 2 diabetes mellitus with diabetic nephropathy, without long-term current use of insulin (CMS/HCC); Atherosclerosis of aorta ([facility]/HCC)Start: 08-20-2024 End: 19-77-7479yioxqnbuotTADKHavasu Regional Medical Center SystemComment on above: Urinary tract infection without hematuria, site unspecified (Primary Dx); PICC (peripherally inserted central catheter) flushStart: 08-19-2024 End: 68-45-0008hdfjcwndryWHCVHavasu Regional Medical Center SystemComment on above: Urinary tract infection without hematuria, site unspecified (Primary Dx)Start: 08-18-2024 End: 99-02-2043yqobrybbhxTJEAHavasu Regional Medical Center SystemComment on above: Urinary tract infection without hematuria, site unspecified (Primary Dx); PICC (peripherally inserted central catheter) flushStart: 08-17-2024 End: 51-65-3100stlgvzekhdUELAMyrtue Medical CenterComment on above: Urinary tract infection without hematuria, site unspecified (Primary Dx)Start: 74-01-9181upywxagwukKINKBatson Children's Hospitaltart: 08-14-2024 End: 48-38-4750HvfhqcVnych Lyden LPNNOMS SWS IMComment on above:MEGAN (generalized anxiety disorder) (CMS/HCC); AnxietyStart: 08-09-2024 End: 88-46-2360Nylnjkzirt and management of inpatientMD Ganga Hernandez Work Phone: [facility] [place] [facility] Work Phone: Start: 08-04-2024 End: 73-96-1329DoxyypQyixoa L Hill MD Work Phone: noms SWS IMComment on above:MEGAN (generalized anxiety disorder) (CMS/HCC); Anxiety; Primary osteoarthritis involving multiple jointsStart: 07-23-2024 End: 36-72-8409igelxzbetmNMRLMyrtue Medical CenterComment on above: Urinary tract infection without hematuria, site unspecified (Primary Dx); PICC (peripherally inserted central catheter) flushStart: 07-22-2024 End: 36-21-3621Zmvenufpfoom care manage srvc 7 day dischargeTanja Sullivan NP Work Phone: noms [facility] IMComment on above:Nausea and vomiting, unspecified vomiting type (Primary Dx); Other fatigueStart: 07-22-2024 End: 95-45-6793qouiggadpuYYQPVU L HILLNot AvailableStart: 07-22-2024 End: 42-44-2780ffyknnjpnnQDPHMyrtue Medical CenterComment on above: Urinary tract infection without hematuria, site unspecified (Primary Dx); PICC (peripherally inserted central catheter) flushStart: 07-21-2024 End: 61-79-7346Neqsrkg encounter procedurePHILIPPE HOU [facility] start: 07-21-2024 End: 36-92-6553frvcxtwttpSANGHavasu Regional Medical Center SystemComment on above: Urinary tract infection without hematuria, site unspecified (Primary Dx); PICC (peripherally inserted central catheter) flushStart: 07-20-2024 End: 68-32-8130nkrdqwqbmgPMJLHavasu Regional Medical Center SystemComment on above: Urinary tract infection without hematuria, site unspecified (Primary Dx)Start: 07-18-2024 End: 26-07-9656cyalpwxnijE[address] - Medical OncologyComment on above:Urinary tract infection without hematuria, site unspecified (Primary Dx)Start: 77-79-6234afckecerdqVAJRBatson Children's Hospitaltart: 07-17-2024 End: 23-73-6940slailmenmnNPFNMyrtue Medical CenterComment on above: Urinary tract infection without hematuria, site unspecified (Primary Dx); PICC (peripherally inserted central catheter) flushStart: 07-16-2024 End: 91-95-7377ledhcabvreWHUZMyrtue Medical CenterComment on above: Urinary tract infection without hematuria, site unspecified (Primary Dx)Start: 07-15-2024 End: 60-79-8815etbznmnudxSOMGMyrtue Medical CenterComment on above: Urinary tract infection without hematuria, site unspecified (Primary Dx)Start: 07-14-2024 End: 07-61-2053Oivojt Gwendolyn Espana [facility] Work Phone: dnortheast missouri rural health networkamparo Guzman [facility] - Medical OncologyStart: 98-42-7326Jkw-patient / Non-visitMD Ganga Hernandez Work Phone: [facility] Infectious Disease Work Phone: Start: 07-09-2024 End: 10-11-0199Vcgcdwkeqh and management of inpatientMD Ganga Hernandez Work Phone: [facility] [place] [facility] Work Phone: start: 07-07-2024 End: 31-03-3780Qykkkno encounter procedurePatrick Jad VINCENT [facility] [place] Start: 06-17-2024 End: 02-26-8403Xmqxyyqtxhoj care manage srvc 14 day dischargeGina R Risaliti [employer] Work Phone: noMS SWS IMComment on above:Type 2 diabetes mellitus with diabetic nephropathy, without long-term current use of insulin (CMS/HCC) (Primary Dx); Stage 3a chronic kidney disease (HCC) (CMS/HCC); Essential hypertension (CMS/HCC); Monoclonal paraproteinemia; Pure hypercholesterolemia (CMS/HCC); Primary insomnia; History of kidney stonesStart: 06-17-2024 End: 27-15-5531txlowftowrHDSN R RISALITINot AvailableStart: 08-48-7742Psx- patient / Non-visitMD Ganga Hernandez Work Phone: [facility] Work Phone: Start: 05-19-2024 End: 81-67-3065hzuiyhhypkMN Ganga Hernandez Work Phone: [facility] Work Phone: Start: 05-19-2024 End: 41-70-8895Vgpysyij ReferredMD Gagna Hernandez Work Phone: [facility]-Digestive Health Work Phone: Start: 03-04-2024 End: 00-16-5189xynefdlzymOJVYLM Thomas Arredondo AvailableStart: 02-20-2024 End: 36-08-6531cfivmbqdiyILCCVH Thomas Arredondo AvailableStart: 07-24-2023 End: 77-54-6644Epwniwghz department patient visitMD Ganga Hernandez Work Phone: [facility]-Emergency Room Work Phone: Start: 08-71-8790mgeduprlztHu. Ganga Hernandez Facility:[id number]: 07-11-2023 End: 67-55-9880Afvgckksfb and management of inpatientMD Ganga Hernandez Work Phone: [facility]-[address] [place], [place] [id number] Surgical Work Phone: Start: 07-11-2023 End: 81-36-6854smjcxtdwjxa encounterMD Ganga Hernandez Work Phone: [facility] Work Phone: Start: 06-21-2023 End: 02-71-7458fprretqzimKR Ganga Hernandez Work Phone: [facility] Work Phone: Start: 06-21-2023 End: 39-60-3667Uhdfesbw ReferredMD Ganga Hernandez Work Phone: [facility] [address] [facility]: 06-07-2023 End: 72-01-0122Ezjxlgg encounter procedureMD Ganga Hernandez Work Phone: [facility]-Aum-Wfzaqxkt Testing Work Phone: Start: 08-87-0794Jwexum outpatient visit 15 minutes Ganga Hernandez Work Phone: [phone]-Fcafg [facility] [address] DO Work Phone: Start: 20-17-7713xargpgwmahJp. Demarco Jefferson Facility:[id number]: 04-04-2023 End: 53-42-9895jfjtozweryTZ Ganga Hernandez Work Phone: [facility] Work Phone: Start: 04-04-2023 End: 32-63-2413Xyffzzi encounter procedureMD Ganga Hernandez Work Phone: [facility]-CT [address] Work Phone: Start: 85-90-2239Bmcvk UpdateRoberasmo Guzman Edil Work Phone: [phone]-Kbjyc [facility] 250 DO Work Phone: Start: 01-64-4695puyppzoyulGLITHYA FRIDA Facility:[id number]: 04-48-4439ruohcbqkqdSSDHHTU FRIDAFacility:[id number]: 60-19-7126Ontejogri encounterWilliatal Jefferson DO Work Phone: [phone]-Wgzlz [facility] DO Work Phone: Start: 24-63-3122loalqofoiiNy. Ganga Hernandez Facility:[id number]: 02-05-2023 End: 48-34-5946Fqfibpbsoh and management of inpatientMD Ganga Hernandez Work Phone: [facility]-[address] [place] [facility] Work Phone: Start: 12-12-2022 End: 42-33-2643ukatbetqrkFS Ganga Hernandez Work Phone: [facility] Work Phone: Start: 12-12-2022 End: 96-16-9721Fhbyoyn encounter procedureMD Ganga Hernandez Work Phone: [facility]-Ultrasound [place] Work Phone: Start: 10-25-2022 End: 78-54-5706necinxpaooHU Ganga Hernandez Work Phone: [facility] Work Phone: Start: 10-25-2022 End: 30-61-4874Nqzycwsz ReferredMD Ganga Hernandez Work Phone: [facility] Main CampusStart: 10-11-2022 End: 97-24-5592rxqbyzasozXcuvqo Zaky Other [facility] Float: [place] Other Start: 07-39-5722Ywwmks outpatient visit 25 minutes [place] [facility] ManagementStart: 10-08-2022 End: 28-36-8007zimqaaxavsWZ Robert Hill Work Phone: [facility] Work Phone: Start: 10-08-2022 End: 73-71-9129Vnlamqr encounter procedureMD Ganga Hernandez Work Phone: [facility] Qez-Dfg-Cvjarjqj Testing Start: 17-15-5797vtzntssmflByKristi HernandezFacility:[id number]: 10-01-2022 End: 11-66-6894Lljmizskah and management of inpatientMD Ganga Hernandez Work Phone: [facility]-[address] [place] Med SurgStart: 08-30-2022 End: 24-27-0955gxjqfjarguPveudj Zaky Other [employer] Other Start: 95-81-3681Puofwkllh encounterSherif ZakyFPG Pain ManagementStart: 08-29-2022 End: 76-08-4854idqnasydfbOmgexx Zaky Other [employer] Other Start: 97-13-3245Nrqrvz consultation new/estab patient 60 minSherif ZakyFPG Pain ManagementStart: 07-26-2022 End: 00-35-6565Hiuqqoopw to same day surgery centerServMadhouse Media Phone: [facility] [address] [facility]Start: 07-26-2022 End: 27-86-0077vprdpvrqpiBlxcmymi Family Health Work Phone: [facility] Work Phone: Start: 07-24-2022 End: 51-23-2456xwaqoawusaUccufbrd Family Health Work Phone: [facility] Work Phone: Start: 07-24-2022 End: 67-69-9571Lpdrlfs encounter procedureServices [employer] Work Phone: [facility] Uwq-Fwd-Yfuzrpgt Testing Start: 07-12-2022 End: 43-86-1089Rhfkjrc encounter procedureServMadhouse Media Phone: [facility] Omp-Rjb-Oatskbol Testing Start: 06-15-2022 End: 97-15-2368Qxlukoost to same day surgery centerServMadhouse Media Phone: [facility]-Surgery Center Main CampusStart: 06-13-2022 End: 79-27-1533Qmwfoox encounter procedureServMadhouse Media Phone: [facility]-Pre-Surgical Testing Start: 06-08-2022 End: 00-19-5928xuqcssnghgEugj Braun Other [facility] Float: [place] Other start: 57-06-1872Febrym outpatient visit 15 minutes [facility] ([facility] NeurosurgeryStart: 06-04-2022 End: 37-22-9064Vbxmpfj encounter procedureServMadhouse Media Phone: [facility]-XRay Main CampusStart: 05-24-2022 End: 42-67-5207Pdsdmjibb to same day surgery centerServMadhouse Media Phone: [facility]-Surgery Center Main CampusStart: 05-22-2022 End: 87-09-6997Mjcirjt encounter procedureServMadhouse Media Phone: [facility] Hvx-Rpu-Ryjdjuqr Testing Start: 05-22-2022 End: 18-42-0340Vqpvffx encounter procedureGregory Mateusz HEATH [facility] Start: 05-21-2022 End: 91-65-3498Odovsis encounter procedureServMadhouse Media Phone: [facility]-XRay Main CampusStart: 05-19-2022 End: 68-01-1291Htletnrap department patient visitServMadhouse Media Phone: [facility]-Emergency RoomStart: 05-07-2022 End: 09-11-2080Emcgksm encounter procedureServices [employer] Work Phone: [facility]-Pre-Surgical Testing Start: 05-02-2022 End: 11-26-8719Ytqpnpw encounter procedureServices [employer] Phone: [facility]-MRI [address] RdStart: 04-19-2022 End: 51-38-4260tzzkcyfosmJsvo Braun Other [employer] Other start: 73-40-6861Ajcwtv outpatient visit 15 minutes [facility] ([facility] NeurosurgeryStart: 04-19-2022 End: 92-05-3203Cytscrp encounter procedureServices [employer] Phone: [facility]-XRay [address] HospitalStart: 09-26-2021 End: 39-86-0080sefrdwwyccRtru Carl Other [employer] Other start: 93-31-3382Xlrlqi outpatient visit 15 minutes [facility] ([facility] NeurosurgeryStart: 08-29-2021 End: 87-57-2217xbeksoezatKS ALFREDO DUEÑASERFacility:A5Zyapquzdxxlgta stress test abnormalRobert L Renfrew Work Phone: [phone]-Iozjk [facility] 250 DO Work Phone: Procedures DateProcedureProcedure DetailPerforming ClinicianStart: 33-00-7534YEPMKJIIQS MICROSCOPICGina R Risaliti NICKEL PLATER Work Phone: Start: 14-77-4167Qaygm albumin quantitativeGina R Risaliti NICKEL PLATER Work Phone: Start: 90-57-3898Wpaxsidn blood count with white cell differential, automatedGina R Risaliti NICKEL PLATER Work Phone: Start: 85-49-3117Nbdcyqzhhuelp metabolic panelGina R Risaliti NICKEL PLATER Work Phone: Start: 43-50-7208Slrzzjxnst electrophoresis serumGina R Risaliti NICKEL PLATER Work Phone: Start: 29-70-4146EVF of cervical spine without contrastGanga Hernandez MD Work Phone: Start: 21-91-2895BWV of headGanga Hernandez MD Work Phone: Start: 56-25-7888EE angiography of headGanga Hernandez MD Work Phone: Start: 98-56-9389ID angiography of neck vesselsGanga Hernandez MD Work Phone: Start: 13-79-4494VU of head without contrastGanga Hernandez MD Work Phone: Start: 70-57-7873Dssuf nucleic acid assayGanga Hernandez MD Work Phone: Start: 07-56-2280Azzaihynbp glycosylated r7dWayw R Risaliti NICKEL PLATER Work Phone: Start: 21-37-7125Dirdo chest X-rayCaldwell [facility] Center Work Phone: Start: 47-22-1375ZY of abdomen and pelvis without contrastCaldwell Medical Center Work Phone: Start: 77-87-1984Ijewjakw identified in Urine by CultureCaldwell Medical Center Work Phone: Start: 71-96-3231Xczqw chest X-rayCaldwell Medical Center Work Phone: Start: 07-34-3453ZX of abdomen and pelvis without contrastCaldwell Medical Center Work Phone: Start: 41-50-6006Kreyh chest X-rayMD [facility] Work Phone: Start: 09-66-9284Omrbflei identified in Urine by CultureCaldwell Medical Center Work Phone: Start: 56-36-6460Ouvjv culture for bacteria, including anaerobic screenMD [facility] Work Phone: Start: 47-70-6651Wxcqt cultureMD Ganga Edil Work Phone: Start: 78-37-4826Ucerdbjhjvx removal of ureteric stent Norris VINCENT Start: 77-02-6584Yeyllyfcobp using laserPatrick CARLTON Start: 24-55-9486Qoyacykvgl glycosylated o5lIynsov Thomas Hernandez MD Work Phone: Start: 64-83-9444RW of head without contrastMD Ganga Hernandez Work Phone: Start: 79-58-6802Homsu chest X-rayMD Ganga Hernandez Work Phone: Start: 08-67-7292OSN of headMD Ganga Hernandez Work Phone: Start: 87-63-8775Zatqq chest X-rayMD Ganga Hernandez Work Phone: Start: 43-76-5892QV of head without contrastMD Ganga Hernandez Work Phone: Start: 67-67-9794Jhalx culture for bacteria, including anaerobic screenMD Ganga Hernandez Work Phone: Start: 26-03-1667SRLT-CoV-2, Influenza & RSV (PCR)MD Ganga Hernandez Work Phone: Start: 24-05-3423Sjsxyeb ultrasonography of bilateral carotid arteriesMD Ganga Hernandez Work Phone: Start: 27-48-2915QQ of abdomen and pelvis without contrastMD Ganga Hernandez Work Phone: Start: 85-48-1830Ywjnr chest X-rayMD Ganga Hernandez Work Phone: Start: 36-36-2017Tlpjbsrksedrktj of bilateral kidneys MD Ganga Hernandez Work Phone: Start: 50-14-7013Whkpj X-ray of left hipMD Ganga Hernandez Work Phone: Start: 47-01-0507TC angiography of head with contrast MD Ganga Hernandez Work Phone: Start: 35-58-8534Ydpomyku resonance angiography of neck without contrastMD Ganga Hernandez Work Phone: Start: 21-43-7447Cpiaoad ultrasonography of bilateral carotid arteriesMD Ganga Hernandez Work Phone: Start: 86-86-7746TI of head without contrastMD Ganga Hernandez Work Phone: Start: 93-63-3108Mawuu chest X-rayMD Ganga Hernandez Work Phone: Start: 87-91-7775VFCK-CoV-2, Influenza & RSV (PCR) Ganga Hernandez Work Phone: Start: 72-64-7498Bhued cultureMD Ganga Hernandez Work Phone: Start: 52-42-3369Qurjr excisionServices [employer] Phone: Start: 85-96-6892Ghvflc of umbilical herniaServices [employer] Phone: Start: 17-35-5199QbtbpfvmnkZqicpbnl [employer] Phone: Start: 40-51-6520Sazgddbagu radiography of abdomen Services [employer] Phone: Start: 73-74-5701Gzhimvgitj radiography of abdomen Services [employer] Phone: Start: 71-93-8588Tqnpysgeyvvfpa shockwave lithotripsy Services [employer] Phone: Start: 45-89-1083Zhpiqtbhkq radiography of abdomen Services [employer] Phone: Start: 60-56-1817Qqbvesuqtsugrc shockwave lithotripsy of calculus of kidneyPatrick BayPackets Comment on above:Cysto/ Lt retrograde pyelogram/Lt double J stent placement under fluoroscopic guidance/ESWL Lt ureteral calculus Start: 23-41-5481Hggzlgvwdl radiography of abdomenServices [employer] Phone: Start: 55-26-8526NU of abdomen and pelvis without contrastServices [employer] Work Phone: Start: 01-46-2184RS lumbar spine wo conServices [employer] Work Phone: Start: 05-27-2788N-ray of lumbar spine, four views Services [employer] Phone: Start: 37-73-8793Nngqdnzhgeqifv shockwave lithotripsy of calculus of kidneyGregory Stormpath Excision of cystRobert Thomas Hernandez Work Phone: Hernia repairRobert Thomas Hernandez Work Phone: LithotripsyRobert Thomas Hernandez Work Phone: Procedure on neckRobert Thomas Hernandez Work Phone: TonsillectomyRobert Thomas Hernandez Work Phone: Urine cultureMD Ganga Renfrew Work Phone: Plan of Treatment DateCare ActivityDetailAuthorStart: 45-63-8074Zzckz screening for protein Diabetes: Urine Protein ScreeningSaint Luke's Health SystemStart: 24-42-6858Hkpnr BMI ScreeningAdult BMI ScreeningMer[facility] Eyewitness Surveillance SystemStart: 03-35-8205Cfud Risk ScreeningFall Risk ScreeningSuburban [facility] SystemStart: 50-40-9457Wyohzxw ScreeningTobacco ScreeningProPickens County Medical Center Health SystemStart: 29-75-5489Btfkf BMI ScreeningAdult BMI ScreeningProPickens County Medical Center Eyewitness Surveillance SystemStart: 12-22-4025Ujvar BMI ScreeningAdult BMI ScreeningProSumma Health Barberton CampusID4A LLC. SystemStart: 57-94-3099Crrbh BMI ScreeningAdult BMI ScreeningProPickens County Medical Center Eyewitness Surveillance SystemStart: 66-78-7641Yakj Risk ScreeningFall Risk ScreeningMer[facility] Eyewitness Surveillance SystemStart: 71-43-3673Ewmwo BMI ScreeningAdult BMI ScreeningProPickens County Medical Center Eyewitness Surveillance SystemStart: 78-51-6810Cgzjt BMI ScreeningAdult BMI ScreeningProPickens County Medical Center Eyewitness Surveillance SystemStart: 19-90-3923Ycymulyvwsod Vaccine: 65+ Years (1 of 2 - PCV)Pneumococcal Vaccine: 65+ Years (1 of 2 - PCV) [facility]OM[facility] HealthcareComment on above:Postponed from 1964 (Patient Refused) Postponed from 1977 (Patient Refused)Start: 06-85-5778Rukfd BMI Screening Adult BMI ScreeningProUniversity [facility] SystemStart: 06-86-8193Sdmnt BMI Screening Adult BMI ScreeningProUniversity [facility]als [facility] SystemStart: 08-18-2025 End: 95-00-0337Wyamfmi encounter procedureNOMS SWS IMStart: 08-07-2025 End: 00-57-7713CXA, IFA RFX 11 KASSY MULTIPLEXANA, IFA RFX 11 KASSY MULTIPLEX Lab Routine Primary osteoarthritis involving multiple joints Monoclonal paraproteinemia Expected: 08/07/2025 (Approximate), Expires: 02/03/2026NOWI HealthcareComment on above:Expected: 08/07/2025 (Approximate), Expires: 02/03/2026Start: 08-07-2025 End: 02-03-2026 reactive protein [Mass/volume] in Serum or PlasmaC-reactive protein Lab Routine Primary osteoarthritis involving multiple joints Expected: 08/07/2025 (Approximate), Expires: 02/03/2026NOWI HealthcareComment on above: Expected: 08/07/2025 (Approximate), Expires: 02/03/2026Start: 08-07-2025 End: 41-91-6457Xdxsnqjjggrht metabolic 2000 panel - Serum or PlasmaComprehensive metabolic panel Lab Routine Type 2 diabetes mellitus with diabetic nephropathy, without long-term current use of insulin ([facility]) Stage 3a chronic kidney disease (HCC) (CMS/HCC) Essential hypertension (CMS/HCC) Expected: 08/07/2025 (Approximate), Expires: 02/03/2026[facility] HealthcareComment on above:Expected: 08/07/2025 (Approximate), Expires: 02/03/2026Start: 08-07-2025 End: 07-95-4005Gxbdogawgyf sedimentation rateSedimentation rate, automated Lab Routine Type 2 diabetes mellitus with diabetic nephropathy, without long-term current use of insulin (CMS/HCC) Primary osteoarthritis involving multiple joints Monoclonal paraproteinemia Expected: 08/07/2025 (Approximate), Expires: 02/03/2026[facility] HealthcareComment on above:Expected: 08/07/2025 (Approximate), Expires: 02/03/2026Start: 08-07-2025 End: 69-09-3087Jkzgtluzfy a1c with eagHemoglobin a1c with eag Lab Routine Type 2 diabetes mellitus with diabetic nephropathy, without long-term current use of insulin ([facility]) Expected: 08/07/2025 (Approximate), Expires: 02/03/2026[facility] HealthcareComment on above:Expected: 08/07/2025 (Approximate), Expires: 02/03/2026Start: 08-07-2025 End: 79-58-2988Kznql 1996 panel - Serum or PlasmaLipid panel Lab Routine Pure hypercholesterolemia ([facility]) Expected: 08/07/2025 (Approximate), Expires: 02/03/2026[facility] HealthcareComment on above:Expected: 08/07/2025 (Approximate), Expires: 02/03/2026Start: 08-07-2025 End: 33-65-5224Bocxbtwt specific Ag [Mass/volume] in Serum or PlasmaPSA Lab Routine Prostate cancer screening Expected: 08/07/2025 (Approximate), Expires: 02/03/2026[facility] HealthcareComment on above:Expected: 08/07/2025 (Approximate), Expires: 02/03/2026Start: 08-07-2025 End: 31-52-8762Tswzlwy, total and protein electrophoresis with immunofixation Protein, total and protein electrophoresis with immunofixation Lab Routine Type 2 diabetes mellituswith diabetic nephropathy, without long-term current use of insulin ([facility]) Primary osteoarthritis involving multiple joints Monoclonal paraproteinemia Expected: 08/07/2025 (Approximate), Expires: 02/03/2026[facility] HealthcareComment on above:Expected: 08/07/2025 (Approximate), Expires: 02/03/2026Start: 08-07-2025 End: 34-51-2841Qsqoiloyll factor [Units/volume] in Serum or PlasmaRheumatoid factor Lab Routine Primary osteoarthritis involving multiple joints Other fatigue Expected: 08/07/2025 (Approximate), Expires: 02/03/2026[facility] Healthcare Comment on above:Expected: 08/07/2025 (Approximate), Expires: 02/03/2026Start: 08-07-2025 End: 88-49-9633Ylrutqv stimulating immunoglobulins actual/normal in Serum Immunoglobulin free LT chains blood Lab Routine Type 2 diabetes mellitus with diabetic nephropathy,without long-term current use of insulin (CMS/HCC) Primary osteoarthritis involving multiple jointsMonoclonal paraproteinemia Expected: 08/07/2025 (Approximate), Expires: 02/03/2026NOWI HealthcareComment on above: Expected: 08/07/2025 (Approximate), Expires: 02/03/2026Start: 08-07-2025 End: 21-08-2007Ylwwltxjwcp [Units/volume] in Serum or PlasmaTSH Lab Routine Other fatigue Expected: 08/07/2025 (Approximate), Expires: 02/03/2026[facility] HealthcareComment on above:Expected: 08/07/2025 (Approximate), Expires: 02/03/2026Start: 87-03-7597Icuxx BMI ScreeningAdult BMI ScreeningMer[facility] Health SystemStart: 20-99-9922Doyd Risk ScreeningFall Risk ScreeningSuburban Community Hospital & [facility] SystemStart: 50-86-3213Gpescmw ScreeningTobacco ScreeningMer[facility] Health [facility] Health SystemStart: 54-13-6389Ijdkx BMI ScreeningAdult BMI ScreeningSelect Medical [facility] Rehabilitation Hospitalca Health SystemStart: 18-10-4374Znyat BMI ScreeningAdult BMI ScreeningSelect Medical [facility] Hospitalca Health SystemStart: 59-45-4164Wixkkjt ScreeningTobacco ScreeningSelect Medical [facility]ca [facility] Start: 72-22-5026Zxwac BMI ScreeningAdult BMI ScreeningSelect Medical [facility] Start: 81-92-4759Vzfddou ScreeningTobacco ScreeningSelect Medical [facility] Hospitalca Health SystemStart: 42-31-4503Oxiee BMI ScreeningAdult BMI ScreeningSelect Medical [facility] Hospitalca [facility] SystemStart: 42-22-2613Gutq Risk ScreeningFall Risk ScreeningSuburban Community Hospital & [facility] SystemStart: 91-28-7992Pjyzazd ScreeningTobacco ScreeningSuburban Community Hospital & [facility] SystemStart: 14-79-4275Pfppk BMI ScreeningAdult BMI ScreeningSelect Medical [facility] Hospitalca [facility] SystemStart: 81-37-2227Cgmtxbg ScreeningTobacco ScreeningSuburban Community Hospital & [facility] SystemStart: 50-00-7012Nxlur BMI ScreeningAdult BMI ScreeningSuburban Community Hospital & [facility] SystemStart: 85-40-9461Jlmxkqd ScreeningTobacco ScreeningSuburban Community Hospital & [facility] SystemStart: 52-13-1016Wuonjyloo vaccinationACADIA [facility]ALTH[facility]ARE HealthcareStart: 74-25-1463Vqtpufxw screeningDiabetes: Retinopathy ScreeningACADIA HEALTHCARE HealthcareStart: 05-06-2025 Hemoglobin A1c measurementDiabetes: Hemoglobin W4WCVPA HealthcareStart: 05-02-2025Medicare Annual Wellness (AWV)Medicare Annual Wellness (AWV)[facility] HealthcareStart: 94-80-9858Nzucd screening for proteinDiabetes: Urine Protein ScreeningSaint Luke's Health SystemStart: 02-08-2025 End: 20-51-8704Fbxvj stiffness by US.transient elastographyFIBROSCAN Imaging Routine Metabolic dysfunction-associated steatotic liver disease (MASLD) Expected: 02/08/2025, Expires: 02/08/2026[facility] Work Phone: Comment on above:Expected: 02/08/2025, Expires: 02/08/2026Start: 02-08-2025 End: 33-74-9615Fknuubm encounter procedureNOWI SWS IMComment on above:Type 2 diabetes mellitus with diabetic nephropathy, without long-term current use of insulin (CMS/HCC) (Primary Dx); Stage 3a chronic kidney disease (HCC) (CMS/HCC); Essential hypertension (CMS/HCC); Primary osteoarthritis involving multiple joints; MEGAN (generalized anxiety disorder) (CMS/HCC); Primary insomnia; Monoclonal paraproteinemia; Restless legs; Microscopic hematuriaStart: 01-26-2025 End: 203244-eppdjyrnnfrnws D3 [Mass/volume] in Serum or PlasmaVitamin D 25 hydroxy Total Lab Routine Vitamin D deficiency Expected: 01/26/2025, Expires: 04/27/2025[facility] HealthcareComment on above:Expected: 01/26/2025, Expires: 04/27/2025Start: 01-26-2025 End: 58-65-6158BZR W Auto Differential panel - BloodCBC and differential Lab Routine Chronic kidney disease, stage 3a (HCC) (CMS/HCC) Expected: 01/26/2025, Expires: 04/27/2025[facility] Work Phone: Comment on above:Expected: 01/26/2025, Expires: 04/27/2025Start: 01-26-2025 End: 53-56-0788Sycmpocfpqbhf metabolic 2000 panel - Serum or PlasmaComprehensive metabolic panel Lab Routine Chronic kidney disease, stage 3a (HCC) (CMS/HCC) Expected: 01/26/2025, Expires: 04/27/2025[facility] HealthcareComment on above: Expected: 01/26/2025, Expires: 04/27/2025Start: 70-72-5580Dedgfhojgy A1c measurementDiabetes: Hemoglobin X1YSYYASaint Luke's Health SystemStart: 01-26-2025 End: 28-84-7639Amleqyjait a1c with eagHemoglobin a1c with eag Lab Routine Type 2 diabetes mellitus with diabetic chronic kidney disease ([facility]) Expected: 01/26/2025, Expires: 04/27/2025NOW[facility] HealthcareComment on above:Expected: 01/26/2025, Expires: 04/27/2025Start: 01-26-2025 End: 98-42-0782Gymhwolvdjjz/Creatinine panel in random UrineMicroalbumin / creatinine urine ratio Lab Routine Chronic kidney disease, stage 3a (HCC) (CMS/HCC) Essential hypertension (CMS/HCC) Expected: 01/26/2025, Expires: 04/27/2025[facility] HealthcareComment on above:Expected: 01/26/2025, Expires: 04/27/2025Start: 01-26-2025 End: 05-34-6759Fqunrpmvcm.intact [Mass/volume] in Serum or PlasmaPTH, intact Lab Routine Chronic kidney disease, stage 3a (HCC) (CMS/HCC) Expected: 01/26/2025, Expires: 04/27/2025[facility] HealthcareComment on above:Expected: 01/26/2025, Expires: 04/27/2025Start: 01-26-2025 End: 37-63-8800Fbebcbmnt [Moles/volume] in Serum or PlasmaPhosphorus Lab Routine Chronic kidney disease, stage 3a (HCC) (CMS/HCC) Expected: 01/26/2025, Expires: 04/27/2025NOW[facility] HealthcareComment on above:Expected: 01/26/2025, Expires: 04/27/2025Start: 01-26-2025 End: 99-75-8941Wytheab, total and protein electrophoresis with immunofixation Protein, total and protein electrophoresis with immunofixation Lab Routine Monoclonal paraproteinemia Expected: 01/26/2025, Expires: 04/27/2025NOWI HealthcareComment on above:Expected: 01/26/2025, Expires: 04/27/2025Start: 01-26-2025 End: 56-82-8135Rxaucmq stimulating immunoglobulins actual/normal in Serum Immunoglobulin free LT chains blood Lab Routine Monoclonal paraproteinemia Expected: 01/26/2025, Expires: 04/27/2025[facility] HealthcareComment on above: Expected: 01/26/2025, Expires: 04/27/2025Start: 01-26-2025 End: 66-11-8586Sibnzoyfdu complete panel - UrineUrinalysis with microscopic Lab Routine Chronic kidney disease, stage 3a (HCC) (CMS/HCC) Essential hypertension ([facility]/HCC) Expected: 01/26/2025, Expires: 04/27/2025[facility] HealthcareComment on above:Expected: 01/26/2025, Expires: 04/27/2025Start: 74-35-9914Vmegdglmkwcrw metabolic 1999 panel - Serum or [facility] CenterStart: 50-63-5736RddfjxgmfAultman Hospitaltart: 07-10-3970Egwxwuegavosz metabolic 1999 panel - Serum or [facility] CenterStart: 13-61-2450RmmohgkboMercy Memorial Hospital CenterStart: 69-83-1528Kjycxfthhdqiv metabolic 1999 panel - Serum or [facility] Hospitaltart: 12-31-2024 End: 85-89-7784XbjwkmiflAultman Hospitaltart: 82-06-0463Szglncbl to rehabilitation physicianMercy Memorial Hospital CenterStart: 12-30-2024 Comprehensive metabolic 1999 panel - Serum or [facility] Hospitaltart: 12-30-2024 End: 55-09-1030BxngqhmbkAultman Hospitaltart: 13-60-0183OAK of headMR head/brain wo [facility] Hospitaltart: 52-10-9657Bnkcqkhh to neurologistAultman Hospitaltart: 37-81-6551Rjqvtizi admission [facility]: 52-57-0803Ytwnfttwymwf consultation with patientAultman Hospitaltart: 12-15-2024 End: 55-79-2434Vpvyaey encounter iufneywrc63/25/2025 1:00 PM EST Office Visit [facility] [address] [place] [address] Soraya Hawk NICKEL PLATER [address] [place] [address] [facility] IMStart: 16-26-0294Thkuozrnzx A1c measurement Diabetes: Hemoglobin F3TNFTZ HealthcareStart: 10-28-2024 End: 51-66-8108Ycztsml encounter loztliabl98/08/2025 1:00 PM EST Office Visit [facility] [address] [place] [address] Soraya Hawk NICKEL PLATER [address] [place] [address] [facility] IMStart: 19-21-7132Heonpjbrw vaccination Influenza Vaccine (#1)[facility] HealthcareComment on above:Postponed from 06/21/2024 (Patient Refused)Start: 09-28-2024 End: 45-00-6326Dwliqhx encounter lnyrhrvog10/09/2024 8:45 AM EST Office Visit [facility] [address] [place] [address] Ganga Hernandez MD [address] [place] [address] [facility] IMStart: 10-86-0976Gpuqimdvxd A1c measurement Diabetes: Hemoglobin I1IZDFK HealthcareStart: 09-03-2024 End: 00-36-0337trwayqysmd96/14/2024 9:00 AM EST Infusion [facility] [address] [place] [phone] [facility] OncologyStart: 09-02-2024 End: 97-76-3397ufvvhkpsqk46/13/2024 9:00 AM EST Infusion [facility] [address] [place] [address] [facility] - [facility] OncologyStart: 09-01-2024 End: 18-54-2283btfbbqivdi96/12/2024 9:00 AM EST Infusion [facility] [address] [place] [address] [facility] - Medical OncologyStart: 08-31-2024 End: 69-28-8083locfykemtu71/11/2024 9:00 AM EST Infusion [facility] [address] [place] [address] [facility] - Medical OncologyStart: 08-29-2024 End: 58-99-3072aqqchogrqc86/09/2024 8:00 AM EST Infusion [facility] [address] [place] [address] [facility] - Medical OncologyStart: 08-28-2024 End: 88-31-0439cofwsrlezqEpnuwqg [facility] - Medical OncologyStart: 08-27-2024 End: 47-13-8096qsinmkneutZofaccu [facility] Medical OncologyStart: 08-26-2024 End: 79-15-9697kgoclxsgciPsbgetw L [facility] - Medical OncologyStart: 08-25-2024 End: 30-65-7832gkvtwmbrxcAccncuq L [facility] - Medical OncologyStart: 08-24-2024 End: 35-61-6666pyislisvqbAnmqwci [facility] - Medical OncologyStart: 08-23-2024 End: 40-13-4816dcotlgzavl30/03/2024 8:00 AM EST Infusion [facility] [address] [place] [address] [facility] OncologyStart: 08-22-2024 End: 76-93-1021towgiqmppa99/02/2024 8:00 AM EDT Infusion [facility] [address] [place] [phone] [facility] - Medical OncologyStart: 08-21-2024 End: 20-25-6499iveiqblvhzIjyaona [facility] - Medical OncologyStart: 08-20-2024 End: 03-49-0369Wabgqgg encounter ikkdeihwf50/31/2024 10:45 AM EDT Office Visit [facility] [address] [place] [address] Vamshi Jiménez PA [address] [place] [address] [facility] IMStart: 08-20-2024 End: 70-05-8230xanzdmcfhxNssafvo [facility] Medical OncologyStart: 08-19-2024 End: 19-94-5117dqfjbqxfweWhutrei L [facility] - Medical OncologyStart: 08-18-2024 End: 78-92-3632tqroffyuojCgxbrkm [facility] Medical OncologyStart: 08-17-2024 End: 12-80-0998ojwicmytdc25/28/2024 8:00 AM EDT Infusion [facility] [address] [place] [address] [facility] - Medical OncologyStart: 08-16-2024 End: 10-79-8616vabjyybdqf38/27/2024 8:00 AM EDT Infusion [facility] [address] [place] [address] ArrivedDolualok [facility] - Medical OncologyComment on above:Arrived Start: 08-14-2024 End: 25-44-3771FmqgyzfggAultman Hospitaltart: 23-48-7917OnutlmvflAultman Hospitaltart: 37-86-5353XaksyviggAultman Hospitaltart: 06-40-9526JfzllokjoAultman Hospitaltart: 48-91-3541LuzrvabdqAultman Hospitaltart: 08-09-2024 End: 10-66-7208UctvaorxrAultman Hospitaltart: 35-99-8619MK Abdomen and Pelvis WO contrastAultman Hospitaltart: 26-73-8564AU of abdomen and pelvis without contrastCT abdomen pelvis wo [facility]: 72-37-7393Umyiwkbw admissionAultman Hospitaltart: 56-57-2167Rsmtz cultureAultman Hospitaltart: 07-47-5238Cxmjnhtp identified in Blood by CultureAultman Hospitaltart: 56-15-1030Lkgipzrn identified in Urine by CultureUrine Culture [facility]: 57-18-0249Rqzrz culture for bacteria, including anaerobic screenBlood CultureAultman Hospitaltart: 65-85-5970Mxlsx screening for proteinDiabetes: Urine Protein ScreeningNOSaint John's HospitalStart: 07-23-2024 End: 00-47-3359lehfraczor31/03/2024 8:30 AM EDT Infusion [facility] [address] [place] [phone] [facility] - Medical OncologyStart: 07-22-2024 End: 04-90-2935srwtwwjibj47/02/2024 9:30 AM EDT Infusion [facility] [address] [place] [address] [facility] - Medical OncologyStart: 07-21-2024 End: 13-89-0834lobozwegrlPbaadkz [facility] - Medical OncologyStart: 07-20-2024 End: 72-78-2490uepdgjlsmh41/30/2024 8:30 AM EDT Infusion [facility] [address] [place] [address] [facility] - Medical OncologyStart: 07-19-2024 End: 38-66-4641kowsdzmzlaQndmjsa L [facility] - Medical OncologyComment on above:ArrivedStart: 07-18-2024 End: 37-11-1616tzhutjwxjs72/28/2024 8:30 AM EDT Infusion [facility] [address] [place] [address] [facility] - Medical OncologyStart: 07-17-2024 End: 56-54-6412bezwwzimkm04/27/2024 8:00 AM EDT Infusion [facility] [address] [place] [phone] [facility] - Medical OncologyStart: 07-16-2024 End: 03-75-0646upjlvpbzdu49/26/2024 8:30 AM EDT Infusion [facility] [address] [place] [address] [facility] - Medical OncologyStart: 07-15-2024 End: 07-04-5822srvmxolupu67/25/2024 10:00 AM EDT Infusion [facility] [address] [place] [address] [facility] - Medical OncologyStart: 56-12-3563EsebquwuyAultman Hospitaltart: 28-78-0731Acskplgtc of peripherally inserted central catheterAultman Hospitaltart: 96-07-3429Sxspkavd to infectious diseases physicianAultman Hospitaltart: 07-10-2024 Referral to urologistAultman Hospitaltart: 05-65-8771Zsuglxmc admissionAultman Hospitaltart: 52-78-8793Fctfj culture for bacteria, including anaerobic screenBlood CultureAultman Hospitaltart: 98-45-5034DMTGS-19 Vaccine ( season)COVID-19 Vaccine ( season)[facility]: 27-56-3322GXPEW-19 Vaccine ( season)COVID-19 Vaccine ()[facility] Start: 68-25-2328AOJNR-19 Vaccine ()COVID-19 Vaccine ()[facility]: 45-58-1734Zwinsrmeo vaccinationSaint Luke's Health SystemStart: 81-90-7936Mcyr Risk ScreeningFall Risk ScreeningAtrium Health Mercytart: 31-12-1537YtlxtjiqpAultman Hospitaltart: 07-11-2023 Referral to neurologistAultman Hospitaltart: 07-11-2023 Hospital admissionAultman Hospitaltart: 49-00-9089Xdgnr culture for bacteria, including anaerobic screenBlood CultureAultman Hospitaltart: 65-62-7399Uhtxsewisopazf shockwave lithotripsyOR Kidney ECSWL Single W/Cysto/Retro (Right)[facility]: 57-54-3039CVI, Provider: Demarco Jefferson, Status: Pen, Time: 11:20 AMFUV, Provider: Demarco Jefferson, Status: Pen, Time: 11:20 AMMP-[facility] [place] [address] DO Work Phone: Start: 79-14-4334TDZD ONLY, Provider: [place] PRESTONI NUCLEAR 01,[id number], Status: Pen, Time: 12:30 PMREST ONLY, Provider: [place] HHVI NUCLEAR 01,[id number], Status: Pen, Time: 12:30 PMMP-[facility] [place] [address] DO Work Phone: Start: 10-87-3651DHXGERSBU4, Provider: [place] HHVI NUCLEAR 01,[id number], Status: Pen, Time: 1:00 PMSTRESSNUC2, Provider: [place] HHVI NUCLEAR 01,[id number], Status: Pen, Time: 1:00 PM-[facility]- [place] [address] DO Work Phone: Start: 67-07-5219NjpitzjwgToledo Hospital Start: 46-49-6960Kooczixt to cardiologistAultman Hospitaltart: 95-50-9236Kjxrisqc admissionAultman Hospitaltart: 10-25-2022 Revision of left total hip arthroplastyOR Total Hip Arthro MIS/Revision (Left) [facility]: 51-94-7399Lbtcm [facility]: 10-03-2022 End: 70-26-9455MhuamlshiAultman Hospitaltart: 68-52-1028SP angiography of head with contrastMR angio MR brain wo/w [facility] Start: 39-69-6218PCP of neck vesselsMR angio neck [facility]: 34-11-6269Vocpf [facility] Start: 56-98-2903VtrtvbpmaMercy Memorial Hospital CenterStart: 01-69-8856Tsnxrdal therapy procedureAultman Hospitaltart: 70-40-1503Bknzqymf to occupational therapistAultman Hospitaltart: 96-15-7181Rfphhavc to speech and language therapy serviceAultman Hospitaltart: 33-33-8397Zgrghtz ultrasonography of bilateral carotid arteriesUS carotid doppler [facility]: 26-72-7947IS.doppler Carotid arteries - bilateralAultman Hospitaltart: 85-07-5292Hewkhzyg to neurologistMercy Memorial Hospital CenterStart: 98-40-6310PqnhiepxnAultman Hospitaltart: 07-26-2022 End: 65-21-4641ByswoonmfAultman Hospitaltart: 11-81-2315CvmaiaoyfAultman Hospitaltart: 06-15-2022 End: 79-57-1457RwcabmeyuAultman Hospitaltart: 58-06-7228AjxtoxihugHH Cysto/Retro/Stent/Stone/Holmium Laser (Left)[facility] Start: 69-24-8265Rwhvniwvtd radiography of abdomenXR [facility]: 06-15-2022 End: 08-61-7968Remlclvea to same day surgery centerDekayenta health centered Surgical Day Care [facility] Main CampusStart: 06-13-2022 End: 57-62-3209Lamdjwa encounter procedureDeSelect Medical [facility]-Pre-Surgical TestingStart: 15-91-1932Ovcfalwhws radiography of abdomenXR [facility]: 06-04-2022 End: 98-62-9019Okxcwhu encounter procedureDeSelect Medical [facility]-XRay Main CampusStart: 77-93-0683DxppksotqToledo Hospital Start: 12-15-3108Nupziwttxuondw shockwave lithotripsyOR Kidney ECSWL Single W/Cysto/Retro (Left)[facility]: 82-16-6727Gsdgczhl of left total hip arthroplastyOR Total Hip Arthro MIS/Revision (Left)[facility]: 61-20-3823Dbnlmictxz radiography of abdomenXR KUB [facility]: 05-24-2022 End: 21-80-7052Dkjxtqfyn to same day surgery centerDeosf healthcare [facility] Main CampusStart: 2008 Administration of varicella zoster vaccineZoster (Shingles) Vaccine (1 of 2) [facility] SystemStart: 37-09-2565SDiQ,Tdap and Td Vaccines (1 - Tdap) DTaP,Tdap and Td Vaccines (1 - Tdap)[facility] SystemStart: 1976 Adult BMI Follow Up PlanAdult BMI Follow Up PlanSuburban Community Hospital & [facility] SystemStart: 85-47-4676Duvhv BMI ScreeningAdult BMI ScreeningSuburban Community Hospital & [facility] SystemStart: 11-98-4756Nluvmpvhwb ScreeningDepression ScreeningSuburban Community Hospital & [facility] SystemStart: 43-29-7536Uutnirs ScreeningTobacco ScreeningProUniversity [facility] SystemStart: 43-22-7887Wmcgirqmkhfn Vaccine: 65+ Years (1 of 2 - PCV)Pneumococcal Vaccine: 65+ Years (1 of 2 - PCV)[facility] SystemStart: 1958Medicare Annual Wellness (AWV)Medicare Annual Wellness (AWV)[facility] SystemStart: 1958Medicare Annual Wellness VisitMedicare Annual Wellness VisitAtrium Health Mercytart: 46-10-9389Thdiulkjy for malignant neoplasm of colonNOMS HealthcareAnion gap measurementMercy Memorial Hospital Ctr Work Phone: Bacteria identified in Urine by CultureToledo HospitalBasophils [#/volume] in Blood by Automated countMercy Memorial Hospital Ctr Work Phone: Basophils/100 leukocytes in Blood by Automated count [facility] Work Phone: Calcium [Mass/volume] in Serum or PlasmaMercy Memorial Hospital Ctr Work Phone: Calculated LDL cholesterol levelMercy Memorial Hospital Ctr Work Phone: Carbon dioxide, total [Moles/volume] in Serum or PlasmaMercy Memorial Hospital Ctr Work Phone: Chloride [Moles/volume] in Serum or PlasmaMercy Memorial Hospital Ctr Work Phone: Cholesterol [Mass/volume] in Serum or PlasmaMercy Memorial Hospital Ctr Work Phone: Cholesterol in HDL [Mass/volume] in Serum or Plasma [facility] Work Phone: Cholesterol.total/Cholesterol in HDL [Mass Ratio] in Serum or PlasmaMercy Memorial Hospital Ctr Work Phone: Creatinine and Glomerular filtration rate.predicted panel - Serum, Plasma or BloodMercy Memorial Hospital Ctr Work Phone: [phone] [#/volume] in BloodOhiohealth Grove City [facility] Hospital Work Phone: [phone]/100 leukocytes in Blood by Automated count [facility] Work Phone: Erythrocyte distribution width [Ratio] by Automated countMercy Memorial Hospital Ctr Work Phone: Erythrocytes [#/volume] in BloodMercy Memorial Hospital Ctr Work Phone: Glucose [Mass/volume] in Serum or PlasmaMercy Memorial Hospital Ctr Work Phone: Hematocrit [Volume Fraction] of BloodMercy Memorial Hospital Ctr Work Phone: Hemoglobin [Mass/volume] in BloodMercy Memorial Hospital Ctr Work Phone: Leukocytes [#/volume] corrected for nucleated erythrocytes in Blood by Automated counMercy Memorial Hospital Ctr Work Phone: Leukocytes [#/volume] in BloodMercy Memorial Hospital Ctr Work Phone: Lymphocytes [#/volume] in Blood by Automated count [facility] Work Phone: [phone]/100 leukocytes in Blood by Automated count [facility] Work Phone: MCH [Entitic mass] by Automated countMercy Memorial Hospital Ctr Work Phone: MCHC [Mass/volume] by Automated countMercy Memorial Hospital Ctr Work Phone: MCV [Entitic volume] by Automated countMercy Memorial Hospital Ctr Work Phone: Measurement of renal functionMercy Memorial Hospital Ctr Work Phone: Monocytes [#/volume] in Blood by Automated count [facility] Work Phone: [phone]/100 leukocytes in Blood by Automated count [facility] Work Phone: [phone] [#/volume] in Blood by Automated count [facility] Work Phone: [phone]/100 leukocytes in Blood by Automated count [facility] Work Phone: Nucleated erythrocytes [Presence] in Blood by Automated countMercy Memorial Hospital Ctr Work Phone: Patient EducationMercy Memorial Hospital Ctr Work Phone: Patient referralMercy Memorial Hospital Ctr Work Phone: Platelet mean volume [Entitic volume] in Blood by Automated countMercy Memorial Hospital Ctr Work Phone: Platelets [#/volume] in BloodOhiohealth Grove City [facility] Hospital Work Phone: Potassium [Moles/volume] in Serum or PlasmaOhiohealth Grove City Methodist Hospital Work Phone: [phone]-IpB-2 (COVID-19) N gene [Presence] in Respiratory specimen by ANGÉLICA with probe detectionOhiohealth Grove City Methodist Hospital Work Phone: Sodium [Moles/volume] in Serum or PlasmaOhiohealth Grove City [facility] Hospital Work Phone: Triglyceride [Mass/volume] in Serum or PlasmaMercy Memorial Hospital Ctr Work Phone: Troponin I.cardiac [Mass/volume] in Serum or Plasma by High sensitivity methodOhiohealth Grove City Methodist Hospital Work Phone: Urea nitrogen [Mass/volume] in Serum or Plasma [facility] Work Phone: VLDL cholesterol measurementOhiohealth Grove City [facility] Hospital Work Phone: Immunizations Immunization DateImmunizationNotesCare ExjpvktaGxbqjcuk18-76-4810BKPUZ-35 mRNA, Comirnaty (Pfizer)Services [facility] Work Phone: [facility]06-03-2021COVID-19 mRNA-1273 (Moderna)Services [facility] Work Phone: [facility]05-06-2021COVID-19 mRNA-1273 (Moderna)Services [facility] Work Phone: [facility]01-01-2021SARS-CoV-2 (COVID-19) mRNA-1273 vaccineGregory KUMAR [facility] Comment on above:Result Comment: 3 vaccines Payers DatePayer CategoryPayerPolicy [id number] [id number] [id number] 2024Medicare (Managed Care)[employer] [id number] 2024Medicare [facility] Member Subscriber Plan / Payer (Effective 2024-Present) Name: Lisa Mathias Relation to Subscriber: Self Name: Rod Mathias Payer ID: [id number] (NAIC) Group ID: [id number] Type: Not on file Address:[address] [place] [id number] 2024Medicare [id number] [id number] [id number] [id number] 2.16.840.1.007771.3.57[id number] 2.16.840.1.493873.3.57[id number] 2.16.840.1.009012.3.57[id number] 2.16840.1.524192.3.57[id number] 2.16840.1.405591.3.57[id number] 2.16840.1.063919.3.57[id number] 2.840.1.898666.3.57[id number] 2.840.1.358346.3.579.2.084372-35-4762Esazhzu25797921 2.840.1.777801.3.579.2.827043-47-3436Lebncmm32264167 2.840.1.747974.3.57[id number] 2.840.1.142325.3.579.2.047709-11-2436Gcipcyo91988834 2.840.1.028039.3.579.2.899480-55-7746Qfrmxyc52129083 2.16840.1.085937.3.579.2.563587-97-9876Pxdhqvr57917681 2.840.1.714819.3.579.2.545571-42-8062Iajonwp80156843 2.16840.1.009561.3.579.2.915858-98-9281Ghuyzbs90082549 2.16840.1.475720.3.579.2.008057-51-8660Dqapoxd34109224 2.16.840.1.444482.3.579.2.871816-40-7543Rzxqdhx67062885 2.16840.1.006957.3.579.2.484157-72-0320Qffmsks15404695 2.16840.1.739179.3.579.2.438816-41-3034Qvvkxfu51612613 2.16840.1.997751.3.579.2.711205-61-8616Zfmfwmb31734378 2.840.1.988018.3.579.2.7558 [id number] 2.840.1.948307.3.579.2.977072-77-5094Dsncyxe75208445 2.840.1.947383.3.579.2.862133-26-2115Vorwose77770541 2.840.1.592904.3.579.2.903227-74-6443Ihhlekf47069752 2.840.1.648352.3.579.2.724018-29-4985Ikloqhs23785612 2.16840.1.874420.3.579.2.041691-23-4711Rimioma16001697 2.16840.1.566613.3.579.2.194865-79-6334Hyzypqr78885795 2.16840.1.521789.3.579.2.634903-20-5359Zivzftr49790401 2.16.840.1.450899.3.579.2.910534-71-1541Fpkmtbh67415360 2..840.1.521533.3.579.2.134103-56-8217Muxagfu5171644 2.16.840.1.959925.3.579.2.814062-50-6784Nohmjef5671592 2.840.1.201704.3.579.2.795513-99-6037Megisns2422862 2.0.1.627921.3.579.2.811221-25-8061Lvchgjz7574076 2.0.1.246214.3.579.2.800509-79-6467Rrqqyac5117313 2.0.1.791869.3.579.2.884245-09-5360Jklwklr1504018 2.0.1.306983.3.579.2.172174-95-0628Zvunayd3712134 2.0.1.603300.3.579.2.722790-72-0436Mpjachc61380096 2.840.1.087186.3.579.2.727MedicaidParamount [id number] 0022phok-l8i1-3o2cq0f3-1v5g-545f-x8cqxo8mwsdpKutdjbkJcfgjr /[id number] 8551owzy-2q06-53c32b57-40c9-7y3q-[id number] 1397i1vu-pxl6-66w9-0vu9-6w9u8840qqbzXqzajiqJmnmhan96749041 2.16840.1.216992.3.579.2.264Kuhbgeg07813290 2.16.840.1.198715.3.579.2.531 Social History DateTypeDetailFacilityStart: 02-20-2024 End: 25-02-2706Nbw Assigned At [facility] Float: [place] Other start: 10-19-2020 End: 52-68-0187Gkdfkwf smoking statusEx-smoker (finding)[facility] Work Phone: Start: 49-25-9751Vpudewz smoking statusNeverExecutive Urology of [facility] Start: 88-96-3791Dfe [facility]igned At [facility]: 07-11-2021 End: 26-78-2018Zuwgfrs smoking status NHISNever smoked tobacco (finding) [facility]: 02-20-2024 End: 62-88-1838Gh alcohol useNo alcohol use-[facility] [address] DO Work Phone: Comment on above:Occasional coffee;Quit 1999;Start: 10-21-1979 End: 77-36-3945Oacfszz of tobacco useCurrent smokerNOMS HealthcareStart: 10-21-1979 End: 63-49-1819Kydxbja of tobacco useCigarette SmokerNOMS HealthcareStart: 07-11-2021 End: 37-84-9102Jtaptgx use and exposureSmokeless tobacco non-userNOMS Healthcare Start: 07-22-2024 End: 67-36-6199Qjykraxkl beverage intakeEx-drinker (finding)[facility] HealthcareHow often to you have a drink containing alcohol?NeverNOMS HealthcareStart: 77-47-1237Orjfrrc Commentcaffeine: coffee 1 cup a dayNOMS HealthcareStart: 39-52-3030Yuqyxl identityIdentifies as male gender (finding)[facility] Start: 52-43-5742Slo assigned at birthNot on [facility] Eyewitness Surveillance SystemStart: 05-24-2015 End: 06-46-1488HbgUlyc (finding)[facility] SystemH2Mob SystemStart: 71-47-5394VTZW Follow upSDOH Follow upOhiohealth Grove City Methodist Hospital Work Phone: Medical Equipment Procedure CodeEquipment CodeEquipment Original TextEquipment IdentifierDates Repair, hernia, umbilicalAbdominal hernia surgical mesh, composite-polymer ()[id number] FDAStart: 92-58-0018Zrexxriqxncspf shockwave lithotripsy (ESWL) with cystoscopic insertion of urinary stePolymeric ureteral stent()[id number] FDAStart: 05-24-2022 Spinal fixation plate, non-bioabsorbable()[id number] FDAStart: 03-15-2021 Spinal fixation plate, non-bioabsorbable()[id number] FDAStart: 03-15-2021 Spinal fixation plate, non-bioabsorbable()[id number] FDAStart: 03-15-2021 Intervertebral-body internal spinal fixation system ()[id number] FDAStart: 03-15-2021 Goals DatePatient GoalDesired Activity/State Functional Status EigmWmuyoemsdcMsxfrxIsssfata15-15-0528Aqlfdgp Health Questionnaire 2 item (PHQ- 2) [Reported][facility] SystemRmkplsyqoz29-03-5236Mpbldukvyv statusPatient at Baseline [facility] Work Phone: [phone]bxzqide statusPatient at Baseline [facility] Work Phone: [phone]ddneitq statusPatient at Baseline [facility] Work Phone: [phone]srnbjav StatusN/AExecutive [facility]09-24-2024Functional statusPatient at [facility] Work Phone: [phone] StatusN/AExecutive [facility] Jafeitob05-85-1863Lqkezavfaz status[facility] at [facility] Work Phone: [phone] statusPatient at [facility] Work Phone: [phone] statusPatient at [facility] Work Phone: [phone] statusPatient at [facility] Work Phone: [phone] [id number] StatusN/AExecutive [facility]rology of [facility] Mental Status Iqhk[id number] functionCognitive Status [facility] at [facility] Work Phone: [phone] functionCognitive Status [facility] at [facility] Work Phone: [phone] functionCognitive Status [facility] at [facility] Work Phone: [phone] functionCognitive Status [facility] Work Phone: [phone] functionCognitive Status [facility] Work Phone: [phone] functionCognitive Status [facility] at [facility] Work Phone: [phone] functionCognitive Status [facility] Work Phone: [phone] functionCognitive Status Patient Not at [facility] Work Phone: Clinical Notes 09-26-2021 to 08-12-2025 Note Date & [id number] History of Present illness Narrative* Kimberly Olivier LPN - 08/12/2025 3:32 PM EDT Refill request for Xanax. Last filled 05/17. Next office visit is 08/18. Medication is loaded. documented in this encounterSaint [facility] Health SystemUrpwdcxric24-20-8405 Telephone encounter Note* Telephone Encounter - Joann Briones LPN - 06/11/2025 9:27 AM EDT Pt requesting a refill on Hydrocodone Acetaminophen to [facility] in [place] [id number] Miscellaneous Notes* Telephone Encounter - Joann Briones LPN - 06/11/2025 9:27 AM EDT Pt requesting a refill on Hydrocodone Acetaminophen to [facility] [place] documented in this encounterSaint Luke's Health SystemIxcjjtkodf29-12-5942 Telephone encounter Note* Telephone Encounter - Dyan Gallagher - 02/11/2025 9:[address] is scanned in chart [facility] SystemJxdpgvennj22-02-3151 Miscellaneous Notes* Telephone Encounter - Dyan Gallagher - 02/11/2025 9:[address] is scanned in chart * Telephone Encounter - Dyan Gallagher - 02/11/2025 8:[address] again * Telephone Encounter - Dyan Gallagher - 02/08/2025 3:37 PM EDT Mri of c-spine is scanned into chart, waiting on the other report * Telephone Encounter - Dyan Gallagher - 02/08/2025 2:43 PM EDT Requested * Telephone Encounter - Ganga Hernandez MD - 02/08/2025 2:13 PM EDT Please get a copy of MRI C-spine and CT of the abdomen/Pelv done at [facility] this year. documented in this encounterSaint Luke's Health SystemOtohipwufn74-63-0314 Telephone encounter Note* Telephone Encounter - Dyan Gallagher - 02/11/2025 8:[address] again [facility] SystemVndevafojt45-05-0686 Telephone encounter Note* Telephone Encounter - Joann Briones LPN - 02/08/2025 4:58 PM EDT Pt requesting a refill on Hydrocodone Acetaminophen to [facility] [place] [id number] Miscellaneous Notes* Telephone Encounter - Joann Briones LPN - 02/08/2025 4:58 PM EDT Pt requesting a refill on Hydrocodone Acetaminophen to [facility] [place] [id number] Telephone encounter Note* Telephone Encounter - Dyan Gallagher - 02/08/2025 3:37 PM EDT Mri of c-spine is scanned into chart, waiting on the other report [address]pcdyjmeco56-75-2621 Telephone encounter Note* Telephone Encounter - Dyan Gallagher - 02/08/2025 2:43 PM EDT Requested [facility] SystemZjfwhnuvpv93-97-9696 Telephone encounter Note* Telephone Encounter - Ganga Hernandez MD - 02/08/2025 2:13 PM EDT Please get a copy of MRI C-spine and CT of the abdomen/Pelv done at [facility] this year. [facility] SystemVbifcmxyio01-10-5657 History of Present illness Narrative* Ganga Hernandez MD - 02/08/2025 1:00 PM EDT Images from the original note were not included. Rod Mathias is a 64 y.o. male presents with chief complaint of 3 month follow-up of chronic conditions (Review lab drawn 02/04/2025. Patient continues with fatigue and anxiety. He is not sure ifhe is taking Cymbalta, Propranolol, Glimepiride ) HPI: History of Present Illness The patient is a 64-year-old male who presents today for a routine visit. Daily discomfort is reported, including abdominal pain, joint pain, and headaches. Nausea and an upset stomach are also mentioned. Acid reflux has been experienced intermittently for the past week, which is attributed to his diet. Typical meals include scrambled eggs, sausage, toast, and coffee forbreakfast; a bologna sandwich for lunch; and a salad with chicken or a hot dog for dinner. Red meatis not consumed. Approximately 10 pounds have been lost, and no leg swelling is reported. No presence of blood in the stool is noted. Similar symptoms were recalled when initially prescribed metformin, which subsided upon switching to Rybelsus. However, these symptoms have recently resurfaced. The A1c level has increased from 6.6 to 6.9. Uncertainty about adherence to the glimepiride regimen is expressed. Arrangements with [facility] to refill medications as they deplete have been made, but not all medications have been receiveddue to a shortage of Rybelsus. Pain is experienced in the lower back, knees, elbows, and neck, particularly upon waking up in the morning. The pain typically subsides within 30 to 45 minutes. Ibuprofen is avoided due to potential kidney damage. Currently, vitamin D 50,000 units are taken once a week, with only 2 doses remaining. It is believed that Dr. Hernandez intends to continue this treatment. Uncertainty about the use of Cymbalta and propranolol is expressed. FAMILY HISTORY He reports no family history of heart issues. I have reviewed and reconciled the history and medication list with the patient today. HISTORIES: PAST MEDICAL HISTORY: Past Medical History: Diagnosis Date Anxiety Chronic kidney disease, stage 3a (HCC) (CMS/[facility]) Essential hypertension (CMS/HCC) History of CVA (cerebrovascular accident) History of vertebral fracture Hyperlipidemia ([facility]/HCC) Kidney stones MGUS (monoclonal gammopathy of unknown significance) Primary osteoarthritis involving multiple joints Stroke ([facility]/HCC) Tinnitus of both ears Type 2 diabetes mellitus with diabetic neuropathy ([facility]) SURGICAL HISTORY: Past Surgical History: Procedure Laterality Date CERVICAL SPINE SURGERY Dr. Henry COLONOSCOPY 2017 CYSTOSCOPY 06/05/2024 1 cm right calculus EXCISION Right 07/2022 shoulder cyst [facility] OTHER SURGICAL HISTORY 05/2022 stent removed from kidney (stone) UMBILICAL HERNIA REPAIR 07/26/2022 UMBILICAL HERNIA REPAIR 07/2022 AV[facility] URETERAL STENT PLACEMENT Left 05/2022 Dr. heath SOCIAL HISTORY: Social History Tobacco Use Smoking status: Former Current packs/day: 0.00 Types: Cigarettes Start date: 10/21/1979 Quit date: 10/21/1999 Years since quittin.3 Smokeless tobacco: Never Vaping Use Vaping status: Never Used Substance Use Topics Alcohol use: Not Currently Comment: caffeine: coffee 1 cup a day Drug use: Never Depression: Not at risk (02/08/2025) PHQ-2 PHQ-2 Score: 0 FAMILY HISTORY: Family History Problem Relation Name Age of Onset Hypertension Mother Mother No Known Problems Father Diabetes Brother Brother Hypertension Brother Brother No Known Problems Daughter MEDICATIONS: Current Outpatient Medications Medication Instructions ALPRAZolam (XANAX) 0.5 mg, Oral, Every 8 hours PRN amLODIPine (NORVASC) 5 mg, Oral, Daily ASPIRIN 81 MG chewable tablet Every 24 hours atorvastatin (LIPITOR) 40 mg, Oral, Nightly DULoxetine (CYMBALTA) 30 mg, Oral, Daily, Do not crush or chew. ergocalciferol (VITAMIN D-2) 1.25 mg, Oral, Weekly glimepiride (Amaryl) 1 MG tablet take 1 tablet by mouth every morning with meals HYDROcodone-acetaminophen (Fortine) 5-325 MG tablet 1-2 tablets, Oral, Every 4 hours PRN losartan (COZAAR) 100 mg, Oral, Every morning propranolol LA (INDERAL LA) 80 mg, Oral, Daily Rybelsus 14 MG tablet TAKE 1 TABLET BY MOUTH EVERY MORNING BEFORE MEALS ALLERGIES: Allergies Allergen Reactions Lisinopril-Hydrochlorothiazide Other Reaction(s): Other foggy-headed , out of sorts Buspar [Buspirone] Other Lower extremity edema Metformin Other Reaction(s): fatigue PHYSICAL EXAM: Visit Vitals BP 118/78 (BP Location: Left arm, Patient Position: Sitting) Pulse 85 Ht 5' 10 Wt 232 lb SpO2 98% BMI 33.29 kg/m Smoking Status Former BSA 2.28 m BP Readings from Last 3 Encounters: 02/08/25 118/78 10/28/24 130/74 08/20/24 122/60 Wt Readings from Last 3 Encounters: 02/08/25 232 lb 10/28/24 243 lb 08/20/24 242 lb Physical Exam Constitutional: Appearance: Normal appearance. He is overweight. HENT: Head: Normocephalic. Mouth/Throat: Mouth: Mucous membranes are moist. Pharynx: Oropharynx is clear. Eyes: Extraocular Movements: Extraocular movements intact. Neck: Thyroid: No thyromegaly. Vascular: No carotid bruit. Cardiovascular: Rate and Rhythm: Normal rate and regular rhythm. Heart sounds: Normal heart sounds. No murmur heard. Pulmonary: Effort: No respiratory distress. Breath sounds: Normal breath sounds. Abdominal: General: Bowel sounds are normal. Palpations: Abdomen is soft. There is no mass. Tenderness: There is no abdominal tenderness. Musculoskeletal: General: No swelling. Cervical back: Neck supple. No tenderness. Right lower leg: No edema. Left lower leg: No edema. Lymphadenopathy: Cervical: No cervical adenopathy. Skin: General: Skin is warm and dry. Neurological: Mental Status: He is oriented to person, place, and time. Psychiatric: Mood and Affect: Mood normal. Thought Content: Thought content normal. Judgment: Judgment normal. Results Labs - Hemoglobin A1c: 6.9 - Fasting Blood Sugar: 127 mg/dL - Vitamin D: 85 ng/mL - Parathyroid Hormone (PTH): 83 pg/mL - Glomerular Filtration Rate (GFR): 55 and 52 mL/min - Potassium: Normal - Sodium: Normal - Total Protein: Normal - Calcium: Normal - Liver Function Tests: Normal ASSESSMENT AND PLAN: Assessment & Plan 1. Type 2 diabetes mellitus with diabetic nephropathy, without long-term current use of insulin ([facility]) (Primary) - Protein, total and protein electrophoresis with immunofixation; Future - Immunoglobulin free LT chains blood; Future - Sedimentation rate, automated; Future - Comprehensive metabolic panel; Future - Hemoglobin a1c with eag; Future -Pt. educated on carb counting, portion control, importance of exercising, reading food labels, healthy food choices. - His A1c has increased from 6.6 to 6.9. - Currently on Rybelsus; may not be taking glimepiride (Amaryl) consistently. - Advised to ensure he takes glimepiride with his first main meal. - A lipid panel will be ordered to monitor cholesterol levels. 2. Stage 3a chronic kidney disease (HCC) ([facility]) - Comprehensive metabolic panel; Future -stable, continue to monitor 3. Essential hypertension ([facility]) - Comprehensive metabolic panel; Future -Pt. is to limit sodium to 1800 mg per day. Avoid canned soups & vegetables, boxed foods, like rice & frozen TV dinners. Do not add salt, garlic or onion salt to your food. Use Mrs. Kohli which has no sodium. High/Low sodium list given to patient. 4. Primary osteoarthritis involving multiple joints - Protein, total and protein electrophoresis with immunofixation; Future - Immunoglobulin free LT chains blood; Future - Sedimentation rate, automated; Future - Rheumatoid factor; Future - C-reactive protein; Future - GEORGE, IFA RFX 11 KASSY MULTIPLEX; Future - Reports joint pain, particularly in the mornings, which subsides after 30-45 minutes. - This is consistent with osteoarthritis. - Advised to engage in regular exercise, yoga, and stretching. - Umyp-lcr-homhvxt Tylenol recommended for pain management, avoiding NSAIDs like ibuprofen due to kidney concerns. -advised to stop lipitor for a month, if his aches and pains continue, then he will bew advised to obtain the above labwork 5. MEGAN (generalized anxiety disorder) (CMS/HCC) -pt is going home to check to see if he is still taking his cymbalta 6. Primary insomnia -takes OTC sleep aid 7. Monoclonal paraproteinemia - Protein, total and protein electrophoresis with immunofixation; Future - Immunoglobulin free LT chains blood; Future - Sedimentation rate, automated; Future - GEORGE, IFA RFX 11 KASSY MULTIPLEX; Future - Protein, total and protein electrophoresis with immunofixation - Immunoglobulin free LT chains blood - Sedimentation rate, automated - GEORGE, IFA RFX 11 KASSY MULTIPLEX 8. Restless legs -denies issues today 9. Microscopic hematuria -no hematuria noted on urine 10. Metabolic dysfunction-associated steatotic liver disease (MASLD) -fibroscan ordered - History of fatty liver disease, likely exacerbated by diet high in saturated fats. - A liver ultrasound will be ordered to assess the extent of fatty liver disease. - Advised to follow a Mediterranean diet rich in fish, chicken, fruits, and vegetables, and to avoid foods high in saturated fats. 11. Other fatigue - TSH; Future - Rheumatoid factor; Future 12. Pure hypercholesterolemia (CMS/HCC) - Lipid panel; Future 13. Prostate cancer screening - PSA; Future 14. Gastroesophageal Reflux Disease (GERD). - Reports recent onset of acid reflux, particularly after certain meals. - Advised to avoid foods that trigger symptoms. - Consider fzpm-vfx-nlzafsr antacids if needed. 15. Vitamin D Deficiency. - Vitamin D levels have improved significantly from 18 to 85 with supplementation. - Approximately two more weeks of current prescription (50,000 IU weekly). - Will transition to vhtr-kgo-asifvss vitamin D supplements daily 6. Health Maintenance. - Blood pressure well-controlled at 118/78 mmHg. - Thyroid function test and CBC will be ordered to rule out anemia and thyroid dysfunction as causes of fatigue. Patient was seen and examined with Dwight Bustamante CNP. History was confirmed and verified. Begum elements of the exam were also completed. Assessment and plan were reviewed and addended as needed. Agree with documentation above. documented in this encounterSaint Luke's Health [id number] Evaluation note* Diagnosis Type 2 diabetes mellitus with diabetic nephropathy, without long-term current use of insulin (CMS/HCC)- Primary Stage 3a chronic kidney disease (HCC) (CMS/HCC) Essential hypertension (CMS/HCC) Unspecified essential hypertension Primary osteoarthritis involving multiple joints MEGAN (generalized anxiety disorder) (CMS/HCC) Generalized anxiety disorder Primary insomnia Persistent disorder of initiating or maintaining sleep Monoclonal paraproteinemia Restless legs Restless legs syndrome (RLS) Microscopic hematuria Metabolic dysfunction-associated steatotic liver disease (MASLD) Other fatigue Pure hypercholesterolemia (CMS/HCC) Pure hypercholesterolemia Prostate cancer screening Special screening for malignant neoplasm of prostate documented in this encounter [facility] SystemRduuqpreje64-58-6389 [place] [address] Neurology Progress Note Signed Patient: Rod Mathias MR#: [id number] : 1960 Acct:[id number] Age/Sex: 64 / M Adm Date: 5 Loc: Room: [address] [place] [address] Type: ADM INOo Attending Dr: Maurice Foote MD Copies to: ~ Date of Service: 12/31/2024 Exam Physical Exam Vital Signs: Temp Pulse Resp BP Pulse Ox O2 Del Method 98.0 F 68 20 137/79 97 Room Air 12/31/24 08:00 12/31/24 08:00 12/31/24 08:00 12/31/24 08:00 12/31/24 08:00 12/31/24 08:00 Objective Vital Signs Vital Signs: Vital Signs - 24 hr 12/30/24 12:00 12/30/24 16:00 12/30/24 16:00 Temperature 97.9 F Pulse Rate 63 67 Respiratory Rate 16 18 Blood Pressure 112/67 138/71 02 Sat by Pulse Oximetry 95 96 Oxygen Delivery Method Room Air Room Air Room Air 12/30/24 18:00 12/30/24 20:46 12/30/24 20:47 Temperature 97.8 F 97.8 F Pulse Rate 63 66 Respiratory Rate 18 18 Blood Pressure 117/68 149/81 H 02 Sat by Pulse Oximetry 97 98 Oxygen Delivery Method Room Air Room Air Room Air 12/31/24 00:00 12/31/24 04:00 12/31/24 08:00 Temperature 98.0 F 98.0 F Pulse Rate 60 60 68 Respiratory Rate 18 18 20 Blood Pressure 132/72 133/66 137/79 02 Sat by Pulse Oximetry 98 96 97 Oxygen Delivery Method Room Air Room Air Room Air 12/31/24 08:00 Temperature Pulse Rate Respiratory Rate Blood Pressure 02 Sat by Pulse Oximetry Oxygen Delivery Method Room Air Labs 12/31/24 06:26 12/31/24 06:26 Therapy Recommendations Therapy Recommendations: OT Recommendations OT Recommended Discharge Inpatient Rehab Unit Location PT Recommendations PT Recommended Discharge Inpatient Rehab Unit Location PT Recommended Services at Physical Therapy Discharge Assessment/Plan (1) Right sided weakness: (2) B12 deficiency: Plan CONSULT REASON: Worsening right-sided weakness SUBJECTIVE: He still feels like the right side of his face feels a little funny and the right lower extremity is a little weak compared to usual, but overall is feelingsignificantly better compared to yesterday.His speech issues have cleared up. He is thinking more clearly today. EXAMINATION: In no distress. No deformities or trauma. Limbs seem well-perfused. No significant edema. Normal work of breathing. Visualized skin is generally intact and without lesions. Affect normal. Patient is alert. Attention normal. Speech is generally limited and nondysarthric, though sometimes he exhibitsmild stuttering/stammering. Pupils are equal and reactive. Ocular motility is full. No nystagmus. Facial sensation is normal. Hearing is normal. Facial strength is normal. Tongue is midline. No limb drift or pronator drift in upper extremities. Left lower extremity with full strength. Right lower extremity with some giveaway weakness and effort was questionable. No significant tremors. Reflexes +3/4 throughout and especially brisk at the right patella. Light touch is normal. No limb ataxia. DATA REVIEW: -A1c 6.8% -Ionized calcium 1.25 (normal) -Total cholesterol 140, LDL 67 -Initial leukocytosis 13 now down to 7.7 -MRI brain without contrast December 29, 2024 is without acute findings -MRI cervical spine December 20, 2020 showed posterior disc herniation at C5-6 with moderate to severe central spinal canal stenosis and cord compression and myelopathy -MRI lumbar spine May 02, 2022 showed moderate to severe bilateral neuroforaminal stenosis at L5-S1, and other significant degenerative changes -MRI brain without contrast from November 05, 2018 shows a tiny nonacute lacunar infarction in the right thalamus -Routine EEG July 12, 2023 was normal -MRI cervical spine December 30, 2024 shows C5-6 postsurgical fusion without complication, similar findings of myelomalacia of the cord at the C5-6 level. Multilevel discovertebral degenerative changes,no developing new regions of cord edema or hemorrhage. 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 He presents with a number of symptoms such as acute on chronic weakness in his right lower extremity, paresthesias to the right lower face, blurred vision, intermittent speech changes with stuttering, and issues with cognition and concentration. He has presented on past occasions with similar symptoms. Oftenhas a headache to some extent as well. He presented back in October 2018 with similar symptoms to now, though those were left-sided. MRI brain does not offer explanation for any of his presenting symptoms and looks normal. He does not have any objective evidence of acute or chronic ischemic stroke. I do not think he has had previous stroke. His MRI cervical spine demonstrates chronic myelomalacia at the C5-6 level and no acute findings. He has chronic complaints of cognitive impairment. His B12 is low and we will replete. PLAN: 1. One-time dose of cyanocobalamin 1000 mcg IM and then 1000 mcg orally daily 2. Outpatient neuropsych evaluation 3. No other inpatient recommendations from neurology at this time Documented By: Mikey Rose DO 12/31/24 1149 Signed By: 12/31/24 1533 [facility]03-13-2025 Discharge summary Author Maurice Foote [facility]Note Date/TimeMarch 2024 12:[place]pm[place] [address] Discharge Summary Signed Patient: Rod Mathias MR#: [id number] : 1960 Acct:[id number] Age/Sex: 64 / M Adm Date: 5 Loc: 3T Room: [address] [place] [address]: Maurice Foote MD Copies to: MD Ganga Patel MD~ Providers Date of Discharge: 12/31/24 Discharging Provider: Maurice Foote Primary Care Provider: Ganga Hernandez Consults: 12/29/24 15:23 Consult to Telemedicine Stat Comment: Reason for Consult: stroke alert/standby 12/29/24 16:47 Consult to Neurology Routine Comment: Consulting Provider: Mikey Rose Reason For Exam: Worsening right-sided weakness Has Provider Been Notified: Yes Date of Notification: 12/30/24 Time of Notification: 07:11 12/30/24 08:48 Consult to Occupational Therapy Routine Comment: Physician Instructions: Consult to OT for:: Evaluation and Treat Consult to Physical Therapy Routine Comment: Physician Instructions: Consult to PT for:: Evaluation and Treat 12/30/24 14:04 Consult to Physiatry Routine Comment: Consulting Provider: [facility] - Phys Med - Rehab Reason For Exam: discharge planning Has Provider Been Notified: Yes Date of Notification: 12/30/24 Time of Notification: 14:05 Discharge Diagnosis (1) Right sided weakness: Final Diagnosis Final Discharge Diagnosis: Right-sided weakness -Vitamin B12 deficiency -Myelomalacia of the cord at C5-C6. Summary Hospital Course Hospital course: This is a 66-year-old male with C5-C6 compressive myelopathy status post C5-C6 anterior cervical discectomy fusion in 2020, BPH, restless leg syndrome, CKD, diabetes mellitus type 2, hyperlipidemia, hypertension presented with a chief complaints of worsening right-sided weakness which she noticed 1day before presentation. He also mentioned that he had a history of stroke with right-sided weakness at baseline. But on further investigation no documented history or imaging findings of stroke. He also complains of having new numbness in the right lower face. Patient also got 1 dose of Lasix in the ED. in the ED he was hemodynamically stable lab work shows WBC of 13, hemoglobin 14.5, INR of 1 no rmal electrolytes, creatinine of 1.74 and normal liver enzymes, troponin of 4 urine tox positive for opioids and benzodiazepines. Head CT showed no acute findings CTA of the head shows no occlusion critical stenosis or dissection of the extracranial or intracranial circulation. Thyroid nodule measuring 14 mm. MRI of the brain was done on December 29, 2024 which shows No acute intracranial process. Mild chronic small vessel ischemic changes. Patient was admitted in the regular nursing floor. Workupfor stroke was done. MRI of the brain was unremarkable for acute ischemic stroke. MRI of the cervical spine was done - C5-6 postsurgical fusion without complication. 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 Multilevel discovertebral degenerative changes. Patent central canal. No developing new regions of cord edema or hemorrhage. Neurologist was consulted. His TSH was within normal limits and vitamin B12 waslow. He is recommended to continue on vitamin B12 on discharge.PT OT recommended inpatient rehab. PMR doctor evaluated the patient and recommended skilled nursingfacility. Today his symptoms are resolved he does not have any right-sided weakness. He complained of shortness of breath yesterday but was breathing comfortably on room air. He is completely asymptomatic today. Deniesany complaints and he is being discharged to care home facility. Condition Condition at Discharge: Stable Time Spent with Patient Time spent providing/coordinating discharge services (# min): 37 Discharge Plan Discharge Plan Patient Disposition: Half-Way Facility Activity: Ambulate as Tolerated Diet: Low-Sodium and Low-Cholesterol Additional Instructions: SNF TO MANAGE: PT/OT to eval and treat Monitor VS per protocol Monitor FSBS Monitor Neuro. assessment--Right sided weakness Care to be managed by SNF providers Prescriptions: New cyanocobalamin (vitamin B-12) [Vitamin B-12] 1,000 mcg tablet 1,000 mcg PO Q30D 60 Days Qty: 2 0RF Continued amlodipine 5 mg tablet 5 mg PO QAM aspirin 81 mg Capsule 81 mg PO QAM hydrocodone-acetaminophen 5-325 mg tablet 1 - 2 tab PO Q4-6H PRN (Reason: Pain) Patient Comments: take 1 tablet by mouth twice a day if needed Rx Instructions: Hip pain propranolol 80 mg Capsule,Extended Release 24hr 80 mg PO DAILY atorvastatin [Lipitor] 40 mg tablet 40 mg PO QPM Rybelsus 7 mg Tablet 14 mg PO DAILY alprazolam 0.5 mg tablet 0.5 mg PO Q8H PRN (Reason: Anxiety) Patient Comments: take 1 tablet by mouth every 8 hours if needed for anxiety losartan 100 mg tablet 100 mg PO DAILY Patient Comments: take 1 tablet by mouth once daily ergocalciferol (vitamin D2) [Vitamin D2] 1,250 mcg (50,000 unit) capsule 50,000 unit PO QWEEK duloxetine 30 mg capsule,delayed release(DR/EC) 30 mg PO DAILY glimepiride 1 mg tablet 1 mg PO QAM Follow Up: [facility] [Outside] (Please call to schedule a post hospital appointment.) Exam Physical Exam Vital Signs: Temp Pulse Resp BP Pulse Ox O2 Del Method 98.0 F 64 18 170/107 H 97 Room Air 12/31/24 12:00 12/31/24 12:00 12/31/24 12:00 12/31/24 12:00 12/31/24 12:00 12/31/24 12:00 Narrative: General: Awake alert, no acute distress HEENT: head atraumatic, normocephalic, moist mucous membranes Neck: supple no masses, no lymphadenopathy CVS: regular rate and rhythm, no murmurs or gallops Respiratory: clear to auscultation bilaterally, no wheezing or crackles, symmetric expansion GI: soft, nondistended, nontender, positive bowel sounds with no organomegaly Extremity: moves all extremities, no restrictions of movements, no calf tenderness No diminished sensation Neuro: AOx3, CN II-VII intact. Moves all extremities in all planes of motion. Skin: intact no rashes or lesions Diagnostic Studies Completed and Pending Studies Pending studies at discharge: 01/01/25 05:00 Complete Blood Count Auto Diff IN AM Comprehensive Metabolic Panel [CHEM] IN AM 01/02/25 05:00 Complete Blood Count Auto Diff IN AM Comprehensive Metabolic Panel [CHEM] IN AM Labs on day of discharge: 12/31/24 11:06: POC Glucose 137 12/31/24 06:26: Corrected WBC 8.5, Uncorrected WBC Count 8.5, RBC 4.25, Hgb 13.4, Hct 40.0, MCV 94.2, MCH 31.5, MCHC 33.4, RDW 14.1, Plt Count 211, MPV 8.0, Neut % (Auto) 48.3, Lymph % (Auto) 41.4, [place] % (Auto) 7.9, Eos % (Auto) 1.7, Baso % (Auto) 0.7, Nucleat RBC Rel Count 0.1, Neut # (Auto) 4.1,Lymph # (Auto) 3.5, [place] # (Auto) 0.7, Eos # (Auto) 0.1, Baso # (Auto) 0.1, PHA Creatinine Clear 62.64, Sodium 140, Potassium 4.0, Chloride 114 H, Carbon Dioxide 19.4 L, Anion Gap 10.6, BUN 20, Creatinine 1.46 H, Est GFR (CKD-EPI) 52.710, Glucose 108 H, Calcium 8.4 L, Total Bilirubin 0.6, AST 21, ALT 29, Alkaline Phosphatase 84, Total Protein 6.4, Albumin 3.8, Globulin 2.6, Albumin/Globulin Ratio1.5 12/31/24 06:15: POC Glucose 110 12/30/24 20:26: POC Glucose 111 12/30/24 17:03: POC Glucose 140 12/30/24 06:41: Vitamin B12 175 L, TSH 3rd Generation 1.52 Documented By: Maurice Foote MD 12/31/24 1245 Signed By: <Electronically signed by Maurice Foote MD> 12/31/24 1252 [facility] Work Phone: [phone] [place] [address] Discharge Summary Signed Patient: Rod Mathias MR#: [id number] : 1960 Acct:[id number] Age/Sex: 64 / M Adm Date: 5 Loc: Room: [address] [place] [address]: Maurice Foote MD Copies to: MD Ganga Patel MD~ Providers Date of Discharge: 12/31/24 Discharging Provider: Maurice Foote Primary Care Provider: Ganga Hernandez Consults: 12/29/24 15:23 Consult to Telemedicine Stat Comment: Reason for Consult: stroke alert/standby 12/29/24 16:47 Consult to Neurology Routine Comment: Consulting Provider: Mikey Rose Reason For Exam: Worsening right-sided weakness Has Provider Been Notified: Yes Date of Notification: 12/30/24 Time of Notification: 07:11 12/30/24 08:48 Consult to Occupational Therapy Routine Comment: Physician Instructions: Consult to OT for:: Evaluation and Treat Consult to Physical Therapy Routine Comment: Physician Instructions: Consult to PT for:: Evaluation and Treat 12/30/24 14:04 Consult to Physiatry Routine Comment: Consulting Provider: [facility] - [facility] - Rehab Reason For Exam: discharge planning Has Provider Been Notified: Yes Date of Notification: 12/30/24 Time of Notification: 14:05 Discharge Diagnosis (1) Right sided weakness: Final Diagnosis Final Discharge Diagnosis: Right-sided weakness -Vitamin B12 deficiency -Myelomalacia of the cord at C5-C6. Summary Hospital Course Hospital course: This is a 66-year-old male with C5-C6 compressive myelopathy status post C5-C6 anterior cervical discectomy fusion in 2020, BPH, restless leg syndrome, CKD, diabetes mellitus type 2, hyperlipidemia, hypertension presented with a chief complaints of worsening right-sided weakness which she noticed 1day before presentation. He also mentioned that he had a history of stroke with right-sided weakness at baseline. But on further investigation no documented history or imaging findings of stroke. He also complains of having new numbness in the right lower face. Patient also got 1 dose of Lasix in the ED. in the ED he was hemodynamically stable lab work shows WBC of 13, hemoglobin 14.5, INR of 1 no rmal electrolytes, creatinine of 1.74 and normal liver enzymes, troponin of 4 urine tox positive for opioids and benzodiazepines. Head CT showed no acute findings CTA of the head shows no occlusion critical stenosis or dissection of the extracranial or intracranial circulation. Thyroid nodule measuring 14 mm. MRI of the brain was done on December 29, 2024 which shows No acute intracranial process. Mild chronic small vessel ischemic changes. Patient was admitted in the regular nursing floor. Workupfor stroke was done. MRI of the brain was unremarkable for acute ischemic stroke. MRI of the cervical spine was done - C5-6 postsurgical fusion without complication. 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 Multilevel discovertebral degenerative changes. Patent central canal. No developing new regions of cord edema or hemorrhage. Neurologist was consulted. His TSH was within normal limits and vitamin B12 waslow. He is recommended to continue on vitamin B12 on discharge.PT OT recommended inpatient rehab. PMR doctor evaluated the patient and recommended skilled nursingfacility. Today his symptoms are resolved he does not have any right-sided weakness. He complained of shortness of breath yesterday but was breathing comfortably on room air. He is completely asymptomatic today. Deniesany complaints and he is being discharged to care home facility. Condition Condition at Discharge: Stable Time Spent with Patient Time spent providing/coordinating discharge services (# min): 37 Discharge Plan Discharge Plan Patient Disposition: Half-Way Facility Activity: Ambulate as Tolerated Diet: Low-Sodium and Low-Cholesterol Additional Instructions: SNF TO MANAGE: PT/OT to eval and treat Monitor VS per protocol Monitor FSBS Monitor Neuro. assessment--Right sided weakness Care to be managed by SNF providers Prescriptions: New cyanocobalamin (vitamin B-12) [Vitamin B-12] 1,000 mcg tablet 1,000 mcg PO Q30D 60 Days Qty: 2 0RF Continued amlodipine 5 mg tablet 5 mg PO QAM aspirin 81 mg Capsule 81 mg PO QAM hydrocodone-acetaminophen 5-325 mg tablet 1 - 2 tab PO Q4-6H PRN (Reason: Pain) Patient Comments: take 1 tablet by mouth twice a day if needed Rx Instructions: Hip pain propranolol 80 mg Capsule,Extended Release 24hr 80 mg PO DAILY atorvastatin [Lipitor] 40 mg tablet 40 mg PO QPM Rybelsus 7 mg Tablet 14 mg PO DAILY alprazolam 0.5 mg tablet 0.5 mg PO Q8H PRN (Reason: Anxiety) Patient Comments: take 1 tablet by mouth every 8 hours if needed for anxiety losartan 100 mg tablet 100 mg PO DAILY Patient Comments: take 1 tablet by mouth once daily ergocalciferol (vitamin D2) [Vitamin D2] 1,250 mcg (50,000 unit) capsule 50,000 unit PO QWEEK duloxetine 30 mg capsule,delayed release(DR/EC) 30 mg PO DAILY glimepiride 1 mg tablet 1 mg PO QAM Follow Up: [facility] [[facility]] (Please call to schedule a post hospital appointment.) Exam Physical Exam Vital Signs: Temp Pulse Resp BP Pulse Ox O2 Del Method 98.0 F 64 18 170/107 H 97 Room Air 12/31/24 12:00 12/31/24 12:00 12/31/24 12:00 12/31/24 12:00 12/31/24 12:12/31/24 12:00 Narrative: General: Awake alert, no acute distress HEENT: head atraumatic, normocephalic, moist mucous membranes Neck: supple no masses, no lymphadenopathy CVS: regular rate and rhythm, no murmurs or gallops Respiratory: clear to auscultation bilaterally, no wheezing or crackles, symmetric expansion GI: soft, nondistended, nontender, positive bowel sounds with no organomegaly Extremity: moves all extremities, no restrictions of movements, no calf tenderness No diminished sensation Neuro: AOx3, CN II-VII intact. Moves all extremities in all planes of motion. Skin: intact no rashes or lesions Diagnostic Studies Completed and Pending Studies Pending studies at discharge: 01/01/25 05:00 Complete Blood Count Auto Diff IN AM Comprehensive Metabolic Panel [CHEM] IN AM 01/02/25 05:00 Complete Blood Count Auto Diff IN AM Comprehensive Metabolic Panel [CHEM] IN AM Labs on day of discharge: 12/31/24 11:06: POC Glucose 137 12/31/24 06:26: Corrected WBC 8.5, Uncorrected WBC Count 8.5, RBC 4.25, Hgb 13.4, Hct 40.0, MCV 94.2, MCH 31.5, MCHC 33.4, RDW 14.1, Plt Count 211, MPV 8.0, Neut % (Auto) 48.3, Lymph % (Auto) 41.4, [place] % (Auto) 7.9, Eos % (Auto) 1.7, Baso % (Auto) 0.7, Nucleat RBC Rel Count 0.1, Neut # (Auto) 4.1,Lymph # (Auto) 3.5, [place] # (Auto) 0.7, Eos # (Auto) 0.1, Baso # (Auto) 0.1, PHA Creatinine Clear 62.64, Sodium 140, Potassium 4.0, Chloride 114 H, Carbon Dioxide 19.4 L, Anion Gap 10.6, BUN 20, Creatinine 1.46 H, Est GFR (CKD-EPI) 52.710, Glucose 108 H, Calcium 8.4 L, Total Bilirubin 0.6, AST 21, ALT 29, Alkaline Phosphatase 84, Total Protein 6.4, Albumin 3.8, Globulin 2.6, Albumin/Globulin Ratio1.5 12/31/24 06:15: POC Glucose 110 12/30/24 20:26: POC Glucose 111 12/30/24 17:03: POC Glucose 140 12/30/24 06:41: Vitamin B12 175 L, TSH 3rd Generation 1.52 Documented By: Maurice Foote MD 12/31/24 1245 Signed By: 12/31/24 1252 [facility]03-12-2025 Consult note Author Amrit Fleming [facility] HospitalNote Date/TimeMarch 2024 9:[place] [address] Physiatry (Rehab) Consult Note Signed Patient: Rod Mathias MR#: [id number] : 1960 Acct:[id number] Age/Sex: 64 / M Adm Date: 5 Loc: 3T Room: [address] [place] [address] Type: ADM INOo Attending Dr: Maurice Foote MD Copies to: MD Amrit Patel MD Robert L Hill, MD~ HPI Consult Date: 12/30/24 Requesting Physician: Maurice Foote MD Primary Care Provider: Ganga Hernandez MD Consult Narrative Reason for consult: Evaluation for inpatient rehab HPI: Mr. Mathias is a 64 year old male with significant past medical history of ischemic stroke on 2019 with chronic right-sided deficit, BPH, restless leg syndrome, CKD, diabetes mellitus type 2, hyperlipidemia, hypertension who presented due to worsening right sided weakness. MRI brain negative for acute CVA. Pending some further workup (UA, ECHO). Patient lives alone in a 2 story home with 1 step to enter. IND at baseline. Worked with therapy. Ambulated 100' Min A-CGA. Review of Systems Review of Systems All other systems reviewed & are negative unless noted below or in HPI [facility] Medical History BPH (benign prostatic hyperplasia) Arthritis hips Problem List clean-up per request of Phys. EHR Cmte Back pain was told possible fracture vertebra Problem List clean-up per request of Phys. EHR Cmte Restless legs left leg Numbness and tingling of leg left leg CKD (chronic kidney disease) stage 3 Problem List clean-up per request of Phys. 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 EHR Cmte Hx of renal calculi Hyperlipidemia Hypertension Surgical History History of renal stent H/O colonoscopy H/O hernia repair umbilical Hx of cystoscopy stone basket Problem List clean-up per request of Phys. EHR Cmte Hx of cervical spine surgery anterior Problem List clean-up per request of Phys. EHR Cmte Hx of lithotripsy Family History Brother Diabetes Mother Hypertension Father Medical history unknown Social History Smoking Status: Former smoker Tobacco Type: cigarettes Substance Use Type: None Substance Abuse Comment: occasional social alcohol use Meds Medications and Allergies Allergies atb Allergy (Uncoded 08/09/24 18:19) bladder problem Home Medications amlodipine 5 mg tablet 5 mg PO QAM htn 02/22/21 [History Confirmed 12/29/24] atorvastatin 40 mg tablet (Lipitor) 40 mg PO QPM hyperlipidemia 07/12/22 [History Confirmed 12/29/24] aspirin 81 mg capsule 81 mg PO QAM 10/02/22 [History Confirmed 12/29/24] hydrocodone 5 mg-acetaminophen 325 mg tablet 1 - 2 tab PO Q4-6H PRN Pain 10/02/22 [History Confirmed 12/29/24] semaglutide 7 mg tablet (Rybelsus) 14 mg PO DAILY DM 02/05/23 [History Confirmed 12/29/24] alprazolam 0.5 mg tablet 0.5 mg PO Q8H PRN Anxiety 06/07/23 [History Confirmed 12/29/24] losartan 100 mg tablet 100 mg PO DAILY 06/07/23 [History Confirmed 12/29/24] propranolol 80 mg capsule,24 hr,extended release 80 mg PO DAILY 07/24/23 [History Confirmed 12/29/24] ergocalciferol (vitamin D2) 1,250 mcg (50,000 unit) capsule (Vitamin D2) 50,000 unit PO QWEEK 08/10/24 [History Confirmed 12/29/24] duloxetine 30 mg capsule,delayed release 30 mg PO DAILY 12/29/24 [History Confirmed 12/29/24] glimepiride 1 mg tablet 1 mg PO QAM 12/29/24 [History Confirmed 12/29/24] Exam Physical Exam Vital Signs: Temp Pulse Resp BP Pulse Ox O2 Del Method 97.5 F L 63 16 112/67 95 Room Air 12/30/24 08:00 12/30/24 12:00 12/30/24 12:00 12/30/24 12:00 12/30/24 12:00 12/30/24 12:00 Narrative: NAD. Lying in bed Extremities well perfused No respiratory distress EVERETTE. Strength 5/5 BUE/BLE Speech is normal. No dysarthria or aphasia No facial droop Results - Phys. Rehab Labs Labs: Laboratory Results - last 24 hr 12/29/24 12/29/24 12/29/24 15:24 15:25 15:29 Corrected WBC 13.0 H Uncorrected WBC Count 13.0 H RBC 4.66 Hgb 14.5 POC Hgb 15.6 Hct 43.7 POC Hct 46.0 MCV 93.9 MCH 31.2 MCHC 33.3 RDW 14.3 Plt Count 261 MPV 8.3 Neut % (Auto) 68.2 Lymph % (Auto) 24.4 [place] % (Auto) 6.3 Eos % (Auto) 0.6 Baso % (Auto) 0.5 Nucleat RBC Rel Count 0.1 Neut # (Auto) 8.9 H Lymph # (Auto) 3.2 [place] # (Auto) 0.8 Eos # (Auto) 0.1 Baso # (Auto) 0.1 Monocyte Dist Width 18.13 Platelet Estimate Normal Plt Morphology Comment Normal RBC Morphology Normal PT 11.7 INR 1.0 APTT 23.2 L PHA Creatinine Clear 53.00 POC Sodium 144 Sodium 140 POC Potassium 4.4 Potassium 4.2 POC Chloride 109.0 Chloride 110 H Carbon Dioxide 22.2 POC Total CO2 25 Anion Gap 12.0 POC BUN 25 BUN 20 Creatinine 1.74 H POC Creatinine 1.9 H Est GFR (CKD-EPI) 42.703 Glucose 136 H POC Whole Bld Glucose 133 H POC Glucose 134 POC Glucose Comment Glu2: cleaned meter Estimat Average Glucose Hemoglobin A1c Calcium 9.4 POC Ioniz Calcium Terrell 1.25 Phosphorus Magnesium Total Bilirubin 0.7 AST 25 ALT 36 Alkaline Phosphatase 96 Total Creatine Kinase 76 Troponin I High Sens 4 Total Protein 7.7 Albumin 4.5 Globulin 3.2 Albumin/Globulin Ratio 1.4 Triglycerides Cholesterol LDL Cholesterol, Calc VLDL Cholesterol HDL Cholesterol Cholesterol/HDL Ratio Urine Opiates Screen Ur Barbiturates Screen Ur Phencyclidine Scrn Ur Amphetamines Screen U Benzodiazepines Scrn Urine Cocaine Screen U Marijuana (THC) Screen SARS-CoV-2 Rap RNA(RT-PCR) 12/29/24 12/29/24 12/30/24 16:15 17:42 06:41 Corrected WBC Uncorrected WBC Count RBC Hgb POC Hgb Hct POC Hct MCV MCH MCHC RDW Plt Count MPV Neut % (Auto) Lymph % (Auto) [place] % (Auto) Eos % (Auto) Baso % (Auto) Nucleat RBC Rel Count Neut # (Auto) Lymph # (Auto) [place] # (Auto) Eos # (Auto) Baso # (Auto) Monocyte Dist Width Platelet Estimate Plt Morphology Comment RBC Morphology PT INR APTT PHA Creatinine Clear 62.21 POC Sodium Sodium 140 POC Potassium Potassium 3.9 POC Chloride Chloride 113 H Carbon Dioxide 20.0 L POC Total CO2 Anion Gap 10.9 POC BUN BUN 20 Creatinine 1.47 H POC Creatinine Est GFR (CKD-EPI) 52.280 Glucose 81 POC Whole Bld Glucose POC Glucose POC Glucose Comment Estimat Average Glucose 148 Hemoglobin A1c 6.8 H Calcium 8.6 POC Ioniz Calcium Terrell Phosphorus 3.7 Magnesium 1.9 Total Bilirubin 0.7 AST 21 ALT 28 Alkaline Phosphatase 88 Total Creatine Kinase Troponin I High Sens Total Protein 6.5 Albumin 3.9 Globulin 2.6 Albumin/Globulin Ratio 1.5 Triglycerides 157 H Cholesterol 140 LDL Cholesterol, Calc 67 VLDL Cholesterol 31 HDL Cholesterol 42 Cholesterol/HDL Ratio 3.3 Urine Opiates Screen Positive H Ur Barbiturates Screen Negative Ur Phencyclidine Scrn Negative Ur Amphetamines Screen Negative U Benzodiazepines Scrn Positive H Urine Cocaine Screen Negative U Marijuana (THC) Screen Negative SARS-CoV-2 Rap RNA(RT-PCR) Negative 12/30/24 06:54 Corrected WBC 7.7 Uncorrected WBC Count 7.7 RBC 4.13 Hgb 13.0 POC Hgb Hct 38.4 L POC Hct MCV 93.0 MCH 31.5 MCHC 33.8 RDW 14.5 Plt Count 220 MPV 8.2 Neut % (Auto) 47.4 Lymph % (Auto) 41.9 [place] % (Auto) 8.3 Eos % (Auto) 1.8 Baso % (Auto) 0.6 Nucleat RBC Rel Count 0.1 Neut # (Auto) 3.7 Lymph # (Auto) 3.2 [place] # (Auto) 0.6 Eos # (Auto) 0.1 Baso # (Auto) 0.0 Monocyte Dist Width Platelet Estimate Plt Morphology Comment RBC Morphology PT INR APTT PHA Creatinine Clear POC Sodium Sodium POC Potassium Potassium POC Chloride Chloride Carbon Dioxide POC Total CO2 Anion Gap POC BUN BUN Creatinine POC Creatinine Est GFR (CKD-EPI) Glucose POC Whole Bld Glucose POC Glucose POC Glucose Comment Estimat Average Glucose Hemoglobin A1c Calcium POC Ioniz Calcium Terrell Phosphorus Magnesium Total Bilirubin AST ALT Alkaline Phosphatase Total Creatine Kinase Troponin I High Sens Total Protein Albumin Globulin Albumin/Globulin Ratio Triglycerides Cholesterol LDL Cholesterol, Calc VLDL Cholesterol HDL Cholesterol Cholesterol/HDL Ratio Urine Opiates Screen Ur Barbiturates Screen Ur Phencyclidine Scrn Ur Amphetamines Screen U Benzodiazepines Scrn Urine Cocaine Screen U Marijuana (THC) Screen SARS-CoV-2 Rap RNA(RT-PCR) Assessment/Plan (1) Weakness: (2) Impaired mobility: (3) WILD (acute kidney injury): Plan This is a 64 y/o male who presents with multifactorial functional decline in thesetting of left sided weakness, acute CVA ruled out. PM&R consulted for rehab recommendations. -Patient ambulated 100'CGA today with therapy. Not many OT needs. Personally feel he can be discharged home with home health although the patient does not feel comfortable with DC home at this time. Therefore would recommend DC to SNF for some further therapy services. Does not meet criteria for inpatient rehab theodore does not have complex medical nor rehab needs. Thank you for the consult Documented By: Amrit Fleming MD [id number] Signed By: <Electronically signed by Amrit Fleming MD> 12/30/24 2140 [facility] Work Phone: [phone]) [phone] [place] [address] Physiatry (Rehab) Consult Note Signed Patient: Rod Mathias MR#: [id number] : 1960 Acct:[id number] Age/Sex: 64 / M Adm Date: 5 Loc: Room: [address] [place] [address] Type: ADM INOo Attending Dr: Maurice Foote MD Copies to: MD Amrit Patel MD Robert L Hill, MD~ HPI Consult Date: 12/30/24 Requesting Physician: Maurice Foote MD Primary Care Provider: Ganga Hernandez MD Consult Narrative Reason for consult: Evaluation for inpatient rehab HPI: Mr. Mathias is a 64 year old male with significant past medical history of ischemic stroke on 2019 with chronic right-sided deficit, BPH, restless leg syndrome, CKD, diabetes mellitus type 2, hyperlipidemia, hypertension who presented due to worsening right sided weakness. MRI brain negative for acute CVA. Pending some further workup (UA, ECHO). Patient lives alone in a 2 story home with 1 step to enter. IND at baseline. Worked with therapy. Ambulated 100' Min A-CGA. Review of Systems Review of Systems All other systems reviewed & are negative unless noted below or in HPI [facility] Medical History BPH (benign prostatic hyperplasia) Arthritis hips Problem List clean-up per request of Phys. EHR Cmte Back pain was told possible fracture vertebra Problem List clean-up per request of Phys. EHR Cmte Restless legs left leg Numbness and tingling of leg left leg CKD (chronic kidney disease) stage 3 Problem List clean-up per request of Phys. 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 EHR Cmte Hx of renal calculi Hyperlipidemia Hypertension Surgical History History of renal stent H/O colonoscopy H/O hernia repair umbilical Hx of cystoscopy stone basket Problem List clean-up per request of Phys. EHR Cmte Hx of cervical spine surgery anterior Problem List clean-up per request of Phys. EHR Cmte Hx of lithotripsy Family History Brother Diabetes Mother Hypertension Father Medical history unknown Social History Smoking Status: Former smoker Tobacco Type: cigarettes Substance Use Type: None Substance Abuse Comment: occasional social alcohol use Meds Medications and Allergies Allergies atb Allergy (Uncoded 08/09/24 18:19) bladder problem Home Medications amlodipine 5 mg tablet 5 mg PO QAM htn 02/22/21 [History Confirmed 12/29/24] atorvastatin 40 mg tablet (Lipitor) 40 mg PO QPM hyperlipidemia 07/12/22 [History Confirmed 12/29/24] aspirin 81 mg capsule 81 mg PO QAM 10/02/22 [History Confirmed 12/29/24] hydrocodone 5 mg-acetaminophen 325 mg tablet 1 - 2 tab PO Q4-6H PRN Pain 10/02/22 [History Confirmed 12/29/24] semaglutide 7 mg tablet (Rybelsus) 14 mg PO DAILY DM 02/05/23 [History Confirmed 12/29/24] alprazolam 0.5 mg tablet 0.5 mg PO Q8H PRN Anxiety 06/07/23 [History Confirmed 12/29/24] losartan 100 mg tablet 100 mg PO DAILY 06/07/23 [History Confirmed 12/29/24] propranolol 80 mg capsule,24 hr,extended release 80 mg PO DAILY 07/24/23 [History Confirmed 12/29/24] ergocalciferol (vitamin D2) 1,250 mcg (50,000 unit) capsule (Vitamin D2) 50,000 unit PO QWEEK 08/10/24 [History Confirmed 12/29/24] duloxetine 30 mg capsule,delayed release 30 mg PO DAILY 12/29/24 [History Confirmed 12/29/24] glimepiride 1 mg tablet 1 mg PO QAM 12/29/24 [History Confirmed 12/29/24] Exam Physical Exam Vital Signs: Temp Pulse Resp BP Pulse Ox O2 Del Method 97.5 F L 63 16 112/67 95 Room Air 12/30/24 08:00 12/30/24 12:00 12/30/24 12:00 12/30/24 12:00 12/30/24 12:00 12/30/24 12:00 Narrative: NAD. Lying in bed Extremities well perfused No respiratory distress EVERETTE. Strength 5/5 BUE/BLE Speech is normal. No dysarthria or aphasia No facial droop Results - Phys. Rehab Labs Labs: Laboratory Results - last 24 hr 12/29/24 12/29/24 12/29/24 15:24 15:25 15:29 Corrected WBC 13.0 H Uncorrected WBC Count 13.0 H RBC 4.66 Hgb 14.5 POC Hgb 15.6 Hct 43.7 POC Hct 46.0 MCV 93.9 MCH 31.2 MCHC 33.3 RDW 14.3 Plt Count 261 MPV 8.3 Neut % (Auto) 68.2 Lymph % (Auto) 24.4 [place] % (Auto) 6.3 Eos % (Auto) 0.6 Baso % (Auto) 0.5 Nucleat RBC Rel Count 0.1 Neut # (Auto) 8.9 H Lymph # (Auto) 3.2 [place] # (Auto) 0.8 Eos # (Auto) 0.1 Baso # (Auto) 0.1 Monocyte Dist Width 18.13 Platelet Estimate Normal Plt Morphology Comment Normal RBC Morphology Normal PT 11.7 INR 1.0 APTT 23.2 L PHA Creatinine Clear 53.00 POC Sodium 144 Sodium 140 POC Potassium 4.4 Potassium 4.2 POC Chloride 109.0 Chloride 110 H Carbon Dioxide 22.2 POC Total CO2 25 Anion Gap 12.0 POC BUN 25 BUN 20 Creatinine 1.74 H POC Creatinine 1.9 H Est GFR (CKD-EPI) 42.703 Glucose 136 H POC Whole Bld Glucose 133 H POC Glucose 134 POC Glucose Comment Glu2: cleaned meter Estimat Average Glucose Hemoglobin A1c Calcium 9.4 POC Ioniz Calcium Terrell 1.25 Phosphorus Magnesium Total Bilirubin 0.7 AST 25 ALT 36 Alkaline Phosphatase 96 Total Creatine Kinase 76 Troponin I High Sens 4 Total Protein 7.7 Albumin 4.5 Globulin 3.2 Albumin/Globulin Ratio 1.4 Triglycerides Cholesterol LDL Cholesterol, Calc VLDL Cholesterol HDL Cholesterol Cholesterol/HDL Ratio Urine Opiates Screen Ur Barbiturates Screen Ur Phencyclidine Scrn Ur Amphetamines Screen U Benzodiazepines Scrn Urine Cocaine Screen U Marijuana (THC) Screen SARS-CoV-2 Rap RNA(RT-PCR) 12/29/24 12/29/24 12/30/24 16:15 17:42 06:41 Corrected WBC Uncorrected WBC Count RBC Hgb POC Hgb Hct POC Hct MCV MCH MCHC RDW Plt Count MPV Neut % (Auto) Lymph % (Auto) [place] % (Auto) Eos % (Auto) Baso % (Auto) Nucleat RBC Rel Count Neut # (Auto) Lymph # (Auto) [place] # (Auto) Eos # (Auto) Baso # (Auto) Monocyte Dist Width Platelet Estimate Plt Morphology Comment RBC Morphology PT INR APTT PHA Creatinine Clear 62.21 POC Sodium Sodium 140 POC Potassium Potassium 3.9 POC Chloride Chloride 113 H Carbon Dioxide 20.0 L POC Total CO2 Anion Gap 10.9 POC BUN BUN 20 Creatinine 1.47 H POC Creatinine Est GFR (CKD-EPI) 52.280 Glucose 81 POC Whole Bld Glucose POC Glucose POC Glucose Comment Estimat Average Glucose 148 Hemoglobin A1c 6.8 H Calcium 8.6 POC Ioniz Calcium Terrell Phosphorus 3.7 Magnesium 1.9 Total Bilirubin 0.7 AST 21 ALT 28 Alkaline Phosphatase 88 Total Creatine Kinase Troponin I High Sens Total Protein 6.5 Albumin 3.9 Globulin 2.6 Albumin/Globulin Ratio 1.5 Triglycerides 157 H Cholesterol 140 LDL Cholesterol, Calc 67 VLDL Cholesterol 31 HDL Cholesterol 42 Cholesterol/HDL Ratio 3.3 Urine Opiates Screen Positive H Ur Barbiturates Screen Negative Ur Phencyclidine Scrn Negative Ur Amphetamines Screen Negative U Benzodiazepines Scrn Positive H Urine Cocaine Screen Negative U Marijuana (THC) Screen Negative SARS-CoV-2 Rap RNA(RT-PCR) Negative 12/30/24 06:54 Corrected WBC 7.7 Uncorrected WBC Count 7.7 RBC 4.13 Hgb 13.0 POC Hgb Hct 38.4 L POC Hct MCV 93.0 MCH 31.5 MCHC 33.8 RDW 14.5 Plt Count 220 MPV 8.2 Neut % (Auto) 47.4 Lymph % (Auto) 41.9 [place] % (Auto) 8.3 Eos % (Auto) 1.8 Baso % (Auto) 0.6 Nucleat RBC Rel Count 0.1 Neut # (Auto) 3.7 Lymph # (Auto) 3.2 [place] # (Auto) 0.6 Eos # (Auto) 0.1 Baso # (Auto) 0.0 Monocyte Dist Width Platelet Estimate Plt Morphology Comment RBC Morphology PT INR APTT PHA Creatinine Clear POC Sodium Sodium POC Potassium Potassium POC Chloride Chloride Carbon Dioxide POC Total CO2 Anion Gap POC BUN BUN Creatinine POC Creatinine Est GFR (CKD-EPI) Glucose POC Whole Bld Glucose POC Glucose POC Glucose Comment Estimat Average Glucose Hemoglobin A1c Calcium POC Ioniz Calcium Terrell Phosphorus Magnesium Total Bilirubin AST ALT Alkaline Phosphatase Total Creatine Kinase Troponin I High Sens Total Protein Albumin Globulin Albumin/Globulin Ratio Triglycerides Cholesterol LDL Cholesterol, Calc VLDL Cholesterol HDL Cholesterol Cholesterol/HDL Ratio Urine Opiates Screen Ur Barbiturates Screen Ur Phencyclidine Scrn Ur Amphetamines Screen U Benzodiazepines Scrn Urine Cocaine Screen U Marijuana (THC) Screen SARS-CoV-2 Rap RNA(RT-PCR) Assessment/Plan (1) Weakness: (2) Impaired mobility: (3) WILD (acute kidney injury): Plan This is a 64 y/o male who presents with multifactorial functional decline in thesetting of left sided weakness, acute CVA ruled out. PM&R consulted for rehab recommendations. -Patient ambulated 100'CGA today with therapy. Not many OT needs. Personally feel he can be discharged home with home health although the patient does not feel comfortable with DC home at this time. Therefore would recommend DC to SNF for some further therapy services. Does not meet criteria for inpatient rehab theodore does not have complex medical nor rehab needs. Thank you for the consult Documented By: Amrit Fleming MD [id number] Signed By: 12/30/24 2148 [facility]03-12-2025 Progress note Author Maurice Foote [facility] Date/TimeMarch 2024 4:[place] [address] Hospitalist Progress Note Signed Patient: Rod Mathias MR#: [id number] : 1960 Acct:[id number] Age/Sex: 64 / M Adm Date: 5 Loc: Room: [address] [place] [address] Type: ADM INOo Attending Dr: Maurice Foote MD Copies to: ~ Date of Service: 12/30/2024 Subjective Subjective Narrative: Patient was lying down in the bed comfortably but complained that he was feelingshort of breath. Healso mentions no improvement in his neurological symptoms. Exam Physical Exam Vital Signs: Temp Pulse Resp BP Pulse Ox O2 Del Method 97.5 F L 63 16 112/67 95 Room Air 12/30/24 08:00 12/30/24 12:00 12/30/24 12:00 12/30/24 12:00 12/30/24 12:00 12/30/24 12:00 Narrative: General: Awake alert, no acute distress HEENT: head atraumatic, normocephalic, moist mucous membranes Neck: supple no masses, no lymphadenopathy CVS: regular rate and rhythm, no murmurs or gallops Respiratory: clear to auscultation bilaterally, no wheezing or crackles, symmetric expansion GI: soft, nondistended, nontender, positive bowel sounds with no organomegaly Extremity: moves all extremities, no restrictions of movements, no calf tenderness, right sided weakness in the right upper and lower extremity. No diminished sensation Neuro: AOx3, CN II-VII intact. Moves all extremities in all planes of motion. Skin: intact no rashes or lesions Objective Lab Results 12/30/24 06:54 12/30/24 06:41 Microbiology Results Microbiology 12/29/24 16:15 Nasopharyngeal SARS-CoV-2, Influenza & RSV (PCR) - Final Meds Allergies and Active Meds Allergies atb Allergy (Uncoded 08/09/24 18:19) bladder problem Active Meds: Active Medications Generic Name Dose Route Start Last Admin Trade Name Freq PRN Reason Stop Dose Admin Hydrocodone Bitart/Acetaminophen 1 - 2 tab 12/29/24 17:10 12/30/24 13:48 Hydrocodone/Acetaminophen 5-325 Mg Tablet PO 1 tab Q4H PRN Administration Pain Alprazolam 0.5 mg 12/29/24 17:10 12/30/24 08:42 Alprazolam 0.5 Mg Tablet PO 06/27/25 17:09 0.5 mg Q8H PRN Administration Anxiety Aspirin 81 mg 12/30/24 09:00 12/30/24 08:41 Aspirin 81 Mg Tablet.Dr PO 12/30/25 08:59 81 mg QAM PEEWEE Administration Atorvastatin Calcium 40 mg 12/29/24 21:00 12/29/24 21:55 Atorvastatin 40 Mg Tablet PO 12/29/25 20:59 40 mg QPM PEEWEE Administration Buspirone HCl 15 mg 12/29/24 21:00 12/30/24 08:41 Buspirone 15 Mg Tablet PO 12/29/25 20:59 15 mg BID PEEWEE Administration Ergocalciferol 1,250 mcg 01/03/25 09:00 Ergocalciferol 1,250 Mcg (50,000 Units) Capsule PO 01/03/26 08:59 Q7D PEEWEE Semaglutide [ 14 mg 12/30/24 09:00 12/30/24 11:02 Rybelsus] 7 Mg PO 12/30/25 08:59 Not Given Tablet DAILY PEEWEE Propranolol HCl 80 mg 12/30/24 09:00 12/30/24 08:41 Propranolol Sa.24hr 80 Mg Capsule PO 12/30/25 08:59 80 mg DAILY PEEWEE Administration Saccharomyces Boulardii 250 mg 12/30/24 08:00 12/30/24 08:41 Saccharomyces Boulardii 250 Mg Capsule PO 12/30/25 07:59 250 mg BID.WITH.MEALS PEEWEE Administration Sodium Chloride 0 ml 12/29/24 15:16 Sodium Chloride 0.9 % 10 Ml Syringe IV-PUSH 12/29/25 15:15 PRN PRN Flush A&P - Hospitalist Assessment/Plan (1) Right sided weakness: Plan This is a 66-year-old male with significant past medical history of ischemic stroke on 2019 with chronic right-sided deficit, BPH, restless leg syndrome, CKD, diabetes mellitus type 2, hyperlipidemia, hypertension presented with a chief complaints of worsening right-sided weakness with he noticed yesterday morning after waking up. He also complains of having new numbness in the right lower face. Patient denies any headache any nasal congestion sore throat neck rigidity, chest pain shortness of breath nausea vomiting diarrhea fever or chills or dysuria urgency or frequency. Patient also got 1 dose of Lasix in the ED. in the ED he was hemodynamically stable lab work shows WBC of 13, hemoglobin 14.5, INR of 1 normal electrolytes, creatinine of 1.74 and normal liver enzymes,troponin of 4 urinetox positive for opioids and benzodiazepines. Head CT showed no acute findings CTA of the head shows no occlusion critical stenosis ordissection of the extracranial or intracranial circulation. Thyroid nodule measuring 14 mm. MRI of the brain was done on December 29, 2024 which shows No acute intracranial process. Mild chronic small vessel ischemic changes. Plan: -Admit to regular nursing floor under observation -Continuous telemetry -Will restart his antihypertensive medication with no signs of acute ischemic stroke. -Continue POA medication-Xanax as needed, BuSpar, vitamin D2, propranolol, semaglutide and tamsulosin questionable -Neurologist consulted-appreciate recommendation-recommended MRI of the cervicalspine and TSH and vitamin B12 -PT/OT -Follow-up morning labs Heart healthy diet - Documented By: Maurice Foote MD 12/30/241604 Signed By: <Electronically signed by Maurice Foote MD> 12/30/24 1608 [facility] Work Phone: 1(667) 867-561503-12-2025 Consult note Author Mikey Rose [facility] Date/TimeMarch 2024 4:00pm[place] [address] Neurology Consult Note Signed Patient: Rod Mathias MR#: [id number] : 1960 Acct:[id number] Age/Sex: 64 / M Adm Date: 5 Loc: 3T Room: [address] [place] [address] Type: ADM INOo Attending Dr: Maurice Foote MD Copies to: DO Maurice Ovalle MD Robert L Hill, MD~ HPI Consult Date: 12/30/24 Floating Operator: Mikey Rose DO [facility] Medical History BPH (benign prostatic hyperplasia) Arthritis hips Problem List clean-up per request of Phys. EHR Cmte Back pain was told possible fracture vertebra Problem List clean-up per request of Phys. EHR Cmte Restless legs left leg Numbness and tingling of leg left leg CKD (chronic kidney disease) stage 3 Problem List clean-up per request of Phys. 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 EHR Cmte Hx of renal calculi Hyperlipidemia Hypertension Surgical History History of renal stent H/O colonoscopy H/O hernia repair umbilical Hx of cystoscopy stone basket Problem List clean-up per request of Phys. EHR Cmte Hx of cervical spine surgery anterior Problem List clean-up per request of Phys. EHR Cmte Hx of lithotripsy Family History Brother Diabetes Mother Hypertension Father Medical history unknown Social History Smoking Status: Former smoker Tobacco Type: cigarettes Substance Use Type: None Substance Abuse Comment: occasional social alcohol use Meds Medications and Allergies Allergies atb Allergy (Uncoded 08/09/24 18:19) bladder problem Home Medications amlodipine 5 mg tablet 5 mg PO QAM htn 02/22/21 [History Confirmed 12/29/24] atorvastatin 40 mg tablet (Lipitor) 40 mg PO QPM hyperlipidemia 07/12/22 [History Confirmed 12/29/24] aspirin 81 mg capsule 81 mg PO QAM 10/02/22 [History Confirmed 12/29/24] hydrocodone 5 mg-acetaminophen 325 mg tablet 1 - 2 tab PO Q4-6H PRN Pain 10/02/22 [History Confirmed 12/29/24] semaglutide 7 mg tablet (Rybelsus) 14 mg PO DAILY DM 02/05/23 [History Confirmed 12/29/24] alprazolam 0.5 mg tablet 0.5 mg PO Q8H PRN Anxiety 06/07/23 [History Confirmed 12/29/24] losartan 100 mg tablet 100 mg PO DAILY 06/07/23 [History Confirmed 12/29/24] propranolol 80 mg capsule,24 hr,extended release 80 mg PO DAILY 07/24/23 [History Confirmed 12/29/24] ergocalciferol (vitamin D2) 1,250 mcg (50,000 unit) capsule (Vitamin D2) 50,000 unit PO QWEEK 08/10/24 [History Confirmed 12/29/24] duloxetine 30 mg capsule,delayed release 30 mg PO DAILY 12/29/24 [History Confirmed 12/29/24] glimepiride 1 mg tablet 1 mg PO QAM 12/29/24 [History Confirmed 12/29/24] Exam Physical Exam Vital Signs: Temp Pulse Resp BP Pulse Ox O2 Del Method 97.5 F L 69 18 143/88 H 94 L Room Air 12/30/24 08:00 12/30/24 08:00 12/30/24 08:00 12/30/24 08:00 12/30/24 08:00 12/30/24 08:00 Results - Neuro Laboratory Findings 12/30/24 06:54 12/30/24 06:41 Lab Results: Hemoglobin A1c 6.8 % (4.3-5.6) H 12/30/24 06:41 Diagnostic Findings Imaging/Impressions: ITS Impressions Head CT 12/29/24 15:23 IMPRESSION: No acute findings. Preliminary 3:45 PM 12/29/2024 Impression dictated by: Steve Thurston M.D.12/29/2024 3:48 PM Dictation Location[facility] 12/29/24 15:31 IMPRESSION: No occlusion, critical stenosis or dissection of the extracranial orintracranial circulation. Thyroid nodules measuring up to 14 mm. Impression dictated by: Steve Thurston M.D.12/29/2024 4:29 PM Dictation Location[facility] Brain MRI 12/29/24 17:12 IMPRESSION: No acute intracranial process. Mild chronic small vessel ischemic changes. Impression dictated by: Steve Thurston M.D.12/29/2024 10:47 PM Dictation Location: [facility]20 Assessment/Plan (1) Right sided weakness: Plan CONSULT REASON: Worsening right-sided weakness HPI: 64-year-old man. History of right hemiparesis at baseline. He came to the emergency department the afternoon of December 29, 2024 with worsened right leg weakness compared to his baseline, new numbness to the right lower face, and reports of blurred vision in both eyes intermittently. He mentioned recently having some rhinorrhea, congestion, and chills. He mention to me having some issues with thinking and concentration, sometimes with stuttering. He says he has sensation on the right side of the face around the mouth but it feels thick or abnormal. To him it feels weak but people are telling him it is not weak. Home medications include amlodipine, atorvastatin 40 mg, aspirin 81 mg, semaglutide, hydrocodone?acetaminophen, alprazolam, buspirone, losartan, propranolol, tamsulosin. EXAMINATION: In no distress. No deformities or trauma. Limbs seem well-perfused. No significant edema. Normal work of breathing. Visualized skin is generally intact and without lesions. Affect normal. Patient is alert. Attention normal. Speech is generally limited and nondysarthric, though sometimes he exhibitsmild stuttering/stammering. Pupils are equal and reactive. Ocular motility is full. No nystagmus. Facial sensation is normal. Hearing is normal. Facial strength is normal. Tongue is midline. No limb drift or pronator drift in upper extremities. Left lower extremity with full strength. Right lower extremity with some giveaway weakness and effort was questionable. No significant tremors. Reflexes +3/4 throughout and especially brisk at the right patella. Light touch is normal. No limb ataxia. DATA REVIEW: -A1c 6.8% -Ionized calcium 1.25 (normal) -Total cholesterol 140, LDL 67 -Initial leukocytosis 13 now down to 7.7 -MRI brain without contrast December 29, 2024 is without acute findings -MRI cervical spine December 20, 2020 showed posterior disc herniation at C5-6 with moderate to severe central spinal canal stenosis and cord compression and myelopathy -MRI lumbar spine May 02, 2022 showed moderate to severe bilateral neuroforaminal stenosis at L5-S1, and other significant degenerative changes -MRI brain without contrast from November 05, 2018 shows a tiny nonacute lacunar infarction in the right thalamus -Routine EEG July 12, 2023 was normal ASSESSMENT: 64-year-old man with 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 He presents with a number of symptoms such as acute on chronic weakness in his right lower extremity, paresthesias to the right lower face, blurred vision, intermittent speech changes with stuttering, and issues with cognition and concentration. He has presented on past occasions with similar symptoms. Oftenhas a headache to some extent as well. He presented back in October 2018 with similar symptoms to now, though those were left-sided. MRI brain does not offer explanation for any of his presenting symptoms and looks normal. He does not have history of stroke. He tends to report in his medical history having history of stroke that left him with right hemiparesis. Perhaps his cervical spinal cord compression left him withsome degree of right hemiparesis but he has had multiple MRI brain studies that have never demonstrated acute ischemia. There was a October 2018 study that showed a tiny focus of T2/FLAIR hyperintensity in the right thalamus that was thought to possibly be a past ischemic stroke, but it does not neuroanatomically correspond to his perceived chronic deficits, and that tiny lesion does not show up in subsequent imaging. He tends to include stroke or mini stroke in his medical history but I do not think he has ever actually had a stroke. His right lower extremity exam reveals some effort dependent weakness. 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 That being said, the right lower extremity has especially brisk reflexes and in looking at his cervical spine on the CT angiography pictures it does look like there could be significant crowding around his cervical cord again. PLAN: MRI cervical spine without contrast Outpatient neuropsych evaluation Cognitive lab work: B12 and TSH Documented By: Mikey Rose DO 12/30/24 1225 Signed By: <Electronically signed by Mikey Rose DO> 12/30/24 1802 [facility] Work Phone: 1([phone]) 466-436303-12-2025 Progress noteStephanie [place] [id number] Hospitalist Progress Note Signed Patient: Rod Mathias MR#: [id number] : 1960 Acct:[id number] Age/Sex: 64 / M Adm Date: 5 Loc: 3T Room: [address] [place] [address] Type: ADM INOo Attending Dr: Maurice Foote MD Copies to: ~ Date of Service: 12/30/2024 Subjective Subjective Narrative: Patient was lying down in the bed comfortably but complained that he was feelingshort of breath. Healso mentions no improvement in his neurological symptoms. Exam Physical Exam Vital Signs: Temp Pulse Resp BP Pulse Ox O2 Del Method 97.5 F L 63 16 112/67 95 Room Air 12/30/24 08:00 12/30/24 12:00 12/30/24 12:00 12/30/24 12:00 12/30/24 12:00 12/30/24 12:00 Narrative: General: Awake alert, no acute distress HEENT: head atraumatic, normocephalic, moist mucous membranes Neck: supple no masses, no lymphadenopathy CVS: regular rate and rhythm, no murmurs or gallops Respiratory: clear to auscultation bilaterally, no wheezing or crackles, symmetric expansion GI: soft, nondistended, nontender, positive bowel sounds with no organomegaly Extremity: moves all extremities, no restrictions of movements, no calf tenderness, right sided weakness in the right upper and lower extremity. No diminished sensation Neuro: AOx3, CN II-VII intact. Moves all extremities in all planes of motion. Skin: intact no rashes or lesions Objective Lab Results 12/30/24 06:54 12/30/24 06:41 Microbiology Results Microbiology 12/29/24 16:15 Nasopharyngeal SARS-CoV-2, Influenza & RSV (PCR) - Final Meds Allergies and Active Meds Allergies atb Allergy (Uncoded 08/09/24 18:19) bladder problem Active Meds: Active Medications Generic Name Dose Route Start Last Admin Trade Name Freq PRN Reason Stop Dose Admin Hydrocodone Bitart/Acetaminophen 1 - 2 tab 12/29/24 17:10 12/30/24 13:48 Hydrocodone/Acetaminophen 5-325 Mg Tablet PO 1 tab Q4H PRN Administration Pain Alprazolam 0.5 mg 12/29/24 17:10 12/30/24 08:42 Alprazolam 0.5 Mg Tablet PO 06/27/25 17:09 0.5 mg Q8H PRN Administration Anxiety Aspirin 81 mg 12/30/24 09:00 12/30/24 08:41 Aspirin 81 Mg Tablet.Dr PO 12/30/25 08:59 81 mg QAM PEEWEE Administration Atorvastatin Calcium 40 mg 12/29/24 21:00 12/29/24 21:55 Atorvastatin 40 Mg Tablet PO 12/29/25 20:59 40 mg QPM PEEWEE Administration Buspirone HCl 15 mg 12/29/24 21:00 12/30/24 08:41 Buspirone 15 Mg Tablet PO 12/29/25 20:59 15 mg BID PEEWEE Administration Ergocalciferol 1,250 mcg 01/03/25 09:00 Ergocalciferol 1,250 Mcg (50,000 Units) Capsule PO 01/03/26 08:59 Q7D PEEWEE Semaglutide [ 14 mg 12/30/24 09:00 12/30/24 11:02 Rybelsus] 7 Mg PO 12/30/25 08:59 Not Given Tablet DAILY PEEWEE Propranolol HCl 80 mg 12/30/24 09:00 12/30/24 08:41 Propranolol Sa.24hr 80 Mg Capsule PO 12/30/25 08:59 80 mg DAILY PEEWEE Administration Saccharomyces Boulardii 250 mg 12/30/24 08:00 12/30/24 08:41 Saccharomyces Boulardii 250 Mg Capsule PO 12/30/25 07:59 250 mg BID.WITH.MEALS PEEWEE Administration Sodium Chloride 0 ml 12/29/24 15:16 Sodium Chloride 0.9 % 10 Ml Syringe IV-PUSH 12/29/25 15:15 PRN PRN Flush A&P - Hospitalist Assessment/Plan (1) Right sided weakness: Plan This is a 66-year-old male with significant past medical history of ischemic stroke on 2019 with chronic right-sided deficit, BPH, restless leg syndrome, CKD, diabetes mellitus type 2, hyperlipidemia, hypertension presented with a chief complaints of worsening right-sided weakness with he noticed yesterday morning after waking up. He also complains of having new numbness in the right lower face. Patient denies any headache any nasal congestion sore throat neck rigidity, chest pain shortness of breath nausea vomiting diarrhea fever or chills or dysuria urgency or frequency. Patient also got 1 dose of Lasix in the ED. in the ED he was hemodynamically stable lab work shows WBC of 13, hemoglobin 14.5, INR of 1 normal electrolytes, creatinine of 1.74 and normal liver enzymes,troponin of 4 urinetox positive for opioids and benzodiazepines. Head CT showed no acute findings CTA of the head shows no occlusion critical stenosis ordissection of the extracranial or intracranial circulation. Thyroid nodule measuring 14 mm. MRI of the brain was done on December 29, 2024 which shows No acute intracranial process. Mild chronic small vessel ischemic changes. Plan: -Admit to regular nursing floor under observation -Continuous telemetry -Will restart his antihypertensive medication with no signs of acute ischemic stroke. -Continue POA medication-Xanax as needed, BuSpar, vitamin D2, propranolol, semaglutide and tamsulosin questionable -Neurologist consulted-appreciate recommendation-recommended MRI of the cervicalspine and TSH and vitamin B12 -PT/OT -Follow-up morning labs Heart healthy diet - Documented By: Maurice Foote MD 12/30/241604 Signed By: 12/30/24 1609 [facility]03-12-2025 [place] [address] Neurology Consult Note Signed Patient: Rod Mathias MR#: [id number] : 1960 Acct:[id number] Age/Sex: 64 / M Adm Date: 5 Loc: Room: [address] [place] [address] Type: ADM INOo Attending Dr: Maurice Foote MD Copies to: DO Maurice Ovalle MD Robert L Hill, MD~ HPI Consult Date: 12/30/24 Floating Operator: Mikey Rose DO [facility] Medical History BPH (benign prostatic hyperplasia) Arthritis hips Problem List clean-up per request of Phys. EHR Cmte Back pain was told possible fracture vertebra Problem List clean-up per request of Phys. EHR Cmte Restless legs left leg Numbness and tingling of leg left leg CKD (chronic kidney disease) stage 3 Problem List clean-up per request of Phys. 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 EHR Cmte Hx of renal calculi Hyperlipidemia Hypertension Surgical History History of renal stent H/O colonoscopy H/O hernia repair umbilical Hx of cystoscopy stone basket Problem List clean-up per request of Phys. EHR Cmte Hx of cervical spine surgery anterior Problem List clean-up per request of Phys. EHR Cmte Hx of lithotripsy Family History Brother Diabetes Mother Hypertension Father Medical history unknown Social History Smoking Status: Former smoker Tobacco Type: cigarettes Substance Use Type: None Substance Abuse Comment: occasional social alcohol use Meds Medications and Allergies Allergies atb Allergy (Uncoded 08/09/24 18:19) bladder problem Home Medications amlodipine 5 mg tablet 5 mg PO QAM htn 02/22/21 [History Confirmed 12/29/24] atorvastatin 40 mg tablet (Lipitor) 40 mg PO QPM hyperlipidemia 07/12/22 [History Confirmed 12/29/24] aspirin 81 mg capsule 81 mg PO QAM 10/02/22 [History Confirmed 12/29/24] hydrocodone 5 mg-acetaminophen 325 mg tablet 1 - 2 tab PO Q4-6H PRN Pain 10/02/22 [History Confirmed 12/29/24] semaglutide 7 mg tablet (Rybelsus) 14 mg PO DAILY DM 02/05/23 [History Confirmed 12/29/24] alprazolam 0.5 mg tablet 0.5 mg PO Q8H PRN Anxiety 06/07/23 [History Confirmed 12/29/24] losartan 100 mg tablet 100 mg PO DAILY 06/07/23 [History Confirmed 12/29/24] propranolol 80 mg capsule,24 hr,extended release 80 mg PO DAILY 07/24/23 [History Confirmed 12/29/24] ergocalciferol (vitamin D2) 1,250 mcg (50,000 unit) capsule (Vitamin D2) 50,000 unit PO QWEEK 08/10/24 [History Confirmed 12/29/24] duloxetine 30 mg capsule,delayed release 30 mg PO DAILY 12/29/24 [History Confirmed 12/29/24] glimepiride 1 mg tablet 1 mg PO QAM 12/29/24 [History Confirmed 12/29/24] Exam Physical Exam Vital Signs: Temp Pulse Resp BP Pulse Ox O2 Del Method 97.5 F L 69 18 143/88 H 94 L Room Air 12/30/24 08:00 12/30/24 08:00 12/30/24 08:00 12/30/24 08:00 12/30/24 08:00 12/30/24 08:00 Results - Neuro Laboratory Findings 12/30/24 06:54 12/30/24 06:41 Lab Results: Hemoglobin A1c 6.8 % (4.3-5.6) H 12/30/24 06:41 Diagnostic Findings Imaging/Impressions: ITS Impressions Head CT 12/29/24 15:23 IMPRESSION: No acute findings. Preliminary 3:45 PM 12/29/2024 Impression dictated by: Steve Thurston M.D.12/29/2024 3:48 PM Dictation Location: [facility] Head CTA 12/29/24 15:31 IMPRESSION: No occlusion, critical stenosis or dissection of the extracranial orintracranial circulation. Thyroid nodules measuring up to 14 mm. Impression dictated by: Steve Thurston M.D.12/29/2024 4:29 PM Dictation Location: [facility] Brain MRI 12/29/24 17:12 IMPRESSION: No acute intracranial process. Mild chronic small vessel ischemic changes. Impression dictated by: Steve Thurston M.D.12/29/2024 10:47 PM Dictation Location: [facility] Assessment/Plan (1) Right sided weakness: Plan CONSULT REASON: Worsening right-sided weakness HPI: 64-year-old man. History of right hemiparesis at baseline. He came to the emergency department the afternoon of December 29, 2024 with worsened right leg weakness compared to his baseline, new numbness to the right lower face, and reports of blurred vision in both eyes intermittently. He mentioned recently having some rhinorrhea, congestion, and chills. He mention to me having some issues with thinking and concentration, sometimes with stuttering. He says he has sensation on the right side of the face around the mouth but it feels thick or abnormal. To him it feels weak but people are telling him it is not weak. Home medications include amlodipine, atorvastatin 40 mg, aspirin 81 mg, semaglutide, hydrocodone?acetaminophen, alprazolam, buspirone, losartan, propranolol, tamsulosin. EXAMINATION: In no distress. No deformities or trauma. Limbs seem well-perfused. No significant edema. Normal work of breathing. Visualized skin is generally intact and without lesions. Affect normal. Patient is alert. Attention normal. Speech is generally limited and nondysarthric, though sometimes he exhibitsmild stuttering/stammering. Pupils are equal and reactive. Ocular motility is full. No nystagmus. Facial sensation is normal. Hearing is normal. Facial strength is normal. Tongue is midline. No limb drift or pronator drift in upper extremities. Left lower extremity with full strength. Right lower extremity with some giveaway weakness and effort was questionable. No significant tremors. Reflexes +3/4 throughout and especially brisk at the right patella. Light touch is normal. No limb ataxia. DATA REVIEW: -A1c 6.8% -Ionized calcium 1.25 (normal) -Total cholesterol 140, LDL 67 -Initial leukocytosis 13 now down to 7.7 -MRI brain without contrast December 29, 2024 is without acute findings -MRI cervical spine December 20, 2020 showed posterior disc herniation at C5-6 with moderate to severe central spinal canal stenosis and cord compression and myelopathy -MRI lumbar spine May 02, 2022 showed moderate to severe bilateral neuroforaminal stenosis at L5-S1, and other significant degenerative changes -MRI brain without contrast from November 05, 2018 shows a tiny nonacute lacunar infarction in the right thalamus -Routine EEG July 12, 2023 was normal ASSESSMENT: 64-year-old man with 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 He presents with a number of symptoms such as acute on chronic weakness in his right lower extremity, paresthesias to the right lower face, blurred vision, intermittent speech changes with stuttering, and issues with cognition and concentration. He has presented on past occasions with similar symptoms. Oftenhas a headache to some extent as well. He presented back in October 2018 with similar symptoms to now, though those were left-sided. MRI brain does not offer explanation for any of his presenting symptoms and looks normal. He does not have history of stroke. He tends to report in his medical history having history of stroke that left him with right hemiparesis. Perhaps his cervical spinal cord compression left him withsome degree of right hemiparesis but he has had multiple MRI brain studies that have never demonstrated acute ischemia. There was a October 2018 study that showed a tiny focus of T2/FLAIR hyperintensity in the right thalamus that was thought to possibly be a past ischemic stroke, but it does not neuroanatomically correspond to his perceived chronic deficits, and that tiny lesion does not show up in subsequent imaging. He tends to include stroke or mini stroke in his medical history but I do not think he has ever actually had a stroke. His right lower extremity exam reveals some effort dependent weakness. 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 That being said, the right lower extremity has especially brisk reflexes and in looking at his cervical spine on the CT angiography pictures it does look like there could be significant crowding around his cervical cord again. PLAN: MRI cervical spine without contrast Outpatient neuropsych evaluation Cognitive lab work: B12 and TSH Documented By: Mikey Rose DO 12/30/24 1225 Signed By: 12/30/[address] [place], [place] [id number] History and physical note Author Maurice Foote [facility] Date/TimeMarch 2024 6:[place] [address] Hospitalist H&P Signed Patient: Rod Mathias MR#: [id number] : 1960 Acct:[id number] Age/Sex: 64 / M Adm Date: 5 Loc: ER Room: Type: [facility] ER Attending Dr: Copies to: MD Olesya Patel MD Robert L Hill, MD~ HPI DATE OF EXAMINATION: 12/29/24 CHIEF COMPLAINT: Worsening right-sided weakness HISTORY OF PRESENT ILLNESS: This is a 66-year-old male with significant past medical history of ischemic stroke on 2019 with chronic right-sided deficit, BPH, restless leg syndrome, CKD, diabetes mellitus type 2, hyperlipidemia, hypertension presented with a chief complaints of worsening right-sided weakness with he noticed yesterday morning after waking up. He also complains of having new numbness in the right lower face. Patient denies any headache any nasal congestion sore throat neck rigidity, chest pain shortness of breath nausea vomiting diarrhea fever or chills or dysuria urgency or frequency. Patient also got 1 dose of Lasix in the ED. in the ED he was hemodynamically stable lab work shows WBC of 13, hemoglobin 14.5, INR of 1 normal electrolytes, creatinine of 1.74 and normal liver enzymes,troponin of 4 urinetox positive for opioids and benzodiazepines. Head CT showed no acute findings CTA of the head shows no occlusion critical stenosis ordissection of the extracranial or intracranial circulation. Thyroid nodule measuring 14 mm Review of Systems Review of Systems All other systems reviewed & are negative unless noted below or in HPI [facility] Medical History BPH (benign prostatic hyperplasia) Arthritis hips Problem List clean-up per request of Phys. EHR Cmte Back pain was told possible fracture vertebra Problem List clean-up per request of Phys. EHR Cmte Restless legs left leg Numbness and tingling of leg left leg CKD (chronic kidney disease) stage 3 Problem List clean-up per request of Phys. 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 EHR Cmte Hx of renal calculi Hyperlipidemia Hypertension Surgical History History of renal stent H/O colonoscopy H/O hernia repair umbilical Hx of cystoscopy stone basket Problem List clean-up per request of Phys. EHR Cmte Hx of cervical spine surgery anterior Problem List clean-up per request of Phys. EHR Cmte Hx of lithotripsy Family History Brother Diabetes Mother Hypertension Father Medical history unknown Social History Smoking Status: Never smoker Tobacco Type: cigarettes Substance Use Type: None Substance Abuse Comment: occasional social alcohol use Meds Medications and Allergies Allergies atb Allergy (Uncoded 08/09/24 18:19) bladder problem Home Medications amlodipine 5 mg tablet 5 mg PO QAM htn 02/22/21 [History Confirmed 08/09/24] atorvastatin 40 mg tablet (Lipitor) 40 mg PO QPM hyperlipidemia 07/12/22 [History Confirmed 08/09/24] aspirin 81 mg capsule 81 mg PO QAM 10/02/22 [History Confirmed 08/09/24] hydrocodone 5 mg-acetaminophen 325 mg tablet 1 - 2 tab PO Q4-6H PRN Pain 10/02/22 [History Confirmed 08/09/24] semaglutide 7 mg tablet (Rybelsus) 14 mg PO DAILY DM 02/05/23 [History Confirmed 08/10/24] alprazolam 0.5 mg tablet 0.5 mg PO Q8H PRN Anxiety 06/07/23 [History Confirmed 08/09/24] buspirone 15 mg tablet 15 mg PO BID 06/07/23 [History Confirmed 08/09/24] losartan 100 mg tablet 100 mg PO DAILY 06/07/23 [History Confirmed 08/09/24] propranolol 80 mg capsule,24 hr,extended release 80 mg PO DAILY 07/24/23 [History Confirmed 08/10/24] tamsulosin 0.4 mg capsule 0.4 mg PO DAILY 30 days #30 caps 07/13/24 [Rx Confirmed 08/09/24] ergocalciferol (vitamin D2) 1,250 mcg (50,000 unit) capsule (Vitamin D2) 50,000 unit PO QWEEK 08/10/24 [History Confirmed 08/10/24] ertapenem 1 gram solution for injection 1 g IV Q24H 14 days #10 ea 08/13/24 [Rx] Saccharomyces boulardii 250 mg capsule 250 mg PO BID.WITH.MEALS 14 days #28 caps 08/14/24 [Rx] Exam Physical Exam Vital Signs: Temp Pulse Resp BP Pulse Ox O2 Del Method 97.8 F 74 18 146/80 H 98 Room Air 12/29/24 15:23 12/29/24 17:47 12/29/24 16:57 12/29/24 17:47 12/29/24 16:57 12/29/24 16:57 Narrative: General: Awake alert, no acute distress HEENT: head atraumatic, normocephalic, moist mucous membranes Neck: supple no masses, no lymphadenopathy CVS: regular rate and rhythm, no murmurs or gallops Respiratory: clear to auscultation bilaterally, no wheezing or crackles, symmetric expansion GI: soft, nondistended, nontender, positive bowel sounds with no organomegaly Extremity: moves all extremities, no restrictions of movements, no calf tenderness, right sided weakness in the right upper and lower extremity. No diminished sensation Neuro: AOx3, CN II-VII intact. Moves all extremities in all planes of motion. Skin: intact no rashes or lesions Results - Hospitalist H&P Lab Results Labs: Laboratory Last Values Corrected WBC 13.0 X10E3/uL (4.1-10.5) H 12/29/24 15:25 Uncorrected WBC Count 13.0 x10E3/uL (4.1-10.5) H 12/29/24 15:25 RBC 4.66 x10E6/uL (3.90-5.60) 12/29/24 15:25 Hgb 14.5 g/dL (13.0-17.0) 12/29/24 15:25 Hct 43.7 % (38.8-50.0) 12/29/24 15:25 MCV 93.9 fl (83.5-101) 12/29/24 15:25 MCH 31.2 pg (27.5-35.2) 12/29/24 15: MCHC 33.3 g/dL (32.5-35.6) 12/29/24 15:25 RDW 14.3 % (12.0-14.8) 12/29/24 15:25 Plt Count 261 x10E3/uL (150-450) 12/29/24 15:25 MPV 8.3 fl (6.6-10.1) 12/29/24 15:25 Neut % (Auto) 68.2 % (.) 12/29/24 15:25 Lymph % (Auto) 24.4 % (.) 12/29/24 15:25 [place] % (Auto) 6.3 % (.) 12/29/24 15:25 Eos % (Auto) 0.6 % (.) 12/29/24 15:25 Baso % (Auto) 0.5 % (.) 12/29/24 15:25 Nucleat RBC Rel Count 0.1 /100 WBC (0-0.5) 12/29/24 15:25 Neut # (Auto) 8.9 x10E3/uL (1.8-7.7) H 12/29/24 15:25 Lymph # (Auto) 3.2 x10E3/uL (1.00-4.8) 12/29/24 15:25 [place] # (Auto) 0.8 x10E3/uL (0.0-0.8) 12/29/24 15:25 Eos # (Auto) 0.1 x10E3/uL (0.0-0.45) 12/29/24 15:25 Baso # (Auto) 0.1 x10E3/uL (0.0-0.2) 12/29/24 15:25 Monocyte Dist Width 18.13 % (0.00-20.00) 12/29/24 15:25 Platelet Estimate Normal (Normal) 12/29/24 15:25 Plt Morphology Comment Normal (Normal) 12/29/24 15:25 RBC Morphology Normal (Normal) 12/29/24 15:25 PT 11.7 Seconds (9.0-12.9) 12/29/24 15:25 INR 1.0 12/29/24 15:25 APTT 23.2 Seconds (25.1-36.5) L 12/29/24 15:25 PHA Creatinine Clear 53.00 12/29/24 15:25 Sodium 140 mmol/L (136-145) 12/29/24 15:25 Potassium 4.2 mmol/L (3.5-5.1) 12/29/24 15:25 Chloride 110 mmol/L (98-107) H 12/29/24 15:25 Carbon Dioxide 22.2 mmol/L (21.0-31.0) 12/29/24 15:25 Anion Gap 12.0 mEq/L (6.0-15.0) 12/29/24 15:25 BUN 20 mg/dL (7-25) 12/29/24 15:25 Creatinine 1.74 mg/dL (0.70-1.30) H 12/29/24 15:25 Est GFR (CKD-EPI) 42.703 mL/Min 12/29/24 15:25 Glucose 136 mg/dL (70-100) H 12/29/24 15:25 POC Glucose 134 mg/dl 12/29/24 15:24 POC Glucose Comment Glu2: cleaned meter 12/29/24 15:24 Calcium 9.4 mg/dL (8.6-10.3) 12/29/24 15:25 Total Bilirubin 0.7 mg/dl (0.3-1.0) 12/29/24 15:25 AST 25 U/L (13-39) 12/29/24 15:25 ALT 36 U/L (7-52) 12/29/24 15:25 Alkaline Phosphatase 96 U/L (34-104) 12/29/24 15:25 Total Creatine Kinase 76 U/L (30-223) 12/29/24 15:25 Troponin I High Sens 4 ng/L (0-20) 12/29/24 15:25 Total Protein 7.7 gm/dL (6.4-8.9) 12/29/24 15:25 Albumin 4.5 gm/dL (3.5-5.7) 12/29/24 15:25 Globulin 3.2 gm/dL 12/29/24 15:25 Albumin/Globulin Ratio 1.4 12/29/24 15:25 SARS-CoV-2 Rap RNA(RT-PCR) Negative (Negative) 12/29/24 16:15 Microbiology Results Micro: Microbiology - Results from entire visit 12/29/24 16:15 Nasopharyngeal SARS-CoV-2, Influenza & RSV (PCR) - Final Assessment & Plan Assessment/Plan (1) Right sided weakness: Plan This is a 66-year-old male with significant past medical history of ischemic stroke on 2019 with chronic right-sided deficit, BPH, restless leg syndrome, CKD, diabetes mellitus type 2, hyperlipidemia, hypertension presented with a chief complaints of worsening right-sided weakness with he noticed yesterday morning after waking up. He also complains of having new numbness in the right lower face. Patient denies any headache any nasal congestion sore throat neck rigidity, chest pain shortness of breath nausea vomiting diarrhea fever or chills or dysuria urgency or frequency. Patient also got 1 dose of Lasix in the ED. in the ED he was hemodynamically stable lab work shows WBC of 13, hemoglobin 14.5, INR of 1 normal electrolytes, creatinine of 1.74 and normal liver enzymes, troponin of 4 urine tox positive for opioids and benzodiazepines. Head CT showed no acute findings CTA of the head shows no occlusion critical stenosis or dissection of the extracranial or intracranial circulation. Thyroid nodule measuring 14 mm Plan: -Admit to regular nursing floor under observation -Continuous telemetry -Continue on aspirin and statin hold on blood pressure medication for permissive hypertension -Continue POA medication-Xanax as needed, BuSpar, vitamin D2, propranolol, semaglutide and tamsulosin questionable -Neurologist consulted-appreciate recommendation -Follow-up MRI of the head and workup for neurological deficit -Follow-up morning labs Heart healthy diet - IP vs OBS Justification Based on differential dx, clinical care plan, and risk of adverse events, if untreated, in my clinical judgement this patient requires an acute care setting as: OBSERVATION because of an expectation of an under 2 midnight stay. Estimated length of stay (# of days): 2 Documented By: Maurice Foote MD 12/29/24 181 Signed By: <Electronically signed by Maurice Foote MD> 12/29/24 1824 [facility] Work Phone: [phone] 697-845903-11-2025 History and physical note Author Maurice Foote [facility]Note Date/TimeMarch 2024 6:24pm[place] [address] Hospitalist H&P Signed Patient: Rod Mathias MR#: [id number] : 1960 Acct:[id number] Age/Sex: 64 / M Adm Date: 5 Loc: ER Room: Type: [facility] ER Attending Dr: Copies to: MD Olesya Patel MD Robert L Hill, MD~ HPI DATE OF EXAMINATION: 12/29/24 CHIEF COMPLAINT: Worsening right-sided weakness HISTORY OF PRESENT ILLNESS: This is a 66-year-old male with significant past medical history of ischemic stroke on 2019 with chronic right-sided deficit, BPH, restless leg syndrome, CKD, diabetes mellitus type 2, hyperlipidemia, hypertension presented with a chief complaints of worsening right-sided weakness with he noticed yesterday morning after waking up. He also complains of having new numbness in the right lower face. Patient denies any headache any nasal congestion sore throat neck rigidity, chest pain shortness of breath nausea vomiting diarrhea fever or chills or dysuria urgency or frequency. Patient also got 1 dose of Lasix in the ED. in the ED he was hemodynamically stable lab work shows WBC of 13, hemoglobin 14.5, INR of 1 normal electrolytes, creatinine of 1.74 and normal liver enzymes,troponin of 4 urinetox positive for opioids and benzodiazepines. Head CT showed no acute findings CTA of the head shows no occlusion critical stenosis ordissection of the extracranial or intracranial circulation. Thyroid nodule measuring 14 mm Review of Systems Review of Systems All other systems reviewed & are negative unless noted below or in HPI [facility] Medical History BPH (benign prostatic hyperplasia) Arthritis hips Problem List clean-up per request of Phys. EHR Cmte Back pain was told possible fracture vertebra Problem List clean-up per request of Phys. EHR Cmte Restless legs left leg Numbness and tingling of leg left leg CKD (chronic kidney disease) stage 3 Problem List clean-up per request of Phys. 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 EHR Cmte Hx of renal calculi Hyperlipidemia Hypertension Surgical History History of renal stent H/O colonoscopy H/O hernia repair umbilical Hx of cystoscopy stone basket Problem List clean-up per request of Phys. EHR Cmte Hx of cervical spine surgery anterior Problem List clean-up per request of Phys. EHR Cmte Hx of lithotripsy Family History Brother Diabetes Mother Hypertension Father Medical history unknown Social History Smoking Status: Never smoker Tobacco Type: cigarettes Substance Use Type: None Substance Abuse Comment: occasional social alcohol use Meds Medications and Allergies Allergies atb Allergy (Uncoded 08/09/24 18:19) bladder problem Home Medications amlodipine 5 mg tablet 5 mg PO QAM htn 02/22/21 [History Confirmed 08/09/24] atorvastatin 40 mg tablet (Lipitor) 40 mg PO QPM hyperlipidemia 07/12/22 [History Confirmed 08/09/24] aspirin 81 mg capsule 81 mg PO QAM 10/02/22 [History Confirmed 08/09/24] hydrocodone 5 mg-acetaminophen 325 mg tablet 1 - 2 tab PO Q4-6H PRN Pain 10/02/22 [History Confirmed 08/09/24] semaglutide 7 mg tablet (Rybelsus) 14 mg PO DAILY DM 02/05/23 [History Confirmed 08/10/24] alprazolam 0.5 mg tablet 0.5 mg PO Q8H PRN Anxiety 06/07/23 [History Confirmed 08/09/24] buspirone 15 mg tablet 15 mg PO BID 06/07/23 [History Confirmed 08/09/24] losartan 100 mg tablet 100 mg PO DAILY 06/07/23 [History Confirmed 08/09/24] propranolol 80 mg capsule,24 hr,extended release 80 mg PO DAILY 07/24/23 [History Confirmed 08/10/24] tamsulosin 0.4 mg capsule 0.4 mg PO DAILY 30 days #30 caps 07/13/24 [Rx Confirmed 08/09/24] ergocalciferol (vitamin D2) 1,250 mcg (50,000 unit) capsule (Vitamin D2) 50,000 unit PO QWEEK 08/10/24 [History Confirmed 08/10/24] ertapenem 1 gram solution for injection 1 g IV Q24H 14 days #10 ea 08/13/24 [Rx] Saccharomyces boulardii 250 mg capsule 250 mg PO BID.WITH.MEALS 14 days #28 caps 08/14/24 [Rx] Exam Physical Exam Vital Signs: Temp Pulse Resp BP Pulse Ox O2 Del Method 97.8 F 74 18 146/80 H 98 Room Air 12/29/24 15:23 12/29/24 17:47 12/29/24 16:57 12/29/24 17:47 12/29/24 16:57 12/29/24 16:57 Narrative: General: Awake alert, no acute distress HEENT: head atraumatic, normocephalic, moist mucous membranes Neck: supple no masses, no lymphadenopathy CVS: regular rate and rhythm, no murmurs or gallops Respiratory: clear to auscultation bilaterally, no wheezing or crackles, symmetric expansion GI: soft, nondistended, nontender, positive bowel sounds with no organomegaly Extremity: moves all extremities, no restrictions of movements, no calf tenderness, right sided weakness in the right upper and lower extremity. No diminished sensation Neuro: AOx3, CN II-VII intact. Moves all extremities in all planes of motion. Skin: intact no rashes or lesions Results - Hospitalist H&P Lab Results Labs: Laboratory Last Values Corrected WBC 13.0 X10E3/uL (4.1-10.5) H 12/29/24 15:25 Uncorrected WBC Count 13.0 x10E3/uL (4.1-10.5) H 12/29/24 15:25 RBC 4.66 x10E6/uL (3.90-5.60) 12/29/24 15:25 Hgb 14.5 g/dL (13.0-17.0) 12/29/24 15:25 Hct 43.7 % (38.8-50.0) 12/29/24 15:25 MCV 93.9 fl (83.5-101) 12/29/24 15: MCH 31.2 pg (27.5-35.2) 12/29/24 15:25 MCHC 33.3 g/dL (32.5-35.6) 12/29/24 15: RDW 14.3 % (12.0-14.8) 12/29/24 15: Plt Count 261 x10E3/uL (150-450) 12/29/24 15: MPV 8.3 fl (6.6-10.1) 12/29/24 15:25 Neut % (Auto) 68.2 % (.) 12/29/24 15:25 Lymph % (Auto) 24.4 % (.) 12/29/24 15:25 [place] % (Auto) 6.3 % (.) 12/29/24 15:25 Eos % (Auto) 0.6 % (.) 12/29/24 15:25 Baso % (Auto) 0.5 % (.) 12/29/24 15:25 Nucleat RBC Rel Count 0.1 /100 WBC (0-0.5) 12/29/24 15:25 Neut # (Auto) 8.9 x10E3/uL (1.8-7.7) H 12/29/24 15:25 Lymph # (Auto) 3.2 x10E3/uL (1.00-4.8) 12/29/24 15:25 [place] # (Auto) 0.8 x10E3/uL (0.0-0.8) 12/29/24 15:25 Eos # (Auto) 0.1 x10E3/uL (0.0-0.45) 12/29/24 15:25 Baso # (Auto) 0.1 x10E3/uL (0.0-0.2) 12/29/24 15: Monocyte Dist Width 18.13 % (0.00-20.00) 12/29/24 15:25 Platelet Estimate Normal (Normal) 12/29/24 15:25 Plt Morphology Comment Normal (Normal) 12/29/24 15:25 RBC Morphology Normal (Normal) 12/29/24 15:25 PT 11.7 Seconds (9.0-12.9) 12/29/24 15:25 INR 1.0 12/29/24 15:25 APTT 23.2 Seconds (25.1-36.5) L 12/29/24 15:25 PHA Creatinine Clear 53.00 12/29/24 15:25 Sodium 140 mmol/L (136-145) 12/29/24 15:25 Potassium 4.2 mmol/L (3.5-5.1) 12/29/24 15:25 Chloride 110 mmol/L (98-107) H 12/29/24 15:25 Carbon Dioxide 22.2 mmol/L (21.0-31.0) 12/29/24 15:25 Anion Gap 12.0 mEq/L (6.0-15.0) 12/29/24 15:25 BUN 20 mg/dL (7-25) 12/29/24 15:25 Creatinine 1.74 mg/dL (0.70-1.30) H 12/29/24 15:25 Est GFR (CKD-EPI) 42.703 mL/Min 12/29/24 15:25 Glucose 136 mg/dL (70-100) H 12/29/24 15:25 POC Glucose 134 mg/dl 12/29/24 15:24 POC Glucose Comment Glu2: cleaned meter 12/29/24 15:24 Calcium 9.4 mg/dL (8.6-10.3) 12/29/24 15:25 Total Bilirubin 0.7 mg/dl (0.3-1.0) 12/29/24 15:25 AST 25 U/L (13-39) 12/29/24 15:25 ALT 36 U/L (7-52) 12/29/24 15:25 Alkaline Phosphatase 96 U/L (34-104) 12/29/24 15:25 Total Creatine Kinase 76 U/L (30-223) 12/29/24 15:25 Troponin I High Sens 4 ng/L (0-20) 12/29/24 15:25 Total Protein 7.7 gm/dL (6.4-8.9) 12/29/24 15:25 Albumin 4.5 gm/dL (3.5-5.7) 12/29/24 15:25 Globulin 3.2 gm/dL 12/29/24 15:25 Albumin/Globulin Ratio 1.4 12/29/24 15:25 SARS-CoV-2 Rap RNA(RT-PCR) Negative (Negative) 12/29/24 16:15 Microbiology Results Micro: Microbiology - Results from entire visit 12/29/24 16:15 Nasopharyngeal SARS-CoV-2, Influenza & RSV (PCR) - Final Assessment & Plan Assessment/Plan (1) Right sided weakness: Plan This is a 66-year-old male with significant past medical history of ischemic stroke on 2019 with chronic right-sided deficit, BPH, restless leg syndrome, CKD, diabetes mellitus type 2, hyperlipidemia, hypertension presented with a chief complaints of worsening right-sided weakness with he noticed yesterday morning after waking up. He also complains of having new numbness in the right lower face. Patient denies any headache any nasal congestion sore throat neck rigidity, chest pain shortness of breath nausea vomiting diarrhea fever or chills or dysuria urgency or frequency. Patient also got 1 dose of Lasix in the ED. in the ED he was hemodynamically stable lab work shows WBC of 13, hemoglobin 14.5, INR of 1 normal electrolytes, creatinine of 1.74 and normal liver enzymes, troponin of 4 urine tox positive for opioids and benzodiazepines. Head CT showed no acute findings CTA of the head shows no occlusion critical stenosis or dissection of the extracranial or intracranial circulation. Thyroid nodule measuring 14 mm Plan: -Admit to regular nursing floor under observation -Continuous telemetry -Continue on aspirin and statin hold on blood pressure medication for permissive hypertension -Continue POA medication-Xanax as needed, BuSpar, vitamin D2, propranolol, semaglutide and tamsulosin questionable -Neurologist consulted-appreciate recommendation -Follow-up MRI of the head and workup for neurological deficit -Follow-up morning labs Heart healthy diet - IP vs OBS Justification Based on differential dx, clinical care plan, and risk of adverse events, if untreated, in my clinical judgement this patient requires an acute care setting as: OBSERVATION because of an expectation of an under 2 midnight stay. Estimated length of stay (# of days): 2 Documented By: Maurice Foote MD 12/29/24 1816 Signed By: <Electronically signed by Maurice Foote MD> 12/29/24 6934 [facility] Work Phone: 1(620) 664-485603-11-2025 Evaluation note* Diagnosis Onset Date Resolution Status Admit Date Right sided weakness acuteMarch 2024 4:46pmRight-sided sensory [facility] 4:46pm [facility] Work Phone: 1(627) 331-205503-11-2025 Evaluation note* Diagnosis Onset Date Resolution Status Admit Date WILD (acute kidney injury) acuteMarch 2024 4:75hiN95 deficiencyacuteMarch 2024 4:46pmImpaired mobilityacuteMarch 2024 4:46pmRight sided weaknessacuteMarch 2024 4:46pmRight-sided sensory deficit [facility] 4:46pmWeakness acuteMarch 2024 4:46pm [facility] Work Phone: 1(929) 459-433103-11-2025 [place] [address] Hospitalist H&P Signed Patient: Rod Mathias MR#: [id number] : 1960 Acct:[id number] Age/Sex: 64 / M Adm Date: 5 Loc: ER Room: Type: [facility] ER Attending Dr: Copies to: MD Olesya Patel MD Robert L Hill, MD~ [facility] DATE OF EXAMINATION: 12/29/24 CHIEF COMPLAINT: Worsening right-sided weakness HISTORY OF PRESENT ILLNESS: This is a 66-year-old male with significant past medical history of ischemic stroke on 2019 with chronic right-sided deficit, BPH, restless leg syndrome, CKD, diabetes mellitus type 2, hyperlipidemia, hypertension presented with a chief complaints of worsening right-sided weakness with he noticed yesterday morning after waking up. He also complains of having new numbness in the right lower face. Patient denies any headache any nasal congestion sore throat neck rigidity, chest pain shortness of breath nausea vomiting diarrhea fever or chills or dysuria urgency or frequency. Patient also got 1 dose of Lasix in the ED. in the ED he was hemodynamically stable lab work shows WBC of 13, hemoglobin 14.5, INR of 1 normal electrolytes, creatinine of 1.74 and normal liver enzymes,troponin of 4 urinetox positive for opioids and benzodiazepines. Head CT showed no acute findings CTA of the head shows no occlusion critical stenosis ordissection of the extracranial or intracranial circulation. Thyroid nodule measuring 14 mm Review of Systems Review of Systems All other systems reviewed & are negative unless noted below or in HPI [facility] Medical History BPH (benign prostatic hyperplasia) Arthritis hips Problem List clean-up per request of Phys. EHR Cmte Back pain was told possible fracture vertebra Problem List clean-up per request of Phys. EHR Cmte Restless legs left leg Numbness and tingling of leg left leg CKD (chronic kidney disease) stage 3 Problem List clean-up per request of Phys. 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 EHR Cmte Hx of renal calculi Hyperlipidemia Hypertension Surgical History History of renal stent H/O colonoscopy H/O hernia repair umbilical Hx of cystoscopy stone basket Problem List clean-up per request of Phys. EHR Cmte Hx of cervical spine surgery anterior Problem List clean-up per request of Phys. EHR Cmte Hx of lithotripsy Family History Brother Diabetes Mother Hypertension Father Medical history unknown Social History Smoking Status: Never smoker Tobacco Type: cigarettes Substance Use Type: None Substance Abuse Comment: occasional social alcohol use Meds Medications and Allergies Allergies atb Allergy (Uncoded 08/09/24 18:19) bladder problem Home Medications amlodipine 5 mg tablet 5 mg PO QAM htn 02/22/21 [History Confirmed 08/09/24] atorvastatin 40 mg tablet (Lipitor) 40 mg PO QPM hyperlipidemia 07/12/22 [History Confirmed 08/09/24] aspirin 81 mg capsule 81 mg PO QAM 10/02/22 [History Confirmed 08/09/24] hydrocodone 5 mg-acetaminophen 325 mg tablet 1 - 2 tab PO Q4-6H PRN Pain 10/02/22 [History Confirmed 08/09/24] semaglutide 7 mg tablet (Rybelsus) 14 mg PO DAILY DM 02/05/23 [History Confirmed 08/10/24] alprazolam 0.5 mg tablet 0.5 mg PO Q8H PRN Anxiety 06/07/23 [History Confirmed 08/09/24] buspirone 15 mg tablet 15 mg PO BID 06/07/23 [History Confirmed 08/09/24] losartan 100 mg tablet 100 mg PO DAILY 06/07/23 [History Confirmed 08/09/24] propranolol 80 mg capsule,24 hr,extended release 80 mg PO DAILY 07/24/23 [History Confirmed 08/10/24] tamsulosin 0.4 mg capsule 0.4 mg PO DAILY 30 days #30 caps 07/13/24 [Rx Confirmed 08/09/24] ergocalciferol (vitamin D2) 1,250 mcg (50,000 unit) capsule (Vitamin D2) 50,000 unit PO QWEEK 08/10/24 [History Confirmed 08/10/24] ertapenem 1 gram solution for injection 1 g IV Q24H 14 days #10 ea 08/13/24 [Rx] Saccharomyces boulardii 250 mg capsule 250 mg PO BID.WITH.MEALS 14 days #28 caps 08/14/24 [Rx] Exam Physical Exam Vital Signs: Temp Pulse Resp BP Pulse Ox O2 Del Method 97.8 F 74 18 146/80 H 98 Room Air 12/29/24 15:23 12/29/24 17:47 12/29/24 16:57 12/29/24 17:47 12/29/24 16:57 12/29/24 16:57 Narrative: General: Awake alert, no acute distress HEENT: head atraumatic, normocephalic, moist mucous membranes Neck: supple no masses, no lymphadenopathy CVS: regular rate and rhythm, no murmurs or gallops Respiratory: clear to auscultation bilaterally, no wheezing or crackles, symmetric expansion GI: soft, nondistended, nontender, positive bowel sounds with no organomegaly Extremity: moves all extremities, no restrictions of movements, no calf tenderness, right sided weakness in the right upper and lower extremity. No diminished sensation Neuro: AOx3, CN II-VII intact. Moves all extremities in all planes of motion. Skin: intact no rashes or lesions Results - Hospitalist H&P Lab Results Labs: Laboratory Last Values Corrected WBC 13.0 X10E3/uL (4.1-10.5) H 12/29/24 15:25 Uncorrected WBC Count 13.0 x10E3/uL (4.1-10.5) H 12/29/24 15:25 RBC 4.66 x10E6/uL (3.90-5.60) 12/29/24 15:25 Hgb 14.5 g/dL (13.0-17.0) 12/29/24 15:25 Hct 43.7 % (38.8-50.0) 12/29/24 15: MCV 93.9 fl (83.5-101) 12/29/24 15:25 MCH 31.2 pg (27.5-35.2) 12/29/24 15:25 MCHC 33.3 g/dL (32.5-35.6) 12/29/24 15:25 RDW 14.3 % (12.0-14.8) 12/29/24 15:25 Plt Count 261 x10E3/uL (150-450) 12/29/24 15:25 MPV 8.3 fl (6.6-10.1) 12/29/24 15:25 Neut % (Auto) 68.2 % (.) 12/29/24 15:25 Lymph % (Auto) 24.4 % (.) 12/29/24 15:25 [place] % (Auto) 6.3 % (.) 12/29/24 15:25 Eos % (Auto) 0.6 % (.) 12/29/24 15:25 Baso % (Auto) 0.5 % (.) 12/29/24 15:25 Nucleat RBC Rel Count 0.1 /100 WBC (0-0.5) 12/29/24 15:25 Neut # (Auto) 8.9 x10E3/uL (1.8-7.7) H 12/29/24 15:25 Lymph # (Auto) 3.2 x10E3/uL (1.00-4.8) 12/29/24 15:25 [place] # (Auto) 0.8 x10E3/uL (0.0-0.8) 12/29/24 15:25 Eos # (Auto) 0.1 x10E3/uL (0.0-0.45) 12/29/24 15:25 Baso # (Auto) 0.1 x10E3/uL (0.0-0.2) 12/29/24 15:25 Monocyte Dist Width 18.13 % (0.00-20.00) 12/29/24 15:25 Platelet Estimate Normal (Normal) 12/29/24 15:25 Plt Morphology Comment Normal (Normal) 12/29/24 15:25 RBC Morphology Normal (Normal) 12/29/24 15: PT 11.7 Seconds (9.0-12.9) 12/29/24 15: INR 1.0 12/29/24 15:25 APTT 23.2 Seconds (25.1-36.5) L 12/29/24 15:25 PHA Creatinine Clear 53.00 12/29/24 15:25 Sodium 140 mmol/L (136-145) 12/29/24 15:25 Potassium 4.2 mmol/L (3.5-5.1) 12/29/24 15:25 Chloride 110 mmol/L (98-107) H 12/29/24 15:25 Carbon Dioxide 22.2 mmol/L (21.0-31.0) 12/29/24 15:25 Anion Gap 12.0 mEq/L (6.0-15.0) 12/29/24 15:25 BUN 20 mg/dL (7-25) 12/29/24 15:25 Creatinine 1.74 mg/dL (0.70-1.30) H 12/29/24 15:25 Est GFR (CKD-EPI) 42.703 mL/Min 12/29/24 15:25 Glucose 136 mg/dL (70-100) H 12/29/24 15:25 POC Glucose 134 mg/dl 12/29/24 15:24 POC Glucose Comment Glu2: cleaned meter 12/29/24 15:24 Calcium 9.4 mg/dL (8.6-10.3) 12/29/24 15:25 Total Bilirubin 0.7 mg/dl (0.3-1.0) 12/29/24 15:25 AST 25 U/L (13-39) 12/29/24 15:25 ALT 36 U/L (7-52) 12/29/24 15:25 Alkaline Phosphatase 96 U/L (34-104) 12/29/24 15:25 Total Creatine Kinase 76 U/L (30-223) 12/29/24 15:25 Troponin I High Sens 4 ng/L (0-20) 12/29/24 15:25 Total Protein 7.7 gm/dL (6.4-8.9) 12/29/24 15:25 Albumin 4.5 gm/dL (3.5-5.7) 12/29/24 15:25 Globulin 3.2 gm/dL 12/29/24 15:25 Albumin/Globulin Ratio 1.4 12/29/24 15:25 SARS-CoV-2 Rap RNA(RT-PCR) Negative (Negative) 12/29/24 16:15 Microbiology Results Micro: Microbiology - Results from entire visit 12/29/24 16:15 Nasopharyngeal SARS-CoV-2, Influenza & RSV (PCR) - Final Assessment & Plan Assessment/Plan (1) Right sided weakness: Plan This is a 66-year-old male with significant past medical history of ischemic stroke on 2019 with chronic right-sided deficit, BPH, restless leg syndrome, CKD, diabetes mellitus type 2, hyperlipidemia, hypertension presented with a chief complaints of worsening right-sided weakness with he noticed yesterday morning after waking up. He also complains of having new numbness in the right lower face. Patient denies any headache any nasal congestion sore throat neck rigidity, chest pain shortness of breath nausea vomiting diarrhea fever or chills or dysuria urgency or frequency. Patient also got 1 dose of Lasix in the ED. in the ED he was hemodynamically stable lab work shows WBC of 13, hemoglobin 14.5, INR of 1 normal electrolytes, creatinine of 1.74 and normal liver enzymes, troponin of 4 urine tox positive for opioids and benzodiazepines. Head CT showed no acute findings CTA of the head shows no occlusion critical stenosis or dissection of the extracranial or intracranial circulation. Thyroid nodule measuring 14 mm Plan: -Admit to regular nursing floor under observation -Continuous telemetry -Continue on aspirin and statin hold on blood pressure medication for permissive hypertension -Continue POA medication-Xanax as needed, BuSpar, vitamin D2, propranolol, semaglutide and tamsulosin questionable -Neurologist consulted-appreciate recommendation -Follow-up MRI of the head and workup for neurological deficit -Follow-up morning labs Heart healthy diet - IP vs OBS Justification Based on differential dx, clinical care plan, and risk of adverse events, if untreated, in my clinical judgement this patient requires an acute care setting as: OBSERVATION because of an expectation of an under 2 midnight stay. Estimated length of stay (# of days): 2 Documented By: Maurice Foote MD 12/29/241815 Signed By: 12/29/241823 [facility]03-11-2025 Radiology Diagnostic study note [facility] Main [place] [address] [place] [address] CT Scan Report Signed Patient: Rod Mathias MR#: [id number] : 1960 Acct:[id number] Age/Sex: 64 / M ADM Date: 5 Loc: ER Room: Type: PRE ER Attending Dr: Copies to: Olesya Hutton MD~ Ordering Provider: Olesya Hutton MD Date of Service: 12/29/24 CT/CT angio head: R sided weakness, [facility] 12/28/24 0800 ([id number]) CT/CT angio neck: R sided weakness, [facility] 12/28/24 0800 CTA Head and Neck TECHNIQUE: Axial imaging of the head and neck with 2-D and 3-D reconstruction. 90cc of Isovue-370. The CT exam was performed using one or more the following dose reduction techniques: Automated exposure control, adjustment of the MA and/or Kv according to patient size, or use of the iterative reconstruction technique. Stenoses were measured using the NASCET criteria. COMPARISON: None HISTORY: Acute confusion. Right-sided weakness. The visualized aortic arch and great vessels are unremarkable. Subclavian arteries are patent No carotid dissection, critical stenosis or occlusion identified. No vertebral dissection, occlusion or abrupt cut off identified. The carotid siphons and vertebral basilar systems are patent. No intracranial aneurysm, dissection, abrupt cut off or critical stenosis identified.. . 14 mm left thyroid nodule. Additional smaller nodules suspected. C5-6 fixation. Degenerative changeof the cervical spine. CT/CT angio head IMPRESSION: No occlusion, critical stenosis or dissection of the extracranial orintracranial circulation. Thyroid nodules measuring up to 14 mm. Impression dictated by: Steve Thurston M.D.12/29/2024 4:29 PM Dictation Location: RADIO-InsideView-20 Transcribed By: THADDEUS 12/29/24 1629 Dictated By: Steve Thurston DO 12/29/24 1622 Signed By: 12/29/24 1629 [facility]03-11-2025 Radiology Diagnostic study note [facility] Main [place] [address] [place] [address] CT Scan Report Signed Patient: Rod Mathias MR#: [id number] : 1960 Acct:[id number] Age/Sex: 64 / M ADM Date: 5 Loc: ER Room: Type: PRE ER Attending Dr: Copies to: Olesya Hutton MD~ Ordering Provider: Olesya Hutton MD Date of Service: 12/29/24 CT/CT head stroke alert wo con: stroke Unenhanced head CTstroke standby TECHNIQUE: Contiguous axial imaging of the head. The CT exam was performed usingone or more the following dose reduction techniques: Automated exposure control,adjustment of the MA and/or Kv according to patient size, or use of the iterative reconstruction technique. COMPARISON: 07/24/2023 HISTORY: Confusion. Right-sided weakness. VENTRICLES: Within normal limits ATROPHY: None BRAIN PARENCHYMA: Adequate daniels-white matter differentiation identified. HEMORRHAGE: None HERNIATION: No mass effect or herniation INFARCTION: No recent vascular distribution infarction is seen. EXTRA-AXIAL FLUID COLLECTIONS None MIDBRAIN: Unremarkable MARIO: Unremarkable MEDULLA: Unremarkable SINUSES: Unremarkable ORBITS: Grossly unremarkable MASTOIDS: Unremarkable BONY STRUCTURES Intact ADDITIONAL FINDINGS: CT/CT head stroke alert wo con IMPRESSION: No acute findings. Preliminary 3:45 PM 12/29/2024 Impression dictated by: Steve Thurston M.D.12/29/2024 3:48 PM Dictation Location: [facility]-20 Transcribed By: THADDEUS 12/29/24 1548 Dictated By: Steve Thurston DO 12/29/24 1542 Signed By: 12/29/24 1548 [facility]03-11-2025 Progress note Author Mikey Rose [facility] Date/TimeMarch 2024 3:[place] [address] Neurology Progress Note Signed Patient: Rod Mathias MR#: [id number] : 1960 Acct:[id number] Age/Sex: 64 / M Adm Date: 5 Loc: Room: [address] [place] [address] Type: ADM INOo Attending Dr: Maurice Foote MD Copies to: ~ Date of Service: 12/31/2024 Exam Physical Exam Vital Signs: Temp Pulse Resp BP Pulse Ox O2 Del Method 98.0 F 68 20 137/79 97 Room Air 12/31/24 08:00 12/31/24 08:00 12/31/24 08:00 12/31/24 08:00 12/31/24 08:00 12/31/24 08:00 Objective Vital Signs Vital Signs: Vital Signs - 24 hr 12/30/24 12:00 12/30/24 16:00 12/30/24 16:00 Temperature 97.9 F Pulse Rate 63 67 Respiratory Rate 16 18 Blood Pressure 112/67 138/71 02 Sat by Pulse Oximetry 95 96 Oxygen Delivery Method Room Air Room Air Room Air 12/30/24 18:00 12/30/24 20:46 12/30/24 20:47 Temperature 97.8 F 97.8 F Pulse Rate 63 66 Respiratory Rate 18 18 Blood Pressure 117/68 149/81 H 02 Sat by Pulse Oximetry 97 98 Oxygen Delivery Method Room Air Room Air Room Air 12/31/24 00:00 12/31/24 04:00 12/31/24 08:00 Temperature 98.0 F 98.0 F Pulse Rate 60 60 68 Respiratory Rate 18 18 20 Blood Pressure 132/72 133/66 137/79 02 Sat by Pulse Oximetry 98 96 97 Oxygen Delivery Method Room Air Room Air Room Air 12/31/24 08:00 Temperature Pulse Rate Respiratory Rate Blood Pressure 02 Sat by Pulse Oximetry Oxygen Delivery Method Room Air Labs 12/31/24 06:26 12/31/24 06:26 Therapy Recommendations Therapy Recommendations: OT Recommendations OT Recommended Discharge Inpatient Rehab Unit Location PT Recommendations PT Recommended Discharge Inpatient Rehab Unit Location PT Recommended Services at Physical Therapy Discharge Assessment/Plan (1) Right sided weakness: (2) B12 deficiency: Plan CONSULT REASON: Worsening right-sided weakness SUBJECTIVE: He still feels like the right side of his face feels a little funny and the right lower extremity is a little weak compared to usual, but overall is feelingsignificantly better compared to yesterday.His speech issues have cleared up. He is thinking more clearly today. EXAMINATION: In no distress. No deformities or trauma. Limbs seem well-perfused. No significant edema. Normal work of breathing. Visualized skin is generally intact and without lesions. Affect normal. Patient is alert. Attention normal. Speech is generally limited and nondysarthric, though sometimes he exhibitsmild stuttering/stammering. Pupils are equal and reactive. Ocular motility is full. No nystagmus. Facial sensation is normal. Hearing is normal. Facial strength is normal. Tongue is midline. No limb drift or pronator drift in upper extremities. Left lower extremity with full strength. Right lower extremity with some giveaway weakness and effort was questionable. No significant tremors. Reflexes +3/4 throughout and especially brisk at the right patella. Light touch is normal. No limb ataxia. DATA REVIEW: -A1c 6.8% -Ionized calcium 1.25 (normal) -Total cholesterol 140, LDL 67 -Initial leukocytosis 13 now down to 7.7 -MRI brain without contrast December 29, 2024 is without acute findings -MRI cervical spine December 20, 2020 showed posterior disc herniation at C5-6 with moderate to severe central spinal canal stenosis and cord compression and myelopathy -MRI lumbar spine May 02, 2022 showed moderate to severe bilateral neuroforaminal stenosis at L5-S1, and other significant degenerative changes -MRI brain without contrast from November 05, 2018 shows a tiny nonacute lacunar infarction in the right thalamus -Routine EEG July 12, 2023 was normal -MRI cervical spine December 30, 2024 shows C5-6 postsurgical fusion without complication, similar findings of myelomalacia of the cord at the C5-6 level. Multilevel discovertebral degenerative changes,no developing new regions of cord edema or hemorrhage. 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 He presents with a number of symptoms such as acute on chronic weakness in his right lower extremity, paresthesias to the right lower face, blurred vision, intermittent speech changes with stuttering, and issues with cognition and concentration. He has presented on past occasions with similar symptoms. Oftenhas a headache to some extent as well. He presented back in October 2018 with similar symptoms to now, though those were left-sided. MRI brain does not offer explanation for any of his presenting symptoms and looks normal. He does not have any objective evidence of acute or chronic ischemic stroke. I do not think he has had previous stroke. His MRI cervical spine demonstrates chronic myelomalacia at the C5-6 level and no acute findings. He has chronic complaints of cognitive impairment. His B12 is low and we will replete. PLAN: 1. One-time dose of cyanocobalamin 1000 mcg IM and then 1000 mcg orally daily 2. Outpatient neuropsych evaluation 3. No other inpatient recommendations from neurology at this time Documented By: Mikey Rose DO 12/31/24 1149 Signed By: <Electronically signed by Mikey Rose DO> 12/31/24 8878 [facility] Work Phone: 1([phone]) 649-694801-08-2025 History of Present illness Narrative* Soraya Hawk, [employer] - 10/28/2024 1:00 PM EST Images from the original note were not included. Rod Mathias is a 64 y.o. male presents with chief complaint of 3 Month Follow-up of Chronic Conditions (Pt is being seen for management of chronic pain. Pt will be scheduled for cystoscopy with Dr. Heath.) and Diabetes (He has been off Invokana for a few months due to S/E of UTI) HPI: History of Present Illness The patient presents for evaluation of anxiety, diabetes mellitus, and nausea. He reports experiencing persistent anxiety, which he manages with daily Xanax. He recently refilledhis Xanax prescription at the end of September 2024. He has been experiencing nausea, which he attributes to his medication regimen. He is currently on omeprazole, prescribed by Dr. Hernandez, and reports no symptoms of heartburn. He also reports no chest pain or respiratory distress. His bowel movements have decreased in frequency over the past 7 to 10 days, from every other day to once every 3 to 4 days. He acknowledges inadequate hydration due to a lack of thirst and the need to force himself to drink water. He expresses satisfaction with the control of his A1c level which is now 6.6. He was previously on Invokana but has since discontinued its use and Rybelsus is working better. Supplemental Information He is trying to get into the dentist to get his teeth fixed. MEDICATIONS Current: Omeprazole, alprazolam, Rybelsus, Fortine (hydrocodone). Discontinued: Invokana. I have reviewed and reconciled the history and medication list with the patient today. HISTORIES: PAST MEDICAL HISTORY: Past Medical History: Diagnosis Date Anxiety Chronic kidney disease, stage 3a (HCC) ([facility]) Essential hypertension ([facility]) History of CVA (cerebrovascular accident) History of vertebral fracture Hyperlipidemia ([facility]) Kidney stones MGUS (monoclonal gammopathy of unknown significance) Primary osteoarthritis involving multiple joints Stroke ([facility]) Tinnitus of both ears Type 2 diabetes mellitus with diabetic neuropathy ([facility]) SURGICAL HISTORY: Past Surgical History: Procedure Laterality Date CERVICAL SPINE SURGERY Dr. Henry COLONOSCOPY 2017 CYSTOSCOPY 06/05/2024 1 cm right calculus EXCISION Right 07/2022 shoulder cyst [facility] OTHER SURGICAL HISTORY 05/2022 stent removed from kidney (stone) UMBILICAL HERNIA REPAIR 07/26/2022 UMBILICAL HERNIA REPAIR 07/2022 [facility] URETERAL STENT PLACEMENT Left 05/2022 Dr. heath SOCIAL HISTORY: Social History Tobacco Use Smoking status: Former Current packs/day: 0.00 Types: Cigarettes Start date: 10/21/1979 Quit date: 10/21/1999 Years since quittin.0 Smokeless tobacco: Never Vaping Use Vaping status: Never Used Substance Use Topics Alcohol use: Not Currently Comment: caffeine: coffee 1 cup a day Drug use: Never Depression: Not at risk (02/20/2024) PHQ-2 PHQ-2 Score: 1 FAMILY HISTORY: Family History Problem Relation Name Age of Onset Hypertension Mother Mother No Known Problems Father Diabetes Brother Brother Hypertension Brother Brother No Known Problems Daughter MEDICATIONS: Current Outpatient Medications Medication Instructions ALPRAZolam (XANAX) 0.5 mg, Oral, Every 8 hours PRN amLODIPine (NORVASC) 5 mg, Oral, Daily ASPIRIN 81 MG chewable tablet Every 24 hours atorvastatin (LIPITOR) 40 mg, Oral, Nightly ergocalciferol (VITAMIN D-2) 1.25 mg, Oral, Weekly glimepiride (Amaryl) 1 MG tablet take 1 tablet by mouth every morning with meals HYDROcodone-acetaminophen (Fortine) 5-325 MG tablet 1-2 tablets, Oral, Every 4 hours PRN losartan (COZAAR) 100 mg, Oral, Every morning omeprazole (PRILOSEC) 20 mg, Oral, Daily, Do not crush or chew. propranolol LA (INDERAL LA) 80 mg, Oral, Daily semaglutide (RYBELSUS) 14 mg, Oral, Daily before breakfast ALLERGIES: Allergies Allergen Reactions Lisinopril-Hydrochlorothiazide Other Reaction(s): Other foggy-headed , out of sorts Buspar [Buspirone] Other Lower extremity edema Metformin Other Reaction(s): fatigue PHYSICAL EXAM: Visit Vitals BP 130/74 (BP Location: Left arm, Patient Position: Sitting) Pulse 89 Ht 5' 10 Wt 243 lb SpO2 97% BMI 34.87 kg/m Smoking Status Former BSA 2.33 m BP Readings from Last 3 Encounters: 10/28/24 130/74 08/20/24 122/60 07/22/24 98/60 Wt Readings from Last 3 Encounters: 10/28/24 243 lb 08/20/24 242 lb 07/22/24 236 lb Physical Exam HENT: Right Ear: Tympanic membrane and external ear normal. Left Ear: Tympanic membrane and external ear normal. Mouth/Throat: Mouth: Mucous membranes are moist. Neck: Thyroid: No thyroid mass or thyromegaly. Vascular: No carotid bruit. Cardiovascular: Rate and Rhythm: Normal rate and regular rhythm. Heart sounds: No murmur heard. No friction rub. No gallop. Pulmonary: Effort: Pulmonary effort is normal. Breath sounds: Normal breath sounds. Abdominal: General: Bowel sounds are normal. Palpations: Abdomen is soft. Tenderness: There is no abdominal tenderness. Musculoskeletal: Right lower leg: No edema. Left lower leg: No edema. Lymphadenopathy: Cervical: No cervical adenopathy. Skin: General: Skin is warm and dry. Neurological: Mental Status: He is alert and oriented to person, place, and time. Psychiatric: Thought Content: Thought content normal. Results Laboratory Studies A1c is 6.6. ASSESSMENT AND PLAN: Assessment & Plan 1. Type 2 diabetes mellitus with diabetic chronic kidney disease (CMS/HCC) (Primary) His HbA1C is well-controlled at 6.6, which he attributes to the effectiveness of Rybelsus. He is advised to continue his current diabetes management regimen. Blood work will be conducted during his next visit to monitor his condition. - POCT Glycated hemoglobin, total - Hemoglobin a1c with eag; Future - Hemoglobin a1c with eag 2. Chronic kidney disease, stage 3a (HCC) ([facility]) He will be due for labs at next visit. We will continue the current medications and continue to modify all risk factors as we are able to do so. Follow-up labs again at next office visit. - CBC and differential; Future - Comprehensive metabolic panel; Future - Microalbumin / creatinine urine ratio; Future - Urinalysis with microscopic; Future - Phosphorus; Future - PTH, intact; Future - CBC and differential - Comprehensive metabolic panel - Microalbumin / creatinine urine ratio - Urinalysis with microscopic - Phosphorus - PTH, intact 3. Essential hypertension ([facility]) Doing well. Blood pressures have been good. Continue lifestyle modifications. Continue current medication. Call if any problems or if home blood pressures rising. - Microalbumin / creatinine urine ratio; Future - Urinalysis with microscopic; Future - Microalbumin / creatinine urine ratio - Urinalysis with microscopic 4. Pure hypercholesterolemia, unspecified (CMS/HCC) Continue current medication, eat a healthy diet, and exercise regularly. 5. Hyperparathyroidism, unspecified (CMS/HCC) Will continue to monitor. 6. Disease of spinal cord, unspecified ([facility]/HCC) Stable. Continue to monitor. 7. Primary insomnia Stable. Continue to monitor. 8. Primary osteoarthritis involving multiple joints Doing well. OARRS report was reviewed and there were no concerns. Continue Hydrocodone as directed.Will follow-up in 3 months to reassess and review OARRS report again. 9. MEGAN (generalized anxiety disorder) ([facility]) He reports persistent anxiety and currently takes Xanax daily. Duloxetine 30 mg daily has been prescribed to help manage his anxiety. He is advised to continue taking Xanax as needed. The potential benefits and side effects of duloxetine were discussed. If symptoms persist, the dosage may be increased to 60 mg. - DULoxetine (Cymbalta) [address] capsule; Take 1 capsule (30 mg) by mouth Daily Do not crush or chew. Dispense: 30 capsule; Refill: 3 10. Gastroesophageal reflux disease without esophagitis Will stop Omeprazole as he denies heartburn and would like to try stopping this. 11. Renal cyst CT 07/2024 reviewed. Continue to monitor. 12. Monoclonal paraproteinemia Continue to monitor. - Immunoglobulin free LT chains blood; Future - Protein, total and protein electrophoresis with immunofixation; Future - Immunoglobulin free LT chains blood - Protein, total and protein electrophoresis with immunofixation 13. Peripheral neuropathy due to metabolic disorder (CMS/HCC) Stable. Continue to monitor. 14. Vitamin D deficiency Continue supplement. Continue to monitor. - ergocalciferol (Vitamin D-2) 1.25 MG (63029 UT) capsule; Take 1 capsule (1.25 mg) by mouth 1 (one) time per week Dispense: 12 capsule; Refill: 2 - Vitamin D 25 hydroxy Total; Future - Vitamin D 25 hydroxy Total 15. History of kidney stones Doing well currently. Refer to Dr Jacobs. - Ambulatory referral to Urology; Future 16. History of pyelonephritis Refer to Dr Jacobs. - Ambulatory referral to Urology; Future Dr. Hernandez was present in the office at the time of visit today and is supervising patient care. I amfollowing Dr. Hernandez's established plan of care for the above issues. documented in this [facility]12-20-2024 Telephone encounter Note* Telephone Encounter - Jaguar Thibodeaux MA - 10/09/2024 8:05 AM EST Patient called requesting a refill of hydrocodone to be sent to [facility] in [place]. [facility] [id number] Miscellaneous Notes* Telephone Encounter - Jaguar Thibodeaux MA - 10/09/2024 8:05 AM EST Patient called requesting a refill of hydrocodone to be sent to [facility] in [place]. documented in this [facility]11-19-2024 History of Present illness Narrative* SHEBA Ernst - 09/08/2024 2:35 PM EST Weekly outreach completed. Pt is no longer needing daily infusions, stating last one was . He is still not feeling well but doing better than he was when in the hospital. Pt reports he is resting a lot and has had increased back pain from laying around. Admits to increased anxiety with all that has transpired with his health and about the unknown. He has lost some weight, which he is pleased with. He is trying to keep A1c down. Pt has a follow up next month with urology and with Dr. Hernandez. He denies any immediate needs. Does report he needs refill on Fortine soon, as this will be out in a few days. No other concerns. Active listening provided. Pt has a birthday this week. Appreciative of call. * Kimberly Olivier LPN - 09/08/2024 2:35 PM EST Medication is loaded. documented in this encounterSaint [facility] [id number] History of Present illness Narrative* Ammy Moreno RN - 09/03/2024 9:00 AM EST Patient is here for dose 13 Invanz. Discussed with patient that since he did not come in for infusion yesterday, he should receive dose 14 tomorrow. Patient declined to receive last dose as recommended and requested to have PICC line removed today after infusion as previously discussed. PICC line and dressing to right upper arm clean, dry and intact. Line with brisk blood return and flushes with ease. Invanz infused over 30 minutes as ordered and patient tolerated well. PICC dressing and line removed per policy. Site covered with gauze and occlusive dressing and patient was instructed to leave in place for 24 hours. Patient verbalized understanding. Discharged in stable condition to private vehicle. [facility] History of Present illness Narrative* Fara Schofield RN - 09/01/2024 9:00 AM EST Patient presents for Invanz as scheduled. Tolerating infusions without issues. Vitals stable. PICC line blood return brisk, flushed with NS with ease. Dressing clean, dry, and intact. Invanz completed as ordered, PICC flushed with NS, green alcohol cap applied. Discharged in stable condition. documented [facility] this [facility] History of Present illness Narrative* Ammy Moreno RN - 08/31/2024 9:00 AM EST Patient is here for Invanz infusion with PICC dressing change as scheduled. He is tolerating medication well. Denies any issues or side effects. PICC line and dressing to right upper arm clean, dry and intact. Brisk blood return verified and line flushes with ease. Invanz infused over 30 minutes without incident. Patient tolerated it well. Upon completion IV flushed. PICC dressing and cap changedunder sterile procedure. Flushed and saline locked. Green disinfectant cap applied. Patient discharged in stable condition to private vehicle. documented in this [facility]11-08-2024 History of Present illness Narrative* Ammy Moreno RN - 08/28/2024 9:00 AM EST Patient is here for Invanz infusion, but arrived 30 minutes late. Riterated importance of being on time for appointments as it does effect our other patient's appointments. Verbalized understanding. He is tolerating medication well. Denies any issues or side effects. PICC line and dressing to rightupper arm clean, dry and intact. Brisk blood return verified and line flushes with ease. Invanz infused over 30 minutes without incident. Patient tolerated it well. PICC with brisk blood return, flushed and saline locked. Green disinfectant cap applied. Patient discharged in stable condition to private vehicle. [facility]Pro[facility] History of Present illness Narrative* Husam Oliva RN - 08/27/2024 9:00 AM EST Patient here for IV Invanz as scheduled. Tolerating infusions without issues. Vitals stable. PICC line blood return brisk, flushed with NS with ease. Dressing clean, dry, and intact. Invanz completedover 30 minutes as ordered. PICC flushed with NS, green alcohol cap applied. Discharged in stable condition. documented in this [facility]Pro[facility] History of Present illness Narrative* Mleba Maurer RN - 08/26/2024 9:00 AM EST Patient presents for Invanz as scheduled. Tolerating infusions without issues. Vitals stable. PICC line blood return brisk, flushed with NS with ease. Dressing clean, dry, and intact. Invanz completed as ordered, PICC flushed with NS, green alcohol cap applied. Discharged in stable condition. documented in this [facility]Pro[facility] History of Present illness Narrative* Fara Schofield RN - 08/25/2024 9:00 AM EST Patient presents for Invanz as scheduled. Tolerating infusions without issues. Vitals stable. PICC line blood return brisk, flushed with NS with ease. Dressing clean, dry, and intact. Invanz completed as ordered, PICC flushed with NS, green alcohol cap applied. Discharged in stable condition. documented in this [facility]Pro[facility]11-[facility]24 History of Present illness Narrative* Carmen Ospina RN - 08/24/2024 9:00 AM EST The patient is here for Invanz PICC line flushed with brisk blood return noted Invanz admin without complication PICC line dressing is saturated with old blood, site cleaned and dressing change completed Patient tolerated well Patent discharged in stable condition documented in this [facility]Pro[facility] History of Present illness Narrative* Melba Maurer RN - 08/21/2024 9:00 AM EDT Patient presents for Invanz as scheduled. Tolerating infusions without issues. Vitals stable. PICC line blood return brisk, flushed with NS with ease. Dressing clean, dry, and intact. Invanz completed as ordered, PICC flushed with NS, green alcohol cap applied. Discharged in stable condition. documented in this encounterPro[facility]10-31-2024 History of Present illness Narrative* RUPESH Bass - 08/20/2024 10:45 AM EDT Images from the original note were not included. Rod Mathias is a 63 y.o. male presents with chief complaint of Hospital Follow-up (He is currently getting IV Ertapenem daily x 14 days per [facility] in [place]. /He states he just does not feelgood. Fatigue. ) and Weight Gain (Weight gain of 6 pounds since last office visit on 07/22/2024. Hedenies changes in appetite. He denies edema. Bowel movements are normal. ) HPI: HPI History of Present Illness The patient presents for evaluation for hospital follow up due to cystitis with pyelonephritis fromESBL E. coli infection, he was admitted, stayed on ertapenem, had PICC line placed and was discharged with outpatient IV infusion of ertapenem x 14 days he is having done at [facility]. He is currently receiving ertapenem infusions at [facility] for a duration of 2 weeks. He reports experiencing sweats last night but otherwise denies fevers, chills, myalgias. Reports he stilldoes not feel well, his appetite is not back yet, he denies n/v/d, abd pain, flank pain. He was disc harged from the hospital on 08/14/2024. Despite a decreased appetite, he has noticed weight gain. His current weight is 246 pounds and he stands at 5 feet 10.5 inches tall. He occasionally takes multivitamins, but does not consume yogurt or probiotics. I have reviewed and reconciled the history and medication list with the patient today. Flowsheet Row Patient Outreach from 08/17/2024 in [facility] with Mariana Connors RN Hospital Information ED, Hospital or Half-Way Facility Discharge? Hospital Diagnosis Acute pyelonephritis, CKD, diabetes, HTN, hyperlipidemia Discharge Date 08/14/24 Discharged To: Home Setting Discharge [facility] Engagement Admission Date 08/09/24 Medications Discharge medications reviewed and reconciled from hospital? Yes Prescription Comments IV ertapenem 1 gm every 24 hours x 14 days, saccharomyces boulrdi 250 mg BID with meals x 14 days Is the patient taking all medications as directed (includes completed medication regime)? Yes Nursing Interventions Nurse provided patient education Appointments Nursing Interventions Verified appointment date/time/provider [follow up 08/20/2024 at 10:45 am] Self Management Has home health visited the patient within 72 hours of discharge? Not applicable Patient Teaching Does the patient have access to their discharge instructions? Yes Wrap Up Wrap Up Additional Comments Pt presented to ER with n/v chills and dysuria. Urine culture showed E.Coli. CT abdomen/pelvis showed non obstructing nephrolithiasis with no obstructive uropathy. PICC line placed and pt will receive Ertapenem 1 gm IV every 24 hours x 14 days. Pt aware of his follow up a ppt. HISTORIES: PAST MEDICAL HISTORY: Past Medical History: Diagnosis Date Anxiety Chronic kidney disease, stage 3a (HCC) (CMS/HCC) Essential hypertension (CMS/HCC) History of CVA (cerebrovascular accident) History of vertebral fracture Hyperlipidemia (CMS/HCC) Kidney stones MGUS (monoclonal gammopathy of unknown significance) Primary osteoarthritis involving multiple joints Stroke (CMS/HCC) Tinnitus of both ears Type 2 diabetes mellitus with diabetic neuropathy (CMS/HCC) SURGICAL HISTORY: Past Surgical History: Procedure Laterality Date CERVICAL SPINE SURGERY Dr. Henry COLONOSCOPY 2017 CYSTOSCOPY 06/05/2024 1 cm right calculus EXCISION Right 07/2022 shoulder cyst [facility] OTHER SURGICAL HISTORY 05/2022 stent removed from kidney (stone) UMBILICAL HERNIA REPAIR 07/26/2022 UMBILICAL HERNIA REPAIR 07/2022 [facility] URETERAL STENT PLACEMENT Left 05/2022 Dr. heath SOCIAL HISTORY: Social History Tobacco Use Smoking status: Former Current packs/day: 0.00 Types: Cigarettes Start date: 10/21/1979 Quit date: 10/21/1999 Years since quittin.8 Smokeless tobacco: Never Vaping Use Vaping status: Never Used Substance Use Topics Alcohol use: Not Currently Comment: caffeine: coffee 1 cup a day Drug use: Never Depression: Not at risk (02/20/2024) PHQ-2 PHQ-2 Score: 1 FAMILY HISTORY: Family History Problem Relation Name Age of Onset Hypertension Mother Mother No Known Problems Father Diabetes Brother Brother Hypertension Brother Brother No Known Problems Daughter MEDICATIONS: Current Outpatient Medications Medication Instructions ALPRAZolam (XANAX) 0.5 mg, Oral, Every 8 hours PRN amLODIPine (NORVASC) 5 mg, Oral, Daily ASPIRIN 81 MG chewable tablet Every 24 hours atorvastatin (LIPITOR) 40 mg, Oral, Nightly canagliflozin (INVOKANA) 100 mg, Oral, Daily before breakfast ergocalciferol (VITAMIN D-2) 1.25 mg, Oral, Weekly glimepiride (Amaryl) 1 MG tablet take 1 tablet by mouth every morning with meals HYDROcodone-acetaminophen (Fortine) 5-325 MG tablet 1-2 tablets, Oral, Every 4 hours PRN losartan (COZAAR) 100 mg, Oral, Daily omeprazole (PRILOSEC) 20 mg, Oral, Daily, Do not crush or chew. polyethylene glycol (PEG) 3350 (MIRALAX) 17 g, Daily propranolol LA (INDERAL LA) 80 mg, Oral, Daily semaglutide (RYBELSUS) 14 mg, Oral, Daily before breakfast solifenacin (VESICARE) 10 mg, Daily tamsulosin (FLOMAX) 0.4 mg, Daily ALLERGIES: Allergies Allergen Reactions Lisinopril-Hydrochlorothiazide Other Reaction(s): Other foggy-headed , out of sorts Buspar [Buspirone] Other Lower extremity edema Metformin Other Reaction(s): fatigue PHYSICAL EXAM: Visit Vitals BP 122/60 Pulse 89 Ht 5' 10 Wt 242 lb SpO2 96% BMI 34.72 kg/m Smoking Status Former BSA 2.33 m BP Readings from Last 3 Encounters: 08/20/24 122/60 07/22/24 98/60 06/17/24 116/62 Wt Readings from Last 3 Encounters: 08/20/24 242 lb 07/22/24 236 lb 06/17/24 240 lb Physical Exam General Examination: alert, oriented, normal affect, well-appearing, in no acute distress, well developed, well nourished. Head: normocephalic, atraumatic Eyes: sclera non-icteric Throat: clear, symmetrical rise of soft palate and uvula, no erythema or exudate Lymph Nodes: no cervical adenopathy Heart: regular rate and rhythm, S1, S2 normal Lungs: clear to auscultation bilaterally. No wheezes, rales, rhonchi. Abd: soft, non-tender, no HSM, no palpable masses, no guarding or rigidity, no CVA tenderness Extremities: no edema, no cyanosis Psych: alert, oriented, cognitive function intact, cooperative with exam. Results Laboratory Studies E. coli detected in urine culture. White blood cell count returned to normal range. ASSESSMENT AND PLAN: Assessment & Plan 1. E. coli infection. Reviewed discharge summary, as Rod is here for hospital follow up from pyelonephritis. He has been diagnosed with an ESBL positive E. coli infection, which is resistant to many oral antibiotics. He is currently receiving ertapenem infusions through a PICC line. His white blood cell count has normalized, indicating a positive response to the ongoing treatment. He is advised to continue with theertapenem treatment for the full 14-day course. The infusion center's plan for weekend treatments was confirmed and they will supplement him on the other days such that he does not miss dosing. He should maintain his scheduled appointments and follow the prescribed treatment plan. 2. Anxiety. He reports significant anxiety related to his current health condition. It is recommended to monitor his anxiety levels and consider discussing further management options if symptoms persist. 3. Weight gain. He reports weight gain despite a decreased appetite. A balanced diet with 2 to 3 meals per day, including fruits and vegetables, is recommended. Daily intake of multivitamins is suggested during his recovery period. The inclusion of yogurt or probiotics in his diet is also advised to support gut health during antibiotic treatment. [facility]10-[facility] History of Present illness Narrative* Ammy Moreno RN - 08/20/2024 9:00 AM EDT Patient is here for Invanz infusion as scheduled. He is tolerating medication well. Denies any issues or side effects. PICC line and dressing to right upper arm clean, dry and intact. Brisk blood return verified and line flushes with ease. Invanz infused over 30 minutes without incident. Patient tolerated it well. PICC with brisk blood return, flushed and saline locked. Green disinfectant cap applied. Patient discharged in stable condition to private vehicle. documented in this [facility]10-30-2024 History of Present illness Narrative* Carmen Ospina RN - 08/19/2024 9:00 AM EDT The patient is here for Invanz PICC line flushed with brisk blood return noted Invanz admin without complication PICC line dressing is saturated with old blood, site cleaned and dressing change completed Patient tolerated well Patent discharged in stable condition [facility] History of Present illness Narrative* Husam Oliva RN - 08/18/2024 9:00 AM EDT Pt here for IV invanz as scheduled. Picc line dressing to BRENDEN is dry/ clean/ intact. Blood return noted, and flushes with ease. Invanz infused over 30 minutes. Pt tolerated well. Picc line flushed and saline locked per protocol. Green disinfectant cap applied. Dc'd in stable ambulatory condition. documented [facility]10-28-[facility] History of Present illness Narrative* Carmen Ospina RN - 08/17/2024 8:00 AM EDT The patient is here for Invanz He did not show to his weekend appt yesterday He has had previous no shows on weekends as well The patient is aware we will no longer be able to accommodate weekend appointments due to non-compliance PICC line flushed with brisk blood return noted Invanz admin without complication PICC line dressing is saturated with old blood, site cleaned and dressing change completed Patient tolerated well Patent discharged in stable condition documented in this [facility]Pro[facility]10-[facility]24 Discharge summary Author Taqueria Cadena [facility] August 14, 2024 12:08pmNote Date/TimeOct2023 12:08pm[place] [address] Discharge Summary Signed Patient: Rod Mathias MR#: [id number] : 1960 Acct:[id number] Age/Sex: 63 / M Adm Date: 4 Loc: Room: [address] [place] [address]: Taqueria Cadena MD Copies to: MD Ganga Lim MD~ Providers Date of Discharge: 08/14/24 Discharging Provider: Taqueria Cadena Primary Care Provider: Ganga Hernandez Consults: 08/11/24 12:13 Consult to Occupational Therapy Routine Comment: Physician Instructions: Consult to OT for:: Evaluation and Treat Consult to Physical Therapy Routine Comment: Physician Instructions: Consult to PT for:: Evaluation and Treat Discharge Diagnosis (1) Acute pyelonephritis: (2) CKD (chronic kidney disease): (3) Diabetes: (4) Hypertension: (5) Hyperlipidemia: Final Diagnosis Final Discharge Diagnosis: As above. Summary Hospital Course Hospital course: Patient is a 63-year-old male with past medical history of hypertension, hyperlipidemia, CVA, chronic disease stage III and diabetes mellitus type 2. Patient presented to ER with complaint of nausea,vomiting, chills and dysuria. He was recently in the hospital a month ago for ESBL cystitis and was dischargedon ertapenem for 8 days. In the emergency room CT abdomen/pelvis without contrast showed nonobstructing nephrolithiasis with no obstructive uropathy. Bladder wall thickening noted. Given his recent ESBL positive urine culture wasstarted on ertapenem and urine culture did come back E. coliESBL. No growth onblood cultures noted. Initially patient was complaining of flank pain with nausea, vomiting and dysuria. Gradually his condition improved with resolution of leukocytosis and has been afebrile. No growth on blood culture noted. Serial postvoid bladder scans were negative for urinary retention. Plan to discharge home on 2 weeks of IV ertapenem after placement of PICC line given hisrecurrent ESBL cystitis with pyelonephritis. Will recommend to discontinue Invokana to decrease risk of recurrent urinary tract infection. Patient benefitfrom urology evaluation as an outpatient if continues to have urinary tract infection. Condition Condition at Discharge: Stable Status at Discharge Functional status at discharge: independent ambulation Overall status at discharge: patient is progressing back to baseline Time Spent with Patient Time spent providing/coordinating discharge services (# min): 35 Discharge Plan Discharge Plan Patient Disposition: Home Diet: Diabetic, Low-Sodium and Low-Cholesterol Instructions: Know your Meds Prescriptions: New ertapenem 1 gram Recon Soln 1 g IV Q24H 14 Days Qty: 10 0RF Saccharomyces boulardii 250 mg Capsule 250 mg PO BID.WITH.MEALS 14 Days Qty: 28 0RF Continued amlodipine 5 mg tablet 5 mg PO QAM aspirin 81 mg Capsule 81 mg PO QAM hydrocodone-acetaminophen 5-325 mg tablet 1 - 2 tab PO Q4-6H PRN (Reason: Pain) Patient Comments: take 1 tablet by mouth twice a day if needed Rx Instructions: Hip pain propranolol 80 mg Capsule,Extended Release 24hr 80 mg PO DAILY atorvastatin [Lipitor] 40 mg tablet 40 mg PO QPM Rybelsus 7 mg Tablet 14 mg PO DAILY alprazolam 0.5 mg tablet 0.5 mg PO Q8H PRN (Reason: Anxiety) Patient Comments: take 1 tablet by mouth every 8 hours if needed for anxiety buspirone 15 mg tablet 15 mg PO BID Patient Comments: TAKE 1 TABLET BY MOUTH IN THE MORNING AND BEFORE BEDTIME losartan 100 mg tablet 100 mg PO DAILY Patient Comments: take 1 tablet by mouth once daily tamsulosin 0.4 mg Capsule 0.4 mg PO DAILY 30 Days Qty: 30 0RF ergocalciferol (vitamin D2) [Vitamin D2] 1,250 mcg (50,000 unit) capsule 50,000 unit PO QWEEK Discontinued Invokana 100 mg tablet 100 mg PO QAM Patient Comments: take 1 tablet by mouth daily BEFORE THE FIRST MEAL OF THE DAY ertapenem 1 gram Recon Soln 1 g IV Q24H 8 Days Qty: 8 0RF sodium chloride 0.9 % (flush) [Normal Saline Flush] Syringe 10 ml IV DAILY 8 Days Qty: 80 0RF Follow Up: Ganga Hernandez MD [Primary Care Provider] - 08/20/24 10:45 am ([facility], call office to reschedule if needed. ) Exam Physical Exam Vital Signs: Temp Pulse Resp BP Pulse Ox O2 Del Method 98.1 F 73 16 136/87 96 Room Air 08/14/24 08:00 08/14/24 08:00 08/14/24 08:00 08/14/24 08:00 08/14/24 08:00 08/14/24 08:00 Const Orientation: alert, awake and oriented x3 Resp Effort & Inspection: normal respiratory effort and able to speak in complete sentences Auscultation: no rales, no rhonchi and no wheezes Cardio Rate: regular rate Rhythm: regular rhythm Heart Sounds: S1 normal and S2 normal GI Inspection: non-distended Palpation: soft, not firm, no guarding and nontender Neuro General: patient alert, patient awake, patient oriented x3, moves all extremities, no focal motor deficits and CN's II-XI intact bilaterally Diagnostic Studies Completed and Pending Studies Pending studies at discharge: 08/09/24 19:50 Blood Culture Stat Preliminary micro results at discharge 08/09/24 19:50 Blood Culture - Preliminary Blood - Left Antecubital No Growth 4 Days 08/09/24 19:07 Blood Culture - Preliminary Blood - Right Antecubital No Growth 4 Days Labs on day of discharge: 08/14/24 11:10: POC Glucose 129 08/14/24 06:33: POC Glucose 112 08/14/24 06:12: Corrected WBC 9.1, Uncorrected WBC Count 9.1, RBC 4.79, Hgb 14.6, Hct 43.7, MCV 91.3, MCH 30.5, MCHC 33.4, RDW 15.2 H, Plt Count 292, MPV 8.1, Neut % (Auto) 54.6, Lymph % (Auto) 31.6,[place] % (Auto) 11.7, Eos % (Auto) 1.7, Baso % (Auto) 0.4, Nucleat RBC Rel Count 0.1, Neut # (Auto) 5.0, Lymph # (Auto) 2.9, [place] # (Auto) 1.1 H, Eos # (Auto) 0.2, Baso # (Auto) 0.0, PHA Creatinine Clear 59.63, Sodium 139, Potassium 3.9, Chloride 108 H, Carbon Dioxide 22.0, Anion Gap 12.9, BUN 24, Creatinine 1.51 H, Est GFR (CKD-EPI) 50.938, Glucose 107 H, Calcium 9.5 08/13/24 21:00: POC Glucose 127 08/13/24 15:58: POC Glucose 159, POC Glucose Comment Glu2: cleaned meter 08/13/24 11:56: PT 12.6, INR 1.1, APTT 36.1 Documented By: Taqueria Cadena MD 08/14/24 1203 Signed By: <Electronically signed by Taqueria Cadena MD> 08/14/24 1208 [facility] Work Phone: 1(308) 364-999510-25-2024 Hospital Discharge instructions Additional Instructions Please maintain PICC line for IV antibiotic. On Thursday 08/16, please go to [facility] ER entrance. You will need to report to 2nd floor wound care center for antibiotic infusion. Please tell ER staff you are there for IV infusions on 2nd floor and they will direct you where to go. This is for Thursday 08/16 ONLY. After Saturday, please report to the [facility] at 0800 for IV infusions.[facility] Work Phone: [phone]) 222-488610-24-2024 Progress note Author Taqueria Cadena [facility] August 13, 2024 2:52pmNote Date/TimeOct2023 12:09pm[address] [address] Hospitalist Progress Note Signed with Addenda Patient: Rod Mathias MR#: [id number] : 1960 Acct:[id number] Age/Sex: 63 / M Adm Date: 4 Loc: 3T Room: [address] [place] [address] Type: ADM IN Attending Dr: Taqueria Cadena MD Copies to: ~ ADDENDUM1 Patient was personally seen by me on the day of encounter, reviewed his history and performed begum elements of exam and formulated the plan of care and confirmedthe resident/interns note below. Addendum Documented By: Taqueria Cadena MD 08/13/241451 Addendum Signed By: <Electronically signed by Taqueria Cadena MD> 08/13/241451 Date of Service: 08/13/2024 Subjective Subjective Narrative: Rod Mathias is a 63-year-old male who presented with symptoms concerning for UTI. On examinationtoday he states that he is feeling about the same as when he first came to the hospital. He still states that he has decreased symptomatology including decreased spasms at the conclusion of micturition. He does still endorse significant dysuria. He states that he was experiencing nausea over the past day with 1 occurrence of emesis last night. He states thathe is having regular bowel movements and is able to urinate. He states that he has not had much of an appetite and has not been eating verywell. He denies abdominal and chest pain. Exam Physical Exam Vital Signs: Temp Pulse Resp BP Pulse Ox O2 Del Method 97.9 F 65 22 106/69 95 Room Air 08/13/24 11:04 08/13/24 11:04 08/13/24 11:04 08/13/24 11:04 08/13/24 11:04 08/13/24 11:04 Const General: cooperative, no acute distress, in distress and disheveled Nutritional Appearance: well nourished Orientation: alert, awake and oriented x3 HEENT Head: normal to inspection Ears: hearing grossly normal bilaterally Nose: external nose normal Neck Neck: normal visual inspection Resp Effort & Inspection: normal respiratory effort and able to speak in complete sentences Auscultation: clear to auscultation bilaterally GI Inspection: normal to inspection Palpation: soft Auscultation: normal bowel sounds External: tenderness (Left flank) Skin General: no rashes or lesions noted Extrem General: normal to inspection Objective Lab Results 08/13/24 05:49 08/13/24 05:49 Microbiology Results Microbiology 08/09/24 19:50 Blood - Left Antecubital Blood Culture - Preliminary No Growth 3 Days 08/09/24 19:07 Blood - Right Antecubital Blood Culture - Preliminary No Growth 3 Days Meds Allergies and Active Meds Allergies atb Allergy (Uncoded 08/09/24 18:19) bladder problem Active Meds: Active Medications Generic Name Dose Route Start Last Admin Trade Name Freq PRN Reason Stop Dose Admin Acetaminophen 650 mg 08/09/24 22:02 08/12/24 19:51 Acetaminophen 325 Mg Tablet PO 08/09/25 22:01 650 mg Q4H PRN Administration Pain Scale 1 - 3 or fever Hydrocodone Bitart/Acetaminophen 1 - 2 tab 08/09/24 22:04 08/12/24 21:11 Hydrocodone/Acetaminophen 5-325 Mg Tablet PO 2 tab Q4H PRN Administration Pain Alprazolam 0.5 mg 08/09/24 22:04 08/11/24 17:10 Alprazolam 0.5 Mg Tablet PO 02/05/25 22:03 0.5 mg Q8H PRN Administration Anxiety Amlodipine Besylate 5 mg 08/10/24 09:00 08/13/24 09:11 Amlodipine 5 Mg Tablet PO 08/10/25 08:59 5 mg QAM PEEWEE Administration Aspirin 81 mg 08/10/24 09:00 08/13/24 09:11 Aspirin 81 Mg Tablet. PO 08/10/25 08:59 81 mg QAM PEEWEE Administration Atorvastatin Calcium 40 mg 08/10/24 21:00 08/12/24 20:03 Atorvastatin 40 Mg Tablet PO 08/10/25 20:59 Not Given QPM PEEWEE Bisacodyl 5 mg 08/10/24 09:00 08/13/24 09:11 Bisacodyl 5 Mg Tablet. PO 08/10/25 08:59 5 mg BID PEEWEE Administration Buspirone HCl 15 mg 08/10/24 09:00 08/13/24 09:10 Buspirone 15 Mg Tablet PO 08/10/25 08:59 15 mg BID PEEWEE Administration Dextrose 0 gm 08/09/24 22:05 Dextrose 50% In Water 25 Gm/50 Ml Syringe IV-PUSH 08/09/25 22:04 PRN PRN Hypoglycemia Docusate Sodium 100 mg 08/10/24 09:00 08/13/24 09:11 Docusate 100 Mg Capsule PO 08/10/25 08:59 100 mg BID PEEWEE Administration Enoxaparin Sodium 40 mg 08/10/24 10:00 08/13/24 09:13 Enoxaparin 40 Mg/0.4 Ml Syringe SUBCUT 08/10/25 09:59 40 mg DAILY@10 PEEWEE Administration Glucose 0 gm 08/09/24 22:05 Dextrose 40% Gel 15 Gm Tube PO 08/09/25 22:04 PRN PRN Hypoglycemia Ertapenem 1 gm in 100 mls @ 200 mls/hr 08/10/24 20:00 08/12/24 19:51 Invanz IV 200 mls/hr Q24H PEEWEE Administration Insulin Aspart 0 units 08/10/24 08:00 08/13/24 11:50 Insulin Aspart 300 Units/3 Ml Insuln.Pen SUBCUT 08/10/25 07:59 Not Given TID.WM.HS PEEWEE Protocol Losartan Potassium 100 mg 08/10/24 09:00 08/10/24 10:25 Losartan 50 Mg Tablet PO 08/10/25 08:59 Not Given DAILY PEEWEE Pom (Semaglutide [ 14 mg 08/10/24 09:00 08/13/24 09:12 Rybelsus] 14 Mg PO 08/10/25 08:59 14 mg Tablet) DAILY PEEWEE Administration Polyethylene Glycol 17 gm 08/10/24 09:00 08/13/24 09:12 Polyethylene Glycol 3350 17 Gm Powd.Pack PO 08/10/25 08:59 Not Given BID PEEWEE Potassium Chloride 20 meq 08/09/24 22:03 Potassium Chloride Er 20 Meq Tab.Er.Prt PO 08/09/25 22:02 DAILY PRN Hypokalemia Potassium Chloride 40 meq 08/09/24 22:03 Potassium Chloride Er 20 Meq Tab.Er.Prt PO 08/09/25 22:02 DAILY PRN Hypokalemia Promethazine HCl 12.5 mg 08/09/24 22:02 08/12/24 23:43 Promethazine 25 Mg/Ml Vial IM 08/09/25 22:01 12.5 mg Q4H PRN Administration Nausea And Vomiting Propranolol HCl 80 mg 08/10/24 09:00 08/13/24 09:11 Propranolol Sa.24hr 80 Mg Capsule PO 08/10/25 08:59 80 mg DAILY PEEWEE Administration Saccharomyces Boulardii 250 mg 08/10/24 08:00 08/13/24 09:11 Saccharomyces Boulardii 250 Mg Capsule PO 08/10/25 07:59 250 mg BID.WITH.MEALS PEEWEE Administration Sodium Chloride 0 ml 08/09/24 18:17 08/12/24 19:51 Sodium Chloride 0.9 % 10 Ml Syringe IV-PUSH 08/09/25 18:16 10 ml PRN PRN Administration Flush Sodium Chloride 0 ml 08/10/24 06:00 08/13/24 05:10 Sodium Chloride 0.9 % 10 Ml Syringe IV-PUSH 08/10/25 05:59 Not Given QSHIFT PEEWEE Sodium Chloride 0 ml 08/13/24 10:22 Sodium Chloride 0.9 % 10 Ml Syringe IV-PUSH 08/13/25 10:21 PRN PRN Flush Tamsulosin HCl 0.4 mg 08/10/24 09:00 08/13/24 09:10 Tamsulosin 0.4 Mg Cap.Er.24h PO 08/10/25 08:59 0.4 mg DAILY PEEWEE Administration A&P - Hospitalist Assessment/Plan (1) Acute pyelonephritis: (2) CKD (chronic kidney disease): (3) Diabetes: (4) Hypertension: (5) Hyperlipidemia: Plan This patient who presented with symptoms concerning for UTI complicated by acutepyelonephritis withESBL E. coli presents susceptibility to ertapenem. He had hospitalization last month and was discharged with a PICC line and underwent 10 days of ertapenem postdischarge. The bacteria grown during this recurrent instance is same as prior. He is demonstrating gradual resolution of his initial symptoms including spasms and urgency. Acute pyelonephritis ? His current status is likely a continuation from his previous admission with aESBL E. coli. -Blood cultures no growth 2 days ? Urine cultures resulted with ESBL E. coli, sensitivities indicate susceptibility to ertapenem. ? Recheck BMP daily ? Continue to recheck hemoglobin A1c, sliding scale insulin level 3 ? Upon his initial presentation he had demonstrated fulfillment for the diagnostic criteria of sepsis which is subsequently resolved. ? Continue IV ertapenem, dose adjusted by pharmacy for renal clearance ? Use of Invokana to treat type 2 diabetes may be contributing to recurrent UTIsvia induction of glucosuria ?PICC line has been ordered to administer a 2-week course of ertapenem in the outpatient setting ? Discharge will be planned for tomorrow provided there is no worsening of symptoms DVT prophylaxis ? 40 mg Lovenox subcu daily (2) CKD (chronic kidney disease): (3) Diabetes: (4) Hypertension: (5) Hyperlipidemia: Documented By: Taqueria Cadena MD 08/13/24 1206 Signed By: <Electronically signed by Taqueria Cadena MD> 08/13/24 1451 <Electronically signed by DO YOLIS Ewing> 08/13/24 1209 [facility] Work Phone: 1(851) 181-807510-24-2024 [facility] Progress note Author Taqueria Cadena [facility] August 12, 2024 1:03pmNote Date/TimeOct2023 9:44[place] [address] Hospitalist Progress Note Signed with Addenda Patient: Rod Mathias MR#: [id number] : 1960 Acct:[id number] Age/Sex: 63 / M Adm Date: 4 Loc: Room: [address] [place] [address] Type: ADM IN Attending Dr: Taqueria Cadena MD Copies to: ~ ADDENDUM1 Patient was personally seen by me on the day of encounter, reviewed his history and performed begum elements of exam and formulated the plan of care and confirmedthe resident/interns note below. Plan for placement of PICC line tomorrow if continues to improve with 2 weeks ofIV ertapenem given his ESBL pyelonephritis. Addendum Documented By: Taqueria Cadena MD 08/12/24 1303 Addendum Signed By: <Electronically signed by Taqueria Cadena MD> 08/12/24 1303 Date of Service: 08/12/2024 Subjective Subjective Narrative: Rod Mathias is a 63-year-old male who presented with symptoms concerning for UTI. On today's encounter he states that he is feeling the same as when he first arrived in the hospital, but he does endorse reduction in several of his initial symptoms including decreased spasms, decreased need to urinate. He doescontinue to endorse dysuria and left flank pain. He states that the he has beenfeeling sweaty and cold with a general feeling of malaise. He admits to constipation and shortness of breath today. He denies chest pain, blurry vision. Exam Physical Exam Vital Signs: Temp Pulse Resp BP Pulse Ox O2 Del Method 98.2 F 68 20 149/70 H 93 L Room Air 08/12/24 07:21 08/12/24 07:21 08/12/24 07:21 08/12/24 07:21 08/12/24 07:21 08/12/24 07:21 Const General: cooperative, no acute distress and disheveled Nutritional Appearance: well nourished Orientation: alert, awake and oriented x3 HEENT Head: normal to inspection Ears: hearing grossly normal bilaterally Nose: external nose normal Neck Neck: normal visual inspection Resp Effort & Inspection: normal respiratory effort and able to speak in complete sentences Auscultation: clear to auscultation bilaterally GI Inspection: normal to inspection Palpation: soft Auscultation: normal bowel sounds External: tenderness (Left flank) Skin General: no rashes or lesions noted Extrem General: normal to inspection Objective Lab Results 08/12/24 05:52 08/12/24 05:52 Microbiology Results Microbiology 08/09/24 19:50 Blood - Left Antecubital Blood Culture - Preliminary No Growth 2 Days 08/09/24 19:07 Blood - Right Antecubital Blood Culture - Preliminary No Growth 2 Days 08/09/24 18:25 Urine - Voided Urine Culture - Final Escherichia coli (ESBL) Meds Allergies and Active Meds Allergies atb Allergy (Uncoded 08/09/24 18:19) bladder problem Active Meds: Active Medications Generic Name Dose Route Start Last Admin Trade Name Freq PRN Reason Stop Dose Admin Acetaminophen 650 mg 08/09/24 22:02 Acetaminophen 325 Mg Tablet PO 08/09/25 22:01 Q4H PRN Pain Scale 1 - 3 or fever Hydrocodone Bitart/Acetaminophen 1 - 2 tab 08/09/24 22:04 08/12/24 04:09 Hydrocodone/Acetaminophen 5-325 Mg Tablet PO 2 tab Q4H PRN Administration Pain Alprazolam 0.5 mg 08/09/24 22:04 08/11/24 17:10 Alprazolam 0.5 Mg Tablet PO 02/05/25 22:03 0.5 mg Q8H PRN Administration Anxiety Amlodipine Besylate 5 mg 08/10/24 09:00 08/11/24 08:27 Amlodipine 5 Mg Tablet PO 08/10/25 08:59 5 mg QAM PEEWEE Administration Aspirin 81 mg 08/10/24 09:00 08/11/24 08:27 Aspirin 81 Mg Tablet. PO 08/10/25 08:59 81 mg QAM PEEWEE Administration Atorvastatin Calcium 40 mg 08/10/24 21:00 08/11/24 20:20 Atorvastatin 40 Mg Tablet PO 08/10/25 20:59 40 mg QPM PEEWEE Administration Bisacodyl 5 mg 08/10/24 09:00 08/11/24 20:20 Bisacodyl 5 Mg Tablet. PO 08/10/25 08:59 5 mg BID PEEWEE Administration Buspirone HCl 15 mg 08/10/24 09:00 08/11/24 21:17 Buspirone 15 Mg Tablet PO 08/10/25 08:59 Not Given BID PEEWEE Dextrose 0 gm 08/09/24 22:05 Dextrose 50% In Water 25 Gm/50 Ml Syringe IV-PUSH 08/09/25 22:04 PRN PRN Hypoglycemia Docusate Sodium 100 mg 08/10/24 09:00 08/11/24 20:21 Docusate 100 Mg Capsule PO 08/10/25 08:59 100 mg BID PEEWEE Administration Enoxaparin Sodium 40 mg 08/10/24 10:00 08/11/24 09:26 Enoxaparin 40 Mg/0.4 Ml Syringe SUBCUT 08/10/25 09:59 40 mg DAILY@10 PEEWEE Administration Glucose 0 gm 08/09/24 22:05 Dextrose 40% Gel 15 Gm Tube PO 08/09/25 22:04 PRN PRN Hypoglycemia Ertapenem 1 gm in 100 mls @ 200 mls/hr 08/10/24 20:00 08/11/24 20:20 Invanz IV 200 mls/hr Q24H PEEWEE Administration Insulin Aspart 0 units 08/10/24 08:00 08/11/24 21:17 Insulin Aspart 300 Units/3 Ml Insuln.Pen SUBCUT 08/10/25 07:59 Not Given TID.WM.HS PEEWEE Protocol Losartan Potassium 100 mg 08/10/24 09:00 08/10/24 10:25 Losartan 50 Mg Tablet PO 08/10/25 08:59 Not Given DAILY PEEWEE Pom (Semaglutide [ 14 mg 08/10/24 09:00 08/11/24 11:53 Rybelsus] 7 Mg PO 08/10/25 08:59 Not Given Tablet) DAILY PEEWEE Polyethylene Glycol 17 gm 08/10/24 09:00 08/11/24 21:17 Polyethylene Glycol 3350 17 Gm Powd.Pack PO 08/10/25 08:59 Not Given BID PEEWEE Potassium Chloride 20 meq 08/09/24 22:03 Potassium Chloride Er 20 Meq Tab.Er.Prt PO 08/09/25 22:02 DAILY PRN Hypokalemia Potassium Chloride 40 meq 08/09/24 22:03 Potassium Chloride Er 20 Meq Tab.Er.Prt PO 08/09/25 22:02 DAILY PRN Hypokalemia Promethazine HCl 12.5 mg 08/09/24 22:02 08/12/24 01:35 Promethazine 25 Mg/Ml Vial IM 08/09/25 22:01 12.5 mg Q4H PRN Administration Nausea And Vomiting Propranolol HCl 80 mg 08/10/24 09:00 08/11/24 08:27 Propranolol Sa.24hr 80 Mg Capsule PO 08/10/25 08:59 80 mg DAILY PEEWEE Administration Saccharomyces Boulardii 250 mg 08/10/24 08:00 08/11/24 17:04 Saccharomyces Boulardii 250 Mg Capsule PO 08/10/25 07:59 250 mg BID.WITH.MEALS PEEWEE Administration Sodium Chloride 0 ml 08/09/24 18:17 Sodium Chloride 0.9 % 10 Ml Syringe IV-PUSH 08/09/25 18:16 PRN PRN Flush Sodium Chloride 0 ml 08/10/24 06:00 08/12/24 06:49 Sodium Chloride 0.9 % 10 Ml Syringe IV-PUSH 08/10/25 05:59 10 ml QSHIFT PEEWEE Administration Tamsulosin HCl 0.4 mg 08/10/24 09:00 08/11/24 08:27 Tamsulosin 0.4 Mg Cap.Er.24h PO 08/10/25 08:59 0.4 mg DAILY PEEWEE Administration A&P - Hospitalist Assessment/Plan (1) Acute pyelonephritis: (2) CKD (chronic kidney disease): (3) Diabetes: (4) Hypertension: (5) Hyperlipidemia: Plan This patient who presented with symptoms concerning for UTI complicated by acutepyelonephritis withESBL E. coli presents susceptibility to ertapenem. He had hospitalization last month and was discharged with a PICC line and underwent 10 days of ertapenem postdischarge. The bacteria grown during this recurrent instance is same as prior. He is demonstrating gradual resolution of his initial symptoms including spasms and urgency. Acute pyelonephritis ? His current status is likely a continuation from his previous admission with aESBL E. coli. -Blood cultures no growth 2 days ? Urine cultures resulted with ESBL E. coli, sensitivities indicate susceptibility to ertapenem. ? Recheck BMP daily ? Continue to recheck hemoglobin A1c, sliding scale insulin level 3 ? Upon his initial presentation he had demonstrated fulfillment for the diagnostic criteria of sepsis which is subsequently resolved. ? Continue IV ertapenem, dose adjusted by pharmacy for renal clearance ? Use of Invokana to treat type 2 diabetes may be contributing to recurrent UTIsvia induction of glucosuria ? Order bladder scan to assess for proper emptying DVT prophylaxis ? 40 mg Lovenox subcu daily (2) CKD (chronic kidney disease): (3) Diabetes: (4) Hypertension: (5) Hyperlipidemia: Documented By: Taqueria Cadena MD 08/12/24 0932 Signed By: <Electronically signed by Taqueria Cadena MD> 08/12/24 1303 <Electronically signed by DO YOLIS Ewing> 08/12/24 0948 [facility] Work Phone: 1(570) 850-822310-22-2024 Progress note Author Taqueria Cadena [facility] August 11, 2024 1:01pmNote Date/TimeOct2023 11:33[place] [address] Hospitalist Progress Note Signed with Addenda Patient: Rod Mathias MR#: [id number] : 1960 Acct:[id number] Age/Sex: 63 / M Adm Date: 4 Loc: Room: [address] [place] [address] Type: ADM IN Attending Dr: Taqueria Cadena MD Copies to: ~ ADDENDUM1 Patient was personally seen by me on the day of encounter, reviewed his history and performed begum elements of exam and formulated the plan of care and confirmedthe resident/interns note below. Addendum Documented By: Taqueria Cadena MD 08/11/24 1301 Addendum Signed By: <Electronically signed by Taqueria Cadena MD> 08/11/24 1301 Date of Service: 08/11/2024 Subjective Subjective Narrative: Rod Mathias is a 63-year-old male who presented with symptoms concerning for UTI. On today's encounter the patient states that he is feeling worse than yesterday. He states that his UTI symptoms have decreased but that he is now experiencing a headache and increased malaise. He states that he was having some abdominal pain due to the emesis he experienced 2 days ago. He states thathe is still experiencing dysuria and describes a sensation of pain in his elbowsand knees upon completion of micturition. He states that this sensation is similar to when he has had kidney stones and stents in the past. The patient states that he slept well last night but continues to feel exhausted. Exam Physical Exam Vital Signs: Temp Pulse Resp BP Pulse Ox O2 Del Method 97.8 F 87 16 136/84 94 L Room Air 08/11/24 08:00 08/11/24 08:00 08/11/24 08:00 08/11/24 08:00 08/11/24 08:00 08/11/24 08:00 Const General: cooperative, in distress and disheveled Nutritional Appearance: well nourished Orientation: alert, awake and oriented x3 HEENT Head: normal to inspection Ears: hearing grossly normal bilaterally Nose: external nose normal Neck Neck: normal visual inspection Resp Effort & Inspection: normal respiratory effort and able to speak in complete sentences Auscultation: clear to auscultation bilaterally GI Inspection: normal to inspection Palpation: soft Auscultation: normal bowel sounds External: tenderness (Left flank) Skin General: no rashes or lesions noted Extrem General: normal to inspection Objective Lab Results 08/11/24 06:27 08/11/24 06:27 Microbiology Results Microbiology 08/09/24 18:25 Urine - Voided Urine Culture - Final Escherichia coli (ESBL) 08/09/24 19:50 Blood - Left Antecubital Blood Culture - Preliminary No Growth 1 Day 08/09/24 19:07 Blood - Right Antecubital Blood Culture - Preliminary No Growth 1 Day Meds Allergies and Active Meds Allergies atb Allergy (Uncoded 08/09/24 18:19) bladder problem Active Meds: Active Medications Generic Name Dose Route Start Last Admin Trade Name Freq PRN Reason Stop Dose Admin Acetaminophen 650 mg 08/09/24 22:02 Acetaminophen 325 Mg Tablet PO 08/09/25 22:01 Q4H PRN Pain Scale 1 - 3 or fever Hydrocodone Bitart/Acetaminophen 1 - 2 tab 08/09/24 22:04 08/10/24 18:29 Hydrocodone/Acetaminophen 5-325 Mg Tablet PO 2 tab Q4H PRN Administration Pain Alprazolam 0.5 mg 08/09/24 22:04 08/10/24 18:29 Alprazolam 0.5 Mg Tablet PO 02/05/25 22:03 0.5 mg Q8H PRN Administration Anxiety Amlodipine Besylate 5 mg 08/10/24 09:00 08/11/24 08:27 Amlodipine 5 Mg Tablet PO 08/10/25 08:59 5 mg QAM PEEWEE Administration Aspirin 81 mg 08/10/24 09:00 08/11/24 08:27 Aspirin 81 Mg Tablet. PO 08/10/25 08:59 81 mg QAM PEEWEE Administration Atorvastatin Calcium 40 mg 08/10/24 21:00 08/10/24 20:50 Atorvastatin 40 Mg Tablet PO 08/10/25 20:59 40 mg QPM PEEWEE Administration Bisacodyl 5 mg 08/10/24 09:00 08/11/24 08:27 Bisacodyl 5 Mg Tablet. PO 08/10/25 08:59 5 mg BID PEEWEE Administration Buspirone HCl 15 mg 08/10/24 09:00 08/11/24 08:27 Buspirone 15 Mg Tablet PO 08/10/25 08:59 15 mg BID PEEWEE Administration Dextrose 0 gm 08/09/24 22:05 Dextrose 50% In Water 25 Gm/50 Ml Syringe IV-PUSH 08/09/25 22:04 PRN PRN Hypoglycemia Docusate Sodium 100 mg 08/10/24 09:00 08/11/24 08:27 Docusate 100 Mg Capsule PO 08/10/25 08:59 100 mg BID PEEWEE Administration Enoxaparin Sodium 40 mg 08/10/24 10:00 08/11/24 09:26 Enoxaparin 40 Mg/0.4 Ml Syringe SUBCUT 08/10/25 09:59 40 mg DAILY@10 PEEWEE Administration Glucose 0 gm 08/09/24 22:05 Dextrose 40% Gel 15 Gm Tube PO 08/09/25 22:04 PRN PRN Hypoglycemia Ertapenem 1 gm in 100 mls @ 200 mls/hr 08/10/24 20:00 08/10/24 20:26 Invanz IV 200 mls/hr Q24H PEEWEE Administration Insulin Aspart 0 units 08/10/24 08:00 08/11/24 08:33 Insulin Aspart 300 Units/3 Ml Insuln.Pen SUBCUT 08/10/25 07:59 Not Given TID.WM.HS PEEWEE Protocol Losartan Potassium 100 mg 08/10/24 09:00 08/10/24 10:25 Losartan 50 Mg Tablet PO 08/10/25 08:59 Not Given DAILY PEEWEE Pom (Semaglutide [ 14 mg 08/10/24 09:00 08/10/24 10:26 Rybelsus] 7 Mg PO 08/10/25 08:59 Not Given Tablet) DAILY PEEWEE Polyethylene Glycol 17 gm 08/10/24 09:00 08/11/24 08:27 Polyethylene Glycol 3350 17 Gm Powd.Pack PO 08/10/25 08:59 17 gm BID PEEWEE Administration Potassium Chloride 20 meq 08/09/24 22:03 Potassium Chloride Er 20 Meq Tab.Er.Prt PO 08/09/25 22:02 DAILY PRN Hypokalemia Potassium Chloride 40 meq 08/09/24 22:03 Potassium Chloride Er 20 Meq Tab.Er.Prt PO 08/09/25 22:02 DAILY PRN Hypokalemia Promethazine HCl 12.5 mg 08/09/24 22:02 08/11/24 09:27 Promethazine 25 Mg/Ml Vial IM 08/09/25 22:01 12.5 mg Q4H PRN Administration Nausea And Vomiting Propranolol HCl 80 mg 08/10/24 09:00 08/11/24 08:27 Propranolol Sa.24hr 80 Mg Capsule PO 08/10/25 08:59 80 mg DAILY PEEWEE Administration Saccharomyces Boulardii 250 mg 08/10/24 08:00 08/11/24 08:27 Saccharomyces Boulardii 250 Mg Capsule PO 08/10/25 07:59 250 mg BID.WITH.MEALS PEEWEE Administration Sodium Chloride 0 ml 08/09/24 18:17 Sodium Chloride 0.9 % 10 Ml Syringe IV-PUSH 08/09/25 18:16 PRN PRN Flush Sodium Chloride 0 ml 08/10/24 06:00 08/11/24 06:17 Sodium Chloride 0.9 % 10 Ml Syringe IV-PUSH 08/10/25 05:59 10 ml QSHIFT EPEWEE Administration Tamsulosin HCl 0.4 mg 08/10/24 09:00 08/11/24 08:27 Tamsulosin 0.4 Mg Cap.Er.24h PO 08/10/25 08:59 0.4 mg DAILY PEEWEE Administration A&P - Hospitalist Assessment/Plan (1) Acute pyelonephritis: (2) CKD (chronic kidney disease): (3) Diabetes: (4) Hypertension: (5) Hyperlipidemia: Plan Acute pyelonephritis ? His current status is likely a continuation from his previous admission with aESBL E. coli. - Awaiting blood culture result ? Urine cultures resulted with ESBL E. coli ? Recheck BMP daily ? Continue to recheck hemoglobin A1c, sliding scale insulin level 3 ? Upon his initial presentation he had demonstrated fulfillment for the diagnostic criteria of sepsis which is subsequently resolved. ? Continue IV ertapenem, dose adjusted by pharmacy for renal clearance ? Use of Invokana to treat type 2 diabetes may be contributing to recurrent UTIsvia induction of glucosuria ? Order bladder scan to assess for proper emptying DVT prophylaxis ? 40 mg Lovenox subcu daily (2) CKD (chronic kidney disease): (3) Diabetes: (4) Hypertension: (5) Hyperlipidemia: Documented By: Taqueria Cadena MD 08/11/24 1126 Signed By: <Electronically signed by Taqueria Cadena MD> 08/11/24 1259 <Electronically signed by DO YOLIS Ewing> 08/11/24 1133 [facility] Work Phone: 1(197) 640-762110-21-2024 Progress note Author Taqueria Cadena [facility] August 10, 2024 2:49pmNote Date/TimeOct2023 11:19[place] [address] Internal Med Progress Note Signed with Addenda Patient: Rod Mathias MR#: [id number] : 1960 Acct:[id number] Age/Sex: 63 / M Adm Date: 4 Loc: Room: [address] [place] [address] Type: ADM IN Attending Dr: Taqueria Cadena MD Copies to: ~ ADDENDUM1 Patient was personally seen by me on the day of encounter, reviewed his history and performed begum elements of exam and formulated the plan of care and confirmedthe resident/interns note below. Addendum Documented By: Taqueria Cadena MD 08/10/241446 Addendum Signed By: <Electronically signed by Taqueria Cadena MD> 08/10/241446 Date of Service: 08/10/2024 Internal Medicine Subjective Subjective HPI: Rod Mathias 63-year-old male who presented with symptoms concerning for a UTI. Previously, he had been admitted to the hospital in June to address aUTI which occurred following stent removal which did not placed due to recurrentkidney stones. The patient states that the symptoms including left- sided flank pain and dysuria have not gone away since that initial encounter in June despite having him placed on 10 days of outpatient ertapenem which had been administered through PICC lineafter discharge. Cultures on the previous visit demonstrated ESBL E. coli. The patient states that despite receiving pain medications he still rates his pain as an 8 out of 10 with 10 being the worst. The patient states that he has struggled with recurrent kidney stones since the age of 13 and has had UTIs in the past but denies any of the severity of his current condition. Exam Physical Exam Vital Signs: Temp Pulse Resp BP Pulse Ox O2 Del Method 98.3 F 88 18 97/59 L 93 L Room Air 08/10/24 08:00 08/10/24 08:00 08/10/24 08:00 08/10/24 08:00 08/10/24 08:00 08/10/24 08:00 Const General: cooperative, in distress and disheveled Nutritional Appearance: well nourished Orientation: alert, awake and oriented x3 HEENT Head: normal to inspection Ears: hearing grossly normal bilaterally Nose: external nose normal Neck Neck: normal visual inspection Resp Effort & Inspection: normal respiratory effort and able to speak in complete sentences Auscultation: clear to auscultation bilaterally GI Inspection: normal to inspection Palpation: soft Auscultation: normal bowel sounds External: tenderness (Left flank) Skin General: no rashes or lesions noted Extrem General: normal to inspection Internal Med Results Labs Labs: 08/10/24 06:20: POC Glucose 138 08/10/24 06:03: Corrected WBC 15.3 H, Uncorrected WBC Count 15.3 H, RBC 4.32, Hgb 13.1, Hct 39.6, MCV 91.8, MCH 30.2, MCHC 32.9, RDW 15.5 H, Plt Count 194, MPV 8.5, Neut % (Auto) 83.9, Lymph % (Auto)5.0, [place] % (Auto) 10.9, Eos % (Auto) 0.0, Baso % (Auto) 0.2, Nucleat RBC Rel Count 0.0, Neut # (Auto) 12.8 H, Lymph # (Auto) 0.8 L, [place] # (Auto) 1.7 H, Eos # (Auto) 0.0, Baso # (Auto) 0.0, PHA Creatinine Clear 52.34, Sodium 138, Potassium 4.6, Chloride 108 H, Carbon Dioxide 21.1, Anion Gap 13.5, BUN 24, Creatinine 1.73 H, Est GFR (CKD-EPI) 43.266, Glucose 154 H, Estimat Average Glucose 148, Hemoglobin A1c 6.8 H, Calcium 9.1 08/09/24 23:02: Lactic Acid 2.1 H* 08/09/24 19:07: Corrected WBC 14.1 H, Uncorrected WBC Count 14.1 H, RBC 4.73, Hgb 14.4, Hct 43.4, MCV 91.7, MCH 30.4, MCHC 33.1, RDW 15.5 H, Plt Count 219, MPV 8.4, Neut % (Auto) 80.3, Lymph % (Auto)9.6, [place] % (Auto) 9.6, Eos % (Auto)0.3, Baso % (Auto) 0.2, Nucleat RBC Rel Count 0.1, Neut # (Auto) 11.3 H, Lymph #(Auto) 1.4, [place] # (Auto) 1.3 H, Eos # (Auto) 0.0, Baso # (Auto) 0.0, Monocyte DistWidth 17.70, PHA Creatinine Clear 54.75, Sodium 137, Potassium 4.3, Chloride 107, Carbon Dioxide 18.3 L, Anion Gap 16.0 H, BUN 25, Creatinine 1.64 H, Est GFR (CKD-EPI) 46.132, Glucose 189 H, Lactic Acid 2.1 H*, Calcium 9.8, Total Bilirubin 0.6, AST 15, ALT 16, Alkaline Phosphatase 134 H, Total Protein 8.0, Albumin 4.3, Globulin 3.7, Albumin/Globulin Ratio 1.2 08/09/24 18:25: Urine Color Light-yellow, Urine Appearance Cloudy A, Urine pH 5.5, Ur Specific [place] 1.019, Urine Protein 20 H, Urine Glucose (UA) >=1000 H,Urine Ketones Negative, Urine Occult Blood 1+ H, Urine Nitrite Negative, Urine Bilirubin Negative, Urine Urobilinogen Normal, Ur LeukocyteEsterase 4+ H, UrineRBC 5-9 H, Urine WBC Innumerable H, Urine WBC Clumps Many H, Ur Squamous Epith Cells 1-2, Urine Bacteria 1+ H, Hyaline Casts None, Urine Mucus Rare Microbiology Microbiology: 08/09/24 18:25 Urine Culture - Pending Urine - Voided 08/09/24 19:50 Blood Culture - Pending Blood - Left Antecubital 08/09/24 19:07 Blood Culture - Pending Blood - Right Antecubital Internal Med A&P (1) Acute pyelonephritis: Plan: Acute pyelonephritis ? His current status is likely a continuation from his previous admission with aESBL E. coli. - Awaiting blood and urine cultures ? Recheck BMP daily ? Continue to recheck hemoglobin A1c, sliding scale insulin level 3 ? Upon his initial presentation he had demonstrated fulfillment for the diagnostic criteria of sepsis which is subsequently resolved. ? Continue IV ertapenem, dose adjusted by pharmacy for renal clearance ? Use of Invokana to treat type 2 diabetes may be contributing to recurrent UTIsvia induction of glucosuria ? Order bladder scan to assess for proper emptying ? Consult to infectious disease to assess for alternative treatment if necessary DVT prophylaxis ? 40 mg Lovenox subcu daily (2) CKD (chronic kidney disease): (3) Diabetes: (4) Hypertension: (5) Hyperlipidemia: Documented By: Taqueria Cadena MD 08/10/24 1057 Signed By: <Electronically signed by Taqueria Cadena MD> 08/10/24 1446 <Electronically signed by DO YOLIS Ewing> 08/10/24 1110 [facility] Work Phone: 1(696) 963-512910-21-2024 History and physical note Author Amrik Rojas [facility] August 09, 2024 10:20pmNote Date/TimeOct2023 10:20[place] [address] Hospitalist H&P Signed Patient: Rod Mathias MR#: [id number] : 1960 Acct:[id number] Age/Sex: 63 / M Adm Date: 4 Loc: Room: [address] [place] [address] Type: ADM IN Attending Dr: Amrik Rojas DO Copies to: DO Ganga Young MD~ HPI DATE OF EXAMINATION: 08/09/24 CHIEF COMPLAINT: Painful urination, vomiting, chills, T 102 dF. HISTORY OF PRESENT ILLNESS: This is a 63 year-old man who came to the emergency room with relatively sudden onset of infectioussymptoms. Today he began having vomiting. He had extremelypainful and frequent urination. He was having severe shaking chills. When he arrived in emergency room he was tachycardic with heart rate of about 120. His blood pressure was elevated at 152/96. His white blood count is elevated at 14.1. Bladder scan shows a postvoid residual which is very low at 119. His bicarb is a little bit low at 18.3. His serum creatinine is at his baseline forhim at 1.64. His lactic acid is elevated at 2.1. Urinalysis shows evidence of infection. By the way the patient is on Invokana. He also was on Flomax that was started by hospitalist on his last hospitalization, which was 07/09 to 07/14. At that time he had ESBL E. coli UTI and a midline was placed that he could finish 10 days of ertapenem at home. That hospitalization was described as pyelonephritis and the patient had recently had removal of a ureterstent after kidney stone treatment. Today when I go to see the patient emergency room he complains of left-sided flank pain. He believes that he is having a kidney stone. I immediately ordered a stat noncontrast CT scan of the abdomen pelvis stone protocol while inthe emergency room. He says that he is not able to get into see urology until the month of September. He asked for medicine to help him stop having so much vomiting. He then picked it up right to the side of the bed to try and void urine. Review of Systems Review of Systems Review of systems: 10 systems are reviewed and are negative except as mentioned elsewhere in the documentation. [facility] Medical History (Updated 08/09/24 @ 22:18 by Amrik Rojas DO) Arthritis hips Problem List clean-up per request of Phys. EHR Cmte Back pain was told possible fracture vertebra Problem List clean-up per request of Phys. EHR Cmte Restless legs left leg Numbness and tingling of leg left leg CKD (chronic kidney disease) stage 3 Problem List clean-up per request of Phys. 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 EHR Cmte Hx of renal calculi Hyperlipidemia Hypertension Surgical History History of renal stent H/O colonoscopy H/O hernia repair umbilical Hx of cystoscopy stone basket Problem List clean-up per request of Phys. EHR Cmte Hx of cervical spine surgery anterior Problem List clean-up per request of Phys. EHR Cmte Hx of lithotripsy Family History Brother Diabetes Mother Hypertension Father Medical history unknown Social History Smoking Status: Former smoker Tobacco Type: cigarettes Substance Use Type: None Substance Abuse Comment: occasional social alcohol use Meds Medications and Allergies Allergies atb Allergy (Uncoded 08/09/24 18:19) bladder problem Home Medications amlodipine 5 mg tablet 5 mg PO QAM htn 02/22/21 [History Confirmed 08/09/24] canagliflozin 100 mg tablet (Invokana) 100 mg PO QAM DM 05/07/22 [History Confirmed 08/09/24] atorvastatin 40 mg tablet (Lipitor) 40 mg PO QPM hyperlipidemia 07/12/22 [History Confirmed 08/09/24] aspirin 81 mg capsule 81 mg PO QAM 10/02/22 [History Confirmed 08/09/24] hydrocodone 5 mg-acetaminophen 325 mg tablet 1 - 2 tab PO Q4-6H PRN Pain 10/02/22 [History Confirmed 08/09/24] semaglutide 7 mg tablet (Rybelsus) 14 mg PO DAILY DM 02/05/23 [History Confirmed 07/09/24] alprazolam 0.5 mg tablet 0.5 mg PO Q8H PRN Anxiety 06/07/23 [History Confirmed 08/09/24] buspirone 15 mg tablet 15 mg PO BID 06/07/23 [History Confirmed 08/09/24] losartan 100 mg tablet 100 mg PO DAILY 06/07/23 [History Confirmed 08/09/24] propranolol 80 mg capsule,24 hr,extended release 80 mg PO DAILY 07/24/23 [History Confirmed 07/09/24] ertapenem 1 gram solution for injection 1 g IV Q24H 8 days #8 ea 07/13/24 [Rx] sodium chloride 0.9 % (flush) (Normal Saline Flush 0.9 % injection syringe) 10 ml IV DAILY 8 days #80 mL 07/13/24 [Rx] tamsulosin 0.4 mg capsule 0.4 mg PO DAILY 30 days #30 caps 07/13/24 [Rx Confirmed 08/09/24] Allergy/Medication Comments: Please note that the home medication list may contain elements that are not accurate. This list of home medications will be updated during the hospital stay as more information becomes available. Exam Physical Exam Vital Signs: Temp Pulse Resp BP Pulse Ox O2 Del Method 99.8 F H 102 H 18 153/81 H 97 Room Air 08/09/24 20:05 08/09/24 20:30 08/09/24 20:30 08/09/24 20:30 08/09/24 20:30 08/09/24 20:30 Narrative: GEN: Awake, alert, oriented x 3. Head: Normal Cephalic, Atraumatic. Eyes: Conjunctiva and sclera clear bilaterally. Nose: External nose and nares normal bilaterally. Mouth: Lips and tongue normal. Neck: No JVD. No thyromegaly. No lymphadenopathy. Lungs: Clear to auscultation bilaterally, no wheezing, no crackles. Heart: Mildly tachycardic on the monitor but with a regular rhythm, no murmurs,rubs, or gallops. Abdomen: Patient complains of pain in the left costovertebral angle and left flank. I cannot reproduce any of this. Abdomen is protuberant. Bowel sounds are mildly hypoactive. No acute peritoneal signs. Extremities: No swelling or cords in the calves bilaterally, no edema in the ankles bilaterally. Skin: No systemic rashes or lesions. Psychiatric: Frustrated. Abrupt. Not cooperative with the examination of the interview. Neuro: Moves all 4 extremities well so I do not see any focal or lateralizing deficits. Results - Hospitalist H&P Lab Results Labs: Laboratory Last Values Corrected WBC 14.1 X10E3/uL (4.1-10.5) H 08/09/24 19:07 Uncorrected WBC Count 14.1 x10E3/uL (4.1-10.5) H 08/09/24 19:07 RBC 4.73 X10E6/uL (3.90-5.60) 08/09/24 19:07 Hgb 14.4 g/dL (13.0-17.0) 08/09/24 19:07 Hct 43.4 % (38.8-50.0) 08/09/24 19:07 MCV 91.7 fl (83.5-101) 08/09/24 19:07 MCH 30.4 pg (27.5-35.2) 08/09/24 19:07 MCHC 33.1 g/dL (32.5-35.6) 08/09/24 19:07 RDW 15.5 % (12.0-14.8) H 08/09/24 19:07 Plt Count 219 x10E3/uL (150-450) 08/09/24 19:07 MPV 8.4 fl (6.6-10.1) 08/09/24 19:07 Neut % (Auto) 80.3 % (.) 08/09/24 19:07 Lymph % (Auto) 9.6 % (.) 08/09/24 19:07 [place] % (Auto) 9.6 % (.) 08/09/24 19:07 Eos % (Auto) 0.3 % (.) 08/09/24 19:07 Baso % (Auto) 0.2 % (.) 08/09/24 19:07 Nucleat RBC Rel Count 0.1 /100 WBC (0-0.5) 08/09/24 19:07 Neut # (Auto) 11.3 x10E3/uL (1.8-7.7) H 08/09/24 19:07 Lymph # (Auto) 1.4 x10E3/uL (1.00-4.8) 08/09/24 19:07 [place] # (Auto) 1.3 x10E3/uL (0.0-0.8) H 08/09/24 19:07 Eos # (Auto) 0.0 x10E3/uL (0.0-0.45) 08/09/24 19:07 Baso # (Auto) 0.0 x10E3/uL (0.0-0.2) 08/09/24 19:07 Monocyte Dist Width 17.70 % (0.00-20.00) 08/09/24 19:07 PHA Creatinine Clear 54.75 08/09/24 19:07 Sodium 137 mmol/L (136-145) 08/09/24 19:07 Potassium 4.3 mmol/L (3.5-5.1) 08/09/24 19:07 Chloride 107 mmol/L (98-107) 08/09/24 19:07 Carbon Dioxide 18.3 mmol/L (21.0-31.0) L 08/09/24 19:07 Anion Gap 16.0 mEq/L (6.0-15.0) H 08/09/24 19:07 BUN 25 mg/dL (7-25) 08/09/24 19:07 Creatinine 1.64 mg/dL (0.70-1.30) H 08/09/24 19:07 Est GFR (CKD-EPI) 46.132 mL/Min 08/09/24 19:07 Glucose 189 mg/dL (70-100) H 08/09/24 19:07 Lactic Acid 2.1 mmol/L (0.5-2.2) H* 08/09/24 19:07 Calcium 9.8 mg/dL (8.6-10.3) 08/09/24 19:07 Total Bilirubin 0.6 mg/dl (0.3-1.0) 08/09/24 19:07 AST 15 U/L (13-39) 08/09/24 19:07 ALT 16 U/L (7-52) 08/09/24 19:07 Alkaline Phosphatase 134 U/L (34-104) H 08/09/24 19:07 Total Protein 8.0 gm/dL (6.4-8.9) 08/09/24 19:07 Albumin 4.3 gm/dL (3.5-5.7) 08/09/24 19:07 Globulin 3.7 gm/dL 08/09/24 19:07 Albumin/Globulin Ratio 1.2 08/09/24 19:07 Urine Color Light-yellow (Yellow) 08/09/24 18:25 Urine Appearance Cloudy (Clear) A 08/09/24 18:25 Urine pH 5.5 (5.0-9.0) 08/09/24 18:25 Ur Specific [place] 1.019 (1.001-1.030) 08/09/24 18:25 Urine Protein 20 mg/dL (Negative) H 08/09/24 18:25 Urine Glucose (UA) >=1000 mg/dL (Normal) H 08/09/24 18:25 Urine Ketones Negative (Negative) 08/09/24 18:25 Urine Occult Blood 1+ (Negative) H 08/09/24 18:25 Urine Nitrite Negative (Negative) 08/09/24 18: Urine Bilirubin Negative (Negative) 08/09/24 18:25 Urine Urobilinogen Normal mg/dL (Normal) 08/09/24 18:25 Ur Leukocyte Esterase 4+ (Negative) H 08/09/24 18:25 Urine RBC 5-9 /HPF (0-4) H 08/09/24 18:25 Urine WBC Innumerable /HPF (0-4) H 08/09/24 18:25 Urine WBC Clumps Many /LPF (None Seen) H 08/09/24 18:25 Ur Squamous Epith Cells 1-2 /HPF (0-2) 08/09/24 18:25 Urine Bacteria 1+ /HPF (None Seen) H 08/09/24 18:25 Hyaline Casts None /LPF (0-8) 08/09/24 18:25 Urine Mucus Rare /LPF 08/09/24 18:25 Assessment & Plan Assessment/Plan (1) UTI (urinary tract infection): (2) Bacterial cystitis: (3) CKD (chronic kidney disease): (4) BPH (benign prostatic hyperplasia): (5) Diabetes: (6) History of CVA (cerebrovascular accident): (7) Hyperlipidemia: (8) Hypertension: Plan Assessment: Acute bacterial cystitis/complicated urinary tract infection, which may be recurrent, with ESBL E. coli UTI back about 1 month ago on July 09. With the intensity of his symptoms and fevers and chills and rigors and tachycardia he meets diagnostic criteria for sepsis/early sepsis and likely has bacteremia. Chronic kidney disease stage III, currently stable. Diabetes mellitus type 2, with hyperglycemia, and use of Invokana, which may be causing glucosuria which is setting him up for recurrent urinary tract infections. Hypertension. Dyslipidemia. Old strokes in the past. Prostate hypertrophy. Plan: Hospital admission, inpatient status. Continue IV ertapenem, dose adjusted by pharmacy for his renal clearance. Awaiting urine culture results. Await blood culture results. Recheck BMP daily to make sure that chronic kidney disease stays stable. I would pause the use of Invokana in a person with complicated and recurrent bacterial urinary tract infections until they are fully resolved. Check hemoglobin A1c. Sliding scale insulin level 3. DVT prophylaxis with 40 mg of Lovenox subcutaneously daily. IP vs OBS Justification Based on differential dx, clinical care plan, and risk of adverse events, if untreated, in my clinical judgement this patient requires an acute care setting as: INPATIENT because of an expectation ofan over 2 midnight stay. Estimated length of stay (# of days): 4 Documented By: Amrik Rojas DO [id number] Signed By: <Electronically signed by Amrik Rojas DO> 08/09/242219 [facility] Work Phone: 1(869) 227-473210-15-2024 Telephone encounter Note* Telephone Encounter - Jaguar Thibodeaux MA - 08/04/2024 8:07 AM EDT [facility] to [id number] Miscellaneous Notes* Telephone Encounter - Jaguar Thibodeaux MA - 08/04/2024 8:07 AM EDT Patient needs to call in refill [id number] Hospital Discharge instructions Follow Up Care 07/30/2024 10:26:43 With:SAVI PRATER, PHILIPPE Ramírez, URL Address: [address] [facility] [place] [address] When: Unknown [facility] [place] [id number] History of Present illness Narrative* Fara Schofeild RN - 07/23/2024 8:30 AM EDT Patient is here for Invanz. He is tolerating it well. Denies any issues or side effects. Picc line flushes well, but noticed when flush picc line started leaking around insertion site with serosanguinous drainage. Insertion site is red. Patient said his doctor looked at it yesterday. PICC line removed per policy as this is his last day per order. Pressure dressing applied. IV started to left hand. Invanz infused over 30 minutes. Patient tolerated it well. IV removed. Patient educated on discharge instructions. Patient discharged in stable condition. [facility] History of Present illness Narrative* Tanja Sullivan NP - 07/22/2024 2:00 PM EDT Images from the original note were not included. Subjective Patient ID: Rod Mathias (: 1960) is a 63 y.o. male who presents for Hospital Follow-up. HPI Flowsheet Row Patient Outreach from 07/15/2024 in [facility] with Rajani KarlyHyrum, [place] Hospital Information Diagnosis Infection due to ESBL- producing escherichia coli, UTI, BPH, Urinary retention. Discharge Date 07/14/24 Discharged To: Home Setting Discharge [facility] Engagement Admission Date 07/09/24 Medications Discharge medications reviewed and reconciled from hospital? Yes [New: Ertapenem 1g IV Q24H, polyethylene glycol 17g daily, Flomax 0.4 daily.] Is the patient having any side effects they believe may be caused by any medication additions or changes? No Does the patient have all medications ordered at discharge? Yes Nursing Interventions Nurse provided patient education Is the patient taking all medications as directed (includes completed medication regime)? Yes Nursing Interventions Nurse provided patient education Appointments Does the patient have a primary care provider? Yes Nursing Interventions Verified appointment date/time/provider Nursing Interventions Advised patient to keep appointment Follow Up Tasks -- [Pt will follow with Dr. Vincent 07/21/24] Self Management Has home health visited the patient within 72 hours of discharge? Not applicable [No HH to pt knowledge. This was orginally scheduled to be set in place when he had the chaparro. Which was removed before discharge.] Patient Teaching Does the patient have access to their discharge instructions? Yes Nursing Interventions Reviewed instructions with patient What is the patient's perception of their health status since discharge? Improving Is the patient/caregiver able to teach back the hierarchy of who to call/visit for symptoms/problems? PCP, Specialist, Home Health nurse, Urgent Care, ED, 911 Yes Wrap Up Wrap Up Additional Comments UA, labs, CXR, CT abd/pelvis History of Present Illness The patient presents for HFU. Patient presents today after being in the hospital for obstructing kidney stone and urosepsis. He is currently getting outpatient IV antibiotics. He was feeling well yesterday but today he reports experiencing fatigue, an upset stomach, and nausea. He vomited last night and began belching, feeling unwell again. Despite these symptoms, he maintains a good appetite and consumed a honey bun today. He has not taken Zofran or Phenergan at home but is currently on Prilosec for acid reflux. He has previously taken Phenergan without any adverse effects. He reports no fever, diarrhea, chest pain, or shortness of breath. His bowel movements have slowed down slightly. His stent has been removed, and the stone has been fragmented. He is due to complete his intravenous antibiotics tomorrow. He had a consultation with Dr. Vincent yesterday. He reports no urinary discomfort, and his urination is normal. He has an enlarged prostate which affects his urine flow and was informed that he would require a Chaparro catheter for the rest of his life which did make him very upset in the hospital. He does not have a chaparro catheter at this time. He does have a history of passing kidney stones since the age of 13. He lives alone and does not report any sick contacts. Current Outpatient Medications Medication Instructions ALPRAZolam (XANAX) 0.5 mg, Oral, Every 8 hours PRN amLODIPine (NORVASC) 5 mg, Oral, Daily ASPIRIN 81 MG chewable tablet Every 24 hours atorvastatin (LIPITOR) 40 mg, Oral, Nightly canagliflozin (INVOKANA) 100 mg, Oral, Daily before breakfast ergocalciferol (VITAMIN D-2) 1.25 mg, Oral, Weekly glimepiride (Amaryl) 1 MG tablet take 1 tablet by mouth every morning with meals HYDROcodone-acetaminophen (Fortine) 5-325 MG tablet 1-2 tablets, Oral, Every 4 hours PRN losartan (COZAAR) 100 mg, Oral, Daily omeprazole (PRILOSEC) 20 mg, Oral, Daily, Do not crush or chew. polyethylene glycol (PEG) 3350 (MIRALAX) 17 g, Oral, Daily promethazine (PHENERGAN) 25 mg, Oral, Every 8 hours PRN propranolol LA (INDERAL LA) 80 mg, Oral, Daily semaglutide (RYBELSUS) 14 mg, Oral, Daily before breakfast solifenacin (VESICARE) 10 mg, Oral, Daily tamsulosin (FLOMAX) 0.4 mg, Oral, Daily Allergies Allergen Reactions Lisinopril-Hydrochlorothiazide Other Reaction(s): Other foggy-headed , out of sorts Buspar [Buspirone] Other Lower extremity edema Metformin Other Reaction(s): fatigue Patient Active Problem List Diagnosis Stage 3a chronic kidney disease (HCC) (CMS/HCC) Restless legs Monoclonal paraproteinemia Pure hypercholesterolemia (CMS/HCC) Essential hypertension (CMS/HCC) Degeneration of intervertebral disc of lumbar region Type 2 diabetes mellitus with diabetic nephropathy (CMS/HCC) Benign prostatic hyperplasia without urinary obstruction Primary insomnia Peripheral neuropathy due to metabolic disorder ([facility]) Primary osteoarthritis involving multiple joints History of kidney stones History of TIA (transient ischemic attack) MEGAN (generalized anxiety disorder) ([facility]) Renal cyst History of migraine headaches Hyperparathyroidism, unspecified ([facility]) Cervical myelopathy ([facility]) Review of Systems Constitutional: Positive for fatigue. Negative for chills and fever. Gastrointestinal: Positive for nausea and vomiting. Negative for abdominal distention, abdominal pain and constipation. Genitourinary: Negative for dysuria, flank pain and frequency. Neurological: Negative for dizziness, light-headedness and headaches. Objective Vital signs: BP 98/60 Pulse 80 Temp 97.3 F Wt 236 lb SpO2 96% BMI 33.86 kg/m Clinis[employer] Result Encounter on 06/30/2024 Component Date Value Ref Range Status PROTHROMBIN TIME 06/30/2024 10.8 9.0 - 11.6 sec Final H INR 06/30/2024 1.02 Final Comment: DESIRED INR: 2.0-3.0 CONDITIONS NOT LISTED BELOW 2.5-3.5 FOR PROSTHETIC HEART VALVE REPLACEMENT 2.5-3.5 RECURRENT THROMBOSIS PARTIAL THROMBOPLASTIN TIME 06/30/2024 30.0 22.3 - 36.2 sec Final SOURCE 06/30/2024 Comment . Final Right Ureter COLOR 06/30/2024 Brown . Final SIZE 06/30/2024 5x3 . mm Final Comment: Multiple pieces received. Dimensions of the largest piece reported. WEIGHT 06/30/2024 44 . mg Final COMPOSITION 06/30/2024 Comment . Final Percentage (Represents the % composition) CALCIUM OXALATE MONOHYDRATE 06/30/2024 60 . % Final CALCIUM OXALATE DIHYDRATE 06/30/2024 TNP . Final CALCIUM PHOSPHATE (HYDROXYL) 06/30/2024 TNP . Final CALCIUM PHOSPHATE (CARBONATE) 06/30/2024 TNP . Final CAHPO4 (BRUSHITE) 06/30/2024 TNP . Final CALCIUM PHOSPHATE 06/30/2024 TNP . Final CALCIUM CARBONATE 06/30/2024 TNP . Final QJAS6JH1 (STRUVITE) 06/30/2024 TNP . Final MGHPO4 (NEWBERYITE) 06/30/2024 TNP . Final URIC ACID 06/30/2024 40 . % Final URIC ACID DIHYDRATE 06/30/2024 TNP . Final AMMONIUM ACID URATE 06/30/2024 TNP . Final SODIUM ACID URATE 06/30/2024 TNP . Final 2,8 DIHYDROXYADENINE 06/30/2024 TNP . Final XANTHINE 06/30/2024 TNP . Final CYSTINE 06/30/2024 TNP . Final CHOLESTEROL 06/30/2024 TNP . Final CALCIUM BILIRUBINATE 06/30/2024 TNP . Final BILIRUBIN 06/30/2024 TNP . Final CALCIUM PALMITATE 06/30/2024 TNP . Final CALCIUM STEARATE 06/30/2024 TNP . Final TRIAMTERENE 06/30/2024 TNP . Final DRUG OR METABOLITE 06/30/2024 TNP . Final DRIED BLOOD 06/30/2024 TNP . Final CELLULAR MATERIAL 06/30/2024 TNP . Final OTHER COMPONENT(S) 06/30/2024 TNP . Final COMMENT 06/30/2024 Comment . Final Comment: Calculus received wet. Wet calculi must be dried before analysis, which delays reporting of results. Leaving calculi wet (such as water, saline, blood, urine) may lead to changes in composition. PHOTO 06/30/2024 Comment . Final Photograph will follow under a separate cover COMMENT: 06/30/2024 Comment . Final Comment: Physician questions regarding Calculi Analysis [facility] at: [phone]. PLEASE NOTE: 06/30/2024 Comment . Final Comment: Calculi report will follow via computer, mail or range master delivery. DISCLAIMER: 06/30/2024 Comment . Final Comment: This test was developed and its performance characteristics determined by [employer]. It has not been cleared or approved by the Food and Drug Administration. Performed at: [address] [id number] Open Claims Representative: Duy Vinson PhD, Phone: [phone] Physical Exam HENT: Head: Normocephalic. Mouth/Throat: Mouth: Mucous membranes are moist. Eyes: Pupils: Pupils are equal, round, and reactive to light. Cardiovascular: Rate and Rhythm: Normal rate. Pulmonary: Effort: Pulmonary effort is normal. Abdominal: Palpations: Abdomen is soft. Tenderness: There is no right CVA tenderness or left CVA tenderness. Skin: General: Skin is warm and dry. Neurological: Mental Status: He is alert and oriented to person, place, and time. Psychiatric: Mood and Affect: Mood normal. Assessment/Plan Assessment & Plan 1. Nausea. Phenergan 25 mg tablet was recommended, to be taken every 8 hours as needed. A bland diet was also suggested. If symptoms persist until Saturday morning, he is advised to contact the office. 2. Enlarged Prostate. He has been experiencing issues with urine flow due to an enlarged prostate. He is scheduled to discuss surgery with Dr. Heath once the current infection has resolved. 3. Fatigue. He is experiencing fatigue, likely related to his recent illness and treatment. He is advised to rest and stay hydrated. 4. Vomiting. He reported vomiting last night. Phenergan 25 mg tablet was recommended, to be taken every 8 hours as needed. Problem List Items Addressed This Visit None Visit Diagnoses Nausea and vomiting, unspecified vomiting type - Primary Relevant Medications promethazine (Phenergan) 25 MG tablet Other fatigue Health Maintenance Topic Date Due Colorectal Cancer Screening Never done Pneumococcal Vaccine: 65+ Years (1 of 2 - PCV) Never done Influenza Vaccine (1) Never done Diabetes: Hemoglobin A1C 09/17/2024 Diabetes: Urine Protein Screening 02/12/2025 Medicare Annual Wellness (AWV) 02/19/2025 Diabetes: Retinopathy Screening 05/24/2025 Immunization History Administered Date(s) Administered Moderna SARS-CoV-2 Vaccination 02/23/2021, 03/23/2021 Pfizer Purple Cap SARS-CoV-2 Vaccination 09/20/2021 -Patient's chronic conditions have been reviewed in preparation for this appointment. Protocols reviewed and updated. A collaborative plan of care has been created for pt regarding specific health concerns. Any barriers to care have been identified and addressed. Any part of this document that has been added/copied from other documents has been reviewed for accuracy and updated as appropriate at the time of the patient encounter. -Follow up for Next scheduled follow-up. Tanja Sullivan NP documented in this encounterSaint [facility] Health [id number] History of Present illness Narrative* Fara Schofield RN - 07/22/2024 9:30 AM EDT Patient is here for Invanz. He is tolerating it well. Denies any issues or side effects. Picc line flushes well, blood return noted with patient lying flat and arm straight out. Invanz infused over 30 minutes. Patient tolerated it well. Picc line flushed and saline locked. Patient verbalized understanding of future appointments. [facility] History of Present illness Narrative* Fara Schofield RN - 07/21/2024 9:00 AM EDT Patient is here for Invanz. He is tolerating it well. Denies any issues or side effects. Picc line flushes well, blood return noted with patient lying flat and arm straight out after multiple flushes. Picc dressing changed under sterile technique. Invanz infused over 30 minutes. Patient tolerated it well. Picc line flushed and saline locked. Patient verbalized understanding of future appointments. documented in this [facility]Pro[facility]-30-[facility] History of Present illness Narrative* Carmen Ospina RN - 07/20/2024 3:25 PM EDT The patient missed two days of IV atb. Called ordering physician's office to update MD, is ok with patient finishes two doses on Saturday and . documented in this [facility]Pro[facility]-30-[facility] History of Present illness Narrative* Maryanne Nolen RN - 07/20/2024 8:30 AM EDT IV Ertapenem, pt relays he missed weekend infusions rescheduled and appt calendar provided, verbalizes understanding documented in this [facility]09-28-2024 History of Present illness Narrative* Carmen Ospina RN - 07/18/2024 8:30 AM EDT Patient did not show up to difficulty with transportation documented in this [facility]Pro[facility]-27-[facility] History of Present illness Narrative* Fara Schofield RN - 07/17/2024 8:00 AM EDT Patient is here for Invanz. He is tolerating it well. Denies any issues or side effects. Picc line flushes well, blood return noted with patient lying flat and arm straight out after multiple flushes. Invanz infused over 30 minutes. Patient tolerated it well. Picc line flushed and saline locked. Patient verbalized understanding of weekend appointments. documented in this [facility]Pro[facility]09-26-[facility] History of Present illness Narrative* Carmen Ospina RN - 07/16/2024 8:30 AM EDT The patient is here for day 2 of Ertapenem He has a picc line that was previously placed Brisk blood return noted after repositioning are and several flushes Ertapenem given over 30 min Patient tolerated well PICC line flushed, clamped, and capped Patient discharged in stable condition documented in this [facility]Pro[facility]25-[facility] History of Present illness Narrative* Carmen Ospina RN - 07/15/2024 10:00 AM EDT The patient is here for dose 1 of Ertapenem He has a picc line that was previously placed Brisk blood return noted Ertapenem given over 30 min Patient tolerated well PIIC line flushed, clamped, and capped Patient discharged in stable condition documented in this [facility]09-24-2024 Progress note Author Jonnie Wright [facility] July 14, 2024 2:14pmNote Date/TimeSeptember 2023 2:14pm[place] [address] Hospitalist Progress Note Signed Patient: Rod Mathias MR#: [id number] : 1960 Acct:[id number] Age/Sex: 63 / M Adm Date: 4 Loc: 4N Room: [address] [place] [address] Type: ADM IN Attending Dr: Jonnie Wright MD Copies to: ~ Date of Service: 07/14/2024 Subjective Subjective Narrative: Voiding on his own and had multiple bowel movement. Waiting on midline Exam Physical Exam Vital Signs: Temp Pulse Resp BP Pulse Ox O2 Del Method 36.7 C 60 16 138/77 96 Room Air 07/14/24 11:49 07/14/24 11:49 07/14/24 11:49 07/14/24 11:49 07/14/24 11:49 07/14/24 11:49 Narrative: General: Not in acute distress, alert HEENT: PERRLA, and intact and normocephalic Neck: Normal to inspection Lungs: Clear to auscultation, work of breathing within normal limit Cardiac: Regular rate and rhythm Abdomen: Soft, nontender, positive bowel sounds Genitourinary: Deferred Skin: Intact Hematology: No petechiae or excessive ecchymosis Musculoskeletal: Without significant trauma Neurological: Alert awake oriented, no focal deficit, cranial nerves grossly intact Psych: No suicidal ideation or homicidal ideation Objective Lab Results 07/11/24 06:41 07/11/24 06:41 Microbiology Results Microbiology 07/09/24 18:08 Blood - Left Antecubital Blood Culture - Preliminary No Growth 4 Days 07/09/24 17:25 Blood - Right Antecubital Blood Culture - Preliminary No Growth 4 Days Meds Allergies and Active Meds Allergies No Known Allergies Allergy (Verified 07/09/24 16:35) Active Meds: Active Medications Generic Name Dose Route Start Last Admin Trade Name Freq PRN Reason Stop Dose Admin Alprazolam 0.5 mg 07/09/24 20:42 07/13/24 21:13 Alprazolam 0.5 Mg Tablet PO 01/05/25 20:41 0.5 mg Q8H PRN Administration Anxiety Amlodipine Besylate 5 mg 07/10/24 09:00 07/14/24 09:08 Amlodipine 5 Mg Tablet PO 07/10/25 08:59 5 mg QAM PEEWEE Administration Atorvastatin Calcium 40 mg 07/09/24 21:00 07/13/24 21:13 Atorvastatin 40 Mg Tablet PO 07/09/25 20:59 40 mg QPM PEEWEE Administration Buspirone HCl 15 mg 07/09/24 21:00 07/14/24 09:08 Buspirone 15 Mg Tablet PO 07/09/25 20:59 15 mg BID PEEWEE Administration Empagliflozin 10 mg 07/10/24 09:00 07/14/24 09:08 Empagliflozin 10 Mg Tablet PO 07/10/25 08:59 10 mg QAM PEEWEE Administration Ertapenem 1 gm in 100 mls @ 200 mls/hr 07/11/24 12:00 07/14/24 12:48 Invanz IV 200 mls/hr Q24H PEEWEE Administration Insulin Aspart 0 units 07/09/24 22:00 07/14/24 12:04 Insulin Aspart 300 Units/3 Ml Insuln.Pen SUBCUT 07/09/25 21:59 Not Given TID.WM.HS PEEWEE Protocol Losartan Potassium 100 mg 07/10/24 09:00 07/14/24 09:08 Losartan 50 Mg Tablet PO 07/10/25 08:59 100 mg DAILY PEEWEE Administration Morphine Sulfate 2 mg 07/09/24 20:41 07/12/24 20:06 Morphine Sulfate 2 Mg/Ml Vial IV-PUSH 2 mg Q3H PRN Administration Pain Semaglutide [ 14 mg 07/10/24 09:00 07/14/24 09:08 Rybelsus] 7 Mg PO 07/10/25 08:59 Not Given Tablet DAILY PEEWEE Ondansetron HCl 4 mg 07/11/24 04:00 07/12/24 21:46 Ondansetron 4 Mg/2 Ml Vial IV-PUSH 07/11/25 03:59 4 mg Q6H PRN Administration Nausea And Vomiting Oxycodone/Acetaminophen 2 tab 07/09/24 20:41 07/14/24 09:08 Oxycodone/Acetaminophen 5-325 Mg Tablet PO 2 tab Q6H PRN Administration Pain Polyethylene Glycol 17 gm 07/10/24 09:00 07/14/24 09:08 Polyethylene Glycol 3350 17 Gm Powd.Pack PO 07/10/25 08:59 Not Given DAILY PEEWEE Propranolol HCl 80 mg 07/10/24 09:00 07/13/24 08:33 Propranolol Sa.24hr 80 Mg Capsule PO 07/10/25 08:59 80 mg DAILY PEEWEE Administration Senna/Docusate Sodium 2 tab 07/09/24 21:00 07/14/24 09:08 Sennosides/Docusate 8.6-50mg 1 Tab Tablet PO 07/09/25 20:59 Not Given BID PEEWEE Sodium Chloride 0 ml 07/09/24 16:35 07/13/24 11:34 Sodium Chloride 0.9 % 10 Ml Syringe IV-PUSH 07/09/25 16:34 10 ml PRN PRN Administration Flush Sodium Chloride 0 ml 07/13/24 12:58 07/14/24 12:49 Sodium Chloride 0.9 % 10 Ml Syringe IV-PUSH 07/13/25 12:57 10 ml PRN PRN Administration Flush Tamsulosin HCl 0.4 mg 07/13/24 10:55 07/14/24 09:07 Tamsulosin 0.4 Mg Cap.Er.24h PO 07/13/25 10:54 0.4 mg DAILY PEEWEE Administration A&P - Hospitalist Assessment/Plan (1) Infection due to ESBL-producing Escherichia coli: Plan: Discharge on total of 10 days of ertapenem Pending midline placement Patient voiding on his own after bowel movement Continue with Flomax (2) UTI (urinary tract infection): Plan: Appreciate ID and urology input Plan Plan discussed with patient at bedside Moderate level of MDM based on above issue and discussing plan Disposition: Discharge home with home health once midline is in place and follow-up with urology asoutpatient This note is created using voice recognition software. All efforts were made tominimize errors, if they are is due to investigator internal revenue. Jonnie Wright MD Hospitalist Documented By: Jonnie Wright MD 07/14/241412 Signed By: <Electronically signed by Jonnie Wright MD> 07/14/241413 [facility] Work Phone: 1(432) 320-603409-24-2024 Discharge summary Author Jonnie Wright [facility] July 14, 2024 2:08pmNote Date/TimeSeptember 2023 1:15pm[place] [address] Discharge Summary Signed with Addenda Patient: Rod Mathias MR#: [id number] : 1960 Acct:[id number] Age/Sex: 63 / M Adm Date: 4 Loc: Room: [address] [place] [address]: Jonnie Wright MD Copies to: MD Ganga Ocampo MD~ ADDENDUM1 Patient was having multiple bowel movements and has been voiding on his own and PVR has been less than 160. Will be discharged on 07/14/[address] with IV ertapenem as outpatient through home health. Addendum Documented By: Jonnie Wright MD 07/14/24 1408 Addendum Signed By: <Electronically signed by Jonnie Wright MD> 07/14/24 1408 Providers Date of Discharge: 07/13/24 Discharging Provider: Jonnie Wright Primary Care Provider: Ganga Hernandez Consults: 07/10/24 20:59 Consult to Urology Stat Comment: Consulting Provider: [facility] Reason For Exam: urinary retention Has Provider Been Notified: Yes Date of Notification: 07/11/24 Time of Notification: 07:40 Extended Comment: notified previous shift 07/13/24 10:47 Consult to Infectious Diseases Routine Comment: Consulting Provider: Shaniqua Castro Reason For Exam: esbl UTI with kidney stone Has Provider Been Notified: Yes Date of Notification: 07/13/24 Time of Notification: 11:04 07/13/24 10:57 Consult to Urology Routine Comment: Consulting Provider: [facility] Reason For Exam: urinary retention, patient wants to speak to urolo Has Provider Been Notified: Yes Date of Notification: 07/13/24 Time of Notification: 11:12 Extended Comment: urinary retention, patient wants to speak to urologist. Started on Flomax and on bowel regimen. 07/13/24 12:58 Vascular Lab PICC Consult Routine Comment: Placement of midline/PICC line for IV or ertapenem Has Provider Been Notified: No Scheduling PICC Line Placement INR Is Less Than 2.0: Yes Ordering Physician Has Obtained Consent: Yes: Verbal consent has been obtained Consent is on Chart: No: Verbal consent has been obtained To Schedule call Special Procedures Ext. [phone] If no answer, please leave a message. Your call will be returned SHAYNA. If it is during normal business hours (Mon-Fri 7 AM to 4 PM your call will be returned during the same day and the patient will be scheduled accordingly. If it is after hours your call will be returned the following day. Discharge Diagnosis (1) Infection due to ESBL-producing Escherichia coli: (2) UTI (urinary tract infection): Final Diagnosis Final Discharge Diagnosis: ESBL E. coli related UTI, urinary retention, BPH Summary Hospital Course Hospital course: 63-year-old male with past medical history of obesity, diabetes mellitus, history of CVA, multiple kidney stone, hypertension, dyslipidemia, restless leg syndrome presented to emergency department for chills along with hematuria afterrecent stent removal after definitive kidney stone treatment by Dr. Vincent. Patient was found to have UTI. He was initially started on ceftriaxone and urine culture grew out 2 be ESBL E. coli and was switched to ertapenem. Urologywas consulted with urinary retention and patient's symptoms and recommended 10 days of antibiotics. ID concurred and recommended 10 days of ertapenem. Patient is given bowel regimen along with Flomax and referral to urology regarding urinary retention. We had a very long discussion about treatment of BPH and most of this is outpatient and they can do a voiding trial and urodynamics for him as outpatient. He is quite frustrated about having the Chaparro catheter and I tried to help him understand that this is typical route when somebody is having significant urinary retention with high PVR to have a catheter until the definitive BPH treatment has been established. He will needclose follow-up with urology Condition Condition at Discharge: Stable Status at Discharge Functional status at discharge: independent ambulation Overall status at discharge: patient is back to baseline Time Spent with Patient Time spent providing/coordinating discharge services (# min): 45 Discharge Plan Discharge Plan Patient Disposition: Home Health Services Activity: No Activity Restriction Diet: Regular Instructions: Know your Meds, [facility] Chaparro Catheter Care at Home Prescriptions: New ertapenem 1 gram Recon Soln 1 g IV Q24H 8 Days Qty: 8 0RF polyethylene glycol 3350 [HealthyLax] 17 gram Powder In Packet 17 g PO DAILY 30 Days Qty: 30 0RF tamsulosin 0.4 mg Capsule 0.4 mg PO DAILY 30 Days Qty: 30 0RF Continued amlodipine 5 mg tablet 5 mg PO QAM Invokana 100 mg tablet 100 mg PO QAM Patient Comments: take 1 tablet by mouth daily BEFORE THE FIRST MEAL OF THE DAY aspirin 81 mg Capsule 81 mg PO QAM hydrocodone-acetaminophen 5-325 mg tablet 1 - 2 tab PO Q4-6H PRN (Reason: Pain) Patient Comments: take 1 tablet by mouth twice a day if needed Rx Instructions: Hip pain propranolol 80 mg Capsule,Extended Release 24hr 80 mg PO DAILY atorvastatin [Lipitor] 40 mg tablet 40 mg PO QPM Rybelsus 7 mg Tablet 14 mg PO DAILY alprazolam 0.5 mg tablet 0.5 mg PO Q8H PRN (Reason: Anxiety) Patient Comments: take 1 tablet by mouth every 8 hours if needed for anxiety buspirone 15 mg tablet 15 mg PO BID Patient Comments: TAKE 1 TABLET BY MOUTH IN THE MORNING AND BEFORE BEDTIME losartan 100 mg tablet 100 mg PO DAILY Patient Comments: take 1 tablet by mouth once daily Follow Up: Ganga Hernandez MD [Primary Care Provider] - 07/20/24 9:15 am Norris Vincent MD [Active Staff] - 07/21/24 11:20 am (Appointment in the [place] office) Exam Physical Exam Vital Signs: Temp Pulse Resp BP Pulse Ox O2 Del Method 36.8 C 59 L 16 145/83 H 92 L Room Air 07/13/24 11:24 07/13/24 11:24 07/13/24 11:24 07/13/24 11:24 07/13/24 11:24 07/13/24 11:24 Narrative: General: Not in acute distress, alert HEENT: PERRLA, and intact and normocephalic Neck: Normal to inspection Lungs: Clear to auscultation, work of breathing within normal limit Cardiac: Regular rate and rhythm Abdomen: Soft, nontender, positive bowel sounds Genitourinary: Chaparro catheter is in place Skin: Intact Hematology: No petechiae or excessive ecchymosis Musculoskeletal: Without significant trauma Neurological: Alert awake oriented, no focal deficit, cranial nerves grossly intact Psych: No suicidal ideation or homicidal ideation Diagnostic Studies Completed and Pending Studies Pending studies at discharge: 07/09/24 18:08 Blood Culture Stat Preliminary micro results at discharge 07/09/24 18:08 Blood Culture - Preliminary Blood - Left Antecubital No Growth 3 Days 07/09/24 17:25 Blood Culture - Preliminary Blood - Right Antecubital No Growth 3 Days Labs on day of discharge: 07/13/24 11:30: POC Glucose 137, POC Glucose Comment Glu2: cleaned meter 07/13/24 07:42: POC Glucose 125 07/12/24 21:42: POC Glucose 167 07/12/24 16:57: POC Glucose 115 Documented By: Jonnie Wright MD 07/13/24 1312 Signed By: <Electronically signed by Jonnie Wrigth MD> 07/13/24 1315 [facility] Work Phone: 1(874) 190-646309-24-2024 History of Present illness Narrative* Carmen Ospina RN - 07/14/2024 9:40 AM EDT This loan underwriter tried to call patient to give appt times. His phone line goes straight to and cannotleave a message documented in this encounterNorthwestern [facility] CenterFive-[facility]irty09-23-2024 Consult note Author Shaniqua Castro [facility] July 13, 2024 11:19amNote Date/TimeSeptember 2023 11:16[place] [address] Infect. Disease Consult Note Signed Patient: Rod Mathias MR#: [id number] : 1960 Acct:[id number] Age/Sex: 63 / M Adm Date: 4 Loc: 4N Room: 0M1876-0 Type: ADM IN Attending Dr: Jonnie Wright MD Copies to: MD Jonnie Leon MD Robert L Hill, MD~ HPI Data of Consult Consult date: 07/13/24 Requesting Physician: Jonnie Wright MD Primary Care Provider: Ganga Hernandez MD Consult Narrative History of present illness: Mr. Mathias is a 63 year old male who recently underwent surgery for nephrolithiasis and required astent. The stent was removed. Patient ended up not being able to pee therefore came back to the hospital. He is found have a urinary tract infection with ESBL E. coli. Initially was on ceftriaxone but when the culture came back was switched to ertapenem. This is spine consulted as he will likely need treatment for this infection with an IV antibiotic upon discharge. Patient quite frustrated this morning as he is concerned he is can have a Chaparro catheter for life. Patient physically is not complaining of anything aside from the idea of having a Chaparro catheter for an extended period of time. Hedenies any flank pain at this time. Denies nausea vomiting or diarrhea. CC: Jonnie Wright MD Review of Systems Review of Systems All other systems reviewed & are negative unless noted below or in HPI [facility] Medical History (Updated 07/13/24 @ 11:18 by Shaniqua Castro MD) Arthritis hips Problem List clean-up per request of Phys. EHR Cmte Back pain was told possible fracture vertebra Problem List clean-up per request of Phys. EHR Cmte Restless legs left leg Numbness and tingling of leg left leg CKD (chronic kidney disease) stage 3 Problem List clean-up per request of Phys. 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 EHR Cmte Hx of renal calculi Hyperlipidemia Hypertension Surgical History (Updated 07/09/24 @ 19:08 by Gabi Lazo RN) History of renal stent H/O colonoscopy H/O hernia repair umbilical Hx of cystoscopy stone basket Problem List clean-up per request of Phys. EHR Cmte Hx of cervical spine surgery anterior Problem List clean-up per request of Phys. EHR Cmte Hx of lithotripsy Family History Brother Diabetes Mother HTN (hypertension) Father Medical history unknown Social History Smoking Status: Former smoker Tobacco Type: cigarettes Substance Use Type: None Substance Abuse Comment: occasional social alcohol use Allergies and Medications Allergies and Active Meds Allergies No Known Allergies Allergy (Verified 07/09/24 16:35) Active Medications Alprazolam (Alprazolam 0.5 Mg Tablet) 0.5 mg PO Q8H PRN PRN Reason: Anxiety Stop: 01/05/25 20:41 Last Admin: 07/13/24 08:39 Dose: 0.5 mg Amlodipine Besylate (Amlodipine 5 Mg Tablet) 5 mg PO QAM [facility] Stop: 07/10/25 08:59 Last Admin: 07/13/24 08:33 Dose: 5 mg Atorvastatin Calcium (Atorvastatin 40 Mg Tablet) 40 mg PO QPM [facility] Stop: 07/09/25 20:59 Last Admin: 07/12/24 21:48 Dose: 40 mg Buspirone HCl (Buspirone 15 Mg Tablet) 15 mg PO BID [facility] Stop: 07/09/25 20:59 Last Admin: 07/13/24 08:40 Dose: Not Given Empagliflozin (Empagliflozin 10 Mg Tablet) 10 mg PO QAM [facility] Stop: 07/10/25 08:59 Last Admin: 07/13/24 08:33 Dose: 10 mg Ertapenem (Invanz) 1 gm in 100 mls @ 200 mls/hr IV Q24H [facility] Last Admin: 07/12/24 12:26 Dose: 200 mls/hr Insulin Aspart (Insulin Aspart 300 Units/3 Ml Insuln.Pen) 0 units SUBCUT TID.WM.[facility]; Protocol Stop: 07/09/25 21:59 Last Admin: 07/13/24 08:26 Dose: Not Given Losartan Potassium (Losartan 50 Mg Tablet) 100 mg PO DAILY [facility] Stop: 07/10/25 08:59 Last Admin: 07/13/24 08:33 Dose: 100 mg Morphine Sulfate (Morphine Sulfate 2 Mg/Ml Vial) 2 mg IV-PUSH Q3H PRN PRN Reason: Pain Last Admin: 07/12/24 20:06 Dose: 2 mg Semaglutide [ Rybelsus] 7 Mg Tablet 14 mg PO DAILY [facility] Stop: 07/10/25 08:59 Last Admin: 07/13/24 08:40 Dose: Not Given Ondansetron HCl (Ondansetron 4 Mg/2 Ml Vial) 4 mg IV-PUSH Q6H PRN PRN Reason: Nausea And Vomiting Stop: 07/11/25 03:59 Last Admin: 07/12/24 21:46 Dose: 4 mg Oxycodone/Acetaminophen (Oxycodone/Acetaminophen 5-325 Mg Tablet) 2 tab PO Q6H PRN PRN Reason: Pain Last Admin: 07/13/24 08:37 Dose: 2 tab Polyethylene Glycol (Polyethylene Glycol 3350 17 Gm Powd.Pack) 17 gm PO DAILY [facility] Stop: 07/10/25 08:59 Last Admin: 07/13/24 08:34 Dose: 17 gm Propranolol HCl (Propranolol Sa.24hr 80 Mg Capsule) 80 mg PO DAILY [facility] Stop: 07/10/25 08:59 Last Admin: 07/13/24 08:33 Dose: 80 mg Senna/Docusate Sodium (Sennosides/Docusate 8.6-50mg 1 Tab Tablet) 2 tab PO BID [facility] Stop: 07/09/25 20:59 Last Admin: 07/13/24 08:33 Dose: 2 tab Sodium Chloride (Sodium Chloride 0.9 % 10 Ml Syringe) 0 ml IV-PUSH PRN PRN PRN Reason: Flush Stop: 07/09/25 16:34 Last Admin: 07/10/24 22:27 Dose: 10 ml Tamsulosin HCl (Tamsulosin 0.4 Mg Cap.Er.24h) 0.4 mg PO DAILY [facility] Stop: 07/13/25 10:54 Exam Physical Exam Vital Signs: Temp Pulse Resp BP Pulse Ox O2 Del Method 98.4 F 62 18 143/70 H 92 L Room Air 07/13/24 08:00 07/13/24 08:00 07/13/24 08:00 07/13/24 08:00 07/13/24 08:00 07/13/24 08:00 Const General: cooperative, comfortable and no acute distress Orientation: oriented x3 HEENT Head: normal to inspection Ears: hearing grossly normal bilaterally Eyes General: appearance normal, both eyes and all related structures Neck Neck: normal visual inspection Chest Chest palpation & inspection: normal inspection of the chest Resp Effort & Inspection: normal respiratory effort Cardio Palpation: normal PMI Rate: regular rate Rhythm: regular rhythm GI Inspection: normal to inspection Palpation: soft Auscultation: normal bowel sounds Rectal Exam: visual inspection normal Skin General: no rashes or lesions noted Neuro General: patient oriented x3 Extrem General: normal to inspection Results - Infectious Disease Labs 07/11/24 06:41 07/11/24 06:41 Microbiology Results Microbiology Narrative: 07/09/24 18:08 Blood Culture - Preliminary Blood - Left Antecubital No Growth 3 Days 07/09/24 17:25 Blood Culture - Preliminary Blood - Right Antecubital No Growth 3 Days 07/09/24 17:20 Urine Culture - Final Urine - Clean-Voided Midstream Escherichia coli (ESBL) Imaging and Cardiology Results Comments: ABD CT: IMPRESSION: No acute findings. Punctate bilateral nephrolithiasis. A&P - Infectious Disease (1) Infection due to ESBL-producing Escherichia coli: (2) UTI (urinary tract infection): Plan Patient appropriately on ertapenem. Blood cultures were negative. CT scan as above. Patient physically feels okay. Quite frustrated with the notion that hecould end up with a Chaparro catheter upon discharge and he was quite upset about this. Nonetheless I did discuss with him that given the resistantpattern of this organism that IV antibiotics would be best for ongoing treatment of this infection.Urology had put an order in the chart about 10 days of treatment. Would plan IV or ertapenem for this duration. Documented By: Shaniqua Castro MD 07/13/241112 Signed By: <Electronically signed by MD Shaniqua Castro> 07/13/24 1112 [facility] Work Phone: 1(771) 754-114109-22-2024 Progress note Author Sen Neri [facility] July 12, 2024 3:14pmNote Date/TimeSept2023 3:14pm[place] [address] Hospitalist Progress Note Signed Patient: Rod Mathias MR#: [id number] : 1960 Acct:[id number] Age/Sex: 63 / M Adm Date: 4 Loc: 4N Room: 0U6240-2 Type: ADM IN Attending Dr: Sen Neri MD Copies to: ~ Date of Service: 07/12/2024 Subjective Subjective Narrative: Patient is feeling a little bit better today. However he still had significant difficulties in emptying his bladder. Bladder scan postvoid are indicated at some point some 800 cc urine. He was able to void about 200 cc. Awake alert oriented no deficit Heart is regular Lungs are clear Abdomen soft benign Assessment and plan 1. acute pyelonephritis and sepsis in the setting of ureteral manipulation, recent nephrolithiasis and lithotripsy. Multidrug-resistant E. coli. Continue ertapenem day 2. Previously had received 2 days of ceftriaxone. Appreciate input from urology?conservative management advised. Symptom control Constipation prophylaxis DVT prophylaxis SCDs Recheck labs in a.m. 2. Acute urinary retention due to the above. Initially the patient declined Chaparro catheter insertion including by the urologist. Today became apparent thathe will definitely need a Chaparro catheter with a postvoid of urine more than 600 cc, which I confirmed with the [id number] ultrasound. He was agreeable to allow me to attempt it. Lidocaine was injected in the urethra and then by standard procedure I inserted a Chaparro catheter with no notable difficulty. Patient had a total of 650 cc output and he tolerated very well. Continue treatment of his chronic illnesses which include Obesity class I Diabetes type 2 Cerebrovascular disease and history of stroke with right-sided weakness Nephrolithiasis Hypertension Dyslipidemia Restless leg syndrome Exam Physical Exam Vital Signs: Temp Pulse Resp BP Pulse Ox O2 Del Method 97.9 F 61 18 131/75 94 L Room Air 07/12/24 12:00 07/12/24 12:00 07/12/24 12:00 07/12/24 12:00 07/12/24 12:00 07/12/24 12:00 Objective Lab Results 07/11/24 06:41 07/11/24 06:41 Microbiology Results Microbiology 07/09/24 17:20 Urine - Clean-Voided Midstream Urine Culture - Final Escherichia coli (ESBL) 07/09/24 18:08 Blood - Left Antecubital Blood Culture - Preliminary No Growth 2 Days 07/09/24 17:25 Blood - Right Antecubital Blood Culture - Preliminary No Growth 2 Days Meds Allergies and Active Meds Allergies No Known Allergies Allergy (Verified 07/09/24 16:35) Active Meds: Active Medications Generic Name Dose Route Start Last Admin Trade Name Freq PRN Reason Stop Dose Admin Alprazolam 0.5 mg 07/09/24 20:42 07/12/24 08:37 Alprazolam 0.5 Mg Tablet PO 01/05/25 20:41 0.5 mg Q8H PRN Administration Anxiety Amlodipine Besylate 5 mg 07/10/24 09:00 07/12/24 08:37 Amlodipine 5 Mg Tablet PO 07/10/25 08:59 5 mg QAM [facility]EE Administration Atorvastatin Calcium 40 mg 07/09/24 21:00 07/11/24 21:32 Atorvastatin 40 Mg Tablet PO 07/09/25 20:59 40 mg QPM [facility]EEWEE Administration Buspirone HCl 15 mg 07/09/24 21:00 07/12/24 08:36 Buspirone 15 Mg Tablet PO 07/09/25 20:59 15 mg BID PEEWEE Administration Empagliflozin 10 mg 07/10/24 09:00 07/12/24 08:37 Empagliflozin 10 Mg Tablet PO 07/10/25 08:59 10 mg QAM [facility] Administration Ertapenem 1 gm in 100 mls @ 200 mls/hr 07/11/24 12:00 07/12/24 12:26 Invanz IV 200 mls/hr Q24H [facility] Administration Insulin Aspart 0 units 07/09/24 22:00 07/12/24 12:26 Insulin Aspart 300 Units/3 Ml Insuln.Pen SUBCUT 07/09/25 21:59 Not Given TID.WM.[facility] Protocol Losartan Potassium 100 mg 07/10/24 09:00 07/12/24 08:37 Losartan 50 Mg Tablet PO 07/10/25 08:59 100 mg DAILY [facility] Administration Morphine Sulfate 2 mg 07/09/24 20:41 07/12/24 14:14 Morphine Sulfate 2 Mg/Ml Vial IV-PUSH 2 mg Q3H PRN Administration Pain Semaglutide [ 14 mg 07/10/24 09:00 07/12/24 08:45 Rybelsus] 7 Mg PO 07/10/25 08:59 Not Given Tablet DAILY [facility] Ondansetron HCl 4 mg 07/11/24 04:00 07/11/24 13:02 Ondansetron 4 Mg/2 Ml Vial IV-PUSH 07/11/25 03:59 4 mg Q6H PRN Administration Nausea And Vomiting Oxycodone/Acetaminophen 2 tab 07/09/24 20:41 07/12/24 08:36 Oxycodone/Acetaminophen 5-325 Mg Tablet PO 2 tab Q6H PRN Administration Pain Polyethylene Glycol 17 gm 07/10/24 09:00 07/12/24 08:36 Polyethylene Glycol 3350 17 Gm Powd.Pack PO 07/10/25 08:59 17 gm DAILY [facility] Administration Propranolol HCl 80 mg 07/10/24 09:00 07/12/24 08:36 Propranolol Sa.24hr 80 Mg Capsule PO 07/10/25 08:59 80 mg DAILY [facility] Administration Senna/Docusate Sodium 2 tab 07/09/24 21:00 07/12/24 08:36 Sennosides/Docusate 8.6-50mg 1 Tab Tablet PO 07/09/25 20:59 2 tab BID [facility] Administration Sodium Chloride 0 ml 07/09/24 16:35 07/10/24 22:27 Sodium Chloride 0.9 % 10 Ml Syringe IV-PUSH 07/09/25 16:34 10 ml PRN PRN Administration Flush A&P - Hospitalist Assessment/Plan (1) Sepsis: Plan . Documented By: Sen Neri MD 07/12/24 151 Signed By: <Electronically signed by Sen Neri MD> 07/12/24 1514 [facility] Work Phone: 1(626) 707-468509-21-2024 Progress note Author Sen Neri [facility] July 11, 2024 1:47pmNote Date/TimeSept2023 1:47[place] [address] Hospitalist Progress Note Signed Patient: Rod Mathias MR#: [id number] : 1960 Acct:[id number] Age/Sex: 63 / M Adm Date: 4 Loc: 4N Room: [address] [place] [address] Type: ADM IN Attending Dr: Sen Neri MD Copies to: ~ Date of Service: 07/11/2024 Subjective Subjective Narrative: Slowly improving. Still passing some blood, stone fragments and has some difficulty in appropriately emptying the bladder. Did not require a Chaparro catheter yesterday. Awake alert oriented no deficit Heart is regular Lungs are clear Abdomen soft benign Assessment and plan 1.acute pyelonephritis and sepsis in the setting of ureteral manipulation, recent nephrolithiasis and lithotripsy. Cultures suggest presence of multidrug-resistant E. coli. DC ceftriaxone received 2 days, start ertapenem day 1 today Appreciate input from urology?conservative management advised. Symptom control Constipation prophylaxis DVT prophylaxis SCDs Recheck labs in a.m. Continue treatment of his chronic illnesses which include Obesity class I Diabetes type 2 Cerebrovascular disease and history of stroke with right-sided weakness Nephrolithiasis Hypertension Dyslipidemia Restless leg syndrome Exam Physical Exam Vital Signs: Temp Pulse Resp BP Pulse Ox O2 Del Method 98.0 F 72 19 123/74 96 Room Air 07/11/24 11:44 07/11/24 11:44 07/11/24 11:44 07/11/24 11:44 07/11/24 11:44 07/11/24 11:44 Objective Lab Results 07/11/24 06:41 07/11/24 06:41 Microbiology Results Microbiology 07/09/24 17:20 Urine - Clean-Voided Midstream Urine Culture - Preliminary Escherichia coli 07/09/24 18:08 Blood - Left Antecubital Blood Culture - Preliminary No Growth 1 Day 07/09/24 17:25 Blood - Right Antecubital Blood Culture - Preliminary No Growth 1 Day Meds Allergies and Active Meds Allergies No Known Allergies Allergy (Verified 07/09/24 16:35) Active Meds: Active Medications Generic Name Dose Route Start Last Admin Trade Name Freq PRN Reason Stop Dose Admin Alprazolam 0.5 mg 07/09/24 20:42 07/10/24 12:36 Alprazolam 0.5 Mg Tablet PO 01/05/25 20:41 0.5 mg Q8H PRN Administration Anxiety Amlodipine Besylate 5 mg 07/10/24 09:00 07/11/24 08:30 Amlodipine 5 Mg Tablet PO 07/10/25 08:59 5 mg QAM [facility]EE Administration Atorvastatin Calcium 40 mg 07/09/24 21:00 07/10/24 22:21 Atorvastatin 40 Mg Tablet PO 07/09/25 20:59 40 mg QPM [facility] Administration Buspirone HCl 15 mg 07/09/24 21:00 07/11/24 08:30 Buspirone 15 Mg Tablet PO 07/09/25 20:59 15 mg BID [facility]EE Administration Empagliflozin 10 mg 07/10/24 09:00 07/11/24 08:30 Empagliflozin 10 Mg Tablet PO 07/10/25 08:59 10 mg QAM [facility]EE Administration Ertapenem 1 gm in 100 mls @ 200 mls/hr 07/11/24 12:00 Invanz IV Q24H [facility] Insulin Aspart 0 units 07/09/24 22:00 07/11/24 09:12 Insulin Aspart 300 Units/3 Ml Insuln.Pen SUBCUT 07/09/25 21:59 1 units TID.WM.HS [facility]EEWEE Administration Protocol Losartan Potassium 100 mg 07/10/24 09:00 07/11/24 08:30 Losartan 50 Mg Tablet PO 07/10/25 08:59 100 mg DAILY [facility] Administration Morphine Sulfate 2 mg 07/09/24 20:41 07/11/24 13:02 Morphine Sulfate 2 Mg/Ml Vial IV-PUSH 2 mg Q3H PRN Administration Pain Semaglutide [ 14 mg 07/10/24 09:00 07/11/24 12:55 Rybelsus] 7 Mg PO 07/10/25 08:59 Not Given Tablet DAILY [facility] Ondansetron HCl 4 mg 07/11/24 04:00 07/11/24 13:02 Ondansetron 4 Mg/2 Ml Vial IV-PUSH 07/11/25 03:59 4 mg Q6H PRN Administration Nausea And Vomiting Oxycodone/Acetaminophen 2 tab 07/09/24 20:41 07/11/24 04:12 Oxycodone/Acetaminophen 5-325 Mg Tablet PO 2 tab Q6H PRN Administration Pain Polyethylene Glycol 17 gm 07/10/24 09:00 07/11/24 08:30 Polyethylene Glycol 3350 17 Gm Powd.Pack PO 07/10/25 08:59 17 gm DAILY [facility] Administration Propranolol HCl 80 mg 07/10/24 09:00 07/11/24 08:30 Propranolol Sa.24hr 80 Mg Capsule PO 07/10/25 08:59 80 mg DAILY [facility] Administration Senna/Docusate Sodium 2 tab 07/09/24 21:00 07/11/24 08:30 Sennosides/Docusate 8.6-50mg 1 Tab Tablet PO 07/09/25 20:59 2 tab BID [facility]EE Administration Sodium Chloride 0 ml 07/09/24 16:35 07/10/24 22:27 Sodium Chloride 0.9 % 10 Ml Syringe IV-PUSH 07/09/25 16:34 10 ml PRN PRN Administration Flush A&P - Hospitalist Assessment/Plan (1) Sepsis: Plan . Documented By: Sen Neri MD 07/11/241345 Signed By: <Electronically signed by Sen Neri MD> 07/11/241346 [facility] Work Phone: 1(115) 616-814809-21-2024 Consult note Author Perez Rivera [facility] July 11, 2024 7:44amNote Date/TimeSept2023 7:44[place] [address] Urology Consult Note Signed Patient: Rod Mathias MR#: [id number] : 1960 Acct:[id number] Age/Sex: 63 / M Adm Date: 4 Loc: 4N Room: [address] [place] [address] Type: ADM IN Attending Dr: Sen Neri MD Copies to: MD Perez Staley MD Robert L Hill, MD~ History of Present Illness Consult Details Consult Date: 07/11/2024 Requesting Provider: Sen Neri MD HPI: recent stone surgery and stent removal present thru er w/ luts and uti---ucx growing 100k ecoli on rocephin now was not voiding 07/10/24 and bladder scan was >999ml but overnight began voiding (uop 900ml) and repeat pvr 370ml creat around baseline at 1.7; ct a/p 07/09/24 reviewed and bladder appeared only mild distended and no stones PMFSH Medical History (Updated 07/11/24 @ 07:42 by Perez Rivera MD) Arthritis hips Problem List clean-up per request of Phys. EHR Cmte Back pain was told possible fracture vertebra Problem List clean-up per request of Phys. EHR Cmte Restless legs left leg Numbness and tingling of leg left leg CKD (chronic kidney disease) stage 3 Problem List clean-up per request of Phys. 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 EHR Cmte Hx of renal calculi Hyperlipidemia Hypertension Surgical History (Updated 07/09/24 @ 19:08 by Gabi Lazo RN) History of renal stent H/O colonoscopy H/O hernia repair umbilical Hx of cystoscopy stone basket Problem List clean-up per request of Phys. EHR Cmte Hx of cervical spine surgery anterior Problem List clean-up per request of Phys. EHR Cmte Hx of lithotripsy Family History Brother Diabetes Mother HTN (hypertension) Father Medical history unknown Social History Smoking Status: Former smoker Tobacco Type: cigarettes Substance Use Type: None Substance Abuse Comment: occasional social alcohol use Meds Medications and Allergies Allergies No Known Allergies Allergy (Verified 07/09/24 16:35) Home Medications amlodipine 5 mg tablet 5 mg PO QAM htn 02/22/21 [History Confirmed 07/09/24] canagliflozin 100 mg tablet (Invokana) 100 mg PO QAM DM 05/07/22 [History Confirmed 07/09/24] atorvastatin 40 mg tablet (Lipitor) 40 mg PO QPM hyperlipidemia 07/12/22 [History Confirmed 07/09/24] aspirin 81 mg capsule 81 mg PO QAM 10/02/22 [History Confirmed 07/09/24] hydrocodone 5 mg-acetaminophen 325 mg tablet 1 - 2 tab PO Q4-6H PRN Pain 10/02/22 [History Confirmed 07/09/24] semaglutide 7 mg tablet (Rybelsus) 14 mg PO DAILY DM 02/05/23 [History Confirmed 07/09/24] alprazolam 0.5 mg tablet 0.5 mg PO Q8H PRN Anxiety 06/07/23 [History Confirmed 07/09/24] buspirone 15 mg tablet 15 mg PO BID 06/07/23 [History Confirmed 07/09/24] losartan 100 mg tablet 100 mg PO DAILY 06/07/23 [History Confirmed 07/09/24] propranolol 80 mg capsule,24 hr,extended release 80 mg PO DAILY 07/24/23 [History Confirmed 07/09/24] Exam Physical Exam Vital Signs: Temp Pulse Resp BP Pulse Ox O2 Del Method 98.5 F 83 12 146/80 H 92 L Room Air 07/11/24 04:09 07/11/24 03:52 07/11/24 03:52 07/11/24 03:52 07/11/24 03:52 07/11/24 04:00 Results - Urology Labs 07/11/24 06:41 07/10/24 05:54 Labs: Laboratory Results - Last 48 hrs. 07/11/24 06:41: Corrected WBC 16.5 H, Uncorrected WBC Count 16.5 H, RBC 3.97, Hgb 12.1 L, Hct 36.4 L, MCV 91.8, MCH 30.5, MCHC 33.2, RDW 14.9 H, Plt Count 207, MPV 8.5, Neut % (Auto) 83.0, Lymph % (Auto) 7.4, [place] % (Auto) 9.4, Eos % (Auto) 0.1, Baso % (Auto) 0.1, Nucleat RBC Rel Count 0.0, Neut # (Auto) 13.7 H, Lymph # (Auto) 1.2, [place] # (Auto) 1.5 H, Eos # (Auto) 0.0, Baso # (Auto) 0.0 07/10/24 22:37: POC Glucose 140 07/10/24 16:00: POC Glucose 180 07/10/24 11:33: POC Glucose 151 07/10/24 07:37: POC Glucose 107 07/10/24 05:54: Corrected WBC 19.7 H, Uncorrected WBC Count 19.7 H, RBC 4.22, Hgb 12.8 L, Hct 38.9,MCV 92.0, MCH 30.2, MCHC 32.9, RDW 15.2 H, Plt Count 204, MPV 8.5, Neut % (Auto) 81.1, Lymph % (Auto) 8.3, [place] % (Auto) 10.3, Eos % (Auto) 0.0, Baso % (Auto) 0.3, Nucleat RBC Rel Count 0.0, Neut # (Auto) 16.0 H, Lymph # (Auto) 1.6, [place] # (Auto) 2.0 H, Eos # (Auto) 0.0, Baso # (Auto) 0.1, PHA Creatinine Clear 53.87, Sodium 137, Potassium 3.9, Chloride 111 H, Carbon Dioxide 18.5 L, Anion Gap 11.4, BUN 22, Creatinine 1.73 H, Est GFR (CKD-EPI) 43.266, Glucose 109 H, Calcium 8.4 L 07/09/24 22:25: POC Glucose 112 07/09/24 21:58: Lactic Acid 1.9 07/09/24 18:24: Corrected WBC 20.6 H, Uncorrected WBC Count 20.6 H, RBC 4.18, Hgb 12.6 L, Hct 38.7 L, MCV 92.6, MCH 30.1, MCHC 32.5, RDW 15.3 H, Plt Count 210, MPV 8.3, Neut % (Auto) 83.7, Lymph % (Auto) 5.9, [place] % (Auto) 10.3, Eos % (Auto) 0.0, Baso % (Auto) 0.1, Nucleat RBC Rel Count 0.0, Neut #(Auto) 17.2 H, Lymph # (Auto) 1.2, [place] # (Auto) 2.1 H, Eos # (Auto) 0.0, Baso # (Auto) 0.0, Monocyte Dist Width 22.99 H, Platelet Estimate Normal, Plt Morphology Comment Normal, RBC Morphology Normal, PHA Creatinine Clear 47.48, Sodium 138, Potassium4.0, Chloride 106, Carbon Dioxide 20.1 L, Anion Gap 15.9 H, BUN 22, Creatinine 1.93 H, Est GFR (CKD-EPI) 37.944, Glucose 152 H, Lactic Acid 2.2 H*, Calcium 9.3, Total Bilirubin 1.2 H, AST 13, ALT 20, Alkaline Phosphatase 85, Total Protein 7.7, Albumin 4.4, Globulin 3.3, Albumin/Globulin Ratio 1.3 07/09/24 17:20: Urine Color Yellow, Urine Appearance Cloudy A, Urine pH 5.5, Ur Specific [place] 1.022, Urine Protein 50 H, Urine Glucose (UA) >=1000 H, Urine Ketones 1+ H, Urine Occult Blood 2+ H, Urine Nitrite Positive H, Urine BilirubinNegative, Urine Urobilinogen Normal, Ur Leukocyte Esterase 4+ H, Urine RBC 10-19H, Urine WBC Innumerable H, Urine WBC Clumps Many H, Ur Squamous Epith Cells N/A, Urine Bacteria 1+ H, Hyaline Casts None, Urine Mucus Rare Microbiology Microbiology: 07/09/24 18:08 Blood - Left Antecubital Blood Culture - Preliminary No Growth 1 Day 07/09/24 17:25 Blood - Right Antecubital Blood Culture - Preliminary No Growth 1 Day 07/09/24 17:20 Urine - Clean-Voided Midstream Urine Culture - Preliminary Escherichia coli Imaging CT scan - abdomen: report reviewed Assessment/Plan (1) UTI (urinary tract infection): Code(s): N39.0 - Urinary tract infection, site not specified (2) WILD (acute kidney injury): Code(s): N17.9 - Acute kidney failure, unspecified (3) BPH (benign prostatic hyperplasia): Code(s): N40.0 - Benign prostatic hyperplasia without lower urinary tract symptoms Plan recent stone surgery and stent removal present thru er w/ luts and uti---ucx growing 100k ecoli on rocephin now was not voiding 07/10/24 and bladder scan was >999ml but overnight began voiding (uop 900ml) and repeat pvr 370ml creat around baseline at 1.7; ct a/p 07/09/24 reviewed and bladder appeared only mild distended and no stones overall pt is voiding and stable; refuses new chaparro attempts would tx with 10days abx total in this case add flomax Documented By: Perez Rivera MD 07/11/24 0740 Signed By: <Electronically signed by Perez Rivera MD> 07/11/24 0744 [facility] Work Phone: 1(468) 123-138209-20-2024 Progress note Author Laurie Lacey [facility] July 10, 2024 9:14pmNote Date/TimeSept2023 9:02pm[place] [address] Event Note Signed Patient: Rod Mathias MR#: [id number] : 1960 Acct:[id number] Age/Sex: 63 / M Adm Date: 4 Loc: Room: [address] [place] [address] Type: ADM IN Attending Dr: Sen Neri MD Copies to: MD Laurie Staley APRN Robert L Hill, MD~ Status Event Note Event Note DATE OF EVENT: 07/10/24 TIME OF EVENT: 21:00 EVENT DETAILS: Contacted by nursing unable to place chaparro catheter today after multiple attempts. Bladder scanned for 960cc at this time. Patient has been able to void small amounts at a time. In room to speak withpatient, he is refusing catheter placement tonight, wants to wait till am. Urology consulted, updated over the phone, will see patient in am. Patient updated on plan of care and verbalized understanding. TIME W/PATIENT (# MINS): 15 Documented By: Laurie Lacey APRN 07/10/242099 Signed By: <Electronically signed by CYDNEY Lacey> 07/10/242113 [facility] Work Phone: 1([phone]) 962-842209-20-2024 Progress note Author Sen Neri [facility] July 10, 2024 3:33pmNote Date/TimeSept2023 3:33pm[place] [address] Hospitalist Progress Note Signed Patient: Rod Mathias MR#: [id number] : 1960 Acct:[id number] Age/Sex: 63 / M Adm Date: 4 Loc: 4N Room: [address] [place] [address] Type: ADM IN Attending Dr: Sen Neri MD Copies to: ~ Date of Service: 07/10/2024 Subjective Subjective Narrative: Patient is overall better today. Hematuria is improved. His urinating easier and continues to pass stone fragments. Flank pain persist on the right side butis improved Awake alert oriented no deficit Heart is regular Lungs are clear Abdomen soft benign Assessment and plan 1.acute pyelonephritis and sepsis in the setting of ureteral manipulation, recent nephrolithiasis and lithotripsy. Continue IV fluid administration Treatment with ceftriaxone day 2 Symptom control Constipation prophylaxis DVT prophylaxis SCDs Recheck labs in a.m. Continue treatment of his chronic illnesses which include Obesity class I Diabetes type 2 Cerebrovascular disease and history of stroke with right-sided weakness Nephrolithiasis Hypertension Dyslipidemia Restless leg syndrome Exam Physical Exam Vital Signs: Temp Pulse Resp BP Pulse Ox O2 Del Method 98.5 F 80 12 109/68 93 L Room Air 07/10/24 12:35 07/10/24 12:35 07/10/24 12:35 07/10/24 12:35 07/10/24 12:35 07/10/24 08:20 Objective Lab Results 07/10/24 05:54 07/10/24 05:54 Microbiology Results Microbiology 07/09/24 17:20 Urine - Clean-Voided Midstream Urine Culture - Preliminary Escherichia coli Meds Allergies and Active Meds Allergies No Known Allergies Allergy (Verified 07/09/24 16:35) Active Meds: Active Medications Generic Name Dose Route Start Last Admin Trade Name Freq PRN Reason Stop Dose Admin Alprazolam 0.5 mg 07/09/24 20:42 07/10/24 12:36 Alprazolam 0.5 Mg Tablet PO 01/05/25 20:41 0.5 mg Q8H PRN Administration Anxiety Amlodipine Besylate 5 mg 07/10/24 09:00 07/10/24 10:51 Amlodipine 5 Mg Tablet PO 07/10/25 08:59 5 mg QAM PEEWEE Administration Atorvastatin Calcium 40 mg 07/09/24 21:00 07/09/24 22:32 Atorvastatin 40 Mg Tablet PO 07/09/25 20:59 40 mg QPM PEEWEE Administration Buspirone HCl 15 mg 07/09/24 21:00 07/10/24 09:41 Buspirone 15 Mg Tablet PO 07/09/25 20:59 15 mg BID PEEWEE Administration Empagliflozin 10 mg 07/10/24 09:00 07/10/24 10:51 Empagliflozin 10 Mg Tablet PO 07/10/25 08:59 10 mg QAM PEEWEE Administration Ceftriaxone Sodium 2 gm in 50 mls @ 100 mls/hr 07/10/24 21:00 Rocephin IV Q24H PEEWEE Parenteral Electrolytes 1,000 mls @ 100 mls/hr 07/09/24 21:00 07/10/24 10:51 Plasma-Lyte A Ph 7.4 IV 07/09/25 20:59 100 mls/hr .Q10H PEEWEE Administration Insulin Aspart 0 units 07/09/24 22:00 07/10/24 12:36 Insulin Aspart 300 Units/3 Ml Insuln.Pen SUBCUT 07/09/25 21:59 1 units TID.WM.HS PEEWEE Administration Protocol Losartan Potassium 100 mg 07/10/24 09:00 07/10/24 10:51 Losartan 50 Mg Tablet PO 07/10/25 08:59 100 mg DAILY PEEWEE Administration Morphine Sulfate 2 mg 07/09/24 20:41 07/10/24 12:36 Morphine Sulfate 2 Mg/Ml Vial IV-PUSH 2 mg Q3H PRN Administration Pain Semaglutide [ 14 mg 07/10/24 09:00 07/10/24 10:52 Rybelsus] 7 Mg PO 07/10/25 08:59 Not Given Tablet DAILY PEEWEE Oxycodone/Acetaminophen 2 tab 07/09/24 20:41 07/10/24 09:41 Oxycodone/Acetaminophen 5-325 Mg Tablet PO 2 tab Q6H PRN Administration Pain Polyethylene Glycol 17 gm 07/10/24 09:00 07/10/24 09:41 Polyethylene Glycol 3350 17 Gm Powd.Pack PO 07/10/25 08:59 17 gm DAILY PEEWEE Administration Propranolol HCl 80 mg 07/10/24 09:00 07/10/24 09:41 Propranolol Sa.24hr 80 Mg Capsule PO 07/10/25 08:59 80 mg DAILY PEEWEE Administration Senna/Docusate Sodium 2 tab 07/09/24 21:00 07/10/24 09:41 Sennosides/Docusate 8.6-50mg 1 Tab Tablet PO 07/09/25 20:59 2 tab BID PEEWEE Administration Sodium Chloride 0 ml 07/09/24 16:35 07/10/24 03:06 Sodium Chloride 0.9 % 10 Ml Syringe IV-PUSH 07/09/25 16:34 10 ml PRN PRN Administration Flush A&P - Hospitalist Assessment/Plan (1) Sepsis: Plan . Documented By: Sen Neri MD 07/10/241531 Signed By: <Electronically signed by Sen Neri MD> 07/10/243 [facility] Work Phone: [phone]) 527-200809-19-2024 History and physical note Author Sen Neri [facility] July 09, 2024 8:47pmNote Date/TimeSept2023 8:47[place] [address] Hospitalist H&P Signed Patient: Rod Mathias MR#: [id number] : 1960 Acct:[id number] Age/Sex: 63 / M Adm Date: 4 Loc: 4N Room: [address] [place] [address] Type: ADM IN Attending Dr: Sen Neri MD Copies to: MD Ganga Staley MD~ HPI DATE OF EXAMINATION: 07/09/24 HISTORY OF PRESENT ILLNESS: Patient is 63-year-old male. He presents to the emergency department with feverchills hematuria. Hehad a longstanding history of kidney stones. Couple of weeks ago he was admitted and treated in [facility] for a 1 cm right- sided kidney stone. Stent was inserted by Dr. Vincent. Approximately 10 days later the patient underwent outpatient lithotripsy which was uncomplicated. About 2 days prior to current presentation he was seen again to have the ureteral stent removed. At that point in time he was doing well. Shortly afterthe stent was removed, he developed severe hematuria, severe flank pain, fever, chills, decreased appetite. He presented today to the emergency department withthese complaints. Past medical history Obesity class I Diabetes type 2 Cerebrovascular disease and history of stroke with right-sided weakness Nephrolithiasis Hypertension Dyslipidemia Restless leg syndrome 10 point review of systems negative except as noted Physical exam P patient seen in the ER Patient appears comfortable, in no distress. Skin is normally colored, no icterus, cyanosis or edema noted. Capillary refill is normal. Joints are without any effusion. Abdomen is soft, benign, no rebound or rigidity. No organomegaly. Bowel sounds present. Heart regular, no gallop, rub or JVD. Peripheral pulses present bilaterally. Lungs are clear to auscultation, no rales, ronchi or wheezes. HENT normal Neurological: Patient is awake. Cognition is normal. Cranial nerves are intact. Power is symmetric all extremities, with no focal motor deficit identified on a cursory exam. Psych: affect is normal. EKG Labs imaging reviewed Assessment and plan 1.acute pyelonephritis and sepsis in the setting of ureteral manipulation, recent nephrolithiasis and lithotripsy. Continue IV fluid administration Treatment with ceftriaxone Periodic bladder scan to rule out retention. Current CT imaging without contrast shows no urinary tract obstruction at any level. Symptom control Constipation prophylaxis DVT prophylaxis SCDs Recheck labs in a.m. Continue treatment of his chronic illnesses which include Obesity class I Diabetes type 2 Cerebrovascular disease and history of stroke with right-sided weakness Nephrolithiasis Hypertension Dyslipidemia Restless leg syndrome [facility] Medical History (Updated 07/09/24 @ 19:59 by Rosa Mccracken APRN) Arthritis hips Problem List clean-up per request of Phys. EHR Cmte Back pain was told possible fracture vertebra Problem List clean-up per request of Phys. EHR Cmte Restless legs left leg Numbness and tingling of leg left leg CKD (chronic kidney disease) stage 3 Problem List clean-up per request of Phys. 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 EHR Cmte Hx of renal calculi Hyperlipidemia Hypertension Surgical History (Updated 07/09/24 @ 19:08 by Gabi Lazo RN) History of renal stent H/O colonoscopy H/O hernia repair umbilical Hx of cystoscopy stone basket Problem List clean-up per request of Phys. EHR Cmte Hx of cervical spine surgery anterior Problem List clean-up per request of Phys. EHR Cmte Hx of lithotripsy Family History Brother Diabetes Mother HTN (hypertension) Father Medical history unknown Social History Smoking Status: Former smoker Tobacco Type: cigarettes Substance Use Type: None Substance Abuse Comment: occasional social alcohol use Meds Medications and Allergies Allergies No Known Allergies Allergy (Verified 07/09/24 16:35) Home Medications amlodipine 5 mg tablet 5 mg PO QAM htn 02/22/21 [History Confirmed 07/09/24] canagliflozin 100 mg tablet (Invokana) 100 mg PO QAM DM 05/07/22 [History Confirmed 07/09/24] atorvastatin 40 mg tablet (Lipitor) 40 mg PO QPM hyperlipidemia 07/12/22 [History Confirmed 07/09/24] aspirin 81 mg capsule 81 mg PO QAM 10/02/22 [History Confirmed 07/09/24] hydrocodone 5 mg-acetaminophen 325 mg tablet 1 - 2 tab PO Q4-6H PRN Pain 10/02/22 [History Confirmed 07/09/24] semaglutide 7 mg tablet (Rybelsus) 14 mg PO DAILY DM 02/05/23 [History Confirmed 07/09/24] alprazolam 0.5 mg tablet 0.5 mg PO Q8H PRN Anxiety 06/07/23 [History Confirmed 07/09/24] buspirone 15 mg tablet 15 mg PO BID 06/07/23 [History Confirmed 07/09/24] losartan 100 mg tablet 100 mg PO DAILY 06/07/23 [History Confirmed 07/09/24] propranolol 80 mg capsule,24 hr,extended release 80 mg PO DAILY 07/24/23 [History Confirmed 07/09/24] Exam Physical Exam Vital Signs: Temp Pulse Resp BP Pulse Ox O2 Del Method 98.8 F 96 20 128/64 94 L Room Air 07/09/24 20:36 07/09/24 20:36 07/09/24 20:36 07/09/24 20:36 07/09/24 20:36 07/09/24 20:36 Results - Hospitalist H&P Lab Results Labs: Laboratory Last Values Corrected WBC 20.6 X10E3/uL (4.1-10.5) H 07/09/24 18:24 Uncorrected WBC Count 20.6 x10E3/uL (4.1-10.5) H 07/09/24 18:24 RBC 4.18 X10E6/uL (3.90-5.60) 07/09/24 18:24 Hgb 12.6 g/dL (13.0-17.0) L 07/09/24 18:24 Hct 38.7 % (38.8-50.0) L 07/09/24 18:24 MCV 92.6 fl (83.5-101) 07/09/24 18:24 MCH 30.1 pg (27.5-35.2) 07/09/24 18:24 MCHC 32.5 g/dL (32.5-35.6) 07/09/24 18:24 RDW 15.3 % (12.0-14.8) H 07/09/24 18:24 Plt Count 210 x10E3/uL (150-450) 07/09/24 18:24 MPV 8.3 fl (6.6-10.1) 07/09/24 18:24 Neut % (Auto) 83.7 % (.) 07/09/24 18: Lymph % (Auto) 5.9 % (.) 07/09/24 18:24 [place] % (Auto) 10.3 % (.) 07/09/24 18:24 Eos % (Auto) 0.0 % (.) 07/09/24 18: Baso % (Auto) 0.1 % (.) 07/09/24 18:24 Nucleat RBC Rel Count 0.0 /100 WBC (0-0.5) 07/09/24 18:24 Neut # (Auto) 17.2 x10E3/uL (1.8-7.7) H 07/09/24 18:24 Lymph # (Auto) 1.2 x10E3/uL (1.00-4.8) 07/09/24 18:24 [place] # (Auto) 2.1 x10E3/uL (0.0-0.8) H 07/09/24 18:24 Eos # (Auto) 0.0 x10E3/uL (0.0-0.45) 07/09/24 18:24 Baso # (Auto) 0.0 x10E3/uL (0.0-0.2) 07/09/24 18:24 Monocyte Dist Width 22.99 % (0.00-20.00) H 07/09/24 18:24 Platelet Estimate Normal (Normal) 07/09/24 18:24 Plt Morphology Comment Normal (Normal) 07/09/24 18:24 RBC Morphology Normal (Normal) 07/09/24 18:24 PHA Creatinine Clear 47.48 07/09/24 18:24 Sodium 138 mmol/L (136-145) 07/09/24 18:24 Potassium 4.0 mmol/L (3.5-5.1) 07/09/24 18:24 Chloride 106 mmol/L (98-107) 07/09/24 18:24 Carbon Dioxide 20.1 mmol/L (21.0-31.0) L 07/09/24 18:24 Anion Gap 15.9 mEq/L (6.0-15.0) H 07/09/24 18:24 BUN 22 mg/dL (7-25) 07/09/24 18:24 Creatinine 1.93 mg/dL (0.70-1.30) H 07/09/24 18:24 Est GFR (CKD-EPI) 37.944 mL/Min 07/09/24 18:24 Glucose 152 mg/dL (70-100) H 07/09/24 18:24 Lactic Acid 2.2 mmol/L (0.5-2.2) H* 07/09/24 18:24 Calcium 9.3 mg/dL (8.6-10.3) 07/09/24 18:24 Total Bilirubin 1.2 mg/dl (0.3-1.0) H 07/09/24 18:24 AST 13 U/L (13-39) 07/09/24 18:24 ALT 20 U/L (7-52) 07/09/24 18:24 Alkaline Phosphatase 85 U/L (34-104) 07/09/24 18:24 Total Protein 7.7 gm/dL (6.4-8.9) 07/09/24 18:24 Albumin 4.4 gm/dL (3.5-5.7) 07/09/24 18:24 Globulin 3.3 gm/dL 07/09/24 18:24 Albumin/Globulin Ratio 1.3 07/09/24 18:24 Urine Color Yellow (Yellow) 07/09/24 17:20 Urine Appearance Cloudy (Clear) A 07/09/24 17:20 Urine pH 5.5 (5.0-9.0) 07/09/24 17:20 Ur Specific [place] 1.022 (1.001-1.030) 07/09/24 17:20 Urine Protein 50 mg/dL (Negative) H 07/09/24 17:20 Urine Glucose (UA) >=1000 mg/dL (Normal) H 07/09/24 17:20 Urine Ketones 1+ (Negative) H 07/09/24 17:20 Urine Occult Blood 2+ (Negative) H 07/09/24 17:20 Urine Nitrite Positive (Negative) H 07/09/24 17:20 Urine Bilirubin Negative (Negative) 07/09/24 17:20 Urine Urobilinogen Normal mg/dL (Normal) 07/09/24 17:20 Ur Leukocyte Esterase 4+ (Negative) H 07/09/24 17:20 Urine RBC 10-19 /HPF (0-4) H 07/09/24 17:20 Urine WBC Innumerable /HPF (0-4) H 07/09/24 17:20 Urine WBC Clumps Many /LPF (None Seen) H 07/09/24 17:20 Ur Squamous Epith Cells N/A 07/09/24 17:20 Urine Bacteria 1+ /HPF (None Seen) H 07/09/24 17:20 Hyaline Casts None /LPF (0-8) 07/09/24 17:20 Urine Mucus Rare /LPF 07/09/24 17:20 Assessment & Plan Assessment/Plan (1) Sepsis: Plan . IP vs OBS Justification Based on differential dx, clinical care plan, and risk of adverse events, if untreated, in my clinical judgement this patient requires an acute care setting as: INPATIENT because of an expectation ofan over 2 midnight stay. Estimated length of stay (# of days): 2 Documented By: Sen Neri MD 07/09/242042 Signed By: <Electronically signed by Sen Neri MD> 07/09/242046 [facility] Work Phone: 1([phone]) 500-376009-17-2024 Evaluation + Plan note Diagnostic Tests Pending * PSA Total 07/07/24 [facility] 09-17-2024 Hospital Discharge instructions Patient Education 07/07/2024 10:14:34 Dietary Guidelines to Help Prevent Kidney Stones Dietary Guidelines to Help Prevent Kidney Stones Kidney stones are deposits of minerals and salts that form inside your kidneys. Your risk of developing kidney stones may be greater depending on your diet, your lifestyle, the medicines you take, and whether you have certain medical conditions. Most people can lower their risks of developing kidney stones by following these dietary guidelines. Your dietitian may give you more specific instructions depending on your overall health and the type of kidney stones you tend to develop. What are tips for following this plan? Reading food labels Choose foods with no salt added or low-salt labels. Limit your salt (sodium) intake to less than 1,500 mg a day. Choose foods with calcium for each meal and snack. Try to eat about 300 mg of calcium at each meal.Foods that contain 200 500 mg of calcium a serving include: ?8 oz (237 mL) of milk, xkaqdto-lscxmwnjbtya-rtiwb milk, and calcium- fortifiedfruit juice. Calcium-fortified means that calcium has been added to these drinks. ?8 oz (237 mL) of kefir, yogurt, and soy yogurt. ?4 oz (114 g) of tofu. ?1 oz (28 g) of cheese. ?1 cup (150 g) of dried figs. ?1 cup (91 g) of cooked broccoli. ?One 3 oz (85 g) can of sardines or mackerel. Most people need 1,000 1,500 mg of calcium a day. Talk to your dietitian about how much calcium is recommended for you. Shopping Buy plenty of fresh fruits and vegetables. Most people do not need to avoid fruits and vegetables, even if these foods contain nutrients that may contribute to kidney stones. When shopping for convenience foods, choose: ?Whole pieces of fruit. ?Pre-made salads with dressing on the side. ?Low-fat fruit and yogurt smoothies. Avoid buying frozen meals or prepared deli foods. These can be high in sodium. Look for foods with live cultures, such as yogurt and kefir. Choose high-fiber grains, such as whole-wheat breads, oat bran, and wheat cereals. Cooking Do not add salt to food when cooking. Place a salt shaker on the table and allow each person to addtheir own salt to taste. Use vegetable protein, such as beans, textured vegetable protein (TVP), or tofu, instead of meat inpasta, casseroles, and soups. Meal planning Eat less salt, if told by your dietitian. To do this: ?Avoid eating processed or pre-made food. ?Avoid eating fast food. Eat less [...] fish, or seafood. ?When you prepare animal proteins, cut pieces into small portion sizes. For most meat and fish, oneserving is about the size of the palm of your hand. Eat at least five servings of fresh fruits and vegetables each day. To do this: ?Keep fruits and vegetables on hand for snacks. ?Eat one piece of fruit or a handful of berries with breakfast. ?Have a salad and fruit at lunch. ?Have two kinds of vegetables at dinner. You may be told to limit foods that are high in a substance called oxalate. These include: ?Spinach (cooked), rhubarb, beets, sweet potatoes, and Guatemalan chard. ?Peanuts. ?Potato chips, luxembourgish fries, and baked potatoes with skin on. ?Nuts and nut products. ?Chocolate. If you regularly take a diuretic medicine, make sure to eat at least 1 or 2 servings of fruits or vegetables that are high in potassium each day. These include: ?Avocado. ?Banana. ?[place], prune, carrot, or tomato juice. ?Baked potato. ?Cabbage. ?Beans and split peas. Lifestyle Drink enough fluid to keep your urine pale yellow. This is the most important thing you can do. Spread your fluid intake throughout the day. If you drink alcohol: ?Limit how much you have to: ?0 1 drink a day for women who are not . ?0 2 drinks a day for men. ?Know how much alcohol is in your drink. In the [place] one drink equals one 12 oz bottle of beer (355 mL), one 5 oz glass of wine (148 mL), or one 1 oz glass of hard liquor (44 mL). Lose weight if told by your health care provider. Work with your dietitian to find an eating plan and weight loss strategies that work best for you. General information Talk to your health care provider and dietitian about taking daily supplements. Depending on your health and the cause of your kidney stones, you may be told: ?Do not take high-dose supplements of vitamin C (1,000 mg a day or more). ?To take a calcium supplement. ?To take a daily probiotic supplement. ?To take other supplements such as magnesium, fish oil, or vitamin B6. Take ohmg-fhk-ccrdmjb and prescription medicines only as told by your health care provider. These include supplements. What foods should I limit? Limit your intake of the following foods, or eat them as told by your dietitian. Vegetables Spinach. Rhubarb. Beets. Canned vegetables. Pickles. Olives. Baked potatoes with skin. Grains Wheat bran. Baked goods. Salted crackers. Cereals high in sugar. Meats and other proteins Nuts. Nut butters. Large portions of meat, poultry, or fish. Salted, precooked, or cured meats, such as sausages, meat loaves, and hot dogs. Dairy Cheeses. Beverages Regular soft drinks. Regular vegetable juice. Seasonings and condiments Seasoning blends with salt. Salad dressings. Soy sauce. Ketchup. Barbecue sauce. Other foods Canned soups. Canned pasta sauce. Casseroles. Pizza. Lasagna. Frozen meals. Potato chips. Fijian fries. The items listed above may not be a complete list of foods and beverages you should limit. Contact a dietitian for more information. What foods should I avoid? Talk to your dietitian about specific foods you should avoid based on the type of kidney stones youhave and your overall health. Fruits Grapefruit. The item listed above may not be a complete list of foods and beverages you should avoid. Contact adietitian for more information. Summary Kidney stones are deposits of minerals and salts that form inside your kidneys. You can lower your risk of kidney stones by making changes to your diet. The most important thing you can do is drink enough fluid. Drink enough fluid to keep your urine pale yellow. Talk to your dietitian about how much calcium you should have each day, and eat less salt and animal protein as told by your dietitian. This information is not intended to replace advice given to you by your health care provider. Make sure you discuss any questions you have with your health care provider. Document Revised: 01/17/2023 Document Reviewed: 01/17/2023 [employer] Patient Education 2023 [employer]. Follow Up Care 07/03/2024 12:53:28 With:KUMAR HAYS, Mark Anthony Child, URL Address: [facility] [address] [place] [address]- When: Unknown [facility] [phone] History of Present illness Narrative* Soraya Hawk, TARA - 06/17/2024 1:00 PM EDT Images from the original note were not included. Rod Mathias is a 63 y.o. male presents with chief complaint of 3 Month Follow-up and Hospital Follow-up ([facility] 06/05, dx: hydronephrosis) HPI: Lab drawn PTV, he did not have this done. He went to ER for complaints of right flank pain. He has a kidney stone on the right. He reports that he was kept for evaluation. He was discharged with Keflex and Vesicare. He reports the Vesicare does help. Kidney stone is 10mm and had a stent placed per by Dr. Vincent. He is scheduled 06/25/2024 at [facility] for lithotripsy. History of Present Illness The patient presents for evaluation of multiple medical concerns. He reports that he has a kidney stone during his recent hospital visit, no lithotripsy was done despite having undergone lithotripsy in the past. A stent was placed instead, which is scheduled for removal in a few weeks. He expresses dissatisfaction with the care received at the hospital, as he wasunable to consult with his regular physician, Dr. Heath. He also mentions an incident where he had to wait overnight for an x-ray due to a broken machine. An ultrasound revealed a large stone in an unfavorable location. Initially, he was given minimal pain medication, but the dosage was increased after the size and location of the stone were determined. He was administered morphine and Dilaudid, which effectively managed his pain. However, he continues to experience kidney pain and is currently taking hydrocodone four times daily for back pain. He anticipates a high A1c level due to his weight of 240 pounds. He has been experiencing a lack ofappetite and has made dietary changes, including eliminating M & Ms from his diet. Despite these efforts, he has not been able to lose weight. I have reviewed and reconciled the history and medication list with the patient today. Flowsheet Row Patient Outreach from 06/09/2024 in [facility] with Rajani Bran MA Discharge Information ED, Hospital or Half-Way Facility Discharge? Hospital [DX: Intractable abd pain, CKD, hydronephrosis] Patient has been contacted within two business days of discharge Yes Discharge Date 06/05/24 [Admit: 06/04] Discharge Hospital [facility] Discharged To: Home Setting Engagement Medications Discharge medications reviewed and reconciled from hospital? Yes [Started: Cephalexine 500 1 tab BID, Solifenacin 10mg daily] Is the patient having any side effects they believe may be caused by any medication additions or changes? No Does the patient have all medications ordered at discharge? Yes Nursing Interventions Nurse provided patient education Is the patient taking all medications as directed (includes completed medication regime)? Yes Nursing Interventions Nurse provided patient education Appointments Does the patient have a primary care provider? Yes [06/17 [facility] visit.] Nursing Interventions Verified appointment date/time/provider Nursing Interventions Advised patient to keep appointment Self Management Patient Teaching Does the patient have access to their discharge instructions? Yes Nursing Interventions Reviewed instructions with patient What is the patient's perception of their health status since discharge? Improving Is the patient/caregiver able to teach back the hierarchy of who to call/visit for symptoms/problems? PCP, Specialist, Home Health nurse, Urgent Care, ED, 911 Yes Wrap Up Wrap Up Additional Comments Cystoscopy, CT abd/pelvis, Labs, UA HISTORIES: PAST MEDICAL HISTORY: Past Medical History: Diagnosis Date Anxiety Chronic kidney disease, stage 3a (HCC) ([facility]) Essential hypertension ([facility]/HCC) History of CVA (cerebrovascular accident) History of vertebral fracture Hyperlipidemia ([facility]) Kidney stones MGUS (monoclonal gammopathy of unknown significance) Primary osteoarthritis involving multiple joints Stroke (CMS/HCC) Tinnitus of both ears Type 2 diabetes mellitus with diabetic neuropathy ([facility]) SURGICAL HISTORY: Past Surgical History: Procedure Laterality Date CERVICAL SPINE SURGERY Dr. Henry COLONOSCOPY 2017 CYSTOSCOPY 06/05/2024 1 cm right calculus EXCISION Right 07/2022 shoulder cyst [facility] OTHER SURGICAL HISTORY 05/2022 stent removed from kidney (stone) UMBILICAL HERNIA REPAIR 07/26/2022 UMBILICAL HERNIA REPAIR 07/2022 [facility] URETERAL STENT PLACEMENT Left 05/2022 Dr. heath SOCIAL HISTORY: Social History Tobacco Use Smoking status: Former Current packs/day: 0.00 Types: Cigarettes Start date: 10/21/1979 Quit date: 10/21/1999 Years since quittin.6 Smokeless tobacco: Never Vaping Use Vaping status: Never Used Substance Use Topics Alcohol use: Not Currently Comment: caffeine: coffee 1 cup a day Drug use: Never Depression: Not at risk (02/20/2024) PHQ-2 PHQ-2 Score: 1 FAMILY HISTORY: Family History Problem Relation Name Age of Onset Hypertension Mother Mother No Known Problems Father Diabetes Brother Brother Hypertension Brother Brother No Known Problems Daughter MEDICATIONS: Current Outpatient Medications Medication Instructions ALPRAZolam (XANAX) 0.5 mg, Oral, Every 8 hours PRN amLODIPine (NORVASC) 5 mg, Oral, Daily ASPIRIN 81 MG chewable tablet Every 24 hours atorvastatin (LIPITOR) 40 mg, Oral, Nightly canagliflozin (INVOKANA) 100 mg, Oral, Daily before breakfast ergocalciferol (VITAMIN D-2) 1.25 mg, Oral, Weekly glimepiride (Amaryl) 1 MG tablet take 1 tablet by mouth every morning with meals HYDROcodone-acetaminophen (Fortine) 5-325 MG tablet 1-2 tablets, Oral, Every 4 hours PRN losartan (COZAAR) 100 mg, Oral, Daily omeprazole (PRILOSEC) 20 mg, Oral, Daily, Do not crush or chew. propranolol LA (INDERAL LA) 80 mg, Oral, Daily semaglutide (RYBELSUS) 14 mg, Oral, Daily before breakfast solifenacin (VESICARE) 10 mg, Oral, Daily ALLERGIES: Allergies Allergen Reactions Buspar [Buspirone] Other Lower extremity edema Metformin Other Reaction(s): fatigue PHYSICAL EXAM: Visit Vitals BP 116/62 (BP Location: Left arm, Patient Position: Sitting) Pulse 68 Ht 5' 10 Wt 240 lb SpO2 95% BMI 34.44 kg/m Smoking Status Former BSA 2.32 m BP Readings from Last 3 Encounters: 06/17/24 116/62 03/04/24 128/78 02/20/24 118/78 Wt Readings from Last 3 Encounters: 06/17/24 240 lb 03/04/24 232 lb 02/20/24 232 lb Physical Exam Constitutional: Appearance: He is obese. HENT: Mouth/Throat: Mouth: Mucous membranes are moist. Neck: Vascular: No carotid bruit. Cardiovascular: Rate and Rhythm: Normal rate and regular rhythm. Heart sounds: No murmur heard. No friction rub. No gallop. Pulmonary: Effort: Pulmonary effort is normal. Breath sounds: Normal breath sounds. Abdominal: General: Bowel sounds are normal. Palpations: Abdomen is soft. Tenderness: There is no abdominal tenderness. Musculoskeletal: Right lower leg: No edema. Left lower leg: No edema. Lymphadenopathy: Cervical: No cervical adenopathy. Skin: General: Skin is warm and dry. Neurological: Mental Status: He is alert and oriented to person, place, and time. Psychiatric: Mood and Affect: Mood normal. Thought Content: Thought content normal. Results Laboratory Studies A1c was 8.6 in February. Imaging Ultrasound revealed a large kidney stone in an unfavorable location. ASSESSMENT AND PLAN: Assessment & Plan 1. Type 2 diabetes mellitus with diabetic nephropathy, without long-term current use of insulin ([facility]) The patient's A1c was 8.6 in February, and he is concerned it may be higher now due to weight gain. He weighed 240 pounds and suspects his A1c might be around 10. Despite cutting out sugary snacks like M&Ms, he has not lost weight and is not experiencing hunger. An A1c test will be conducted today to monitor his glycemic control. The previously scheduled blood work for today will be canceled as recent tests were done during his hospital stay. FS HbA1C was 6.8. The specific goals of treatment, toinclude keeping the HbA1C less than 7.0 and the blood pressure less than 140/90, were reviewed. Theblood pressure and most recent HbA1C were provided. Continue the current plan of eating a proper ronald betic diet, exercising regularly, and taking prescribed medications. The patient was instructed to call the office if any problems arise. - POCT glycosylated hemoglobin (Hb A1C) docked device 2. Stage 3a chronic kidney disease (HCC) (CMS/HCC) At today's visit, labs were reviewed and discussed with the patient. All risk factors were reviewedand addressed. All appropriate modifications were made to reduce or delay the progression of kidneydisease. We will continue the current medications and continue to modify all risk factors as we areable to do so. Follow-up labs again at next office visit. 3. Essential hypertension (CMS/HCC) Doing well. Blood pressures have been good. Continue lifestyle modifications. Continue current medication. Call if any problems or if home blood pressures rising. 4. Monoclonal paraproteinemia Stable. Continue to monitor. 5. Pure hypercholesterolemia (CMS/HCC) Continue current medication, eat a healthy diet, and exercise regularly. 6. Primary insomnia Stable. Continue to monitor. 7. History of kidney stones The patient continues to experience kidney pain and has a stent in place. He reported that the stone was not broken up during his recent hospital visit. Pain management has been challenging, and he has been prescribed morphine and Dilaudid during his hospital stay. He is currently taking hydrocodone for back pain, which is insufficient for his kidney pain. He was advised to increase his hydrocodone dosage from four to six tablets daily to manage his symptoms better. If this adjustment proves ineffective, further changes to his pain management regimen may be necessary. I asked that he call forearly refill and if still taking 6/day will increase to #180. Dr. Hernandez was present in the office at the time of visit today and is supervising patient care. I amfollowing Dr. Hernandez's established plan of care for the above issues. documented in this encounterSaint Luke's Health [id number] Progress note Author Mikey Rose [facility] July 13, 2023 2:01pmNote Date/TimeSeptember 2022 12:02pmPep[place] [address] Neurology Progress Note Signed Patient: Rod Mathias MR#: [id number] : 1960 Acct:[id number] Age/Sex: 62 / M Adm Date: 3 Loc: Room: [address] [place] [address] Type: ADM INOo Attending Dr: Shaila Bowen [...] yesterday. Is able to ambulate without much difficulty.No presyncope. Right side of his body still feels different than his left, but same as it chronically does. No significant headaches. He feels much better and says he is ready to get out of here. He i sfrustrated with the lack of any definitive diagnosis. I told him to do some Internet searching about atypical migraine auras because I think that may be themost likely sort of issue left that could contribute to prolonged episodes of brain fog, during which she complains of headaches. Otherwise hedoes not get headaches. EXAMINATION: Well-kempt. No distress. [...] No tremors. Reflexes mildly hyperactive throughout and hehasbilateral Cece signs. Vibratory sensation is diminished in the right upper and right lower extremity. No limb dysmetria with vecove-mlmt-dkgwbm testing. DATA REVIEW: -CT head without any [...] am notsure if that represents a minuscule chroniclacunar infarction or is just a nonspecific white [...] symptomatic, his Romberg is negative despite a lotof swaying that might be somewhat exaggerated. 3. [...] <Electronically signed by Mikey Rose DO> 07/13/[address] [place] [address] Work Phone: 1(702) 347-336609-22-2023 Progress note Author Shaila Bowen [facility] July 12, 2023 6:48pmNote Date/TimeSeptember 2022 6:42pmStephanie [place] [id number] Hospitalist Progress Note Signed Patient: Rod Mathias MR#: [id number] : 1960 Acct:[id number] Age/Sex: 62 / M Adm Date: 3 Loc: 4N Room: 9F0952-3 Type: ADM INOo Attending Dr: Shaila Bowen [...] 07/12/23 09:14 Buspirone 15 Mg Tablet PO 09/20/24 20:59 15 mg BID PEEWEE Administration Canagliflozin [...] 183 Signed By: <Electronically signed by Shaila Bowen MD> 07/12/238 [facility] Work Phone: 1(673) 319-651909-22-2023 Consult note Author Mikey Rose [facility] July 12, 2023 3:35pmNote Date/TimeSept2022 12:20pmStephanie Ville [id number] Neurology Consult Note Signed Patient: Rod Mathias MR#: [id number] : 1960 Acct:[id number] Age/Sex: 62 / M Adm Date: 3 Loc: 4N Room: [address] [place] [address] Type: ADM INOo Attending Dr: Shaila Bowen MD Copies to: DO Shaila Ovalle MD Robert L Hill, MD~ HPI Consult Date: 07/12/23 Floating Operator: Mikey Rose DO [facility] Medical History Arthritis hips Back pain was [...] Arun Collier MD07/12/2023 10:17 AM Dictation Location: [facility] 07/11/23 16:38 IMPRESSION: No acute intracranial pathology. No significant interval change. Impression dictated by: Kassy Roldan M.D.07/11/2023 5:32 PM Dictation Location: [place] [address] Chest X-Ray 07/11/23 16:39 IMPRESSION: There is cardiomegaly. There is mild perihilar vascular prominence. This may represent sequelae of congestive heart failure or volume overload. There is no focal consolidation. Impression dictated by: Kassy Roldan M.D.07/11/2023 8:41 PM Dictation Location: [place] [address] Assessment/Plan (1) TIA (transient ischemic attack): Assessment/Problem [...] earlier in the day. He had a janice ateral throbbing headache. Home medications include aspirin 81 mg daily. Hestill feels foggy. Feelslike he is having a hard time participating [...] lesion on MRI. Imaging at that time appearedto show a tiny chronic right thalamic lacunar infarction that his symptoms could not be attributed to (too minuscule to cause his symptoms and appeared chronic while his symptoms were acute). At thattime he was also having confusion or fogginess. [...] No tremors. Reflexes mildly hyperactive throughout and hehasbilateral Cece signs. Vibratory sensation is diminished in the right upper and right lower extremity. No limb dysmetria with dkmgrm-gsom-rqtmyt testing. Romberg negative but he has exaggerating [...] am notsure if that represents a minuscule chroniclacunar infarction or is just a nonspecific white [...] <Electronically signed by Mikey Rose DO> 07/12/23 4937 [facility] Work Phone: 1(315) 657-841909-22-2023 History and physical note Author Shaila oBwen [facility] July 12, 2023 12:47amNote Date/TimeSeptember 2022 8:11pmP[place] [address] Hospitalist H&P Signed Patient: Rod Mathias MR#: [id number] : 1960 Acct:[id number] Age/Sex: 62 / M Adm Date: 3 Loc: 4N Room: [address] [place] [address] Type: ADM INOo Attending Dr: Shaila Bowen MD Copies to: MD Ganga Thomas MD~ HPI DATE OF EXAMINATION: 07/11/23 HISTORY OF PRESENT ILLNESS: This is a pleasant 62M with PMH of HTN, DM, HLD, CVA/TIA, CKD, chronic back pain, h/o Suspected atypical migraine, bilateral nephrolithiasis. who presentedwith AMS and admitted for the evaluation andtreatment The patient reported that he does not [...] care Discussed with:?the medical team, the patient [facility] Medical History Arthritis hips Back pain was [...] % (Auto) 27.5 % (.) 07/11/23 16:53 [place] % (Auto) 8.1 % (.) 07/11/23 16:53 Eos % (Auto) 1.0 % (.) 07/11/23 16:53 Baso % (Auto) 0.7 % (.) 07/11/23 16:53 Nucleat RBC Rel Count 0.1 /100 WBC (0-0.5) 07/11/23 16:53 Neut # (Auto) 5.6 x10E3/uL (1.8-7.7) 07/11/23 16:53 Lymph # (Auto) 2.4 x10E3/uL (1.00-4.8) 07/11/23 16:53 [place] # (Auto) 0.7 x10E3/uL (0.0-0.8) 07/11/23 16:53 [...] signed by Shaila Bowen MD> 07/12/23 0047 [facility] Work Phone: 1(337) 363-887012-22-2022 Evaluation note* Encounter Date Diagnosis Assessment Notes Treatment Notes Treatment Clinical Notes Sep, Arthritis of lumbosacral spine ( ICD-10 - M47.817) 62 year old male here for follow up to discuss chronic pain. He voices complaints of left hip pain.He rates his pain 10/10 today. He states his pain has significantly increased in the last 3 weeks. He feels his pain is negatively impacting his activities of daily living. He continues taking Fortine and is requesting a refill of this [...] as prescribed and I will refill his Fortine as he feels this provides an element of relief. Sep,rthropathy of left hip (ICD-10 - M16.12) Proceed with left hip replacement if applicable. In the meantime, he can continue with medications as prescribed. Sep,Lumbar radiculopathy (ICD-10 - M54.16) If his pain persists or worsens, we can consider other interventional options in the future as patient is unable to proceed with steroid injections at this time. Sep,Lumbar degenerative disc disease (ICD-10 - M51.36) Continue with current treatment plan. Sep,ther chronic pain (ICD-10 - G89.29) Patient has continued need for Fortine. OARRS report processed and reviewed and shows no violations. Patient was educated on the risks and benefits of retirement opioid use. Fortine was refilled today, opioid risk assessment was done as well as pill count. Patient is compliant with opioid medication. The patient denies any opioid related side effects. [facility] Other 11-10-2022 Evaluation note* Encounter Date Diagnosis Assessment Notes Treatment Notes Treatment Clinical Notes Aug, Arthritis of lumbosacral spine ( ICD-10 - M47.817) [facility] Other 11-09-2022 Evaluation note* Encounter Date Diagnosis Assessment Notes Treatment Notes Treatment Clinical Notes Aug, Arthritis of lumbosacral spine ( ICD-10 - M47.817) 61 y/o male here with complaints of left hip pain with radiation into the groin. He states his painstarted at least 1 year ago. He notes he was scheduled for a left hip replacement last year howeverit has been postponed due to other family [...] the patient, I independently reviewed office notes fromreferring provider, Dr Amor. Pertinent imaging were reviewed and discussed in detail with the patient which showed degenerative disc disease and arthritis in the lower back. Anatomy of spine as well as different treatment options were discussed in detail with patient in regards to patients condition. If his pain persists or worsens, we can consider a bilateral lumbar facet medial branch nerveblock under fluoroscopic guidance to treat his low back pain as he is unable to proceed with steroids at this time. Risks and benefits of procedure explained to patient; patient verbalizes understanding. Naida feels low back pain is tolerable in comparison to his left hip pain and does not wish to proceed at this time. In the meantime, I will prescribe Fortine twice daily as he feels this provides an element of relief. Aug,rthropathy of left hip (ICD-10 - M16.12) Proceed with left hip replacement. In the meantime, he can continue with medications as prescribed. Aug,Lumbar radiculopathy (ICD-10 - M54.16) If his pain persists or worsens, we can consider other interventional options in the future as patient is unable to proceed with steroid injections at this time. Aug,Lumbar degenerative disc disease (ICD-10 - M51.36) Continue with current treatment plan. Aug,ther chronic pain (ICD-10 - G89.29) Patient has continued need for Fortine. OARRS report processed and reviewed and shows no violations. Patient was educated on the risks and benefits of retirement opioid use. Fortine was prescribed today. Opioid contract was signed with Dr Castañeda and explained to the patient in detail, patient verbalizes an understanding. Opioid risk assessment was done. The patient denies any opioid related side effectsin the past. UDS performed through [facility] lab today, will await confirmatory results. Aug,therMedical decision making shows a new problem to me with further workup planned or suggested with thepotential for extensive treatment options that were considered with the most applicable given this patient's situation as noted above. Treatment options considered include a combination of physical th erapy approaches, pharmacologic management, and interventional procedures. Those most applicable tothe patient were discussed at this time. Risk [...] prolonged functional impairment requiring constant patient reassessment andhigh-level medical decision making. The amount and complexity of data reviewed is high given that patient labs, radiology reports, and other test were obtained, reviewed and summarized as applicable from the physician portal and/or outside medical records. Pertinent positive and negative findings were considered in medical decision-making. [facility] Other 10-01-2022 History general Narrative - Reported* Type Description Date Medical History Hypertension Medical HistoryhyperlipidemiaMedical Historydiabetes mallitusSurgical History KidneysSurgical HistoryACDF-Doctor BraunSurgical Historyumbilical hernia repair 07/2022Hospitalization HistorySee AboveHospitalization HistoryTIA, HTN, HPL, DMII02/22/21 [facility] Other 10-01-2022 History general Narrative - Reported* Type Description Date Medical History Hypertension Medical HistoryhyperlipidemiaMedical Historydiabetes mallitusSurgical History KidneysSurgical HistoryACDF-Doctor BraunSurgical Historyumbilical hernia repair 07/2022Hospitalization HistorySee AboveHospitalization HistoryTIA, HTN, HPL, DMII05/03/10Hospitalization HddyltbUKJ84/2022 [facility] Other 09-22-2022 NoteHISTORY: Bone density screening COMPARISON: [...] and signed by Amol Vogt on 07/12/2022 [facility] Evaluation note* Encounter Date Diagnosis Assessment Notes [...] we will send a referral for him.. [facility] Other 08-02-2022 Hospital Discharge instructions Patient Education [...] include: ?Spinach. ?Rhubarb. ?Beets. ?Potato chips and luxembourgish fries. ?Nuts. If you regularly take a diuretic medicine, make sure to eat at least 1 2 fruits or vegetables high in potassium each day. These include: ?Avocado. ?Banana. ?[place], prune, carrot, or tomato juice. ?Baked potato. [...] Casseroles. Pizza. Lasagna. Frozen meals. Potato chips. Fijian fries. Summary You can reduce your risk [...] 02/01/2012 Document Revised: 01/27/2020 Document Reviewed: 09/17/2017 [employer] Patient Education 2020 [employer] Follow Up Care 05/21/2022 14:04:05 With:KUMAR HAYS, Mark Anthony Child, URL Address: [address] [place], [place] [id number]- When: Unknown [facility] 06-30-2022 Evaluation note* Encounter Date Diagnosis Assessment Notes Treatment Notes Treatment Clinical Notes Mar, Cervical disc disord er at C5-C6 level with myelopathy (ICD-10 - M50.022) Mar,Lumbago with sciatica, right side (ICD-10 - M54.41)This gentleman has percussible pain in the upper lumbar or thoracolumbar region. I have ordered an AP and lateral lumbar x-ray he should be getting that shortly we will let him know what it shows I have also started him on a Medrol Dosepak. It is possible this patient has a compression fracture. Follow-up will be determined by the x- ray. I did follow-up with this x-ray which shows a possible compression fracture at L1 or L2 when compared to the previous CT. I think this patient should be fittedwith a TLSO brace and undergo an MRI of the lumbar spine and then follow- up with me. The TLSO bracewill be dispensed to reduce pain by restricting mobility of the trunk and to support the spinal muscles and/or spine. The brace will be needed for atleast 3 months and is needed so that patient may be up and around so that he may accomplish his ADL's and remain in an upright position, without the risk of leaning forward and risk of increased falls. Mar,Lumbago with sciatica, left side (ICD-10 - M54.42) Mar,ompression fracture of L1 vertebra, initial encounter (ICD-10 - S32.010A) [facility] Other 12-07-2021 Evaluation note* Encounter Date Diagnosis Assessment Notes Treatment Notes Treatment Clinical Notes Sep, Cervical disc disord er at C5-C6 level with myelopathy (ICD-10 - M50.022) I have independently reviewed his most recent x-ray of the cervical spine with flexion-extension views and compared it to the x-ray of the cervical spine on 05/02/2021 there has been slight subsidenceand collapse of the graft he appears to have a cervical fusion at that level. The patient has had agood surgical outcome he is happy with his course he will follow up with me on an as-needed basis in the future. [facility] Other consxoh note Author Mikey Rose [facility] Hospital[facility] Date/TimeMarch 2024 4:00pmStephanie Ville [id number] Neurology Consult Note Signed Patient: Rod Mathias MR#: [id number] : 1960 Acct:[id number] Age/Sex: 64 / M Adm Date: 5 Loc: 3T Room: [address] [place] [address] Type: ADM INOo Attending Dr: Maurice Foote MD Copies to: DO Maurice Ovalle MD Robert L Hill, MD~ HPI Consult Date: 12/30/24 Floating Operator: Mkiey Rose DO [facility] Medical History BPH (benign prostatic hyperplasia) Arthritis hips Problem List clean-up per request of Phys. EHR Cmte Back pain was told possible fracture vertebra Problem List clean-up per request of Phys. EHR Cmte Restless legs left leg Numbness and tingling of leg left leg CKD (chronic kidney disease) stage 3 Problem List clean-up per request of Phys. 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 EHR Cmte Hx of renal calculi Hyperlipidemia Hypertension Surgical History History of renal stent H/O colonoscopy H/O hernia repair umbilical Hx of cystoscopy stone basket Problem List clean-up per request of Phys. EHR Cmte Hx of cervical spine surgery anterior Problem List clean-up per request of Phys. EHR Cmte Hx of lithotripsy Family History Brother Diabetes Mother Hypertension Father Medical history unknown Social History Smoking Status: Former smoker Tobacco Type: cigarettes Substance Use Type: None Substance Abuse Comment: occasional social alcohol use Meds Medications and Allergies Allergies atb Allergy (Uncoded 08/09/24 18:19) bladder problem Home Medications amlodipine 5 mg tablet 5 mg PO QAM htn 02/22/21 [History Confirmed 12/29/24] atorvastatin 40 mg tablet (Lipitor) 40 mg PO QPM hyperlipidemia 07/12/22 [History Confirmed 12/29/24] aspirin 81 mg capsule 81 mg PO QAM 10/02/22 [History Confirmed 12/29/24] hydrocodone 5 mg-acetaminophen 325 mg tablet 1 - 2 tab PO Q4-6H PRN Pain 10/02/22 [History Confirmed 12/29/24] semaglutide 7 mg tablet (Rybelsus) 14 mg PO DAILY DM 02/05/23 [History Confirmed 12/29/24] alprazolam 0.5 mg tablet 0.5 mg PO Q8H PRN Anxiety 06/07/23 [History Confirmed 12/29/24] losartan 100 mg tablet 100 mg PO DAILY 06/07/23 [History Confirmed 12/29/24] propranolol 80 mg capsule,24 hr,extended release 80 mg PO DAILY 07/24/23 [History Confirmed 12/29/24] ergocalciferol (vitamin D2) 1,250 mcg (50,000 unit) capsule (Vitamin D2) 50,000 unit PO QWEEK 08/10/24 [History Confirmed 12/29/24] duloxetine 30 mg capsule,delayed release 30 mg PO DAILY 12/29/24 [History Confirmed 12/29/24] glimepiride 1 mg tablet 1 mg PO QAM 12/29/24 [History Confirmed 12/29/24] Exam Physical Exam Vital Signs: Temp Pulse Resp BP Pulse Ox O2 Del Method 97.5 F L 69 18 143/88 H 94 L Room Air 12/30/24 08:00 12/30/24 08:00 12/30/24 08:00 12/30/24 08:00 12/30/24 08:00 12/30/24 08:00 Results - Neuro Laboratory Findings 12/30/24 06:54 12/30/24 06:41 Lab Results: Hemoglobin A1c 6.8 % (4.3-5.6) H 12/30/24 06:41 Diagnostic Findings Imaging/Impressions: ITS Impressions Head CT 12/29/24 15:23 IMPRESSION: No acute findings. Preliminary 3:45 PM 12/29/2024 Impression dictated by: Steve Thurston M.D.12/29/2024 3:48 PM Dictation Location: [facility] Head CTA 12/29/24 15:31 IMPRESSION: No occlusion, critical stenosis or dissection of the extracranial orintracranial circulation. Thyroid nodules measuring up to 14 mm. Impression dictated by: Steve Thurston M.D.12/29/2024 4:29 PM Dictation Location: [place] [address] Brain MRI 12/29/24 17:12 IMPRESSION: No acute intracranial process. Mild chronic small vessel ischemic changes. Impression dictated by: Steve Thurston M.D.12/29/2024 10:47 PM Dictation Location: [place] [address] Assessment/Plan (1) Right sided weakness: Plan CONSULT REASON: Worsening right-sided weakness HPI: 64-year-old man. History of right hemiparesis at baseline. He came to the emergency department the afternoon of December 29, 2024 with worsened right leg weakness compared to his baseline, new numbness to the right lower face, and reports of blurred vision in both eyes intermittently. He mentioned recently having some rhinorrhea, congestion, and chills. He mention to me having some issues with thinking and concentration, sometimes with stuttering. He says he has sensation on the right side of the face around the mouth but it feels thick or abnormal. To him it feels weak but people are telling him it is not weak. Home medications include amlodipine, atorvastatin 40 mg, aspirin 81 mg, semaglutide, hydrocodone?acetaminophen, alprazolam, buspirone, losartan, propranolol, tamsulosin. EXAMINATION: In no distress. No deformities or trauma. Limbs seem well-perfused. No significant edema. Normal work of breathing. Visualized skin is generally intact and without lesions. Affect normal. Patient is alert. Attention normal. Speech is generally limited and nondysarthric, though sometimes he exhibitsmild stuttering/stammering. Pupils are equal and reactive. Ocular motility is full. No nystagmus. Facial sensation is normal. Hearing is normal. Facial strength is normal. Tongue is midline. No limb drift or pronator drift in upper extremities. Left lower extremity with full strength. Right lower extremity with some giveaway weakness and effort was questionable. No significant tremors. Reflexes +3/4 throughout and especially brisk at the right patella. Light touch is normal. No limb ataxia. DATA REVIEW: -A1c 6.8% -Ionized calcium 1.25 (normal) -Total cholesterol 140, LDL 67 -Initial leukocytosis 13 now down to 7.7 -MRI brain without contrast December 29, 2024 is without acute findings -MRI cervical spine December 20, 2020 showed posterior disc herniation at C5-6 with moderate to severe central spinal canal stenosis and cord compression and myelopathy -MRI lumbar spine May 02, 2022 showed moderate to severe bilateral neuroforaminal stenosis at L5-S1, and other significant degenerative changes -MRI brain without contrast from November 05, 2018 shows a tiny nonacute lacunar infarction in the right thalamus -Routine EEG July 12, 2023 was normal ASSESSMENT: 64-year-old man with 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 He presents with a number of symptoms such as acute on chronic weakness in his right lower extremity, paresthesias to the right lower face, blurred vision, intermittent speech changes with stuttering, and issues with cognition and concentration. He has presented on past occasions with similar symptoms. Oftenhas a headache to some extent as well. He presented back in October 2018 with similar symptoms to now, though those were left-sided. MRI brain does not offer explanation for any of his presenting symptoms and looks normal. He does not have history of stroke. He tends to report in his medical history having history of stroke that left him with right hemiparesis. Perhaps his cervical spinal cord compression left him withsome degree of right hemiparesis but he has had multiple MRI brain studies that have never demonstrated acute ischemia. There was a October 2018 study that showed a tiny focus of T2/FLAIR hyperintensity in the right thalamus that was thought to possibly be a past ischemic stroke, but it does not neuroanatomically correspond to his perceived chronic deficits, and that tiny lesion does not show up in subsequent imaging. He tends to include stroke or mini stroke in his medical history but I do not think he has ever actually had a stroke. His right lower extremity exam reveals some effort dependent weakness. 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 That being said, the right lower extremity has especially brisk reflexes and in looking at his cervical spine on the CT angiography pictures it does look like there could be significant crowding around his cervical cord again. PLAN: MRI cervical spine without contrast Outpatient neuropsych evaluation Cognitive lab work: B12 and TSH Documented By: Mikey Rose DO 12/30/24 1225 Signed By: <Electronically signed by Mikey Rose DO> 12/30/24 1600 [facility] Work Phone: Evaluation + Plan note No data available for this section [facility] Evaluation noteNo assessment information available [facility] Work Phone: Evaluation note* Diagnosis Onset Date Resolution Status Altered mental status acuteChest painacuteConfusionacuteDizzinessacuteHeadacheacuteSpeaking difficulty acute [facility] Work Phone: Evaluation note* Diagnosis Onset Date Resolution Status Altered mental status acuteChest painacuteConfusionacuteDizzinessacuteHeadacheacuteSpeaking difficulty acuteTIA (transient ischemic attack)acute [facility] Work Phone: Evaluation note* Diagnosis Onset Date Resolution Status Chest pain acuteDiabetes mellitus, type IIacuteHistory of TIAsacuteHyperlipidemiaacute Hypertensionacute [facility] Work Phone: evaluation note* Diagnosis Onset Date Resolution Status Altered mental status acuteSyncopeacuteTIA (transient ischemic attack)acute [facility] Work Phone: evaluation note* Diagnosis Onset Date Resolution Status WILD (acute kidney injury) acuteBPH (benign prostatic hyperplasia)acuteInfection due to ESBL-producing Escherichia coliacuteSepsisacuteUTI (urinary tract infection)acute [facility] Work Phone: Evaluation note* Diagnosis Nausea and vomiting, unspecified vomiting type- Primary Other fatigue [facility] Diagnosis Onset Date Resolution Status WILD (acute kidney injury) acuteBPH (benign prostatic hyperplasia)acuteInfection due to ESBL-producing Escherichia coliacuteUTI (urinary tract infection)acuteSepsisresolvedAcute pyelonephritisacuteBacterial cystitisacuteBPH (benign prostatic hyperplasia) acuteCKD (chronic kidney disease)acuteDiabetesacuteHistory of CVA (cerebrovascular accident)acuteHyperlipidemiaacuteHypertensionacuteUTI (urinary tract infection)acute [facility] Work Phone: Evaluation note* Diagnosis MEGAN (generalized anxiety disorder) ([facility]/HCC) Generalized anxiety disorder Anxiety Anxiety state, unspecified Primary osteoarthritis involving multiple joints [facility] Diagnosis MEGAN (generalized anxiety disorder) ([facility]/HCC) Generalized anxiety disorder Anxiety Anxiety state, unspecified [facility] Diagnosis Acute pyelonephritis- Primary Acute pyelonephritis without lesion of renal medullary necrosis Stage 3a chronic kidney disease (HCC) ([facility]/HCC) Essential hypertension ([facility]) Unspecified essential hypertension Type 2 diabetes mellitus with diabetic nephropathy, without long-term current use of insulin ([facility]) Atherosclerosis of aorta ([facility]) Atherosclerosis of aorta [facility] Diagnosis Primary osteoarthritis involving multiple joints [facility]* Diagnosis Type 2 diabetes mellitus with diabetic nephropathy, without long-term current use of insulin ([facility])- Primary Stage 3a chronic kidney disease (HCC) ([facility]/HCC) Essential hypertension ([facility]/HCC) Unspecified essential hypertension Monoclonal paraproteinemia Pure hypercholesterolemia ([facility]/HCC) Pure hypercholesterolemia Primary insomnia Persistent disorder of initiating or maintaining sleep History of kidney stones [facility] Diagnosis Primary osteoarthritis involving multiple joints [facility]* Diagnosis Type 2 diabetes mellitus with diabetic chronic kidney disease ([facility]/HCC)- Primary Chronic kidney disease, stage 3a (HCC) ([facility]/HCC) Essential hypertension ([facility]/HCC) Unspecified essential hypertension Pure hypercholesterolemia, unspecified ([facility]/HCC) Hyperparathyroidism, unspecified ([facility]) Hyperparathyroidism, unspecified Disease of spinal cord, unspecified ([facility]) Primary insomnia Persistent disorder of initiating or maintaining sleep Primary osteoarthritis involving multiple joints MEGAN (generalized anxiety disorder) ([facility]/HCC) Generalized anxiety disorder Gastroesophageal reflux disease without esophagitis Esophageal reflux Renal cyst 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 Peripheral neuropathy due to metabolic disorder ([facility]) Vitamin D deficiency History of kidney stones History of pyelonephritis [facility] Diagnosis Primary osteoarthritis involving multiple joints [facility]* Diagnosis MEGAN (generalized anxiety disorder) ([facility]) Generalized anxiety disorder Anxiety Anxiety state, unspecified documented in this encounter [facility]* Diagnosis Urinary tract infection without hematuria, site unspecified- Primary PICC (peripherally inserted central catheter) flush Fitting and adjustment of vascular catheter [facility] Diagnosis Urinary tract infection without hematuria, site unspecified- Primary [facility] Diagnosis Urinary tract infection without hematuria, site unspecified- Primary [facility] Diagnosis Urinary tract infection without hematuria, site unspecified- Primary PICC (peripherally inserted central catheter) flush Fitting and adjustment of vascular catheter [facility]* Diagnosis Urinary tract infection without hematuria, site unspecified- Primary PICC (peripherally inserted central catheter) flush Fitting and adjustment of vascular catheter [facility] Diagnosis Urinary tract infection without hematuria, site unspecified- Primary PICC (peripherally inserted central catheter) flush Fitting and adjustment of vascular catheter [facility]* Diagnosis Urinary tract infection without hematuria, site unspecified- Primary [facility]* Diagnosis Urinary tract infection without hematuria, site unspecified- Primary [facility]* Diagnosis Urinary tract infection without hematuria, site unspecified- Primary [facility]* Diagnosis Urinary tract infection without hematuria, site unspecified- Primary documented in [facility] encounter [facility]* Diagnosis Urinary tract infection without hematuria, site unspecified- Primary PICC (peripherally inserted central catheter) flush Fitting and adjustment of vascular catheter documented in this encounter [facility]* Diagnosis Urinary tract infection without hematuria, site unspecified- Primary PICC (peripherally inserted central catheter) flush Fitting and adjustment of vascular catheter [facility]* Diagnosis Urinary tract infection without hematuria, site unspecified- Primary PICC (peripherally inserted central catheter) flush Fitting and adjustment of vascular catheter documented in this encounter [facility]* Diagnosis Urinary tract infection without hematuria, site unspecified- Primary PICC (peripherally inserted central catheter) flush Fitting and adjustment of vascular catheter [facility]* Diagnosis Urinary tract infection without hematuria, site unspecified- Primary [facility]* Diagnosis Urinary tract infection without hematuria, site unspecified- Primary PICC (peripherally inserted central catheter) flush Fitting and adjustment of vascular catheter [facility]* Diagnosis Urinary tract infection without hematuria, site unspecified- Primary PICC (peripherally inserted central catheter) flush Fitting and adjustment of vascular catheter [facility]* Diagnosis PICC (peripherally inserted central catheter) flush- Primary Fitting and adjustment of vascular catheter Urinary tract infection without hematuria, site unspecified [facility]* Diagnosis Urinary tract infection without hematuria, site unspecified- Primary PICC (peripherally inserted central catheter) flush Fitting and adjustment of vascular catheter [facility]* Diagnosis Primary osteoarthritis involving multiple joints [facility] Diagnosis Primary osteoarthritis involving multiple joints [facility]* Diagnosis MEGAN (generalized anxiety disorder) Generalized anxiety disorder Anxiety Anxiety state, unspecified [facility]* Diagnosis Type 2 diabetes mellitus with diabetic nephropathy, without long-term current use of insulin (HCC) Primary osteoarthritis involving multiple joints [facility]* Diagnosis History of TIA (transient ischemic attack) documented [facility]* Diagnosis MEGAN (generalized anxiety disorder) Generalized anxiety disorder Anxiety Anxiety state, unspecified [facility] Author Amrik Rojas [facility] August 09, 2024 10:20pmNote Date/TimeOct2023 10:20pm[place] [address] Hospitalist H&P Signed Patient: Rod Mathias MR#: [id number] : 1960 Acct:[id number] Age/Sex: 63 / M Adm Date: 4 Loc: 3T Room: 5C0851-6 Type: ADM IN Attending Dr: Amrik Rojas DO Copies to: DO Ganga Young MD~ HPI DATE OF EXAMINATION: 08/09/24 CHIEF COMPLAINT: Painful urination, vomiting, chills, T 102 dF. HISTORY OF PRESENT ILLNESS: This is a 63 year-old man who came to the emergency room with relatively sudden onset of infectioussymptoms. Today he began having vomiting. He had extremelypainful and frequent urination. He was having severe shaking chills. When he arrived in emergency room he was tachycardic with heart rate of about 120. His blood pressure was elevated at 152/96. His white blood count is elevated at 14.1. Bladder scan shows a postvoid residual which is very low at 119. His bicarb is a little bit low at 18.3. His serum creatinine is at his baseline forhim at 1.64. His lactic acid is elevated at 2.1. Urinalysis shows evidence of infection. By the way the patient is on Invokana. He also was on Flomax that was started by hospitalist on his last hospitalization, which was 07/09 to 07/14. At that time he had ESBL E. coli UTI and a midline was placed that he could finish 10 days of ertapenem at home. That hospitalization was described as pyelonephritis and the patient had recently had removal of a ureterstent after kidney stone treatment. Today when I go to see the patient emergency room he complains of left-sided flank pain. He believes that he is having a kidney stone. I immediately ordered a stat noncontrast CT scan of the abdomen pelvis stone protocol while inthe emergency room. He says that he is not able to get into see urology until the month of September. He asked for medicine to help him stop having so much vomiting. He then picked it up right to the side of the bed to try and void urine. Review of Systems Review of Systems Review of systems: 10 systems are reviewed and are negative except as mentioned elsewhere in the documentation. [facility] Medical History (Updated 08/09/24 @ 22:18 by Amrik Rojas DO) Arthritis hips Problem List clean-up per request of Phys. EHR Cmte Back pain was told possible fracture vertebra Problem List clean-up per request of Phys. EHR Cmte Restless legs left leg Numbness and tingling of leg left leg CKD (chronic kidney disease) stage 3 Problem List clean-up per request of Phys. 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 EHR Cmte Hx of renal calculi Hyperlipidemia Hypertension Surgical History History of renal stent H/O colonoscopy H/O hernia repair umbilical Hx of cystoscopy stone basket Problem List clean-up per request of Phys. EHR Cmte Hx of cervical spine surgery anterior Problem List clean-up per request of Phys. EHR Cmte Hx of lithotripsy Family History Brother Diabetes Mother Hypertension Father Medical history unknown Social History Smoking Status: Former smoker Tobacco Type: cigarettes Substance Use Type: None Substance Abuse Comment: occasional social alcohol use Meds Medications and Allergies Allergies atb Allergy (Uncoded 08/09/24 18:19) bladder problem Home Medications amlodipine 5 mg tablet 5 mg PO QAM htn 02/22/21 [History Confirmed 08/09/24] canagliflozin 100 mg tablet (Invokana) 100 mg PO QAM DM 05/07/22 [History Confirmed 08/09/24] atorvastatin 40 mg tablet (Lipitor) 40 mg PO QPM hyperlipidemia 07/12/22 [History Confirmed 08/09/24] aspirin 81 mg capsule 81 mg PO QAM 10/02/22 [History Confirmed 08/09/24] hydrocodone 5 mg-acetaminophen 325 mg tablet 1 - 2 tab PO Q4-6H PRN Pain 10/02/22 [History Confirmed 08/09/24] semaglutide 7 mg tablet (Rybelsus) 14 mg PO DAILY DM 02/05/23 [History Confirmed 07/09/24] alprazolam 0.5 mg tablet 0.5 mg PO Q8H PRN Anxiety 06/07/23 [History Confirmed 08/09/24] buspirone 15 mg tablet 15 mg PO BID 06/07/23 [History Confirmed 08/09/24] losartan 100 mg tablet 100 mg PO DAILY 08/18/23 [History Confirmed 08/09/24] propranolol 80 mg capsule,24 hr,extended release 80 mg PO DAILY 07/24/23 [History Confirmed 07/09/24] ertapenem 1 gram solution for injection 1 g IV Q24H 8 days #8 ea 07/13/24 [Rx] sodium chloride 0.9 % (flush) (Normal Saline Flush 0.9 % injection syringe) 10 ml IV DAILY 8 days #80 mL 07/13/24 [Rx] tamsulosin 0.4 mg capsule 0.4 mg PO DAILY 30 days #30 caps 07/13/24 [Rx Confirmed 08/09/24] Allergy/Medication Comments: Please note that the home medication list may contain elements that are not accurate. This list of home medications will be updated during the hospital stay as more information becomes available. Exam Physical Exam Vital Signs: Temp Pulse Resp BP Pulse Ox O2 Del Method 99.8 F H 102 H 18 153/81 H 97 Room Air 08/09/24 20:05 08/09/24 20:30 08/09/24 20:30 08/09/24 20:30 08/09/24 20:30 08/09/24 20:30 Narrative: GEN: Awake, alert, oriented x 3. Head: Normal Cephalic, Atraumatic. Eyes: Conjunctiva and sclera clear bilaterally. Nose: External nose and nares normal bilaterally. Mouth: Lips and tongue normal. Neck: No JVD. No thyromegaly. No lymphadenopathy. Lungs: Clear to auscultation bilaterally, no wheezing, no crackles. Heart: Mildly tachycardic on the monitor but with a regular rhythm, no murmurs,rubs, or gallops. Abdomen: Patient complains of pain in the left costovertebral angle and left flank. I cannot reproduce any of this. Abdomen is protuberant. Bowel sounds are mildly hypoactive. No acute peritoneal signs. Extremities: No swelling or cords in the calves bilaterally, no edema in the ankles bilaterally. Skin: No systemic rashes or lesions. Psychiatric: Frustrated. Abrupt. Not cooperative with the examination of the interview. Neuro: Moves all 4 extremities well so I do not see any focal or lateralizing deficits. Results - Hospitalist H&P Lab Results Labs: Laboratory Last Values Corrected WBC 14.1 X10E3/uL (4.1-10.5) H 08/09/24 19:07 Uncorrected WBC Count 14.1 x10E3/uL (4.1-10.5) H 08/09/24 19:07 RBC 4.73 X10E6/uL (3.90-5.60) 08/09/24 19:07 Hgb 14.4 g/dL (13.0-17.0) 08/09/24 19:07 Hct 43.4 % (38.8-50.0) 08/09/24 19:07 MCV 91.7 fl (83.5-101) 08/09/24 19:07 MCH 30.4 pg (27.5-35.2) 08/09/24 19:07 MCHC 33.1 g/dL (32.5-35.6) 08/09/24 19:07 RDW 15.5 % (12.0-14.8) H 08/09/24 19:07 Plt Count 219 x10E3/uL (150-450) 08/09/24 19:07 MPV 8.4 fl (6.6-10.1) 08/09/24 19:07 Neut % (Auto) 80.3 % (.) 08/09/24 19:07 Lymph % (Auto) 9.6 % (.) 08/09/24 19:07 [place] % (Auto) 9.6 % (.) 08/09/24 19:07 Eos % (Auto) 0.3 % (.) 08/09/24 19:07 Baso % (Auto) 0.2 % (.) 08/09/24 19:07 Nucleat RBC Rel Count 0.1 /100 WBC (0-0.5) 08/09/24 19:07 Neut # (Auto) 11.3 x10E3/uL (1.8-7.7) H 08/09/24 19:07 Lymph # (Auto) 1.4 x10E3/uL (1.00-4.8) 08/09/24 19:07 [place] # (Auto) 1.3 x10E3/uL (0.0-0.8) H 08/09/24 19:07 Eos # (Auto) 0.0 x10E3/uL (0.0-0.45) 08/09/24 19:07 Baso # (Auto) 0.0 x10E3/uL (0.0-0.2) 08/09/24 19:07 Monocyte Dist Width 17.70 % (0.00-20.00) 08/09/24 19:07 PHA Creatinine Clear 54.75 08/09/24 19:07 Sodium 137 mmol/L (136-145) 08/09/24 19:07 Potassium 4.3 mmol/L (3.5-5.1) 08/09/24 19:07 Chloride 107 mmol/L (98-107) 08/09/24 19:07 Carbon Dioxide 18.3 mmol/L (21.0-31.0) L 08/09/24 19:07 Anion Gap 16.0 mEq/L (6.0-15.0) H 08/09/24 19:07 BUN 25 mg/dL (7-25) 08/09/24 19:07 Creatinine 1.64 mg/dL (0.70-1.30) H 08/09/24 19:07 Est GFR (CKD-EPI) 46.132 mL/Min 08/09/24 19:07 Glucose 189 mg/dL (70-100) H 08/09/24 19:07 Lactic Acid 2.1 mmol/L (0.5-2.2) H* 08/09/24 19:07 Calcium 9.8 mg/dL (8.6-10.3) 08/09/24 19:07 Total Bilirubin 0.6 mg/dl (0.3-1.0) 08/09/24 19:07 AST 15 U/L (13-39) 08/09/24 19:07 ALT 16 U/L (7-52) 08/09/24 19:07 Alkaline Phosphatase 134 U/L (34-104) H 08/09/24 19:07 Total Protein 8.0 gm/dL (6.4-8.9) 08/09/24 19:07 Albumin 4.3 gm/dL (3.5-5.7) 08/09/24 19:07 Globulin 3.7 gm/dL 08/09/24 19:07 Albumin/Globulin Ratio 1.2 08/09/24 19:07 Urine Color Light-yellow (Yellow) 08/09/24 18:25 Urine Appearance Cloudy (Clear) A 08/09/24 18:25 Urine pH 5.5 (5.0-9.0) 08/09/24 18:25 Ur Specific [place] 1.019 (1.001-1.030) 08/09/24 18: Urine Protein 20 mg/dL (Negative) H 08/09/24 18:25 Urine Glucose (UA) >=1000 mg/dL (Normal) H 08/09/24 18:25 Urine Ketones Negative (Negative) 08/09/24 18:25 Urine Occult Blood 1+ (Negative) H 08/09/24 18:25 Urine Nitrite Negative (Negative) 08/09/24 18: Urine Bilirubin Negative (Negative) 08/09/24 18: Urine Urobilinogen Normal mg/dL (Normal) 08/09/24 18: Ur Leukocyte Esterase 4+ (Negative) H 08/09/24 18:25 Urine RBC 5-9 /HPF (0-4) H 08/09/24 18:25 Urine WBC Innumerable /HPF (0-4) H 08/09/24 18:25 Urine WBC Clumps Many /LPF (None Seen) H 08/09/24 18:25 Ur Squamous Epith Cells 1-2 /HPF (0-2) 08/09/24 18:25 Urine Bacteria 1+ /HPF (None Seen) H 08/09/24 18: Hyaline Casts None /LPF (0-8) 08/09/24 18:25 Urine Mucus Rare /LPF 08/09/24 18:25 Assessment & Plan Assessment/Plan (1) UTI (urinary tract infection): (2) Bacterial cystitis: (3) CKD (chronic kidney disease): (4) BPH (benign prostatic hyperplasia): (5) Diabetes: (6) History of CVA (cerebrovascular accident): (7) Hyperlipidemia: (8) Hypertension: Plan Assessment: Acute bacterial cystitis/complicated urinary tract infection, which may be recurrent, with ESBL E. coli UTI back about 1 month ago on July 09. With the intensity of his symptoms and fevers and chills and rigors and tachycardia he meets diagnostic criteria for sepsis/early sepsis and likely has bacteremia. Chronic kidney disease stage III, currently stable. Diabetes mellitus type 2, with hyperglycemia, and use of Invokana, which may be causing glucosuria which is setting him up for recurrent urinary tract infections. Hypertension. Dyslipidemia. Old strokes in the past. Prostate hypertrophy. Plan: Hospital admission, inpatient status. Continue IV ertapenem, dose adjusted by pharmacy for his renal clearance. Awaiting urine culture results. Await blood culture results. Recheck BMP daily to make sure that chronic kidney disease stays stable. I would pause the use of Invokana in a person with complicated and recurrent bacterial urinary tract infections until they are fully resolved. Check hemoglobin A1c. Sliding scale insulin level 3. DVT prophylaxis with 40 mg of Lovenox subcutaneously daily. IP vs OBS Justification Based on differential dx, clinical care plan, and risk of adverse events, if untreated, in my clinical judgement this patient requires an acute care setting as: INPATIENT because of an expectation ofan over 2 midnight stay. Estimated length of stay (# of days): 4 Documented By: Amrik Rojas, 2211 Signed By: <Electronically signed by Amrik Rojas, > 08/09/242219 [facility] [employer] Work Phone: History general Narrative - Reported* Type Description Date Medical History Hypertension Medical HistoryhyperlipidemiaMedical Historydiabetes mallitusSurgical History KidneysSurgical HistoryACDF-Doctor BraunHospitalization HistorySee Above Hospitalization HistoryTIA, HTN, HPL, DMII/03/10 [facility] Other Hospital Discharge instructions Additional Instructions 1. No driving if taking narcotic pain medication. 2. No lifting more than 20 pounds for 3 weeks. 3. After 2 days, can remove top dressing and may shower.[facility] [employer] Work Phone: Hospital Discharge instructions Additional Instructions If your symptoms return/worsen or you develop any further concerns or symptoms please see your doctor or return to the emergency department immediately.[facility] [employer] Work Phone: Hospital Discharge instructions No data available for this section [facility] InstructionsNot on filedocumented in this encounter [facility] Surveillance SystemInstructionsNot on filedocumented in this encounter [facility]Medic[employer] Media SystemInstructionsNot on filedocumented in this encounter [facility] SystemInstructionsNot on filedocumented in this encounter [facility] SystemInstructionsNot on filedocumented in this encounter [facility] SystemInstructionsNot on filedocumented in this encounter [facility] SystemInstructionsNot on filedocumented in this encounter [facility] SystemProgress note No data available for this section [facility] Progress note Author Maurice Foote [place] HospitalNote Date/TimeMarch 2024 4:[place] [address] Hospitalist Progress Note Signed Patient: Rod Mathias MR#: [id number] : 1960 Acct:[id number] Age/Sex: 64 / M Adm Date: 5 Loc: Room: [address] [place] [address] Type: ADM INOo Attending Dr: Maurice Foote MD Copies to: ~ Date of Service: 12/30/2024 Subjective Subjective Narrative: Patient was lying down in the bed comfortably but complained that he was feelingshort of breath. Healso mentions no improvement in his neurological symptoms. Exam Physical Exam Vital Signs: Temp Pulse Resp BP Pulse Ox O2 Del Method 97.5 F L 63 16 112/67 95 Room Air 12/30/24 08:00 12/30/24 12:00 12/30/24 12:00 12/30/24 12:00 12/30/24 12:00 12/30/24 12:00 Narrative: General: Awake alert, no acute distress HEENT: head atraumatic, normocephalic, moist mucous membranes Neck: supple no masses, no lymphadenopathy CVS: regular rate and rhythm, no murmurs or gallops Respiratory: clear to auscultation bilaterally, no wheezing or crackles, symmetric expansion GI: soft, nondistended, nontender, positive bowel sounds with no organomegaly Extremity: moves all extremities, no restrictions of movements, no calf tenderness, right sided weakness in the right upper and lower extremity. No diminished sensation Neuro: AOx3, CN II-VII intact. Moves all extremities in all planes of motion. Skin: intact no rashes or lesions Objective Lab Results 12/30/24 06:54 12/30/24 06:41 Microbiology Results Microbiology 12/29/24 16:15 Nasopharyngeal SARS-CoV-2, Influenza & RSV (PCR) - Final Meds Allergies and Active Meds Allergies atb Allergy (Uncoded 08/09/24 18:19) bladder problem Active Meds: Active Medications Generic Name Dose Route Start Last Admin Trade Name Freq PRN Reason Stop Dose Admin Hydrocodone Bitart/Acetaminophen 1 - 2 tab 12/29/24 17:10 12/30/24 13:48 Hydrocodone/Acetaminophen 5-325 Mg Tablet PO 1 tab Q4H PRN Administration Pain Alprazolam 0.5 mg 12/29/24 17:10 12/30/24 08:42 Alprazolam 0.5 Mg Tablet PO 06/27/25 17:09 0.5 mg Q8H PRN Administration Anxiety Aspirin 81 mg 12/30/24 09:00 12/30/24 08:41 Aspirin 81 Mg Tablet.Dr PO 12/30/25 08:59 81 mg QAM PEEWEE Administration Atorvastatin Calcium 40 mg 12/29/24 21:00 12/29/24 21:55 Atorvastatin 40 Mg Tablet PO 12/29/25 20:59 40 mg QPM PEEWEE Administration Buspirone HCl 15 mg 12/29/24 21:00 12/30/24 08:41 Buspirone 15 Mg Tablet PO 12/29/25 20:59 15 mg BID PEEWEE Administration Ergocalciferol 1,250 mcg 01/03/25 09:00 Ergocalciferol 1,250 Mcg (50,000 Units) Capsule PO 01/03/26 08:59 Q7D PEEWEE Semaglutide [ 14 mg 12/30/24 09:00 12/30/24 11:02 Rybelsus] 7 Mg PO 12/30/25 08:59 Not Given Tablet DAILY PEEWEE Propranolol HCl 80 mg 12/30/24 09:00 12/30/24 08:41 Propranolol Sa.24hr 80 Mg Capsule PO 12/30/25 08:59 80 mg DAILY PEEWEE Administration Saccharomyces Boulardii 250 mg 12/30/24 08:00 12/30/24 08:41 Saccharomyces Boulardii 250 Mg Capsule PO 12/30/25 07:59 250 mg BID.WITH.MEALS PEEWEE Administration Sodium Chloride 0 ml 12/29/24 15:16 Sodium Chloride 0.9 % 10 Ml Syringe IV-PUSH 12/29/25 15:15 PRN PRN Flush A&P - Hospitalist Assessment/Plan (1) Right sided weakness: Plan This is a 66-year-old male with significant past medical history of ischemic stroke on 2018 with chronic right-sided deficit, BPH, restless leg syndrome, CKD, diabetes mellitus type 2, hyperlipidemia, hypertension presented with a chief complaints of worsening right-sided weakness with he noticed yesterday morning after waking up. He also complains of having new numbness in the right lower face. Patient denies any headache any nasal congestion sore throat neck rigidity, chest pain shortness of breath nausea vomiting diarrhea fever or chills or dysuria urgency or frequency. Patient also got 1 dose of Lasix in the ED. in the ED he was hemodynamically stable lab work shows WBC of 13, hemoglobin 14.5, INR of 1 normal electrolytes, creatinine of 1.74 and normal liver enzymes,troponin of 4 urinetox positive for opioids and benzodiazepines. Head CT showed no acute findings CTA of the head shows no occlusion critical stenosis ordissection of the extracranial or intracranial circulation. Thyroid nodule measuring 14 mm. MRI of the brain was done on December 29, 2024 which shows No acute intracranial process. Mild chronic small vessel ischemic changes. Plan: -Admit to regular nursing floor under observation -Continuous telemetry -Will restart his antihypertensive medication with no signs of acute ischemic stroke. -Continue POA medication-Xanax as needed, BuSpar, vitamin D2, propranolol, semaglutide and tamsulosin questionable -Neurologist consulted-appreciate recommendation-recommended MRI of the cervicalspine and TSH and vitamin B12 -PT/OT -Follow-up morning labs Heart healthy diet - Documented By: Maurice Foote MD 12/30/24 1605 Signed By: <Electronically signed by Maurice Foote MD> 12/30/24 1602 [facility] Work Phone: Summary Purpose Family History Relationship Condition Age at Onset Recorded Date/T bailey brother Diabetes mellitus Unknown Not SpecifiedHypertensionUnknown Relationship Condition Age at Onset Recorded Date/T bailey brother Diabetes mellitus Unknown Not SpecifiedHypertensionUnknownfatherMedical history unknownUnknown Relationship Condition Age at Onset Recorded Date/T bailey brother Diabetes mellitus Unknown motherHypertensionUnknownfatherMedical history unknownUnknown Advance Directives Advance Directive Response Recorded Date/ Time Advance Directives No November 04, 2018 10:35pm Advance Directive Response Recorded Date/ Time Advance Directives No November 04, 2018 9:35pm Reason for Referral Reason TLSO Diagnosis 1 Compression fracture of L1 vertebra, initial encounter (S32.010A) Referral Organization [facility] u[facility]gery Referring Provider First Name Mart Referring Provider Last Name Carl Referring Provider Specialty Neurologica l Surgery Referred Organization [facility]. Referred Address [address] [place], [place],[address] Referred Provider Specialty DME Referral Priority Routine [...] Mass Umbilical Hernia, Right Shoulder Mass dizzy confusedReason for VisitAltered mental status Chest pain Confusion Dizziness Headache Speaking difficulty Chief Complaint Umbilical Hernia, Ri ght Shoulder Mass Umbilical Hernia, Right Shoulder Mass Umbilical Hernia, Right Shoulder Mass dizzy confused DJDReason for VisitAltered mental status Chest pain Confusion Dizziness Headache Speaking difficulty TIA (transient ischemic attack) Chief Complaint dizzy confused DJD Kidney stonesReason for VisitAltered mental status Chest pain Confusion Dizziness Headache Speaking difficulty TIA (transient ischemic attack) Chief Complaint dizzy confused DJD DJD Kidney stonesReason for VisitAltered mental status Chest pain Confusion Dizziness Headache Speaking difficulty TIA (transient ischemic attack) Chief Complaint sob n20.0Reason for VisitChest pain Diabetes mellitus, type II History of TIAs Hyperlipidemia Hypertension Chief Complaint Kidney Stone SyncopeReason for VisitAltered mental status Syncope TIA (transient ischemic attack) Chief Complaint Kidney Stone Syncope amsReason for VisitAltered mental status Syncope TIA (transient ischemic attack) Chief Complaint Kidney Stone Kidney Stone Syncope amsReason for VisitAltered mental status Syncope TIA (transient ischemic attack) Chief Complaint Fever, N/V, Dizzy, B ack pain, Unable to urinate Fever, N/V, Dizzy, Back pain, Unable to urinateReason for VisitAKI (acute kidney injury) BPH (benign prostatic hyperplasia) Infection due to ESBL-producing Escherichia coli Sepsis UTI (urinary tract infection) Chief Complaint Screening Fever, N/V, Dizzy, Back pain, Unable to urinate Fever, N/V, Dizzy, Back pain, Unable to urinateReason for VisitAKI (acute kidney injury) BPH (benign prostatic hyperplasia) Infection due to ESBL-producing Escherichia coli Sepsis UTI (urinary tract infection) Chief Complaint Screening Fever, N/V, Dizzy, Back pain, Unable to urinate Fever, N/V, Dizzy, Back pain, Unable to urinate dizzy, constipation, frequent urination and burninReason for VisitAKI (acute kidney injury) BPH (benign prostatic hyperplasia) Infection due to ESBL-producing Escherichia coli UTI (urinary tract infection) Sepsis Acute pyelonephritis Bacterial cystitis BPH (benign prostatic hyperplasia) CKD (chronic kidney disease) Diabetes History of CVA (cerebrovascular accident) Hyperlipidemia Hypertension UTI (urinary tract infection) Chief Complaint Admit Date confusion December 29, 2024 4:4 6pm Reason for Visit Admit Date Right sided weakness December 29, 2024 4: 46pm Right-sided sensory deficit present [facility] 2024 4:46pm Chief Complaint Admit Date confusion December 29, 2024 4:4 6pm confusion December 30, 2024 2:2 7pm Reason for Visit Admit Date WILD (acute kidney injury) December 29 4:46pm B12 deficiency December 29, 2024 4:4 6pm Impaired mobility December 29, 2024 4:4 6pm Right sided weakness December 29, 2024 4: 46pm Right-sided sensory deficit present [facility] 2024 4:46pm Weakness December 29, 2024 4:4 6pm Chief Complaint * ROD MATHIAS is being seen for mpx results/[facility] [place] [facility]. * Patient is a 62-year-old gentleman here for follow-up following recent stress testing. He was seen in consultation in the hospital in January, ruled out for AL, had low CATHERINE risk score; has underlying [...] section and content) DATE CREATED AUTHOR 09/04/2021 [facility] DATE CREATED AUTHOR AUTHOR'S ORGANIZ ATION 11/02/2022 [facility] DATE CREATED AUTHOR AUTHOR'S ORGANIZ ATION 04/12/2023 [employer] DATE CREATED AUTHOR AUTHOR'S ORGANIZ ATION 04/27/2023 [facility] DATE CREATED AUTHOR AUTHOR'S ORGANIZ ATION 08/02/2023 [facility] DATE CREATED AUTHOR AUTHOR'S ORGANIZ ATION 09/05/2024 [facility] DATE CREATED AUTHOR AUTHOR'S ORGANIZ ATION 01/01/2025 [facility] DATE CREATED AUTHOR AUTHOR'S ORGANIZ ATION 02/08/2025 [facility] DATE CREATED AUTHOR AUTHOR'S ORGANIZ ATION 07/27/2025 [facility] REASON FOR VISIT (unrecogniz ed section and content) ReasonCommentsHospital Follow-upReasonCommentsMed RefillReasonOnset DateComments Med [id number] Follow-upHe is currently getting IV E[facility] x [facility] [place] He states he just does not feel good. Fatigue.Weight GainWeight gain of 6 pounds since last office visit on 07/22/2024. He denies changes in appetite. He denies edema. Bowel movements are normal.ReasonComments3 [facility]: hydronephrosisReasonOnset DateCommentsMed Pvqaef6710/09/20248736IosrwhByzfzdem3 Month Follow-up of Chronic ConditionsPt is being seen for management of chronic pain. Pt will be scheduled for cystoscopy with Dr. Heath.DiabetesHe has been off Invokana for a few months due to S/E of UTIReasonOnset DateCommentsMed Refill 11/10/2024ReasonOnset DateCommentsMed Dljtrf4711/13/2024ReasonCommentsOutpatient InfusionInvanzReasonCommentsOutpatient InfusionErtapenemReasonCommentsOutpatient InfusioninvanzReasonCommentsOutpatient InfusionReasonCommentsOutpatient Infusion Invanz with PICC dressing changeReasonOnset DateCommentsMed Kbtftr2812/11/2024 ReasonOnset DateCommentsMed Bzrcav2412/15/2024ReasonOnset DateCommentsMed Refill 02/08/20257702VdlcwaDqmmayun9 month follow-up of chronic conditionsReview lab drawn 02/04/2025. Patient continues with fatigue and anxiety. He is not sure if he is taking Cymbalta, Propranolol, GlimepirideReasonOnset DateCommentsMed Refill 02/14/2025ReasonOnset DateCommentsMed Vewihn4603/17/2025ReasonOnset DateComments Med Bjdtsa5004/16/2025ReasonOnset DateCommentsMed Cwlogl6404/19/2025ReasonOnset Date CommentsMed Aoguhz5105/14/2025ReasonOnset DateCommentsMed Iznarn8705/16/2025Reason Onset DateCommentsMed Rrcepr0805/15/2025ReasonOnset DateCommentsMed Refill 06/11/2025ReasonOnset DateCommentsMed Qklsjp3407/13/2025ReasonOnset DateComments Med Avpxfo3208/10/2025ReasonOnset DateCommentsMed Sdalsg7008/12/2025 Care Team (unrecognized sect ion and content) Team Status: Active Member Role Status Dates Ganga Hernandez MD Primary Care Provider Active Team Status: Inactive Member Role Status Dates Ganga Hernandez MD Primary Care Provider Active St art: December 29, 2024 End: December 31Gomez Murphy ProviderActiveStart: December 29, 2024 End: December 31Iglesia Gold Provider, Attending ProviderActive Start: December 29, 2024 End: December 31vinnie Rose DOOther ProviderActiveStart: December 29, 2024 End: December 31, 2024Kiesha Mccartney ProviderActiveStart: December 29, 2024 End: December 31, 2024Kiesha Duarte ProviderActiveStart: December 29, 2024 End: December 31, 2024Lauriea Remi , APRNOther ProviderActiveStart: December 29, 2024 End: December 31enediimelda Corado Jr, DOOther ProviderActiveStart: December 29, 2024 End: December 31Kiesha Perez ProviderActiveStart: December 29, 2024 End: December 31, 2024 Team Status: Active Member Role Status Dates Ganga Hernandez MD Primary Care Provider Active St art: December 30, 2024 Gomez Marcelo ProviderActiveStart: December 30, 2024 Iglesia Patel Provider, Other ProviderActiveStart: December 30, 2024 Mikey Rose DOOther ProviderActiveStart: December 30, 2024 Kiesha Mccartney ProviderActiveStart: December 30, 2024 Kiesha Duarte ProviderActiveStart: December 30, 2024 Kandyana luisa Khalil , APRNOther ProviderActiveStart: December 30, 2024 Rotanimelda Corado Jr, DOOther ProviderActiveStart: December 30, 2024 Amrit Fleming MDAttending Provider, Other ProviderActiveStart: December 30, 2024 Team Status: Active Member Role Status Dates Ganga Hernandez MD Primary Care Provider Active St art: December 29, 2024 oGmez Marcelo ProviderActiveStart: December 29, 2024 Iglesia Patel Provider, Attending ProviderActiveStart: December 29, 2024 Team Status: Inactive Member Role Status Dates Ganga Hernandez MD Primary Care Provider Active St art: May 19, 2024 End: May 19angel Mccormick , DOAttending ProviderActiveStart: May 19, 2024 End: May 19, 2024 Team Status: Active Member Role Status Eloy Hernandez MD Primary Care Provider Active St art: June 05, 2024 Joey Solorio DOAttending ProviderActiveStart: June 05, 2024 Team Status: Inactive Member Role Status Dates Ganga Hernandez MD Primary Care Provider Active St art: July 09, 2024 End: July 14ourKhris Wall ProviderActiveStart: July 09, 2024 End: July 14ndIglesia Lemon ProviderActiveStart: July 09, 2024 End: July 14Kiesha Gillespie ProviderActiveStart: July 09, 2024 End: July 14, 2024Mark Anthony Heath MDOther ProviderActiveStart: July 09, 2024 End: July 14, 2024Rina Henry MDOther ProviderActiveStart: July 09, 2024 End: July 14, 2024Perez Rivera MDOther ProviderActiveStart: July 09, 2024 End: July 14álvaro Massey MDOther ProviderActiveStart: July 09, 2024 End: July 14oleg Coughlin MDOther ProviderActiveStart: July 09, 2024 End: July 14, 2024Kiesha Jaramillo ProviderActiveStart: July 09, 2024 End: July 14sagrario Mabry NP-COther ProviderActiveStart: July 09, 2024 End: July 14JULIANE Akhtar-BCOther ProviderActiveStart: July 09, 2024 End: July 14, 2024Talat Ocampo ProviderActiveStart: July 09, 2024 End: July 14, 2024Shaniqua Castro MDOther ProviderActiveStart: July 09, 2024 End: July 14, 2024 Team Status: Active Member Role Status Dates Ganga Hernandez MD Primary Care Provider Active St art: July 13, 2024 Khris Mckeon ProviderActiveStart: July 13, 2024 Sen Neri , MDAdmit ProviderActiveStart: July 13, 2024 Norris Vincent MDOther ProviderActiveStart: July 13, 2024 Mark Anthony Heath MDOther ProviderActiveStart: July 13, 2024 Rina Henry MDOther ProviderActiveStart: July 13, 2024 Perez Rivera MDOther ProviderActiveStart: July 13, 2024 Norris Massey MDOther ProviderActiveStart: July 13, 2024 Hao Coughlin MDOther ProviderActiveStart: July 13, 2024 Kevan Mckee MDOther ProviderActiveStart: July 13, 2024 Cynthia Mabry , NICKEL PLATER-COther ProviderActiveStart: July 13, 2024 VIC RomanP-BCOther ProviderActiveStart: July 13, 2024 Jonnie Wright MDOther ProviderActiveStart: July 13, 2024 Shaniqua Castro MDAttending Provider, Other ProviderActiveStart: July 13, 2024 Team Status: Inactive Member Role Status Dates Ganga Hernandez MD Primary Care Provider Active Talat Panchal ProviderActive Team Status: Inactive Member Role Status [facility] Primary Care Provider Active Holly Elias Jr ProviderActive Team Status: Inactive Member Role Status [facility] Primary Care Provider Active Xander Parr ProviderActive Team Status: Inactive Member Role Status [facility] Primary Care Provider Active Talat Anderson ProviderActive Team Status: Inactive Member Role Status Dates Ganga Hrenandez MD Primary Care Provider Active Talat Tellez ProviderActive Team Status: Active Member Role Status Dates Ganga Hernandez MD Primary Care Provider Active Xander Tao ProviderActiveKatammy Hutchinson , DO RESActiveMarwan Wassouf , MDAdmit Provider, Attending ProviderActive Team Status: Inactive Member Role Status Eloy Hernandez MD Primary Care Provider Active Yaw Taorabhi ProviderActiveKatammy Hutchinson , DO RESActiveMarwan Wassouf , MDAdmit Provider, Attending ProviderActiveAdam M Kapler , DOOther ProviderActive Team Status: Inactive Member Role Status Eloy Hernandez MD Primary Care Provider Active Terell Amor Jr, DOAttending ProviderActive Team Status: Inactive Member Role Status Eloy Hernandez MD Primary Care Provider Active Deniz Lacey MDEmergency ProviderActiveRufarhana Bowers , MDAdmit Provider, Attending ProviderActiveIngrid Evans , MARIA EUGENIAOther ProviderActiveW Juancarlos Jefferson , DOOther ProviderActiveNilo Roach MDOther ProviderActiveWicolt Justin MDOther ProviderActiveMojay Hopson MDOther ProviderActive Kenny Alexander MDOther ProviderActiveDonna Ortiz Lacey APRNOther ProviderActiveSarita Johnson MDOther ProviderActiveMohammed Justin Do MD Other ProviderActiveTatrev Hamilton MDOther ProviderActiveCarol Thomas Martinez , [facility]- Other ProviderActiveErica Jean Claude Sandoval MDOther ProviderActive Team Status: Inactive Member Role Status Dates César Arreaga , Emergency Provider Active Harriet King Care ProviderActiveMarmelchor Bowen , MDAdmit Provider, Attending ProviderActiveMikey Rose , DOOther ProviderActive Team Status: Inactive Member Role Status Eloy Hernandez MD Primary Care Provider Active Xander Casillas ProviderActiveTeam MemberRelationshipSpecialty Start DateEnd Date Ganga Hernandez MD [address] [place] [address] PCP - GeneralInternal Medicine04/29/23 Ganga Hernandez MD [address] [place] [address] PCP - ACO Reach04/19/24 Ganga Hernandez MD [address] [place] [address] PCP - [place] CO01/20/24 Jeanne Perdue LSW Social WorkerFamily Xclslxxw46/12/23 Mart Henry MD [address] [facility] [place] [address] Referring PhysicianNeurosurgery02/20/24 Jr. Terell Amor DO [address] [place] [address] Referring PhysicianOrthopaedic Surgery02/20/24 Mark Anthony Heath MD [address] [facility] [place] [address] Referring PhysicianUrology06/17/24 [facility] Ophthalmology02/20/24 Team Status: Active Member Role Status Dates Ganga Hernandez MD Primary Care Provider Active St art: August 09, 2024 Shaniqua Duarte MDEmergency ProviderActiveStart: August 09, 2024 Amrik Rojas DOAdmgiovana Provider, Attending ProviderActiveStart: August 09, 2024 Team MemberRelationshipSpecialtyStart DateEnd Date Ganga Hernandez MD [address] [place] [address] PCP - GeneralInternal Medicine04/29/23 Ganga Hernandez MD [address] [place] [address] PCP - ACO Reach04/19/24 Ganga Hernandez MD [address] [place] [address] PCP - [place] CO01/20/24 Jeanne Perdue LSW Social WorkerFabrooks hospital Rmamahop15/12/23 Mart Henry MD Referring PhysicianNeurosurgery02/20/24 Jr. Terell Amor DO [address] [place] [address] Referring PhysicianOrthopaedic Surgery02/20/24 Mark Anthony Heath MD [address] [facility] [place] [address] Referring PhysicianUrology06/17/24 Eye [facility] Ophthalmology02/20/24 Team Status: Inactive Member Role Status Dates Ganga Hernandez MD Primary Care Provider Active St art: August 09, 2024 End: August 14, 2024Micsonia Duarte MDEmergency ProviderActiveStart: August 09, 2024 End: August 14, 2024Amrik Rojas DOAdmgiovana ProviderActiveStart: August 09, 2024 End: August 14, 2024Taqueria Cadena MDAttending ProviderActiveStart: August 09, 2024 End: August 14, 2024Team MemberRelationshipSpecialtyStart DateEnd Date Ganga Hernandez MD [address] [place] [address] PCP - GeneralInternal Medicine04/29/23 Ganga Hernandez MD [address] [facility] [address] [place] [address] PCP - ACO Reach04/19/24 Ganga Hernandez MD [address] [facility] [address] [place] [address] PCP - Paauilo MA01/20/24 Jeanne Perdue LSW Social WorkerFamily Dxzpslbf88/12/23 Mart Henry MD Referring PhysicianNeurosurgery02/20/24 Jr. Terell Amor DO [address] [facility] [address] [place] [address] Referring PhysicianOrthopaedic Surgery02/20/24 Mark Anthony Heath MD [address] [facility] [place] [address] Referring PhysicianUrology06/17/24 [facility] Ophthalmology02/20/24Team MemberRelationshipSpecialtyStgreen city DateEnd Ganga Hernandez MD [address] [place] [address] PCP - GeneralInternal Medicine04/29/23 Ganga Hernandez MD [address] [place] [address] PCP - ACO Reach04/19/24 Ganga Hernandez MD [address] [place] [address] PCP - Paauilo CO01/20/24 Jeanne Perdue LSW Social WorkerFamily Lbdxokbs47/12/23 Mart Henry MD Referring PhysicianNeurosurgery02/20/24 Jr. Terell Amor DO [address] [facility] [address] [place] [address] Referring PhysicianOrthopaedic Surgery02/20/24 Mark Anthony Heath MD [address] [place] [address] Referring PhysicianUrology06/17/24 [facility] Ophthalmology02/20/24Team MemberRelationshipSpecialtyMorristown [facility] Ganga Hernandez MD [address] [place] [address] PCP - GeneralInternal Medicine04/29/23 Ganga Hernandez MD [address] [facility] [address] [place] [address] PCP - ACO Reach04/19/24 Ganga Hernandez MD [address] [facility] [address] [place] [address] PCP - Paauilo CO01/20/24 Jeanne Perdue, [facility] Social WorkerFacoly Yhxycbfc85/12/23 Mart Henry MD [address] [place] [address], [address] [place] [address] Referring PhysicianNeurosurgery02/20/24 Jr. Terell Amor DO [address] [facility] [address] [place] [address] Referring PhysicianOrthopaedic Surgery02/20/24 Mark Anthony Heath MD [address] [place] [address] Referring PhysicianUrology06/17/24 [facility] Ophthalmology02/20/24Team MemberRelationshipSpecialtyMorristown [facility] Date Ganga Hernandez MD [address] [place] [address] PCP - GeneralInternal Medicine04/29/23 Ganga Hernandez MD [address] [place] [address] PCP - ACO [facility]04/19/24 Ganga Hernandez MD [address] [place] [address] PCP - Paauilo CO01/20/24 Jeanne Perdue [facility] Social WorkerWinchendon Hospital Wqobfkxt00/12/23 Mart Henry MD Referring PhysicianNeurosurgery02/20/24 Jr. Terell Amor DO [address] [facility] [address] [place] [address] Referring PhysicianOrthopaedic Surgery02/20/24 Mark Anthony Heath MD [address] [place] [address] Referring PhysicianUrology06/17/24 [facility] Ophthalmology02/20/24Team MemberRelationshipSpecialtyStart DateEnd Ganga Hernandez MD [address] [place] [address] PCP - GeneralInternal Medicine04/29/23 Ganga Hernandez MD [address] [place] [address] PCP - ACO Reach04/19/24 Ganga Hernandez MD [address] [place] [address] PCP - Carlos SMITH01/20/24 Jeanne Perdue LSW Social WorkerWinchendon Hospital Qnbonavg56/12/23 Mart Henry MD Referring PhysicianNeurosurgery02/20/24 Jr. Terell Amor DO [address] [facility] [address] [place] [address] Referring PhysicianOrthopaedic Surgery02/20/24 Mark Anthony Heath MD [address] [place] [address] Referring PhysicianUrology06/17/24 [facility] Ophthalmology02/20/24Team MemberRelationshipSpecialtyStart DateEnd Date Ganga Hernandez MD [address] [place] [place] [address] PCP - GeneralInternal Medicine04/29/23 Ganga Hernandez MD [address] [place] [address] PCP - ACO Reach04/19/24 Ganga Hernandez MD [address] [place] [address] PCP - Carlos SMITH01/20/24 Jeanne Perdue LSW Social WorkerFamiMemorial Hospital and Manor08/01/23 Mart Henry MD Referring PhysicianNeurosurgery02/20/24 Jr. Terell Amor DO [address] [facility] [address] [place] [address] Referring PhysicianOrthopaedic Surgery02/20/24 Mark Anthony Heath MD [address] [place] [address] Referring PhysicianUrology06/17/24 Eye [facility] Ophthalmology02/20/24Team MemberRelationshipSpecialtyStart DateEnd Yue Hernandez PA-C PCP - GeneralPhysician Assistant07/11/21Team MemberRelationshipSpecialtyStart DateEnd Yue Hernandez PA-C PCP - GeneralPhysician Assistant07/11/21Team MemberRelationshipSpecialtyStart DateCrossroads [facility]al [facility] Yue Hernandez PA-C PCP - GeneralPhysician Assistant07/11/21Team MemberRelationshipSpecialtyStart DateEnd Date Yue Hernandez PA-C PCP - GeneralPhysician Assistant07/11/21Team MemberRelationshipSpecialtyStart DateEnd [facility] Yue Hernandez PA-C PCP - GeneralPhysician Assistant07/11/21Team MemberRelationshipSpecialtyStart DateEnd Date Yue Hernandez PA-C PCP - GeneralPhysician Assistant07/11/21Team MemberRelationshipSpecialtyStart [facility] Yue Hernandez PA-C PCP - GeneralPhysician Assistant07/11/21Team MemberRelationshipSpecialtyStart [facility] Yue Hernandez PA-C PCP - GeneralPhysician Assistant07/11/21Team MemberRelationshipSpecialtyStart [facility] Yue Hernandez PA-C PCP - GeneralPhysician Assistant07/11/21Team MemberRelationshipSpecialtyStart [facility] Yue Hernandez PA-C PCP - GeneralPhysician Assistant07/11/21Team MemberRelationshipSpecialtyStart [facility] Yue Hernandez PA-C PCP - GeneralPhysician Assistant07/11/21Team MemberRelationshipSpecialtyStart [facility] Yue Hernandez PA-C PCP - GeneralPhysician Assistant07/11/21Team MemberRelationshipSpecialtyStart [facility] Yue Hernandez PA-C PCP - GeneralPhysician Assistant07/11/21Team MemberRelationshipSpecialtyStart [facility] Yue Hernandez PA-C PCP - GeneralPhysician Assistant07/11/21Team MemberRelationshipSpecialtyStart [facility] Yue Hernandez PA-C PCP - GeneralPhysician Assistant07/11/21Team MemberRelationshipSpecialtyStart [facility] Ganga Hernandez MD [address] [place] [address] PCP - GeneralInternal Medicine04/29/23 Ganga Hernandez MD [address] [facility] [address] [place], [place] [address] PCP - ACO Reach12/04/24 Jeanne Perdue LSW Social WorkerFamily Viirsoke10/12/23 Mart Henry MD [address] [place] [address], [address] [place] [address] Referring PhysicianNeurosurgery02/20/24 Jr. Terell Amor DO [address] [facility] [address] [place] [address] Referring PhysicianOrthopaedic Surgery02/20/24 Mark Anthony Heath MD [address] [place] [address] Referring PhysicianUrology06/17/24 [facility] Ophthalmology02/20/24Team MemberRelationshipSpecialtyStart [facility] Ganga Hernandez MD [address] [place] [address] PCP - GeneralInternal Medicine04/29/23 Ganga Hernandez MD [address] [facility] [address] [place] [address] PCP - ACO Reach12/04/24 Jeanne Perdue LSW Social WorkerWinchendon Hospital Cczufgxq64/12/23 Mart Henry MD [address] [place] [address], [address] [place] [address] Referring PhysicianNeurosurgery02/20/24 Jr. Terell Amor DO [address] [facility] [address] [place] [address] Referring PhysicianOrthopaedic Surgery02/20/24 Mark Anthony Heath MD [address] [place] [address] Referring PhysicianUrology06/17/24 [facility] Ophthalmology02/20/24Team MemberRelationshipSpecialtyStart DateEnd Date Ganga Hernandez MD [address] [place] [address] PCP - GeneralInternal Medicine04/29/23 Ganga Hernandez MD [address] [facility] [address] [place] [address] PCP - Paauilo CO01/20/24 Jeanne Perdue LSW Social WorkerWinchendon Hospital Ilkudsuv99/12/23 Mart Henry MD [address] [place] [address], [facility] [address] [place] [address] Referring PhysicianNeurosurgery02/20/24 Jr. Terell Amor DO [address] [facility] [address] [place] [address] Referring PhysicianOrthopaedic Surgery02/20/24 Mark Anthony Heath MD [address] [place] [address] Referring PhysicianUrology06/17/24 [facility] Ophthalmology02/20/24Team MemberRelationshipSpecialtyStart DateEnd Ganga Hernandez MD [address] [place] [address] PCP - GeneralInternal Medicine04/29/23 Ganga Hernandez MD [address] [facility] [address] [place] [address] PCP - Paauilo CO01/20/24 Jeanne Perdue LSW Social WorkerFamily Adxakzph04/12/23 Mart Henry MD [address] [place] [address], [address] [place] [address] Referring PhysicianNeurosurgery02/20/24 Jr. Terell Amor DO [address] [facility] [address] [place] [address] Referring PhysicianOrthopaedic Surgery02/20/24 Mark Anthony Heath MD [address] [place] [address] Referring PhysicianUrology06/17/24 [facility] Ophthalmology02/20/24Team MemberRelationshipSpecialtyStart End Ganga Hernandez MD [address] [place] [address] PCP - GeneralInternal Medicine04/29/23 Ganga Hernandez MD [address] [place] [address] PCP - Carlos SMITH01/20/24 Jeanne Perdue [facility] Social WorkerWinchendon Hospital Vrniwfsw77/12/23 Mart Henry MD [address] [place] [address], [address] [place] [address] Referring PhysicianNeurosurgery02/20/24 Jr. Terell Amor DO [address] [facility] [address] [place] [address] Referring PhysicianOrthopaedic Surgery02/20/24 Mark Anthony Heath MD [address] [place] [address] Referring PhysicianUrology06/17/24 [facility] Ophthalmology02/20/24Team MemberRelationshipSpecialtyStart End Ganga Hernandez MD [address] [place] [address] PCP - GeneralInternal Medicine04/29/23 Ganga Hernandez MD [address] [place] [address] PCP - Carlos SMITH01/20/24 Jeanne Perdue GOLD NIB GRINDER Social Workermily Tmdggpdk45/12/23 Mart Henry MD [address] [facility], [address] [place] [address] Referring PhysicianNeurosurgery02/20/24 Jr. Terell Amor DO [address] [facility] [address] [place] [address] Referring PhysicianOrthopaedic Surgery02/20/24 Mark Anthony Heath MD [address] [place] [place] [address] Referring PhysicianUrology06/17/24 [facility] Ophthalmology02/20/24Team MemberRelationshipSpecialtyStart DateEnd Ganga Hernandez MD [address] [place] [place] [address] PCP - GeneralInternal Medicine04/29/23 Ganga Hernandez MD [address] [facility] [address] [place] [address] PCP - Paauilo CO01/20/24 Jeanne Perdue [facility] Social WorkerUnitypoint Health-Iowa Methodist Medical Centerly Vgdapkgz95/12/23 Mart Henry MD [address] [place] [address], [address] [place] [address] Referring PhysicianNeurosurgery02/20/24 Jr. Terell Amor DO [address] [facility] [address] [place] [address] Referring PhysicianOrthopaedic Surgery02/20/24 Mark Anthony Heath MD [address] [place] [address] Referring PhysicianUrology06/17/24 [facility] Ophthalmology02/20/24Team MemberRelationshipSpecialBoston Hospital for Women Ganga Hernandez MD [address] [place] [address] PCP - GeneralInternal Medicine04/29/23 Jeanne Perdue [facility] Social WorkerWinchendon Hospital Yasogpka46/12/23 Mart Henry MD [address] [place] [address], [address] [place] [address] Referring PhysicianNeurosurgery02/20/24 Jr. Terell Amor DO [address] [place] [address] [address] [place] [address] Referring PhysicianOrthopaedic Surgery02/20/24 Mark Anthony Heath MD [address] [place] [address] Referring PhysicianUrology06/17/24 [facility] Ophthalmology02/20/24Team MemberRelationshipSpecTaraVista Behavioral Health Center Ganga Hernandez MD [address] [place] [address] PCP - GeneralInternal Medicine04/29/23 Jeanne Perdue LSW Social WorkerWinchendon Hospital Xhqkbvxx75/12/23 Mart Henry MD [address] [place] [address], [address] [place] [address] Referring PhysicianNeurosurgery02/20/24 Jr. Terell Amor DO [address] [facility] [address] [place] [address] Referring PhysicianOrthopaedic Surgery02/20/24 Mark Anthony Heath MD [address] [place] [address] Referring PhysicianUrology06/17/24 Eye [facility] Ophthalmology02/20/24Team MemberRelationshipSpecialtyStart Date Ganga Hernandez MD [address] [place] [address] PCP - GeneralInternal Medicine04/29/23 Ganga Hernandez MD [address] [facility] [address] [place] [address] PCP - Paauilo CO01/20/24 Jeanne Perdue GOLD NIB GRINDER Social WorkerFamily Jlcutyqv96/12/23 Mart Henry MD [address] [place] [address], [address] [place] [address] Referring PhysicianNeurosurgery02/20/24 Jr. Terell Amor DO [address] [facility] [address] [place] [address] Referring PhysicianOrthopaedic Surgery02/20/24 Mark Anthony Heath MD [address] [place] [address] Referring PhysicianUrology06/17/24 [facility] Ophthalmology02/20/24Team MemberRelationshipSpecialtyStart DateEnd Ganga Hernandez MD [address] [place] [address] PCP - GeneralInternal Medicine04/29/23 Ganga Hernandez MD [address] [place] [address] PCP - Paauilo CO01/20/24 Jeanne Perdue, GOLD NIB GRINDER [address] [facility] [address] [place] [address] Social WorkerFabrooks hospital Irfchpzo83/12/23 Mart Henry MD [address] [place] [address], [address] [place] [address] Referring PhysicianNeurosurgery02/20/24 Jr. Terell Amor DO [address] [facility] [address] [place] [address] Referring PhysicianOrthopaedic Surgery02/20/24 Mark Anthony Heath MD [address] [place] [address] Referring PhysicianUrology06/17/24 [facility] Ophthalmology02/20/24Team MemberRelationshipSpecialtyStart DateEnd Ganga Hernandez MD [address] [place] [address] PCP - GeneralInternal Medicine04/29/23 Ganga Hernandez MD [address] [facility] [address] [place] [address] PCP - Carlos SMITH01/20/24 Jeanne Perdue LSW [address] [place] [address] Social WorkerFacoly Pxktqrqn04/12/23 Mart Henry MD [address] [place] [address], [address] [place] [address] Referring PhysicianNeurosurgery02/20/24 Jr. Terell Amor DO [address] [facility] [address] [place] [address] Referring PhysicianOrthopaedic Surgery02/20/24 Mark Anthony Heath MD [address] [place] [address] Referring PhysicianUrology06/17/24 [facility] Ophthalmology02/20/24Team MemberRelationshipSpecialtyStart DateEnd Ganga Hernandez MD [address] [place] [address] PCP - GeneralInternal Medicine04/29/23 Ganga Hernandez MD [address] [place] [address] PCP - Carlos SMITH01/20/24 Jeanne Perdue LSW [address] [place] [address] Social WorkerFabrooks hospital Fdtgbzxn07/12/23 Mart Henry MD [address] [place] [address], [address] [place] [address] Referring PhysicianNeurosurgery02/20/24 Jr. Terell Amor DO [address] [facility] [address] [place] [address] Referring PhysicianOrthopaedic Surgery02/20/24 Mark Anthony Heath MD [address] [place] [address] Referring PhysicianUrology06/17/24 [facility] Ophthalmology02/20/24Team MemberRelationshipSpecialtyStart DateEnd Ganga Hernandez MD [address] [place] [address] PCP - GeneralInternal Medicine04/29/23 Ganga Hernandez MD [address] [place] [address] PCP - Paauilo CO01/20/24 Jeanne Perdue LSW [address] [place] [address] Social WorkerFamily Qjhzbmec89/12/23 Mart Henry MD [address] [place] [address], [address] [place] [address] Referring PhysicianNeurosurgery02/20/24 Jr. Terell Amor DO [address] [facility] [address] [place] [address] Referring PhysicianOrthopaedic Surgery02/20/24 Mark Anthony Heath MD [address] [place] [address] Referring PhysicianUrology06/17/24 Eye [facility] Ophthalmology02/20/24 FOR RECORDS PERTAINING TO PATIENTS WHO ARE [...] BE BASED ON THE PRIMARY CLINICAL RECORDS. [facility] provides no warranty or guarantee of the accuracy or completeness of information in this document.
--- OUTSIDE RECORDS SUMMARY | 2025-08-13 20:19 | XMS_ITS | Clinical Summary ---
Author Organization [employer] [facility] Address [id number] 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 Role Phone Yue Solo PA-C Primary Care Provider Unavaila ble Allergies No known active allergies Medications MedicationSigDispense QuantityRefillsLast FilledStart DateEnd DateStatus metFORMIN (GLUCOPHAGE) 1000 mg tablet Active amLODIPine (NORVASC) 5 mg tablet Take by mouth daily.Active atorvastatin (LIPITOR) 40 mg tablet TAKE 1 TABLET BY MOUTH IN THE EVENINGActive losartan (COZAAR) 100 mg tablet TAKE ONE TABLET BY MOUTH DAILYActive aspirin 81 mg Take by mouth.10/31/2020ctive multivitamin (THERAGRAN) tablet Take by mouth.10/31/2020ctive INVOKANA 100 mg tablet 1 tablet (100 mg total) in the morning.Active propranoloL (INDERAL) 80 mg tablet Take 1 tablet (80 mg total) by mouth in the morning.07/24/2023ctive semaglutide 14 mg tablet Take 1 tablet by mouth every morning before breakfast.Active omeprazole (PriLOSEC) 20 mg capsule Take 1 capsule (20 mg total) by mouth in the morning.Active glimepiride (AMARYL) 1 mg tablet Take 1 tablet (1 mg total) by mouth every morning before breakfast.Active ALPRAZolam (XANAX) 0.5 mg tablet Take 1 tablet (0.5 mg total) by mouth every 8 (eight) hours as needed for anxiety.Active HYDROcodone-acetaminophen (NORCO) 5-325 mg per tablet Take 1 tablet by mouth every 4 (four) hours as needed for pain.Active Active Problems ProblemNoted DateDiagnosed DateUTI (urinary tract infection)4PICC (peripherally inserted central catheter) flush4Disorder of sacrum 07/11/2021 Overview (07/11/2021): Added automatically from request for surgery [id number] Social History Tobacco UseTypesPacks/DayYears UsedDateSmoking Tobacco: NeverSmokeless Tobacco: NeverAlcohol UseStandard Drinks/WeekCommentsNot Currently0 (1 standard drink = 0.6 oz pure alcohol)ChildcareAnswerDate IeknugljEbxenalgoJzosnsx68/10/2019 EmploymentAnswerDate WmhluhloRymxxzsqskDpbfkhj83/10/2019Hunger ScreeningAnswer Date RecordedWithin the past 12 months we worried whether our food would run out before we got money to buy more.Never True07/23/2024Within the past 12 months the food we bought just didn't last and we didn't have money to get more.Never True07/23/2024Sex and Gender InformationValueDate RecordedSex Assigned at Not on fileLegal IbsWxcm2505/24/2015 12:41 PM EDTGender IdentityNot on fileSexual OrientationNot on file Last Filed Vital Signs Vital SignReadingTime TakenCommentsBlood Hucrpwfj951/7009/03/2024 8:57 AM EST Pgqdo422509/03/2024 8:57 AM NSDAciczuytkcp44.4 ??C (97.5 ??F)09/03/2024 8:57 AM ESTRespiratory Gmqi685511/03/2023 8:57 AM ESTOxygen Pkiujgpgme10%09/03/2024 8:57 AM ESTInhaled Oxygen Concentration--Rrysus961.9 kg (237 lb 12.8 oz)09/03/2024 8:57 AM UJLDcijbm186.3 cm (5' 10.98 )09/03/2024 8:57 AM ESTBody Mass Index33.18 09/03/2024 8:57 AM EST Plan of Treatment Health MaintenanceDue DateLast DoneCommentsDepression Qyctxguxf45/21/1970Adult BMI Follow Up Plan1976DTaP,Tdap and Td Vaccines (1 - Tdap)1977Zoster (Shingles) Vaccine (1 of 2)2008COVID-19 Vaccine ( season) , 03/23/2021, 02/23/2021Influenza Rdkrfhg3206/21/2025Fall Risk Vkksdvjta85dult BMI Bzgfqthfu29Tobacco Vagqwlacc03 Medical Devices Not on file Insurance Care Teams Team MemberRelationshipSpecialtyStart DateEnd Yue Galvan PA-C PCP - GeneralPhysician Assistant07/11/21
--- OUTSIDE RECORDS SUMMARY | 2025-08-13 20:19 | XMS_ITS | Patient Health Record ---
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 Role Phone kevinElaine Brady Primary Care Provider Allergies No Known Allergies Reason For Referral No Information Medications Medication SIG (Take, Route, Frequency, Duration) Notes Start Date End Date Status metFORMIN HCl 1000 MG Tablet TAKE 1 TABL ET BY MOUTH TWO TIMES A DAY Oral Once a day; Duration: 90 days ActiveInvokana 100 MG Tablettake 1 tablet by mouth daily BEFORE THE FIRST MEAL OF THE DAY; Duration: 30ActiveSITagliptin Phosphate 100 MG Tablet1 tablet Orally Once a day; Duration: 30 day(s)11/14/2021UnknownamLODIPine Besylate 5 MG Tablet take 1 tablet by mouth once daily; Duration: 90ActiveLosartan Potassium 100 MG Tablet1 tablet Orally Once a day; Duration: 90 daysActiveAspirin 81 MG Tablet Delayed Release1 tablet Orally Once a day; Duration: 90 daysActiveAtorvastatin Calcium 40 MG TabletTAKE 1 TABLET BY MOUTH IN THE EVENING Oral Once a day; Duration: 90 daysActive Social History Tobacco Use: Social History Observation Description Date Details (start date - stop date) Never Smoker NA - NA Social History Social DeterminantsSocial InfoQuestionAnswerNotesPRAPAREDate Completed/Updated: 05/14/2022What is your current housing situation?I have housingAre you worried about losing your housing?NoWhat is the highest level of school that you have finished?High school diploma or GEDWhat is your current work situation?Otherwise unemployed but not seeking work (ex. student, retired, disabled, unpaid primary caregiver assisted living)In the past year, have you or any family members you live with been unable to get any of the following when it was really needed? Check all that applyI do not have problems meeting my needsHas lack of transportation kept you from medical appointments, meetings, work or from getting things needed for daily living?NoHow often do you see or talk to people that you care about and feel close to? (For example: talkingto friends on the phone, visiting friends or family, going to pentecostalism or club meetings)3 to 5 times a weekHow stressed are you? Stress is when someone feels tense, nervous, anxious, or cant sleep at night because their mind is troubledA little bitIn the past year have you spent more than 2 nights in a row in a detention, group home, chcf center, orjuvenile correctional facility?NoAre you a refugee?NoWhat country are you from?[place]Do you feel physically and emotionally safe where you currently live?YesIn the past year, have you been afraid of your partner or ex-partner?NoPRAPARE Score:4GeneralSocial InfoQuestionAnswerNotesTransition of Care:ER/UC/hospital since last office visit?NoSpecialist seen since last office visit?Yes, report Dr. Carl Coleman Dr. StepanicSubstance abuse/mental health issues of patient/familyPatient -Caffeine UseAbility to understand healthcare/treatment Patient:GoodTobacco Screen:Are you a:never smokerSexual Hx:Had sex in the last 12 months (vaginal, oral, or anal)?NoHave you ever had an STD?NoSocial/Support Concerns:Patient:NoAlcohol Screening:Did you have a drink containing alcohol in the past year?Yes? How often did you have a drink containing alcohol in the past year?Monthly or less (1 point)? How many drinks did you have on a typical day when you were drinking in the past year?1 or 2 (0 points)? How often did you have six or more drinks on one occasion in the past year?Less than monthly (1 point)Szrchs6HbitebcsbswyqfJarlzvcaNfyaikpmn affecting healthPoor/Risky Behaviors:Denies-Communication Barrier:Language Barrier?:No Problems Problem Type SNOMED Code ICD Code Onset Dates Problem Status W/U Status Risk Notes Problem Fatigue (13801458) Fatigue (R53.83) ActiveconfirmedProblemBack pain (939251586)Back pain (M54.9)Activeconfirmed ProblemInsomnia (785266010)Insomnia (G47.00)ActiveconfirmedProblemObesity (302660467)Obesity (E66.9)ActiveconfirmedProblemDizziness (247320660)Dizziness (R42)ActiveconfirmedProblemType II diabetes mellitus without complication (942109056)Diabetes (E11.9)ActiveconfirmedProblemEssential hypertension (52818349)Essential hypertension (I10)ActiveconfirmedProblemEssential hypertension (35791292)Essential hypertension (I10)ActiveconfirmedProblem Impacted cerumen (56604018)Cerumen impaction (H61.20)ActiveconfirmedProblem Vertigo (151018436)Vertigo (R42)ActiveconfirmedProblemNeuropathy (177253658) Neuropathy (G62.9)ActiveconfirmedProblemRestless legs (74221938)Restless leg (G25.81)ActiveconfirmedProblemNephrolithiasis (89502492)Nephrolithiasis (N20.0) ActiveconfirmedProblemHyperlipidaemia (62270378)Hyperlipidemia, unspecified hyperlipidemia type (E78.5)ActiveconfirmedProblemCephalgia (94576929)Cephalgia (R51)ActiveconfirmedProblemType II diabetes mellitus without complication (853465490)Type 2 diabetes mellitus without complication, without long-term current use of insulin (E11.9)ActiveconfirmedProblemType II diabetes mellitus without complication (225042763)Type 2 diabetes mellitus without complication, without long-term current use of insulin (E11.9)ActiveconfirmedProblemAltered mental status (759191142)Altered mental state (R41.82)ActiveconfirmedProblem Excessive daytime sleepiness (1664145506)Excessive daytime sleepiness (G47.19) ActiveconfirmedProblemAbdominal bloating (194117521)Abdominal bloating (R14.0) ActiveconfirmedProblemBenign prostatic hypertrophy without outflow obstruction (852222692)Benign prostatic hyperplasia, unspecified whether lower urinary tract symptoms present (N40.0)ActiveconfirmedProblemBenign prostatic hypertrophy without outflow obstruction (652596336)Benign prostatic hyperplasia, unspecified whether lower urinary tract symptoms present (N40.0)ActiveconfirmedProblem Localized, primary osteoarthritis of the pelvic region and thigh (625284400) Primary osteoarthritis of left hip (M16.12)ActiveconfirmedProblemInjury of groin (79089744)Injury of groin, subsequent encounter (S39.91XD)Activeconfirmed Plan Of Treatment No Information Insurance Providers Payer Name Payer Address Payer Phone Subscriber Number Group Number Insured Name Patient Relationship to Insured Coverage Start Date Coverage End Date MEDICARE [address] [place] [address] [id number] ELI KAYEelf - patient is the [id number] 2021MEDICAID SEC TO [facility] [address] [place] [id number] ROD Self - patient is the [id number] 2020MEDICAID [facility] [address] [place] [id number], LEYDIROXIEelf - patient is the insured DENTAL MEDICAID [place] [address] [place] [address] [phone], LEYDIDOROTHYVLADISLAVelf - patient is the [id number] 2023 Medical (General) History Medical History History ICD Code Stroke DiabetesSeizuresMigrainesbilateral kidney stonesSurgical History Surgery Date(Month/Year) tonsilectomy cadaver bone/plate placement in neck04/2021Hospitalization History Reason Date(Month/Year) dizziness/headaches 03/10 Stroke 10/2018
[2025-08-13 20:46] LABS: Hematocrit 46.4 % (42.0-54.0); Hemoglobin 15.3 g/dL (14.0-18.0); Immature Granulocytes Abs Auto 0.04 10^3/uL (0.00-0.03); Immature Granulocytes Pct Auto 0.3 % (0.0-0.5); Lymphocytes Absolute Auto 2.3 10^3/uL (1.2-3.8); Mean Corpuscular HGB Conc 33.0 g/dL (29.9-35.2); Mean Corpuscular Hemoglobin 33.0 pg (25.9-34.0); Mean Corpuscular Volume 100.0 fL (80.0-94.0); Platelet Count 273 10^3/uL (150-450); Red Blood Count 4.64 10^6/uL (4.70-6.10); White Blood Count 12.1 10^3/uL (4.0-11.0)
[2025-08-13 20:50] LABS: Glucose Urine UA NEGATIVE (NEGATIVE)
[2025-08-13 20:58] LABS: Cast Seen? SEEN #/LPF (NONE SEEN); Crystals Seen? None Seen #/HPF (None Seen); Urine Culture Indicated YES-FRMC
[2025-08-13 21:02] LABS: Anion Gap 16.7
[2025-08-13 21:04] LABS: Alanine Aminotransferase 23 U/L (16-63); Albumin Globulin Ratio 0.9; Albumin Level 3.9 g/dL (3.4-5.0); Alkaline Phosphatase 138 U/L (46-116); Aspartate Amino Transferase 15 U/L (15-37); Blood Urea Nitrogen 24.0 mg/dL (7.0-18.0); Calcium 9.2 mg/dL (8.5-10.1); Carbon Dioxide 19.6 mmol/L (21.0-32.0); Chloride 103 mmol/L (98-107); Estimated GFR (African America 40 (>=60 mL/min/1.73m^2); Estimated GFR (Non-African Ame 33 (>=60 mL/min/1.73m^2); Globulin 4.3 g/dL; Glucose 158 mg/dL (74-106); Lipase 74.0 U/L (16.0-77.0); Potassium 4.3 mmol/L (3.5-5.1); Sodium 135 mmol/L (136-145); Total Protein 8.2 g/dL (6.4-8.2)
[2025-08-13 21:07] LABS: Lactate/Lactic Acid 2.3 mmol/L (0.4-2.0)
[2025-08-13] MEDS: CEPHALEXIN 500 MG CAPSULE 1000 MG PO (22:42)
== END 2025-08-13 22:48 | disposition home or self-care (01) ==
PROVIDERS: Emergency Provider Internal Medicine; PCP Internal Medicine
DX: N13.6 Pyonephrosis (principal); Z87.891 Personal history of nicotine dependence; N18.30 Chronic kidney disease, stage 3 unspecified
CPT/HCPCS: 36415; 74176; 80053; 81001; 83605; 83690; 84484; 85025; 87086; 99285